=== PATIENT | male | born 1945 | race Caucasian/White ===

== ENCOUNTER 2016-12-16 14:46 | Inpatient (IN) | END 2016-12-17 18:50 | disposition home or self-care (01) | DRG 812 | DX: D64.9 Anemia, unspecified (principal); C93.10 Chronic myelomonocytic leukemia not having achieved remission; D69.6 Thrombocytopenia, unspecified; E87.6 Hypokalemia; E86.0 Dehydration; R53.1 Weakness; E78.5 Hyperlipidemia, unspecified ==

== ENCOUNTER 2016-12-23 12:55 | Inpatient (IN) | payer BC ==
[~2016-12-23] VITALS: Ht 182.9 cm; Wt 65.8 kg
[2016-12-23 09:20] VITALS: RESP 28
[~2016-12-23 12:55] MED LIST: HYDR-902 PO; REVLIMID 10MG PO; SUCCINYLCHOLINE CHLORIDE 100 MG/5 ML SYG IV ONE
[2016-12-23] MEDS ORDERED: LENA20CA PO (14:35)
[2016-12-23] MEDS ORDERED: ALBUTEROL 0.5% (NEB) 2.5 MG/0.5 ML AMP INH STA (14:46)
[2016-12-23] MEDS ORDERED: SOD CHLORIDE 0.9% 1,000 ML IV STA (14:46)
[2016-12-23] MEDS ORDERED: AZITHROMYCIN 500MG/NS (PMX) 250 ML IVPB ONE (15:00)
[2016-12-23] MEDS ORDERED: CEFEPIME 1GM/50 ML (PMX) 50 ML IVPB ONE (15:00)
--- NOTE | 2016-12-23 15:22 | RADRPT ---
PROCEDURE: XR Chest 1 View. CLINICAL INDICATION: Shortness of breath TECHNIQUE: AP view of the chest were obtained. COMPARISON: December 16, 2016 FINDINGS: The heart size is within normal limits. Calcified atherosclerosis is noted in the aorta. The lungs are hyperexpanded. Diffuse interstitial prominence is seen in both lungs. Scattered nodules in the right upper lobe measuring up to approximately 16 mm are stable. Mild potential alveolar infiltrat es in the left lower lobe have developed. The osseous structures are osteopenic, but appear grossly intact. IMPRESSION: Calcified atherosclerosis in the aorta. Hyperexpanded lungs with stable interstitial prominence in both lungs. Interstitial prominence may be chronic. Stable nodular densities in the right upper lobe. These may reflect lung nodules. Further characte rization with CT chest is recommended. Mild potential alveolar infiltrates in the left lower lobe. RPTAT: AA .Nik Loja MD, Date Time Electronically viewed and signed by .Nik Loja MD, MD on 12/23/2016 15:22 .P/
[2016-12-23 15:47] LABS: HEMATOCRIT 23.9 % (42.0-52.0); HEMOGLOBIN 7.7 g/dl (14.0-18.0); INR 1.29; MEAN CORPUSCULAR HEMOGLOBIN 25.4 pg (29.0-33.0); MEAN CORPUSCULAR HGB CONC 32.2 g/dl (32.0-37.0); MEAN CORPUSCULAR VOLUME 78.8 fl (82.0-101.0); PROTIME 16.2 Sec (12.2-14.2); PT RATIO 1.3; RED BLOOD COUNT 3.03 10^6/ul (4.70-6.10); RED CELL DISTRIBUTION WIDTH 18.2 % (11.5-14.5); UNCORRECTED WBC 16.3 10^3/ul (4.8-10.8)
--- NOTE | 2016-12-23 15:50 | ERA ---
ER Documentation Chief Complaint Date/Time DATE: 12/23/16 TIME: 15:44 Chief Complaint sob x 5 days HPI 71-year-old man brought in by son for cough, shortness of breath, and congestion for about 1 week. Symptoms began shortly after discharge from this hospital, he was admitted over a week ago for severe anemia and thrombocytopenia. He denies dizziness or loss of consciousness, no chest pain, no calf or leg swelling, no vomiting or diarrhea. Patient has had no headaches , blurry vision, or focal deficits ROS All systems reviewed and are negative except as per history of present illness. Medications Home Meds Reported Medications Lenalidomide (REVLIMID) 20 Mg Capsule, 10 MG PO DAILY, CAP 12/23/16 Discontinued Reported Medications [Revlimid 10MG] No Conflict Check, 10 MG PO DAILY 12/16/16 Hydrocodone/Acetaminophen ([place] 10-325 Tablet) 1 Each Tablet, 1 EACH PO Q3H, TAB 12/16/16 Discontinued Scripts Metformin Hcl* (Metformin Hcl*) 500 Mg Tablet, 500 MG PO WITH BREAKFAST DINNE, # 30 TAB Prov:KERRY SANTO V. PIPEL[employer] EXECUTIVE 04/17/16 Atorvastatin Calcium (Atorvastatin Calcium) 20 Mg Tablet, 10 MG PO HS for 30 Days, TAB Prov:SANTOKERRY V. PIPELINE EXECUTIVE 04/17/16 Pantoprazole* (Pantoprazole*) 40 Mg Tablet.dr, 40 MG PO BID@06,18 for 30 Days Prov:KERRY SANTO V. PIPEL[employer] EXECUTIVE 04/16/16 Fluconazole* (Fluconazole*) 200 Mg Tablet, 200 MG PO DAILY for 14 Days, TAB Prov:KERRY SANTO V. PIPEL[employer] EXECUTIVE 04/16/16 Allergies Allergies: Coded Allergies: No Known Allergy (Unverified , 12/16/16) PMhx/Soc Chronic myelomonocytic leukemia postchemotherapy, hypertension, recurrent anemia , left bundle branch block History of Surgery: Yes (stomach) Anesthesia Reaction: No Hx Neurological Disorder: No Hx Respiratory Disorders: No Hx Cardiac Disorders: No Hx Psychiatric Problems: No Hx Miscellaneous Medical Probl: Yes (Cancer in the blood) Hx Alcohol Use: No Hx Substance Use: No Hx Tobacco Use: Yes Smoking Status: Never smoker FmHx Family History: No diabetes Physical Exam Vitals Vital Signs Date Time Temp Pulse Resp B/P Pulse Ox O2 Delivery O2 Flow Rate FiO2 12/23/16 17:35 110 28 101/85 100 Mechanical Ventilator 12/23/16 17:20 98 28 111/63 100 Mechanical Ventilator 12/23/16 15:52 135 28 158/108 95 Mask 15.0 12/23/16 15:02 105 28 98 Nasal Cannula 4.0 12/23/16 14:40 3.0 12/23/16 12:59 98.1 118 28 100/62 96 Physical Exam GENERAL: Well-developed, well-nourished, well-hydrated, in no apparent distress , looks nontoxic in appearance HEENT: Moist mucous membranes, positive nasal congestion and rhinorrhea, pink conjunctiva, no cervical spine tenderness or step-off deformities, no goiter, no jaundice or icterus, extraocular movements intact without pain. No submandibular induration, and no pharyngeal erythema NEURO: Alert and oriented 3, cranial nerves II through XII intact bilaterally, pupils equal round reactive to light, no focal deficits or facial asymmetry, sensation intact distally Strength 5/5 in upper and lower extremities bilaterally CARDIAC: Tachycardic and regular, no murmurs rubs or gallops LUNGS: Dense wheezing bilaterally with left lower crackles, no stridor ABDOMEN: Soft nontender, no guarding, no rigidity, no rebound, no psoas sign no obturator sign. Normoactive bowel sounds SKIN: Warm and dry to touch, no abrasions, contusions, or hematomas, no lacerations, no ecchymosis, no target lesions, and without ulcers EXTREMITIES: No clubbing cyanosis or edema, calves are bilaterally symmetrical, no Homans sign, no popliteal cord sign. Distal pulses equal and bilateral PSYCH: Normal affect without agitation or irritability Result Diagram: 12/23/16 1700 12/23/16 1520 Results 24 hrs Laboratory Tests Test 12/23/16 15:20 12/23/16 15:55 12/23/16 16:27 12/23/16 17:00 Alanine Aminotransferase (ALT/SGPT) 17IU/L Albumin 3.2g/dl Albumin/Globulin Ratio 0.64 Alkaline Phosphatase 84IU/L Anion Gap 21 Anisocytosis 1+ Aspartate Amino Transf (AST/SGOT) 30IU/L Band Neutrophils % 4.0% Basophils # 10^3/ul Basophils % % Blast Cells % 3.0% Blastocytes # 0.5 Blood Morphology Comment Blood Urea Nitrogen 37mg/dl Calcium Level 7.8mg/dl Carbon Dioxide Level 25mmol/L Chloride Level 97mmol/L Creatinine 2.16mg/dl Direct Bilirubin 0.00mg/dl Eosinophils # 10^3/ul Eosinophils % % Globulin 5.00g/dl Glucose Level 155mg/dl Hematocrit 23.9% 22.9% Hemoglobin 7.7g/dl 7.3g/dl Hypochromasia 1+ INR International Normalized Ratio 1.29 Indirect Bilirubin 0.3mg/dl Lipase 19U/L Lymphocytes # 1.810^3/ul Lymphocytes % 11.0% Mean Corpuscular Hemoglobin 25.4pg Mean Corpuscular Hemoglobin Concent 32.2g/dl Mean Corpuscular Volume 78.8fl Mean Platelet Volume 8.3fl Metamyelocytes # 1.3 Metamyelocytes % 8.0% Microcytosis 1+ Monocytes # 2.410^3/ul Monocytes % 15.0% Myelocytes # 3.4 Myelocytes % 21.0% Neutrophils # 6.210^3/ul Neutrophils % 38.0% Nucleated Red Blood Cells # 10^3/ul Nucleated Red Blood Cells % 2.0/100WBC Platelet Count 1410^3/UL Platelet Estimate PLT APPEAR DECREASED Potassium Level 3.7mmol/L Prothrombin Time 16.2Sec Prothrombin Time Ratio 1.3 Red Blood Count 3.0310^6/ul Red Cell Distribution Width 18.2% Sodium Level 139mmol/L Tear Drop Cells 1+ Total Bilirubin 0.3mg/dl Total Protein 8.2g/dl Troponin I 0.013ng/ml 0.023ng/ml White Blood Count 16.310^3/ul Urine Amorphous Urates MODERATE Urine Bacteria MODERATE Urine Bilirubin NEGATIVE Urine Clarity SLIGHTLY CLOUDY Urine Color LT. YELLOW Urine Glucose NEGATIVE% Urine Hemoglobin 2+ Urine Hyaline Casts FEW Urine Ketones NEGATIVE Urine Leukocyte Esterase NEGATIVE Urine Microscopic RBC 0-2/HPF Urine Microscopic WBC 0-2/HPF Urine Nitrite NEGATIVE Urine Specific [place] 1.025 Urine Total Protein 1+ Urine Uric Acid Crystals FEW Urine Urobilinogen 0.2 E.U./dL Urine pH 5.0 Arterial Blood HCO3 21.5mmol/L Arterial Blood Base Excess -14.2mmol/L Arterial Blood Oxygen Saturation 63.1mmHG Dar Test N/A Arterial Blood Gas Puncture Site Right Brachial Arterial Blood Carboxyhemoglobin 0% Arterial Blood Date Drawn 12/23/2016 4:30:05 PM Arterial Blood Methemoglobin 0.8% Arterial Blood pCO2 (Temp correct) 159.1mmhg Arterial Blood pH (Temp corrected) 6.748 Arterial Blood pO2 (Temp corrected) 63.1mmHG Blood Gas A-a O2 Differential 490.8mmHg Blood Gas Critical Value Read Back DR. GUTIERREZ Blood Gas Modality AMBU BAG Blood Gas Notified Time 12/23/2016 4:37:49 PM Blood Gas Notified Whom Pedro Luis Blood Gas Specimen Source Blood arterial Blood Gas Temperature 37.0C FiO2 100.0% Oxyhemoglobin Percent 62.6% Total Hemoglobin 8.2g/dl Lactate Dehydrogenase 1065IU/L Current Medications Medications (Trade) Dose Ordered Sig/Sandra Route PRN Reason Start Time Stop Time Status Last Admin Dose Admin Sodium Chloride (NS) 1,000 ml @ 1,000 mls/hr Q1H STAT IV 12/23/16 14:46 12/23/16 15:45 DC 12/23/16 15:01 Albuterol 10 mg 10 mg ONCE STAT INH 12/23/16 14:46 12/23/16 14:51 DC 12/23/16 15:01 Azithromycin 250 ml @ 250 mls/hr ONCE ONCE IVPB 12/23/16 15:00 12/23/16 15:59 DC 12/23/16 15:52 Cefepime HCl (Maxipime 1gm/50 ml (Pmx)) 50 ml @ 100 mls/hr ONCE ONCE IVPB 12/23/16 15:00 12/23/16 15:29 DC 12/23/16 15:01 Lorazepam (Ativan) 0.5 mg ONCE ONCE IV 12/23/16 16:00 12/23/16 16:01 DC 12/23/16 15:48 Enalaprilat (Vasotec Iv) 1.25 mg ONCE ONCE IV 12/23/16 16:00 12/23/16 16:01 DC Lorazepam (Ativan) 1 mg ONCE ONCE IV 12/23/16 16:30 12/23/16 16:31 DC 12/23/16 17:08 Oseltamivir Phosphate 75 mg 75 mg ONCE ONCE PO 12/23/16 16:30 12/23/16 16:31 DC 12/23/16 17:35 Sodium Chloride (NS) 1,000 ml @ 75 mls/hr [id number] IV 12/23/16 16:30 Ondansetron HCl (Zofran Inj) 4 mg Q6H PRN IV NAUSEA AND/OR VOMITING 12/23/16 16:30 Albuterol (Proventil 0.5% (Neb)) 2.5 mg Q4H RESP THERAPY NEB 12/23/16 17:00 Ipratropium [place] (Atrovent 0.02% (Neb)) 0.5 mg Q4H RESP THERAPY NEB 12/23/16 17:00 Nitroglycerin (Nitroglycerin (Sl Tab) 0.4 Mg) 1 tab Q5M PRN SL CHEST PAIN 12/23/16 16:30 Acetaminophen (Tylenol Supp) 650 mg Q4H PRN [place] PAIN LEVEL 1-3 OR FEVER 12/23/16 16:30 Morphine Sulfate (morphine) 2 mg Q4H PRN IV PAIN LEVEL 7-10 12/23/16 16:30 Lorazepam (Ativan) 1 mg Q2H PRN IV ANXIETY 12/23/16 16:30 Bisacodyl (Dulcolax) 5 mg DAILY PRN PO CONSTIPATION 12/23/16 16:30 Pantoprazole 40 mg 40 mg DAILY@06 IV 12/24/16 06:00 Sodium Chloride 1,000 ml @ 1,000 mls/hr Q1H IV 12/23/16 16:30 12/23/16 18:29 12/23/16 17:11 Cefepime HCl (Maxipime 2gm/50 ml (Pmx)) 50 ml @ 100 mls/hr Q12 IVPB 12/23/16 22:00 Vancomycin HCl (Vanco Iv Per Pharmacy) 1 ea Per Rx Protocol XX 12/23/16 16:30 Oseltamivir Phosphate 75 mg 75 mg Q12 PO 12/23/16 21:00 12/28/16 21:00 Sodium Chloride (NS) 250 ml @ 0 mls/hr Q0M ONCE IV* 12/23/16 16:46 12/23/16 17:03 DC Furosemide (Lasix) 20 mg ONCE IV 12/23/16 17:00 12/24/16 16:59 12/23/16 17:13 Lorazepam 2 mg 2 mg ONCE ONCE IV 12/23/16 17:30 12/23/16 17:31 DC 12/23/16 17:12 Midazolam HCl 50 ml @ 3 mls/hr ONCE STAT IV 12/23/16 17:07 12/24/16 09:46 12/23/16 17:23 Vancomycin HCl 1.5 gm/Sodium Chloride 250 ml @ 83.333 mls/ hr ONCE IVPB 12/23/16 18:00 12/23/16 20:59 Vancomycin HCl (Vancocin) 250 ml @ 125 mls/hr Q24H IVPB 12/24/16 18:00 Procedures/MDM IV line was established patient was placed on search engine optimizer rhythm strip revealed a wide-complex tachycardia at about 110 bpm. Patient was afebrile. I administered albuterol 10 mg via nebulizer for shortness of breath and wheezing. Given his recent inpatient hospitalization and cough I treated him here with cefepime 1 g IV and azithromycin 500 mg IV. One view chest x-ray performed, read by me revealed a left-sided infiltrate in the lower lobe, no pneumothorax, no end of the diaphragm. EKG performed, read by me revealed a sinus tachycardia at 106 bpm, left axis deviation and a left bundle branch block. No concerning ST elevations or depressions noted. I administered 1 L normal saline intravenously and lorazepam 0.5 mg IV for agitation. For possible healthcare associated pneumonia patient also received cefepime 1 g IV and azithromycin 500 mg IV. CBC reveals a leukocytosis at 16 and anemia with hematocrit of 24, electrolytes revealed dehydration with a BUN/creatinine of 37/2.2, liver function tests were unremarkable, troponin was negative. Influenza A was positive, B was negative. I did order Tamiflu 75 mg per rectum. Urine analysis was unremarkable. For continued agitation patient was given another dose of lorazepam 1 mg IV. Despite above interventions patient had continued dyspnea and hypoxia and I spoke to the patient's son who is at the bedside regarding intubation which he agreed to. We discussed the risks associated with intubation and its indication at this time. Preintubation ABG was performed, revealed a pH of 6.75, PCO2 159, PO2 63 revealing severe respiratory alkalosis and hypoventilation. Endotracheal Intubation by me: Pre assessment performed. See preceding note for details. Pre-oxygenation performed with 100% oxygen RSI: Performed w/o complication or hypoxic events. Medications as ordered. Blade: Mac 4 ET Tube: 7.4 cm Depth: 21 cm at the lip Intubation confirmed by colorimetric CO2, equal breath sounds, quiet over the stomach. Chest X-ray 1V Interpreted by me: 4 cm above the errol ET tube. Normal soft tissue, No pneumothorax. Positive left lower lobe infiltrate Critical Care: Time: 35 minutes, this was time separate from other procedures. Treatments/Evaluations: Close monitoring and treatment of unstable vital signs, cardiorespiratory, and neurologic status, while maintaining tight balance of fluid, respiratory, and cardiac interventions. Patient was kept sedated with the Lorazepam bolus post intubation followed by Versed drip. Patient has been treated here with IV antibiotics and Tamiflu, further imaging, testing, and transfusions to be deferred to inpatient managing team. NG tube placement will be deferred at this time as I have no acute indication for its placement and patient has critically low platelet levels, this may be best deferred until after platelet transfusion therapy. Departure Diagnosis: Primary Impression: Pneumonia Qualified Code: J18.9 - Pneumonia of left lower lobe due to infectious organism Additional Impressions: CMML (chronic myelomonocytic leukemia) Qualified Code: C93.12 - Chronic myelomonocytic leukemia, in relapse Respiratory failure Qualified Code: J96.01 - Acute respiratory failure with hypoxia and hypercapnia Influenza A Condition: Serious PAUL GUTIERREZ MD Dec 23, 2016 15:50
[2016-12-23 15:57] LABS: ALBUMIN 3.2 g/dl (3.3-4.9)
[2016-12-23 15:58] LABS: POTASSIUM 3.7 mmol/L (3.5-5.1)
[2016-12-23 16:00] LABS: ALBUMIN/GLOBULIN RATIO 0.64; BILIRUBIN,INDIRECT 0.3 mg/dl (0-1.1); BILIRUBIN,TOTAL 0.3 mg/dl (0.2-1.3); CALCIUM 7.8 mg/dl (8.4-10.2); CREATININE 2.16 mg/dl (0.61-1.24); TOTAL PROTEIN 8.2 g/dl (6.1-8.1)
[2016-12-23] MEDS ORDERED: ENALAPRILAT 1.25 MG INJ IV ONE (16:00)
[2016-12-23] MEDS ORDERED: LORAZEPAM 2 MG INJ IV ONE ×3 (16:00→17:30)
[2016-12-23 16:08] LABS: CONDITION 1; LH ANALYZER COMMENTS 1; MEAN PLATELET VOLUME 8.3 fl (7.4-10.4); PLATELET COUNT 14 10^3/UL (140-440); SUSPECT 1
[2016-12-23 16:13] LABS: TROPONIN-I 0.013 ng/ml (0.00-0.12)
[2016-12-23] MEDS ORDERED: OSELTAMIVIR 75 MG CAP PO ONE (16:30)
[2016-12-23] MEDS ORDERED: BISACODYL (EC) 5 MG TAB PO PRN (16:30)
[2016-12-23] MEDS ORDERED: ONDANSETRON 4 MG INJ IV PRN (16:30)
[2016-12-23] MEDS ORDERED: NITROGLYCERIN (SL) 0.4 MG TAB SL PRN (16:30)
[2016-12-23] MEDS ORDERED: VANCOMYCIN IV PER PHARMACY XX SCH (16:30)
[2016-12-23 16:32] LABS: ADD UMIC YES; URINE BILIRUBIN (Dip) NEGATIVE (NEGATIVE); URINE BLOOD (Dip) 2+ (NEGATIVE); URINE COLOR LT. YELLOW (YELLOW); URINE GLUCOSE (Dip) NEGATIVE (NEGATIVE); URINE KETONES (Dip) NEGATIVE (NEGATIVE); URINE LEUKOCYTE ESTERASE (Dip) NEGATIVE (NEGATIVE); URINE NITRITE (Dip) NEGATIVE (NEGATIVE); URINE TOTAL PROTEIN (Dip) 1+ (NEGATIVE); URINE UROBILINOGEN (Dip) 0.2 E.U./dL (0.1-1.0)
[2016-12-23] MEDS ORDERED: SOD CHLORIDE 0.9% 250 ML IV* ONE (16:46)
[2016-12-23 16:50] LABS: BACTERIA,URINE MODERATE; URIC ACID CRYSTALS,URINE FEW; URINE RBCS 0-2 /HPF (0)
[2016-12-23] MEDS ORDERED: IPRATROPIUM (NEB) 0.5 MG/2.5 ML AMP NEB SCH (17:00)
[2016-12-23] MEDS ORDERED: ALBUTEROL 0.5% (NEB) 2.5 MG/0.5 ML AMP NEB SCH (17:00)
[2016-12-23] MEDS ORDERED: FUROSEMIDE 40 MG INJ IV SCH (17:00)
--- NOTE | 2016-12-23 17:03 | HP ---
Date/Time of Note Date/Time of Note DATE: 12/23/16 TIME: 16:51 Assessment/Plan VTE Prophylaxis VTE Prophylaxis Intervention: contraindicated VTE Contraindication Reason: bleeding, thrombocytopenia Assessment/Plan Assessment/Plan 71 yo male with a past medical history of CML on chemotherapy, MDS, GERD, COPD, Anemia of chronic disease, who presents with acute shortness of breath for the last four days. 1. Sepsis 2/2 to Influenza Pneumonia - possible need for emergent intubation - will admit the patient to the ICU, consult pulm, palliative care, and Dr. Pryor who knows the patient, oral tamiflu via NGT, IV antibiotics broad spectrum, respiratory cultures 2. Acute hypoxemic respiratory failure - continue with supplemental O2, intubation if needed, ABG in am, CXR in am, V/Q scan to rule out PE 3. Severe thrombocytopenia - replete 4. Acute on chronic renal failure - 2/2 to sepsis - IVF - renally adjust medications, avoid nephrotoxins 5. Anemia - of chronic disease - CA - will transfuse 2 units PRBCS, check serial H/H q6h 6. CML on chemo - continue with hem/onc recs 7. CHF with diastolic heart failure - consult cardiology, rule out ACS, recent ECHO EF 45%, diastolic dysfunction 8. COPD - see #1 9. GERD - continue with IV protonix 10. Smoking abuse - advised patient on cessation 11. GI ppx - protonix 12. DVT ppx - contraindicated for anticoagulation - monitor acute changes answered all of the questions. as per clinical course. this critical care note took greater than 1 hour to complete HPI/ROS Admit Date/Time Admit Date/Time 12/23/2016, 4:51 pm Hx of Present Illness 71 yo male with a past medical history of CML on chemotherapy, MDS, GERD, COPD, Anemia of chronic disease, who presents with acute shortness of breath for the last four days. As per the son, who was present at bedside, the shortness of breath has progressively gotten worse. He did get his last oral chemotherapeutic agent yesterday. Since then, the patient has had chills, nausea , and vomiting NBNB x 4. He also has intermittent epistaxis. Denies any chest pain, loss of consciousness, headaches, urinary/bowel irregularities, or other constitutional symptoms. Patient was just here on 12/17/2016 for chest pain and anemia. He did get transfused blood products at that time. ED course: breathing treatments, IV antibiotics, supplemental O2 ECHO 12/17/2016 Conclusions 1. Normal left ventricular systolic function. Normal left ventricular cavity size. Normal left ventricular wall thickness. Ejection fraction is visually estimated at 45-50 %. Tissue Doppler/Mitral Doppler indices are consistent with impaired relaxation (Stage I diastolic dysfunction). These segments of the LV are hypokinetic apical septum. 2. There is mild enlargement of left atrium. 3. Moderate mitral valve regurgitation. 4. Aortic sclerosis without stenosis. Trace aortic valve regurgitation. 5. Estimated peak PA systolic pressure 42 mmHg. 6. There is mild to moderate tricuspid regurgitation. 7. Small pericardial effusion. ROS 14 point review of systems completed, please refer to HPI for any positive findings PMH/Family/Social Past Medical History anemia of chronic disease, COPD Medical History: cancer (CML), GERD Past Surgical History Past Surgical Hx: bowel resection Family History Significant Family History: no pertinent family hx, heart disease (none), COPD (none), diabetes (none) Social History Alcohol Use: none Smoking Status: Current every day smoker Drug Use: none Exam/Review of Systems Vital Signs Vitals Vital Signs Date Time Temp Pulse Resp B/P Pulse Ox O2 Delivery O2 Flow Rate FiO2 12/23/16 15:52 135 28 158/108 95 Mask 15.0 12/23/16 12:59 98.1 Exam Exam Gen [place]: moderate - severe respiratory distress, AAOx4 HEENT: NC/AT, PERRLA, EOMI, no pharyngeal erythema, no tonsillar exudates, no lymphadenopathy, no JVD, no carotid bruits, mild epistaxis noted NECK: supple, no thyromegaly THORAX: symmetrical, no obvious deformities CV: S1S2, tachycardiac, no M/G/R Lungs: coarse breath sounds throughout all lung masters, diminished at the bases , with end expiratory wheezing, increased accessory muscle use Abd: soft, NT/ND, +BS, no rebound, no guarding, neg HSM, scaphoid EXT: no edema, no ecchymosis, no clubbing, FROM, muscle wasting noted Neuro: CN II-XII grossly intact, no focal deficits Psych: anxious Skin: cool and clammy Labs Result Diagram: 12/23/16 1520 12/23/16 1520 Medications Medications Current Medications Sodium Chloride (NS) 1,000 ml @ 75 mls/hr [id number] IV ; Start 12/23/16 at 16:30; Status UNV Ondansetron HCl (Zofran Inj) 4 mg Q6H PRN IV NAUSEA AND/OR VOMITING; Start 12/23 at 16:30; Status UNV Nitroglycerin (Nitroglycerin (Sl Tab) 0.4 Mg) 1 tab Q5M PRN SL CHEST PAIN; Start 12/23/16 at 16:30; Status UNV Acetaminophen (Tylenol Supp) 650 mg Q4H PRN [place] PAIN LEVEL 1-3 OR FEVER; Start 12/23/16 at 16:30; Status UNV Morphine Sulfate (morphine) 2 mg Q4H PRN IV PAIN LEVEL 7-10; Start 12/23/16 at 16:30; Status UNV Lorazepam (Ativan) 1 mg Q2H PRN IV ANXIETY; Start 12/23/16 at 16:30; Status UNV Bisacodyl (Dulcolax) 5 mg DAILY PRN PO CONSTIPATION; Start 12/23/16 at 16:30; Status UNV Pantoprazole 40 mg 40 mg DAILY@06 IV ; Start 12/24/16 at 06:00; Status UNV Sodium Chloride 1,000 ml @ 1,000 mls/hr Q1H IV ; Start 12/23/16 at 16:30; Stop 12/23/16 at 18:29; Status UNV Cefepime HCl (Maxipime 2gm/50 ml (Pmx)) 50 ml @ 100 mls/hr Q8 IVPB ; Start 12/23 at 22:00; Status UNV Oseltamivir Phosphate 75 mg 75 mg Q12 PO ; Start 12/23/16 at 21:00; Stop at 21:00; Status UNV Sodium Chloride (NS) 250 ml @ 0 mls/hr Q0M ONCE IV* ; Start 12/23/16 at 16:46; Stop 12/23/16 at 16:47; Status UNV Furosemide (Lasix) 20 mg ONCE IV ; Start 12/23/16 at 17:00; Stop 12/24/16 at 16:59 ; Status UNV HUMA THAKKAR MD Dec 23, 2016 17:02
[2016-12-23] MEDS ORDERED: MIDAZOLAM (DRIP) 50 mg/50 mL 50 ML IV STA (17:07)
[2016-12-23] MEDS: SOD CHLORIDE 0.9% 1,000 ML IV SCH ×3 (17:11→18:25)
[2016-12-23 17:14] LABS: HEMATOCRIT 22.9 % (42.0-52.0); HEMOGLOBIN 7.3 g/dl (14.0-18.0)
[2016-12-23 17:35] LABS: ANISOCYTOSIS 1+; HYPOCHROMASIA 1+; LYMPHOCYTES # 1.8 10^3/ul (0.8-2.9); MICROCYTOSIS 1+; MONOCYTE # 2.4 10^3/ul (0.3-0.9); MYELOCYTES # 3.4; NEUTROPHIL # 6.2 10^3/ul (1.6-7.5)
[2016-12-23 17:36] LABS: PLATELET ESTIMATE PLT APPEAR DECREASED; POIKILOCYTOSIS 1+; TEAR DROP CELLS 1+
--- NOTE | 2016-12-23 17:43 | RADRPT ---
PROCEDURE: XR Chest. CLINICAL INDICATION: Post intubation. TECHNIQUE: Single frontal view of the chest was obtained COMPARISON: Chest x-ray 12/23/2016 III L 04:00 p.m. FINDINGS: Since the prior study perihilar and basilar interstitial and alveolar infiltrates have developed. T he heart is enlarged. No pleural effusion is noted. There are vascular calcifications in the aorti c arch. There is a poorly defined density suspicious for a mass in the right upper lobe measuring 1 .6-1.7 cm in transverse diameter. There is additional reticular scarring in the right upper lobe wi th right apical pleural scarring. These findings are likely the result of TB. There is left apical pleural scarring. There are vascular calcifications in the aortic arch. There are degenerative davis ges in the thoracic spine. IMPRESSION: 1. Interval development of a asymmetric interstitial and alveolar infiltrates greater in the left lo wer lung field than right. Asymmetric pulmonary edema might present this fashion and is considered most likely. A pneumonia is not excluded. TB skin testing and sputum evaluation is recommended. 2. 1.7 cm density in the lower periphery of the right upper lobe at the site of a pulmonary nodule seen on 12/23/2016 at 04:42 p.m. suspicious for a granuloma. Additional reticular scarring is noted in the right upper lobe associated with bilateral pleural scarring. 3. Atherosclerotic vascular disease. 4. An endotracheal tube is well-positioned at T5. 5. Findings were phoned to the emergency room to Dr. Luciano. RPTAT:AAJJ Physician Nell Date Time Electronically viewed and signed by Ravi Knapp Physician on 12/23/2016 17:43 JOSEPH/
[2016-12-23 17:46] LABS: AADO2 Arterial 490.8 mmHg (7.0-24.0); Arterial Base Excess -14.2 mmol/L (-3.0-3); Arterial COHb 0 % (0.0-3.0); Arterial Fraction of Oxyhgb 62.6 % (93.0-99.0); Arterial HCO3 21.5 mmol/L (22.0-26.0); Arterial MetHb 0.8 % (0.0-1.5); Arterial Total Hemglobin 8.2 g/dl (12.0-18.0); MODE AMBU BAG
[2016-12-23] MEDS ORDERED: VANCOMYCIN 1.5 GM in SOD CHLORIDE 0.9% 250 ML IVPB SCH (18:00)
[2016-12-23 18:20] LABS: AADO2 Arterial 336.5 mmHg (7.0-24.0); Arterial Base Excess -10.1 mmol/L (-3.0-3); Arterial COHb 0.3 % (0.0-3.0); Arterial Fraction of Oxyhgb 97.7 % (93.0-99.0); Arterial HCO3 19.6 mmol/L (22.0-26.0); Arterial MetHb 1.1 % (0.0-1.5); Arterial Total Hemglobin 7.8 g/dl (12.0-18.0); MODE VENT - AC
--- NOTE | 2016-12-23 19:57 | CONS ---
DATE OF ADMISSION: 12/23/2016 DATE OF CONSULTATION: 12/23/2016 REASON FOR CONSULTATION: Possible congestive heart failure. REQUESTING PHYSICIAN: Dr. Doyle HISTORY OF PRESENT ILLNESS: Mr. Townsend is a 71-year-old male with a history of cardiomyopathy with mildly depressed left ventricular ejection fraction by echo 11/2016 with an EF of 45% to 50%, moderate mitral regurgitation, mild to moderate tricuspid regurgitation, CML, chronic obstructive pulmonary disease, ongoing tobacco usage, who initially presented with shortness of breath for 4 days. Upon arrival, temperature 98.1, blood pressure 100/62, pulse 118 respiratory rate 20, saturating 96%. The patient's labs revealed a white count 16.3, hemoglobin of 7.7, platelet count of 14. Sodium 139, potassium 3.7, creatinine 2.1, BUN of 37. Troponin negative. INR of 1.3. The patient underwent a chest x-ray revealing calcified atherosclerosis in the aorta, hyperventilated lung, stable interstitial prominence of both lungs, nodular densities in the right upper lobe, mild potentially alveolar infiltrates in the left lower lobe with a followup chest x-ray with interval development of asymmetric interstitial alveolar infiltrates greater the left lower lung than right, asymmetric pulmonary edema. Additionally, the patient has been found to be influenza positive. The patient has now required intubation and awaits admit to the hospital after being treatment with Tamiflu. PAST MEDICAL HISTORY: As above in HPI. MEDICATIONS CURRENTLY IN HOSPITAL: 1. Vancomycin. 2. Protonix. 3. Cefepime IV q.12h. 4. Tamiflu 75 mg q.12h. 5. Midazolam. 6. Atrovent. 7. Albuterol. 8. Lasix 20 mg x1. 9. Nitroglycerin. 10. IV fluid hydration at 75 mL an hour. ALLERGIES: NO KNOWN DRUG ALLERGIES. SOCIAL HISTORY: Positive tobacco, social ETOH, no illicit drug use. FAMILY HISTORY: No history of sudden cardiac or early CAD. REVIEW OF SYSTEMS: As above in HPI. CONSTITUTIONAL: No fevers, chills. PULMONARY: Shortness of breath, respiratory failure. CARDIOVASCULAR: Possible congestive heart failure, cardiomyopathy. GASTROINTESTINAL: No vomiting. GENITOURINARY: No hematuria. MUSCULOSKELETAL: Degenerative joint disease. PSYCHIATRIC: The patient has depression. NEUROLOGIC: No documented history of CVA. PHYSICAL EXAMINATION: VITAL SIGNS: Temperature of 98.1, blood pressure most recent 110/55, pulse 111 , satting 100%. GENERAL: The patient is intubated and sedated. NECK: JVP approximately 9 cm of water. CHEST: Upper airway transmitted rhonchorous sounds. HEART: Tachycardic, regular rhythm, normal S1, S2, I/ systolic murmur. ABDOMEN: Positive bowel sounds, soft. EXTREMITIES: Trace edema, 1+ pulses bilaterally, posterior tibial. LABORATORIES: As above in HPI, with most recently from today, troponin negative x2. IMAGING STUDIES: As above in HPI. No further imaging studies for my review at this time. IMPRESSION: 1. Respiratory failure, assess for congestive heart failure. 2. Cardiomyopathy with decreased left ventricular ejection fraction, last being approximately 45% to 50% by echo 11/2016. 3. Hypotension, borderline. 4. Influenza positive. 5. History of chronic myelogenous leukemia. 6. Renal failure. 7. Thrombocytopenia, severe. 8. Anemia. 9. Leukocytosis. RECOMMENDATIONS: 1. At this time, would maintain patient intubated and admit to the ICU and telemetry monitoring. Agree with gentle Lasix diuresis as tolerated. 2. Complete a rule out for myocardial infarction to ensure the patient's constellation of symptoms are not due to any recent acute coronary syndrome, such as an acute myocardial infarction. 3. Continue the patient's current Tamiflu and broad-spectrum antibiotics and follow up all culture data. 4. Additionally, check a fasting lipid panel for general risk stratification and check a BNP to further assess the patient's current volume status and will additionally continue to check serial EKGs to assess for significant ongoing changes. Thus, repeat EKG in morning, EKG for any complaints of chest pain or changes in rhythm. Thank you for allowing me to take part in the care of this patient. I will continue to follow very closely with you with further recommendations to be made as the patient progresses through his inpatient hospital clinical course. Dictated By: MILENA LU/RADHA Conf#: [id number] DID#: [id number] CC: HUMA DOYLE MD;*EndCC* MTDD
[2016-12-23] MEDS: OSELTAMIVIR PHOSPHATE (6 MG/ML PO SYG) PO SCH (21:00)
[2016-12-23 21:20] VITALS: RESP 28
[2016-12-23 21:58] VITALS: PULSE 129
[2016-12-23] MEDS: PROPOFOL 100 ML IV SCH (22:04)
--- NOTE | 2016-12-23 23:02 | RADRPT ---
PROCEDURE: Portable chest x-ray. CLINICAL INDICATION: Endotracheal tube placement. TECHNIQUE: Portable AP view of the chest. COMPARISON: Chest x-ray dated 12/23/2016. FINDINGS: An endotracheal tube terminates approximately 7.3 cm above the errol. There is vascular congestion and prominent perihilar interstitial and airspace opacities, left more than right, not significantly changed. Additional nodular opacities noted in the right upper lobe, nonspecific. The cardiac brendan houette is magnified. There are aortic calcifications. No pleural effusion is seen. There is no pn eumothorax. IMPRESSION: 1. Endotracheal tube tip approximately 7.3 cm above the errol. 2. Vascular congestion, not significantly unchanged. 3. Prominent perihilar interstitial and airspace opacities, left more than right, not significantly changed. There nonspecific but might represent asymmetric pulmonary edema or multifocal pneumonia. 4. Nodular opacities in the right upper lung, nonspecific. RPTAT: HTAR .Francisco Javier Vazquez MD, MD Date Time Electronically viewed and signed by .Francisco Javier Vazquez MD, on 12/23/2016 23:02 .R/
[2016-12-23 23:06] VITALS: RESP 34
[2016-12-23 23:30] VITALS: PULSE 129; RESP 32
[2016-12-23 23:45] VITALS: BP 96/59; PULSE 129; RESP 33
[2016-12-24] VITALS (95 sets, daily range): BP systolic 84–144; BP diastolic 40–75; PULSE 95–131; RESP 22–38; Ht 182.9 cm; Wt 65.8 kg
[2016-12-24] MEDS: IPRATROPIUM (HFA) 12.9 GM INHALER INH SCH ×6 (01:42→20:28)
[2016-12-24] MEDS: ALBUTEROL HFA 8 GM INHALER INH SCH ×6 (01:42→20:28)
[2016-12-24] MEDS: CEFEPIME 2GM/50 ML (PMX) 50 ML IVPB SCH ×2 (02:04→09:00)
[2016-12-24] MEDS: SOD CHLORIDE 0.9% 1,000 ML IV SCH ×3 (05:50→20:51)
[2016-12-24] MEDS: PROPOFOL 100 ML IV SCH ×3 (06:41→19:26)
[2016-12-24] MEDS: PANTOPRAZOLE 40 MG INJ IV SCH (06:41)
--- NOTE | 2016-12-24 06:45 | RADRPT ---
PROCEDURE: Chest. CLINICAL INDICATION: Chest pain. TECHNIQUE: Single frontal view of the chest was obtained. COMPARISON: 12/23/2016. FINDINGS: There is an endotracheal tube 7.5 cm above the errol. The cardiac silhouette is enlarged. The aor tic arch is calcified. There are hazy and patchy opacities bilaterally. There are nodular densitie s within the right upper lobe. There is no pleural effusion. There is no pneumothorax. IMPRESSION: Bilateral hazy and patchy opacities could represent pulmonary edema and/or multifocal pneumonia, unc hanged. Nodular opacities within the right upper lobe, unchanged. Endotracheal tube in place. .Ramses Swan MD, MD Date Time Electronically viewed and signed by .Ramses Swan MD, on 12/24/2016 06:44 .T/
[2016-12-24 06:51] LABS: CHOL/HDL RATIO 3.2 RATIO
[2016-12-24 06:56] LABS: ALBUMIN 2.8 g/dl (3.3-4.9)
[2016-12-24 06:57] LABS: POTASSIUM 3.5 mmol/L (3.5-5.1)
[2016-12-24 06:59] LABS: BILIRUBIN,INDIRECT 0.3 mg/dl (0-1.1); BILIRUBIN,TOTAL 0.3 mg/dl (0.2-1.3); CREATININE 2.29 mg/dl (0.61-1.24)
[2016-12-24 07:00] LABS: ALBUMIN/GLOBULIN RATIO 0.59; CALCIUM 6.7 mg/dl (8.4-10.2); TOTAL PROTEIN 7.5 g/dl (6.1-8.1)
[2016-12-24 07:58] LABS: AADO2 Arterial 280.3 mmHg (7.0-24.0); Allen Test ACCEPTAB; Arterial Base Excess -3.9 mmol/L (-3.0-3); Arterial COHb 0.3 % (0.0-3.0); Arterial Fraction of Oxyhgb 95.3 % (93.0-99.0); Arterial HCO3 22.4 mmol/L (22.0-26.0); Arterial MetHb 0.7 % (0.0-1.5); MODE VENT - AC
[2016-12-24 08:01] LABS: HEMATOCRIT 25.8 % (42.0-52.0); HEMOGLOBIN 8.6 g/dl (14.0-18.0); MEAN CORPUSCULAR HEMOGLOBIN 27.6 pg (29.0-33.0); MEAN CORPUSCULAR HGB CONC 33.1 g/dl (32.0-37.0); MEAN CORPUSCULAR VOLUME 83.4 fl (82.0-101.0); MEAN PLATELET VOLUME 8.2 fl (7.4-10.4); PLATELET COUNT 46 10^3/UL (140-440); RED BLOOD COUNT 3.09 10^6/ul (4.70-6.10); RED CELL DISTRIBUTION WIDTH 18.9 % (11.5-14.5); UNCORRECTED WBC 28.5 10^3/ul (4.8-10.8)
--- NOTE | 2016-12-24 08:10 | CONS ---
Date/Time of Note Date/Time of Note DATE: 12/24/16 TIME: 08:02 Assessment/Plan Assessment/Plan Additional Assessment/Plan Assessment and recommendations; 1. Patient admitted with severe pneumonia chest x-ray from today showing severe bilateral infiltrates. Next 2. CML, patient immune compromised. 3. Anemia and thrombocytopenia. Status post packed RBC and platelet transfusion. CBC from this morning is pending. 4. Renal insufficiency. 5. COPD. 6. History of CHF. 7. 2D echocardiogram showing adequate ejection fraction of around 45-50%, however the patient does have moderate TR and MR. Continue current treatment. Continue current ventilator settings. ABG was reviewed from this morning which is showing significant improvement in severe respiratory acidosis. However FiO2 will be decreased to 50%. Continue current antibiotics. Monitor platelet count as well as hematocrit. Obtain a serum cortisol level. Start tube feeding. Prognosis is guarded. Consultation Date/Type/Reason Admit Date/Time 12/23/2016, 4:51 pm Date of Consultation: Dec 24, 2016 Type of Consultation: Pulmonary/critical care Reason for Consultation 71-year-old male admitted to ICU for respiratory failure due to severe bilateral pneumonia and sepsis. History of presenting illness; 71-year-old male brought into the emergency room yesterday with a 1-2 history of increasing shortness of breath and lethargic. Upon evaluation further workup was done which revealed severe sepsis and bilateral pneumonia the patient then developed respiratory failure and had to be intubated by the ER physician. By the time I saw the patient in ICU, the patient is orally intubated, sedated and does not appear to be in any distress. History was obtained from medical records. Next Past medical history next 1. COPD. 2. History of laparotomy. 3. Thrombocytopenia. 4. Chronic renal insufficiency. 5. CHF. 6. CML, patient currently undergoing chemotherapy. 7. Anemia. Medications; were reviewed. Next Family history; noncontributory Social history; patient is an active smoker. Occupational history: currently not available. Review of systems; currently unable to be obtained. General examination; elderly male, or intubated. Currently in no distress. Next Ventilator settings; assist control of 24, tidal volume 500, PEEP of 5, 60% FiO2. Past Medical History Medical History: cancer (CML), GERD Past Surgical History Past Surgical Hx: bowel resection Social History Alcohol Use: none Smoking Status: Current every day smoker Drug Use: none Exam/Review of Systems Vital Signs Vitals Vital Signs Date Time Temp Pulse Resp B/P Pulse Ox O2 Delivery O2 Flow Rate FiO2 12/24/16 06:15 115 31 113/55 97 12/24/16 05:45 Mechanical Ventilator 12/24/16 05:15 99.4 12/24/16 05:07 60 12/23/16 16:35 15.0 Intake and Output 12/23/16 12/23/16 12/24/16 15:00 23:00 07:00 Intake Total 77.3 ml 625 ml Output Total 50 ml 445 ml Balance 27.3 ml 180 ml Exam H EENT examination; supple neck, pupils are midsize reactive to light bilaterally equally. Patient is edentulous, orally intubated. No neck masses. No lymphadenopathy. No thyromegaly. Chest examination; diminished breath sounds bilaterally. No added sounds. S1- S2 audible, no murmurs. Regular rate and rhythm. Abdomen examination; soft, there is a well-healed laparotomy scar. No organomegaly. Bowel sounds audible. Extremity examination; no peripheral edema. Pulses 1+ bilaterally. [employer] MANAGER examination; patient is sedated. Results Result Diagram: 12/23/16 1700 12/24/16 0529 Results 24 hrs Laboratory Tests Test 12/23/16 15:00 12/23/16 15:20 12/23/16 15:55 12/23/16 16:27 B-Type Natriuretic Peptide 3270 H Alanine Aminotransferase (ALT/SGPT) 17 Albumin 3.2 L Albumin/Globulin Ratio 0.64 Alkaline Phosphatase 84 Anion Gap 21 H Anisocytosis 1+ Aspartate Amino Transf (AST/SGOT) 30 Band Neutrophils % 4.0 Basophils # Basophils % Blast Cells % 3.0 H Blastocytes # 0.5 Blood Morphology Comment Blood Urea Nitrogen 37 H Calcium Level 7.8 L Carbon Dioxide Level 25 Chloride Level 97 Creatinine 2.16 H Direct Bilirubin 0.00 Eosinophils # Eosinophils % Globulin 5.00 H Glucose Level 155 Hematocrit 23.9 #L Hemoglobin 7.7 #L Hypochromasia 1+ INR International Normalized Ratio 1.29 Indirect Bilirubin 0.3 Lipase 19 L Lymphocytes # 1.8 Lymphocytes % 11.0 L Mean Corpuscular Hemoglobin 25.4 L Mean Corpuscular Hemoglobin Concent 32.2 Mean Corpuscular Volume 78.8 L Mean Platelet Volume 8.3 Metamyelocytes # 1.3 Metamyelocytes % 8.0 H Microcytosis 1+ Monocytes # 2.4 H Monocytes % 15.0 H Myelocytes # 3.4 Myelocytes % 21.0 H Neutrophils # 6.2 Neutrophils % 38.0 L Nucleated Red Blood Cells # Nucleated Red Blood Cells % 2.0 H Platelet Count 14 #*L Platelet Estimate PLT APPEAR DECREASED Potassium Level 3.7 Prothrombin Time 16.2 H Prothrombin Time Ratio 1.3 Red Blood Count 3.03 #L Red Cell Distribution Width 18.2 H Sodium Level 139 Tear Drop Cells 1+ Total Bilirubin 0.3 Total Protein 8.2 H Troponin I 0.013 White Blood Count 16.3 H Urine Amorphous Urates MODERATE Urine Bacteria MODERATE Urine Bilirubin NEGATIVE Urine Clarity SLIGHTLY CLOUDY Urine Color LT. YELLOW Urine Glucose NEGATIVE Urine Hemoglobin 2+ H Urine Hyaline Casts FEW Urine Ketones NEGATIVE Urine Leukocyte Esterase NEGATIVE Urine Microscopic RBC 0-2 Urine Microscopic WBC 0-2 Urine Nitrite NEGATIVE Urine Specific [place] 1.025 Urine Total Protein 1+ H Urine Uric Acid Crystals FEW Urine Urobilinogen 0.2 E.U./dL Urine pH 5.0 Arterial Blood HCO3 21.5 L Arterial Blood Base Excess -14.2 L Arterial Blood Oxygen Saturation 63.1 L Dar Test N/A Arterial Blood Gas Puncture Site Right Brachial Arterial Blood Carboxyhemoglobin 0 Arterial Blood Date Drawn 12/23/2016 4:30:05 PM Arterial Blood Methemoglobin 0.8 Arterial Blood pCO2 (Temp correct) 159.1 *H Arterial Blood pH (Temp corrected) 6.748 *L Arterial Blood pO2 (Temp corrected) 63.1 L Blood Gas A-a O2 Differential 490.8 H Blood Gas Critical Value Read Back DR. GUTIERREZ Blood Gas Modality AMBU BAG Blood Gas Notified Time 12/23/2016 4:37:49 PM Blood Gas Notified Whom Pedro Luis Blood Gas Specimen Source Blood arterial Blood Gas Temperature 37.0 FiO2 100.0 Oxyhemoglobin Percent 62.6 L Total Hemoglobin 8.2 L Test 12/23/16 17:00 12/23/16 17:49 12/23/16 22:50 12/24/16 00:40 Hematocrit 22.9 L Hemoglobin 7.3 L Lactate Dehydrogenase 1065 H Lactic Acid Level 2.0 3.9 H 1.4 Troponin I 0.023 0.434 *H Arterial Blood HCO3 19.6 L Arterial Blood Base Excess -10.1 L Arterial Blood Oxygen Saturation 99.1 H Dar Test N/A Arterial Blood Gas Puncture Site Right Brachial Arterial Blood Carboxyhemoglobin 0.3 Arterial Blood Date Drawn 12/23/2016 6:05:35 PM Arterial Blood Methemoglobin 1.1 Arterial Blood pCO2 (Temp correct) 68.3 H Arterial Blood pH (Temp corrected) 7.076 *L Arterial Blood pO2 (Temp corrected) 308.2 H Blood Gas A-a O2 Differential 336.5 H Blood Gas Actual Respiration Rate 27 Blood Gas Critical Value Read Back DR. GUTIERREZ Blood Gas Low PEEP Setting 5.0 Blood Gas Modality VENT - AC Blood Gas Notified Time 12/23/2016 6:20:25 PM Blood Gas Notified Whom M.D. Blood Gas Respiration Rate 24.0 Blood Gas Specimen Source Blood arterial Blood Gas Temperature 37.0 Blood Gas Tidal Volume 500.0 FiO2 100.0 Oxyhemoglobin Percent 97.7 Total Hemoglobin 7.8 L Test 12/24/16 05:29 12/24/16 07:00 Alanine Aminotransferase (ALT/SGPT) 19 Albumin 2.8 L Albumin/Globulin Ratio 0.59 Alkaline Phosphatase 82 Anion Gap 20 H Aspartate Amino Transf (AST/SGOT) 55 #H Blood Urea Nitrogen 42 H Calcium Level 6.7 L Carbon Dioxide Level 23 Chloride Level 101 Cholesterol Level 61 L Cholesterol/HDL Ratio 3.2 Creatinine 2.29 H Direct Bilirubin 0.00 Globulin 4.70 H Glucose Level 101 # HDL Cholesterol 19 L Indirect Bilirubin 0.3 LDL Cholesterol, Calculated 15 Potassium Level 3.5 Sodium Level 140 Total Bilirubin 0.3 Total Protein 7.5 Triglycerides Level 135 Arterial Blood HCO3 22.4 Arterial Blood Base Excess -3.9 L Arterial Blood Oxygen Saturation 96.3 Dar Test ACCEPTAB Arterial Blood Gas Puncture Site Right Radial Arterial Blood Carboxyhemoglobin 0.3 Arterial Blood Date Drawn 12/24/2016 7:30:16 AM Arterial Blood Methemoglobin 0.7 Arterial Blood pCO2 (Temp correct) 46.8 H Arterial Blood pH (Temp corrected) 7.298 *L Arterial Blood pO2 (Temp corrected) 96.0 Blood Gas A-a O2 Differential 280.3 H Blood Gas Actual Respiration Rate 32 Blood Gas Critical Value Read Back Vick GRAJEDA RN Blood Gas Low PEEP Setting 5.0 Blood Gas Modality VENT - AC Blood Gas Notified Time 12/24/2016 7:57:06 AM Blood Gas Notified Whom JLD Blood Gas Respiration Rate 24.0 Blood Gas Specimen Source Blood arterial Blood Gas Temperature 37.0 Blood Gas Tidal Volume 500.0 FiO2 60.0 Oxyhemoglobin Percent 95.3 Total Hemoglobin 9.0 L Medications Medications Current Medications Sodium Chloride (NS) 1,000 ml @ 75 mls/hr [id number] IV Last administered on 18:25; Admin Dose 75 MLS/HR; Start 12/23/16 at 16:30 Ondansetron HCl (Zofran Inj) 4 mg Q6H PRN IV NAUSEA AND/OR VOMITING; Start 12/23 at 16:30 Nitroglycerin (Nitroglycerin (Sl Tab) 0.4 Mg) 1 tab Q5M PRN SL CHEST PAIN; Start 12/23/16 at 16:30 Acetaminophen (Tylenol Supp) 650 mg Q4H PRN FL PAIN LEVEL 1-3 OR FEVER; Start 12/23/16 at 16:30 Morphine Sulfate (morphine) 2 mg Q4H PRN IV PAIN LEVEL 7-10; Start 12/23/16 at 16:30 Lorazepam (Ativan) 1 mg Q2H PRN IV ANXIETY; Start 12/23/16 at 16:30 Bisacodyl (Dulcolax) 5 mg DAILY PRN PO CONSTIPATION; Start 12/23/16 at 16:30 Pantoprazole 40 mg 40 mg DAILY@06 IV Last administered on 12/24/16 06:41; Admin Dose 40 MG; Start 12/24/16 at 06:00 Cefepime HCl (Maxipime 2gm/50 ml (Pmx)) 50 ml @ 100 mls/hr Q12 IVPB Last administered on 12/24/16 02:04; Admin Dose 100 MLS/HR; Start 12/23/16 at 22:00 Oseltamivir Phosphate (Tamiflu Susp) 75 mg Q12 PO ; Start 12/23/16 at 21:00; Stop 12/28/16 at 21:00 Furosemide 20 mg 20 mg ONCE IV Last administered on 12/23/16 17:13; Admin Dose 20 MG; Start 12/23/16 at 17:00; Stop 12/24/16 at 16:59 Vancomycin HCl 250 ml @ 125 mls/hr Q24H IVPB ; Start 12/24/16 at 18:00 Propofol (Diprivan) 100 ml @ 2.346 mls/ hr Q12H IV Last administered on 06:41; Admin Dose 11.73 MLS/HR; Start 12/23/16 at 22:00 MYESHA OLIVER Dec 24, 2016 08:10
[2016-12-24 08:19] LABS: CONDITION 1; LH ANALYZER COMMENTS 1; SUSPECT 1
--- NOTE | 2016-12-24 08:32 | PN ---
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 1. Sepsis 2/2 to Influenza Pneumonia - cannot start NGT until platelets elevated - consult to ID placed, IV antibiotics, possibly start amantadine if ok by ID 2. Acute hypoxemic respiratory failure - s/p intubation - severe acidosis - improving - appreciate pulm recs 3. Severe thrombocytopenia - replete - recheck 4. Acute on chronic renal failure - 2/2 to sepsis - IVF - renally adjust medications, avoid nephrotoxins, worsening, will consult renal 5. Anemia - of chronic disease - CA - will transfuse 2 units PRBCS, check serial H/H q6h - transfuse as per hem/onc 6. CML on chemo - continue with hem/onc recs 7. CHF with diastolic heart failure - consult cardiology, type II NSTEMI ? - demand ischemia, recent ECHO EF 45%, diastolic dysfunction 8. COPD - see #1 9. GERD - continue with IV protonix 10. Smoking abuse - advised patient on cessation 11. GI ppx - protonix 12. DVT ppx - contraindicated for anticoagulation - monitor acute changes dispo - f/u recs, monitor changes, prognosis is guarded - f/u palliative care consult this critical care note took greater than 1 hour to complete Subjective 24 Hr Interval Summary Free Text/Dictation Patient admitted yesterday for acute respiratory failure. He required intubation emergently. Received blood and platelets. Spoke to the nephew about the care plan. Spoke to the nurse about the care plan. 30 minutes spent. Exam/Review of Systems Vital Signs Vitals Vital Signs Date Time Temp Pulse Resp B/P Pulse Ox O2 Delivery O2 Flow Rate FiO2 12/24/16 06:15 115 31 113/55 97 12/24/16 05:45 Mechanical Ventilator 12/24/16 05:15 99.4 12/24/16 05:07 60 12/23/16 16:35 15.0 Intake and Output 12/23/16 12/23/16 12/24/16 15:00 23:00 07:00 Intake Total 77.3 ml 625 ml Output Total 50 ml 445 ml Balance 27.3 ml 180 ml Exam Gen [place]: intubated/sedated HEENT: NC/AT, PERRLA, ETT NECK: supple, no thyromegaly THORAX: symmetrical, no obvious deformities CV: S1S2, tachycardiac, no M/G/R Lungs: coarse breath sounds throughout all lung masters, diminished at the bases , with end expiratory wheezing, worsening breath sounds Abd: soft, NT/ND, +BS, no rebound, no guarding, neg HSM, scaphoid EXT: 1+ edema, no ecchymosis, no clubbing, FROM, muscle wasting noted Neuro: intubated/sedated Psych: cannot assess Skin: scattered petechiae Results Result Diagram: 12/24/16 0529 12/24/16 0529 Results 24 hrs Laboratory Tests Test 12/23/16 15:00 12/23/16 15:20 12/23/16 15:55 12/23/16 16:27 B-Type Natriuretic Peptide 3270 H Alanine Aminotransferase (ALT/SGPT) 17 Albumin 3.2 L Albumin/Globulin Ratio 0.64 Alkaline Phosphatase 84 Anion Gap 21 H Anisocytosis 1+ Aspartate Amino Transf (AST/SGOT) 30 Band Neutrophils % 4.0 Basophils # Basophils % Blast Cells % 3.0 H Blastocytes # 0.5 Blood Morphology Comment Blood Urea Nitrogen 37 H Calcium Level 7.8 L Carbon Dioxide Level 25 Chloride Level 97 Creatinine 2.16 H Direct Bilirubin 0.00 Eosinophils # Eosinophils % Globulin 5.00 H Glucose Level 155 Hematocrit 23.9 #L Hemoglobin 7.7 #L Hypochromasia 1+ INR International Normalized Ratio 1.29 Indirect Bilirubin 0.3 Lipase 19 L Lymphocytes # 1.8 Lymphocytes % 11.0 L Mean Corpuscular Hemoglobin 25.4 L Mean Corpuscular Hemoglobin Concent 32.2 Mean Corpuscular Volume 78.8 L Mean Platelet Volume 8.3 Metamyelocytes # 1.3 Metamyelocytes % 8.0 H Microcytosis 1+ Monocytes # 2.4 H Monocytes % 15.0 H Myelocytes # 3.4 Myelocytes % 21.0 H Neutrophils # 6.2 Neutrophils % 38.0 L Nucleated Red Blood Cells # Nucleated Red Blood Cells % 2.0 H Platelet Count 14 #*L Platelet Estimate PLT APPEAR DECREASED Potassium Level 3.7 Prothrombin Time 16.2 H Prothrombin Time Ratio 1.3 Red Blood Count 3.03 #L Red Cell Distribution Width 18.2 H Sodium Level 139 Tear Drop Cells 1+ Total Bilirubin 0.3 Total Protein 8.2 H Troponin I 0.013 White Blood Count 16.3 H Urine Amorphous Urates MODERATE Urine Bacteria MODERATE Urine Bilirubin NEGATIVE Urine Clarity SLIGHTLY CLOUDY Urine Color LT. YELLOW Urine Glucose NEGATIVE Urine Hemoglobin 2+ H Urine Hyaline Casts FEW Urine Ketones NEGATIVE Urine Leukocyte Esterase NEGATIVE Urine Microscopic RBC 0-2 Urine Microscopic WBC 0-2 Urine Nitrite NEGATIVE Urine Specific [place] 1.025 Urine Total Protein 1+ H Urine Uric Acid Crystals FEW Urine Urobilinogen 0.2 E.U./dL Urine pH 5.0 Arterial Blood HCO3 21.5 L Arterial Blood Base Excess -14.2 L Arterial Blood Oxygen Saturation 63.1 L Dar Test N/A Arterial Blood Gas Puncture Site Right Brachial Arterial Blood Carboxyhemoglobin 0 Arterial Blood Date Drawn 12/23/2016 4:30:05 PM Arterial Blood Methemoglobin 0.8 Arterial Blood pCO2 (Temp correct) 159.1 *H Arterial Blood pH (Temp corrected) 6.748 *L Arterial Blood pO2 (Temp corrected) 63.1 L Blood Gas A-a O2 Differential 490.8 H Blood Gas Critical Value Read Back DR. GUTIERREZ Blood Gas Modality AMBU BAG Blood Gas Notified Time 12/23/2016 4:37:49 PM Blood Gas Notified Whom Pedro Luis Blood Gas Specimen Source Blood arterial Blood Gas Temperature 37.0 FiO2 100.0 Oxyhemoglobin Percent 62.6 L Total Hemoglobin 8.2 L Test 12/23/16 17:00 12/23/16 17:49 12/23/16 22:50 12/24/16 00:40 Hematocrit 22.9 L Hemoglobin 7.3 L Lactate Dehydrogenase 1065 H Lactic Acid Level 2.0 3.9 H 1.4 Troponin I 0.023 0.434 *H Arterial Blood HCO3 19.6 L Arterial Blood Base Excess -10.1 L Arterial Blood Oxygen Saturation 99.1 H Dar Test N/A Arterial Blood Gas Puncture Site Right Brachial Arterial Blood Carboxyhemoglobin 0.3 Arterial Blood Date Drawn 12/23/2016 6:05:35 PM Arterial Blood Methemoglobin 1.1 Arterial Blood pCO2 (Temp correct) 68.3 H Arterial Blood pH (Temp corrected) 7.076 *L Arterial Blood pO2 (Temp corrected) 308.2 H Blood Gas A-a O2 Differential 336.5 H Blood Gas Actual Respiration Rate 27 Blood Gas Critical Value Read Back DR. GUTIERREZ Blood Gas Low PEEP Setting 5.0 Blood Gas Modality VENT - AC Blood Gas Notified Time 12/23/2016 6:20:25 PM Blood Gas Notified Whom M.D. Blood Gas Respiration Rate 24.0 Blood Gas Specimen Source Blood arterial Blood Gas Temperature 37.0 Blood Gas Tidal Volume 500.0 FiO2 100.0 Oxyhemoglobin Percent 97.7 Total Hemoglobin 7.8 L Test 12/24/16 05:29 12/24/16 07:00 Alanine Aminotransferase (ALT/SGPT) 19 Albumin 2.8 L Albumin/Globulin Ratio 0.59 Alkaline Phosphatase 82 Anion Gap 20 H Aspartate Amino Transf (AST/SGOT) 55 #H Basophils # Basophils % Blood Morphology Comment Blood Urea Nitrogen 42 H Calcium Level 6.7 L Carbon Dioxide Level 23 Chloride Level 101 Cholesterol Level 61 L Cholesterol/HDL Ratio 3.2 Creatinine 2.29 H Direct Bilirubin 0.00 Eosinophils # Eosinophils % Globulin 4.70 H Glucose Level 101 # HDL Cholesterol 19 L Hematocrit 25.8 L Hemoglobin 8.6 L Indirect Bilirubin 0.3 LDL Cholesterol, Calculated 15 Lymphocytes # Lymphocytes % Mean Corpuscular Hemoglobin 27.6 L Mean Corpuscular Hemoglobin Concent 33.1 Mean Corpuscular Volume 83.4 Mean Platelet Volume 8.2 Monocytes # Neutrophils # Neutrophils % Nucleated Red Blood Cells # Nucleated Red Blood Cells % Platelet Count 46 #L Potassium Level 3.5 Red Blood Count 3.09 L Red Cell Distribution Width 18.9 H Sodium Level 140 Total Bilirubin 0.3 Total Protein 7.5 Triglycerides Level 135 White Blood Count 28.5 #H Arterial Blood HCO3 22.4 Arterial Blood Base Excess -3.9 L Arterial Blood Oxygen Saturation 96.3 Dar Test ACCEPTAB Arterial Blood Gas Puncture Site Right Radial Arterial Blood Carboxyhemoglobin 0.3 Arterial Blood Date Drawn 12/24/2016 7:30:16 AM Arterial Blood Methemoglobin 0.7 Arterial Blood pCO2 (Temp correct) 46.8 H Arterial Blood pH (Temp corrected) 7.298 *L Arterial Blood pO2 (Temp corrected) 96.0 Blood Gas A-a O2 Differential 280.3 H Blood Gas Actual Respiration Rate 32 Blood Gas Critical Value Read Back G NICCI RN Blood Gas Low PEEP Setting 5.0 Blood Gas Modality VENT - AC Blood Gas Notified Time 12/24/2016 7:57:06 AM Blood Gas Notified Whom JLD Blood Gas Respiration Rate 24.0 Blood Gas Specimen Source Blood arterial Blood Gas Temperature 37.0 Blood Gas Tidal Volume 500.0 FiO2 60.0 Oxyhemoglobin Percent 95.3 Total Hemoglobin 9.0 L Medications Medications Current Medications Sodium Chloride (NS) 1,000 ml @ 75 mls/hr [id number] IV Last administered on 18:25; Admin Dose 75 MLS/HR; Start 12/23/16 at 16:30 Ondansetron HCl (Zofran Inj) 4 mg Q6H PRN IV NAUSEA AND/OR VOMITING; Start 12/23 at 16:30 Nitroglycerin (Nitroglycerin (Sl Tab) 0.4 Mg) 1 tab Q5M PRN SL CHEST PAIN; Start 12/23/16 at 16:30 Acetaminophen (Tylenol Supp) [address] PAIN LEVEL 1-3 OR FEVER; Start 12/23/16 at 16:30 Morphine Sulfate (morphine) 2 mg Q4H PRN IV PAIN LEVEL 7-10; Start 12/23/16 at 16:30 Lorazepam (Ativan) 1 mg Q2H PRN IV ANXIETY; Start 12/23/16 at 16:30 Bisacodyl (Dulcolax) 5 mg DAILY PRN PO CONSTIPATION; Start 12/23/16 at 16:30 Pantoprazole 40 mg 40 mg DAILY@06 IV Last administered on 12/24/16 06:41; Admin Dose 40 MG; Start 12/24/16 at 06:00 Cefepime HCl (Maxipime 2gm/50 ml (Pmx)) 50 ml @ 100 mls/hr Q12 IVPB Last administered on 12/24/16 02:04; Admin Dose 100 MLS/HR; Start 12/23/16 at 22:00 Oseltamivir Phosphate (Tamiflu Susp) 75 mg Q12 PO ; Start 12/23/16 at 21:00; Stop 12/28/16 at 21:00 Furosemide 20 mg 20 mg ONCE IV Last administered on 2/6/17at 17:13; Admin Dose 20 MG; Start 12/23/16 at 17:00; Stop 12/24/16 at 16:59 Vancomycin HCl 250 ml @ 125 mls/hr Q24H IVPB ; Start 12/24/16 at 18:00 Propofol (Diprivan) 100 ml @ 2.346 mls/ hr Q12H IV Last administered on 06:41; Admin Dose 11.73 MLS/HR; Start 12/23/16 at 22:00 Procedures Procedures CXR IMPRESSION: Bilateral hazy and patchy opacities could represent pulmonary edema and/or multifocal pneumonia, unchanged. Nodular opacities within the right upper lobe, unchanged. Endotracheal tube in place. HUMA THAKKAR MD Dec 24, 2016 08:32
[2016-12-24] MEDS: OSELTAMIVIR PHOSPHATE (6 MG/ML PO SYG) PO SCH ×2 (08:46→20:51)
[2016-12-24] MEDS: ACETAMINOPHEN 650 MG SUPP PR PRN (09:01)
[2016-12-24] MEDS ORDERED: FUROSEMIDE 40 MG INJ IV ONE (09:30)
[2016-12-24] MEDS ORDERED: ALBUMIN HUMAN 25% 100 ML IV ONE (09:30)
--- NOTE | 2016-12-24 10:41 | CONS ---
DATE OF ADMISSION: 12/23/2016 DATE OF CONSULTATION: 12/24/2016 TYPE OF CONSULTATION: Nephrology. REFERRING PHYSICIAN: Walter Doyle MD REASON FOR CONSULTATION: Acute kidney injury. HISTORY OF PRESENT ILLNESS: This is a 71-year-old male who has a past medical history of chronic ki dney disease, likely secondary to congestive heart failure and diastolic heart failure, COPD, histor y of chronic myeloid leukemia on chemotherapy, gastroesophageal reflux disease, COPD, history of pre vious smoking abuse. He presented with sepsis secondary to influenza pneumonia. The patient had ac [place] hypoxemic respiratory failure, intubated, currently on a ventilator. The patient also has a pranav re thrombocytopenia. Upon review of his labs in the last 1 year, the patient had a creatinine which has been within the normal range from 0.8 to 1 in the year of 2015. He was recently seen in the [facility] room on 12/16/2016. At that time, his creatinine was 1.5. The patient's creatinine improved at the time of discharge to 1.29 and he was discharged home this time. After presentation, he was intubated in the emergency room for acute hypoxemic respiratory failure. Currently, his creatinine has been 2.1 on admission which bumped up to 2.2 today and renal has been consulted for acute kidney injury. REVIEW OF SYSTEMS: Unable to obtain from the patient since he is currently intubated on ventilator. 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 PAST SURGICAL HISTORY: History of a bowel resection. FAMILY HISTORY: There is no pertinent family history of heart disease, COPD, diabetes, or history o f any family member on dialysis. SOCIAL HISTORY: The patient is a current every day smoker. He has a history of COPD from smoking. No alcohol or recreational drug use. PHYSICAL EXAMINATION: VITAL SIGNS: Temperature 98.7, heart rate 111, respirations 32, blood pressure 112/57, saturation 9 7% on mechanical ventilator. GENERAL: Currently sedated, intubated on ventilator. HEENT: ET tube in place. NECK: Jugular venous distention up to the mid neck. LUNGS: Bilateral coarse breath sounds from the ventilator. HEART: S1, S2, tachycardia. ABDOMEN: Soft, nontender, nondistended. EXTREMITIES: No clubbing, cyanosis, edema. NEUROLOGICAL: Uncooperative and unable to assess due to the patient currently sedated, intubated on ventilator. SKIN: No rash, no decubitus. LABORATORY DATA/DIAGNOSTIC IMAGING: WBC 28.5, hemoglobin 8.6, platelet count is 46. Sodium 140, pot assium 3.5, chloride 101, bicarbonate 23, BUN 42, creatinine 2.2, glucose 101, calcium 6.7, albumin 2.8. Troponin 0.434. PT 16.2, PTT INR is 1.297. ABG shows a pH of 7.29, pCO2 of 46, pO2 96, bicarbonate 22.4. Urinalysi s shows 2+ hemoglobin, 1+ total protein. Chest x-ray done in the emergency room and also today morning shows pulmonary edema with bilateral h azy and patchy opacities with nodular opacities within the right upper lobe, unchanged. Endotrachea l tube in place. IMPRESSION: This is a 71-year-old male who presented with acute hypoxemic respiratory failure secon griffin to sepsis secondary to influenza pneumonia and renal has been consulted for: 1. Acute kidney injury, likely secondary to acute tubular necrosis in the setting of sepsis. 2. Acute hypoxemic respiratory failure, multifactorial, secondary to sepsis and secondary to pulmon rohan condition. 3. Acute pulmonary edema with influenza pneumonia. 4. History of congestive heart failure with diastolic heart failure. 5. History of chronic obstructive pulmonary disease. 6. History of gastroesophageal reflux disease. 7. History of smoking. 8. 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 PLAN: Thank you, Dr. Walter Doyle, for this consultation. 1. I will order the patient's urine studies including a urine sodium, urine protein, urine creatin ine, urine eosinophils and repeat urinalysis. 2. Renal ultrasound has been ordered to assess the kidney size and to rule out any hydronephrosis. My plan is to give him albumin 1 dose followed by Lasix 40 mg IV x1. 3. Other IV antibiotics and further workup of the sepsis as per the primary care team. 4. Paper Cutting Machine Operator has been consulted because of his elevated troponin. 5. The patient likely has a possible previous chronic kidney disease from his chronic heart failure and a chronic myeloid leukemia, but will continue to monitor his renal function and electrolytes. Currently, patient is intubated. We will continue to follow this patient along with the primary car e service and cardiology service. Once again, thank you, Dr. Doyle, for this consultation. I will continue to follow this patient. Dictated By: GILL PEREIRA MD, KP/RADHA Conf#: [id number] DID#: [id number]
--- NOTE | 2016-12-24 11:06 | CONS ---
Date/Time of Note Date/Time of Note DATE: 12/24/16 TIME: 11:04 Assessment/Plan Assessment/Plan Additional Assessment/Plan 1. Respiratory failure, assess for congestive heart failure- stil intubated - con't to optimize fluid satus. 2. Cardiomyopathy with decreased left ventricular ejection fraction, last being approximately 45% to 50% by echo 11/2016- better now 3. Hypotension, borderline- on anti-Bx, will monitor 4. Influenza positive- isolation, ID follows 5. History of chronic myelogenous leukemia- oncology to follow 6. Renal failure. 7. Thrombocytopenia, severe. 8. Anemia. 9. Leukocytosis. Consultation Date/Type/Reason Admit Date/Time Dec 23, 2016 at 15:37 Initial Consult Date 12/24/16 Type of Consultation: Pulmonary/critical care 24 HR Interval Summary Free Text/Dictation No acute change - overall critically ill will monitor - no cardiac intervention planned now. ROS: + fever, no chills, no nausea, no vomiting, no diarrhea/constipation No recent weight changes No chest pain, no PND, no orthopnea No dizziness, blurred vision No thirst, no heat or cold intolerance (per nurse) Exam/Review of Systems Vital Signs Vitals Vital Signs Date Time Temp Pulse Resp B/P Pulse Ox O2 Delivery O2 Flow Rate FiO2 12/24/16 10:00 109 30 104/50 97 Mechanical Ventilator 12/24/16 05:15 99.4 12/24/16 05:07 60 12/23/16 16:35 15.0 Intake and Output 12/23/16 12/23/16 12/24/16 15:00 23:00 07:00 Intake Total 77.3 ml 625 ml Output Total 50 ml 445 ml Balance 27.3 ml 180 ml Exam General: WN/WD/NAD, AOx 0 HEENT: Unicetric/atraumatic/EOMI (does not follow commands) NECK: JVD elevated, no thyromegaly, intub Lymph: no lymphadenopathy HEART: regular with no S3, II/ systolic murmur at apex LUNGS: Coarse sounds ABD: soft, NT, ND, +BS : Intact Neuro: non focal SKIN: chronic changes EXT: trace edema Results Result Diagram: 12/24/1629 12/24/16528 Results 24 hrs Laboratory Tests Test 12/23/16 15:00 12/23/16 15:20 12/23/16 15:55 12/23/16 16:27 B-Type Natriuretic Peptide 3270 H Alanine Aminotransferase (ALT/SGPT) 17 Albumin 3.2 L Albumin/Globulin Ratio 0.64 Alkaline Phosphatase 84 Anion Gap 21 H Anisocytosis 1+ Aspartate Amino Transf (AST/SGOT) 30 Band Neutrophils % 4.0 Basophils # Basophils % Blast Cells % 3.0 H Blastocytes # 0.5 Blood Morphology Comment Blood Urea Nitrogen 37 H Calcium Level 7.8 L Carbon Dioxide Level 25 Chloride Level 97 Creatinine 2.16 H Direct Bilirubin 0.00 Eosinophils # Eosinophils % Globulin 5.00 H Glucose Level 155 Hematocrit 23.9 #L Hemoglobin 7.7 #L Hypochromasia 1+ INR International Normalized Ratio 1.29 Indirect Bilirubin 0.3 Lipase 19 L Lymphocytes # 1.8 Lymphocytes % 11.0 L Mean Corpuscular Hemoglobin 25.4 L Mean Corpuscular Hemoglobin Concent 32.2 Mean Corpuscular Volume 78.8 L Mean Platelet Volume 8.3 Metamyelocytes # 1.3 Metamyelocytes % 8.0 H Microcytosis 1+ Monocytes # 2.4 H Monocytes % 15.0 H Myelocytes # 3.4 Myelocytes % 21.0 H Neutrophils # 6.2 Neutrophils % 38.0 L Nucleated Red Blood Cells # Nucleated Red Blood Cells % 2.0 H Platelet Count 14 #*L Platelet Estimate PLT APPEAR DECREASED Potassium Level 3.7 Prothrombin Time 16.2 H Prothrombin Time Ratio 1.3 Red Blood Count 3.03 #L Red Cell Distribution Width 18.2 H Sodium Level 139 Tear Drop Cells 1+ Total Bilirubin 0.3 Total Protein 8.2 H Troponin I 0.013 White Blood Count 16.3 H Urine Amorphous Urates MODERATE Urine Bacteria MODERATE Urine Bilirubin NEGATIVE Urine Clarity SLIGHTLY CLOUDY Urine Color LT. YELLOW Urine Glucose NEGATIVE Urine Hemoglobin 2+ H Urine Hyaline Casts FEW Urine Ketones NEGATIVE Urine Leukocyte Esterase NEGATIVE Urine Microscopic RBC 0-2 Urine Microscopic WBC 0-2 Urine Nitrite NEGATIVE Urine Specific [place] 1.025 Urine Total Protein 1+ H Urine Uric Acid Crystals FEW Urine Urobilinogen 0.2 E.U./dL Urine pH 5.0 Arterial Blood HCO3 21.5 L Arterial Blood Base Excess -14.2 L Arterial Blood Oxygen Saturation 63.1 L Dar Test N/A Arterial Blood Gas Puncture Site Right Brachial Arterial Blood Carboxyhemoglobin 0 Arterial Blood Date Drawn 12/23/2016 4:30:05 PM Arterial Blood Methemoglobin 0.8 Arterial Blood pCO2 (Temp correct) 159.1 *H Arterial Blood pH (Temp corrected) 6.748 *L Arterial Blood pO2 (Temp corrected) 63.1 L Blood Gas A-a O2 Differential 490.8 H Blood Gas Critical Value Read Back DR. GUTIERREZ Blood Gas Modality AMBU BAG Blood Gas Notified Time 12/23/2016 4:37:49 PM Blood Gas Notified Whom MSachin Blood Gas Specimen Source Blood arterial Blood Gas Temperature 37.0 FiO2 100.0 Oxyhemoglobin Percent 62.6 L Total Hemoglobin 8.2 L Test 12/23/16 17:00 12/23/16 17:49 12/23/16 22:50 12/24/16 00:40 Hematocrit 22.9 L Hemoglobin 7.3 L Lactate Dehydrogenase 1065 H Lactic Acid Level 2.0 3.9 H 1.4 Troponin I 0.023 0.434 *H Arterial Blood HCO3 19.6 L Arterial Blood Base Excess -10.1 L Arterial Blood Oxygen Saturation 99.1 H Dar Test N/A Arterial Blood Gas Puncture Site Right Brachial Arterial Blood Carboxyhemoglobin 0.3 Arterial Blood Date Drawn 12/23/2016 6:05:35 PM Arterial Blood Methemoglobin 1.1 Arterial Blood pCO2 (Temp correct) 68.3 H Arterial Blood pH (Temp corrected) 7.076 *L Arterial Blood pO2 (Temp corrected) 308.2 H Blood Gas A-a O2 Differential 336.5 H Blood Gas Actual Respiration Rate 27 Blood Gas Critical Value Read Back DR. GUTIERREZ Blood Gas Low PEEP Setting 5.0 Blood Gas Modality VENT - AC Blood Gas Notified Time 12/23/2016 6:20:25 PM Blood Gas Notified Whom Pedro Luis Blood Gas Respiration Rate 24.0 Blood Gas Specimen Source Blood arterial Blood Gas Temperature 37.0 Blood Gas Tidal Volume 500.0 FiO2 100.0 Oxyhemoglobin Percent 97.7 Total Hemoglobin 7.8 L Test 12/24/16 05:29 12/24/16 07:00 Alanine Aminotransferase (ALT/SGPT) 19 Albumin 2.8 L Albumin/Globulin Ratio 0.59 Alkaline Phosphatase 82 Anion Gap 20 H Aspartate Amino Transf (AST/SGOT) 55 #H Basophils # Basophils % Blood Morphology Comment Blood Urea Nitrogen 42 H Calcium Level 6.7 L Carbon Dioxide Level 23 Chloride Level 101 Cholesterol Level 61 L Cholesterol/HDL Ratio 3.2 Creatinine 2.29 H Differential Comment MANUAL DIFF Direct Bilirubin 0.00 Eosinophils # Eosinophils % Globulin 4.70 H Glucose Level 101 # HDL Cholesterol 19 L Hematocrit 25.8 L Hemoglobin 8.6 L Indirect Bilirubin 0.3 LDL Cholesterol, Calculated 15 Lymphocytes # Lymphocytes % Mean Corpuscular Hemoglobin 27.6 L Mean Corpuscular Hemoglobin Concent 33.1 Mean Corpuscular Volume 83.4 Mean Platelet Volume 8.2 Monocytes # Neutrophils # Neutrophils % Nucleated Red Blood Cells # Nucleated Red Blood Cells % Platelet Count 46 #L Potassium Level 3.5 Random Cortisol 31.4 Red Blood Count 3.09 L Red Cell Distribution Width 18.9 H Sodium Level 140 Total Bilirubin 0.3 Total Protein 7.5 Triglycerides Level 135 White Blood Count 28.5 #H Arterial Blood HCO3 22.4 Arterial Blood Base Excess -3.9 L Arterial Blood Oxygen Saturation 96.3 Dar Test ACCEPTAB Arterial Blood Gas Puncture Site Right Radial Arterial Blood Carboxyhemoglobin 0.3 Arterial Blood Date Drawn 12/24/2016 7:30:16 AM Arterial Blood Methemoglobin 0.7 Arterial Blood pCO2 (Temp correct) 46.8 H Arterial Blood pH (Temp corrected) 7.298 *L Arterial Blood pO2 (Temp corrected) 96.0 Blood Gas A-a O2 Differential 280.3 H Blood Gas Actual Respiration Rate 32 Blood Gas Critical Value Read Back G MILO RN Blood Gas Low PEEP Setting 5.0 Blood Gas Modality VENT - AC Blood Gas Notified Time 12/24/2016 7:57:06 AM Blood Gas Notified Whom JLD Blood Gas Respiration Rate 24.0 Blood Gas Specimen Source Blood arterial Blood Gas Temperature 37.0 Blood Gas Tidal Volume 500.0 FiO2 60.0 Oxyhemoglobin Percent 95.3 Total Hemoglobin 9.0 L Medications Medications Current Medications Sodium Chloride (NS) 1,000 ml @ 75 mls/hr [id number] IV Last administered on 09:03; Admin Dose 75 MLS/HR; Start 12/23/16 at 16:30 Ondansetron HCl (Zofran Inj) 4 mg Q6H PRN IV NAUSEA AND/OR VOMITING; Start 12/23 at 16:30 Nitroglycerin (Nitroglycerin (Sl Tab) 0.4 Mg) 1 tab Q5M PRN SL CHEST PAIN; Start 12/23/16 at 16:30 Acetaminophen (Tylenol Supp) 650 mg Q4H PRN [place] PAIN LEVEL 1-3 OR FEVER Last administered on 12/24/16 09:01; Admin Dose 650 MG; Start 12/23/16 at 16:30 Morphine Sulfate (morphine) 2 mg Q4H PRN IV PAIN LEVEL 7-10; Start 12/23/16 at 16:30 Lorazepam (Ativan) 1 mg Q2H PRN IV ANXIETY; Start 12/23/16 at 16:30 Bisacodyl (Dulcolax) 5 mg DAILY PRN PO CONSTIPATION; Start 12/23/16 at 16:30 Pantoprazole 40 mg 40 mg DAILY@06 IV Last administered on 12/24/16 06:41; Admin Dose 40 MG; Start 12/24/16 at 06:00 Cefepime HCl (Maxipime 2gm/50 ml (Pmx)) 50 ml @ 100 mls/hr Q12 IVPB Last administered on 12/24/16 02:04; Admin Dose 100 MLS/HR; Start 12/23/16 at 22:00 Oseltamivir Phosphate (Tamiflu Susp) 75 mg Q12 PO Last administered on 08:46; Admin Dose 75 MG; Start 12/23/16 at 21:00; Stop 12/28/16 at 21:00 Furosemide 20 mg 20 mg ONCE IV Last administered on 12/23/16 17:13; Admin Dose 20 MG; Start 12/23/16 at 17:00; Stop 12/24/16 at 16:59 Vancomycin HCl 250 ml @ 125 mls/hr Q24H IVPB ; Start 12/24/16 at 18:00 Propofol (Diprivan) 100 ml @ 2.346 mls/ hr Q12H IV Last administered on 06:41; Admin Dose 11.73 MLS/HR; Start 12/23/16 at 22:00 GONZALO MURCIA MD Dec 24, 2016 11:06
[2016-12-24 11:18] LABS: HEMATOCRIT 25.9 % (42.0-52.0); HEMOGLOBIN 8.5 g/dl (14.0-18.0)
--- NOTE | 2016-12-24 13:28 | RADRPT ---
PROCEDURE: US Retroperitoneum CLINICAL INDICATION: Acute renal failure TECHNIQUE: Multiple sonographic images of the kidneys were obtained. Evaluation was performed as well with godoy scale and color and Doppler evaluation using a curved array transducer. The images w ere reviewed on a high-resolution PACS workstation. COMPARISON: No prior studies are available for comparison. FINDINGS: The kidneys are well visualized. The right kidney measures 13.4 cm in length. The left kidney measu res 13.1 cm in length. Small benign left renal cyst is incidentally noted. No solid renal mass, calc ulus, hydronephrosis or perinephric fluid collection is identified. Splenomegaly is noted measuring 17.3 cm. Small amount of ascites is present in the left upper quadra nt. IMPRESSION: 1. Unremarkable appearance of the kidneys. No hydronephrosis or obstructive uropathy is seen. 2. Splenomegaly is noted measuring 17.3 cm. 3. Small amount of left upper quadrant ascites is seen. RPTAT: QQ .German Odonnell MD, MD Date Time Electronically viewed and signed by .German Odonnell MD, on 12/24/2016 13:27 .R/
--- NOTE | 2016-12-24 13:36 | CONS ---
DATE OF ADMISSION: 12/23/2016 DATE OF CONSULTATION: 12/24/2016 REFERRING PHYSICIAN: Walter Doyle MD HISTORY OF PRESENT ILLNESS: First of all, I have seen patient in the emergency room at [facility] and obtained the information of his past and current medical history, with necessit ating this hospitalization from the patient's medical records, speaking to Dr. Doyle, and to famil y members; however, neither family member are aware of patient's detailed current medical history. Apparently he has a history of chronic myelogenous leukemia who presented to the emergency room with the last 3 to 4 days of increasing shortness of breath. On the day of admission, he became altered with increasing respiratory failure, was transferred to the emergency room at [facility], was emergently intubated at that time. Then he was seen by Dr. Doyle, and intensive ther apy was begun with antiviral medications for presumed viral pneumonitis, treatment of thrombocytopen ia and anemia, fluid resuscitation, and his antibiotics were increased for broad spectrum antibiotic coverage for sepsis syndrome. At the time, I saw him in the emergency room, he was being intubated and still critically ill at that time; however, not on pressors then. His primary care oncologist is Dr. Pryor. Apparently he had been started off on oral therapy which he states approximately 1 day prior to his presentation last time, the family states he received systemic chemotherapy was alethea roximately 3 to 4 weeks ago; however, they are unclear if they are, in fact, correct. MEDICATIONS: Please refer to reconciliation sheet. ALLERGIES: NO KNOWN DRUG ALLERGIES. PAST MEDICAL HISTORY: Major medical problems in the past for this consultation prior are entirely p er history of present illness and secondarily a history of COPD and congestive heart failure. SOCIAL HISTORY: Currently smokes, lives with family. FAMILY HISTORY: Cannot be obtained. PHYSICAL EXAMINATION: Deferred secondary to the patient having a procedure. ASSESSMENT AND PLAN: I have had an extensive conversation with patient's significant others, one is his son, the other one is another first-degree family member. I have explained to him the severity of his current underlying medical problems, the fact that he has sepsis in that setting with respir atory failure necessitating a transfer and aggressive care in the intensive care unit. I have assur ed them that he will receive an aggressive intervention course; however, that he is critically ill, but I have not discussed with them options at this point, because I feel the family is very traumati zed and there is a more appropriate time to address that, especially after speaking to Dr. Pryor. I will continue to follow him closely while in the intensive care unit. I have spoken to Dr. Ivonne cui also concerning my discussion with family members. Dictated By: JUSTIN DANIELS MD, LP/RADHA Conf#: [id number] DID#: [id number]
[2016-12-24 13:57] LABS: LYMPHOCYTES # 4.6 10^3/ul (0.8-2.9); MONOCYTE # 6.8 10^3/ul (0.3-0.9)
[2016-12-24 13:58] LABS: PLATELET ESTIMATE PLT APPEAR DECREASED
[2016-12-24 16:31] LABS: ADD UMIC YES; URINE BILIRUBIN (Dip) NEGATIVE (NEGATIVE); URINE BLOOD (Dip) 3+ (NEGATIVE); URINE COLOR LT. YELLOW (YELLOW); URINE GLUCOSE (Dip) NEGATIVE (NEGATIVE); URINE KETONES (Dip) NEGATIVE (NEGATIVE); URINE LEUKOCYTE ESTERASE (Dip) NEGATIVE (NEGATIVE); URINE NITRITE (Dip) NEGATIVE (NEGATIVE); URINE TOTAL PROTEIN (Dip) TRACE (NEGATIVE); URINE UROBILINOGEN (Dip) 0.2 E.U./dL (0.1-1.0)
[2016-12-24 17:03] LABS: BACTERIA,URINE FEW; URIC ACID CRYSTALS,URINE MANY
[2016-12-24 17:04] LABS: SQUAMOUS EPITHELIAL CELL,UR FEW
[2016-12-24] MEDS ORDERED: VANCOMYCIN 1 GM in NS 250 ML IVPB SCH (18:00)
[2016-12-24] MEDS ORDERED: ALBUTEROL HFA 8 GM INHALER INH SCH (22:00)
[2016-12-24] MEDS ORDERED: IPRATROPIUM (HFA) 12.9 GM INHALER INH SCH (22:00)
[2016-12-24] MEDS: LORAZEPAM 2 MG INJ IV PRN (22:13)
[2016-12-25] VITALS (60 sets, daily range): BP systolic 85–119; BP diastolic 44–65; PULSE 83–120; RESP 18–30
[2016-12-25] MEDS: PROPOFOL 100 ML IV SCH ×5 (01:02→21:51)
[2016-12-25] MEDS: ACETAMINOPHEN 650 MG SUPP PR PRN (01:06)
[2016-12-25] MEDS: IPRATROPIUM (HFA) 12.9 GM INHALER INH SCH ×6 (01:48→21:43)
[2016-12-25] MEDS: ALBUTEROL HFA 8 GM INHALER INH SCH ×6 (01:48→21:44)
[2016-12-25] MEDS ORDERED: CEFEPIME 2GM/50 ML (PMX) 50 ML IVPB SCH (02:00)
[2016-12-25] MEDS: PANTOPRAZOLE 40 MG INJ IV SCH (05:36)
[2016-12-25] MEDS ORDERED: VANCOMYCIN 1 GM in NS 250 ML IVPB SCH (06:00)
[2016-12-25 06:47] LABS: ALBUMIN 2.8 g/dl (3.3-4.9)
[2016-12-25 06:48] LABS: POTASSIUM 3.5 mmol/L (3.5-5.1)
[2016-12-25 06:50] LABS: BILIRUBIN,INDIRECT 0.1 mg/dl (0-1.1); BILIRUBIN,TOTAL 0.1 mg/dl (0.2-1.3); CREATININE 2.31 mg/dl (0.61-1.24)
[2016-12-25 06:51] LABS: ALBUMIN/GLOBULIN RATIO 0.6; CALCIUM 6.5 mg/dl (8.4-10.2); TOTAL PROTEIN 7.4 g/dl (6.1-8.1)
[2016-12-25 07:31] LABS: WHITE BLOOD COUNT 28.5 10^3/ul (4.8-10.8)
[2016-12-25 07:36] LABS: WHITE BLOOD COUNT 16.3 10^3/ul (4.8-10.8)
--- NOTE | 2016-12-25 07:57 | CONS ---
Date/Time of Note Date/Time of Note DATE: 12/25/16 TIME: 07:54 Assessment/Plan Assessment/Plan Additional Assessment/Plan Chest x-ray and labs from today are pending. ABG also is pending. Assessment and recommendation; 1. Patient admitted with respiratory failure due to severe bilateral pneumonia. 2. 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 3. COPD 4. Mild cardiomyopathy. 5. Chronic renal insufficiency. Continue current treatment for now. Once ABG, chest x-ray and labs are available I will review them and make further recommendations. Prognosis is guarded. Consultation Date/Type/Reason Admit Date/Time Dec 23, 2016 at 15:37 Initial Consult Date 12/24/16 Type of Consultation: Pulmonary/critical care 24 HR Interval Summary Free Text/Dictation Patient's condition remains critical. Still requiring full ventilator support. Patient currently sedated with propofol drip. Not requiring any pressor support. General examination; elderly male, orally intubated, sedated currently in no distress. Exam/Review of Systems Vital Signs Vitals Vital Signs Date Time Temp Pulse Resp B/P Pulse Ox O2 Delivery O2 Flow Rate FiO2 12/25/16 06:30 99 20 95/45 96 12/25/16 06:00 Mechanical Ventilator 12/25/16 04:25 40 12/25/16 04:00 98.7 12/23/16 16:35 15.0 Intake and Output 12/24/16 12/24/16 12/25/16 15:00 23:00 07:00 Intake Total 701.992 ml 810.144 ml 956.376 ml Output Total 705 ml 1110 ml 680 ml Balance -3.008 ml -299.856 ml 276.376 ml Exam H EENT examination; supple neck, no JVD. No lymphadenopathy. Or intubated. Bilateral cataracts are present. Pupils are midsize reactive to light bilaterally. Patient does have fair dentition. No neck masses or any lymphadenopathy. No thyromegaly. Chest examination; diminished but clear breath sounds. S1-S2 audible, no murmurs, regular rate and rhythm. Next Abdomen examination; soft, nondistended. No organomegaly. Bowel sounds audible. Extremity examination; no peripheral edema. Pulses 1+ bilaterally. ITEM REPAIR MANAGER examination; patient is sedated. Ventilator settings; assist control of 24, tidal volume 500, PEEP of 5, 40% FiO2. Results Result Diagram: 12/24/16 1100 12/25/16 0532 Results 24 hrs Laboratory Tests Test 12/24/16 11:00 12/24/16 14:15 12/25/16 05:32 Hematocrit 25.9 L Hemoglobin 8.5 L Urine Amorphous Urates FEW Urine Bacteria FEW Urine Bilirubin NEGATIVE Urine Clarity CLOUDY H Urine Color LT. YELLOW Urine Eosinophils % 0.0 Urine Glucose NEGATIVE Urine Hemoglobin 3+ H Urine Hyaline Casts OCCASIONAL Urine Ketones NEGATIVE Urine Leukocyte Esterase NEGATIVE Urine Microscopic RBC 5-10 Urine Microscopic WBC 0-2 Urine Nitrite NEGATIVE Urine Random Creatinine 59.90 Urine Random Sodium 52 Urine Specific [place] 1.025 Urine Squamous Epithelial Cells FEW Urine Total Protein Urine Uric Acid Crystals MANY Urine Urobilinogen 0.2 E.U./dL Urine pH 5.0 Alanine Aminotransferase (ALT/SGPT) 21 Albumin 2.8 L Albumin/Globulin Ratio 0.60 Alkaline Phosphatase 77 Anion Gap 22 H Aspartate Amino Transf (AST/SGOT) 41 Blood Urea Nitrogen 45 H Calcium Level 6.5 L Carbon Dioxide Level 22 Chloride Level 105 Creatinine 2.31 H Direct Bilirubin 0.00 Globulin 4.60 H Glucose Level 80 Indirect Bilirubin 0.1 Potassium Level 3.5 Sodium Level 145 H Total Bilirubin 0.1 L Total Protein 7.4 Medications Medications Current Medications Sodium Chloride (NS) 1,000 ml @ 75 mls/hr [id number] IV Last administered on 20:51; Admin Dose 75 MLS/HR; Start 12/23/16 at 16:30 Ondansetron HCl (Zofran Inj) 4 mg Q6H PRN IV NAUSEA AND/OR VOMITING; Start 12/23 at 16:30 Nitroglycerin (Nitroglycerin (Sl Tab) 0.4 Mg) 1 tab Q5M PRN SL CHEST PAIN; Start 12/23/16 at 16:30 Acetaminophen (Tylenol Supp) 650 mg Q4H PRN [place] PAIN LEVEL 1-3 OR FEVER Last administered on 12/25/16 01:06; Admin Dose 650 MG; Start 12/23/16 at 16:30 Morphine Sulfate (morphine) 2 mg Q4H PRN IV PAIN LEVEL 7-10; Start 12/23/16 at 16:30 Lorazepam (Ativan) 1 mg Q2H PRN IV ANXIETY Last administered on 12/24/16 22:13 ; Admin Dose 1 MG; Start 12/23/16 at 16:30 Bisacodyl (Dulcolax) 5 mg DAILY PRN PO CONSTIPATION; Start 12/23/16 at 16:30 Pantoprazole (Protonix Iv) 40 mg DAILY@06 IV Last administered on 12/25/16 05: 36; Admin Dose 40 MG; Start 12/24/16 at 06:00 Oseltamivir Phosphate 75 mg 75 mg Q12 PO Last administered on 12/24/16 20:51; Admin Dose 75 MG; Start 12/23/16 at 21:00; Stop 12/28/16 at 21:00 Propofol 100 ml @ 2.346 mls/ hr Q12H IV Last administered on 12/25/16 06:27; Admin Dose 18.768 MLS/HR; Start 12/23/16 at 22:00 Cefepime HCl 50 ml @ 100 mls/hr Q24H IVPB Last administered on 12/25/16 01:07 ; Admin Dose 100 MLS/HR; Start 12/25/16 at 02:00 Vancomycin HCl (Vancocin) 250 ml @ 125 mls/hr Q36H IVPB Last administered on 05:36; Admin Dose 125 MLS/HR; Start 12/25/16 at 06:00 MYESHA OLIVER Dec 25, 2016 07:57
[2016-12-25 08:16] LABS: HEMATOCRIT 23.6 % (42.0-52.0); HEMOGLOBIN 7.8 g/dl (14.0-18.0); MEAN CORPUSCULAR HEMOGLOBIN 27.5 pg (29.0-33.0); MEAN CORPUSCULAR HGB CONC 32.8 g/dl (32.0-37.0); MEAN CORPUSCULAR VOLUME 83.8 fl (82.0-101.0); RED BLOOD COUNT 2.82 10^6/ul (4.70-6.10); UNCORRECTED WBC 18.6 10^3/ul (4.8-10.8); WHITE BLOOD COUNT 18.6 10^3/ul (4.8-10.8)
[2016-12-25] MEDS: SOD CHLORIDE 0.9% 1,000 ML IV SCH ×2 (08:30→15:44)
[2016-12-25 08:33] LABS: CONDITION 1; LH ANALYZER COMMENTS 1; MEAN PLATELET VOLUME 9.8 fl (7.4-10.4); SUSPECT 1
[2016-12-25 08:34] LABS: PLATELET COUNT 18 10^3/UL (140-440)
[2016-12-25 08:46] LABS: AADO2 Arterial 150.3 mmHg (7.0-24.0); Allen Test ACCEPTAB; Arterial Base Excess -6.1 mmol/L (-3.0-3); Arterial COHb 0.3 % (0.0-3.0); Arterial Fraction of Oxyhgb 94.8 % (93.0-99.0); Arterial HCO3 19.1 mmol/L (22.0-26.0); Arterial MetHb 0.5 % (0.0-1.5); MODE VENT - AC
[2016-12-25] MEDS ORDERED: SOD CHLORIDE 0.9% 250 ML IV* ONE (08:53)
[2016-12-25 08:56] LABS: HEMATOCRIT 22.4 % (42.0-52.0); HEMOGLOBIN 7.5 g/dl (14.0-18.0); MEAN CORPUSCULAR HEMOGLOBIN 27.6 pg (29.0-33.0); MEAN CORPUSCULAR HGB CONC 33.4 g/dl (32.0-37.0); MEAN CORPUSCULAR VOLUME 82.5 fl (82.0-101.0); RED BLOOD COUNT 2.71 10^6/ul (4.70-6.10); RED CELL DISTRIBUTION WIDTH 19.3 % (11.5-14.5); UNCORRECTED WBC 17.1 10^3/ul (4.8-10.8); WHITE BLOOD COUNT 17.1 10^3/ul (4.8-10.8)
[2016-12-25 08:57] LABS: ALBUMIN 2.7 g/dl (3.3-4.9)
[2016-12-25 08:58] LABS: POTASSIUM 3.5 mmol/L (3.5-5.1)
[2016-12-25 09:00] LABS: BILIRUBIN,INDIRECT 0.1 mg/dl (0-1.1); BILIRUBIN,TOTAL 0.1 mg/dl (0.2-1.3); CREATININE 2.26 mg/dl (0.61-1.24)
[2016-12-25] MEDS ORDERED: FUROSEMIDE 40 MG INJ IV SCH (09:00)
[2016-12-25] MEDS ORDERED: LEVOFLOXACIN 250MG/D5W (PMX) 50 ML IVPB SCH (09:00)
[2016-12-25 09:01] LABS: ALBUMIN/GLOBULIN RATIO 0.6; CALCIUM 6.6 mg/dl (8.4-10.2); TOTAL PROTEIN 7.2 g/dl (6.1-8.1)
[2016-12-25 09:07] LABS: MEAN PLATELET VOLUME 9.4 fl (7.4-10.4); PLATELET COUNT 16 10^3/UL (140-440); SUSPECT 1
[2016-12-25 09:08] LABS: CONDITION 1; LH ANALYZER COMMENTS 1
[2016-12-25 09:10] LABS: PLATELET COUNT 20 10^3/UL (140-440)
--- NOTE | 2016-12-25 09:17 | PN ---
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 1. Sepsis 2/2 to Influenza Pneumonia - cannot start NGT until platelets elevated - consult to ID placed, IV antibiotics,on tamiflu 2. Acute hypoxemic respiratory failure - s/p intubation - severe acidosis - improving - appreciate pulm recs - wean as tolerated 3. Severe thrombocytopenia - replete - recheck - replete today - check DIC panel - medication induced? 4. Acute on chronic renal failure - 2/2 to sepsis - IVF - renally adjust medications, avoid nephrotoxins, worsening, appreciate renal consult 5. Anemia - of chronic disease - CA - will transfuse 2 units PRBCS, check serial H/H q6h - transfuse as per hem/onc, repeat transfusion, add ferrilicit 6. CML on chemo - continue with hem/onc recs 7. CHF with diastolic heart failure - consult cardiology, type II NSTEMI ? - demand ischemia, recent ECHO EF 45%, diastolic dysfunction 8. COPD - see #1 9. GERD - continue with IV protonix 10. Smoking abuse - advised patient on cessation 11. GI ppx - protonix 12. DVT ppx - contraindicated for anticoagulation - monitor acute changes dispo - f/u recs, monitor changes, prognosis is guarded/poor - f/u palliative care consult this critical care note took greater than 40 min to complete Subjective 24 Hr Interval Summary Free Text/Dictation Patient had no overnight events. Improving overall functioning. He is more alert today after being off of sedation. Otherwise spoke to the nurse and consultants about the care plan. 15 minutes spent. Exam/Review of Systems Vital Signs Vitals Vital Signs Date Time Temp Pulse Resp B/P Pulse Ox O2 Delivery O2 Flow Rate FiO2 12/25/16 08:00 99 12/25/16 06:30 20 95/45 96 12/25/16 06:00 Mechanical Ventilator 12/25/16 04:25 40 12/25/16 04:00 98.7 12/23/16 16:35 15.0 Intake and Output 12/24/16 12/24/16 12/25/16 15:00 23:00 07:00 Intake Total 701.992 ml 810.144 ml 956.376 ml Output Total 705 ml 1110 ml 680 ml Balance -3.008 ml -299.856 ml 276.376 ml Exam Gen [place]: intubated/sedated HEENT: NC/AT, PERRLA, ETT NECK: supple, no thyromegaly THORAX: symmetrical, no obvious deformities CV: S1S2, tachycardiac, no M/G/R Lungs: coarse breath sounds throughout all lung masters, diminished at the bases , with end expiratory wheezing, improving Abd: soft, NT/ND, +BS, no rebound, no guarding, neg HSM, scaphoid EXT: 1+ edema, no ecchymosis, no clubbing, FROM, muscle wasting noted Neuro: intubated/sedated Psych: cannot assess Skin: scattered petechiae Results Result Diagram: 12/25/16 0842 12/25/16 0831 Results 24 hrs Laboratory Tests Test 12/24/16 11:00 12/24/16 14:15 12/25/16 05:32 12/25/16 07:50 Hematocrit 25.9 L 23.6 L Hemoglobin 8.5 L 7.8 L Urine Amorphous Urates FEW Urine Bacteria FEW Urine Bilirubin NEGATIVE Urine Clarity CLOUDY H Urine Color LT. YELLOW Urine Eosinophils % 0.0 Urine Glucose NEGATIVE Urine Hemoglobin 3+ H Urine Hyaline Casts OCCASIONAL Urine Ketones NEGATIVE Urine Leukocyte Esterase NEGATIVE Urine Microscopic RBC 5-10 Urine Microscopic WBC 0-2 Urine Nitrite NEGATIVE Urine Random Creatinine 59.90 Urine Random Sodium 52 Urine Specific [place] 1.025 Urine Squamous Epithelial Cells FEW Urine Total Protein Urine Uric Acid Crystals MANY Urine Urobilinogen 0.2 E.U./dL Urine pH 5.0 Alanine Aminotransferase (ALT/SGPT) 21 Albumin 2.8 L Albumin/Globulin Ratio 0.60 Alkaline Phosphatase 77 Anion Gap 22 H Aspartate Amino Transf (AST/SGOT) 41 Basophils # Pending Basophils % Pending Blood Morphology Comment Blood Urea Nitrogen 45 H Calcium Level 6.5 L Carbon Dioxide Level 22 Chloride Level 105 Creatinine 2.31 H Direct Bilirubin 0.00 Eosinophils # Pending Eosinophils % Pending Globulin 4.60 H Glucose Level 80 Indirect Bilirubin 0.1 Lymphocytes # Pending Lymphocytes % Pending Mean Corpuscular Hemoglobin 27.5 L Mean Corpuscular Hemoglobin Concent 32.8 Mean Corpuscular Volume 83.8 Mean Platelet Volume 9.8 Monocytes # Pending Monocytes % Pending Neutrophils # Pending Neutrophils % Pending Nucleated Red Blood Cells # Pending Nucleated Red Blood Cells % Pending Platelet Count 18 #*L Potassium Level 3.5 Red Blood Count 2.82 L Red Cell Distribution Width 19.0 H Sodium Level 145 H Total Bilirubin 0.1 L Total Protein 7.4 White Blood Count 18.6 #H Arterial Blood HCO3 19.1 L Arterial Blood Base Excess -6.1 L Arterial Blood Oxygen Saturation 95.6 Dar Test ACCEPTAB Arterial Blood Gas Puncture Site Right Radial Arterial Blood Carboxyhemoglobin 0.3 Arterial Blood Date Drawn 12/25/2016 8:30:23 AM Arterial Blood Methemoglobin 0.5 Arterial Blood pCO2 (Temp correct) 36.1 Arterial Blood pH (Temp corrected) 7.341 L Arterial Blood pO2 (Temp corrected) 93.4 Blood Gas A-a O2 Differential 150.3 H Blood Gas Actual Respiration Rate 25 Blood Gas Low PEEP Setting 5.0 Blood Gas Modality VENT - AC Blood Gas Notified Time 12/25/2016 8:46:13 AM Blood Gas Notified Whom JLD Blood Gas Respiration Rate 24.0 Blood Gas Specimen Source Blood arterial Blood Gas Temperature 37.0 Blood Gas Tidal Volume 500.0 FiO2 40.0 Oxyhemoglobin Percent 94.8 Total Hemoglobin 8.0 L Test 12/25/16 08:31 12/25/16 08:42 Alanine Aminotransferase (ALT/SGPT) 25 Albumin 2.7 L Albumin/Globulin Ratio 0.60 Alkaline Phosphatase 76 Anion Gap 20 H Aspartate Amino Transf (AST/SGOT) 39 Basophils # Pending Basophils % Pending Blood Morphology Comment Blood Urea Nitrogen 44 H Calcium Level 6.6 L Carbon Dioxide Level 24 Chloride Level 106 Creatinine 2.26 H Direct Bilirubin 0.00 Eosinophils # Pending Eosinophils % Pending Globulin 4.50 H Glucose Level 82 Hematocrit 22.4 L Hemoglobin 7.5 L Indirect Bilirubin 0.1 Lymphocytes # Pending Lymphocytes % Pending Mean Corpuscular Hemoglobin 27.6 L Mean Corpuscular Hemoglobin Concent 33.4 Mean Corpuscular Volume 82.5 Mean Platelet Volume 9.4 Monocytes # Pending Monocytes % Pending Neutrophils # Pending Neutrophils % Pending Nucleated Red Blood Cells # Pending Nucleated Red Blood Cells % Pending Platelet Count 16 *L 20 *L Potassium Level 3.5 Red Blood Count 2.71 L Red Cell Distribution Width 19.3 H Sodium Level 146 H Total Bilirubin 0.1 L Total Protein 7.2 White Blood Count 17.1 H Activated Partial Thromboplast Time Pending D-Dimer Pending Fibrinogen Pending INR International Normalized Ratio Pending Plasma Fibrin Degradation Products Pending Prothrombin Time Pending Prothrombin Time Ratio Pending Thrombin Time Pending Medications Medications Current Medications Sodium Chloride (NS) 1,000 ml @ 75 mls/hr [id number] IV Last administered on 20:51; Admin Dose 75 MLS/HR; Start 12/23/16 at 16:30 Ondansetron HCl (Zofran Inj) 4 mg Q6H PRN IV NAUSEA AND/OR VOMITING; Start 12/23 at 16:30 Nitroglycerin (Nitroglycerin (Sl Tab) 0.4 Mg) 1 tab Q5M PRN SL CHEST PAIN; Start 12/23/16 at 16:30 Acetaminophen (Tylenol Supp) 650 mg Q4H PRN ND PAIN LEVEL 1-3 OR FEVER Last administered on 12/25/16 01:06; Admin Dose 650 MG; Start 12/23/16 at 16:30 Morphine Sulfate (morphine) 2 mg Q4H PRN IV PAIN LEVEL 7-10; Start 12/23/16 at 16:30 Lorazepam (Ativan) 1 mg Q2H PRN IV ANXIETY Last administered on 12/24/16 22:13 ; Admin Dose 1 MG; Start 12/23/16 at 16:30 Bisacodyl (Dulcolax) 5 mg DAILY PRN PO CONSTIPATION; Start 12/23/16 at 16:30 Pantoprazole (Protonix Iv) 40 mg DAILY@06 IV Last administered on 12/25/16 05: 36; Admin Dose 40 MG; Start 12/24/16 at 06:00 Oseltamivir Phosphate 75 mg 75 mg Q12 PO Last administered on 12/24/16 20:51; Admin Dose 75 MG; Start 12/23/16 at 21:00; Stop 12/28/16 at 21:00 Propofol 100 ml @ 2.346 mls/ hr Q12H IV Last administered on 12/25/16 06:27; Admin Dose 18.768 MLS/HR; Start 12/23/16 at 22:00 Cefepime HCl 50 ml @ 100 mls/hr Q24H IVPB Last administered on 12/25/16 01:07 ; Admin Dose 100 MLS/HR; Start 12/25/16 at 02:00 Vancomycin HCl 250 ml @ 125 mls/hr Q36H IVPB Last administered on 12/25/16 05: 36; Admin Dose 125 MLS/HR; Start 12/25/16 at 06:00 Levofloxacin/ Dextrose (Levaquin 250 Mg/ D5W 50 ml (Pmx)) 50 ml @ 50 mls/hr Q24H IVPB ; Start 12/25/16 at 09:00 Furosemide (Lasix) 20 mg ONCE IV ; Start 12/25/16 at 09:00; Stop 12/26/16 at 08:59 HUMA THAKKAR MD Dec 25, 2016 09:17
--- NOTE | 2016-12-25 09:46 | CONS ---
Date/Time of Note Date/Time of Note DATE: 12/25/16 TIME: 09:44 Assessment/Plan Assessment/Plan Additional Assessment/Plan 1. Acute kidney injury, likely secondary to acute tubular necrosis in the setting of sepsis. 2. Acute hypoxemic respiratory failure, multifactorial, secondary to sepsis and secondary to pulmonary condition. 3. Acute pulmonary edema with influenza pneumonia. 4. History of congestive heart failure with diastolic heart failure. 5. History of chronic obstructive pulmonary disease. 6. History of gastroesophageal reflux disease. 7. History of smoking. 8. 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 PLAN: pt remains intubated, BUN/Cr stable, good urineoput, received one dose of IV lasix today AM pt has poor prognosis due to CML consider palliative care consult Consultation Date/Type/Reason Admit Date/Time Dec 23, 2016 at 15:37 Initial Consult Date 12/24/16 Type of Consultation: NEPHROLOGY Referring Provider: BEN COURTNEY MD 24 HR Interval Summary Free Text/Dictation pt remains intubated, BUN/Cr stable, good urineoput, received one dose of IV lasix today AM Exam/Review of Systems Vital Signs Vitals Vital Signs Date Time Temp Pulse Resp B/P Pulse Ox O2 Delivery O2 Flow Rate FiO2 12/25/16 08:00 99 12/25/16 06:30 20 95/45 96 12/25/16 06:00 Mechanical Ventilator 12/25/16 04:25 40 12/25/16 04:00 98.7 12/23/16 16:35 15.0 Intake and Output 12/24/16 12/24/16 12/25/16 15:00 23:00 07:00 Intake Total 701.992 ml 810.144 ml 956.376 ml Output Total 705 ml 1110 ml 680 ml Balance -3.008 ml -299.856 ml 276.376 ml Exam GENERAL: Currently sedated, intubated on ventilator. HEENT: ET tube in place. NECK: Jugular venous distention up to the mid neck. LUNGS: Bilateral coarse breath sounds from the ventilator. HEART: S1, S2, tachycardia. ABDOMEN: Soft, nontender, nondistended. EXTREMITIES: No clubbing, cyanosis, edema. NEUROLOGICAL: Uncooperative and unable to assess due to the patient currently sedated, intubated on ventilator. SKIN: No rash, no decubitus. Results Result Diagram: 12/25/16 0842 12/25/16 0831 Results 24 hrs Laboratory Tests Test 12/24/16 11:00 12/24/16 14:15 12/25/16 05:32 12/25/16 07:50 Hematocrit 25.9 L 23.6 L Hemoglobin 8.5 L 7.8 L Urine Amorphous Urates FEW Urine Bacteria FEW Urine Bilirubin NEGATIVE Urine Clarity CLOUDY H Urine Color LT. YELLOW Urine Eosinophils % 0.0 Urine Glucose NEGATIVE Urine Hemoglobin 3+ H Urine Hyaline Casts OCCASIONAL Urine Ketones NEGATIVE Urine Leukocyte Esterase NEGATIVE Urine Microscopic RBC 5-10 Urine Microscopic WBC 0-2 Urine Nitrite NEGATIVE Urine Random Creatinine 59.90 Urine Random Sodium 52 Urine Specific [place] 1.025 Urine Squamous Epithelial Cells FEW Urine Total Protein Urine Uric Acid Crystals MANY Urine Urobilinogen 0.2 E.U./dL Urine pH 5.0 Alanine Aminotransferase (ALT/SGPT) 21 Albumin 2.8 L Albumin/Globulin Ratio 0.60 Alkaline Phosphatase 77 Anion Gap 22 H Aspartate Amino Transf (AST/SGOT) 41 Basophils # Pending Basophils % Pending Blood Morphology Comment Blood Urea Nitrogen 45 H Calcium Level 6.5 L Carbon Dioxide Level 22 Chloride Level 105 Creatinine 2.31 H Direct Bilirubin 0.00 Eosinophils # Pending Eosinophils % Pending Globulin 4.60 H Glucose Level 80 Indirect Bilirubin 0.1 Lymphocytes # Pending Lymphocytes % Pending Mean Corpuscular Hemoglobin 27.5 L Mean Corpuscular Hemoglobin Concent 32.8 Mean Corpuscular Volume 83.8 Mean Platelet Volume 9.8 Monocytes # Pending Monocytes % Pending Neutrophils # Pending Neutrophils % Pending Nucleated Red Blood Cells # Pending Nucleated Red Blood Cells % Pending Platelet Count 18 #*L Potassium Level 3.5 Red Blood Count 2.82 L Red Cell Distribution Width 19.0 H Sodium Level 145 H Total Bilirubin 0.1 L Total Protein 7.4 White Blood Count 18.6 #H Arterial Blood HCO3 19.1 L Arterial Blood Base Excess -6.1 L Arterial Blood Oxygen Saturation 95.6 Dar Test ACCEPTAB Arterial Blood Gas Puncture Site Right Radial Arterial Blood Carboxyhemoglobin 0.3 Arterial Blood Date Drawn 12/25/2016 8:30:23 AM Arterial Blood Methemoglobin 0.5 Arterial Blood pCO2 (Temp correct) 36.1 Arterial Blood pH (Temp corrected) 7.341 L Arterial Blood pO2 (Temp corrected) 93.4 Blood Gas A-a O2 Differential 150.3 H Blood Gas Actual Respiration Rate 25 Blood Gas Low PEEP Setting 5.0 Blood Gas Modality VENT - AC Blood Gas Notified Time 12/25/2016 8:46:13 AM Blood Gas Notified Whom JLD Blood Gas Respiration Rate 24.0 Blood Gas Specimen Source Blood arterial Blood Gas Temperature 37.0 Blood Gas Tidal Volume 500.0 FiO2 40.0 Oxyhemoglobin Percent 94.8 Total Hemoglobin 8.0 L Test 12/25/16 08:31 12/25/16 08:42 Alanine Aminotransferase (ALT/SGPT) 25 Albumin 2.7 L Albumin/Globulin Ratio 0.60 Alkaline Phosphatase 76 Anion Gap 20 H Aspartate Amino Transf (AST/SGOT) 39 Basophils # Pending Basophils % Pending Blood Morphology Comment Blood Urea Nitrogen 44 H Calcium Level 6.6 L Carbon Dioxide Level 24 Chloride Level 106 Creatinine 2.26 H Direct Bilirubin 0.00 Eosinophils # Pending Eosinophils % Pending Globulin 4.50 H Glucose Level 82 Hematocrit 22.4 L Hemoglobin 7.5 L Indirect Bilirubin 0.1 Lymphocytes # Pending Lymphocytes % Pending Mean Corpuscular Hemoglobin 27.6 L Mean Corpuscular Hemoglobin Concent 33.4 Mean Corpuscular Volume 82.5 Mean Platelet Volume 9.4 Monocytes # Pending Monocytes % Pending Neutrophils # Pending Neutrophils % Pending Nucleated Red Blood Cells # Pending Nucleated Red Blood Cells % Pending Platelet Count 16 *L 20 *L Potassium Level 3.5 Red Blood Count 2.71 L Red Cell Distribution Width 19.3 H Sodium Level 146 H Total Bilirubin 0.1 L Total Protein 7.2 White Blood Count 17.1 H Activated Partial Thromboplast Time Pending D-Dimer Pending Fibrinogen Pending INR International Normalized Ratio Pending Plasma Fibrin Degradation Products Pending Prothrombin Time Pending Prothrombin Time Ratio Pending Thrombin Time Pending Medications Medications Current Medications Sodium Chloride (NS) 1,000 ml @ 75 mls/hr [id number] IV Last administered on t 20:51; Admin Dose 75 MLS/HR; Start 12/23/16 at 16:30 Ondansetron HCl (Zofran Inj) 4 mg Q6H PRN IV NAUSEA AND/OR VOMITING; Start 12/23 at 16:30 Nitroglycerin (Nitroglycerin (Sl Tab) 0.4 Mg) 1 tab Q5M PRN SL CHEST PAIN; Start 12/23/16 at 16:30 Acetaminophen (Tylenol Supp) 650 mg Q4H PRN CO PAIN LEVEL 1-3 OR FEVER Last administered on 12/25/16 01:06; Admin Dose 650 MG; Start 12/23/16 at 16:30 Morphine Sulfate (morphine) 2 mg Q4H PRN IV PAIN LEVEL 7-10; Start 12/23/16 at 16:30 Lorazepam (Ativan) 1 mg Q2H PRN IV ANXIETY Last administered on 12/24/16 22:13 ; Admin Dose 1 MG; Start 12/23/16 at 16:30 Bisacodyl (Dulcolax) 5 mg DAILY PRN PO CONSTIPATION; Start 12/23/16 at 16:30 Pantoprazole (Protonix Iv) 40 mg DAILY@06 IV Last administered on 12/25/16 05: 36; Admin Dose 40 MG; Start 12/24/16 at 06:00 Oseltamivir Phosphate 75 mg 75 mg Q12 PO Last administered on 12/24/16 20:51; Admin Dose 75 MG; Start 12/23/16 at 21:00; Stop 12/28/16 at 21:00 Propofol 100 ml @ 2.346 mls/ hr Q12H IV Last administered on 12/25/16 06:27; Admin Dose 18.768 MLS/HR; Start 12/23/16 at 22:00 Cefepime HCl 50 ml @ 100 mls/hr Q24H IVPB Last administered on 12/25/16 01:07 ; Admin Dose 100 MLS/HR; Start 12/25/16 at 02:00 Vancomycin HCl 250 ml @ 125 mls/hr Q36H IVPB Last administered on 12/25/16 05: 36; Admin Dose 125 MLS/HR; Start 12/25/16 at 06:00 Levofloxacin/ Dextrose (Levaquin 250 Mg/ D5W 50 ml (Pmx)) 50 ml @ 50 mls/hr Q24H IVPB ; Start 12/25/16 at 09:00 Furosemide 20 mg 20 mg ONCE IV ; Start 12/25/16 at 09:00; Stop 12/26/16 at 08:59 Ferric Sodium Gluconate Complex/ Sodium Chloride (Ferrlecit/NS) 110 ml @ 100 mls/hr ONCE IVPB ; Start 12/25/16 at 11:00; Stop 12/25/16 at 12:05 GILL PEREIRA MD Dec 25, 2016 09:46
[2016-12-25 09:54] LABS: INR 1.47; PROTIME 17.9 Sec (12.2-14.2); PT RATIO 1.4
[2016-12-25 09:55] LABS: PARTIAL THROMBOPLASTIN TIME 41.3 Sec (25.0-35.0); THROMBIN TIME 16.4 SEC (13.8-19.1)
[2016-12-25] MEDS: OSELTAMIVIR PHOSPHATE (6 MG/ML PO SYG) PO SCH ×3 (10:56→21:41)
[2016-12-25 10:58] LABS: EOSINOPHILS # 0.6 10^3/ul (0.0-0.5); LYMPHOCYTES # 8.2 10^3/ul (0.8-2.9); MONOCYTE # 4.1 10^3/ul (0.3-0.9); NEUTROPHIL # 5.2 10^3/ul (1.6-7.5); PLATELET ESTIMATE PLT APPEAR DECREASED
[2016-12-25] MEDS ORDERED: SOD FERRIC GLUC COMPLX 125 MG in SOD CHLORIDE 0.9% 100 ML IVPB SCH (11:00)
--- NOTE | 2016-12-25 11:05 | CONS ---
DATE OF ADMISSION: 12/23/2016 DATE OF CONSULTATION: 12/25/2016 REASON FOR CONSULTATION: Myelodysplastic syndrome and respiratory failure. PHYSICIAN REQUESTING CONSULTATION: Dr. Walter Doyle Dear Dr. Doyle: Thank you very much for asking me to see this very interesting and pleasant patient in hematologic c onsultation. As you are aware, I am familiar with Mr. Townsend who I initially saw in March 2016. At that time, the patient was admitted with complaints of increasing shortness of breath. The patient at that time was found to have an abnormal CBC with anemia and thrombocytopenia. The patient during that hospitalization was also found to have some evidence of splenomegaly. A bon e marrow aspiration and biopsy was performed which did show evidence of a myelodysplastic syndrome. 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 The patient has required intermittent transfusions with red blood cells and occasionally platelets. The patient was treated initially with azacitidine. He received at least two 7-day cycles of this w ithout benefit. During this time, the patient's transfusion requirement has increased. The patient also has recently been started on lenalidomide. He was to take 10 mg per day for 21 day s and that was to be repeated every 28 days. The patient was seen in the office on the day of admission which was 12/23/2016. At that time, the patient was experiencing increasing shortness of breath. The patient was given oxygen in the office without benefit and transported to the emergency room. In the emergency room, the patient did have a chest x-ray which did show some interstitial prominenc e. There was also mild potential alveolar infiltrate in the left lower lobe. The patient, as noted, was increasingly short of breath. In the interim, a pCO2 was noted to be 159 with a pO2 of only 63. He had a pH of 6.748. The patient did require intubation and remains on intubation and ventilator support at this time. T he patient also is being sedated with propofol. On admission, the patient's white count was 16,300, hemoglobin 7.7, hematocrit 23.9 and platelet cou nt 14,000. The peripheral smear did show 3% blasts, 21% myelocytes, 8 metamyelocytes, 50% monocytes . Other laboratory includes a creatinine of 2.16, BUN of 37. Sodium 139, potassium 3.7, total bilirub in 0.3, AST 30, ALT 17, alkaline phosphatase 84. Protime of 16.2 seconds and INR 1.29. Other studi es have demonstrated that the patient is found to have a nasal swab was positive for influenza A, bu t negative for influenza B. Other laboratory during this hospitalization has demonstrated on admission a BNP of 3270 and initial ly a troponin of 0.013. Repeat troponin was 0.023 and then 0.434. As noted, the patient has required intubation. MEDICATIONS: At this time include: 1. Levofloxacin. 2. Vancomycin. 3. Cefepime. 4. Pantoprazole 5. Albuterol. 6. Atrovent. 7. Tamiflu suspension. PAST MEDICAL HISTORY: Includes the previously noted diagnosis of myelodysplastic syndrome. The pat wil also had some type of surgery approximately 20 years ago in [facility] for what may have been GI b leeding. It is unclear if this was ulcer disease. SOCIAL HISTORY: The patient is a smoker. He continues to smoke 1 pack of cigarettes every 3 to 4 d ays. He has done this for 30 years. He has had no other known exposures. PHYSICAL EXAMINATION GENERAL: At this time reveals a thin, chronically ill-appearing male who is sedated and i ntubated with ventilator support. VITAL SIGNS: Temperature 98.7, pulse 99, respirations 20, blood pressure 95/45. The patient's puls e oximetry is 96% on an FIO2 of 40%. SKIN: Pale with scattered ecchymoses. HEENT: Normocephalic. No evidence of trauma. Pupils equal, round, react to light and accommodatio n. Sclerae nonicteric. Oral mucosa is moist without lesions. There is an endotracheal tube in philippe ce. NECK: Supple, no jugular venous distention or thyroid enlargement. CHEST: Some scattered rales in the left base. No rhonchi, wheezes or rubs. CARDIOVASCULAR: No S3, S4 or murmurs. ABDOMEN: Flat and soft. The spleen is palpable approximately 4 cm below the left costal margin in the anterior axillary line, there is no ascites. EXTREMITIES: Good range of motion, no clubbing, edema or cyanosis. No palpable cords or [place] sig n. DISCUSSION: This patient does have a known myelodysplastic syndrome. He has had worsening pancytop enia has been refractory to therapy. The patient does have circulating blasts and metamyelocytes, b ut does not have any obvious evidence of conversion to an acute leukemia. At this time, the patient has manifested respiratory failure which is likely due to superimposed inf luenza. We will try to discuss further with the family, the patient's outlook which unfortunately is quite p oor. It is likely that we not see any response to any of the therapies. In the meantime, we will c ontinue with red blood cell and platelet support as necessary. Dictated By: OPAL MOSES MD SR/NTS Conf#: [id number] DID#: [id number]
--- NOTE | 2016-12-25 11:16 | RADRPT ---
PROCEDURE: XR Chest. CLINICAL INDICATION: Pneumonia TECHNIQUE: An AP view of the chest was obtained. COMPARISON: Chest x-ray dated 12/24/2016 FINDINGS: The endotracheal tube tip is approximately 5.7 cm above the errol. The tip of the enteric tube ex tends below the left diaphragm. There is prominence of the interstitial and central pulmonary vascular markings. No focal airspac e opacification or pneumothorax is seen. The cardiomediastinal silhouette is mildly enlarged . Eliseo cifications are seen within the aortic arch. The osseous structures are unremarkable. IMPRESSION: 1. Findings suggestive of pulmonary vascular congestion/interstitial edema. Lung aeration is mildl y improved when compared to the prior examination. 2. Mild cardiomegaly and aortic atherosclerosis. 3. Tubes and lines, as described above. RPTAT: HH .Yamilet Barnard MD, Date Time Electronically viewed and signed by .Yamilet Barnard MD, on 12/25/2016 11:16 .G/
--- NOTE | 2016-12-25 11:43 | CONS ---
Date/Time of Note Date/Time of Note DATE: 12/25/16 TIME: 11:35 Assessment/Plan Assessment/Plan Chief Complaint/Hosp Course IMPRESSION: 1. 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 Cardiomyopathy with decreased left ventricular ejection fraction, last being approximately 45% to 50% by echo 11/2016. 3. Hypotension, borderline. 4. Influenza positive. 5. History of chronic myelogenous leukemia. 6. Renal failure. 7. Thrombocytopenia, severe. 8. Anemia. 9. Leukocytosis. Recc: -Tele -serial ecg's -continue gentle lasix diuresis -Transfuse platelets as you are doing -Continue abx's and f/u cx data -Possibly decrease IVF hydration Problems: Consultation Date/Type/Reason Admit Date/Time Dec 23, 2016 at 15:37 Initial Consult Date 12/24/16 Type of Consultation: cardiology Reason for Consultation CHF Referring Provider: BEN COURTNEY MD Exam/Review of Systems Vital Signs Vitals Vital Signs Date Time Temp Pulse Resp B/P Pulse Ox O2 Delivery O2 Flow Rate FiO2 12/25/16 11:00 94 22 99/57 99 Mechanical Ventilator 12/25/16 08:00 98.8 12/25/16 04:25 40 12/23/16 16:35 15.0 Intake and Output 12/24/16 12/24/16 12/25/16 15:00 23:00 07:00 Intake Total 701.992 ml 810.144 ml 956.376 ml Output Total 705 ml 1110 ml 680 ml Balance -3.008 ml -299.856 ml 276.376 ml Exam Review of Systems: CONSTITUTIONAL: No fevers, chills. PULMONARY: intubated CARDIOVASCULAR: No obvious chest pain/palpitations GASTROINTESTINAL: No nausea/vomiting. GENITOURINARY: No hematuria/dysuria. MUSCULOSKELETAL: No obvious myagias/arthalgias. PSYCHIATRIC: No docuemented depression. NEUROLOGIC: sedated Constitutional: other (sedated) ENMT: intubated Neck: jvd (9 cm water), supple Respiratory: diminished breath sounds (at bases/B) Cardiovascular: regular rate and rhythm Gastrointestinal: non-tender, soft Musculoskeletal: muscle tone (normal) Extremities: edema (none) Neurological: other (sedated) Results Result Diagram: 12/25/16 0842 12/25/16 0831 Results 24 hrs Laboratory Tests Test 12/24/16 14:15 12/25/16 05:32 12/25/16 07:50 12/25/16 08:31 Urine Amorphous Urates FEW Urine Bacteria FEW Urine Bilirubin NEGATIVE Urine Clarity CLOUDY H Urine Color LT. YELLOW Urine Eosinophils % 0.0 Urine Glucose NEGATIVE Urine Hemoglobin 3+ H Urine Hyaline Casts OCCASIONAL Urine Ketones NEGATIVE Urine Leukocyte Esterase NEGATIVE Urine Microscopic RBC 5-10 Urine Microscopic WBC 0-2 Urine Nitrite NEGATIVE Urine Random Creatinine 59.90 Urine Random Sodium 52 Urine Specific [place] 1.025 Urine Squamous Epithelial Cells FEW Urine Total Protein Urine Uric Acid Crystals MANY Urine Urobilinogen 0.2 E.U./dL Urine pH 5.0 Alanine Aminotransferase (ALT/SGPT) 21 25 Albumin 2.8 L 2.7 L Albumin/Globulin Ratio 0.60 0.60 Alkaline Phosphatase 77 76 Anion Gap 22 H 20 H Aspartate Amino Transf (AST/SGOT) 41 39 Basophils # Pending Basophils % Pending Blood Morphology Comment Blood Urea Nitrogen 45 H 44 H Calcium Level 6.5 L 6.6 L Carbon Dioxide Level 22 24 Chloride Level 105 106 Creatinine 2.31 H 2.26 H Direct Bilirubin 0.00 0.00 Eosinophils # 0.6 H Pending Eosinophils % 3.0 Pending Globulin 4.60 H 4.50 H Glucose Level 80 82 Hematocrit 23.6 L 22.4 L Hemoglobin 7.8 L 7.5 L Indirect Bilirubin 0.1 0.1 Lymphocytes # 8.2 H Pending Lymphocytes % 44.0 Pending Mean Corpuscular Hemoglobin 27.5 L 27.6 L Mean Corpuscular Hemoglobin Concent 32.8 33.4 Mean Corpuscular Volume 83.8 82.5 Mean Platelet Volume 9.8 9.4 Monocytes # 4.1 H Pending Monocytes % 22.0 H Pending Neutrophils # 5.2 Pending Neutrophils % 28.0 L Pending Nucleated Red Blood Cells # Pending Nucleated Red Blood Cells % 0.0 Pending Platelet Count 18 #*L 16 *L Platelet Estimate PLT APPEAR DECREASED Potassium Level 3.5 3.5 Red Blood Count 2.82 L 2.71 L Red Cell Distribution Width 19.0 H 19.3 H Sodium Level 145 H 146 H Total Bilirubin 0.1 L 0.1 L Total Protein 7.4 7.2 White Blood Count 18.6 #H 17.1 H Arterial Blood HCO3 19.1 L Arterial Blood Base Excess -6.1 L Arterial Blood Oxygen Saturation 95.6 Dar Test ACCEPTAB Arterial Blood Gas Puncture Site Right Radial Arterial Blood Carboxyhemoglobin 0.3 Arterial Blood Date Drawn 12/25/2016 8:30:23 AM Arterial Blood Methemoglobin 0.5 Arterial Blood pCO2 (Temp correct) 36.1 Arterial Blood pH (Temp corrected) 7.341 L Arterial Blood pO2 (Temp corrected) 93.4 Blood Gas A-a O2 Differential 150.3 H Blood Gas Actual Respiration Rate 25 Blood Gas Low PEEP Setting 5.0 Blood Gas Modality VENT - AC Blood Gas Notified Time 12/25/2016 8:46:13 AM Blood Gas Notified Whom JLD Blood Gas Respiration Rate 24.0 Blood Gas Specimen Source Blood arterial Blood Gas Temperature 37.0 Blood Gas Tidal Volume 500.0 FiO2 40.0 Oxyhemoglobin Percent 94.8 Total Hemoglobin 8.0 L Test 12/25/16 08:42 Activated Partial Thromboplast Time 41.3 H D-Dimer Pending Fibrinogen 290.0 INR International Normalized Ratio 1.47 Plasma Fibrin Degradation Products Pending Platelet Count 20 *L Prothrombin Time 17.9 H Prothrombin Time Ratio 1.4 Thrombin Time 16.4 Medications Medications Current Medications Sodium Chloride (NS) 1,000 ml @ 75 mls/hr [id number] IV Last administered on 20:51; Admin Dose 75 MLS/HR; Start 12/23/16 at 16:30 Ondansetron HCl (Zofran Inj) 4 mg Q6H PRN IV NAUSEA AND/OR VOMITING; Start 12/23 at 16:30 Nitroglycerin (Nitroglycerin (Sl Tab) 0.4 Mg) 1 tab Q5M PRN SL CHEST PAIN; Start 12/23/16 at 16:30 Acetaminophen (Tylenol Supp) 650 mg Q4H PRN [place] PAIN LEVEL 1-3 OR FEVER Last administered on 12/25/16 01:06; Admin Dose 650 MG; Start 12/23/16 at 16:30 Morphine Sulfate (morphine) 2 mg Q4H PRN IV PAIN LEVEL 7-10; Start 12/23/16 at 16:30 Lorazepam (Ativan) 1 mg Q2H PRN IV ANXIETY Last administered on 12/24/16 22:13 ; Admin Dose 1 MG; Start 12/23/16 at 16:30 Bisacodyl (Dulcolax) 5 mg DAILY PRN PO CONSTIPATION; Start 12/23/16 at 16:30 Pantoprazole (Protonix Iv) 40 mg DAILY@06 IV Last administered on 12/25/16 05: 36; Admin Dose 40 MG; Start 12/24/16 at 06:00 Oseltamivir Phosphate 75 mg 75 mg Q12 PO Last administered on 12/25/16 10:56; Admin Dose 75 MG; Start 12/23/16 at 21:00; Stop 12/28/16 at 21:00 Propofol 100 ml @ 2.346 mls/ hr Q12H IV Last administered on 12/25/16 06:27; Admin Dose 18.768 MLS/HR; Start 12/23/16 at 22:00 Cefepime HCl 50 ml @ 100 mls/hr Q24H IVPB Last administered on 12/25/16 01:07 ; Admin Dose 100 MLS/HR; Start 12/25/16 at 02:00 Vancomycin HCl 250 ml @ 125 mls/hr Q36H IVPB Last administered on 12/25/16 05: 36; Admin Dose 125 MLS/HR; Start 12/25/16 at 06:00 Levofloxacin/ Dextrose (Levaquin 250 Mg/ D5W 50 ml (Pmx)) 50 ml @ 50 mls/hr Q24H IVPB Last administered on 12/25/16 10:03; Admin Dose 50 MLS/HR; Start 12/25 at 09:00 Furosemide 20 mg 20 mg ONCE IV ; Start 12/25/16 at 09:00; Stop 12/26/16 at 08:59 Ferric Sodium Gluconate Complex/ Sodium Chloride (Ferrlecit/NS) 110 ml @ 100 mls/hr ONCE IVPB ; Start 12/25/16 at 11:00; Stop 12/25/16 at 12:05 MILENA VELA Dec 25, 2016 11:43
[2016-12-25 12:19] LABS: EOSINOPHILS # 0.5 10^3/ul (0.0-0.5); LYMPHOCYTES # 6.5 10^3/ul (0.8-2.9); MONOCYTE # 6.3 10^3/ul (0.3-0.9); NEUTROPHIL # 3.2 10^3/ul (1.6-7.5); PLATELET ESTIMATE PLT APPEAR DECREASED
[2016-12-25 12:45] LABS: FIBRIN SPLIT PRODUCT <10 ug/ml (<10)
--- NOTE | 2016-12-25 13:32 | CONS ---
DATE OF ADMISSION: 12/23/2016 DATE OF CONSULTATION: REQUESTING PHYSICIAN: Gold Martinez MD HISTORY OF PRESENT ILLNESS: A 71-year-old [place] male who was admitted on 12/23/2016, with a ruthie f complaint of cough, shortness of breath and congestion x1 week. The patient had recently been dis charged from the hospital approximately 1 week prior, after receiving treatment for a myelodysplasti c syndrome, chronic myelomonocytic leukemia. On admission, the patient was noted to be in respirato ry distress. Arterial blood gases at that time revealed a pH of 6.75, pCO2 of 159 and a pO2 of 63. The patient was intubated and placed on a respirator. At the time of admission, he was noted to have a wide complex tachycardia and this was treated appro priately. White count was 16,100 with 4 bands, 3% blasts and basophils. Urinalysis had specific gr avity of 1025, and was, aside from occult blood, negative for leukocyte esterase or nitrite. Red ce lls and white cells were both 0 to 2 per high power field. The chest x-ray revealed nodular densiti es in the right upper lobe. The patient was admitted to the intensive care unit. He has been repor tedly alert and awake and arousable, except now he is sedated and is currently on Levaquin, vancomyc in and cefepime and Tamiflu. The patient had a positive serology test for influenza A and urine cul ture is negative, is showing essentially mixed gram-positive organisms. Nares negative for MRSA. S putum cultures have not been obtained or reported. The patient's white count today is 28,500 with 2 8 polys, 14 lymphs, 2 metamyelocytes, 7 myelocytes and 3 blasts. Hematocrit 22%, PT/INR 1.47. PAST MEDICAL HISTORY: Monomyelocytic leukemia, chronic, diabetes mellitus, hypertension and chronic obstructive pulmonary disease and gastroesophageal reflux disease. ALLERGIES: HE HAS NO KNOWN ALLERGIES. PAST SURGICAL HISTORY: He had an operation in [facility] for what is presumed to be peptic ulcer disea se. MEDICATIONS: Include: 1. Furosemide. 2. Vancomycin. 3. Cefepime. 4. Levaquin. 5. Pulmonary inhalation therapy including albuterol and ipratropium bromide every 4 hours. 6. Pantoprazole 7. Propofol drip. 8. Tamiflu every 12 hours. PRN MEDICATION: Including 1. Zofran. 2. Nitroglycerin. 3. Morphine 4. Lorazepam. 5. Bisacodyl. REVIEW OF SYSTEMS: The patient is unable to give a review of systems. SOCIAL HISTORY: The patient lives at home. He has a history of tobacco use, but it states he is no nsmoking, so that may he is using oral tobacco. PHYSICAL EXAMINATION GENERAL: A well-developed, chronically ill-appearing [place] male lying in bed, intubated with a n asogastric tube in place and an intravenous line and monitor leads. The patient is sedated. HEENT: Pupils are constricted and reactive sluggishly. NECK: There is no jugular venous distention. CHEST: Relatively clear bilaterally. HEART: Regular, rate is 92, rhythm is sinus via the monitor. ABDOMEN: Soft, no palpable organs or masses. EXTREMITIES: Reveal trace edema of both feet. SKIN: There is no rash or petechiae. NEUROLOGIC: The patient was not observed to move any extremities. INITIAL IMPRESSION: 1. Type A influenza, acute hypercapnic respiratory failure, multiorgan system failure, which I woul d expect to progress somewhat but not become a serious problem resulting from the extreme pH of 6.7 5. 2. Myelodysplastic syndrome, chronic myelomonocytic leukemia with splenomegaly 3. Chronic obstructive pulmonary disease. 4. Diabetes mellitus. 5. Gastroesophageal reflux disease. RECOMMENDATIONS: 1. I would continue Tamiflu. Begin the patient on prophylactic antibiotic for post-influenzal supe rinfection, which is usually from staph or streptococcal pneumonia. Cover with ceftriaxone 1 gram I V daily. 2. Obtain sputum cultures. 3. Discontinue the other antibiotics unless there is indication. Thank you for referring this interesting patient to Dr. Peña. Dictated By: Jerel SALCEDO MD for CORRINA PEÑA MD EC/NTS Conf#: [id number] DID#: [id number]
[2016-12-25] MEDS ORDERED: CEFTRIAXONE 1 GM/50 ML (PMX) 50 ML IVPB SCH (14:00)
--- NOTE | 2016-12-25 20:19 | RADRPT ---
PROCEDURE: XR Chest. CLINICAL INDICATION: Nasogastric tube placement. TECHNIQUE: AP Portable chest. COMPARISON: 12/25/2016 examination performed earlier the same day. FINDINGS: There is mild to moderate cardiomegaly. There is moderate pulmonary vascular congestion which is sl ightly improved compared to the prior. An endotracheal tube tip is in the mid trachea. A nasogastric tube tip extends into the stomach. IMPRESSION: No acute findings. RPTAT: HIKT .Justino Rahman MD, MD Date Time Electronically viewed and signed by .Justino Rahman MD, MD on 12/25/2016 20:18 .T/
[2016-12-26] VITALS (55 sets, daily range): BP systolic 91–144; BP diastolic 44–85; PULSE 76–109; RESP 17–32
[2016-12-26] MEDS: IPRATROPIUM (HFA) 12.9 GM INHALER INH SCH ×6 (02:32→20:22)
[2016-12-26] MEDS: ALBUTEROL HFA 8 GM INHALER INH SCH ×6 (02:32→20:23)
[2016-12-26] MEDS: PROPOFOL 100 ML IV SCH ×5 (02:41→21:53)
[2016-12-26] MEDS: PANTOPRAZOLE 40 MG INJ IV SCH (05:39)
[2016-12-26 06:34] LABS: HEMATOCRIT 26.9 % (42.0-52.0); HEMOGLOBIN 8.9 g/dl (14.0-18.0); MEAN CORPUSCULAR HEMOGLOBIN 28.3 pg (29.0-33.0); MEAN CORPUSCULAR HGB CONC 33.2 g/dl (32.0-37.0); MEAN CORPUSCULAR VOLUME 85.1 fl (82.0-101.0); MEAN PLATELET VOLUME 10.8 fl (7.4-10.4); RED BLOOD COUNT 3.16 10^6/ul (4.70-6.10); RED CELL DISTRIBUTION WIDTH 18.9 % (11.5-14.5); UNCORRECTED WBC 11.3 10^3/ul (4.8-10.8); WHITE BLOOD COUNT 11.3 10^3/ul (4.8-10.8)
[2016-12-26 06:53] LABS: CONDITION 1; LH ANALYZER COMMENTS 1; SUSPECT 1
[2016-12-26 06:57] LABS: PLATELET COUNT 23 10^3/UL (140-440)
[2016-12-26 07:15] LABS: ALBUMIN 2.8 g/dl (3.3-4.9); POTASSIUM 3.4 mmol/L (3.5-5.1)
[2016-12-26 07:17] LABS: CREATININE 2.14 mg/dl (0.61-1.24)
[2016-12-26 07:18] LABS: ALBUMIN/GLOBULIN RATIO 0.58; CALCIUM 6.9 mg/dl (8.4-10.2); TOTAL PROTEIN 7.6 g/dl (6.1-8.1)
[2016-12-26] MEDS: OSELTAMIVIR PHOSPHATE (6 MG/ML PO SYG) PO SCH ×2 (08:21→21:53)
--- NOTE | 2016-12-26 08:45 | CONS ---
Date/Time of Note Date/Time of Note DATE: 12/26/16 TIME: 08:42 Assessment/Plan Assessment/Plan Additional Assessment/Plan Current ventilator settings; assist control of 24, tidal volume 500, PEEP of 5, 40% FiO2. Assessment and recommendation; 1. Patient admitted with severe bilateral pneumonia leading to respiratory failure with severe leukocytosis. 2. CML currently on chemotherapy. 3. Stable renal insufficiency. 4. History of COPD. Next 5. Significant radiological improvement. Next Stop sedation to assess mental status. Continue current ventilator settings. Discontinue Rocephin. Resume vancomycin, Levaquin, cefepime. Continue Tamiflu. Once a repeat chest x-ray is done from this morning and the patient is off sedation I will reassess him. Consultation Date/Type/Reason Admit Date/Time Dec 23, 2016 at 15:37 Initial Consult Date 12/24/16 Type of Consultation: Pulmonary/critical care Referring Provider: BEN COURTNEY MD 24 HR Interval Summary Free Text/Dictation Patient condition remains critical. Still requiring full ventilator support. Currently sedated with propofol drip. Patient has remained hemodynamically stable. General examination; elderly male, or intubated, sedated currently in no distress. Exam/Review of Systems Vital Signs Vitals Vital Signs Date Time Temp Pulse Resp B/P Pulse Ox O2 Delivery O2 Flow Rate FiO2 12/26/16 08:00 98.5 87 22 111/52 98 Mechanical Ventilator 12/26/16 08:00 40 12/23/16 16:35 15.0 Intake and Output 12/25/16 12/25/16 12/26/16 15:00 23:00 07:00 Intake Total 1735.144 ml 517.178 ml 1031.376 ml Output Total 570 ml 605 ml 490 ml Balance 1165.144 ml -87.822 ml 541.376 ml Exam HEENT examination; supple neck, no JVD. No lymphadenopathy. No thyromegaly. Pupils are small bilaterally. Next Chest examination; diminished but clear breath sounds. S1-S2 audible. No murmurs. Regular rate and rhythm. Abdomen examination; soft, no organomegaly. Bowel sounds audible. Extremity examination; no peripheral edema. [facility] examination; patient is sedated. Results Result Diagram: 12/26/16 0446 12/26/16 0446 Results 24 hrs Laboratory Tests Test 12/26/16 04:46 Alanine Aminotransferase (ALT/SGPT) 23 Albumin 2.8 L Albumin/Globulin Ratio 0.58 Alkaline Phosphatase 80 Anion Gap 19 H Aspartate Amino Transf (AST/SGOT) 43 Basophils # Basophils % Blood Morphology Comment Blood Urea Nitrogen 48 H Calcium Level 6.9 L Carbon Dioxide Level 24 Chloride Level 108 Creatinine 2.14 H Direct Bilirubin 0.00 Eosinophils # Eosinophils % Globulin 4.80 H Glucose Level 78 Hematocrit 26.9 #L Hemoglobin 8.9 L Indirect Bilirubin 0.0 Lymphocytes # Lymphocytes % Mean Corpuscular Hemoglobin 28.3 L Mean Corpuscular Hemoglobin Concent 33.2 Mean Corpuscular Volume 85.1 Mean Platelet Volume 10.8 H Monocytes # Neutrophils # Neutrophils % Nucleated Red Blood Cells # Nucleated Red Blood Cells % Platelet Count 23 #*L Potassium Level 3.4 L Red Blood Count 3.16 L Red Cell Distribution Width 18.9 H Sodium Level 148 H Total Bilirubin 0.0 L Total Protein 7.6 White Blood Count 11.3 #H Medications Medications Current Medications Sodium Chloride (NS) 1,000 ml @ 50 mls/hr Q20H IV Last administered on 15:44; Admin Dose 50 MLS/HR; Start 12/23/16 at 16:30 Ondansetron HCl (Zofran Inj) 4 mg Q6H PRN IV NAUSEA AND/OR VOMITING; Start 12/23 at 16:30 Nitroglycerin (Nitroglycerin (Sl Tab) 0.4 Mg) 1 tab Q5M PRN SL CHEST PAIN; Start 12/23/16 at 16:30 Acetaminophen (Tylenol Supp) 650 mg Q4H PRN [place] PAIN LEVEL 1-3 OR FEVER Last administered on 12/25/16 01:06; Admin Dose 650 MG; Start 12/23/16 at 16:30 Morphine Sulfate (morphine) 2 mg Q4H PRN IV PAIN LEVEL 7-10; Start 12/23/16 at 16:30 Lorazepam (Ativan) 1 mg Q2H PRN IV ANXIETY Last administered on 12/24/16 22:13 ; Admin Dose 1 MG; Start 12/23/16 at 16:30 Bisacodyl (Dulcolax) 5 mg DAILY PRN PO CONSTIPATION; Start 12/23/16 at 16:30 Pantoprazole (Protonix Iv) 40 mg DAILY@06 IV Last administered on 12/26/16 05: 39; Admin Dose 40 MG; Start 12/24/16 at 06:00 Oseltamivir Phosphate 75 mg 75 mg Q12 PO Last administered on 12/26/16 08:21; Admin Dose 75 MG; Start 12/23/16 at 21:00; Stop 12/28/16 at 21:00 Propofol (Diprivan) 100 ml @ 2.346 mls/ hr Q12H IV Last administered on 07:41; Admin Dose 23.46 MLS/HR; Start 12/23/16 at 22:00 Furosemide 20 mg 20 mg ONCE IV Last administered on 12/25/16 15:47; Admin Dose 20 MG; Start 12/25/16 at 09:00; Stop 12/26/16 at 08:59 Cefepime HCl 50 ml @ 100 mls/hr Q12 IVPB ; Start 12/26/16 at 09:00; Status UNV Vancomycin HCl (Vancocin) 250 ml @ 125 mls/hr Q24H IVPB ; Start 12/26/16 at 09: 00; Status UNV MYESHA OLIVER Dec 26, 2016 08:45
--- NOTE | 2016-12-26 09:18 | PN ---
Date/Time of Note Date/Time of Note DATE: 12/26/16 TIME: 09:13 Assessment/Plan VTE Prophylaxis VTE Prophylaxis Intervention: contraindicated VTE Contraindication Reason: thrombocytopenia Lines/Catheters IV Catheter Type (from Nrsg): Peripheral IV Urinary Cath still in place: Yes Reason Cath still needed: terminal illness/intractable pain Assessment/Plan Assessment/Plan 71 yo male with a past medical history of CML on chemotherapy, MDS, GERD, COPD, Anemia of chronic disease, who presents with acute shortness of breath for the last four days. 1. Sepsis 2/2 to Influenza Pneumonia - consult to ID placed, IV antibiotics - resume HCAP,on tamiflu 2. Acute hypoxemic respiratory failure - s/p intubation - severe acidosis - improving - appreciate pulm recs - wean as tolerated - improving ABG 3. Severe thrombocytopenia - replete - recheck - replete today - check DIC panel - medication induced?- replete if < 20K 4. Acute on chronic renal failure - 2/2 to sepsis - IVF - renally adjust medications, avoid nephrotoxins, worsening, appreciate renal consult 5. Anemia - of chronic disease - CA - will transfuse 2 units PRBCS, check serial H/H q6h - transfuse as per hem/onc, repeat transfusion, add ferrilicit 6. CML/MDS on chemo - continue with hem/onc recs 7. CHF with diastolic heart failure - consult cardiology, type II NSTEMI ? - demand ischemia, recent ECHO EF 45%, diastolic dysfunction 8. COPD - see #1 9. GERD - continue with IV protonix 10. Smoking abuse - advised patient on cessation 11. GI ppx - protonix 12. DVT ppx - contraindicated for anticoagulation - monitor acute changes dispo - f/u recs, monitor changes, prognosis is guarded/poor - f/u palliative care consult - if no improvement, code status needs to be reassessed this critical care note took greater than 40 min to complete Subjective 24 Hr Interval Summary Free Text/Dictation Patient was noted to be agitated last night, requiring increased sedation. Otherwise no acute events. Spoke to the nurse and consultants about the care plan. 15 minutes spent. Exam/Review of Systems Vital Signs Vitals Vital Signs Date Time Temp Pulse Resp B/P Pulse Ox O2 Delivery O2 Flow Rate FiO2 12/26/16 08:00 98.5 87 22 111/52 98 Mechanical Ventilator 12/26/16 08:00 40 12/23/16 16:35 15.0 Intake and Output 12/25/16 12/25/16 12/26/16 15:00 23:00 07:00 Intake Total 1735.144 ml 517.178 ml 1031.376 ml Output Total 570 ml 605 ml 490 ml Balance 1165.144 ml -87.822 ml 541.376 ml Exam Gen [place]: intubated/sedated HEENT: NC/AT, PERRLA, ETT NECK: supple, no thyromegaly THORAX: symmetrical, no obvious deformities CV: S1S2, tachycardiac, no M/G/R Lungs: coarse breath sounds throughout all lung masters, diminished at the bases , with end expiratory wheezing, improving daily Abd: soft, NT/ND, +BS, no rebound, no guarding, neg HSM, scaphoid EXT: 1+ edema, no ecchymosis, no clubbing, FROM, muscle wasting noted Neuro: intubated/sedated Psych: cannot assess Skin: scattered petechiae Results Result Diagram: 12/26/1644512/26/16 0446 Results 24 hrs Laboratory Tests Test 12/26/16 04:46 Alanine Aminotransferase (ALT/SGPT) 23 Albumin 2.8 L Albumin/Globulin Ratio 0.58 Alkaline Phosphatase 80 Anion Gap 19 H Aspartate Amino Transf (AST/SGOT) 43 Basophils # Basophils % Blood Morphology Comment Blood Urea Nitrogen 48 H Calcium Level 6.9 L Carbon Dioxide Level 24 Chloride Level 108 Creatinine 2.14 H Direct Bilirubin 0.00 Eosinophils # Eosinophils % Globulin 4.80 H Glucose Level 78 Hematocrit 26.9 #L Hemoglobin 8.9 L Indirect Bilirubin 0.0 Lymphocytes # Lymphocytes % Mean Corpuscular Hemoglobin 28.3 L Mean Corpuscular Hemoglobin Concent 33.2 Mean Corpuscular Volume 85.1 Mean Platelet Volume 10.8 H Monocytes # Neutrophils # Neutrophils % Nucleated Red Blood Cells # Nucleated Red Blood Cells % Platelet Count 23 #*L Potassium Level 3.4 L Red Blood Count 3.16 L Red Cell Distribution Width 18.9 H Sodium Level 148 H Total Bilirubin 0.0 L Total Protein 7.6 White Blood Count 11.3 #H Medications Medications Current Medications Sodium Chloride (NS) 1,000 ml @ 50 mls/hr Q20H IV Last administered on t 15:44; Admin Dose 50 MLS/HR; Start 12/23/16 at 16:30 Ondansetron HCl (Zofran Inj) 4 mg Q6H PRN IV NAUSEA AND/OR VOMITING; Start 12/23 at 16:30 Nitroglycerin (Nitroglycerin (Sl Tab) 0.4 Mg) 1 tab Q5M PRN SL CHEST PAIN; Start 12/23/16 at 16:30 Acetaminophen (Tylenol Supp) 650 mg Q4H PRN [place] PAIN LEVEL 1-3 OR FEVER Last administered on 12/25/16 01:06; Admin Dose 650 MG; Start 12/23/16 at 16:30 Morphine Sulfate (morphine) 2 mg Q4H PRN IV PAIN LEVEL 7-10; Start 12/23/16 at 16:30 Lorazepam (Ativan) 1 mg Q2H PRN IV ANXIETY Last administered on 12/24/16 22:13 ; Admin Dose 1 MG; Start 12/23/16 at 16:30 Bisacodyl (Dulcolax) 5 mg DAILY PRN PO CONSTIPATION; Start 12/23/16 at 16:30 Pantoprazole (Protonix Iv) 40 mg DAILY@06 IV Last administered on 12/26/16 05: 39; Admin Dose 40 MG; Start 12/24/16 at 06:00 Oseltamivir Phosphate 75 mg 75 mg Q12 PO Last administered on 12/26/16 08:21; Admin Dose 75 MG; Start 12/23/16 at 21:00; Stop 12/28/16 at 21:00 Propofol (Diprivan) 100 ml @ 2.346 mls/ hr Q12H IV Last administered on 07:41; Admin Dose 23.46 MLS/HR; Start 12/23/16 at 22:00 Furosemide 20 mg 20 mg ONCE IV Last administered on 12/25/16 15:47; Admin Dose 20 MG; Start 12/25/16 at 09:00; Stop 12/26/16 at 08:59 Cefepime HCl 50 ml @ 100 mls/hr Q24H IVPB ; Start 12/26/16 at 10:00 Vancomycin HCl 250 ml @ 125 mls/hr Q24H IVPB ; Start 12/26/16 at 09:00; Status UNV Levofloxacin/ Dextrose (Levaquin 500mg/ D5W 100 ml (Pmx)) 100 ml @ 50 mls/hr Q48H IVPB ; Start 12/26/16 at 09:00 HUMA THAKKAR MD Dec 26, 2016 09:18
[2016-12-26] MEDS: LEVOFLOXACIN 500MG/D5W (PMX) 100 ML IVPB SCH (09:26)
[2016-12-26 10:14] LABS: BASOPHIL # 0.1 10^3/ul (0.0-0.1); EOSINOPHILS # 0.5 10^3/ul (0.0-0.5); MONOCYTE # 4.7 10^3/ul (0.3-0.9); MYELOCYTES # 0.3; NEUTROPHIL # 0.3 10^3/ul (1.6-7.5); PLATELET ESTIMATE PLT APPEAR DECREASED
[2016-12-26] MEDS: CEFEPIME 1GM/50 ML (PMX) 50 ML IVPB SCH (10:44)
--- NOTE | 2016-12-26 10:56 | CONS ---
Date/Time of Note Date/Time of Note DATE: 12/26/16 TIME: 10:53 Assessment/Plan Assessment/Plan Chief Complaint/Hosp Course IMPRESSION: 1. 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 Cardiomyopathy with decreased left ventricular ejection fraction, last being approximately 45% to 50% by echo 11/2016. 3. Hypotension, borderline. 4. Influenza positive. 5. History of chronic myelogenous leukemia. 6. Renal failure. 7. Thrombocytopenia, severe. 8. Anemia. 9. Leukocytosis. Recc: -Tele -serial ecg's -Continue abx's and f/u cx data -Follow volume status closely -continue tamiflu Problems: Consultation Date/Type/Reason Admit Date/Time Dec 23, 2016 at 15:37 Initial Consult Date 12/24/16 Type of Consultation: Cardiology Reason for Consultation cardiomyopathy/Hotn Referring Provider: BEN COURTNEY MD Exam/Review of Systems Vital Signs Vitals Vital Signs Date Time Temp Pulse Resp B/P Pulse Ox O2 Delivery O2 Flow Rate FiO2 12/26/16 09:12 107 24 100 40 12/26/16 08:00 98.5 111/52 Mechanical Ventilator 12/23/16 16:35 15.0 Intake and Output 12/25/16 12/25/16 12/26/16 15:00 23:00 07:00 Intake Total 1735.144 ml 517.178 ml 1031.376 ml Output Total 570 ml 605 ml 490 ml Balance 1165.144 ml -87.822 ml 541.376 ml Exam Review of Systems: CONSTITUTIONAL: No fevers, chills. PULMONARY: No sob CARDIOVASCULAR: No chest pain/palpitations GASTROINTESTINAL: No nausea/vomiting. GENITOURINARY: No hematuria/dysuria. MUSCULOSKELETAL: No myagias/arthalgias. PSYCHIATRIC: The patient denies depression. NEUROLOGIC: No weakness Constitutional: other (sedated) Psych: no complaints Head: normocephalic ENMT: intubated, mucosa pink and moist Neck: jvd (9 cm wwater), supple Respiratory: diminished breath sounds (at bases/B) Cardiovascular: regular rate and rhythm Gastrointestinal: soft Musculoskeletal: muscle tone (normal) Extremities: edema (none) Neurological: other (No focal deficits) Results Result Diagram: 12/26/166 12/26/166 Results 24 hrs Laboratory Tests Test 12/26/16 04:46 Alanine Aminotransferase (ALT/SGPT) 23 Albumin 2.8 L Albumin/Globulin Ratio 0.58 Alkaline Phosphatase 80 Anion Gap 19 H Aspartate Amino Transf (AST/SGOT) 43 Band Neutrophils % 1.0 Basophils # 0.1 Basophils % 1.0 Blast Cells % 3.0 H Blastocytes # 0.3 Blood Morphology Comment Blood Urea Nitrogen 48 H Calcium Level 6.9 L Carbon Dioxide Level 24 Chloride Level 108 Creatinine 2.14 H Direct Bilirubin 0.00 Eosinophils # 0.5 Eosinophils % 4.0 Globulin 4.80 H Glucose Level 78 Hematocrit 26.9 #L Hemoglobin 8.9 L Indirect Bilirubin 0.0 Lymphocytes # 4.0 H Lymphocytes % 35.0 Mean Corpuscular Hemoglobin 28.3 L Mean Corpuscular Hemoglobin Concent 33.2 Mean Corpuscular Volume 85.1 Mean Platelet Volume 10.8 H Metamyelocytes # 0.6 Metamyelocytes % 5.0 H Monocytes # 4.7 H Monocytes % 42.0 H Myelocytes # 0.3 Myelocytes % 3.0 H Neutrophils # 0.3 L Neutrophils % 3.0 L Nucleated Red Blood Cells # Nucleated Red Blood Cells % Platelet Count 23 #*L Platelet Estimate PLT APPEAR DECREASED Potassium Level 3.4 L Promyelocytes # 0.1 Promyelocytes % 1.0 H Reactive Lymphocytes % 2.0 Red Blood Count 3.16 L Red Cell Distribution Width 18.9 H Sodium Level 148 H Total Bilirubin 0.0 L Total Protein 7.6 White Blood Count 11.3 #H Medications Medications Current Medications Sodium Chloride (NS) 1,000 ml @ 50 mls/hr Q20H IV Last administered on 15:44; Admin Dose 50 MLS/HR; Start 12/23/16 at 16:30 Ondansetron HCl (Zofran Inj) 4 mg Q6H PRN IV NAUSEA AND/OR VOMITING; Start 12/23 at 16:30 Nitroglycerin (Nitroglycerin (Sl Tab) 0.4 Mg) 1 tab Q5M PRN SL CHEST PAIN; Start 12/23/16 at 16:30 Acetaminophen (Tylenol Supp) 650 mg Q4H PRN [place] PAIN LEVEL 1-3 OR FEVER Last administered on 12/25/16 01:06; Admin Dose 650 MG; Start 12/23/16 at 16:30 Morphine Sulfate (morphine) 2 mg Q4H PRN IV PAIN LEVEL 7-10; Start 12/23/16 at 16:30 Lorazepam (Ativan) 1 mg Q2H PRN IV ANXIETY Last administered on 12/24/16 22:13 ; Admin Dose 1 MG; Start 12/23/16 at 16:30 Bisacodyl (Dulcolax) 5 mg DAILY PRN PO CONSTIPATION; Start 12/23/16 at 16:30 Pantoprazole (Protonix Iv) 40 mg DAILY@06 IV Last administered on 12/26/16 05: 39; Admin Dose 40 MG; Start 12/24/16 at 06:00 Oseltamivir Phosphate 75 mg 75 mg Q12 PO Last administered on 12/26/16 08:21; Admin Dose 75 MG; Start 12/23/16 at 21:00; Stop 12/28/16 at 21:00 Propofol 100 ml @ 2.346 mls/ hr Q12H IV Last administered on 12/26/16 07:41; Admin Dose 23.46 MLS/HR; Start 12/23/16 at 22:00 Cefepime HCl 50 ml @ 100 mls/hr Q24H IVPB Last administered on 12/26/16 10:44 ; Admin Dose 100 MLS/HR; Start 12/26/16 at 10:00 Levofloxacin/ Dextrose 100 ml @ 50 mls/hr Q48H IVPB Last administered on 09:26; Admin Dose 50 MLS/HR; Start 12/26/16 at 09:00 Vancomycin HCl/ Sodium Chloride (Vancocin/NS) 150 ml @ 75 mls/hr Q24H IVPB ; Start 12/26/16 at 12:00 Vancomycin HCl (Vanco Iv Per Pharmacy) PER PHARMACY DOSING NOTE XX ; Start at 11:00 Miscellaneous Information (*Rx Drug Level Order Reminder*) 1 ONCE ONCE XX ; Start 12/27/16 at 11:00; Stop 12/27/16 at 11:01 MILENA VELA Dec 26, 2016 10:56
[2016-12-26] MEDS ORDERED: VANCOMYCIN IV PER PHARMACY XX SCH (11:00)
--- NOTE | 2016-12-26 11:45 | RADRPT ---
Vent Rate: 116 bpm RR Interval: 0 msec GA Interval: 136 msec QRS Duration: 142 msec QT Interval: 406 msec QTC Interval: 564 msec P-R-T [place]: 66 - 52 - 99 degrees Sinus tachycardia Left bundle branch block Abnormal ECG Electronically Signed By: Rom Covarrubias [id number]
[2016-12-26] MEDS ORDERED: VANCOMYCIN 1 GM (PMX) 250 ML IVPB SCH (12:00)
[2016-12-26] MEDS: VANCOMYCIN 750 MG in SOD CHLORIDE 0.9% 150 ML IVPB SCH (12:30)
--- NOTE | 2016-12-26 13:51 | CONS ---
Date/Time of Note Date/Time of Note DATE: 12/26/16 TIME: 13:50 Assessment/Plan Assessment/Plan Additional Assessment/Plan 1. Acute kidney injury, likely secondary to acute tubular necrosis in the setting of sepsis. 2. Acute hypoxemic respiratory failure, multifactorial, secondary to sepsis and secondary to pulmonary condition. 3. Acute pulmonary edema with influenza pneumonia. 4. History of congestive heart failure with diastolic heart failure. 5. History of chronic obstructive pulmonary disease. 6. History of gastroesophageal reflux disease. 7. History of smoking. 8. 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 PLAN: pt remains intubated, BUN/Cr stable, good urineoutput pt has poor prognosis due to CML consider palliative care consult will follow up K replacement Consultation Date/Type/Reason Admit Date/Time Dec 23, 2016 at 15:37 Initial Consult Date 12/24/16 Type of Consultation: Cardiology Referring Provider: BEN COURTNEY MD Exam/Review of Systems Vital Signs Vitals Vital Signs Date Time Temp Pulse Resp B/P Pulse Ox O2 Delivery O2 Flow Rate FiO2 12/26/16 13:42 92 27 99 40 12/26/16 08:00 98.5 111/52 Mechanical Ventilator 12/23/16 16:35 15.0 Intake and Output 12/25/16 12/25/16 12/26/16 15:00 23:00 07:00 Intake Total 1735.144 ml 517.178 ml 1031.376 ml Output Total 570 ml 605 ml 490 ml Balance 1165.144 ml -87.822 ml 541.376 ml Results Result Diagram: 12/26/16 0446 12/26/16 0446 Results 24 hrs Laboratory Tests Test 12/26/16 04:46 Alanine Aminotransferase (ALT/SGPT) 23 Albumin 2.8 L Albumin/Globulin Ratio 0.58 Alkaline Phosphatase 80 Anion Gap 19 H Aspartate Amino Transf (AST/SGOT) 43 Band Neutrophils % 1.0 Basophils # 0.1 Basophils % 1.0 Blast Cells % 3.0 H Blastocytes # 0.3 Blood Morphology Comment Blood Urea Nitrogen 48 H Calcium Level 6.9 L Carbon Dioxide Level 24 Chloride Level 108 Creatinine 2.14 H Direct Bilirubin 0.00 Eosinophils # 0.5 Eosinophils % 4.0 Globulin 4.80 H Glucose Level 78 Hematocrit 26.9 #L Hemoglobin 8.9 L Indirect Bilirubin 0.0 Lymphocytes # 4.0 H Lymphocytes % 35.0 Mean Corpuscular Hemoglobin 28.3 L Mean Corpuscular Hemoglobin Concent 33.2 Mean Corpuscular Volume 85.1 Mean Platelet Volume 10.8 H Metamyelocytes # 0.6 Metamyelocytes % 5.0 H Monocytes # 4.7 H Monocytes % 42.0 H Myelocytes # 0.3 Myelocytes % 3.0 H Neutrophils # 0.3 L Neutrophils % 3.0 L Nucleated Red Blood Cells # Nucleated Red Blood Cells % Platelet Count 23 #*L Platelet Estimate PLT APPEAR DECREASED Potassium Level 3.4 L Promyelocytes # 0.1 Promyelocytes % 1.0 H Reactive Lymphocytes % 2.0 Red Blood Count 3.16 L Red Cell Distribution Width 18.9 H Sodium Level 148 H Total Bilirubin 0.0 L Total Protein 7.6 White Blood Count 11.3 #H Medications Medications Current Medications Sodium Chloride (NS) 1,000 ml @ 50 mls/hr Q20H IV Last administered on 15:44; Admin Dose 50 MLS/HR; Start 12/23/16 at 16:30 Ondansetron HCl (Zofran Inj) 4 mg Q6H PRN IV NAUSEA AND/OR VOMITING; Start 12/23 at 16:30 Nitroglycerin (Nitroglycerin (Sl Tab) 0.4 Mg) 1 tab Q5M PRN SL CHEST PAIN; Start 12/23/16 at 16:30 Acetaminophen (Tylenol Supp) 650 mg Q4H PRN [place] PAIN LEVEL 1-3 OR FEVER Last administered on 12/25/16 01:06; Admin Dose 650 MG; Start 12/23/16 at 16:30 Morphine Sulfate (morphine) 2 mg Q4H PRN IV PAIN LEVEL 7-10; Start 12/23/16 at 16:30 Lorazepam (Ativan) 1 mg Q2H PRN IV ANXIETY Last administered on 12/24/16 22:13 ; Admin Dose 1 MG; Start 12/23/16 at 16:30 Bisacodyl (Dulcolax) 5 mg DAILY PRN PO CONSTIPATION; Start 12/23/16 at 16:30 Pantoprazole (Protonix Iv) 40 mg DAILY@06 IV Last administered on 12/26/16 05: 39; Admin Dose 40 MG; Start 12/24/16 at 06:00 Oseltamivir Phosphate 75 mg 75 mg Q12 PO Last administered on 12/26/16 08:21; Admin Dose 75 MG; Start 12/23/16 at 21:00; Stop 12/28/16 at 21:00 Propofol 100 ml @ 2.346 mls/ hr Q12H IV Last administered on 12/26/16 13:17; Admin Dose 23.46 MLS/HR; Start 12/23/16 at 22:00 Cefepime HCl 50 ml @ 100 mls/hr Q24H IVPB Last administered on 12/26/16 10:44 ; Admin Dose 100 MLS/HR; Start 12/26/16 at 10:00 Levofloxacin/ Dextrose 100 ml @ 50 mls/hr Q48H IVPB Last administered on 09:26; Admin Dose 50 MLS/HR; Start 12/26/16 at 09:00 Vancomycin HCl/ Sodium Chloride (Vancocin/NS) 150 ml @ 75 mls/hr Q24H IVPB Last administered on 12/26/16 12:30; Admin Dose 75 MLS/HR; Start 12/26/16 at 12: 00 Vancomycin HCl (Vanco Iv Per Pharmacy) PER PHARMACY DOSING NOTE XX ; Start at 11:00 Miscellaneous Information (*Rx Drug Level Order Reminder*) 1 ONCE ONCE XX ; Start 12/27/16 at 11:00; Stop 12/27/16 at 11:01 GILL PEREIRA MD Dec 26, 2016 13:51
--- NOTE | 2016-12-26 13:59 | RADRPT ---
PROCEDURE: XR Chest. CLINICAL INDICATION: Pneumonia TECHNIQUE: Single frontal chest x-ray. COMPARISON: 12/25/2016 FINDINGS: Endotracheal and nasogastric tubes remain in place. Patchy bilateral pulmonary opacities are again noted, greatest in the right upper lung and left lower lung, grossly unchanged. Hazy opacity is not ed at the left lung base, likely atelectasis and/or small pleural effusion. There is stable mild ca rdiomegaly. Aortic atherosclerotic calcification is noted. The osseous structures are unremarkable . IMPRESSION: 1. Endotracheal and nasogastric tubes remain in place. 2. Stable mild cardiomegaly and aortic atherosclerosis. 3. Patchy bilateral pulmonary opacities are again noted, grossly stable, possibly representing pneu monia. 4. Hazy left lung base opacity is noted, slightly increased, likely atelectasis and/or small pleura l effusion. RPTAT: QQ .German Odonnell MD, MD Date Time Electronically viewed and signed by .German Odonnell MD, on 12/26/2016 13:59 .R/
[2016-12-26] MEDS: SOD CHLORIDE 0.9% 1,000 ML IV SCH (15:09)
--- NOTE | 2016-12-26 16:46 | PN ---
DATE: 12/26/2016 SUBJECTIVE: No acute changes. The patient is lying comfortably in bed, spiked fever of 101.3 yeste rday, currently afebrile. VITAL SIGNS: Temperature 98.7, pulse 101, respirations 19, blood pressure 101/56, saturation 97% on vent. WBC today 11.3, H and H 8.9 and 26.9, platelets 23, BUN 48, creatinine 2.14. MICROBIOLOGY: Blood cultures had been negative. Nares swab negative. Influenza swab positive for influenza A. ANTIMICROBIALS: The patient is on IV vancomycin, cefepime, Levaquin and Tamiflu. INDWELLINGS: Endotracheal tube, NG tube, Leyva catheter, peripheral IV. PHYSICAL EXAMINATION: GENERAL: This is a chronically ill-appearing, elderly man who is lying comfortably in bed. HEENT: Head atraumatic, normocephalic. Sclerae anicteric. Buccal mucosa dry. NECK: Supple. CHEST: Rise symmetrical. Breath sounds diminished to bases. HEART: S1, S2. ABDOMEN: Soft. Bowel tones present. EXTREMITIES: Trace edema. ASSESSMENT: 1. Sepsis. 2. Acute respiratory failure. 3. Influenza A with superimposed healthcare-associated pneumonia. 4. Chronic myeloid leukemia, currently on chemo. 5. History of chronic obstructive pulmonary disease. 6. Acute renal failure. PLAN: The patient remains stable on appropriate antimicrobials. He is being followed by multiple c onsultants. Continue present care. Vent per pulmonary. Dictated By: DARLENE CARTAGENA POT LINER for CORRINA GOMEZ/RADHA Conf#: [id number] DID#: [id number]
--- NOTE | 2016-12-26 20:24 | PN ---
DATE: 12/26/2016 PALLIATIVE CARE FOLLOWUP NOTE SUBJECTIVE: Mr. Townsend is still in the intensive care unit, still intubated. There has been no s ignificant improvement in his overall clinical course. He continues to require blood products inclu ding platelet transfusions and packed cells. His renal function is stabilized at this time. His ov erall prognosis is extremely poor and primarily secondary to his underlying hematologic disorder keena or to hospitalization. He is receiving aggressive care by Dr. Doyle and multiple different consul tants. I have reviewed the notes from Dr. Pryor additionally. OBJECTIVE: VITAL SIGNS: Blood pressure 111/53, pulse of 89 and regular, respirations of 28, temperature 98.7 d egrees, 98% saturation on 40% FiO2. CHEST: Clear. CORONARY: S1, S2, regular rate and rhythm. ABDOMEN: Low active bowel sounds without distention. ASSESSMENT AND PLAN: Insofar as palliative care, I will continue to follow this gentleman. His fam evan members arrive today, and according to nurses left fairly fast. I will contact them again tomodell osuna and will discuss patient's code status based upon his very poor overall prognosis. Dictated By: JUSTIN DANIELS MD, LP/RADHA Conf#: [id number] DID#: [id number]
[2016-12-26] MEDS ORDERED: POTASSIUM CHLORIDE 20 MEQ POWDER FOR ORAL SOLN NGT ONE (21:00)
[2016-12-26] MEDS: LORAZEPAM 2 MG INJ IV PRN (23:55)
[2016-12-27] VITALS (48 sets, daily range): BP systolic 93–134; BP diastolic 46–71; PULSE 79–108; RESP 18–31
[2016-12-27] MEDS: ALBUTEROL HFA 8 GM INHALER INH SCH ×6 (01:04→21:30)
[2016-12-27] MEDS: IPRATROPIUM (HFA) 12.9 GM INHALER INH SCH ×6 (01:04→21:30)
[2016-12-27] MEDS: PROPOFOL 100 ML IV SCH ×5 (01:25→21:10)
--- NOTE | 2016-12-27 02:36 | RADRPT ---
PROCEDURE: XR Chest. CLINICAL INDICATION: Attempt itself extubation. Reassess endotracheal tube. TECHNIQUE: Portable single view of the chest COMPARISON: 12/26 FINDINGS: Endotracheal tube is seen in good position. Nasogastric tube courses towards the stomach and off th e radiographic field. Nodular density in the right upper lobe is partially obscured by overlying EK G lead. Increased interstitial lung markings and peribronchial thickening is again seen, perhaps sl ightly increased on the right. No pleural effusion is seen. Aortic calcification is seen. IMPRESSION: Endotracheal tube remains in good position. Perhaps slight increase in infiltrate of the right lung . RPTAT: [facility] Physician Ankita Date Time Electronically viewed and signed by Erica Nowak Physician on 12/27/2016 02:36 LE/
[2016-12-27] MEDS: LORAZEPAM 2 MG INJ IV PRN ×2 (04:26→07:45)
[2016-12-27] MEDS: PANTOPRAZOLE 40 MG INJ IV SCH (06:05)
[2016-12-27 06:23] LABS: ABNORMAL IP MESSAGE 1; BASOPHILS % 0.3 % (0.0-2.0); HEMATOCRIT 27.3 % (42.0-52.0); HEMOGLOBIN 8.7 g/dl (14.0-18.0); LYMPHOCYTES # 3.3 10^3/ul (0.8-2.9); LYMPHOCYTES % 28.7 % (15.0-51.0); MEAN CORPUSCULAR HEMOGLOBIN 27.5 pg (29.0-33.0); MEAN CORPUSCULAR HGB CONC 31.9 g/dl (32.0-37.0); MEAN CORPUSCULAR VOLUME 86.4 fl (82.0-101.0); MONOCYTE # 6.8 10^3/ul (0.3-0.9); MONOCYTES % 58.5 % (0.0-11.0); NEUTROPHIL # 1.5 10^3/ul (1.6-7.5); NEUTROPHILS % 12.4 % (39.0-77.0); RED BLOOD COUNT 3.16 10^6/ul (4.70-6.10); RED CELL DISTRIBUTION WIDTH 18.4 % (11.5-14.5); WHITE BLOOD COUNT 11.6 10^3/ul (4.8-10.8)
[2016-12-27 06:34] LABS: ALBUMIN 2.6 g/dl (3.3-4.9); POTASSIUM 3.6 mmol/L (3.5-5.1)
[2016-12-27 06:37] LABS: ALBUMIN/GLOBULIN RATIO 0.54; BILIRUBIN,INDIRECT 0.2 mg/dl (0-1.1); BILIRUBIN,TOTAL 0.2 mg/dl (0.2-1.3); CALCIUM 7.4 mg/dl (8.4-10.2); CREATININE 1.89 mg/dl (0.61-1.24); TOTAL PROTEIN 7.4 g/dl (6.1-8.1)
[2016-12-27 07:19] LABS: ADD SCAN DIFF YES; PLATELET COUNT 16 10^3/UL (140-415)
--- NOTE | 2016-12-27 08:27 | CONS ---
Date/Time of Note Date/Time of Note DATE: 12/27/16 TIME: 08:23 Assessment/Plan Assessment/Plan Additional Assessment/Plan 1. Acute kidney injury, likely secondary to acute tubular necrosis in the setting of sepsis. 2. Acute hypoxemic respiratory failure, multifactorial, secondary to sepsis and secondary to pulmonary condition. 3. Acute pulmonary edema with influenza pneumonia. 4. History of congestive heart failure with diastolic heart failure. 5. History of chronic obstructive pulmonary disease. 6. History of gastroesophageal reflux disease. 7. History of smoking. 8. 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 PLAN: pt remains intubated, Cr slightly improved, good urine output Na trending up- will switch to D5W with 10 KCl at 75 cc/hr pt has poor prognosis due to CML consider palliative care consult will follow up K replacement Consultation Date/Type/Reason Admit Date/Time Dec 23, 2016 at 15:37 Initial Consult Date 12/24/16 Type of Consultation: NEPHROLOGY Referring Provider: BEN COURTNEY MD 24 HR Interval Summary Free Text/Dictation pt tried to pull out NG tube, wiht bleeding, CXR showed placement ok but developing new infiltrates Exam/Review of Systems Vital Signs Vitals Vital Signs Date Time Temp Pulse Resp B/P Pulse Ox O2 Delivery O2 Flow Rate FiO2 12/27/16 06:00 93 22 101/60 97 Mechanical Ventilator 12/27/16 05:52 40 12/27/16 04:00 98.2 12/23/16 16:35 15.0 Intake and Output 12/26/16 12/26/16 12/27/16 15:00 23:00 07:00 Intake Total 300 ml 367.30 ml 514.36 ml Output Total 965 ml 660 ml 600 ml Balance -665 ml -292.70 ml -85.64 ml Exam Gen [place]: intubated/sedated HEENT: NC/AT, PERRLA, ETT CV: S1S2, tachycardiac, no M/G/R Lungs: bilatereal Coarse BS, RLL crackles Abd: soft, NT/ND, +BS, no rebound, no guarding, neg HSM, scaphoid EXT: 1+ edema, no ecchymosis, no clubbing, FROM, muscle wasting noted Neuro: intubated/sedated Results Result Diagram: 12/27/16 0512/27/16 0430 Results 24 hrs Laboratory Tests Test 12/27/16 04:30 12/27/16 05:21 Alanine Aminotransferase (ALT/SGPT) 22 Albumin 2.6 L Albumin/Globulin Ratio 0.54 Alkaline Phosphatase 83 Anion Gap 19 H Aspartate Amino Transf (AST/SGOT) 40 Blood Urea Nitrogen 41 H Calcium Level 7.4 L Carbon Dioxide Level 24 Chloride Level 117 H Creatinine 1.89 H Direct Bilirubin 0.00 Globulin 4.80 H Glucose Level 72 Indirect Bilirubin 0.2 Potassium Level 3.6 Sodium Level 156 H Total Bilirubin 0.2 Total Protein 7.4 Basophils # 0.0 Basophils % 0.3 Eosinophils # 0.0 Eosinophils % 0.0 Hematocrit 27.3 L Hemoglobin 8.7 L Lymphocytes # 3.3 H Lymphocytes % 28.7 Mean Corpuscular Hemoglobin 27.5 L Mean Corpuscular Hemoglobin Concent 31.9 L Mean Corpuscular Volume 86.4 Mean Platelet Volume Monocytes # 6.8 H Monocytes % 58.5 H Neutrophils # 1.5 L Neutrophils % 12.4 L Nucleated Red Blood Cells # 0.0 Nucleated Red Blood Cells % 0.0 Platelet Count 16 *L Prealbumin 7.6 L Red Blood Count 3.16 L Red Cell Distribution Width 18.4 H White Blood Count 11.6 H Medications Medications Current Medications Ondansetron HCl (Zofran Inj) 4 mg Q6H PRN IV NAUSEA AND/OR VOMITING; Start 12/23 at 16:30 Nitroglycerin (Nitroglycerin (Sl Tab) 0.4 Mg) 1 tab Q5M PRN SL CHEST PAIN; Start 12/23/16 at 16:30 Acetaminophen (Tylenol Supp) 650 mg Q4H PRN [place] PAIN LEVEL 1-3 OR FEVER Last administered on 12/25/16 01:06; Admin Dose 650 MG; Start 12/23/16 at 16:30 Morphine Sulfate (morphine) 2 mg Q4H PRN IV PAIN LEVEL 7-10; Start 12/23/16 at 16:30 Lorazepam (Ativan) 1 mg Q2H PRN IV ANXIETY Last administered on 12/27/16 07:45 ; Admin Dose 1 MG; Start 12/23/16 at 16:30 Bisacodyl (Dulcolax) 5 mg DAILY PRN PO CONSTIPATION; Start 12/23/16 at 16:30 Pantoprazole (Protonix Iv) 40 mg DAILY@06 IV Last administered on 12/27/16 06: 05; Admin Dose 40 MG; Start 12/24/16 at 06:00 Oseltamivir Phosphate 75 mg 75 mg Q12 PO Last administered on 12/26/16 21:53; Admin Dose 75 MG; Start 12/23/16 at 21:00; Stop 12/28/16 at 21:00 Propofol 100 ml @ 2.346 mls/ hr Q12H IV Last administered on 12/27/16 06:26; Admin Dose 23.46 MLS/HR; Start 12/23/16 at 22:00 Cefepime HCl 50 ml @ 100 mls/hr Q24H IVPB Last administered on 12/26/16 10:44 ; Admin Dose 100 MLS/HR; Start 12/26/16 at 10:00 Levofloxacin/ Dextrose 100 ml @ 50 mls/hr Q48H IVPB Last administered on 09:26; Admin Dose 50 MLS/HR; Start 12/26/16 at 09:00 Vancomycin HCl/ Sodium Chloride (Vancocin/NS) 150 ml @ 75 mls/hr Q24H IVPB Last administered on 12/26/16 12:30; Admin Dose 75 MLS/HR; Start 12/26/16 at 12: 00 Vancomycin HCl (Vanco Iv Per Pharmacy) PER PHARMACY DOSING NOTE XX ; Start at 11:00 Miscellaneous Information 1 ONCE ONCE XX ; Start 12/27/16 at 11:00; Stop at 11:01 Potassium Chloride/Dextrose (KCl/D5W) 1,005 ml @ 70 mls/hr [id number] IV ; Start 12/27/16 at 08:30; Status GILL HOOPER MD Dec 27, 2016 08:27
--- NOTE | 2016-12-27 09:25 | PN ---
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 1. Sepsis 2/2 to Influenza Pneumonia - consult to ID placed, IV antibiotics - resume HCAP,on tamiflu - improving 2. Acute hypoxemic respiratory failure - s/p intubation - severe acidosis - improving - appreciate pulm recs - wean as tolerated - improving ABG 3. Severe thrombocytopenia - replete - recheck - replete today - check DIC panel - medication induced?- replete if < 20K - check HIT antibodies 4. Acute on chronic renal failure - 2/2 to sepsis - IVF - renally adjust medications, avoid nephrotoxins, worsening, appreciate renal consult 5. Anemia - of chronic disease - CA - will transfuse 2 units PRBCS, check serial H/H q6h - transfuse as per hem/onc, repeat transfusion, add ferrilicit 6. CML/MDS on chemo - continue with hem/onc recs 7. CHF with diastolic heart failure - consult cardiology, type II NSTEMI ? - demand ischemia, recent ECHO EF 45%, diastolic dysfunction 8. COPD - see #1 9. GERD - continue with IV protonix 10. Smoking abuse - advised patient on cessation 11. GI ppx - protonix 12. DVT ppx - contraindicated for anticoagulation - monitor acute changes dispo - f/u recs, monitor changes, prognosis is guarded/poor - f/u palliative care consult - if no improvement, code status needs to be reassessed - HIT antibodies this critical care note took greater than 40 min to complete Subjective 24 Hr Interval Summary Free Text/Dictation Patient had tried to pull his NGT last night and had bleeding. Otherwise needed sedation for his agitation. Spoke to the nurse about the care plan. 15 minutes spent. Exam/Review of Systems Vital Signs Vitals Vital Signs Date Time Temp Pulse Resp B/P Pulse Ox O2 Delivery O2 Flow Rate FiO2 12/27/16 08:00 40 12/27/16 07:40 92 28 99 12/27/16 06:00 101/60 Mechanical Ventilator 12/27/16 04:00 98.2 12/23/16 16:35 15.0 Intake and Output 12/26/16 12/26/16 12/27/16 15:00 23:00 07:00 Intake Total 300 ml 367.30 ml 514.36 ml Output Total 965 ml 660 ml 600 ml Balance -665 ml -292.70 ml -85.64 ml Exam Gen [place]: intubated/sedated HEENT: NC/AT, PERRLA, ETT NECK: supple, no thyromegaly THORAX: symmetrical, no obvious deformities CV: S1S2, tachycardiac, no M/G/R Lungs: coarse breath sounds throughout all lung masters, diminished at the bases , with end expiratory wheezing, improving daily Abd: soft, NT/ND, +BS, no rebound, no guarding, neg HSM, scaphoid EXT: 1+ edema, no ecchymosis, no clubbing, FROM, muscle wasting noted Neuro: intubated/sedated Psych: cannot assess Skin: scattered petechiae Results Result Diagram: 12/27/16 0521 12/27/16 0430 Results 24 hrs Laboratory Tests Test 12/27/16 04:30 12/27/16 05:21 Alanine Aminotransferase (ALT/SGPT) 22 Albumin 2.6 L Albumin/Globulin Ratio 0.54 Alkaline Phosphatase 83 Anion Gap 19 H Aspartate Amino Transf (AST/SGOT) 40 Blood Urea Nitrogen 41 H Calcium Level 7.4 L Carbon Dioxide Level 24 Chloride Level 117 H Creatinine 1.89 H Direct Bilirubin 0.00 Globulin 4.80 H Glucose Level 72 Indirect Bilirubin 0.2 Potassium Level 3.6 Sodium Level 156 H Total Bilirubin 0.2 Total Protein 7.4 Basophils # 0.0 Basophils % 0.3 Eosinophils # 0.0 Eosinophils % 0.0 Hematocrit 27.3 L Hemoglobin 8.7 L Lymphocytes # 3.3 H Lymphocytes % 28.7 Mean Corpuscular Hemoglobin 27.5 L Mean Corpuscular Hemoglobin Concent 31.9 L Mean Corpuscular Volume 86.4 Mean Platelet Volume Monocytes # 6.8 H Monocytes % 58.5 H Neutrophils # 1.5 L Neutrophils % 12.4 L Nucleated Red Blood Cells # 0.0 Nucleated Red Blood Cells % 0.0 Platelet Count 16 *L Prealbumin 7.6 L Red Blood Count 3.16 L Red Cell Distribution Width 18.4 H White Blood Count 11.6 H Medications Medications Current Medications Ondansetron HCl (Zofran Inj) 4 mg Q6H PRN IV NAUSEA AND/OR VOMITING; Start 12/23 at 16:30 Nitroglycerin (Nitroglycerin (Sl Tab) 0.4 Mg) 1 tab Q5M PRN SL CHEST PAIN; Start 12/23/16 at 16:30 Acetaminophen (Tylenol Supp) 650 mg Q4H PRN [place] PAIN LEVEL 1-3 OR FEVER Last administered on 12/25/16 01:06; Admin Dose 650 MG; Start 12/23/16 at 16:30 Morphine Sulfate (morphine) 2 mg Q4H PRN IV PAIN LEVEL 7-10; Start 12/23/16 at 16:30 Lorazepam (Ativan) 1 mg Q2H PRN IV ANXIETY Last administered on 12/27/16 07:45 ; Admin Dose 1 MG; Start 12/23/16 at 16:30 Bisacodyl (Dulcolax) 5 mg DAILY PRN PO CONSTIPATION; Start 12/23/16 at 16:30 Pantoprazole (Protonix Iv) 40 mg DAILY@06 IV Last administered on 12/27/16 06: 05; Admin Dose 40 MG; Start 12/24/16 at 06:00 Oseltamivir Phosphate 75 mg 75 mg Q12 PO Last administered on 12/26/16 21:53; Admin Dose 75 MG; Start 12/23/16 at 21:00; Stop 12/28/16 at 21:00 Propofol 100 ml @ 2.346 mls/ hr Q12H IV Last administered on 12/27/16 06:26; Admin Dose 23.46 MLS/HR; Start 12/23/16 at 22:00 Cefepime HCl 50 ml @ 100 mls/hr Q24H IVPB Last administered on 12/26/16 10:44 ; Admin Dose 100 MLS/HR; Start 12/26/16 at 10:00 Levofloxacin/ Dextrose 100 ml @ 50 mls/hr Q48H IVPB Last administered on 09:26; Admin Dose 50 MLS/HR; Start 12/26/16 at 09:00 Vancomycin HCl/ Sodium Chloride (Vancocin/NS) 150 ml @ 75 mls/hr Q24H IVPB Last administered on 12/26/16t 12:30; Admin Dose 75 MLS/HR; Start 12/26/16 at 12: 00 Vancomycin HCl (Vanco Iv Per Pharmacy) PER PHARMACY DOSING NOTE XX ; Start at 11:00 Miscellaneous Information 1 ONCE ONCE XX ; Start 12/27/16 at 11:00; Stop at 11:01 Potassium Chloride/Dextrose (KCl/D5W) 1,005 ml @ 70 mls/hr [id number] IV ; Start 12/27/16 at 09:00 HUMA THAKKAR MD Dec 27, 2016 09:24
--- NOTE | 2016-12-27 09:43 | PN ---
DATE: 12/27/2016 SUBJECTIVE: Mr. Townsend remains intubated and sedated with propofol. There does not seem to have been any improvement in the patient's respiratory status. White count today is 11,600, hemoglobin is 8.7, hematocrit 23.3 and platelet count of 16,000. The patient has been transfused with platelets. Unfortunately, this patient's thrombocytopenia is o n the basis of his underlying myelodysplastic syndrome. Would try to limit platelet transfusion and transfuse only when the patient's platelet count drops below 15,000 or if there is clinical bleedin g. The more platelets that the patient does receive the more antibodies he will create and the less inc rement he will receive from each transfusion. Dictated By: OPAL MOSES MD, SR/RADHA Conf#: [id number] DID#: [id number]
[2016-12-27] MEDS: POTASSIUM CHLORIDE 10 MEQ in DEXTROSE 5% 1,000 ML IV SCH (09:54)
[2016-12-27] MEDS: CEFEPIME 1GM/50 ML (PMX) 50 ML IVPB SCH (09:54)
[2016-12-27] MEDS: OSELTAMIVIR PHOSPHATE (6 MG/ML PO SYG) PO SCH ×2 (10:07→21:12)
--- NOTE | 2016-12-27 10:07 | CONS ---
Date/Time of Note Date/Time of Note DATE: 12/27/16 TIME: 10:05 Assessment/Plan Assessment/Plan Chief Complaint/Hosp Course IMPRESSION: 1. 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 Cardiomyopathy with decreased left ventricular ejection fraction, last being approximately 45% to 50% by echo 11/2016. 3. Hypotension, borderline. 4. Influenza positive. 5. History of chronic myelogenous leukemia. 6. Renal failure. 7. Thrombocytopenia, severe. 8. Anemia. 9. Leukocytosis. Recc: -Tele -serial ecg's -Continue abx's and f/u cx data -Follow volume status closely -continue tamiflu -Wean vent as tolerated Problems: Consultation Date/Type/Reason Admit Date/Time Dec 23, 2016 at 15:37 Initial Consult Date 12/24/16 Type of Consultation: Cardiology Reason for Consultation cardiomyopathy Referring Provider: BEN COURTNEY MD Exam/Review of Systems Vital Signs Vitals Vital Signs Date Time Temp Pulse Resp B/P Pulse Ox O2 Delivery O2 Flow Rate FiO2 12/27/16 09:30 91 27 98 40 12/27/16 06:00 101/60 Mechanical Ventilator 12/27/16 04:00 98.2 12/23/16 16:35 15.0 Intake and Output 12/26/16 12/26/16 12/27/16 15:00 23:00 07:00 Intake Total 300 ml 367.30 ml 514.36 ml Output Total 965 ml 660 ml 600 ml Balance -665 ml -292.70 ml -85.64 ml Exam Review of Systems: CONSTITUTIONAL: No fevers, chills. PULMONARY: intubated CARDIOVASCULAR: No obvious chest pain/palpitations GASTROINTESTINAL: No nausea/vomiting. GENITOURINARY: No hematuria/dysuria. MUSCULOSKELETAL: No myagias/arthalgias. PSYCHIATRIC: The patient denies depression. NEUROLOGIC: sedated Constitutional: other (sedated) Psych: no complaints Head: normocephalic ENMT: intubated Neck: jvd (9cm water), supple Respiratory: diminished breath sounds (at bases/B) Cardiovascular: regular rate and rhythm Gastrointestinal: non-tender, soft Musculoskeletal: muscle tone (normal) Extremities: edema (none) Neurological: other (sedated) Results Result Diagram: 12/27/16 0521 12/27/16 0430 Results 24 hrs Laboratory Tests Test 12/27/16 04:30 12/27/16 05:21 Alanine Aminotransferase (ALT/SGPT) 22 Albumin 2.6 L Albumin/Globulin Ratio 0.54 Alkaline Phosphatase 83 Anion Gap 19 H Aspartate Amino Transf (AST/SGOT) 40 Blood Urea Nitrogen 41 H Calcium Level 7.4 L Carbon Dioxide Level 24 Chloride Level 117 H Creatinine 1.89 H Direct Bilirubin 0.00 Globulin 4.80 H Glucose Level 72 Indirect Bilirubin 0.2 Potassium Level 3.6 Sodium Level 156 H Total Bilirubin 0.2 Total Protein 7.4 Basophils # 0.0 Basophils % 0.3 Eosinophils # 0.0 Eosinophils % 0.0 Hematocrit 27.3 L Hemoglobin 8.7 L Lymphocytes # 3.3 H Lymphocytes % 28.7 Mean Corpuscular Hemoglobin 27.5 L Mean Corpuscular Hemoglobin Concent 31.9 L Mean Corpuscular Volume 86.4 Mean Platelet Volume Monocytes # 6.8 H Monocytes % 58.5 H Neutrophils # 1.5 L Neutrophils % 12.4 L Nucleated Red Blood Cells # 0.0 Nucleated Red Blood Cells % 0.0 Platelet Count 16 *L Prealbumin 7.6 L Red Blood Count 3.16 L Red Cell Distribution Width 18.4 H White Blood Count 11.6 H Medications Medications Current Medications Ondansetron HCl (Zofran Inj) 4 mg Q6H PRN IV NAUSEA AND/OR VOMITING; Start 12/23 at 16:30 Nitroglycerin (Nitroglycerin (Sl Tab) 0.4 Mg) 1 tab Q5M PRN SL CHEST PAIN; Start 12/23/16 at 16:30 Acetaminophen (Tylenol Supp) 650 mg Q4H PRN [place] PAIN LEVEL 1-3 OR FEVER Last administered on 12/25/16 01:06; Admin Dose 650 MG; Start 12/23/16 at 16:30 Morphine Sulfate (morphine) 2 mg Q4H PRN IV PAIN LEVEL 7-10; Start 12/23/16 at 16:30 Lorazepam (Ativan) 1 mg Q2H PRN IV ANXIETY Last administered on 12/27/16 07:45 ; Admin Dose 1 MG; Start 12/23/16 at 16:30 Bisacodyl (Dulcolax) 5 mg DAILY PRN PO CONSTIPATION; Start 12/23/16 at 16:30 Pantoprazole (Protonix Iv) 40 mg DAILY@06 IV Last administered on 12/27/16 06: 05; Admin Dose 40 MG; Start 12/24/16 at 06:00 Oseltamivir Phosphate 75 mg 75 mg Q12 PO Last administered on 12/26/16 21:53; Admin Dose 75 MG; Start 12/23/16 at 21:00; Stop 12/28/16 at 21:00 Propofol 100 ml @ 2.346 mls/ hr Q12H IV Last administered on 12/27/16 06:26; Admin Dose 23.46 MLS/HR; Start 12/23/16 at 22:00 Cefepime HCl 50 ml @ 100 mls/hr Q24H IVPB Last administered on 12/27/16 09:54 ; Admin Dose 100 MLS/HR; Start 12/26/16 at 10:00 Levofloxacin/ Dextrose 100 ml @ 50 mls/hr Q48H IVPB Last administered on 09:26; Admin Dose 50 MLS/HR; Start 12/26/16 at 09:00 Vancomycin HCl/ Sodium Chloride (Vancocin/NS) 150 ml @ 75 mls/hr Q24H IVPB Last administered on 12/26/16 12:30; Admin Dose 75 MLS/HR; Start 12/26/16 at 12: 00 Vancomycin HCl (Vanco Iv Per Pharmacy) PER PHARMACY DOSING NOTE XX ; Start at 11:00 Miscellaneous Information 1 ONCE ONCE XX ; Start 12/27/16 at 11:00; Stop at 11:01 Potassium Chloride/Dextrose (KCl/D5W) 1,005 ml @ 70 mls/hr [id number] IV Last administered on 12/27/16 09:54; Admin Dose 70 MLS/HR; Start 12/27/16 at 09:00 MILENA VELA Dec 27, 2016 10:07
--- NOTE | 2016-12-27 10:21 | CONS ---
Date/Time of Note Date/Time of Note DATE: 12/27/16 TIME: 10:16 Assessment/Plan Assessment/Plan Additional Assessment/Plan Assessment and recommendations; 1. Patient admitted with severe bilateral pneumonia. 2. CML currently on chemotherapy with severe thrombocytopenia. 3. There has been significant radiological improvement however the patient becomes extremely agitated once off sedation. 4. Hypernatremia. 5. Poor mental status of sedation. Continue current treatment. Add free water via NG tube to 50 ML every 6 hours. Half-normal D5W rate has been increased to 75 mL/h. Obtain a CT of the head. Patient will need to be transfused platelets. Prognosis is guarded. Consultation Date/Type/Reason Admit Date/Time Dec 23, 2016 at 15:37 Initial Consult Date 12/24/16 Type of Consultation: Pulmonary/critical care. Referring Provider: BEN COURTNEY MD 24 HR Interval Summary Free Text/Dictation Patient's condition remains critical. Still on full ventilator support. However not requiring any pressor support. Patient was given sedation vacation yesterday as well as this morning became extremely agitated at the very sedated. General examination; elderly male, or intubated. Currently in no distress. Exam/Review of Systems Vital Signs Vitals Vital Signs Date Time Temp Pulse Resp B/P Pulse Ox O2 Delivery O2 Flow Rate FiO2 12/27/16 09:30 91 27 98 40 12/27/16 06:00 101/60 Mechanical Ventilator 12/27/16 04:00 98.2 12/23/16 16:35 15.0 Intake and Output 12/26/16 12/26/16 12/27/16 15:00 23:00 07:00 Intake Total 300 ml 367.30 ml 514.36 ml Output Total 965 ml 660 ml 600 ml Balance -665 ml -292.70 ml -85.64 ml Exam H EENT examination; supple neck, no JVD. No lymphadenopathy. Orally intubated. Pupils are small bilaterally. No thyromegaly. Next Chest examination; diminished breath sounds bilaterally without any added sounds. S1-S2 audible, no murmurs. Regular rhythm. Abdomen examination; soft, no organomegaly. Bowel sounds audible. Extremity examination; no peripheral edema. TRAVEL GUIDE examination; patient currently is sedated. Next Chest x-ray was reviewed from late last night which is showing endotracheal tube at an adequate level, emphysematous changes are present bilaterally with bilateral nodular infiltrates. Results Result Diagram: 12/27/16 0521 12/27/16 0430 Results 24 hrs Laboratory Tests Test 12/27/16 04:30 12/27/16 05:21 Alanine Aminotransferase (ALT/SGPT) 22 Albumin 2.6 L Albumin/Globulin Ratio 0.54 Alkaline Phosphatase 83 Anion Gap 19 H Aspartate Amino Transf (AST/SGOT) 40 Blood Urea Nitrogen 41 H Calcium Level 7.4 L Carbon Dioxide Level 24 Chloride Level 117 H Creatinine 1.89 H Direct Bilirubin 0.00 Globulin 4.80 H Glucose Level 72 Indirect Bilirubin 0.2 Potassium Level 3.6 Sodium Level 156 H Total Bilirubin 0.2 Total Protein 7.4 Basophils # 0.0 Basophils % 0.3 Eosinophils # 0.0 Eosinophils % 0.0 Hematocrit 27.3 L Hemoglobin 8.7 L Lymphocytes # 3.3 H Lymphocytes % 28.7 Mean Corpuscular Hemoglobin 27.5 L Mean Corpuscular Hemoglobin Concent 31.9 L Mean Corpuscular Volume 86.4 Mean Platelet Volume Monocytes # 6.8 H Monocytes % 58.5 H Neutrophils # 1.5 L Neutrophils % 12.4 L Nucleated Red Blood Cells # 0.0 Nucleated Red Blood Cells % 0.0 Platelet Count 16 *L Prealbumin 7.6 L Red Blood Count 3.16 L Red Cell Distribution Width 18.4 H White Blood Count 11.6 H Medications Medications Current Medications Ondansetron HCl (Zofran Inj) 4 mg Q6H PRN IV NAUSEA AND/OR VOMITING; Start 12/23 at 16:30 Nitroglycerin (Nitroglycerin (Sl Tab) 0.4 Mg) 1 tab Q5M PRN SL CHEST PAIN; Start 12/23/16 at 16:30 Acetaminophen (Tylenol Supp) 650 mg Q4H PRN [place] PAIN LEVEL 1-3 OR FEVER Last administered on 12/25/16 01:06; Admin Dose 650 MG; Start 12/23/16 at 16:30 Morphine Sulfate (morphine) 2 mg Q4H PRN IV PAIN LEVEL 7-10; Start 12/23/16 at 16:30 Lorazepam (Ativan) 1 mg Q2H PRN IV ANXIETY Last administered on 12/27/16 07:45 ; Admin Dose 1 MG; Start 12/23/16 at 16:30 Bisacodyl (Dulcolax) 5 mg DAILY PRN PO CONSTIPATION; Start 12/23/16 at 16:30 Pantoprazole (Protonix Iv) 40 mg DAILY@06 IV Last administered on 12/27/16 06: 05; Admin Dose 40 MG; Start 12/24/16 at 06:00 Oseltamivir Phosphate 75 mg 75 mg Q12 PO Last administered on 12/27/16 10:07; Admin Dose 75 MG; Start 12/23/16 at 21:00; Stop 12/28/16 at 21:00 Propofol 100 ml @ 2.346 mls/ hr Q12H IV Last administered on 12/27/16 06:26; Admin Dose 23.46 MLS/HR; Start 12/23/16 at 22:00 Cefepime HCl 50 ml @ 100 mls/hr Q24H IVPB Last administered on 12/27/16 09:54 ; Admin Dose 100 MLS/HR; Start 12/26/16 at 10:00 Levofloxacin/ Dextrose 100 ml @ 50 mls/hr Q48H IVPB Last administered on 09:26; Admin Dose 50 MLS/HR; Start 12/26/16 at 09:00 Vancomycin HCl/ Sodium Chloride (Vancocin/NS) 150 ml @ 75 mls/hr Q24H IVPB Last administered on 12/26/16 12:30; Admin Dose 75 MLS/HR; Start 12/26/16 at 12: 00 Vancomycin HCl (Vanco Iv Per Pharmacy) PER PHARMACY DOSING NOTE XX ; Start at 11:00 Miscellaneous Information 1 ONCE ONCE XX ; Start 12/27/16 at 11:00; Stop at 11:01 Potassium Chloride/Dextrose (KCl/D5W) 1,005 ml @ 70 mls/hr [id number] IV Last administered on 12/27/16 09:54; Admin Dose 70 MLS/HR; Start 12/27/16 at 09:00 MYESHA OLIVER Dec 27, 2016 10:21
--- NOTE | 2016-12-27 11:29 | CONS ---
Date/Time of Note Date/Time of Note DATE: 12/27/16 TIME: 11:22 Assessment/Plan Assessment/Plan Additional Assessment/Plan Dysphagia * Possible NG tube displacement * Stat KUB * Restart tube feed per nutrition recommendation * Trend albumin and pre-albumin Severe thrombocytopenia Anemia * Likely of chronic disease * Monitor hemoglobin every 6 hours * Transfuse per HemeOnc recommendations Sepsis * Secondary to influenza pneumonia * Continue ID recommended COPD Acute hypoxemic respiratory failure Acute on chronic renal failure CML/MDS on chemo * Continue with hem/onc recommendations CHF with diastolic heart failure * Cardiology following Further recommendations depend on clinical Consultation Date/Type/Reason Admit Date/Time Dec 23, 2016 at 15:37 Type of Consultation: Gastroenteritis Reason for Consultation Malnutrition Hx of Present Illness 71-year-old male presented to ED with complaints of shortness of breath and chest pain for several days. During course of hospitalization patient noted to have Type A influenza and required acute intubation secondary to acute respiratory failure. Presently at bedside patient is unresponsive, intubated and sedated secondary to agitation. Per bedside nurse, patient dislodged NG tube and reports of sanguinous fluid when assessing NG tube. Stat KUB ordered, and if NG tube in place will restart feed per RD recommendations. Patient's nutritional status is very poor and due to thrombocytopenia, patient unable to get PICC line for TPN. Psychological: no complaints Past Medical History Medical History: cancer (CML), GERD Past Surgical History Past Surgical Hx: bowel resection Social History Alcohol Use: none Smoking Status: Current every day smoker Drug Use: none Exam/Review of Systems Vital Signs Vitals Vital Signs Date Time Temp Pulse Resp B/P Pulse Ox O2 Delivery O2 Flow Rate FiO2 12/27/16 09:30 91 27 98 40 12/27/16 06:00 101/60 Mechanical Ventilator 12/27/16 04:00 98.2 12/23/16 16:35 15.0 Intake and Output 12/26/16 12/26/16 12/27/16 15:00 23:00 07:00 Intake Total 300 ml 367.30 ml 514.36 ml Output Total 965 ml 660 ml 600 ml Balance -665 ml -292.70 ml -85.64 ml Exam Constitutional: non-verbal ENMT: nl external ears & nose, nl lips & teeth, nl nasal mucosa & septum Respiratory: other (Intubated) Cardiovascular: regular rate and rhythm Gastrointestinal: soft Musculoskeletal: nl extremities to inspection Results Result Diagram: 12/27/16 0521 12/27/16 0430 Results 24 hrs Laboratory Tests Test 12/27/16 04:30 12/27/16 05:21 Alanine Aminotransferase (ALT/SGPT) 22 Albumin 2.6 L Albumin/Globulin Ratio 0.54 Alkaline Phosphatase 83 Anion Gap 19 H Aspartate Amino Transf (AST/SGOT) 40 Blood Urea Nitrogen 41 H Calcium Level 7.4 L Carbon Dioxide Level 24 Chloride Level 117 H Creatinine 1.89 H Direct Bilirubin 0.00 Globulin 4.80 H Glucose Level 72 Indirect Bilirubin 0.2 Potassium Level 3.6 Sodium Level 156 H Total Bilirubin 0.2 Total Protein 7.4 Basophils # 0.0 Basophils % 0.3 Eosinophils # 0.0 Eosinophils % 0.0 Hematocrit 27.3 L Hemoglobin 8.7 L Lymphocytes # 3.3 H Lymphocytes % 28.7 Mean Corpuscular Hemoglobin 27.5 L Mean Corpuscular Hemoglobin Concent 31.9 L Mean Corpuscular Volume 86.4 Mean Platelet Volume Monocytes # 6.8 H Monocytes % 58.5 H Neutrophils # 1.5 L Neutrophils % 12.4 L Nucleated Red Blood Cells # 0.0 Nucleated Red Blood Cells % 0.0 Platelet Count 16 *L Prealbumin 7.6 L Red Blood Count 3.16 L Red Cell Distribution Width 18.4 H White Blood Count 11.6 H Medications Medications Current Medications Ondansetron HCl (Zofran Inj) 4 mg Q6H PRN IV NAUSEA AND/OR VOMITING; Start 12/23 at 16:30 Nitroglycerin (Nitroglycerin (Sl Tab) 0.4 Mg) 1 tab Q5M PRN SL CHEST PAIN; Start 12/23/16 at 16:30 Acetaminophen (Tylenol Supp) 650 mg Q4H PRN [place] PAIN LEVEL 1-3 OR FEVER Last administered on 12/25/16 01:06; Admin Dose 650 MG; Start 12/23/16 at 16:30 Morphine Sulfate (morphine) 2 mg Q4H PRN [place] PAIN LEVEL 7-10; Start 12/23/16 at 16:30 Lorazepam (Ativan) 1 mg Q2H PRN IV ANXIETY Last administered on 12/27/16 07:45 ; Admin Dose 1 MG; Start 12/23/16 at 16:30 Bisacodyl (Dulcolax) 5 mg DAILY PRN PO CONSTIPATION; Start 12/23/16 at 16:30 Pantoprazole (Protonix Iv) 40 mg DAILY@06 IV Last administered on 12/27/16 06: 05; Admin Dose 40 MG; Start 12/24/16 at 06:00 Oseltamivir Phosphate 75 mg 75 mg Q12 PO Last administered on 12/27/16 10:07; Admin Dose 75 MG; Start 12/23/16 at 21:00; Stop 12/28/16 at 21:00 Propofol 100 ml @ 2.346 mls/ hr Q12H IV Last administered on 12/27/16 10:55; Admin Dose 23.46 MLS/HR; Start 12/23/16 at 22:00 Cefepime HCl 50 ml @ 100 mls/hr Q24H IVPB Last administered on 12/27/16 09:54 ; Admin Dose 100 MLS/HR; Start 12/26/16 at 10:00 Levofloxacin/ Dextrose 100 ml @ 50 mls/hr Q48H IVPB Last administered on 09:26; Admin Dose 50 MLS/HR; Start 12/26/16 at 09:00 Vancomycin HCl/ Sodium Chloride (Vancocin/NS) 150 ml @ 75 mls/hr Q24H IVPB Last administered on 12/26/16 12:30; Admin Dose 75 MLS/HR; Start 12/26/16 at 12: 00 Vancomycin HCl PER PHARMACY DOSING NOTE XX ; Start 12/26/16 at 11:00 Potassium Chloride/Dextrose (KCl/D5W) 1,005 ml @ 70 mls/hr [id number] IV Last administered on 12/27/16 09:54; Admin Dose 70 MLS/HR; Start 12/27/16 at 09:00 DARRON CAMP MD Dec 27, 2016 11:29
--- NOTE | 2016-12-27 11:31 | RADRPT ---
PROCEDURE: XR Abdomen CLINICAL INDICATION: Confirm NG tube placement TECHNIQUE: An AP supine radiograph of the abdomen was submitted. COMPARISON: None FINDINGS: An NG tube is seen to be in place with the tip projecting over the right ilium. Presumably the tip lies in a very distended stomach. Air is seen within colon which is displaced inferiorly into the p marlene. There is increased soft tissue density within the upper abdomen which probably represents a combinat ion of distended stomach, hepatomegaly possibly splenomegaly. No discrete mass is evident. No pathological calcification is identified. The osseous elements appear unremarkable. Interstitial prominence is seen at the lung bases. IMPRESSION: 1. An NG tube is in place with the tip projecting over the right ilium presumably within 8 distende d stomach. 2. Increased soft tissue density throughout the upper abdomen with displacement of the nonspecific bowel inferiorly in the pelvis suggestive of a combination distended stomach and hepatosplenomegaly. 3. The bowel gas pattern is nonspecific 4. Interstitial prominence noted at the lung bases bilaterally. Physician Esteban Date Time Electronically viewed and signed by Physician Esteban on 12/27/2016 11:31 /
--- NOTE | 2016-12-27 12:16 | PN ---
DATE: 12/27/2016 SUBJECTIVE: Patient is lying comfortably in bed, nonverbal, noncommunicative, sedated. Does not to lerate sedation vacation; he gets very agitated per RN. VITAL SIGNS: Temperature 98.2, pulse 91, respirations 28, blood pressure 101/60, saturation 97% on 40 FIO2. LABORATORY: WBC 11.6, H and H 8.7 and 27.3, platelets 16, BUN 41, creatinine 1.89. Sodium 156. MICROBIOLOGY: Influenza swab came back positive for influenza A. Blood culture had been negative. INDWELLINGS: Endotracheal tube, NG tube, Leyva, PICC line. ANTIMICROBIALS: 1. Vancomycin. 2. Cefepime. 3. Levaquin. 4. Tamiflu. PHYSICAL EXAMINATION: GENERAL: Chronically ill-appearing, elderly man who is lying comfortably in bed. HEENT: Head atraumatic, normocephalic. Sclerae anicteric. Buccal mucosa dry. NECK: Supple. CHEST: Rise symmetrical. Breath sounds diminished at the bases with scattered rhonchi. HEART: S1, S2. ABDOMEN: Soft. Bowel tones hypoactive. EXTREMITIES: Without cyanosis. ASSESSMENT: 1. Severe sepsis. 2. Influenza A virus with superimposed healthcare-associated pneumonia, possibly aspiration. 3. Acute renal failure. 4. Anemia with progressive thrombocytopenia. 5. CML, myelodysplasia, on chemotherapy followed by Dr. Pryor in oncology consultation. 6. Acute renal failure. PLAN: The patient is doing poorly. He is being followed by multiple consultants. We will change c efepime to meropenem given significant thrombocytopenia. Continue other antibiotics. Check urine c ulture. Repeat sputum cultures. Prognosis guarded. Dictated By: DARLENE CARTAGENA PHARM SPEC for CORRINA PEÑA MD NI/NTS Conf#: [id number] DID#: [id number]
[2016-12-27] MEDS: VANCOMYCIN 750 MG in SOD CHLORIDE 0.9% 150 ML IVPB SCH (12:31)
[2016-12-27] MEDS: FLUCONAZOLE 100 MG/NS (PMX) 50 ML IVPB SCH (13:55)
--- NOTE | 2016-12-27 14:17 | RADRPT ---
PROCEDURE: CT Brain without contrast. CLINICAL INDICATION: Headaches. Neurologic deficit Other specified postprocedural states WT:2 30 TECHNIQUE: A CT of the brain was performed on multidetector high-resolution CT scanner utilizing a xial sections from the skull base through the vertex without contrast. One or more of the following dose reduction techniques were used: Automated exposure control, Adjustment of the mA and/or kV acc ording to patient size, and/or use of iterative reconstruction technique. DOSE: CTDI = mGy and the DLP = mGy-cm. COMPARISON: None available FINDINGS: No acute intracranial hemorrhage, significant mass effect or midline shift. The godoy-white different iation is grossly preserved. The ventricles are normal in size for age. Atherosclerotic calcifications of the cavernous segments of the internal carotid arteries are seen. Extensive opacification of the visualized frontal sinuses, ethmoid sinuses, maxillary sinuses with s cattered central high density seen. Partial opacification of the bilateral sphenoid sinuses with fr othy secretions. IMPRESSION: No acute intracranial hemorrhage or significant mass effect. Extensive paranasal sinus disease with central high density seen. This could be due to inspissated secretions or chronic fungal conization. Recommend correlation for acute sinusitis. Intracranial atherosclerosis. RPTAT: AA .Tj Greene MD, Date Time Electronically viewed and signed by .Tj Greene MD, on 12/27/2016 14:17 .T/
[2016-12-27] MEDS: MEROPENEM 500 MG/100 ML (PMX) 100 ML IVPB SCH ×2 (14:56→23:54)
[2016-12-28] VITALS (58 sets, daily range): BP systolic 98–140; BP diastolic 52–88; PULSE 72–101; RESP 17–31
[2016-12-28] MEDS: IPRATROPIUM (HFA) 12.9 GM INHALER INH SCH ×6 (01:27→20:00)
[2016-12-28] MEDS: ALBUTEROL HFA 8 GM INHALER INH SCH ×6 (01:27→20:00)
[2016-12-28] MEDS: PROPOFOL 100 ML IV SCH ×6 (02:20→23:46)
[2016-12-28] MEDS: POTASSIUM CHLORIDE 10 MEQ in DEXTROSE 5% 1,000 ML IV SCH ×2 (03:37→13:44)
[2016-12-28] MEDS: PANTOPRAZOLE 40 MG INJ IV SCH (06:02)
[2016-12-28] MEDS: OSELTAMIVIR PHOSPHATE (6 MG/ML PO SYG) PO SCH ×2 (08:53→20:42)
[2016-12-28] MEDS: MEROPENEM 500 MG/100 ML (PMX) 100 ML IVPB SCH ×2 (08:54→20:43)
--- NOTE | 2016-12-28 08:56 | PN ---
Date/Time of Note Date/Time of Note DATE: 12/28/16 TIME: 08:52 Assessment/Plan VTE Prophylaxis VTE Prophylaxis Intervention: contraindicated VTE Contraindication Reason: thrombocytopenia Lines/Catheters IV Catheter Type (from Nrsg): Peripheral IV Urinary Cath still in place: Yes Reason Cath still needed: terminal illness/intractable pain Assessment/Plan Assessment/Plan 71 yo male with a past medical history of CML on chemotherapy, MDS, GERD, COPD, Anemia of chronic disease, who presents with acute shortness of breath for the last four days. 1. Sepsis 2/2 to Influenza Pneumonia - consult to ID placed, IV antibiotics - resume HCAP,on tamiflu - cefepime --> meropenem for thrombocytopenia 2. Acute hypoxemic respiratory failure - s/p intubation - severe acidosis - improving - appreciate pulm recs - wean as tolerated - improving ABG 3. Severe thrombocytopenia - replete - recheck - replete today - check DIC panel - medication induced?- replete if < 20K - check HIT antibodies, awaiting labs 4. Acute on chronic renal failure - 2/2 to sepsis - IVF - renally adjust medications, avoid nephrotoxins, worsening, appreciate renal consult 5. Anemia - of chronic disease - CA - will transfuse 2 units PRBCS, check serial H/H q6h - transfuse as per hem/onc, repeat transfusion, add ferrilicit 6. CML/MDS on chemo - continue with hem/onc recs 7. CHF with diastolic heart failure - consult cardiology, type II NSTEMI ? - demand ischemia, recent ECHO EF 45%, diastolic dysfunction 8. COPD - see #1 9. GERD - continue with IV protonix 10. Smoking abuse - advised patient on cessation 11. Hypernatremia - dehydration vs volume depletion vs other - continue with free water and D5W - as per nephro 12. GI ppx - protonix 13. DVT ppx - contraindicated for anticoagulation - monitor acute changes dispo - f/u recs, monitor changes, prognosis is guarded/poor - f/u palliative care consult - if no improvement, code status needs to be reassessed - HIT antibodies, labs this critical care note took greater than 35 min to complete Subjective 24 Hr Interval Summary Free Text/Dictation Patient had no overnight events. Still with increasing sodium, as per nurse. Otherwise decreased agitation. Spoke to the nurse about the care plan. 15 minutes spent. Exam/Review of Systems Vital Signs Vitals Vital Signs Date Time Temp Pulse Resp B/P Pulse Ox O2 Delivery O2 Flow Rate FiO2 12/28/16 06:30 76 18 106/56 99 Mechanical Ventilator 12/28/16 05:46 40 12/28/16 04:00 98.4 Intake and Output 12/27/16 12/27/16 12/28/16 15:00 23:00 07:00 Intake Total 300 ml 946 ml 1869 ml Output Total 570 ml 395 ml 455 ml Balance -270 ml 551 ml 1414 ml Exam Gen Frans[place]: intubated/sedated HEENT: NC/AT, PERRLA, ETT NECK: supple, no thyromegaly THORAX: symmetrical, no obvious deformities CV: S1S2, tachycardiac, no M/G/R Lungs: coarse breath sounds throughout all lung masters, diminished at the bases , with end expiratory wheezing, improving daily Abd: soft, NT/ND, +BS, no rebound, no guarding, neg HSM, scaphoid EXT: 1+ edema, no ecchymosis, no clubbing, FROM, muscle wasting noted Neuro: intubated/sedated Psych: cannot assess Skin: scattered petechiae Results Result Diagram: 12/27/16 0521 12/27/16 0430 Results 24 hrs Laboratory Tests Test 12/27/16 11:10 Vancomycin Level Trough 12.7 Medications Medications Current Medications Ondansetron HCl (Zofran Inj) 4 mg Q6H PRN IV NAUSEA AND/OR VOMITING; Start 12/23 at 16:30 Nitroglycerin (Nitroglycerin (Sl Tab) 0.4 Mg) 1 tab Q5M PRN SL CHEST PAIN; Start 12/23/16 at 16:30 Acetaminophen (Tylenol Supp) 650 mg Q4H PRN [place] PAIN LEVEL 1-3 OR FEVER Last administered on 12/25/16 01:06; Admin Dose 650 MG; Start 12/23/16 at 16:30 Morphine Sulfate (morphine) 2 mg Q4H PRN IV PAIN LEVEL 7-10; Start 12/23/16 at 16:30 Lorazepam (Ativan) 1 mg Q2H PRN IV ANXIETY Last administered on 12/27/16 07:45 ; Admin Dose 1 MG; Start 12/23/16 at 16:30 Bisacodyl (Dulcolax) 5 mg DAILY PRN PO CONSTIPATION; Start 12/23/16 at 16:30 Pantoprazole (Protonix Iv) 40 mg DAILY@06 IV Last administered on 12/28/16 06: 02; Admin Dose 40 MG; Start 12/24/16 at 06:00 Oseltamivir Phosphate 75 mg 75 mg Q12 PO Last administered on 12/27/16 21:12; Admin Dose 75 MG; Start 12/23/16 at 21:00; Stop 12/28/16 at 21:00 Propofol 100 ml @ 2.346 mls/ hr Q12H IV Last administered on 12/28/16 06:03; Admin Dose 23.46 MLS/HR; Start 12/23/16 at 22:00 Levofloxacin/ Dextrose 100 ml @ 50 mls/hr Q48H IVPB Last administered on 09:26; Admin Dose 50 MLS/HR; Start 12/26/16 at 09:00 Vancomycin HCl/ Sodium Chloride (Vancocin/NS) 150 ml @ 75 mls/hr Q24H IVPB Last administered on 12/27/16 12:31; Admin Dose 75 MLS/HR; Start 12/26/16 at 12: 00 Vancomycin HCl PER PHARMACY DOSING NOTE XX ; Start 12/26/16 at 11:00 Potassium Chloride 10 meq/ Dextrose 1,005 ml @ 70 mls/hr [id number] IV Last administered on 12/28/16 03:37; Admin Dose 70 MLS/HR; Start 12/27/16 at 09:00 Meropenem 100 ml @ 200 mls/hr Q12 IVPB Last administered on 12/27/16 23:54; Admin Dose 200 MLS/HR; Start 12/27/16 at 14:00 Fluconazole/ Sodium Chloride (Diflucan 100 Mg/ NS (Pmx)) 50 ml @ 50 mls/hr Q24H IVPB Last administered on 12/27/16 13:55; Admin Dose 50 MLS/HR; Start at 13:00 Procedures Procedures Abd Xray IMPRESSION: 1. An NG tube is in place with the tip projecting over the right ilium presumably within 8 distended stomach. 2. Increased soft tissue density throughout the upper abdomen with displacement of the nonspecific bowel inferiorly in the pelvis suggestive of a combination distended stomach and hepatosplenomegaly. 3. The bowel gas pattern is nonspecific 4. Interstitial prominence noted at the lung bases bilaterally. HUMA THAKKAR MD Dec 28, 2016 08:56
[2016-12-28] MEDS: LEVOFLOXACIN 500MG/D5W (PMX) 100 ML IVPB SCH (09:06)
[2016-12-28 10:14] LABS: ADD SCAN DIFF NO
--- NOTE | 2016-12-28 10:23 | CONS ---
Date/Time of Note Date/Time of Note DATE: 12/28/16 TIME: 10:19 Assessment/Plan Assessment/Plan Additional Assessment/Plan 1. Acute kidney injury, likely secondary to acute tubular necrosis in the setting of sepsis. 2. Acute hypoxemic respiratory failure, multifactorial, secondary to sepsis and secondary to pulmonary condition. 3. Acute pulmonary edema with influenza pneumonia. 4. History of congestive heart failure with diastolic heart failure. 5. History of chronic obstructive pulmonary disease. 6. History of gastroesophageal reflux disease. 7. History of smoking. 8. 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 PLAN: pt remains intubated, no labs today to review good urine output IV abx as per ID Na trending up- on D5W with 10 KCl at 75 cc/hr, add free water 200 cc Q 6 hr pt has poor prognosis due to CML consider palliative care consult will follow up K replacement this critical care note took greater than 45 min to complete Consultation Date/Type/Reason Admit Date/Time Dec 23, 2016 at 15:37 Initial Consult Date 12/24/16 Type of Consultation: NEPHROLOGY Referring Provider: BEN COURTNEY MD 24 HR Interval Summary Free Text/Dictation no events, cr better, platelets are still low, No labs today to review Exam/Review of Systems Vital Signs Vitals Vital Signs Date Time Temp Pulse Resp B/P Pulse Ox O2 Delivery O2 Flow Rate FiO2 12/28/16 08:00 40 12/28/16 08:00 74 12/28/16 06:30 18 106/56 99 Mechanical Ventilator 12/28/16 04:00 98.4 Intake and Output 12/27/16 12/27/16 12/28/16 15:00 23:00 07:00 Intake Total 300 ml 946 ml 1869 ml Output Total 570 ml 395 ml 455 ml Balance -270 ml 551 ml 1414 ml Exam Gen [place]ans[place]: intubated/sedated CV: S1S2, tachycardiac, no M/G/R Lungs: coarse breath sounds throughout all lung masters, diminished at the bases , with end expiratory wheezing, improving daily Abd: soft, NT/ND, +BS, no rebound, no guarding, neg HSM, scaphoid EXT: 1+ edema, no ecchymosis, no clubbing, FROM, muscle wasting noted Neuro: intubated/sedated Skin: scattered petechiae Results Result Diagram: 12/27/16 0521 12/27/16 0430 Results 24 hrs Laboratory Tests Test 12/27/16 11:10 Vancomycin Level Trough 12.7 Medications Medications Current Medications Ondansetron HCl (Zofran Inj) 4 mg Q6H PRN IV NAUSEA AND/OR VOMITING; Start 12/23 at 16:30 Nitroglycerin (Nitroglycerin (Sl Tab) 0.4 Mg) 1 tab Q5M PRN SL CHEST PAIN; Start 12/23/16 at 16:30 Acetaminophen (Tylenol Supp) 650 mg Q4H PRN [place] PAIN LEVEL 1-3 OR FEVER Last administered on 12/25/16 01:06; Admin Dose 650 MG; Start 12/23/16 at 16:30 Morphine Sulfate (morphine) 2 mg Q4H PRN IV PAIN LEVEL 7-10; Start 12/23/16 at 16:30 Lorazepam (Ativan) 1 mg Q2H PRN IV ANXIETY Last administered on 12/27/16 07:45 ; Admin Dose 1 MG; Start 12/23/16 at 16:30 Bisacodyl (Dulcolax) 5 mg DAILY PRN PO CONSTIPATION; Start 12/23/16 at 16:30 Pantoprazole (Protonix Iv) 40 mg DAILY@06 IV Last administered on 12/28/16 06: 02; Admin Dose 40 MG; Start 12/24/16 at 06:00 Oseltamivir Phosphate 75 mg 75 mg Q12 PO Last administered on 12/28/16 08:53; Admin Dose 75 MG; Start 12/23/16 at 21:00; Stop 12/28/16 at 21:00 Propofol 100 ml @ 2.346 mls/ hr Q12H IV Last administered on 12/28/16 06:03; Admin Dose 23.46 MLS/HR; Start 12/23/16 at 22:00 Levofloxacin/ Dextrose 100 ml @ 50 mls/hr Q48H IVPB Last administered on 09:06; Admin Dose 50 MLS/HR; Start 12/26/16 at 09:00 Vancomycin HCl/ Sodium Chloride (Vancocin/NS) 150 ml @ 75 mls/hr Q24H IVPB Last administered on 12/27/16 12:31; Admin Dose 75 MLS/HR; Start 12/26/16 at 12: 00 Vancomycin HCl PER PHARMACY DOSING NOTE XX ; Start 12/26/16 at 11:00 Potassium Chloride 10 meq/ Dextrose 1,005 ml @ 70 mls/hr [id number] IV Last administered on 12/28/16 03:37; Admin Dose 70 MLS/HR; Start 12/27/16 at 09:00 Meropenem 100 ml @ 200 mls/hr Q12 IVPB Last administered on 12/28/16 08:54; Admin Dose 200 MLS/HR; Start 12/27/16 at 14:00 Fluconazole/ Sodium Chloride (Diflucan 100 Mg/ NS (Pmx)) 50 ml @ 50 mls/hr Q24H IVPB Last administered on 12/27/16 13:55; Admin Dose 50 MLS/HR; Start at 13:00 GILL PEREIRA MD Dec 28, 2016 10:23
[2016-12-28 10:37] LABS: ALBUMIN 2.6 g/dl (3.3-4.9); POTASSIUM 3.7 mmol/L (3.5-5.1)
[2016-12-28 10:40] LABS: ALBUMIN/GLOBULIN RATIO 0.52; BILIRUBIN,INDIRECT 0.1 mg/dl (0-1.1); BILIRUBIN,TOTAL 0.1 mg/dl (0.2-1.3); CREATININE 1.43 mg/dl (0.61-1.24); TOTAL PROTEIN 7.6 g/dl (6.1-8.1)
[2016-12-28 10:41] LABS: CALCIUM 7.6 mg/dl (8.4-10.2)
[2016-12-28] MEDS: VANCOMYCIN 750 MG in SOD CHLORIDE 0.9% 150 ML IVPB SCH (11:57)
[2016-12-28] MEDS: LORAZEPAM 2 MG INJ IV PRN (12:08)
--- NOTE | 2016-12-28 13:13 | CONS ---
Date/Time of Note Date/Time of Note DATE: 12/28/16 TIME: 13:11 Assessment/Plan Assessment/Plan Chief Complaint/Hosp Course IMPRESSION: 1. 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 Cardiomyopathy with decreased left ventricular ejection fraction, last being approximately 45% to 50% by echo 11/2016. 3. Hypotension, borderline. 4. Influenza positive. 5. History of chronic myelogenous leukemia. 6. Renal failure. 7. Thrombocytopenia, severe. 8. Anemia. 9. Leukocytosis. Recc: -Tele -serial ecg's -Continue abx's and f/u cx data -Follow volume status closely -continue tamiflu -Wean vent as tolerated Problems: Consultation Date/Type/Reason Admit Date/Time Dec 23, 2016 at 15:37 Initial Consult Date 12/24/16 Type of Consultation: cardiology Reason for Consultation cardiomyopathy Referring Provider: BEN COURTNEY MD Exam/Review of Systems Vital Signs Vitals Vital Signs Date Time Temp Pulse Resp B/P Pulse Ox O2 Delivery O2 Flow Rate FiO2 12/28/16 12:00 98.2 78 22 114/58 100 Mechanical Ventilator 12/28/16 11:10 40 Intake and Output 12/27/16 12/27/16 12/28/16 15:00 23:00 07:00 Intake Total 300 ml 946 ml 1869 ml Output Total 570 ml 395 ml 455 ml Balance -270 ml 551 ml 1414 ml Exam Review of Systems: CONSTITUTIONAL: No fevers, chills. PULMONARY: No sob CARDIOVASCULAR: No chest pain/palpitations GASTROINTESTINAL: No nausea/vomiting. GENITOURINARY: No hematuria/dysuria. MUSCULOSKELETAL: No myagias/arthalgias. PSYCHIATRIC: The patient denies depression. NEUROLOGIC: No weakness Constitutional: other (sleeping) ENMT: intubated Neck: jvd (8-9 cm water) Respiratory: other (upper airway rhochi) Cardiovascular: regular rate and rhythm Gastrointestinal: non-tender, soft Musculoskeletal: muscle tone (normal) Extremities: edema (none) Neurological: other (No focal deficits) Results Result Diagram: 12/27/16 0521 12/28/16 1004 Results 24 hrs Laboratory Tests Test 12/28/16 10:04 12/28/16 12:34 Alanine Aminotransferase (ALT/SGPT) 25 Albumin 2.6 L Albumin/Globulin Ratio 0.52 Alkaline Phosphatase 86 Anion Gap 17 H Aspartate Amino Transf (AST/SGOT) 44 Blood Urea Nitrogen 34 H Calcium Level 7.6 L Carbon Dioxide Level 25 Chloride Level 113 H Creatinine 1.43 H Direct Bilirubin 0.00 Globulin 5.00 H Glucose Level 87 Indirect Bilirubin 0.1 Potassium Level 3.7 Sodium Level 151 H Total Bilirubin 0.1 L Total Protein 7.6 Lab Scanned Report REFERENCE LAB Medications Medications Current Medications Ondansetron HCl (Zofran Inj) 4 mg Q6H PRN IV NAUSEA AND/OR VOMITING; Start 12/23 at 16:30 Nitroglycerin (Nitroglycerin (Sl Tab) 0.4 Mg) 1 tab Q5M PRN SL CHEST PAIN; Start 12/23/16 at 16:30 Acetaminophen (Tylenol Supp) 650 mg Q4H PRN [place] PAIN LEVEL 1-3 OR FEVER Last administered on 12/25/16 01:06; Admin Dose 650 MG; Start 12/23/16 at 16:30 Morphine Sulfate (morphine) 2 mg Q4H PRN IV PAIN LEVEL 7-10; Start 12/23/16 at 16:30 Lorazepam (Ativan) 1 mg Q2H PRN IV ANXIETY Last administered on 12/28/16 12:08 ; Admin Dose 1 MG; Start 12/23/16 at 16:30 Bisacodyl (Dulcolax) 5 mg DAILY PRN PO CONSTIPATION; Start 12/23/16 at 16:30 Pantoprazole (Protonix Iv) 40 mg DAILY@06 IV Last administered on 12/28/16 06: 02; Admin Dose 40 MG; Start 12/24/16 at 06:00 Oseltamivir Phosphate 75 mg 75 mg Q12 PO Last administered on 12/28/16 08:53; Admin Dose 75 MG; Start 12/23/16 at 21:00; Stop 12/28/16 at 21:00 Propofol 100 ml @ 2.346 mls/ hr Q12H IV Last administered on 12/28/16 11:19; Admin Dose 23.46 MLS/HR; Start 12/23/16 at 22:00 Levofloxacin/ Dextrose 100 ml @ 50 mls/hr Q48H IVPB Last administered on 09:06; Admin Dose 50 MLS/HR; Start 12/26/16 at 09:00 Vancomycin HCl/ Sodium Chloride (Vancocin/NS) 150 ml @ 75 mls/hr Q24H IVPB Last administered on 12/28/16 11:57; Admin Dose 75 MLS/HR; Start 12/26/16 at 12: 00 Vancomycin HCl PER PHARMACY DOSING NOTE XX ; Start 12/26/16 at 11:00 Potassium Chloride 10 meq/ Dextrose 1,005 ml @ 70 mls/hr [id number] IV Last administered on 12/28/16 03:37; Admin Dose 70 MLS/HR; Start 12/27/16 at 09:00 Meropenem 100 ml @ 200 mls/hr Q12 IVPB Last administered on 12/28/16 08:54; Admin Dose 200 MLS/HR; Start 12/27/16 at 14:00 Fluconazole/ Sodium Chloride (Diflucan 100 Mg/ NS (Pmx)) 50 ml @ 50 mls/hr Q24H IVPB Last administered on 12/27/16 13:55; Admin Dose 50 MLS/HR; Start at 13:00 MILENA VELA Dec 28, 2016 13:13
[2016-12-28 13:27] LABS: HEMATOCRIT 24.3 % (42.0-52.0); HEMOGLOBIN 8.1 g/dl (14.0-18.0); MEAN CORPUSCULAR VOLUME 85.8 fl (82.0-101.0); RED BLOOD COUNT 2.83 10^6/ul (4.70-6.10); WHITE BLOOD COUNT 8.7 10^3/ul (4.8-10.8)
[2016-12-28 13:28] LABS: MEAN CORPUSCULAR HEMOGLOBIN 28.6 pg (29.0-33.0); MEAN CORPUSCULAR HGB CONC 33.3 g/dl (32.0-37.0); MEAN PLATELET VOLUME 8.2 fl (7.4-10.4); PLATELET COUNT 43 10^3/UL (140-440); RED CELL DISTRIBUTION WIDTH 19.7 % (11.5-14.5)
--- NOTE | 2016-12-28 13:34 | PN ---
Date/Time of Note Date/Time of Note DATE: 12/28/16 TIME: 13:30 Assessment/Plan VTE Prophylaxis VTE Prophylaxis Intervention: SCD's Lines/Catheters IV Catheter Type (from Nrsg): Peripheral IV Urinary Cath still in place: Yes Reason Cath still needed: urinary retention Assessment/Plan Chief Complaint/Hosp Course 71-year-old male presented to ED with complaints of shortness of breath and chest pain for several days. During course of hospitalization patient noted to have Type A influenza and required acute intubation secondary to acute respiratory failure. Presently at bedside patient is unresponsive, intubated and sedated secondary to agitation. Per bedside nurse, patient dislodged NG tube and reports of sanguinous fluid when assessing NG tube. Stat KUB ordered, and if NG tube in place will restart feed per RD recommendations. Patient's nutritional status is very poor and due to thrombocytopenia, patient unable to get PICC line for TPN. Problems: Assessment/Plan Assessment : Respiratory failure/ventilator dependent Nasogastric tube in adequate position Influenza pneumonia/sepsis History of COPD Anemia/thrombocytopenia/history of CML/MDS Acute on chronic renal failure History of CHF Plan: No active GI problem at this point We will follow up on request Subjective 24 Hr Interval Summary Free Text/Dictation Course reviewed with nursing staff NG tube in adequate position No GI symptoms or signs of concern We will sign off and follow upon request Exam/Review of Systems Vital Signs Vitals Vital Signs Date Time Temp Pulse Resp B/P Pulse Ox O2 Delivery O2 Flow Rate FiO2 12/28/16 13:00 73 12/28/16 12:00 98.2 22 114/58 100 Mechanical Ventilator 12/28/16 11:10 40 Intake and Output 12/27/16 12/27/16 12/28/16 15:00 23:00 07:00 Intake Total 300 ml 946 ml 1869 ml Output Total 570 ml 395 ml 455 ml Balance -270 ml 551 ml 1414 ml Exam Constitutional: other (Not responding) Head: atraumatic, normocephalic Neck: non-tender, supple Respiratory: crackles/rales (Both bases), diminished breath sounds Cardiovascular: nl pulses, regular rate and rhythm Gastrointestinal: nl liver, spleen, non-tender, soft Musculoskeletal: nl extremities to inspection Skin: nl turgor Lymph: nl lymph nodes Results Result Diagram: 12/27/16 0521 12/28/16 1004 Results 24 hrs Laboratory Tests Test 12/28/16 10:04 12/28/16 12:34 Alanine Aminotransferase (ALT/SGPT) 25 Albumin 2.6 L Albumin/Globulin Ratio 0.52 Alkaline Phosphatase 86 Anion Gap 17 H Aspartate Amino Transf (AST/SGOT) 44 Blood Urea Nitrogen 34 H Calcium Level 7.6 L Carbon Dioxide Level 25 Chloride Level 113 H Creatinine 1.43 H Direct Bilirubin 0.00 Globulin 5.00 H Glucose Level 87 Indirect Bilirubin 0.1 Potassium Level 3.7 Sodium Level 151 H Total Bilirubin 0.1 L Total Protein 7.6 Lab Scanned Report REFERENCE LAB Medications Medications Current Medications Ondansetron HCl (Zofran Inj) 4 mg Q6H PRN IV NAUSEA AND/OR VOMITING; Start 12/23 at 16:30 Nitroglycerin (Nitroglycerin (Sl Tab) 0.4 Mg) 1 tab Q5M PRN SL CHEST PAIN; Start 12/23/16 at 16:30 Acetaminophen (Tylenol Supp) 650 mg Q4H PRN [place] PAIN LEVEL 1-3 OR FEVER Last administered on 12/25/16 01:06; Admin Dose 650 MG; Start 12/23/16 at 16:30 Morphine Sulfate (morphine) 2 mg Q4H PRN IV PAIN LEVEL 7-10; Start 12/23/16 at 16:30 Lorazepam (Ativan) 1 mg Q2H PRN IV ANXIETY Last administered on 12/28/16 12:08 ; Admin Dose 1 MG; Start 12/23/16 at 16:30 Bisacodyl (Dulcolax) 5 mg DAILY PRN PO CONSTIPATION; Start 12/23/16 at 16:30 Pantoprazole (Protonix Iv) 40 mg DAILY@06 IV Last administered on 12/28/16 06: 02; Admin Dose 40 MG; Start 12/24/16 at 06:00 Oseltamivir Phosphate 75 mg 75 mg Q12 PO Last administered on 12/28/16 08:53; Admin Dose 75 MG; Start 12/23/16 at 21:00; Stop 12/28/16 at 21:00 Propofol 100 ml @ 2.346 mls/ hr Q12H IV Last administered on 12/28/16 11:19; Admin Dose 23.46 MLS/HR; Start 12/23/16 at 22:00 Levofloxacin/ Dextrose 100 ml @ 50 mls/hr Q48H IVPB Last administered on 09:06; Admin Dose 50 MLS/HR; Start 12/26/16 at 09:00 Vancomycin HCl/ Sodium Chloride (Vancocin/NS) 150 ml @ 75 mls/hr Q24H IVPB Last administered on 12/28/16 11:57; Admin Dose 75 MLS/HR; Start 12/26/16 at 12: 00 Vancomycin HCl PER PHARMACY DOSING NOTE XX ; Start 12/26/16 at 11:00 Potassium Chloride 10 meq/ Dextrose 1,005 ml @ 70 mls/hr [id number] IV Last administered on 12/28/16 03:37; Admin Dose 70 MLS/HR; Start 12/27/16 at 09:00 Meropenem 100 ml @ 200 mls/hr Q12 IVPB Last administered on 12/28/16 08:54; Admin Dose 200 MLS/HR; Start 12/27/16 at 14:00 Fluconazole/ Sodium Chloride (Diflucan 100 Mg/ NS (Pmx)) 50 ml @ 50 mls/hr Q24H IVPB Last administered on 12/27/16 13:55; Admin Dose 50 MLS/HR; Start at 13:00 DARRON CAMP MD Dec 28, 2016 13:34
[2016-12-28] MEDS: FLUCONAZOLE 100 MG/NS (PMX) 50 ML IVPB SCH (14:27)
--- NOTE | 2016-12-28 15:06 | CONS ---
Date/Time of Note Date/Time of Note DATE: 12/28/16 TIME: 15:04 Assessment/Plan Assessment/Plan Chief Complaint/Hosp Course ID PROGRESS NOTE SUBJECTIVE: ETT, NGT, noncommunicative, VSS, restless requires sedation MICROBIOLOGY: Influenza swab came back positive for influenza A. Blood culture had been negative. INDWELLINGS: Endotracheal tube, NG tube, Leyva, PICC line. ANTIMICROBIALS: 1. Vancomycin. 2. Meropenem (s/p Cefepime) 3. Levaquin. 4. Tamiflu. PHYSICAL EXAMINATION: GENERAL: Chronically ill-appearing, elderly man who is lying comfortably in bed. HEENT: NGT secure, ETT secure to Vent NECK: Supple. CHEST: Rise symmetrical. Breath sounds diminished at the bases with scattered rhonchi. HEART: S1, S2. ABDOMEN: Soft. Bowel tones hypoactive. EXTREMITIES: Without cyanosis. ASSESSMENT: 1. Severe sepsis. 2. Influenza A virus with superimposed healthcare-associated pneumonia, possibly aspiration. 3. Acute renal failure. 4. Anemia with progressive thrombocytopenia. 5. CML, myelodysplasia, on chemotherapy followed by Dr. Pryor in oncology consultation. 6. Acute renal failure. PLAN: ABX adjusted yesterday Nera changed Cefepime to Merrem for concern thrombocytopenia Continue current ABX, non-aggressive medical care . Problems: Consultation Date/Type/Reason Admit Date/Time Dec 23, 2016 at 15:37 Initial Consult Date 12/24/16 Type of Consultation: ID Referring Provider: BEN COURTNEY MD Exam/Review of Systems Vital Signs Vitals Vital Signs Date Time Temp Pulse Resp B/P Pulse Ox O2 Delivery O2 Flow Rate FiO2 12/28/16 13:00 73 12/28/16 12:00 98.2 22 114/58 100 Mechanical Ventilator 12/28/16 11:10 40 Intake and Output 12/27/16 12/27/16 12/28/16 15:00 23:00 07:00 Intake Total 300 ml 946 ml 1869 ml Output Total 570 ml 395 ml 455 ml Balance -270 ml 551 ml 1414 ml Results Result Diagram: 12/28/16 1004 12/28/16 1004 Results 24 hrs Laboratory Tests Test 12/28/16 10:04 12/28/16 12:34 Alanine Aminotransferase (ALT/SGPT) 25 Albumin 2.6 L Albumin/Globulin Ratio 0.52 Alkaline Phosphatase 86 Anion Gap 17 H Aspartate Amino Transf (AST/SGOT) 44 Basophils % 0.0 Blood Urea Nitrogen 34 H Calcium Level 7.6 L Carbon Dioxide Level 25 Chloride Level 113 H Creatinine 1.43 H Direct Bilirubin 0.00 Eosinophils % 0.0 Globulin 5.00 H Glucose Level 87 Hematocrit 24.3 L Hemoglobin 8.1 L Indirect Bilirubin 0.1 Lymphocytes % 47.0 Mean Corpuscular Hemoglobin 28.6 L Mean Corpuscular Hemoglobin Concent 33.3 Mean Corpuscular Volume 85.8 Mean Platelet Volume 8.2 # Monocytes % 39.0 H Neutrophils % 13.0 L Nucleated Red Blood Cells % 0.0 Platelet Count 43 #L Potassium Level 3.7 Red Blood Count 2.83 L Red Cell Distribution Width 19.7 H Sodium Level 151 H Total Bilirubin 0.1 L Total Protein 7.6 White Blood Count 8.7 # Lab Scanned Report REFERENCE LAB Medications Medications Current Medications Ondansetron HCl (Zofran Inj) 4 mg Q6H PRN IV NAUSEA AND/OR VOMITING; Start 12/23 at 16:30 Nitroglycerin (Nitroglycerin (Sl Tab) 0.4 Mg) 1 tab Q5M PRN SL CHEST PAIN; Start 12/23/16 at 16:30 Acetaminophen (Tylenol Supp) 650 mg Q4H PRN [place] PAIN LEVEL 1-3 OR FEVER Last administered on 12/25/16 01:06; Admin Dose 650 MG; Start 12/23/16 at 16:30 Morphine Sulfate (morphine) 2 mg Q4H PRN IV PAIN LEVEL 7-10; Start 12/23/16 at 16:30 Lorazepam (Ativan) 1 mg Q2H PRN IV ANXIETY Last administered on 12/28/16 12:08 ; Admin Dose 1 MG; Start 12/23/16 at 16:30 Bisacodyl (Dulcolax) 5 mg DAILY PRN PO CONSTIPATION; Start 12/23/16 at 16:30 Pantoprazole (Protonix Iv) 40 mg DAILY@06 IV Last administered on 12/28/16 06: 02; Admin Dose 40 MG; Start 12/24/16 at 06:00 Oseltamivir Phosphate 75 mg 75 mg Q12 PO Last administered on 12/28/16 08:53; Admin Dose 75 MG; Start 12/23/16 at 21:00; Stop 12/28/16 at 21:00 Propofol 100 ml @ 2.346 mls/ hr Q12H IV Last administered on 12/28/16 11:19; Admin Dose 23.46 MLS/HR; Start 12/23/16 at 22:00 Levofloxacin/ Dextrose 100 ml @ 50 mls/hr Q48H IVPB Last administered on 09:06; Admin Dose 50 MLS/HR; Start 12/26/16 at 09:00 Vancomycin HCl/ Sodium Chloride (Vancocin/NS) 150 ml @ 75 mls/hr Q24H IVPB Last administered on 12/28/16 11:57; Admin Dose 75 MLS/HR; Start 12/26/16 at 12: 00 Vancomycin HCl PER PHARMACY DOSING NOTE XX ; Start 12/26/16 at 11:00 Potassium Chloride 10 meq/ Dextrose 1,005 ml @ 70 mls/hr [id number] IV Last administered on 12/28/16 03:37; Admin Dose 70 MLS/HR; Start 12/27/16 at 09:00 Meropenem 100 ml @ 200 mls/hr Q12 IVPB Last administered on 12/28/16 08:54; Admin Dose 200 MLS/HR; Start 12/27/16 at 14:00 Fluconazole/ Sodium Chloride (Diflucan 100 Mg/ NS (Pmx)) 50 ml @ 50 mls/hr Q24H IVPB Last administered on 12/28/16 14:27; Admin Dose 50 MLS/HR; Start at 13:00 SHADE HOGAN NP Dec 28, 2016 15:06
--- NOTE | 2016-12-28 16:31 | CONS ---
Date/Time of Note Date/Time of Note DATE: 12/28/16 TIME: 16:26 Consult Date/Type/Reason Admit Date/Time Dec 23, 2016 at 15:37 Initial Consult Date 12/24/16 Type of Consultation: Pulm Ordering Provider: BEN COURTNEY MD Subjective On vent; sedated on propofol gtt. Objective Vital Signs Date Time Temp Pulse Resp B/P Pulse Ox O2 Delivery O2 Flow Rate FiO2 12/28/16 13:00 73 12/28/16 12:00 98.2 22 114/58 100 Mechanical Ventilator 12/28/16 11:10 40 Intake and Output 12/27/16 12/27/16 12/28/16 15:00 23:00 07:00 Intake Total 300 ml 946 ml 1869 ml Output Total 570 ml 395 ml 455 ml Balance -270 ml 551 ml 1414 ml HEENT: Neck supple; no JVD; no LAD CVS: RRR, S1 and S2 CHEST: Clear ABD: Soft, NT, + BS EXT: No c/c/e Results/Medications Result Diagram: 12/28/16 1004 12/28/16 1004 Results 24 hrs Laboratory Tests Test 12/28/16 10:04 12/28/16 12:34 Alanine Aminotransferase (ALT/SGPT) 25 Albumin 2.6 L Albumin/Globulin Ratio 0.52 Alkaline Phosphatase 86 Anion Gap 17 H Aspartate Amino Transf (AST/SGOT) 44 Basophils % 0.0 Blood Urea Nitrogen 34 H Calcium Level 7.6 L Carbon Dioxide Level 25 Chloride Level 113 H Creatinine 1.43 H Direct Bilirubin 0.00 Eosinophils % 0.0 Globulin 5.00 H Glucose Level 87 Hematocrit 24.3 L Hemoglobin 8.1 L Indirect Bilirubin 0.1 Lymphocytes % 47.0 Mean Corpuscular Hemoglobin 28.6 L Mean Corpuscular Hemoglobin Concent 33.3 Mean Corpuscular Volume 85.8 Mean Platelet Volume 8.2 # Monocytes % 39.0 H Neutrophils % 13.0 L Nucleated Red Blood Cells % 0.0 Platelet Count 43 #L Potassium Level 3.7 Red Blood Count 2.83 L Red Cell Distribution Width 19.7 H Sodium Level 151 H Total Bilirubin 0.1 L Total Protein 7.6 White Blood Count 8.7 # Lab Scanned Report REFERENCE LAB Medications Current Medications Ondansetron HCl (Zofran Inj) 4 mg Q6H PRN IV NAUSEA AND/OR VOMITING; Start 12/23 at 16:30 Nitroglycerin (Nitroglycerin (Sl Tab) 0.4 Mg) 1 tab Q5M PRN SL CHEST PAIN; Start 12/23/16 at 16:30 Acetaminophen (Tylenol Supp) 650 mg Q4H PRN [place] PAIN LEVEL 1-3 OR FEVER Last administered on 12/25/16 01:06; Admin Dose 650 MG; Start 12/23/16 at 16:30 Morphine Sulfate (morphine) 2 mg Q4H PRN IV PAIN LEVEL 7-10; Start 12/23/16 at 16:30 Lorazepam (Ativan) 1 mg Q2H PRN IV ANXIETY Last administered on 12/28/16 12:08 ; Admin Dose 1 MG; Start 12/23/16 at 16:30 Bisacodyl (Dulcolax) 5 mg DAILY PRN PO CONSTIPATION; Start 12/23/16 at 16:30 Pantoprazole (Protonix Iv) 40 mg DAILY@06 IV Last administered on 12/28/16 06: 02; Admin Dose 40 MG; Start 12/24/16 at 06:00 Oseltamivir Phosphate 75 mg 75 mg Q12 PO Last administered on 12/28/16 08:53; Admin Dose 75 MG; Start 12/23/16 at 21:00; Stop 12/28/16 at 21:00 Propofol 100 ml @ 2.346 mls/ hr Q12H IV Last administered on 12/28/16 16:03; Admin Dose 23.46 MLS/HR; Start 12/23/16 at 22:00 Levofloxacin/ Dextrose 100 ml @ 50 mls/hr Q48H IVPB Last administered on 09:06; Admin Dose 50 MLS/HR; Start 12/26/16 at 09:00 Vancomycin HCl/ Sodium Chloride (Vancocin/NS) 150 ml @ 75 mls/hr Q24H IVPB Last administered on 12/28/16 11:57; Admin Dose 75 MLS/HR; Start 12/26/16 at 12: 00 Vancomycin HCl PER PHARMACY DOSING NOTE XX ; Start 12/26/16 at 11:00 Potassium Chloride 10 meq/ Dextrose 1,005 ml @ 70 mls/hr [id number] IV Last administered on 12/28/16 03:37; Admin Dose 70 MLS/HR; Start 12/27/16 at 09:00 Meropenem 100 ml @ 200 mls/hr Q12 IVPB Last administered on 12/28/16 08:54; Admin Dose 200 MLS/HR; Start 12/27/16 at 14:00 Fluconazole/ Sodium Chloride (Diflucan 100 Mg/ NS (Pmx)) 50 ml @ 50 mls/hr Q24H IVPB Last administered on 12/28/16 14:27; Admin Dose 50 MLS/HR; Start at 13:00 Assessment/Plan Additional Assessment/Plan IMP: 1. Multifocal pneumonia--flu A+ as well as multifocal pneumonia 2. Vent Dependent Resp Failure 3. MDS 4. ARF 5. Thrombocytopenia 6. Anemia RECS: 1. Vent support 2. Abx 3. Transfuse for Plat < 10; unless actively bleeding 4. Palliative care consult as this likely represents this patient's terminal event 35 min cc time NILO NASSAR MD Dec 28, 2016 16:30
[2016-12-29] VITALS (63 sets, daily range): BP systolic 87–150; BP diastolic 52–70; PULSE 0–94; RESP 18–28
[2016-12-29] MEDS: IPRATROPIUM (HFA) 12.9 GM INHALER INH SCH ×6 (00:03→20:45)
[2016-12-29] MEDS: ALBUTEROL HFA 8 GM INHALER INH SCH ×6 (00:03→20:45)
[2016-12-29] MEDS: POTASSIUM CHLORIDE 10 MEQ in DEXTROSE 5% 1,000 ML IV SCH ×2 (01:48→17:40)
[2016-12-29] MEDS: LORAZEPAM 2 MG INJ IV PRN ×2 (03:41→13:48)
[2016-12-29] MEDS: PROPOFOL 100 ML IV SCH ×5 (03:41→22:02)
[2016-12-29 05:26] LABS: HEMATOCRIT 25.1 % (42.0-52.0); HEMOGLOBIN 8.3 g/dl (14.0-18.0); MEAN CORPUSCULAR HEMOGLOBIN 28.1 pg (29.0-33.0); MEAN CORPUSCULAR HGB CONC 32.9 g/dl (32.0-37.0); MEAN CORPUSCULAR VOLUME 85.3 fl (82.0-101.0); RED BLOOD COUNT 2.94 10^6/ul (4.70-6.10); RED CELL DISTRIBUTION WIDTH 19.7 % (11.5-14.5); UNCORRECTED WBC 8.3 10^3/ul (4.8-10.8); WHITE BLOOD COUNT 8.3 10^3/ul (4.8-10.8)
[2016-12-29 05:32] LABS: ALBUMIN 2.6 g/dl (3.3-4.9); POTASSIUM 3.5 mmol/L (3.5-5.1)
[2016-12-29 05:34] LABS: BILIRUBIN,INDIRECT 0.2 mg/dl (0-1.1); BILIRUBIN,TOTAL 0.2 mg/dl (0.2-1.3); CREATININE 1.4 mg/dl (0.61-1.24)
[2016-12-29 05:35] LABS: ALBUMIN/GLOBULIN RATIO 0.5; CALCIUM 7.5 mg/dl (8.4-10.2); TOTAL PROTEIN 7.7 g/dl (6.1-8.1)
[2016-12-29 05:55] LABS: CONDITION 1; LH ANALYZER COMMENTS 1; MEAN PLATELET VOLUME 8.7 fl (7.4-10.4); SUSPECT 1
[2016-12-29 05:57] LABS: PLATELET COUNT 18 10^3/UL (140-440)
[2016-12-29] MEDS: PANTOPRAZOLE 40 MG INJ IV SCH (06:34)
--- NOTE | 2016-12-29 07:53 | PN ---
DATE: 12/27/2016 PALLIATIVE CARE PROGRESS NOTE SUBJECTIVE: This is a postdated note on this gentleman who remains in the intensive care unit criti ofelia ill. There has been no major change in his physiological course. He requires transfusions of blood products on a daily basis. He is still hemodynamically compromised requiring pressor support , intubated, severe fluid and electrolyte abnormalities, and septic. He has been seen by Dr. Julian wells, Dr. Kovacs, ____, Dr. Mcgregor, Dr. Doyle, and ID consultation, Dr. Vivar. The family members are not at the bedside. OBJECTIVE: VITAL SIGNS: Blood pressure 114/58, pulse of 78 and regular, respirations of 22, temperature 98.2 d egrees, 100% saturation on 40% FIO2. CHEST: Shows bilateral distant breath sounds throughout both lung masters. COR: S1, S2, without S3, S4, murmur, gallop, rub. Normal rate, normal rhythm. ABDOMEN: Grossly benign. LABORATORY DATA: White blood cell count 11.6, hemoglobin 8.7, hematocrit 27.3, platelet count of 16 ,000. Chemistries: Serum sodium 151, potassium 3.7, chloride 113, bicarbonate of 25, BUN of 34, cr eatinine 1.43. ASSESSMENT AND PLAN: I have scheduled a family conference with both sons and any other family membe rs who choose to be in attendance on 12/28/2016. Family members, of course, will need a great deal of support. I will talk with them about prognosis, ongoing treatment course. Followup will be done post note tomorrow. Dictated By: JUSTIN DANIELS MD, LP/RADHA Conf#: [id number] DID#: [id number]
[2016-12-29] MEDS: MEROPENEM 500 MG/100 ML (PMX) 100 ML IVPB SCH ×2 (08:31→21:02)
[2016-12-29] MEDS: morphine 2 MG INJ IV PRN (08:32)
--- NOTE | 2016-12-29 08:56 | PN ---
Date/Time of Note Date/Time of Note DATE: 12/29/16 TIME: 08:51 Assessment/Plan VTE Prophylaxis VTE Prophylaxis Intervention: contraindicated VTE Contraindication Reason: thrombocytopenia Lines/Catheters IV Catheter Type (from Nrsg): Peripheral IV Urinary Cath still in place: Yes Reason Cath still needed: terminal illness/intractable pain Assessment/Plan Assessment/Plan 71 yo male with a past medical history of CML on chemotherapy, MDS, GERD, COPD, Anemia of chronic disease, who presents with acute shortness of breath for the last four days. 1. Sepsis 2/2 to Influenza Pneumonia - consult to ID placed, IV antibiotics - resume HCAP,on tamiflu - cefepime --> meropenem for thrombocytopenia - resolving 2. Acute hypoxemic respiratory failure - s/p intubation - severe acidosis - improving - appreciate pulm recs - wean as tolerated - improving ABG 3. Severe thrombocytopenia - replete - recheck - replete today - check DIC panel - medication induced?- replete if < 20K - check HIT antibodies, awaiting labs - replete as per hem/onc 4. Acute on chronic renal failure - 2/2 to sepsis - IVF - renally adjust medications, avoid nephrotoxins, worsening, appreciate renal consult 5. Anemia - of chronic disease - CA - will transfuse 2 units PRBCS, check serial H/H q6h - transfuse as per hem/onc, repeat transfusion, add ferrilicit 6. CML/MDS on chemo - continue with hem/onc recs 7. CHF with diastolic heart failure - consult cardiology, type II NSTEMI ? - demand ischemia, recent ECHO EF 45%, diastolic dysfunction 8. COPD - see #1 9. GERD - continue with IV protonix 10. Smoking abuse - advised patient on cessation 11. Hypernatremia - dehydration vs volume depletion vs other - continue with free water and D5W - as per nephro - improving 12. GI ppx - protonix 13. DVT ppx - contraindicated for anticoagulation - monitor acute changes dispo - f/u recs, monitor changes, prognosis is guarded/poor - f/u palliative care consult - if no improvement, code status needs to be reassessed - HIT antibodies, labs this critical care note took greater than 35 min to complete Subjective 24 Hr Interval Summary Free Text/Dictation Patient had no overnight events. no fevers or chills. spoke to the nurse about the care plan. 15 minutes spent. Exam/Review of Systems Vital Signs Vitals Vital Signs Date Time Temp Pulse Resp B/P Pulse Ox O2 Delivery O2 Flow Rate FiO2 12/29/16 08:28 73 12/29/16 08:00 40 12/29/16 06:30 22 112/53 100 Mechanical Ventilator 12/29/16 04:00 98.9 Intake and Output 12/28/16 12/28/16 12/29/16 14:59 22:59 06:59 Intake Total 250 ml 862 ml 1333 ml Output Total 605 ml 635 ml 640 ml Balance -355 ml 227 ml 693 ml Exam Gen [place]: intubated/sedated HEENT: NC/AT, PERRLA, ETT NECK: supple, no thyromegaly THORAX: symmetrical, no obvious deformities CV: S1S2, tachycardiac, no M/G/R Lungs: coarse breath sounds throughout all lung masters, diminished at the bases , with end expiratory wheezing - present Abd: soft, NT/ND, +BS, no rebound, no guarding, neg HSM, scaphoid EXT: 1+ edema, no ecchymosis, no clubbing, FROM, muscle wasting noted Neuro: intubated/sedated Psych: cannot assess Skin: scattered petechiae Results Result Diagram: 12/29/1644912/29/16 045 Results 24 hrs Laboratory Tests Test 12/28/16 10:04 12/28/16 12:34 12/29/16 04:50 Alanine Aminotransferase (ALT/SGPT) 25 21 Albumin 2.6 L 2.6 L Albumin/Globulin Ratio 0.52 0.50 Alkaline Phosphatase 86 87 Anion Gap 17 H 17 H Aspartate Amino Transf (AST/SGOT) 44 42 Basophils % 0.0 Blood Urea Nitrogen 34 H 27 H Calcium Level 7.6 L 7.5 L Carbon Dioxide Level 25 24 Chloride Level 113 H 110 Creatinine 1.43 H 1.40 H Direct Bilirubin 0.00 0.00 Eosinophils % 0.0 Globulin 5.00 H 5.10 H Glucose Level 87 84 Hematocrit 24.3 L 25.1 L Hemoglobin 8.1 L 8.3 L Indirect Bilirubin 0.1 0.2 Lymphocytes % 47.0 Mean Corpuscular Hemoglobin 28.6 L 28.1 L Mean Corpuscular Hemoglobin Concent 33.3 32.9 Mean Corpuscular Volume 85.8 85.3 Mean Platelet Volume 8.2 # 8.7 Monocytes % 39.0 H Neutrophils % 13.0 L Nucleated Red Blood Cells % 0.0 Platelet Count 43 #L 18 #*L Potassium Level 3.7 3.5 Red Blood Count 2.83 L 2.94 L Red Cell Distribution Width 19.7 H 19.7 H Sodium Level 151 H 147 H Total Bilirubin 0.1 L 0.2 Total Protein 7.6 7.7 White Blood Count 8.7 # 8.3 Lab Scanned Report REFERENCE LAB Basophils # Blood Morphology Comment Eosinophils # Lymphocytes # Monocytes # Neutrophils # Nucleated Red Blood Cells # Medications Medications Current Medications Ondansetron HCl (Zofran Inj) 4 mg Q6H PRN IV NAUSEA AND/OR VOMITING; Start 12/23 at 16:30 Nitroglycerin (Nitroglycerin (Sl Tab) 0.4 Mg) 1 tab Q5M PRN SL CHEST PAIN; Start 12/23/16 at 16:30 Acetaminophen (Tylenol Supp) 650 mg Q4H PRN [place] PAIN LEVEL 1-3 OR FEVER Last administered on 12/25/16 01:06; Admin Dose 650 MG; Start 12/23/16 at 16:30 Morphine Sulfate (morphine) 2 mg Q4H PRN IV PAIN LEVEL 7-10 Last administered on 12/29/16 08:32; Admin Dose 2 MG; Start 12/23/16 at 16:30 Lorazepam (Ativan) 1 mg Q2H PRN IV ANXIETY Last administered on 12/29/16 03:41 ; Admin Dose 1 MG; Start 12/23/16 at 16:30 Bisacodyl (Dulcolax) 5 mg DAILY PRN PO CONSTIPATION; Start 12/23/16 at 16:30 Pantoprazole (Protonix Iv) 40 mg DAILY@06 IV Last administered on 12/29/16 06: 34; Admin Dose 40 MG; Start 12/24/16 at 06:00 Oseltamivir Phosphate 75 mg 75 mg Q12 PO Last administered on 12/28/16 20:42; Admin Dose 75 MG; Start 12/23/16 at 21:00; Stop 12/28/16 at 21:00 Propofol 100 ml @ 2.346 mls/ hr Q12H IV Last administered on 12/29/16 08:31; Admin Dose 23.46 MLS/HR; Start 12/23/16 at 22:00 Levofloxacin/ Dextrose 100 ml @ 50 mls/hr Q48H IVPB Last administered on 09:06; Admin Dose 50 MLS/HR; Start 12/26/16 at 09:00 Vancomycin HCl/ Sodium Chloride (Vancocin/NS) 150 ml @ 75 mls/hr Q24H IVPB Last administered on 12/28/16 11:57; Admin Dose 75 MLS/HR; Start 12/26/16 at 12: 00 Vancomycin HCl PER PHARMACY DOSING NOTE XX ; Start 12/26/16 at 11:00 Potassium Chloride 10 meq/ Dextrose 1,005 ml @ 70 mls/hr [id number] IV Last administered on 12/29/16 01:48; Admin Dose 70 MLS/HR; Start 12/27/16 at 09:00 Meropenem 100 ml @ 200 mls/hr Q12 IVPB Last administered on 12/29/16 08:31; Admin Dose 200 MLS/HR; Start 12/27/16 at 14:00 Fluconazole/ Sodium Chloride (Diflucan 100 Mg/ NS (Pmx)) 50 ml @ 50 mls/hr Q24H IVPB Last administered on 12/28/16 14:27; Admin Dose 50 MLS/HR; Start at 13:00 HUMA THAKKAR MD Dec 29, 2016 08:55
[2016-12-29 09:21] LABS: ANISOCYTOSIS 2+; EOSINOPHILS # 0.2 10^3/ul (0.0-0.5); HYPOCHROMASIA 1+; LYMPHOCYTES # 3.5 10^3/ul (0.8-2.9); MONOCYTE # 3.4 10^3/ul (0.3-0.9); NEUTROPHIL # 1.2 10^3/ul (1.6-7.5)
[2016-12-29 09:22] LABS: PLATELET ESTIMATE PLT APPEAR DECREASED
--- NOTE | 2016-12-29 10:41 | CONS ---
Date/Time of Note Date/Time of Note DATE: 12/29/16 TIME: 10:39 Assessment/Plan Assessment/Plan Additional Assessment/Plan 1. Acute kidney injury, likely secondary to acute tubular necrosis in the setting of sepsis. 2. Acute hypoxemic respiratory failure, multifactorial, secondary to sepsis and secondary to pulmonary condition. 3. Acute pulmonary edema with influenza pneumonia. 4. History of congestive heart failure with diastolic heart failure. 5. History of chronic obstructive pulmonary disease. 6. History of gastroesophageal reflux disease. 7. History of smoking. 8. 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 PLAN: pt remains intubated, BUN/Cr and Na slightly improving , continue D5W wiht KCl and Free water IV abx as per ID pt has poor prognosis due to CML consider palliative care consult will follow up K replacement this critical care note took greater than 45 min to complete Consultation Date/Type/Reason Admit Date/Time Dec 23, 2016 at 15:37 Initial Consult Date 12/23/16 Type of Consultation: NEPHROLOGY Referring Provider: BEN COURTNEY MD 24 HR Interval Summary Free Text/Dictation remains critically ill, BUn/Cr slightly improved, Na improved with D5W and Free water Exam/Review of Systems Vital Signs Vitals Vital Signs Date Time Temp Pulse Resp B/P Pulse Ox O2 Delivery O2 Flow Rate FiO2 12/29/16 08:28 73 12/29/16 08:00 40 12/29/16 06:30 22 112/53 100 Mechanical Ventilator 12/29/16 04:00 98.9 Intake and Output 12/28/16 12/28/16 12/29/16 15:00 23:00 07:00 Intake Total 250 ml 1080 ml 1115 ml Output Total 635 ml 685 ml 560 ml Balance -385 ml 395 ml 555 ml Exam Gen [place]: intubated/sedated CV: S1S2, tachycardiac, no M/G/R Lungs: coarse breath sounds throughout all lung masters, diminished at the bases , with end expiratory wheezing, improving daily Abd: soft, NT/ND, +BS, no rebound, no guarding, neg HSM, scaphoid EXT: 1+ edema, no ecchymosis, no clubbing, FROM, muscle wasting noted Neuro: intubated/sedated Skin: scattered petechiae Results Result Diagram: 12/29/16 04512/29/16 0450 Results 24 hrs Laboratory Tests Test 12/28/16 12:34 12/29/16 04:50 Lab Scanned Report REFERENCE LAB Alanine Aminotransferase (ALT/SGPT) 21 Albumin 2.6 L Albumin/Globulin Ratio 0.50 Alkaline Phosphatase 87 Anion Gap 17 H Anisocytosis 2+ Aspartate Amino Transf (AST/SGOT) 42 Basophils # Basophils % Blood Morphology Comment Blood Urea Nitrogen 27 H Calcium Level 7.5 L Carbon Dioxide Level 24 Chloride Level 110 Creatinine 1.40 H Differential Comment MANUAL DIFF Direct Bilirubin 0.00 Eosinophils # 0.2 Eosinophils % 2.0 Globulin 5.10 H Glucose Level 84 Hematocrit 25.1 L Hemoglobin 8.3 L Hypochromasia 1+ Indirect Bilirubin 0.2 Lymphocytes # 3.5 H Lymphocytes % 42.0 Mean Corpuscular Hemoglobin 28.1 L Mean Corpuscular Hemoglobin Concent 32.9 Mean Corpuscular Volume 85.3 Mean Platelet Volume 8.7 Monocytes # 3.4 H Monocytes % 41.0 H Neutrophils # 1.2 L Neutrophils % 15.0 L Nucleated Red Blood Cells # Nucleated Red Blood Cells % Platelet Count 18 #*L Platelet Estimate PLT APPEAR DECREASED Potassium Level 3.5 Red Blood Count 2.94 L Red Cell Distribution Width 19.7 H Sodium Level 147 H Total Bilirubin 0.2 Total Protein 7.7 White Blood Count 8.3 Medications Medications Current Medications Ondansetron HCl (Zofran Inj) 4 mg Q6H PRN IV NAUSEA AND/OR VOMITING; Start 12/23 at 16:30 Nitroglycerin (Nitroglycerin (Sl Tab) 0.4 Mg) 1 tab Q5M PRN SL CHEST PAIN; Start 12/23/16 at 16:30 Acetaminophen (Tylenol Supp) 650 mg Q4H PRN [place] PAIN LEVEL 1-3 OR FEVER Last administered on 12/25/16 01:06; Admin Dose 650 MG; Start 12/23/16 at 16:30 Morphine Sulfate (morphine) 2 mg Q4H PRN IV PAIN LEVEL 7-10 Last administered on 12/29/16 08:32; Admin Dose 2 MG; Start 12/23/16 at 16:30 Lorazepam (Ativan) 1 mg Q2H PRN IV ANXIETY Last administered on 12/29/16 03:41 ; Admin Dose 1 MG; Start 12/23/16 at 16:30 Bisacodyl (Dulcolax) 5 mg DAILY PRN PO CONSTIPATION; Start 12/23/16 at 16:30 Pantoprazole (Protonix Iv) 40 mg DAILY@06 IV Last administered on 12/29/16 06: 34; Admin Dose 40 MG; Start 12/24/16 at 06:00 Oseltamivir Phosphate 75 mg 75 mg Q12 PO Last administered on 12/28/16 20:42; Admin Dose 75 MG; Start 12/23/16 at 21:00; Stop 12/28/16 at 21:00 Propofol 100 ml @ 2.346 mls/ hr Q12H IV Last administered on 12/29/16 08:31; Admin Dose 23.46 MLS/HR; Start 12/23/16 at 22:00 Levofloxacin/ Dextrose 100 ml @ 50 mls/hr Q48H IVPB Last administered on 09:06; Admin Dose 50 MLS/HR; Start 12/26/16 at 09:00 Vancomycin HCl/ Sodium Chloride (Vancocin/NS) 150 ml @ 75 mls/hr Q24H IVPB Last administered on 12/28/16 11:57; Admin Dose 75 MLS/HR; Start 12/26/16 at 12: 00 Vancomycin HCl PER PHARMACY DOSING NOTE XX ; Start 12/26/16 at 11:00 Potassium Chloride 10 meq/ Dextrose 1,005 ml @ 70 mls/hr [id number] IV Last administered on 12/29/16 01:48; Admin Dose 70 MLS/HR; Start 12/27/16 at 09:00 Meropenem 100 ml @ 200 mls/hr Q12 IVPB Last administered on 12/29/16 08:31; Admin Dose 200 MLS/HR; Start 12/27/16 at 14:00 Fluconazole/ Sodium Chloride (Diflucan 100 Mg/ NS (Pmx)) 50 ml @ 50 mls/hr Q24H IVPB Last administered on 12/28/16 14:27; Admin Dose 50 MLS/HR; Start at 13:00 GILL PEREIRA MD Dec 29, 2016 10:41
--- NOTE | 2016-12-29 11:35 | CONS ---
Date/Time of Note Date/Time of Note DATE: 12/29/16 TIME: 11:33 Assessment/Plan Assessment/Plan Chief Complaint/Hosp Course ID PROGRESS NOTE * Multiple co-morbidities w/poor prognosis per hx of CML, family meeting to discuss code status pending per notes SUBJECTIVE: ETT, NGT, noncommunicative, VSS, restless requires sedation MICROBIOLOGY: Influenza swab came back positive for influenza A. Blood culture had been negative. INDWELLINGS: Endotracheal tube, NG tube, Leyva, PICC line. ANTIMICROBIALS: 1. Vancomycin. 2. Meropenem (s/p Cefepime) 3. Levaquin. 4. Tamiflu. PHYSICAL EXAMINATION: GENERAL: Chronically ill-appearing, elderly man who is lying comfortably in bed. HEENT: NGT secure, ETT secure to Vent NECK: Supple. CHEST: Rise symmetrical. Breath sounds diminished at the bases with scattered rhonchi. HEART: S1, S2. ABDOMEN: Soft. Bowel tones hypoactive. EXTREMITIES: Without cyanosis. ASSESSMENT: 1. Severe sepsis. 2. Influenza A virus with superimposed healthcare-associated pneumonia, possibly aspiration. 3. Acute renal failure. 4. Anemia with progressive thrombocytopenia. 5. CML, myelodysplasia, on chemotherapy followed by Dr. Pryor in oncology consultation. 6. Acute renal failure. PLAN: ABX adjusted yesterday Mela changed Cefepime to Merrem for concern thrombocytopenia Continue current ABX, non-aggressive medical care Poor prognosis considering dx CML, ABX risk with ongoing thrombocytopenia . . Problems: Consultation Date/Type/Reason Admit Date/Time Dec 23, 2016 at 15:37 Initial Consult Date 12/24/16 Type of Consultation: ID Referring Provider: BEN COURTNEY MD Exam/Review of Systems Vital Signs Vitals Vital Signs Date Time Temp Pulse Resp B/P Pulse Ox O2 Delivery O2 Flow Rate FiO2 12/29/16 08:28 73 12/29/16 08:00 40 12/29/16 06:30 22 112/53 100 Mechanical Ventilator 12/29/16 04:00 98.9 Intake and Output 12/28/16 12/28/16 12/29/16 15:00 23:00 07:00 Intake Total 250 ml 1080 ml 1115 ml Output Total 635 ml 685 ml 560 ml Balance -385 ml 395 ml 555 ml Results Result Diagram: 12/29/16 0450 12/29/16 0450 Results 24 hrs Laboratory Tests Test 12/28/16 12:34 12/29/16 04:50 Lab Scanned Report REFERENCE LAB Alanine Aminotransferase (ALT/SGPT) 21 Albumin 2.6 L Albumin/Globulin Ratio 0.50 Alkaline Phosphatase 87 Anion Gap 17 H Anisocytosis 2+ Aspartate Amino Transf (AST/SGOT) 42 Basophils # Basophils % Blood Morphology Comment Blood Urea Nitrogen 27 H Calcium Level 7.5 L Carbon Dioxide Level 24 Chloride Level 110 Creatinine 1.40 H Differential Comment MANUAL DIFF Direct Bilirubin 0.00 Eosinophils # 0.2 Eosinophils % 2.0 Globulin 5.10 H Glucose Level 84 Hematocrit 25.1 L Hemoglobin 8.3 L Hypochromasia 1+ Indirect Bilirubin 0.2 Lymphocytes # 3.5 H Lymphocytes % 42.0 Mean Corpuscular Hemoglobin 28.1 L Mean Corpuscular Hemoglobin Concent 32.9 Mean Corpuscular Volume 85.3 Mean Platelet Volume 8.7 Monocytes # 3.4 H Monocytes % 41.0 H Neutrophils # 1.2 L Neutrophils % 15.0 L Nucleated Red Blood Cells # Nucleated Red Blood Cells % Platelet Count 18 #*L Platelet Estimate PLT APPEAR DECREASED Potassium Level 3.5 Red Blood Count 2.94 L Red Cell Distribution Width 19.7 H Sodium Level 147 H Total Bilirubin 0.2 Total Protein 7.7 White Blood Count 8.3 Medications Medications Current Medications Ondansetron HCl (Zofran Inj) 4 mg Q6H PRN IV NAUSEA AND/OR VOMITING; Start 12/23 at 16:30 Nitroglycerin (Nitroglycerin (Sl Tab) 0.4 Mg) 1 tab Q5M PRN SL CHEST PAIN; Start 12/23/16 at 16:30 Acetaminophen (Tylenol Supp) 650 mg Q4H PRN [place] PAIN LEVEL 1-3 OR FEVER Last administered on 12/25/16 01:06; Admin Dose 650 MG; Start 12/23/16 at 16:30 Morphine Sulfate (morphine) 2 mg Q4H PRN IV PAIN LEVEL 7-10 Last administered on 12/29/16 08:32; Admin Dose 2 MG; Start 12/23/16 at 16:30 Lorazepam (Ativan) 1 mg Q2H PRN IV ANXIETY Last administered on 12/29/16 03:41 ; Admin Dose 1 MG; Start 12/23/16 at 16:30 Bisacodyl (Dulcolax) 5 mg DAILY PRN PO CONSTIPATION; Start 12/23/16 at 16:30 Pantoprazole (Protonix Iv) 40 mg DAILY@06 IV Last administered on 12/29/16 06: 34; Admin Dose 40 MG; Start 12/24/16 at 06:00 Oseltamivir Phosphate 75 mg 75 mg Q12 PO Last administered on 12/28/16 20:42; Admin Dose 75 MG; Start 12/23/16 at 21:00; Stop 12/28/16 at 21:00 Propofol 100 ml @ 2.346 mls/ hr Q12H IV Last administered on 12/29/16 08:31; Admin Dose 23.46 MLS/HR; Start 12/23/16 at 22:00 Levofloxacin/ Dextrose 100 ml @ 50 mls/hr Q48H IVPB Last administered on 09:06; Admin Dose 50 MLS/HR; Start 12/26/16 at 09:00 Vancomycin HCl/ Sodium Chloride (Vancocin/NS) 150 ml @ 75 mls/hr Q24H IVPB Last administered on 12/28/16 11:57; Admin Dose 75 MLS/HR; Start 12/26/16 at 12: 00 Vancomycin HCl PER PHARMACY DOSING NOTE XX ; Start 12/26/16 at 11:00 Potassium Chloride 10 meq/ Dextrose 1,005 ml @ 70 mls/hr [id number] IV Last administered on 12/29/16 01:48; Admin Dose 70 MLS/HR; Start 12/27/16 at 09:00 Meropenem 100 ml @ 200 mls/hr Q12 IVPB Last administered on 12/29/16 08:31; Admin Dose 200 MLS/HR; Start 12/27/16 at 14:00 Fluconazole/ Sodium Chloride (Diflucan 100 Mg/ NS (Pmx)) 50 ml @ 50 mls/hr Q24H IVPB Last administered on 12/28/16 14:27; Admin Dose 50 MLS/HR; Start at 13:00 SHADE HOGAN NP Dec 29, 2016 11:35
[2016-12-29] MEDS: VANCOMYCIN 750 MG in SOD CHLORIDE 0.9% 150 ML IVPB SCH (12:01)
--- NOTE | 2016-12-29 12:30 | CONS ---
Date/Time of Note Date/Time of Note DATE: 12/29/16 TIME: 12:28 Assessment/Plan Assessment/Plan Chief Complaint/Hosp Course IMPRESSION: 1. 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 Cardiomyopathy with decreased left ventricular ejection fraction, last being approximately 45% to 50% by echo 11/2016. 3. Hypotension, borderline. 4. Influenza positive. 5. History of chronic myelogenous leukemia. 6. Renal failure-slowly improving. 7. Thrombocytopenia, severe. 8. Anemia. 9. Leukocytosis. Recc: -Tele -serial ecg's -Continue abx's and f/u cx data -Follow volume status closely -continue tamiflu -Wean vent as tolerated Problems: Consultation Date/Type/Reason Admit Date/Time Dec 23, 2016 at 15:37 Initial Consult Date 12/24/16 Type of Consultation: Cardiology Reason for Consultation Cardiomyopathy Referring Provider: BEN COURTNEY MD Exam/Review of Systems Vital Signs Vitals Vital Signs Date Time Temp Pulse Resp B/P Pulse Ox O2 Delivery O2 Flow Rate FiO2 12/29/16 12:16 73 12/29/16 11:10 25 100 40 12/29/16 06:30 112/53 Mechanical Ventilator 12/29/16 04:00 98.9 Intake and Output 12/28/16 12/28/16 12/29/16 15:00 23:00 07:00 Intake Total 250 ml 1080 ml 1115 ml Output Total 635 ml 685 ml 560 ml Balance -385 ml 395 ml 555 ml Exam Review of Systems: CONSTITUTIONAL: No fevers, chills. PULMONARY: intubated CARDIOVASCULAR: No obvious chest pain/palpitations GASTROINTESTINAL: No nausea/vomiting. GENITOURINARY: No hematuria/dysuria. MUSCULOSKELETAL: No obvious myagias/arthalgias. PSYCHIATRIC: No documented depression. NEUROLOGIC: sedated Constitutional: other (sedated) Head: normocephalic ENMT: intubated Neck: jvd (9 cm water), supple Respiratory: diminished breath sounds (at bases/B) Cardiovascular: regular rate and rhythm Gastrointestinal: non-tender, soft Musculoskeletal: muscle tone (normal) Extremities: edema (trace/B) Neurological: other (sedated) Results Result Diagram: 12/29/160 12/29/16 045 Results 24 hrs Laboratory Tests Test 12/28/16 12:34 12/29/16 04:50 Lab Scanned Report REFERENCE LAB Alanine Aminotransferase (ALT/SGPT) 21 Albumin 2.6 L Albumin/Globulin Ratio 0.50 Alkaline Phosphatase 87 Anion Gap 17 H Anisocytosis 2+ Aspartate Amino Transf (AST/SGOT) 42 Basophils # Basophils % Blood Morphology Comment Blood Urea Nitrogen 27 H Calcium Level 7.5 L Carbon Dioxide Level 24 Chloride Level 110 Creatinine 1.40 H Differential Comment MANUAL DIFF Direct Bilirubin 0.00 Eosinophils # 0.2 Eosinophils % 2.0 Globulin 5.10 H Glucose Level 84 Hematocrit 25.1 L Hemoglobin 8.3 L Hypochromasia 1+ Indirect Bilirubin 0.2 Lymphocytes # 3.5 H Lymphocytes % 42.0 Mean Corpuscular Hemoglobin 28.1 L Mean Corpuscular Hemoglobin Concent 32.9 Mean Corpuscular Volume 85.3 Mean Platelet Volume 8.7 Monocytes # 3.4 H Monocytes % 41.0 H Neutrophils # 1.2 L Neutrophils % 15.0 L Nucleated Red Blood Cells # Nucleated Red Blood Cells % Platelet Count 18 #*L Platelet Estimate PLT APPEAR DECREASED Potassium Level 3.5 Red Blood Count 2.94 L Red Cell Distribution Width 19.7 H Sodium Level 147 H Total Bilirubin 0.2 Total Protein 7.7 White Blood Count 8.3 Medications Medications Current Medications Ondansetron HCl (Zofran Inj) 4 mg Q6H PRN IV NAUSEA AND/OR VOMITING; Start 12/23 at 16:30 Nitroglycerin (Nitroglycerin (Sl Tab) 0.4 Mg) 1 tab Q5M PRN SL CHEST PAIN; Start 12/23/16 at 16:30 Acetaminophen (Tylenol Supp) 650 mg Q4H PRN [place] PAIN LEVEL 1-3 OR FEVER Last administered on 12/25/16 01:06; Admin Dose 650 MG; Start 12/23/16 at 16:30 Morphine Sulfate (morphine) 2 mg Q4H PRN IV PAIN LEVEL 7-10 Last administered on 12/29/16 08:32; Admin Dose 2 MG; Start 12/23/16 at 16:30 Lorazepam (Ativan) 1 mg Q2H PRN IV ANXIETY Last administered on 12/29/16 03:41 ; Admin Dose 1 MG; Start 12/23/16 at 16:30 Bisacodyl (Dulcolax) 5 mg DAILY PRN PO CONSTIPATION; Start 12/23/16 at 16:30 Pantoprazole (Protonix Iv) 40 mg DAILY@06 IV Last administered on 12/29/16 06: 34; Admin Dose 40 MG; Start 12/24/16 at 06:00 Oseltamivir Phosphate 75 mg 75 mg Q12 PO Last administered on 12/28/16 20:42; Admin Dose 75 MG; Start 12/23/16 at 21:00; Stop 12/28/16 at 21:00 Propofol 100 ml @ 2.346 mls/ hr Q12H IV Last administered on 12/29/16 08:31; Admin Dose 23.46 MLS/HR; Start 12/23/16 at 22:00 Levofloxacin/ Dextrose 100 ml @ 50 mls/hr Q48H IVPB Last administered on 09:06; Admin Dose 50 MLS/HR; Start 12/26/16 at 09:00 Vancomycin HCl/ Sodium Chloride (Vancocin/NS) 150 ml @ 75 mls/hr Q24H IVPB Last administered on 12/29/16 12:01; Admin Dose 75 MLS/HR; Start 12/26/16 at 12: 00 Vancomycin HCl PER PHARMACY DOSING NOTE XX ; Start 12/26/16 at 11:00 Potassium Chloride 10 meq/ Dextrose 1,005 ml @ 70 mls/hr [id number] IV Last administered on 12/29/16 01:48; Admin Dose 70 MLS/HR; Start 12/27/16 at 09:00 Meropenem 100 ml @ 200 mls/hr Q12 IVPB Last administered on 12/29/16 08:31; Admin Dose 200 MLS/HR; Start 12/27/16 at 14:00 Fluconazole/ Sodium Chloride (Diflucan 100 Mg/ NS (Pmx)) 50 ml @ 50 mls/hr Q24H IVPB Last administered on 12/28/16 14:27; Admin Dose 50 MLS/HR; Start at 13:00 MILENA VELA Dec 29, 2016 12:30
[2016-12-29] MEDS ORDERED: FENTAnyl 50 MCG/ML VIAL ONE (13:36)
--- NOTE | 2016-12-29 13:39 | CONS ---
Date/Time of Note Date/Time of Note DATE: 12/29/16 TIME: 13:36 Consult Date/Type/Reason Admit Date/Time Dec 23, 2016 at 15:37 Initial Consult Date 12/24/16 Type of Consultation: Pulm Ordering Provider: BEN COURTNEY MD Subjective Patient just self-extubated. SpO2 98 on face mask. Increased work of breathing noted. Objective Vital Signs Date Time Temp Pulse Resp B/P Pulse Ox O2 Delivery O2 Flow Rate FiO2 12/29/16 12:16 73 12/29/16 11:10 25 100 40 12/29/16 06:30 112/53 Mechanical Ventilator 12/29/16 04:00 98.9 Intake and Output 12/28/16 12/28/16 12/29/16 15:00 23:00 07:00 Intake Total 250 ml 1080 ml 1115 ml Output Total 635 ml 685 ml 560 ml Balance -385 ml 395 ml 555 ml HEENT: Neck supple; no JVD; no LAD CVS: RRR, S1 and S2 CHEST: Coarse rhonchi b/l ABD: Soft, NT, + BS EXT: No c/c/e Results/Medications Result Diagram: 12/29/16 0450 12/29/16 0450 Results 24 hrs Laboratory Tests Test 12/29/16 04:50 Alanine Aminotransferase (ALT/SGPT) 21 Albumin 2.6 L Albumin/Globulin Ratio 0.50 Alkaline Phosphatase 87 Anion Gap 17 H Anisocytosis 2+ Aspartate Amino Transf (AST/SGOT) 42 Basophils # Basophils % Blood Morphology Comment Blood Urea Nitrogen 27 H Calcium Level 7.5 L Carbon Dioxide Level 24 Chloride Level 110 Creatinine 1.40 H Differential Comment MANUAL DIFF Direct Bilirubin 0.00 Eosinophils # 0.2 Eosinophils % 2.0 Globulin 5.10 H Glucose Level 84 Hematocrit 25.1 L Hemoglobin 8.3 L Hypochromasia 1+ Indirect Bilirubin 0.2 Lymphocytes # 3.5 H Lymphocytes % 42.0 Mean Corpuscular Hemoglobin 28.1 L Mean Corpuscular Hemoglobin Concent 32.9 Mean Corpuscular Volume 85.3 Mean Platelet Volume 8.7 Monocytes # 3.4 H Monocytes % 41.0 H Neutrophils # 1.2 L Neutrophils % 15.0 L Nucleated Red Blood Cells # Nucleated Red Blood Cells % Platelet Count 18 #*L Platelet Estimate PLT APPEAR DECREASED Potassium Level 3.5 Red Blood Count 2.94 L Red Cell Distribution Width 19.7 H Sodium Level 147 H Total Bilirubin 0.2 Total Protein 7.7 White Blood Count 8.3 Medications Current Medications Ondansetron HCl (Zofran Inj) 4 mg Q6H PRN IV NAUSEA AND/OR VOMITING; Start 12/23 at 16:30 Nitroglycerin (Nitroglycerin (Sl Tab) 0.4 Mg) 1 tab Q5M PRN SL CHEST PAIN; Start 12/23/16 at 16:30 Acetaminophen (Tylenol Supp) 650 mg Q4H PRN [place] PAIN LEVEL 1-3 OR FEVER Last administered on 12/25/16 01:06; Admin Dose 650 MG; Start 12/23/16 at 16:30 Morphine Sulfate (morphine) 2 mg Q4H PRN IV PAIN LEVEL 7-10 Last administered on 12/29/16 08:32; Admin Dose 2 MG; Start 12/23/16 at 16:30 Lorazepam (Ativan) 1 mg Q2H PRN IV ANXIETY Last administered on 12/29/16 03:41 ; Admin Dose 1 MG; Start 12/23/16 at 16:30 Bisacodyl (Dulcolax) 5 mg DAILY PRN PO CONSTIPATION; Start 12/23/16 at 16:30 Pantoprazole (Protonix Iv) 40 mg DAILY@06 IV Last administered on 12/29/16 06: 34; Admin Dose 40 MG; Start 12/24/16 at 06:00 Oseltamivir Phosphate 75 mg 75 mg Q12 PO Last administered on 12/28/16 20:42; Admin Dose 75 MG; Start 12/23/16 at 21:00; Stop 12/28/16 at 21:00 Propofol 100 ml @ 2.346 mls/ hr Q12H IV Last administered on 12/29/16 08:31; Admin Dose 23.46 MLS/HR; Start 12/23/16 at 22:00 Levofloxacin/ Dextrose 100 ml @ 50 mls/hr Q48H IVPB Last administered on 09:06; Admin Dose 50 MLS/HR; Start 12/26/16 at 09:00 Vancomycin HCl/ Sodium Chloride (Vancocin/NS) 150 ml @ 75 mls/hr Q24H IVPB Last administered on 12/29/16 12:01; Admin Dose 75 MLS/HR; Start 12/26/16 at 12: 00 Vancomycin HCl PER PHARMACY DOSING NOTE XX ; Start 12/26/16 at 11:00 Potassium Chloride 10 meq/ Dextrose 1,005 ml @ 70 mls/hr [id number] IV Last administered on 12/29/16 01:48; Admin Dose 70 MLS/HR; Start 12/27/16 at 09:00 Meropenem 100 ml @ 200 mls/hr Q12 IVPB Last administered on 12/29/16 08:31; Admin Dose 200 MLS/HR; Start 12/27/16 at 14:00 Fluconazole/ Sodium Chloride (Diflucan 100 Mg/ NS (Pmx)) 50 ml @ 50 mls/hr Q24H IVPB Last administered on 12/28/16 14:27; Admin Dose 50 MLS/HR; Start at 13:00 Miscellaneous Information (*Rx Drug Level Order Reminder*) VANCOMYCIN TROUGH AT 1100 ONCE ONCE XX ; Start 12/30/16 at 11:00; Stop 12/30/16 at 11:01 Assessment/Plan Additional Assessment/Plan IMP: 1. Multifocal pneumonia--flu A+ as well as multifocal pneumonia 2. Vent Dependent Resp Failure 3. MDS 4. ARF 5. Thrombocytopenia 6. Anemia RECS: 1. Will require re-intubation as family decision regarding goals of care have not been made 2. Abx per ID 3. Transfuse for Plat < 10; unless actively bleeding 4. Palliative care consult as this likely represents this patient's terminal event 5 Vent support 6 Prognosis grim 35 min cc time NILO NASSAR MD Dec 29, 2016 13:38
[2016-12-29] MEDS: FLUCONAZOLE 100 MG/NS (PMX) 50 ML IVPB SCH (13:52)
[2016-12-29] MEDS ORDERED: FENTAnyl 50 MCG/ML VIAL IV ONE (14:00)
--- NOTE | 2016-12-29 15:09 | RADRPT ---
PROCEDURE: XR Chest. CLINICAL INDICATION: Intubated TECHNIQUE: Anterior chest x-ray. COMPARISON: 12/27/2016 FINDINGS: Endotracheal tube terminates 5 cm above the errol. Nasogastric tube terminates below the inferior margin of the exam, likely in the stomach. There are patchy bibasilar air space opacities and patchy airspace opacity in the right lung apex. Hazy opacity in left lung base is consistent with small pleural effusion. There is no evidence of pneumothorax. The cardiomediastinal silhouette is unremarkable. The soft tissues are normal. Osseous structures are unremarkable. IMPRESSION: 1. Stable and satisfactory position of the life-support lines. 2. Small left pleural effusion, new or increased from previous exam. 3. Patchy infiltrates in the right lung apex and bilateral lung bases, new or increased from previo us exam. RPTAT: II .Olman Perez MD, Date Time Electronically viewed and signed by .Olman Perez MD, on 12/29/2016 15:08 .M/
--- NOTE | 2016-12-29 15:25 | PN ---
Date/Time of Note Date/Time of Note DATE: 12/29/16 TIME: 15:15 Assessment/Plan VTE Prophylaxis VTE Prophylaxis Intervention: contraindicated Lines/Catheters IV Catheter Type (from [facility]): Peripheral IV Urinary Cath still in place: Yes Reason Cath still needed: terminal illness/intractable pain Assessment/Plan Assessment/Plan Patient is a 71 year old man with chronic myelomonocytic leukemia (CMML) >CMML Patient has been treated with azacytadine and lenalidomide with little effect Current cytopenia is secondary to above and acute illness. 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 >respiratory failure Patient on ventilator Ultimately, continued dialogue with family regarding aggressive care is advisable. Dr Pryor to resume care tomorrow. Subjective 24 Hr Interval Summary Free Text/Dictation Patient self-extubated, but was subsequently reintubated after worsening distress from marked secretions and his inability to clear them No bleeding noted. Administered two units of plateletpheresis with minimal numerical improvement. Exam/Review of Systems Vital Signs Vitals Vital Signs Date Time Temp Pulse Resp B/P Pulse Ox O2 Delivery O2 Flow Rate FiO2 12/29/16 14:00 0 22 107/61 100 Mechanical Ventilator 12/29/16 13:45 40 12/29/16 12:00 98.6 Intake and Output 12/28/16 12/28/16 12/29/16 15:00 23:00 07:00 Intake Total 250 ml 1080 ml 1115 ml Output Total 635 ml 685 ml 560 ml Balance -385 ml 395 ml 555 ml Exam Constitutional: non-verbal, other Head: atraumatic, normocephalic Eyes: nl conjunctiva, nl sclera ENMT: mucosa pink and moist, nl lips & teeth Neck: jvd, non-tender, supple Respiratory: diminished breath sounds, labored breathing Cardiovascular: other Gastrointestinal: non-tender, soft Extremities: normal pulses Results Result Diagram: 12/29/16 0450 12/29/16 045 Results 24 hrs Laboratory Tests Test 12/29/16 04:50 Alanine Aminotransferase (ALT/SGPT) 21 Albumin 2.6 L Albumin/Globulin Ratio 0.50 Alkaline Phosphatase 87 Anion Gap 17 H Anisocytosis 2+ Aspartate Amino Transf (AST/SGOT) 42 Basophils # Basophils % Blood Morphology Comment Blood Urea Nitrogen 27 H Calcium Level 7.5 L Carbon Dioxide Level 24 Chloride Level 110 Creatinine 1.40 H Differential Comment MANUAL DIFF Direct Bilirubin 0.00 Eosinophils # 0.2 Eosinophils % 2.0 Globulin 5.10 H Glucose Level 84 Hematocrit 25.1 L Hemoglobin 8.3 L Hypochromasia 1+ Indirect Bilirubin 0.2 Lymphocytes # 3.5 H Lymphocytes % 42.0 Mean Corpuscular Hemoglobin 28.1 L Mean Corpuscular Hemoglobin Concent 32.9 Mean Corpuscular Volume 85.3 Mean Platelet Volume 8.7 Monocytes # 3.4 H Monocytes % 41.0 H Neutrophils # 1.2 L Neutrophils % 15.0 L Nucleated Red Blood Cells # Nucleated Red Blood Cells % Platelet Count 18 #*L Platelet Estimate PLT APPEAR DECREASED Potassium Level 3.5 Red Blood Count 2.94 L Red Cell Distribution Width 19.7 H Sodium Level 147 H Total Bilirubin 0.2 Total Protein 7.7 White Blood Count 8.3 Medications Medications Current Medications Ondansetron HCl (Zofran Inj) 4 mg Q6H PRN IV NAUSEA AND/OR VOMITING; Start 12/23 at 16:30 Nitroglycerin (Nitroglycerin (Sl Tab) 0.4 Mg) 1 tab Q5M PRN SL CHEST PAIN; Start 12/23/16 at 16:30 Acetaminophen (Tylenol Supp) 650 mg Q4H PRN [place] PAIN LEVEL 1-3 OR FEVER Last administered on 12/25/16 01:06; Admin Dose 650 MG; Start 12/23/16 at 16:30 Morphine Sulfate (morphine) 2 mg Q4H PRN IV PAIN LEVEL 7-10 Last administered on 12/29/16 08:32; Admin Dose 2 MG; Start 12/23/16 at 16:30 Lorazepam (Ativan) 1 mg Q2H PRN IV ANXIETY Last administered on 12/29/16 13:48 ; Admin Dose 1 MG; Start 12/23/16 at 16:30 Bisacodyl (Dulcolax) 5 mg DAILY PRN PO CONSTIPATION; Start 12/23/16 at 16:30 Pantoprazole 40 mg 40 mg DAILY@06 IV Last administered on 12/29/16 06:34; Admin Dose 40 MG; Start 12/24/16 at 06:00 Propofol 100 ml @ 2.346 mls/ hr Q12H IV Last administered on 12/29/16 13:49; Admin Dose 23.46 MLS/HR; Start 12/23/16 at 22:00 Levofloxacin/ Dextrose 100 ml @ 50 mls/hr Q48H IVPB Last administered on 09:06; Admin Dose 50 MLS/HR; Start 12/26/16 at 09:00 Vancomycin HCl/ Sodium Chloride (Vancocin/NS) 150 ml @ 75 mls/hr Q24H IVPB Last administered on 12/29/16 12:01; Admin Dose 75 MLS/HR; Start 12/26/16 at 12: 00 Vancomycin HCl PER PHARMACY DOSING NOTE XX ; Start 12/26/16 at 11:00 Potassium Chloride 10 meq/ Dextrose 1,005 ml @ 70 mls/hr [id number] IV Last administered on 12/29/16 01:48; Admin Dose 70 MLS/HR; Start 12/27/16 at 09:00 Meropenem 100 ml @ 200 mls/hr Q12 IVPB Last administered on 12/29/16 08:31; Admin Dose 200 MLS/HR; Start 12/27/16 at 14:00 Fluconazole/ Sodium Chloride (Diflucan 100 Mg/ NS (Pmx)) 50 ml @ 50 mls/hr Q24H IVPB Last administered on 12/29/16 13:52; Admin Dose 50 MLS/HR; Start at 13:00 Miscellaneous Information (*Rx Drug Level Order Reminder*) VANCOMYCIN TROUGH AT 1100 ONCE ONCE XX ; Start 12/30/16 at 11:00; Stop 12/30/16 at 11:01 DIANE NELSON MD Dec 29, 2016 15:25
[2016-12-29] MEDS ORDERED: SUCCINYLCHOLINE CHLORIDE 100 MG/5 ML SYG IV SCH (17:30)
[2016-12-29] MEDS ORDERED: ETOMIDATE 20 MG INJ IV SCH (17:30)
--- NOTE | 2016-12-29 18:09 | OPR ---
DATE OF OPERATION: PROCEDURE: Endotracheal intubation. INDICATION: The patient self-extubated and was in respiratory distress, thereby requiring reintubat ion. CONSENT: This was an emergent procedure and patient was unable to consent so a 2-physician consent was obtained. MEDICATIONS USED: Fentanyl 50 mcg IV push, etomidate 20 mg IV push, and succinylcholine 50 mg IV push. TECHNIQUE: The patient was preoxygenated with 100% FIO2 via nonrebreather mask, followed by an Ambu bag. He maintained sats of 100% throughout the procedure. Under direct visualization using a MAC 3 laryngoscope, the vocal cord was visualized. There was slight edema surrounding in the supraglott ic region. A 7.5 endotracheal tube was advanced past the vocal cords and the stylette was removed. The ET tube was secured at 24 cm at the lips. Initial confirmation was made with positive end tida l CO2 and bilateral breath sounds. COMPLICATIONS: None. FOLLOWUP STUDIES: A stat chest x-ray has been ordered and is pending. Dictated By: NILO NASSAR MD NK/NTS Conf#: [id number] DID#: [id number] CC: SAMARA STRAUSS MD; BEN COURTNEY MD; HUMA THAKKAR MD;*EndCC*
[2016-12-29 22:10] LABS: HEPARIN INDUCED PLATELET AB NEGATIVE (NEGATIVE)
[2016-12-30] VITALS (60 sets, daily range): BP systolic 97–144; BP diastolic 55–78; PULSE 70–85; RESP 18–48
--- NOTE | 2016-12-30 00:41 | RADRPT ---
PROCEDURE: XR Chest. CLINICAL INDICATION: Reintubation TECHNIQUE: Anterior chest x-ray. COMPARISON: 12/29/2016 at 14 hours. FINDINGS: Endotracheal tube terminates 3.5 cm above the errol. Nasogastric tube courses below the inferior margin of the exam terminating in the upper abdomen Multiple calcified nodules in the right upper lung zone are again noted. Patchy airspace opacity in the left infrahilar region is more prominent than on previous exam. Hazy opacity in the left lung base suggests small pleural effusion. There is no evidence of pneumothorax. The cardiomediastinal silhouette is unremarkable. The soft tissues are normal. Osseous structures are unremarkable. IMPRESSION: 1. Satisfactory position of endotracheal tube and nasogastric tube. 2. Atelectasis versus infiltrate in left lung base, increased from previous exam. 3. Small left pleural effusion, improved compared to previous exam. 4. Multiple calcified nodules in the right lung apex suggesting prior granulomatous disease RPTAT: HLDM .Olman Perez MD, MD Date Time Electronically viewed and signed by .Olman Perez MD, MD on 12/30/2016 00:41 .M/
[2016-12-30] MEDS: IPRATROPIUM (HFA) 12.9 GM INHALER INH SCH ×6 (01:15→21:09)
[2016-12-30] MEDS: ALBUTEROL HFA 8 GM INHALER INH SCH ×6 (01:15→21:10)
[2016-12-30] MEDS: PROPOFOL 100 ML IV SCH ×5 (01:46→20:18)
[2016-12-30 05:29] LABS: AADO2 Arterial 91.5 mmHg (7.0-24.0); Allen Test ACCEPTAB; Arterial Base Excess 0 mmol/L (-3.0-3); Arterial COHb 0.1 % (0.0-3.0); Arterial HCO3 24.6 mmol/L (22.0-26.0); Arterial MetHb 0.4 % (0.0-1.5); Arterial Total Hemglobin 9.4 g/dl (12.0-18.0); MODE VENT - AC
[2016-12-30] MEDS: LORAZEPAM 2 MG INJ IV PRN (05:35)
[2016-12-30] MEDS: PANTOPRAZOLE 40 MG INJ IV SCH (05:36)
[2016-12-30 07:35] LABS: HEMATOCRIT 26.3 % (42.0-52.0); HEMOGLOBIN 8.8 g/dl (14.0-18.0); MEAN CORPUSCULAR HEMOGLOBIN 28.4 pg (29.0-33.0); MEAN CORPUSCULAR HGB CONC 33.6 g/dl (32.0-37.0); MEAN CORPUSCULAR VOLUME 84.7 fl (82.0-101.0); MEAN PLATELET VOLUME 11.6 fl (7.4-10.4)
[2016-12-30 07:42] LABS: PLATELET COUNT 15 10^3/UL (140-440); SUSPECT 1
[2016-12-30 07:43] LABS: CONDITION 1; LH ANALYZER COMMENTS 1
[2016-12-30 08:06] LABS: ALBUMIN 2.3 g/dl (3.3-4.9)
[2016-12-30 08:07] LABS: POTASSIUM 3.7 mmol/L (3.5-5.1)
[2016-12-30 08:09] LABS: ALBUMIN/GLOBULIN RATIO 0.44; BILIRUBIN,INDIRECT 0.2 mg/dl (0-1.1); BILIRUBIN,TOTAL 0.2 mg/dl (0.2-1.3); CREATININE 1.35 mg/dl (0.61-1.24); TOTAL PROTEIN 7.5 g/dl (6.1-8.1)
[2016-12-30 08:10] LABS: CALCIUM 7.4 mg/dl (8.4-10.2)
[2016-12-30] MEDS: LEVOFLOXACIN 500MG/D5W (PMX) 100 ML IVPB SCH (08:25)
[2016-12-30] MEDS: MEROPENEM 500 MG/100 ML (PMX) 100 ML IVPB SCH (08:26)
[2016-12-30] MEDS: POTASSIUM CHLORIDE 10 MEQ in DEXTROSE 5% 1,000 ML IV SCH (08:26)
--- NOTE | 2016-12-30 09:37 | CONS ---
Date/Time of Note Date/Time of Note DATE: 12/30/16 TIME: 09:34 Assessment/Plan Assessment/Plan Additional Assessment/Plan Assessment and recommendation; 1. Patient admitted with respiratory failure due to severe bilateral pneumonia. 2. CML with severe thrombocytopenia. 3. Improved serum creatinine from today's lab. 4. Patient did not handle self extubation yesterday and had to be reintubated. Continue current supportive care, ventilator settings, antibiotics. Prognosis is poor. Consultation Date/Type/Reason Admit Date/Time Dec 23, 2016 at 15:37 Initial Consult Date 12/24/16 Type of Consultation: Pulm Referring Provider: BEN COURTNEY MD 24 HR Interval Summary Free Text/Dictation Patient condition remains critical. The patient self extubated yesterday morning however had to be reintubated because of severe dyspnea. Currently or intubated, sedated. In no distress. General examination; elderly male, or intubated, sedated. Exam/Review of Systems Vital Signs Vitals Vital Signs Date Time Temp Pulse Resp B/P Pulse Ox O2 Delivery O2 Flow Rate FiO2 12/30/16 08:57 77 12/30/16 07:52 26 100 40 12/30/16 06:30 101/55 12/30/16 06:00 Mechanical Ventilator 12/30/16 04:00 98.2 Intake and Output 12/29/16 12/29/16 12/30/16 15:00 23:00 07:00 Intake Total 1227.68 ml 944.22 ml 437.68 ml Output Total 540 ml 540 ml 845 ml Balance 687.68 ml 404.22 ml -407.32 ml Exam HEENT examination; supple neck, or intubated. No neck masses. No thyromegaly. No neck bruits. Pupils are midsize and reactive to light bilaterally. Next Chest examination; diminished but clear breath sounds. S1-S2 audible, no murmurs. Regular rhythm. Abdomen examination; soft, no organomegaly. Bowel sounds audible. Extremity examination; no peripheral edema. Pulses 1+ bilaterally. CONFERENCE PLANNING MANAGER examination; patient is sedated. Chest x-ray was reviewed from yesterday which is showing left lower lobe infiltrate with bilateral nodular changes more pronounced in the upper lobes bilaterally. Current ventilator settings; assist control of 24, tidal volume 500, PEEP of 5, 40% FiO2. Results Result Diagram: 12/30/16 0725 12/30/16 0725 Results 24 hrs Laboratory Tests Test 12/30/16 05:00 12/30/16 05:30 12/30/16 07:25 Arterial Blood HCO3 24.6 Arterial Blood Base Excess 0 Arterial Blood Oxygen Saturation 98.5 H Dar Test ACCEPTAB Arterial Blood Gas Puncture Site Right Radial Arterial Blood Carboxyhemoglobin 0.1 Arterial Blood Date Drawn 12/30/2016 5:20:05 AM Arterial Blood Methemoglobin 0.4 Arterial Blood pCO2 (Temp correct) 39.5 Arterial Blood pH (Temp corrected) 7.412 Arterial Blood pO2 (Temp corrected) 148.3 H Blood Gas A-a O2 Differential 91.5 H Blood Gas Actual Respiration Rate 27 Blood Gas Inspiratory Pressure 22.0 Blood Gas Low PEEP Setting 5.0 Blood Gas Modality VENT - AC Blood Gas Notified Time 12/30/2016 5:28:06 AM Blood Gas Notified Whom BR Blood Gas Respiration Rate 24.0 Blood Gas Specimen Source Blood arterial Blood Gas Temperature 37.0 Blood Gas Tidal Volume 500.0 FiO2 40.0 Oxyhemoglobin Percent 98.0 Total Hemoglobin 9.4 L Vancomycin Level Trough 13.5 Alanine Aminotransferase (ALT/SGPT) 18 Albumin 2.3 L Albumin/Globulin Ratio 0.44 Alkaline Phosphatase 79 Anion Gap 13 Aspartate Amino Transf (AST/SGOT) 32 Basophils # Basophils % Blood Morphology Comment Blood Urea Nitrogen 25 H Calcium Level 7.4 L Carbon Dioxide Level 25 Chloride Level 108 Creatinine 1.35 H Direct Bilirubin 0.00 Eosinophils # Eosinophils % Globulin 5.20 H Glucose Level 88 Hematocrit 26.3 L Hemoglobin 8.8 L Indirect Bilirubin 0.2 Lymphocytes # Lymphocytes % Mean Corpuscular Hemoglobin 28.4 L Mean Corpuscular Hemoglobin Concent 33.6 Mean Corpuscular Volume 84.7 Mean Platelet Volume 11.6 #H Monocytes # Neutrophils # Neutrophils % Nucleated Red Blood Cells # Nucleated Red Blood Cells % Platelet Count 15 *L Potassium Level 3.7 Red Blood Count 3.10 L Red Cell Distribution Width 20.0 H Sodium Level 142 Total Bilirubin 0.2 Total Protein 7.5 White Blood Count 9.0 Medications Medications Current Medications Ondansetron HCl (Zofran Inj) 4 mg Q6H PRN IV NAUSEA AND/OR VOMITING; Start 12/23 at 16:30 Nitroglycerin (Nitroglycerin (Sl Tab) 0.4 Mg) 1 tab Q5M PRN SL CHEST PAIN; Start 12/23/16 at 16:30 Acetaminophen (Tylenol Supp) 650 mg Q4H PRN [place] PAIN LEVEL 1-3 OR FEVER Last administered on 12/25/16 01:06; Admin Dose 650 MG; Start 12/23/16 at 16:30 Morphine Sulfate (morphine) 2 mg Q4H PRN IV PAIN LEVEL 7-10 Last administered on 12/29/16 08:32; Admin Dose 2 MG; Start 12/23/16 at 16:30 Lorazepam (Ativan) 1 mg Q2H PRN IV ANXIETY Last administered on 12/30/16 05:35 ; Admin Dose 1 MG; Start 12/23/16 at 16:30 Bisacodyl (Dulcolax) 5 mg DAILY PRN PO CONSTIPATION; Start 12/23/16 at 16:30 Pantoprazole 40 mg 40 mg DAILY@06 IV Last administered on 12/30/16 05:36; Admin Dose 40 MG; Start 12/24/16 at 06:00 Propofol 100 ml @ 2.346 mls/ hr Q12H IV Last administered on 12/30/16 05:36; Admin Dose 23.46 MLS/HR; Start 12/23/16 at 22:00 Levofloxacin/ Dextrose 100 ml @ 50 mls/hr Q48H IVPB Last administered on 08:25; Admin Dose 50 MLS/HR; Start 12/26/16 at 09:00 Vancomycin HCl/ Sodium Chloride (Vancocin/NS) 150 ml @ 75 mls/hr Q24H IVPB Last administered on 12/29/16 12:01; Admin Dose 75 MLS/HR; Start 12/26/16 at 12: 00 Vancomycin HCl PER PHARMACY DOSING NOTE XX ; Start 12/26/16 at 11:00 Potassium Chloride 10 meq/ Dextrose 1,005 ml @ 70 mls/hr [id number] Last administered on 12/30/16 08:26; Admin Dose 70 MLS/HR; Start 12/27/16 at 09:00 Meropenem 100 ml @ 200 mls/hr Q12 IVPB Last administered on 12/30/16 08:26; Admin Dose 200 MLS/HR; Start 12/27/16 at 14:00 Fluconazole/ Sodium Chloride (Diflucan 100 Mg/ NS (Pmx)) 50 ml @ 50 mls/hr Q24H IVPB Last administered on 12/29/16t 13:52; Admin Dose 50 MLS/HR; Start at 13:00 Miscellaneous Information (*Rx Drug Level Order Reminder*) VANCOMYCIN TROUGH AT 1100 ONCE ONCE XX ; Start 12/30/16 at 11:00; Stop 12/30/16 at 11:01 MYESHA OLIVER Dec 30, 2016 09:37
--- NOTE | 2016-12-30 10:05 | CONS ---
Date/Time of Note Date/Time of Note DATE: 12/30/16 TIME: 10:03 Assessment/Plan Assessment/Plan Chief Complaint/Hosp Course IMPRESSION: 1. 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 Cardiomyopathy with decreased left ventricular ejection fraction, last being approximately 45% to 50% by echo 11/2016. 3. Hypotension, borderline. 4. Influenza positive. 5. History of chronic myelogenous leukemia. 6. Renal failure-slowly improving. 7. Thrombocytopenia, severe. 8. Anemia. 9. Leukocytosis. Recc: -Tele -serial ecg's -Continue abx's and f/u cx data -Follow volume status closely -continue tamiflu -Wean vent as tolerated Problems: Consultation Date/Type/Reason Admit Date/Time Dec 23, 2016 at 15:37 Initial Consult Date 12/24/16 Type of Consultation: Cardiology Reason for Consultation Cardiomyopathy Referring Provider: BEN COURTNEY MD Exam/Review of Systems Vital Signs Vitals Vital Signs Date Time Temp Pulse Resp B/P Pulse Ox O2 Delivery O2 Flow Rate FiO2 12/30/16 08:57 77 12/30/16 07:52 26 100 40 12/30/16 06:30 101/55 12/30/16 06:00 Mechanical Ventilator 12/30/16 04:00 98.2 Intake and Output 12/29/16 12/29/16 12/30/16 15:00 23:00 07:00 Intake Total 1227.68 ml 944.22 ml 437.68 ml Output Total 540 ml 540 ml 845 ml Balance 687.68 ml 404.22 ml -407.32 ml Exam Review of Systems: CONSTITUTIONAL: No fevers, chills. PULMONARY: intubated CARDIOVASCULAR: No obvious chest pain/palpitations GASTROINTESTINAL: No nausea/vomiting. GENITOURINARY: No hematuria/dysuria. MUSCULOSKELETAL: No obvious myagias/arthalgias. PSYCHIATRIC: No documented depression. NEUROLOGIC: No weakness Constitutional: alert, oriented Psych: no complaints Head: normocephalic ENMT: mucosa pink and moist Neck: jvd, supple Respiratory: diminished breath sounds Cardiovascular: regular rate and rhythm Gastrointestinal: non-tender, soft Musculoskeletal: muscle tone Extremities: edema (none) Neurological: other (No focal deficits) Results Result Diagram: 12/30/1672412/30/16724 Results 24 hrs Laboratory Tests Test 12/30/16 05:00 12/30/16 05:30 12/30/16 07:25 Arterial Blood HCO3 24.6 Arterial Blood Base Excess 0 Arterial Blood Oxygen Saturation 98.5 H Dar Test ACCEPTAB Arterial Blood Gas Puncture Site Right Radial Arterial Blood Carboxyhemoglobin 0.1 Arterial Blood Date Drawn 12/30/2016 5:20:05 AM Arterial Blood Methemoglobin 0.4 Arterial Blood pCO2 (Temp correct) 39.5 Arterial Blood pH (Temp corrected) 7.412 Arterial Blood pO2 (Temp corrected) 148.3 H Blood Gas A-a O2 Differential 91.5 H Blood Gas Actual Respiration Rate 27 Blood Gas Inspiratory Pressure 22.0 Blood Gas Low PEEP Setting 5.0 Blood Gas Modality VENT - AC Blood Gas Notified Time 12/30/2016 5:28:06 AM Blood Gas Notified Whom BR Blood Gas Respiration Rate 24.0 Blood Gas Specimen Source Blood arterial Blood Gas Temperature 37.0 Blood Gas Tidal Volume 500.0 FiO2 40.0 Oxyhemoglobin Percent 98.0 Total Hemoglobin 9.4 L Vancomycin Level Trough 13.5 Alanine Aminotransferase (ALT/SGPT) 18 Albumin 2.3 L Albumin/Globulin Ratio 0.44 Alkaline Phosphatase 79 Anion Gap 13 Aspartate Amino Transf (AST/SGOT) 32 Basophils # Basophils % Blood Morphology Comment Blood Urea Nitrogen 25 H Calcium Level 7.4 L Carbon Dioxide Level 25 Chloride Level 108 Creatinine 1.35 H Direct Bilirubin 0.00 Eosinophils # Eosinophils % Globulin 5.20 H Glucose Level 88 Hematocrit 26.3 L Hemoglobin 8.8 L Indirect Bilirubin 0.2 Lymphocytes # Lymphocytes % Mean Corpuscular Hemoglobin 28.4 L Mean Corpuscular Hemoglobin Concent 33.6 Mean Corpuscular Volume 84.7 Mean Platelet Volume 11.6 #H Monocytes # Neutrophils # Neutrophils % Nucleated Red Blood Cells # Nucleated Red Blood Cells % Platelet Count 15 *L Potassium Level 3.7 Red Blood Count 3.10 L Red Cell Distribution Width 20.0 H Sodium Level 142 Total Bilirubin 0.2 Total Protein 7.5 White Blood Count 9.0 Medications Medications Current Medications Ondansetron HCl (Zofran Inj) 4 mg Q6H PRN IV NAUSEA AND/OR VOMITING; Start 12/23 at 16:30 Nitroglycerin (Nitroglycerin (Sl Tab) 0.4 Mg) 1 tab Q5M PRN SL CHEST PAIN; Start 12/23/16 at 16:30 Acetaminophen (Tylenol Supp) 650 mg Q4H PRN [place] PAIN LEVEL 1-3 OR FEVER Last administered on 12/25/16 01:06; Admin Dose 650 MG; Start 12/23/16 at 16:30 Morphine Sulfate (morphine) 2 mg Q4H PRN IV PAIN LEVEL 7-10 Last administered on 12/29/16 08:32; Admin Dose 2 MG; Start 12/23/16 at 16:30 Lorazepam (Ativan) 1 mg Q2H PRN IV ANXIETY Last administered on 12/30/16 05:35 ; Admin Dose 1 MG; Start 12/23/16 at 16:30 Bisacodyl (Dulcolax) 5 mg DAILY PRN PO CONSTIPATION; Start 12/23/16 at 16:30 Pantoprazole 40 mg 40 mg DAILY@06 IV Last administered on 12/30/16 05:36; Admin Dose 40 MG; Start 12/24/16 at 06:00 Propofol 100 ml @ 2.346 mls/ hr Q12H IV Last administered on 12/30/16 05:36; Admin Dose 23.46 MLS/HR; Start 12/23/16 at 22:00 Levofloxacin/ Dextrose 100 ml @ 50 mls/hr Q48H IVPB Last administered on 08:25; Admin Dose 50 MLS/HR; Start 12/26/16 at 09:00 Vancomycin HCl/ Sodium Chloride (Vancocin/NS) 150 ml @ 75 mls/hr Q24H IVPB Last administered on 12/29/16 12:01; Admin Dose 75 MLS/HR; Start 12/26/16 at 12: 00 Vancomycin HCl PER PHARMACY DOSING NOTE XX ; Start 12/26/16 at 11:00 Potassium Chloride 10 meq/ Dextrose 1,005 ml @ 70 mls/hr [id number] IV Last administered on 12/30/16 08:26; Admin Dose 70 MLS/HR; Start 12/27/16 at 09:00 Meropenem 100 ml @ 200 mls/hr Q12 IVPB Last administered on 12/30/16 08:26; Admin Dose 200 MLS/HR; Start 12/27/16 at 14:00 Fluconazole/ Sodium Chloride (Diflucan 100 Mg/ NS (Pmx)) 50 ml @ 50 mls/hr Q24H IVPB Last administered on 12/29/16t 13:52; Admin Dose 50 MLS/HR; Start at 13:00 Miscellaneous Information (*Rx Drug Level Order Reminder*) VANCOMYCIN TROUGH AT 1100 ONCE ONCE XX ; Start 12/30/16 at 11:00; Stop 12/30/16 at 11:01 MILENA VELA Dec 30, 2016 10:05
[2016-12-30 10:19] LABS: BASOPHIL # 0.1 10^3/ul (0.0-0.1); EOSINOPHILS # 0.3 10^3/ul (0.0-0.5); LYMPHOCYTES # 4.9 10^3/ul (0.8-2.9); MONOCYTE # 3.5 10^3/ul (0.3-0.9); NEUTROPHIL # 0.2 10^3/ul (1.6-7.5)
[2016-12-30 10:20] LABS: PLATELET ESTIMATE PLT APPEAR DECREASED
[2016-12-30] MEDS: FLUCONAZOLE 100 MG/NS (PMX) 50 ML IVPB SCH (12:15)
[2016-12-30] MEDS: VANCOMYCIN 750 MG in SOD CHLORIDE 0.9% 150 ML IVPB SCH (12:15)
--- NOTE | 2016-12-30 13:06 | PN ---
DATE: 12/30/2016 SUBJECTIVE: No acute events overnight. The patient is intubated and sedated, lying comfortably in bed, no fevers. LABORATORIES: WBC 9, platelets 15, BUN 25, creatinine 1.35. MICROBIOLOGY: Cultures remain negative. DIAGNOSTICS: Chest x-ray from yesterday revealed atelectasis versus infiltrate in the left lung base, increased from previous exam. INDWELLINGS: Endotracheal tube, NG tube, Leyva catheter, PICC line. ANTIMICROBIALS: The patient is on: 1. Merrem. 2. Fluconazole. 3. Vancomycin. 4. Levaquin. 5. Status post Tamiflu. PHYSICAL EXAMINATION: GENERAL: Chronically ill-appearing, elderly man who is lying comfortably in bed. HEENT: Head atraumatic, normocephalic. Sclerae anicteric. Buccal mucosa dry. NECK: Supple, trachea midline. CHEST: Rise symmetrical. Breath sounds diminished to bases. HEART: S1, S2. ABDOMEN: Soft, bowel tones present. EXTREMITIES: Without cyanosis or edema. ASSESSMENT: 1. Sepsis. 2. Acute respiratory failure status post reintubated yesterday secondary to self-extubation. 3. Influenza A with superimposed healthcare-associated pneumonia as well as possible aspiration. 4. Acute renal failure. 5. Anemia with thrombocytopenia. 6. 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 PLAN: The patient remains stable. He was reintubated yesterday. We will repeat sputum cultures. We will repeat influenza swab again today. Continue broad spectrum antibiotics. Follow recommendations of consultants. Dictated By: DARLENE CARTAGENA PANEL CUTTER robel GOMEZ/RADHA Conf#: [id number] DID#: [id number] MTDD
--- NOTE | 2016-12-30 13:44 | CONS ---
Date/Time of Note Date/Time of Note DATE: 12/30/16 TIME: 13:42 Assessment/Plan Assessment/Plan Additional Assessment/Plan 1. Acute kidney injury, likely secondary to acute tubular necrosis in the setting of sepsis. 2. Acute hypoxemic respiratory failure, multifactorial, secondary to sepsis and secondary to pulmonary condition. 3. Acute pulmonary edema with influenza pneumonia. 4. History of congestive heart failure with diastolic heart failure. 5. History of chronic obstructive pulmonary disease. 6. History of gastroesophageal reflux disease. 7. History of smoking. 8. 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 PLAN: pt remains intubated, BUN/Cr and Na slightly improving , continue D5W wiht KCl and Free water IV abx as per ID pt has poor prognosis due to CML consider palliative care consult will follow up K replacement this critical care note took greater than 45 min to complete Consultation Date/Type/Reason Admit Date/Time Dec 23, 2016 at 15:37 Initial Consult Date 12/23/16 Type of Consultation: NEPHROLOGY Referring Provider: BEN COURTNEY MD Exam/Review of Systems Vital Signs Vitals Vital Signs Date Time Temp Pulse Resp B/P Pulse Ox O2 Delivery O2 Flow Rate FiO2 12/30/16 13:11 75 24 100 30 12/30/16 12:00 98.0 120/60 Mechanical Ventilator Intake and Output 12/29/16 12/29/16 12/30/16 15:00 23:00 07:00 Intake Total 1227.68 ml 944.22 ml 437.68 ml Output Total 540 ml 540 ml 945 ml Balance 687.68 ml 404.22 ml -507.32 ml Exam Gen [place]: intubated/sedated CV: S1S2, tachycardiac, no M/G/R Lungs: coarse breath sounds throughout all lung masters, diminished at the bases , with end expiratory wheezing, improving daily Abd: soft, NT/ND, +BS, no rebound, no guarding, neg HSM, scaphoid EXT: 1+ edema, no ecchymosis, no clubbing, FROM, muscle wasting noted Neuro: intubated/sedated Skin: scattered petechiae Results Result Diagram: 12/30/16 0725 12/30/16 0725 Results 24 hrs Laboratory Tests Test 12/30/16 05:00 12/30/16 05:30 12/30/16 07:25 12/30/16 10:55 Arterial Blood HCO3 24.6 Arterial Blood Base Excess 0 Arterial Blood Oxygen Saturation 98.5 H Dar Test ACCEPTAB Arterial Blood Gas Puncture Site Right Radial Arterial Blood Carboxyhemoglobin 0.1 Arterial Blood Date Drawn 12/30/2016 5:20:05 AM Arterial Blood Methemoglobin 0.4 Arterial Blood pCO2 (Temp correct) 39.5 Arterial Blood pH (Temp corrected) 7.412 Arterial Blood pO2 (Temp corrected) 148.3 H Blood Gas A-a O2 Differential 91.5 H Blood Gas Actual Respiration Rate 27 Blood Gas Inspiratory Pressure 22.0 Blood Gas Low PEEP Setting 5.0 Blood Gas Modality VENT - AC Blood Gas Notified Time 12/30/2016 5:28:06 AM Blood Gas Notified Whom BR Blood Gas Respiration Rate 24.0 Blood Gas Specimen Source Blood arterial Blood Gas Temperature 37.0 Blood Gas Tidal Volume 500.0 FiO2 40.0 Oxyhemoglobin Percent 98.0 Total Hemoglobin 9.4 L Vancomycin Level Trough 13.5 12.6 Alanine Aminotransferase (ALT/SGPT) 18 Albumin 2.3 L Albumin/Globulin Ratio 0.44 Alkaline Phosphatase 79 Anion Gap 13 Aspartate Amino Transf (AST/SGOT) 32 Basophils # 0.1 Basophils % 1.0 Blood Morphology Comment Blood Urea Nitrogen 25 H Calcium Level 7.4 L Carbon Dioxide Level 25 Chloride Level 108 Creatinine 1.35 H Direct Bilirubin 0.00 Eosinophils # 0.3 Eosinophils % 3.0 Globulin 5.20 H Glucose Level 88 Hematocrit 26.3 L Hemoglobin 8.8 L Indirect Bilirubin 0.2 Lymphocytes # 4.9 H Lymphocytes % 54.0 H Mean Corpuscular Hemoglobin 28.4 L Mean Corpuscular Hemoglobin Concent 33.6 Mean Corpuscular Volume 84.7 Mean Platelet Volume 11.6 #H Metamyelocytes # 0.1 Metamyelocytes % 1.0 H Monocytes # 3.5 H Monocytes % 39.0 H Neutrophils # 0.2 L Neutrophils % 2.0 L Nucleated Red Blood Cells # Nucleated Red Blood Cells % Platelet Count 15 *L Platelet Estimate PLT APPEAR DECREASED Potassium Level 3.7 Red Blood Count 3.10 L Red Cell Distribution Width 20.0 H Sodium Level 142 Total Bilirubin 0.2 Total Protein 7.5 White Blood Count 9.0 Medications Medications Current Medications Ondansetron HCl (Zofran Inj) 4 mg Q6H PRN IV NAUSEA AND/OR VOMITING; Start 12/23 at 16:30 Nitroglycerin (Nitroglycerin (Sl Tab) 0.4 Mg) 1 tab Q5M PRN SL CHEST PAIN; Start 12/23/16 at 16:30 Acetaminophen (Tylenol Supp) 650 mg Q4H PRN [place] PAIN LEVEL 1-3 OR FEVER Last administered on 12/25/16 01:06; Admin Dose 650 MG; Start 12/23/16 at 16:30 Morphine Sulfate (morphine) 2 mg Q4H PRN IV PAIN LEVEL 7-10 Last administered on 12/29/16 08:32; Admin Dose 2 MG; Start 12/23/16 at 16:30 Lorazepam (Ativan) 1 mg Q2H PRN IV ANXIETY Last administered on 12/30/16 05:35 ; Admin Dose 1 MG; Start 12/23/16 at 16:30 Bisacodyl (Dulcolax) 5 mg DAILY PRN PO CONSTIPATION; Start 12/23/16 at 16:30 Pantoprazole 40 mg 40 mg DAILY@06 IV Last administered on 12/30/16 05:36; Admin Dose 40 MG; Start 12/24/16 at 06:00 Propofol 100 ml @ 2.346 mls/ hr Q12H IV Last administered on 12/30/16 10:21; Admin Dose 23.46 MLS/HR; Start 12/23/16 at 22:00 Levofloxacin/ Dextrose 100 ml @ 50 mls/hr Q48H IVPB Last administered on 08:25; Admin Dose 50 MLS/HR; Start 12/26/16 at 09:00 Vancomycin HCl/ Sodium Chloride (Vancocin/NS) 150 ml @ 75 mls/hr Q24H IVPB Last administered on 12/30/16 12:15; Admin Dose 75 MLS/HR; Start 12/26/16 at 12: 00 Vancomycin HCl PER PHARMACY DOSING NOTE XX ; Start 12/26/16 at 11:00 Potassium Chloride 10 meq/ Dextrose 1,005 ml @ 70 mls/hr [id number] Last administered on 12/30/16 08:26; Admin Dose 70 MLS/HR; Start 12/27/16 at 09:00 Meropenem 100 ml @ 200 mls/hr Q12 IVPB Last administered on 12/30/16 08:26; Admin Dose 200 MLS/HR; Start 12/27/16 at 14:00; Status Future Hold Fluconazole/ Sodium Chloride (Diflucan 100 Mg/ NS (Pmx)) 50 ml @ 50 mls/hr Q24H IVPB Last administered on 12/30/16 12:15; Admin Dose 50 MLS/HR; Start at 13:00 GILL PEREIRA MD Dec 30, 2016 13:44
--- NOTE | 2016-12-30 13:55 | PN ---
DATE: 12/30/2016 HISTORY: I met with patient's son and nephew. We sat down at the computer. I went through each di agnosis with family members and the treatments that have been done, as well as a general overview of his father's underlying preadmission diagnosis of MDS. In general, the patient has not improved at all, although he is not on pressors, he is still intubated, septic and has required blood product t ransfusions. Overall, prognosis was extremely low preadmission in reviewing Dr. Pryor's note. This gentleman did not respond to aggressive intervention and patient's clinical outlook is unfortun ately quite poor. He has had multiple consultants including cardiology, pulmonary medicine hematolo gy/oncology, nephrology, GI, and the course of treatment is full support and patient is a full code. We changed the conversation to what ifs and I have asked the family members to think about his curre nt full code status to assure them that we will continue to do what we are doing right now, but in t he event that he deteriorates and becomes hemodynamically unstable, the option is to not do cardiopu lmonary resuscitation as step 1. I did not address step 2 insofar as level of care and comfort kacie ures. At this time, I do not feel the family members are currently ready to address that. The zeke ent did not know his underlying diagnosis according to the patient's son and from my interaction it feels like the son and the nephew are making all decisions. There is a sister who lives in [facility] a nd her mother who comes to visit, but my impressions are that she is not aware of the severity of hi s clinical condition and his overall prognosis. I have asked family members to consider no cardiopu lmonary resuscitation. They will go back and speak to other family members. I have asked him also able to remember the fact that even if he does survive this catastrophe, he is still left with an in curable underlying medical condition. Dictated By: JUSTIN DANIELS MD, LP/RADHA Conf#: [id number] DID#: [id number]
--- NOTE | 2016-12-30 14:01 | PN ---
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 1. Sepsis - 2/2 to Influenza Pneumonia with superimposed healthcare-associated pneumonia as well as possible aspiration - pt completed tamiflu - continue IV antibiotics Lezaquin + Vanco + Fluconazole (want to hold meropenem sec to thrombocytopenia). 2. Acute hypoxemic respiratory failure - s/p intubation - severe acidosis - improving - appreciate pulm recs - wean as tolerated - f/u pulm rec's 3. Severe thrombocytopenia - sec to CML + PNA. HIT antibodies was negative. 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 4. Acute on chronic renal failure - 2/2 to sepsis - improving now - continue IVF - renally adjust medications, avoid nephrotoxins, appreciate renal consult 5. Anemia - of chronic disease -H/H presently low nL range - transfuse as per hem/onc, ferrilicit 6. CML/MDS - per Heme/Onc patient has been treated with azacytadine and lenalidomide with little effect. - continue with hem/onc recs 7. CHF with diastolic heart failure - consult cardiology, type II NSTEMI ? - demand ischemia, recent ECHO EF 45%, diastolic dysfunction 8. COPD - see #1 9. GERD - continue with IV protonix 10. Smoking abuse - advised patient on cessation 11. Hypernatremia - dehydration vs volume depletion vs other - resolved today. - continue with free water and D5W as per nephro - improving 12. GI ppx - protonix 13. DVT ppx - contraindicated for anticoagulation - monitor acute changes dispo - f/u recs, monitor changes, prognosis is guarded/poor - f/u palliative care consult - if no improvement, code status needs to be reassessed Critical care time spent today = 45 min. Problems: Subjective 24 Hr Interval Summary Free Text/Dictation Pt had to be re-intubated yesterday. Exam/Review of Systems Vital Signs Vitals Vital Signs Date Time Temp Pulse Resp B/P Pulse Ox O2 Delivery O2 Flow Rate FiO2 12/30/16 13:11 75 24 100 30 12/30/16 12:00 98.0 120/60 Mechanical Ventilator Intake and Output 12/29/16 12/29/16 12/30/16 15:00 23:00 07:00 Intake Total 1227.68 ml 944.22 ml 437.68 ml Output Total 540 ml 540 ml 945 ml Balance 687.68 ml 404.22 ml -507.32 ml Exam Gen [place]: intubated/sedated HEENT: NC/AT, PERRLA, ETT NECK: supple, no thyromegaly THORAX: symmetrical, no obvious deformities CV: S1S2, tachycardiac, no M/G/R Lungs: coarse breath sounds throughout all lung masters, diminished at the bases , with end expiratory wheezing - still present Abd: soft, NT/ND, +BS, no rebound, no guarding, neg HSM, scaphoid EXT: 1+ edema, no ecchymosis, no clubbing, FROM, muscle wasting noted Neuro: intubated/sedated Psych: cannot assess Skin: scattered petechiae Results Result Diagram: 12/30/16 0725 12/30/16 0725 Results 24 hrs Laboratory Tests Test 12/30/16 05:00 12/30/16 05:30 12/30/16 07:25 12/30/16 10:55 Arterial Blood HCO3 24.6 Arterial Blood Base Excess 0 Arterial Blood Oxygen Saturation 98.5 H Dar Test ACCEPTAB Arterial Blood Gas Puncture Site Right Radial Arterial Blood Carboxyhemoglobin 0.1 Arterial Blood Date Drawn 12/30/2016 5:20:05 AM Arterial Blood Methemoglobin 0.4 Arterial Blood pCO2 (Temp correct) 39.5 Arterial Blood pH (Temp corrected) 7.412 Arterial Blood pO2 (Temp corrected) 148.3 H Blood Gas A-a O2 Differential 91.5 H Blood Gas Actual Respiration Rate 27 Blood Gas Inspiratory Pressure 22.0 Blood Gas Low PEEP Setting 5.0 Blood Gas Modality VENT - AC Blood Gas Notified Time 12/30/2016 5:28:06 AM Blood Gas Notified Whom BR Blood Gas Respiration Rate 24.0 Blood Gas Specimen Source Blood arterial Blood Gas Temperature 37.0 Blood Gas Tidal Volume 500.0 FiO2 40.0 Oxyhemoglobin Percent 98.0 Total Hemoglobin 9.4 L Vancomycin Level Trough 13.5 12.6 Alanine Aminotransferase (ALT/SGPT) 18 Albumin 2.3 L Albumin/Globulin Ratio 0.44 Alkaline Phosphatase 79 Anion Gap 13 Aspartate Amino Transf (AST/SGOT) 32 Basophils # 0.1 Basophils % 1.0 Blood Morphology Comment Blood Urea Nitrogen 25 H Calcium Level 7.4 L Carbon Dioxide Level 25 Chloride Level 108 Creatinine 1.35 H Direct Bilirubin 0.00 Eosinophils # 0.3 Eosinophils % 3.0 Globulin 5.20 H Glucose Level 88 Hematocrit 26.3 L Hemoglobin 8.8 L Indirect Bilirubin 0.2 Lymphocytes # 4.9 H Lymphocytes % 54.0 H Mean Corpuscular Hemoglobin 28.4 L Mean Corpuscular Hemoglobin Concent 33.6 Mean Corpuscular Volume 84.7 Mean Platelet Volume 11.6 #H Metamyelocytes # 0.1 Metamyelocytes % 1.0 H Monocytes # 3.5 H Monocytes % 39.0 H Neutrophils # 0.2 L Neutrophils % 2.0 L Nucleated Red Blood Cells # Nucleated Red Blood Cells % Platelet Count 15 *L Platelet Estimate PLT APPEAR DECREASED Potassium Level 3.7 Red Blood Count 3.10 L Red Cell Distribution Width 20.0 H Sodium Level 142 Total Bilirubin 0.2 Total Protein 7.5 White Blood Count 9.0 Medications Medications Current Medications Ondansetron HCl (Zofran Inj) 4 mg Q6H PRN IV NAUSEA AND/OR VOMITING; Start 12/23 at 16:30 Nitroglycerin (Nitroglycerin (Sl Tab) 0.4 Mg) 1 tab Q5M PRN SL CHEST PAIN; Start 12/23/16 at 16:30 Acetaminophen (Tylenol Supp) 650 mg Q4H PRN [place] PAIN LEVEL 1-3 OR FEVER Last administered on 12/25/16 01:06; Admin Dose 650 MG; Start 12/23/16 at 16:30 Morphine Sulfate (morphine) 2 mg Q4H PRN IV PAIN LEVEL 7-10 Last administered on 12/29/16 08:32; Admin Dose 2 MG; Start 12/23/16 at 16:30 Lorazepam (Ativan) 1 mg Q2H PRN IV ANXIETY Last administered on 12/30/16 05:35 ; Admin Dose 1 MG; Start 12/23/16 at 16:30 Bisacodyl (Dulcolax) 5 mg DAILY PRN PO CONSTIPATION; Start 12/23/16 at 16:30 Pantoprazole 40 mg 40 mg DAILY@06 IV Last administered on 12/30/16 05:36; Admin Dose 40 MG; Start 12/24/16 at 06:00 Propofol 100 ml @ 2.346 mls/ hr Q12H IV Last administered on 12/30/16 10:21; Admin Dose 23.46 MLS/HR; Start 12/23/16 at 22:00 Levofloxacin/ Dextrose 100 ml @ 50 mls/hr Q48H IVPB Last administered on 08:25; Admin Dose 50 MLS/HR; Start 12/26/16 at 09:00 Vancomycin HCl/ Sodium Chloride (Vancocin/NS) 150 ml @ 75 mls/hr Q24H IVPB Last administered on 12/30/16 12:15; Admin Dose 75 MLS/HR; Start 12/26/16 at 12: 00 Vancomycin HCl PER PHARMACY DOSING NOTE XX ; Start 12/26/16 at 11:00 Potassium Chloride 10 meq/ Dextrose 1,005 ml @ 70 mls/hr [id number] IV Last administered on 12/30/16 08:26; Admin Dose 70 MLS/HR; Start 12/27/16 at 09:00 Meropenem 100 ml @ 200 mls/hr Q12 IVPB Last administered on 12/30/16 08:26; Admin Dose 200 MLS/HR; Start 12/27/16 at 14:00; Status Future Hold Fluconazole/ Sodium Chloride (Diflucan 100 Mg/ NS (Pmx)) 50 ml @ 50 mls/hr Q24H IVPB Last administered on 12/30/16 12:15; Admin Dose 50 MLS/HR; Start at 13:00 ANA RATLIFF Dec 30, 2016 13:52
[2016-12-31] VITALS (53 sets, daily range): BP systolic 80–171; BP diastolic 45–85; PULSE 69–87; RESP 18–43
--- NOTE | 2016-12-31 00:04 | CONS ---
DATE OF ADMISSION: 12/23/2016 DATE OF CONSULTATION: 12/30/2016 TYPE OF CONSULTATION: Hematology progress note. HISTORY OF PRESENT ILLNESS: Mr. Townsend remains intubated on ventilator support and sedated with pr opofol. The patient's arterial blood gases are improving. This morning pH 7.412, pCO2 39.5, pO2 148.3 on a FIO2 of 40%. White count this morning 9000 with an absolute neutrophil count of only 200. Hemoglobin was 8.8, he matocrit 26.3 and platelet count was 15,000. The patient at the present time has no clinical bleeding. As noted previously, would continue to ho ld platelet transfusions as patient is refractory. He has developed besides having significant bone marrow suppression he has developed alloantibodies which decreased the increment achieved by platel et transfusion. Sodium today 148, potassium 3.7, creatinine 1.35 and BUN 25. The patient is basically stable. No new hematologic recommendations at this time. Dictated By: OPAL MOSES MD, SR/NTS Conf#: [id number] DID#: [id number]
[2016-12-31] MEDS: PROPOFOL 100 ML IV SCH ×5 (00:45→22:13)
[2016-12-31] MEDS: IPRATROPIUM (HFA) 12.9 GM INHALER INH SCH ×6 (01:07→21:13)
[2016-12-31] MEDS: ALBUTEROL HFA 8 GM INHALER INH SCH ×6 (01:07→21:13)
[2016-12-31] MEDS: POTASSIUM CHLORIDE 10 MEQ in DEXTROSE 5% 1,000 ML IV SCH ×3 (03:57→23:09)
[2016-12-31] MEDS: PANTOPRAZOLE 40 MG INJ IV SCH (05:22)
[2016-12-31] MEDS: LORAZEPAM 2 MG INJ IV PRN (06:36)
[2016-12-31 07:22] LABS: HEMATOCRIT 27.6 % (42.0-52.0); HEMOGLOBIN 9.3 g/dl (14.0-18.0); MEAN CORPUSCULAR HEMOGLOBIN 28.3 pg (29.0-33.0); MEAN CORPUSCULAR HGB CONC 33.6 g/dl (32.0-37.0); MEAN CORPUSCULAR VOLUME 84.4 fl (82.0-101.0); MEAN PLATELET VOLUME 11.4 fl (7.4-10.4); RED BLOOD COUNT 3.26 10^6/ul (4.70-6.10); RED CELL DISTRIBUTION WIDTH 19.5 % (11.5-14.5); UNCORRECTED WBC 12.3 10^3/ul (4.8-10.8); WHITE BLOOD COUNT 12.3 10^3/ul (4.8-10.8)
[2016-12-31 07:25] LABS: ALBUMIN 2.7 g/dl (3.3-4.9); POTASSIUM 4.1 mmol/L (3.5-5.1)
[2016-12-31 07:27] LABS: BILIRUBIN,INDIRECT 0.2 mg/dl (0-1.1); BILIRUBIN,TOTAL 0.2 mg/dl (0.2-1.3); CREATININE 1.43 mg/dl (0.61-1.24)
[2016-12-31 07:28] LABS: ALBUMIN/GLOBULIN RATIO 0.45; CALCIUM 7.9 mg/dl (8.4-10.2); TOTAL PROTEIN 8.6 g/dl (6.1-8.1)
[2016-12-31 07:31] LABS: PHOSPHORUS 3.8 mg/dl (2.5-4.9)
[2016-12-31 07:32] LABS: MAGNESIUM 1.1 mg/dl (1.7-2.5)
[2016-12-31 07:37] LABS: CONDITION 1; LH ANALYZER COMMENTS 1; SUSPECT 1
[2016-12-31 07:42] LABS: PLATELET COUNT 16 10^3/UL (140-440)
--- NOTE | 2016-12-31 08:40 | PN ---
Date/Time of Note Date/Time of Note DATE: 12/31/16 TIME: 08:32 Assessment/Plan VTE Prophylaxis VTE Prophylaxis Intervention: other (thrombocytopenia) Lines/Catheters IV [facility] Type (from [facility]): Peripheral IV Urinary Cath still in place: Yes Reason Cath still needed: other (indicate) (altered mental status) Assessment/Plan Assessment/Plan Pt is clinically unchanged. Thrombocytopenia is still in the teens over the last week. Given the lack of response to platelet transfusion, this intervention should be reserved for active bleeding or surgical procedures. Subjective 24 Hr Interval Summary Free Text/Dictation Pt is intubated and sedated. Appears quietly restting and not in distress. Exam/Review of Systems Vital Signs Vitals Vital Signs Date Time Temp Pulse Resp B/P Pulse Ox O2 Delivery O2 Flow Rate FiO2 12/31/16 05:05 81 27 100 30 12/31/16 04:30 171/85 12/31/16 04:00 Mechanical Ventilator 12/31/16 00:00 98.2 Intake and Output 12/30/16 12/30/16 12/31/16 15:00 23:00 07:00 Intake Total 1397.68 ml 1020.76 ml 560.76 ml Output Total 815 ml 1205 ml 545 ml Balance 582.68 ml -184.24 ml 15.76 ml Exam Constitutional: non-verbal Head: normocephalic Eyes: other (pallor) ENMT: other (ET tube present) Respiratory: other (on respiratory support) Cardiovascular: regular rate and rhythm Gastrointestinal: soft Skin: other (no active bleeding stigmata) Results Result Diagram: 12/31/16 0633 12/31/16 0633 Results 24 hrs Laboratory Tests Test 12/30/16 10:55 12/31/16 06:33 Vancomycin Level Trough 12.6 Alanine Aminotransferase (ALT/SGPT) 20 Albumin 2.7 L Albumin/Globulin Ratio 0.45 Alkaline Phosphatase 104 Anion Gap 14 Aspartate Amino Transf (AST/SGOT) 35 Basophils # Pending Basophils % Pending Blood Morphology Comment Blood Urea Nitrogen 20 Calcium Level 7.9 L Carbon Dioxide Level 26 Chloride Level 108 Creatinine 1.43 H Direct Bilirubin 0.00 Eosinophils # Pending Eosinophils % Pending Globulin 5.90 H Glucose Level 95 Hematocrit 27.6 L Hemoglobin 9.3 L Indirect Bilirubin 0.2 Lymphocytes # Pending Lymphocytes % Pending Magnesium Level 1.1 L Mean Corpuscular Hemoglobin 28.3 L Mean Corpuscular Hemoglobin Concent 33.6 Mean Corpuscular Volume 84.4 Mean Platelet Volume 11.4 H Monocytes # Pending Monocytes % Pending Neutrophils # Pending Neutrophils % Pending Nucleated Red Blood Cells # Pending Nucleated Red Blood Cells % Pending Phosphorus Level 3.8 Platelet Count 16 *L Potassium Level 4.1 Red Blood Count 3.26 L Red Cell Distribution Width 19.5 H Sodium Level 144 Total Bilirubin 0.2 Total Protein 8.6 H White Blood Count 12.3 #H Medications Medications Current Medications Ondansetron HCl (Zofran Inj) 4 mg Q6H PRN IV NAUSEA AND/OR VOMITING; Start 12/23 at 16:30 Nitroglycerin (Nitroglycerin (Sl Tab) 0.4 Mg) 1 tab Q5M PRN SL CHEST PAIN; Start 12/23/16 at 16:30 Acetaminophen (Tylenol Supp) 650 mg Q4H PRN [place] PAIN LEVEL 1-3 OR FEVER Last administered on 12/25/16 01:06; Admin Dose 650 MG; Start 12/23/16 at 16:30 Morphine Sulfate (morphine) 2 mg Q4H PRN IV PAIN LEVEL 7-10 Last administered on 12/29/16 08:32; Admin Dose 2 MG; Start 12/23/16 at 16:30 Lorazepam (Ativan) 1 mg Q2H PRN IV ANXIETY Last administered on 12/31/16 06:36 ; Admin Dose 1 MG; Start 12/23/16 at 16:30 Bisacodyl (Dulcolax) 5 mg DAILY PRN PO CONSTIPATION; Start 12/23/16 at 16:30 Pantoprazole 40 mg 40 mg DAILY@06 IV Last administered on 12/31/16 05:22; Admin Dose 40 MG; Start 12/24/16 at 06:00 Propofol 100 ml @ 2.346 mls/ hr Q12H IV Last administered on 12/31/16 05:23; Admin Dose 23.46 MLS/HR; Start 12/23/16 at 22:00 Levofloxacin/ Dextrose 100 ml @ 50 mls/hr Q48H IVPB Last administered on 08:25; Admin Dose 50 MLS/HR; Start 12/26/16 at 09:00 Vancomycin HCl/ Sodium Chloride (Vancocin/NS) 150 ml @ 75 mls/hr Q24H IVPB Last administered on 12/30/16 12:15; Admin Dose 75 MLS/HR; Start 12/26/16 at 12: 00 Vancomycin HCl PER PHARMACY DOSING NOTE XX ; Start 12/26/16 at 11:00 Potassium Chloride 10 meq/ Dextrose 1,005 ml @ 70 mls/hr [id number] IV Last administered on 12/31/16 03:57; Admin Dose 70 MLS/HR; Start 12/27/16 at 09:00 Meropenem 100 ml @ 200 mls/hr Q12 IVPB Last administered on 12/30/16 08:26; Admin Dose 200 MLS/HR; Start 12/27/16 at 14:00; Status Future Hold Fluconazole/ Sodium Chloride (Diflucan 100 Mg/ NS (Pmx)) 50 ml @ 50 mls/hr Q24H IVPB Last administered on 12/30/16 12:15; Admin Dose 50 MLS/HR; Start at 13:00 GONZALO MCDONALD MD Dec 31, 2016 08:40
[2016-12-31 10:15] LABS: LYMPHOCYTES # 6.2 10^3/ul (0.8-2.9); MONOCYTE # 4.9 10^3/ul (0.3-0.9); MYELOCYTES # 0.2; NEUTROPHIL # 0.4 10^3/ul (1.6-7.5)
[2016-12-31 10:16] LABS: PLATELET ESTIMATE PLT APPEAR DECREASED
--- NOTE | 2016-12-31 10:23 | CONS ---
Date/Time of Note Date/Time of Note DATE: 12/31/16 TIME: 10:20 Assessment/Plan Assessment/Plan Additional Assessment/Plan 1. Respiratory failure, assess for congestive heart failure.-systolic and diastolic CHF acute on chronic - stable fluid satus - very poor prognosis. Pain Rx with sedation as needed. 2. Cardiomyopathy with decreased left ventricular ejection fraction, last being approximately 45% to 50% by echo 11/2016- no indication for ICD. 3. Hypotension, borderline - Rx as needed. 4. Influenza positive- on Rx, will follow 5. 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 6. Renal failure-slowly improving. 7. Thrombocytopenia, severe. 8. Anemia- no active bleeding now. 9. Leukocytosis- on anti-bx Consultation Date/Type/Reason Admit Date/Time Dec 23, 2016 at 15:37 Initial Consult Date 12/24/16 Type of Consultation: NEPHROLOGY Referring Provider: BEN COURTNEY MD 24 HR Interval Summary Free Text/Dictation No acute change - con't resp Rx - stable fluid status. ROS: No fever, no chills, no nausea, no vomiting, no diarrhea/constipation - AGITATION WHEN AWAKE No recent weight changes No chest pain, no PND, no orthopnea No dizziness, blurred vision No thirst, no heat or cold intolerance (per nurse) Exam/Review of Systems Vital Signs Vitals Vital Signs Date Time Temp Pulse Resp B/P Pulse Ox O2 Delivery O2 Flow Rate FiO2 12/31/16 08:00 30 12/31/16 07:00 97.7 87 24 106/65 100 Mechanical Ventilator Intake and Output 12/30/16 12/30/16 12/31/16 15:00 23:00 07:00 Intake Total 1397.68 ml 1020.76 ml 560.76 ml Output Total 815 ml 1205 ml 545 ml Balance 582.68 ml -184.24 ml 15.76 ml Exam General: ill appearing WD/NAD, AOx 0 HEENT: Unicetric/atraumatic/EOMI (does not follow commands) NECK: JVD elevated, no thyromegaly, intub Lymph: no lymphadenopathy HEART: regular with no S3, II/ systolic murmur at apex LUNGS: Coarse sounds ABD: soft, NT, ND, +BS : Intact Neuro: non focal SKIN: chronic changes EXT: trace edema Results Result Diagram: 12/31/16 0633 12/31/16 0633 Results 24 hrs Laboratory Tests Test 12/30/16 10:55 12/31/16 06:33 Vancomycin Level Trough 12.6 Alanine Aminotransferase (ALT/SGPT) 20 Albumin 2.7 L Albumin/Globulin Ratio 0.45 Alkaline Phosphatase 104 Anion Gap 14 Aspartate Amino Transf (AST/SGOT) 35 Band Neutrophils % 1.0 Basophils # Basophils % Blood Morphology Comment Blood Urea Nitrogen 20 Calcium Level 7.9 L Carbon Dioxide Level 26 Chloride Level 108 Creatinine 1.43 H Differential Comment MANUAL DIFF Direct Bilirubin 0.00 Eosinophils # Eosinophils % Globulin 5.90 H Glucose Level 95 Hematocrit 27.6 L Hemoglobin 9.3 L Indirect Bilirubin 0.2 Lymphocytes # 6.2 H Lymphocytes % 50.0 Magnesium Level 1.1 L Mean Corpuscular Hemoglobin 28.3 L Mean Corpuscular Hemoglobin Concent 33.6 Mean Corpuscular Volume 84.4 Mean Platelet Volume 11.4 H Metamyelocytes # 0.2 Metamyelocytes % 2.0 H Monocytes # 4.9 H Monocytes % 40.0 H Myelocytes # 0.2 Myelocytes % 2.0 H Neutrophils # 0.4 L Neutrophils % 3.0 L Nucleated Red Blood Cells # Nucleated Red Blood Cells % Phosphorus Level 3.8 Platelet Count 16 *L Platelet Estimate PLT APPEAR DECREASED Potassium Level 4.1 Reactive Lymphocytes % 2.0 Red Blood Count 3.26 L Red Cell Distribution Width 19.5 H Sodium Level 144 Total Bilirubin 0.2 Total Protein 8.6 H White Blood Count 12.3 #H Medications Medications Current Medications Ondansetron HCl (Zofran Inj) 4 mg Q6H PRN IV NAUSEA AND/OR VOMITING; Start 12/23 at 16:30 Nitroglycerin (Nitroglycerin (Sl Tab) 0.4 Mg) 1 tab Q5M PRN SL CHEST PAIN; Start 12/23/16 at 16:30 Acetaminophen (Tylenol Supp) [address] PAIN LEVEL 1-3 OR FEVER Last administered on 12/25/16 01:06; Admin Dose 650 MG; Start 12/23/16 at 16:30 Morphine Sulfate (morphine) 2 mg Q4H PRN [place] PAIN LEVEL 7-10 Last administered on 12/29/16 08:32; Admin Dose 2 MG; Start 12/23/16 at 16:30 Lorazepam (Ativan) 1 mg Q2H PRN IV ANXIETY Last administered on 12/31/16 06:36 ; Admin Dose 1 MG; Start 12/23/16 at 16:30 Bisacodyl (Dulcolax) 5 mg DAILY PRN PO CONSTIPATION; Start 12/23/16 at 16:30 Pantoprazole 40 mg 40 mg DAILY@06 IV Last administered on 12/31/16 05:22; Admin Dose 40 MG; Start 12/24/16 at 06:00 Propofol 100 ml @ 2.346 mls/ hr Q12H IV Last administered on 12/31/16 05:23; Admin Dose 23.46 MLS/HR; Start 12/23/16 at 22:00 Levofloxacin/ Dextrose 100 ml @ 50 mls/hr Q48H IVPB Last administered on 08:25; Admin Dose 50 MLS/HR; Start 12/26/16 at 09:00 Vancomycin HCl/ Sodium Chloride (Vancocin/NS) 150 ml @ 75 mls/hr Q24H IVPB Last administered on 12/30/16 12:15; Admin Dose 75 MLS/HR; Start 12/26/16 at 12: 00 Vancomycin HCl PER PHARMACY DOSING NOTE XX ; Start 12/26/16 at 11:00 Potassium Chloride 10 meq/ Dextrose 1,005 ml @ 70 mls/hr [id number] IV Last administered on 12/31/16 03:57; Admin Dose 70 MLS/HR; Start 12/27/16 at 09:00 Meropenem 100 ml @ 200 mls/hr Q12 IVPB Last administered on 12/30/16 08:26; Admin Dose 200 MLS/HR; Start 12/27/16 at 14:00; Status Future Hold Fluconazole/ Sodium Chloride (Diflucan 100 Mg/ NS (Pmx)) 50 ml @ 50 mls/hr Q24H IVPB Last administered on 12/30/16 12:15; Admin Dose 50 MLS/HR; Start at 13:00 GONZALO MURCIA MD Dec 31, 2016 10:23
--- NOTE | 2016-12-31 10:36 | CONS ---
Date/Time of Note Date/Time of Note DATE: 12/31/16 TIME: 10:33 Assessment/Plan Assessment/Plan Additional Assessment/Plan Assessment recommendations; 1. Patient admitted with severe pneumonia leading to respiratory failure. 2. CML ,on chemotherapy. 3. Severe thrombocytopenia without any evidence of bleed. 4. Failure to be weaned off from mechanical ventilator despite numerous attempts. 5. Patient continues to exhibit poor mental status off sedation. 6. Renal insufficiency. Continue current treatment for now, ventilator settings, antibiotics. Prognosis is poor. Consultation Date/Type/Reason Admit Date/Time Dec 23, 2016 at 15:37 Initial Consult Date 12/24/16 Type of Consultation: Pulmonary/critical care Referring Provider: BEN COURTNEY MD 24 HR Interval Summary Free Text/Dictation Patient condition remains critical. The patient cannot handle sedation vacations. Becomes extremely agitated and starts pulling on various lines and catheters. Patient was again given a sedation vacation early this morning and the patient exhibited same behavior. At the very sedated. Patient however has remained hemodynamically stable. General examination; elderly male, currently in no distress. Opens eyes on name calling. Exam/Review of Systems Vital Signs Vitals Vital Signs Date Time Temp Pulse Resp B/P Pulse Ox O2 Delivery O2 Flow Rate FiO2 12/31/16 08:00 30 12/31/16 07:00 97.7 87 24 106/65 100 Mechanical Ventilator Intake and Output 12/30/16 12/30/16 12/31/16 15:00 23:00 07:00 Intake Total 1397.68 ml 1020.76 ml 560.76 ml Output Total 815 ml 1205 ml 545 ml Balance 582.68 ml -184.24 ml 15.76 ml Exam Current ventilator settings are AC of 24, tidal volume 500, PEEP of 5, 30% FiO2. HEENT examination; supple neck, no JVD. No lymphadenopathy. Or intubated. No neck masses. No thyromegaly. Chest examination; diminished but clear breath sounds. S1-S2 audible, no murmurs. Regular rhythm. Abdomen examination; nondistended, no organomegaly. Bowel sounds audible. Extremity examination; no peripheral edema. RESEARCH METHODOLOGIST examination; patient is sedated but opens eyes on name calling. Results Result Diagram: 12/31/16 0633 12/31/16 0633 Results 24 hrs Laboratory Tests Test 12/30/16 10:55 12/31/16 06:33 Vancomycin Level Trough 12.6 Alanine Aminotransferase (ALT/SGPT) 20 Albumin 2.7 L Albumin/Globulin Ratio 0.45 Alkaline Phosphatase 104 Anion Gap 14 Aspartate Amino Transf (AST/SGOT) 35 Band Neutrophils % 1.0 Basophils # Basophils % Blood Morphology Comment Blood Urea Nitrogen 20 Calcium Level 7.9 L Carbon Dioxide Level 26 Chloride Level 108 Creatinine 1.43 H Differential Comment MANUAL DIFF Direct Bilirubin 0.00 Eosinophils # Eosinophils % Globulin 5.90 H Glucose Level 95 Hematocrit 27.6 L Hemoglobin 9.3 L Indirect Bilirubin 0.2 Lymphocytes # 6.2 H Lymphocytes % 50.0 Magnesium Level 1.1 L Mean Corpuscular Hemoglobin 28.3 L Mean Corpuscular Hemoglobin Concent 33.6 Mean Corpuscular Volume 84.4 Mean Platelet Volume 11.4 H Metamyelocytes # 0.2 Metamyelocytes % 2.0 H Monocytes # 4.9 H Monocytes % 40.0 H Myelocytes # 0.2 Myelocytes % 2.0 H Neutrophils # 0.4 L Neutrophils % 3.0 L Nucleated Red Blood Cells # Nucleated Red Blood Cells % Phosphorus Level 3.8 Platelet Count 16 *L Platelet Estimate PLT APPEAR DECREASED Potassium Level 4.1 Reactive Lymphocytes % 2.0 Red Blood Count 3.26 L Red Cell Distribution Width 19.5 H Sodium Level 144 Total Bilirubin 0.2 Total Protein 8.6 H White Blood Count 12.3 #H Medications Medications Current Medications Ondansetron HCl (Zofran Inj) 4 mg Q6H PRN IV NAUSEA AND/OR VOMITING; Start 12/23 at 16:30 Nitroglycerin (Nitroglycerin (Sl Tab) 0.4 Mg) 1 tab Q5M PRN SL CHEST PAIN; Start 12/23/16 at 16:30 Acetaminophen (Tylenol Supp) 650 mg Q4H PRN [place] PAIN LEVEL 1-3 OR FEVER Last administered on 12/25/16 01:06; Admin Dose 650 MG; Start 12/23/16 at 16:30 Morphine Sulfate (morphine) 2 mg Q4H PRN IV PAIN LEVEL 7-10 Last administered on 12/29/16 08:32; Admin Dose 2 MG; Start 12/23/16 at 16:30 Lorazepam (Ativan) 1 mg Q2H PRN IV ANXIETY Last administered on 12/31/16 06:36 ; Admin Dose 1 MG; Start 12/23/16 at 16:30 Bisacodyl (Dulcolax) 5 mg DAILY PRN PO CONSTIPATION; Start 12/23/16 at 16:30 Pantoprazole 40 mg 40 mg DAILY@06 IV Last administered on 12/31/16 05:22; Admin Dose 40 MG; Start 12/24/16 at 06:00 Propofol 100 ml @ 2.346 mls/ hr Q12H IV Last administered on 12/31/16 05:23; Admin Dose 23.46 MLS/HR; Start 12/23/16 at 22:00 Levofloxacin/ Dextrose 100 ml @ 50 mls/hr Q48H IVPB Last administered on 08:25; Admin Dose 50 MLS/HR; Start 12/26/16 at 09:00 Vancomycin HCl/ Sodium Chloride (Vancocin/NS) 150 ml @ 75 mls/hr Q24H IVPB Last administered on 12/30/16 12:15; Admin Dose 75 MLS/HR; Start 12/26/16 at 12: 00 Vancomycin HCl PER PHARMACY DOSING NOTE XX ; Start 12/26/16 at 11:00 Potassium Chloride 10 meq/ Dextrose 1,005 ml @ 70 mls/hr [id number] IV Last administered on 12/31/16 03:57; Admin Dose 70 MLS/HR; Start 12/27/16 at 09:00 Meropenem 100 ml @ 200 mls/hr Q12 IVPB Last administered on 12/30/16 08:26; Admin Dose 200 MLS/HR; Start 12/27/16 at 14:00; Status Future Hold Fluconazole/ Sodium Chloride (Diflucan 100 Mg/ NS (Pmx)) 50 ml @ 50 mls/hr Q24H IVPB Last administered on 12/30/16 12:15; Admin Dose 50 MLS/HR; Start at 13:00 MYESHA OLIVER Dec 31, 2016 10:36
[2016-12-31] MEDS: morphine 2 MG INJ IV PRN (11:10)
--- NOTE | 2016-12-31 11:42 | PN ---
DATE: 12/31/2016 SUBJECTIVE: No acute changes. The patient remains intubated, sedated, looks comfortable, no fevers. VITAL SIGNS: Temperature 97.7, pulse 87, respirations 24, blood pressure 106/65 , saturation 100 on 30%. INDWELLINGS: Endotracheal tube, NG tube, Leyva catheter, peripheral IV. ANTIMICROBIALS: Patient is on: 1. Fluconazole. 2. Vancomycin. 3. Levaquin. 4. Meropenem. PHYSICAL EXAMINATION: GENERAL: Chronically ill-appearing, elderly man who is in no distress. HEENT: Head atraumatic, normocephalic. Sclerae anicteric. Buccal mucosa dry. NECK: Supple, trachea midline. CHEST: Rise symmetrical. Breath sounds diminished to bases. HEART: S1, S2. ABDOMEN: Soft, bowel tones present. EXTREMITIES: With trace edema. ASSESSMENT: 1. Sepsis with multisystem organ failure. 2. Pneumonia, requiring intubation, status post self-extubated a couple days ago and today intubated. 3. Anemia with thrombocytopenia. 4. Influenza A virus, status post 7 days of Tamiflu. 5. Myelodysplastic syndrome, oncology on case. PLAN: The patient remains stable pending repeat sputum culture and pending influenza swab. Continue present care, antibiotics. Vent per pulmonary. Follow recommendations of consultants. Dictated By: DARLENE CARTAGENA MANAGER CARGO for CORRINA GOMEZ/RADHA Conf#: [id number] DID#: [id number]
--- NOTE | 2016-12-31 11:45 | CONS ---
Date/Time of Note Date/Time of Note DATE: 12/31/16 TIME: 11:42 Assessment/Plan Assessment/Plan Additional Assessment/Plan 1. Acute kidney injury, likely secondary to acute tubular necrosis in the setting of sepsis. 2. Acute hypoxemic respiratory failure, multifactorial, secondary to sepsis and secondary to pulmonary condition. 3. Acute pulmonary edema with influenza pneumonia. 4. History of congestive heart failure with diastolic heart failure. 5. History of chronic obstructive pulmonary disease. 6. History of gastroesophageal reflux disease. 7. History of smoking. 8. 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 9. Hypomagnesemia PLAN: pt remains intubated, sedated, requiring platelets transfusion but still very low count ,BUN high but Cr normal , good urine output 2.6 liter , Mag 1.1 pt remains intubated, BUN still high but Cr improved to normal, continue D5W wiht KCl and Free water IV abx as per ID magnesium replacement 3 gram IV x 1 dose now will follow up this critical care note took greater than 45 min to complete Consultation Date/Type/Reason Admit Date/Time Dec 23, 2016 at 15:37 Initial Consult Date 12/23/16 Type of Consultation: NEPHROLOGY Reason for Consultation Acute renal failure Referring Provider: BEN COURTNEY MD 24 HR Interval Summary Free Text/Dictation pt remains intubated, sedated, requiring platelets transfusion but still very low count ,BUN high but Cr normal , good urine output 2.6 liter , Mag 1.1 Exam/Review of Systems Vital Signs Vitals Vital Signs Date Time Temp Pulse Resp B/P Pulse Ox O2 Delivery O2 Flow Rate FiO2 12/31/16 10:30 79 24 117/64 97 Mechanical Ventilator 12/31/16 08:00 30 12/31/16 07:00 97.7 Intake and Output 12/30/16 12/30/16 12/31/16 15:00 23:00 07:00 Intake Total 1397.68 ml 1020.76 ml 560.76 ml Output Total 815 ml 1205 ml 545 ml Balance 582.68 ml -184.24 ml 15.76 ml Exam Constitutional: non-verbal Head: normocephalic Eyes: other (pallor) ENMT: other (ET tube present) Respiratory: other (on respiratory support) Cardiovascular: regular rate and rhythm Gastrointestinal: soft Skin: other (no active bleeding stigmata) Results Result Diagram: 12/31/16 0633 12/31/16 0633 Results 24 hrs Laboratory Tests Test 12/31/16 06:33 Alanine Aminotransferase (ALT/SGPT) 20 Albumin 2.7 L Albumin/Globulin Ratio 0.45 Alkaline Phosphatase 104 Anion Gap 14 Aspartate Amino Transf (AST/SGOT) 35 Band Neutrophils % 1.0 Basophils # Basophils % Blood Morphology Comment Blood Urea Nitrogen 20 Calcium Level 7.9 L Carbon Dioxide Level 26 Chloride Level 108 Creatinine 1.43 H Differential Comment MANUAL DIFF Direct Bilirubin 0.00 Eosinophils # Eosinophils % Globulin 5.90 H Glucose Level 95 Hematocrit 27.6 L Hemoglobin 9.3 L Indirect Bilirubin 0.2 Lymphocytes # 6.2 H Lymphocytes % 50.0 Magnesium Level 1.1 L Mean Corpuscular Hemoglobin 28.3 L Mean Corpuscular Hemoglobin Concent 33.6 Mean Corpuscular Volume 84.4 Mean Platelet Volume 11.4 H Metamyelocytes # 0.2 Metamyelocytes % 2.0 H Monocytes # 4.9 H Monocytes % 40.0 H Myelocytes # 0.2 Myelocytes % 2.0 H Neutrophils # 0.4 L Neutrophils % 3.0 L Nucleated Red Blood Cells # Nucleated Red Blood Cells % Phosphorus Level 3.8 Platelet Count 16 *L Platelet Estimate PLT APPEAR DECREASED Potassium Level 4.1 Reactive Lymphocytes % 2.0 Red Blood Count 3.26 L Red Cell Distribution Width 19.5 H Sodium Level 144 Total Bilirubin 0.2 Total Protein 8.6 H White Blood Count 12.3 #H Medications Medications Current Medications Ondansetron HCl (Zofran Inj) 4 mg Q6H PRN IV NAUSEA AND/OR VOMITING; Start 12/23 at 16:30 Nitroglycerin (Nitroglycerin (Sl Tab) 0.4 Mg) 1 tab Q5M PRN SL CHEST PAIN; Start 12/23/16 at 16:30 Acetaminophen (Tylenol Supp) 650 mg Q4H PRN [place] PAIN LEVEL 1-3 OR FEVER Last administered on 12/25/16 01:06; Admin Dose 650 MG; Start 12/23/16 at 16:30 Morphine Sulfate (morphine) 2 mg Q4H PRN IV PAIN LEVEL 7-10 Last administered on 12/31/16 11:10; Admin Dose 2 MG; Start 12/23/16 at 16:30 Lorazepam (Ativan) 1 mg Q2H PRN IV ANXIETY Last administered on 12/31/16 06:36 ; Admin Dose 1 MG; Start 12/23/16 at 16:30 Bisacodyl (Dulcolax) 5 mg DAILY PRN PO CONSTIPATION; Start 12/23/16 at 16:30 Pantoprazole 40 mg 40 mg DAILY@06 IV Last administered on 12/31/16 05:22; Admin Dose 40 MG; Start 12/24/16 at 06:00 Propofol 100 ml @ 2.346 mls/ hr Q12H IV Last administered on 12/31/16 11:10; Admin Dose 7.756 MLS/HR; Start 12/23/16 at 22:00 Levofloxacin/ Dextrose 100 ml @ 50 mls/hr Q48H IVPB Last administered on 08:25; Admin Dose 50 MLS/HR; Start 12/26/16 at 09:00 Vancomycin HCl/ Sodium Chloride (Vancocin/NS) 150 ml @ 75 mls/hr Q24H IVPB Last administered on 12/30/16 12:15; Admin Dose 75 MLS/HR; Start 12/26/16 at 12: 00 Vancomycin HCl PER PHARMACY DOSING NOTE XX ; Start 12/26/16 at 11:00 Potassium Chloride 10 meq/ Dextrose 1,005 ml @ 70 mls/hr [id number] IV Last administered on 12/31/16 03:57; Admin Dose 70 MLS/HR; Start 12/27/16 at 09:00 Meropenem 100 ml @ 200 mls/hr Q12 IVPB Last administered on 12/30/16 08:26; Admin Dose 200 MLS/HR; Start 12/27/16 at 14:00; Status Future Hold Fluconazole/ Sodium Chloride (Diflucan 100 Mg/ NS (Pmx)) 50 ml @ 50 mls/hr Q24H IVPB Last administered on 12/30/16 12:15; Admin Dose 50 MLS/HR; Start at 13:00 GILL PEREIRA MD Dec 31, 2016 11:45
[2016-12-31] MEDS: VANCOMYCIN 750 MG in SOD CHLORIDE 0.9% 150 ML IVPB SCH (12:24)
[2016-12-31] MEDS ORDERED: MAGNESIUM SULFATE 3 GM in SOD CHLORIDE 0.9% 100 ML IVPB ONE (13:00)
--- NOTE | 2016-12-31 13:21 | PN ---
Date/Time of Note Date/Time of Note DATE: 12/31/16 TIME: 13:18 Assessment/Plan VTE Prophylaxis VTE Prophylaxis Intervention: contraindicated VTE Contraindication Reason: thrombocytopenia Lines/Catheters IV Catheter Type (from Nrs): Peripheral IV Urinary Cath still in place: Yes Reason Cath still needed: urinary retention Assessment/Plan Chief Complaint/Hosp Course Assessment/Plan: 71 yo male with a past medical history of CML on chemotherapy, MDS, GERD, COPD, anemia of chronic disease, who presents with acute shortness of breath sec to + influenza. 1. Sepsis - 2/2 to Influenza Pneumonia with superimposed healthcare-associated pneumonia as well as possible aspiration - pt completed tamiflu - continue IV antibiotics Lezaquin + Vanco + Fluconazole (want to hold meropenem sec to thrombocytopenia). 2. Acute hypoxemic respiratory failure - s/p intubation - severe acidosis - improving - appreciate pulm recs - wean as tolerated - f/u pulm rec's 3. Severe thrombocytopenia - sec to CML + PNA. HIT antibodies was negative. 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 4. Acute on chronic renal failure - 2/2 to sepsis - improving now - continue IVF - renally adjust medications, avoid nephrotoxins, appreciate renal consult 5. Anemia - of chronic disease -H/H presently low nL range - transfuse as per hem/onc, ferrilicit 6. CML/MDS - per Heme/Onc patient has been treated with azacytadine and lenalidomide with little effect. - continue with hem/onc recs 7. CHF with diastolic heart failure - consult cardiology, type II NSTEMI ? - demand ischemia, recent ECHO EF 45%, diastolic dysfunction 8. COPD - see #1 9. GERD - continue with IV protonix 10. Smoking abuse - advised patient on cessation 11. Hypernatremia - dehydration vs volume depletion vs other - resolved today. - continue with free water and D5W as per nephro - improving 12. GI ppx - protonix 13. DVT ppx - contraindicated for anticoagulation - monitor acute changes dispo - f/u recs, monitor changes, prognosis is guarded/poor - f/u palliative care consult - if no improvement, code status needs to be reassessed Critical care time spent today = 40 min. Problems: Subjective 24 Hr Interval Summary Free Text/Dictation Pt still intubated. Exam/Review of Systems Vital Signs Vitals Vital Signs Date Time Temp Pulse Resp B/P Pulse Ox O2 Delivery O2 Flow Rate FiO2 12/31/16 11:05 79 26 97 30 12/31/16 10:30 117/64 Mechanical Ventilator 12/31/16 07:00 97.7 Intake and Output 12/30/16 12/30/16 12/31/16 15:00 23:00 07:00 Intake Total 1397.68 ml 1020.76 ml 560.76 ml Output Total 815 ml 1205 ml 545 ml Balance 582.68 ml -184.24 ml 15.76 ml Exam Gen [place]: intubated/sedated HEENT: NC/AT, PERRLA, ETT NECK: supple, no thyromegaly THORAX: symmetrical, no obvious deformities CV: S1S2, no M/G/R Lungs: coarse breath sounds throughout all lung masters, diminished at the bases , with end expiratory wheezing - still present Abd: soft, NT/ND, +BS, no rebound, no guarding, neg HSM, scaphoid EXT: 1+ edema, no ecchymosis, no clubbing, FROM, muscle wasting noted Neuro: intubated/sedated Psych: cannot assess Skin: scattered petechiae Results Result Diagram: 12/31/16 0633 12/31/16 0633 Results 24 hrs Laboratory Tests Test 12/31/16 06:33 Alanine Aminotransferase (ALT/SGPT) 20 Albumin 2.7 L Albumin/Globulin Ratio 0.45 Alkaline Phosphatase 104 Anion Gap 14 Aspartate Amino Transf (AST/SGOT) 35 Band Neutrophils % 1.0 Basophils # Basophils % Blood Morphology Comment Blood Urea Nitrogen 20 Calcium Level 7.9 L Carbon Dioxide Level 26 Chloride Level 108 Creatinine 1.43 H Differential Comment MANUAL DIFF Direct Bilirubin 0.00 Eosinophils # Eosinophils % Globulin 5.90 H Glucose Level 95 Hematocrit 27.6 L Hemoglobin 9.3 L Indirect Bilirubin 0.2 Lymphocytes # 6.2 H Lymphocytes % 50.0 Magnesium Level 1.1 L Mean Corpuscular Hemoglobin 28.3 L Mean Corpuscular Hemoglobin Concent 33.6 Mean Corpuscular Volume 84.4 Mean Platelet Volume 11.4 H Metamyelocytes # 0.2 Metamyelocytes % 2.0 H Monocytes # 4.9 H Monocytes % 40.0 H Myelocytes # 0.2 Myelocytes % 2.0 H Neutrophils # 0.4 L Neutrophils % 3.0 L Nucleated Red Blood Cells # Nucleated Red Blood Cells % Phosphorus Level 3.8 Platelet Count 16 *L Platelet Estimate PLT APPEAR DECREASED Potassium Level 4.1 Reactive Lymphocytes % 2.0 Red Blood Count 3.26 L Red Cell Distribution Width 19.5 H Sodium Level 144 Total Bilirubin 0.2 Total Protein 8.6 H White Blood Count 12.3 #H Medications Medications Current Medications Ondansetron HCl (Zofran Inj) 4 mg Q6H PRN IV NAUSEA AND/OR VOMITING; Start 12/23 at 16:30 Nitroglycerin (Nitroglycerin (Sl Tab) 0.4 Mg) 1 tab Q5M PRN SL CHEST PAIN; Start 12/23/16 at 16:30 Acetaminophen (Tylenol Supp) 650 mg Q4H PRN [place] PAIN LEVEL 1-3 OR FEVER Last administered on 12/25/16 01:06; Admin Dose 650 MG; Start 12/23/16 at 16:30 Bisacodyl (Dulcolax) 5 mg DAILY PRN PO CONSTIPATION; Start 12/23/16 at 16:30 Pantoprazole 40 mg 40 mg DAILY@06 IV Last administered on 12/31/16 05:22; Admin Dose 40 MG; Start 12/24/16 at 06:00 Propofol 100 ml @ 2.346 mls/ hr Q12H IV Last administered on 12/31/16 11:10; Admin Dose 7.756 MLS/HR; Start 12/23/16 at 22:00 Levofloxacin/ Dextrose 100 ml @ 50 mls/hr Q48H IVPB Last administered on 08:25; Admin Dose 50 MLS/HR; Start 12/26/16 at 09:00 Vancomycin HCl/ Sodium Chloride (Vancocin/NS) 150 ml @ 75 mls/hr Q24H IVPB Last administered on 12/31/16 12:24; Admin Dose 75 MLS/HR; Start 12/26/16 at 12: 00 Vancomycin HCl PER PHARMACY DOSING NOTE XX ; Start 12/26/16 at 11:00 Potassium Chloride 10 meq/ Dextrose 1,005 ml @ 70 mls/hr [id number] IV Last administered on 12/31/16 03:57; Admin Dose 70 MLS/HR; Start 12/27/16 at 09:00 Meropenem 100 ml @ 200 mls/hr Q12 IVPB Last administered on 12/30/16 08:26; Admin Dose 200 MLS/HR; Start 12/27/16 at 14:00; Status Future Hold Fluconazole/ Sodium Chloride 50 ml @ 50 mls/hr Q24H IVPB Last administered on 12:15; Admin Dose 50 MLS/HR; Start 12/27/16 at 13:00 Magnesium Sulfate 3 gm/Sodium Chloride 106 ml @ 35.333 mls/ hr ONCE ONCE IVPB ; Start 12/31/16 at 13:00; Stop 12/31/16 at 15:59 Fentanyl (Sublimaze) 100 ml @ 2.5 mls/hr TITRATE IV ; Start 12/31/16 at 13:00 ANA RATLIFF Dec 31, 2016 13:21
[2016-12-31] MEDS: FLUCONAZOLE 100 MG/NS (PMX) 50 ML IVPB SCH (14:15)
[2016-12-31] MEDS: FENTAnyl (DRIP) 1000 mcg/100mL 100 ML IV SCH (15:28)
--- NOTE | 2016-12-31 23:13 | RADRPT ---
PROCEDURE: XR Chest. CLINICAL INDICATION: Orogastric tube placement. TECHNIQUE: Single frontal chest x-ray. COMPARISON: 12/29/2016 FINDINGS: Orogastric tube is in place with the tip below the inferior aspect of the image, within the left upp er quadrant/stomach. Endotracheal tube tip is just below level of clavicles above errol. Heart is normal size. There is decreased pulmonary vascular congestion. There is residual left basilar pro bable edema.. There is unchanged nodular densities in the right upper lobe. There is small left pl eural effusion.. There is no pneumothorax. Bones are unchanged.. IMPRESSION: Orogastric tube with tip below the inferior edge of the image, within the left upper quadrant/stomac h. Decreased pulmonary vascular congestion. Otherwise no change. RPTAT: HMVK .Paul Evans MD, Date Time Electronically viewed and signed by .Paul Evans MD, on 12/31/2016 23:13 .K/
[2017-01-01] VITALS (62 sets, daily range): BP systolic 81–129; BP diastolic 40–75; PULSE 62–80; RESP 11–26
[2017-01-01] MEDS: IPRATROPIUM (HFA) 12.9 GM INHALER INH SCH ×6 (01:12→21:04)
[2017-01-01] MEDS: ALBUTEROL HFA 8 GM INHALER INH SCH ×6 (01:12→21:04)
[2017-01-01] MEDS: PROPOFOL 100 ML IV SCH ×5 (03:08→22:23)
[2017-01-01 05:27] LABS: INR 1.24; PROTIME 15.7 Sec (12.2-14.2); PT RATIO 1.2
[2017-01-01 05:28] LABS: HEMATOCRIT 25.6 % (42.0-52.0); HEMOGLOBIN 8.5 g/dl (14.0-18.0); MEAN CORPUSCULAR HEMOGLOBIN 28.6 pg (29.0-33.0); MEAN CORPUSCULAR HGB CONC 33.3 g/dl (32.0-37.0); MEAN CORPUSCULAR VOLUME 85.8 fl (82.0-101.0); MEAN PLATELET VOLUME 11.5 fl (7.4-10.4); PARTIAL THROMBOPLASTIN TIME 38.3 Sec (25.0-35.0); RED BLOOD COUNT 2.98 10^6/ul (4.70-6.10); RED CELL DISTRIBUTION WIDTH 19.6 % (11.5-14.5); UNCORRECTED WBC 11.4 10^3/ul (4.8-10.8); WHITE BLOOD COUNT 11.4 10^3/ul (4.8-10.8)
[2017-01-01 05:31] LABS: CONDITION 1; LH ANALYZER COMMENTS 1; SUSPECT 1
[2017-01-01 05:37] LABS: PLATELET COUNT 18 10^3/UL (140-440)
[2017-01-01 05:38] LABS: MAGNESIUM 1.7 mg/dl (1.7-2.5); PHOSPHORUS 4.2 mg/dl (2.5-4.9)
[2017-01-01 05:55] LABS: ALBUMIN 2.5 g/dl (3.3-4.9)
[2017-01-01 05:56] LABS: POTASSIUM 3.8 mmol/L (3.5-5.1)
[2017-01-01 05:58] LABS: ALBUMIN/GLOBULIN RATIO 0.46; BILIRUBIN,INDIRECT 0.2 mg/dl (0-1.1); BILIRUBIN,TOTAL 0.2 mg/dl (0.2-1.3); CREATININE 1.43 mg/dl (0.61-1.24); TOTAL PROTEIN 7.9 g/dl (6.1-8.1)
[2017-01-01 05:59] LABS: CALCIUM 7.8 mg/dl (8.4-10.2)
[2017-01-01] MEDS: PANTOPRAZOLE 40 MG INJ IV SCH (06:05)
--- NOTE | 2017-01-01 08:13 | PN ---
DATE: 01/01/2017 HEMATOLOGY PROGRESS NOTE SUBJECTIVE: The patient remains intubated and on propofol. OBJECTIVE: VITAL SIGNS: Temperature 98.2, pulse 64 per minute and regular, respirations 24, blood pressure 97/ 55, and pulse oximetry is 100% with an FIO2 of 30%. SKIN: Scattered ecchymosis, no petechiae or rashes. HEENT: Endotracheal tube in place. No scleral icterus. CHEST: There are some bilateral rales. No rubs, no wheezes. HEART: Regular sinus rhythm, no S3, S4, or murmurs. No rubs. ABDOMEN: Soft, no masses, no ascites. EXTREMITIES: No clubbing, edema or cyanosis. No palpable cords or Homans' sign. NEUROLOGIC: The patient is on propofol. LABORATORY DATA: White count is 11,400, hemoglobin 8.5, hematocrit 25.6, platelet count 18,000. Pr otime is 15.7 seconds with INR of 1.24, PTT is 38.3 seconds. Sodium 144, potassium 3.8, creatinine 1.43 and BUN 30, calcium 7.8, albumin 2.5. ASSESSMENT: 1. Respiratory failure secondary to influenza, pneumonia. 2. Myelodysplastic syndrome. PLAN: We will continue to transfuse red blood cells p.r.n. As noted previously, would hold platele t transfusion unless there was clinical bleeding noted. No other active intervention for a myelodysplastic syndrome at this time. Dictated By: OPAL MOSES MD SR/NTS Conf#: [id number] DID#: [id number]
[2017-01-01] MEDS: LEVOFLOXACIN 500MG/D5W (PMX) 100 ML IVPB SCH (08:38)
--- NOTE | 2017-01-01 08:54 | CONS ---
Date/Time of Note Date/Time of Note DATE: 01/01/17 TIME: 08:46 Assessment/Plan Assessment/Plan Additional Assessment/Plan Ventilator settings; assist control 24, tidal volume 500, PEEP of 5, 30% FiO2. Assessment and recommendations; 1. Patient admitted with severe bilateral pneumonia leading to respiratory failure. 2. CML. 3. Severe thrombocytopenia without any overt bleeding. With stable hematocrit. 3. Renal insufficiency. Which is fairly stable. 4. Failure to be weaned off from mechanical ventilation despite numerous attempts. Continue current treatment for now ventilator settings have been adjusted assist -control rate has been dropped down to 14. Sedation will be stopped again to reassess mental status. Further weaning from ventilator will depend upon adequate mental status recovery. Meanwhile I would recommend starting the patient on tube feeding if he fails to be extubated today. Consultation Date/Type/Reason Admit Date/Time Dec 23, 2016 at 15:37 Initial Consult Date 12/24/16 Type of Consultation: Pulmonary/critical care Referring Provider: BEN COURTNEY MD 24 HR Interval Summary Free Text/Dictation Patient condition remains critical. Has failed numerous sedation vacation trials leading to severe agitation at one point patient self intubated over the weekend and required immediate reintubation. Currently the patient is still orally intubated on ventilator sedated. And does not appear to be in any distress. Exam/Review of Systems Vital Signs Vitals Vital Signs Date Time Temp Pulse Resp B/P Pulse Ox O2 Delivery O2 Flow Rate FiO2 01/01/17 08:30 64 24 105/57 100 Mechanical Ventilator 01/01/17 08:00 97.8 01/01/17 05:18 30 Intake and Output 12/31/16 12/31/16 01/01/17 15:00 23:00 07:00 Intake Total 1007.86 ml 514.84 ml 931.02 ml Output Total 955 ml 600 ml 350 ml Balance 52.86 ml -85.16 ml 581.02 ml Exam HEENT examination; supple neck, no JVD. No lymphadenopathy. Orally intubated. Pupils are pinpoint bilaterally. Bilateral intraocular lens implants are present. Chest examination; diminished but clear breath sounds bilaterally. S1-S2 audible, no murmurs. Regular rhythm. Abdomen examination; soft, nondistended, bowel sounds audible. No organomegaly. Extremity examination; no peripheral edema. MOTOR BOSS examination; patient is awake but is still under the sedative effect. Results Result Diagram: 01/01/17 0430 01/01/17 0430 Results 24 hrs Laboratory Tests Test 01/01/17 04:30 Activated Partial Thromboplast Time 38.3 H Alanine Aminotransferase (ALT/SGPT) 17 Albumin 2.5 L Albumin/Globulin Ratio 0.46 Alkaline Phosphatase 87 Anion Gap 15 Aspartate Amino Transf (AST/SGOT) 31 Basophils # Basophils % Blood Morphology Comment Blood Urea Nitrogen 20 Calcium Level 7.8 L Carbon Dioxide Level 26 Chloride Level 107 Creatinine 1.43 H Direct Bilirubin 0.00 Eosinophils # Eosinophils % Globulin 5.40 H Glucose Level 89 Hematocrit 25.6 L Hemoglobin 8.5 L INR International Normalized Ratio 1.24 Indirect Bilirubin 0.2 Lymphocytes # Lymphocytes % Magnesium Level 1.7 Mean Corpuscular Hemoglobin 28.6 L Mean Corpuscular Hemoglobin Concent 33.3 Mean Corpuscular Volume 85.8 Mean Platelet Volume 11.5 H Monocytes # Neutrophils # Neutrophils % Nucleated Red Blood Cells # Nucleated Red Blood Cells % Phosphorus Level 4.2 Platelet Count 18 *L Potassium Level 3.8 Prothrombin Time 15.7 H Prothrombin Time Ratio 1.2 Red Blood Count 2.98 L Red Cell Distribution Width 19.6 H Sodium Level 144 Total Bilirubin 0.2 Total Protein 7.9 White Blood Count 11.4 H Medications Medications Current Medications Ondansetron HCl (Zofran Inj) 4 mg Q6H PRN IV NAUSEA AND/OR VOMITING; Start 12/23 at 16:30 Nitroglycerin (Nitroglycerin (Sl Tab) 0.4 Mg) 1 tab Q5M PRN SL CHEST PAIN; Start 12/23/16 at 16:30 Acetaminophen (Tylenol Supp) 650 mg Q4H PRN [place] PAIN LEVEL 1-3 OR FEVER Last administered on 12/25/16 01:06; Admin Dose 650 MG; Start 12/23/16 at 16:30 Bisacodyl (Dulcolax) 5 mg DAILY PRN PO CONSTIPATION; Start 12/23/16 at 16:30 Pantoprazole 40 mg 40 mg DAILY@06 IV Last administered on 01/01/17 06:05; Admin Dose 40 MG; Start 12/24/16 at 06:00 Propofol 100 ml @ 2.346 mls/ hr Q12H IV Last administered on 01/01/17 08:38; Admin Dose 23.46 MLS/HR; Start 12/23/16 at 22:00 Levofloxacin/ Dextrose 100 ml @ 50 mls/hr Q48H IVPB Last administered on 08:38; Admin Dose 50 MLS/HR; Start 12/26/16 at 09:00 Vancomycin HCl/ Sodium Chloride (Vancocin/NS) 150 ml @ 75 mls/hr Q24H IVPB Last administered on 12/31/16 12:24; Admin Dose 75 MLS/HR; Start 12/26/16 at 12: 00 Vancomycin HCl PER PHARMACY DOSING NOTE XX ; Start 12/26/16 at 11:00 Potassium Chloride 10 meq/ Dextrose 1,005 ml @ 70 mls/hr [id number] IV Last administered on 12/31/16 23:09; Admin Dose 70 MLS/HR; Start 12/27/16 at 09:00 Meropenem 100 ml @ 200 mls/hr Q12 IVPB Last administered on 12/30/16 08:26; Admin Dose 200 MLS/HR; Start 12/27/16 at 14:00; Status Future Hold Fluconazole/ Sodium Chloride 50 ml @ 50 mls/hr Q24H IVPB Last administered on 14:15; Admin Dose 50 MLS/HR; Start 12/27/16 at 13:00 Fentanyl (Sublimaze) 100 ml @ 2.5 mls/hr TITRATE IV Last administered on 15:28; Admin Dose 2.5 MLS/HR; Start 12/31/16 at 13:00 MYESHA OLIVER Jan 01, 2017 08:54
--- NOTE | 2017-01-01 09:11 | CONS ---
Date/Time of Note Date/Time of Note DATE: 01/01/17 TIME: 09:08 Assessment/Plan Assessment/Plan Additional Assessment/Plan 1. Acute kidney injury, likely secondary to acute tubular necrosis in the setting of sepsis.-improved 2. Acute hypoxemic respiratory failure, multifactorial, secondary to sepsis and secondary to pulmonary condition. 3. Acute pulmonary edema with influenza pneumonia. 4. History of congestive heart failure with diastolic heart failure. 5. History of chronic obstructive pulmonary disease. 6. History of gastroesophageal reflux disease. 7. History of smoking. 8. 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 9. Hypomagnesemia- s/p replcaement 3 gram on 12/31/16 PLAN: making good urine, renal function has been normal continue IVF and Free water- will decrease free water rate IV abx as per ID mag and Na normal - decrease D5W to 50 cc/hr will follow up this critical care note took greater than 45 min to complete Consultation Date/Type/Reason Admit Date/Time Dec 23, 2016 at 15:37 Initial Consult Date 12/23/16 Type of Consultation: NEPHROLOGY Referring Provider: BEN COURTNEY MD 24 HR Interval Summary Free Text/Dictation Cr 1.43, U/o 1.9 liter, BP stable Exam/Review of Systems Vital Signs Vitals Vital Signs Date Time Temp Pulse Resp B/P Pulse Ox O2 Delivery O2 Flow Rate FiO2 01/01/17 08:30 64 24 105/57 100 Mechanical Ventilator 01/01/17 08:00 97.8 01/01/17 05:18 30 Intake and Output 12/31/16 12/31/16 01/01/17 15:00 23:00 07:00 Intake Total 1007.86 ml 514.84 ml 931.02 ml Output Total 955 ml 600 ml 350 ml Balance 52.86 ml -85.16 ml 581.02 ml Results Result Diagram: 01/01/17 0430 01/01/17 0430 Results 24 hrs Laboratory Tests Test 01/01/17 04:30 Activated Partial Thromboplast Time 38.3 H Alanine Aminotransferase (ALT/SGPT) 17 Albumin 2.5 L Albumin/Globulin Ratio 0.46 Alkaline Phosphatase 87 Anion Gap 15 Aspartate Amino Transf (AST/SGOT) 31 Basophils # Basophils % Blood Morphology Comment Blood Urea Nitrogen 20 Calcium Level 7.8 L Carbon Dioxide Level 26 Chloride Level 107 Creatinine 1.43 H Direct Bilirubin 0.00 Eosinophils # Eosinophils % Globulin 5.40 H Glucose Level 89 Hematocrit 25.6 L Hemoglobin 8.5 L INR International Normalized Ratio 1.24 Indirect Bilirubin 0.2 Lymphocytes # Lymphocytes % Magnesium Level 1.7 Mean Corpuscular Hemoglobin 28.6 L Mean Corpuscular Hemoglobin Concent 33.3 Mean Corpuscular Volume 85.8 Mean Platelet Volume 11.5 H Monocytes # Neutrophils # Neutrophils % Nucleated Red Blood Cells # Nucleated Red Blood Cells % Phosphorus Level 4.2 Platelet Count 18 *L Potassium Level 3.8 Prothrombin Time 15.7 H Prothrombin Time Ratio 1.2 Red Blood Count 2.98 L Red Cell Distribution Width 19.6 H Sodium Level 144 Total Bilirubin 0.2 Total Protein 7.9 White Blood Count 11.4 H Medications Medications Current Medications Ondansetron HCl (Zofran Inj) 4 mg Q6H PRN IV NAUSEA AND/OR VOMITING; Start 12/23 at 16:30 Nitroglycerin (Nitroglycerin (Sl Tab) 0.4 Mg) 1 tab Q5M PRN SL CHEST PAIN; Start 12/23/16 at 16:30 Acetaminophen (Tylenol Supp) 650 mg Q4H PRN [place] PAIN LEVEL 1-3 OR FEVER Last administered on 12/25/16 01:06; Admin Dose 650 MG; Start 12/23/16 at 16:30 Bisacodyl (Dulcolax) 5 mg DAILY PRN PO CONSTIPATION; Start 12/23/16 at 16:30 Pantoprazole 40 mg 40 mg DAILY@06 IV Last administered on 01/01/17 06:05; Admin Dose 40 MG; Start 12/24/16 at 06:00 Propofol 100 ml @ 2.346 mls/ hr Q12H IV Last administered on 01/01/17 08:38; Admin Dose 23.46 MLS/HR; Start 12/23/16 at 22:00 Levofloxacin/ Dextrose 100 ml @ 50 mls/hr Q48H IVPB Last administered on 08:38; Admin Dose 50 MLS/HR; Start 12/26/16 at 09:00 Vancomycin HCl/ Sodium Chloride (Vancocin/NS) 150 ml @ 75 mls/hr Q24H IVPB Last administered on 12/31/16 12:24; Admin Dose 75 MLS/HR; Start 12/26/16 at 12: 00 Vancomycin HCl PER PHARMACY DOSING NOTE XX ; Start 12/26/16 at 11:00 Potassium Chloride 10 meq/ Dextrose 1,005 ml @ 70 mls/hr [id number] IV Last administered on 12/31/16 23:09; Admin Dose 70 MLS/HR; Start 12/27/16 at 09:00 Meropenem 100 ml @ 200 mls/hr Q12 IVPB Last administered on 12/30/16 08:26; Admin Dose 200 MLS/HR; Start 12/27/16 at 14:00; Status Future Hold Fluconazole/ Sodium Chloride 50 ml @ 50 mls/hr Q24H IVPB Last administered on 14:15; Admin Dose 50 MLS/HR; Start 12/27/16 at 13:00 Fentanyl (Sublimaze) 100 ml @ 2.5 mls/hr TITRATE IV Last administered on 15:28; Admin Dose 2.5 MLS/HR; Start 12/31/16 at 13:00 GILL PEREIRA MD Jan 01, 2017 09:11
[2017-01-01 09:30] LABS: ANISOCYTOSIS 2+; EOSINOPHILS # 0.3 10^3/ul (0.0-0.5); HYPOCHROMASIA 1+; LYMPHOCYTES # 3.4 10^3/ul (0.8-2.9); MONOCYTE # 6.6 10^3/ul (0.3-0.9); NEUTROPHIL # 0.3 10^3/ul (1.6-7.5); PLATELET ESTIMATE PLT APPEAR DECREASED
--- NOTE | 2017-01-01 10:00 | CONS ---
Date/Time of Note Date/Time of Note DATE: 01/01/17 TIME: 09:58 Assessment/Plan Assessment/Plan Chief Complaint/Hosp Course IMPRESSION: 1. 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 Cardiomyopathy with decreased left ventricular ejection fraction, last being approximately 45% to 50% by echo 11/2016. 3. Hypotension, borderline. 4. Influenza positive. 5. History of chronic myelogenous leukemia. 6. Renal failure-slowly improving. 7. Thrombocytopenia, severe. 8. Anemia. 9. Leukocytosis. Recc: -Tele -serial ecg's -Continue abx's and f/u cx data -Follow volume status closely -continue tamiflu -Wean vent as tolerated -Follow volume status closely Problems: Consultation Date/Type/Reason Admit Date/Time Dec 23, 2016 at 15:37 Initial Consult Date 12/24/16 Type of Consultation: Cardiology Reason for Consultation cardiomyopathy Referring Provider: BEN COURTNEY MD Exam/Review of Systems Vital Signs Vitals Vital Signs Date Time Temp Pulse Resp B/P Pulse Ox O2 Delivery O2 Flow Rate FiO2 01/01/17 08:30 64 24 105/57 100 Mechanical Ventilator 01/01/17 08:00 97.8 01/01/17 05:18 30 Intake and Output 12/31/16 12/31/16 01/01/17 15:00 23:00 07:00 Intake Total 1007.86 ml 514.84 ml 931.02 ml Output Total 955 ml 600 ml 350 ml Balance 52.86 ml -85.16 ml 581.02 ml Exam Review of Systems: CONSTITUTIONAL: No fevers, chills. PULMONARY: intubated CARDIOVASCULAR: No obvious chest pain/palpitations GASTROINTESTINAL: No nausea/vomiting. GENITOURINARY: No hematuria/dysuria. MUSCULOSKELETAL: No obvious myagias/arthalgias. PSYCHIATRIC: No docuemented depression. NEUROLOGIC: sedated Constitutional: other (sedated) ENMT: intubated Neck: jvd (9 cm water), supple Respiratory: diminished breath sounds (at bases/B) Cardiovascular: regular rate and rhythm Gastrointestinal: non-tender, soft Musculoskeletal: muscle tone (normal) Extremities: edema (none) Neurological: other (sedated) Results Result Diagram: 01/01/17 0430 01/01/17 0430 Results 24 hrs Laboratory Tests Test 01/01/17 04:30 Activated Partial Thromboplast Time 38.3 H Alanine Aminotransferase (ALT/SGPT) 17 Albumin 2.5 L Albumin/Globulin Ratio 0.46 Alkaline Phosphatase 87 Anion Gap 15 Anisocytosis 2+ Aspartate Amino Transf (AST/SGOT) 31 Basophils # Basophils % Blast Cells % 3.0 H Blastocytes # 0.3 Blood Morphology Comment Blood Urea Nitrogen 20 Calcium Level 7.8 L Carbon Dioxide Level 26 Chloride Level 107 Creatinine 1.43 H Differential Comment MANUAL DIFF Direct Bilirubin 0.00 Eosinophils # 0.3 Eosinophils % 3.0 Globulin 5.40 H Glucose Level 89 Hematocrit 25.6 L Hemoglobin 8.5 L Hypochromasia 1+ INR International Normalized Ratio 1.24 Indirect Bilirubin 0.2 Lymphocytes # 3.4 H Lymphocytes % 30.0 Magnesium Level 1.7 Mean Corpuscular Hemoglobin 28.6 L Mean Corpuscular Hemoglobin Concent 33.3 Mean Corpuscular Volume 85.8 Mean Platelet Volume 11.5 H Metamyelocytes # 0.1 Metamyelocytes % 1.0 H Monocytes # 6.6 H Monocytes % 58.0 H Neutrophils # 0.3 L Neutrophils % 3.0 L Nucleated Red Blood Cells # Nucleated Red Blood Cells % Phosphorus Level 4.2 Platelet Count 18 *L Platelet Estimate PLT APPEAR DECREASED Potassium Level 3.8 Promyelocytes # 0.2 Promyelocytes % 2.0 H Prothrombin Time 15.7 H Prothrombin Time Ratio 1.2 Red Blood Count 2.98 L Red Cell Distribution Width 19.6 H Sodium Level 144 Total Bilirubin 0.2 Total Protein 7.9 White Blood Count 11.4 H Medications Medications Current Medications Ondansetron HCl (Zofran Inj) 4 mg Q6H PRN IV NAUSEA AND/OR VOMITING; Start 12/23 at 16:30 Nitroglycerin (Nitroglycerin (Sl Tab) 0.4 Mg) 1 tab Q5M PRN SL CHEST PAIN; Start 12/23/16 at 16:30 Acetaminophen (Tylenol Supp) 650 mg Q4H PRN [place] PAIN LEVEL 1-3 OR FEVER Last administered on 12/25/16 01:06; Admin Dose 650 MG; Start 12/23/16 at 16:30 Bisacodyl (Dulcolax) 5 mg DAILY PRN PO CONSTIPATION; Start 12/23/16 at 16:30 Pantoprazole 40 mg 40 mg DAILY@06 IV Last administered on 01/01/17 06:05; Admin Dose 40 MG; Start 12/24/16 at 06:00 Propofol 100 ml @ 2.346 mls/ hr Q12H IV Last administered on 01/01/17 08:38; Admin Dose 23.46 MLS/HR; Start 12/23/16 at 22:00 Levofloxacin/ Dextrose 100 ml @ 50 mls/hr Q48H IVPB Last administered on 08:38; Admin Dose 50 MLS/HR; Start 12/26/16 at 09:00 Vancomycin HCl/ Sodium Chloride (Vancocin/NS) 150 ml @ 75 mls/hr Q24H IVPB Last administered on 12/31/16 12:24; Admin Dose 75 MLS/HR; Start 12/26/16 at 12: 00 Vancomycin HCl PER PHARMACY DOSING NOTE XX ; Start 12/26/16 at 11:00 Potassium Chloride 10 meq/ Dextrose 1,005 ml @ 50 mls/hr Q20H6M IV Last administered on 12/31/16 23:09; Admin Dose 70 MLS/HR; Start 12/27/16 at 09:00 Meropenem 100 ml @ 200 mls/hr Q12 IVPB Last administered on 12/30/16 08:26; Admin Dose 200 MLS/HR; Start 12/27/16 at 14:00; Status Future Hold Fluconazole/ Sodium Chloride 50 ml @ 50 mls/hr Q24H IVPB Last administered on 14:15; Admin Dose 50 MLS/HR; Start 12/27/16 at 13:00 Fentanyl (Sublimaze) 100 ml @ 2.5 mls/hr TITRATE IV Last administered on 15:28; Admin Dose 2.5 MLS/HR; Start 12/31/16 at 13:00 MILENA VELA Jan 01, 2017 10:00
[2017-01-01] MEDS ORDERED: MEROPENEM 500 MG/100 ML (PMX) 100 ML IVPB SCH (11:30)
--- NOTE | 2017-01-01 11:42 | PN ---
DATE: 01/01/2017 SUBJECTIVE: No acute changes overnight. The patient is lying comfortably in bed. VITAL SIGNS: Afebrile, temperature 97.8, pulse 64, respirations 24, blood pressure 105/57, saturation 100% on the vent. LABORATORY DATA: WBC 11.4, H and H 8.5 and 25.6, platelets 18. BUN 20, creatinine 1.43. MICROBIOLOGY: Sputum culture sent on 12/30/2016 growing staph species. INDWELLINGS: Endotracheal tube, NG tube, Leyva catheter, peripheral IV. ANTIMICROBIALS: 1. Fluconazole. 2. Vancomycin. 3. Levaquin. 4. Meropenem--> on hold. PHYSICAL EXAMINATION: GENERAL: Fragile, elderly man who is in no distress. HEENT: Head atraumatic, normocephalic. Sclerae anicteric. Buccal mucosa dry. NECK: Supple, trachea midline. CHEST: Rise symmetrical. Breath sounds diminished to bases. HEART: S1, S2. ABDOMEN: Soft, bowel sounds present. EXTREMITIES: Without cyanosis. ASSESSMENT: 1. Severe sepsis status post shock. 2. Acute respiratory failure secondary to bilateral pneumonia, unable to be extubated. 3. Status post influenza A virus. 4. Myelodysplasia, oncology follows. 5. Acute renal failure. PLAN: The patient remains stable. He is being followed by multiple consultants. We will dc Levaquin, restart Merrem, repeat nasopharyngeal swab for influenza==> I ordered it 2 days ago, and it was cancelled for some reason. Continue vent management as per pulmonary team. Dictated By: DARLENE CARTAGENA [employer]ING [employer]ER for [employer] GOME[employer]/RADHA Conf#: [id number] DID#: [id number] MTDD
[2017-01-01] MEDS: FENTAnyl (DRIP) 1000 mcg/100mL 100 ML IV SCH (11:57)
--- NOTE | 2017-01-01 12:23 | PN ---
Date/Time of Note Date/Time of Note DATE: 01/01/17 TIME: 12:18 Assessment/Plan VTE Prophylaxis VTE Prophylaxis Intervention: contraindicated Lines/Catheters IV Catheter Type (from Nrs): Peripheral IV Urinary Cath still in place: Yes Reason Cath still needed: urinary retention Assessment/Plan Chief Complaint/Hosp Course Assessment/Plan: 71 yo male with a past medical history of CML on chemotherapy, MDS, GERD, COPD, anemia of chronic disease, who presents with acute shortness of breath sec to + influenza. 1. Sepsis - 2/2 to Influenza Pneumonia with superimposed healthcare-associated pneumonia as well as possible aspiration - pt completed tamiflu - continue IV antibiotics Meropenem (restarted today) + Fluconazole - f/u repeat Flu A test - f/u ID rec's. 2. Acute hypoxemic respiratory failure - still intubated. - wean as tolerated - f/u pulm rec's 3. Severe thrombocytopenia - sec to CML + PNA. 18 today. HIT antibodies was negative. 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 4. Acute on chronic renal failure - 2/2 to sepsis - resolving now. - continue IVF - renally adjust medications, avoid nephrotoxins, appreciate renal consult 5. Anemia - of chronic disease -H/H presently low nL range - transfuse as per hem/onc, ferrilicit 6. CML/MDS - per Heme/Onc patient has been treated with azacytadine and lenalidomide with little effect. - continue with hem/onc recs 7. CHF with diastolic heart failure - consult cardiology, type II NSTEMI ? - demand ischemia, recent ECHO EF 45%, diastolic dysfunction 8. COPD - see #1 9. GERD - continue with IV protonix 10. Smoking abuse - advised patient on cessation 11. Hypernatremia - dehydration vs volume depletion vs other - resolved. - continue with free water and D5W as per nephro - improving 12. GI ppx - protonix 13. DVT ppx - contraindicated for anticoagulation - monitor acute changes dispo - f/u recs, monitor changes, prognosis is guarded/poor - f/u palliative care consult - if no improvement, code status needs to be reassessed Critical care time spent today = 45 min. Problems: Subjective 24 Hr Interval Summary Free Text/Dictation Pt still intubated. Exam/Review of Systems Vital Signs Vitals Vital Signs Date Time Temp Pulse Resp B/P Pulse Ox O2 Delivery O2 Flow Rate FiO2 01/01/17 08:30 64 24 105/57 100 Mechanical Ventilator 01/01/17 08:00 97.8 01/01/17 05:18 30 Intake and Output 12/31/16 12/31/16 01/01/17 15:00 23:00 07:00 Intake Total 1007.86 ml 514.84 ml 931.02 ml Output Total 955 ml 600 ml 350 ml Balance 52.86 ml -85.16 ml 581.02 ml Exam Gen [place]: intubated/sedated HEENT: NC/AT, PERRLA, ETT NECK: supple, no thyromegaly THORAX: symmetrical, no obvious deformities CV: S1S2, no M/G/R Lungs: coarse breath sounds throughout all lung masters, diminished at the bases , with end expiratory wheezing Abd: soft, NT/ND, +BS, no rebound, no guarding, neg HSM, scaphoid EXT: 1+ edema, no ecchymosis, no clubbing, FROM, muscle wasting noted Neuro: intubated/sedated Psych: cannot assess Skin: scattered petechiae Results Result Diagram: 01/01/17 0430 01/01/17 0430 Results 24 hrs Laboratory Tests Test 01/01/17 04:30 01/01/17 11:02 Activated Partial Thromboplast Time 38.3 H Alanine Aminotransferase (ALT/SGPT) 17 Albumin 2.5 L Albumin/Globulin Ratio 0.46 Alkaline Phosphatase 87 Anion Gap 15 Anisocytosis 2+ Aspartate Amino Transf (AST/SGOT) 31 Basophils # Basophils % Blast Cells % 3.0 H Blastocytes # 0.3 Blood Morphology Comment Blood Urea Nitrogen 20 Calcium Level 7.8 L Carbon Dioxide Level 26 Chloride Level 107 Creatinine 1.43 H Differential Comment MANUAL DIFF Direct Bilirubin 0.00 Eosinophils # 0.3 Eosinophils % 3.0 Globulin 5.40 H Glucose Level 89 Hematocrit 25.6 L Hemoglobin 8.5 L Hypochromasia 1+ INR International Normalized Ratio 1.24 Indirect Bilirubin 0.2 Lymphocytes # 3.4 H Lymphocytes % 30.0 Magnesium Level 1.7 Mean Corpuscular Hemoglobin 28.6 L Mean Corpuscular Hemoglobin Concent 33.3 Mean Corpuscular Volume 85.8 Mean Platelet Volume 11.5 H Metamyelocytes # 0.1 Metamyelocytes % 1.0 H Monocytes # 6.6 H Monocytes % 58.0 H Neutrophils # 0.3 L Neutrophils % 3.0 L Nucleated Red Blood Cells # Nucleated Red Blood Cells % Phosphorus Level 4.2 Platelet Count 18 *L Platelet Estimate PLT APPEAR DECREASED Potassium Level 3.8 Promyelocytes # 0.2 Promyelocytes % 2.0 H Prothrombin Time 15.7 H Prothrombin Time Ratio 1.2 Red Blood Count 2.98 L Red Cell Distribution Width 19.6 H Sodium Level 144 Total Bilirubin 0.2 Total Protein 7.9 White Blood Count 11.4 H Lab Scanned Report REFERENCE LAB Medications Medications Current Medications Ondansetron HCl (Zofran Inj) 4 mg Q6H PRN IV NAUSEA AND/OR VOMITING; Start 12/23 at 16:30 Nitroglycerin (Nitroglycerin (Sl Tab) 0.4 Mg) 1 tab Q5M PRN SL CHEST PAIN; Start 12/23/16 at 16:30 Acetaminophen (Tylenol Supp) 650 mg Q4H PRN [place] PAIN LEVEL 1-3 OR FEVER Last administered on 12/25/16 01:06; Admin Dose 650 MG; Start 12/23/16 at 16:30 Bisacodyl (Dulcolax) 5 mg DAILY PRN PO CONSTIPATION; Start 12/23/16 at 16:30 Pantoprazole 40 mg 40 mg DAILY@06 IV Last administered on 01/01/17 06:05; Admin Dose 40 MG; Start 12/24/16 at 06:00 Propofol 100 ml @ 2.346 mls/ hr Q12H IV Last administered on 01/01/17 08:38; Admin Dose 23.46 MLS/HR; Start 12/23/16 at 22:00 Potassium Chloride 10 meq/ Dextrose 1,005 ml @ 50 mls/hr Q20H6M IV Last administered on 12/31/16 23:09; Admin Dose 70 MLS/HR; Start 12/27/16 at 09:00 Fluconazole/ Sodium Chloride 50 ml @ 50 mls/hr Q24H IVPB Last administered on 14:15; Admin Dose 50 MLS/HR; Start 12/27/16 at 13:00 Fentanyl 100 ml @ 2.5 mls/hr TITRATE IV Last administered on 01/01/17 11:57; Admin Dose 5 MLS/HR; Start 12/31/16 at 13:00 Meropenem (Merrem 1 Gm/100 ml (Pmx)) 100 ml @ 200 mls/hr Q12 IVPB ; Start 01/01 at 12:30 ANA RATLIFF Jan 01, 2017 12:23
[2017-01-01] MEDS: MEROPENEM 1 GM/100 ML (PMX) 100 ML IVPB SCH ×2 (12:29→20:20)
[2017-01-01] MEDS: VANCOMYCIN 750 MG in SOD CHLORIDE 0.9% 150 ML IVPB SCH (14:04)
[2017-01-01] MEDS: FLUCONAZOLE 100 MG/NS (PMX) 50 ML IVPB SCH (14:07)
[2017-01-01] MEDS: POTASSIUM CHLORIDE 10 MEQ in DEXTROSE 5% 1,000 ML IV SCH (20:20)
[2017-01-01 21:27] LABS: AADO2 Arterial 74.3 mmHg (7.0-24.0); Allen Test ACCEPTAB; Arterial Base Excess -0.8 mmol/L (-3.0-3); Arterial COHb 0.3 % (0.0-3.0); Arterial Fraction of Oxyhgb 95.9 % (93.0-99.0); Arterial HCO3 23.9 mmol/L (22.0-26.0); Arterial MetHb 0.3 % (0.0-1.5); Arterial Total Hemglobin 8.9 g/dl (12.0-18.0); MODE VENT - AC
[2017-01-01] MEDS ORDERED: LORAZEPAM 2 MG INJ IV ONE (23:00)
[2017-01-02] VITALS (72 sets, daily range): BP systolic 82–137; BP diastolic 47–85; PULSE 63–96; RESP 11–35
[2017-01-02] MEDS: IPRATROPIUM (HFA) 12.9 GM INHALER INH SCH ×6 (01:47→20:50)
[2017-01-02] MEDS: ALBUTEROL HFA 8 GM INHALER INH SCH ×6 (01:47→20:50)
[2017-01-02] MEDS: FENTAnyl (DRIP) 1000 mcg/100mL 100 ML IV SCH (03:42)
[2017-01-02] MEDS: PROPOFOL 100 ML IV SCH ×3 (03:49→18:48)
[2017-01-02 06:26] LABS: HEMATOCRIT 25.1 % (42.0-52.0); HEMOGLOBIN 8.4 g/dl (14.0-18.0); MEAN CORPUSCULAR HEMOGLOBIN 28.1 pg (29.0-33.0); MEAN CORPUSCULAR HGB CONC 33.5 g/dl (32.0-37.0); MEAN CORPUSCULAR VOLUME 83.9 fl (82.0-101.0); MEAN PLATELET VOLUME 11.5 fl (7.4-10.4); RED BLOOD COUNT 2.99 10^6/ul (4.70-6.10); RED CELL DISTRIBUTION WIDTH 19.6 % (11.5-14.5); UNCORRECTED WBC 12.3 10^3/ul (4.8-10.8); WHITE BLOOD COUNT 12.3 10^3/ul (4.8-10.8)
[2017-01-02 06:32] LABS: POTASSIUM 3.7 mmol/L (3.5-5.1)
[2017-01-02 06:34] LABS: CREATININE 1.33 mg/dl (0.61-1.24)
[2017-01-02 06:35] LABS: CALCIUM 7.9 mg/dl (8.4-10.2)
[2017-01-02 06:43] LABS: CONDITION 1; LH ANALYZER COMMENTS 1; PLATELET COUNT 16 10^3/UL (140-440); SUSPECT 1
[2017-01-02] MEDS: PANTOPRAZOLE 40 MG INJ IV SCH (06:49)
--- NOTE | 2017-01-02 08:43 | CONS ---
Date/Time of Note Date/Time of Note DATE: 01/02/17 TIME: 08:34 Assessment/Plan Assessment/Plan Additional Assessment/Plan 1. Acute kidney injury, likely secondary to acute tubular necrosis in the setting of sepsis.-improved 2. Acute hypoxemic respiratory failure, multifactorial, secondary to sepsis and secondary to pulmonary condition. 3. Acute pulmonary edema with influenza pneumonia. 4. History of congestive heart failure with diastolic heart failure. 5. History of chronic obstructive pulmonary disease. 6. History of gastroesophageal reflux disease. 7. History of smoking. 8. 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 9. Hypomagnesemia- s/p replacement 3 gram on 12/31/16 PLAN: making good urine, renal function has been improved d/c IVF D5W, start 1/2 Ns at 50cc/hr, consider starting tube feeding if continues to be full code and ok with other specialist,Dietary consult to get TF recommendations IV abx as per ID mag and Na normal will follow up this critical care note took greater than 45 min to complete Consultation Date/Type/Reason Admit Date/Time Dec 23, 2016 at 15:37 Initial Consult Date 12/23/16 Type of Consultation: NEPHROLOGY Referring Provider: BEN COURTNEY MD 24 HR Interval Summary Free Text/Dictation Cr better 1.33, Good urine output, no acute events, Remains on vent, on dopamine gtt, Exam/Review of Systems Vital Signs Vitals Vital Signs Date Time Temp Pulse Resp B/P Pulse Ox O2 Delivery O2 Flow Rate FiO2 01/02/17 07:30 68 12 108/61 01/02/17 06:00 100 Mechanical Ventilator 01/02/17 05:40 30 01/02/17 03:00 97.5 Intake and Output 01/01/17 01/01/17 01/02/17 15:00 23:00 07:00 Intake Total 947.68 ml 527.78 ml 770.3 ml Output Total 680 ml 925 ml 875 ml Balance 267.68 ml -397.22 ml -104.7 ml Results Result Diagram: 01/02/17 0525 01/02/17 0525 Results 24 hrs Laboratory Tests Test 01/01/17 11:02 01/01/17 20:36 01/01/17 21:00 01/02/17 05:25 Lab Scanned Report REFERENCE LAB Bedside Glucose 118 Arterial Blood HCO3 23.9 Arterial Blood Base Excess -0.8 Arterial Blood Oxygen Saturation 96.5 Dar Test ACCEPTAB Arterial Blood Gas Puncture Site Left Radial Arterial Blood Carboxyhemoglobin 0.3 Arterial Blood Date Drawn 01/01/2017 9:00:57 PM Arterial Blood Methemoglobin 0.3 Arterial Blood pCO2 (Temp correct) 39.5 Arterial Blood pH (Temp corrected) 7.400 Arterial Blood pO2 (Temp corrected) 93.2 Blood Gas A-a O2 Differential 74.3 H Blood Gas Actual Respiration Rate 17 Blood Gas Low PEEP Setting 5.0 Blood Gas Modality VENT - AC Blood Gas Notified Time 01/01/2017 9:27:32 PM Blood Gas Notified Whom MA Blood Gas Respiration Rate 14.0 Blood Gas Specimen Source Blood arterial Blood Gas Temperature 37.0 Blood Gas Tidal Volume 500.0 FiO2 30.0 Oxyhemoglobin Percent 95.9 Total Hemoglobin 8.9 L Anion Gap 12 Basophils # Pending Basophils % Pending Blood Morphology Comment Blood Urea Nitrogen 16 Calcium Level 7.9 L Carbon Dioxide Level 25 Chloride Level 106 Creatinine 1.33 H Eosinophils # Pending Eosinophils % Pending Glucose Level 84 Hematocrit 25.1 L Hemoglobin 8.4 L Lymphocytes # Pending Lymphocytes % Pending Mean Corpuscular Hemoglobin 28.1 L Mean Corpuscular Hemoglobin Concent 33.5 Mean Corpuscular Volume 83.9 Mean Platelet Volume 11.5 H Monocytes # Pending Monocytes % Pending Neutrophils # Pending Neutrophils % Pending Nucleated Red Blood Cells # Pending Nucleated Red Blood Cells % Pending Platelet Count 16 *L Potassium Level 3.7 Red Blood Count 2.99 L Red Cell Distribution Width 19.6 H Sodium Level 139 White Blood Count 12.3 H Medications Medications Current Medications Ondansetron HCl (Zofran Inj) 4 mg Q6H PRN IV NAUSEA AND/OR VOMITING; Start 12/23 at 16:30 Nitroglycerin (Nitroglycerin (Sl Tab) 0.4 Mg) 1 tab Q5M PRN [place] CHEST PAIN; Start 12/23/16 at 16:30 Acetaminophen (Tylenol Supp) 650 mg Q4H PRN [place] PAIN LEVEL 1-3 OR FEVER Last administered on 12/25/16t 01:06; Admin Dose 650 MG; Start 12/23/16 at 16:30 Bisacodyl (Dulcolax) 5 mg DAILY PRN PO CONSTIPATION; Start 12/23/16 at 16:30 Pantoprazole 40 mg 40 mg DAILY@06 IV Last administered on 01/02/17 06:49; Admin Dose 40 MG; Start 12/24/16 at 06:00 Propofol 100 ml @ 2.346 mls/ hr Q12H IV Last administered on 01/02/17 03:49; Admin Dose 18.768 MLS/HR; Start 12/23/16 at 22:00 Vancomycin HCl/ Sodium Chloride (Vancocin/NS) 150 ml @ 75 mls/hr Q24H IVPB Last administered on 01/01/17 14:04; Admin Dose 75 MLS/HR; Start 12/26/16 at 12: 00 Vancomycin HCl PER PHARMACY DOSING NOTE XX ; Start 12/26/16 at 11:00 Potassium Chloride 10 meq/ Dextrose 1,005 ml @ 50 mls/hr Q20H6M IV Last administered on 01/01/17 20:20; Admin Dose 50 MLS/HR; Start 12/27/16 at 09:00 Fluconazole/ Sodium Chloride 50 ml @ 50 mls/hr Q24H IVPB Last administered on 14:07; Admin Dose 50 MLS/HR; Start 12/27/16 at 13:00 Fentanyl 100 ml @ 2.5 mls/hr TITRATE IV Last administered on 01/02/17 03:42; Admin Dose 3 MLS/HR; Start 12/31/16 at 13:00 Meropenem (Merrem 1 Gm/100 ml (Pmx)) 100 ml @ 200 mls/hr Q12 IVPB Last administered on 01/01/17 20:20; Admin Dose 200 MLS/HR; Start 01/01/17 at 12:30 Lorazepam (Ativan) 1 mg Q1HWA PRN IV AGITATION; Start 01/01/17 at 23:00 GILL PEREIRA MD Jan 02, 2017 08:42
--- NOTE | 2017-01-02 09:08 | CONS ---
Date/Time of Note Date/Time of Note DATE: 01/02/17 TIME: 09:05 Assessment/Plan Assessment/Plan Additional Assessment/Plan Ventilator; assist control of 14, tidal volume 500, PEEP of 5, 30% FiO2. Assessment and recommendations; 1. Patient admitted with severe bilateral pneumonia leading to respiratory failure. 2. 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 3. Persistent poor mental status precluding weaning from mechanical ventilation. 4. Renal insufficiency with stable serum creatinine. Increase propofol dosing for better sedation and decrease fentanyl drip at 25 mics per hour. Due to current supportive care. Prognosis remains poor. Tube feeding to be resumed. Consultation Date/Type/Reason Admit Date/Time Dec 23, 2016 at 15:37 Initial Consult Date 12/24/16 Type of Consultation: Pulmonary/critical care Referring Provider: BEN COURTNEY MD 24 HR Interval Summary Free Text/Dictation Patient's condition remains critical. Still requiring full ventilator support. Patient is unable to be weaned off from continuous sedation because of severe agitation and and patient starts attempting to pull various lines and catheters. General examination; elderly male, or intubated. Patient is awake and is trying to pull various lines and catheters. Exam/Review of Systems Vital Signs Vitals Vital Signs Date Time Temp Pulse Resp B/P Pulse Ox O2 Delivery O2 Flow Rate FiO2 01/02/17 07:30 68 12 108/61 01/02/17 06:00 100 Mechanical Ventilator 01/02/17 05:40 30 01/02/17 03:00 97.5 Intake and Output 01/01/17 01/01/17 01/02/17 15:00 23:00 07:00 Intake Total 947.68 ml 527.78 ml 770.3 ml Output Total 680 ml 925 ml 875 ml Balance 267.68 ml -397.22 ml -104.7 ml Exam HEENT examination; supple neck, no JVD. No lymphadenopathy. Or intubated. Pupils are midsize and reactive to light. No neck masses. Chest examination; diminished but clear breath sounds. S1-S2 audible, no murmurs. Regular rhythm. Abdomen examination; soft, no organomegaly. Bowel sounds audible. Extremity examination; no peripheral edema. Pulses 1+ bilaterally. [employer] examination; patient is awake and is under mild sedation and is trying to get out of bed. Results Result Diagram: 01/02/17 0525 01/02/17 0525 Results 24 hrs Laboratory Tests Test 01/01/17 11:02 01/01/17 20:36 01/01/17 21:00 01/02/17 05:25 Lab Scanned Report REFERENCE LAB Bedside Glucose 118 Arterial Blood HCO3 23.9 Arterial Blood Base Excess -0.8 Arterial Blood Oxygen Saturation 96.5 Dar Test ACCEPTAB Arterial Blood Gas Puncture Site Left Radial Arterial Blood Carboxyhemoglobin 0.3 Arterial Blood Date Drawn 01/01/2017 9:00:57 PM Arterial Blood Methemoglobin 0.3 Arterial Blood pCO2 (Temp correct) 39.5 Arterial Blood pH (Temp corrected) 7.400 Arterial Blood pO2 (Temp corrected) 93.2 Blood Gas A-a O2 Differential 74.3 H Blood Gas Actual Respiration Rate 17 Blood Gas Low PEEP Setting 5.0 Blood Gas Modality VENT - AC Blood Gas Notified Time 01/01/2017 9:27:32 PM Blood Gas Notified Whom MA Blood Gas Respiration Rate 14.0 Blood Gas Specimen Source Blood arterial Blood Gas Temperature 37.0 Blood Gas Tidal Volume 500.0 FiO2 30.0 Oxyhemoglobin Percent 95.9 Total Hemoglobin 8.9 L Anion Gap 12 Basophils # Pending Basophils % Pending Blood Morphology Comment Blood Urea Nitrogen 16 Calcium Level 7.9 L Carbon Dioxide Level 25 Chloride Level 106 Creatinine 1.33 H Eosinophils # Pending Eosinophils % Pending Glucose Level 84 Hematocrit 25.1 L Hemoglobin 8.4 L Lymphocytes # Pending Lymphocytes % Pending Mean Corpuscular Hemoglobin 28.1 L Mean Corpuscular Hemoglobin Concent 33.5 Mean Corpuscular Volume 83.9 Mean Platelet Volume 11.5 H Monocytes # Pending Monocytes % Pending Neutrophils # Pending Neutrophils % Pending Nucleated Red Blood Cells # Pending Nucleated Red Blood Cells % Pending Platelet Count 16 *L Potassium Level 3.7 Red Blood Count 2.99 L Red Cell Distribution Width 19.6 H Sodium Level 139 White Blood Count 12.3 H Medications Medications Current Medications Ondansetron HCl (Zofran Inj) 4 mg Q6H PRN IV NAUSEA AND/OR VOMITING; Start 12/23 at 16:30 Nitroglycerin (Nitroglycerin (Sl Tab) 0.4 Mg) 1 tab Q5M PRN SL CHEST PAIN; Start 12/23/16 at 16:30 Acetaminophen (Tylenol Supp) 650 mg Q4H PRN [place] PAIN LEVEL 1-3 OR FEVER Last administered on 12/25/16 01:06; Admin Dose 650 MG; Start 12/23/16 at 16:30 Bisacodyl (Dulcolax) 5 mg DAILY PRN PO CONSTIPATION; Start 12/23/16 at 16:30 Pantoprazole 40 mg 40 mg DAILY@06 IV Last administered on 01/02/17 06:49; Admin Dose 40 MG; Start 12/24/16 at 06:00 Propofol 100 ml @ 2.346 mls/ hr Q12H IV Last administered on 01/02/17 03:49; Admin Dose 18.768 MLS/HR; Start 12/23/16 at 22:00 Vancomycin HCl/ Sodium Chloride (Vancocin/NS) 150 ml @ 75 mls/hr Q24H IVPB Last administered on 01/01/17 14:04; Admin Dose 75 MLS/HR; Start 12/26/16 at 12: 00 Vancomycin HCl PER PHARMACY DOSING NOTE XX ; Start 12/26/16 at 11:00 Fluconazole/ Sodium Chloride 50 ml @ 50 mls/hr Q24H IVPB Last administered on 14:07; Admin Dose 50 MLS/HR; Start 12/27/16 at 13:00 Fentanyl 100 ml @ 2.5 mls/hr TITRATE IV Last administered on 01/02/17 03:42; Admin Dose 3 MLS/HR; Start 12/31/16 at 13:00 Meropenem (Merrem 1 Gm/100 ml (Pmx)) 100 ml @ 200 mls/hr Q12 IVPB Last administered on 01/01/17 20:20; Admin Dose 200 MLS/HR; Start 01/01/17 at 12:30 Lorazepam (Ativan) 1 mg Q1HWA PRN IV AGITATION; Start 01/01/17 at 23:00 MYESHA OLIVER Jan 02, 2017 09:08
[2017-01-02] MEDS: LORAZEPAM 2 MG INJ IV PRN ×3 (09:13→23:26)
[2017-01-02 10:25] LABS: LYMPHOCYTES # 3.6 10^3/ul (0.8-2.9); MONOCYTE # 7.1 10^3/ul (0.3-0.9); MYELOCYTES # 0.4; NEUTROPHIL # 0.4 10^3/ul (1.6-7.5); PLATELET ESTIMATE PLT APPEAR DECREASED
[2017-01-02] MEDS: MEROPENEM 1 GM/100 ML (PMX) 100 ML IVPB SCH ×2 (10:55→20:33)
[2017-01-02] MEDS: SOD CHLORIDE 0.45% 1,000 ML IV SCH (10:55)
--- NOTE | 2017-01-02 11:53 | CONS ---
Date/Time of Note Date/Time of Note DATE: 01/02/17 TIME: 11:49 Assessment/Plan Assessment/Plan Chief Complaint/Hosp Course SUBJECTIVE: No acute changes overnight. Looks comfortable on vent. VITAL SIGNS: Afebrile, temperature 97.8, pulse 64, respirations 24, blood pressure 105/57, saturation 100% on the vent. LABORATORY DATA: WBC 11.4, H and H 8.5 and 25.6, platelets 18. BUN 20, creatinine 1.43. MICROBIOLOGY: Sputum culture sent on 12/30/2016 growing staph species. INDWELLINGS: Endotracheal tube, NG tube, Leyva catheter, peripheral IV. ANTIMICROBIALS: 1. Fluconazole. 2. Vancomycin. 3. Meropenem . PHYSICAL EXAMINATION: GENERAL: Fragile, elderly man who is in no distress. HEENT: Head atraumatic, normocephalic. Sclerae anicteric. Buccal mucosa dry. NECK: Supple, trachea midline. CHEST: Rise symmetrical. Breath sounds diminished to bases. HEART: S1, S2. ABDOMEN: Soft, bowel sounds present. EXTREMITIES: Without cyanosis. ASSESSMENT: 1. Severe sepsis status post shock. 2. Acute respiratory failure secondary to bilateral pneumonia, unable to be extubated. 3. Status post influenza A virus. 4. Myelodysplasia, oncology follows. 5. Acute renal failure. PLAN: The patient remains stable. Pending repeat nasopharyngeal swab for influenza, continue abx for couple more days, continue vent management as per pulmonary team. NINA Ricketts Problems: Consultation Date/Type/Reason Admit Date/Time Dec 23, 2016 at 15:37 Initial Consult Date 12/24/16 Type of Consultation: ID Referring Provider: BEN COURTNEY MD Exam/Review of Systems Vital Signs Vitals Vital Signs Date Time Temp Pulse Resp B/P Pulse Ox O2 Delivery O2 Flow Rate FiO2 01/02/17 10:47 73 18 93 30 01/02/17 09:30 107/62 01/02/17 09:00 Mechanical Ventilator 01/02/17 08:00 97.6 Intake and Output 01/01/17 01/01/17 01/02/17 15:00 23:00 07:00 Intake Total 947.68 ml 527.78 ml 770.3 ml Output Total 680 ml 925 ml 875 ml Balance 267.68 ml -397.22 ml -104.7 ml Results Result Diagram: 01/02/17 0525 01/02/17 0525 Results 24 hrs Laboratory Tests Test 01/01/17 20:36 01/01/17 21:00 01/02/17 05:25 Bedside Glucose 118 Arterial Blood HCO3 23.9 Arterial Blood Base Excess -0.8 Arterial Blood Oxygen Saturation 96.5 Dar Test ACCEPTAB Arterial Blood Gas Puncture Site Left Radial Arterial Blood Carboxyhemoglobin 0.3 Arterial Blood Date Drawn 01/01/2017 9:00:57 PM Arterial Blood Methemoglobin 0.3 Arterial Blood pCO2 (Temp correct) 39.5 Arterial Blood pH (Temp corrected) 7.400 Arterial Blood pO2 (Temp corrected) 93.2 Blood Gas A-a O2 Differential 74.3 H Blood Gas Actual Respiration Rate 17 Blood Gas Low PEEP Setting 5.0 Blood Gas Modality VENT - AC Blood Gas Notified Time 01/01/2017 9:27:32 PM Blood Gas Notified Whom MA Blood Gas Respiration Rate 14.0 Blood Gas Specimen Source Blood arterial Blood Gas Temperature 37.0 Blood Gas Tidal Volume 500.0 FiO2 30.0 Oxyhemoglobin Percent 95.9 Total Hemoglobin 8.9 L Anion Gap 12 Band Neutrophils % 2.0 Basophils # Basophils % Blast Cells % 2.0 H Blastocytes # 0.2 Blood Morphology Comment Blood Urea Nitrogen 16 Calcium Level 7.9 L Carbon Dioxide Level 25 Chloride Level 106 Creatinine 1.33 H Differential Comment MANUAL DIFF Eosinophils # Eosinophils % Glucose Level 84 Hematocrit 25.1 L Hemoglobin 8.4 L Large Platelets 1+ Lymphocytes # 3.6 H Lymphocytes % 29.0 Mean Corpuscular Hemoglobin 28.1 L Mean Corpuscular Hemoglobin Concent 33.5 Mean Corpuscular Volume 83.9 Mean Platelet Volume 11.5 H Metamyelocytes # 0.4 Metamyelocytes % 3.0 H Monocytes # 7.1 H Monocytes % 58.0 H Myelocytes # 0.4 Myelocytes % 3.0 H Neutrophils # 0.4 L Neutrophils % 3.0 L Nucleated Red Blood Cells # Nucleated Red Blood Cells % Platelet Count 16 *L Platelet Estimate PLT APPEAR DECREASED Potassium Level 3.7 Red Blood Count 2.99 L Red Cell Distribution Width 19.6 H Sodium Level 139 White Blood Count 12.3 H Medications Medications Current Medications Ondansetron HCl (Zofran Inj) 4 mg Q6H PRN IV NAUSEA AND/OR VOMITING; Start 12/23 at 16:30 Nitroglycerin (Nitroglycerin (Sl Tab) 0.4 Mg) 1 tab Q5M PRN SL CHEST PAIN; Start 12/23/16 at 16:30 Acetaminophen (Tylenol Supp) 650 mg Q4H PRN [place] PAIN LEVEL 1-3 OR FEVER Last administered on 12/25/16 01:06; Admin Dose 650 MG; Start 12/23/16 at 16:30 Bisacodyl (Dulcolax) 5 mg DAILY PRN PO CONSTIPATION; Start 12/23/16 at 16:30 Pantoprazole 40 mg 40 mg DAILY@06 IV Last administered on 01/02/17 06:49; Admin Dose 40 MG; Start 12/24/16 at 06:00 Propofol 100 ml @ 2.346 mls/ hr Q12H IV Last administered on 01/02/17 09:12; Admin Dose 23.46 MLS/HR; Start 12/23/16 at 22:00 Vancomycin HCl/ Sodium Chloride (Vancocin/NS) 150 ml @ 75 mls/hr Q24H IVPB Last administered on 01/01/17 14:04; Admin Dose 75 MLS/HR; Start 12/26/16 at 12: 00 Vancomycin HCl PER PHARMACY DOSING NOTE XX ; Start 12/26/16 at 11:00 Fluconazole/ Sodium Chloride 50 ml @ 50 mls/hr Q24H IVPB Last administered on 14:07; Admin Dose 50 MLS/HR; Start 12/27/16 at 13:00 Fentanyl 100 ml @ 2.5 mls/hr TITRATE IV Last administered on 01/02/17 03:42; Admin Dose 3 MLS/HR; Start 12/31/16 at 13:00 Meropenem (Merrem 1 Gm/100 ml (Pmx)) 100 ml @ 200 mls/hr Q12 IVPB Last administered on 01/02/17 10:55; Admin Dose 200 MLS/HR; Start 01/01/17 at 12:30 Lorazepam 1 mg 1 mg Q1HWA PRN IV AGITATION Last administered on 01/02/17 09:13 ; Admin Dose 1 MG; Start 01/01/17 at 23:00 Sodium Chloride (1/2 NS) 1,000 ml @ 50 mls/hr Q20H IV Last administered on 2/ 16/17at 10:55; Admin Dose 50 MLS/HR; Start 01/02/17 at 09:30 DARLENE CARTAGENA NP Jan 02, 2017 11:52
--- NOTE | 2017-01-02 12:01 | CONS ---
Date/Time of Note Date/Time of Note DATE: 01/02/17 TIME: 11:55 Assessment/Plan Assessment/Plan Chief Complaint/Hosp Course IMPRESSION: 1. 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 Cardiomyopathy with decreased left ventricular ejection fraction, last being approximately 45% to 50% by echo 11/2016. 3. Hypotension, borderline. 4. Influenza positive. 5. History of chronic myelogenous leukemia. 6. Renal failure-slowly improving. 7. Thrombocytopenia, severe. 8. Anemia. 9. Leukocytosis. Recc: -Tele -serial ecg's -Continue abx's and f/u cx data -Follow volume status closely -continue tamiflu -Wean vent as tolerated -Follow volume status closely -Follow BP closely Problems: Consultation Date/Type/Reason Admit Date/Time Dec 23, 2016 at 15:37 Initial Consult Date 12/24/16 Type of Consultation: Cardiology Reason for Consultation cardiomyopathy Referring Provider: BEN COURTNEY MD Exam/Review of Systems Vital Signs Vitals Vital Signs Date Time Temp Pulse Resp B/P Pulse Ox O2 Delivery O2 Flow Rate FiO2 01/02/17 10:47 73 18 93 30 01/02/17 09:30 107/62 01/02/17 09:00 Mechanical Ventilator 01/02/17 08:00 97.6 Intake and Output 01/01/17 01/01/17 01/02/17 15:00 23:00 07:00 Intake Total 947.68 ml 527.78 ml 770.3 ml Output Total 680 ml 925 ml 875 ml Balance 267.68 ml -397.22 ml -104.7 ml Exam Review of Systems: CONSTITUTIONAL: No fevers, chills. PULMONARY: intubated CARDIOVASCULAR: No obvious chest pain/palpitations GASTROINTESTINAL: No nausea/vomiting. GENITOURINARY: No hematuria/dysuria. MUSCULOSKELETAL: No obvious myagias/arthalgias. PSYCHIATRIC: The patient denies depression. NEUROLOGIC: No weakness Constitutional: other (sedated) Psych: no complaints Head: normocephalic ENMT: mucosa pink and moist Neck: jvd (9 cm water), supple Respiratory: other (upper airway rhonchi) Cardiovascular: regular rate and rhythm Gastrointestinal: non-tender, soft Musculoskeletal: muscle tone (normal) Extremities: edema (none) Neurological: other (sedated) Results Result Diagram: 01/02/17 0525 01/02/17 0525 Results 24 hrs Laboratory Tests Test 01/01/17 20:36 01/01/17 21:00 01/02/17 05:25 Bedside Glucose 118 Arterial Blood HCO3 23.9 Arterial Blood Base Excess -0.8 Arterial Blood Oxygen Saturation 96.5 Dar Test ACCEPTAB Arterial Blood Gas Puncture Site Left Radial Arterial Blood Carboxyhemoglobin 0.3 Arterial Blood Date Drawn 01/01/2017 9:00:57 PM Arterial Blood Methemoglobin 0.3 Arterial Blood pCO2 (Temp correct) 39.5 Arterial Blood pH (Temp corrected) 7.400 Arterial Blood pO2 (Temp corrected) 93.2 Blood Gas A-a O2 Differential 74.3 H Blood Gas Actual Respiration Rate 17 Blood Gas Low PEEP Setting 5.0 Blood Gas Modality VENT - AC Blood Gas Notified Time 01/01/2017 9:27:32 PM Blood Gas Notified Whom MA Blood Gas Respiration Rate 14.0 Blood Gas Specimen Source Blood arterial Blood Gas Temperature 37.0 Blood Gas Tidal Volume 500.0 FiO2 30.0 Oxyhemoglobin Percent 95.9 Total Hemoglobin 8.9 L Anion Gap 12 Band Neutrophils % 2.0 Basophils # Basophils % Blast Cells % 2.0 H Blastocytes # 0.2 Blood Morphology Comment Blood Urea Nitrogen 16 Calcium Level 7.9 L Carbon Dioxide Level 25 Chloride Level 106 Creatinine 1.33 H Differential Comment MANUAL DIFF Eosinophils # Eosinophils % Glucose Level 84 Hematocrit 25.1 L Hemoglobin 8.4 L Large Platelets 1+ Lymphocytes # 3.6 H Lymphocytes % 29.0 Mean Corpuscular Hemoglobin 28.1 L Mean Corpuscular Hemoglobin Concent 33.5 Mean Corpuscular Volume 83.9 Mean Platelet Volume 11.5 H Metamyelocytes # 0.4 Metamyelocytes % 3.0 H Monocytes # 7.1 H Monocytes % 58.0 H Myelocytes # 0.4 Myelocytes % 3.0 H Neutrophils # 0.4 L Neutrophils % 3.0 L Nucleated Red Blood Cells # Nucleated Red Blood Cells % Platelet Count 16 *L Platelet Estimate PLT APPEAR DECREASED Potassium Level 3.7 Red Blood Count 2.99 L Red Cell Distribution Width 19.6 H Sodium Level 139 White Blood Count 12.3 H Medications Medications Current Medications Ondansetron HCl (Zofran Inj) 4 mg Q6H PRN IV NAUSEA AND/OR VOMITING; Start 12/23 at 16:30 Nitroglycerin (Nitroglycerin (Sl Tab) 0.4 Mg) 1 tab Q5M PRN SL CHEST PAIN; Start 12/23/16 at 16:30 Acetaminophen (Tylenol Supp) 650 mg Q4H PRN [place] PAIN LEVEL 1-3 OR FEVER Last administered on 12/25/16 01:06; Admin Dose 650 MG; Start 12/23/16 at 16:30 Bisacodyl (Dulcolax) 5 mg DAILY PRN PO CONSTIPATION; Start 12/23/16 at 16:30 Pantoprazole 40 mg 40 mg DAILY@06 IV Last administered on 01/02/17 06:49; Admin Dose 40 MG; Start 12/24/16 at 06:00 Propofol 100 ml @ 2.346 mls/ hr Q12H IV Last administered on 01/02/17 09:12; Admin Dose 23.46 MLS/HR; Start 12/23/16 at 22:00 Vancomycin HCl/ Sodium Chloride (Vancocin/NS) 150 ml @ 75 mls/hr Q24H IVPB Last administered on 01/01/17 14:04; Admin Dose 75 MLS/HR; Start 12/26/16 at 12: 00 Vancomycin HCl PER PHARMACY DOSING NOTE XX ; Start 12/26/16 at 11:00 Fluconazole/ Sodium Chloride 50 ml @ 50 mls/hr Q24H IVPB Last administered on 14:07; Admin Dose 50 MLS/HR; Start 12/27/16 at 13:00 Fentanyl 100 ml @ 2.5 mls/hr TITRATE IV Last administered on 01/02/17 03:42; Admin Dose 3 MLS/HR; Start 12/31/16 at 13:00 Meropenem (Merrem 1 Gm/100 ml (Pmx)) 100 ml @ 200 mls/hr Q12 IVPB Last administered on 01/02/17 10:55; Admin Dose 200 MLS/HR; Start 01/01/17 at 12:30 Lorazepam 1 mg 1 mg Q1HWA PRN IV AGITATION Last administered on 01/02/17 09:13 ; Admin Dose 1 MG; Start 01/01/17 at 23:00 Sodium Chloride (1/2 NS) 1,000 ml @ 50 mls/hr Q20H IV Last administered on t 10:55; Admin Dose 50 MLS/HR; Start 01/02/17 at 09:30 MILENA VELA Jan 02, 2017 12:01
[2017-01-02] MEDS: VANCOMYCIN 750 MG in SOD CHLORIDE 0.9% 150 ML IVPB SCH (12:38)
--- NOTE | 2017-01-02 13:24 | PN ---
Date/Time of Note Date/Time of Note DATE: 01/02/17 TIME: 13:18 Assessment/Plan VTE Prophylaxis VTE Prophylaxis Intervention: contraindicated VTE Contraindication Reason: thrombocytopenia Lines/Catheters IV Catheter Type (from Nrsg): Peripheral IV Urinary Cath still in place: Yes Reason Cath still needed: urinary retention Assessment/Plan Chief Complaint/Hosp Course Assessment/Plan: 71 yo male with a past medical history of CML on chemotherapy, MDS, GERD, COPD, anemia of chronic disease, who presents with acute shortness of breath sec to + influenza. 1. Sepsis - 2/2 to Influenza Pneumonia with superimposed healthcare-associated pneumonia as well as possible aspiration - pt completed tamiflu - continue IV antibiotics Meropenem (restarted today) + Fluconazole - f/u repeat Flu A test - results pending - f/u ID rec's. 2. Acute hypoxemic respiratory failure - still intubated. - wean as tolerated - f/u pulm rec's 3. Severe thrombocytopenia - sec to CML + PNA. 16 today. HIT antibodies was negative. 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 4. Acute on chronic renal failure - 2/2 to sepsis - resolving now. - continue IVF - renally adjust medications, avoid nephrotoxins, appreciate renal consult 5. Anemia - of chronic disease -H/H presently low nL range - transfuse as per hem/onc, ferrilicit 6. CML/MDS - per Heme/Onc patient has been treated with azacytadine and lenalidomide with little effect. - continue with hem/onc recs 7. CHF with diastolic heart failure - consult cardiology, type II NSTEMI ? - demand ischemia, recent ECHO EF 45%, diastolic dysfunction 8. COPD - see #1 9. GERD - continue with IV protonix 10. Smoking abuse - advised patient on cessation 11. Hypernatremia - dehydration vs volume depletion vs other - resolved. - continue with free water and D5W as per nephro - improving 12. GI ppx - protonix 13. DVT ppx - contraindicated for anticoagulation - monitor acute changes dispo - f/u recs, monitor changes, prognosis is guarded/poor - f/u palliative care consult - per their rec's, trying to get in touch with the about setting up another family meeting (third one); if no improvement, code status needs to be reassessed Critical care time spent today = 45 min. Problems: Subjective 24 Hr Interval Summary Free Text/Dictation Pt still intubated. Seen by specialists today. Exam/Review of Systems Vital Signs Vitals Vital Signs Date Time Temp Pulse Resp B/P Pulse Ox O2 Delivery O2 Flow Rate FiO2 01/02/17 12:00 74 01/02/17 11:40 19 98 30 01/02/17 09:30 107/62 01/02/17 09:00 Mechanical Ventilator 01/02/17 08:00 97.6 Intake and Output 01/01/17 01/01/17 01/02/17 15:00 23:00 07:00 Intake Total 947.68 ml 527.78 ml 770.3 ml Output Total 680 ml 925 ml 875 ml Balance 267.68 ml -397.22 ml -104.7 ml Exam Gen [place]: intubated/sedated HEENT: NC/AT, PERRLA, ETT NECK: supple, no thyromegaly THORAX: symmetrical, no obvious deformities CV: S1S2, no M/G/R Lungs: coarse breath sounds throughout all lung masters, diminished at the bases , with end expiratory wheezing Abd: soft, NT/ND, +BS, no rebound, no guarding, neg HSM, scaphoid EXT: 1+ edema, no ecchymosis, no clubbing, FROM, muscle wasting noted Neuro: intubated/sedated Psych: cannot assess Skin: scattered petechiae Results Result Diagram: 01/02/17 0501/02/17 0525 Results 24 hrs Laboratory Tests Test 01/01/17 20:36 01/01/17 21:00 01/02/17 05:25 Bedside Glucose 118 Arterial Blood HCO3 23.9 Arterial Blood Base Excess -0.8 Arterial Blood Oxygen Saturation 96.5 Dar Test ACCEPTAB Arterial Blood Gas Puncture Site Left Radial Arterial Blood Carboxyhemoglobin 0.3 Arterial Blood Date Drawn 01/01/2017 9:00:57 PM Arterial Blood Methemoglobin 0.3 Arterial Blood pCO2 (Temp correct) 39.5 Arterial Blood pH (Temp corrected) 7.400 Arterial Blood pO2 (Temp corrected) 93.2 Blood Gas A-a O2 Differential 74.3 H Blood Gas Actual Respiration Rate 17 Blood Gas Low PEEP Setting 5.0 Blood Gas Modality VENT - AC Blood Gas Notified Time 01/01/2017 9:27:32 PM Blood Gas Notified Cathi CORREA Blood Gas Respiration Rate 14.0 Blood Gas Specimen Source Blood arterial Blood Gas Temperature 37.0 Blood Gas Tidal Volume 500.0 FiO2 30.0 Oxyhemoglobin Percent 95.9 Total Hemoglobin 8.9 L Anion Gap 12 Band Neutrophils % 2.0 Basophils # Basophils % Blast Cells % 2.0 H Blastocytes # 0.2 Blood Morphology Comment Blood Urea Nitrogen 16 Calcium Level 7.9 L Carbon Dioxide Level 25 Chloride Level 106 Creatinine 1.33 H Differential Comment MANUAL DIFF Eosinophils # Eosinophils % Glucose Level 84 Hematocrit 25.1 L Hemoglobin 8.4 L Large Platelets 1+ Lymphocytes # 3.6 H Lymphocytes % 29.0 Mean Corpuscular Hemoglobin 28.1 L Mean Corpuscular Hemoglobin Concent 33.5 Mean Corpuscular Volume 83.9 Mean Platelet Volume 11.5 H Metamyelocytes # 0.4 Metamyelocytes % 3.0 H Monocytes # 7.1 H Monocytes % 58.0 H Myelocytes # 0.4 Myelocytes % 3.0 H Neutrophils # 0.4 L Neutrophils % 3.0 L Nucleated Red Blood Cells # Nucleated Red Blood Cells % Platelet Count 16 *L Platelet Estimate PLT APPEAR DECREASED Potassium Level 3.7 Red Blood Count 2.99 L Red Cell Distribution Width 19.6 H Sodium Level 139 White Blood Count 12.3 H Medications Medications Current Medications Ondansetron HCl (Zofran Inj) 4 mg Q6H PRN IV NAUSEA AND/OR VOMITING; Start 12/23 at 16:30 Nitroglycerin (Nitroglycerin (Sl Tab) 0.4 Mg) 1 tab Q5M PRN SL CHEST PAIN; Start 12/23/16 at 16:30 Acetaminophen (Tylenol Supp) 650 mg Q4H PRN [place] PAIN LEVEL 1-3 OR FEVER Last administered on 12/25/16 01:06; Admin Dose 650 MG; Start 12/23/16 at 16:30 Bisacodyl (Dulcolax) 5 mg DAILY PRN PO CONSTIPATION; Start 12/23/16 at 16:30 Pantoprazole 40 mg 40 mg DAILY@06 IV Last administered on 01/02/17 06:49; Admin Dose 40 MG; Start 12/24/16 at 06:00 Propofol 100 ml @ 2.346 mls/ hr Q12H IV Last administered on 01/02/17 09:12; Admin Dose 23.46 MLS/HR; Start 12/23/16 at 22:00 Vancomycin HCl/ Sodium Chloride (Vancocin/NS) 150 ml @ 75 mls/hr Q24H IVPB Last administered on 01/02/17 12:38; Admin Dose 75 MLS/HR; Start 12/26/16 at 12: 00 Vancomycin HCl PER PHARMACY DOSING NOTE XX ; Start 12/26/16 at 11:00 Fluconazole/ Sodium Chloride 50 ml @ 50 mls/hr Q24H IVPB Last administered on 14:07; Admin Dose 50 MLS/HR; Start 12/27/16 at 13:00 Fentanyl 100 ml @ 2.5 mls/hr TITRATE IV Last administered on 01/02/17 03:42; Admin Dose 3 MLS/HR; Start 12/31/16 at 13:00 Meropenem (Merrem 1 Gm/100 ml (Pmx)) 100 ml @ 200 mls/hr Q12 IVPB Last administered on 01/02/17 10:55; Admin Dose 200 MLS/HR; Start 01/01/17 at 12:30 Lorazepam 1 mg 1 mg Q1HWA PRN IV AGITATION Last administered on 01/02/17 09:13 ; Admin Dose 1 MG; Start 01/01/17 at 23:00 Sodium Chloride (1/2 NS) 1,000 ml @ 50 mls/hr Q20H IV Last administered on 10:55; Admin Dose 50 MLS/HR; Start 01/02/17 at 09:30 Miscellaneous Information (*Rx Drug Level Order Reminder*) VANCO TR LEVEL PRIOR... ONCE ONCE XX ; Start 01/03/17 at 11:00; Stop 01/03/17 at 11:01 ANA RATLIFF Jan 02, 2017 13:24
--- NOTE | 2017-01-02 14:19 | PN ---
Date/Time of Note Date/Time of Note DATE: 01/02/17 TIME: 14:17 Assessment/Plan VTE Prophylaxis VTE Prophylaxis Intervention: other (per primary MD) Lines/Catheters IV Catheter Type (from Nrsg): Peripheral IV Urinary Cath still in place: Yes Reason Cath still needed: other (indicate) (altered mental status) Assessment/Plan Assessment/Plan Platelets remain low but stable. No transfusion suggested today. Subjective 24 Hr Interval Summary Free Text/Dictation Pt remains intubated and on Propofol. Exam/Review of Systems Vital Signs Vitals Vital Signs Date Time Temp Pulse Resp B/P Pulse Ox O2 Delivery O2 Flow Rate FiO2 01/02/17 12:00 74 01/02/17 11:40 19 98 30 01/02/17 09:30 107/62 01/02/17 09:00 Mechanical Ventilator 01/02/17 08:00 97.6 Intake and Output 01/01/17 01/01/17 01/02/17 15:00 23:00 07:00 Intake Total 947.68 ml 527.78 ml 770.3 ml Output Total 680 ml 925 ml 875 ml Balance 267.68 ml -397.22 ml -104.7 ml Exam Head: normocephalic Respiratory: other (on respirator) Cardiovascular: regular rate and rhythm Gastrointestinal: soft Results Result Diagram: 01/02/17 0525 01/02/17 0525 Results 24 hrs Laboratory Tests Test 01/01/17 20:36 01/01/17 21:00 01/02/17 05:25 Bedside Glucose 118 Arterial Blood HCO3 23.9 Arterial Blood Base Excess -0.8 Arterial Blood Oxygen Saturation 96.5 Dar Test ACCEPTAB Arterial Blood Gas Puncture Site Left Radial Arterial Blood Carboxyhemoglobin 0.3 Arterial Blood Date Drawn 01/01/2017 9:00:57 PM Arterial Blood Methemoglobin 0.3 Arterial Blood pCO2 (Temp correct) 39.5 Arterial Blood pH (Temp corrected) 7.400 Arterial Blood pO2 (Temp corrected) 93.2 Blood Gas A-a O2 Differential 74.3 H Blood Gas Actual Respiration Rate 17 Blood Gas Low PEEP Setting 5.0 Blood Gas Modality VENT - AC Blood Gas Notified Time 01/01/2017 9:27:32 PM Blood Gas Notified Whom MA Blood Gas Respiration Rate 14.0 Blood Gas Specimen Source Blood arterial Blood Gas Temperature 37.0 Blood Gas Tidal Volume 500.0 FiO2 30.0 Oxyhemoglobin Percent 95.9 Total Hemoglobin 8.9 L Anion Gap 12 Band Neutrophils % 2.0 Basophils # Basophils % Blast Cells % 2.0 H Blastocytes # 0.2 Blood Morphology Comment Blood Urea Nitrogen 16 Calcium Level 7.9 L Carbon Dioxide Level 25 Chloride Level 106 Creatinine 1.33 H Differential Comment MANUAL DIFF Eosinophils # Eosinophils % Glucose Level 84 Hematocrit 25.1 L Hemoglobin 8.4 L Large Platelets 1+ Lymphocytes # 3.6 H Lymphocytes % 29.0 Mean Corpuscular Hemoglobin 28.1 L Mean Corpuscular Hemoglobin Concent 33.5 Mean Corpuscular Volume 83.9 Mean Platelet Volume 11.5 H Metamyelocytes # 0.4 Metamyelocytes % 3.0 H Monocytes # 7.1 H Monocytes % 58.0 H Myelocytes # 0.4 Myelocytes % 3.0 H Neutrophils # 0.4 L Neutrophils % 3.0 L Nucleated Red Blood Cells # Nucleated Red Blood Cells % Platelet Count 16 *L Platelet Estimate PLT APPEAR DECREASED Potassium Level 3.7 Red Blood Count 2.99 L Red Cell Distribution Width 19.6 H Sodium Level 139 White Blood Count 12.3 H Medications Medications Current Medications Ondansetron HCl (Zofran Inj) 4 mg Q6H PRN IV NAUSEA AND/OR VOMITING; Start 12/23 at 16:30 Nitroglycerin (Nitroglycerin (Sl Tab) 0.4 Mg) 1 tab Q5M PRN SL CHEST PAIN; Start 12/23/16 at 16:30 Acetaminophen (Tylenol Supp) 650 mg Q4H PRN [place] PAIN LEVEL 1-3 OR FEVER Last administered on 12/25/16 01:06; Admin Dose 650 MG; Start 12/23/16 at 16:30 Bisacodyl (Dulcolax) 5 mg DAILY PRN PO CONSTIPATION; Start 12/23/16 at 16:30 Pantoprazole 40 mg 40 mg DAILY@06 IV Last administered on 01/02/17 06:49; Admin Dose 40 MG; Start 12/24/16 at 06:00 Propofol 100 ml @ 2.346 mls/ hr Q12H IV Last administered on 01/02/17 09:12; Admin Dose 23.46 MLS/HR; Start 12/23/16 at 22:00 Vancomycin HCl/ Sodium Chloride (Vancocin/NS) 150 ml @ 75 mls/hr Q24H IVPB Last administered on 01/02/17 12:38; Admin Dose 75 MLS/HR; Start 12/26/16 at 12: 00 Vancomycin HCl PER PHARMACY DOSING NOTE XX ; Start 12/26/16 at 11:00 Fluconazole/ Sodium Chloride 50 ml @ 50 mls/hr Q24H IVPB Last administered on 14:07; Admin Dose 50 MLS/HR; Start 12/27/16 at 13:00 Fentanyl 100 ml @ 2.5 mls/hr TITRATE IV Last administered on 01/02/17 03:42; Admin Dose 3 MLS/HR; Start 12/31/16 at 13:00 Meropenem (Merrem 1 Gm/100 ml (Pmx)) 100 ml @ 200 mls/hr Q12 IVPB Last administered on 01/02/17 10:55; Admin Dose 200 MLS/HR; Start 01/01/17 at 12:30 Lorazepam 1 mg 1 mg Q1HWA PRN IV AGITATION Last administered on 01/02/17 09:13 ; Admin Dose 1 MG; Start 01/01/17 at 23:00 Sodium Chloride (1/2 NS) 1,000 ml @ 50 mls/hr Q20H IV Last administered on 10:55; Admin Dose 50 MLS/HR; Start 01/02/17 at 09:30 Miscellaneous Information (*Rx Drug Level Order Reminder*) VANCO TR LEVEL PRIOR... ONCE ONCE XX ; Start 01/03/17 at 11:00; Stop 01/03/17 at 11:01 GONZALO MCDONALD MD Jan 02, 2017 14:19
[2017-01-02] MEDS: FLUCONAZOLE 100 MG/NS (PMX) 50 ML IVPB SCH (15:09)
[2017-01-03] VITALS (49 sets, daily range): BP systolic 83–156; BP diastolic 49–97; PULSE 75–121; RESP 10–21
[2017-01-03] MEDS: PROPOFOL 100 ML IV SCH ×2 (00:22→05:53)
[2017-01-03] MEDS: IPRATROPIUM (HFA) 12.9 GM INHALER INH SCH ×3 (01:31→10:49)
[2017-01-03] MEDS: ALBUTEROL HFA 8 GM INHALER INH SCH ×3 (01:31→10:49)
[2017-01-03] MEDS: LORAZEPAM 2 MG INJ IV PRN ×5 (03:23→19:54)
[2017-01-03] MEDS: SOD CHLORIDE 0.45% 1,000 ML IV SCH ×2 (05:30→16:53)
[2017-01-03] MEDS: PANTOPRAZOLE 40 MG INJ IV SCH (05:53)
[2017-01-03] MEDS: FENTAnyl (DRIP) 1000 mcg/100mL 100 ML IV SCH (05:54)
[2017-01-03 06:34] LABS: HEMOGLOBIN 7.9 g/dl (14.0-18.0); MEAN CORPUSCULAR HEMOGLOBIN 28.2 pg (29.0-33.0); MEAN CORPUSCULAR HGB CONC 33.2 g/dl (32.0-37.0); MEAN PLATELET VOLUME 11.2 fl (7.4-10.4); RED BLOOD COUNT 2.82 10^6/ul (4.70-6.10); RED CELL DISTRIBUTION WIDTH 19.7 % (11.5-14.5); UNCORRECTED WBC 13.4 10^3/ul (4.8-10.8); WHITE BLOOD COUNT 13.4 10^3/ul (4.8-10.8)
[2017-01-03 06:47] LABS: CONDITION 1; LH ANALYZER COMMENTS 1; POTASSIUM 3.8 mmol/L (3.5-5.1); SUSPECT 1
[2017-01-03 06:50] LABS: CALCIUM 7.7 mg/dl (8.4-10.2); CREATININE 1.29 mg/dl (0.61-1.24)
[2017-01-03 06:51] LABS: PLATELET COUNT 16 10^3/UL (140-440)
[2017-01-03] MEDS: MEROPENEM 1 GM/100 ML (PMX) 100 ML IVPB SCH (08:09)
--- NOTE | 2017-01-03 08:19 | CONS ---
Date/Time of Note Date/Time of Note DATE: 01/03/17 TIME: 08:17 Assessment/Plan Assessment/Plan Additional Assessment/Plan 1. Acute kidney injury, likely secondary to acute tubular necrosis in the setting of sepsis.-improved 2. Acute hypoxemic respiratory failure, multifactorial, secondary to sepsis and secondary to pulmonary condition. 3. Acute pulmonary edema with influenza pneumonia. 4. History of congestive heart failure with diastolic heart failure. 5. History of chronic obstructive pulmonary disease. 6. History of gastroesophageal reflux disease. 7. History of smoking. 8. 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 9. Hypomagnesemia with Mag 1.3 PLAN: making good urine, renal function has been improved , Cr 1.29 magnesium sulfate 3 gram IV x 1 dose now IV abx as per ID will follow up this critical care note took greater than 45 min to complete Consultation Date/Type/Reason Admit Date/Time Dec 23, 2016 at 15:37 Initial Consult Date 12/23/16 Type of Consultation: NEPHROLOGY Reason for Consultation Acute Kidney Injury Referring Provider: BEN COURTNEY MD Exam/Review of Systems Vital Signs Vitals Vital Signs Date Time Temp Pulse Resp B/P Pulse Ox O2 Delivery O2 Flow Rate FiO2 01/03/17 08:00 98.5 80 13 102/58 100 Mechanical Ventilator 01/03/17 05:52 30 Intake and Output 01/02/17 01/02/17 01/03/17 15:00 23:00 07:00 Intake Total 825 ml 988.5 ml 780.1 ml Output Total 1010 ml 790 ml 685 ml Balance -185 ml 198.5 ml 95.1 ml Exam Gen [place]: intubated/sedated CV: S1S2, tachycardiac, no M/G/R Lungs: coarse breath sounds throughout all lung masters, diminished at the bases , with end expiratory wheezing, improving daily Abd: soft, NT/ND, +BS, no rebound, no guarding, neg HSM, scaphoid EXT: 1+ edema, no ecchymosis, no clubbing, FROM, muscle wasting noted Neuro: intubated/sedated Skin: scattered petechiae Results Result Diagram: 01/03/17 0555 01/03/17 0555 Results 24 hrs Laboratory Tests Test 01/03/17 05:55 Anion Gap 13 Basophils # Pending Basophils % Pending Blood Morphology Comment Blood Urea Nitrogen 14 Calcium Level 7.7 L Carbon Dioxide Level 25 Chloride Level 108 Creatinine 1.29 H Eosinophils # Pending Eosinophils % Pending Glucose Level 80 Hematocrit 24.0 L Hemoglobin 7.9 L Lymphocytes # Pending Lymphocytes % Pending Magnesium Level 1.3 L Mean Corpuscular Hemoglobin 28.2 L Mean Corpuscular Hemoglobin Concent 33.2 Mean Corpuscular Volume 85.0 Mean Platelet Volume 11.2 H Monocytes # Pending Monocytes % Pending Neutrophils # Pending Neutrophils % Pending Nucleated Red Blood Cells # Pending Nucleated Red Blood Cells % Pending Platelet Count 16 *L Potassium Level 3.8 Red Blood Count 2.82 L Red Cell Distribution Width 19.7 H Sodium Level 142 White Blood Count 13.4 H Medications Medications Current Medications Ondansetron HCl (Zofran Inj) 4 mg Q6H PRN IV NAUSEA AND/OR VOMITING; Start 12/23 at 16:30 Nitroglycerin (Nitroglycerin (Sl Tab) 0.4 Mg) 1 tab Q5M PRN SL CHEST PAIN; Start 12/23/16 at 16:30 Acetaminophen (Tylenol Supp) 650 mg Q4H PRN [place] PAIN LEVEL 1-3 OR FEVER Last administered on 12/25/16 01:06; Admin Dose 650 MG; Start 12/23/16 at 16:30 Bisacodyl (Dulcolax) 5 mg DAILY PRN PO CONSTIPATION; Start 12/23/16 at 16:30 Pantoprazole 40 mg 40 mg DAILY@06 IV Last administered on 01/03/17 05:53; Admin Dose 40 MG; Start 12/24/16 at 06:00 Propofol 100 ml @ 2.346 mls/ hr Q12H IV Last administered on 01/03/17 05:53; Admin Dose 18.768 MLS/HR; Start 12/23/16 at 22:00 Vancomycin HCl/ Sodium Chloride (Vancocin/NS) 150 ml @ 75 mls/hr Q24H IVPB Last administered on 01/02/17 12:38; Admin Dose 75 MLS/HR; Start 12/26/16 at 12: 00 Vancomycin HCl PER PHARMACY DOSING NOTE XX ; Start 12/26/16 at 11:00 Fluconazole/ Sodium Chloride 50 ml @ 50 mls/hr Q24H IVPB Last administered on 15:09; Admin Dose 50 MLS/HR; Start 12/27/16 at 13:00 Fentanyl 100 ml @ 2.5 mls/hr TITRATE IV Last administered on 01/03/17 05:54; Admin Dose 3 MLS/HR; Start 12/31/16 at 13:00 Meropenem (Merrem 1 Gm/100 ml (Pmx)) 100 ml @ 200 mls/hr Q12 IVPB Last administered on 01/03/17 08:09; Admin Dose 200 MLS/HR; Start 01/01/17 at 12:30 Lorazepam 1 mg 1 mg Q1HWA PRN IV AGITATION Last administered on 01/03/17 03:23 ; Admin Dose 1 MG; Start 01/01/17 at 23:00 Sodium Chloride (1/2 NS) 1,000 ml @ 50 mls/hr Q20H IV Last administered on 10:55; Admin Dose 50 MLS/HR; Start 01/02/17 at 09:30 Miscellaneous Information (*Rx Drug Level Order Reminder*) VANCO TR LEVEL PRIOR... ONCE ONCE XX ; Start 01/03/17 at 11:00; Stop 01/03/17 at 11:01 GILL PEREIRA MD Jan 03, 2017 08:19
--- NOTE | 2017-01-03 08:54 | CONS ---
Date/Time of Note Date/Time of Note DATE: 01/03/17 TIME: 08:51 Assessment/Plan Assessment/Plan Additional Assessment/Plan Ventilator settings; AC of 14, tidal volume 500, PEEP of 5, 30% FiO2. Assessment and recommendations; next 1. Patient admitted with severe bilateral pneumonia with significant radiological. There is a right upper lobe lung nodule of undetermined significance at this point. 2. Failure to be weaned off from ventilator due to severe agitation. 3. History of CML. 4. Refractory thrombocytopenia. Without any overt bleed. 5. Patient continues to exhibit poor mental status. Hold sedation again to reassess mental status. Continue current antibiotic coverage. Once the patient is off sedative effect he will be evaluated for possible weaning from ventilator. Prognosis remains guarded. Consultation Date/Type/Reason Admit Date/Time Dec 23, 2016 at 15:37 Initial Consult Date 12/24/16 Type of Consultation: Pulmonary/critical care Referring Provider: BEN COURTNEY MD 24 HR Interval Summary Free Text/Dictation Patient's condition remains critical. Still requiring full ventilator support. Has been unable to be weaned off ventilator due to severe agitation whenever sedation is discontinued. Patient was again given a sedation vacation yesterday morning, he could not tolerate it and had to be re-sedated with combination propofol and fentanyl drips. However has remained hemodynamically stable. General examination; elderly male, or intubated, sedated currently in no distress. Exam/Review of Systems Vital Signs Vitals Vital Signs Date Time Temp Pulse Resp B/P Pulse Ox O2 Delivery O2 Flow Rate FiO2 01/03/17 08:00 98.5 80 13 102/58 100 Mechanical Ventilator 01/03/17 05:52 30 Intake and Output 01/02/17 01/02/17 01/03/17 15:00 23:00 07:00 Intake Total 825 ml 988.5 ml 780.1 ml Output Total 1010 ml 790 ml 685 ml Balance -185 ml 198.5 ml 95.1 ml Exam HEENT examination; supple neck, no JVD. No lymphadenopathy. Midline trachea. No thyromegaly. Pupils are small bilaterally. Orally intubated. Chest examination; diminished but clear breath sounds bilaterally. S1-S2 audible, no murmurs. Regular rhythm. Abdomen examination; soft, nondistended. No organomegaly. Bowel sounds audible. Extremity examination; no peripheral edema. [employer] examination; patient is sedated. Results Result Diagram: 01/03/17 0555 01/03/17 0555 Results 24 hrs Laboratory Tests Test 01/03/17 05:55 Anion Gap 13 Basophils # Pending Basophils % Pending Blood Morphology Comment Blood Urea Nitrogen 14 Calcium Level 7.7 L Carbon Dioxide Level 25 Chloride Level 108 Creatinine 1.29 H Eosinophils # Pending Eosinophils % Pending Glucose Level 80 Hematocrit 24.0 L Hemoglobin 7.9 L Lymphocytes # Pending Lymphocytes % Pending Magnesium Level 1.3 L Mean Corpuscular Hemoglobin 28.2 L Mean Corpuscular Hemoglobin Concent 33.2 Mean Corpuscular Volume 85.0 Mean Platelet Volume 11.2 H Monocytes # Pending Monocytes % Pending Neutrophils # Pending Neutrophils % Pending Nucleated Red Blood Cells # Pending Nucleated Red Blood Cells % Pending Platelet Count 16 *L Potassium Level 3.8 Red Blood Count 2.82 L Red Cell Distribution Width 19.7 H Sodium Level 142 White Blood Count 13.4 H Medications Medications Current Medications Ondansetron HCl (Zofran Inj) 4 mg Q6H PRN IV NAUSEA AND/OR VOMITING; Start 12/23 at 16:30 Nitroglycerin (Nitroglycerin (Sl Tab) 0.4 Mg) 1 tab Q5M PRN SL CHEST PAIN; Start 12/23/16 at 16:30 Acetaminophen (Tylenol Supp) 650 mg Q4H PRN [place] PAIN LEVEL 1-3 OR FEVER Last administered on 12/25/16 01:06; Admin Dose 650 MG; Start 12/23/16 at 16:30 Bisacodyl (Dulcolax) 5 mg DAILY PRN PO CONSTIPATION; Start 12/23/16 at 16:30 Pantoprazole 40 mg 40 mg DAILY@06 IV Last administered on 01/03/17 05:53; Admin Dose 40 MG; Start 12/24/16 at 06:00 Propofol 100 ml @ 2.346 mls/ hr Q12H IV Last administered on 01/03/17 05:53; Admin Dose 18.768 MLS/HR; Start 12/23/16 at 22:00 Vancomycin HCl/ Sodium Chloride (Vancocin/NS) 150 ml @ 75 mls/hr Q24H IVPB Last administered on 01/02/17 12:38; Admin Dose 75 MLS/HR; Start 12/26/16 at 12: 00 Vancomycin HCl PER PHARMACY DOSING NOTE XX ; Start 12/26/16 at 11:00 Fluconazole/ Sodium Chloride 50 ml @ 50 mls/hr Q24H IVPB Last administered on 15:09; Admin Dose 50 MLS/HR; Start 12/27/16 at 13:00 Fentanyl 100 ml @ 2.5 mls/hr TITRATE IV Last administered on 01/03/17 05:54; Admin Dose 3 MLS/HR; Start 12/31/16 at 13:00 Meropenem (Merrem 1 Gm/100 ml (Pmx)) 100 ml @ 200 mls/hr Q12 IVPB Last administered on 01/03/17 08:09; Admin Dose 200 MLS/HR; Start 01/01/17 at 12:30 Lorazepam 1 mg 1 mg Q1HWA PRN IV AGITATION Last administered on 01/03/17 03:23 ; Admin Dose 1 MG; Start 01/01/17 at 23:00 Sodium Chloride (1/2 NS) 1,000 ml @ 50 mls/hr Q20H IV Last administered on 10:55; Admin Dose 50 MLS/HR; Start 01/02/17 at 09:30 Miscellaneous Information VANCO TR LEVEL PRIOR... ONCE ONCE XX ; Start at 11:00; Stop 01/03/17 at 11:01 Magnesium Sulfate/ Sodium Chloride (Magnesium Sulfate/NS) 106 ml @ 35.333 mls/ hr ONCE ONCE IVPB ; Start 01/03/17 at 09:15; Stop 01/03/17 at 12:14 MYESHA OLIVER Jan 03, 2017 08:54
--- NOTE | 2017-01-03 08:54 | RADRPT ---
PROCEDURE: XR Chest. CLINICAL INDICATION: Pneumonia TECHNIQUE: Chest AP portable COMPARISON: 12/31/2016 FINDINGS: Endotracheal tube 3 cm above the errol. Nasogastric tube in the stomach. The mediastinal structures are unremarkable. There is calcification of the thoracic aorta (consiste nt with atherosclerosis). The heart is normal in size and configuration. There is pulmonary venous hypertension. There are normal lung volumes. There is a mild LLL patchy consolidation/subsegmenta l atelectasis. There is no change in the remote calcific granulomas disease The pleural spaces are u nremarkable. There are senescent changes of the axial skeleton. IMPRESSION: Calcification of the thoracic aorta (consistent with atherosclerosis). Mild pulmonary venous hypertension Mild LLL patchy consolidation/subsegmental atelectasis No change in remote calcific granulomas disease RPTAT: HGDB .Mekhi Angulo MD, Date Time Electronically viewed and signed by .Mekhi Angulo MD, on 01/03/2017 08:53 .B/
[2017-01-03] MEDS ORDERED: MAGNESIUM SULFATE 3 GM in SOD CHLORIDE 0.9% 100 ML IVPB ONE (09:15)
[2017-01-03 09:24] LABS: EOSINOPHILS # 0.1 10^3/ul (0.0-0.5); LYMPHOCYTES # 6.7 10^3/ul (0.8-2.9); MONOCYTE # 5.6 10^3/ul (0.3-0.9); NEUTROPHIL # 0.3 10^3/ul (1.6-7.5); PLATELET ESTIMATE PLT APPEAR DECREASED
--- NOTE | 2017-01-03 11:02 | CONS ---
Date/Time of Note Date/Time of Note DATE: 01/03/17 TIME: 11:00 Assessment/Plan Assessment/Plan Chief Complaint/Hosp Course IMPRESSION: 1. 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 Cardiomyopathy with decreased left ventricular ejection fraction, last being approximately 45% to 50% by echo 11/2016. 3. Hypotension, borderline. 4. Influenza positive. 5. History of chronic myelogenous leukemia. 6. Renal failure-slowly improving. 7. Thrombocytopenia, severe. 8. Anemia. 9. Leukocytosis. Recc: -Tele -serial ecg's -Continue abx's and f/u cx data -Follow volume status closely -continue tamiflu -Wean vent as tolerated -Follow volume status closely -Follow BP closely -Follow fro bleeding complications/need for platelet transfusion Problems: Consultation Date/Type/Reason Admit Date/Time Dec 23, 2016 at 15:37 Initial Consult Date 12/24/16 Type of Consultation: Cardiology Reason for Consultation Cardiomyopathy Referring Provider: BEN COURTNEY MD Exam/Review of Systems Vital Signs Vitals Vital Signs Date Time Temp Pulse Resp B/P Pulse Ox O2 Delivery O2 Flow Rate FiO2 01/03/17 10:45 89 14 113/63 97 01/03/17 10:00 Mechanical Ventilator 01/03/17 08:05 30 01/03/17 08:00 98.5 Intake and Output 01/02/17 01/02/17 01/03/17 15:00 23:00 07:00 Intake Total 825 ml 988.5 ml 851.8 ml Output Total 1010 ml 790 ml 685 ml Balance -185 ml 198.5 ml 166.8 ml Exam Review of Systems: CONSTITUTIONAL: No fevers, chills. PULMONARY: intubated CARDIOVASCULAR: No obvious chest pain/palpitations GASTROINTESTINAL: No nausea/vomiting. GENITOURINARY: No hematuria/dysuria. MUSCULOSKELETAL: No obvious myagias/arthalgias. PSYCHIATRIC: The patient denies depression. NEUROLOGIC: No weakness Constitutional: other (sedated) ENMT: intubated Neck: jvd (9 cm water), supple Respiratory: other (upper airway rhochi) Cardiovascular: regular rate and rhythm Gastrointestinal: non-tender, soft Musculoskeletal: muscle tone (normal) Extremities: edema (none) Neurological: other (sedated) Results Result Diagram: 01/03/17 0555 01/03/17 0555 Results 24 hrs Laboratory Tests Test 01/03/17 05:55 Anion Gap 13 Basophils # Basophils % Blast Cells % 4.0 H Blastocytes # 0.5 Blood Morphology Comment Blood Urea Nitrogen 14 Calcium Level 7.7 L Carbon Dioxide Level 25 Chloride Level 108 Creatinine 1.29 H Eosinophils # 0.1 Eosinophils % 1.0 Glucose Level 80 Hematocrit 24.0 L Hemoglobin 7.9 L Lymphocytes # 6.7 H Lymphocytes % 50.0 Magnesium Level 1.3 L Mean Corpuscular Hemoglobin 28.2 L Mean Corpuscular Hemoglobin Concent 33.2 Mean Corpuscular Volume 85.0 Mean Platelet Volume 11.2 H Monocytes # 5.6 H Monocytes % 42.0 H Neutrophils # 0.3 L Neutrophils % 2.0 L Nucleated Red Blood Cells # Nucleated Red Blood Cells % Platelet Count 16 *L Platelet Estimate PLT APPEAR DECREASED Potassium Level 3.8 Promyelocytes # 0.1 Promyelocytes % 1.0 H Red Blood Count 2.82 L Red Cell Distribution Width 19.7 H Sodium Level 142 White Blood Count 13.4 H Medications Medications Current Medications Ondansetron HCl (Zofran Inj) 4 mg Q6H PRN IV NAUSEA AND/OR VOMITING; Start 12/23 at 16:30 Nitroglycerin (Nitroglycerin (Sl Tab) 0.4 Mg) 1 tab Q5M PRN SL CHEST PAIN; Start 12/23/16 at 16:30 Acetaminophen (Tylenol Supp) 650 mg Q4H PRN [place] PAIN LEVEL 1-3 OR FEVER Last administered on 12/25/16 01:06; Admin Dose 650 MG; Start 12/23/16 at 16:30 Bisacodyl (Dulcolax) 5 mg DAILY PRN PO CONSTIPATION; Start 12/23/16 at 16:30 Pantoprazole 40 mg 40 mg DAILY@06 IV Last administered on 01/03/17 05:53; Admin Dose 40 MG; Start 12/24/16 at 06:00 Propofol 100 ml @ 2.346 mls/ hr Q12H IV Last administered on 01/03/17 05:53; Admin Dose 18.768 MLS/HR; Start 12/23/16 at 22:00 Vancomycin HCl/ Sodium Chloride (Vancocin/NS) 150 ml @ 75 mls/hr Q24H IVPB Last administered on 01/02/17 12:38; Admin Dose 75 MLS/HR; Start 12/26/16 at 12: 00 Vancomycin HCl PER PHARMACY DOSING NOTE XX ; Start 12/26/16 at 11:00 Fluconazole/ Sodium Chloride 50 ml @ 50 mls/hr Q24H IVPB Last administered on 15:09; Admin Dose 50 MLS/HR; Start 12/27/16 at 13:00 Fentanyl 100 ml @ 2.5 mls/hr TITRATE IV Last administered on 01/03/17 05:54; Admin Dose 3 MLS/HR; Start 12/31/16 at 13:00 Meropenem (Merrem 1 Gm/100 ml (Pmx)) 100 ml @ 200 mls/hr Q12 IVPB Last administered on 01/03/17 08:09; Admin Dose 200 MLS/HR; Start 01/01/17 at 12:30 Lorazepam 1 mg 1 mg Q1HWA PRN IV AGITATION Last administered on 01/03/17 03:23 ; Admin Dose 1 MG; Start 01/01/17 at 23:00 Sodium Chloride (1/2 NS) 1,000 ml @ 50 mls/hr Q20H IV Last administered on 10:55; Admin Dose 50 MLS/HR; Start 01/02/17 at 09:30 Miscellaneous Information VANCO TR LEVEL PRIOR... ONCE ONCE XX ; Start at 11:00; Stop 01/03/17 at 11:01 Magnesium Sulfate/ Sodium Chloride (Magnesium Sulfate/NS) 106 ml @ 35.333 mls/ hr ONCE ONCE IVPB Last administered on 01/03/17 09:35; Admin Dose 35.333 MLS/ HR; Start 01/03/17 at 09:15; Stop 01/03/17 at 12:14 MILENA VELA Jan 03, 2017 11:02
--- NOTE | 2017-01-03 11:07 | PN ---
Date/Time of Note Date/Time of Note DATE: 01/03/17 TIME: 11:03 Assessment/Plan VTE Prophylaxis VTE Prophylaxis Intervention: other (thrombocytopenia) Lines/Catheters IV [facility] Type (from [facility]): Peripheral IV Urinary Cath still in place: Yes Reason Cath still needed: skin wounds contaminated by urine Assessment/Plan Assessment/Plan Pt remains intubated and in very poor condition. Thrombocytopenia remains stable in the mid-teens. Hgb 7.9. RBC transfusion may be needed if aggressive support is going to be continued. Prognosis is poor. Subjective 24 Hr Interval Summary Subjective hx not possible: pt critical status (intubated) Exam/Review of Systems Vital Signs Vitals Vital Signs Date Time Temp Pulse Resp B/P Pulse Ox O2 Delivery O2 Flow Rate FiO2 01/03/17 10:45 89 14 113/63 97 01/03/17 10:00 Mechanical Ventilator 01/03/17 08:05 30 01/03/17 08:00 98.5 Intake and Output 01/02/17 01/02/17 01/03/17 15:00 23:00 07:00 Intake Total 825 ml 988.5 ml 851.8 ml Output Total 1010 ml 790 ml 685 ml Balance -185 ml 198.5 ml 166.8 ml Exam Head: normocephalic Respiratory: other (on ventilator) Cardiovascular: regular rate and rhythm Gastrointestinal: soft Results Result Diagram: 01/03/17 0555 01/03/17 0555 Results 24 hrs Laboratory Tests Test 01/03/17 05:55 Anion Gap 13 Basophils # Basophils % Blast Cells % 4.0 H Blastocytes # 0.5 Blood Morphology Comment Blood Urea Nitrogen 14 Calcium Level 7.7 L Carbon Dioxide Level 25 Chloride Level 108 Creatinine 1.29 H Eosinophils # 0.1 Eosinophils % 1.0 Glucose Level 80 Hematocrit 24.0 L Hemoglobin 7.9 L Lymphocytes # 6.7 H Lymphocytes % 50.0 Magnesium Level 1.3 L Mean Corpuscular Hemoglobin 28.2 L Mean Corpuscular Hemoglobin Concent 33.2 Mean Corpuscular Volume 85.0 Mean Platelet Volume 11.2 H Monocytes # 5.6 H Monocytes % 42.0 H Neutrophils # 0.3 L Neutrophils % 2.0 L Nucleated Red Blood Cells # Nucleated Red Blood Cells % Platelet Count 16 *L Platelet Estimate PLT APPEAR DECREASED Potassium Level 3.8 Promyelocytes # 0.1 Promyelocytes % 1.0 H Red Blood Count 2.82 L Red Cell Distribution Width 19.7 H Sodium Level 142 White Blood Count 13.4 H Medications Medications Current Medications Ondansetron HCl (Zofran Inj) 4 mg Q6H PRN IV NAUSEA AND/OR VOMITING; Start 12/23 at 16:30 Nitroglycerin (Nitroglycerin (Sl Tab) 0.4 Mg) 1 tab Q5M PRN SL CHEST PAIN; Start 12/23/16 at 16:30 Acetaminophen (Tylenol Supp) 650 mg Q4H PRN [place] PAIN LEVEL 1-3 OR FEVER Last administered on 12/25/16 01:06; Admin Dose 650 MG; Start 12/23/16 at 16:30 Bisacodyl (Dulcolax) 5 mg DAILY PRN PO CONSTIPATION; Start 12/23/16 at 16:30 Pantoprazole 40 mg 40 mg DAILY@06 IV Last administered on 01/03/17 05:53; Admin Dose 40 MG; Start 12/24/16 at 06:00 Propofol 100 ml @ 2.346 mls/ hr Q12H IV Last administered on 01/03/17 05:53; Admin Dose 18.768 MLS/HR; Start 12/23/16 at 22:00 Vancomycin HCl/ Sodium Chloride (Vancocin/NS) 150 ml @ 75 mls/hr Q24H IVPB Last administered on 01/02/17 12:38; Admin Dose 75 MLS/HR; Start 12/26/16 at 12: 00 Vancomycin HCl PER PHARMACY DOSING NOTE XX ; Start 12/26/16 at 11:00 Fluconazole/ Sodium Chloride 50 ml @ 50 mls/hr Q24H IVPB Last administered on 15:09; Admin Dose 50 MLS/HR; Start 12/27/16 at 13:00 Fentanyl 100 ml @ 2.5 mls/hr TITRATE IV Last administered on 01/03/17 05:54; Admin Dose 3 MLS/HR; Start 12/31/16 at 13:00 Meropenem (Merrem 1 Gm/100 ml (Pmx)) 100 ml @ 200 mls/hr Q12 IVPB Last administered on 01/03/17 08:09; Admin Dose 200 MLS/HR; Start 2/15/17 at 12:30 Lorazepam 1 mg 1 mg Q1HWA PRN IV AGITATION Last administered on 01/03/17 03:23 ; Admin Dose 1 MG; Start 01/01/17 at 23:00 Sodium Chloride 1,000 ml @ 50 mls/hr Q20H IV Last administered on 01/02/17 10 :55; Admin Dose 50 MLS/HR; Start 01/02/17 at 09:30 Magnesium Sulfate/ Sodium Chloride (Magnesium Sulfate/NS) 106 ml @ 35.333 mls/ hr ONCE ONCE IVPB Last administered on 01/03/17 09:35; Admin Dose 35.333 MLS/ HR; Start 01/03/17 at 09:15; Stop 01/03/17 at 12:14 GONZALO MCDONALD MD Jan 03, 2017 11:07
[2017-01-03] MEDS ORDERED: LIDOCAINE 1% (MDV) 20 ML INJ SC SCH (11:30)
[2017-01-03] MEDS ORDERED: FUROSEMIDE 20 MG INJ IV SCH (11:30)
--- NOTE | 2017-01-03 11:43 | PN ---
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 1. Sepsis - 2/2 to Influenza Pneumonia with superimposed healthcare-associated pneumonia as well as possible aspiration - pt completed tamiflu - continue IV antibiotics Meropenem (restarted) + Fluconazole - f/u repeat Flu A test - results pending - f/u ID rec's. 2. Acute hypoxemic respiratory failure - still intubated. - wean as tolerated - f/u pulm rec's 3. Severe thrombocytopenia - sec to CML + PNA. 16 today again. HIT antibodies was negative. 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 4. Acute on chronic renal failure - 2/2 to sepsis - resolving now. - continue IVF - renally adjust medications, avoid nephrotoxins, appreciate renal consult 5. Anemia - of chronic disease -H/H presently low nL range - transfuse pRBC today, f/u hem/onc rec's, ferrilicit 6. CML/MDS - per Heme/Onc patient has been treated with azacytadine and lenalidomide with little effect. - continue with hem/onc recs 7. CHF with diastolic heart failure - consult cardiology, type II NSTEMI ? - demand ischemia, recent ECHO EF 45%, diastolic dysfunction 8. COPD - see #1 9. GERD - continue with IV protonix 10. Smoking abuse - advised patient on cessation 11. Hypernatremia - resolved - suspect sec to dehydration vs volume depletion vs other - continue with free water and D5W as per nephro - improving 12. GI ppx - protonix 13. DVT ppx - contraindicated for anticoagulation - monitor acute changes dispo - f/u recs, monitor changes, prognosis is guarded/poor - f/u palliative care consult - per their rec's, trying to get in touch with the about setting up another family meeting (third one); if no improvement, code status needs to be reassessed Critical care time spent today = 50 min. Problems: Subjective 24 Hr Interval Summary Free Text/Dictation Pt presently undergoing CPAP trial, awaiting pRBC blood transfusion as well. Exam/Review of Systems Vital Signs Vitals Vital Signs Date Time Temp Pulse Resp B/P Pulse Ox O2 Delivery O2 Flow Rate FiO2 01/03/17 10:45 89 14 113/63 97 01/03/17 10:00 Mechanical Ventilator 01/03/17 08:05 30 01/03/17 08:00 98.5 Intake and Output 01/02/17 01/02/17 01/03/17 15:00 23:00 07:00 Intake Total 825 ml 988.5 ml 851.8 ml Output Total 1010 ml 790 ml 685 ml Balance -185 ml 198.5 ml 166.8 ml Exam Gen [place]: intubated, udergoign CPAP trial presently. HEENT: NC/AT, PERRLA, ETT NECK: supple, no thyromegaly THORAX: symmetrical, no obvious deformities CV: S1S2, no M/G/R Lungs: coarse breath sounds throughout all lung masters, diminished at the bases , with end expiratory wheezing Abd: soft, NT/ND, +BS, no rebound, no guarding, neg HSM, scaphoid EXT: 1+ edema, no ecchymosis, no clubbing, FROM, muscle wasting noted Neuro: intubated/sedated Psych: cannot assess Skin: scattered petechiae Results Result Diagram: 01/03/17 0555 01/03/17 0555 Results 24 hrs Laboratory Tests Test 01/03/17 05:55 Anion Gap 13 Basophils # Basophils % Blast Cells % 4.0 H Blastocytes # 0.5 Blood Morphology Comment Blood Urea Nitrogen 14 Calcium Level 7.7 L Carbon Dioxide Level 25 Chloride Level 108 Creatinine 1.29 H Eosinophils # 0.1 Eosinophils % 1.0 Glucose Level 80 Hematocrit 24.0 L Hemoglobin 7.9 L Lymphocytes # 6.7 H Lymphocytes % 50.0 Magnesium Level 1.3 L Mean Corpuscular Hemoglobin 28.2 L Mean Corpuscular Hemoglobin Concent 33.2 Mean Corpuscular Volume 85.0 Mean Platelet Volume 11.2 H Monocytes # 5.6 H Monocytes % 42.0 H Neutrophils # 0.3 L Neutrophils % 2.0 L Nucleated Red Blood Cells # Nucleated Red Blood Cells % Platelet Count 16 *L Platelet Estimate PLT APPEAR DECREASED Potassium Level 3.8 Promyelocytes # 0.1 Promyelocytes % 1.0 H Red Blood Count 2.82 L Red Cell Distribution Width 19.7 H Sodium Level 142 White Blood Count 13.4 H Medications Medications Current Medications Ondansetron HCl (Zofran Inj) 4 mg Q6H PRN IV NAUSEA AND/OR VOMITING; Start 12/23 at 16:30 Nitroglycerin (Nitroglycerin (Sl Tab) 0.4 Mg) 1 tab Q5M PRN SL CHEST PAIN; Start 12/23/16 at 16:30 Acetaminophen (Tylenol Supp) 650 mg Q4H PRN [place] PAIN LEVEL 1-3 OR FEVER Last administered on 12/25/16 01:06; Admin Dose 650 MG; Start 12/23/16 at 16:30 Bisacodyl (Dulcolax) 5 mg DAILY PRN PO CONSTIPATION; Start 12/23/16 at 16:30 Pantoprazole 40 mg 40 mg DAILY@06 IV Last administered on 01/03/17 05:53; Admin Dose 40 MG; Start 12/24/16 at 06:00 Propofol 100 ml @ 2.346 mls/ hr Q12H IV Last administered on 01/03/17 05:53; Admin Dose 18.768 MLS/HR; Start 12/23/16 at 22:00 Vancomycin HCl/ Sodium Chloride (Vancocin/NS) 150 ml @ 75 mls/hr Q24H IVPB Last administered on 01/02/17 12:38; Admin Dose 75 MLS/HR; Start 12/26/16 at 12: 00 Vancomycin HCl PER PHARMACY DOSING NOTE XX ; Start 12/26/16 at 11:00 Fluconazole/ Sodium Chloride 50 ml @ 50 mls/hr Q24H IVPB Last administered on 15:09; Admin Dose 50 MLS/HR; Start 12/27/16 at 13:00 Fentanyl 100 ml @ 2.5 mls/hr TITRATE IV Last administered on 01/03/17 05:54; Admin Dose 3 MLS/HR; Start 12/31/16 at 13:00 Meropenem (Merrem 1 Gm/100 ml (Pmx)) 100 ml @ 200 mls/hr Q12 IVPB Last administered on 01/03/17 08:09; Admin Dose 200 MLS/HR; Start 01/01/17 at 12:30 Lorazepam 1 mg 1 mg Q1HWA PRN IV AGITATION Last administered on 01/03/17 03:23 ; Admin Dose 1 MG; Start 01/01/17 at 23:00 Sodium Chloride 1,000 ml @ 50 mls/hr Q20H IV Last administered on 01/02/17 10 :55; Admin Dose 50 MLS/HR; Start 01/02/17 at 09:30 Magnesium Sulfate/ Sodium Chloride (Magnesium Sulfate/NS) 106 ml @ 35.333 mls/ hr ONCE ONCE IVPB Last administered on 01/03/17 09:35; Admin Dose 35.333 MLS/ HR; Start 01/03/17 at 09:15; Stop 01/03/17 at 12:14 Furosemide (Lasix) 20 mg ONCE IV ; Start 01/03/17 at 11:30; Stop 01/03/17 at 23: 00 Lidocaine (Xylocaine 1% (Mdv) 20 ml) 20 ml ONCE SC ; Start 01/03/17 at 11:30; Stop 01/03/17 at 23:00 ANA RATLIFF Jan 03, 2017 11:43
[2017-01-03 11:55] LABS: AADO2 Arterial 88.8 mmHg (7.0-24.0); Allen Test ACCEPTAB; Arterial Base Excess -0.9 mmol/L (-3.0-3); Arterial COHb 0.3 % (0.0-3.0); Arterial Fraction of Oxyhgb 94.5 % (93.0-99.0); Arterial HCO3 23.5 mmol/L (22.0-26.0); Arterial MetHb 0.5 % (0.0-1.5); Arterial Total Hemglobin 10.4 g/dl (12.0-18.0); Blood Gas PS 10; MODE VENT - CPAP
[2017-01-03] MEDS: VANCOMYCIN 750 MG in SOD CHLORIDE 0.9% 150 ML IVPB SCH (12:26)
[2017-01-03] MEDS: FLUCONAZOLE 100 MG/NS (PMX) 50 ML IVPB SCH (13:14)
--- NOTE | 2017-01-03 14:17 | CONS ---
Date/Time of Note Date/Time of Note DATE: 01/03/17 TIME: 14:15 Assessment/Plan Assessment/Plan Chief Complaint/Hosp Course SUBJECTIVE: No acute changes overnight. Looks comfortable on vent. MICROBIOLOGY: Sputum culture sent on 12/30/2016 growing staph species. INDWELLINGS: Endotracheal tube, NG tube, Leyva catheter, peripheral IV. ANTIMICROBIALS: 1. Fluconazole. 2. Vancomycin. 3. Meropenem . PHYSICAL EXAMINATION: GENERAL: Fragile, elderly man who is in no distress. HEENT: Head atraumatic, normocephalic. Sclerae anicteric. Buccal mucosa dry. NECK: Supple, trachea midline. CHEST: Rise symmetrical. Breath sounds diminished to bases. HEART: S1, S2. ABDOMEN: Soft, bowel sounds present. EXTREMITIES: Without cyanosis. ASSESSMENT: 1. Resolving sepsis status post shock. 2. Acute respiratory failure secondary to bilateral pneumonia, unable to be extubated. 3. Status post influenza A virus. 4. Myelodysplasia, oncology follows. 5. Acute renal failure. PLAN: The patient remains stable. Repeat nasopharyngeal swab neg influenza, will dc abx and start on PO Doxycycline to cover staph that he grows from his sputum, dc isolation, continue vent management as per pulmonary team. NINA RN Problems: Consultation Date/Type/Reason Admit Date/Time Dec 23, 2016 at 15:37 Initial Consult Date 12/24/16 Type of Consultation: ID Referring Provider: BEN COURTNEY MD Exam/Review of Systems Vital Signs Vitals Vital Signs Date Time Temp Pulse Resp B/P Pulse Ox O2 Delivery O2 Flow Rate FiO2 01/03/17 13:00 121 21 156/85 94 Mechanical Ventilator 01/03/17 12:45 3.0 01/03/17 12:00 98.6 01/03/17 08:10 30 Intake and Output 01/02/17 01/02/17 01/03/17 15:00 23:00 07:00 Intake Total 825 ml 988.5 ml 851.8 ml Output Total 1010 ml 790 ml 685 ml Balance -185 ml 198.5 ml 166.8 ml Results Result Diagram: 01/03/17 0555 01/03/17 0555 Results 24 hrs Laboratory Tests Test 01/03/17 05:55 01/03/17 11:03 01/03/17 11:29 Anion Gap 13 Basophils # Basophils % Blast Cells % 4.0 H Blastocytes # 0.5 Blood Morphology Comment Blood Urea Nitrogen 14 Calcium Level 7.7 L Carbon Dioxide Level 25 Chloride Level 108 Creatinine 1.29 H Eosinophils # 0.1 Eosinophils % 1.0 Glucose Level 80 Hematocrit 24.0 L Hemoglobin 7.9 L Lymphocytes # 6.7 H Lymphocytes % 50.0 Magnesium Level 1.3 L Mean Corpuscular Hemoglobin 28.2 L Mean Corpuscular Hemoglobin Concent 33.2 Mean Corpuscular Volume 85.0 Mean Platelet Volume 11.2 H Monocytes # 5.6 H Monocytes % 42.0 H Neutrophils # 0.3 L Neutrophils % 2.0 L Nucleated Red Blood Cells # Nucleated Red Blood Cells % Platelet Count 16 *L Platelet Estimate PLT APPEAR DECREASED Potassium Level 3.8 Promyelocytes # 0.1 Promyelocytes % 1.0 H Red Blood Count 2.82 L Red Cell Distribution Width 19.7 H Sodium Level 142 White Blood Count 13.4 H Vancomycin Level Trough 14.4 Arterial Blood HCO3 23.5 Arterial Blood Base Excess -0.9 Arterial Blood Oxygen Saturation 95.3 Dar Test ACCEPTAB Arterial Blood Gas Puncture Site Right Radial Arterial Blood Carboxyhemoglobin 0.3 Arterial Blood Date Drawn 01/03/2017 11:50:08 AM Arterial Blood Methemoglobin 0.5 Arterial Blood pCO2 (Temp correct) 37.8 Arterial Blood pH (Temp corrected) 7.411 Arterial Blood pO2 (Temp corrected) 80.7 Blood Gas A-a O2 Differential 88.8 H Blood Gas Actual Respiration Rate 11 Blood Gas Low PEEP Setting 5.0 Blood Gas Modality VENT - CPAP Blood Gas Notified Time 01/03/2017 11:55:27 AM Blood Gas Notified Whom Blood Gas Pressure Support 10 Blood Gas Specimen Source Blood arterial Blood Gas Temperature 37.0 FiO2 30.0 Oxyhemoglobin Percent 94.5 Total Hemoglobin 10.4 L Medications Medications Current Medications Ondansetron HCl (Zofran Inj) 4 mg Q6H PRN IV NAUSEA AND/OR VOMITING; Start 12/23 at 16:30 Nitroglycerin (Nitroglycerin (Sl Tab) 0.4 Mg) 1 tab Q5M PRN SL CHEST PAIN; Start 12/23/16 at 16:30 Acetaminophen (Tylenol Supp) 650 mg Q4H PRN [place] PAIN LEVEL 1-3 OR FEVER Last administered on 12/25/16 01:06; Admin Dose 650 MG; Start 12/23/16 at 16:30 Bisacodyl (Dulcolax) 5 mg DAILY PRN PO CONSTIPATION; Start 12/23/16 at 16:30 Pantoprazole 40 mg 40 mg DAILY@06 IV Last administered on 01/03/17 05:53; Admin Dose 40 MG; Start 12/24/16 at 06:00 Propofol 100 ml @ 2.346 mls/ hr Q12H IV Last administered on 01/03/17 05:53; Admin Dose 18.768 MLS/HR; Start 12/23/16 at 22:00 Vancomycin HCl/ Sodium Chloride (Vancocin/NS) 150 ml @ 75 mls/hr Q24H IVPB Last administered on 01/03/17 12:26; Admin Dose 75 MLS/HR; Start 12/26/16 at 12: 00 Vancomycin HCl PER PHARMACY DOSING NOTE XX ; Start 12/26/16 at 11:00 Fluconazole/ Sodium Chloride 50 ml @ 50 mls/hr Q24H IVPB Last administered on 13:14; Admin Dose 50 MLS/HR; Start 12/27/16 at 13:00 Fentanyl 100 ml @ 2.5 mls/hr TITRATE IV Last administered on 01/03/17 05:54; Admin Dose 3 MLS/HR; Start 12/31/16 at 13:00 Meropenem (Merrem 1 Gm/100 ml (Pmx)) 100 ml @ 200 mls/hr Q12 IVPB Last administered on 01/03/17 08:09; Admin Dose 200 MLS/HR; Start 01/01/17 at 12:30 Lorazepam 1 mg 1 mg Q1HWA PRN IV AGITATION Last administered on 01/03/17 13:03 ; Admin Dose 1 MG; Start 01/01/17 at 23:00 Sodium Chloride (1/2 NS) 1,000 ml @ 50 mls/hr Q20H IV Last administered on 10:55; Admin Dose 50 MLS/HR; Start 01/02/17 at 09:30 Furosemide (Lasix) 20 mg ONCE IV ; Start 01/03/17 at 11:30; Stop 01/03/17 at 23: 00 Lidocaine (Xylocaine 1% (Mdv) 20 ml) 20 ml ONCE SC ; Start 01/03/17 at 11:30; Stop 01/03/17 at 23:00 DARLENE CARTAGENA NP Jan 03, 2017 14:17
--- NOTE | 2017-01-03 17:05 | RADRPT ---
AMENDMENT: 01/03/2017 6:24:01 PM Andre Carlos M.D Right PICC line catheter tip overlying the mid superior vena cava. PROCEDURE: XR Chest. CLINICAL INDICATION: Line placement TECHNIQUE: Single AP portable chest COMPARISON: 01/03/2017 FINDINGS: Cardiac silhouette is normal in size. Prominence of the pulmonary vascularity and interstitial gustavo ings and pleural effusion or focal consolidation. Stable 14 mm right upper lobe nodule and calcifie d.. Atherosclerotic calcification of the aortic arch. The lungs are clear without pleural effusion or focal consolidation. No pneumothorax. The osseous structures and soft tissues are unremarkable. IMPRESSION: 1. Prominence of the pulmonary vascularity and interstitial markings. Stable right upper lobe calci fied granuloma. RPTAT:AAJJ Physician Ariel Date Time Electronically viewed and signed by Physician Ariel on 01/03/2017 18:25 LORAINE/
[2017-01-03] MEDS ORDERED: DOXYCYCLINE 100 MG TAB PO SCH (21:00)
[2017-01-03] MEDS: DOXYCYCLINE 100 MG in SOD CHLORIDE 0.9% 250 ML IVPB SCH (22:33)
[2017-01-04] VITALS (29 sets, daily range): BP systolic 121–168; BP diastolic 56–92; PULSE 94–112; RESP 14–24
[2017-01-04] MEDS: LORAZEPAM 2 MG INJ IV PRN ×5 (00:23→16:09)
[2017-01-04 05:44] LABS: HEMATOCRIT 28.9 % (42.0-52.0); HEMOGLOBIN 9.6 g/dl (14.0-18.0); MEAN CORPUSCULAR HEMOGLOBIN 27.4 pg (29.0-33.0); MEAN CORPUSCULAR HGB CONC 33.1 g/dl (32.0-37.0); MEAN CORPUSCULAR VOLUME 82.7 fl (82.0-101.0); MEAN PLATELET VOLUME 11.1 fl (7.4-10.4); RED BLOOD COUNT 3.49 10^6/ul (4.70-6.10); UNCORRECTED WBC 33.5 10^3/ul (4.8-10.8); WHITE BLOOD COUNT 33.5 10^3/ul (4.8-10.8)
[2017-01-04] MEDS: PANTOPRAZOLE 40 MG INJ IV SCH (05:54)
[2017-01-04 05:56] LABS: CONDITION 1; LH ANALYZER COMMENTS 1; SUSPECT 1
[2017-01-04 05:58] LABS: PLATELET COUNT 17 10^3/UL (140-440)
[2017-01-04 06:01] LABS: POTASSIUM 3.7 mmol/L (3.5-5.1)
[2017-01-04 06:02] LABS: PHOSPHORUS 3.1 mg/dl (2.5-4.9)
[2017-01-04 06:03] LABS: MAGNESIUM 1.5 mg/dl (1.7-2.5)
[2017-01-04 06:04] LABS: CALCIUM 7.8 mg/dl (8.4-10.2); CREATININE 1.25 mg/dl (0.61-1.24)
--- NOTE | 2017-01-04 07:54 | PN ---
Date/Time of Note Date/Time of Note DATE: 01/04/17 TIME: 07:50 Assessment/Plan VTE Prophylaxis VTE Prophylaxis Intervention: other (low platelets) Lines/Catheters IV [facility] Type (from [facility] PICC Line Central line still needed: Yes Urinary Cath still in place: Yes Reason Cath still needed: other (indicate) (confusion) Assessment/Plan Assessment/Plan Hgb is up after RBC transfusion. Thrombocytopenia is stable. If there were clinical bleeding or a surgical procedure, platelet transfusion would be needed. Pt extubated but confused. No active bleeding issues. Subjective 24 Hr Interval Summary Constitutional: disoriented Exam/Review of Systems Vital Signs Vitals Vital Signs Date Time Temp Pulse Resp B/P Pulse Ox O2 Delivery O2 Flow Rate FiO2 01/04/17 07:00 100 19 148/78 95 Nasal Cannula 01/04/17 04:00 99.1 01/04/17 01:22 2.0 28 Intake and Output 01/03/17 01/03/17 01/04/17 15:00 23:00 07:00 Intake Total 565.7 ml 400 ml 1000 ml Output Total 580 ml 870 ml 850 ml Balance -14.3 ml -470 ml 150 ml Exam Head: atraumatic, normocephalic Eyes: other (mild pallor) Respiratory: diminished breath sounds Cardiovascular: regular rate and rhythm Gastrointestinal: soft Neurological: confused Results Result Diagram: 01/04/1715 01/04/17 0515 Results 24 hrs Laboratory Tests Test 01/03/17 11:03 01/03/17 11:29 01/04/17 05:15 Vancomycin Level Trough 14.4 Arterial Blood HCO3 23.5 Arterial Blood Base Excess -0.9 Arterial Blood Oxygen Saturation 95.3 Dar Test ACCEPTAB Arterial Blood Gas Puncture Site Right Radial Arterial Blood Carboxyhemoglobin 0.3 Arterial Blood Date Drawn 01/03/2017 11:50:08 AM Arterial Blood Methemoglobin 0.5 Arterial Blood pCO2 (Temp correct) 37.8 Arterial Blood pH (Temp corrected) 7.411 Arterial Blood pO2 (Temp corrected) 80.7 Blood Gas A-a O2 Differential 88.8 H Blood Gas Actual Respiration Rate 11 Blood Gas Low PEEP Setting 5.0 Blood Gas Modality VENT - CPAP Blood Gas Notified Time 01/03/2017 11:55:27 AM Blood Gas Notified Whom Blood Gas Pressure Support 10 Blood Gas Specimen Source Blood arterial Blood Gas Temperature 37.0 FiO2 30.0 Oxyhemoglobin Percent 94.5 Total Hemoglobin 10.4 L Anion Gap 19 H Basophils # Basophils % Blood Morphology Comment Blood Urea Nitrogen 15 Calcium Level 7.8 L Carbon Dioxide Level 22 Chloride Level 109 Creatinine 1.25 H Eosinophils # Eosinophils % Glucose Level 101 Hematocrit 28.9 #L Hemoglobin 9.6 #L Lymphocytes # Lymphocytes % Magnesium Level 1.5 L Mean Corpuscular Hemoglobin 27.4 L Mean Corpuscular Hemoglobin Concent 33.1 Mean Corpuscular Volume 82.7 Mean Platelet Volume 11.1 H Monocytes # Neutrophils # Neutrophils % Nucleated Red Blood Cells # Nucleated Red Blood Cells % Phosphorus Level 3.1 Platelet Count 17 *L Potassium Level 3.7 Red Blood Count 3.49 #L Red Cell Distribution Width 19.0 H Sodium Level 146 H White Blood Count 33.5 #H Medications Medications Current Medications Ondansetron HCl (Zofran Inj) 4 mg Q6H PRN IV NAUSEA AND/OR VOMITING; Start 12/23 at 16:30 Nitroglycerin (Nitroglycerin (Sl Tab) 0.4 Mg) 1 tab Q5M PRN SL CHEST PAIN; Start 12/23/16 at 16:30 Acetaminophen (Tylenol Supp) 650 mg Q4H PRN [place] PAIN LEVEL 1-3 OR FEVER Last administered on 12/25/16 01:06; Admin Dose 650 MG; Start 12/23/16 at 16:30 Bisacodyl (Dulcolax) 5 mg DAILY PRN PO CONSTIPATION; Start 12/23/16 at 16:30 Pantoprazole 40 mg 40 mg DAILY@06 IV Last administered on 01/04/17 05:54; Admin Dose 40 MG; Start 12/24/16 at 06:00 Propofol 100 ml @ 2.346 mls/ hr Q12H IV Last administered on 01/03/17 05:53; Admin Dose 18.768 MLS/HR; Start 12/23/16 at 22:00 Fentanyl (Sublimaze) 100 ml @ 2.5 mls/hr TITRATE IV Last administered on 05:54; Admin Dose 3 MLS/HR; Start 12/31/16 at 13:00 Lorazepam 1 mg 1 mg Q1HWA PRN IV AGITATION Last administered on 01/04/17 06:10 ; Admin Dose 1 MG; Start 01/01/17 at 23:00 Sodium Chloride (1/2 NS) 1,000 ml @ 50 mls/hr Q20H IV Last administered on 16:53; Admin Dose 50 MLS/HR; Start 01/02/17 at 09:30 IV Flush 10 ml 10 ml PRN PRN IV IV PROTOCOL; Start 01/03/17 at 16:30 Doxycycline Hyclate/Sodium Chloride (Vibramycin/NS) 250 ml @ 250 mls/hr Q12 IVPB Last administered on 01/03/17 22:33; Admin Dose 250 MLS/HR; Start at 21:00 GONZALO MCDONALD MD Jan 04, 2017 07:54
[2017-01-04] MEDS: DOXYCYCLINE 100 MG in SOD CHLORIDE 0.9% 250 ML IVPB SCH ×2 (08:29→20:49)
[2017-01-04] MEDS: PROPOFOL 100 ML IV SCH ×2 (08:30→22:00)
[2017-01-04 10:14] LABS: BASOPHIL # 0.7 10^3/ul (0.0-0.1); EOSINOPHILS # 0.3 10^3/ul (0.0-0.5); LYMPHOCYTES # 3.4 10^3/ul (0.8-2.9); MONOCYTE # 20.1 10^3/ul (0.3-0.9); MYELOCYTES # 0.7; NEUTROPHIL # 1.7 10^3/ul (1.6-7.5)
[2017-01-04 10:15] LABS: PLATELET ESTIMATE PLT APPEAR DECREASED
--- NOTE | 2017-01-04 10:29 | CONS ---
Date/Time of Note Date/Time of Note DATE: 01/04/17 TIME: 10:25 Assessment/Plan Assessment/Plan Additional Assessment/Plan 1. Acute kidney injury, likely secondary to acute tubular necrosis in the setting of sepsis.-improved 2. Acute hypoxemic respiratory failure, multifactorial, secondary to sepsis and secondary to pulmonary congestion s/p extubation 3. Acute pulmonary edema with influenza pneumonia.- now improved 4. History of congestive heart failure with diastolic heart failure. 5. History of chronic obstructive pulmonary disease. 6. History of gastroesophageal reflux disease. 7. History of smoking. 8. 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 9. Hypomagnesemia PLAN: making good urine 2.2 Liter, renal function has been improved , Cr 1.25 magnesium sulfate 2 gram IV x 1 dose now IV abx as per ID will follow up this critical care note took greater than 45 min to complete Consultation Date/Type/Reason Admit Date/Time Dec 23, 2016 at 15:37 Initial Consult Date 12/23/16 Type of Consultation: NEPHROLOGY Reason for Consultation Acute kidney injury Referring Provider: BEN COURTNEY MD 24 HR Interval Summary Free Text/Dictation pt extubated, pt lethargic , BP stable, cr stable, Mag low Exam/Review of Systems Vital Signs Vitals Vital Signs Date Time Temp Pulse Resp B/P Pulse Ox O2 Delivery O2 Flow Rate FiO2 01/04/17 08:00 97.0 110 18 168/91 97 Nasal Cannula 01/04/17 01:22 2.0 28 Intake and Output 01/03/17 01/03/17 01/04/17 15:00 23:00 07:00 Intake Total 565.7 ml 400 ml 1000 ml Output Total 580 ml 870 ml 850 ml Balance -14.3 ml -470 ml 150 ml Exam Gen [place]: lethargic, extubated CV: S1S2, tachycardiac, no M/G/R Lungs: coarse breath sounds throughout all lung masters, diminished at the bases , with end expiratory wheezing, improving daily Abd: soft, NT/ND, +BS, no rebound, no guarding, neg HSM, scaphoid EXT: 1+ edema, no ecchymosis, no clubbing, FROM, muscle wasting noted Results Result Diagram: 01/04/17 0515 01/04/17 0515 Results 24 hrs Laboratory Tests Test 01/03/17 11:03 01/03/17 11:29 01/04/17 05:15 Vancomycin Level Trough 14.4 Arterial Blood HCO3 23.5 Arterial Blood Base Excess -0.9 Arterial Blood Oxygen Saturation 95.3 Dar Test ACCEPTAB Arterial Blood Gas Puncture Site Right Radial Arterial Blood Carboxyhemoglobin 0.3 Arterial Blood Date Drawn 01/03/2017 11:50:08 AM Arterial Blood Methemoglobin 0.5 Arterial Blood pCO2 (Temp correct) 37.8 Arterial Blood pH (Temp corrected) 7.411 Arterial Blood pO2 (Temp corrected) 80.7 Blood Gas A-a O2 Differential 88.8 H Blood Gas Actual Respiration Rate 11 Blood Gas Low PEEP Setting 5.0 Blood Gas Modality VENT - CPAP Blood Gas Notified Time 01/03/2017 11:55:27 AM Blood Gas Notified Whom MH Blood Gas Pressure Support 10 Blood Gas Specimen Source Blood arterial Blood Gas Temperature 37.0 FiO2 30.0 Oxyhemoglobin Percent 94.5 Total Hemoglobin 10.4 L Anion Gap 19 H Band Neutrophils % 6.0 H Basophils # 0.7 H Basophils % 2.0 Blast Cells % 9.0 H Blastocytes # 3.0 Blood Morphology Comment Blood Urea Nitrogen 15 Calcium Level 7.8 L Carbon Dioxide Level 22 Chloride Level 109 Creatinine 1.25 H Eosinophils # 0.3 Eosinophils % 1.0 Glucose Level 101 Hematocrit 28.9 #L Hemoglobin 9.6 #L Lymphocytes # 3.4 H Lymphocytes % 10.0 L Magnesium Level 1.5 L Mean Corpuscular Hemoglobin 27.4 L Mean Corpuscular Hemoglobin Concent 33.1 Mean Corpuscular Volume 82.7 Mean Platelet Volume 11.1 H Metamyelocytes # 0.3 Metamyelocytes % 1.0 H Monocytes # 20.1 H Monocytes % 60.0 H Myelocytes # 0.7 Myelocytes % 2.0 H Neutrophils # 1.7 Neutrophils % 5.0 L Nucleated Red Blood Cells # Nucleated Red Blood Cells % Phosphorus Level 3.1 Platelet Count 17 *L Platelet Estimate PLT APPEAR DECREASED Potassium Level 3.7 Promyelocytes # 1.3 Promyelocytes % 4.0 H Red Blood Count 3.49 #L Red Cell Distribution Width 19.0 H Sodium Level 146 H White Blood Count 33.5 #H Medications Medications Current Medications Ondansetron HCl (Zofran Inj) 4 mg Q6H PRN IV NAUSEA AND/OR VOMITING; Start 2 /17 at 16:30 Nitroglycerin (Nitroglycerin (Sl Tab) 0.4 Mg) 1 tab Q5M PRN SL CHEST PAIN; Start 12/23/16 at 16:30 Acetaminophen (Tylenol Supp) 650 mg Q4H PRN [place] PAIN LEVEL 1-3 OR FEVER Last administered on 12/25/16 01:06; Admin Dose 650 MG; Start 12/23/16 at 16:30 Bisacodyl (Dulcolax) 5 mg DAILY PRN PO CONSTIPATION; Start 12/23/16 at 16:30 Pantoprazole 40 mg 40 mg DAILY@06 IV Last administered on 01/04/17 05:54; Admin Dose 40 MG; Start 12/24/16 at 06:00 Propofol 100 ml @ 2.346 mls/ hr Q12H IV Last administered on 01/03/17 05:53; Admin Dose 18.768 MLS/HR; Start 12/23/16 at 22:00 Fentanyl (Sublimaze) 100 ml @ 2.5 mls/hr TITRATE IV Last administered on 05:54; Admin Dose 3 MLS/HR; Start 12/31/16 at 13:00 Lorazepam 1 mg 1 mg Q1HWA PRN IV AGITATION Last administered on 01/04/17 08:30 ; Admin Dose 1 MG; Start 01/01/17 at 23:00 Sodium Chloride (1/2 NS) 1,000 ml @ 50 mls/hr Q20H IV Last administered on 16:53; Admin Dose 50 MLS/HR; Start 01/02/17 at 09:30 IV Flush 10 ml 10 ml PRN PRN IV IV PROTOCOL; Start 01/03/17 at 16:30 Doxycycline Hyclate 100 mg/ Sodium Chloride 250 ml @ 250 mls/hr Q12 IVPB Last administered on 01/04/17 08:29; Admin Dose 250 MLS/HR; Start 01/03/17 at 21:00 Magnesium Sulfate (Magnesium Sulfate 2 Gm/50 ml) 50 ml @ 25 mls/hr ONCE ONCE IVPB ; Start 01/04/17 at 10:30; Stop 01/04/17 at 12:29 GILL PEREIRA MD Jan 04, 2017 10:29
[2017-01-04] MEDS ORDERED: MAGNESIUM SULFATE 2 GM/50 ML 50 ML IVPB ONE (10:30)
--- NOTE | 2017-01-04 12:20 | CONS ---
Date/Time of Note Date/Time of Note DATE: 01/04/17 TIME: 12:18 Assessment/Plan Assessment/Plan Chief Complaint/Hosp Course IMPRESSION: 1. 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 Cardiomyopathy with decreased left ventricular ejection fraction, last being approximately 45% to 50% by echo 11/2016. 3. Hypotension, borderline. 4. Influenza positive. 5. History of chronic myelogenous leukemia. 6. Renal failure-slowly improving. 7. Thrombocytopenia, severe. 8. Anemia. 9. Leukocytosis. Recc: -Tele -serial ecg's -Continue abx's and f/u cx data -Follow volume status closely -continue tamiflu -Wean vent as tolerated -Follow volume status closely -Follow BP closely -Follow for bleeding complications/need for platelet transfusion Problems: Consultation Date/Type/Reason Admit Date/Time Dec 23, 2016 at 15:37 Initial Consult Date 12/24/16 Type of Consultation: Cardiology Reason for Consultation cardiomyopathy Referring Provider: BEN COURTNEY MD Exam/Review of Systems Vital Signs Vitals Vital Signs Date Time Temp Pulse Resp B/P Pulse Ox O2 Delivery O2 Flow Rate FiO2 01/04/17 08:00 98 01/04/17 08:00 97.0 18 168/91 97 Nasal Cannula 01/04/17 01:22 2.0 28 Intake and Output 01/03/17 01/03/17 01/04/17 15:00 23:00 07:00 Intake Total 565.7 ml 400 ml 1000 ml Output Total 580 ml 870 ml 850 ml Balance -14.3 ml -470 ml 150 ml Exam Review of Systems: CONSTITUTIONAL: No fevers, chills. PULMONARY: No sob CARDIOVASCULAR: No chest pain/palpitations GASTROINTESTINAL: No nausea/vomiting. GENITOURINARY: No hematuria/dysuria. MUSCULOSKELETAL: No myagias/arthalgias. PSYCHIATRIC: The patient denies depression. NEUROLOGIC: sedated Constitutional: alert, oriented Psych: no complaints Head: normocephalic ENMT: mucosa pink and moist Neck: jvd (9 cm water), supple Respiratory: diminished breath sounds (at bases/B) Cardiovascular: regular rate and rhythm Gastrointestinal: non-tender, soft Musculoskeletal: muscle tone Extremities: edema Neurological: other (sedated) Results Result Diagram: 01/04/17 0515 01/04/17 0515 Results 24 hrs Laboratory Tests Test 01/04/17 05:15 Anion Gap 19 H Band Neutrophils % 6.0 H Basophils # 0.7 H Basophils % 2.0 Blast Cells % 9.0 H Blastocytes # 3.0 Blood Morphology Comment Blood Urea Nitrogen 15 Calcium Level 7.8 L Carbon Dioxide Level 22 Chloride Level 109 Creatinine 1.25 H Eosinophils # 0.3 Eosinophils % 1.0 Glucose Level 101 Hematocrit 28.9 #L Hemoglobin 9.6 #L Lymphocytes # 3.4 H Lymphocytes % 10.0 L Magnesium Level 1.5 L Mean Corpuscular Hemoglobin 27.4 L Mean Corpuscular Hemoglobin Concent 33.1 Mean Corpuscular Volume 82.7 Mean Platelet Volume 11.1 H Metamyelocytes # 0.3 Metamyelocytes % 1.0 H Monocytes # 20.1 H Monocytes % 60.0 H Myelocytes # 0.7 Myelocytes % 2.0 H Neutrophils # 1.7 Neutrophils % 5.0 L Nucleated Red Blood Cells # Nucleated Red Blood Cells % Phosphorus Level 3.1 Platelet Count 17 *L Platelet Estimate PLT APPEAR DECREASED Potassium Level 3.7 Promyelocytes # 1.3 Promyelocytes % 4.0 H Red Blood Count 3.49 #L Red Cell Distribution Width 19.0 H Sodium Level 146 H White Blood Count 33.5 #H Medications Medications Current Medications Ondansetron HCl (Zofran Inj) 4 mg Q6H PRN IV NAUSEA AND/OR VOMITING; Start 12/23 at 16:30 Nitroglycerin (Nitroglycerin (Sl Tab) 0.4 Mg) 1 tab Q5M PRN SL CHEST PAIN; Start 12/23/16 at 16:30 Acetaminophen (Tylenol Supp) 650 mg Q4H PRN [place] PAIN LEVEL 1-3 OR FEVER Last administered on 12/25/16 01:06; Admin Dose 650 MG; Start 12/23/16 at 16:30 Bisacodyl (Dulcolax) 5 mg DAILY PRN PO CONSTIPATION; Start 12/23/16 at 16:30 Pantoprazole 40 mg 40 mg DAILY@06 IV Last administered on 01/04/17 05:54; Admin Dose 40 MG; Start 12/24/16 at 06:00 Propofol 100 ml @ 2.346 mls/ hr Q12H IV Last administered on 01/03/17 05:53; Admin Dose 18.768 MLS/HR; Start 12/23/16 at 22:00 Fentanyl (Sublimaze) 100 ml @ 2.5 mls/hr TITRATE IV Last administered on 05:54; Admin Dose 3 MLS/HR; Start 12/31/16 at 13:00 Lorazepam 1 mg 1 mg Q1HWA PRN IV AGITATION Last administered on 01/04/17 12:00 ; Admin Dose 1 MG; Start 01/01/17 at 23:00 Sodium Chloride (1/2 NS) 1,000 ml @ 50 mls/hr Q20H IV Last administered on 16:53; Admin Dose 50 MLS/HR; Start 01/02/17 at 09:30 IV Flush 10 ml 10 ml PRN PRN IV IV PROTOCOL; Start 01/03/17 at 16:30 Doxycycline Hyclate 100 mg/ Sodium Chloride 250 ml @ 250 mls/hr Q12 IVPB Last administered on 01/04/17 08:29; Admin Dose 250 MLS/HR; Start 01/03/17 at 21:00 Magnesium Sulfate (Magnesium Sulfate 2 Gm/50 ml) 50 ml @ 25 mls/hr ONCE ONCE IVPB Last administered on 01/04/17 11:00; Admin Dose 25 MLS/HR; Start at 10:30; Stop 01/04/17 at 12:29 MILENA VELA Jan 04, 2017 12:20
--- NOTE | 2017-01-04 12:32 | PN ---
Date/Time of Note Date/Time of Note DATE: 01/04/17 TIME: 12:28 Assessment/Plan VTE Prophylaxis VTE Prophylaxis Intervention: contraindicated VTE Contraindication Reason: thrombocytopenia Lines/Catheters IV Catheter Type (from Nrsg): PICC Line Central line still needed: Yes Urinary Cath still in place: Yes Reason Cath still needed: urinary retention Assessment/Plan Chief Complaint/Hosp Course Assessment/Plan: 71 yo male with a past medical history of CML on chemotherapy, MDS, GERD, COPD, anemia of chronic disease, who presents with acute shortness of breath sec to + influenza. 1. Sepsis - 2/2 to Influenza Pneumonia with superimposed healthcare-associated pneumonia as well as possible aspiration - pt completed tamiflu, repeat flu A test is neg. - continue PO doxycycline now. - f/u ID rec's. 2. Acute hypoxemic respiratory failure - extubated now - continue PO abx (see # 1) - f/u pulm rec's 3. Severe thrombocytopenia - sec to CML + PNA. 17 today again. HIT antibodies was negative. 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 4. Acute on chronic renal failure - 2/2 to sepsis - resolving now. - continue IVF - renally adjust medications, avoid nephrotoxins, appreciate renal consult 5. Anemia - of chronic disease -H/H presently low nL range - f/u hem/onc rec's, ferrilicit 6. CML/MDS - per Heme/Onc patient has been treated with azacytadine and lenalidomide with little effect. - continue with hem/onc recs 7. CHF with diastolic heart failure - consult cardiology, type II NSTEMI ? - demand ischemia, recent ECHO EF 45%, diastolic dysfunction 8. COPD - see #1 9. GERD - continue with IV protonix 10. Smoking abuse - advised patient on cessation 11. Hypernatremia - resolved - suspect sec to dehydration vs volume depletion vs other - continue with free water and D5W as per nephro - improving 12. GI ppx - protonix 13. DVT ppx - contraindicated for anticoagulation - monitor acute changes dispo - f/u recs, monitor changes, prognosis is guarded/poor - f/u palliative care consult - per their rec's, trying to get in touch with the about setting up another family meeting (third one); if no improvement, code status needs to be reassessed Critical care time spent today = 40 min. Problems: Subjective 24 Hr Interval Summary Free Text/Dictation Pt extubated yesterday, received PICC as well. Still lethargic. Exam/Review of Systems Vital Signs Vitals Vital Signs Date Time Temp Pulse Resp B/P Pulse Ox O2 Delivery O2 Flow Rate FiO2 01/04/17 08:00 98 01/04/17 08:00 97.0 18 168/91 97 Nasal Cannula 01/04/17 01:22 2.0 28 Intake and Output 01/03/17 01/03/17 01/04/17 15:00 23:00 07:00 Intake Total 565.7 ml 400 ml 1000 ml Output Total 580 ml 870 ml 850 ml Balance -14.3 ml -470 ml 150 ml Exam Gen [place]: lethargic, on [place] HEENT: NC/AT, PERRLA, ETT NECK: supple, no thyromegaly THORAX: symmetrical, no obvious deformities CV: S1S2, no M/G/R Lungs: coarse breath sounds throughout all lung masters, diminished at the bases , with end expiratory wheezing Abd: soft, NT/ND, +BS, no rebound, no guarding, neg HSM, scaphoid EXT: 1+ edema, no ecchymosis, no clubbing, FROM, muscle wasting noted Neuro: intubated/sedated Psych: cannot assess Skin: scattered petechiae Results Result Diagram: 01/04/1715 01/04/1715 Results 24 hrs Laboratory Tests Test 01/04/17 05:15 Anion Gap 19 H Band Neutrophils % 6.0 H Basophils # 0.7 H Basophils % 2.0 Blast Cells % 9.0 H Blastocytes # 3.0 Blood Morphology Comment Blood Urea Nitrogen 15 Calcium Level 7.8 L Carbon Dioxide Level 22 Chloride Level 109 Creatinine 1.25 H Eosinophils # 0.3 Eosinophils % 1.0 Glucose Level 101 Hematocrit 28.9 #L Hemoglobin 9.6 #L Lymphocytes # 3.4 H Lymphocytes % 10.0 L Magnesium Level 1.5 L Mean Corpuscular Hemoglobin 27.4 L Mean Corpuscular Hemoglobin Concent 33.1 Mean Corpuscular Volume 82.7 Mean Platelet Volume 11.1 H Metamyelocytes # 0.3 Metamyelocytes % 1.0 H Monocytes # 20.1 H Monocytes % 60.0 H Myelocytes # 0.7 Myelocytes % 2.0 H Neutrophils # 1.7 Neutrophils % 5.0 L Nucleated Red Blood Cells # Nucleated Red Blood Cells % Phosphorus Level 3.1 Platelet Count 17 *L Platelet Estimate PLT APPEAR DECREASED Potassium Level 3.7 Promyelocytes # 1.3 Promyelocytes % 4.0 H Red Blood Count 3.49 #L Red Cell Distribution Width 19.0 H Sodium Level 146 H White Blood Count 33.5 #H Medications Medications Current Medications Ondansetron HCl (Zofran Inj) 4 mg Q6H PRN IV NAUSEA AND/OR VOMITING; Start 12/23 at 16:30 Nitroglycerin (Nitroglycerin (Sl Tab) 0.4 Mg) 1 tab Q5M PRN SL CHEST PAIN; Start 12/23/16 at 16:30 Acetaminophen (Tylenol Supp) 650 mg Q4H PRN [place] PAIN LEVEL 1-3 OR FEVER Last administered on 12/25/16 01:06; Admin Dose 650 MG; Start 12/23/16 at 16:30 Bisacodyl (Dulcolax) 5 mg DAILY PRN PO CONSTIPATION; Start 12/23/16 at 16:30 Pantoprazole 40 mg 40 mg DAILY@06 IV Last administered on 01/04/17 05:54; Admin Dose 40 MG; Start 12/24/16 at 06:00 Propofol 100 ml @ 2.346 mls/ hr Q12H IV Last administered on 01/03/17 05:53; Admin Dose 18.768 MLS/HR; Start 12/23/16 at 22:00 Fentanyl (Sublimaze) 100 ml @ 2.5 mls/hr TITRATE IV Last administered on 05:54; Admin Dose 3 MLS/HR; Start 12/31/16 at 13:00 Lorazepam 1 mg 1 mg Q1HWA PRN IV AGITATION Last administered on 01/04/17 12:00 ; Admin Dose 1 MG; Start 01/01/17 at 23:00 Sodium Chloride (1/2 NS) 1,000 ml @ 50 mls/hr Q20H IV Last administered on 16:53; Admin Dose 50 MLS/HR; Start 01/02/17 at 09:30 IV Flush 10 ml 10 ml PRN PRN IV IV PROTOCOL; Start 01/03/17 at 16:30 Doxycycline Hyclate 100 mg/ Sodium Chloride 250 ml @ 250 mls/hr Q12 IVPB Last administered on 01/04/17 08:29; Admin Dose 250 MLS/HR; Start 01/03/17 at 21:00 Magnesium Sulfate (Magnesium Sulfate 2 Gm/50 ml) 50 ml @ 25 mls/hr ONCE ONCE IVPB Last administered on 01/04/17 11:00; Admin Dose 25 MLS/HR; Start at 10:30; Stop 01/04/17 at 12:29 ANA RATLIFF Jan 04, 2017 12:32
[2017-01-04] MEDS: metroNIDAZOLE 500 MG/NS (PMX) 100 ML IVPB SCH ×2 (16:08→22:14)
--- NOTE | 2017-01-04 17:57 | CONS ---
Date/Time of Note Date/Time of Note DATE: 01/04/17 TIME: 17:52 Consult Date/Type/Reason Admit Date/Time Dec 23, 2016 at 15:37 Initial Consult Date 12/24/16 Type of Consultation: Pulm Ordering Provider: BEN COURTNEY MD Subjective No events on [facility]. Objective Vital Signs Date Time Temp Pulse Resp B/P Pulse Ox O2 Delivery O2 Flow Rate FiO2 01/04/17 15:07 2.0 01/04/17 14:00 105 19 125/60 97 Nasal Cannula 01/04/17 12:00 97.6 01/04/17 01:22 28 Intake and Output 01/03/17 01/03/17 01/04/17 15:00 23:00 07:00 Intake Total 565.7 ml 400 ml 1000 ml Output Total 580 ml 870 ml 850 ml Balance -14.3 ml -470 ml 150 ml HEENT: Neck supple; no JVD; no LAD CVS: RRR, S1 and S2 CHEST: Coarse rhonchi b/l ABD: Soft, NT, + BS EXT: No c/c; + edema Results/Medications Result Diagram: 01/04/17 0515 01/04/17 0515 Results 24 hrs Laboratory Tests Test 01/04/17 05:15 Anion Gap 19 H Band Neutrophils % 6.0 H Basophils # 0.7 H Basophils % 2.0 Blast Cells % 9.0 H Blastocytes # 3.0 Blood Morphology Comment Blood Urea Nitrogen 15 Calcium Level 7.8 L Carbon Dioxide Level 22 Chloride Level 109 Creatinine 1.25 H Eosinophils # 0.3 Eosinophils % 1.0 Glucose Level 101 Hematocrit 28.9 #L Hemoglobin 9.6 #L Lymphocytes # 3.4 H Lymphocytes % 10.0 L Magnesium Level 1.5 L Mean Corpuscular Hemoglobin 27.4 L Mean Corpuscular Hemoglobin Concent 33.1 Mean Corpuscular Volume 82.7 Mean Platelet Volume 11.1 H Metamyelocytes # 0.3 Metamyelocytes % 1.0 H Monocytes # 20.1 H Monocytes % 60.0 H Myelocytes # 0.7 Myelocytes % 2.0 H Neutrophils # 1.7 Neutrophils % 5.0 L Nucleated Red Blood Cells # Nucleated Red Blood Cells % Phosphorus Level 3.1 Platelet Count 17 *L Platelet Estimate PLT APPEAR DECREASED Potassium Level 3.7 Promyelocytes # 1.3 Promyelocytes % 4.0 H Red Blood Count 3.49 #L Red Cell Distribution Width 19.0 H Sodium Level 146 H White Blood Count 33.5 #H Medications Current Medications Ondansetron HCl (Zofran Inj) 4 mg Q6H PRN IV NAUSEA AND/OR VOMITING; Start 12/23 at 16:30 Nitroglycerin (Nitroglycerin (Sl Tab) 0.4 Mg) 1 tab Q5M PRN SL CHEST PAIN; Start 12/23/16 at 16:30 Acetaminophen (Tylenol Supp) 650 mg Q4H PRN [place] PAIN LEVEL 1-3 OR FEVER Last administered on 12/25/16 01:06; Admin Dose 650 MG; Start 12/23/16 at 16:30 Bisacodyl (Dulcolax) 5 mg DAILY PRN PO CONSTIPATION; Start 12/23/16 at 16:30 Pantoprazole 40 mg 40 mg DAILY@06 IV Last administered on 01/04/17 05:54; Admin Dose 40 MG; Start 12/24/16 at 06:00 Propofol 100 ml @ 2.346 mls/ hr Q12H IV Last administered on 01/03/17 05:53; Admin Dose 18.768 MLS/HR; Start 12/23/16 at 22:00 Fentanyl (Sublimaze) 100 ml @ 2.5 mls/hr TITRATE IV Last administered on 05:54; Admin Dose 3 MLS/HR; Start 12/31/16 at 13:00 Lorazepam 1 mg 1 mg Q1HWA PRN IV AGITATION Last administered on 01/04/17 16:09 ; Admin Dose 1 MG; Start 01/01/17 at 23:00 Sodium Chloride (1/2 NS) 1,000 ml @ 50 mls/hr Q20H IV Last administered on 16:53; Admin Dose 50 MLS/HR; Start 01/02/17 at 09:30 IV Flush 10 ml 10 ml PRN PRN IV IV PROTOCOL; Start 01/03/17 at 16:30 Doxycycline Hyclate 100 mg/ Sodium Chloride 250 ml @ 250 mls/hr Q12 IVPB Last administered on 01/04/17 08:29; Admin Dose 250 MLS/HR; Start 2/17/17 at 21:00 Metronidazole (Flagyl 500 Mg (Pmx)) 100 ml @ 100 mls/hr Q8 IVPB Last administered on 01/04/17t 16:08; Admin Dose 100 MLS/HR; Start 01/04/17 at 14:00 Assessment/Plan Additional Assessment/Plan IMP: 1. Multifocal pneumonia--flu A+ as well as multifocal pneumonia 2. Vent Dependent Resp Failure 3. MDS 4. ARF 5. Thrombocytopenia 6. Anemia RECS: 1. Vent support 2. Abx per ID 3. Transfuse for Plat < 10; unless actively bleeding 4. Follow am labs/CXR/ABG 5 TF's/Free H20 6 Prognosis grim 35 min cc time NILO NASSAR MD Jan 04, 2017 17:57
[2017-01-04] MEDS: SOD CHLORIDE 0.45% 1,000 ML IV SCH (22:14)
[2017-01-05] VITALS (28 sets, daily range): BP systolic 103–160; BP diastolic 51–86; PULSE 76–109; RESP 16–22
[2017-01-05 05:55] LABS: HEMATOCRIT 23.6 % (42.0-52.0); HEMOGLOBIN 8.1 g/dl (14.0-18.0); MEAN CORPUSCULAR HEMOGLOBIN 27.9 pg (29.0-33.0); MEAN CORPUSCULAR HGB CONC 34.1 g/dl (32.0-37.0); MEAN CORPUSCULAR VOLUME 81.8 fl (82.0-101.0); MEAN PLATELET VOLUME 10.9 fl (7.4-10.4); RED BLOOD COUNT 2.89 10^6/ul (4.70-6.10); RED CELL DISTRIBUTION WIDTH 19.6 % (11.5-14.5); UNCORRECTED WBC 46.8 10^3/ul (4.8-10.8); WHITE BLOOD COUNT 46.8 10^3/ul (4.8-10.8)
[2017-01-05 05:56] LABS: POTASSIUM 3.4 mmol/L (3.5-5.1)
[2017-01-05 05:59] LABS: CREATININE 1.19 mg/dl (0.61-1.24)
[2017-01-05 06:00] LABS: CALCIUM 7.7 mg/dl (8.4-10.2)
[2017-01-05 06:13] LABS: INR 1.43; PROTIME 17.5 Sec (12.2-14.2); PT RATIO 1.4
[2017-01-05 06:14] LABS: PARTIAL THROMBOPLASTIN TIME 37.1 Sec (25.0-35.0)
[2017-01-05] MEDS: metroNIDAZOLE 500 MG/NS (PMX) 100 ML IVPB SCH ×3 (06:21→21:51)
[2017-01-05] MEDS: PANTOPRAZOLE 40 MG INJ IV SCH (06:21)
[2017-01-05 07:05] LABS: CONDITION 1; LH ANALYZER COMMENTS 1; PLATELET COUNT 17 10^3/UL (140-440); SUSPECT 1
--- NOTE | 2017-01-05 07:41 | RADRPT ---
PROCEDURE: XR Chest. CLINICAL INDICATION: Pneumonia TECHNIQUE: Portable single view of the chest COMPARISON: 01/03 FINDINGS: Pulmonary vascular congestion and interstitial edema has improved compared with prior. Left lower l obe alveolar infiltrate appears perhaps slightly increased, however. Right upper lobe lung nodule i s again seen and there appear to be multiple right lung apex nodules present as well. Right PICC li ne is again seen in place. No pleural effusion is seen. Aortic calcification. IMPRESSION: Probable improving congestive heart failure. Alveolar infiltrate or edema left lower lobe appears s lightly increased. Otherwise stable exam. RPTAT: [facility]BE Erica Nowak Physician Date Time Electronically viewed and signed by Erica Nowak Physician on 01/05/2017 07:40 LE/
--- NOTE | 2017-01-05 08:01 | PN ---
Date/Time of Note Date/Time of Note DATE: 01/05/17 TIME: 07:59 Assessment/Plan VTE Prophylaxis VTE Prophylaxis Intervention: other (thrombocytopenia) Lines/Catheters IV Catheter Type (from Nrsg): PICC Line Central line still needed: Yes Urinary Cath still in place: Yes Reason Cath still needed: terminal illness/intractable pain Assessment/Plan Assessment/Plan Hgb 8.1. Transfuse if <8, which will likely be tomorrow. Plt 17; no transfusion recommended. No clinical improvement. Subjective 24 Hr Interval Summary Free Text/Dictation No clinical bleeding Exam/Review of Systems Vital Signs Vitals Vital Signs Date Time Temp Pulse Resp B/P Pulse Ox O2 Delivery O2 Flow Rate FiO2 01/05/17 05:00 97 19 123/60 97 Nasal Cannula 01/05/17 04:00 97.9 01/05/17 02:08 2.0 28 Intake and Output 01/04/17 01/04/17 01/05/17 15:00 23:00 07:00 Intake Total 500 ml 485 ml 500 ml Output Total 810 ml 640 ml 480 ml Balance -310 ml -155 ml 20 ml Results Result Diagram: 01/05/17 0450 01/05/17 0450 Results 24 hrs Laboratory Tests Test 01/05/17 04:50 Activated Partial Thromboplast Time 37.1 H Anion Gap 18 H Basophils # Pending Basophils % Pending Blood Morphology Comment Blood Urea Nitrogen 22 H Calcium Level 7.7 L Carbon Dioxide Level 24 Chloride Level 109 Creatinine 1.19 Eosinophils # Pending Eosinophils % Pending Glucose Level 111 Hematocrit 23.6 L Hemoglobin 8.1 L INR International Normalized Ratio 1.43 Lymphocytes # Pending Lymphocytes % Pending Magnesium Level 1.5 L Mean Corpuscular Hemoglobin 27.9 L Mean Corpuscular Hemoglobin Concent 34.1 Mean Corpuscular Volume 81.8 L Mean Platelet Volume 10.9 H Monocytes # Pending Monocytes % Pending Neutrophils # Pending Neutrophils % Pending Nucleated Red Blood Cells # Pending Nucleated Red Blood Cells % Pending Platelet Count 17 *L Potassium Level 3.4 L Prothrombin Time 17.5 H Prothrombin Time Ratio 1.4 Red Blood Count 2.89 L Red Cell Distribution Width 19.6 H Sodium Level 148 H White Blood Count 46.8 #H Medications Medications Current Medications Ondansetron HCl (Zofran Inj) 4 mg Q6H PRN IV NAUSEA AND/OR VOMITING; Start 12/23 at 16:30 Nitroglycerin (Nitroglycerin (Sl Tab) 0.4 Mg) 1 tab Q5M PRN SL CHEST PAIN; Start 12/23/16 at 16:30 Acetaminophen (Tylenol Supp) 650 mg Q4H PRN [place] PAIN LEVEL 1-3 OR FEVER Last administered on 12/25/16 01:06; Admin Dose 650 MG; Start 12/23/16 at 16:30 Bisacodyl (Dulcolax) 5 mg DAILY PRN PO CONSTIPATION; Start 12/23/16 at 16:30 Pantoprazole 40 mg 40 mg DAILY@06 IV Last administered on 01/05/17 06:21; Admin Dose 40 MG; Start 12/24/16 at 06:00 Propofol 100 ml @ 2.346 mls/ hr Q12H IV Last administered on 01/03/17 05:53; Admin Dose 18.768 MLS/HR; Start 12/23/16 at 22:00 Fentanyl (Sublimaze) 100 ml @ 2.5 mls/hr TITRATE IV Last administered on 05:54; Admin Dose 3 MLS/HR; Start 12/31/16 at 13:00 Lorazepam 1 mg 1 mg Q1HWA PRN IV AGITATION Last administered on 01/04/17 16:09 ; Admin Dose 1 MG; Start 01/01/17 at 23:00 Sodium Chloride (1/2 NS) 1,000 ml @ 50 mls/hr Q20H IV Last administered on 22:14; Admin Dose 50 MLS/HR; Start 01/02/17 at 09:30 IV Flush 10 ml 10 ml PRN PRN IV IV PROTOCOL; Start 01/03/17 at 16:30 Doxycycline Hyclate 100 mg/ Sodium Chloride 250 ml @ 250 mls/hr Q12 IVPB Last administered on 01/04/17 20:49; Admin Dose 250 MLS/HR; Start 01/03/17 at 21:00 Metronidazole (Flagyl 500 Mg (Pmx)) 100 ml @ 100 mls/hr Q8 IVPB Last administered on 01/05/17 06:21; Admin Dose 100 MLS/HR; Start 01/04/17 at 14:00 GONZALO MCDONALD MD Jan 05, 2017 08:01
[2017-01-05] MEDS: DOXYCYCLINE 100 MG in SOD CHLORIDE 0.9% 250 ML IVPB SCH ×2 (08:22→20:39)
[2017-01-05] MEDS: LORAZEPAM 2 MG INJ IV PRN ×5 (08:25→23:02)
[2017-01-05] MEDS: PROPOFOL 100 ML IV SCH (10:00)
--- NOTE | 2017-01-05 11:20 | CONS ---
Date/Time of Note Date/Time of Note DATE: 01/05/17 TIME: 11:17 Assessment/Plan Assessment/Plan Chief Complaint/Hosp Course IMPRESSION: 1. Respiratory failure-improved s/p extubation 2. Cardiomyopathy with decreased left ventricular ejection fraction, last being approximately 45% to 50% by echo 11/2016. 3. Hypotension, borderline. 4. Influenza positive. 5. History of chronic myelogenous leukemia. 6. Renal failure-slowly improving. 7. Thrombocytopenia, severe. 8. Anemia. 9. Leukocytosis. 10.CHF-systolic and diastolic acute on chronic Recc: -Tele -serial ecg's -Continue abx's and f/u cx data -Follow volume status closely -continue Doxycycline -Follow BP closely -Follow for bleeding complications/need for platelet transfusion -Trend cardiac enzymes and start BB when able to take PO's Problems: Consultation Date/Type/Reason Admit Date/Time Dec 23, 2016 at 15:37 Initial Consult Date 12/24/16 Type of Consultation: Cardiology Reason for Consultation positive troponin Referring Provider: BEN COURTNEY MD Exam/Review of Systems Vital Signs Vitals Vital Signs Date Time Temp Pulse Resp B/P Pulse Ox O2 Delivery O2 Flow Rate FiO2 01/05/17 10:30 81 17 137/67 99 01/05/17 10:00 Nasal Cannula 01/05/17 08:00 2.0 01/05/17 08:00 97.6 01/05/17 02:08 28 Intake and Output 01/04/17 01/04/17 01/05/17 15:00 23:00 07:00 Intake Total 500 ml 485 ml 500 ml Output Total 810 ml 640 ml 480 ml Balance -310 ml -155 ml 20 ml Exam Review of Systems: CONSTITUTIONAL: No fevers, chills. PULMONARY: s/p extubation CARDIOVASCULAR: No chest pain/palpitations GASTROINTESTINAL: No nausea/vomiting. GENITOURINARY: No hematuria/dysuria. MUSCULOSKELETAL: No myagias/arthalgias. PSYCHIATRIC: The patient denies depression. NEUROLOGIC: encephalopathic Constitutional: alert Psych: confusion ENMT: mucosa pink and moist Neck: jvd (9 cm water), supple Respiratory: diminished breath sounds (at b ases/B) Cardiovascular: regular rate and rhythm Gastrointestinal: non-tender, soft Musculoskeletal: muscle tone (normal) Extremities: edema (upper extremity) Neurological: confused Results Result Diagram: 01/05/17 0450 01/05/17 0450 Results 24 hrs Laboratory Tests Test 01/05/17 04:50 Activated Partial Thromboplast Time 37.1 H Anion Gap 18 H Basophils # Pending Basophils % Pending Blood Morphology Comment Blood Urea Nitrogen 22 H Calcium Level 7.7 L Carbon Dioxide Level 24 Chloride Level 109 Creatinine 1.19 Eosinophils # Pending Eosinophils % Pending Glucose Level 111 Hematocrit 23.6 L Hemoglobin 8.1 L INR International Normalized Ratio 1.43 Lymphocytes # Pending Lymphocytes % Pending Magnesium Level 1.5 L Mean Corpuscular Hemoglobin 27.9 L Mean Corpuscular Hemoglobin Concent 34.1 Mean Corpuscular Volume 81.8 L Mean Platelet Volume 10.9 H Monocytes # Pending Monocytes % Pending Neutrophils # Pending Neutrophils % Pending Nucleated Red Blood Cells # Pending Nucleated Red Blood Cells % Pending Platelet Count 17 *L Potassium Level 3.4 L Prothrombin Time 17.5 H Prothrombin Time Ratio 1.4 Red Blood Count 2.89 L Red Cell Distribution Width 19.6 H Sodium Level 148 H White Blood Count 46.8 #H Medications Medications Current Medications Ondansetron HCl (Zofran Inj) 4 mg Q6H PRN IV NAUSEA AND/OR VOMITING; Start 12/23 at 16:30 Nitroglycerin (Nitroglycerin (Sl Tab) 0.4 Mg) 1 tab Q5M PRN SL CHEST PAIN; Start 12/23/16 at 16:30 Acetaminophen (Tylenol Supp) 650 mg Q4H PRN [place] PAIN LEVEL 1-3 OR FEVER Last administered on 12/25/16 01:06; Admin Dose 650 MG; Start 12/23/16 at 16:30 Bisacodyl (Dulcolax) 5 mg DAILY PRN PO CONSTIPATION; Start 12/23/16 at 16:30 Pantoprazole 40 mg 40 mg DAILY@06 IV Last administered on 01/05/17 06:21; Admin Dose 40 MG; Start 12/24/16 at 06:00 Propofol 100 ml @ 2.346 mls/ hr Q12H IV Last administered on 01/03/17 05:53; Admin Dose 18.768 MLS/HR; Start 12/23/16 at 22:00 Fentanyl (Sublimaze) 100 ml @ 2.5 mls/hr TITRATE IV Last administered on 05:54; Admin Dose 3 MLS/HR; Start 12/31/16 at 13:00 Lorazepam 1 mg 1 mg Q1HWA PRN IV AGITATION Last administered on 01/05/17 08:25 ; Admin Dose 1 MG; Start 01/01/17 at 23:00 Sodium Chloride (1/2 NS) 1,000 ml @ 50 mls/hr Q20H IV Last administered on 22:14; Admin Dose 50 MLS/HR; Start 01/02/17 at 09:30 IV Flush 10 ml 10 ml PRN PRN IV IV PROTOCOL; Start 01/03/17 at 16:30 Doxycycline Hyclate 100 mg/ Sodium Chloride 250 ml @ 250 mls/hr Q12 IVPB Last administered on 01/05/17 08:22; Admin Dose 250 MLS/HR; Start 01/03/17 at 21:00 Metronidazole (Flagyl 500 Mg (Pmx)) 100 ml @ 100 mls/hr Q8 IVPB Last administered on 01/05/17 06:21; Admin Dose 100 MLS/HR; Start 01/04/17 at 14:00 MILENA VELA Jan 05, 2017 11:20
[2017-01-05] MEDS ORDERED: POTASSIUM CHLORIDE 250 ML IVPB ONE (11:30)
[2017-01-05 12:00] LABS: EOSINOPHILS # 0.5 10^3/ul (0.0-0.5); LYMPHOCYTES # 11.7 10^3/ul (0.8-2.9); MONOCYTE # 20.6 10^3/ul (0.3-0.9); MYELOCYTES # 2.3; NEUTROPHIL # 1.4 10^3/ul (1.6-7.5)
[2017-01-05 12:07] LABS: PLATELET ESTIMATE PLT APPEAR DECREASED
[2017-01-05] MEDS ORDERED: MAGNESIUM SULFATE 3 GM in SOD CHLORIDE 0.9% 100 ML IVPB ONE (12:30)
--- NOTE | 2017-01-05 13:54 | PN ---
Date/Time of Note Date/Time of Note DATE: 01/05/17 TIME: 13:31 Assessment/Plan VTE Prophylaxis VTE Prophylaxis Intervention: contraindicated VTE Contraindication Reason: thrombocytopenia Lines/Catheters IV Catheter Type (from Nrs): PICC Line Central line still needed: Yes Urinary Cath still in place: Yes Reason Cath still needed: urinary retention Assessment/Plan Chief Complaint/Hosp Course Assessment/Plan: 71 yo male with a past medical history of CML on chemotherapy, MDS, GERD, COPD, anemia of chronic disease, who presents with acute shortness of breath sec to + influenza. 1. Sepsis - 2/2 to Influenza Pneumonia with superimposed healthcare-associated pneumonia as well as possible aspiration - pt completed tamiflu, repeat flu A test is neg. WBC more elevated the last 2 days (13 > 33 -> 46). No fevers. Possibly sec to MDS/leukemia (high blasts on CBC). - continue IV Doxy and IV Flagyl for now. - f/u Heme/Onc and ID rec's. 2. Acute hypoxemic respiratory failure - extubated now - continue abx (see # 1) - f/u pulm rec's 3. Severe thrombocytopenia - sec to CML + PNA. 17 today again. HIT antibodies was negative. 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 4. Acute on chronic renal failure - 2/2 to sepsis - resolving now. - continue IVF - renally adjust medications, avoid nephrotoxins, appreciate renal consult 5. Anemia - of chronic disease -H/H presently low nL range - f/u hem/onc rec's, ferrilicit 6. CML/MDS - per Heme/Onc patient has been treated with azacytadine and lenalidomide with little effect. - continue with hem/onc recs, monitore CBC (WBC + blasts higher than nL now) 7. CHF with diastolic heart failure - consult cardiology, type II NSTEMI ? - demand ischemia, recent ECHO EF 45%, diastolic dysfunction 8. COPD - see #1 9. GERD - continue with IV protonix 10. Smoking abuse - advised patient on cessation 11. Hypernatremia - had been resolving, but slightly more elevated today (145 - > 148) - suspect sec to dehydration vs volume depletion vs other - continue with free water and D5W as per nephro 12. GI ppx - protonix 13. DVT ppx - contraindicated for anticoagulation - monitor acute changes dispo - f/u recs, monitor changes, prognosis is guarded/poor - f/u palliative care consult - per their rec's, trying to get in touch with the about setting up another family meeting (third one); if no improvement, code status needs to be reassessed Critical care time spent today = 50 min. Problems: Exam/Review of Systems Vital Signs Vitals Vital Signs Date Time Temp Pulse Resp B/P Pulse Ox O2 Delivery O2 Flow Rate FiO2 01/05/17 12:00 94 01/05/17 12:00 97.6 17 147/64 95 Nasal Cannula 01/05/17 08:00 2.0 01/05/17 02:08 28 Intake and Output 01/04/17 01/04/17 01/05/17 15:00 23:00 07:00 Intake Total 500 ml 485 ml 500 ml Output Total 810 ml 640 ml 480 ml Balance -310 ml -155 ml 20 ml Exam Gen [place]: lethargic, on [place] HEENT: NC/AT, PERRLA, ETT NECK: supple, no thyromegaly THORAX: symmetrical, no obvious deformities CV: S1S2, no M/G/R Lungs: coarse breath sounds throughout all lung masters, diminished at the bases , with end expiratory wheezing Abd: soft, NT/ND, +BS, no rebound, no guarding, neg HSM, scaphoid EXT: 1+ edema, no ecchymosis, no clubbing, FROM, muscle wasting noted Neuro: intubated/sedated Psych: cannot assess Skin: scattered petechiae Results Result Diagram: 01/05/1744901/05/17449 Results 24 hrs Laboratory Tests Test 01/05/17 04:50 Activated Partial Thromboplast Time 37.1 H Anion Gap 18 H Band Neutrophils % 5.0 Basophils # Basophils % Blast Cells % 9.0 H Blastocytes # 4.2 Blood Morphology Comment Blood Urea Nitrogen 22 H Calcium Level 7.7 L Carbon Dioxide Level 24 Chloride Level 109 Creatinine 1.19 Differential Comment MANUAL DIFF Eosinophils # 0.5 Eosinophils % 1.0 Glucose Level 111 Hematocrit 23.6 L Hemoglobin 8.1 L INR International Normalized Ratio 1.43 Lymphocytes # 11.7 H Lymphocytes % 25.0 Magnesium Level 1.5 L Mean Corpuscular Hemoglobin 27.9 L Mean Corpuscular Hemoglobin Concent 34.1 Mean Corpuscular Volume 81.8 L Mean Platelet Volume 10.9 H Metamyelocytes # 1.9 Metamyelocytes % 4.0 H Monocytes # 20.6 H Monocytes % 44.0 H Myelocytes # 2.3 Myelocytes % 5.0 H Neutrophils # 1.4 L Neutrophils % 3.0 L Nucleated Red Blood Cells # Nucleated Red Blood Cells % Platelet Count 17 *L Platelet Estimate PLT APPEAR DECREASED Potassium Level 3.4 L Promyelocytes # 1.4 Promyelocytes % 3.0 H Prothrombin Time 17.5 H Prothrombin Time Ratio 1.4 Reactive Lymphocytes % 1.0 Red Blood Count 2.89 L Red Cell Distribution Width 19.6 H Sodium Level 148 H White Blood Count 46.8 #H Medications Medications Current Medications Ondansetron HCl (Zofran Inj) 4 mg Q6H PRN IV NAUSEA AND/OR VOMITING; Start 12/23 at 16:30 Nitroglycerin (Nitroglycerin (Sl Tab) 0.4 Mg) 1 tab Q5M PRN SL CHEST PAIN; Start 12/23/16 at 16:30 Acetaminophen (Tylenol Supp) 650 mg Q4H PRN [place] PAIN LEVEL 1-3 OR FEVER Last administered on 12/25/16 01:06; Admin Dose 650 MG; Start 12/23/16 at 16:30 Bisacodyl (Dulcolax) 5 mg DAILY PRN PO CONSTIPATION; Start 12/23/16 at 16:30 Pantoprazole 40 mg 40 mg DAILY@06 IV Last administered on 01/05/17 06:21; Admin Dose 40 MG; Start 12/24/16 at 06:00 Propofol 100 ml @ 2.346 mls/ hr Q12H IV Last administered on 01/03/17 05:53; Admin Dose 18.768 MLS/HR; Start 12/23/16 at 22:00 Fentanyl (Sublimaze) 100 ml @ 2.5 mls/hr TITRATE IV Last administered on 05:54; Admin Dose 3 MLS/HR; Start 12/31/16 at 13:00 Lorazepam 1 mg 1 mg Q1HWA PRN IV AGITATION Last administered on 01/05/17 13:20 ; Admin Dose 1 MG; Start 01/01/17 at 23:00 Sodium Chloride (1/2 NS) 1,000 ml @ 50 mls/hr Q20H IV Last administered on 22:14; Admin Dose 50 MLS/HR; Start 01/02/17 at 09:30 IV Flush 10 ml 10 ml PRN PRN IV IV PROTOCOL; Start 01/03/17 at 16:30 Doxycycline Hyclate 100 mg/ Sodium Chloride 250 ml @ 250 mls/hr Q12 IVPB Last administered on 01/05/17 08:22; Admin Dose 250 MLS/HR; Start 01/03/17 at 21:00 Metronidazole 100 ml @ 100 mls/hr Q8 IVPB Last administered on 01/05/17 06:21 ; Admin Dose 100 MLS/HR; Start 01/04/17 at 14:00 Magnesium Sulfate 3 gm/Sodium Chloride 106 ml @ 35.333 mls/ hr ONCE ONCE IVPB ; Start 01/05/17 at 12:30; Stop 01/05/17 at 15:29 Potassium Chloride (KCl 40 MEQ/250 ML NS) 250 ml @ 62.5 mls/hr ONCE ONCE IVPB Last administered on 01/05/17 12:06; Admin Dose 62.5 MLS/HR; Start 01/05/17 at 11:30; Stop 01/05/17 at 15:29 ANA RATLIFF Jan 05, 2017 13:41
[2017-01-05] MEDS: DEXTROSE 5% 1,000 ML IV SCH (14:51)
[2017-01-05] MEDS: morphine 2 MG INJ IV PRN ×2 (14:53→21:51)
[2017-01-05 15:43] LABS: ADD UMIC YES; URINE BILIRUBIN (Dip) 1+ (NEGATIVE); URINE BLOOD (Dip) 3+ (NEGATIVE); URINE GLUCOSE (Dip) NEGATIVE (NEGATIVE); URINE KETONES (Dip) 15 (NEGATIVE); URINE LEUKOCYTE ESTERASE (Dip) TRACE (NEGATIVE); URINE NITRITE (Dip) NEGATIVE (NEGATIVE); URINE TOTAL PROTEIN (Dip) 1+ (NEGATIVE); URINE UROBILINOGEN (Dip) 0.2 E.U./dL (0.1-1.0)
[2017-01-05 16:10] LABS: URINE COLOR DARK YELLOW (YELLOW)
[2017-01-05 16:12] LABS: BACTERIA,URINE FEW; ICTOTEST NEGATIVE (NEGATIVE); URIC ACID CRYSTALS,URINE MODERATE; URINE RBCS >200 /HPF (0)
[2017-01-05 16:13] LABS: SQUAMOUS EPITHELIAL CELL,UR FEW
--- NOTE | 2017-01-05 16:51 | CONS ---
Date/Time of Note Date/Time of Note DATE: 01/05/17 TIME: 16:50 Consult Date/Type/Reason Admit Date/Time Dec 23, 2016 at 15:37 Initial Consult Date 12/24/16 Type of Consultation: Pulm Ordering Provider: BEN COURTNEY MD Subjective Doing poorly. [facility] Objective Vital Signs Date Time Temp Pulse Resp B/P Pulse Ox O2 Delivery O2 Flow Rate FiO2 01/05/17 16:24 98 2.0 01/05/17 16:00 97.4 20 153/56 Nasal Cannula 01/05/17 15:30 96 01/05/17 02:08 28 Intake and Output 01/04/17 01/04/17 01/05/17 15:00 23:00 07:00 Intake Total 500 ml 485 ml 500 ml Output Total 810 ml 640 ml 480 ml Balance -310 ml -155 ml 20 ml HEENT: Neck supple; no JVD; no LAD CVS: RRR, S1 and S2 CHEST: Coarse rhonchi b/l ABD: Soft, NT, + BS EXT: No c/c; + edema Results/Medications Result Diagram: 01/05/17 0450 01/05/17 0450 Results 24 hrs Laboratory Tests Test 01/05/17 04:50 01/05/17 15:00 Activated Partial Thromboplast Time 37.1 H Anion Gap 18 H Band Neutrophils % 5.0 Basophils # Basophils % Blast Cells % 9.0 H Blastocytes # 4.2 Blood Morphology Comment Blood Urea Nitrogen 22 H Calcium Level 7.7 L Carbon Dioxide Level 24 Chloride Level 109 Creatinine 1.19 Differential Comment MANUAL DIFF Eosinophils # 0.5 Eosinophils % 1.0 Glucose Level 111 Hematocrit 23.6 L Hemoglobin 8.1 L INR International Normalized Ratio 1.43 Lymphocytes # 11.7 H Lymphocytes % 25.0 Magnesium Level 1.5 L Mean Corpuscular Hemoglobin 27.9 L Mean Corpuscular Hemoglobin Concent 34.1 Mean Corpuscular Volume 81.8 L Mean Platelet Volume 10.9 H Metamyelocytes # 1.9 Metamyelocytes % 4.0 H Monocytes # 20.6 H Monocytes % 44.0 H Myelocytes # 2.3 Myelocytes % 5.0 H Neutrophils # 1.4 L Neutrophils % 3.0 L Nucleated Red Blood Cells # Nucleated Red Blood Cells % Platelet Count 17 *L Platelet Estimate PLT APPEAR DECREASED Potassium Level 3.4 L Promyelocytes # 1.4 Promyelocytes % 3.0 H Prothrombin Time 17.5 H Prothrombin Time Ratio 1.4 Reactive Lymphocytes % 1.0 Red Blood Count 2.89 L Red Cell Distribution Width 19.6 H Sodium Level 148 H White Blood Count 46.8 #H Urine Amorphous Urates MODERATE Urine Bacteria FEW Urine Bilirubin 1+ H Urine Clarity CLOUDY H Urine Color DARK YELLOW Urine Glucose NEGATIVE Urine Hemoglobin 3+ H Urine Ictotest NEGATIVE Urine Ketones 15 Urine Leukocyte Esterase TRACE H Urine Microscopic RBC >200 Urine Microscopic WBC 2-5 Urine Nitrite NEGATIVE Urine Specific [place] 1.025 Urine Squamous Epithelial Cells FEW Urine Total Protein 1+ H Urine Uric Acid Crystals MODERATE Urine Urobilinogen 0.2 E.U./dL Urine pH 6.0 Medications Current Medications Ondansetron HCl (Zofran Inj) 4 mg Q6H PRN IV NAUSEA AND/OR VOMITING; Start 12/23 at 16:30 Nitroglycerin (Nitroglycerin (Sl Tab) 0.4 Mg) 1 tab Q5M PRN SL CHEST PAIN; Start 12/23/16 at 16:30 Acetaminophen (Tylenol Supp) 650 mg Q4H PRN [place] PAIN LEVEL 1-3 OR FEVER Last administered on 12/25/16 01:06; Admin Dose 650 MG; Start 12/23/16 at 16:30 Bisacodyl (Dulcolax) 5 mg DAILY PRN PO CONSTIPATION; Start 12/23/16 at 16:30 Pantoprazole (Protonix Iv) 40 mg DAILY@06 IV Last administered on 01/05/17 06: 21; Admin Dose 40 MG; Start 12/24/16 at 06:00 Lorazepam (Ativan) 1 mg Q1HWA PRN IV AGITATION Last administered on 01/05/17 13:20; Admin Dose 1 MG; Start 01/01/17 at 23:00 IV Flush 10 ml 10 ml PRN PRN IV IV PROTOCOL; Start 01/03/17 at 16:30 Doxycycline Hyclate 100 mg/ Sodium Chloride 250 ml @ 250 mls/hr Q12 IVPB Last administered on 01/05/17 08:22; Admin Dose 250 MLS/HR; Start 01/03/17 at 21:00 Metronidazole 100 ml @ 100 mls/hr Q8 IVPB Last administered on 01/05/17 14:51 ; Admin Dose 100 MLS/HR; Start 01/04/17 at 14:00 Dextrose (D5W) 1,000 ml @ 60 mls/hr [id number] IV Last administered on 01/05/17 14:51; Admin Dose 60 MLS/HR; Start 01/05/17 at 14:00 Morphine Sulfate (morphine) 1 mg Q4H PRN IV PAIN LEVEL 7-10 Last administered on 01/05/17 14:53; Admin Dose 1 MG; Start 01/05/17 at 14:00 Assessment/Plan Additional Assessment/Plan IMP: 1. Multifocal pneumonia--flu A+ as well as multifocal pneumonia 2. Vent Dependent Resp Failure 3. MDS 4. ARF 5. Thrombocytopenia 6. Anemia RECS: 1. Vent support 2. Abx per ID 3. Transfuse for Plat < 10; unless actively bleeding 4. Follow am labs/CXR/ABG 5 TF's/Free H20 6 Palliative Care 35 min cc time NILO NASSAR MD Jan 05, 2017 16:51
--- NOTE | 2017-01-05 17:54 | RADRPT ---
PROCEDURE: Left upper extremity venous ultrasound CLINICAL INDICATION: Left arm pain and swelling. Deep venous thrombosis. TECHNIQUE: Haile scale, color doppler, spectral doppler ultrasound imaging of the venous system of the left upper extremity. Augmentation maneuvers were utilized. COMPARISON: No prior studies are available for comparison. FINDINGS: LEFT: Internal jugular vein: Patent. Subclavian vein: Patent. Axillary vein: Patent. Brachial vein: Patent. Basilic vein: Patent. Cephalic vein: Patent. Radial vein: Patent. Ulnar vein: Patent. IMPRESSION: No evidence of a deep vein thrombosis involving the left upper extremity. RPTAT: AADD .Иван Rueda MD, MD Date Time Electronically viewed and signed by .Иван Rueda MD, MD on 01/05/2017 17:53 .B/
--- NOTE | 2017-01-05 18:11 | CONS ---
Date/Time of Note Date/Time of Note DATE: 01/05/17 TIME: 18:08 Assessment/Plan Assessment/Plan Additional Assessment/Plan 1. Acute kidney injury, likely secondary to acute tubular necrosis in the setting of sepsis.-improved 2. Acute hypoxemic respiratory failure, multifactorial, secondary to sepsis and secondary to pulmonary congestion s/p extubation 3. Acute pulmonary edema with influenza pneumonia.- now improved 4. History of congestive heart failure with diastolic heart failure. 5. History of chronic obstructive pulmonary disease. 6. History of gastroesophageal reflux disease. 7. History of smoking. 8. 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 9. Hypomagnesemia PLAN: making good urine, Creatinine improved to normal Mag and K replacement already done IV abx as per ID will follow up this critical care note took greater than 45 min to complete Consultation Date/Type/Reason Admit Date/Time Dec 23, 2016 at 15:37 Initial Consult Date 12/23/16 Type of Consultation: NEPHROLOGY Reason for Consultation Acute Kidney Injury Referring Provider: BEN COURTNEY MD 24 HR Interval Summary Free Text/Dictation Magnesium and K low, Bp labile, good urine output Exam/Review of Systems Vital Signs Vitals Vital Signs Date Time Temp Pulse Resp B/P Pulse Ox O2 Delivery O2 Flow Rate FiO2 01/05/17 16:24 98 2.0 01/05/17 16:00 102 01/05/17 16:00 97.4 20 153/56 Nasal Cannula 01/05/17 02:08 28 Intake and Output 01/04/17 01/04/17 01/05/17 15:00 23:00 07:00 Intake Total 500 ml 485 ml 500 ml Output Total 810 ml 640 ml 480 ml Balance -310 ml -155 ml 20 ml Exam Gen [place]: lethargic, on [place] CV: S1S2, no M/G/R Lungs: coarse breath sounds throughout all lung masters, diminished at the bases , with end expiratory wheezing Abd: soft, NT/ND, +BS, EXT: 1+ edema, no ecchymosis, no clubbing, FROM, muscle wasting noted + silveira catheter Results Result Diagram: 01/05/17 0450 01/05/17 0450 Results 24 hrs Laboratory Tests Test 01/05/17 04:50 01/05/17 15:00 Activated Partial Thromboplast Time 37.1 H Anion Gap 18 H Band Neutrophils % 5.0 Basophils # Basophils % Blast Cells % 9.0 H Blastocytes # 4.2 Blood Morphology Comment Blood Urea Nitrogen 22 H Calcium Level 7.7 L Carbon Dioxide Level 24 Chloride Level 109 Creatinine 1.19 Differential Comment MANUAL DIFF Eosinophils # 0.5 Eosinophils % 1.0 Glucose Level 111 Hematocrit 23.6 L Hemoglobin 8.1 L INR International Normalized Ratio 1.43 Lymphocytes # 11.7 H Lymphocytes % 25.0 Magnesium Level 1.5 L Mean Corpuscular Hemoglobin 27.9 L Mean Corpuscular Hemoglobin Concent 34.1 Mean Corpuscular Volume 81.8 L Mean Platelet Volume 10.9 H Metamyelocytes # 1.9 Metamyelocytes % 4.0 H Monocytes # 20.6 H Monocytes % 44.0 H Myelocytes # 2.3 Myelocytes % 5.0 H Neutrophils # 1.4 L Neutrophils % 3.0 L Nucleated Red Blood Cells # Nucleated Red Blood Cells % Platelet Count 17 *L Platelet Estimate PLT APPEAR DECREASED Potassium Level 3.4 L Promyelocytes # 1.4 Promyelocytes % 3.0 H Prothrombin Time 17.5 H Prothrombin Time Ratio 1.4 Reactive Lymphocytes % 1.0 Red Blood Count 2.89 L Red Cell Distribution Width 19.6 H Sodium Level 148 H White Blood Count 46.8 #H Urine Amorphous Urates MODERATE Urine Bacteria FEW Urine Bilirubin 1+ H Urine Clarity CLOUDY H Urine Color DARK YELLOW Urine Glucose NEGATIVE Urine Hemoglobin 3+ H Urine Ictotest NEGATIVE Urine Ketones 15 Urine Leukocyte Esterase TRACE H Urine Microscopic RBC >200 Urine Microscopic WBC 2-5 Urine Nitrite NEGATIVE Urine Specific [place] 1.025 Urine Squamous Epithelial Cells FEW Urine Total Protein 1+ H Urine Uric Acid Crystals MODERATE Urine Urobilinogen 0.2 E.U./dL Urine pH 6.0 Medications Medications Current Medications Ondansetron HCl (Zofran Inj) 4 mg Q6H PRN IV NAUSEA AND/OR VOMITING; Start 12/23 at 16:30 Nitroglycerin (Nitroglycerin (Sl Tab) 0.4 Mg) 1 tab Q5M PRN SL CHEST PAIN; Start 12/23/16 at 16:30 Acetaminophen (Tylenol Supp) 650 mg Q4H PRN [place] PAIN LEVEL 1-3 OR FEVER Last administered on 12/25/16t 01:06; Admin Dose 650 MG; Start 12/23/16 at 16:30 Bisacodyl (Dulcolax) 5 mg DAILY PRN PO CONSTIPATION; Start 12/23/16 at 16:30 Pantoprazole (Protonix Iv) 40 mg DAILY@06 IV Last administered on 01/05/17 06: 21; Admin Dose 40 MG; Start 12/24/16 at 06:00 Lorazepam (Ativan) 1 mg Q1HWA PRN IV AGITATION Last administered on 01/05/17 13:20; Admin Dose 1 MG; Start 01/01/17 at 23:00 IV Flush 10 ml 10 ml PRN PRN IV IV PROTOCOL; Start 01/03/17 at 16:30 Doxycycline Hyclate 100 mg/ Sodium Chloride 250 ml @ 250 mls/hr Q12 IVPB Last administered on 01/05/17 08:22; Admin Dose 250 MLS/HR; Start 01/03/17 at 21:00 Metronidazole 100 ml @ 100 mls/hr Q8 IVPB Last administered on 01/05/17 14:51 ; Admin Dose 100 MLS/HR; Start 01/04/17 at 14:00 Dextrose (D5W) 1,000 ml @ 60 mls/hr [id number] IV Last administered on 01/05/17 14:51; Admin Dose 60 MLS/HR; Start 01/05/17 at 14:00 Morphine Sulfate (morphine) 1 mg Q4H PRN IV PAIN LEVEL 7-10 Last administered on 01/05/17 14:53; Admin Dose 1 MG; Start 01/05/17 at 14:00 GILL PEREIRA MD Jan 05, 2017 18:11
--- NOTE | 2017-01-05 18:20 | PN ---
DATE: 01/05/2017 INFECTIOUS DISEASE PROGRESS NOTE SUBJECTIVE: No acute events overnight. The patient is lethargic, arousable. He gets restless at t imes. Pulled NG tube. He is lying comfortably in bed, afebrile with a temperature of 97.4, pulse 10 2, respirations 20, blood pressure 153/56, saturation 98% on 2 liters. WBC 46.8, H and H 8.1 and 23.6, platelet 17, BUN 22, creatinine 1.19. MICROBIOLOGY: Repeat blood cultures from January 04 preliminary negative. ANTIMICROBIALS: The patient is on doxycycline and Flagyl IV. INDWELLINGS: The patient has peripheral IV, PICC line, Leyva catheter. PHYSICAL EXAMINATION: GENERAL: Chronically ill-appearing, elderly man who is in no distress. HEENT: Head atraumatic, normocephalic. Sclerae anicteric. Buccal mucosa dry. NECK: Supple, trachea midline. CHEST: Rise symmetrical. Breath sounds diminished to bases. HEART: S1, S2. ABDOMEN: Soft. Bowel tones present. EXTREMITIES: Without cyanosis. Bilateral edema. ASSESSMENT: 1. Severe sepsis. 2. Multifocal pneumonia with influenza A virus status post Tamiflu and repeat influenza swab negati ve, status post 2 weeks IV antibiotics, still on doxycycline for sputum culture growing staph. 3. Diarrhea, on empiric Flagyl, pending stool for C. difficile. 4. 5. Acute renal failure. 6. Acute encephalopathy. 7. Resolving acute kidney injury. PLAN: The patient is doing poorly, although stable post-extubation but at high risk for aspiration. He is on appropriate antimicrobials pending repeat cultures. He is being seen by multiple consult ants. Consider palliative care evaluation. Dictated By: DARLENE CARTAGENA [employer] ARCHITECT for CORRINA GOMEZ/RADHA Conf#: [id number] DID#: [id number]
[2017-01-06] VITALS (26 sets, daily range): BP systolic 91–148; BP diastolic 43–88; PULSE 95–122; RESP 17–24
--- NOTE | 2017-01-06 00:04 | RADRPT ---
PROCEDURE: XR Chest. CLINICAL INDICATION: to confirm NG tube placement TECHNIQUE: 2 frontal chest x-rays COMPARISON: 01/05/2017 at 05:48 a.m. FINDINGS: Nasogastric tube is in the stomach with the side port just below the diaphragm and should be advance d approximately 3 cm. Calcification in the aortic arch. The heart is not enlarged. ECG leads proje cted over the chest.There is minimal prominence of the lung interstitium likely minimal chronic davis ges. Calcific appearing nodular densities again projected over right upper lung which do not appear to be significantly changed dating back to 04/08/2016. Right PICC line tip near atriocaval junction. IMPRESSION: Nasogastric tube is in the stomach with the side port just below the diaphragm and should be advance d approximately 3 cm. Please see above. RPTAT: HJES .Pierre Martínez MD, MD Date Time Electronically viewed and signed by .Pierre Martínez MD, MD on 01/06/2017 00:04 .S/
[2017-01-06] MEDS: LORAZEPAM 2 MG INJ IV PRN ×9 (01:54→21:38)
[2017-01-06] MEDS: morphine 2 MG INJ IV PRN ×3 (02:35→15:47)
[2017-01-06] MEDS: metroNIDAZOLE 500 MG/NS (PMX) 100 ML IVPB SCH ×3 (05:19→22:07)
[2017-01-06] MEDS: PANTOPRAZOLE 40 MG INJ IV SCH (05:19)
[2017-01-06 05:53] LABS: MAGNESIUM 1.8 mg/dl (1.7-2.5); PHOSPHORUS 2.9 mg/dl (2.5-4.9); POTASSIUM 3.2 mmol/L (3.5-5.1)
[2017-01-06 05:56] LABS: CREATININE 1.08 mg/dl (0.61-1.24)
[2017-01-06 05:57] LABS: CALCIUM 7.6 mg/dl (8.4-10.2)
[2017-01-06] MEDS ORDERED: MAGNESIUM SULFATE 2 GM/50 ML 50 ML IVPB STA (07:04)
--- NOTE | 2017-01-06 07:13 | PN ---
DATE: 01/04/2017 SUBJECTIVE: The patient was extubated yesterday. He is obtunded, lying comfortably in bed. He is afebrile. VITAL SIGNS: Temperature 97.6, pulse 109, respirations 16, blood pressure 135/75, saturation 98% na rafal cannula. LABORATORY DATA: WBC today is 33.5, H and H 9.6 and 28.9, platelets 17. BUN 15, creatinine 1.25. INDWELLINGS: The patient has PICC line, Leyva catheter. ANTIMICROBIALS: 1. Doxycycline. 2. Status post vancomycin. 3. Status post imipenem. 4. Status post Diflucan. PHYSICAL EXAMINATION: GENERAL: This is a chronically ill-appearing, elderly man who is lying comfortably in bed. HEENT: Head atraumatic, normocephalic. Sclerae anicteric. Buccal mucosa dry. NECK: Supple, trachea midline. CHEST: Rise symmetrical. Breath sounds diminished to bases. HEART: S1, S2. ABDOMEN: Soft. Bowel sounds present. EXTREMITIES: Without cyanosis. ASSESSMENT: 1. Leukocytosis, questionable reactive, questionable infectious, patient is on doxycycline, status post vancomycin, Merrem. 3. Healthcare-associated pneumonia with aspiration event, extubated. Sputum culture grew coagulase -negative staph species, covered with doxycycline. 4. Myelodysplastic syndrome. 5. Acute kidney injury. 6. Cardiomyopathy. 7. Status post influenza A, treated with Tamiflu. Repeat swab negative. PLAN: The patient is clinically and hemodynamically stable status post extubated yesterday. White blood cell count sharply increased today, which could be secondary to lab error as patient is afebri le and clinically stable. He is on doxycycline to cover staph that he is growing in his sputum. Al l cultures have been negative since admission. We are going to panculture him today again, continue him on doxycycline and order a chest x-ray in a.m. We will put him on empiric Flagyl for now. Dictated By: DARLENE CARTAGENA [employer] PROFESSOR for CORRINA GOMEZ/NTS Conf#: [id number] DID#: [id number]
[2017-01-06] MEDS ORDERED: POTASSIUM CHLORIDE 30 MEQ in SOD CHLORIDE 0.9% 150 ML IVPB SCH (08:30)
[2017-01-06] MEDS: DOXYCYCLINE 100 MG in SOD CHLORIDE 0.9% 250 ML IVPB SCH ×2 (08:51→21:00)
[2017-01-06] MEDS: DEXTROSE 5% 1,000 ML IV SCH ×2 (09:00→23:20)
--- NOTE | 2017-01-06 09:11 | CONS ---
Date/Time of Note Date/Time of Note DATE: 01/06/17 TIME: 09:07 Assessment/Plan Assessment/Plan Additional Assessment/Plan Assessment and recommendations; 1. Patient admitted with severe bilateral pneumonia causing respiratory failure with marked radiological improvement successfully extubated 3 days ago and maintaining stable vital signs. 2. History of CML with severe pancytopenia. 3. Severe thrombocytopenia patient on exhibiting nasal bleed. 4. Patient exhibiting poor mental status. Continue current treatment. Patient likely would need to have platelet transfusion. Continue current antibiotics. Prognosis remains poor. Consultation Date/Type/Reason Admit Date/Time Dec 23, 2016 at 15:37 Initial Consult Date 12/24/16 Type of Consultation: Pulmonary/critical care Referring Provider: BEN COURTNEY MD 24 HR Interval Summary Free Text/Dictation Patient condition remains tenuous at best. Patient was successfully extubated about 3 days ago and has remained off ventilator. Vital signs have remained stable. However, patient is now exhibiting occasional episodes of agitation requiring restraints as well as mild sedation on a as needed basis. General examination; elderly male, awake but does not follow any commands. Exam/Review of Systems Vital Signs Vitals Vital Signs Date Time Temp Pulse Resp B/P Pulse Ox O2 Delivery O2 Flow Rate FiO2 01/06/17 08:09 Nasal Cannula 2.0 01/06/17 06:06 96.9 95 20 123/53 96 01/06/17 05:01 28 Intake and Output 01/05/17 01/05/17 01/06/17 15:00 23:00 07:00 Intake Total 400 ml 651 ml 375 ml Output Total 525 ml 425 ml 595 ml Balance -125 ml 226 ml -220 ml Exam HEENT examination; supple neck, no JVD. No lymphadenopathy. Pupils are midsize and reactive to light. No thyromegaly. No neck masses. Nasal bleed is noted. Chest examination; clear to auscultation bilaterally. S1-S2 audible, no murmurs. Regular rhythm. Abdomen examination; soft, nondistended. No organomegaly. Extremity examination; no peripheral edema. ANCILLARY SPECIALIST examination; patient is awake but does not follow any commands. Results Result Diagram: 01/05/17 0450 01/06/17 0450 Results 24 hrs Laboratory Tests Test 01/05/17 15:00 01/06/17 04:50 Urine Amorphous Urates MODERATE Urine Bacteria FEW Urine Bilirubin 1+ H Urine Clarity CLOUDY H Urine Color DARK YELLOW Urine Glucose NEGATIVE Urine Hemoglobin 3+ H Urine Ictotest NEGATIVE Urine Ketones 15 Urine Leukocyte Esterase TRACE H Urine Microscopic RBC >200 Urine Microscopic WBC 2-5 Urine Nitrite NEGATIVE Urine Specific [employer] 1.025 Urine Squamous Epithelial Cells FEW Urine Total Protein 1+ H Urine Uric Acid Crystals MODERATE Urine Urobilinogen 0.2 E.U./dL Urine pH 6.0 Anion Gap 14 Blood Urea Nitrogen 27 H Calcium Level 7.6 L Carbon Dioxide Level 26 Chloride Level 111 H Creatinine 1.08 Glucose Level 128 Magnesium Level 1.8 Phosphorus Level 2.9 Potassium Level 3.2 L Sodium Level 148 H Medications Medications Current Medications Ondansetron HCl (Zofran Inj) 4 mg Q6H PRN IV NAUSEA AND/OR VOMITING; Start 12/23 at 16:30 Nitroglycerin (Nitroglycerin (Sl Tab) 0.4 Mg) 1 tab Q5M PRN SL CHEST PAIN; Start 12/23/16 at 16:30 Acetaminophen (Tylenol Supp) 650 mg Q4H PRN [place] PAIN LEVEL 1-3 OR FEVER Last administered on 12/25/16 01:06; Admin Dose 650 MG; Start 12/23/16 at 16:30 Bisacodyl (Dulcolax) 5 mg DAILY PRN PO CONSTIPATION; Start 12/23/16 at 16:30 Pantoprazole (Protonix Iv) 40 mg DAILY@06 IV Last administered on 01/06/17 05: 19; Admin Dose 40 MG; Start 12/24/16 at 06:00 Lorazepam (Ativan) 1 mg Q1HWA PRN IV AGITATION Last administered on 01/06/17 08:22; Admin Dose 1 MG; Start 01/01/17 at 23:00 IV Flush 10 ml 10 ml PRN PRN IV IV PROTOCOL; Start 01/03/17 at 16:30 Doxycycline Hyclate 100 mg/ Sodium Chloride 250 ml @ 250 mls/hr Q12 IVPB Last administered on 01/06/17 08:51; Admin Dose 250 MLS/HR; Start 01/03/17 at 21:00 Metronidazole 100 ml @ 100 mls/hr Q8 IVPB Last administered on 01/06/17 05:19 ; Admin Dose 100 MLS/HR; Start 01/04/17 at 14:00 Dextrose (D5W) 1,000 ml @ 60 mls/hr [id number] IV Last administered on 01/05/17 14:51; Admin Dose 60 MLS/HR; Start 01/05/17 at 14:00 Morphine Sulfate 1 mg 1 mg Q4H PRN IV PAIN LEVEL 7-10 Last administered on 01/06 02:35; Admin Dose 1 MG; Start 01/05/17 at 14:00 Potassium Chloride/Sodium Chloride (KCl/NS) 165 ml @ 55 mls/hr ONCE IVPB ; Start 01/06/17 at 08:30; Stop 01/06/17 at 11:29 MYESHA OLIVER Jan 06, 2017 09:11
--- NOTE | 2017-01-06 10:57 | CONS ---
Date/Time of Note Date/Time of Note DATE: 01/06/17 TIME: 10:50 Assessment/Plan Assessment/Plan Chief Complaint/Hosp Course IMPRESSION: 1. Respiratory failure-improved s/p extubation 2. Cardiomyopathy with decreased left ventricular ejection fraction, last being approximately 45% to 50% by echo 11/2016. 3. Hypotension, borderline. 4. Influenza positive. 5. History of chronic myelogenous leukemia. 6. Renal failure-slowly improving. 7. Thrombocytopenia, severe. 8. Anemia. 9. Leukocytosis. 10.CHF-systolic and diastolic acute on chronic Recc: -Tele -serial ecg's -Continue abx's and f/u cx data -Follow volume status closely -continue Doxycycline -Follow BP closely -Follow for bleeding complications/need for platelet transfusion -Trend cardiac enzymes and start BB when able to take PO's Problems: Consultation Date/Type/Reason Admit Date/Time Dec 23, 2016 at 15:37 Initial Consult Date 12/24/16 Type of Consultation: Cardiology Reason for Consultation cardiomyopathy Referring Provider: BEN COURTNEY MD Exam/Review of Systems Vital Signs Vitals Vital Signs Date Time Temp Pulse Resp B/P Pulse Ox O2 Delivery O2 Flow Rate FiO2 01/06/17 09:00 112 19 129/54 97 01/06/17 08:09 Nasal Cannula 2.0 01/06/17 06:06 96.9 01/06/17 05:01 28 Intake and Output 01/05/17 01/05/17 01/06/17 15:00 23:00 07:00 Intake Total 400 ml 651 ml 375 ml Output Total 525 ml 425 ml 595 ml Balance -125 ml 226 ml -220 ml Exam Review of Systems: CONSTITUTIONAL: No fevers, chills. PULMONARY: No sob CARDIOVASCULAR: No chest pain/palpitations GASTROINTESTINAL: No nausea/vomiting. GENITOURINARY: No hematuria/dysuria. MUSCULOSKELETAL: No myagias/arthalgias. PSYCHIATRIC: The patient denies depression. NEUROLOGIC: No weakness Constitutional: other (lethargic) Psych: no complaints Head: normocephalic ENMT: mucosa pink and moist Neck: jvd (9 cm water), supple Respiratory: diminished breath sounds Cardiovascular: regular rate and rhythm Gastrointestinal: non-tender, soft Musculoskeletal: muscle tone Extremities: edema (none) Neurological: other (No focal deficits) Results Result Diagram: 01/05/17 0450 01/06/17 0450 Results 24 hrs Laboratory Tests Test 01/05/17 15:00 01/06/17 04:50 Urine Amorphous Urates MODERATE Urine Bacteria FEW Urine Bilirubin 1+ H Urine Clarity CLOUDY H Urine Color DARK YELLOW Urine Glucose NEGATIVE Urine Hemoglobin 3+ H Urine Ictotest NEGATIVE Urine Ketones 15 Urine Leukocyte Esterase TRACE H Urine Microscopic RBC >200 Urine Microscopic WBC 2-5 Urine Nitrite NEGATIVE Urine Specific [employer] 1.025 Urine Squamous Epithelial Cells FEW Urine Total Protein 1+ H Urine Uric Acid Crystals MODERATE Urine Urobilinogen 0.2 E.U./dL Urine pH 6.0 Anion Gap 14 Blood Urea Nitrogen 27 H Calcium Level 7.6 L Carbon Dioxide Level 26 Chloride Level 111 H Creatinine 1.08 Glucose Level 128 Magnesium Level 1.8 Phosphorus Level 2.9 Potassium Level 3.2 L Sodium Level 148 H Medications Medications Current Medications Ondansetron HCl (Zofran Inj) 4 mg Q6H PRN IV NAUSEA AND/OR VOMITING; Start 12/23 at 16:30 Nitroglycerin (Nitroglycerin (Sl Tab) 0.4 Mg) 1 tab Q5M PRN SL CHEST PAIN; Start 12/23/16 at 16:30 Acetaminophen (Tylenol Supp) 650 mg Q4H PRN [place] PAIN LEVEL 1-3 OR FEVER Last administered on 12/25/16 01:06; Admin Dose 650 MG; Start 12/23/16 at 16:30 Bisacodyl (Dulcolax) 5 mg DAILY PRN PO CONSTIPATION; Start 12/23/16 at 16:30 Pantoprazole (Protonix Iv) 40 mg DAILY@06 IV Last administered on 01/06/17 05: 19; Admin Dose 40 MG; Start 12/24/16 at 06:00 IV Flush 10 ml 10 ml PRN PRN IV IV PROTOCOL; Start 01/03/17 at 16:30 Doxycycline Hyclate 100 mg/ Sodium Chloride 250 ml @ 250 mls/hr Q12 IVPB Last administered on 01/06/17 08:51; Admin Dose 250 MLS/HR; Start 01/03/17 at 21:00 Metronidazole 100 ml @ 100 mls/hr Q8 IVPB Last administered on 01/06/17 05:19 ; Admin Dose 100 MLS/HR; Start 2/18/17 at 14:00 Dextrose (D5W) 1,000 ml @ 60 mls/hr [id number] IV Last administered on 01/05/17 14:51; Admin Dose 60 MLS/HR; Start 01/05/17 at 14:00 Morphine Sulfate 1 mg 1 mg Q4H PRN IV PAIN LEVEL 7-10 Last administered on 01/06 02:35; Admin Dose 1 MG; Start 01/05/17 at 14:00 Potassium Chloride/Sodium Chloride (KCl/NS) 165 ml @ 55 mls/hr ONCE IVPB Last administered on 01/06/17 09:25; Admin Dose 55 MLS/HR; Start 01/06/17 at 08:30; Stop 01/06/17 at 11:29 Lorazepam (Ativan) 2 mg Q1HWA PRN IV AGITATION; Start 01/06/17 at 09:30 MILENA VELA Jan 06, 2017 10:57
[2017-01-06 11:11] LABS: RED BLOOD COUNT 2.37 10^6/ul (4.70-6.10)
--- NOTE | 2017-01-06 11:11 | PN ---
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 PROBLEMS: - Sepsis - 2/2 to Influenza / PNA : resolved - Influenza A: s/p treatment - HCAP : improving - Acute Hypoxemic Resp failure / PNA and CHF: Improved / now extubated and stable on NC - CML / MDS Leucocytosis worsening - Severe Anemia 2/2 MDS Has had 5 units PRBCs so far - Severe Platelet refractory thrombocytopenia Has also had 5 units platelets so far - Acute Renal failure Resolved / Cr WNL x 2 days - CHF-systolic and diastolic acute on chronic Improved - NSTEMI type 2 med mgt - COPD : stable - Hypernatremia - Encephalopathy: ? Chronic Baseline unknown / requiring restraints - Dysphagia: NGT - Cardiomyopathy with decreased left ventricular ejection fraction, last being approximately 45% to 50% by echo 11/2016. PLAN: Continue ICU care for now as patient is still tachycardic / confused and very prone to bleeds Review problems with family and discuss goals of care F/u hematologic recs / Transfuse 2 units of PRBCs Will hold off on platelet transfusion as patient is platelet refractory per hematology Speech therapy evaluation Start Seroquel for confusion Continue supportive care Prognosis: very Poor PROPHYLAXIS: IV PPI / SCDs CRITICAL CARE TIME: >35 mins Subjective 24 Hr Interval Summary Free Text/Dictation Patient seen and examined. Subjective hx not possible: pt non-verbal Constitutional: disoriented, requiring O2 Exam/Review of Systems Vital Signs Vitals Vital Signs Date Time Temp Pulse Resp B/P Pulse Ox O2 Delivery O2 Flow Rate FiO2 01/06/17 09:00 112 19 129/54 97 01/06/17 08:09 Nasal Cannula 2.0 01/06/17 06:06 96.9 01/06/17 05:01 28 Intake and Output 01/05/17 01/05/17 01/06/17 15:00 23:00 07:00 Intake Total 400 ml 651 ml 375 ml Output Total 525 ml 425 ml 595 ml Balance -125 ml 226 ml -220 ml Exam Constitutional: alert, frail, non-verbal, other (cofused) Psych: confusion Head: normocephalic Eyes: PERRL Respiratory: diminished breath sounds Cardiovascular: No regular rate and rhythm (tachy) Gastrointestinal: bowel sounds, non-tender, soft Extremities: No edema Neurological: confused, No nl mental status Skin: ecchymosis (extensive LUE) Results Result Diagram: 01/05/17 0450 01/06/17 0450 Results 24 hrs Laboratory Tests Test 01/05/17 15:00 01/06/17 04:50 Urine Amorphous Urates MODERATE Urine Bacteria FEW Urine Bilirubin 1+ H Urine Clarity CLOUDY H Urine Color DARK YELLOW Urine Glucose NEGATIVE Urine Hemoglobin 3+ H Urine Ictotest NEGATIVE Urine Ketones 15 Urine Leukocyte Esterase TRACE H Urine Microscopic RBC >200 Urine Microscopic WBC 2-5 Urine Nitrite NEGATIVE Urine Specific [place] 1.025 Urine Squamous Epithelial Cells FEW Urine Total Protein 1+ H Urine Uric Acid Crystals MODERATE Urine Urobilinogen 0.2 E.U./dL Urine pH 6.0 Anion Gap 14 Blood Urea Nitrogen 27 H Calcium Level 7.6 L Carbon Dioxide Level 26 Chloride Level 111 H Creatinine 1.08 Glucose Level 128 Magnesium Level 1.8 Phosphorus Level 2.9 Potassium Level 3.2 L Sodium Level 148 H Medications Medications Current Medications Ondansetron HCl (Zofran Inj) 4 mg Q6H PRN IV NAUSEA AND/OR VOMITING; Start 12/23 at 16:30 Nitroglycerin (Nitroglycerin (Sl Tab) 0.4 Mg) 1 tab Q5M PRN SL CHEST PAIN; Start 12/23/16 at 16:30 Acetaminophen (Tylenol Supp) 650 mg Q4H PRN [place] PAIN LEVEL 1-3 OR FEVER Last administered on 12/25/16 01:06; Admin Dose 650 MG; Start 12/23/16 at 16:30 Bisacodyl (Dulcolax) 5 mg DAILY PRN PO CONSTIPATION; Start 12/23/16 at 16:30 Pantoprazole (Protonix Iv) 40 mg DAILY@06 IV Last administered on 01/06/17 05: 19; Admin Dose 40 MG; Start 12/24/16 at 06:00 IV Flush 10 ml 10 ml PRN PRN IV IV PROTOCOL; Start 01/03/17 at 16:30 Doxycycline Hyclate 100 mg/ Sodium Chloride 250 ml @ 250 mls/hr Q12 IVPB Last administered on 01/06/17 08:51; Admin Dose 250 MLS/HR; Start 01/03/17 at 21:00 Metronidazole 100 ml @ 100 mls/hr Q8 IVPB Last administered on 01/06/17 05:19 ; Admin Dose 100 MLS/HR; Start 01/04/17 at 14:00 Dextrose (D5W) 1,000 ml @ 60 mls/hr [id number] IV Last administered on 01/05/17 14:51; Admin Dose 60 MLS/HR; Start 01/05/17 at 14:00 Morphine Sulfate 1 mg 1 mg Q4H PRN IV PAIN LEVEL 7-10 Last administered on 01/06 02:35; Admin Dose 1 MG; Start 01/05/17 at 14:00 Potassium Chloride/Sodium Chloride (KCl/NS) 165 ml @ 55 mls/hr ONCE IVPB Last administered on 01/06/17 09:25; Admin Dose 55 MLS/HR; Start 01/06/17 at 08:30; Stop 01/06/17 at 11:29 Lorazepam (Ativan) 2 mg Q1HWA PRN IV AGITATION; Start 01/06/17 at 09:30 Procedures Procedures PROCEDURE: XR Chest. CLINICAL INDICATION: Pneumonia TECHNIQUE: Portable single view of the chest COMPARISON: 01/03 FINDINGS: Pulmonary vascular congestion and interstitial edema has improved compared with prior. Left lower lobe alveolar infiltrate appears perhaps slightly increased, however. Right upper lobe lung nodule is again seen and there appear to be multiple right lung apex nodules present as well. Right PICC line is again seen in place. No pleural effusion is seen. Aortic calcification. IMPRESSION: Probable improving congestive heart failure. Alveolar infiltrate or edema left lower lobe appears slightly increased. Otherwise stable exam. RPTAT: [facility]BE Erica Nowak Physician Date Time Electronically viewed and signed by Erica Nowak Physician on 01/05/2017 07 :40 LE/ CC: DARLENE CARTAGENA ART EDUCATION PROFESSOR PROCEDURE: Left upper extremity venous ultrasound CLINICAL INDICATION: Left arm pain and swelling. Deep venous thrombosis. TECHNIQUE: Haile scale, color doppler, spectral doppler ultrasound imaging of the venous system of the left upper extremity. Augmentation maneuvers were utilized. COMPARISON: No prior studies are available for comparison. FINDINGS: LEFT: Internal jugular vein: Patent. Subclavian vein: Patent. Axillary vein: Patent. Brachial vein: Patent. Basilic vein: Patent. Cephalic vein: Patent. Radial vein: Patent. Ulnar vein: Patent. IMPRESSION: No evidence of a deep vein thrombosis involving the left upper extremity. RPTAT: AADD .Иван Rueda MD, MD Date Time Electronically viewed and signed by .Иван Rueda MD, on 01/05/2017 17:53 .B/ CC: MILENA VELA BOLATITO M. Jan 06, 2017 11:11
[2017-01-06 11:12] LABS: HEMATOCRIT 19.8 % (42.0-52.0); MEAN CORPUSCULAR HGB CONC 32.3 g/dl (32.0-37.0); MEAN CORPUSCULAR VOLUME 83.5 fl (82.0-101.0)
[2017-01-06 11:16] LABS: HEMOGLOBIN 6.4 g/dl (14.0-18.0); PLATELET COUNT 15 10^3/UL (140-440)
[2017-01-06 11:17] LABS: WHITE BLOOD COUNT 47.4 10^3/ul (4.8-10.8)
[2017-01-06 11:20] LABS: EOSINOPHILS # 0.5 10^3/ul (0.0-0.5); LYMPHOCYTES # 11.7 10^3/ul (0.8-2.9); MONOCYTE # 20.6 10^3/ul (0.3-0.9); NEUTROPHIL # 1.4 10^3/ul (1.6-7.5)
--- NOTE | 2017-01-06 16:34 | PN ---
DATE: 01/06/2017 SUBJECTIVE: No events overnight. The patient is lying comfortably in bed. He is on and off restle ss and trying to pull on tubes and lines. VITAL SIGNS: Temperature 96.9, pulse 108, respirations 19, blood pressure 141/51, saturation 96% on nasal cannula. LABORATORY: WBC 47.4, H and H 6.4 and 19.8, platelets 15, BUN 27, creatinine 1.08. MICROBIOLOGY: Stool for C. diff came back negative. ANTIMICROBIALS: The patient is on: 1. Doxycycline 2. Flagyl. INDWELLINGS: PICC line in his right upper extremity, Leyva catheter, NG tube. PHYSICAL EXAMINATION: GENERAL: Chronically ill-appearing, elderly man who is lying comfortably in bed. HEENT: Head atraumatic, normocephalic. Sclerae anicteric. Buccal mucosa dry. NECK: Supple, trachea midline. CHEST: Rise symmetrical. Breath sounds diminished. HEART: S1, S2. ABDOMEN: Soft. Bowel tones hypoactive. EXTREMITIES: With trace edema. ASSESSMENT: 1. Persistent leukocytosis, questionable leukemoid reaction, versus secondary to myelodysplasia. 2. Anemia with significant thrombocytopenia. 3. Status post septic shock. 4. Diarrhea, on empiric Flagyl. 5. Status post pneumonia with influenza A virus, completed 2 weeks IV antibiotics and Tamiflu with repeat influenza swab being negative. 6. Acute encephalopathy. 7. Dysphagia. 8. Acute kidney injury. PLAN: The patient remains unchanged, overall not doing quite well with persistent leukocytosis, blo od and urine culture repeated on 01/04/2017 had been negative. Influenza swab repeated on 7 negative. Stool for C. diff negative. We will continue him on current regimen. He is on doxycyc line for coagulase-negative staph that he grew from his endotracheal aspirate on 12/30/2016 and empi neid Flagyl. Continue anti-aspiration measures and follow recommendations of specialist. Dictated By: DARLENE CARTAGENA AMORTIZATION SCHEDULE CLERK for CORRINA GOMEZ/NTS Conf#: [id number] DID#: [id number]
[2017-01-06] MEDS ORDERED: QUETIAPINE 25 MG TAB PO SCH (21:00)
[2017-01-06] MEDS: QUETIAPINE 25 MG TAB NGT SCH (21:01)
--- NOTE | 2017-01-06 22:12 | CONS ---
Date/Time of Note Date/Time of Note DATE: 01/06/17 TIME: 22:10 Assessment/Plan Assessment/Plan Additional Assessment/Plan 1. Acute kidney injury, likely secondary to acute tubular necrosis in the setting of sepsis.-improved 2. Acute hypoxemic respiratory failure, multifactorial, secondary to sepsis and secondary to pulmonary congestion s/p extubation 3. Acute pulmonary edema with influenza pneumonia.- now improved 4. History of congestive heart failure with diastolic heart failure. 5. History of chronic obstructive pulmonary disease. 6. History of gastroesophageal reflux disease. 7. History of smoking. 8. 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 9. Hypomagnesemia PLAN: making good urine, Creatinine improved to normal K replacement Paln for PRBC IV abx as per ID will follow up this critical care note took greater than 45 min to complete Consultation Date/Type/Reason Admit Date/Time Dec 23, 2016 at 15:37 Initial Consult Date 12/23/16 Type of Consultation: NEPHROLOGY Reason for Consultation Acute kidney injury Referring Provider: BEN COURTNEY MD 24 HR Interval Summary Free Text/Dictation pt remains confused, lethargic Hb 6.4, K low Exam/Review of Systems Vital Signs Vitals Vital Signs Date Time Temp Pulse Resp B/P Pulse Ox O2 Delivery O2 Flow Rate FiO2 01/06/17 20:49 2.0 01/06/17 20:00 98.1 120 19 123/88 98 Nasal Cannula 01/06/17 18:12 28 Intake and Output 01/05/17 01/05/17 01/06/17 15:00 23:00 07:00 Intake Total 400 ml 651 ml 375 ml Output Total 525 ml 425 ml 595 ml Balance -125 ml 226 ml -220 ml Exam Gen [place]: lethargic, on [place]. CV: S1S2, no M/G/R Lungs: coarse breath sounds throughout all lung masters, diminished at the bases , with end expiratory wheezing Abd: soft, NT/ND, +BS, EXT: 1+ edema, no ecchymosis, no clubbing, FROM, muscle wasting noted + silveira catheter Results Result Diagram: 01/06/17 0450 01/06/17 0450 Results 24 hrs Laboratory Tests Test 01/06/17 04:50 Anion Gap 14 Basophils # 0.0 Basophils % 0.0 Blood Urea Nitrogen 27 H Calcium Level 7.6 L Carbon Dioxide Level 26 Chloride Level 111 H Creatinine 1.08 Eosinophils # 0.5 Eosinophils % 1.0 Glucose Level 128 Hematocrit 19.8 L Hemoglobin 6.4 #*L Lymphocytes # 11.7 H Lymphocytes % 25.0 Magnesium Level 1.8 Mean Corpuscular Hemoglobin 27.0 L Mean Corpuscular Hemoglobin Concent 32.3 Mean Corpuscular Volume 83.5 Mean Platelet Volume Monocytes # 20.6 H Monocytes % 44.0 H Neutrophils # 1.4 L Neutrophils % 3.0 L Nucleated Red Blood Cells # 0.0 Nucleated Red Blood Cells % 0.0 Phosphorus Level 2.9 Platelet Count 15 *L Potassium Level 3.2 L Red Blood Count 2.37 L Red Cell Distribution Width 19.0 H Sodium Level 148 H White Blood Count 47.4 H Medications Medications Current Medications Ondansetron HCl (Zofran Inj) 4 mg Q6H PRN IV NAUSEA AND/OR VOMITING; Start 12/23 at 16:30 Nitroglycerin (Nitroglycerin (Sl Tab) 0.4 Mg) 1 tab Q5M PRN SL CHEST PAIN; Start 12/23/16 at 16:30 Acetaminophen (Tylenol Supp) 650 mg Q4H PRN [place] PAIN LEVEL 1-3 OR FEVER Last administered on 12/25/16 01:06; Admin Dose 650 MG; Start 12/23/16 at 16:30 Bisacodyl (Dulcolax) 5 mg DAILY PRN PO CONSTIPATION; Start 12/23/16 at 16:30 Pantoprazole (Protonix Iv) 40 mg DAILY@06 IV Last administered on 01/06/17 05: 19; Admin Dose 40 MG; Start 12/24/16 at 06:00 IV Flush 10 ml 10 ml PRN PRN IV IV PROTOCOL; Start 01/03/17 at 16:30 Doxycycline Hyclate 100 mg/ Sodium Chloride 250 ml @ 250 mls/hr Q12 IVPB Last administered on 01/06/17 21:00; Admin Dose 250 MLS/HR; Start 01/03/17 at 21:00 Metronidazole 100 ml @ 100 mls/hr Q8 IVPB Last administered on 01/06/17 22:07 ; Admin Dose 100 MLS/HR; Start 01/04/17 at 14:00 Dextrose (D5W) 1,000 ml @ 60 mls/hr [id number] IV Last administered on 01/06/17 09:00; Admin Dose 60 MLS/HR; Start 01/05/17 at 14:00 Morphine Sulfate (morphine) 1 mg Q4H PRN IV PAIN LEVEL 7-10 Last administered on 01/06/17 15:47; Admin Dose 1 MG; Start 01/05/17 at 14:00 Lorazepam (Ativan) 2 mg Q1HWA PRN IV AGITATION Last administered on 01/06/17 21:38; Admin Dose 2 MG; Start 01/06/17 at 09:30 Quetiapine Fumarate (Seroquel) 25 mg QHS NGT Last administered on 01/06/17 21: 01; Admin Dose 25 MG; Start 01/06/17 at 21:00 GILL PEREIRA MD Jan 06, 2017 22:12
--- NOTE | 2017-01-06 22:15 | PN ---
DATE: 01/06/2017 SUBJECTIVE: Mr. Townsend remains off ventilator. There are no new complaints noted. OBJECTIVE: VITAL SIGNS: Temperature 96.6 axillary, pulse 102 and regular, respirations 22 per minute, blood pr essure is 120/59. SKIN: Pale with scattered ecchymoses. No rashes. HEENT: Normocephalic. No evidence of trauma. There is dried blood around the nares and mouth. Th ere is an NG tube in place and nasal oxygen in place. Oral mucosa is dry and there is dried blood. NECK: Supple. No jugular venous distention or thyroid enlargement. CHEST: Decreased breath sounds bilaterally. No rhonchi or rubs. There are basilar rales noted. HEART: Sinus tachycardia. No S3, S4, or murmurs. NODES: No palpable lymphadenopathy. ABDOMEN: Flat and soft. There are no obvious masses or ascites. The spleen tip, however, is palpa ble approximately 3 cm below the left costal margin in the anterior axillary line. EXTREMITIES: No clubbing or cyanosis. NEUROLOGIC: No focal neurologic abnormalities. The patient does not respond to questioning. LABORATORY DATA: White blood cell count 47,400 with 44% monocytes. Hemoglobin 6.4, hematocrit 19.8 , and platelet count 15,000. Sodium 148, potassium 3.2, creatinine 1.08, BUN 27. ASSESSMENT: 1. Respiratory failure due to interstitial pneumonitis, resolved. 2. Myelodysplastic syndrome, chronic myelomonocytic leukemia. PLAN: The patient's hemoglobin has dropped to 6.4. The patient is to be transfused with 2 units of packed red blood cells. Platelet count is 15,000. Will not transfuse with platelets at this time unless there is clinical bleeding noted. Unfortunately, there is no effective therapy available for this patient at present time. If any the rapy is to be considered, the only option would be that of induction chemotherapy as administered fo r acute leukemia. I feel this would be associated with significant morbidity and be unlikely to be of benefit. Dictated By: OPAL MOSES MD SR/NTS Conf#: [id number] DID#: [id number] CC: BEN COURTNEY MD;*EndCC*
[2017-01-07] VITALS (24 sets, daily range): BP systolic 96–144; BP diastolic 41–69; PULSE 90–118; RESP 16–25
[2017-01-07] MEDS: LORAZEPAM 2 MG INJ IV PRN ×7 (01:56→17:04)
[2017-01-07] MEDS: morphine 2 MG INJ IV PRN ×3 (03:59→14:21)
[2017-01-07 05:04] LABS: HEMATOCRIT 20.8 % (42.0-52.0); HEMOGLOBIN 7.1 g/dl (14.0-18.0); MEAN CORPUSCULAR HEMOGLOBIN 28.6 pg (29.0-33.0); MEAN CORPUSCULAR HGB CONC 34.2 g/dl (32.0-37.0); MEAN CORPUSCULAR VOLUME 83.6 fl (82.0-101.0); MEAN PLATELET VOLUME 10.8 fl (7.4-10.4); RED BLOOD COUNT 2.48 10^6/ul (4.70-6.10); RED CELL DISTRIBUTION WIDTH 17.3 % (11.5-14.5); UNCORRECTED WBC 29.3 10^3/ul (4.8-10.8); WHITE BLOOD COUNT 29.3 10^3/ul (4.8-10.8)
[2017-01-07 05:11] LABS: ALBUMIN 2.4 g/dl (3.3-4.9); POTASSIUM 3.3 mmol/L (3.5-5.1)
[2017-01-07] MEDS: PANTOPRAZOLE 40 MG INJ IV SCH (05:12)
[2017-01-07 05:14] LABS: CREATININE 1.04 mg/dl (0.61-1.24); PHOSPHORUS 3.4 mg/dl (2.5-4.9)
[2017-01-07 05:15] LABS: CALCIUM 7.1 mg/dl (8.4-10.2); MAGNESIUM 1.6 mg/dl (1.7-2.5)
[2017-01-07] MEDS: metroNIDAZOLE 500 MG/NS (PMX) 100 ML IVPB SCH ×3 (05:35→22:37)
[2017-01-07 06:00] LABS: CONDITION 1; LH ANALYZER COMMENTS 1; SUSPECT 1
[2017-01-07 06:02] LABS: PLATELET COUNT 13 10^3/UL (140-440)
[2017-01-07] MEDS ORDERED: POTASSIUM CHLORIDE 250 ML IVPB ONE (06:30)
[2017-01-07] MEDS ORDERED: POTASSIUM CHLORIDE 250 ML IVPB SCH (06:30)
[2017-01-07] MEDS ORDERED: MAGNESIUM SULFATE 3 GM in SOD CHLORIDE 0.9% 100 ML IVPB ONE (06:30)
[2017-01-07] MEDS: DEXTROSE 5% 1,000 ML IV SCH ×2 (07:06→19:00)
--- NOTE | 2017-01-07 08:17 | PN ---
Date/Time of Note Date/Time of Note DATE: 01/07/17 TIME: 08:12 Assessment/Plan VTE Prophylaxis VTE Prophylaxis Intervention: other (low plt) Lines/Catheters IV Catheter Type (from [facility]): PICC Line Central line still needed: Yes Urinary Cath still in place: Yes Reason Cath still needed: other (indicate) (altered mental status) Assessment/Plan Assessment/Plan Pt has no active bleeding. Thrombocytopenia remains the same with count in the teens. No platelet transfusion unless there is a surgical procedure or active bleeding. Hgb is low; RBC ordered. Unfortunately prognosis remains dismal. He is not a candidate for aggressive chemotherapy. Subjective 24 Hr Interval Summary Free Text/Dictation Pt remains confused. Ativan given and pt calmer per nurse. Exam/Review of Systems Vital Signs Vitals Vital Signs Date Time Temp Pulse Resp B/P Pulse Ox O2 Delivery O2 Flow Rate FiO2 01/07/17 08:00 98.0 99 20 115/47 93 Nasal Cannula 4.0 01/06/17 18:12 28 Intake and Output 01/06/17 01/06/17 01/07/17 15:00 23:00 07:00 Intake Total 280 ml 1245 ml 1025 ml Output Total 430 ml 410 ml 625 ml Balance -150 ml 835 ml 400 ml Exam Head: atraumatic Eyes: other (pallor) ENMT: other (gauze in nares is mainly white.) Respiratory: diminished breath sounds Cardiovascular: regular rate and rhythm Results Result Diagram: 01/07/17 0400 01/07/17 0400 Results 24 hrs Laboratory Tests Test 01/07/17 04:00 Albumin 2.4 L Anion Gap 11 Basophils # Basophils % Blood Morphology Comment Blood Urea Nitrogen 29 H Calcium Level 7.1 L Carbon Dioxide Level 26 Chloride Level 109 Creatinine 1.04 Eosinophils # Eosinophils % Glucose Level 233 #H Hematocrit 20.8 L Hemoglobin 7.1 L Lymphocytes # Lymphocytes % Magnesium Level 1.6 L Mean Corpuscular Hemoglobin 28.6 L Mean Corpuscular Hemoglobin Concent 34.2 Mean Corpuscular Volume 83.6 Mean Platelet Volume 10.8 H Monocytes # Neutrophils # Neutrophils % Nucleated Red Blood Cells # Nucleated Red Blood Cells % Phosphorus Level 3.4 Platelet Count 13 *L Potassium Level 3.3 L Red Blood Count 2.48 L Red Cell Distribution Width 17.3 H Sodium Level 143 White Blood Count 29.3 #H Medications Medications Current Medications Ondansetron HCl (Zofran Inj) 4 mg Q6H PRN IV NAUSEA AND/OR VOMITING; Start 12/23 at 16:30 Nitroglycerin (Nitroglycerin (Sl Tab) 0.4 Mg) 1 tab Q5M PRN SL CHEST PAIN; Start 12/23/16 at 16:30 Acetaminophen (Tylenol Supp) 650 mg Q4H PRN [place] PAIN LEVEL 1-3 OR FEVER Last administered on 12/25/16 01:06; Admin Dose 650 MG; Start 12/23/16 at 16:30 Bisacodyl (Dulcolax) 5 mg DAILY PRN PO CONSTIPATION; Start 12/23/16 at 16:30 Pantoprazole (Protonix Iv) 40 mg DAILY@06 IV Last administered on 01/07/17 05: 12; Admin Dose 40 MG; Start 12/24/16 at 06:00 IV Flush 10 ml 10 ml PRN PRN IV IV PROTOCOL; Start 01/03/17 at 16:30 Doxycycline Hyclate 100 mg/ Sodium Chloride 250 ml @ 250 mls/hr Q12 IVPB Last administered on 01/06/17 21:00; Admin Dose 250 MLS/HR; Start 01/03/17 at 21:00 Metronidazole 100 ml @ 100 mls/hr Q8 IVPB Last administered on 01/07/17 05:35 ; Admin Dose 100 MLS/HR; Start 01/04/17 at 14:00 Dextrose (D5W) 1,000 ml @ 60 mls/hr [id number] IV Last administered on 01/07/17 07:06; Admin Dose 60 MLS/HR; Start 01/05/17 at 14:00 Morphine Sulfate (morphine) 1 mg Q4H PRN IV PAIN LEVEL 7-10 Last administered on 01/07/17 03:59; Admin Dose 1 MG; Start 01/05/17 at 14:00 Lorazepam (Ativan) 2 mg Q1HWA PRN IV AGITATION Last administered on 01/07/17 07:49; Admin Dose 2 MG; Start 01/06/17 at 09:30 Quetiapine Fumarate 25 mg 25 mg QHS NGT Last administered on 01/06/17 21:01; Admin Dose 25 MG; Start 01/06/17 at 21:00 Magnesium Sulfate 3 gm/Sodium Chloride 106 ml @ 35.333 mls/ hr ONCE ONCE IVPB Last administered on 01/07/17 07:53; Admin Dose 35.333 MLS/HR; Start at 06:30; Stop 01/07/17 at 09:29 Potassium Chloride (KCl 40 MEQ/250 ML NS) 250 ml @ 62.5 mls/hr ONCE IVPB Last administered on 01/07/17 07:53; Admin Dose 62.5 MLS/HR; Start 01/07/17 at 06:30 ; Stop 01/07/17 at 10:29 GONZALO MCDONALD MD Jan 07, 2017 08:17
[2017-01-07 08:26] LABS: H1N1 2009 FLU A RNA NOT DETECTED
[2017-01-07] MEDS: DOXYCYCLINE 100 MG in SOD CHLORIDE 0.9% 250 ML IVPB SCH ×2 (08:54→21:08)
--- NOTE | 2017-01-07 09:18 | CONS ---
Date/Time of Note Date/Time of Note DATE: 01/07/17 TIME: 09:15 Assessment/Plan Assessment/Plan Additional Assessment/Plan Assessment recommendations; 1. Patient admitted with severe bilateral pneumonia no successfully extubated 48 hours ago with stable clinical status. 2. Poor mental status. 3. History of CML. 4. Severe pancytopenia. Status post packed RBC transfusion yesterday. 6. Ongoing nasal bleed. 7. Emaciated state. 8. Poor mental status. Continue current supportive care. Transfuse platelets. Overall prognosis remains extremely poor. Consultation Date/Type/Reason Admit Date/Time Dec 23, 2016 at 15:37 Initial Consult Date 12/24/16 Type of Consultation: Pulmonary/critical Referring Provider: BEN COURTNEY MD 24 HR Interval Summary Free Text/Dictation Patient condition is stable. Agitation is markedly reduced. Patient however is unable to communicate. General examination; elderly male, currently in no distress. Exam/Review of Systems Vital Signs Vitals Vital Signs Date Time Temp Pulse Resp B/P Pulse Ox O2 Delivery O2 Flow Rate FiO2 01/07/17 08:00 98.0 99 20 115/47 93 Nasal Cannula 4.0 01/06/17 18:12 28 Intake and Output 01/06/17 01/06/17 01/07/17 14:59 22:59 06:59 Intake Total 280 ml 1185 ml 960 ml Output Total 445 ml 410 ml 675 ml Balance -165 ml 775 ml 285 ml Exam H EENT examination; supple neck, no JVD. No lymph adenopathy. There is ongoing nasal bleed. Blood appears bright red in color. Pupils are midsize and reactive to light. Chest examination; diminished but clear breath sounds bilaterally. S2 audible, no murmurs. Regular rhythm. Abdomen examination; soft, nondistended. Bowel sounds audible. Extremity examination; no peripheral edema. MAGICIAN/ILLUSIONIST examination; patient spontaneously moves all 4 extremities. Results Result Diagram: 01/07/17 0400 01/07/17 0400 Results 24 hrs Laboratory Tests Test 01/07/17 04:00 Albumin 2.4 L Anion Gap 11 Basophils # Basophils % Blood Morphology Comment Blood Urea Nitrogen 29 H Calcium Level 7.1 L Carbon Dioxide Level 26 Chloride Level 109 Creatinine 1.04 Eosinophils # Eosinophils % Glucose Level 233 #H Hematocrit 20.8 L Hemoglobin 7.1 L Lymphocytes # Lymphocytes % Magnesium Level 1.6 L Mean Corpuscular Hemoglobin 28.6 L Mean Corpuscular Hemoglobin Concent 34.2 Mean Corpuscular Volume 83.6 Mean Platelet Volume 10.8 H Monocytes # Neutrophils # Neutrophils % Nucleated Red Blood Cells # Nucleated Red Blood Cells % Phosphorus Level 3.4 Platelet Count 13 *L Potassium Level 3.3 L Red Blood Count 2.48 L Red Cell Distribution Width 17.3 H Sodium Level 143 White Blood Count 29.3 #H Medications Medications Current Medications Ondansetron HCl (Zofran Inj) 4 mg Q6H PRN IV NAUSEA AND/OR VOMITING; Start 12/23 at 16:30 Nitroglycerin (Nitroglycerin (Sl Tab) 0.4 Mg) 1 tab Q5M PRN SL CHEST PAIN; Start 12/23/16 at 16:30 Acetaminophen (Tylenol Supp) 650 mg Q4H PRN [place] PAIN LEVEL 1-3 OR FEVER Last administered on 12/25/16 01:06; Admin Dose 650 MG; Start 12/23/16 at 16:30 Bisacodyl (Dulcolax) 5 mg DAILY PRN PO CONSTIPATION; Start 12/23/16 at 16:30 Pantoprazole (Protonix Iv) 40 mg DAILY@06 IV Last administered on 01/07/17 05: 12; Admin Dose 40 MG; Start 12/24/16 at 06:00 IV Flush 10 ml 10 ml PRN PRN IV IV PROTOCOL; Start 01/03/17 at 16:30 Doxycycline Hyclate 100 mg/ Sodium Chloride 250 ml @ 250 mls/hr Q12 IVPB Last administered on 01/07/17 08:54; Admin Dose 250 MLS/HR; Start 01/03/17 at 21:00 Metronidazole 100 ml @ 100 mls/hr Q8 IVPB Last administered on 01/07/17 05:35 ; Admin Dose 100 MLS/HR; Start 01/04/17 at 14:00 Dextrose (D5W) 1,000 ml @ 60 mls/hr [id number] IV Last administered on 01/07/17 07:06; Admin Dose 60 MLS/HR; Start 01/05/17 at 14:00 Morphine Sulfate (morphine) 1 mg Q4H PRN IV PAIN LEVEL 7-10 Last administered on 01/07/17 08:54; Admin Dose 1 MG; Start 01/05/17 at 14:00 Lorazepam (Ativan) 2 mg Q1HWA PRN IV AGITATION Last administered on 01/07/17 07:49; Admin Dose 2 MG; Start 01/06/17 at 09:30 Quetiapine Fumarate 25 mg 25 mg QHS NGT Last administered on 01/06/17 21:01; Admin Dose 25 MG; Start 01/06/17 at 21:00 Magnesium Sulfate 3 gm/Sodium Chloride 106 ml @ 35.333 mls/ hr ONCE ONCE IVPB Last administered on 01/07/17 07:53; Admin Dose 35.333 MLS/HR; Start at 06:30; Stop 01/07/17 at 09:29 Potassium Chloride (KCl 40 MEQ/250 ML NS) 250 ml @ 62.5 mls/hr ONCE IVPB Last administered on 01/07/17 07:53; Admin Dose 62.5 MLS/HR; Start 01/07/17 at 06:30 ; Stop 01/07/17 at 10:29 MYESHA OLIVER Jan 07, 2017 09:18
[2017-01-07 10:06] LABS: EOSINOPHILS # 0.3 10^3/ul (0.0-0.5); LYMPHOCYTES # 24.6 10^3/ul (0.8-2.9); MONOCYTE # 2.1 10^3/ul (0.3-0.9); MYELOCYTES # 0.6; NEUTROPHIL # 1.2 10^3/ul (1.6-7.5)
[2017-01-07 10:09] LABS: ANISOCYTOSIS 1+; HYPOCHROMASIA 1+
--- NOTE | 2017-01-07 10:22 | PN ---
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 PROBLEMS: - Encephalopathy (Acute): per family patient was alert / oriented and functioning prior to admission Still requiring restraints - Sepsis - 2/2 to Influenza / PNA : resolved - Influenza A: s/p treatment - HCAP : improving - Acute Hypoxemic Resp failure 2/ PNA and CHF: Improved / now extubated and stable on NC - CML / MDS Leucocytosis worsening - Severe Anemia 2/2 MDS Has had 5 units PRBCs so far - Severe Platelet refractory thrombocytopenia Has also had 5 units platelets so far Patient having acute nose bleed 2/2 severe thrombocytopenia - Acute Renal failure Resolved / Cr WNL x 2 days - CHF-systolic and diastolic acute on chronic Improved - NSTEMI type 2 med mgt - COPD : stable - Hypernatremia - Dysphagia: NGT - Cardiomyopathy with decreased left ventricular ejection fraction, last being approximately 45% to 50% by echo 11/2016. PLAN: Continue ICU care for now as patient is still tachycardic / confused and very prone to bleeds Family leaning towards DNR per nephew / we need confirmation from Planned for platelet and PRBC transfusion for severe anemia and nosebleeds Will order MRI after transfusions if patient is more stable Continue Seroquel for confusion / increase to BID if no improvement Continue supportive care Prognosis: Guarded PROPHYLAXIS: IV PPI / SCDs CRITICAL CARE TIME: >35 mins Subjective 24 Hr Interval Summary Free Text/Dictation Patient seen Spoke with nephew at bedside Patient still confused and mildy agitated. Moving without purpose, trying to get out of bed, non communicative, non responsive. Subjective hx not possible: pt non-verbal Exam/Review of Systems Vital Signs Vitals Vital Signs Date Time Temp Pulse Resp B/P Pulse Ox O2 Delivery O2 Flow Rate FiO2 01/07/17 08:00 98.0 99 20 115/47 93 Nasal Cannula 4.0 01/06/17 18:12 28 Intake and Output 01/06/17 01/06/17 01/07/17 15:00 23:00 07:00 Intake Total 280 ml 1245 ml 1025 ml Output Total 430 ml 410 ml 625 ml Balance -150 ml 835 ml 400 ml Exam Constitutional: alert, distress, frail, non-verbal, No obese, No oriented Psych: confusion Head: normocephalic Eyes: other (active nose bleed with packing in place) Respiratory: diminished breath sounds Cardiovascular: No regular rate and rhythm (tachycardia) Gastrointestinal: bowel sounds, non-tender (does not seem tender), soft Extremities: No edema Neurological: confused, No focal weakness Results Result Diagram: 01/07/17 0400 01/07/17 0400 Results 24 hrs Laboratory Tests Test 01/07/17 04:00 Albumin 2.4 L Anion Gap 11 Basophils # Basophils % Blood Morphology Comment Blood Urea Nitrogen 29 H Calcium Level 7.1 L Carbon Dioxide Level 26 Chloride Level 109 Creatinine 1.04 Eosinophils # Eosinophils % Glucose Level 233 #H Hematocrit 20.8 L Hemoglobin 7.1 L Lymphocytes # Lymphocytes % Magnesium Level 1.6 L Mean Corpuscular Hemoglobin 28.6 L Mean Corpuscular Hemoglobin Concent 34.2 Mean Corpuscular Volume 83.6 Mean Platelet Volume 10.8 H Monocytes # Neutrophils # Neutrophils % Nucleated Red Blood Cells # Nucleated Red Blood Cells % Phosphorus Level 3.4 Platelet Count 13 *L Potassium Level 3.3 L Red Blood Count 2.48 L Red Cell Distribution Width 17.3 H Sodium Level 143 White Blood Count 29.3 #H Medications Medications Current Medications Ondansetron HCl (Zofran Inj) 4 mg Q6H PRN IV NAUSEA AND/OR VOMITING; Start 12/23 at 16:30 Nitroglycerin (Nitroglycerin (Sl Tab) 0.4 Mg) 1 tab Q5M PRN SL CHEST PAIN; Start 12/23/16 at 16:30 Acetaminophen (Tylenol Supp) 650 mg Q4H PRN [place] PAIN LEVEL 1-3 OR FEVER Last administered on 12/25/16 01:06; Admin Dose 650 MG; Start 12/23/16 at 16:30 Bisacodyl (Dulcolax) 5 mg DAILY PRN PO CONSTIPATION; Start 12/23/16 at 16:30 Pantoprazole (Protonix Iv) 40 mg DAILY@06 IV Last administered on 01/07/17 05: 12; Admin Dose 40 MG; Start 12/24/16 at 06:00 IV Flush 10 ml 10 ml PRN PRN IV IV PROTOCOL; Start 01/03/17 at 16:30 Doxycycline Hyclate 100 mg/ Sodium Chloride 250 ml @ 250 mls/hr Q12 IVPB Last administered on 01/07/17 08:54; Admin Dose 250 MLS/HR; Start 01/03/17 at 21:00 Metronidazole 100 ml @ 100 mls/hr Q8 IVPB Last administered on 01/07/17 05:35 ; Admin Dose 100 MLS/HR; Start 01/04/17 at 14:00 Dextrose (D5W) 1,000 ml @ 60 mls/hr [id number] IV Last administered on 01/07/17 07:06; Admin Dose 60 MLS/HR; Start 01/05/17 at 14:00 Morphine Sulfate (morphine) 1 mg Q4H PRN IV PAIN LEVEL 7-10 Last administered on 01/07/17 08:54; Admin Dose 1 MG; Start 01/05/17 at 14:00 Lorazepam (Ativan) 2 mg Q1HWA PRN IV AGITATION Last administered on 01/07/17 09:31; Admin Dose 2 MG; Start 01/06/17 at 09:30 Quetiapine Fumarate 25 mg 25 mg QHS NGT Last administered on 01/06/17 21:01; Admin Dose 25 MG; Start 01/06/17 at 21:00 Potassium Chloride (KCl 40 MEQ/250 ML NS) 250 ml @ 62.5 mls/hr ONCE IVPB Last administered on 01/07/17 07:53; Admin Dose 62.5 MLS/HR; Start 01/07/17 at 06:30 ; Stop 01/07/17 at 10:29 Procedures Procedures PROCEDURE: XR Chest. 01/05/17 CLINICAL INDICATION: Pneumonia TECHNIQUE: Portable single view of the chest COMPARISON: 01/03 FINDINGS: Pulmonary vascular congestion and interstitial edema has improved compared with prior. Left lower lobe alveolar infiltrate appears perhaps slightly increased, however. Right upper lobe lung nodule is again seen and there appear to be multiple right lung apex nodules present as well. Right PICC line is again seen in place. No pleural effusion is seen. Aortic calcification. IMPRESSION: Probable improving congestive heart failure. Alveolar infiltrate or edema left lower lobe appears slightly increased. Otherwise stable exam. RPTAT: HLBE Erica oNwak, Physician Date Time Electronically viewed and signed by Erica Nowak, Physician on 01/05/2017 07 :40 LE/ CC: DARLENE CARTAGENA NP, [place] M. Jan 07, 2017 10:13
[2017-01-07] MEDS ORDERED: CA CHLORIDE 10% 10 ML SYRINGE IV ONE (10:30)
--- NOTE | 2017-01-07 12:13 | PN ---
DATE: 01/07/2017 SUBJECTIVE: No acute changes. The patient is lethargic, on and off restless, lying comfortably in bed. He had epistaxis. His nose is packed with gauze. He is in no distress. VITAL SIGNS: Temperature 98, pulse 100, respirations 17, blood pressure 126/57 , saturation 96% on 4 liters. WBC 29.3, H and H 7.1 and 20.8, platelets 13, neutrophils 4, BUN 29, creatinine 1.04. MICROBIOLOGY: Blood and urine cultures since 01/04/2017 remain negative. ANTIMICROBIALS: The patient is on Flagyl and IV doxycycline. INDWELLINGS: PICC line placed on 01/03/2017 and Leyva catheter. PHYSICAL EXAMINATION: GENERAL: This is a fragile, chronically ill-appearing, elderly man who is lying comfortably in bed. HEENT: Head atraumatic, normocephalic. Sclerae anicteric. Buccal mucosa dry. NECK: Supple, trachea midline. CHEST: Rise symmetrical. Breath sounds with scattered rhonchi. HEART: S1, S2. ABDOMEN: Soft. Bowel tones present. EXTREMITIES: Without cyanosis. ASSESSMENT: 1. Persistent leukocytosis, likely secondary to myelodysplasia. 2. Status post pneumonia and influenza A virus, treated with 2 weeks IV antibiotics and completed Tamiflu for 7 days, repeat influenza swab on 2016 negative. 3. Acute encephalopathy. 4. Anemia with thrombocytopenia. 5. Dysphagia. 6. Diarrhea, patient is on empiric Flagyl. PLAN: Remains unchanged. He is being followed by multiple specialists. His white blood cell count is tracing down, today 29.3. We are going to order procalcitonin level to make sure there is no underlying infection. Continue present care, anti-aspiration measures. Follow recommendations of specialists. Dictated By: DARLENE CARTAGENA [employer]IN[employer]AL [employer]IAL WORKER for [employer] Conf#: [id number] DID#: [id number] MTDD
--- NOTE | 2017-01-07 12:35 | CONS ---
Date/Time of Note Date/Time of Note DATE: 01/07/17 TIME: 12:33 Assessment/Plan Assessment/Plan Additional Assessment/Plan 1. Acute kidney injury, likely secondary to acute tubular necrosis in the setting of sepsis.-improved 2. Acute hypoxemic respiratory failure, multifactorial, secondary to sepsis and secondary to pulmonary congestion s/p extubation 3. Acute pulmonary edema with influenza pneumonia.- now improved 4. History of congestive heart failure with diastolic heart failure. 5. History of chronic obstructive pulmonary disease. 6. History of gastroesophageal reflux disease. 7. History of smoking. 8. 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 9. Hypomagnesemia PLAN: making good urine, Creatinine improved to normal KCl 40mEQ IV x 1 ordered for today IV abx as per ID will follow up this critical care note took greater than 45 min to complete Consultation Date/Type/Reason Admit Date/Time Dec 23, 2016 at 15:37 Initial Consult Date 12/23/16 Type of Consultation: NEPHROLOGY Reason for Consultation acute kidney injury Referring Provider: BEN COURTNEY MD 24 HR Interval Summary Free Text/Dictation no acute distress, Cr 1.04, K low , Exam/Review of Systems Vital Signs Vitals Vital Signs Date Time Temp Pulse Resp B/P Pulse Ox O2 Delivery O2 Flow Rate FiO2 01/07/17 12:00 97.8 90 19 110/41 96 Nasal Cannula 4.0 01/06/17 18:12 28 Intake and Output 01/06/17 01/06/17 01/07/17 15:00 23:00 07:00 Intake Total 280 ml 1245 ml 1060 ml Output Total 430 ml 410 ml 725 ml Balance -150 ml 835 ml 335 ml Exam Gen [place]: lethargic, on [place] CV: S1S2, no M/G/R Lungs: coarse breath sounds throughout all lung masters, diminished at the bases , with end expiratory wheezing Abd: soft, NT/ND, +BS, EXT: 1+ edema, no ecchymosis, no clubbing, FROM, muscle wasting noted + silveira catheter Results Result Diagram: 01/07/1739901/07/17399 Results 24 hrs Laboratory Tests Test 01/07/17 04:00 Albumin 2.4 L Anion Gap 11 Anisocytosis 1+ Basophils # Basophils % Blood Morphology Comment Blood Urea Nitrogen 29 H Calcium Level 7.1 L Carbon Dioxide Level 26 Chloride Level 109 Creatinine 1.04 Eosinophils # 0.3 Eosinophils % 1.0 Glucose Level 233 #H Hematocrit 20.8 L Hemoglobin 7.1 L Hypochromasia 1+ Lymphocytes # 24.6 H Lymphocytes % 84.0 H Magnesium Level 1.6 L Mean Corpuscular Hemoglobin 28.6 L Mean Corpuscular Hemoglobin Concent 34.2 Mean Corpuscular Volume 83.6 Mean Platelet Volume 10.8 H Monocytes # 2.1 H Monocytes % 7.0 Myelocytes # 0.6 Myelocytes % 2.0 H Neutrophils # 1.2 L Neutrophils % 4.0 L Nucleated Red Blood Cells # Nucleated Red Blood Cells % Phosphorus Level 3.4 Platelet Count 13 *L Potassium Level 3.3 L Promyelocytes # 0.6 Promyelocytes % 2.0 H Red Blood Count 2.48 L Red Cell Distribution Width 17.3 H Sodium Level 143 White Blood Count 29.3 #H Medications Medications Current Medications Ondansetron HCl (Zofran Inj) 4 mg Q6H PRN IV NAUSEA AND/OR VOMITING; Start 12/23 at 16:30 Nitroglycerin (Nitroglycerin (Sl Tab) 0.4 Mg) 1 tab Q5M PRN SL CHEST PAIN; Start 12/23/16 at 16:30 Acetaminophen (Tylenol Supp) 650 mg Q4H PRN [place] PAIN LEVEL 1-3 OR FEVER Last administered on 12/25/16 01:06; Admin Dose 650 MG; Start 12/23/16 at 16:30 Bisacodyl (Dulcolax) 5 mg DAILY PRN PO CONSTIPATION; Start 12/23/16 at 16:30 Pantoprazole (Protonix Iv) 40 mg DAILY@06 IV Last administered on 01/07/17 05: 12; Admin Dose 40 MG; Start 12/24/16 at 06:00 IV Flush 10 ml 10 ml PRN PRN IV IV PROTOCOL; Start 01/03/17 at 16:30 Doxycycline Hyclate 100 mg/ Sodium Chloride 250 ml @ 250 mls/hr Q12 IVPB Last administered on 01/07/17 08:54; Admin Dose 250 MLS/HR; Start 01/03/17 at 21:00 Metronidazole 100 ml @ 100 mls/hr Q8 IVPB Last administered on 01/07/17 05:35 ; Admin Dose 100 MLS/HR; Start 01/04/17 at 14:00 Dextrose (D5W) 1,000 ml @ 60 mls/hr [id number] IV Last administered on 01/07/17 07:06; Admin Dose 60 MLS/HR; Start 01/05/17 at 14:00 Morphine Sulfate (morphine) 1 mg Q4H PRN IV PAIN LEVEL 7-10 Last administered on 01/07/17 08:54; Admin Dose 1 MG; Start 01/05/17 at 14:00 Lorazepam (Ativan) 2 mg Q1HWA PRN IV AGITATION Last administered on 01/07/17 12:12; Admin Dose 2 MG; Start 01/06/17 at 09:30 Quetiapine Fumarate (Seroquel) 25 mg QHS NGT Last administered on 01/06/17 21: 01; Admin Dose 25 MG; Start 01/06/17 at 21:00 GILL PEREIRA MD Jan 07, 2017 12:35
--- NOTE | 2017-01-07 13:53 | CONS ---
Date/Time of Note Date/Time of Note DATE: 01/07/17 TIME: 13:49 Assessment/Plan Assessment/Plan Chief Complaint/Hosp Course IMPRESSION: 1. Respiratory failure-improved s/p extubation 2. Cardiomyopathy with decreased left ventricular ejection fraction, last being approximately 45% to 50% by echo 11/2016. 3. Hypotension, borderline. 4. Influenza positive. 5. History of chronic myelogenous leukemia. 6. Renal failure-slowly improving. 7. Thrombocytopenia, severe. 8. Anemia. 9. Leukocytosis. 10.CHF-systolic and diastolic acute on chronic 11.Positive troponin-likely demand event Recc: -Tele -serial ecg's -Continue abx's and f/u cx data -Follow volume status closely -continue Doxycycline -Follow BP closely -Follow for bleeding complications/need for platelet transfusion -Trend cardiac enzymes and start BB given prior positive troponin Problems: Consultation Date/Type/Reason Admit Date/Time Dec 23, 2016 at 15:37 Initial Consult Date 12/24/16 Type of Consultation: Cardiology Reason for Consultation cardiomyopathy Referring Provider: BEN COURTNEY MD Exam/Review of Systems Vital Signs Vitals Vital Signs Date Time Temp Pulse Resp B/P Pulse Ox O2 Delivery O2 Flow Rate FiO2 01/07/17 13:00 93 18 120/53 95 Nasal Cannula 4.0 01/07/17 12:00 97.8 01/06/17 18:12 28 Intake and Output 01/06/17 01/06/17 01/07/17 15:00 23:00 07:00 Intake Total 280 ml 1245 ml 1060 ml Output Total 430 ml 410 ml 725 ml Balance -150 ml 835 ml 335 ml Exam Review of Systems: CONSTITUTIONAL: No fevers, chills. PULMONARY: No sob CARDIOVASCULAR: No obvious chest pain/palpitations GASTROINTESTINAL: No nausea/vomiting. GENITOURINARY: No hematuria/dysuria. MUSCULOSKELETAL: No obvious myagias/arthalgias. PSYCHIATRIC: The patient denies depression. NEUROLOGIC: lethargic/confused Constitutional: other (sleeping) Psych: no complaints Head: normocephalic ENMT: mucosa pink and moist Neck: jvd (9 cm water), supple Respiratory: diminished breath sounds (at bases/B) Cardiovascular: regular rate and rhythm Gastrointestinal: non-tender, soft Musculoskeletal: muscle tone (normal) Extremities: edema (none) Neurological: lethargic Results Result Diagram: 01/07/17 0400 01/07/17 0400 Results 24 hrs Laboratory Tests Test 01/07/17 04:00 Albumin 2.4 L Anion Gap 11 Anisocytosis 1+ Basophils # Basophils % Blood Morphology Comment Blood Urea Nitrogen 29 H Calcium Level 7.1 L Carbon Dioxide Level 26 Chloride Level 109 Creatinine 1.04 Eosinophils # 0.3 Eosinophils % 1.0 Glucose Level 233 #H Hematocrit 20.8 L Hemoglobin 7.1 L Hypochromasia 1+ Lymphocytes # 24.6 H Lymphocytes % 84.0 H Magnesium Level 1.6 L Mean Corpuscular Hemoglobin 28.6 L Mean Corpuscular Hemoglobin Concent 34.2 Mean Corpuscular Volume 83.6 Mean Platelet Volume 10.8 H Monocytes # 2.1 H Monocytes % 7.0 Myelocytes # 0.6 Myelocytes % 2.0 H Neutrophils # 1.2 L Neutrophils % 4.0 L Nucleated Red Blood Cells # Nucleated Red Blood Cells % Phosphorus Level 3.4 Platelet Count 13 *L Potassium Level 3.3 L Promyelocytes # 0.6 Promyelocytes % 2.0 H Red Blood Count 2.48 L Red Cell Distribution Width 17.3 H Sodium Level 143 White Blood Count 29.3 #H Medications Medications Current Medications Ondansetron HCl (Zofran Inj) 4 mg Q6H PRN IV NAUSEA AND/OR VOMITING; Start 12/23 at 16:30 Nitroglycerin (Nitroglycerin (Sl Tab) 0.4 Mg) 1 tab Q5M PRN SL CHEST PAIN; Start 12/23/16 at 16:30 Acetaminophen (Tylenol Supp) 650 mg Q4H PRN [place] PAIN LEVEL 1-3 OR FEVER Last administered on 12/25/16 01:06; Admin Dose 650 MG; Start 12/23/16 at 16:30 Bisacodyl (Dulcolax) 5 mg DAILY PRN PO CONSTIPATION; Start 12/23/16 at 16:30 Pantoprazole (Protonix Iv) 40 mg DAILY@06 IV Last administered on 01/07/17 05: 12; Admin Dose 40 MG; Start 12/24/16 at 06:00 IV Flush 10 ml 10 ml PRN PRN IV IV PROTOCOL; Start 01/03/17 at 16:30 Doxycycline Hyclate 100 mg/ Sodium Chloride 250 ml @ 250 mls/hr Q12 IVPB Last administered on 01/07/17 08:54; Admin Dose 250 MLS/HR; Start 01/03/17 at 21:00 Metronidazole 100 ml @ 100 mls/hr Q8 IVPB Last administered on 01/07/17 05:35 ; Admin Dose 100 MLS/HR; Start 01/04/17 at 14:00 Dextrose (D5W) 1,000 ml @ 60 mls/hr [id number] IV Last administered on 01/07/17 07:06; Admin Dose 60 MLS/HR; Start 01/05/17 at 14:00 Morphine Sulfate (morphine) 1 mg Q4H PRN IV PAIN LEVEL 7-10 Last administered on 01/07/17 08:54; Admin Dose 1 MG; Start 01/05/17 at 14:00 Lorazepam (Ativan) 2 mg Q1HWA PRN IV AGITATION Last administered on 01/07/17 12:12; Admin Dose 2 MG; Start 01/06/17 at 09:30 Quetiapine Fumarate (Seroquel) 25 mg QHS NGT Last administered on 01/06/17 21: 01; Admin Dose 25 MG; Start 01/06/17 at 21:00 MILENA VELA Jan 07, 2017 13:52
--- NOTE | 2017-01-07 18:33 | RADRPT ---
PROCEDURE: XR, Chest. CLINICAL INDICATION: Follow up for respiratory distress. TECHNIQUE: AP chest. COMPARISON: Chest, 01/05/2017. FINDINGS: There are infiltrates in the both lower lobes and right upper lobe with interval worsening. The hea rt is not enlarged. There is trace left pleural effusion. The tip of the NG tube is in the mid eso phagus with coiling back. The right PICC line remains in good position. IMPRESSION: 1. Infiltrates in the both lower lobes and right upper lobe with interval worsening. 2. The tip of the NG tube is in the mid esophagus with coiling back. Recommend repositioning of th e NG tube. RPTAT: GG .[place] MD, Date Time Electronically viewed and signed by .[place]y [place] MD, on 01/07/2017 18:33 .Y/
--- NOTE | 2017-01-07 19:20 | RADRPT ---
PROCEDURE: XR Chest. CLINICAL INDICATION: Check nasogastric tube position. TECHNIQUE: Single frontal view. COMPARISON: Prior study done earlier the same day. FINDINGS: The nasogastric tube is coiled in the pharynx. Patchy bilateral pulmonary air space disease is unch anged. There is a possible mass in the right upper lobe measuring 1.3 cm. The heart is enlarged. There is no pleural effusion. There is no pneumothorax. IMPRESSION: 1. Nasogastric tube coiled in the pharynx. 2. Bilateral patchy pneumonia, unchanged. 3. Possible right upper lobe mass measuring 1.[address] scan of the chest is advis ed. 4. Cardiomegaly. RPTAT: QQ .Sunil Souza MD, MD Date Time Electronically viewed and signed by .Sunil Souza MD, on 01/07/2017 19:20 .R/
[2017-01-07] MEDS: QUETIAPINE 25 MG TAB NGT SCH (21:00)
[2017-01-08] VITALS (20 sets, daily range): BP systolic 115–168; BP diastolic 48–96; PULSE 82–110; RESP 13–23
[2017-01-08] MEDS: LORAZEPAM 2 MG INJ IV PRN ×7 (01:21→23:24)
[2017-01-08] MEDS: morphine 2 MG INJ IV PRN ×2 (01:48→22:19)
[2017-01-08 04:50] LABS: HEMATOCRIT 23.4 % (42.0-52.0); MEAN CORPUSCULAR HGB CONC 34.2 g/dl (32.0-37.0); MEAN CORPUSCULAR VOLUME 87.9 fl (82.0-101.0); MEAN PLATELET VOLUME 7.8 fl (7.4-10.4); PLATELET COUNT 55 10^3/UL (140-440); RED BLOOD COUNT 2.66 10^6/ul (4.70-6.10); UNCORRECTED WBC 24.2 10^3/ul (4.8-10.8); WHITE BLOOD COUNT 24.2 10^3/ul (4.8-10.8)
[2017-01-08 04:58] LABS: ALBUMIN 2.4 g/dl (3.3-4.9); POTASSIUM 3.6 mmol/L (3.5-5.1)
[2017-01-08 05:01] LABS: CREATININE 1.02 mg/dl (0.61-1.24)
[2017-01-08 05:02] LABS: CALCIUM 7.7 mg/dl (8.4-10.2)
[2017-01-08 05:19] LABS: CONDITION 1; LH ANALYZER COMMENTS 1; SUSPECT 1
[2017-01-08] MEDS: DEXTROSE 5% 1,000 ML IV SCH ×2 (06:08→23:27)
[2017-01-08] MEDS: metroNIDAZOLE 500 MG/NS (PMX) 100 ML IVPB SCH ×3 (06:09→23:25)
[2017-01-08] MEDS: PANTOPRAZOLE 40 MG INJ IV SCH (06:09)
[2017-01-08] MEDS: DOXYCYCLINE 100 MG in SOD CHLORIDE 0.9% 250 ML IVPB SCH (08:21)
--- NOTE | 2017-01-08 08:39 | CONS ---
Date/Time of Note Date/Time of Note DATE: 01/08/17 TIME: 08:36 Assessment/Plan Assessment/Plan Additional Assessment/Plan Assessment recommendations; 1. Patient admitted with severe bilateral pneumonia no successfully extubated several days ago doing very well with continued clinical improvement. 2. Very poor mental status with interval improvement as well. 3. History of CML with pancytopenia. 4. Severe thrombus cytopenia with marked improvement in platelet count. 6. Nasal bleeding with interval resolution as well. Continue current treatment for now the patient is a candidate for rehab transfer. Overall prognosis still remains poor. Consultation Date/Type/Reason Admit Date/Time Dec 23, 2016 at 15:37 Initial Consult Date 12/24/16 Type of Consultation: Pulmonary/critical care Referring Provider: BEN COURTNEY MD 24 HR Interval Summary Free Text/Dictation Patient condition is markedly improved. Mental status also is improving. Patient will be able to verbalize somewhat. No further episodes of agitation. Patient's nasal bleeding also has stopped after he was transfused 2 units of platelets yesterday. General exam; elderly male, currently in no distress. Awake. Exam/Review of Systems Vital Signs Vitals Vital Signs Date Time Temp Pulse Resp B/P Pulse Ox O2 Delivery O2 Flow Rate FiO2 01/08/17 07:00 91 13 120/70 98 Nasal Cannula 4.0 01/08/17 04:00 99.0 01/06/17 18:12 28 Intake and Output 01/07/17 01/07/17 01/08/17 15:00 23:00 07:00 Intake Total 1107.83 ml 782 ml 580 ml Output Total 950 ml 850 ml 1000 ml Balance 157.83 ml -68 ml -420 ml Exam H EENT examination; supple neck, no JVD. No lymphadenopathy. No nasal bleeding seen. Chest examination; diminished but clear breath sounds bilaterally. S1-S2 audible, no murmurs, regular rhythm. Abdomen examination; soft, nontender. No organomegaly. Bowel sounds audible. Extremity examination; no peripheral edema. DRY MOLDER examination; patient follows simple commands and moves all 4 extremities. Results Result Diagram: 01/08/17 0345 01/08/17 0345 Results 24 hrs Laboratory Tests Test 01/08/17 03:45 Albumin 2.4 L Anion Gap 14 Basophils # Basophils % Blood Morphology Comment Blood Urea Nitrogen 27 H Calcium Level 7.7 L Carbon Dioxide Level 27 Chloride Level 111 H Creatinine 1.02 Eosinophils # Eosinophils % Glucose Level 99 # Hematocrit 23.4 L Hemoglobin 8.0 L Lymphocytes # Lymphocytes % Magnesium Level 1.7 Mean Corpuscular Hemoglobin 30.0 Mean Corpuscular Hemoglobin Concent 34.2 Mean Corpuscular Volume 87.9 Mean Platelet Volume 7.8 # Monocytes # Neutrophils # Neutrophils % Nucleated Red Blood Cells # Nucleated Red Blood Cells % Phosphorus Level 4.0 Platelet Count 55 #L Potassium Level 3.6 Red Blood Count 2.66 L Red Cell Distribution Width 18.0 H Sodium Level 148 H Troponin I < 0.012 White Blood Count 24.2 H Medications Medications Current Medications Ondansetron HCl (Zofran Inj) 4 mg Q6H PRN IV NAUSEA AND/OR VOMITING; Start 12/23 at 16:30 Nitroglycerin (Nitroglycerin (Sl Tab) 0.4 Mg) 1 tab Q5M PRN SL CHEST PAIN; Start 12/23/16 at 16:30 Acetaminophen (Tylenol Supp) 650 mg Q4H PRN [place] PAIN LEVEL 1-3 OR FEVER Last administered on 12/25/16 01:06; Admin Dose 650 MG; Start 12/23/16 at 16:30 Bisacodyl (Dulcolax) 5 mg DAILY PRN PO CONSTIPATION; Start 12/23/16 at 16:30 Pantoprazole (Protonix Iv) 40 mg DAILY@06 IV Last administered on 01/08/17 06: 09; Admin Dose 40 MG; Start 12/24/16 at 06:00 IV Flush 10 ml 10 ml PRN PRN IV IV PROTOCOL; Start 01/03/17 at 16:30 Doxycycline Hyclate 100 mg/ Sodium Chloride 250 ml @ 250 mls/hr Q12 IVPB Last administered on 01/08/17 08:21; Admin Dose 250 MLS/HR; Start 01/03/17 at 21:00 Metronidazole 100 ml @ 100 mls/hr Q8 IVPB Last administered on 01/08/17 06:09 ; Admin Dose 100 MLS/HR; Start 01/04/17 at 14:00 Dextrose (D5W) 1,000 ml @ 60 mls/hr [id number] IV Last administered on 01/08/17 06:08; Admin Dose 60 MLS/HR; Start 01/05/17 at 14:00 Morphine Sulfate (morphine) 1 mg Q4H PRN IV PAIN LEVEL 7-10 Last administered on 01/08/17 01:48; Admin Dose 1 MG; Start 01/05/17 at 14:00 Lorazepam (Ativan) 2 mg Q1HWA PRN IV AGITATION Last administered on 01/08/17 03:57; Admin Dose 2 MG; Start 01/06/17 at 09:30 Quetiapine Fumarate (Seroquel) 25 mg QHS NGT Last administered on 01/06/17 21: 01; Admin Dose 25 MG; Start 01/06/17 at 21:00 MYESHA OLIVER Jan 08, 2017 08:39
[2017-01-08 09:26] LABS: EOSINOPHILS # 0.7 10^3/ul (0.0-0.5); LYMPHOCYTES # 10.6 10^3/ul (0.8-2.9); MONOCYTE # 10.4 10^3/ul (0.3-0.9); NEUTROPHIL # 1.2 10^3/ul (1.6-7.5); PLATELET ESTIMATE PLT APPEAR DECREASED
--- NOTE | 2017-01-08 09:31 | PN ---
DATE: 01/08/2017 TYPE OF REPORT: Hematology progress note. Mr. Townsend remains lethargic. Responds minimally to verbal stimuli. The patient did receive 2 units of packed red blood cells and 1 unit of platelet pheresis on 017. OBJECTIVE VITAL SIGNS: Temperature 99 orally, pulse 85 per minute and regular, blood pressure 120/70, pulse o ximetry 98% on 4 liters of oxygen via nasal cannula. SKIN: Scattered ecchymosis and purpura Pale. HEENT: No mucosal lesions. No scleral icterus. There is an NG tube in place. NECK: Supple, no jugular venous distention or thyroid enlargement. CHEST: Decreased breath sounds throughout with scattered rales. No rubs or wheezes. HEART: Regular sinus rhythm, no S3, S4, or murmurs. NODES: No palpable lymphadenopathy. ABDOMEN: Soft. There is a spleen tip palpable in the left upper quadrant. No ascites. Bowel soun ds are active. There is no succussion splash. EXTREMITIES: No clubbing or cyanosis. NEUROLOGIC: Reveals no focal neurologic abnormalities. The patient is lethargic and responds poorl y to any stimulus. LABORATORY DATA: White count today 24,200, hemoglobin is 8, hematocrit 23.4, platelet count is 55,0 00. Sodium 148, potassium 3.6, creatinine 1.02, BUN 27. ASSESSMENT: Myelodysplastic syndrome, chronic myelomonocytic leukemia. PLAN: The patient will be transfused as needed with both red cells and platelets. The patient did have an excellent response to the platelet transfusion which was administered yester day. This is unusual, given this the number of alloantibodies this patient has formed in his usual small increment from platelet transfusion. The patient did have epistaxis, which has been controlled with the transfusion. Dictated By: OPAL MOSES MD SR/NTS Conf#: [id number] DID#: [id number]
--- NOTE | 2017-01-08 11:38 | CONS ---
Date/Time of Note Date/Time of Note DATE: 01/08/17 TIME: 11:35 Assessment/Plan Assessment/Plan Additional Assessment/Plan 1. Acute kidney injury, likely secondary to acute tubular necrosis in the setting of sepsis.-improved 2. Acute hypoxemic respiratory failure, multifactorial, secondary to sepsis and secondary to pulmonary congestion s/p extubation 3. Acute pulmonary edema with influenza pneumonia.- now improved 4. History of congestive heart failure with diastolic heart failure. 5. History of chronic obstructive pulmonary disease. 6. History of gastroesophageal reflux disease. 7. History of smoking. 8. 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 9. Hypomagnesemia PLAN: making good urine, Creatinine improved to normal Na trending up to 148- increase D5 W to 80cc/hour IV abx as per ID will follow up this critical care note took greater than 45 min to complete Consultation Date/Type/Reason Admit Date/Time Dec 23, 2016 at 15:37 Initial Consult Date 12/23/16 Type of Consultation: NEPHROLOGY Reason for Consultation Acute kidney injury due to ATN, hyperkalemia Referring Provider: BEN COURTNEY MD 24 HR Interval Summary Free Text/Dictation pt remains agitated, vitals stable, required sitter , Na 148, Cr normal Exam/Review of Systems Vital Signs Vitals Vital Signs Date Time Temp Pulse Resp B/P Pulse Ox O2 Delivery O2 Flow Rate FiO2 01/08/17 08:00 90 01/08/17 07:00 13 120/70 98 Nasal Cannula 4.0 01/08/17 04:00 99.0 01/06/17 18:12 28 Intake and Output 01/07/17 01/07/17 01/08/17 15:00 23:00 07:00 Intake Total 1107.83 ml 782 ml 580 ml Output Total 950 ml 850 ml 1000 ml Balance 157.83 ml -68 ml -420 ml Exam Gen [place]: alert, agitated CV: S1S2, no M/G/R Lungs: coarse breath sounds throughout all lung masters, diminished at the bases , with end expiratory wheezing Abd: soft, NT/ND, +BS, EXT: 1+ edema, no ecchymosis, no clubbing, FROM, muscle wasting noted + silveira catheter Results Result Diagram: 01/08/17 0345 01/08/17 0345 Results 24 hrs Laboratory Tests Test 01/08/17 03:45 Albumin 2.4 L Anion Gap 14 Basophils # Basophils % Blood Morphology Comment Blood Urea Nitrogen 27 H Calcium Level 7.7 L Carbon Dioxide Level 27 Chloride Level 111 H Creatinine 1.02 Eosinophils # 0.7 H Eosinophils % 3.0 Glucose Level 99 # Hematocrit 23.4 L Hemoglobin 8.0 L Lymphocytes # 10.6 H Lymphocytes % 44.0 Magnesium Level 1.7 Mean Corpuscular Hemoglobin 30.0 Mean Corpuscular Hemoglobin Concent 34.2 Mean Corpuscular Volume 87.9 Mean Platelet Volume 7.8 # Monocytes # 10.4 H Monocytes % 43.0 H Myelocytes # 1.0 Myelocytes % 4.0 H Neutrophils # 1.2 L Neutrophils % 5.0 L Nucleated Red Blood Cells # Nucleated Red Blood Cells % Phosphorus Level 4.0 Platelet Count 55 #L Platelet Estimate PLT APPEAR DECREASED Potassium Level 3.6 Promyelocytes # 0.2 Promyelocytes % 1.0 H Red Blood Count 2.66 L Red Cell Distribution Width 18.0 H Sodium Level 148 H Troponin I < 0.012 White Blood Count 24.2 H Medications Medications Current Medications Ondansetron HCl (Zofran Inj) 4 mg Q6H PRN IV NAUSEA AND/OR VOMITING; Start 12/23 at 16:30 Nitroglycerin (Nitroglycerin (Sl Tab) 0.4 Mg) 1 tab Q5M PRN SL CHEST PAIN; Start 12/23/16 at 16:30 Acetaminophen (Tylenol Supp) 650 mg Q4H PRN [place] PAIN LEVEL 1-3 OR FEVER Last administered on 12/25/16 01:06; Admin Dose 650 MG; Start 12/23/16 at 16:30 Bisacodyl (Dulcolax) 5 mg DAILY PRN PO CONSTIPATION; Start 12/23/16 at 16:30 Pantoprazole (Protonix Iv) 40 mg DAILY@06 IV Last administered on 01/08/17 06: 09; Admin Dose 40 MG; Start 12/24/16 at 06:00 IV Flush 10 ml 10 ml PRN PRN IV IV PROTOCOL; Start 01/03/17 at 16:30 Doxycycline Hyclate 100 mg/ Sodium Chloride 250 ml @ 250 mls/hr Q12 IVPB Last administered on 01/08/17 08:21; Admin Dose 250 MLS/HR; Start 01/03/17 at 21:00 Metronidazole 100 ml @ 100 mls/hr Q8 IVPB Last administered on 01/08/17 06:09 ; Admin Dose 100 MLS/HR; Start 01/04/17 at 14:00 Dextrose (D5W) 1,000 ml @ 60 mls/hr [id number] IV Last administered on 01/08/17 06:08; Admin Dose 60 MLS/HR; Start 01/05/17 at 14:00 Morphine Sulfate (morphine) 1 mg Q4H PRN IV PAIN LEVEL 7-10 Last administered on 01/08/17 01:48; Admin Dose 1 MG; Start 01/05/17 at 14:00 Lorazepam (Ativan) 2 mg Q1HWA PRN IV AGITATION Last administered on 01/08/17 10:04; Admin Dose 2 MG; Start 01/06/17 at 09:30 Quetiapine Fumarate (Seroquel) 25 mg QHS NGT Last administered on 01/06/17 21: 01; Admin Dose 25 MG; Start 01/06/17 at 21:00 GILL PEREIRA MD Jan 08, 2017 11:37
--- NOTE | 2017-01-08 12:12 | CONS ---
Date/Time of Note Date/Time of Note DATE: 01/08/17 TIME: 12:10 Assessment/Plan Assessment/Plan Chief Complaint/Hosp Course IMPRESSION: 1. Respiratory failure-improved s/p extubation 2. Cardiomyopathy with decreased left ventricular ejection fraction, last being approximately 45% to 50% by echo 11/2016. 3. Hypotension, borderline. 4. Influenza positive. 5. History of chronic myelogenous leukemia. 6. Renal failure-slowly improving. 7. Thrombocytopenia, severe. 8. Anemia. 9. Leukocytosis. 10.CHF-systolic and diastolic acute on chronic 11.Positive troponin-likely demand event. Now trended negative Recc: -Tele -serial ecg's -Continue abx's and f/u cx data -Follow volume status closely -continue Doxycycline -Follow BP closely -Follow for bleeding complications/need for platelet transfusion -Trend cardiac enzymes and start BB given prior positive troponin Problems: Consultation Date/Type/Reason Admit Date/Time Dec 23, 2016 at 15:37 Initial Consult Date 12/24/16 Type of Consultation: Cardiology Reason for Consultation positive troponin/cardiomyopathy Referring Provider: BEN COURTNEY MD Exam/Review of Systems Vital Signs Vitals Vital Signs Date Time Temp Pulse Resp B/P Pulse Ox O2 Delivery O2 Flow Rate FiO2 01/08/17 08:00 90 01/08/17 07:00 13 120/70 98 Nasal Cannula 4.0 01/08/17 04:00 99.0 01/06/17 18:12 28 Intake and Output 01/07/17 01/07/17 01/08/17 15:00 23:00 07:00 Intake Total 1107.83 ml 782 ml 580 ml Output Total 950 ml 850 ml 1000 ml Balance 157.83 ml -68 ml -420 ml Exam Review of Systems: CONSTITUTIONAL: No fevers, chills. PULMONARY: No sob CARDIOVASCULAR: No chest pain/palpitations GASTROINTESTINAL: No nausea/vomiting. GENITOURINARY: No hematuria/dysuria. MUSCULOSKELETAL: No myagias/arthalgias. PSYCHIATRIC: The patient denies depression. NEUROLOGIC: confused Constitutional: alert Psych: no complaints Head: normocephalic ENMT: mucosa pink and moist Neck: jvd (9 cm water), supple Respiratory: diminished breath sounds Cardiovascular: regular rate and rhythm Gastrointestinal: non-tender, soft Musculoskeletal: muscle tone (normal) Extremities: edema (none) Neurological: other (No focal deficits) Results Result Diagram: 01/08/17 0345 01/08/17 0345 Results 24 hrs Laboratory Tests Test 01/08/17 03:45 Albumin 2.4 L Anion Gap 14 Basophils # Basophils % Blood Morphology Comment Blood Urea Nitrogen 27 H Calcium Level 7.7 L Carbon Dioxide Level 27 Chloride Level 111 H Creatinine 1.02 Eosinophils # 0.7 H Eosinophils % 3.0 Glucose Level 99 # Hematocrit 23.4 L Hemoglobin 8.0 L Lymphocytes # 10.6 H Lymphocytes % 44.0 Magnesium Level 1.7 Mean Corpuscular Hemoglobin 30.0 Mean Corpuscular Hemoglobin Concent 34.2 Mean Corpuscular Volume 87.9 Mean Platelet Volume 7.8 # Monocytes # 10.4 H Monocytes % 43.0 H Myelocytes # 1.0 Myelocytes % 4.0 H Neutrophils # 1.2 L Neutrophils % 5.0 L Nucleated Red Blood Cells # Nucleated Red Blood Cells % Phosphorus Level 4.0 Platelet Count 55 #L Platelet Estimate PLT APPEAR DECREASED Potassium Level 3.6 Promyelocytes # 0.2 Promyelocytes % 1.0 H Red Blood Count 2.66 L Red Cell Distribution Width 18.0 H Sodium Level 148 H Troponin I < 0.012 White Blood Count 24.2 H Medications Medications Current Medications Ondansetron HCl (Zofran Inj) 4 mg Q6H PRN IV NAUSEA AND/OR VOMITING; Start 12/23 at 16:30 Nitroglycerin (Nitroglycerin (Sl Tab) 0.4 Mg) 1 tab Q5M PRN SL CHEST PAIN; Start 12/23/16 at 16:30 Acetaminophen (Tylenol Supp) 650 mg Q4H PRN [place] PAIN LEVEL 1-3 OR FEVER Last administered on 12/25/16 01:06; Admin Dose 650 MG; Start 12/23/16 at 16:30 Bisacodyl (Dulcolax) 5 mg DAILY PRN PO CONSTIPATION; Start 12/23/16 at 16:30 Pantoprazole (Protonix Iv) 40 mg DAILY@06 IV Last administered on 01/08/17 06: 09; Admin Dose 40 MG; Start 12/24/16 at 06:00 IV Flush 10 ml 10 ml PRN PRN IV IV PROTOCOL; Start 01/03/17 at 16:30 Doxycycline Hyclate 100 mg/ Sodium Chloride 250 ml @ 250 mls/hr Q12 IVPB Last administered on 01/08/17 08:21; Admin Dose 250 MLS/HR; Start 01/03/17 at 21:00 Metronidazole 100 ml @ 100 mls/hr Q8 IVPB Last administered on 01/08/17 06:09 ; Admin Dose 100 MLS/HR; Start 01/04/17 at 14:00 Dextrose (D5W) 1,000 ml @ 80 mls/hr [id number] IV Last administered on 01/08/17 06:08; Admin Dose 60 MLS/HR; Start 01/05/17 at 14:00 Morphine Sulfate (morphine) 1 mg Q4H PRN IV PAIN LEVEL 7-10 Last administered on 01/08/17 01:48; Admin Dose 1 MG; Start 01/05/17 at 14:00 Lorazepam (Ativan) 2 mg Q1HWA PRN IV AGITATION Last administered on 01/08/17 10:04; Admin Dose 2 MG; Start 01/06/17 at 09:30 Quetiapine Fumarate (Seroquel) 25 mg QHS NGT Last administered on 01/06/17 21: 01; Admin Dose 25 MG; Start 01/06/17 at 21:00 MILENA VELA Jan 08, 2017 12:12
--- NOTE | 2017-01-08 13:14 | PN ---
DATE: 01/08/2017 SUBJECTIVE: No events overnight. The patient is awake, looks comfortable. No fevers. Per report, he passed swallow evaluation. LABORATORY DATA: WBC today 24.2, platelets 55, neutrophils 5. BUN 27, creatinine 1.02. ANTIMICROBIALS: 1. Doxycycline. 2. Flagyl. INDWELLINGS: Leyva, PICC line placed on 01/03/2017. PHYSICAL EXAMINATION: GENERAL: Fragile, elderly man in no distress. HEENT: Head atraumatic, normocephalic. Sclerae anicteric. Buccal mucosa dry. NECK: Supple, trachea midline. CHEST: Rise symmetrical. Breath sounds diminished to bases. HEART: S1, S2. ABDOMEN: Soft, bowel sounds present. EXTREMITIES: Without cyanosis. ASSESSMENT: 1. Resolving sepsis, status post pneumonia. 2. Status post respiratory failure. 3. Status post influenza A virus, treated with repeat influenza swab on 01/03/2017 negative. 4. Persistent leukocytosis with anemia and thrombocytopenia secondary to myelodysplastic syndrome a nd chronic myelogenous leukemia. 5. Encephalopathy. 6. Diarrhea, remains on empiric Flagyl. PLAN: The patient remains stable. He is being followed by multiple consultants. His white blood c ell count tracing down. Chest x-ray revealed no infiltrates yesterday. We are going to discontinue doxycycline. Keep him on Flagyl for now given persistent diarrhea. Continue anti-aspiration measu res. Dictated By: DARLENE CARTAGENA AMPOULE EXAMINER for CORRINA GOMEZ/NTS Conf#: [id number] DID#: [id number]
--- NOTE | 2017-01-08 14:49 | PN ---
Date/Time of Note Date/Time of Note DATE: 01/08/17 TIME: 14:41 Assessment/Plan VTE Prophylaxis VTE Prophylaxis Intervention: SCD's VTE Contraindication Reason: thrombocytopenia Lines/Catheters IV Catheter Type (from Nrsg): PICC Line Central line still needed: Yes Urinary Cath still in place: Yes Reason Cath still needed: other (indicate) (altered) Assessment/Plan Assessment/Plan 71 yo male with a past medical history of CML on chemotherapy, MDS, GERD, COPD, anemia of chronic disease, who presents with acute shortness of breath sec to + influenza. PROBLEMS: - Encephalopathy (Acute): improving per family patient was alert / oriented and functioning prior to admission / Still requiring restraints - Sepsis - 2/2 to Influenza / PNA : resolved - Influenza A: s/p treatment - HCAP : on abx - Acute Hypoxemic Resp failure / PNA and CHF: Improved / now extubated and stable on NC - CML / MDS Leucocytosis now improving - Severe Anemia 2/2 MDS Has had 9units PRBCs so far - Severe Platelet refractory thrombocytopenia Has also had 5 units platelets so far Nose bleeds have resolved - Acute Renal failure Resolved / Cr WNL x 2 days - CHF-systolic and diastolic acute on chronic Improved - NSTEMI type 2 med mgt - COPD : stable - Hypernatremia - Dysphagia 2/2 encephalopathy - Cardiomyopathy with decreased left ventricular ejection fraction, last being approximately 45% to 50% by echo 11/2016. PLAN: Patient is more stable for transfer out of ICU at this time F/u ST recommendations / continue strict aspiration precautions Continue current abx / add gentle diuresis Optimize electrolytes Continue supportive care Prognosis: Guarded PROPHYLAXIS: IV PPI / SCDs CRITICAL CARE TIME: >35 mins Subjective 24 Hr Interval Summary Free Text/Dictation Patient is now speaking still quite confused but answers questions sometimes appropriately in [place] ST at bedside attempting swallow eval No more nose bleeds Exam/Review of Systems Vital Signs Vitals Vital Signs Date Time Temp Pulse Resp B/P Pulse Ox O2 Delivery O2 Flow Rate FiO2 01/08/17 12:00 84 01/08/17 07:00 13 120/70 98 Nasal Cannula 4.0 01/08/17 04:00 99.0 01/06/17 18:12 28 Intake and Output 01/07/17 01/07/17 01/08/17 15:00 23:00 07:00 Intake Total 1107.83 ml 782 ml 580 ml Output Total 950 ml 850 ml 1000 ml Balance 157.83 ml -68 ml -420 ml Exam Constitutional: alert, No distress, No oriented Eyes: PERRL ENMT: other (dried blood in nasal mucosa) Respiratory: crackles/rales (?), diminished breath sounds Cardiovascular: other (tachycardia improved / no murmurs) Gastrointestinal: bowel sounds, non-tender, soft Neurological: confused Results Result Diagram: 01/08/175 01/08/17 0345 Results 24 hrs Laboratory Tests Test 01/08/17 03:45 Albumin 2.4 L Anion Gap 14 Basophils # Basophils % Blood Morphology Comment Blood Urea Nitrogen 27 H Calcium Level 7.7 L Carbon Dioxide Level 27 Chloride Level 111 H Creatinine 1.02 Eosinophils # 0.7 H Eosinophils % 3.0 Glucose Level 99 # Hematocrit 23.4 L Hemoglobin 8.0 L Lymphocytes # 10.6 H Lymphocytes % 44.0 Magnesium Level 1.7 Mean Corpuscular Hemoglobin 30.0 Mean Corpuscular Hemoglobin Concent 34.2 Mean Corpuscular Volume 87.9 Mean Platelet Volume 7.8 # Monocytes # 10.4 H Monocytes % 43.0 H Myelocytes # 1.0 Myelocytes % 4.0 H Neutrophils # 1.2 L Neutrophils % 5.0 L Nucleated Red Blood Cells # Nucleated Red Blood Cells % Phosphorus Level 4.0 Platelet Count 55 #L Platelet Estimate PLT APPEAR DECREASED Potassium Level 3.6 Promyelocytes # 0.2 Promyelocytes % 1.0 H Red Blood Count 2.66 L Red Cell Distribution Width 18.0 H Sodium Level 148 H Troponin I < 0.012 White Blood Count 24.2 H Medications Medications Current Medications Ondansetron HCl (Zofran Inj) 4 mg Q6H PRN IV NAUSEA AND/OR VOMITING; Start 12/23 at 16:30 Nitroglycerin (Nitroglycerin (Sl Tab) 0.4 Mg) 1 tab Q5M PRN SL CHEST PAIN; Start 12/23/16 at 16:30 Acetaminophen (Tylenol Supp) 650 mg Q4H PRN [place] PAIN LEVEL 1-3 OR FEVER Last administered on 12/25/16 01:06; Admin Dose 650 MG; Start 12/23/16 at 16:30 Bisacodyl (Dulcolax) 5 mg DAILY PRN PO CONSTIPATION; Start 12/23/16 at 16:30 Pantoprazole (Protonix Iv) 40 mg DAILY@06 IV Last administered on 01/08/17 06: 09; Admin Dose 40 MG; Start 12/24/16 at 06:00 IV Flush 10 ml 10 ml PRN PRN IV IV PROTOCOL; Start 01/03/17 at 16:30 Metronidazole 100 ml @ 100 mls/hr Q8 IVPB Last administered on 01/08/17 14:07 ; Admin Dose 100 MLS/HR; Start 01/04/17 at 14:00 Dextrose (D5W) 1,000 ml @ 80 mls/hr [id number] IV Last administered on 01/08/17 06:08; Admin Dose 60 MLS/HR; Start 01/05/17 at 14:00 Morphine Sulfate (morphine) 1 mg Q4H PRN IV PAIN LEVEL 7-10 Last administered on 01/08/17 01:48; Admin Dose 1 MG; Start 01/05/17 at 14:00 Lorazepam (Ativan) 2 mg Q1HWA PRN IV AGITATION Last administered on 01/08/17 10:04; Admin Dose 2 MG; Start 01/06/17 at 09:30 Quetiapine Fumarate (Seroquel) 25 mg QHS NGT Last administered on 01/06/17 21: 01; Admin Dose 25 MG; Start 01/06/17 at 21:00 Metoprolol Tartrate (Lopressor) 25 mg BID PO ; Start 01/08/17 at 21:00 Procedures Procedures PROCEDURE: XR, Chest. CLINICAL INDICATION: Follow up for respiratory distress. TECHNIQUE: AP chest. COMPARISON: Chest, 01/05/2017. FINDINGS: There are infiltrates in the both lower lobes and right upper lobe with interval worsening. The heart is not enlarged. There is trace left pleural effusion. The tip of the NG tube is in the mid esophagus with coiling back. The right PICC line remains in good position. IMPRESSION: 1. Infiltrates in the both lower lobes and right upper lobe with interval worsening. 2. The tip of the NG tube is in the mid esophagus with coiling back. Recommend repositioning of the NG tube. RPTAT: GG .[place] MD, Date Time Electronically viewed and signed by .[place]y [place] MD, on 01/07/2017 18:33 .EZE SAMAYOA Jan 08, 2017 14:49
[2017-01-08] MEDS ORDERED: MAGNESIUM SULFATE 2 GM/50 ML 50 ML IVPB ONE (15:00)
[2017-01-08] MEDS ORDERED: POTASSIUM CHLORIDE 250 ML IVPB ONE (15:00)
[2017-01-08] MEDS: FUROSEMIDE 20 MG INJ IV SCH (17:35)
--- NOTE | 2017-01-08 19:17 | RADRPT ---
PROCEDURE: XR Chest. CLINICAL INDICATION: Right PICC line placement TECHNIQUE: Single AP portable chest. COMPARISON: 01/07/2017 FINDINGS: The cardiomediastinal silhouette is within normal limits of size . Right PICC line catheter tip over lying the mid superior vena cava at the level of the pulmonary jl. Atherosclerotic calcification of the aorta. Stable right upper lobe noncalcified pulmonary nodules. Bilateral perihilar and lowe r lobe interstitial and alveolar air space opacities without significant interval change. .The lung s are clear without pleural effusion or focal consolidation. No pneumothorax. The osseous structures and soft tissues are unremarkable. IMPRESSION: 1. Right PICC line catheter tip to overlying right mid superior vena cava. 2. Stable bilateral perihilar and lower lobe air space disease and right upper lobe pulmonary nodul es. RPTAT:AAJJ Physician Ariel Date Time Electronically viewed and signed by Physician Ariel on 01/08/2017 19:17 LORAINE/
[2017-01-08] MEDS: METOPROLOL 25 MG TAB PO SCH (21:00)
[2017-01-08] MEDS: QUETIAPINE 25 MG TAB NGT SCH (21:00)
[2017-01-08] MEDS: HALOPERIDOL 5 MG INJ IM PRN (23:46)
[2017-01-09] VITALS (20 sets, daily range): BP systolic 104–155; BP diastolic 52–76; PULSE 74–117; RESP 17–20
[2017-01-09] MEDS: LORAZEPAM 2 MG INJ IV PRN ×3 (01:21→06:27)
[2017-01-09] MEDS: metroNIDAZOLE 500 MG/NS (PMX) 100 ML IVPB SCH ×3 (06:29→22:03)
[2017-01-09] MEDS: PANTOPRAZOLE 40 MG INJ IV SCH (06:30)
[2017-01-09 08:13] LABS: ALBUMIN 2.8 g/dl (3.3-4.9); POTASSIUM 3.8 mmol/L (3.5-5.1)
[2017-01-09 08:16] LABS: CREATININE 1.08 mg/dl (0.61-1.24); PHOSPHORUS 4.6 mg/dl (2.5-4.9)
[2017-01-09 08:17] LABS: CALCIUM 7.8 mg/dl (8.4-10.2)
[2017-01-09 08:18] LABS: HEMATOCRIT 25.3 % (42.0-52.0); HEMOGLOBIN 8.5 g/dl (14.0-18.0); MEAN CORPUSCULAR HEMOGLOBIN 29.4 pg (29.0-33.0); MEAN CORPUSCULAR HGB CONC 33.6 g/dl (32.0-37.0); MEAN CORPUSCULAR VOLUME 87.5 fl (82.0-101.0); MEAN PLATELET VOLUME 12.8 fl (7.4-10.4); PLATELET COUNT 40 10^3/UL (140-415); RED BLOOD COUNT 2.89 10^6/ul (4.70-6.10); RED CELL DISTRIBUTION WIDTH 17.5 % (11.5-14.5); WHITE BLOOD COUNT 28.5 10^3/ul (4.8-10.8)
[2017-01-09] MEDS: METOPROLOL 25 MG TAB PO SCH ×2 (08:45→20:54)
[2017-01-09] MEDS: FUROSEMIDE 20 MG INJ IV SCH (08:46)
--- NOTE | 2017-01-09 10:01 | CONS ---
Date/Time of Note Date/Time of Note DATE: 01/09/17 TIME: 09:56 Assessment/Plan Assessment/Plan Additional Assessment/Plan 1. Acute kidney injury, likely secondary to acute tubular necrosis in the setting of sepsis.-improved 2. Acute hypoxemic respiratory failure, multifactorial, secondary to sepsis and secondary to pulmonary congestion s/p extubation 3. Acute pulmonary edema with influenza pneumonia.- now improved 4. History of congestive heart failure with diastolic heart failure. 5. History of chronic obstructive pulmonary disease. 6. History of gastroesophageal reflux disease. 7. History of smoking. 8. 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 9. Hypomagnesemia PLAN: making good urine, Creatinine improved to normal Flush silveira cather with NS 250 cc Q 6 hr for 24 hr Na slightly improved to 147- continue D5 W to 80cc/hour IV abx as per ID will follow up this critical care note took greater than 45 min to complete Consultation Date/Type/Reason Admit Date/Time Dec 23, 2016 at 15:37 Initial Consult Date 12/23/16 Type of Consultation: NEPHROLOGY Reason for Consultation BLESSING, Hyperkalemia, Hypernatremia Referring Provider: BEN COURTNEY MD 24 HR Interval Summary Free Text/Dictation transferred to tele, jordana has bloody urine Exam/Review of Systems Vital Signs Vitals Vital Signs Date Time Temp Pulse Resp B/P Pulse Ox O2 Delivery O2 Flow Rate FiO2 01/09/17 08:08 98 01/09/17 07:17 97.7 20 110/59 94 01/09/17 04:00 Nasal Cannula 2.0 01/08/17 16:39 28 Intake and Output 01/08/17 01/08/17 01/09/17 15:00 23:00 07:00 Intake Total 0 ml 0 ml Output Total 1600 ml 1650 ml Balance -1600 ml -1650 ml Exam Gen [place]: alert, agitated CV: S1S2, no M/G/R Lungs: coarse breath sounds throughout all lung masters, diminished at the bases , with end expiratory wheezing Abd: soft, NT/ND, +BS, EXT: 1+ edema, no ecchymosis, no clubbing, FROM, muscle wasting noted + silveira catheter Results Result Diagram: 01/09/17 0701 01/09/17 0701 Results 24 hrs Laboratory Tests Test 01/09/17 07:01 Albumin 2.8 L Anion Gap 16 Blood Urea Nitrogen 23 H Calcium Level 7.8 L Carbon Dioxide Level 27 Chloride Level 108 Creatinine 1.08 Eosinophils # Eosinophils % Glucose Level 131 Hematocrit 25.3 L Hemoglobin 8.5 L Lymphocytes # Lymphocytes % Mean Corpuscular Hemoglobin 29.4 Mean Corpuscular Hemoglobin Concent 33.6 Mean Corpuscular Volume 87.5 Mean Platelet Volume 12.8 #H Monocytes # Monocytes % Neutrophils # Neutrophils % Phosphorus Level 4.6 Platelet Count 40 #L Potassium Level 3.8 Red Blood Count 2.89 L Red Cell Distribution Width 17.5 H Sodium Level 147 H White Blood Count 28.5 H Medications Medications Current Medications Ondansetron HCl (Zofran Inj) 4 mg Q6H PRN IV NAUSEA AND/OR VOMITING; Start 12/23 at 16:30 Nitroglycerin (Nitroglycerin (Sl Tab) 0.4 Mg) 1 tab Q5M PRN SL CHEST PAIN; Start 12/23/16 at 16:30 Acetaminophen (Tylenol Supp) 650 mg Q4H PRN [place] PAIN LEVEL 1-3 OR FEVER Last administered on 12/25/16 01:06; Admin Dose 650 MG; Start 12/23/16 at 16:30 Bisacodyl (Dulcolax) 5 mg DAILY PRN PO CONSTIPATION; Start 12/23/16 at 16:30 Pantoprazole (Protonix Iv) 40 mg DAILY@06 IV Last administered on 01/09/17 06: 30; Admin Dose 40 MG; Start 12/24/16 at 06:00 IV Flush 10 ml 10 ml PRN PRN IV IV PROTOCOL; Start 01/03/17 at 16:30 Metronidazole 100 ml @ 100 mls/hr Q8 IVPB Last administered on 01/09/17 06:29 ; Admin Dose 100 MLS/HR; Start 01/04/17 at 14:00 Dextrose (D5W) 1,000 ml @ 80 mls/hr [id number] IV Last administered on 01/08/17 23:27; Admin Dose 80 MLS/HR; Start 01/05/17 at 14:00 Morphine Sulfate (morphine) 1 mg Q4H PRN IV PAIN LEVEL 7-10 Last administered on 01/08/17 22:19; Admin Dose 1 MG; Start 01/05/17 at 14:00 Lorazepam (Ativan) 2 mg Q1HWA PRN IV AGITATION Last administered on 01/09/17 06:27; Admin Dose 2 MG; Start 01/06/17 at 09:30 Quetiapine Fumarate (Seroquel) 25 mg QHS NGT Last administered on 01/06/17 21: 01; Admin Dose 25 MG; Start 01/06/17 at 21:00 Metoprolol Tartrate (Lopressor) 25 mg BID PO Last administered on 01/09/17 08: 45; Admin Dose 25 MG; Start 01/08/17 at 21:00 Furosemide (Lasix) 20 mg DAILY IV Last administered on 01/09/17 08:46; Admin Dose 20 MG; Start 01/08/17 at 15:00 Haloperidol (Haldol) 1 mg Q8H PRN IM AGITATION Last administered on 01/08/17 23:46; Admin Dose 1 MG; Start 01/08/17 at 23:30 GILL PEREIRA MD Jan 09, 2017 10:01
--- NOTE | 2017-01-09 10:46 | CONS ---
Date/Time of Note Date/Time of Note DATE: 01/09/17 TIME: 10:43 Assessment/Plan Assessment/Plan Additional Assessment/Plan Assessment recommendations; 1. Patient admitted with severe bilateral pneumonia with respiratory failure no successfully extubated more than 48 hours ago doing fairly well. 2. CML. 3. Number cytopenia, status post platelet transfusion. With improved platelet count. 4. Epistaxis with interval resolution. 5. Poor mental status. 6. Leukocytosis , likely leukemoid reaction. Continue current treatment. Prognosis is extremely poor. Consider Dobbhoff tube placement for feeding purposes. Consultation Date/Type/Reason Admit Date/Time Dec 23, 2016 at 15:37 Initial Consult Date 12/24/16 Type of Consultation: Pulmonary Referring Provider: BEN COURTNEY MD 24 HR Interval Summary Free Text/Dictation Patient condition is stable. Had been transferred out of ICU to telemetry unit. Her mental status very slowly improving but is still not enough that the patient can eat. He is not much responsive and does not follow any commands. Just responds by head nodding to questions. General examination; elderly male currently in no distress. Patient is restrained. There is a sitter in the room Exam/Review of Systems Vital Signs Vitals Vital Signs Date Time Temp Pulse Resp B/P Pulse Ox O2 Delivery O2 Flow Rate FiO2 01/09/17 10:34 97.6 80 20 142/63 98 01/09/17 08:00 Nasal Cannula 2.0 01/08/17 16:39 28 Intake and Output 01/08/17 01/08/17 01/09/17 15:00 23:00 07:00 Intake Total 0 ml 0 ml Output Total 1600 ml 1650 ml Balance -1600 ml -1650 ml Exam H EENT examination; supple neck, no JVD. No lymphadenopathy. Pupils are small bilaterally. Chest examination; diminished breath sounds bilaterally. No added sounds. S1- S2 audible, no murmurs. Regular rhythm. Abdomen examination; soft, nontender. No organomegaly. Bowel sounds audible. Extremity examination; no peripheral edema. CONTENT SPECIALIST examination; patient is awake but does not follow any commands. Results Result Diagram: 01/09/17 0701 01/09/17 0701 Results 24 hrs Laboratory Tests Test 01/09/17 07:01 Albumin 2.8 L Anion Gap 16 Blood Urea Nitrogen 23 H Calcium Level 7.8 L Carbon Dioxide Level 27 Chloride Level 108 Creatinine 1.08 Eosinophils # Eosinophils % Glucose Level 131 Hematocrit 25.3 L Hemoglobin 8.5 L Lymphocytes # Lymphocytes % Mean Corpuscular Hemoglobin 29.4 Mean Corpuscular Hemoglobin Concent 33.6 Mean Corpuscular Volume 87.5 Mean Platelet Volume 12.8 #H Monocytes # Monocytes % Neutrophils # Neutrophils % Phosphorus Level 4.6 Platelet Count 40 #L Potassium Level 3.8 Red Blood Count 2.89 L Red Cell Distribution Width 17.5 H Sodium Level 147 H White Blood Count 28.5 H Medications Medications Current Medications Ondansetron HCl (Zofran Inj) 4 mg Q6H PRN IV NAUSEA AND/OR VOMITING; Start 12/23 at 16:30 Nitroglycerin (Nitroglycerin (Sl Tab) 0.4 Mg) 1 tab Q5M PRN SL CHEST PAIN; Start 12/23/16 at 16:30 Acetaminophen (Tylenol Supp) 650 mg Q4H PRN [place] PAIN LEVEL 1-3 OR FEVER Last administered on 12/25/16 01:06; Admin Dose 650 MG; Start 12/23/16 at 16:30 Bisacodyl (Dulcolax) 5 mg DAILY PRN PO CONSTIPATION; Start 12/23/16 at 16:30 Pantoprazole (Protonix Iv) 40 mg DAILY@06 IV Last administered on 01/09/17 06: 30; Admin Dose 40 MG; Start 12/24/16 at 06:00 IV Flush 10 ml 10 ml PRN PRN IV IV PROTOCOL; Start 01/03/17 at 16:30 Metronidazole 100 ml @ 100 mls/hr Q8 IVPB Last administered on 01/09/17 06:29 ; Admin Dose 100 MLS/HR; Start 01/04/17 at 14:00 Dextrose (D5W) 1,000 ml @ 80 mls/hr [id number] IV Last administered on 01/08/17 23:27; Admin Dose 80 MLS/HR; Start 01/05/17 at 14:00 Morphine Sulfate (morphine) 1 mg Q4H PRN [place] PAIN LEVEL 7-10 Last administered on 01/08/17 22:19; Admin Dose 1 MG; Start 01/05/17 at 14:00 Lorazepam (Ativan) 2 mg Q1HWA PRN IV AGITATION Last administered on 01/09/17 06:27; Admin Dose 2 MG; Start 01/06/17 at 09:30 Quetiapine Fumarate (Seroquel) 25 mg QHS NGT Last administered on 01/06/17 21: 01; Admin Dose 25 MG; Start 01/06/17 at 21:00 Metoprolol Tartrate (Lopressor) 25 mg BID PO Last administered on 01/09/17 08: 45; Admin Dose 25 MG; Start 01/08/17 at 21:00 Furosemide (Lasix) 20 mg DAILY IV Last administered on 01/09/17 08:46; Admin Dose 20 MG; Start 01/08/17 at 15:00 Haloperidol (Haldol) 1 mg Q8H PRN IM AGITATION Last administered on 01/08/17 23:46; Admin Dose 1 MG; Start 01/08/17 at 23:30 MYESHA OLIVER Jan 09, 2017 10:46
[2017-01-09 11:28] LABS: EOSINOPHILS # 0.3 10^3/ul (0.0-0.5); LYMPHOCYTES # 8.6 10^3/ul (0.8-2.9); MONOCYTE # 10.5 10^3/ul (0.3-0.9); NEUTROPHIL # 5.4 10^3/ul (1.6-7.5)
--- NOTE | 2017-01-09 11:30 | PN ---
Date/Time of Note Date/Time of Note DATE: 01/09/17 TIME: 11:28 Assessment/Plan VTE Prophylaxis VTE Prophylaxis Intervention: SCD's Lines/Catheters [facility] Type (from [facility]): PICC Line Central line still needed: Yes Urinary Cath still in place: Yes Reason Cath still needed: other (indicate) Assessment/Plan Assessment/Plan 71 yo male with a past medical history of CML on chemotherapy, MDS, GERD, COPD, anemia of chronic disease, who presents with acute shortness of breath sec to + influenza. PROBLEMS: - Encephalopathy (Acute): improving per family patient was alert / oriented and functioning prior to admission / Still requiring restraints - Sepsis - 2/2 to Influenza / PNA : resolved - Influenza A: s/p treatment - HCAP : on abx - Acute Hypoxemic Resp failure /2 PNA and CHF: Improved / now extubated and stable on NC - CML / MDS Leucocytosis now improving Pulmonary nodules suggestive on CXR : ?mets - Severe Anemia 2/2 MDS Has had 9units PRBCs so far - Severe Platelet refractory thrombocytopenia Has also had 5 units platelets so far Nose bleeds have resolved - Acute Renal failure Resolved / Cr WNL x 2 days - CHF-systolic and diastolic acute on chronic Improved - NSTEMI type 2 med mgt - COPD : stable - Hypernatremia - Dysphagia 2/2 encephalopathy - Cardiomyopathy with decreased left ventricular ejection fraction, last being approximately 45% to 50% by echo 11/2016. PLAN: Resume seroquel / continue strict aspiration precautions Continue current abx Optimize electrolytes Patient will need chest CT and MRI brain when more stable Continue supportive care Prognosis: Guarded PROPHYLAXIS: IV PPI / SCDs Subjective 24 Hr Interval Summary Free Text/Dictation still confused, pulling at lines Exam/Review of Systems Vital Signs Vitals Vital Signs Date Time Temp Pulse Resp B/P Pulse Ox O2 Delivery O2 Flow Rate FiO2 01/09/17 10:34 97.6 80 20 142/63 98 01/09/17 08:00 Nasal Cannula 2.0 01/08/17 16:39 28 Intake and Output 01/08/17 01/08/17 01/09/17 14:59 22:59 06:59 Intake Total 60 ml 0 ml 0 ml Output Total 1600 ml 1650 ml Balance 60 ml -1600 ml -1650 ml Exam Constitutional: alert, No distress, No oriented Eyes: PERRL ENMT: other (dried blood in nasal mucosa) Respiratory: crackles/rales (?), diminished breath sounds Cardiovascular: other (tachycardia improved / no murmurs) Gastrointestinal: bowel sounds, non-tender, soft Neurological: confused Results Result Diagram: 01/09/17 0701 01/09/17 0701 Results 24 hrs Laboratory Tests Test 01/09/17 07:01 Albumin 2.8 L Anion Gap 16 Blood Urea Nitrogen 23 H Calcium Level 7.8 L Carbon Dioxide Level 27 Chloride Level 108 Creatinine 1.08 Eosinophils # Eosinophils % Glucose Level 131 Hematocrit 25.3 L Hemoglobin 8.5 L Lymphocytes # Lymphocytes % Mean Corpuscular Hemoglobin 29.4 Mean Corpuscular Hemoglobin Concent 33.6 Mean Corpuscular Volume 87.5 Mean Platelet Volume 12.8 #H Monocytes # Monocytes % Neutrophils # Neutrophils % Phosphorus Level 4.6 Platelet Count 40 #L Potassium Level 3.8 Red Blood Count 2.89 L Red Cell Distribution Width 17.5 H Sodium Level 147 H White Blood Count 28.5 H Medications Medications Current Medications Ondansetron HCl (Zofran Inj) 4 mg Q6H PRN IV NAUSEA AND/OR VOMITING; Start 12/23 at 16:30 Nitroglycerin (Nitroglycerin (Sl Tab) 0.4 Mg) 1 tab Q5M PRN SL CHEST PAIN; Start 12/23/16 at 16:30 Acetaminophen (Tylenol Supp) 650 mg Q4H PRN [place] PAIN LEVEL 1-3 OR FEVER Last administered on 12/25/16 01:06; Admin Dose 650 MG; Start 12/23/16 at 16:30 Bisacodyl (Dulcolax) 5 mg DAILY PRN PO CONSTIPATION; Start 12/23/16 at 16:30 Pantoprazole (Protonix Iv) 40 mg DAILY@06 IV Last administered on 01/09/17 06: 30; Admin Dose 40 MG; Start 12/24/16 at 06:00 IV Flush 10 ml 10 ml PRN PRN IV IV PROTOCOL; Start 01/03/17 at 16:30 Metronidazole 100 ml @ 100 mls/hr Q8 IVPB Last administered on 01/09/17 06:29 ; Admin Dose 100 MLS/HR; Start 01/04/17 at 14:00 Dextrose (D5W) 1,000 ml @ 80 mls/hr [id number] IV Last administered on 01/08/17 23:27; Admin Dose 80 MLS/HR; Start 01/05/17 at 14:00 Morphine Sulfate (morphine) 1 mg Q4H PRN [place] PAIN LEVEL 7-10 Last administered on 01/08/17 22:19; Admin Dose 1 MG; Start 01/05/17 at 14:00 Lorazepam (Ativan) 2 mg Q1HWA PRN IV AGITATION Last administered on 01/09/17 06:27; Admin Dose 2 MG; Start 01/06/17 at 09:30 Quetiapine Fumarate (Seroquel) 25 mg QHS NGT Last administered on 01/06/17 21: 01; Admin Dose 25 MG; Start 01/06/17 at 21:00 Metoprolol Tartrate (Lopressor) 25 mg BID PO Last administered on 01/09/17 08: 45; Admin Dose 25 MG; Start 01/08/17 at 21:00 Furosemide (Lasix) 20 mg DAILY IV Last administered on 01/09/17 08:46; Admin Dose 20 MG; Start 01/08/17 at 15:00 Haloperidol (Haldol) 1 mg Q8H PRN IM AGITATION Last administered on 01/08/17 23:46; Admin Dose 1 MG; Start 01/08/17 at 23:30 EZE LYLES Jan 09, 2017 11:30
--- NOTE | 2017-01-09 12:05 | CONS ---
Date/Time of Note Date/Time of Note DATE: 01/09/17 TIME: 12:03 Assessment/Plan Assessment/Plan Chief Complaint/Hosp Course IMPRESSION: 1. Respiratory failure-improved s/p extubation 2. Cardiomyopathy with decreased left ventricular ejection fraction, last being approximately 45% to 50% by echo 11/2016. 3. Hypotension, borderline. 4. Influenza positive. 5. History of chronic myelogenous leukemia. 6. Renal failure-slowly improving. 7. Thrombocytopenia, severe. 8. Anemia. 9. Leukocytosis. 10.CHF-systolic and diastolic acute on chronic 11.Positive troponin-likely demand event. Now trended negative Recc: -Tele -serial ecg's -Continue abx's and f/u cx data -Follow volume status closely -continue Doxycycline -Follow BP closely -Follow for bleeding complications/need for platelet transfusion -Continue BB -Trend cardiac enzymes Problems: Consultation Date/Type/Reason Admit Date/Time Dec 23, 2016 at 15:37 Initial Consult Date 12/24/16 Type of Consultation: Cardiology Reason for Consultation cardiomyopathy Referring Provider: BEN COURTNEY MD Exam/Review of Systems Vital Signs Vitals Vital Signs Date Time Temp Pulse Resp B/P Pulse Ox O2 Delivery O2 Flow Rate FiO2 01/09/17 10:34 97.6 80 20 142/63 98 01/09/17 08:00 Nasal Cannula 2.0 01/08/17 16:39 28 Intake and Output 01/08/17 01/08/17 01/09/17 15:00 23:00 07:00 Intake Total 0 ml 0 ml Output Total 1600 ml 1650 ml Balance -1600 ml -1650 ml Exam Review of Systems: CONSTITUTIONAL: No fevers, chills. PULMONARY: No sob CARDIOVASCULAR: No chest pain/palpitations GASTROINTESTINAL: No nausea/vomiting. GENITOURINARY: No hematuria/dysuria. MUSCULOSKELETAL: No myagias/arthalgias. PSYCHIATRIC: The patient denies depression. NEUROLOGIC: confused Constitutional: alert, oriented Psych: no complaints Head: normocephalic ENMT: mucosa pink and moist Neck: jvd (9 cm water), supple Respiratory: diminished breath sounds (at bases/B) Cardiovascular: regular rate and rhythm Gastrointestinal: non-tender, soft Musculoskeletal: muscle tone (normal) Neurological: confused Results Result Diagram: 01/09/17 0701 01/09/17 0701 Results 24 hrs Laboratory Tests Test 01/09/17 07:01 Albumin 2.8 L Anion Gap 16 Blood Urea Nitrogen 23 H Calcium Level 7.8 L Carbon Dioxide Level 27 Chloride Level 108 Creatinine 1.08 Eosinophils # 0.3 Eosinophils % 1.0 Glucose Level 131 Hematocrit 25.3 L Hemoglobin 8.5 L Lymphocytes # 8.6 H Lymphocytes % 30.0 Mean Corpuscular Hemoglobin 29.4 Mean Corpuscular Hemoglobin Concent 33.6 Mean Corpuscular Volume 87.5 Mean Platelet Volume 12.8 #H Monocytes # 10.5 H Monocytes % 37.0 H Neutrophils # 5.4 Neutrophils % 19.0 L Nucleated Red Blood Cells % 1.0 H Phosphorus Level 4.6 Platelet Count 40 #L Potassium Level 3.8 Red Blood Count 2.89 L Red Cell Distribution Width 17.5 H Sodium Level 147 H White Blood Count 28.5 H Medications Medications Current Medications Ondansetron HCl (Zofran Inj) 4 mg Q6H PRN IV NAUSEA AND/OR VOMITING; Start 12/23 at 16:30 Nitroglycerin (Nitroglycerin (Sl Tab) 0.4 Mg) 1 tab Q5M PRN SL CHEST PAIN; Start 12/23/16 at 16:30 Acetaminophen (Tylenol Supp) 650 mg Q4H PRN [place] PAIN LEVEL 1-3 OR FEVER Last administered on 12/25/16 01:06; Admin Dose 650 MG; Start 12/23/16 at 16:30 Bisacodyl (Dulcolax) 5 mg DAILY PRN PO CONSTIPATION; Start 12/23/16 at 16:30 Pantoprazole (Protonix Iv) 40 mg DAILY@06 IV Last administered on 01/09/17 06: 30; Admin Dose 40 MG; Start 12/24/16 at 06:00 IV Flush 10 ml 10 ml PRN PRN IV IV PROTOCOL; Start 01/03/17 at 16:30 Metronidazole 100 ml @ 100 mls/hr Q8 IVPB Last administered on 01/09/17 06:29 ; Admin Dose 100 MLS/HR; Start 01/04/17 at 14:00 Dextrose (D5W) 1,000 ml @ 80 mls/hr [id number] IV Last administered on 01/08/17 23:27; Admin Dose 80 MLS/HR; Start 01/05/17 at 14:00 Morphine Sulfate (morphine) 1 mg Q4H PRN IV PAIN LEVEL 7-10 Last administered on 01/08/17 22:19; Admin Dose 1 MG; Start 01/05/17 at 14:00 Lorazepam (Ativan) 2 mg Q1HWA PRN IV AGITATION Last administered on 01/09/17 06:27; Admin Dose 2 MG; Start 01/06/17 at 09:30 Quetiapine Fumarate (Seroquel) 25 mg QHS NGT Last administered on 01/06/17 21: 01; Admin Dose 25 MG; Start 01/06/17 at 21:00; Status Future Hold Metoprolol Tartrate (Lopressor) 25 mg BID PO Last administered on 01/09/17 08: 45; Admin Dose 25 MG; Start 01/08/17 at 21:00 Furosemide (Lasix) 20 mg DAILY IV Last administered on 01/09/17 08:46; Admin Dose 20 MG; Start 01/08/17 at 15:00 Haloperidol (Haldol) 1 mg Q8H PRN IM AGITATION Last administered on 01/08/17 23:46; Admin Dose 1 MG; Start 01/08/17 at 23:30 Quetiapine Fumarate (Seroquel) 50 mg BID PO ; Start 01/09/17 at 11:30 MILENA VELA Jan 09, 2017 12:04
[2017-01-09] MEDS: QUETIAPINE 25 MG TAB PO SCH ×2 (12:22→20:54)
[2017-01-09] MEDS: HALOPERIDOL 5 MG INJ IM PRN (12:23)
[2017-01-09] MEDS: DEXTROSE 5% 1,000 ML IV SCH ×2 (12:28→22:51)
--- NOTE | 2017-01-09 13:26 | CONS ---
Date/Time of Note Date/Time of Note DATE: 01/09/17 TIME: 13:25 Assessment/Plan Assessment/Plan Chief Complaint/Hosp Course SUBJECTIVE: No events overnight. The patient is sleeping, looks comfortable. No fevers. ANTIMICROBIALS: Flagyl. INDWELLINGS: Leyva, PICC line placed on 01/03/2017. PHYSICAL EXAMINATION: GENERAL: Fragile, elderly man in no distress. HEENT: Head atraumatic, normocephalic. Sclerae anicteric. Buccal mucosa dry. NECK: Supple, trachea midline. CHEST: Rise symmetrical. Breath sounds diminished to bases. HEART: S1, S2. ABDOMEN: Soft, bowel sounds present. EXTREMITIES: Without cyanosis, multiple ecchymosis. ASSESSMENT: 1. Resolving sepsis, status post pneumonia. 2. Status post respiratory failure. 3. Status post influenza A virus, treated with repeat influenza swab on 2016 negative. 4. Persistent leukocytosis with anemia and thrombocytopenia secondary to myelodysplastic syndrome and chronic myelogenous leukemia. 5. Encephalopathy. 6. Diarrhea, remains on empiric Flagyl. PLAN: The patient remains stable. He is being followed by multiple consultants. Continue Flagyl for diarrhea. Continue anti-aspiration measures. Art cx prn DW staff Problems: Consultation Date/Type/Reason Admit Date/Time Dec 23, 2016 at 15:37 Initial Consult Date 12/24/16 Type of Consultation: ID Referring Provider: BEN COURTNEY MD Exam/Review of Systems Vital Signs Vitals Vital Signs Date Time Temp Pulse Resp B/P Pulse Ox O2 Delivery O2 Flow Rate FiO2 01/09/17 12:24 97.9 71 20 132/60 97 01/09/17 08:00 Nasal Cannula 2.0 01/08/17 16:39 28 Intake and Output 01/08/17 01/08/17 01/09/17 15:00 23:00 07:00 Intake Total 0 ml 0 ml Output Total 1600 ml 1650 ml Balance -1600 ml -1650 ml Results Result Diagram: 01/09/17 0701 01/09/17 0701 Results 24 hrs Laboratory Tests Test 01/09/17 07:01 Albumin 2.8 L Anion Gap 16 Blood Urea Nitrogen 23 H Calcium Level 7.8 L Carbon Dioxide Level 27 Chloride Level 108 Creatinine 1.08 Eosinophils # 0.3 Eosinophils % 1.0 Glucose Level 131 Hematocrit 25.3 L Hemoglobin 8.5 L Lymphocytes # 8.6 H Lymphocytes % 30.0 Mean Corpuscular Hemoglobin 29.4 Mean Corpuscular Hemoglobin Concent 33.6 Mean Corpuscular Volume 87.5 Mean Platelet Volume 12.8 #H Monocytes # 10.5 H Monocytes % 37.0 H Neutrophils # 5.4 Neutrophils % 19.0 L Nucleated Red Blood Cells % 1.0 H Phosphorus Level 4.6 Platelet Count 40 #L Potassium Level 3.8 Red Blood Count 2.89 L Red Cell Distribution Width 17.5 H Sodium Level 147 H White Blood Count 28.5 H Medications Medications Current Medications Ondansetron HCl (Zofran Inj) 4 mg Q6H PRN IV NAUSEA AND/OR VOMITING; Start 12/23 at 16:30 Nitroglycerin (Nitroglycerin (Sl Tab) 0.4 Mg) 1 tab Q5M PRN SL CHEST PAIN; Start 12/23/16 at 16:30 Acetaminophen (Tylenol Supp) 650 mg Q4H PRN [place] PAIN LEVEL 1-3 OR FEVER Last administered on 12/25/16 01:06; Admin Dose 650 MG; Start 12/23/16 at 16:30 Bisacodyl (Dulcolax) 5 mg DAILY PRN PO CONSTIPATION; Start 12/23/16 at 16:30 Pantoprazole (Protonix Iv) 40 mg DAILY@06 IV Last administered on 01/09/17 06: 30; Admin Dose 40 MG; Start 12/24/16 at 06:00 IV Flush 10 ml 10 ml PRN PRN IV IV PROTOCOL; Start 01/03/17 at 16:30 Metronidazole 100 ml @ 100 mls/hr Q8 IVPB Last administered on 01/09/17 06:29 ; Admin Dose 100 MLS/HR; Start 01/04/17 at 14:00 Dextrose (D5W) 1,000 ml @ 80 mls/hr [id number] IV Last administered on 01/09/17 12:28; Admin Dose 80 MLS/HR; Start 01/05/17 at 14:00 Morphine Sulfate (morphine) 1 mg Q4H PRN IV PAIN LEVEL 7-10 Last administered on 01/08/17 22:19; Admin Dose 1 MG; Start 01/05/17 at 14:00 Lorazepam (Ativan) 2 mg Q1HWA PRN IV AGITATION Last administered on 01/09/17 06:27; Admin Dose 2 MG; Start 01/06/17 at 09:30 Quetiapine Fumarate (Seroquel) 25 mg QHS NGT Last administered on 01/06/17 21: 01; Admin Dose 25 MG; Start 01/06/17 at 21:00; Status Future Hold Metoprolol Tartrate (Lopressor) 25 mg BID PO Last administered on 01/09/17 08: 45; Admin Dose 25 MG; Start 01/08/17 at 21:00 Furosemide (Lasix) 20 mg DAILY IV Last administered on 01/09/17 08:46; Admin Dose 20 MG; Start 01/08/17 at 15:00 Haloperidol (Haldol) 1 mg Q8H PRN IM AGITATION Last administered on 01/09/17 12:23; Admin Dose 1 MG; Start 01/08/17 at 23:30 Quetiapine Fumarate (Seroquel) 50 mg BID PO Last administered on 01/09/17 12: 22; Admin Dose 50 MG; Start 01/09/17 at 11:30 DARLENE CARTAGENA NP Jan 09, 2017 13:26
--- NOTE | 2017-01-09 17:29 | PN ---
Date/Time of Note Date/Time of Note DATE: 01/09/17 TIME: 17:26 Assessment/Plan VTE Prophylaxis VTE Prophylaxis Intervention: other (thrombocytopenia) Lines/Catheters IV Catheter Type (from Nrsg): PICC Line Central line still needed: Yes Urinary Cath still in place: Yes Reason Cath still needed: other (indicate) (per primary MD) Assessment/Plan Assessment/Plan Pt is making gradual progress. No platelets needed now. Continue present plans. Subjective 24 Hr Interval Summary Free Text/Dictation Pt is sleeping but appears comfortable Exam/Review of Systems Vital Signs Vitals Vital Signs Date Time Temp Pulse Resp B/P Pulse Ox O2 Delivery O2 Flow Rate FiO2 01/09/17 16:11 74 01/09/17 16:01 97.7 20 119/52 97 01/09/17 08:00 Nasal Cannula 2.0 01/08/17 16:39 28 Intake and Output 01/08/17 01/08/17 01/09/17 15:00 23:00 07:00 Intake Total 0 ml 0 ml Output Total 1600 ml 1650 ml Balance -1600 ml -1650 ml Exam Pt sleeping comfortably Results Result Diagram: 01/09/17 0701 01/09/17 0701 Results 24 hrs Laboratory Tests Test 01/09/17 07:01 Albumin 2.8 L Anion Gap 16 Blood Urea Nitrogen 23 H Calcium Level 7.8 L Carbon Dioxide Level 27 Chloride Level 108 Creatinine 1.08 Eosinophils # 0.3 Eosinophils % 1.0 Glucose Level 131 Hematocrit 25.3 L Hemoglobin 8.5 L Lymphocytes # 8.6 H Lymphocytes % 30.0 Mean Corpuscular Hemoglobin 29.4 Mean Corpuscular Hemoglobin Concent 33.6 Mean Corpuscular Volume 87.5 Mean Platelet Volume 12.8 #H Monocytes # 10.5 H Monocytes % 37.0 H Neutrophils # 5.4 Neutrophils % 19.0 L Nucleated Red Blood Cells % 1.0 H Phosphorus Level 4.6 Platelet Count 40 #L Potassium Level 3.8 Red Blood Count 2.89 L Red Cell Distribution Width 17.5 H Sodium Level 147 H White Blood Count 28.5 H Medications Medications Current Medications Ondansetron HCl (Zofran Inj) 4 mg Q6H PRN IV NAUSEA AND/OR VOMITING; Start 12/23 at 16:30 Nitroglycerin (Nitroglycerin (Sl Tab) 0.4 Mg) 1 tab Q5M PRN SL CHEST PAIN; Start 12/23/16 at 16:30 Acetaminophen (Tylenol Supp) 650 mg Q4H PRN [place] PAIN LEVEL 1-3 OR FEVER Last administered on 12/25/16 01:06; Admin Dose 650 MG; Start 12/23/16 at 16:30 Bisacodyl (Dulcolax) 5 mg DAILY PRN PO CONSTIPATION; Start 12/23/16 at 16:30 Pantoprazole (Protonix Iv) 40 mg DAILY@06 IV Last administered on 01/09/17 06: 30; Admin Dose 40 MG; Start 12/24/16 at 06:00 IV Flush 10 ml 10 ml PRN PRN IV IV PROTOCOL; Start 01/03/17 at 16:30 Metronidazole 100 ml @ 100 mls/hr Q8 IVPB Last administered on 01/09/17 13:53 ; Admin Dose 100 MLS/HR; Start 01/04/17 at 14:00 Dextrose (D5W) 1,000 ml @ 80 mls/hr [id number] IV Last administered on 01/09/17 12:28; Admin Dose 80 MLS/HR; Start 01/05/17 at 14:00 Morphine Sulfate (morphine) 1 mg Q4H PRN IV PAIN LEVEL 7-10 Last administered on 01/08/17 22:19; Admin Dose 1 MG; Start 01/05/17 at 14:00 Lorazepam (Ativan) 2 mg Q1HWA PRN IV AGITATION Last administered on 01/09/17 06:27; Admin Dose 2 MG; Start 01/06/17 at 09:30 Quetiapine Fumarate (Seroquel) 25 mg QHS NGT Last administered on 01/06/17 21: 01; Admin Dose 25 MG; Start 01/06/17 at 21:00; Status Future Hold Metoprolol Tartrate (Lopressor) 25 mg BID PO Last administered on 01/09/17 08: 45; Admin Dose 25 MG; Start 01/08/17 at 21:00 Furosemide (Lasix) 20 mg DAILY IV Last administered on 01/09/17 08:46; Admin Dose 20 MG; Start 01/08/17 at 15:00 Haloperidol (Haldol) 1 mg Q8H PRN IM AGITATION Last administered on 01/09/17 12:23; Admin Dose 1 MG; Start 01/08/17 at 23:30 Quetiapine Fumarate (Seroquel) 50 mg BID PO Last administered on 01/09/17 12: 22; Admin Dose 50 MG; Start 01/09/17 at 11:30 GONZALO MCDONALD MD Jan 09, 2017 17:28
[2017-01-10] VITALS (19 sets, daily range): BP systolic 100–140; BP diastolic 50–74; PULSE 68–97; RESP 17–20
[2017-01-10] MEDS: PANTOPRAZOLE 40 MG INJ IV SCH (05:57)
[2017-01-10] MEDS: metroNIDAZOLE 500 MG/NS (PMX) 100 ML IVPB SCH ×3 (05:57→23:36)
[2017-01-10 06:13] LABS: ADD SCAN DIFF NO
[2017-01-10 06:33] LABS: ALBUMIN 2.8 g/dl (3.3-4.9); MAGNESIUM 1.5 mg/dl (1.7-2.5); PHOSPHORUS 5.5 mg/dl (2.5-4.9); POTASSIUM 3.4 mmol/L (3.5-5.1)
[2017-01-10 06:35] LABS: CREATININE 1.23 mg/dl (0.61-1.24)
[2017-01-10 06:36] LABS: ALBUMIN/GLOBULIN RATIO 0.5; BILIRUBIN,INDIRECT 0.6 mg/dl (0-1.1); BILIRUBIN,TOTAL 0.6 mg/dl (0.2-1.3); TOTAL PROTEIN 8.4 g/dl (6.1-8.1)
[2017-01-10 06:43] LABS: ABNORMAL IP MESSAGE 1; HEMATOCRIT 23.1 % (42.0-52.0); HEMOGLOBIN 7.6 g/dl (14.0-18.0); MEAN CORPUSCULAR HEMOGLOBIN 29.3 pg (29.0-33.0); MEAN CORPUSCULAR HGB CONC 32.9 g/dl (32.0-37.0); MEAN CORPUSCULAR VOLUME 89.2 fl (82.0-101.0); MEAN PLATELET VOLUME 9.3 fl (7.4-10.4); RED BLOOD COUNT 2.59 10^6/ul (4.70-6.10); RED CELL DISTRIBUTION WIDTH 18.1 % (11.5-14.5); WHITE BLOOD COUNT 24.5 10^3/ul (4.8-10.8)
[2017-01-10 06:47] LABS: INR 1.41; PROTIME 17.3 Sec (12.2-14.2); PT RATIO 1.4
[2017-01-10 06:48] LABS: PARTIAL THROMBOPLASTIN TIME 33.6 Sec (25.0-35.0)
[2017-01-10 07:23] LABS: PLATELET COUNT 23 10^3/UL (140-415)
[2017-01-10] MEDS: METOPROLOL 25 MG TAB PO SCH ×2 (08:52→21:00)
[2017-01-10] MEDS: QUETIAPINE 25 MG TAB PO SCH ×2 (08:52→21:12)
[2017-01-10] MEDS: FUROSEMIDE 20 MG INJ IV SCH (08:52)
--- NOTE | 2017-01-10 10:50 | PN ---
Date/Time of Note Date/Time of Note DATE: 01/10/17 TIME: 10:47 Assessment/Plan VTE Prophylaxis VTE Prophylaxis Intervention: other (thrombocytopenia) Lines/Catheters IV [facility]ter Type (from [facility]): PICC Line Central line still needed: Yes Urinary Cath still in place: Yes Reason Cath still needed: other (indicate) (debility) Assessment/Plan Assessment/Plan Plt 23 today, which is still above the baseline of the teens but may still represent transfused platelets. Will follow. No clinical bleeding. Hgb 7.6. He may need transfusion. Will recheck Hgb tomorrow. Subjective 24 Hr Interval Summary Free Text/Dictation Pt is alert and verbal. Exam/Review of Systems Vital Signs Vitals Vital Signs Date Time Temp Pulse Resp B/P Pulse Ox O2 Delivery O2 Flow Rate FiO2 01/10/17 08:05 68 01/10/17 08:00 98.4 18 122/58 95 01/10/17 06:00 Room Air 01/10/17 02:00 2.0 01/08/17 16:39 28 Intake and Output 01/09/17 01/09/17 01/10/17 15:00 23:00 07:00 Intake Total 900 ml 580 ml Output Total 2000 ml 850 ml Balance -1100 ml -270 ml Exam Constitutional: alert Head: normocephalic Eyes: other (pallor) Neck: supple Respiratory: clear to auscultation Cardiovascular: regular rate and rhythm Gastrointestinal: soft Extremities: other (diffuse loss of muscle mass) Results Result Diagram: 01/10/17 0550 01/10/17 0550 Results 24 hrs Laboratory Tests Test 01/10/17 05:50 Activated Partial Thromboplast Time 33.6 Alanine Aminotransferase (ALT/SGPT) 26 Albumin 2.8 L Albumin/Globulin Ratio 0.50 Alkaline Phosphatase 86 Anion Gap 16 Aspartate Amino Transf (AST/SGOT) 49 H Blood Urea Nitrogen 21 H Calcium Level 8.0 L Carbon Dioxide Level 28 Chloride Level 106 Creatinine 1.23 Direct Bilirubin 0.00 Eosinophils # Eosinophils % Globulin 5.60 H Glucose Level 111 Hematocrit 23.1 L Hemoglobin 7.6 L INR International Normalized Ratio 1.41 Indirect Bilirubin 0.6 Lymphocytes # Lymphocytes % Magnesium Level 1.5 L Mean Corpuscular Hemoglobin 29.3 Mean Corpuscular Hemoglobin Concent 32.9 Mean Corpuscular Volume 89.2 Mean Platelet Volume 9.3 # Monocytes # Monocytes % Neutrophils # Neutrophils % Phosphorus Level 5.5 H Platelet Count 23 #*L Potassium Level 3.4 L Prothrombin Time 17.3 H Prothrombin Time Ratio 1.4 Red Blood Count 2.59 L Red Cell Distribution Width 18.1 H Sodium Level 147 H Total Bilirubin 0.6 Total Protein 8.4 H White Blood Count 24.5 H Medications Medications Current Medications Ondansetron HCl (Zofran Inj) 4 mg Q6H PRN IV NAUSEA AND/OR VOMITING; Start 12/23 at 16:30 Nitroglycerin (Nitroglycerin (Sl Tab) 0.4 Mg) 1 tab Q5M PRN SL CHEST PAIN; Start 12/23/16 at 16:30 Acetaminophen (Tylenol Supp) 650 mg Q4H PRN [place] PAIN LEVEL 1-3 OR FEVER Last administered on 12/25/16 01:06; Admin Dose 650 MG; Start 12/23/16 at 16:30 Bisacodyl (Dulcolax) 5 mg DAILY PRN PO CONSTIPATION; Start 12/23/16 at 16:30 Pantoprazole (Protonix Iv) 40 mg DAILY@06 IV Last administered on 01/10/17 05: 57; Admin Dose 40 MG; Start 12/24/16 at 06:00 IV Flush 10 ml 10 ml PRN PRN IV IV PROTOCOL; Start 01/03/17 at 16:30 Metronidazole 100 ml @ 100 mls/hr Q8 IVPB Last administered on 01/10/17 05:57 ; Admin Dose 100 MLS/HR; Start 01/04/17 at 14:00 Dextrose (D5W) 1,000 ml @ 80 mls/hr [id number] IV Last administered on 01/09/17 22:51; Admin Dose 80 MLS/HR; Start 01/05/17 at 14:00 Morphine Sulfate (morphine) 1 mg Q4H PRN IV PAIN LEVEL 7-10 Last administered on 01/08/17 22:19; Admin Dose 1 MG; Start 01/05/17 at 14:00 Lorazepam (Ativan) 2 mg Q1HWA PRN IV AGITATION Last administered on 01/09/17 06:27; Admin Dose 2 MG; Start 01/06/17 at 09:30 Quetiapine Fumarate (Seroquel) 25 mg QHS NGT Last administered on 01/06/17 21: 01; Admin Dose 25 MG; Start 01/06/17 at 21:00; Status Future Hold Metoprolol Tartrate (Lopressor) 25 mg BID PO Last administered on 01/10/17 08: 52; Admin Dose 25 MG; Start 01/08/17 at 21:00 Furosemide (Lasix) 20 mg DAILY IV Last administered on 01/10/17 08:52; Admin Dose 20 MG; Start 01/08/17 at 15:00 Haloperidol (Haldol) 1 mg Q8H PRN IM AGITATION Last administered on 01/09/17 12:23; Admin Dose 1 MG; Start 01/08/17 at 23:30 Quetiapine Fumarate (Seroquel) 50 mg BID PO Last administered on 01/10/17 08: 52; Admin Dose 50 MG; Start 01/09/17 at 11:30 GONZALO MCDONALD MD Jan 10, 2017 10:50
[2017-01-10 11:15] LABS: BASOPHIL # 0.2 10^3/ul (0.0-0.1); EOSINOPHILS # 0.2 10^3/ul (0.0-0.5); LYMPHOCYTES # 5.9 10^3/ul (0.8-2.9); MONOCYTE # 12.3 10^3/ul (0.3-0.9); SMUDGE CELLS% Few
[2017-01-10 11:16] LABS: PLATELET ESTIMATE PLT APPEAR DECREASED
[2017-01-10] MEDS: DEXTROSE 5% 1,000 ML IV SCH ×2 (11:24→13:06)
--- NOTE | 2017-01-10 11:45 | CONS ---
Date/Time of Note Date/Time of Note DATE: 01/10/17 TIME: 11:44 Assessment/Plan Assessment/Plan Additional Assessment/Plan 1. Acute kidney injury, likely secondary to acute tubular necrosis in the setting of sepsis.-improved 2. Acute hypoxemic respiratory failure, multifactorial, secondary to sepsis and secondary to pulmonary congestion s/p extubation 3. Acute pulmonary edema with influenza pneumonia.- now improved 4. History of congestive heart failure with diastolic heart failure. 5. History of chronic obstructive pulmonary disease. 6. History of gastroesophageal reflux disease. 7. History of smoking. 8. 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 9. Hypomagnesemia , Hypokalemia PLAN: making good urine, Creatinine improved to normal Hematuria improving with NS flush of Silveira catheter magnesium sulfate 2 gram IV x 1 dose now , KCl 20meQ IV x 1 dose in addition to IVF fluid KCL Na slightly improved to 147- continue D5 W to 80cc/hour - add 20meQ KCL to this IV fluids IV abx as per ID will follow up this critical care note took greater than 45 min to complete Consultation Date/Type/Reason Admit Date/Time Dec 23, 2016 at 15:37 Initial Consult Date 12/23/16 Type of Consultation: NEPHROLOGY Reason for Consultation BLESSING, hyperkalemia Referring Provider: BEN COURTNEY MD Exam/Review of Systems Vital Signs Vitals Vital Signs Date Time Temp Pulse Resp B/P Pulse Ox O2 Delivery O2 Flow Rate FiO2 01/10/17 10:00 97.9 94 17 140/66 95 01/10/17 06:00 Room Air 01/10/17 02:00 2.0 01/08/17 16:39 28 Intake and Output 01/09/17 01/09/17 01/10/17 15:00 23:00 07:00 Intake Total 900 ml 580 ml Output Total 2000 ml 850 ml Balance -1100 ml -270 ml Exam Gen [place]: alert, agitated CV: S1S2, no M/G/R Lungs: coarse breath sounds throughout all lung masters, diminished at the bases , with end expiratory wheezing Abd: soft, NT/ND, +BS, EXT: 1+ edema, no ecchymosis, no clubbing, FROM, muscle wasting noted + silveira catheter Results Result Diagram: 01/10/17 0550 01/10/17 0550 Results 24 hrs Laboratory Tests Test 01/10/17 05:50 Activated Partial Thromboplast Time 33.6 Alanine Aminotransferase (ALT/SGPT) 26 Albumin 2.8 L Albumin/Globulin Ratio 0.50 Alkaline Phosphatase 86 Anion Gap 16 Aspartate Amino Transf (AST/SGOT) 49 H Band Neutrophils % 4.0 Basophils # 0.2 H Basophils % 1.0 Blood Urea Nitrogen 21 H Calcium Level 8.0 L Carbon Dioxide Level 28 Chloride Level 106 Creatinine 1.23 Differential Comment MANUAL DIFF Direct Bilirubin 0.00 Eosinophils # 0.2 Eosinophils % 1.0 Globulin 5.60 H Glucose Level 111 Hematocrit 23.1 L Hemoglobin 7.6 L INR International Normalized Ratio 1.41 Indirect Bilirubin 0.6 Lymphocytes # 5.9 H Lymphocytes % 24.0 Magnesium Level 1.5 L Mean Corpuscular Hemoglobin 29.3 Mean Corpuscular Hemoglobin Concent 32.9 Mean Corpuscular Volume 89.2 Mean Platelet Volume 9.3 # Metamyelocytes # 1.0 Metamyelocytes % 4.0 H Monocytes # 12.3 H Monocytes % 50.0 H Myelocytes # 1.0 Myelocytes % 4.0 H Neutrophils # 2.0 Neutrophils % 8.0 L Phosphorus Level 5.5 H Platelet Count 23 #*L Platelet Estimate PLT APPEAR DECREASED Potassium Level 3.4 L Promyelocytes # 1.0 Promyelocytes % 4.0 H Prothrombin Time 17.3 H Prothrombin Time Ratio 1.4 Red Blood Count 2.59 L Red Cell Distribution Width 18.1 H Smudge Cells Few Sodium Level 147 H Total Bilirubin 0.6 Total Protein 8.4 H White Blood Count 24.5 H Medications Medications Current Medications Ondansetron HCl (Zofran Inj) 4 mg Q6H PRN IV NAUSEA AND/OR VOMITING; Start 12/23 at 16:30 Nitroglycerin (Nitroglycerin (Sl Tab) 0.4 Mg) 1 tab Q5M PRN SL CHEST PAIN; Start 12/23/16 at 16:30 Acetaminophen (Tylenol Supp) 650 mg Q4H PRN [place] PAIN LEVEL 1-3 OR FEVER Last administered on 12/25/16t 01:06; Admin Dose 650 MG; Start 12/23/16 at 16:30 Bisacodyl (Dulcolax) 5 mg DAILY PRN PO CONSTIPATION; Start 12/23/16 at 16:30 Pantoprazole (Protonix Iv) 40 mg DAILY@06 IV Last administered on 01/10/17 05: 57; Admin Dose 40 MG; Start 12/24/16 at 06:00 IV Flush 10 ml 10 ml PRN PRN IV IV PROTOCOL; Start 01/03/17 at 16:30 Metronidazole 100 ml @ 100 mls/hr Q8 IVPB Last administered on 01/10/17 05:57 ; Admin Dose 100 MLS/HR; Start 01/04/17 at 14:00 Dextrose (D5W) 1,000 ml @ 80 mls/hr [id number] IV Last administered on 01/09/17 22:51; Admin Dose 80 MLS/HR; Start 01/05/17 at 14:00 Morphine Sulfate (morphine) 1 mg Q4H PRN IV PAIN LEVEL 7-10 Last administered on 01/08/17 22:19; Admin Dose 1 MG; Start 01/05/17 at 14:00 Lorazepam (Ativan) 2 mg Q1HWA PRN IV AGITATION Last administered on 01/09/17 06:27; Admin Dose 2 MG; Start 01/06/17 at 09:30 Quetiapine Fumarate (Seroquel) 25 mg QHS NGT Last administered on 01/06/17 21: 01; Admin Dose 25 MG; Start 01/06/17 at 21:00; Status Future Hold Metoprolol Tartrate (Lopressor) 25 mg BID PO Last administered on 01/10/17 08: 52; Admin Dose 25 MG; Start 01/08/17 at 21:00 Furosemide (Lasix) 20 mg DAILY IV Last administered on 01/10/17 08:52; Admin Dose 20 MG; Start 01/08/17 at 15:00 Haloperidol (Haldol) 1 mg Q8H PRN IM AGITATION Last administered on 01/09/17 12:23; Admin Dose 1 MG; Start 01/08/17 at 23:30 Quetiapine Fumarate (Seroquel) 50 mg BID PO Last administered on 01/10/17 08: 52; Admin Dose 50 MG; Start 01/09/17 at 11:30 GILL PEREIRA MD Jan 10, 2017 11:45
[2017-01-10] MEDS ORDERED: MAGNESIUM SULFATE 2 GM/50 ML 50 ML IVPB ONE (12:00)
--- NOTE | 2017-01-10 12:30 | CONS ---
Date/Time of Note Date/Time of Note DATE: 01/10/17 TIME: 12:28 Assessment/Plan Assessment/Plan Additional Assessment/Plan 1. Respiratory failure-improved s/p extubation - stable respiratory status. 2. Cardiomyopathy with decreased left ventricular ejection fraction, last being approximately 45% to 50% by echo 11/2016. No indication for ICD. 3. Hypotension, borderline- better now, will monitor closely. 4. Influenza positive- con't Rx - supportive. 5. History of chronic myelogenous leukemia. 6. Renal failure-slowly improving. 7. Thrombocytopenia, severe. 8. Anemia. 9. Leukocytosis. 10.CHF-systolic and diastolic acute on chronic- con't to keep euvolemic. 11.Positive troponin-likely demand event. Now trended negative Consultation Date/Type/Reason Admit Date/Time Dec 23, 2016 at 15:37 Initial Consult Date 12/24/16 Type of Consultation: NEPHROLOGY Referring Provider: BEN COURTNEY MD 24 HR Interval Summary Free Text/Dictation No acute change. BP stable - no significant ectopy on tele. Con't med rx . ROS: No fever, no chills, no nausea, no vomiting, no diarrhea/constipation No recent weight changes No chest pain, no PND, no orthopnea No dizziness, blurred vision No thirst, no heat or cold intolerance (+ SOB) Exam/Review of Systems Vital Signs Vitals Vital Signs Date Time Temp Pulse Resp B/P Pulse Ox O2 Delivery O2 Flow Rate FiO2 01/10/17 12:07 87 01/10/17 11:50 98.4 18 134/62 95 01/10/17 06:00 Room Air 01/10/17 02:00 2.0 01/08/17 16:39 28 Intake and Output 01/09/17 01/09/17 01/10/17 15:00 23:00 07:00 Intake Total 900 ml 580 ml Output Total 2000 ml 850 ml Balance -1100 ml -270 ml Exam General: WN/WD/NAD, AOx 1-2 HEENT: Unicetric/atraumatic/EOMI (does not follow commands) NECK: JVD elevated, no thyromegaly Lymph: no lymphadenopathy HEART: regular with no S3, II/ systolic murmur at apex LUNGS: Coarse sounds ABD: soft, NT, ND, +BS : Intact Neuro: non focal SKIN: chronic changes EXT: trace edema Results Result Diagram: 01/10/17 0550 01/10/17 0550 Results 24 hrs Laboratory Tests Test 01/10/17 05:50 Activated Partial Thromboplast Time 33.6 Alanine Aminotransferase (ALT/SGPT) 26 Albumin 2.8 L Albumin/Globulin Ratio 0.50 Alkaline Phosphatase 86 Anion Gap 16 Aspartate Amino Transf (AST/SGOT) 49 H Band Neutrophils % 4.0 Basophils # 0.2 H Basophils % 1.0 Blood Urea Nitrogen 21 H Calcium Level 8.0 L Carbon Dioxide Level 28 Chloride Level 106 Creatinine 1.23 Differential Comment MANUAL DIFF Direct Bilirubin 0.00 Eosinophils # 0.2 Eosinophils % 1.0 Globulin 5.60 H Glucose Level 111 Hematocrit 23.1 L Hemoglobin 7.6 L INR International Normalized Ratio 1.41 Indirect Bilirubin 0.6 Lymphocytes # 5.9 H Lymphocytes % 24.0 Magnesium Level 1.5 L Mean Corpuscular Hemoglobin 29.3 Mean Corpuscular Hemoglobin Concent 32.9 Mean Corpuscular Volume 89.2 Mean Platelet Volume 9.3 # Metamyelocytes # 1.0 Metamyelocytes % 4.0 H Monocytes # 12.3 H Monocytes % 50.0 H Myelocytes # 1.0 Myelocytes % 4.0 H Neutrophils # 2.0 Neutrophils % 8.0 L Phosphorus Level 5.5 H Platelet Count 23 #*L Platelet Estimate PLT APPEAR DECREASED Potassium Level 3.4 L Promyelocytes # 1.0 Promyelocytes % 4.0 H Prothrombin Time 17.3 H Prothrombin Time Ratio 1.4 Red Blood Count 2.59 L Red Cell Distribution Width 18.1 H Smudge Cells Few Sodium Level 147 H Total Bilirubin 0.6 Total Protein 8.4 H White Blood Count 24.5 H Medications Medications Current Medications Ondansetron HCl (Zofran Inj) 4 mg Q6H PRN IV NAUSEA AND/OR VOMITING; Start 12/23 at 16:30 Nitroglycerin (Nitroglycerin (Sl Tab) 0.4 Mg) 1 tab Q5M PRN SL CHEST PAIN; Start 12/23/16 at 16:30 Acetaminophen (Tylenol Supp) 650 mg Q4H PRN [place] PAIN LEVEL 1-3 OR FEVER Last administered on 12/25/16t 01:06; Admin Dose 650 MG; Start 12/23/16 at 16:30 Bisacodyl (Dulcolax) 5 mg DAILY PRN PO CONSTIPATION; Start 12/23/16 at 16:30 Pantoprazole (Protonix Iv) 40 mg DAILY@06 IV Last administered on 01/10/17 05: 57; Admin Dose 40 MG; Start 12/24/16 at 06:00 IV Flush 10 ml 10 ml PRN PRN IV IV PROTOCOL; Start 01/03/17 at 16:30 Metronidazole 100 ml @ 100 mls/hr Q8 IVPB Last administered on 01/10/17 05:57 ; Admin Dose 100 MLS/HR; Start 01/04/17 at 14:00 Dextrose (D5W) 1,000 ml @ 80 mls/hr [id number] IV Last administered on 01/09/17 22:51; Admin Dose 80 MLS/HR; Start 01/05/17 at 14:00 Morphine Sulfate (morphine) 1 mg Q4H PRN IV PAIN LEVEL 7-10 Last administered on 01/08/17 22:19; Admin Dose 1 MG; Start 01/05/17 at 14:00 Lorazepam (Ativan) 2 mg Q1HWA PRN IV AGITATION Last administered on 01/09/17 06:27; Admin Dose 2 MG; Start 01/06/17 at 09:30 Quetiapine Fumarate (Seroquel) 25 mg QHS NGT Last administered on 01/06/17 21: 01; Admin Dose 25 MG; Start 01/06/17 at 21:00; Status Future Hold Metoprolol Tartrate (Lopressor) 25 mg BID PO Last administered on 01/10/17 08: 52; Admin Dose 25 MG; Start 01/08/17 at 21:00 Furosemide (Lasix) 20 mg DAILY IV Last administered on 01/10/17 08:52; Admin Dose 20 MG; Start 01/08/17 at 15:00 Haloperidol (Haldol) 1 mg Q8H PRN IM AGITATION Last administered on 01/09/17 12:23; Admin Dose 1 MG; Start 01/08/17 at 23:30 Quetiapine Fumarate 50 mg 50 mg BID PO Last administered on 01/10/17 08:52; Admin Dose 50 MG; Start 01/09/17 at 11:30 Potassium Chloride 20 meq/ Sodium Chloride 110 ml @ 55 mls/hr ONCE ONCE IVPB ; Start 01/10/17 at 13:00; Stop 01/10/17 at 14:59 Magnesium Sulfate (Magnesium Sulfate 2 Gm/50 ml) 50 ml @ 25 mls/hr ONCE ONCE IVPB ; Start 01/10/17 at 12:00; Stop 01/10/17 at 13:59 GONZALO MURCIA MD Jan 10, 2017 12:30
[2017-01-10] MEDS ORDERED: POTASSIUM CHLORIDE 20 MEQ in SOD CHLORIDE 0.9% 100 ML IVPB ONE (13:00)
--- NOTE | 2017-01-10 13:27 | CONS ---
Date/Time of Note Date/Time of Note DATE: 01/10/17 TIME: 13:25 Assessment/Plan Assessment/Plan Additional Assessment/Plan Assessment and recommendations; 1. Patient admitted with severe bilateral pneumonia no successfully intubated several days ago transferred to telemetry medicine unit. 2. Marked improvement in mental status. 3. History of CML with severe thrombocytopenia. Patient's platelet count again is trending downward. However there is no overt bleeding. The current treatment. Patient awaiting swallow evaluation. Consultation Date/Type/Reason Admit Date/Time Dec 23, 2016 at 15:37 Initial Consult Date 12/24/16 Type of Consultation: Pulmonary Referring Provider: BEN COURTNEY MD 24 HR Interval Summary Free Text/Dictation Patient condition is markedly improved. He is awake alert able to talk. Denies any shortness of breath any chest pain. General examination; elderly male, currently in no distress. Awake and alert. Exam/Review of Systems Vital Signs Vitals Vital Signs Date Time Temp Pulse Resp B/P Pulse Ox O2 Delivery O2 Flow Rate FiO2 01/10/17 12:07 87 01/10/17 11:50 98.4 18 134/62 95 01/10/17 06:00 Room Air 01/10/17 02:00 2.0 01/08/17 16:39 28 Intake and Output 01/09/17 01/09/17 01/10/17 15:00 23:00 07:00 Intake Total 900 ml 580 ml Output Total 2000 ml 850 ml Balance -1100 ml -270 ml Exam H EENT examination; supple neck, no JVD. No lymphadenopathy. Pupils are small bilaterally. No thyromegaly. Pharynx is clear. Chest examination; diminished but clear breath sounds bilaterally. S1-S2 audible, no murmurs. Regular rhythm. Abdomen examination; soft, nondistended. No organomegaly. Bowel sounds audible. Extremity examination; no peripheral edema. [employer] examination; patient is awake alert follows command moves all 4 extremities. Able to talk as well. Results Result Diagram: 01/10/17 0550 01/10/17 0550 Results 24 hrs Laboratory Tests Test 01/10/17 05:50 Activated Partial Thromboplast Time 33.6 Alanine Aminotransferase (ALT/SGPT) 26 Albumin 2.8 L Albumin/Globulin Ratio 0.50 Alkaline Phosphatase 86 Anion Gap 16 Aspartate Amino Transf (AST/SGOT) 49 H Band Neutrophils % 4.0 Basophils # 0.2 H Basophils % 1.0 Blood Urea Nitrogen 21 H Calcium Level 8.0 L Carbon Dioxide Level 28 Chloride Level 106 Creatinine 1.23 Differential Comment MANUAL DIFF Direct Bilirubin 0.00 Eosinophils # 0.2 Eosinophils % 1.0 Globulin 5.60 H Glucose Level 111 Hematocrit 23.1 L Hemoglobin 7.6 L INR International Normalized Ratio 1.41 Indirect Bilirubin 0.6 Lymphocytes # 5.9 H Lymphocytes % 24.0 Magnesium Level 1.5 L Mean Corpuscular Hemoglobin 29.3 Mean Corpuscular Hemoglobin Concent 32.9 Mean Corpuscular Volume 89.2 Mean Platelet Volume 9.3 # Metamyelocytes # 1.0 Metamyelocytes % 4.0 H Monocytes # 12.3 H Monocytes % 50.0 H Myelocytes # 1.0 Myelocytes % 4.0 H Neutrophils # 2.0 Neutrophils % 8.0 L Phosphorus Level 5.5 H Platelet Count 23 #*L Platelet Estimate PLT APPEAR DECREASED Potassium Level 3.4 L Promyelocytes # 1.0 Promyelocytes % 4.0 H Prothrombin Time 17.3 H Prothrombin Time Ratio 1.4 Red Blood Count 2.59 L Red Cell Distribution Width 18.1 H Smudge Cells Few Sodium Level 147 H Total Bilirubin 0.6 Total Protein 8.4 H White Blood Count 24.5 H Medications Medications Current Medications Ondansetron HCl (Zofran Inj) 4 mg Q6H PRN IV NAUSEA AND/OR VOMITING; Start 12/23 at 16:30 Nitroglycerin (Nitroglycerin (Sl Tab) 0.4 Mg) 1 tab Q5M PRN SL CHEST PAIN; Start 12/23/16 at 16:30 Acetaminophen (Tylenol Supp) 650 mg Q4H PRN [place] PAIN LEVEL 1-3 OR FEVER Last administered on 12/25/16 01:06; Admin Dose 650 MG; Start 12/23/16 at 16:30 Bisacodyl (Dulcolax) 5 mg DAILY PRN PO CONSTIPATION; Start 12/23/16 at 16:30 Pantoprazole (Protonix Iv) 40 mg DAILY@06 IV Last administered on 01/10/17 05: 57; Admin Dose 40 MG; Start 12/24/16 at 06:00 IV Flush 10 ml 10 ml PRN PRN IV IV PROTOCOL; Start 01/03/17 at 16:30 Metronidazole 100 ml @ 100 mls/hr Q8 IVPB Last administered on 01/10/17 05:57 ; Admin Dose 100 MLS/HR; Start 01/04/17 at 14:00 Dextrose (D5W) 1,000 ml @ 80 mls/hr [id number] IV Last administered on 01/10/17 13:06; Admin Dose 80 MLS/HR; Start 01/05/17 at 14:00 Morphine Sulfate (morphine) 1 mg Q4H PRN IV PAIN LEVEL 7-10 Last administered on 01/08/17 22:19; Admin Dose 1 MG; Start 01/05/17 at 14:00 Lorazepam (Ativan) 2 mg Q1HWA PRN IV AGITATION Last administered on 01/09/17 06:27; Admin Dose 2 MG; Start 01/06/17 at 09:30 Quetiapine Fumarate (Seroquel) 25 mg QHS NGT Last administered on 01/06/17 21: 01; Admin Dose 25 MG; Start 01/06/17 at 21:00; Status Future Hold Metoprolol Tartrate (Lopressor) 25 mg BID PO Last administered on 01/10/17 08: 52; Admin Dose 25 MG; Start 01/08/17 at 21:00 Furosemide (Lasix) 20 mg DAILY IV Last administered on 01/10/17 08:52; Admin Dose 20 MG; Start 01/08/17 at 15:00 Haloperidol (Haldol) 1 mg Q8H PRN IM AGITATION Last administered on 01/09/17 12:23; Admin Dose 1 MG; Start 01/08/17 at 23:30 Quetiapine Fumarate 50 mg 50 mg BID PO Last administered on 01/10/17 08:52; Admin Dose 50 MG; Start 01/09/17 at 11:30 Potassium Chloride 20 meq/ Sodium Chloride 110 ml @ 55 mls/hr ONCE ONCE IVPB ; Start 01/10/17 at 13:00; Stop 01/10/17 at 14:59 Magnesium Sulfate (Magnesium Sulfate 2 Gm/50 ml) 50 ml @ 25 mls/hr ONCE ONCE IVPB Last administered on 01/10/17 12:49; Admin Dose 25 MLS/HR; Start at 12:00; Stop 01/10/17 at 13:59 QARNI,MYESHA Jan 10, 2017 13:27
--- NOTE | 2017-01-10 13:50 | PN ---
DATE: 01/10/2017 INFECTIOUS DISEASE PROGRESS NOTE SUBJECTIVE: No acute events overnight. The patient is alert, denies pain, looks comfortable, no fe vers. He is still n.p.o. status. LABORATORY DATA: WBC today 24.5, platelets 23, BUN 21, creatinine 1.23. INDWELLINGS: PICC line. ANTIMICROBIALS: Patient is off antibiotics. PHYSICAL EXAMINATION: GENERAL: Fragile, elderly man in no distress. HEENT: Head atraumatic, normocephalic. Sclerae anicteric. Buccal mucosa dry. NECK: Supple. CHEST: Rise symmetrical. Breath sounds diminished at the bases. HEART: S1, S2. ABDOMEN: Soft, bowel sounds present. EXTREMITIES: Without cyanosis. Multiple ecchymotic areas. ASSESSMENT: 1. Status post septic shock, urinary tract infection, pneumonia. 2. Status post influenza A virus. 3. Myelodysplasia with chronic myelogenous leukemia. 4. Leukocytosis with anemia and thrombocytopenia secondary to above. 5. Resolving encephalopathy. PLAN: The patient remains stable off antibiotics. Continue observing. Follow recommendations of gwen porter. Dictated By: DARLENE CARTAGENA GRAIN D[employer]ER OPERATOR for CORRINA PEÑA MD NI/NTS Conf#: [id number] DID#: [id number]
--- NOTE | 2017-01-10 17:22 | PN ---
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 PROBLEMS: * Encephalopathy (Acute): improving per family patient was alert / oriented and functioning prior to admission / Still requiring restraints * Sepsis - 2/2 to Influenza / PNA : resolved * Influenza A: s/p treatment * HCAP : s/p abx * Acute Hypoxemic Resp failure 2/2 PNA and CHF: Improved / now extubated and stable on NC * CML / MDS Leucocytosis now improving Pulmonary nodules ?mets * Severe Anemia 2/2 MDS Has had 9units PRBCs so far * Severe Platelet refractory thrombocytopenia Has also had 5 units platelets so far Nose bleeds have resolved * Acute Renal failure Resolved / Cr WNL x 2 days * CHF-systolic and diastolic acute on chronic : compensated * NSTEMI type 2 :med mgt * COPD : stable * Dysphagia 2/2 encephalopathy * Cardiomyopathy with decreased left ventricular ejection fraction, last being approximately 45% to 50% by echo 11/2016. * Hematuria :likely 2/2 Silveira trauma from patient pulling +Thrombocytopenia PLAN: Platelet transfusion for hematuria / Urology consult Hemoglobin drop noted likely 2/2 hematuria / no transfusion for now Continue seroquel / Neurology consult for confusion Patient remains off all abx Optimize electrolytes Cleared for Puree diet by ST Continue supportive care Prognosis: Guarded PROPHYLAXIS: IV PPI / SCDs Subjective 24 Hr Interval Summary Free Text/Dictation * remains confused, requiring sitter * Still Having hematuria Exam/Review of Systems Vital Signs Vitals Vital Signs Date Time Temp Pulse Resp B/P Pulse Ox O2 Delivery O2 Flow Rate FiO2 01/10/17 16:00 97.9 74 18 108/54 95 01/10/17 06:00 Room Air 01/10/17 02:00 2.0 01/08/17 16:39 28 Intake and Output 01/09/17 01/09/17 01/10/17 15:00 23:00 07:00 Intake Total 900 ml 580 ml Output Total 2000 ml 850 ml Balance -1100 ml -270 ml Exam Constitutional: alert, frail, No oriented Head: normocephalic Eyes: PERRL Respiratory: diminished breath sounds Cardiovascular: regular rate and rhythm, No murmurs/extra sounds Gastrointestinal: bowel sounds, non-tender, soft Genitourinary - Male: other (silveira draining bloody urine) Neurological: confused, other (restraints) Results Result Diagram: 01/10/17 0550 01/10/17 0550 Results 24 hrs Laboratory Tests Test 01/10/17 05:50 Activated Partial Thromboplast Time 33.6 Alanine Aminotransferase (ALT/SGPT) 26 Albumin 2.8 L Albumin/Globulin Ratio 0.50 Alkaline Phosphatase 86 Anion Gap 16 Aspartate Amino Transf (AST/SGOT) 49 H Band Neutrophils % 4.0 Basophils # 0.2 H Basophils % 1.0 Blood Urea Nitrogen 21 H Calcium Level 8.0 L Carbon Dioxide Level 28 Chloride Level 106 Creatinine 1.23 Differential Comment MANUAL DIFF Direct Bilirubin 0.00 Eosinophils # 0.2 Eosinophils % 1.0 Globulin 5.60 H Glucose Level 111 Hematocrit 23.1 L Hemoglobin 7.6 L INR International Normalized Ratio 1.41 Indirect Bilirubin 0.6 Lymphocytes # 5.9 H Lymphocytes % 24.0 Magnesium Level 1.5 L Mean Corpuscular Hemoglobin 29.3 Mean Corpuscular Hemoglobin Concent 32.9 Mean Corpuscular Volume 89.2 Mean Platelet Volume 9.3 # Metamyelocytes # 1.0 Metamyelocytes % 4.0 H Monocytes # 12.3 H Monocytes % 50.0 H Myelocytes # 1.0 Myelocytes % 4.0 H Neutrophils # 2.0 Neutrophils % 8.0 L Phosphorus Level 5.5 H Platelet Count 23 #*L Platelet Estimate PLT APPEAR DECREASED Potassium Level 3.4 L Promyelocytes # 1.0 Promyelocytes % 4.0 H Prothrombin Time 17.3 H Prothrombin Time Ratio 1.4 Red Blood Count 2.59 L Red Cell Distribution Width 18.1 H Smudge Cells Few Sodium Level 147 H Total Bilirubin 0.6 Total Protein 8.4 H White Blood Count 24.5 H Medications Medications Current Medications Ondansetron HCl (Zofran Inj) 4 mg Q6H PRN IV NAUSEA AND/OR VOMITING; Start 12/23 at 16:30 Nitroglycerin (Nitroglycerin (Sl Tab) 0.4 Mg) 1 tab Q5M PRN SL CHEST PAIN; Start 12/23/16 at 16:30 Acetaminophen (Tylenol Supp) 650 mg Q4H PRN [place] PAIN LEVEL 1-3 OR FEVER Last administered on 12/25/16 01:06; Admin Dose 650 MG; Start 12/23/16 at 16:30 Bisacodyl (Dulcolax) 5 mg DAILY PRN PO CONSTIPATION; Start 12/23/16 at 16:30 Pantoprazole (Protonix Iv) 40 mg DAILY@06 IV Last administered on 01/10/17 05: 57; Admin Dose 40 MG; Start 12/24/16 at 06:00 IV Flush 10 ml 10 ml PRN PRN IV IV PROTOCOL; Start 01/03/17 at 16:30 Metronidazole 100 ml @ 100 mls/hr Q8 IVPB Last administered on 01/10/17 13:53 ; Admin Dose 100 MLS/HR; Start 01/04/17 at 14:00 Dextrose (D5W) 1,000 ml @ 80 mls/hr [id number] IV Last administered on 01/10/17 13:06; Admin Dose 80 MLS/HR; Start 01/05/17 at 14:00 Morphine Sulfate (morphine) 1 mg Q4H PRN IV PAIN LEVEL 7-10 Last administered on 01/08/17 22:19; Admin Dose 1 MG; Start 01/05/17 at 14:00 Lorazepam (Ativan) 2 mg Q1HWA PRN IV AGITATION Last administered on 01/09/17 06:27; Admin Dose 2 MG; Start 01/06/17 at 09:30 Quetiapine Fumarate (Seroquel) 25 mg QHS NGT Last administered on 01/06/17 21: 01; Admin Dose 25 MG; Start 01/06/17 at 21:00; Status Future Hold Metoprolol Tartrate (Lopressor) 25 mg BID PO Last administered on 01/10/17 08: 52; Admin Dose 25 MG; Start 01/08/17 at 21:00 Furosemide (Lasix) 20 mg DAILY IV Last administered on 01/10/17 08:52; Admin Dose 20 MG; Start 01/08/17 at 15:00 Haloperidol (Haldol) 1 mg Q8H PRN IM AGITATION Last administered on 01/09/17 12:23; Admin Dose 1 MG; Start 01/08/17 at 23:30 Quetiapine Fumarate (Seroquel) 50 mg BID PO Last administered on 01/10/17 08: 52; Admin Dose 50 MG; Start 01/09/17 at 11:[address] Note: Patient reassessed for swallow to determine suitability for PO diet. Patient appears primarily edentulous. Patient provided with puree, mechanical soft, and thin liquid by cup and straw. No overt s/sx of aspiration with puree, timely swallow with appropriate laryngeal elevation. With mechanical soft, patient had difficulty chewing secondary to lack of teeth and required multiple swallows to clear. ST to recommend puree/thin liquid diet; NO STRAW. Patient remains high risk for aspiration. ST to follow up for diet tolerance, may need MBSS if patient has continued difficulty with swallowing. ST discussed with patient and VENTURA Acuna. EZE LYLES Jan 10, 2017 17:18
--- NOTE | 2017-01-10 18:43 | CONS ---
DATE OF ADMISSION: 12/23/2016 DATE OF CONSULTATION: 01/10/2017 REQUESTING PHYSICIAN: EZE LYLES MD. REASON FOR CONSULTATION: Gross hematuria. HISTORY OF PRESENT ILLNESS: This is a 71-year-old male who was admitted on 12/23/2016 because of sh ortness of breath for about 4 days prior to the admission and patient does have a history of chronic myelocytic leukemia and on chemotherapy and myelodysplastic syndrome and gastroesophageal reflux di sease, COPD, anemia of chronic disease and he has had a nosebleed. He was given platelet transfusio ns. He was noted to have hematuria yesterday and he had a Leyva catheter. He may have pulled on it . He hand irrigated the catheter and he is still having hematuria. The patient also does have thro mbocytopenia with his platelet count being very low. Therefore, a urological consultation was reque sted. The patient is being monitored with a sitter at his bedside because he pulled his IV. Theref ore, they are watching him. PAST MEDICAL HISTORY: Again, there is a history of anemia, COPD, CML, MDS and GERD. PAST SURGICAL HISTORY: Includes a history of bowel resection. SOCIAL HISTORY: He does not drink alcohol and he was still smoking and there is no history of drug abuse. Upon admission, he was in severe respiratory distress. He does have also a history of jaelyn estive heart failure with diastolic heart failure. The patient also had acute on chronic renal fail ure and he has had also hypoxemia and respiratory failure. The patient has had NSTEMI type 2, influ jeremias A and encephalopathy. ALLERGIES HAS NO KNOWN DRUG ALLERGIES. PHYSICAL EXAMINATION: GENERAL: Reveals an elderly male. He weighs 65.8 kg. He is 72 inches tall. VITAL SIGNS: Show a temperature of 97.9, pulse 74, respiration 18, blood pressure 108/54. HEAD AND NECK: Unremarkable. He looks pale. ABDOMEN: Soft. There is no tenderness. EXTERNAL GENITALIA: He does have an indwelling Leyva catheter that is draining dark blood. EXTREMITIES: Lower extremities no edema. LABORATORY DATA: CBC shows a white count of 24.5, hemoglobin 7.6, hematocrit 23.1, platelet count i s 23,000. The BUN is 21, creatinine 1.23, sodium 147, potassium 3.4, chloride 106, CO2 of 28. The PT is 17.3, INR 1.41, PTT 33.6. Urine culture done on the , 3 days ago, no growth after 48 hour s. IMPRESSION: Gross hematuria, probably he pulled on the catheter and since his platelets are low, he could be also be bleeding from his kidneys, but most likely it looks from the bladder since there w ere clots inside his bladder. PLAN: I went ahead and hand irrigated the Leyva. I pushed the catheter back into the bladder with the balloon inflated and then I hand irrigated the Leyva catheter and removed all the clots out of h is bladder. The urine at the end from the irrigation was pinkish rather than dark old blood. We sh all keep the Leyva catheter in and since she has a sitter watching him, hopefully he does not pull o n it and as his platelets improve and he is hydrated and diuresed, then the urine will gradually nora ar up. If there is a need to put a 3-way Leyva catheter, I certainly will do that. I tried to mini delta any trauma to him by catheterization, so at the present time, we shall leave the catheter that he has in and will watch him closely. Dictated By: WILFRID ROBERTS/RADHA Conf#: [id number] DID#: [id number]
[2017-01-11] VITALS (13 sets, daily range): BP systolic 89–121; BP diastolic 56–90; PULSE 72–96; RESP 18–20
[2017-01-11] MEDS: DEXTROSE 5% 1,000 ML IV SCH (04:03)
[2017-01-11] MEDS: PANTOPRAZOLE 40 MG INJ IV SCH (05:47)
[2017-01-11] MEDS: metroNIDAZOLE 500 MG/NS (PMX) 100 ML IVPB SCH ×3 (05:47→21:41)
[2017-01-11 07:11] LABS: ADD SCAN DIFF NO
[2017-01-11 07:23] LABS: ABNORMAL IP MESSAGE 1; HEMATOCRIT 21.1 % (42.0-52.0); MEAN CORPUSCULAR HEMOGLOBIN 28.1 pg (29.0-33.0); MEAN CORPUSCULAR HGB CONC 31.3 g/dl (32.0-37.0); MEAN CORPUSCULAR VOLUME 89.8 fl (82.0-101.0); MEAN PLATELET VOLUME 11.3 fl (7.4-10.4); PLATELET COUNT 37 10^3/UL (140-415); RED BLOOD COUNT 2.35 10^6/ul (4.70-6.10); RED CELL DISTRIBUTION WIDTH 18.4 % (11.5-14.5); WHITE BLOOD COUNT 16.3 10^3/ul (4.8-10.8)
[2017-01-11 07:27] LABS: INR 1.47; PARTIAL THROMBOPLASTIN TIME 35.2 Sec (25.0-35.0); PROTIME 17.9 Sec (12.2-14.2); PT RATIO 1.4
[2017-01-11 07:32] LABS: ALBUMIN 2.4 g/dl (3.3-4.9)
[2017-01-11 07:35] LABS: ALBUMIN/GLOBULIN RATIO 0.52; BILIRUBIN,INDIRECT 0.5 mg/dl (0-1.1); BILIRUBIN,TOTAL 0.5 mg/dl (0.2-1.3); CREATININE 1.59 mg/dl (0.61-1.24)
[2017-01-11 07:35] LABS: HEMOGLOBIN 6.6 g/dl (14.0-18.0)
[2017-01-11 07:36] LABS: CALCIUM 7.6 mg/dl (8.4-10.2)
[2017-01-11] MEDS: METOPROLOL 25 MG TAB PO SCH ×2 (08:23→20:18)
[2017-01-11] MEDS: QUETIAPINE 25 MG TAB PO SCH ×2 (08:25→20:18)
[2017-01-11] MEDS ORDERED: SOD CHLORIDE 0.9% 250 ML IV* ONE (08:29)
[2017-01-11] MEDS ORDERED: ACETAMINOPHEN 325 MG TAB PO SCH (08:30)
--- NOTE | 2017-01-11 08:39 | CONS ---
Date/Time of Note Date/Time of Note DATE: 01/11/17 TIME: 08:35 Consult Date/Type/Reason Admit Date/Time Dec 23, 2016 at 15:37 Initial Consult Date 12/24/16 Type of Consultation: Pulmonary Ordering Provider: BEN COURTNEY MD Subjective Pt has ongoing hematuria after manipulating Leyva. Seen by urology who hand irrigated the Leyva until fluid pink. Urine today appears red. Pt denies pain. Hb dropped to less than 7gm/dl. Objective Vital Signs Date Time Temp Pulse Resp B/P Pulse Ox O2 Delivery O2 Flow Rate FiO2 01/11/17 08:08 98.5 74 20 95/90 98 01/11/17 04:00 Room Air 01/10/17 20:00 2.0 01/08/17 16:39 28 Intake and Output 01/10/17 01/10/17 01/11/17 15:00 23:00 07:00 Intake Total 250 ml 1000 ml 920 ml Output Total 800 ml Balance 250 ml 1000 ml 120 ml Results/Medications Result Diagram: 01/11/17 0615 01/11/17 0515 Results 24 hrs Laboratory Tests Test 01/11/17 05:15 01/11/17 06:15 Alanine Aminotransferase (ALT/SGPT) 21 Albumin 2.4 L Albumin/Globulin Ratio 0.52 Alkaline Phosphatase 67 Anion Gap 14 Aspartate Amino Transf (AST/SGOT) 30 Blood Urea Nitrogen 21 H Calcium Level 7.6 L Carbon Dioxide Level 28 Chloride Level 104 Creatinine 1.59 H Direct Bilirubin 0.00 Globulin 4.60 H Glucose Level 120 Indirect Bilirubin 0.5 Potassium Level 3.0 L Sodium Level 143 Total Bilirubin 0.5 Total Protein 7.0 # Activated Partial Thromboplast Time 35.2 H Hematocrit 21.1 L Hemoglobin 6.6 *L INR International Normalized Ratio 1.47 Mean Corpuscular Hemoglobin 28.1 L Mean Corpuscular Hemoglobin Concent 31.3 L Mean Corpuscular Volume 89.8 Mean Platelet Volume 11.3 #H Platelet Count 37 #L Prothrombin Time 17.9 H Prothrombin Time Ratio 1.4 Red Blood Count 2.35 L Red Cell Distribution Width 18.4 H White Blood Count 16.3 #H Medications Current Medications Ondansetron HCl (Zofran Inj) 4 mg Q6H PRN IV NAUSEA AND/OR VOMITING; Start 12/23 at 16:30 Nitroglycerin (Nitroglycerin (Sl Tab) 0.4 Mg) 1 tab Q5M PRN SL CHEST PAIN; Start 12/23/16 at 16:30 Acetaminophen (Tylenol Supp) 650 mg Q4H PRN [place] PAIN LEVEL 1-3 OR FEVER Last administered on 12/25/16 01:06; Admin Dose 650 MG; Start 12/23/16 at 16:30 Bisacodyl (Dulcolax) 5 mg DAILY PRN PO CONSTIPATION; Start 12/23/16 at 16:30 Pantoprazole (Protonix Iv) 40 mg DAILY@06 IV Last administered on 01/11/17 05: 47; Admin Dose 40 MG; Start 12/24/16 at 06:00 IV Flush 10 ml 10 ml PRN PRN IV IV PROTOCOL; Start 01/03/17 at 16:30 Metronidazole 100 ml @ 100 mls/hr Q8 IVPB Last administered on 01/11/17 05:47 ; Admin Dose 100 MLS/HR; Start 01/04/17 at 14:00 Dextrose (D5W) 1,000 ml @ 80 mls/hr [id number] IV Last administered on 01/11/17 04:03; Admin Dose 80 MLS/HR; Start 01/05/17 at 14:00 Morphine Sulfate (morphine) 1 mg Q4H PRN IV PAIN LEVEL 7-10 Last administered on 01/08/17 22:19; Admin Dose 1 MG; Start 01/05/17 at 14:00 Lorazepam (Ativan) 2 mg Q1HWA PRN IV AGITATION Last administered on 01/09/17 06:27; Admin Dose 2 MG; Start 01/06/17 at 09:30 Quetiapine Fumarate (Seroquel) 25 mg QHS NGT Last administered on 01/06/17 21: 01; Admin Dose 25 MG; Start 01/06/17 at 21:00; Status Future Hold Metoprolol Tartrate (Lopressor) 25 mg BID PO Last administered on 01/10/17 08: 52; Admin Dose 25 MG; Start 01/08/17 at 21:00 Furosemide (Lasix) 20 mg DAILY IV Last administered on 01/10/17 08:52; Admin Dose 20 MG; Start 01/08/17 at 15:00 Haloperidol (Haldol) 1 mg Q8H PRN IM AGITATION Last administered on 01/09/17 12:23; Admin Dose 1 MG; Start 01/08/17 at 23:30 Quetiapine Fumarate (Seroquel) 50 mg BID PO Last administered on 01/11/17 08: 25; Admin Dose 50 MG; Start 01/09/17 at 11:30 Assessment/Plan Problems: (1) Respiratory failure (2) Pneumonia (3) CMML (chronic myelomonocytic leukemia) (4) Influenza A Additional Assessment/Plan 1. Anemia: secondary to MDS (CMML subtype) complicated by hematuria caused by manipulating the Leyva. Hb 6.6g/dl. -Will tx 2upRBC today with Lasix after second unit. 2. Thrombocytopenia: secondary to MDS and bleeding. -Will tx 1u of plts due to active hematuria 3. ARF: likely due to hematuria. -Will check renal ultrasound. 4. Hematuria: recommend urology to placed [address] way Leyva to irrigate bladder until clear 5. Influenza infection: resolving Mendy Campbell MD Hematology MENDY CAMPBELL Jan 11, 2017 08:39
[2017-01-11] MEDS: FUROSEMIDE 20 MG INJ IV SCH (09:00)
--- NOTE | 2017-01-11 10:11 | RADRPT ---
PROCEDURE: US Retroperitoneum. CLINICAL INDICATION: elevated creatinine. TECHNIQUE: Sonographic evaluation of the kidneys and bladder was performed using a curved array tr ansducer. COMPARISON: None. FINDINGS: Right kidney measures 11.6 cm in length. Left kidney measures 14.5 cm in length. There is diffuse bilateral cortical thinning with increased cortical echogenicity. There is trace l eft renal pelviectasis without cecille hydronephrosis. Leyva catheter in place within a decompressed urinary bladder. Incidental splenomegaly. IMPRESSION: 1. Morphologic changes in the kidneys reflecting medical renal disease. Minimal left pelviectasis without cecille hydronephrosis. RPTAT: [facility] .Mitesh Chinchilla MD, MD Date Time Electronically viewed and signed by .Mitesh Chinchilla MD, MD on 01/11/2017 10:11 .C/
[2017-01-11 10:27] LABS: EOSINOPHILS # 0.3 10^3/ul (0.0-0.5); LYMPHOCYTES # 2.8 10^3/ul (0.8-2.9); MYELOCYTES # 1.5; NEUTROPHIL # 1.3 10^3/ul (1.6-7.5)
[2017-01-11 10:28] LABS: POLYCHROMASIA 1+
[2017-01-11 10:29] LABS: ANISOCYTOSIS 1+; PLATELET ESTIMATE PLT APPEAR DECREASED
[2017-01-11] MEDS ORDERED: D5W + KCL 20 MEQ 1,000 ML IV SCH (11:00)
--- NOTE | 2017-01-11 11:03 | PN ---
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 PROBLEMS: * Encephalopathy (Acute): per family patient was alert / oriented and functioning prior to admission / Still requiring restraints / this is likely new baseline * Sepsis - 2/2 to Influenza / PNA : resolved * Influenza A: s/p treatment * HCAP : s/p abx * Acute Hypoxemic Resp failure 2/2 PNA and CHF: Improved / now extubated and stable on NC * CML / MDS +Pulmonary nodules ?mets * Severe Anemia 2/2 MDS : Has had 9units PRBCs so far * Severe Platelet refractory thrombocytopenia : Has also had 7 units platelets so far / Nose bleeds have resolved * Acute Renal failure : Resolved / Cr WNL * CHF-systolic and diastolic acute on chronic : compensated * NSTEMI type 2 :med mgt * COPD : stable * Dysphagia 2/2 encephalopathy * Cardiomyopathy with decreased left ventricular ejection fraction, last being approximately 45% to 50% by echo 11/2016. * Hematuria :likely 2/2 Silveira trauma from patient pulling +Thrombocytopenia PLAN: * PRBC and Platelet transfusion for hematuria for ongoing / Appreciate Urology consult, recommendations noted / silveira to remain for now * Continue seroquel / Neurology consult obtained for confusion / Continue bedside sitter * Patient remains off all abx * Optimize electrolytes * Cleared for Puree diet by ST * Continue supportive care + Strict aspiration precautions Prognosis: Guarded PROPHYLAXIS: IV PPI / SCDs Subjective 24 Hr Interval Summary Free Text/Dictation * still confused but much calmer * still requiring Sitter Exam/Review of Systems Vital Signs Vitals Vital Signs Date Time Temp Pulse Resp B/P Pulse Ox O2 Delivery O2 Flow Rate FiO2 01/11/17 08:15 74 01/11/17 08:08 98.5 20 95/90 98 01/11/17 04:00 Room Air 01/10/17 20:00 2.0 01/08/17 16:39 28 Intake and Output 01/10/17 01/10/17 01/11/17 15:00 23:00 07:00 Intake Total 250 ml 1000 ml 920 ml Output Total 800 ml Balance 250 ml 1000 ml 120 ml Exam Constitutional: alert, frail, No oriented Head: normocephalic Eyes: PERRL Respiratory: diminished breath sounds Cardiovascular: regular rate and rhythm, No murmurs/extra sounds Gastrointestinal: bowel sounds, non-tender, soft Genitourinary - Male: other (silveira draining bloody urine) Neurological: confused, other (restraints) Results Result Diagram: 01/11/17 0615 01/11/17 0515 Results 24 hrs Laboratory Tests Test 01/11/17 05:15 01/11/17 06:15 Alanine Aminotransferase (ALT/SGPT) 21 Albumin 2.4 L Albumin/Globulin Ratio 0.52 Alkaline Phosphatase 67 Anion Gap 14 Aspartate Amino Transf (AST/SGOT) 30 Blood Urea Nitrogen 21 H Calcium Level 7.6 L Carbon Dioxide Level 28 Chloride Level 104 Creatinine 1.59 H Direct Bilirubin 0.00 Globulin 4.60 H Glucose Level 120 Indirect Bilirubin 0.5 Potassium Level 3.0 L Sodium Level 143 Total Bilirubin 0.5 Total Protein 7.0 # Activated Partial Thromboplast Time 35.2 H Anisocytosis 1+ Band Neutrophils % 1.0 Blast Cells % 2.0 H Blastocytes # 0.3 Eosinophils # 0.3 Eosinophils % 2.0 Hematocrit 21.1 L Hemoglobin 6.6 *L INR International Normalized Ratio 1.47 Lymphocytes # 2.8 Lymphocytes % 17.0 Mean Corpuscular Hemoglobin 28.1 L Mean Corpuscular Hemoglobin Concent 31.3 L Mean Corpuscular Volume 89.8 Mean Platelet Volume 11.3 #H Metamyelocytes # 1.0 Metamyelocytes % 6.0 H Monocytes # 9.0 H Monocytes % 55.0 H Myelocytes # 1.5 Myelocytes % 9.0 H Neutrophils # 1.3 L Neutrophils % 8.0 L Platelet Count 37 #L Platelet Estimate PLT APPEAR DECREASED Polychromasia 1+ Prothrombin Time 17.9 H Prothrombin Time Ratio 1.4 Red Blood Count 2.35 L Red Cell Distribution Width 18.4 H White Blood Count 16.3 #H Medications Medications Current Medications Ondansetron HCl (Zofran Inj) 4 mg Q6H PRN IV NAUSEA AND/OR VOMITING; Start 12/23 at 16:30 Nitroglycerin (Nitroglycerin (Sl Tab) 0.4 Mg) 1 tab Q5M PRN SL CHEST PAIN; Start 12/23/16 at 16:30 Acetaminophen (Tylenol Supp) 650 mg Q4H PRN [place] PAIN LEVEL 1-3 OR FEVER Last administered on 12/25/16 01:06; Admin Dose 650 MG; Start 12/23/16 at 16:30 Bisacodyl (Dulcolax) 5 mg DAILY PRN PO CONSTIPATION; Start 12/23/16 at 16:30 Pantoprazole (Protonix Iv) 40 mg DAILY@06 IV Last administered on 01/11/17 05: 47; Admin Dose 40 MG; Start 12/24/16 at 06:00 IV Flush 10 ml 10 ml PRN PRN IV IV PROTOCOL; Start 01/03/17 at 16:30 Metronidazole (Flagyl 500 Mg (Pmx)) 100 ml @ 100 mls/hr Q8 IVPB Last administered on 01/11/17 05:47; Admin Dose 100 MLS/HR; Start 01/04/17 at 14:00 Morphine Sulfate (morphine) 1 mg Q4H PRN IV PAIN LEVEL 7-10 Last administered on 01/08/17 22:19; Admin Dose 1 MG; Start 01/05/17 at 14:00 Lorazepam (Ativan) 2 mg Q1HWA PRN IV AGITATION Last administered on 01/09/17 06:27; Admin Dose 2 MG; Start 01/06/17 at 09:30 Quetiapine Fumarate (Seroquel) 25 mg QHS NGT Last administered on 01/06/17 21: 01; Admin Dose 25 MG; Start 01/06/17 at 21:00; Status Future Hold Metoprolol Tartrate (Lopressor) 25 mg BID PO Last administered on 01/10/17 08: 52; Admin Dose 25 MG; Start 01/08/17 at 21:00 Furosemide (Lasix) 20 mg DAILY IV Last administered on 01/10/17 08:52; Admin Dose 20 MG; Start 01/08/17 at 15:00 Haloperidol (Haldol) 1 mg Q8H PRN IM AGITATION Last administered on 01/09/17 12:23; Admin Dose 1 MG; Start 01/08/17 at 23:30 Quetiapine Fumarate (Seroquel) 50 mg BID PO Last administered on 01/11/17t 08: 25; Admin Dose 50 MG; Start 01/09/17 at 11:30 Acetaminophen 650 mg 650 mg ONCE PO ; Start 01/11/17 at 08:30; Stop 01/12/17 at 08:29 Potassium Chloride/Dextrose (D5W + KCl 20 Meq) 1,000 ml @ 80 mls/hr [id number] IV ; Start 01/11/17 at 11:00 EZE LYLES Jan 11, 2017 11:03
--- NOTE | 2017-01-11 11:22 | PN ---
DATE: 01/11/2017 SUBJECTIVE: Gross hematuria. The patient has a very low platelet count. He had pulled his IV yest erday, but he is more calmer today and there is his sitter at bedside watching him. OBJECTIVE: VITAL SIGNS: His temperature is 98.5, pulse 74, respirations 20, blood pressure 95/90. ABDOMEN: Soft. GENITOURINARY: The Leyva catheter is in place and the nurse did flush it a little earlier and at th e present, there is not much of urine output in the tubing, and that is because of his hypotension. The urine in the drainage bag is blood-tinged. LABORATORY DATA: CBC shows a white count of 16.3, hemoglobin 6.6, hematocrit 21.1. The platelet co unt today is 37,000. IMPRESSION: Gross hematuria and this most likely is related to his very low platelet count and anem ia from the bleeding. From a urological standpoint, to just keep the Leyva catheter in, irrigate it as needed if it gets clogged. He is going to be getting blood transfusions as well as a platelet t ransfusion. Dictated By: WILFRID ROBERTS/RADHA Conf#: [id number] DID#: [id number]
--- NOTE | 2017-01-11 11:51 | CONS ---
Date/Time of Note Date/Time of Note DATE: 01/11/17 TIME: 11:49 Assessment/Plan Assessment/Plan Additional Assessment/Plan Assessment and recommendations; 1. Patient admitted with severe bilateral pneumonia leading to respiratory failure no extubated several days ago with continued marked clinical improvement. 2. History of CML. 3. History of severe thrombocytopenia with low but stable platelet count now. No overt bleeding. 4. Anemia. Currently getting blood transfusion. Continue current supportive care. Prognosis remains guarded. We will sign off. Thanks for the consult. Please reconsult if needed. Consultation Date/Type/Reason Admit Date/Time Dec 23, 2016 at 15:37 Initial Consult Date 12/24/16 Type of Consultation: Pulmonary Referring Provider: BEN COURTNEY MD 24 HR Interval Summary Free Text/Dictation Patient's condition is markedly improved. Patient is completely awake alert able to talk and can have a meaningful conversation. Denies any chest pain, shortness of breath, abdominal pain, nausea vomiting. General examination; elderly male, currently in no distress awake and alert. Getting blood transfusion. Exam/Review of Systems Vital Signs Vitals Vital Signs Date Time Temp Pulse Resp B/P Pulse Ox O2 Delivery O2 Flow Rate FiO2 01/11/17 08:15 74 01/11/17 08:08 98.5 20 95/90 98 01/11/17 04:00 Room Air 01/10/17 20:00 2.0 01/08/17 16:39 28 Intake and Output 01/10/17 01/10/17 01/11/17 15:00 23:00 07:00 Intake Total 250 ml 1000 ml 920 ml Output Total 800 ml Balance 250 ml 1000 ml 120 ml Exam HEENT examination; supple neck, no JVD. No lymphadenopathy. Midline trachea. Pupils are small bilaterally. No neck masses. No thyromegaly. Chest examination; diminished but clear breath sounds bilaterally. S1-S2 audible, no murmurs. Regular rhythm. Abdomen examination; soft, nontender, no organomegaly. Bowel sounds audible. Extremity examination; no peripheral edema. 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 Results Result Diagram: 01/11/17 0615 01/11/17 0515 Results 24 hrs Laboratory Tests Test 01/11/17 05:15 01/11/17 06:15 Alanine Aminotransferase (ALT/SGPT) 21 Albumin 2.4 L Albumin/Globulin Ratio 0.52 Alkaline Phosphatase 67 Anion Gap 14 Aspartate Amino Transf (AST/SGOT) 30 Blood Urea Nitrogen 21 H Calcium Level 7.6 L Carbon Dioxide Level 28 Chloride Level 104 Creatinine 1.59 H Direct Bilirubin 0.00 Globulin 4.60 H Glucose Level 120 Indirect Bilirubin 0.5 Potassium Level 3.0 L Sodium Level 143 Total Bilirubin 0.5 Total Protein 7.0 # Activated Partial Thromboplast Time 35.2 H Anisocytosis 1+ Band Neutrophils % 1.0 Blast Cells % 2.0 H Blastocytes # 0.3 Eosinophils # 0.3 Eosinophils % 2.0 Hematocrit 21.1 L Hemoglobin 6.6 *L INR International Normalized Ratio 1.47 Lymphocytes # 2.8 Lymphocytes % 17.0 Mean Corpuscular Hemoglobin 28.1 L Mean Corpuscular Hemoglobin Concent 31.3 L Mean Corpuscular Volume 89.8 Mean Platelet Volume 11.3 #H Metamyelocytes # 1.0 Metamyelocytes % 6.0 H Monocytes # 9.0 H Monocytes % 55.0 H Myelocytes # 1.5 Myelocytes % 9.0 H Neutrophils # 1.3 L Neutrophils % 8.0 L Platelet Count 37 #L Platelet Estimate PLT APPEAR DECREASED Polychromasia 1+ Prothrombin Time 17.9 H Prothrombin Time Ratio 1.4 Red Blood Count 2.35 L Red Cell Distribution Width 18.4 H White Blood Count 16.3 #H Medications Medications Current Medications Ondansetron HCl (Zofran Inj) 4 mg Q6H PRN IV NAUSEA AND/OR VOMITING; Start 12/23 at 16:30 Nitroglycerin (Nitroglycerin (Sl Tab) 0.4 Mg) 1 tab Q5M PRN SL CHEST PAIN; Start 12/23/16 at 16:30 Acetaminophen (Tylenol Supp) 650 mg Q4H PRN [place] PAIN LEVEL 1-3 OR FEVER Last administered on 12/25/16 01:06; Admin Dose 650 MG; Start 12/23/16 at 16:30 Bisacodyl (Dulcolax) 5 mg DAILY PRN PO CONSTIPATION; Start 12/23/16 at 16:30 Pantoprazole (Protonix Iv) 40 mg DAILY@06 IV Last administered on 01/11/17 05: 47; Admin Dose 40 MG; Start 12/24/16 at 06:00 IV Flush 10 ml 10 ml PRN PRN IV IV PROTOCOL; Start 01/03/17 at 16:30 Metronidazole (Flagyl 500 Mg (Pmx)) 100 ml @ 100 mls/hr Q8 IVPB Last administered on 01/11/17 05:47; Admin Dose 100 MLS/HR; Start 01/04/17 at 14:00 Morphine Sulfate (morphine) 1 mg Q4H PRN IV PAIN LEVEL 7-10 Last administered on 01/08/17 22:19; Admin Dose 1 MG; Start 01/05/17 at 14:00 Lorazepam (Ativan) 2 mg Q1HWA PRN IV AGITATION Last administered on 01/09/17 06:27; Admin Dose 2 MG; Start 01/06/17 at 09:30 Quetiapine Fumarate (Seroquel) 25 mg QHS NGT Last administered on 01/06/17 21: 01; Admin Dose 25 MG; Start 01/06/17 at 21:00; Status Future Hold Metoprolol Tartrate (Lopressor) 25 mg BID PO Last administered on 01/10/17 08: 52; Admin Dose 25 MG; Start 01/08/17 at 21:00 Furosemide (Lasix) 20 mg DAILY IV Last administered on 01/10/17 08:52; Admin Dose 20 MG; Start 01/08/17 at 15:00 Haloperidol (Haldol) 1 mg Q8H PRN IM AGITATION Last administered on 01/09/17 12:23; Admin Dose 1 MG; Start 01/08/17 at 23:30 Acetaminophen (Tylenol Tab) 650 mg ONCE PO ; Start 01/11/17 at 08:30; Stop 01/12 at 08:29 Quetiapine Fumarate (Seroquel) 75 mg BID PO ; Start 01/11/17 at 21:00 MYESHA OLIVER Jan 11, 2017 11:51
--- NOTE | 2017-01-11 11:55 | CONS ---
Date/Time of Note Date/Time of Note DATE: 01/11/17 TIME: 11:52 Assessment/Plan Assessment/Plan Additional Assessment/Plan 1. Acute kidney injury, likely secondary to acute tubular necrosis in the setting of sepsis.-improved 2. Acute hypoxemic respiratory failure, multifactorial, secondary to sepsis and secondary to pulmonary congestion s/p extubation 3. Acute pulmonary edema with influenza pneumonia.- now improved 4. History of congestive heart failure with diastolic heart failure. 5. History of chronic obstructive pulmonary disease. 6. History of gastroesophageal reflux disease. 7. History of smoking. 8. 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 9. Hypomagnesemia , Hypokalemia PLAN: making good urine, Creatinine bumped to 1.5, Hematuria, urology following urology following getting PRBC, will follow up on Cr and electrolytes will follow up this critical care note took greater than 45 min to complete Consultation Date/Type/Reason Admit Date/Time Dec 23, 2016 at 15:37 Initial Consult Date 12/23/16 Type of Consultation: NEPHROLOGY Reason for Consultation BLESSING, Hyperkalemia Referring Provider: BEN COURTNEY MD 24 HR Interval Summary Free Text/Dictation pt getting blood tranfusino, bloody urine in silveira, k low, Cr bumped to 1.5 today Exam/Review of Systems Vital Signs Vitals Vital Signs Date Time Temp Pulse Resp B/P Pulse Ox O2 Delivery O2 Flow Rate FiO2 01/11/17 08:15 74 01/11/17 08:08 98.5 20 95/90 98 01/11/17 04:00 Room Air 01/10/17 20:00 2.0 01/08/17 16:39 28 Intake and Output 01/10/17 01/10/17 01/11/17 15:00 23:00 07:00 Intake Total 250 ml 1000 ml 920 ml Output Total 800 ml Balance 250 ml 1000 ml 120 ml Exam Gen [place]: alert, agitated CV: S1S2, no M/G/R Lungs: coarse breath sounds throughout all lung masters, diminished at the bases , with end expiratory wheezing Abd: soft, NT/ND, +BS, EXT: 1+ edema, no ecchymosis, no clubbing, FROM, muscle wasting noted + silveira catheter with blood in urine Results Result Diagram: 01/11/17 0615 01/11/17 0515 Results 24 hrs Laboratory Tests Test 01/11/17 05:15 01/11/17 06:15 Alanine Aminotransferase (ALT/SGPT) 21 Albumin 2.4 L Albumin/Globulin Ratio 0.52 Alkaline Phosphatase 67 Anion Gap 14 Aspartate Amino Transf (AST/SGOT) 30 Blood Urea Nitrogen 21 H Calcium Level 7.6 L Carbon Dioxide Level 28 Chloride Level 104 Creatinine 1.59 H Direct Bilirubin 0.00 Globulin 4.60 H Glucose Level 120 Indirect Bilirubin 0.5 Potassium Level 3.0 L Sodium Level 143 Total Bilirubin 0.5 Total Protein 7.0 # Activated Partial Thromboplast Time 35.2 H Anisocytosis 1+ Band Neutrophils % 1.0 Blast Cells % 2.0 H Blastocytes # 0.3 Eosinophils # 0.3 Eosinophils % 2.0 Hematocrit 21.1 L Hemoglobin 6.6 *L INR International Normalized Ratio 1.47 Lymphocytes # 2.8 Lymphocytes % 17.0 Mean Corpuscular Hemoglobin 28.1 L Mean Corpuscular Hemoglobin Concent 31.3 L Mean Corpuscular Volume 89.8 Mean Platelet Volume 11.3 #H Metamyelocytes # 1.0 Metamyelocytes % 6.0 H Monocytes # 9.0 H Monocytes % 55.0 H Myelocytes # 1.5 Myelocytes % 9.0 H Neutrophils # 1.3 L Neutrophils % 8.0 L Platelet Count 37 #L Platelet Estimate PLT APPEAR DECREASED Polychromasia 1+ Prothrombin Time 17.9 H Prothrombin Time Ratio 1.4 Red Blood Count 2.35 L Red Cell Distribution Width 18.4 H White Blood Count 16.3 #H Medications Medications Current Medications Ondansetron HCl (Zofran Inj) 4 mg Q6H PRN IV NAUSEA AND/OR VOMITING; Start 12/23 at 16:30 Nitroglycerin (Nitroglycerin (Sl Tab) 0.4 Mg) 1 tab Q5M PRN SL CHEST PAIN; Start 12/23/16 at 16:30 Acetaminophen (Tylenol Supp) 650 mg Q4H PRN [place] PAIN LEVEL 1-3 OR FEVER Last administered on 12/25/16 01:06; Admin Dose 650 MG; Start 12/23/16 at 16:30 Bisacodyl (Dulcolax) 5 mg DAILY PRN PO CONSTIPATION; Start 12/23/16 at 16:30 Pantoprazole (Protonix Iv) 40 mg DAILY@06 IV Last administered on 01/11/17 05: 47; Admin Dose 40 MG; Start 12/24/16 at 06:00 IV Flush 10 ml 10 ml PRN PRN IV IV PROTOCOL; Start 01/03/17 at 16:30 Metronidazole (Flagyl 500 Mg (Pmx)) 100 ml @ 100 mls/hr Q8 IVPB Last administered on 01/11/17 05:47; Admin Dose 100 MLS/HR; Start 01/04/17 at 14:00 Morphine Sulfate (morphine) 1 mg Q4H PRN IV PAIN LEVEL 7-10 Last administered on 01/08/17 22:19; Admin Dose 1 MG; Start 01/05/17 at 14:00 Lorazepam (Ativan) 2 mg Q1HWA PRN IV AGITATION Last administered on 01/09/17 06:27; Admin Dose 2 MG; Start 01/06/17 at 09:30 Quetiapine Fumarate (Seroquel) 25 mg QHS NGT Last administered on 01/06/17 21: 01; Admin Dose 25 MG; Start 01/06/17 at 21:00; Status Future Hold Metoprolol Tartrate (Lopressor) 25 mg BID PO Last administered on 01/10/17 08: 52; Admin Dose 25 MG; Start 01/08/17 at 21:00 Furosemide (Lasix) 20 mg DAILY IV Last administered on 01/10/17 08:52; Admin Dose 20 MG; Start 01/08/17 at 15:00 Haloperidol (Haldol) 1 mg Q8H PRN IM AGITATION Last administered on 01/09/17 12:23; Admin Dose 1 MG; Start 01/08/17 at 23:30 Acetaminophen (Tylenol Tab) 650 mg ONCE PO ; Start 01/11/17 at 08:30; Stop 01/12 at 08:29 Quetiapine Fumarate (Seroquel) 75 mg BID PO ; Start 01/11/17 at 21:00 GILL PEREIRA MD Jan 11, 2017 11:54
[2017-01-11] MEDS ORDERED: HALOPERIDOL 5 MG INJ IM ONE (12:30)
--- NOTE | 2017-01-11 13:07 | CONS ---
DATE OF ADMISSION: 12/23/2016 DATE OF CONSULTATION: 01/11/2017 TYPE OF CONSULTATION: Neurology. Thank you, Dr. Hong, for your kind referral for evaluation of encephalopathy. HISTORY OF PRESENT ILLNESS: The patient is a 71-year-old gentleman who was admitted on 12/23/2016 secondary to sepsis. He has multiple medical problems, most recent evaluation status post sepsis, respiratory failure, status post intubation, patient has CML, severe thrombocytopenia and anemia, renal failure resolved, chronic congestive heart failure, status post [place], COPD, cardiomyopathy. According to the physician's note, patient post-extubation continued to be somewhat confused and at times requiring restraints. The patient's family member is at bedside confirming intermittent confusion. A CAT scan on admission did not show any abnormality. Most recent labs show WBC count 16.3, hemoglobin 6.6, hematocrit 21, platelets 37. Platelets at times go as low as 13. The patient is being transfused right now. PT of 17.8, PTT of 35. Chemistry: BUN 21, creatinine 1.59, albumin 2.4, rest of comprehensive metabolic panel within normal limits. ALLERGIES: NONE. PAST MEDICAL HISTORY: As above. CURRENT MEDICATIONS: 1. Seroquel 75 twice daily. 2. Haldol p.r.n. 3. Metoprolol. 4. Lasix. 5. Metronidazole. SOCIAL HISTORY: Cigarette smoker. No alcohol or drug use. FAMILY HISTORY: Noncontributory. PHYSICAL EXAMINATION: VITAL SIGNS: Today, temperature 98.0, pulse 72, respirations 20, blood pressure 104/56. GENERAL: Not in acute distress, lying in bed, somewhat pale. HEENT: Normocephalic, atraumatic head. NECK: No carotid bruits. No thyromegaly. LUNGS: Clear to auscultation bilaterally. CARDIAC: Normal cardiac rhythm and sounds. ABDOMEN: Soft, nontender. EXTREMITIES: No cyanosis, clubbing or edema. NEUROLOGIC: He is awake, alert, and oriented x2. The patient's family member helps with interpreting from Icelandic, though patient speaks some Scottish I could understand and speak. Fluent speech. Cranial nerve examination shows intact visual masters bilaterally. Pupils reactive to light from 3 to 2 mm bilaterally. Extraocular movements intact without nystagmus. Symmetrical face. Preserved facial strength and sensation. Tongue is in midline. Palate elevates symmetrically. Motor strength examination seems to be preserved in all extremities. Normal bulk, tone, and strength. Sensory examination grossly intact to light touch and pain. Deep tendon reflexes 2+ throughout. Equivocal response to plantar stimulation bilaterally. Coordination preserved on finger- to-finger testing. Mild postural tremor noticed in fingers as well as mild tremor of the head seen as well. According to the patient, head tremor has been present for many years. IMPRESSION: Encephalopathy, likely toxic metabolic in etiology. Given that patient has episodes of very low platelets and anemia, to rule out any structural changes, it is reasonable to obtain MRI of the brain, which was requested by primary MD already. I will obtain EEG for evaluation of encephalopathy. Continue current treatment otherwise. Thank you very much for this interesting consultation. Dictated By: GLORIA ROBBINS/RADHA Conf#: [id number] DID#: [id number] MTDD
--- NOTE | 2017-01-11 14:49 | CONS ---
Date/Time of Note Date/Time of Note DATE: 01/11/17 TIME: 14:48 Assessment/Plan Assessment/Plan Additional Assessment/Plan 1. Respiratory failure-improved s/p extubation - stable respiratory status. 2. Cardiomyopathy with decreased left ventricular ejection fraction, last being approximately 45% to 50% by echo 11/2016. No indication for ICD. 3. Hypotension, borderline- better now, will monitor closely - NO Change - SINUS ON TELE now. 4. Influenza positive- con't Rx - supportive. 5. History of chronic myelogenous leukemia. 6. Renal failure-slowly improving. 7. Thrombocytopenia, severe - no active bleeding noted 8. Anemia. 9. Leukocytosis. 10.CHF-systolic and diastolic acute on chronic- con't to keep euvolemic. 11.Positive troponin-likely demand event. Now trended negative Consultation Date/Type/Reason Admit Date/Time Dec 23, 2016 at 15:37 Initial Consult Date 12/24/16 Type of Consultation: NEPHROLOGY Referring Provider: BEN COURTNEY MD 24 HR Interval Summary Free Text/Dictation No acute change - in sinus, con't to keep euvolemic. ROS: No fever, no chills, no nausea, no vomiting, no diarrhea/constipation No recent weight changes No chest pain, no PND, no orthopnea No dizziness, blurred vision No thirst, no heat or cold intolerance (per nurse) Exam/Review of Systems Vital Signs Vitals Vital Signs Date Time Temp Pulse Resp B/P Pulse Ox O2 Delivery O2 Flow Rate FiO2 01/11/17 12:16 72 01/11/17 12:09 98.0 20 104/56 98 01/11/17 04:00 Room Air 01/10/17 20:00 2.0 01/08/17 16:39 28 Intake and Output 01/10/17 01/10/17 01/11/17 15:00 23:00 07:00 Intake Total 250 ml 1000 ml 920 ml Output Total 800 ml Balance 250 ml 1000 ml 120 ml Exam General: WN/WD/NAD, AOx 0-1 HEENT: Unicetric/atraumatic/EOMI (does not follow commands) NECK: JVD elevated, no thyromegaly Lymph: no lymphadenopathy HEART: regular with no S3, II/ systolic murmur at apex LUNGS: Coarse sounds ABD: soft, NT, ND, +BS : Intact Neuro: non focal SKIN: chronic changes, bruising EXT: trace edema Results Result Diagram: 01/11/17 0615 01/11/17 0515 Results 24 hrs Laboratory Tests Test 01/11/17 05:15 01/11/17 06:15 Alanine Aminotransferase (ALT/SGPT) 21 Albumin 2.4 L Albumin/Globulin Ratio 0.52 Alkaline Phosphatase 67 Anion Gap 14 Aspartate Amino Transf (AST/SGOT) 30 Blood Urea Nitrogen 21 H Calcium Level 7.6 L Carbon Dioxide Level 28 Chloride Level 104 Creatinine 1.59 H Direct Bilirubin 0.00 Globulin 4.60 H Glucose Level 120 Indirect Bilirubin 0.5 Potassium Level 3.0 L Sodium Level 143 Total Bilirubin 0.5 Total Protein 7.0 # Activated Partial Thromboplast Time 35.2 H Anisocytosis 1+ Band Neutrophils % 1.0 Blast Cells % 2.0 H Blastocytes # 0.3 Eosinophils # 0.3 Eosinophils % 2.0 Hematocrit 21.1 L Hemoglobin 6.6 *L INR International Normalized Ratio 1.47 Lymphocytes # 2.8 Lymphocytes % 17.0 Mean Corpuscular Hemoglobin 28.1 L Mean Corpuscular Hemoglobin Concent 31.3 L Mean Corpuscular Volume 89.8 Mean Platelet Volume 11.3 #H Metamyelocytes # 1.0 Metamyelocytes % 6.0 H Monocytes # 9.0 H Monocytes % 55.0 H Myelocytes # 1.5 Myelocytes % 9.0 H Neutrophils # 1.3 L Neutrophils % 8.0 L Platelet Count 37 #L Platelet Estimate PLT APPEAR DECREASED Polychromasia 1+ Prothrombin Time 17.9 H Prothrombin Time Ratio 1.4 Red Blood Count 2.35 L Red Cell Distribution Width 18.4 H White Blood Count 16.3 #H Medications Medications Current Medications Ondansetron HCl (Zofran Inj) 4 mg Q6H PRN IV NAUSEA AND/OR VOMITING; Start 12/23 at 16:30 Nitroglycerin (Nitroglycerin (Sl Tab) 0.4 Mg) 1 tab Q5M PRN SL CHEST PAIN; Start 12/23/16 at 16:30 Acetaminophen (Tylenol Supp) 650 mg Q4H PRN [place] PAIN LEVEL 1-3 OR FEVER Last administered on 12/25/16t 01:06; Admin Dose 650 MG; Start 12/23/16 at 16:30 Bisacodyl (Dulcolax) 5 mg DAILY PRN PO CONSTIPATION; Start 12/23/16 at 16:30 Pantoprazole (Protonix Iv) 40 mg DAILY@06 IV Last administered on 01/11/17 05: 47; Admin Dose 40 MG; Start 12/24/16 at 06:00 IV Flush 10 ml 10 ml PRN PRN IV IV PROTOCOL; Start 01/03/17 at 16:30 Metronidazole (Flagyl 500 Mg (Pmx)) 100 ml @ 100 mls/hr Q8 IVPB Last administered on 01/11/17 05:47; Admin Dose 100 MLS/HR; Start 01/04/17 at 14:00 Morphine Sulfate (morphine) 1 mg Q4H PRN IV PAIN LEVEL 7-10 Last administered on 01/08/17 22:19; Admin Dose 1 MG; Start 01/05/17 at 14:00 Lorazepam (Ativan) 2 mg Q1HWA PRN IV AGITATION Last administered on 01/09/17 06:27; Admin Dose 2 MG; Start 01/06/17 at 09:30 Quetiapine Fumarate (Seroquel) 25 mg QHS NGT Last administered on 01/06/17 21: 01; Admin Dose 25 MG; Start 01/06/17 at 21:00; Status Future Hold Metoprolol Tartrate (Lopressor) 25 mg BID PO Last administered on 01/10/17 08: 52; Admin Dose 25 MG; Start 01/08/17 at 21:00 Furosemide (Lasix) 20 mg DAILY IV Last administered on 01/10/17 08:52; Admin Dose 20 MG; Start 01/08/17 at 15:00 Haloperidol (Haldol) 1 mg Q8H PRN IM AGITATION Last administered on 01/09/17 12:23; Admin Dose 1 MG; Start 01/08/17 at 23:30 Acetaminophen (Tylenol Tab) 650 mg ONCE PO Last administered on 01/11/17 13:48 ; Admin Dose 650 MG; Start 01/11/17 at 08:30; Stop 01/12/17 at 08:29 Quetiapine Fumarate (Seroquel) 75 mg BID PO ; Start 01/11/17 at 21:00 GONZALO MURCIA MD Jan 11, 2017 14:49
[2017-01-11 19:16] LABS: HEMOGLOBIN 9.5 g/dl (14.0-18.0)
[2017-01-11 19:26] LABS: POTASSIUM 3.1 mmol/L (3.5-5.1)
[2017-01-11 19:29] LABS: CREATININE 1.61 mg/dl (0.61-1.24)
[2017-01-11 19:30] LABS: CALCIUM 7.6 mg/dl (8.4-10.2)
[2017-01-11] MEDS: POTASSIUM CHLORIDE 50 ML IVPB PRN ×3 (19:42→20:51)
[2017-01-11] MEDS: COLLAGENASE 30 GM TUBE TOP SCH (19:43)
[2017-01-12] VITALS (9 sets, daily range): BP systolic 106–138; BP diastolic 58–64; PULSE 67–77; RESP 16–20
[2017-01-12] MEDS: metroNIDAZOLE 500 MG/NS (PMX) 100 ML IVPB SCH ×3 (05:31→22:00)
[2017-01-12] MEDS: PANTOPRAZOLE 40 MG INJ IV SCH (05:31)
[2017-01-12 07:16] LABS: ADD SCAN DIFF NO
[2017-01-12 07:31] LABS: ABNORMAL IP MESSAGE 1; EOSINOPHILS # 0.2 10^3/ul (0.0-0.5); EOSINOPHILS % 0.9 % (0.0-7.0); HEMATOCRIT 29.6 % (42.0-52.0); LYMPHOCYTES # 3.1 10^3/ul (0.8-2.9); LYMPHOCYTES % 17.8 % (15.0-51.0); MEAN CORPUSCULAR HEMOGLOBIN 29.4 pg (29.0-33.0); MEAN CORPUSCULAR HGB CONC 33.8 g/dl (32.0-37.0); MEAN CORPUSCULAR VOLUME 87.1 fl (82.0-101.0); MEAN PLATELET VOLUME 11.4 fl (7.4-10.4); MONOCYTE # 9.8 10^3/ul (0.3-0.9); MONOCYTES % 57.3 % (0.0-11.0); NEUTROPHIL # 2.2 10^3/ul (1.6-7.5); NEUTROPHILS % 12.5 % (39.0-77.0); NUCLEATED RED BLOOD CELLS # 0.1 10^3/ul (0.0-0.0); NUCLEATED RED BLOOD CELLS% 0.3 /100WBC (0.0-0.0); PLATELET COUNT 45 10^3/UL (140-415); RED CELL DISTRIBUTION WIDTH 16.8 % (11.5-14.5); WHITE BLOOD COUNT 17.2 10^3/ul (4.8-10.8)
[2017-01-12 07:34] LABS: ALBUMIN 2.7 g/dl (3.3-4.9)
[2017-01-12 07:35] LABS: POTASSIUM 3.6 mmol/L (3.5-5.1)
[2017-01-12 07:37] LABS: ALBUMIN/GLOBULIN RATIO 0.51; BILIRUBIN,INDIRECT 0.5 mg/dl (0-1.1); BILIRUBIN,TOTAL 0.5 mg/dl (0.2-1.3); CREATININE 1.56 mg/dl (0.61-1.24); TOTAL PROTEIN 7.9 g/dl (6.1-8.1)
[2017-01-12 07:38] LABS: CALCIUM 7.6 mg/dl (8.4-10.2)
[2017-01-12 07:39] LABS: PROTIME 16.3 Sec (12.2-14.2); PT RATIO 1.3
[2017-01-12 07:42] LABS: PARTIAL THROMBOPLASTIN TIME 33.6 Sec (25.0-35.0)
[2017-01-12 07:43] LABS: THROMBIN TIME 17.2 SEC (13.8-19.1)
[2017-01-12 07:46] LABS: PLATELET COUNT 37 10^3/UL (140-415)
[2017-01-12 08:15] LABS: D-DIMER 9728.29 ng/ml (<460)
--- NOTE | 2017-01-12 08:26 | CONS ---
Date/Time of Note Date/Time of Note DATE: 01/12/17 TIME: 08:23 Consult Date/Type/Reason Admit Date/Time Dec 23, 2016 at 15:37 Initial Consult Date 12/24/16 Type of Consultation: NEPHROLOGY Ordering Provider: BEN COURTNEY MD Subjective Pt is s/p 2upRBC and 1uplts. Urine now yellow. No further clots. Renal u/s reviewed. Pt subjectively feels more energetic. No pain. Objective Vital Signs Date Time Temp Pulse Resp B/P Pulse Ox O2 Delivery O2 Flow Rate FiO2 01/12/17 08:06 98.2 77 20 138/64 94 01/12/17 04:16 Room Air 01/10/17 20:00 2.0 01/08/17 16:39 28 Intake and Output 01/11/17 01/11/17 01/12/17 15:00 23:00 07:00 Intake Total 1295 ml 90 ml Output Total 500 ml 1300 ml Balance 795 ml -1210 ml Results/Medications Result Diagram: 01/12/17 0602 01/12/17 0602 Results 24 hrs Laboratory Tests Test 01/11/17 19:00 01/12/17 06:02 Anion Gap 12 14 Blood Urea Nitrogen 20 19 Calcium Level 7.6 L 7.6 L Carbon Dioxide Level 29 28 Chloride Level 102 104 Creatinine 1.61 H 1.56 H Glucose Level 121 91 Hematocrit 28.0 #L 29.6 L Hemoglobin 9.5 #L 10.0 L Potassium Level 3.1 L 3.6 Sodium Level 140 142 Activated Partial Thromboplast Time 33.6 Alanine Aminotransferase (ALT/SGPT) 22 Albumin 2.7 L Albumin/Globulin Ratio 0.51 Alkaline Phosphatase 73 Aspartate Amino Transf (AST/SGOT) 36 Basophils # 0.0 Basophils % 0.0 D-Dimer 9728.29 H D-Dimer Comment Direct Bilirubin 0.00 Eosinophils # 0.2 Eosinophils % 0.9 Fibrinogen 231.0 # Globulin 5.20 H INR International Normalized Ratio 1.30 Indirect Bilirubin 0.5 Lymphocytes # 3.1 H Lymphocytes % 17.8 Mean Corpuscular Hemoglobin 29.4 Mean Corpuscular Hemoglobin Concent 33.8 Mean Corpuscular Volume 87.1 Mean Platelet Volume 11.4 H Monocytes # 9.8 H Monocytes % 57.3 H Neutrophils # 2.2 Neutrophils % 12.5 L Nucleated Red Blood Cells # 0.1 H Nucleated Red Blood Cells % 0.3 H Plasma Fibrin Degradation Products Pending Platelet Count 37 #L Prothrombin Time 16.3 H Prothrombin Time Ratio 1.3 Red Blood Count 3.40 #L Red Cell Distribution Width 16.8 H Thrombin Time 17.2 Total Bilirubin 0.5 Total Protein 7.9 White Blood Count 17.2 H Medications Current Medications Ondansetron HCl (Zofran Inj) 4 mg Q6H PRN IV NAUSEA AND/OR VOMITING; Start 12/23 at 16:30 Nitroglycerin (Nitroglycerin (Sl Tab) 0.4 Mg) 1 tab Q5M PRN SL CHEST PAIN; Start 12/23/16 at 16:30 Acetaminophen (Tylenol Supp) 650 mg Q4H PRN [place] PAIN LEVEL 1-3 OR FEVER Last administered on 12/25/16 01:06; Admin Dose 650 MG; Start 12/23/16 at 16:30 Bisacodyl (Dulcolax) 5 mg DAILY PRN PO CONSTIPATION; Start 12/23/16 at 16:30 Pantoprazole (Protonix Iv) 40 mg DAILY@06 IV Last administered on 01/12/17 05: 31; Admin Dose 40 MG; Start 12/24/16 at 06:00 IV Flush 10 ml 10 ml PRN PRN IV IV PROTOCOL; Start 01/03/17 at 16:30 Metronidazole (Flagyl 500 Mg (Pmx)) 100 ml @ 100 mls/hr Q8 IVPB Last administered on 01/12/17 05:31; Admin Dose 100 MLS/HR; Start 01/04/17 at 14:00 Morphine Sulfate (morphine) 1 mg Q4H PRN IV PAIN LEVEL 7-10 Last administered on 01/08/17 22:19; Admin Dose 1 MG; Start 01/05/17 at 14:00 Lorazepam (Ativan) 2 mg Q1HWA PRN IV AGITATION Last administered on 01/09/17 06:27; Admin Dose 2 MG; Start 01/06/17 at 09:30 Quetiapine Fumarate (Seroquel) 25 mg QHS NGT Last administered on 01/06/17 21: 01; Admin Dose 25 MG; Start 01/06/17 at 21:00; Status Future Hold Metoprolol Tartrate (Lopressor) 25 mg BID PO Last administered on 01/11/17 20: 18; Admin Dose 25 MG; Start 01/08/17 at 21:00 Furosemide (Lasix) 20 mg DAILY IV Last administered on 01/10/17 08:52; Admin Dose 20 MG; Start 01/08/17 at 15:00 Haloperidol (Haldol) 1 mg Q8H PRN IM AGITATION Last administered on 01/09/17 12:23; Admin Dose 1 MG; Start 01/08/17 at 23:30 Acetaminophen (Tylenol Tab) 650 mg ONCE PO Last administered on 01/11/17 13:48 ; Admin Dose 650 MG; Start 01/11/17 at 08:30; Stop 01/12/17 at 08:29 Quetiapine Fumarate (Seroquel) 75 mg BID PO Last administered on 01/11/17 20: 18; Admin Dose 75 MG; Start 01/11/17 at 21:00 Collagenase (Santyl) 1 applic DAILY TOP Last administered on 01/11/17 19:43; Admin Dose 1 APPLIC; Start 01/11/17 at 16:00 Assessment/Plan Problems: (1) Respiratory failure (2) Pneumonia (3) CMML (chronic myelomonocytic leukemia) (4) Influenza A Additional Assessment/Plan 1. Hematuria: now resolved. Complicated by placement of Leyva and thrombocytopenia. S/p plt txn. Now resolved. 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 Complicated by thrombocytopenia and anemia. Pt is transfusion dependent. No need for today after yesterdays 2upRBC and 1uplts. 3. ARF: monitor Cr. Renally dose medications. 4. Influenza A: resolved MENDY CAMPBELL Jan 12, 2017 08:26
[2017-01-12] MEDS: METOPROLOL 25 MG TAB PO SCH ×2 (08:32→21:12)
[2017-01-12] MEDS: FUROSEMIDE 20 MG INJ IV SCH (08:33)
[2017-01-12] MEDS: QUETIAPINE 25 MG TAB PO SCH ×2 (08:33→21:11)
[2017-01-12 08:38] LABS: FIBRIN SPLIT PRODUCT <10 ug/ml (<10)
[2017-01-12] MEDS: COLLAGENASE 30 GM TUBE TOP SCH (09:00)
--- NOTE | 2017-01-12 10:40 | PN ---
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 PROBLEMS: * Encephalopathy (Acute): per family patient was alert / oriented and functioning prior to admission / Still requiring restraints / this is likely new baseline * Sepsis - 2/2 to Influenza / PNA : resolved * Influenza A: s/p treatment * HCAP : s/p abx * Acute Hypoxemic Resp failure 2/2 PNA and CHF: Improved / now extubated and stable on NC * CML / MDS +Pulmonary nodules ?mets * Severe Anemia 2/2 MDS : Has had 9units PRBCs so far * Severe Platelet refractory thrombocytopenia : Has also had 7 units platelets so far / Nose bleeds have resolved * Acute Renal failure : Resolved / Cr WNL * CHF-systolic and diastolic acute on chronic : compensated * NSTEMI type 2 :med mgt * COPD : stable * Dysphagia 2/2 encephalopathy * Cardiomyopathy with decreased left ventricular ejection fraction, last being approximately 45% to 50% by echo 11/2016. * Hematuria :likely 2/2 Silveira trauma from patient pulling +Thrombocytopenia PLAN: * Continue seroquel / Begin to wean sitter * Keep silveira till cleared by urology * Patient remains off all abx * Optimize electrolytes * Cleared for Puree diet by ST * Continue supportive care + Strict aspiration precautions * transfer to med surg Prognosis: improved PROPHYLAXIS: IV PPI / SCDs Subjective 24 Hr Interval Summary Free Text/Dictation * patient doing much better / still prone to episodes of trying to get out of bed on his own however * spoke in detail with his son about goals of care Exam/Review of Systems Vital Signs Vitals Vital Signs Date Time Temp Pulse Resp B/P Pulse Ox O2 Delivery O2 Flow Rate FiO2 01/12/17 08:15 71 01/12/17 08:06 98.2 20 138/64 94 01/12/17 04:16 Room Air 01/10/17 20:00 2.0 01/08/17 16:39 28 Intake and Output 01/11/17 01/11/17 01/12/17 15:00 23:00 07:00 Intake Total 1295 ml 90 ml Output Total 500 ml 1300 ml Balance 795 ml -1210 ml Exam Constitutional: alert, frail, other (calm) Psych: confusion (occ) Head: atraumatic, normocephalic Eyes: PERRL ENMT: mucosa pink and moist Neck: supple Respiratory: clear to auscultation, diminished breath sounds Cardiovascular: regular rate and rhythm, No murmurs/extra sounds Gastrointestinal: bowel sounds, non-tender, soft Extremities: No edema Neurological: confused Results Result Diagram: 01/12/17 0602 01/12/17 0602 Results 24 hrs Laboratory Tests Test 01/11/17 19:00 01/12/17 06:02 Anion Gap 12 14 Blood Urea Nitrogen 20 19 Calcium Level 7.6 L 7.6 L Carbon Dioxide Level 29 28 Chloride Level 102 104 Creatinine 1.61 H 1.56 H Glucose Level 121 91 Hematocrit 28.0 #L 29.6 L Hemoglobin 9.5 #L 10.0 L Potassium Level 3.1 L 3.6 Sodium Level 140 142 Activated Partial Thromboplast Time 33.6 Alanine Aminotransferase (ALT/SGPT) 22 Albumin 2.7 L Albumin/Globulin Ratio 0.51 Alkaline Phosphatase 73 Aspartate Amino Transf (AST/SGOT) 36 Basophils # 0.0 Basophils % 0.0 D-Dimer 9728.29 H D-Dimer Comment Direct Bilirubin 0.00 Eosinophils # 0.2 Eosinophils % 0.9 Fibrinogen 231.0 # Globulin 5.20 H INR International Normalized Ratio 1.30 Indirect Bilirubin 0.5 Lymphocytes # 3.1 H Lymphocytes % 17.8 Mean Corpuscular Hemoglobin 29.4 Mean Corpuscular Hemoglobin Concent 33.8 Mean Corpuscular Volume 87.1 Mean Platelet Volume 11.4 H Monocytes # 9.8 H Monocytes % 57.3 H Neutrophils # 2.2 Neutrophils % 12.5 L Nucleated Red Blood Cells # 0.1 H Nucleated Red Blood Cells % 0.3 H Plasma Fibrin Degradation Products <10 Platelet Count 37 #L Prothrombin Time 16.3 H Prothrombin Time Ratio 1.3 Red Blood Count 3.40 #L Red Cell Distribution Width 16.8 H Thrombin Time 17.2 Total Bilirubin 0.5 Total Protein 7.9 White Blood Count 17.2 H Medications Medications Current Medications Ondansetron HCl (Zofran Inj) 4 mg Q6H PRN IV NAUSEA AND/OR VOMITING; Start 12/23 at 16:30 Nitroglycerin (Nitroglycerin (Sl Tab) 0.4 Mg) 1 tab Q5M PRN SL CHEST PAIN; Start 12/23/16 at 16:30 Acetaminophen (Tylenol Supp) 650 mg Q4H PRN [place] PAIN LEVEL 1-3 OR FEVER Last administered on 12/25/16 01:06; Admin Dose 650 MG; Start 12/23/16 at 16:30 Bisacodyl (Dulcolax) 5 mg DAILY PRN PO CONSTIPATION; Start 12/23/16 at 16:30 Pantoprazole (Protonix Iv) 40 mg DAILY@06 IV Last administered on 01/12/17 05: 31; Admin Dose 40 MG; Start 12/24/16 at 06:00 IV Flush 10 ml 10 ml PRN PRN IV IV PROTOCOL; Start 01/03/17 at 16:30 Metronidazole (Flagyl 500 Mg (Pmx)) 100 ml @ 100 mls/hr Q8 IVPB Last administered on 01/12/17 05:31; Admin Dose 100 MLS/HR; Start 01/04/17 at 14:00 Morphine Sulfate (morphine) 1 mg Q4H PRN IV PAIN LEVEL 7-10 Last administered on 01/08/17 22:19; Admin Dose 1 MG; Start 01/05/17 at 14:00 Lorazepam (Ativan) 2 mg Q1HWA PRN IV AGITATION Last administered on 01/09/17 06:27; Admin Dose 2 MG; Start 01/06/17 at 09:30 Quetiapine Fumarate (Seroquel) 25 mg QHS NGT Last administered on 01/06/17 21: 01; Admin Dose 25 MG; Start 01/06/17 at 21:00; Status Future Hold Metoprolol Tartrate (Lopressor) 25 mg BID PO Last administered on 01/12/17 08: 32; Admin Dose 25 MG; Start 01/08/17 at 21:00 Furosemide (Lasix) 20 mg DAILY IV Last administered on 01/12/17 08:33; Admin Dose 20 MG; Start 01/08/17 at 15:00 Haloperidol (Haldol) 1 mg Q8H PRN IM AGITATION Last administered on 01/09/17 12:23; Admin Dose 1 MG; Start 01/08/17 at 23:30 Quetiapine Fumarate (Seroquel) 75 mg BID PO Last administered on 01/12/17 08: 33; Admin Dose 75 MG; Start 01/11/17 at 21:00 Collagenase (Santyl) 1 applic DAILY TOP Last administered on 01/11/17 19:43; Admin Dose 1 APPLIC; Start 01/11/17 at 16:00 EZE LYLES Jan 12, 2017 10:40
--- NOTE | 2017-01-12 11:08 | CONS ---
Date/Time of Note Date/Time of Note DATE: 01/12/17 TIME: 11:05 Assessment/Plan Assessment/Plan Additional Assessment/Plan 1. Acute kidney injury, likely secondary to acute tubular necrosis in the setting of sepsis.-improved 2. Acute hypoxemic respiratory failure, multifactorial, secondary to sepsis and secondary to pulmonary congestion s/p extubation 3. Acute pulmonary edema with influenza pneumonia.- now improved 4. History of congestive heart failure with diastolic heart failure. 5. History of chronic obstructive pulmonary disease. 6. History of gastroesophageal reflux disease. 7. History of smoking. 8. 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 9. Hypomagnesemia , Hypokalemia - replaced, now normal today PLAN: making good urine, Creatinine slightly improving, Hematuria, urology following Electrolyes stable today will follow up this critical care note took greater than 45 min to complete Consultation Date/Type/Reason Admit Date/Time Dec 23, 2016 at 15:37 Initial Consult Date 12/23/16 Type of Consultation: NEPHROLOGY Referring Provider: BEN COURTNEY MD 24 HR Interval Summary Free Text/Dictation electrolytes stable, Cr improving, pt still required sitter Exam/Review of Systems Vital Signs Vitals Vital Signs Date Time Temp Pulse Resp B/P Pulse Ox O2 Delivery O2 Flow Rate FiO2 01/12/17 08:15 71 01/12/17 08:06 98.2 20 138/64 94 01/12/17 04:16 Room Air 01/10/17 20:00 2.0 01/08/17 16:39 28 Intake and Output 01/11/17 01/11/17 01/12/17 15:00 23:00 07:00 Intake Total 1295 ml 90 ml Output Total 500 ml 1300 ml Balance 795 ml -1210 ml Exam Gen [place]: alert, agitated CV: S1S2, no M/G/R Lungs: coarse breath sounds throughout all lung masters, diminished at the bases , with end expiratory wheezing Abd: soft, NT/ND, +BS, EXT: 1+ edema, no ecchymosis, no clubbing, FROM, muscle wasting noted + silveira catheter with blood in urine Results Result Diagram: 01/12/17 0602 01/12/17 0602 Results 24 hrs Laboratory Tests Test 01/11/17 19:00 01/12/17 06:02 Anion Gap 12 14 Blood Urea Nitrogen 20 19 Calcium Level 7.6 L 7.6 L Carbon Dioxide Level 29 28 Chloride Level 102 104 Creatinine 1.61 H 1.56 H Glucose Level 121 91 Hematocrit 28.0 #L 29.6 L Hemoglobin 9.5 #L 10.0 L Potassium Level 3.1 L 3.6 Sodium Level 140 142 Activated Partial Thromboplast Time 33.6 Alanine Aminotransferase (ALT/SGPT) 22 Albumin 2.7 L Albumin/Globulin Ratio 0.51 Alkaline Phosphatase 73 Aspartate Amino Transf (AST/SGOT) 36 Basophils # 0.0 Basophils % 0.0 D-Dimer 9728.29 H D-Dimer Comment Direct Bilirubin 0.00 Eosinophils # 0.2 Eosinophils % 0.9 Fibrinogen 231.0 # Globulin 5.20 H INR International Normalized Ratio 1.30 Indirect Bilirubin 0.5 Lymphocytes # 3.1 H Lymphocytes % 17.8 Mean Corpuscular Hemoglobin 29.4 Mean Corpuscular Hemoglobin Concent 33.8 Mean Corpuscular Volume 87.1 Mean Platelet Volume 11.4 H Monocytes # 9.8 H Monocytes % 57.3 H Neutrophils # 2.2 Neutrophils % 12.5 L Nucleated Red Blood Cells # 0.1 H Nucleated Red Blood Cells % 0.3 H Plasma Fibrin Degradation Products <10 Platelet Count 37 #L Prothrombin Time 16.3 H Prothrombin Time Ratio 1.3 Red Blood Count 3.40 #L Red Cell Distribution Width 16.8 H Thrombin Time 17.2 Total Bilirubin 0.5 Total Protein 7.9 White Blood Count 17.2 H Medications Medications Current Medications Ondansetron HCl (Zofran Inj) 4 mg Q6H PRN IV NAUSEA AND/OR VOMITING; Start 12/23 at 16:30 Nitroglycerin (Nitroglycerin (Sl Tab) 0.4 Mg) 1 tab Q5M PRN SL CHEST PAIN; Start 12/23/16 at 16:30 Acetaminophen (Tylenol Supp) 650 mg Q4H PRN [place] PAIN LEVEL 1-3 OR FEVER Last administered on 12/25/16 01:06; Admin Dose 650 MG; Start 12/23/16 at 16:30 Bisacodyl (Dulcolax) 5 mg DAILY PRN PO CONSTIPATION; Start 12/23/16 at 16:30 Pantoprazole (Protonix Iv) 40 mg DAILY@06 IV Last administered on 01/12/17 05: 31; Admin Dose 40 MG; Start 12/24/16 at 06:00 IV Flush 10 ml 10 ml PRN PRN IV IV PROTOCOL; Start 01/03/17 at 16:30 Metronidazole (Flagyl 500 Mg (Pmx)) 100 ml @ 100 mls/hr Q8 IVPB Last administered on 01/12/17 05:31; Admin Dose 100 MLS/HR; Start 01/04/17 at 14:00 Morphine Sulfate (morphine) 1 mg Q4H PRN IV PAIN LEVEL 7-10 Last administered on 01/08/17 22:19; Admin Dose 1 MG; Start 01/05/17 at 14:00 Lorazepam (Ativan) 2 mg Q1HWA PRN IV AGITATION Last administered on 01/09/17 06:27; Admin Dose 2 MG; Start 01/06/17 at 09:30 Quetiapine Fumarate (Seroquel) 25 mg QHS NGT Last administered on 01/06/17 21: 01; Admin Dose 25 MG; Start 01/06/17 at 21:00; Status Future Hold Metoprolol Tartrate (Lopressor) 25 mg BID PO Last administered on 01/12/17 08: 32; Admin Dose 25 MG; Start 01/08/17 at 21:00 Furosemide (Lasix) 20 mg DAILY IV Last administered on 01/12/17 08:33; Admin Dose 20 MG; Start 01/08/17 at 15:00 Haloperidol (Haldol) 1 mg Q8H PRN IM AGITATION Last administered on 01/09/17 12:23; Admin Dose 1 MG; Start 01/08/17 at 23:30 Quetiapine Fumarate (Seroquel) 75 mg BID PO Last administered on 01/12/17 08: 33; Admin Dose 75 MG; Start 01/11/17 at 21:00 Collagenase (Santyl) 1 applic DAILY TOP Last administered on 01/11/17 19:43; Admin Dose 1 APPLIC; Start 01/11/17 at 16:00 GILL PEREIRA MD Jan 12, 2017 11:08
--- NOTE | 2017-01-12 14:56 | CONS ---
Date/Time of Note Date/Time of Note DATE: 01/12/17 TIME: 14:55 Assessment/Plan Assessment/Plan Additional Assessment/Plan 1. Respiratory failure-improved s/p extubation - stable respiratory status. MUCH BETTER NOW. 2. Cardiomyopathy with decreased left ventricular ejection fraction, last being approximately 45% to 50% by echo 11/2016. No indication for ICD. 3. Hypotension, borderline- better now, will monitor closely - NO Change - SINUS ON TELE now. 4. Influenza positive- con't Rx - supportive. 5. History of chronic myelogenous leukemia- oncology to follow. 6. Renal failure-slowly improving. 7. Thrombocytopenia, severe - no active bleeding noted 8. Anemia- H/H stable, no bleed. 9. Leukocytosis. 10.CHF-systolic and diastolic acute on chronic- con't to keep euvolemic. BETTER FLUID STATUS. 11.Positive troponin-likely demand event. Now trended negative Consultation Date/Type/Reason Admit Date/Time Dec 23, 2016 at 15:37 Initial Consult Date 12/24/16 Type of Consultation: NEPHROLOGY Referring Provider: BEN COURTNEY MD 24 HR Interval Summary Free Text/Dictation NO acute change - BP stable - con't Rx - no significant ectopy on tele. ROS: No fever, no chills, no nausea, no vomiting, no diarrhea/constipation No recent weight changes No chest pain, no PND, no orthopnea No dizziness, blurred vision No thirst, no heat or cold intolerance Exam/Review of Systems Vital Signs Vitals Vital Signs Date Time Temp Pulse Resp B/P Pulse Ox O2 Delivery O2 Flow Rate FiO2 01/12/17 12:26 75 01/12/17 11:56 98.1 20 106/58 93 01/12/17 04:16 Room Air 01/10/17 20:00 2.0 01/08/17 16:39 28 Intake and Output 01/11/17 01/11/17 01/12/17 15:00 23:00 07:00 Intake Total 1295 ml 90 ml Output Total 500 ml 1300 ml Balance 795 ml -1210 ml Exam General: WN/WD/NAD, AOx 2-3 HEENT: Unicetric/atraumatic/EOMI (follow commands) NECK: JVD elevated, no thyromegaly Lymph: no lymphadenopathy HEART: regular with no S3, II/ systolic murmur at apex LUNGS: Coarse sounds ABD: soft, NT, ND, +BS : Intact Neuro: non focal SKIN: chronic changes EXT: trace edema Results Result Diagram: 01/12/17 0602 01/12/17 0602 Results 24 hrs Laboratory Tests Test 01/11/17 19:00 01/12/17 06:02 Anion Gap 12 14 Blood Urea Nitrogen 20 19 Calcium Level 7.6 L 7.6 L Carbon Dioxide Level 29 28 Chloride Level 102 104 Creatinine 1.61 H 1.56 H Glucose Level 121 91 Hematocrit 28.0 #L 29.6 L Hemoglobin 9.5 #L 10.0 L Potassium Level 3.1 L 3.6 Sodium Level 140 142 Activated Partial Thromboplast Time 33.6 Alanine Aminotransferase (ALT/SGPT) 22 Albumin 2.7 L Albumin/Globulin Ratio 0.51 Alkaline Phosphatase 73 Aspartate Amino Transf (AST/SGOT) 36 Basophils # 0.0 Basophils % 0.0 D-Dimer 9728.29 H D-Dimer Comment Direct Bilirubin 0.00 Eosinophils # 0.2 Eosinophils % 0.9 Fibrinogen 231.0 # Globulin 5.20 H INR International Normalized Ratio 1.30 Indirect Bilirubin 0.5 Lymphocytes # 3.1 H Lymphocytes % 17.8 Mean Corpuscular Hemoglobin 29.4 Mean Corpuscular Hemoglobin Concent 33.8 Mean Corpuscular Volume 87.1 Mean Platelet Volume 11.4 H Monocytes # 9.8 H Monocytes % 57.3 H Neutrophils # 2.2 Neutrophils % 12.5 L Nucleated Red Blood Cells # 0.1 H Nucleated Red Blood Cells % 0.3 H Plasma Fibrin Degradation Products <10 Platelet Count 37 #L Prothrombin Time 16.3 H Prothrombin Time Ratio 1.3 Red Blood Count 3.40 #L Red Cell Distribution Width 16.8 H Thrombin Time 17.2 Total Bilirubin 0.5 Total Protein 7.9 White Blood Count 17.2 H Medications Medications Current Medications Ondansetron HCl (Zofran Inj) 4 mg Q6H PRN IV NAUSEA AND/OR VOMITING; Start 12/23 at 16:30 Nitroglycerin (Nitroglycerin (Sl Tab) 0.4 Mg) 1 tab Q5M PRN SL CHEST PAIN; Start 12/23/16 at 16:30 Acetaminophen (Tylenol Supp) 650 mg Q4H PRN [place] PAIN LEVEL 1-3 OR FEVER Last administered on 12/25/16 01:06; Admin Dose 650 MG; Start 12/23/16 at 16:30 Bisacodyl (Dulcolax) 5 mg DAILY PRN PO CONSTIPATION; Start 12/23/16 at 16:30 Pantoprazole (Protonix Iv) 40 mg DAILY@06 IV Last administered on 01/12/17 05: 31; Admin Dose 40 MG; Start 12/24/16 at 06:00 IV Flush 10 ml 10 ml PRN PRN IV IV PROTOCOL; Start 01/03/17 at 16:30 Metronidazole (Flagyl 500 Mg (Pmx)) 100 ml @ 100 mls/hr Q8 IVPB Last administered on 01/12/17 13:05; Admin Dose 100 MLS/HR; Start 01/04/17 at 14:00 Morphine Sulfate (morphine) 1 mg Q4H PRN IV PAIN LEVEL 7-10 Last administered on 01/08/17 22:19; Admin Dose 1 MG; Start 01/05/17 at 14:00 Lorazepam (Ativan) 2 mg Q1HWA PRN IV AGITATION Last administered on 01/09/17 06:27; Admin Dose 2 MG; Start 01/06/17 at 09:30 Quetiapine Fumarate (Seroquel) 25 mg QHS NGT Last administered on 01/06/17 21: 01; Admin Dose 25 MG; Start 01/06/17 at 21:00; Status Future Hold Metoprolol Tartrate (Lopressor) 25 mg BID PO Last administered on 01/12/17 08: 32; Admin Dose 25 MG; Start 01/08/17 at 21:00 Furosemide (Lasix) 20 mg DAILY IV Last administered on 01/12/17 08:33; Admin Dose 20 MG; Start 01/08/17 at 15:00 Haloperidol (Haldol) 1 mg Q8H PRN IM AGITATION Last administered on 01/09/17 12:23; Admin Dose 1 MG; Start 01/08/17 at 23:30 Quetiapine Fumarate (Seroquel) 75 mg BID PO Last administered on 01/12/17 08: 33; Admin Dose 75 MG; Start 01/11/17 at 21:00 Collagenase (Santyl) 1 applic DAILY TOP Last administered on 01/12/17 09:00; Admin Dose 1 APPLIC; Start 01/11/17 at 16:00 GONZALO MURCIA MD Jan 12, 2017 14:56
--- NOTE | 2017-01-12 15:29 | PN ---
DATE: 01/12/2017 SUBJECTIVE: Complaint is gross hematuria. The patient has thrombocytopenia and he may have been pu lling on the catheter as well, as he pulled his IV before. Presently the urine is clear and the pat ient is comfortable. His son is at his bedside and the patient is relaxed and not confused. OBJECTIVE FINDING: VITAL SIGNS: Temperature 98.1. The blood pressure 106/58, pulse is 77, respiration 20. ABDOMEN: Abdomen is soft, not distended. The Leyva catheter is draining clear urine. There is no bleeding at the present. LABORATORY DATA: CBC shows a white count of 17.2, hemoglobin 10.0, hematocrit 29.6. His platelet c ount, however, still low. It was 45,000 and then it was repeated and it was 37,000. The BUN is 19, creatinine 1.56. Electrolytes are normal. The urine culture no growth after 48 hours. IMPRESSION: Gross hematuria that has cleared as his platelet count improved and no pulling on the c atheter. Therefore, the plan is to remove the Leyva catheter and hopefully he will be able to urina te and no more bleeding. Dictated By: WILFRID ROBERTS/RADHA Conf#: [id number] DID#: [id number]
--- NOTE | 2017-01-12 16:14 | SP ---
DATE OF PROCEDURE: 01/11/2017 INDICATION: A 71-year-old gentleman with intermittent confusion. DESCRIPTION OF PROCEDURE: Routine EEG was recorded digitally. [id number] and [id number] evelin ages were recorded and reviewed. All impedances were measured and recorded. Cap electrodes were pl aced in accordance with International 10-20 system of electrode placement. FINDINGS: Symmetrically distributed background activity of low to medium amplitude ranging in frequ ency in the awake state between 8-10 cycles per second. Photic stimulation produced no definite dri ving. When the patient gets drowsy and falls asleep, background rhythm gets slightly less organized . Occasional vertex waves were observed, and background rhythm became slightly slower, 4-6 cycles p er second. No epileptiform transients were seen. No signs of ongoing electrographic seizures or la teralized slowing. IMPRESSION: Normal study. Please correlate clinically. Dictated By: GLORIA ROBBINS/RADHA Conf#: [id number] DID#: [id number]
[2017-01-13 02:34] VITALS: BP 122/62; RESP 14
[2017-01-13 05:59] LABS: ADD SCAN DIFF NO
[2017-01-13] MEDS: PANTOPRAZOLE 40 MG INJ IV SCH (06:01)
[2017-01-13] MEDS: metroNIDAZOLE 500 MG/NS (PMX) 100 ML IVPB SCH (06:01)
[2017-01-13 06:11] LABS: ABNORMAL IP MESSAGE 1; HEMATOCRIT 31.1 % (42.0-52.0); HEMOGLOBIN 10.4 g/dl (14.0-18.0); MEAN CORPUSCULAR HEMOGLOBIN 29.4 pg (29.0-33.0); MEAN CORPUSCULAR HGB CONC 33.4 g/dl (32.0-37.0); MEAN CORPUSCULAR VOLUME 87.9 fl (82.0-101.0); MEAN PLATELET VOLUME 10.6 fl (7.4-10.4); RED BLOOD COUNT 3.54 10^6/ul (4.70-6.10); RED CELL DISTRIBUTION WIDTH 16.8 % (11.5-14.5); WHITE BLOOD COUNT 23.1 10^3/ul (4.8-10.8)
[2017-01-13 06:16] LABS: INR 1.37; PROTIME 16.9 Sec (12.2-14.2); PT RATIO 1.3
[2017-01-13 06:17] LABS: PARTIAL THROMBOPLASTIN TIME 34.4 Sec (25.0-35.0)
[2017-01-13 06:32] LABS: ALBUMIN 2.9 g/dl (3.3-4.9)
[2017-01-13 06:33] LABS: PLATELET COUNT 29 10^3/UL (140-415); POTASSIUM 3.3 mmol/L (3.5-5.1)
[2017-01-13 06:35] LABS: ALBUMIN/GLOBULIN RATIO 0.5; BILIRUBIN,INDIRECT 0.5 mg/dl (0-1.1); BILIRUBIN,TOTAL 0.5 mg/dl (0.2-1.3); CREATININE 1.55 mg/dl (0.61-1.24); TOTAL PROTEIN 8.6 g/dl (6.1-8.1)
[2017-01-13 06:36] LABS: CALCIUM 7.8 mg/dl (8.4-10.2)
[2017-01-13 07:14] VITALS: BP 143/66; RESP 18
[2017-01-13 07:52] LABS: EOSINOPHILS # 0.5 10^3/ul (0.0-0.5); LYMPHOCYTES # 5.3 10^3/ul (0.8-2.9); MONOCYTE # 12.9 10^3/ul (0.3-0.9); MYELOCYTES # 1.2; NEUTROPHIL # 2.3 10^3/ul (1.6-7.5)
--- NOTE | 2017-01-13 08:53 | PN ---
DATE: SUBJECTIVE: Gross hematuria. The patient has thrombocytopenia. The patient yesterday had clear ur ine and therefore the Leyva catheter was removed and then the patient has been voiding. It was note d that on his diaper there was some blood. OBJECTIVE VITAL SIGNS: The patient is afebrile. Temperature is 98.6, pulse 82, respiration 18, blood pressur e 143/66. GENERAL: The patient does not speak [place]ian. ABDOMEN: Soft. There was no tenderness. GENITOURINARY: On the diaper that he had, he had some blood stain. Therefore, I went ahead and gav e him the urinal and asked him to urinate, and indeed he did urinate about [address] The first few [address] ops where bloody, but then the urine was perfectly yellow clear. , the patient is bleeding fro m his urethra rather than from his bladder and that is probably because of the trauma caused by pull ing on the Leyva catheter before, but it seems he is able to urinate on his own. LABORATORY DATA: His is a white count is 23.1. His platelet count is 29,000. Platelet count has g one down. Still yesterday it was 45,000. Then, 37,000 and today it is 29,000. That certainly is n ot helping to stop the bleeding that he gets. IMPRESSION: The patient does not need a Leyva catheter, all that he needs is basically a higher philippe telet count to try to control and stop his bleeding. We shall watch him and if he continues to blee d, he may need to have platelet transfusions. Dictated By: WILFRID ROBERTS/RADHA Conf#: [id number] DID#: [id number]
[2017-01-13] MEDS: METOPROLOL 25 MG TAB PO SCH ×2 (09:07→20:14)
[2017-01-13] MEDS: FUROSEMIDE 20 MG INJ IV SCH (09:07)
[2017-01-13] MEDS: QUETIAPINE 25 MG TAB PO SCH ×2 (09:07→20:13)
[2017-01-13] MEDS: COLLAGENASE 30 GM TUBE TOP SCH (09:08)
--- NOTE | 2017-01-13 09:33 | CONS ---
Date/Time of Note Date/Time of Note DATE: 01/13/17 TIME: 09:32 Assessment/Plan Assessment/Plan Additional Assessment/Plan 1. Respiratory failure-improved s/p extubation - stable respiratory status. MUCH BETTER NOW. 2. Cardiomyopathy with decreased left ventricular ejection fraction, last being approximately 45% to 50% by echo 11/2016. No indication for ICD. 3. Hypotension, borderline- better now, will monitor closely - NO Change - SINUS prior - off TELE now. 4. Influenza positive- con't Rx - supportive. 5. History of chronic myelogenous leukemia- oncology to follow. 6. Renal failure-BETTER, good urine output. . 7. Thrombocytopenia, severe - no active bleeding noted 8. Anemia- H/H stable, no bleed. 9. Leukocytosis. 10.CHF-systolic and diastolic acute on chronic- con't to keep euvolemic. BETTER FLUID STATUS. 11.Positive troponin-likely demand event. Now trended negative Consultation Date/Type/Reason Admit Date/Time Dec 23, 2016 at 15:37 Initial Consult Date 12/24/16 Type of Consultation: NEPHROLOGY Referring Provider: BEN COURTNEY MD 24 HR Interval Summary Free Text/Dictation NO acute events. Better overall. NO CP. OFF tele now. ROS: No fever, no chills, no nausea, no vomiting, no diarrhea/constipation No recent weight changes No chest pain, no PND, no orthopnea No dizziness, blurred vision No thirst, no heat or cold intolerance Exam/Review of Systems Vital Signs Vitals Vital Signs Date Time Temp Pulse Resp B/P Pulse Ox O2 Delivery O2 Flow Rate FiO2 01/13/17 07:14 98.6 82 18 143/66 0 01/12/17 19:56 Room Air 01/10/17 20:00 2.0 Intake and Output 01/12/17 01/12/17 01/13/17 15:00 23:00 07:00 Intake Total 100 ml 400 ml 560 ml Output Total 1250 ml 1100 ml Balance 100 ml -850 ml -540 ml Exam General: WN/WD/NAD, AOx 2-3 HEENT: Unicetric/atraumatic/EOMI (follow commands) NECK: JVD elevated, no thyromegaly Lymph: no lymphadenopathy HEART: regular with no S3, II/ systolic murmur at apex LUNGS: Coarse sounds ABD: soft, NT, ND, +BS : Intact Neuro: non focal SKIN: chronic changes EXT: trace edema Results Result Diagram: 01/13/17 0538 01/13/17 0538 Results 24 hrs Laboratory Tests Test 01/13/17 05:38 Activated Partial Thromboplast Time 34.4 Alanine Aminotransferase (ALT/SGPT) 17 Albumin 2.9 L Albumin/Globulin Ratio 0.50 Alkaline Phosphatase 86 Anion Gap 15 Aspartate Amino Transf (AST/SGOT) 32 Basophils # Basophils % Blast Cells % 3.0 H Blastocytes # 0.7 Blood Urea Nitrogen 18 Calcium Level 7.8 L Carbon Dioxide Level 26 Chloride Level 103 Creatinine 1.55 H Differential Comment MANUAL DIFF Direct Bilirubin 0.00 Eosinophils # 0.5 Eosinophils % 2.0 Globulin 5.70 H Glucose Level 117 Hematocrit 31.1 L Hemoglobin 10.4 L INR International Normalized Ratio 1.37 Indirect Bilirubin 0.5 Lymphocytes # 5.3 H Lymphocytes % 23.0 Mean Corpuscular Hemoglobin 29.4 Mean Corpuscular Hemoglobin Concent 33.4 Mean Corpuscular Volume 87.9 Mean Platelet Volume 10.6 H Metamyelocytes # 0.2 Metamyelocytes % 1.0 H Monocytes # 12.9 H Monocytes % 56.0 H Myelocytes # 1.2 Myelocytes % 5.0 H Neutrophils # 2.3 Neutrophils % 10.0 L Nucleated Red Blood Cells # Nucleated Red Blood Cells % Platelet Count 29 #*L Potassium Level 3.3 L Prothrombin Time 16.9 H Prothrombin Time Ratio 1.3 Red Blood Count 3.54 L Red Cell Distribution Width 16.8 H Sodium Level 141 Total Bilirubin 0.5 Total Protein 8.6 H White Blood Count 23.1 #H Medications Medications Current Medications Ondansetron HCl (Zofran Inj) 4 mg Q6H PRN IV NAUSEA AND/OR VOMITING; Start 12/23 at 16:30 Nitroglycerin (Nitroglycerin (Sl Tab) 0.4 Mg) 1 tab Q5M PRN SL CHEST PAIN; Start 12/23/16 at 16:30 Acetaminophen (Tylenol Supp) 650 mg Q4H PRN [place] PAIN LEVEL 1-3 OR FEVER Last administered on 12/25/16t 01:06; Admin Dose 650 MG; Start 12/23/16 at 16:30 Bisacodyl (Dulcolax) 5 mg DAILY PRN PO CONSTIPATION; Start 12/23/16 at 16:30 Pantoprazole (Protonix Iv) 40 mg DAILY@06 IV Last administered on 01/13/17 06: 01; Admin Dose 40 MG; Start 12/24/16 at 06:00 IV Flush 10 ml 10 ml PRN PRN IV IV PROTOCOL; Start 01/03/17 at 16:30 Metronidazole (Flagyl 500 Mg (Pmx)) 100 ml @ 100 mls/hr Q8 IVPB Last administered on 01/13/17 06:01; Admin Dose 100 MLS/HR; Start 01/04/17 at 14:00 Morphine Sulfate (morphine) 1 mg Q4H PRN IV PAIN LEVEL 7-10 Last administered on 01/08/17 22:19; Admin Dose 1 MG; Start 01/05/17 at 14:00 Lorazepam (Ativan) 2 mg Q1HWA PRN IV AGITATION Last administered on 01/09/17 06:27; Admin Dose 2 MG; Start 01/06/17 at 09:30 Metoprolol Tartrate (Lopressor) 25 mg BID PO Last administered on 01/13/17 09: 07; Admin Dose 25 MG; Start 01/08/17 at 21:00 Furosemide (Lasix) 20 mg DAILY IV Last administered on 01/13/17 09:07; Admin Dose 20 MG; Start 01/08/17 at 15:00 Haloperidol (Haldol) 1 mg Q8H PRN IM AGITATION Last administered on 01/09/17 12:23; Admin Dose 1 MG; Start 01/08/17 at 23:30 Quetiapine Fumarate (Seroquel) 75 mg BID PO Last administered on 01/13/17 09: 07; Admin Dose 75 MG; Start 01/11/17 at 21:00 Collagenase (Santyl) 1 applic DAILY TOP Last administered on 01/13/17 09:08; Admin Dose 1 APPLIC; Start 01/11/17 at 16:00 GONZALO MURCIA MD Jan 13, 2017 09:33
--- NOTE | 2017-01-13 10:07 | PN ---
Date/Time of Note Date/Time of Note DATE: 01/13/17 TIME: 10:01 Assessment/Plan VTE Prophylaxis VTE Prophylaxis Intervention: contraindicated, SCD's VTE Contraindication Reason: thrombocytopenia Lines/Catheters IV [facility] Type ([facility] PICC Line Central line still needed: Yes Urinary Cath still in place: No Assessment/Plan Chief Complaint/Hosp Course Assessment/Plan 71 yo male with a past medical history of CML on chemotherapy, MDS, GERD, COPD, anemia of chronic disease, who presents with acute shortness of breath sec to + influenza. * Encephalopathy (Acute): per family patient was alert / oriented and functioning prior to admission / Still requiring restraints / this is likely new baseline - Continue seroquel / Begin to wean sitter * Sepsis - 2/2 to Influenza / PNA : both resolved - monitor - Patient remains off all abx * Acute Hypoxemic Resp failure 2/2 PNA and CHF: Improved / now extubated and stable on NC * -Continue supportive care + Strict aspiration precautions * CMML / MDS +Pulmonary nodules ?mets * Severe Anemia 2/2 MDS : Has had 9units PRBCs so far, H/H stable * monitor * Severe Platelet refractory thrombocytopenia : Has also had 7 units platelets so far / Nose bleeds have resolved, plts = 37 today * Acute Renal failure : Resolved / Cr WNL * monitor, Optimize electrolytes * CHF-systolic and diastolic acute on chronic : compensated * NSTEMI type 2 :med mgt * COPD : stable * Dysphagia 2/2 encephalopathy * - Cleared for Puree diet by ST * Cardiomyopathy with decreased left ventricular ejection fraction, last being approximately 45% to 50% by echo 11/2016. * Hematuria :likely 2/2 Leyva trauma from patient pulling +Thrombocytopenia - appears to be resolving now * - monitor PROPHYLAXIS: IV PPI / SCDs Problems: Subjective 24 Hr Interval Summary Free Text/Dictation Per nursing, no hematuria. Still requiring 1:1 sitter. Less appetite. Exam/Review of Systems Vital Signs Vitals Vital Signs Date Time Temp Pulse Resp B/P Pulse Ox O2 Delivery O2 Flow Rate FiO2 01/13/17 07:14 98.6 82 18 143/66 0 01/12/17 19:56 Room Air 01/10/17 20:00 2.0 Intake and Output 01/12/17 01/12/17 01/13/17 15:00 23:00 07:00 Intake Total 100 ml 400 ml 560 ml Output Total 1250 ml 1100 ml Balance 100 ml -850 ml -540 ml Exam Constitutional: alert, frail, other (calm) Psych: confusion (occ) Head: atraumatic, normocephalic Eyes: PERRL ENMT: mucosa pink and moist Neck: supple Respiratory: clear to auscultation, diminished breath sounds Cardiovascular: regular rate and rhythm, No murmurs/extra sounds Gastrointestinal: bowel sounds, non-tender, soft Extremities: No edema Neurological: confused Results Result Diagram: 01/13/1738 01/13/1738 Results 24 hrs Laboratory Tests Test 01/13/17 05:38 Activated Partial Thromboplast Time 34.4 Alanine Aminotransferase (ALT/SGPT) 17 Albumin 2.9 L Albumin/Globulin Ratio 0.50 Alkaline Phosphatase 86 Anion Gap 15 Aspartate Amino Transf (AST/SGOT) 32 Basophils # Basophils % Blast Cells % 3.0 H Blastocytes # 0.7 Blood Urea Nitrogen 18 Calcium Level 7.8 L Carbon Dioxide Level 26 Chloride Level 103 Creatinine 1.55 H Differential Comment MANUAL DIFF Direct Bilirubin 0.00 Eosinophils # 0.5 Eosinophils % 2.0 Globulin 5.70 H Glucose Level 117 Hematocrit 31.1 L Hemoglobin 10.4 L INR International Normalized Ratio 1.37 Indirect Bilirubin 0.5 Lymphocytes # 5.3 H Lymphocytes % 23.0 Mean Corpuscular Hemoglobin 29.4 Mean Corpuscular Hemoglobin Concent 33.4 Mean Corpuscular Volume 87.9 Mean Platelet Volume 10.6 H Metamyelocytes # 0.2 Metamyelocytes % 1.0 H Monocytes # 12.9 H Monocytes % 56.0 H Myelocytes # 1.2 Myelocytes % 5.0 H Neutrophils # 2.3 Neutrophils % 10.0 L Nucleated Red Blood Cells # Nucleated Red Blood Cells % Platelet Count 29 #*L Potassium Level 3.3 L Prothrombin Time 16.9 H Prothrombin Time Ratio 1.3 Red Blood Count 3.54 L Red Cell Distribution Width 16.8 H Sodium Level 141 Total Bilirubin 0.5 Total Protein 8.6 H White Blood Count 23.1 #H Medications Medications Current Medications Ondansetron HCl (Zofran Inj) 4 mg Q6H PRN IV NAUSEA AND/OR VOMITING; Start 12/23 at 16:30 Nitroglycerin (Nitroglycerin (Sl Tab) 0.4 Mg) 1 tab Q5M PRN SL CHEST PAIN; Start 12/23/16 at 16:30 Acetaminophen (Tylenol Supp) 650 mg Q4H PRN [place] PAIN LEVEL 1-3 OR FEVER Last administered on 12/25/16 01:06; Admin Dose 650 MG; Start 12/23/16 at 16:30 Bisacodyl (Dulcolax) 5 mg DAILY PRN PO CONSTIPATION; Start 12/23/16 at 16:30 Pantoprazole (Protonix Iv) 40 mg DAILY@06 IV Last administered on 01/13/17 06: 01; Admin Dose 40 MG; Start 12/24/16 at 06:00 IV Flush (NS 10 ml) 10 ml PRN PRN IV IV PROTOCOL; Start 01/03/17 at 16:30 Morphine Sulfate (morphine) 1 mg Q4H PRN IV PAIN LEVEL 7-10 Last administered on 01/08/17 22:19; Admin Dose 1 MG; Start 01/05/17 at 14:00 Lorazepam (Ativan) 2 mg Q1HWA PRN IV AGITATION Last administered on 01/09/17 06:27; Admin Dose 2 MG; Start 01/06/17 at 09:30 Metoprolol Tartrate (Lopressor) 25 mg BID PO Last administered on 01/13/17 09: 07; Admin Dose 25 MG; Start 01/08/17 at 21:00 Furosemide (Lasix) 20 mg DAILY IV Last administered on 01/13/17 09:07; Admin Dose 20 MG; Start 01/08/17 at 15:00 Haloperidol (Haldol) 1 mg Q8H PRN IM AGITATION Last administered on 01/09/17 12:23; Admin Dose 1 MG; Start 01/08/17 at 23:30 Quetiapine Fumarate (Seroquel) 75 mg BID PO Last administered on 01/13/17 09: 07; Admin Dose 75 MG; Start 01/11/17 at 21:00 Collagenase (Santyl) 1 applic DAILY TOP Last administered on 01/13/17 09:08; Admin Dose 1 APPLIC; Start 01/11/17 at 16:00 ANA RATLIFF Jan 13, 2017 10:07
--- NOTE | 2017-01-13 12:41 | CONS ---
Date/Time of Note Date/Time of Note DATE: 01/13/17 TIME: 12:40 Assessment/Plan Assessment/Plan Chief Complaint/Hosp Course SUBJECTIVE: No events overnight. The patient is alert, looks comfortable. No fevers. INDWELLINGS: Leyva, PICC line placed on 01/03/2017. PHYSICAL EXAMINATION: GENERAL: Fragile, elderly man in no distress. HEENT: Head atraumatic, normocephalic. Sclerae anicteric. Buccal mucosa dry. NECK: Supple, trachea midline. CHEST: Rise symmetrical. Breath sounds diminished to bases. HEART: S1, S2. ABDOMEN: Soft, bowel sounds present. EXTREMITIES: Without cyanosis, multiple ecchymosis. ASSESSMENT: 1. Resolving sepsis, status post pneumonia. 2. Status post respiratory failure. 3. Status post influenza A virus, treated with repeat influenza swab on 2016 negative. 4. Persistent leukocytosis with anemia and thrombocytopenia secondary to myelodysplastic syndrome and chronic myelogenous leukemia. 5. Encephalopathy. 6. Diarrhea==> s/p empiric Flagyl. PLAN: The patient remains stable off abx, continue anti-aspiration measures. Art cx prn DW staff Problems: Consultation Date/Type/Reason Admit Date/Time Dec 23, 2016 at 15:37 Initial Consult Date 12/24/16 Type of Consultation: id Referring Provider: BEN COURTNEY MD Exam/Review of Systems Vital Signs Vitals Vital Signs Date Time Temp Pulse Resp B/P Pulse Ox O2 Delivery O2 Flow Rate FiO2 01/13/17 07:14 98.6 82 18 143/66 0 01/12/17 19:56 Room Air 01/10/17 20:00 2.0 Intake and Output 01/12/17 01/12/17 01/13/17 15:00 23:00 07:00 Intake Total 100 ml 400 ml 560 ml Output Total 1250 ml 1100 ml Balance 100 ml -850 ml -540 ml Results Result Diagram: 01/13/17 0538 01/13/1738 Results 24 hrs Laboratory Tests Test 01/13/17 05:38 Activated Partial Thromboplast Time 34.4 Alanine Aminotransferase (ALT/SGPT) 17 Albumin 2.9 L Albumin/Globulin Ratio 0.50 Alkaline Phosphatase 86 Anion Gap 15 Aspartate Amino Transf (AST/SGOT) 32 Basophils # Basophils % Blast Cells % 3.0 H Blastocytes # 0.7 Blood Urea Nitrogen 18 Calcium Level 7.8 L Carbon Dioxide Level 26 Chloride Level 103 Creatinine 1.55 H Differential Comment MANUAL DIFF Direct Bilirubin 0.00 Eosinophils # 0.5 Eosinophils % 2.0 Globulin 5.70 H Glucose Level 117 Hematocrit 31.1 L Hemoglobin 10.4 L INR International Normalized Ratio 1.37 Indirect Bilirubin 0.5 Lymphocytes # 5.3 H Lymphocytes % 23.0 Mean Corpuscular Hemoglobin 29.4 Mean Corpuscular Hemoglobin Concent 33.4 Mean Corpuscular Volume 87.9 Mean Platelet Volume 10.6 H Metamyelocytes # 0.2 Metamyelocytes % 1.0 H Monocytes # 12.9 H Monocytes % 56.0 H Myelocytes # 1.2 Myelocytes % 5.0 H Neutrophils # 2.3 Neutrophils % 10.0 L Nucleated Red Blood Cells # Nucleated Red Blood Cells % Platelet Count 29 #*L Potassium Level 3.3 L Prothrombin Time 16.9 H Prothrombin Time Ratio 1.3 Red Blood Count 3.54 L Red Cell Distribution Width 16.8 H Sodium Level 141 Total Bilirubin 0.5 Total Protein 8.6 H White Blood Count 23.1 #H Medications Medications Current Medications Ondansetron HCl (Zofran Inj) 4 mg Q6H PRN IV NAUSEA AND/OR VOMITING; Start 12/23 at 16:30 Nitroglycerin (Nitroglycerin (Sl Tab) 0.4 Mg) 1 tab Q5M PRN SL CHEST PAIN; Start 12/23/16 at 16:30 Acetaminophen (Tylenol Supp) 650 mg Q4H PRN [place] PAIN LEVEL 1-3 OR FEVER Last administered on 12/25/16 01:06; Admin Dose 650 MG; Start 12/23/16 at 16:30 Bisacodyl (Dulcolax) 5 mg DAILY PRN PO CONSTIPATION; Start 12/23/16 at 16:30 Pantoprazole (Protonix Iv) 40 mg DAILY@06 IV Last administered on 01/13/17 06: 01; Admin Dose 40 MG; Start 12/24/16 at 06:00 IV Flush (NS 10 ml) 10 ml PRN PRN IV IV PROTOCOL; Start 01/03/17 at 16:30 Morphine Sulfate (morphine) 1 mg Q4H PRN IV PAIN LEVEL 7-10 Last administered on 01/08/17 22:19; Admin Dose 1 MG; Start 01/05/17 at 14:00 Lorazepam (Ativan) 2 mg Q1HWA PRN IV AGITATION Last administered on 01/09/17 06:27; Admin Dose 2 MG; Start 01/06/17 at 09:30 Metoprolol Tartrate (Lopressor) 25 mg BID PO Last administered on 01/13/17 09: 07; Admin Dose 25 MG; Start 01/08/17 at 21:00 Furosemide (Lasix) 20 mg DAILY IV Last administered on 01/13/17 09:07; Admin Dose 20 MG; Start 01/08/17 at 15:00 Haloperidol (Haldol) 1 mg Q8H PRN IM AGITATION Last administered on 01/09/17 12:23; Admin Dose 1 MG; Start 01/08/17 at 23:30 Quetiapine Fumarate (Seroquel) 75 mg BID PO Last administered on 01/13/17 09: 07; Admin Dose 75 MG; Start 01/11/17 at 21:00 Collagenase (Santyl) 1 applic DAILY TOP Last administered on 01/13/17 09:08; Admin Dose 1 APPLIC; Start 01/11/17 at 16:00 DARLENE CARTAGENA NP Jan 13, 2017 12:41
--- NOTE | 2017-01-13 16:31 | PN ---
DATE: 01/13/2017 HISTORY OF PRESENT ILLNESS: This is a hematology/oncology progress note. Mr. Townsend has now been transferred to floor care out of the intensive care unit. He is in no respiratory distress at this time. PHYSICAL EXAMINATION: VITAL SIGNS: Temperature 98.6, pulse 82, respirations 18, blood pressure 143/63. Pulse oximetry is 93% on room air. SKIN: Pale. Scattered ecchymosis, no petechiae or rashes. HEENT: No mucosal lesions. No scleral icterus. NECK: Supple, no jugular venous distention or thyroid enlargement. CHEST: Clear to auscultation and percussion. No rhonchi, wheezes, rales or rubs. NODES: No palpable lymphadenopathy. ABDOMEN: Flat and soft. Spleen is palpable approximately 4 cm below the left costal margin in the anterior axillary line. EXTREMITIES: No clubbing or cyanosis. LABORATORY DATA: White count today is 23,100 with an absolute neutrophil count of 2300. Monocyte c ount was 12,900. Hemoglobin 10.4, hematocrit 31.1 and a platelet count of 94,000. Sodium 141, pota ssium 3.3, creatinine 1.55. DISCUSSION: The patient has had recovery from his respiratory complications related to the influen za. It is unclear at this time whether any further therapy is indicated. The patient has already b een treated with lenalidomide as well as azacitidine. It is unclear whether any benefit could be obtained through the use of another hypomethylating agent such as decitabine. The only other option would be an aggressive induction chemotherapy as the treatment of acute myelog enous leukemia. We will discuss this further with the patient and family. Dictated By: OPAL MOSES MD, SR/RADHA Conf#: [id number] DID#: [id number]
--- NOTE | 2017-01-13 16:42 | RADRPT ---
PROCEDURE: US guidance for PICC line CLINICAL INDICATION: PICC line placement TECHNIQUE: Multiple real-time images were acquired of the patient's arm utilizing a high resolutio n transducer. This was performed by the PICC line nurse for venous access. COMPARISON: None FINDINGS: Ultrasound guidance for PICC line placement. IMPRESSION: Ultrasound guidance for PICC line placement. RPTAT: AA .Jose Dunn MD, MD Date Time Electronically viewed and signed by .Jose Dunn MD, on 01/13/2017 16:42 .S/
--- NOTE | 2017-01-13 17:34 | CONS ---
Date/Time of Note Date/Time of Note DATE: 01/13/17 TIME: 17:30 Assessment/Plan Assessment/Plan Additional Assessment/Plan 1. Acute kidney injury, likely secondary to acute tubular necrosis in the setting of sepsis.-improved 2. Acute hypoxemic respiratory failure, multifactorial, secondary to sepsis and secondary to pulmonary congestion s/p extubation 3. Acute pulmonary edema with influenza pneumonia.- now improved 4. History of congestive heart failure with diastolic heart failure. 5. History of chronic obstructive pulmonary disease. 6. History of gastroesophageal reflux disease. 7. History of smoking. 8. 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 9. Hypomagnesemia , Hypokalemia - replaced, now normal today PLAN: K 3.3, Cr 1.5 KCl 20 mE Q IV x 1 dose now making good urine, Creatinine slightly improving, Hematuria, urology following Bp stable will follow up Consultation Date/Type/Reason Admit Date/Time Dec 23, 2016 at 15:37 Initial Consult Date 12/23/16 Type of Consultation: NEPHROLOGY Referring Provider: BEN COURTNEY MD 24 HR Interval Summary Free Text/Dictation k low, Cr 1.5 Exam/Review of Systems Vital Signs Vitals Vital Signs Date Time Temp Pulse Resp B/P Pulse Ox O2 Delivery O2 Flow Rate FiO2 01/13/17 07:14 98.6 82 18 143/66 0 01/12/17 19:56 Room Air 01/10/17 20:00 2.0 Intake and Output 01/12/17 01/12/17 01/13/17 15:00 23:00 07:00 Intake Total 100 ml 400 ml 560 ml Output Total 1250 ml 1100 ml Balance 100 ml -850 ml -540 ml Exam Gen [place]: alert, agitated CV: S1S2, no M/G/R Lungs: coarse breath sounds throughout all lung masters, diminished at the bases , with end expiratory wheezing Abd: soft, NT/ND, +BS, EXT: 1+ edema, no ecchymosis, no clubbing, FROM, muscle wasting noted + silveira catheter with blood in urine Results Result Diagram: 01/13/1738 01/13/17537 Results 24 hrs Laboratory Tests Test 01/13/17 05:38 Activated Partial Thromboplast Time 34.4 Alanine Aminotransferase (ALT/SGPT) 17 Albumin 2.9 L Albumin/Globulin Ratio 0.50 Alkaline Phosphatase 86 Anion Gap 15 Aspartate Amino Transf (AST/SGOT) 32 Basophils # Basophils % Blast Cells % 3.0 H Blastocytes # 0.7 Blood Urea Nitrogen 18 Calcium Level 7.8 L Carbon Dioxide Level 26 Chloride Level 103 Creatinine 1.55 H Differential Comment MANUAL DIFF Direct Bilirubin 0.00 Eosinophils # 0.5 Eosinophils % 2.0 Globulin 5.70 H Glucose Level 117 Hematocrit 31.1 L Hemoglobin 10.4 L INR International Normalized Ratio 1.37 Indirect Bilirubin 0.5 Lymphocytes # 5.3 H Lymphocytes % 23.0 Mean Corpuscular Hemoglobin 29.4 Mean Corpuscular Hemoglobin Concent 33.4 Mean Corpuscular Volume 87.9 Mean Platelet Volume 10.6 H Metamyelocytes # 0.2 Metamyelocytes % 1.0 H Monocytes # 12.9 H Monocytes % 56.0 H Myelocytes # 1.2 Myelocytes % 5.0 H Neutrophils # 2.3 Neutrophils % 10.0 L Nucleated Red Blood Cells # Nucleated Red Blood Cells % Platelet Count 29 #*L Potassium Level 3.3 L Prothrombin Time 16.9 H Prothrombin Time Ratio 1.3 Red Blood Count 3.54 L Red Cell Distribution Width 16.8 H Sodium Level 141 Total Bilirubin 0.5 Total Protein 8.6 H White Blood Count 23.1 #H Medications Medications Current Medications Ondansetron HCl (Zofran Inj) 4 mg Q6H PRN IV NAUSEA AND/OR VOMITING; Start 12/23 at 16:30 Nitroglycerin (Nitroglycerin (Sl Tab) 0.4 Mg) 1 tab Q5M PRN SL CHEST PAIN; Start 12/23/16 at 16:30 Acetaminophen (Tylenol Supp) 650 mg Q4H PRN [place] PAIN LEVEL 1-3 OR FEVER Last administered on 12/25/16 01:06; Admin Dose 650 MG; Start 12/23/16 at 16:30 Bisacodyl (Dulcolax) 5 mg DAILY PRN PO CONSTIPATION; Start 12/23/16 at 16:30 IV Flush (NS 10 ml) 10 ml PRN PRN IV IV PROTOCOL; Start 01/03/17 at 16:30 Morphine Sulfate (morphine) 1 mg Q4H PRN IV PAIN LEVEL 7-10 Last administered on 01/08/17 22:19; Admin Dose 1 MG; Start 01/05/17 at 14:00 Lorazepam (Ativan) 2 mg Q1HWA PRN IV AGITATION Last administered on 01/09/17 06:27; Admin Dose 2 MG; Start 01/06/17 at 09:30 Metoprolol Tartrate (Lopressor) 25 mg BID PO Last administered on 01/13/17 09: 07; Admin Dose 25 MG; Start 01/08/17 at 21:00 Furosemide (Lasix) 20 mg DAILY IV Last administered on 01/13/17 09:07; Admin Dose 20 MG; Start 01/08/17 at 15:00 Haloperidol (Haldol) 1 mg Q8H PRN IM AGITATION Last administered on 01/09/17 12:23; Admin Dose 1 MG; Start 01/08/17 at 23:30 Quetiapine Fumarate (Seroquel) 75 mg BID PO Last administered on 01/13/17 09: 07; Admin Dose 75 MG; Start 01/11/17 at 21:00 Collagenase (Santyl) 1 applic DAILY TOP Last administered on 01/13/17 09:08; Admin Dose 1 APPLIC; Start 01/11/17 at 16:00 Pantoprazole (Protonix Tab) 40 mg DAILY@06 PO ; Start 01/14/17 at 06:00 GILL PEREIRA MD Jan 13, 2017 17:34
[2017-01-13] MEDS ORDERED: POTASSIUM CHLORIDE 20 MEQ in SOD CHLORIDE 0.9% 100 ML IVPB ONE (18:00)
[2017-01-13 20:00] VITALS: BP 112/56; PULSE 78; RESP 18
[2017-01-14] MEDS: PANTOPRAZOLE (EC) 40 MG TAB PO SCH (06:28)
[2017-01-14 07:43] VITALS: BP 174/64; RESP 18
--- NOTE | 2017-01-14 08:44 | CONS ---
Date/Time of Note Date/Time of Note DATE: 01/14/17 TIME: 08:43 Assessment/Plan Assessment/Plan Additional Assessment/Plan 1. Acute kidney injury, likely secondary to acute tubular necrosis in the setting of sepsis.-improved 2. Acute hypoxemic respiratory failure, multifactorial, secondary to sepsis and secondary to pulmonary congestion s/p extubation 3. Acute pulmonary edema with influenza pneumonia.- now improved 4. History of congestive heart failure with diastolic heart failure. 5. History of chronic obstructive pulmonary disease. 6. History of gastroesophageal reflux disease. 7. History of smoking. 8. 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 9. Hypomagnesemia , Hypokalemia - replaced, now normal today PLAN: No labs today to review, Cr was normal yestreday, K was replaced yesterday making good urine,Hematuria, urology following Bp stable will follow up Consultation Date/Type/Reason Admit Date/Time Dec 23, 2016 at 15:37 Initial Consult Date 12/23/16 Type of Consultation: NEPHROLOGY Referring Provider: BEN COURTNEY MD 24 HR Interval Summary Free Text/Dictation No labs today, K was low yesterday and it was replaced, Doing ok, on sitter Exam/Review of Systems Vital Signs Vitals Vital Signs Date Time Temp Pulse Resp B/P Pulse Ox O2 Delivery O2 Flow Rate FiO2 01/14/17 07:43 98.0 76 18 174/64 93 01/13/17 20:00 Room Air 01/10/17 20:00 2.0 Intake and Output 01/13/17 01/13/17 01/14/17 15:00 23:00 07:00 Intake Total 100 ml 1330 ml 250 ml Output Total 900 ml 1000 ml Balance 100 ml 430 ml -750 ml Exam Gen [place]: alert, agitated CV: S1S2, no M/G/R Lungs: coarse breath sounds throughout all lung masters, diminished at the bases , with end expiratory wheezing Abd: soft, NT/ND, +BS, EXT: 1+ edema, no ecchymosis, no clubbing, FROM, muscle wasting noted + silveira catheter with blood in urine Results Result Diagram: 01/13/1738 01/13/17537 Medications Medications Current Medications Ondansetron HCl (Zofran Inj) 4 mg Q6H PRN IV NAUSEA AND/OR VOMITING; Start 12/23 at 16:30 Nitroglycerin (Nitroglycerin (Sl Tab) 0.4 Mg) 1 tab Q5M PRN SL CHEST PAIN; Start 12/23/16 at 16:30 Acetaminophen (Tylenol Supp) 650 mg Q4H PRN [place] PAIN LEVEL 1-3 OR FEVER Last administered on 12/25/16 01:06; Admin Dose 650 MG; Start 12/23/16 at 16:30 Bisacodyl (Dulcolax) 5 mg DAILY PRN PO CONSTIPATION; Start 12/23/16 at 16:30 IV Flush (NS 10 ml) 10 ml PRN PRN IV IV PROTOCOL; Start 01/03/17 at 16:30 Morphine Sulfate (morphine) 1 mg Q4H PRN IV PAIN LEVEL 7-10 Last administered on 01/08/17 22:19; Admin Dose 1 MG; Start 01/05/17 at 14:00 Lorazepam (Ativan) 2 mg Q1HWA PRN IV AGITATION Last administered on 01/09/17 06:27; Admin Dose 2 MG; Start 01/06/17 at 09:30 Metoprolol Tartrate (Lopressor) 25 mg BID PO Last administered on 01/13/17 20: 14; Admin Dose 25 MG; Start 01/08/17 at 21:00 Furosemide (Lasix) 20 mg DAILY IV Last administered on 01/13/17 09:07; Admin Dose 20 MG; Start 01/08/17 at 15:00 Haloperidol (Haldol) 1 mg Q8H PRN IM AGITATION Last administered on 01/09/17 12:23; Admin Dose 1 MG; Start 01/08/17 at 23:30 Quetiapine Fumarate (Seroquel) 75 mg BID PO Last administered on 01/13/17 20: 13; Admin Dose 75 MG; Start 01/11/17 at 21:00 Collagenase (Santyl) 1 applic DAILY TOP Last administered on 01/13/17 09:08; Admin Dose 1 APPLIC; Start 01/11/17 at 16:00 Pantoprazole (Protonix Tab) 40 mg DAILY@06 PO Last administered on 01/14/17 06 :28; Admin Dose 40 MG; Start 01/14/17 at 06:00 GILL PEREIRA MD Jan 14, 2017 08:44
[2017-01-14] MEDS: COLLAGENASE 30 GM TUBE TOP SCH (09:00)
--- NOTE | 2017-01-14 09:24 | PN ---
Date/Time of Note Date/Time of Note DATE: 01/14/17 TIME: 09:20 Assessment/Plan VTE Prophylaxis VTE Prophylaxis Intervention: contraindicated, SCD's VTE Contraindication Reason: thrombocytopenia Lines/Catheters IV Catheter Type (from [facility]): PICC Line Central line still needed: Yes Urinary Cath still in place: No Assessment/Plan Chief Complaint/Hosp Course Assessment/Plan 71 yo male with a past medical history of CML on chemotherapy, MDS, GERD, COPD, anemia of chronic disease, who presents with acute shortness of breath sec to + influenza. * Encephalopathy (Acute): per family patient was alert / oriented and functioning prior to admission / Still requiring 1:1 sitter / this is likely new baseline - Continue seroquel / wean sitter if possible * Sepsis - 2/2 to Influenza / PNA : both resolved - monitor - Patient remains off all abx * Acute Hypoxemic Resp failure 2/2 PNA and CHF: Improved / now extubated and stable on RA * -Continue supportive care + Strict aspiration precautions * CMML / MDS +Pulmonary nodules ?mets - f/u CBC daily and Heme/Onc rec's * Severe Anemia 2/2 MDS : Has had 9units PRBCs so far, H/H stable * monitor * Severe Platelet refractory thrombocytopenia : Has also had 7 units platelets so far / Nose bleeds have resolved, plts = 37 -> 29 * - monitor, transfuse per Heme/Onc rec's * Acute Renal failure : Resolved / Cr WNL * monitor, Optimize electrolytes * CHF-systolic and diastolic acute on chronic : compensated * NSTEMI type 2 :med mgt * COPD : stable * Dysphagia 2/2 encephalopathy * - Cleared for Puree diet by ST * Cardiomyopathy with decreased left ventricular ejection fraction, last being approximately 45% to 50% by echo 11/2016. * Hematuria :likely 2/2 Leyva trauma from patient pulling +Thrombocytopenia - appears to be resolving now * - monitor PROPHYLAXIS: IV PPI / SCDs Problems: Subjective 24 Hr Interval Summary Free Text/Dictation No acute events overnight. Exam/Review of Systems Vital Signs Vitals Vital Signs Date Time Temp Pulse Resp B/P Pulse Ox O2 Delivery O2 Flow Rate FiO2 01/14/17 07:43 98.0 76 18 174/64 93 01/13/17 20:00 Room Air 01/10/17 20:00 2.0 Intake and Output 201/13/17 01/14/17 15:00 23:00 07:00 Intake Total 100 ml 1330 ml 250 ml Output Total 900 ml 1000 ml Balance 100 ml 430 ml -750 ml Exam Constitutional: alert, frail, other (calm) Psych: confusion (occ) Head: atraumatic, normocephalic Eyes: PERRL ENMT: mucosa pink and moist Neck: supple Respiratory: clear to auscultation, diminished breath sounds Cardiovascular: regular rate and rhythm, No murmurs/extra sounds Gastrointestinal: bowel sounds, non-tender, soft Extremities: No edema Neurological: confused Results Result Diagram: 01/13/1738 01/13/17537 Medications Medications Current Medications Ondansetron HCl (Zofran Inj) 4 mg Q6H PRN IV NAUSEA AND/OR VOMITING; Start 12/23 at 16:30 Nitroglycerin (Nitroglycerin (Sl Tab) 0.4 Mg) 1 tab Q5M PRN SL CHEST PAIN; Start 12/23/16 at 16:30 Acetaminophen (Tylenol Supp) 650 mg Q4H PRN [place] PAIN LEVEL 1-3 OR FEVER Last administered on 12/25/16 01:06; Admin Dose 650 MG; Start 12/23/16 at 16:30 Bisacodyl (Dulcolax) 5 mg DAILY PRN PO CONSTIPATION; Start 12/23/16 at 16:30 IV Flush (NS 10 ml) 10 ml PRN PRN IV IV PROTOCOL; Start 01/03/17 at 16:30 Morphine Sulfate (morphine) 1 mg Q4H PRN IV PAIN LEVEL 7-10 Last administered on 01/08/17 22:19; Admin Dose 1 MG; Start 01/05/17 at 14:00 Lorazepam (Ativan) 2 mg Q1HWA PRN IV AGITATION Last administered on 01/09/17 06:27; Admin Dose 2 MG; Start 01/06/17 at 09:30 Metoprolol Tartrate (Lopressor) 25 mg BID PO Last administered on 01/13/17 20: 14; Admin Dose 25 MG; Start 01/08/17 at 21:00 Furosemide (Lasix) 20 mg DAILY IV Last administered on 01/13/17 09:07; Admin Dose 20 MG; Start 01/08/17 at 15:00 Haloperidol (Haldol) 1 mg Q8H PRN IM AGITATION Last administered on 01/09/17 12:23; Admin Dose 1 MG; Start 01/08/17 at 23:30 Quetiapine Fumarate (Seroquel) 75 mg BID PO Last administered on 01/13/17 20: 13; Admin Dose 75 MG; Start 01/11/17 at 21:00 Collagenase (Santyl) 1 applic DAILY TOP Last administered on 01/13/17 09:08; Admin Dose 1 APPLIC; Start 01/11/17 at 16:00 Pantoprazole (Protonix Tab) 40 mg DAILY@06 PO Last administered on 01/14/17 06 :28; Admin Dose 40 MG; Start 01/14/17 at 06:00 ANA RATLIFF Jan 14, 2017 09:24
[2017-01-14] MEDS: FUROSEMIDE 20 MG INJ IV SCH (09:34)
[2017-01-14] MEDS: QUETIAPINE 25 MG TAB PO SCH ×2 (09:35→21:05)
[2017-01-14] MEDS: METOPROLOL 25 MG TAB PO SCH ×2 (09:35→21:06)
[2017-01-14] MEDS ORDERED: POTASSIUM CHLORIDE 250 ML IVPB ONE (10:00)
--- NOTE | 2017-01-14 13:03 | CONS ---
Date/Time of Note Date/Time of Note DATE: 01/14/17 TIME: 13:01 Assessment/Plan Assessment/Plan Additional Assessment/Plan 1. Respiratory failure-improved s/p extubation - stable respiratory status. MUCH BETTER NOW. 2. Cardiomyopathy with decreased left ventricular ejection fraction, last being approximately 45% to 50% by echo 11/2016. No indication for ICD. Stable fluid status. 3. Hypotension, borderline- better now, will monitor closely - NO Change - SINUS prior - off TELE now. 4. Influenza positive- con't Rx - supportive. 5. History of chronic myelogenous leukemia- oncology to follow. Hem-onc to follow. 6. Renal failure-BETTER, good urine output. . 7. Thrombocytopenia, severe - no active bleeding noted 8. Anemia- H/H stable, no bleed. 9. Leukocytosis. 10.CHF-systolic and diastolic acute on chronic- con't to keep euvolemic. BETTER FLUID STATUS. 11.Positive troponin-likely demand event. Now trended negative - no intervened planned. Consultation Date/Type/Reason Admit Date/Time Dec 23, 2016 at 15:37 Initial Consult Date 12/24/16 Type of Consultation: NEPHROLOGY Referring Provider: BEN COURTNEY MD 24 HR Interval Summary Free Text/Dictation NO acute change - stable fluid status - off tele now. ROS: No fever, no chills, no nausea, no vomiting, no diarrhea/constipation No recent weight changes No chest pain, no PND, no orthopnea No dizziness, blurred vision No thirst, no heat or cold intolerance Exam/Review of Systems Vital Signs Vitals Vital Signs Date Time Temp Pulse Resp B/P Pulse Ox O2 Delivery O2 Flow Rate FiO2 01/14/17 07:43 98.0 76 18 174/64 93 01/13/17 20:00 Room Air 01/10/17 20:00 2.0 Intake and Output 01/13/17 01/13/17 01/14/17 15:00 23:00 07:00 Intake Total 100 ml 1330 ml 250 ml Output Total 900 ml 1000 ml Balance 100 ml 430 ml -750 ml Exam General: WN/WD/NAD, AOx 2-3 HEENT: Unicetric/atraumatic/EOMI (follows commands) NECK: JVD elevated, no thyromegaly Lymph: no lymphadenopathy HEART: regular with no S3, II/ systolic murmur at apex LUNGS: Coarse sounds ABD: soft, NT, ND, +BS : Intact Neuro: non focal SKIN: chronic changes EXT: trace edema Results Result Diagram: 01/13/1753701/13/17537 Medications Medications Current Medications Ondansetron HCl (Zofran Inj) 4 mg Q6H PRN IV NAUSEA AND/OR VOMITING; Start 12/23 at 16:30 Nitroglycerin (Nitroglycerin (Sl Tab) 0.4 Mg) 1 tab Q5M PRN SL CHEST PAIN; Start 12/23/16 at 16:30 Acetaminophen (Tylenol Supp) 650 mg Q4H PRN [place] PAIN LEVEL 1-3 OR FEVER Last administered on 12/25/16 01:06; Admin Dose 650 MG; Start 12/23/16 at 16:30 Bisacodyl (Dulcolax) 5 mg DAILY PRN PO CONSTIPATION; Start 12/23/16 at 16:30 IV Flush (NS 10 ml) 10 ml PRN PRN IV IV PROTOCOL; Start 01/03/17 at 16:30 Morphine Sulfate (morphine) 1 mg Q4H PRN IV PAIN LEVEL 7-10 Last administered on 01/08/17 22:19; Admin Dose 1 MG; Start 01/05/17 at 14:00 Lorazepam (Ativan) 2 mg Q1HWA PRN IV AGITATION Last administered on 01/09/17 06:27; Admin Dose 2 MG; Start 01/06/17 at 09:30 Metoprolol Tartrate (Lopressor) 25 mg BID PO Last administered on 01/14/17 09: 35; Admin Dose 25 MG; Start 01/08/17 at 21:00 Furosemide (Lasix) 20 mg DAILY IV Last administered on 01/14/17 09:34; Admin Dose 20 MG; Start 01/08/17 at 15:00 Haloperidol (Haldol) 1 mg Q8H PRN IM AGITATION Last administered on 01/09/17 12:23; Admin Dose 1 MG; Start 01/08/17 at 23:30 Quetiapine Fumarate (Seroquel) 75 mg BID PO Last administered on 01/14/17 09: 35; Admin Dose 75 MG; Start 01/11/17 at 21:00 Collagenase (Santyl) 1 applic DAILY TOP Last administered on 01/13/17 09:08; Admin Dose 1 APPLIC; Start 01/11/17 at 16:00 Pantoprazole 40 mg 40 mg DAILY@06 PO Last administered on 01/14/17 06:28; Admin Dose 40 MG; Start 01/14/17 at 06:00 Potassium Chloride (KCl 40 MEQ/250 ML NS) 250 ml @ 62.5 mls/hr ONCE ONCE IVPB Last administered on 01/14/17 11:58; Admin Dose 62.5 MLS/HR; Start 01/14/17 at 10:00; Stop 01/14/17 at 13:59 GONZALO MURCIA MD Jan 14, 2017 13:03
--- NOTE | 2017-01-14 13:37 | PN ---
Date/Time of Note Date/Time of Note DATE: 01/14/17 TIME: 13:35 Assessment/Plan VTE Prophylaxis VTE Prophylaxis Intervention: ambulation Lines/Catheters IV Catheter Type (from Nrsg): PICC Line Central line still needed: Yes Urinary Cath still in place: No Assessment/Plan Assessment/Plan Pt is doing better in recovering from pneumonia but it is not clear that further chemotherapy is feasible. Dr. Pryor will be talking to family about whether further chemotherapy is warranted. Subjective 24 Hr Interval Summary Free Text/Dictation Pt is sitting in a chair. He appears comfortable but is not very communicative. Exam/Review of Systems Vital Signs Vitals Vital Signs Date Time Temp Pulse Resp B/P Pulse Ox O2 Delivery O2 Flow Rate FiO2 01/14/17 07:43 98.0 76 18 174/64 93 01/13/17 20:00 Room Air 01/10/17 20:00 2.0 Intake and Output 01/13/17 01/13/17 01/14/17 15:00 23:00 07:00 Intake Total 100 ml 1330 ml 250 ml Output Total 900 ml 1000 ml Balance 100 ml 430 ml -750 ml Exam Constitutional: alert Psych: no complaints Head: normocephalic ENMT: nl external ears & nose Neck: supple Respiratory: clear to auscultation Cardiovascular: regular rate and rhythm Gastrointestinal: soft Results Result Diagram: 01/13/1738 01/13/1738 Medications Medications Current Medications Ondansetron HCl (Zofran Inj) 4 mg Q6H PRN IV NAUSEA AND/OR VOMITING; Start 12/23 at 16:30 Nitroglycerin (Nitroglycerin (Sl Tab) 0.4 Mg) 1 tab Q5M PRN SL CHEST PAIN; Start 12/23/16 at 16:30 Acetaminophen (Tylenol Supp) 650 mg Q4H PRN [place] PAIN LEVEL 1-3 OR FEVER Last administered on 12/25/16t 01:06; Admin Dose 650 MG; Start 12/23/16 at 16:30 Bisacodyl (Dulcolax) 5 mg DAILY PRN PO CONSTIPATION; Start 12/23/16 at 16:30 IV Flush (NS 10 ml) 10 ml PRN PRN IV IV PROTOCOL; Start 01/03/17 at 16:30 Morphine Sulfate (morphine) 1 mg Q4H PRN IV PAIN LEVEL 7-10 Last administered on 01/08/17 22:19; Admin Dose 1 MG; Start 01/05/17 at 14:00 Lorazepam (Ativan) 2 mg Q1HWA PRN IV AGITATION Last administered on 01/09/17 06:27; Admin Dose 2 MG; Start 01/06/17 at 09:30 Metoprolol Tartrate (Lopressor) 25 mg BID PO Last administered on 01/14/17 09: 35; Admin Dose 25 MG; Start 01/08/17 at 21:00 Furosemide (Lasix) 20 mg DAILY IV Last administered on 01/14/17 09:34; Admin Dose 20 MG; Start 01/08/17 at 15:00 Haloperidol (Haldol) 1 mg Q8H PRN IM AGITATION Last administered on 01/09/17 12:23; Admin Dose 1 MG; Start 01/08/17 at 23:30 Quetiapine Fumarate (Seroquel) 75 mg BID PO Last administered on 01/14/17 09: 35; Admin Dose 75 MG; Start 01/11/17 at 21:00 Collagenase (Santyl) 1 applic DAILY TOP Last administered on 01/13/17 09:08; Admin Dose 1 APPLIC; Start 01/11/17 at 16:00 Pantoprazole 40 mg 40 mg DAILY@06 PO Last administered on 01/14/17 06:28; Admin Dose 40 MG; Start 01/14/17 at 06:00 Potassium Chloride (KCl 40 MEQ/250 ML NS) 250 ml @ 62.5 mls/hr ONCE ONCE IVPB Last administered on 01/14/17 11:58; Admin Dose 62.5 MLS/HR; Start 01/14/17 at 10:00; Stop 01/14/17 at 13:59 GONZALO MCDONALD MD Jan 14, 2017 13:37
[2017-01-14] MEDS: LORAZEPAM 2 MG INJ IV PRN ×2 (14:20→21:13)
[2017-01-14 20:00] VITALS: BP 120/68; RESP 19
[2017-01-15] MEDS: PANTOPRAZOLE (EC) 40 MG TAB PO SCH (06:00)
[2017-01-15 07:29] VITALS: BP 121/66; RESP 18
--- NOTE | 2017-01-15 08:33 | CONS ---
Date/Time of Note Date/Time of Note DATE: 01/15/17 TIME: 08:31 Assessment/Plan Assessment/Plan Additional Assessment/Plan 1. Acute kidney injury, likely secondary to acute tubular necrosis in the setting of sepsis.-improved 2. Acute hypoxemic respiratory failure, multifactorial, secondary to sepsis and secondary to pulmonary congestion s/p extubation - stable 3. Acute pulmonary edema with influenza pneumonia.- now improved 4. History of congestive heart failure with diastolic heart failure. 5. History of chronic obstructive pulmonary disease. 6. History of gastroesophageal reflux disease. 7. History of smoking. 8. 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 9. Hypomagnesemia , Hypokalemia - replaced PLAN: No labs today to review, will order AM labs for tomorrow making good urine,Hematuria, urology following Bp stable will follow up Consultation Date/Type/Reason Admit Date/Time Dec 23, 2016 at 15:37 Initial Consult Date 12/23/16 Type of Consultation: NEPHROLOGY Reason for Consultation Acute kidney injury, Hypokalemia Referring Provider: BEN COURTNEY MD 24 HR Interval Summary Free Text/Dictation pt remained stable, required sitter, no labs today to review Exam/Review of Systems Vital Signs Vitals Vital Signs Date Time Temp Pulse Resp B/P Pulse Ox O2 Delivery O2 Flow Rate FiO2 01/15/17 07:29 98.0 84 18 121/66 94 01/13/17 20:00 Room Air Intake and Output 01/14/17 01/14/17 01/15/17 15:00 23:00 07:00 Intake Total 840 ml 120 ml Output Total 400 ml Balance 440 ml 120 ml Exam Gen [place]: alert, agitated CV: S1S2, no M/G/R Lungs: coarse breath sounds throughout all lung masters, diminished at the bases , with end expiratory wheezing Abd: soft, NT/ND, +BS, EXT: 1+ edema, no ecchymosis, no clubbing, FROM, muscle wasting noted + silveira catheter Results Result Diagram: 01/13/17 0538 01/13/17 0538 Medications Medications Current Medications Ondansetron HCl (Zofran Inj) 4 mg Q6H PRN IV NAUSEA AND/OR VOMITING; Start 12/23 at 16:30 Nitroglycerin (Nitroglycerin (Sl Tab) 0.4 Mg) 1 tab Q5M PRN SL CHEST PAIN; Start 12/23/16 at 16:30 Acetaminophen (Tylenol Supp) 650 mg Q4H PRN [place] PAIN LEVEL 1-3 OR FEVER Last administered on 12/25/16 01:06; Admin Dose 650 MG; Start 12/23/16 at 16:30 Bisacodyl (Dulcolax) 5 mg DAILY PRN PO CONSTIPATION; Start 12/23/16 at 16:30 IV Flush (NS 10 ml) 10 ml PRN PRN IV IV PROTOCOL; Start 01/03/17 at 16:30 Morphine Sulfate (morphine) 1 mg Q4H PRN IV PAIN LEVEL 7-10 Last administered on 01/08/17 22:19; Admin Dose 1 MG; Start 01/05/17 at 14:00 Lorazepam (Ativan) 2 mg Q1HWA PRN IV AGITATION Last administered on 01/14/17 21:13; Admin Dose 2 MG; Start 01/06/17 at 09:30 Metoprolol Tartrate (Lopressor) 25 mg BID PO Last administered on 01/14/17 21: 06; Admin Dose 25 MG; Start 01/08/17 at 21:00 Furosemide (Lasix) 20 mg DAILY IV Last administered on 01/14/17 09:34; Admin Dose 20 MG; Start 01/08/17 at 15:00 Haloperidol (Haldol) 1 mg Q8H PRN IM AGITATION Last administered on 01/09/17 12:23; Admin Dose 1 MG; Start 01/08/17 at 23:30 Quetiapine Fumarate (Seroquel) 75 mg BID PO Last administered on 01/14/17 21: 05; Admin Dose 75 MG; Start 01/11/17 at 21:00 Collagenase (Santyl) 1 applic DAILY TOP Last administered on 01/13/17 09:08; Admin Dose 1 APPLIC; Start 01/11/17 at 16:00 Pantoprazole (Protonix Tab) 40 mg DAILY@06 PO Last administered on 01/14/17 06 :28; Admin Dose 40 MG; Start 01/14/17 at 06:00 GILL PEREIRA MD Jan 15, 2017 08:33
[2017-01-15] MEDS: COLLAGENASE 30 GM TUBE TOP SCH (08:39)
[2017-01-15] MEDS: METOPROLOL 25 MG TAB PO SCH ×2 (08:39→20:48)
[2017-01-15] MEDS: QUETIAPINE 25 MG TAB PO SCH ×2 (08:39→20:48)
[2017-01-15] MEDS: FUROSEMIDE 20 MG INJ IV SCH (08:39)
--- NOTE | 2017-01-15 09:26 | PN ---
DATE: 01/15/2017 HEMATOLOGY PROGRESS NOTE SUBJECTIVE: The patient states he is feeling well. Denies chest pain, cough, or shortness of breat h. Have interviewed the patient with the help of an [place] barber. OBJECTIVE: VITAL SIGNS: Temperature 98, pulse 76 per minute and regular, respirations 18, blood pressure 120/6 8, and pulse oximetry 99% on room air. SKIN: Scattered ecchymosis, no petechiae or rashes. HEENT: No mucosal lesions. No scleral icterus. NECK: Supple, no jugular venous distention or thyroid enlargement. CHEST: Clear to auscultation and percussion. No rhonchi, wheezes, rales or rubs. NODES: No palpable lymphadenopathy in any lymph node bearing area. HEART: Regular sinus rhythm, no S3, S4 or murmurs. ABDOMEN: Soft. No masses or ascites. Spleen is still palpable 4 cm below the left costal margin i n the anterior axillary line. EXTREMITIES: No clubbing, edema, or cyanosis. No palpable cords or Homans sign. NEUROLOGIC: Grossly normal. The barber feels that the patient is not confused. IMPRESSION 1. Respiratory failure secondary to influenza, resolved. 2. Myelodysplastic syndrome, chronic myelomonocytic leukemia. PLAN: The patient has had an excellent recovery. It is interesting that the patient's peripheral c ounts have also improved to some degree. Will need to consider as to whether this patient can be re sumed on lenalidomide. The patient did not have a sufficient trial of this medication before his re spiratory deterioration led to admission. Dictated By: OPAL MOSES MD, SR/RADHA Conf#: [id number] DID#: [id number]
--- NOTE | 2017-01-15 09:59 | PN ---
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 * Encephalopathy (Acute): per family patient was alert / oriented and functioning prior to admission / Still requiring 1:1 sitter / this is likely new baseline - Continue seroquel / Haldol prn, wean sitter if possible * Sepsis - 2/2 to Influenza / PNA : both resolved - monitor - Patient remains off all abx - monitor * Acute Hypoxemic Resp failure 2/2 PNA and CHF: Improved / now extubated and stable on RA * -Continue supportive care + Strict aspiration precautions * CMML / MDS +Pulmonary nodules ?mets - f/u CBC daily and Heme/Onc rec's * Severe Anemia 2/2 MDS : Has had 9units PRBCs so far, H/H stable * monitor * Severe Platelet refractory thrombocytopenia : Has also had 7 units platelets so far / Nose bleeds have resolved, plts = 37 -> 29 * - monitor, transfuse per Heme/Onc rec's, CBC from today = pending * Acute Renal failure : Resolved / Cr WNL * monitor, Optimize electrolytes * CHF-systolic and diastolic acute on chronic : compensated * NSTEMI type 2 :med mgt * COPD : stable * Dysphagia 2/2 encephalopathy * continue Puree diet * Cardiomyopathy with decreased left ventricular ejection fraction, last being approximately 45% to 50% by echo 11/2016. * Hematuria :likely 2/2 Leyva trauma from patient pulling +Thrombocytopenia - appears to be resolving now * - monitor PROPHYLAXIS: IV PPI / SCDs Problems: Subjective 24 Hr Interval Summary Free Text/Dictation Pt had code [place] yesterday (agitated), more calm today, still requiring 1:1 sitter. Exam/Review of Systems Vital Signs Vitals Vital Signs Date Time Temp Pulse Resp B/P Pulse Ox O2 Delivery O2 Flow Rate FiO2 01/15/17 07:29 98.0 84 18 121/66 94 01/13/17 20:00 Room Air Intake and Output 01/14/17 01/14/17 01/15/17 15:00 23:00 07:00 Intake Total 840 ml 120 ml Output Total 400 ml Balance 440 ml 120 ml Exam Constitutional: alert, frail, other (calm presently) Psych: confusion (occ) Head: atraumatic, normocephalic Eyes: PERRL ENMT: mucosa pink and moist Neck: supple Respiratory: clear to auscultation, diminished breath sounds Cardiovascular: regular rate and rhythm, No murmurs/extra sounds Gastrointestinal: bowel sounds, non-tender, soft Extremities: No edema Neurological: confused Results Result Diagram: 01/13/1753701/13/17537 Medications Medications Current Medications Ondansetron HCl (Zofran Inj) 4 mg Q6H PRN IV NAUSEA AND/OR VOMITING; Start 12/23 at 16:30 Nitroglycerin (Nitroglycerin (Sl Tab) 0.4 Mg) 1 tab Q5M PRN SL CHEST PAIN; Start 12/23/16 at 16:30 Acetaminophen (Tylenol Supp) 650 mg Q4H PRN [place] PAIN LEVEL 1-3 OR FEVER Last administered on 12/25/16 01:06; Admin Dose 650 MG; Start 12/23/16 at 16:30 Bisacodyl (Dulcolax) 5 mg DAILY PRN PO CONSTIPATION; Start 12/23/16 at 16:30 IV Flush (NS 10 ml) 10 ml PRN PRN IV IV PROTOCOL; Start 01/03/17 at 16:30 Morphine Sulfate (morphine) 1 mg Q4H PRN IV PAIN LEVEL 7-10 Last administered on 01/08/17 22:19; Admin Dose 1 MG; Start 01/05/17 at 14:00 Lorazepam (Ativan) 2 mg Q1HWA PRN IV AGITATION Last administered on 01/14/17 21:13; Admin Dose 2 MG; Start 01/06/17 at 09:30 Metoprolol Tartrate (Lopressor) 25 mg BID PO Last administered on 01/15/17 08: 39; Admin Dose 25 MG; Start 01/08/17 at 21:00 Furosemide (Lasix) 20 mg DAILY IV Last administered on 01/15/17 08:39; Admin Dose 20 MG; Start 01/08/17 at 15:00 Haloperidol (Haldol) 1 mg Q8H PRN IM AGITATION Last administered on 01/09/17 12:23; Admin Dose 1 MG; Start 01/08/17 at 23:30 Quetiapine Fumarate (Seroquel) 75 mg BID PO Last administered on 01/15/17 08:39 ; Admin Dose 75 MG; Start 01/11/17 at 21:00 Collagenase (Santyl) 1 applic DAILY TOP Last administered on 01/15/17 08:39; Admin Dose 1 APPLIC; Start 01/11/17 at 16:00 Pantoprazole (Protonix Tab) 40 mg DAILY@06 PO Last administered on 01/14/17 06 :28; Admin Dose 40 MG; Start 01/14/17 at 06:00 ANA RATLIFF Jan 15, 2017 09:59
--- NOTE | 2017-01-15 11:34 | CONS ---
Date/Time of Note Date/Time of Note DATE: 01/15/17 TIME: 11:30 Assessment/Plan Assessment/Plan Chief Complaint/Hosp Course IMPRESSION: 1. Respiratory failure-improved s/p extubation/stable 2. Cardiomyopathy with decreased left ventricular ejection fraction, last being approximately 45% to 50% by echo 11/2016.-reasonable volume status by exam today 3. Hypotension, borderline. 4. Influenza positive. 5. History of chronic myelogenous leukemia. 6. Renal failure-slowly improving. 7. Thrombocytopenia, severe. 8. Anemia. 9. Leukocytosis. 10.CHF-systolic and diastolic acute on chronic 11.Positive troponin-likely demand event. Now trended negative Recc: -Tele -serial ecg's -Continue abx's and f/u cx data -Follow volume status closely and continue gentle daily lasix -Follow for bleeding complications/need for platelet transfusion -Follow platelet count closely -Continue BB -Trend cardiac enzymes Problems: Consultation Date/Type/Reason Admit Date/Time Dec 23, 2016 at 15:37 Initial Consult Date 12/24/16 Type of Consultation: Cardiology Reason for Consultation cardiomyopathy Referring Provider: BEN COURTNEY MD Exam/Review of Systems Vital Signs Vitals Vital Signs Date Time Temp Pulse Resp B/P Pulse Ox O2 Delivery O2 Flow Rate FiO2 01/15/17 07:29 98.0 84 18 121/66 94 01/13/17 20:00 Room Air Intake and Output 01/14/17 01/14/17 01/15/17 15:00 23:00 07:00 Intake Total 840 ml 120 ml Output Total 400 ml Balance 440 ml 120 ml Exam Review of Systems: CONSTITUTIONAL: No fevers, chills. PULMONARY: No sob CARDIOVASCULAR: No chest pain/palpitations GASTROINTESTINAL: No nausea/vomiting. GENITOURINARY: No hematuria/dysuria. MUSCULOSKELETAL: No myagias/arthalgias. PSYCHIATRIC: The patient denies depression. NEUROLOGIC: Mild generalized weakness Constitutional: alert Psych: no complaints Head: normocephalic ENMT: mucosa pink and moist Neck: jvd, supple Respiratory: diminished breath sounds (at bases/B) Cardiovascular: regular rate and rhythm Gastrointestinal: non-tender, soft Musculoskeletal: muscle tone (normal) Extremities: edema (none) Neurological: other (No focal deficits) Results Result Diagram: 01/13/1738 01/13/1738 Medications Medications Current Medications Ondansetron HCl (Zofran Inj) 4 mg Q6H PRN IV NAUSEA AND/OR VOMITING; Start 12/23 at 16:30 Nitroglycerin (Nitroglycerin (Sl Tab) 0.4 Mg) 1 tab Q5M PRN SL CHEST PAIN; Start 12/23/16 at 16:30 Acetaminophen (Tylenol Supp) 650 mg Q4H PRN [place] PAIN LEVEL 1-3 OR FEVER Last administered on 12/25/16 01:06; Admin Dose 650 MG; Start 12/23/16 at 16:30 Bisacodyl (Dulcolax) 5 mg DAILY PRN PO CONSTIPATION; Start 12/23/16 at 16:30 IV Flush (NS 10 ml) 10 ml PRN PRN IV IV PROTOCOL; Start 01/03/17 at 16:30 Morphine Sulfate (morphine) 1 mg Q4H PRN IV PAIN LEVEL 7-10 Last administered on 01/08/17 22:19; Admin Dose 1 MG; Start 01/05/17 at 14:00 Lorazepam (Ativan) 2 mg Q1HWA PRN IV AGITATION Last administered on 01/14/17 21:13; Admin Dose 2 MG; Start 01/06/17 at 09:30 Metoprolol Tartrate (Lopressor) 25 mg BID PO Last administered on 01/15/17 08: 39; Admin Dose 25 MG; Start 01/08/17 at 21:00 Furosemide (Lasix) 20 mg DAILY IV Last administered on 01/15/17 08:39; Admin Dose 20 MG; Start 01/08/17 at 15:00 Haloperidol (Haldol) 1 mg Q8H PRN IM AGITATION Last administered on 01/09/17 12:23; Admin Dose 1 MG; Start 01/08/17 at 23:30 Quetiapine Fumarate (Seroquel) 75 mg BID PO Last administered on 01/15/17 08:39 ; Admin Dose 75 MG; Start 01/11/17 at 21:00 Collagenase (Santyl) 1 applic DAILY TOP Last administered on 01/15/17 08:39; Admin Dose 1 APPLIC; Start 01/11/17 at 16:00 Pantoprazole (Protonix Tab) 40 mg DAILY@06 PO Last administered on 2/28/17at 06 :28; Admin Dose 40 MG; Start 01/14/17 at 06:00 MILENA VELA Jan 15, 2017 11:34
[2017-01-15 12:18] LABS: ADD SCAN DIFF NO
[2017-01-15 12:21] LABS: ABNORMAL IP MESSAGE 1; HEMATOCRIT 29.9 % (42.0-52.0); HEMOGLOBIN 9.7 g/dl (14.0-18.0); MEAN CORPUSCULAR HEMOGLOBIN 29.3 pg (29.0-33.0); MEAN CORPUSCULAR HGB CONC 32.4 g/dl (32.0-37.0); MEAN CORPUSCULAR VOLUME 90.3 fl (82.0-101.0); RED BLOOD COUNT 3.31 10^6/ul (4.70-6.10); RED CELL DISTRIBUTION WIDTH 16.9 % (11.5-14.5)
[2017-01-15 12:33] LABS: PLATELET COUNT 14 10^3/UL (140-415)
[2017-01-15 12:37] LABS: POTASSIUM 3.9 mmol/L (3.5-5.1)
[2017-01-15 12:40] LABS: CREATININE 1.62 mg/dl (0.61-1.24)
[2017-01-15 12:41] LABS: CALCIUM 7.9 mg/dl (8.4-10.2)
[2017-01-15 13:32] LABS: EOSINOPHILS # 0.2 10^3/ul (0.0-0.5); MONOCYTE # 7.8 10^3/ul (0.3-0.9); MYELOCYTES # 1.4; NEUTROPHIL # 2.6 10^3/ul (1.6-7.5)
[2017-01-15 20:00] VITALS: BP 113/50; PULSE 82; RESP 18
[2017-01-16] MEDS: PANTOPRAZOLE (EC) 40 MG TAB PO SCH (05:50)
[2017-01-16 06:12] LABS: ADD SCAN DIFF NO
[2017-01-16 06:32] LABS: INR 1.2; PROTIME 15.3 Sec (12.2-14.2); PT RATIO 1.2
[2017-01-16 06:33] LABS: PARTIAL THROMBOPLASTIN TIME 32.1 Sec (25.0-35.0)
[2017-01-16 06:37] LABS: ABNORMAL IP MESSAGE 1; HEMATOCRIT 28.1 % (42.0-52.0); HEMOGLOBIN 9.1 g/dl (14.0-18.0); MEAN CORPUSCULAR HEMOGLOBIN 29.3 pg (29.0-33.0); MEAN CORPUSCULAR HGB CONC 32.4 g/dl (32.0-37.0); MEAN CORPUSCULAR VOLUME 90.4 fl (82.0-101.0); RED BLOOD COUNT 3.11 10^6/ul (4.70-6.10); RED CELL DISTRIBUTION WIDTH 16.9 % (11.5-14.5); WHITE BLOOD COUNT 21.4 10^3/ul (4.8-10.8)
[2017-01-16 06:38] LABS: MAGNESIUM 1.4 mg/dl (1.7-2.5); PHOSPHORUS 4.6 mg/dl (2.5-4.9)
[2017-01-16 06:40] LABS: CALCIUM 7.8 mg/dl (8.4-10.2); CREATININE 1.6 mg/dl (0.61-1.24)
[2017-01-16 06:58] LABS: PLATELET COUNT 10 10^3/UL (140-415)
[2017-01-16 07:35] VITALS: BP 106/58; RESP 20
[2017-01-16] MEDS: QUETIAPINE 25 MG TAB PO SCH ×2 (09:03→21:01)
[2017-01-16] MEDS: METOPROLOL 25 MG TAB PO SCH ×2 (09:03→21:00)
[2017-01-16] MEDS: FUROSEMIDE 20 MG INJ IV SCH (09:03)
[2017-01-16] MEDS: COLLAGENASE 30 GM TUBE TOP SCH (09:04)
[2017-01-16] MEDS ORDERED: SOD CHLORIDE 0.9% 250 ML IV* ONE (09:55)
--- NOTE | 2017-01-16 10:00 | PN ---
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 * Encephalopathy (Acute): per family patient was alert / oriented and functioning prior to admission / Still requiring 1:1 sitter / this is likely new baseline - Continue seroquel / Haldol prn, wean sitter if possible - for intermittitent agitation - will get tele psych consult today as well * Sepsis - 2/2 to Influenza / PNA : both resolved - monitor - Patient remains off all abx - monitor * Acute Hypoxemic Resp failure 2/2 PNA and CHF: Improved / now extubated and stable on RA * -Continue supportive care + Strict aspiration precautions * CMML / MDS +Pulmonary nodules ?mets - f/u CBC daily and Heme/Onc rec's * Severe Anemia 2/2 MDS : Has had 9units PRBCs so far, H/H stable * monitor * Severe Platelet refractory thrombocytopenia : Has also had 7 units platelets so far / Nose bleeds have resolved, plts = 37 -> 29 -> 10 * will order for plt transfusion today * monitor, continue further transfusion per Heme/Onc rec's * Acute Renal failure : Resolved / Cr WNL * monitor, Optimize electrolytes * CHF-systolic and diastolic acute on chronic : compensated * NSTEMI type 2 :med mgt * COPD : stable * Dysphagia 2/2 encephalopathy * continue Puree diet * Cardiomyopathy with decreased left ventricular ejection fraction, last being approximately 45% to 50% by echo 11/2016. * Hematuria : resolved - was likely 2/2 Leyva trauma from patient pulling + Thrombocytopenia * - monitor PROPHYLAXIS: IV PPI / SCDs Problems: Subjective 24 Hr Interval Summary Free Text/Dictation No acute events overnight, still with 1:1 sitter, no bleeding. Exam/Review of Systems Vital Signs Vitals Vital Signs Date Time Temp Pulse Resp B/P Pulse Ox O2 Delivery O2 Flow Rate FiO2 01/16/17 07:35 98.2 71 20 106/58 94 01/15/17 20:00 Room Air Intake and Output 01/15/17 01/15/17 01/16/17 15:00 23:00 07:00 Intake Total 200 ml Balance 200 ml Exam Constitutional: alert, frail, other (calm presently) Psych: confusion (occ) Head: atraumatic, normocephalic Eyes: PERRL ENMT: mucosa pink and moist Neck: supple Respiratory: clear to auscultation, diminished breath sounds Cardiovascular: regular rate and rhythm, No murmurs/extra sounds Gastrointestinal: bowel sounds, non-tender, soft Extremities: No edema Neurological: less confused Results Result Diagram: 01/16/17 0555 01/16/17 0555 Results 24 hrs Laboratory Tests Test 01/15/17 11:30 01/16/17 05:55 Anion Gap 13 15 Blast Cells % 2.0 H Blastocytes # 0.4 Blood Urea Nitrogen 19 25 H Calcium Level 7.9 L 7.8 L Carbon Dioxide Level 31 30 Chloride Level 99 98 Creatinine 1.62 H 1.60 H Eosinophils # 0.2 Eosinophils % 1.0 Glucose Level 123 96 Hematocrit 29.9 L 28.1 L Hemoglobin 9.7 L 9.1 L Lymphocytes # 7.0 H Lymphocytes % 35.0 Mean Corpuscular Hemoglobin 29.3 29.3 Mean Corpuscular Hemoglobin Concent 32.4 32.4 Mean Corpuscular Volume 90.3 90.4 Mean Platelet Volume Metamyelocytes # 0.6 Metamyelocytes % 3.0 H Monocytes # 7.8 H Monocytes % 39.0 H Myelocytes # 1.4 Myelocytes % 7.0 H Neutrophils # 2.6 Neutrophils % 13.0 L Platelet Count 14 #*L 10 #*L Potassium Level 3.9 4.0 Red Blood Count 3.31 L 3.11 L Red Cell Distribution Width 16.9 H 16.9 H Sodium Level 139 139 White Blood Count 20.0 H 21.4 H Activated Partial Thromboplast Time 32.1 INR International Normalized Ratio 1.20 Magnesium Level 1.4 L Phosphorus Level 4.6 Prothrombin Time 15.3 H Prothrombin Time Ratio 1.2 Medications Medications Current Medications Ondansetron HCl (Zofran Inj) 4 mg Q6H PRN IV NAUSEA AND/OR VOMITING; Start 12/23 at 16:30 Nitroglycerin (Nitroglycerin (Sl Tab) 0.4 Mg) 1 tab Q5M PRN SL CHEST PAIN; Start 12/23/16 at 16:30 Acetaminophen (Tylenol Supp) 650 mg Q4H PRN [place] PAIN LEVEL 1-3 OR FEVER Last administered on 12/25/16 01:06; Admin Dose 650 MG; Start 12/23/16 at 16:30 Bisacodyl (Dulcolax) 5 mg DAILY PRN PO CONSTIPATION; Start 12/23/16 at 16:30 IV Flush (NS 10 ml) 10 ml PRN PRN IV IV PROTOCOL; Start 01/03/17 at 16:30 Morphine Sulfate (morphine) 1 mg Q4H PRN IV PAIN LEVEL 7-10 Last administered on 01/08/17 22:19; Admin Dose 1 MG; Start 01/05/17 at 14:00 Lorazepam (Ativan) 2 mg Q1HWA PRN IV AGITATION Last administered on 01/14/17 21:13; Admin Dose 2 MG; Start 01/06/17 at 09:30 Metoprolol Tartrate (Lopressor) 25 mg BID PO Last administered on 01/16/17 09: 03; Admin Dose 25 MG; Start 01/08/17 at 21:00 Furosemide (Lasix) 20 mg DAILY IV Last administered on 01/16/17 09:03; Admin Dose 20 MG; Start 01/08/17 at 15:00 Haloperidol (Haldol) 1 mg Q8H PRN IM AGITATION Last administered on 01/09/17 12:23; Admin Dose 1 MG; Start 01/08/17 at 23:30 Quetiapine Fumarate (Seroquel) 75 mg BID PO Last administered on 01/16/17 09:03 ; Admin Dose 75 MG; Start 01/11/17 at 21:00 Collagenase (Santyl) 1 applic DAILY TOP Last administered on 01/16/17 09:04; Admin Dose 1 APPLIC; Start 01/11/17 at 16:00 Pantoprazole 40 mg 40 mg DAILY@06 PO Last administered on 01/16/17 05:50; Admin Dose 40 MG; Start 01/14/17 at 06:00 Magnesium Sulfate (Magnesium Sulfate 2 Gm/50 ml) 50 ml @ 25 mls/hr ONCE ONCE IVPB ; Start 01/16/17 at 11:00; Stop 01/16/17 at 12:59 ANA RATLIFF Jan 16, 2017 10:00
[2017-01-16 10:25] LABS: PLATELET ESTIMATE PLT APPEAR DECREASED
[2017-01-16] MEDS ORDERED: MAGNESIUM SULFATE 2 GM/50 ML 50 ML IVPB ONE (11:00)
--- NOTE | 2017-01-16 13:18 | PN ---
Date/Time of Note Date/Time of Note DATE: 01/16/17 TIME: 13:15 Assessment/Plan VTE Prophylaxis VTE Prophylaxis Intervention: other (thrombocytopenia) Lines/Catheters IV Catheter Type (from Nrs): PICC Line Central line still needed: Yes Urinary Cath still in place: No Assessment/Plan Assessment/Plan Pt is clinically stable. Thrombocytopenia remain significant at about 10K. No clinical bleeding. Pneumonia is continuing to gradually improve. Subjective 24 Hr Interval Summary Free Text/Dictation Pt is clinically unchanged. Awake and comfortable in bed. Exam/Review of Systems Vital Signs Vitals Vital Signs Date Time Temp Pulse Resp B/P Pulse Ox O2 Delivery O2 Flow Rate FiO2 01/16/17 07:35 98.2 71 20 106/58 94 01/15/17 20:00 Room Air Intake and Output 01/15/17 01/15/17 01/16/17 15:00 23:00 07:00 Intake Total 200 ml Balance 200 ml Exam Constitutional: alert Head: normocephalic Eyes: nl conjunctiva ENMT: nl external ears & nose Neck: supple Respiratory: clear to auscultation Cardiovascular: regular rate and rhythm Gastrointestinal: soft Results Result Diagram: 01/16/17 0555 01/16/17 0555 Results 24 hrs Laboratory Tests Test 01/16/17 05:55 Activated Partial Thromboplast Time 32.1 Anion Gap 15 Band Neutrophils % 2.0 Basophils % 1.0 Blast Cells % 4.0 H Blood Urea Nitrogen 25 H Calcium Level 7.8 L Carbon Dioxide Level 30 Chloride Level 98 Creatinine 1.60 H Eosinophils # Eosinophils % Glucose Level 96 Hematocrit 28.1 L Hemoglobin 9.1 L INR International Normalized Ratio 1.20 Lymphocytes % 29.0 Magnesium Level 1.4 L Mean Corpuscular Hemoglobin 29.3 Mean Corpuscular Hemoglobin Concent 32.4 Mean Corpuscular Volume 90.4 Mean Platelet Volume Metamyelocytes % 1.0 H Monocytes % 43.0 H Myelocytes % 4.0 H Neutrophils # Neutrophils % 14.0 L Phosphorus Level 4.6 Platelet Count 10 #*L Platelet Estimate PLT APPEAR DECREASED Potassium Level 4.0 Promyelocytes % 2.0 H Prothrombin Time 15.3 H Prothrombin Time Ratio 1.2 Red Blood Count 3.11 L Red Cell Distribution Width 16.9 H Sodium Level 139 White Blood Count 21.4 H Medications Medications Current Medications Ondansetron HCl (Zofran Inj) 4 mg Q6H PRN IV NAUSEA AND/OR VOMITING; Start 12/23 at 16:30 Nitroglycerin (Nitroglycerin (Sl Tab) 0.4 Mg) 1 tab Q5M PRN SL CHEST PAIN; Start 12/23/16 at 16:30 Acetaminophen (Tylenol Supp) 650 mg Q4H PRN [place] PAIN LEVEL 1-3 OR FEVER Last administered on 12/25/16 01:06; Admin Dose 650 MG; Start 12/23/16 at 16:30 Bisacodyl (Dulcolax) 5 mg DAILY PRN PO CONSTIPATION; Start 12/23/16 at 16:30 IV Flush (NS 10 ml) 10 ml PRN PRN IV IV PROTOCOL; Start 01/03/17 at 16:30 Morphine Sulfate (morphine) 1 mg Q4H PRN IV PAIN LEVEL 7-10 Last administered on 01/08/17 22:19; Admin Dose 1 MG; Start 01/05/17 at 14:00 Lorazepam (Ativan) 2 mg Q1HWA PRN IV AGITATION Last administered on 01/14/17 21:13; Admin Dose 2 MG; Start 01/06/17 at 09:30 Metoprolol Tartrate (Lopressor) 25 mg BID PO Last administered on 01/16/17 09: 03; Admin Dose 25 MG; Start 01/08/17 at 21:00 Furosemide (Lasix) 20 mg DAILY IV Last administered on 01/16/17 09:03; Admin Dose 20 MG; Start 01/08/17 at 15:00 Haloperidol (Haldol) 1 mg Q8H PRN IM AGITATION Last administered on 01/09/17 12:23; Admin Dose 1 MG; Start 01/08/17 at 23:30 Quetiapine Fumarate (Seroquel) 75 mg BID PO Last administered on 01/16/17 09:03 ; Admin Dose 75 MG; Start 01/11/17 at 21:00 Collagenase (Santyl) 1 applic DAILY TOP Last administered on 01/16/17 09:04; Admin Dose 1 APPLIC; Start 01/11/17 at 16:00 Pantoprazole (Protonix Tab) 40 mg DAILY@06 PO Last administered on 01/16/17 05: 50; Admin Dose 40 MG; Start 01/14/17 at 06:00 GONZALO MCDONALD MD Jan 16, 2017 13:18
--- NOTE | 2017-01-16 13:33 | CONS ---
Date/Time of Note Date/Time of Note DATE: 01/16/17 TIME: 13:31 Assessment/Plan Assessment/Plan Chief Complaint/Hosp Course IMPRESSION: 1. Respiratory failure-improved s/p extubation/stable 2. Cardiomyopathy with decreased left ventricular ejection fraction, last being approximately 45% to 50% by echo 11/2016.-reasonable volume status by exam today 3. Hypotension, borderline. 4. Influenza positive. 5. History of chronic myelogenous leukemia. 6. Renal failure-slowly improving. 7. Thrombocytopenia, severe. 8. Anemia. 9. Leukocytosis. 10.CHF-systolic and diastolic acute on chronic 11.Positive troponin-likely demand event. Now trended negative Recc: -Tele -serial ecg's -Continue abx's and f/u cx data -Follow volume status closely and continue gentle daily lasix -Follow for bleeding complications/need for platelet transfusion -Follow platelet count closely -Continue BB Problems: Consultation Date/Type/Reason Admit Date/Time Dec 23, 2016 at 15:37 Initial Consult Date 12/24/16 Type of Consultation: Cardiology Reason for Consultation cardiomyopathy Referring Provider: BEN COURTNEY MD Exam/Review of Systems Vital Signs Vitals Vital Signs Date Time Temp Pulse Resp B/P Pulse Ox O2 Delivery O2 Flow Rate FiO2 01/16/17 07:35 98.2 71 20 106/58 94 01/15/17 20:00 Room Air Intake and Output 01/15/17 01/15/17 01/16/17 15:00 23:00 07:00 Intake Total 200 ml Balance 200 ml Exam Review of Systems: CONSTITUTIONAL: No fevers, chills. PULMONARY: No sob CARDIOVASCULAR: No chest pain/palpitations GASTROINTESTINAL: No nausea/vomiting. GENITOURINARY: No hematuria/dysuria. MUSCULOSKELETAL: No myagias/arthalgias. PSYCHIATRIC: The patient denies depression. NEUROLOGIC: lethargic Constitutional: other (sleeping) Psych: no complaints Head: normocephalic ENMT: mucosa pink and moist Neck: jvd (9 cm water), supple Respiratory: diminished breath sounds (at bases/B) Cardiovascular: regular rate and rhythm Gastrointestinal: non-tender, soft Musculoskeletal: muscle tone (normal) Extremities: edema (none) Neurological: lethargic Results Result Diagram: 01/16/17 0555 01/16/17 0555 Results 24 hrs Laboratory Tests Test 01/16/17 05:55 Activated Partial Thromboplast Time 32.1 Anion Gap 15 Band Neutrophils % 2.0 Basophils % 1.0 Blast Cells % 4.0 H Blood Urea Nitrogen 25 H Calcium Level 7.8 L Carbon Dioxide Level 30 Chloride Level 98 Creatinine 1.60 H Eosinophils # Eosinophils % Glucose Level 96 Hematocrit 28.1 L Hemoglobin 9.1 L INR International Normalized Ratio 1.20 Lymphocytes % 29.0 Magnesium Level 1.4 L Mean Corpuscular Hemoglobin 29.3 Mean Corpuscular Hemoglobin Concent 32.4 Mean Corpuscular Volume 90.4 Mean Platelet Volume Metamyelocytes % 1.0 H Monocytes % 43.0 H Myelocytes % 4.0 H Neutrophils # Neutrophils % 14.0 L Phosphorus Level 4.6 Platelet Count 10 #*L Platelet Estimate PLT APPEAR DECREASED Potassium Level 4.0 Promyelocytes % 2.0 H Prothrombin Time 15.3 H Prothrombin Time Ratio 1.2 Red Blood Count 3.11 L Red Cell Distribution Width 16.9 H Sodium Level 139 White Blood Count 21.4 H Medications Medications Current Medications Ondansetron HCl (Zofran Inj) 4 mg Q6H PRN IV NAUSEA AND/OR VOMITING; Start 12/23 at 16:30 Nitroglycerin (Nitroglycerin (Sl Tab) 0.4 Mg) 1 tab Q5M PRN SL CHEST PAIN; Start 12/23/16 at 16:30 Acetaminophen (Tylenol Supp) 650 mg Q4H PRN [place] PAIN LEVEL 1-3 OR FEVER Last administered on 12/25/16 01:06; Admin Dose 650 MG; Start 12/23/16 at 16:30 Bisacodyl (Dulcolax) 5 mg DAILY PRN PO CONSTIPATION; Start 12/23/16 at 16:30 IV Flush (NS 10 ml) 10 ml PRN PRN IV IV PROTOCOL; Start 01/03/17 at 16:30 Morphine Sulfate (morphine) 1 mg Q4H PRN IV PAIN LEVEL 7-10 Last administered on 01/08/17 22:19; Admin Dose 1 MG; Start 01/05/17 at 14:00 Lorazepam (Ativan) 2 mg Q1HWA PRN IV AGITATION Last administered on 01/14/17 21:13; Admin Dose 2 MG; Start 01/06/17 at 09:30 Metoprolol Tartrate (Lopressor) 25 mg BID PO Last administered on 01/16/17 09: 03; Admin Dose 25 MG; Start 01/08/17 at 21:00 Furosemide (Lasix) 20 mg DAILY IV Last administered on 01/16/17 09:03; Admin Dose 20 MG; Start 01/08/17 at 15:00 Haloperidol (Haldol) 1 mg Q8H PRN IM AGITATION Last administered on 01/09/17 12:23; Admin Dose 1 MG; Start 01/08/17 at 23:30 Quetiapine Fumarate (Seroquel) 75 mg BID PO Last administered on 01/16/17 09:03 ; Admin Dose 75 MG; Start 01/11/17 at 21:00 Collagenase (Santyl) 1 applic DAILY TOP Last administered on 01/16/17 09:04; Admin Dose 1 APPLIC; Start 01/11/17 at 16:00 Pantoprazole (Protonix Tab) 40 mg DAILY@06 PO Last administered on 01/16/17 05: 50; Admin Dose 40 MG; Start 01/14/17 at 06:00 MILENA VELA Jan 16, 2017 13:33
--- NOTE | 2017-01-16 17:30 | CONS ---
Date/Time of Note Date/Time of Note DATE: 01/16/17 TIME: 17:28 Assessment/Plan Assessment/Plan Additional Assessment/Plan 1. Acute kidney injury, likely secondary to acute tubular necrosis in the setting of sepsis.-improved 2. Acute hypoxemic respiratory failure, multifactorial, secondary to sepsis and secondary to pulmonary congestion s/p extubation - stable 3. Acute pulmonary edema with influenza pneumonia.- now improved 4. History of congestive heart failure with diastolic heart failure. 5. History of chronic obstructive pulmonary disease. 6. History of gastroesophageal reflux disease. 7. History of smoking. 8. 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 9. Hypomagnesemia , Hypokalemia - replaced PLAN: Cr 1.6, electrolytes stable making good urine,Hematuria, urology following Bp stable will follow up Consultation Date/Type/Reason Admit Date/Time Dec 23, 2016 at 15:37 Initial Consult Date 12/23/16 Type of Consultation: NEPHROLOGY Referring Provider: BEN COURTNEY MD 24 HR Interval Summary Free Text/Dictation no acute events, Cr 1.6,electrolytes stable, BP good Exam/Review of Systems Vital Signs Vitals Vital Signs Date Time Temp Pulse Resp B/P Pulse Ox O2 Delivery O2 Flow Rate FiO2 01/16/17 07:35 98.2 71 20 106/58 94 01/15/17 20:00 Room Air Intake and Output 01/15/17 01/15/17 01/16/17 15:00 23:00 07:00 Intake Total 200 ml Balance 200 ml Results Result Diagram: 01/16/17 0555 01/16/17 0555 Results 24 hrs Laboratory Tests Test 01/16/17 05:55 Activated Partial Thromboplast Time 32.1 Anion Gap 15 Band Neutrophils % 2.0 Basophils % 1.0 Blast Cells % 4.0 H Blood Urea Nitrogen 25 H Calcium Level 7.8 L Carbon Dioxide Level 30 Chloride Level 98 Creatinine 1.60 H Eosinophils # Eosinophils % Glucose Level 96 Hematocrit 28.1 L Hemoglobin 9.1 L INR International Normalized Ratio 1.20 Lymphocytes % 29.0 Magnesium Level 1.4 L Mean Corpuscular Hemoglobin 29.3 Mean Corpuscular Hemoglobin Concent 32.4 Mean Corpuscular Volume 90.4 Mean Platelet Volume Metamyelocytes % 1.0 H Monocytes % 43.0 H Myelocytes % 4.0 H Neutrophils # Neutrophils % 14.0 L Phosphorus Level 4.6 Platelet Count 10 #*L Platelet Estimate PLT APPEAR DECREASED Potassium Level 4.0 Promyelocytes % 2.0 H Prothrombin Time 15.3 H Prothrombin Time Ratio 1.2 Red Blood Count 3.11 L Red Cell Distribution Width 16.9 H Sodium Level 139 White Blood Count 21.4 H Medications Medications Current Medications Ondansetron HCl (Zofran Inj) 4 mg Q6H PRN IV NAUSEA AND/OR VOMITING; Start 12/23 at 16:30 Nitroglycerin (Nitroglycerin (Sl Tab) 0.4 Mg) 1 tab Q5M PRN SL CHEST PAIN; Start 12/23/16 at 16:30 Acetaminophen (Tylenol Supp) 650 mg Q4H PRN [place] PAIN LEVEL 1-3 OR FEVER Last administered on 12/25/16 01:06; Admin Dose 650 MG; Start 12/23/16 at 16:30 Bisacodyl (Dulcolax) 5 mg DAILY PRN PO CONSTIPATION; Start 12/23/16 at 16:30 IV Flush (NS 10 ml) 10 ml PRN PRN IV IV PROTOCOL; Start 01/03/17 at 16:30 Morphine Sulfate (morphine) 1 mg Q4H PRN IV PAIN LEVEL 7-10 Last administered on 01/08/17 22:19; Admin Dose 1 MG; Start 01/05/17 at 14:00 Lorazepam (Ativan) 2 mg Q1HWA PRN IV AGITATION Last administered on 01/14/17 21:13; Admin Dose 2 MG; Start 01/06/17 at 09:30 Metoprolol Tartrate (Lopressor) 25 mg BID PO Last administered on 01/16/17 09: 03; Admin Dose 25 MG; Start 01/08/17 at 21:00 Furosemide (Lasix) 20 mg DAILY IV Last administered on 01/16/17 09:03; Admin Dose 20 MG; Start 01/08/17 at 15:00 Haloperidol (Haldol) 1 mg Q8H PRN IM AGITATION Last administered on 01/09/17 12:23; Admin Dose 1 MG; Start 01/08/17 at 23:30 Quetiapine Fumarate (Seroquel) 75 mg BID PO Last administered on 01/16/17 09:03 ; Admin Dose 75 MG; Start 01/11/17 at 21:00 Collagenase (Santyl) 1 applic DAILY TOP Last administered on 01/16/17 09:04; Admin Dose 1 APPLIC; Start 01/11/17 at 16:00 Pantoprazole (Protonix Tab) 40 mg DAILY@06 PO Last administered on 01/16/17 05: 50; Admin Dose 40 MG; Start 01/14/17 at 06:00 GILL PEREIRA MD Jan 16, 2017 17:30
[2017-01-17] MEDS: PANTOPRAZOLE (EC) 40 MG TAB PO SCH (06:04)
[2017-01-17 07:46] VITALS: BP 130/63; RESP 20
[2017-01-17 08:55] LABS: CALCIUM 8.4 mg/dl (8.4-10.2); CREATININE 1.54 mg/dl (0.61-1.24)
[2017-01-17] MEDS: METOPROLOL 25 MG TAB PO SCH ×2 (09:19→20:33)
[2017-01-17] MEDS: QUETIAPINE 25 MG TAB PO SCH ×2 (09:19→20:33)
[2017-01-17] MEDS: FUROSEMIDE 20 MG INJ IV SCH (09:19)
[2017-01-17 09:38] LABS: MAGNESIUM 1.8 mg/dl (1.7-2.5); PHOSPHORUS 4.2 mg/dl (2.5-4.9)
--- NOTE | 2017-01-17 09:52 | PN ---
Date/Time of Note Date/Time of Note DATE: 01/17/17 TIME: 09:49 Assessment/Plan VTE Prophylaxis VTE Prophylaxis Intervention: contraindicated, SCD's VTE Contraindication Reason: thrombocytopenia Lines/Catheters IV [facility] Type ([facility] PICC Line Central line still needed: Yes Urinary Cath still in place: No Assessment/Plan Chief Complaint/Hosp Course Assessment/Plan 71 yo male with a past medical history of CML on chemotherapy, MDS, GERD, COPD, anemia of chronic disease, who presents with acute shortness of breath sec to + influenza. * Encephalopathy (Acute): per family patient was alert / oriented and functioning prior to admission / Still requiring 1:1 sitter / this is likely new baseline - Continue seroquel / Haldol prn, wean sitter if possible - for intermittitent agitation - will get tele psych consult today as well * Sepsis - 2/2 to Influenza / PNA : both resolved - monitor - Patient remains off all abx - monitor * Acute Hypoxemic Resp failure 2/2 PNA and CHF: Improved / now extubated and stable on RA * -Continue supportive care + Strict aspiration precautions * CMML / MDS +Pulmonary nodules ?mets - f/u CBC daily and Heme/Onc rec's * Severe Anemia 2/2 MDS : Has had 9units PRBCs so far, H/H stable * monitor * Severe Platelet refractory thrombocytopenia : Has also had 7 units platelets so far / Nose bleeds have resolved, plts = 37 -> 29 -> 10. Pt had plt transfusion yesterday. * f/u CBC today (results pending) * monitor, continue further transfusion per Heme/Onc rec's * Acute Renal failure : Resolved / Cr WNL * monitor, Optimize electrolytes * CHF-systolic and diastolic acute on chronic : compensated * NSTEMI type 2 :med mgt * COPD : stable * Dysphagia 2/2 encephalopathy * continue Puree diet * Cardiomyopathy with decreased left ventricular ejection fraction, last being approximately 45% to 50% by echo 11/2016. * Hematuria : resolved - was likely 2/2 Leyva trauma from patient pulling + Thrombocytopenia * - monitor PROPHYLAXIS: IV PPI / SCDs DISPO: to SNF vs ARU Problems: Subjective 24 Hr Interval Summary Free Text/Dictation Pt had plt transfusion yesterday, presently ambulating with PT assistance. Exam/Review of Systems Vital Signs Vitals Vital Signs Date Time Temp Pulse Resp B/P Pulse Ox O2 Delivery O2 Flow Rate FiO2 01/17/17 07:46 98.4 72 20 130/63 97 01/15/17 20:00 Room Air Intake and Output 01/16/17 01/16/17 01/17/17 15:00 23:00 07:00 Intake Total 1140 ml 1280 ml Output Total 400 ml 1100 ml Balance 740 ml 180 ml Exam Constitutional: alert, frail, other (calm presently) Psych: confusion (occ) Head: atraumatic, normocephalic Eyes: PERRL ENMT: mucosa pink and moist Neck: supple Respiratory: clear to auscultation, diminished breath sounds Cardiovascular: regular rate and rhythm, No murmurs/extra sounds Gastrointestinal: bowel sounds, non-tender, soft Extremities: No edema Neurological: less confused Results Result Diagram: 01/16/17 0555 01/17/17 0725 Results 24 hrs Laboratory Tests Test 01/17/17 07:25 Anion Gap 16 Blood Urea Nitrogen 26 H Calcium Level 8.4 Carbon Dioxide Level 30 Chloride Level 97 Creatinine 1.54 H Glucose Level 104 Magnesium Level 1.8 Phosphorus Level 4.2 Potassium Level 4.0 Sodium Level 139 Medications Medications Current Medications Ondansetron HCl (Zofran Inj) 4 mg Q6H PRN IV NAUSEA AND/OR VOMITING; Start 12/23 at 16:30 Nitroglycerin (Nitroglycerin (Sl Tab) 0.4 Mg) 1 tab Q5M PRN SL CHEST PAIN; Start 12/23/16 at 16:30 Acetaminophen (Tylenol Supp) 650 mg Q4H PRN [place] PAIN LEVEL 1-3 OR FEVER Last administered on 12/25/16 01:06; Admin Dose 650 MG; Start 12/23/16 at 16:30 Bisacodyl (Dulcolax) 5 mg DAILY PRN PO CONSTIPATION; Start 12/23/16 at 16:30 IV Flush (NS 10 ml) 10 ml PRN PRN IV IV PROTOCOL; Start 01/03/17 at 16:30 Morphine Sulfate (morphine) 1 mg Q4H PRN IV PAIN LEVEL 7-10 Last administered on 01/08/17 22:19; Admin Dose 1 MG; Start 01/05/17 at 14:00 Lorazepam (Ativan) 2 mg Q1HWA PRN IV AGITATION Last administered on 01/14/17 21:13; Admin Dose 2 MG; Start 01/06/17 at 09:30 Metoprolol Tartrate (Lopressor) 25 mg BID PO Last administered on 01/17/17 09: 19; Admin Dose 25 MG; Start 01/08/17 at 21:00 Furosemide (Lasix) 20 mg DAILY IV Last administered on 01/17/17 09:19; Admin Dose 20 MG; Start 01/08/17 at 15:00 Haloperidol (Haldol) 1 mg Q8H PRN IM AGITATION Last administered on 01/09/17 12:23; Admin Dose 1 MG; Start 01/08/17 at 23:30 Quetiapine Fumarate (Seroquel) 75 mg BID PO Last administered on 01/17/17 09:19 ; Admin Dose 75 MG; Start 01/11/17 at 21:00 Collagenase (Santyl) 1 applic DAILY TOP Last administered on 01/16/17 09:04; Admin Dose 1 APPLIC; Start 01/11/17 at 16:00 Pantoprazole (Protonix Tab) 40 mg DAILY@06 PO Last administered on 01/17/17 06: 04; Admin Dose 40 MG; Start 01/14/17 at 06:00 ANA RATLIFF Jan 17, 2017 09:52
[2017-01-17 12:19] LABS: ADD SCAN DIFF NO
[2017-01-17 12:26] LABS: ABNORMAL IP MESSAGE 1; HEMATOCRIT 25.9 % (42.0-52.0); HEMOGLOBIN 8.5 g/dl (14.0-18.0); MEAN CORPUSCULAR HEMOGLOBIN 29.9 pg (29.0-33.0); MEAN CORPUSCULAR HGB CONC 32.8 g/dl (32.0-37.0); MEAN CORPUSCULAR VOLUME 91.2 fl (82.0-101.0); MEAN PLATELET VOLUME 9.9 fl (7.4-10.4); PLATELET COUNT 35 10^3/UL (140-415); RED BLOOD COUNT 2.84 10^6/ul (4.70-6.10); RED CELL DISTRIBUTION WIDTH 16.6 % (11.5-14.5); WHITE BLOOD COUNT 20.5 10^3/ul (4.8-10.8)
--- NOTE | 2017-01-17 12:31 | PN ---
DATE: 01/17/2017 SUBJECTIVE: Mr. Townsend has been up ambulating for the first time with physical therapy. He has n o new specific complaints today. PHYSICAL EXAMINATION: VITAL SIGNS: Temperature 98.4, pulse 72, respirations 20, blood pressure 130/63 and pulse oximetry 97%. SKIN: Scattered ecchymoses. No petechiae or rashes. HEENT: No mucosal lesions. No scleral icterus. NECK: Supple. No jugular venous distention or thyroid enlargement. CHEST: Clear to auscultation and percussion. No rhonchi, wheezes, rales or rubs. NODES: No palpable lymphadenopathy in lymph node bearing area. ABDOMEN: Soft, no masses, no ascites. The spleen is palpable 4 cm below the left costal margin in the anterior axillary line. Bowel sounds are active. EXTREMITIES: No clubbing, edema or cyanosis. No palpable cords or Homans sign. NEUROLOGIC: Normal except for generalized weakness. There are no focal neurologic abnormalities. LABORATORY DATA: White count today is 21,400 with 43% monocytes, hemoglobin 9.1, hematocrit 28.1 an d platelet count 10,000. ASSESSMENT: 1. Respiratory insufficiency due to influenza A, resolved. 2. Chronic myelomonocytic leukemia. PLAN: The patient is improving symptomatically. I have been contacted regarding possible transfer to acute rehabilitation. I do feel the patient could benefit from acute rehabilitation and do not p sam any other active therapy at this time. He will likely require support with either transfusions of either packed red blood cells or platelets during a stay in rehabilitation. Would withhold plate let transfusions unless the platelet count is less than 10 or there is active bleeding. Would also withhold red blood cell transfusion unless the hemoglobin is less than 8. Dictated By: OPAL MOSES MD SR/NTS Conf#: [id number] DID#: [id number]
--- NOTE | 2017-01-17 14:10 | CONS ---
Date/Time of Note Date/Time of Note DATE: 01/17/17 TIME: 14:08 Assessment/Plan Assessment/Plan Chief Complaint/Hosp Course IMPRESSION: 1. Respiratory failure-improved s/p extubation/stable 2. Cardiomyopathy with decreased left ventricular ejection fraction, last being approximately 45% to 50% by echo 11/2016.-reasonable volume status by exam today 3. Hypotension, borderline. 4. Influenza positive. 5. History of chronic myelogenous leukemia. 6. Renal failure-slowly improving. 7. Thrombocytopenia, severe.-slowly improving 8. Anemia. 9. Leukocytosis. 10.CHF-systolic and diastolic acute on chronic 11.Positive troponin-likely demand event. Now trended negative Recc: -Tele -serial ecg's -Continue abx's and f/u cx data -Follow volume status closely and continue gentle daily lasix -Follow for bleeding complications/need for platelet transfusion -Follow platelet count closely -Continue BB Problems: Consultation Date/Type/Reason Admit Date/Time Dec 23, 2016 at 15:37 Initial Consult Date 12/24/16 Type of Consultation: Cardiology Reason for Consultation cardiomyopathy Referring Provider: BEN COURTNEY MD Exam/Review of Systems Vital Signs Vitals Vital Signs Date Time Temp Pulse Resp B/P Pulse Ox O2 Delivery O2 Flow Rate FiO2 01/17/17 07:46 98.4 72 20 130/63 97 01/15/17 20:00 Room Air Intake and Output 01/16/17 01/16/17 01/17/17 15:00 23:00 07:00 Intake Total 1140 ml 1280 ml Output Total 400 ml 1100 ml Balance 740 ml 180 ml Exam Review of Systems: CONSTITUTIONAL: No fevers, chills. PULMONARY: No sob CARDIOVASCULAR: No chest pain/palpitations GASTROINTESTINAL: No nausea/vomiting. GENITOURINARY: No hematuria/dysuria. MUSCULOSKELETAL: No myagias/arthalgias. PSYCHIATRIC: The patient denies depression. NEUROLOGIC: No weakness Constitutional: alert, oriented Psych: no complaints ENMT: mucosa pink and moist Neck: jvd (8 cm water), supple Respiratory: diminished breath sounds (at bases/B) Cardiovascular: regular rate and rhythm Gastrointestinal: non-tender, soft Musculoskeletal: muscle tone (normal) Extremities: edema (none) Neurological: lethargic, other (No focal defcits) Results Result Diagram: 01/17/17 1200 01/17/17 0725 Results 24 hrs Laboratory Tests Test 01/17/17 07:25 01/17/17 12:00 Anion Gap 16 Blood Urea Nitrogen 26 H Calcium Level 8.4 Carbon Dioxide Level 30 Chloride Level 97 Creatinine 1.54 H Glucose Level 104 Magnesium Level 1.8 Phosphorus Level 4.2 Potassium Level 4.0 Sodium Level 139 Eosinophils # Eosinophils % Hematocrit 25.9 L Hemoglobin 8.5 L Mean Corpuscular Hemoglobin 29.9 Mean Corpuscular Hemoglobin Concent 32.8 Mean Corpuscular Volume 91.2 Mean Platelet Volume 9.9 Neutrophils # Neutrophils % Platelet Count 35 #L Red Blood Count 2.84 L Red Cell Distribution Width 16.6 H White Blood Count 20.5 H Medications Medications Current Medications Ondansetron HCl (Zofran Inj) 4 mg Q6H PRN IV NAUSEA AND/OR VOMITING; Start 12/23 at 16:30 Nitroglycerin (Nitroglycerin (Sl Tab) 0.4 Mg) 1 tab Q5M PRN SL CHEST PAIN; Start 12/23/16 at 16:30 Acetaminophen (Tylenol Supp) 650 mg Q4H PRN [place] PAIN LEVEL 1-3 OR FEVER Last administered on 12/25/16 01:06; Admin Dose 650 MG; Start 12/23/16 at 16:30 Bisacodyl (Dulcolax) 5 mg DAILY PRN PO CONSTIPATION; Start 12/23/16 at 16:30 IV Flush (NS 10 ml) 10 ml PRN PRN IV IV PROTOCOL; Start 01/03/17 at 16:30 Morphine Sulfate (morphine) 1 mg Q4H PRN IV PAIN LEVEL 7-10 Last administered on 01/08/17 22:19; Admin Dose 1 MG; Start 01/05/17 at 14:00 Lorazepam (Ativan) 2 mg Q1HWA PRN IV AGITATION Last administered on 01/14/17 21:13; Admin Dose 2 MG; Start 01/06/17 at 09:30 Metoprolol Tartrate (Lopressor) 25 mg BID PO Last administered on 01/17/17 09: 19; Admin Dose 25 MG; Start 01/08/17 at 21:00 Furosemide (Lasix) 20 mg DAILY IV Last administered on 01/17/17 09:19; Admin Dose 20 MG; Start 01/08/17 at 15:00 Haloperidol (Haldol) 1 mg Q8H PRN IM AGITATION Last administered on 01/09/17 12:23; Admin Dose 1 MG; Start 01/08/17 at 23:30 Quetiapine Fumarate (Seroquel) 75 mg BID PO Last administered on 01/17/17 09:19 ; Admin Dose 75 MG; Start 01/11/17 at 21:00 Collagenase (Santyl) 1 applic DAILY TOP Last administered on 01/16/17 09:04; Admin Dose 1 APPLIC; Start 01/11/17 at 16:00 Pantoprazole (Protonix Tab) 40 mg DAILY@06 PO Last administered on 01/17/17 06: 04; Admin Dose 40 MG; Start 01/14/17 at 06:00 MILENA VELA Jan 17, 2017 14:10
[2017-01-17 14:35] LABS: LYMPHOCYTES # 4.7 10^3/ul (0.8-2.9); MONOCYTE # 10.3 10^3/ul (0.3-0.9); MYELOCYTES # 0.6; NEUTROPHIL # 3.1 10^3/ul (1.6-7.5)
--- NOTE | 2017-01-17 15:17 | CONS ---
Date/Time of Note Date/Time of Note DATE: 01/17/17 TIME: 15:15 Assessment/Plan Assessment/Plan Additional Assessment/Plan 1. Acute kidney injury, likely secondary to acute tubular necrosis in the setting of sepsis.-improved 2. Acute hypoxemic respiratory failure, multifactorial, secondary to sepsis and secondary to pulmonary congestion s/p extubation - stable 3. Acute pulmonary edema with influenza pneumonia.- now improved 4. History of congestive heart failure with diastolic heart failure. 5. History of chronic obstructive pulmonary disease. 6. History of gastroesophageal reflux disease. 7. History of smoking. 8. 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 9. Hypomagnesemia , Hypokalemia - replaced PLAN: Cr 1.54, electrolytes stable making good urine,Hematuria, urology following Bp stable will follow up Consultation Date/Type/Reason Admit Date/Time Dec 23, 2016 at 15:37 Initial Consult Date 12/23/16 Type of Consultation: NEPHROLOGY Reason for Consultation Acute Kidney Injury,hypokalemia Referring Provider: BEN COURTNEY MD Exam/Review of Systems Vital Signs Vitals Vital Signs Date Time Temp Pulse Resp B/P Pulse Ox O2 Delivery O2 Flow Rate FiO2 01/17/17 07:46 98.4 72 20 130/63 97 01/15/17 20:00 Room Air Intake and Output 01/16/17 01/16/17 01/17/17 15:00 23:00 07:00 Intake Total 1140 ml 1280 ml Output Total 400 ml 1100 ml Balance 740 ml 180 ml Exam Gen [place]: alert, agitated CV: S1S2, no M/G/R Lungs: coarse breath sounds throughout all lung masters, diminished at the bases , with end expiratory wheezing Abd: soft, NT/ND, +BS, EXT: 1+ edema, no ecchymosis, no clubbing, FROM, muscle wasting noted + silveira catheter Results Result Diagram: 01/17/17 1200 01/17/17 0725 Results 24 hrs Laboratory Tests Test 01/17/17 07:25 01/17/17 12:00 Anion Gap 16 Blood Urea Nitrogen 26 H Calcium Level 8.4 Carbon Dioxide Level 30 Chloride Level 97 Creatinine 1.54 H Glucose Level 104 Magnesium Level 1.8 Phosphorus Level 4.2 Potassium Level 4.0 Sodium Level 139 Band Neutrophils % 3.0 Blast Cells % 2.0 H Blastocytes # 0.4 Eosinophils # Eosinophils % Hematocrit 25.9 L Hemoglobin 8.5 L Lymphocytes # 4.7 H Lymphocytes % 23.0 Mean Corpuscular Hemoglobin 29.9 Mean Corpuscular Hemoglobin Concent 32.8 Mean Corpuscular Volume 91.2 Mean Platelet Volume 9.9 Metamyelocytes # 0.8 Metamyelocytes % 4.0 H Monocytes # 10.3 H Monocytes % 50.0 H Myelocytes # 0.6 Myelocytes % 3.0 H Neutrophils # 3.1 Neutrophils % 15.0 L Platelet Count 35 #L Red Blood Count 2.84 L Red Cell Distribution Width 16.6 H White Blood Count 20.5 H Medications Medications Current Medications Ondansetron HCl (Zofran Inj) 4 mg Q6H PRN IV NAUSEA AND/OR VOMITING; Start 12/23 at 16:30 Nitroglycerin (Nitroglycerin (Sl Tab) 0.4 Mg) 1 tab Q5M PRN SL CHEST PAIN; Start 12/23/16 at 16:30 Acetaminophen (Tylenol Supp) 650 mg Q4H PRN [place] PAIN LEVEL 1-3 OR FEVER Last administered on 12/25/16 01:06; Admin Dose 650 MG; Start 12/23/16 at 16:30 Bisacodyl (Dulcolax) 5 mg DAILY PRN PO CONSTIPATION; Start 12/23/16 at 16:30 IV Flush (NS 10 ml) 10 ml PRN PRN IV IV PROTOCOL; Start 01/03/17 at 16:30 Morphine Sulfate (morphine) 1 mg Q4H PRN IV PAIN LEVEL 7-10 Last administered on 01/08/17 22:19; Admin Dose 1 MG; Start 01/05/17 at 14:00 Lorazepam (Ativan) 2 mg Q1HWA PRN IV AGITATION Last administered on 01/14/17 21:13; Admin Dose 2 MG; Start 01/06/17 at 09:30 Metoprolol Tartrate (Lopressor) 25 mg BID PO Last administered on 01/17/17 09: 19; Admin Dose 25 MG; Start 01/08/17 at 21:00 Furosemide (Lasix) 20 mg DAILY IV Last administered on 01/17/17 09:19; Admin Dose 20 MG; Start 01/08/17 at 15:00 Haloperidol (Haldol) 1 mg Q8H PRN IM AGITATION Last administered on 01/09/17 12:23; Admin Dose 1 MG; Start 01/08/17 at 23:30 Quetiapine Fumarate (Seroquel) 75 mg BID PO Last administered on 01/17/17 09:19 ; Admin Dose 75 MG; Start 01/11/17 at 21:00 Collagenase (Santyl) 1 applic DAILY TOP Last administered on 01/16/17 09:04; Admin Dose 1 APPLIC; Start 01/11/17 at 16:00 Pantoprazole (Protonix Tab) 40 mg DAILY@06 PO Last administered on 01/17/17 06: 04; Admin Dose 40 MG; Start 01/14/17 at 06:00 GILL PEREIRA MD Jan 17, 2017 15:16
[2017-01-17] MEDS: COLLAGENASE 30 GM TUBE TOP SCH (16:15)
[2017-01-17 19:59] VITALS: BP 118/64; RESP 20
[2017-01-18 05:08] LABS: ADD SCAN DIFF NO
[2017-01-18 05:25] LABS: ABNORMAL IP MESSAGE 1; HEMOGLOBIN 8.3 g/dl (14.0-18.0); MEAN CORPUSCULAR HEMOGLOBIN 29.3 pg (29.0-33.0); MEAN CORPUSCULAR HGB CONC 31.9 g/dl (32.0-37.0); MEAN CORPUSCULAR VOLUME 91.9 fl (82.0-101.0); MEAN PLATELET VOLUME 9.5 fl (7.4-10.4); RED BLOOD COUNT 2.83 10^6/ul (4.70-6.10); RED CELL DISTRIBUTION WIDTH 16.4 % (11.5-14.5)
[2017-01-18] MEDS: PANTOPRAZOLE (EC) 40 MG TAB PO SCH (05:45)
[2017-01-18 06:14] LABS: POTASSIUM 3.4 mmol/L (3.5-5.1)
[2017-01-18 06:17] LABS: CALCIUM 7.7 mg/dl (8.4-10.2); CREATININE 1.65 mg/dl (0.61-1.24)
[2017-01-18 06:26] LABS: PLATELET COUNT 27 10^3/UL (140-415)
[2017-01-18 07:33] VITALS: BP 118/61; RESP 16
[2017-01-18] MEDS ORDERED: POTASSIUM CHLORIDE (SR) 20 MEQ TAB PO STA (08:53)
[2017-01-18] MEDS: COLLAGENASE 30 GM TUBE TOP SCH (08:54)
[2017-01-18] MEDS: FUROSEMIDE 20 MG INJ IV SCH (08:55)
[2017-01-18] MEDS: QUETIAPINE 25 MG TAB PO SCH ×2 (08:55→20:13)
[2017-01-18] MEDS: METOPROLOL 25 MG TAB PO SCH ×2 (08:55→20:13)
--- NOTE | 2017-01-18 08:58 | PN ---
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 * Encephalopathy (Acute): per family patient was alert / oriented and functioning prior to admission / Still requiring 1:1 sitter / this is likely new baseline - Continue seroquel / Haldol prn, wean sitter if possible - for intermittitent agitation - will get tele psych consult today as well * Sepsis - 2/2 to Influenza / PNA : both resolved - monitor - Patient remains off all abx - monitor * Acute Hypoxemic Resp failure 2/2 PNA and CHF: Improved / now extubated and stable on RA * -Continue supportive care + Strict aspiration precautions * CMML / MDS +Pulmonary nodules ?mets - f/u CBC daily and Heme/Onc rec's * Severe Anemia 2/2 MDS : Has had 9units PRBCs so far, H/H stable * monitor * Severe Platelet refractory thrombocytopenia : Has also had 7 units platelets so far / Nose bleeds have resolved, plts = 37 -> 29 -> 10 -> 34 -> 27. Pt had plt transfusion 2 days ago * f/u CBC daily * monitor, continue further transfusion per Heme/Onc rec's (pRBC if Hgb < 8, and plt if < 10) * Acute Renal failure : Resolved / Cr WNL * monitor, Optimize electrolytes * CHF-systolic and diastolic acute on chronic : compensated * NSTEMI type 2 :med mgt * COPD : stable * Dysphagia 2/2 encephalopathy * continue Puree diet * Cardiomyopathy with decreased left ventricular ejection fraction, last being approximately 45% to 50% by echo 11/2016. * Hematuria : resolved - was likely 2/2 Leyva trauma from patient pulling + Thrombocytopenia * - monitor PROPHYLAXIS: IV PPI / SCDs DISPO: to SNF vs ARU Problems: Subjective 24 Hr Interval Summary Free Text/Dictation Worked with PT, no acute events overnight. Exam/Review of Systems Vital Signs Vitals Vital Signs Date Time Temp Pulse Resp B/P Pulse Ox O2 Delivery O2 Flow Rate FiO2 01/18/17 07:33 98.5 81 16 118/61 93 01/15/17 20:00 Room Air Intake and Output 01/17/17 01/17/17 01/18/17 15:00 23:00 07:00 Intake Total 840 ml 120 ml Output Total 700 ml 500 ml Balance 140 ml -380 ml Exam Constitutional: alert, frail, other (calm presently) Psych: confusion (occ) Head: atraumatic, normocephalic Eyes: PERRL ENMT: mucosa pink and moist Neck: supple Respiratory: clear to auscultation, diminished breath sounds Cardiovascular: regular rate and rhythm, No murmurs/extra sounds Gastrointestinal: bowel sounds, non-tender, soft Extremities: No edema Neurological: less confused Results Result Diagram: 01/18/17 0450 01/18/17 0450 Results 24 hrs Laboratory Tests Test 01/17/17 12:00 01/18/17 04:50 Band Neutrophils % 3.0 Blast Cells % 2.0 H Blastocytes # 0.4 Eosinophils # Eosinophils % Hematocrit 25.9 L 26.0 L Hemoglobin 8.5 L 8.3 L Lymphocytes # 4.7 H Lymphocytes % 23.0 Mean Corpuscular Hemoglobin 29.9 29.3 Mean Corpuscular Hemoglobin Concent 32.8 31.9 L Mean Corpuscular Volume 91.2 91.9 Mean Platelet Volume 9.9 9.5 Metamyelocytes # 0.8 Metamyelocytes % 4.0 H Monocytes # 10.3 H Monocytes % 50.0 H Myelocytes # 0.6 Myelocytes % 3.0 H Neutrophils # 3.1 Neutrophils % 15.0 L Platelet Count 35 #L 27 #*L Red Blood Count 2.84 L 2.83 L Red Cell Distribution Width 16.6 H 16.4 H White Blood Count 20.5 H 22.0 H Anion Gap 12 Blood Urea Nitrogen 26 H Calcium Level 7.7 L Carbon Dioxide Level 30 Chloride Level 99 Creatinine 1.65 H Glucose Level 165 Potassium Level 3.4 L Sodium Level 138 Medications Medications Current Medications Ondansetron HCl (Zofran Inj) 4 mg Q6H PRN IV NAUSEA AND/OR VOMITING; Start 12/23 at 16:30 Nitroglycerin (Nitroglycerin (Sl Tab) 0.4 Mg) 1 tab Q5M PRN SL CHEST PAIN; Start 12/23/16 at 16:30 Acetaminophen (Tylenol Supp) 650 mg Q4H PRN [place] PAIN LEVEL 1-3 OR FEVER Last administered on 12/25/16 01:06; Admin Dose 650 MG; Start 12/23/16 at 16:30 Bisacodyl (Dulcolax) 5 mg DAILY PRN PO CONSTIPATION; Start 12/23/16 at 16:30 IV Flush (NS 10 ml) 10 ml PRN PRN IV IV PROTOCOL; Start 01/03/17 at 16:30 Morphine Sulfate (morphine) 1 mg Q4H PRN IV PAIN LEVEL 7-10 Last administered on 01/08/17 22:19; Admin Dose 1 MG; Start 01/05/17 at 14:00 Lorazepam (Ativan) 2 mg Q1HWA PRN IV AGITATION Last administered on 01/14/17 21:13; Admin Dose 2 MG; Start 01/06/17 at 09:30 Metoprolol Tartrate (Lopressor) 25 mg BID PO Last administered on 01/17/17 20: 33; Admin Dose 25 MG; Start 01/08/17 at 21:00 Furosemide (Lasix) 20 mg DAILY IV Last administered on 01/17/17 09:19; Admin Dose 20 MG; Start 01/08/17 at 15:00 Haloperidol (Haldol) 1 mg Q8H PRN IM AGITATION Last administered on 01/09/17 12:23; Admin Dose 1 MG; Start 01/08/17 at 23:30 Quetiapine Fumarate (Seroquel) 75 mg BID PO Last administered on 01/17/17 20:33 ; Admin Dose 75 MG; Start 01/11/17 at 21:00 Collagenase (Santyl) 1 applic DAILY TOP Last administered on 01/17/17 16:15; Admin Dose 1 APPLIC; Start 01/11/17 at 16:00 Pantoprazole (Protonix Tab) 40 mg DAILY@06 PO Last administered on 01/18/17 05: 45; Admin Dose 40 MG; Start 01/14/17 at 06:00 ANA RATLIFF 4, 2017 08:57
[2017-01-18 10:26] LABS: EOSINOPHILS # 0.2 10^3/ul (0.0-0.5); LYMPHOCYTES # 5.5 10^3/ul (0.8-2.9); MONOCYTE # 6.4 10^3/ul (0.3-0.9); MYELOCYTES # 1.1; NEUTROPHIL # 6.2 10^3/ul (1.6-7.5)
[2017-01-18 10:27] LABS: PLATELET ESTIMATE PLT APPEAR DECREASED
--- NOTE | 2017-01-18 16:28 | CONS ---
Date/Time of Note Date/Time of Note DATE: 01/18/17 TIME: 16:25 Assessment/Plan Assessment/Plan Additional Assessment/Plan Respiratory failure-improved s/p extubation Cardiomyopathy Influenza positive. Chronic myelogenous leukemia. Renal failure Thrombocytopenia Anemia. Hemodynamically stable Continue Metoprolol Continue Lasix Avoid Volume Overload Consultation Date/Type/Reason Admit Date/Time Dec 23, 2016 at 15:37 Constitutional: disoriented, requiring O2 Psychological: no complaints Past Medical History Medical History: cancer (CML), GERD Past Surgical History Past Surgical Hx: bowel resection Social History Alcohol Use: none Smoking Status: Current every day smoker Drug Use: none Exam/Review of Systems Vital Signs Vitals Vital Signs Date Time Temp Pulse Resp B/P Pulse Ox O2 Delivery O2 Flow Rate FiO2 01/18/17 07:33 98.5 81 16 118/61 93 01/15/17 20:00 Room Air Intake and Output 01/17/17 01/17/17 01/18/17 15:00 23:00 07:00 Intake Total 840 ml 120 ml Output Total 700 ml 500 ml Balance 140 ml -380 ml Exam Head: atraumatic, normocephalic Neck: non-tender, supple Respiratory: clear to auscultation Cardiovascular: regular rate and rhythm Gastrointestinal: nl liver, spleen, non-tender, soft Extremities: normal pulses Results Result Diagram: 01/18/17 0450 01/18/17 0450 Results 24 hrs Laboratory Tests Test 01/18/17 04:50 Anion Gap 12 Band Neutrophils % 7.0 H Blast Cells % 2.0 H Blastocytes # 0.4 Blood Urea Nitrogen 26 H Calcium Level 7.7 L Carbon Dioxide Level 30 Chloride Level 99 Creatinine 1.65 H Eosinophils # 0.2 Eosinophils % 1.0 Glucose Level 165 Hematocrit 26.0 L Hemoglobin 8.3 L Lymphocytes # 5.5 H Lymphocytes % 25.0 Mean Corpuscular Hemoglobin 29.3 Mean Corpuscular Hemoglobin Concent 31.9 L Mean Corpuscular Volume 91.9 Mean Platelet Volume 9.5 Metamyelocytes # 0.7 Metamyelocytes % 3.0 H Monocytes # 6.4 H Monocytes % 29.0 H Myelocytes # 1.1 Myelocytes % 5.0 H Neutrophils # 6.2 Neutrophils % 28.0 L Nucleated Red Blood Cells % 1.0 H Platelet Count 27 #*L Platelet Estimate PLT APPEAR DECREASED Potassium Level 3.4 L Red Blood Count 2.83 L Red Cell Distribution Width 16.4 H Sodium Level 138 White Blood Count 22.0 H Medications Medications Current Medications Ondansetron HCl (Zofran Inj) 4 mg Q6H PRN IV NAUSEA AND/OR VOMITING; Start 12/23 at 16:30 Nitroglycerin (Nitroglycerin (Sl Tab) 0.4 Mg) 1 tab Q5M PRN SL CHEST PAIN; Start 12/23/16 at 16:30 Acetaminophen (Tylenol Supp) 650 mg Q4H PRN [place] PAIN LEVEL 1-3 OR FEVER Last administered on 12/25/16 01:06; Admin Dose 650 MG; Start 12/23/16 at 16:30 Bisacodyl (Dulcolax) 5 mg DAILY PRN PO CONSTIPATION; Start 12/23/16 at 16:30 IV Flush (NS 10 ml) 10 ml PRN PRN IV IV PROTOCOL; Start 01/03/17 at 16:30 Morphine Sulfate (morphine) 1 mg Q4H PRN IV PAIN LEVEL 7-10 Last administered on 01/08/17 22:19; Admin Dose 1 MG; Start 01/05/17 at 14:00 Lorazepam (Ativan) 2 mg Q1HWA PRN IV AGITATION Last administered on 01/14/17 21:13; Admin Dose 2 MG; Start 01/06/17 at 09:30 Metoprolol Tartrate (Lopressor) 25 mg BID PO Last administered on 01/18/17 08: 55; Admin Dose 25 MG; Start 01/08/17 at 21:00 Furosemide (Lasix) 20 mg DAILY IV Last administered on 01/18/17 08:55; Admin Dose 20 MG; Start 01/08/17 at 15:00 Haloperidol (Haldol) 1 mg Q8H PRN IM AGITATION Last administered on 01/09/17 12:23; Admin Dose 1 MG; Start 01/08/17 at 23:30 Quetiapine Fumarate (Seroquel) 75 mg BID PO Last administered on 01/18/17 08:55 ; Admin Dose 75 MG; Start 01/11/17 at 21:00 Collagenase (Santyl) 1 applic DAILY TOP Last administered on 01/18/17 08:54; Admin Dose 1 APPLIC; Start 01/11/17 at 16:00 Pantoprazole (Protonix Tab) 40 mg DAILY@06 PO Last administered on 01/18/17 05: 45; Admin Dose 40 MG; Start 01/14/17 at 06:00 ARIELLE ESPINO M.D. Jan 18, 2017 16:28
--- NOTE | 2017-01-18 16:48 | PN ---
Date/Time of Note Date/Time of Note DATE: 01/18/17 TIME: 16:45 Assessment/Plan VTE Prophylaxis VTE Prophylaxis Intervention: anti-embolic stocking Lines/Catheters IV Catheter Type (from Nrs): PICC Line Central line still needed: No Urinary Cath still in place: No Assessment/Plan Assessment/Plan Patient is a 71 year old man with CMML admitted and treated for respiratory failure >Respiratory failure Markedly improved and currently without symptoms >CMML Patient has received 8 units of blood and hemoglobin slowly decreasing as expected. Would recommend prophylactic blood transfusion for hemoglobin less than 8 g/dL and for platelet count less than 10,000 in absence of active infection Subjective 24 Hr Interval Summary Free Text/Dictation Patient is awake, alert responsive, appears appropriate and able to follow command Exam/Review of Systems Vital Signs Vitals Vital Signs Date Time Temp Pulse Resp B/P Pulse Ox O2 Delivery O2 Flow Rate FiO2 01/18/17 07:33 98.5 81 16 118/61 93 01/15/17 20:00 Room Air Intake and Output 01/17/17 01/17/17 01/18/17 15:00 23:00 07:00 Intake Total 840 ml 120 ml Output Total 700 ml 500 ml Balance 140 ml -380 ml Exam Constitutional: alert, well developed Head: atraumatic, normocephalic Eyes: EOMI, nl conjunctiva Neck: non-tender, supple Respiratory: clear to auscultation, normal air movement Cardiovascular: regular rate and rhythm Gastrointestinal: nl liver, spleen, soft Extremities: normal pulses Neurological: [employer] II-XII intact, nl mental status Results Result Diagram: 01/18/17 0450 01/18/17 0450 Results 24 hrs Laboratory Tests Test 01/18/17 04:50 Anion Gap 12 Band Neutrophils % 7.0 H Blast Cells % 2.0 H Blastocytes # 0.4 Blood Urea Nitrogen 26 H Calcium Level 7.7 L Carbon Dioxide Level 30 Chloride Level 99 Creatinine 1.65 H Eosinophils # 0.2 Eosinophils % 1.0 Glucose Level 165 Hematocrit 26.0 L Hemoglobin 8.3 L Lymphocytes # 5.5 H Lymphocytes % 25.0 Mean Corpuscular Hemoglobin 29.3 Mean Corpuscular Hemoglobin Concent 31.9 L Mean Corpuscular Volume 91.9 Mean Platelet Volume 9.5 Metamyelocytes # 0.7 Metamyelocytes % 3.0 H Monocytes # 6.4 H Monocytes % 29.0 H Myelocytes # 1.1 Myelocytes % 5.0 H Neutrophils # 6.2 Neutrophils % 28.0 L Nucleated Red Blood Cells % 1.0 H Platelet Count 27 #*L Platelet Estimate PLT APPEAR DECREASED Potassium Level 3.4 L Red Blood Count 2.83 L Red Cell Distribution Width 16.4 H Sodium Level 138 White Blood Count 22.0 H Medications Medications Current Medications Ondansetron HCl (Zofran Inj) 4 mg Q6H PRN IV NAUSEA AND/OR VOMITING; Start 12/23 at 16:30 Nitroglycerin (Nitroglycerin (Sl Tab) 0.4 Mg) 1 tab Q5M PRN SL CHEST PAIN; Start 12/23/16 at 16:30 Acetaminophen (Tylenol Supp) 650 mg Q4H PRN [place] PAIN LEVEL 1-3 OR FEVER Last administered on 12/25/16 01:06; Admin Dose 650 MG; Start 12/23/16 at 16:30 Bisacodyl (Dulcolax) 5 mg DAILY PRN PO CONSTIPATION; Start 12/23/16 at 16:30 IV Flush (NS 10 ml) 10 ml PRN PRN IV IV PROTOCOL; Start 01/03/17 at 16:30 Morphine Sulfate (morphine) 1 mg Q4H PRN IV PAIN LEVEL 7-10 Last administered on 01/08/17 22:19; Admin Dose 1 MG; Start 01/05/17 at 14:00 Lorazepam (Ativan) 2 mg Q1HWA PRN IV AGITATION Last administered on 01/14/17 21:13; Admin Dose 2 MG; Start 01/06/17 at 09:30 Metoprolol Tartrate (Lopressor) 25 mg BID PO Last administered on 01/18/17 08: 55; Admin Dose 25 MG; Start 01/08/17 at 21:00 Furosemide (Lasix) 20 mg DAILY IV Last administered on 01/18/17 08:55; Admin Dose 20 MG; Start 01/08/17 at 15:00 Haloperidol (Haldol) 1 mg Q8H PRN IM AGITATION Last administered on 01/09/17 12:23; Admin Dose 1 MG; Start 01/08/17 at 23:30 Quetiapine Fumarate (Seroquel) 75 mg BID PO Last administered on 01/18/17 08:55 ; Admin Dose 75 MG; Start 01/11/17 at 21:00 Collagenase (Santyl) 1 applic DAILY TOP Last administered on 01/18/17 08:54; Admin Dose 1 APPLIC; Start 01/11/17 at 16:00 Pantoprazole (Protonix Tab) 40 mg DAILY@06 PO Last administered on 01/18/17 05: 45; Admin Dose 40 MG; Start 01/14/17 at 06:00 DIANE NELSON MD Jan 18, 2017 16:48
[2017-01-18 19:00] VITALS: BP 105/56; RESP 18
--- NOTE | 2017-01-18 22:28 | CONS ---
Date/Time of Note Date/Time of Note DATE: 01/18/17 TIME: 22:26 Assessment/Plan Assessment/Plan Additional Assessment/Plan 1. Acute kidney injury, likely secondary to acute tubular necrosis in the setting of sepsis.-improved 2. Acute hypoxemic respiratory failure, multifactorial, secondary to sepsis and secondary to pulmonary congestion s/p extubation - stable 3. Acute pulmonary edema with influenza pneumonia.- now improved 4. History of congestive heart failure with diastolic heart failure. 5. History of chronic obstructive pulmonary disease. 6. History of gastroesophageal reflux disease. 7. History of smoking. 8. 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 9. Hypomagnesemia , Hypokalemia - replaced PLAN: Cr 1.54, electrolytes stable making good urine,Hematuria, urology following Bp stable will follow up Consultation Date/Type/Reason Admit Date/Time Dec 23, 2016 at 15:37 Initial Consult Date 12/23/16 Type of Consultation: NEPHROLOGY Reason for Consultation acute kidney injury Referring Provider: BEN COURTNEY MD 24 HR Interval Summary Free Text/Dictation No acute events overnight, BP stable, Cr 1.65, K 3.4 Exam/Review of Systems Vital Signs Vitals Vital Signs Date Time Temp Pulse Resp B/P Pulse Ox O2 Delivery O2 Flow Rate FiO2 01/18/17 19:00 98.7 74 18 105/56 95 01/15/17 20:00 Room Air Intake and Output 01/17/17 01/17/17 01/18/17 15:00 23:00 07:00 Intake Total 840 ml 120 ml Output Total 700 ml 500 ml Balance 140 ml -380 ml Exam Gen [place]: alert, more calm CV: S1S2, no M/G/R Lungs: coarse breath sounds throughout all lung masters, diminished at the bases , with end expiratory wheezing Abd: soft, NT/ND, +BS, EXT: no cyanosis Results Result Diagram: 01/18/17 04501/18/17 045 Results 24 hrs Laboratory Tests Test 01/18/17 04:50 Anion Gap 12 Band Neutrophils % 7.0 H Blast Cells % 2.0 H Blastocytes # 0.4 Blood Urea Nitrogen 26 H Calcium Level 7.7 L Carbon Dioxide Level 30 Chloride Level 99 Creatinine 1.65 H Eosinophils # 0.2 Eosinophils % 1.0 Glucose Level 165 Hematocrit 26.0 L Hemoglobin 8.3 L Lymphocytes # 5.5 H Lymphocytes % 25.0 Mean Corpuscular Hemoglobin 29.3 Mean Corpuscular Hemoglobin Concent 31.9 L Mean Corpuscular Volume 91.9 Mean Platelet Volume 9.5 Metamyelocytes # 0.7 Metamyelocytes % 3.0 H Monocytes # 6.4 H Monocytes % 29.0 H Myelocytes # 1.1 Myelocytes % 5.0 H Neutrophils # 6.2 Neutrophils % 28.0 L Nucleated Red Blood Cells % 1.0 H Platelet Count 27 #*L Platelet Estimate PLT APPEAR DECREASED Potassium Level 3.4 L Red Blood Count 2.83 L Red Cell Distribution Width 16.4 H Sodium Level 138 White Blood Count 22.0 H Medications Medications Current Medications Ondansetron HCl (Zofran Inj) 4 mg Q6H PRN IV NAUSEA AND/OR VOMITING; Start 12/23 at 16:30 Nitroglycerin (Nitroglycerin (Sl Tab) 0.4 Mg) 1 tab Q5M PRN SL CHEST PAIN; Start 12/23/16 at 16:30 Acetaminophen (Tylenol Supp) 650 mg Q4H PRN [place] PAIN LEVEL 1-3 OR FEVER Last administered on 12/25/16 01:06; Admin Dose 650 MG; Start 12/23/16 at 16:30 Bisacodyl (Dulcolax) 5 mg DAILY PRN PO CONSTIPATION; Start 12/23/16 at 16:30 IV Flush (NS 10 ml) 10 ml PRN PRN IV IV PROTOCOL; Start 01/03/17 at 16:30 Morphine Sulfate (morphine) 1 mg Q4H PRN IV PAIN LEVEL 7-10 Last administered on 01/08/17 22:19; Admin Dose 1 MG; Start 01/05/17 at 14:00 Lorazepam (Ativan) 2 mg Q1HWA PRN IV AGITATION Last administered on 01/14/17 21:13; Admin Dose 2 MG; Start 01/06/17 at 09:30 Metoprolol Tartrate (Lopressor) 25 mg BID PO Last administered on 01/18/17 08: 55; Admin Dose 25 MG; Start 01/08/17 at 21:00 Furosemide (Lasix) 20 mg DAILY IV Last administered on 01/18/17 08:55; Admin Dose 20 MG; Start 01/08/17 at 15:00 Haloperidol (Haldol) 1 mg Q8H PRN IM AGITATION Last administered on 01/09/17 12:23; Admin Dose 1 MG; Start 01/08/17 at 23:30 Quetiapine Fumarate (Seroquel) 75 mg BID PO Last administered on 01/18/17 20:13 ; Admin Dose 75 MG; Start 01/11/17 at 21:00 Collagenase (Santyl) 1 applic DAILY TOP Last administered on 01/18/17 08:54; Admin Dose 1 APPLIC; Start 01/11/17 at 16:00 Pantoprazole (Protonix Tab) 40 mg DAILY@06 PO Last administered on 01/18/17 05: 45; Admin Dose 40 MG; Start 01/14/17 at 06:00 GILL PEREIRA MD Jan 18, 2017 22:27
[2017-01-19 06:02] LABS: ADD SCAN DIFF NO
[2017-01-19] MEDS: PANTOPRAZOLE (EC) 40 MG TAB PO SCH (06:02)
[2017-01-19 06:16] LABS: ABNORMAL IP MESSAGE 1; HEMATOCRIT 26.8 % (42.0-52.0); HEMOGLOBIN 8.6 g/dl (14.0-18.0); MEAN CORPUSCULAR HEMOGLOBIN 29.2 pg (29.0-33.0); MEAN CORPUSCULAR HGB CONC 32.1 g/dl (32.0-37.0); MEAN CORPUSCULAR VOLUME 90.8 fl (82.0-101.0); RED BLOOD COUNT 2.95 10^6/ul (4.70-6.10); RED CELL DISTRIBUTION WIDTH 16.8 % (11.5-14.5); WHITE BLOOD COUNT 24.6 10^3/ul (4.8-10.8)
[2017-01-19 06:51] LABS: POTASSIUM 4.2 mmol/L (3.5-5.1)
[2017-01-19 06:52] LABS: PLATELET COUNT 19 10^3/UL (140-415)
[2017-01-19 06:54] LABS: CREATININE 1.59 mg/dl (0.61-1.24)
[2017-01-19 06:55] LABS: CALCIUM 8.4 mg/dl (8.4-10.2)
[2017-01-19 07:45] VITALS: BP 111/64; RESP 20
[2017-01-19] MEDS: QUETIAPINE 25 MG TAB PO SCH ×2 (08:36→20:50)
[2017-01-19] MEDS: METOPROLOL 25 MG TAB PO SCH ×2 (08:37→20:50)
[2017-01-19] MEDS: FUROSEMIDE 20 MG INJ IV SCH (08:37)
[2017-01-19] MEDS: COLLAGENASE 30 GM TUBE TOP SCH (08:45)
[2017-01-19 10:07] LABS: EOSINOPHILS # 0.2 10^3/ul (0.0-0.5); LYMPHOCYTES # 6.9 10^3/ul (0.8-2.9); MONOCYTE # 8.6 10^3/ul (0.3-0.9); MYELOCYTES # 0.5; NEUTROPHIL # 4.4 10^3/ul (1.6-7.5)
[2017-01-19 10:08] LABS: PLATELET ESTIMATE PLT APPEAR DECREASED
--- NOTE | 2017-01-19 11:13 | CONS ---
Date/Time of Note Date/Time of Note DATE: 01/19/17 TIME: 11:11 Assessment/Plan Assessment/Plan Additional Assessment/Plan 1. Acute kidney injury, likely secondary to acute tubular necrosis in the setting of sepsis.-improved 2. Acute hypoxemic respiratory failure, multifactorial, secondary to sepsis and secondary to pulmonary congestion s/p extubation - stable 3. Acute pulmonary edema with influenza pneumonia.- now improved 4. History of congestive heart failure with diastolic heart failure. 5. History of chronic obstructive pulmonary disease. 6. History of gastroesophageal reflux disease. 7. History of smoking. 8. 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 9. Hypomagnesemia , Hypokalemia - replaced PLAN: Cr 1.59, electrolytes stable making good urine,Hematuria, urology following Bp stable will follow up Consultation Date/Type/Reason Admit Date/Time Dec 23, 2016 at 15:37 Initial Consult Date 12/23/16 Type of Consultation: NEPHROLOGY Referring Provider: BEN COURTNEY MD 24 HR Interval Summary Free Text/Dictation no acute events, K stable, Cr 1.59, less agitated Exam/Review of Systems Vital Signs Vitals Vital Signs Date Time Temp Pulse Resp B/P Pulse Ox O2 Delivery O2 Flow Rate FiO2 01/19/17 07:45 97.6 77 20 111/64 95 01/15/17 20:00 Room Air Intake and Output 01/18/17 01/18/17 01/19/17 15:00 23:00 07:00 Intake Total 760 ml Output Total 800 ml Balance -40 ml Exam Gen [place]: alert, more calm CV: S1S2, no M/G/R Lungs: coarse breath sounds throughout all lung masters, diminished at the bases , with end expiratory wheezing Abd: soft, NT/ND, +BS, EXT: no cyanosis Results Result Diagram: 01/19/17 0500 01/19/17 0500 Results 24 hrs Laboratory Tests Test 01/19/17 05:00 Anion Gap 14 Band Neutrophils % 12.0 H Blast Cells % 3.0 H Blastocytes # 0.7 Blood Urea Nitrogen 28 H Calcium Level 8.4 Carbon Dioxide Level 30 Chloride Level 100 Creatinine 1.59 H Eosinophils # 0.2 Eosinophils % 1.0 Glucose Level 95 # Hematocrit 26.8 L Hemoglobin 8.6 L Lymphocytes # 6.9 H Lymphocytes % 28.0 Mean Corpuscular Hemoglobin 29.2 Mean Corpuscular Hemoglobin Concent 32.1 Mean Corpuscular Volume 90.8 Mean Platelet Volume 10.0 Metamyelocytes # 0.2 Metamyelocytes % 1.0 H Monocytes # 8.6 H Monocytes % 35.0 H Myelocytes # 0.5 Myelocytes % 2.0 H Neutrophils # 4.4 Neutrophils % 18.0 L Platelet Count 19 #*L Platelet Estimate PLT APPEAR DECREASED Potassium Level 4.2 Red Blood Count 2.95 L Red Cell Distribution Width 16.8 H Sodium Level 140 White Blood Count 24.6 H Medications Medications Current Medications Ondansetron HCl (Zofran Inj) 4 mg Q6H PRN IV NAUSEA AND/OR VOMITING; Start 12/23 at 16:30 Nitroglycerin (Nitroglycerin (Sl Tab) 0.4 Mg) 1 tab Q5M PRN SL CHEST PAIN; Start 12/23/16 at 16:30 Acetaminophen (Tylenol Supp) 650 mg Q4H PRN [place] PAIN LEVEL 1-3 OR FEVER Last administered on 12/25/16 01:06; Admin Dose 650 MG; Start 12/23/16 at 16:30 Bisacodyl (Dulcolax) 5 mg DAILY PRN PO CONSTIPATION; Start 12/23/16 at 16:30 IV Flush (NS 10 ml) 10 ml PRN PRN IV IV PROTOCOL; Start 01/03/17 at 16:30 Morphine Sulfate (morphine) 1 mg Q4H PRN IV PAIN LEVEL 7-10 Last administered on 01/08/17 22:19; Admin Dose 1 MG; Start 01/05/17 at 14:00 Lorazepam (Ativan) 2 mg Q1HWA PRN IV AGITATION Last administered on 01/14/17 21:13; Admin Dose 2 MG; Start 01/06/17 at 09:30 Metoprolol Tartrate (Lopressor) 25 mg BID PO Last administered on 01/19/17 08: 37; Admin Dose 25 MG; Start 01/08/17 at 21:00 Furosemide (Lasix) 20 mg DAILY IV Last administered on 01/19/17 08:37; Admin Dose 20 MG; Start 01/08/17 at 15:00 Haloperidol (Haldol) 1 mg Q8H PRN IM AGITATION Last administered on 2/23/17at 12:23; Admin Dose 1 MG; Start 01/08/17 at 23:30 Quetiapine Fumarate (Seroquel) 75 mg BID PO Last administered on 01/19/17 08:36 ; Admin Dose 75 MG; Start 01/11/17 at 21:00 Collagenase (Santyl) 1 applic DAILY TOP Last administered on 01/19/17 08:45; Admin Dose 1 APPLIC; Start 01/11/17 at 16:00 Pantoprazole (Protonix Tab) 40 mg DAILY@06 PO Last administered on 01/19/17 06: 02; Admin Dose 40 MG; Start 01/14/17 at 06:00 GILL PEREIRA MD Jan 19, 2017 11:13
--- NOTE | 2017-01-19 13:02 | PN ---
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 * Encephalopathy (Acute): per family patient was alert / oriented and functioning prior to admission / earlier was requiring 1:1 sitter / now no sitter x 3 days - Continue seroquel / Haldol prn - improved now - for intermittent agitation - monitor for now * Sepsis - 2/2 to Influenza / PNA : both resolved - monitor - Patient remains off all abx - monitor * Acute Hypoxemic Resp failure 2/2 PNA and CHF: Improved / now extubated and stable on RA * -Continue supportive care + Strict aspiration precautions * CMML / MDS +Pulmonary nodules ?mets - f/u CBC daily and Heme/Onc rec's * Severe Anemia 2/2 MDS : Has had 9units PRBCs so far, H/H stable * monitor * Severe Platelet refractory thrombocytopenia : Has also had 7 units platelets so far / Nose bleeds have resolved, plts = 37 -> 29 -> 10 -> 34 -> 27-> 19. Pt had plt transfusion 3 days ago * f/u CBC daily * monitor, continue further transfusion per Heme/Onc rec's (pRBC if Hgb < 8, and plt if < 10) * Acute Renal failure : Resolved / Cr WNL * monitor, Optimize electrolytes * CHF-systolic and diastolic acute on chronic : compensated * NSTEMI type 2 :med mgt * COPD : stable * Dysphagia 2/2 encephalopathy * continue Puree diet * Cardiomyopathy with decreased left ventricular ejection fraction, last being approximately 45% to 50% by echo 11/2016. * Hematuria : resolved - was likely 2/2 Leyva trauma from patient pulling + Thrombocytopenia * - monitor PROPHYLAXIS: IV PPI / SCDs DISPO: to SNF vs ARU vs home with HHPT and nursing Problems: Subjective 24 Hr Interval Summary Free Text/Dictation No acute events overnight. Exam/Review of Systems Vital Signs Vitals Vital Signs Date Time Temp Pulse Resp B/P Pulse Ox O2 Delivery O2 Flow Rate FiO2 01/19/17 07:45 97.6 77 20 111/64 95 01/15/17 20:00 Room Air Intake and Output 01/18/17 01/18/17 01/19/17 15:00 23:00 07:00 Intake Total 760 ml Output Total 800 ml Balance -40 ml Exam Constitutional: alert, frail, other (calm presently) Psych: confusion (occ) Head: atraumatic, normocephalic Eyes: PERRL ENMT: mucosa pink and moist Neck: supple Respiratory: clear to auscultation, diminished breath sounds Cardiovascular: regular rate and rhythm, No murmurs/extra sounds Gastrointestinal: bowel sounds, non-tender, soft Extremities: No edema Neurological: less confused Results Result Diagram: 01/19/17 0500 01/19/17 0500 Results 24 hrs Laboratory Tests Test 01/19/17 05:00 Anion Gap 14 Band Neutrophils % 12.0 H Blast Cells % 3.0 H Blastocytes # 0.7 Blood Urea Nitrogen 28 H Calcium Level 8.4 Carbon Dioxide Level 30 Chloride Level 100 Creatinine 1.59 H Eosinophils # 0.2 Eosinophils % 1.0 Glucose Level 95 # Hematocrit 26.8 L Hemoglobin 8.6 L Lymphocytes # 6.9 H Lymphocytes % 28.0 Mean Corpuscular Hemoglobin 29.2 Mean Corpuscular Hemoglobin Concent 32.1 Mean Corpuscular Volume 90.8 Mean Platelet Volume 10.0 Metamyelocytes # 0.2 Metamyelocytes % 1.0 H Monocytes # 8.6 H Monocytes % 35.0 H Myelocytes # 0.5 Myelocytes % 2.0 H Neutrophils # 4.4 Neutrophils % 18.0 L Platelet Count 19 #*L Platelet Estimate PLT APPEAR DECREASED Potassium Level 4.2 Red Blood Count 2.95 L Red Cell Distribution Width 16.8 H Sodium Level 140 White Blood Count 24.6 H Medications Medications Current Medications Ondansetron HCl (Zofran Inj) 4 mg Q6H PRN IV NAUSEA AND/OR VOMITING; Start 12/23 at 16:30 Nitroglycerin (Nitroglycerin (Sl Tab) 0.4 Mg) 1 tab Q5M PRN SL CHEST PAIN; Start 12/23/16 at 16:30 Acetaminophen (Tylenol Supp) 650 mg Q4H PRN [place] PAIN LEVEL 1-3 OR FEVER Last administered on 12/25/16 01:06; Admin Dose 650 MG; Start 12/23/16 at 16:30 Bisacodyl (Dulcolax) 5 mg DAILY PRN PO CONSTIPATION; Start 12/23/16 at 16:30 IV Flush (NS 10 ml) 10 ml PRN PRN IV IV PROTOCOL; Start 01/03/17 at 16:30 Morphine Sulfate (morphine) 1 mg Q4H PRN IV PAIN LEVEL 7-10 Last administered on 01/08/17 22:19; Admin Dose 1 MG; Start 01/05/17 at 14:00 Lorazepam (Ativan) 2 mg Q1HWA PRN IV AGITATION Last administered on 01/14/17 21:13; Admin Dose 2 MG; Start 01/06/17 at 09:30 Metoprolol Tartrate (Lopressor) 25 mg BID PO Last administered on 01/19/17 08: 37; Admin Dose 25 MG; Start 01/08/17 at 21:00 Furosemide (Lasix) 20 mg DAILY IV Last administered on 01/19/17 08:37; Admin Dose 20 MG; Start 01/08/17 at 15:00 Haloperidol (Haldol) 1 mg Q8H PRN IM AGITATION Last administered on 01/09/17 12:23; Admin Dose 1 MG; Start 01/08/17 at 23:30 Quetiapine Fumarate (Seroquel) 75 mg BID PO Last administered on 01/19/17 08:36 ; Admin Dose 75 MG; Start 01/11/17 at 21:00 Collagenase (Santyl) 1 applic DAILY TOP Last administered on 01/19/17 08:45; Admin Dose 1 APPLIC; Start 01/11/17 at 16:00 Pantoprazole (Protonix Tab) 40 mg DAILY@06 PO Last administered on 01/19/17 06: 02; Admin Dose 40 MG; Start 01/14/17 at 06:00 ANA RATLIFF Jan 19, 2017 13:02
--- NOTE | 2017-01-19 14:54 | CONS ---
Date/Time of Note Date/Time of Note DATE: 01/19/17 TIME: 14:53 Assessment/Plan Assessment/Plan Additional Assessment/Plan Respiratory failure-improved s/p extubation Cardiomyopathy Influenza positive. Chronic myelogenous leukemia. Renal failure Thrombocytopenia Anemia. Leucocytosis Hemodynamically stable Continue Metoprolol Continue Lasix Avoid Volume Overload Continue Protonix Consultation Date/Type/Reason Admit Date/Time Dec 23, 2016 at 15:37 Initial Consult Date 12/24/16 Type of Consultation: NEPHROLOGY Referring Provider: BEN COURTNEY MD Exam/Review of Systems Vital Signs Vitals Vital Signs Date Time Temp Pulse Resp B/P Pulse Ox O2 Delivery O2 Flow Rate FiO2 01/19/17 07:45 97.6 77 20 111/64 95 01/15/17 20:00 Room Air Intake and Output 01/18/17 01/18/17 01/19/17 15:00 23:00 07:00 Intake Total 760 ml Output Total 800 ml Balance -40 ml Exam Head: atraumatic, normocephalic Neck: non-tender, supple Respiratory: clear to auscultation Cardiovascular: regular rate and rhythm Gastrointestinal: nl liver, spleen, non-tender, soft Extremities: normal pulses Results Result Diagram: 01/19/17 0500 01/19/17 0500 Results 24 hrs Laboratory Tests Test 01/19/17 05:00 Anion Gap 14 Band Neutrophils % 12.0 H Blast Cells % 3.0 H Blastocytes # 0.7 Blood Urea Nitrogen 28 H Calcium Level 8.4 Carbon Dioxide Level 30 Chloride Level 100 Creatinine 1.59 H Eosinophils # 0.2 Eosinophils % 1.0 Glucose Level 95 # Hematocrit 26.8 L Hemoglobin 8.6 L Lymphocytes # 6.9 H Lymphocytes % 28.0 Mean Corpuscular Hemoglobin 29.2 Mean Corpuscular Hemoglobin Concent 32.1 Mean Corpuscular Volume 90.8 Mean Platelet Volume 10.0 Metamyelocytes # 0.2 Metamyelocytes % 1.0 H Monocytes # 8.6 H Monocytes % 35.0 H Myelocytes # 0.5 Myelocytes % 2.0 H Neutrophils # 4.4 Neutrophils % 18.0 L Platelet Count 19 #*L Platelet Estimate PLT APPEAR DECREASED Potassium Level 4.2 Red Blood Count 2.95 L Red Cell Distribution Width 16.8 H Sodium Level 140 White Blood Count 24.6 H Medications Medications Current Medications Ondansetron HCl (Zofran Inj) 4 mg Q6H PRN IV NAUSEA AND/OR VOMITING; Start 12/23 at 16:30 Nitroglycerin (Nitroglycerin (Sl Tab) 0.4 Mg) 1 tab Q5M PRN SL CHEST PAIN; Start 12/23/16 at 16:30 Acetaminophen (Tylenol Supp) 650 mg Q4H PRN [place] PAIN LEVEL 1-3 OR FEVER Last administered on 12/25/16 01:06; Admin Dose 650 MG; Start 12/23/16 at 16:30 Bisacodyl (Dulcolax) 5 mg DAILY PRN PO CONSTIPATION; Start 12/23/16 at 16:30 IV Flush (NS 10 ml) 10 ml PRN PRN IV IV PROTOCOL; Start 01/03/17 at 16:30 Morphine Sulfate (morphine) 1 mg Q4H PRN IV PAIN LEVEL 7-10 Last administered on 01/08/17 22:19; Admin Dose 1 MG; Start 01/05/17 at 14:00 Lorazepam (Ativan) 2 mg Q1HWA PRN IV AGITATION Last administered on 01/14/17 21:13; Admin Dose 2 MG; Start 01/06/17 at 09:30 Metoprolol Tartrate (Lopressor) 25 mg BID PO Last administered on 01/19/17 08: 37; Admin Dose 25 MG; Start 01/08/17 at 21:00 Furosemide (Lasix) 20 mg DAILY IV Last administered on 01/19/17 08:37; Admin Dose 20 MG; Start 01/08/17 at 15:00 Haloperidol (Haldol) 1 mg Q8H PRN IM AGITATION Last administered on 01/09/17 12:23; Admin Dose 1 MG; Start 01/08/17 at 23:30 Quetiapine Fumarate (Seroquel) 75 mg BID PO Last administered on 01/19/17 08:36 ; Admin Dose 75 MG; Start 01/11/17 at 21:00 Collagenase (Santyl) 1 applic DAILY TOP Last administered on 01/19/17 08:45; Admin Dose 1 APPLIC; Start 01/11/17 at 16:00 Pantoprazole (Protonix Tab) 40 mg DAILY@06 PO Last administered on 01/19/17 06: 02; Admin Dose 40 MG; Start 01/14/17 at 06:00 ARIELLE ESPINO M.D. Jan 19, 2017 14:54
--- NOTE | 2017-01-19 15:06 | PN ---
Date/Time of Note Date/Time of Note DATE: 01/19/17 TIME: 15:03 Assessment/Plan VTE Prophylaxis VTE Prophylaxis Intervention: anti-embolic stocking Lines/Catheters IV Catheter Type (from Nrs): PICC Line Central line still needed: Yes Urinary Cath still in place: No Assessment/Plan Assessment/Plan Patient is a 71 year old man with CMML admitted for viral pneumonitis complicated by respiratory failure >CMML Patient has been refractory to therapy Currently hemoglobin continues to be stable and would transfuse for hemoglobin less than 8 g/dL Platelet transfusion for platelet count less than 10,000 or clinical bleeding. He has no signs of bleeding at this time. Continue to monitor CBC Dr Pryor to resume his care tomorrow. Subjective 24 Hr Interval Summary Free Text/Dictation Patient awake, alert, responsive, eating independently Exam/Review of Systems Vital Signs Vitals Vital Signs Date Time Temp Pulse Resp B/P Pulse Ox O2 Delivery O2 Flow Rate FiO2 01/19/17 07:45 97.6 77 20 111/64 95 01/15/17 20:00 Room Air Intake and Output 01/18/17 01/18/17 01/19/17 15:00 23:00 07:00 Intake Total 760 ml Output Total 800 ml Balance -40 ml Exam Constitutional: alert, oriented Head: atraumatic, normocephalic Eyes: EOMI, nl conjunctiva Neck: non-tender, supple Respiratory: clear to auscultation, normal air movement Cardiovascular: nl pulses, regular rate and rhythm Gastrointestinal: soft Musculoskeletal: nl extremities to inspection Extremities: normal pulses (no edema) Results Result Diagram: 01/19/17 0500 01/19/17 0500 Results 24 hrs Laboratory Tests Test 01/19/17 05:00 Anion Gap 14 Band Neutrophils % 12.0 H Blast Cells % 3.0 H Blastocytes # 0.7 Blood Urea Nitrogen 28 H Calcium Level 8.4 Carbon Dioxide Level 30 Chloride Level 100 Creatinine 1.59 H Eosinophils # 0.2 Eosinophils % 1.0 Glucose Level 95 # Hematocrit 26.8 L Hemoglobin 8.6 L Lymphocytes # 6.9 H Lymphocytes % 28.0 Mean Corpuscular Hemoglobin 29.2 Mean Corpuscular Hemoglobin Concent 32.1 Mean Corpuscular Volume 90.8 Mean Platelet Volume 10.0 Metamyelocytes # 0.2 Metamyelocytes % 1.0 H Monocytes # 8.6 H Monocytes % 35.0 H Myelocytes # 0.5 Myelocytes % 2.0 H Neutrophils # 4.4 Neutrophils % 18.0 L Platelet Count 19 #*L Platelet Estimate PLT APPEAR DECREASED Potassium Level 4.2 Red Blood Count 2.95 L Red Cell Distribution Width 16.8 H Sodium Level 140 White Blood Count 24.6 H Medications Medications Current Medications Ondansetron HCl (Zofran Inj) 4 mg Q6H PRN IV NAUSEA AND/OR VOMITING; Start 12/23 at 16:30 Nitroglycerin (Nitroglycerin (Sl Tab) 0.4 Mg) 1 tab Q5M PRN SL CHEST PAIN; Start 12/23/16 at 16:30 Acetaminophen (Tylenol Supp) 650 mg Q4H PRN [place] PAIN LEVEL 1-3 OR FEVER Last administered on 12/25/16 01:06; Admin Dose 650 MG; Start 12/23/16 at 16:30 Bisacodyl (Dulcolax) 5 mg DAILY PRN PO CONSTIPATION; Start 12/23/16 at 16:30 IV Flush (NS 10 ml) 10 ml PRN PRN IV IV PROTOCOL; Start 01/03/17 at 16:30 Morphine Sulfate (morphine) 1 mg Q4H PRN IV PAIN LEVEL 7-10 Last administered on 01/08/17 22:19; Admin Dose 1 MG; Start 01/05/17 at 14:00 Lorazepam (Ativan) 2 mg Q1HWA PRN IV AGITATION Last administered on 01/14/17 21:13; Admin Dose 2 MG; Start 01/06/17 at 09:30 Metoprolol Tartrate (Lopressor) 25 mg BID PO Last administered on 01/19/17 08: 37; Admin Dose 25 MG; Start 01/08/17 at 21:00 Furosemide (Lasix) 20 mg DAILY IV Last administered on 01/19/17 08:37; Admin Dose 20 MG; Start 01/08/17 at 15:00 Haloperidol (Haldol) 1 mg Q8H PRN IM AGITATION Last administered on 01/09/17 12:23; Admin Dose 1 MG; Start 01/08/17 at 23:30 Quetiapine Fumarate (Seroquel) 75 mg BID PO Last administered on 01/19/17 08:36 ; Admin Dose 75 MG; Start 01/11/17 at 21:00 Collagenase (Santyl) 1 applic DAILY TOP Last administered on 01/19/17 08:45; Admin Dose 1 APPLIC; Start 01/11/17 at 16:00 Pantoprazole (Protonix Tab) 40 mg DAILY@06 PO Last administered on 01/19/17 06: 02; Admin Dose 40 MG; Start 01/14/17 at 06:00 DIANE NELSON MD Jan 19, 2017 15:06
[2017-01-19 20:30] VITALS: BP 112/64; RESP 18
[2017-01-20] MEDS: PANTOPRAZOLE (EC) 40 MG TAB PO SCH (05:14)
[2017-01-20 06:01] LABS: ADD SCAN DIFF NO
[2017-01-20 06:15] LABS: ABNORMAL IP MESSAGE 1; HEMATOCRIT 25.2 % (42.0-52.0); HEMOGLOBIN 8.3 g/dl (14.0-18.0); MEAN CORPUSCULAR HEMOGLOBIN 29.9 pg (29.0-33.0); MEAN CORPUSCULAR HGB CONC 32.9 g/dl (32.0-37.0); MEAN CORPUSCULAR VOLUME 90.6 fl (82.0-101.0); RED BLOOD COUNT 2.78 10^6/ul (4.70-6.10); RED CELL DISTRIBUTION WIDTH 16.4 % (11.5-14.5); WHITE BLOOD COUNT 21.4 10^3/ul (4.8-10.8)
[2017-01-20 06:20] LABS: MEAN PLATELET VOLUME 12.4 fl (7.4-10.4)
[2017-01-20 06:21] LABS: PLATELET COUNT 10 10^3/UL (140-415)
[2017-01-20 06:25] LABS: MAGNESIUM 1.6 mg/dl (1.7-2.5)
[2017-01-20 06:28] LABS: POTASSIUM 4.2 mmol/L (3.5-5.1)
[2017-01-20 06:30] LABS: CREATININE 1.69 mg/dl (0.61-1.24)
[2017-01-20 06:31] LABS: CALCIUM 8.4 mg/dl (8.4-10.2)
[2017-01-20 07:35] VITALS: BP 116/58; RESP 18
--- NOTE | 2017-01-20 08:16 | CONS ---
DATE OF ADMISSION: 12/23/2016 DATE OF CONSULTATION: 01/20/2017 SUBJECTIVE: The patient states he is doing well. Denies chest pain or shortness of breath. No cou gh. OBJECTIVE: VITAL SIGNS: Temperature 98.5, pulse 75 per minute and regular, respirations 18, blood pressure 116 /58, and pulse oximetry is 93% on room air. SKIN: Scattered ecchymoses and purpura. No rash. HEENT: Normocephalic. No evidence of trauma. There is no scleral icterus, no mucosal purpura. NECK: Supple, no jugular venous distention or thyroid enlargement. CHEST: Clear to auscultation and percussion. No rhonchi, wheezes, rales or rubs. NODES: No palpable lymphadenopathy. HEART: Regular sinus rhythm, no S3, S4, or murmurs. No rubs. ABDOMEN: Soft, no masses, no ascites. The spleen is still palpable at 4 cm below left costal sarah n in the anterior axillary line. EXTREMITIES: No clubbing, edema, or cyanosis. No palpable cords or Homans sign. NEUROLOGIC: LABORATORY: White count 24,100 with an absolute neutrophil count today to be 6100. There are 38% m onocytes. Hemoglobin 8.3, hematocrit 25.2, platelet count is 10,000. Sodium 136, potassium is 4.2, BUN 31, creatinine 1.69. ASSESSMENT: 1. Viral respiratory failure due to viral pneumonitis, resolved. 2. Chronic myelomonocytic leukemia. The patient will receive 1 unit of platelet pheresis today. We will transfuse when patient's platel et count is 10,000 or below. There is no other active therapy to be carried out in the hospital at this time. Dictated By: OPAL MOSES MD SR/NTS Conf#: [id number] DID#: [id number]
[2017-01-20] MEDS: METOPROLOL 25 MG TAB PO SCH ×2 (09:09→21:40)
[2017-01-20] MEDS: FUROSEMIDE 20 MG INJ IV SCH (09:10)
[2017-01-20] MEDS: QUETIAPINE 25 MG TAB PO SCH ×2 (09:32→21:40)
[2017-01-20] MEDS: COLLAGENASE 30 GM TUBE TOP SCH (09:35)
--- NOTE | 2017-01-20 10:03 | CONS ---
Date/Time of Note Date/Time of Note DATE: 01/20/17 TIME: 10:01 Assessment/Plan Assessment/Plan Additional Assessment/Plan 1. Acute kidney injury, likely secondary to acute tubular necrosis in the setting of sepsis.-improved 2. Acute hypoxemic respiratory failure, multifactorial, secondary to sepsis and secondary to pulmonary congestion s/p extubation - stable 3. Acute pulmonary edema with influenza pneumonia.- now improved 4. History of congestive heart failure with diastolic heart failure. 5. History of chronic obstructive pulmonary disease. 6. History of gastroesophageal reflux disease. 7. History of smoking. 8. 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 9. Hypomagnesemia , Hypokalemia - replaced PLAN: Cr 1.69, electrolytes stable making good urine,Hematuria, urology following Bp stable will follow up Consultation Date/Type/Reason Admit Date/Time Dec 23, 2016 at 15:37 Initial Consult Date 12/23/16 Type of Consultation: NEPHROLOGY Reason for Consultation Referring Provider: BEN COURTNEY MD 24 HR Interval Summary Free Text/Dictation no acute events overnight, pt more alert and calm today Exam/Review of Systems Vital Signs Vitals Vital Signs Date Time Temp Pulse Resp B/P Pulse Ox O2 Delivery O2 Flow Rate FiO2 01/20/17 07:35 98.5 75 18 116/58 93 01/19/17 20:30 Room Air Intake and Output 01/19/17 01/19/17 01/20/17 15:00 23:00 07:00 Intake Total 300 ml 600 ml 580 ml Output Total 700 ml 600 ml Balance -400 ml 0 ml 580 ml Exam Gen [place]: alert, more calm CV: S1S2, no M/G/R Lungs: coarse breath sounds throughout all lung masters, diminished at the bases , with end expiratory wheezing Abd: soft, NT/ND, +BS, EXT: no cyanosis Results Result Diagram: 01/20/17 0455 01/20/175 Results 24 hrs Laboratory Tests Test 01/20/17 04:55 Anion Gap 13 Basophils # 0.0 Basophils % 0.1 Blood Urea Nitrogen 31 H Calcium Level 8.4 Carbon Dioxide Level 29 Chloride Level 98 Creatinine 1.69 H Eosinophils # 0.1 Eosinophils % 0.5 Glucose Level 100 Hematocrit 25.2 L Hemoglobin 8.3 L Lymphocytes # 3.2 H Lymphocytes % 15.1 Magnesium Level 1.6 L Mean Corpuscular Hemoglobin 29.9 Mean Corpuscular Hemoglobin Concent 32.9 Mean Corpuscular Volume 90.6 Mean Platelet Volume 12.4 #H Monocytes # 8.2 H Monocytes % 38.4 H Neutrophils # 6.1 Neutrophils % 28.5 L Nucleated Red Blood Cells # 0.1 H Nucleated Red Blood Cells % 0.3 H Phosphorus Level 5.0 H Platelet Count 10 #*L Potassium Level 4.2 Red Blood Count 2.78 L Red Cell Distribution Width 16.4 H Sodium Level 136 White Blood Count 21.4 H Medications Medications Current Medications Ondansetron HCl (Zofran Inj) 4 mg Q6H PRN IV NAUSEA AND/OR VOMITING; Start 12/23 at 16:30 Nitroglycerin (Nitroglycerin (Sl Tab) 0.4 Mg) 1 tab Q5M PRN SL CHEST PAIN; Start 12/23/16 at 16:30 Acetaminophen (Tylenol Supp) 650 mg Q4H PRN [place] PAIN LEVEL 1-3 OR FEVER Last administered on 12/25/16 01:06; Admin Dose 650 MG; Start 12/23/16 at 16:30 Bisacodyl (Dulcolax) 5 mg DAILY PRN PO CONSTIPATION; Start 12/23/16 at 16:30 IV Flush (NS 10 ml) 10 ml PRN PRN IV IV PROTOCOL; Start 01/03/17 at 16:30 Morphine Sulfate (morphine) 1 mg Q4H PRN IV PAIN LEVEL 7-10 Last administered on 01/08/17 22:19; Admin Dose 1 MG; Start 01/05/17 at 14:00 Lorazepam (Ativan) 2 mg Q1HWA PRN IV AGITATION Last administered on 01/14/17 21:13; Admin Dose 2 MG; Start 01/06/17 at 09:30 Metoprolol Tartrate (Lopressor) 25 mg BID PO Last administered on 01/20/17 09: 09; Admin Dose 25 MG; Start 01/08/17 at 21:00 Furosemide (Lasix) 20 mg DAILY IV Last administered on 01/20/17 09:10; Admin Dose 20 MG; Start 01/08/17 at 15:00 Haloperidol (Haldol) 1 mg Q8H PRN IM AGITATION Last administered on 01/09/17 12:23; Admin Dose 1 MG; Start 01/08/17 at 23:30 Quetiapine Fumarate (Seroquel) 75 mg BID PO Last administered on 01/20/17 09:32 ; Admin Dose 75 MG; Start 01/11/17 at 21:00 Collagenase (Santyl) 1 applic DAILY TOP Last administered on 01/20/17 09:35; Admin Dose 1 APPLIC; Start 01/11/17 at 16:00 Pantoprazole (Protonix Tab) 40 mg DAILY@06 PO Last administered on 01/20/17 05: 14; Admin Dose 40 MG; Start 01/14/17 at 06:00 GILL PEREIRA MD Jan 20, 2017 10:03
--- NOTE | 2017-01-20 12:17 | PN ---
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 * Encephalopathy (Acute): per family patient was alert / oriented and functioning prior to admission / earlier was requiring 1:1 sitter / now no sitter x 3 days - Continue seroquel / Haldol prn - improved now * Sepsis - 2/2 to Influenza / PNA : both resolved - monitor - Patient remains off all abx * Acute Hypoxemic Resp failure 2/2 PNA and CHF: Improved / now extubated and stable on RA * -Continue supportive care + Strict aspiration precautions * CMML / MDS +Pulmonary nodules ?mets * Severe Anemia 2/2 MDS : Has had 9units PRBCs so far, H/H stable * Severe Platelet refractory thrombocytopenia : Has also had 7 units platelets so far / Nose bleeds have resolved, * Acute Renal failure : resolved / patient is likely at baseline renal function * CHF-systolic and diastolic acute on chronic : compensated * NSTEMI type 2 :med mgt * COPD : stable * Dysphagia 2/2 encephalopathy: improved * Cardiomyopathy with decreased left ventricular ejection fraction, last being approximately 45% to 50% by echo 11/2016. * Hematuria : resolved - was likely 2/2 Leyva trauma from patient pulling + Thrombocytopenia PLAN: planned for platelet transfusion today per hemeonc / may be d/c after that Family has declined SNF and will take patient home with HH Continue supportive care PROPHYLAXIS: IV PPI / SCDs DISPO: to SNF vs ARU vs home with HHPT and nursing Subjective 24 Hr Interval Summary Constitutional: improved, no complaints Exam/Review of Systems Vital Signs Vitals Vital Signs Date Time Temp Pulse Resp B/P Pulse Ox O2 Delivery O2 Flow Rate FiO2 01/20/17 07:35 98.5 75 18 116/58 93 01/19/17 20:30 Room Air Intake and Output 01/19/17 01/19/17 01/20/17 15:00 23:00 07:00 Intake Total 300 ml 600 ml 580 ml Output Total 700 ml 600 ml Balance -400 ml 0 ml 580 ml Exam Constitutional: alert, frail, other (calm presently) Psych: confusion (occ) Head: atraumatic, normocephalic Eyes: PERRL ENMT: mucosa pink and moist Neck: supple Respiratory: clear to auscultation, diminished breath sounds Cardiovascular: regular rate and rhythm, No murmurs/extra sounds Gastrointestinal: bowel sounds, non-tender, soft Extremities: No edema Neurological: less confused Results Result Diagram: 01/20/175 01/20/17 0455 Results 24 hrs Laboratory Tests Test 01/20/17 04:55 Anion Gap 13 Basophils # 0.0 Basophils % 0.1 Blood Urea Nitrogen 31 H Calcium Level 8.4 Carbon Dioxide Level 29 Chloride Level 98 Creatinine 1.69 H Eosinophils # 0.1 Eosinophils % 0.5 Glucose Level 100 Hematocrit 25.2 L Hemoglobin 8.3 L Lymphocytes # 3.2 H Lymphocytes % 15.1 Magnesium Level 1.6 L Mean Corpuscular Hemoglobin 29.9 Mean Corpuscular Hemoglobin Concent 32.9 Mean Corpuscular Volume 90.6 Mean Platelet Volume 12.4 #H Monocytes # 8.2 H Monocytes % 38.4 H Neutrophils # 6.1 Neutrophils % 28.5 L Nucleated Red Blood Cells # 0.1 H Nucleated Red Blood Cells % 0.3 H Phosphorus Level 5.0 H Platelet Count 10 #*L Potassium Level 4.2 Red Blood Count 2.78 L Red Cell Distribution Width 16.4 H Sodium Level 136 White Blood Count 21.4 H Medications Medications Current Medications Ondansetron HCl (Zofran Inj) 4 mg Q6H PRN IV NAUSEA AND/OR VOMITING; Start 12/23 at 16:30 Nitroglycerin (Nitroglycerin (Sl Tab) 0.4 Mg) 1 tab Q5M PRN SL CHEST PAIN; Start 12/23/16 at 16:30 Acetaminophen (Tylenol Supp) 650 mg Q4H PRN [place] PAIN LEVEL 1-3 OR FEVER Last administered on 12/25/16 01:06; Admin Dose 650 MG; Start 12/23/16 at 16:30 Bisacodyl (Dulcolax) 5 mg DAILY PRN PO CONSTIPATION; Start 12/23/16 at 16:30 IV Flush (NS 10 ml) 10 ml PRN PRN IV IV PROTOCOL; Start 01/03/17 at 16:30 Morphine Sulfate (morphine) 1 mg Q4H PRN IV PAIN LEVEL 7-10 Last administered on 01/08/17 22:19; Admin Dose 1 MG; Start 01/05/17 at 14:00 Lorazepam (Ativan) 2 mg Q1HWA PRN IV AGITATION Last administered on 01/14/17 21:13; Admin Dose 2 MG; Start 01/06/17 at 09:30 Metoprolol Tartrate (Lopressor) 25 mg BID PO Last administered on 01/20/17 09: 09; Admin Dose 25 MG; Start 01/08/17 at 21:00 Furosemide (Lasix) 20 mg DAILY IV Last administered on 01/20/17 09:10; Admin Dose 20 MG; Start 01/08/17 at 15:00 Haloperidol (Haldol) 1 mg Q8H PRN IM AGITATION Last administered on 01/09/17 12:23; Admin Dose 1 MG; Start 01/08/17 at 23:30 Quetiapine Fumarate (Seroquel) 75 mg BID PO Last administered on 01/20/17 09:32 ; Admin Dose 75 MG; Start 01/11/17 at 21:00 Collagenase (Santyl) 1 applic DAILY TOP Last administered on 01/20/17 09:35; Admin Dose 1 APPLIC; Start 01/11/17 at 16:00 Pantoprazole (Protonix Tab) 40 mg DAILY@06 PO Last administered on 01/20/17 05: 14; Admin Dose 40 MG; Start 01/14/17 at 06:00 EZE LYLES Jan 20, 2017 12:17
[2017-01-20 13:23] LABS: EOSINOPHILS # 0.2 10^3/ul (0.0-0.5); LYMPHOCYTES # 5.4 10^3/ul (0.8-2.9); MONOCYTE # 7.5 10^3/ul (0.3-0.9); MYELOCYTES # 0.2; NEUTROPHIL # 4.5 10^3/ul (1.6-7.5)
--- NOTE | 2017-01-20 13:47 | CONS ---
Date/Time of Note Date/Time of Note DATE: 01/20/17 TIME: 13:43 Assessment/Plan Assessment/Plan Chief Complaint/Hosp Course IMPRESSION: 1. Respiratory failure-improved s/p extubation/stable 2. Cardiomyopathy with decreased left ventricular ejection fraction, last being approximately 45% to 50% by echo 11/2016.-reasonable volume status by exam today 3. Hypotension, borderline. 4. Influenza positive. 5. History of chronic myelogenous leukemia. 6. Renal failure-slowly improving. 7. Thrombocytopenia, severe. 8. Anemia. 9. Leukocytosis. 10.CHF-systolic and diastolic acute on chronic 11.Positive troponin-likely demand event. Now trended negative Recc: -Tele -serial ecg's -Continue abx's and f/u cx data -Follow volume status closely and continue gentle daily lasix -Follow for bleeding complications/need for platelet transfusion -Follow platelet count closely with no asa due to sever thombocytopenia -Continue BB Problems: Consultation Date/Type/Reason Admit Date/Time Dec 23, 2016 at 15:37 Initial Consult Date 12/24/16 Type of Consultation: Cardiology Reason for Consultation Cardiomyopathy Referring Provider: BEN COURTNEY MD Exam/Review of Systems Vital Signs Vitals Vital Signs Date Time Temp Pulse Resp B/P Pulse Ox O2 Delivery O2 Flow Rate FiO2 01/20/17 07:35 98.5 75 18 116/58 93 01/19/17 20:30 Room Air Intake and Output 01/19/17 01/19/17 01/20/17 15:00 23:00 07:00 Intake Total 300 ml 600 ml 580 ml Output Total 700 ml 600 ml Balance -400 ml 0 ml 580 ml Exam Review of Systems: CONSTITUTIONAL: No fevers, chills. PULMONARY: No sob CARDIOVASCULAR: No chest pain/palpitations GASTROINTESTINAL: No nausea/vomiting. GENITOURINARY: No hematuria/dysuria. MUSCULOSKELETAL: No myagias/arthalgias. PSYCHIATRIC: The patient denies depression. NEUROLOGIC: No weakness Constitutional: alert, oriented Psych: no complaints Head: normocephalic ENMT: mucosa pink and moist Neck: supple Respiratory: diminished breath sounds (at bases/B) Cardiovascular: regular rate and rhythm Gastrointestinal: non-tender, soft Musculoskeletal: muscle tone Extremities: edema Neurological: other (No focal deficits) Results Result Diagram: 01/20/17 0455 01/20/17 0455 Results 24 hrs Laboratory Tests Test 01/20/17 04:55 Anion Gap 13 Band Neutrophils % 4.0 Basophils # Basophils % Blast Cells % 3.0 H Blastocytes # 0.6 Blood Urea Nitrogen 31 H Calcium Level 8.4 Carbon Dioxide Level 29 Chloride Level 98 Creatinine 1.69 H Differential Comment MANUAL DIFF Eosinophils # 0.2 Eosinophils % 1.0 Glucose Level 100 Hematocrit 25.2 L Hemoglobin 8.3 L Lymphocytes # 5.4 H Lymphocytes % 25.0 Magnesium Level 1.6 L Mean Corpuscular Hemoglobin 29.9 Mean Corpuscular Hemoglobin Concent 32.9 Mean Corpuscular Volume 90.6 Mean Platelet Volume 12.4 #H Metamyelocytes # 2.1 Metamyelocytes % 10.0 H Monocytes # 7.5 H Monocytes % 35.0 H Myelocytes # 0.2 Myelocytes % 1.0 H Neutrophils # 4.5 Neutrophils % 21.0 L Nucleated Red Blood Cells # Nucleated Red Blood Cells % Phosphorus Level 5.0 H Platelet Count 10 #*L Potassium Level 4.2 Red Blood Count 2.78 L Red Cell Distribution Width 16.4 H Sodium Level 136 White Blood Count 21.4 H Medications Medications Current Medications Ondansetron HCl (Zofran Inj) 4 mg Q6H PRN IV NAUSEA AND/OR VOMITING; Start 12/23 at 16:30 Nitroglycerin (Nitroglycerin (Sl Tab) 0.4 Mg) 1 tab Q5M PRN SL CHEST PAIN; Start 12/23/16 at 16:30 Acetaminophen (Tylenol Supp) 650 mg Q4H PRN AR PAIN LEVEL 1-3 OR FEVER Last administered on 12/25/16 01:06; Admin Dose 650 MG; Start 12/23/16 at 16:30 Bisacodyl (Dulcolax) 5 mg DAILY PRN PO CONSTIPATION; Start 12/23/16 at 16:30 IV Flush (NS 10 ml) 10 ml PRN PRN IV IV PROTOCOL; Start 01/03/17 at 16:30 Morphine Sulfate (morphine) 1 mg Q4H PRN IV PAIN LEVEL 7-10 Last administered on 01/08/17 22:19; Admin Dose 1 MG; Start 01/05/17 at 14:00 Lorazepam (Ativan) 2 mg Q1HWA PRN IV AGITATION Last administered on 01/14/17 21:13; Admin Dose 2 MG; Start 01/06/17 at 09:30 Metoprolol Tartrate (Lopressor) 25 mg BID PO Last administered on 01/20/17 09: 09; Admin Dose 25 MG; Start 01/08/17 at 21:00 Furosemide (Lasix) 20 mg DAILY IV Last administered on 01/20/17 09:10; Admin Dose 20 MG; Start 01/08/17 at 15:00 Haloperidol (Haldol) 1 mg Q8H PRN IM AGITATION Last administered on 01/09/17 12:23; Admin Dose 1 MG; Start 01/08/17 at 23:30 Quetiapine Fumarate (Seroquel) 75 mg BID PO Last administered on 01/20/17 09:32 ; Admin Dose 75 MG; Start 01/11/17 at 21:00 Collagenase (Santyl) 1 applic DAILY TOP Last administered on 01/20/17 09:35; Admin Dose 1 APPLIC; Start 01/11/17 at 16:00 Pantoprazole 40 mg 40 mg DAILY@06 PO Last administered on 01/20/17 05:14; Admin Dose 40 MG; Start 01/14/17 at 06:00 Magnesium Sulfate (Magnesium Sulfate 2 Gm/50 ml) 50 ml @ 25 mls/hr ONCE ONCE IVPB ; Start 01/20/17 at 14:00; Stop 01/20/17 at 15:59 MILENA VELA Jan 20, 2017 13:47
[2017-01-20] MEDS ORDERED: MAGNESIUM SULFATE 2 GM/50 ML 50 ML IVPB ONE (14:00)
[2017-01-20 15:46] VITALS: BP 100/56; PULSE 84; RESP 16
[2017-01-20 19:47] VITALS: BP 110/56; RESP 20
[2017-01-21] MEDS: PANTOPRAZOLE (EC) 40 MG TAB PO SCH (05:54)
[2017-01-21 06:05] LABS: ADD SCAN DIFF NO
[2017-01-21 06:13] LABS: ABNORMAL IP MESSAGE 1; HEMATOCRIT 23.7 % (42.0-52.0); HEMOGLOBIN 7.7 g/dl (14.0-18.0); MEAN CORPUSCULAR HEMOGLOBIN 29.3 pg (29.0-33.0); MEAN CORPUSCULAR HGB CONC 32.5 g/dl (32.0-37.0); MEAN CORPUSCULAR VOLUME 90.1 fl (82.0-101.0); MEAN PLATELET VOLUME 12.6 fl (7.4-10.4); RED BLOOD COUNT 2.63 10^6/ul (4.70-6.10); RED CELL DISTRIBUTION WIDTH 16.4 % (11.5-14.5); WHITE BLOOD COUNT 20.4 10^3/ul (4.8-10.8)
[2017-01-21 06:35] LABS: CALCIUM 8.5 mg/dl (8.4-10.2); CREATININE 1.71 mg/dl (0.61-1.24)
[2017-01-21 07:08] LABS: PLATELET COUNT 24 10^3/UL (140-415)
[2017-01-21 07:47] VITALS: BP 107/58; RESP 19
[2017-01-21] MEDS: QUETIAPINE 25 MG TAB PO SCH (08:29)
[2017-01-21] MEDS: COLLAGENASE 30 GM TUBE TOP SCH (08:38)
[2017-01-21] MEDS: FUROSEMIDE 20 MG INJ IV SCH (08:38)
[2017-01-21] MEDS: METOPROLOL 25 MG TAB PO SCH (09:00)
[2017-01-21 10:02] LABS: BASOPHIL # 0.2 10^3/ul (0.0-0.1); EOSINOPHILS # 0.2 10^3/ul (0.0-0.5); LYMPHOCYTES # 7.8 10^3/ul (0.8-2.9); MONOCYTE # 7.5 10^3/ul (0.3-0.9); MYELOCYTES # 0.8; NEUTROPHIL # 2.2 10^3/ul (1.6-7.5); PLATELET ESTIMATE PLT APPEAR DECREASED
[2017-01-21] MEDS ORDERED: METO-448 PO (11:34)
[2017-01-21] MEDS ORDERED: FURO-110 PO (11:34)
[2017-01-21] MEDS ORDERED: QUET25TA33 PO (11:34)
[2017-01-21] MEDS ORDERED: PANT40TA4 PO (11:34)
[2017-01-21] MEDS ORDERED: POTA8CAP PO (11:34)
[2017-01-21] MEDS ORDERED: QUET25TA26 PO (13:40)
--- NOTE | 2017-01-21 13:41 | PDOCDIS ---
Discharge Instructions DIAGNOSIS Discharge Diagnosis: Respiratory failure CONDITION Patient Condition: Stable HOME CARE INSTRUCTIONS: Special Diet: PUREED OTHER ORDERS: Other Orders: Please see Dr Rao in the office tomorrow. Name, Degree: Arcadio Rao MD Specialty: Oncology, Hematology Comments: Office Address: [address] [place], [place] [id number] Office Office EZE LYLES Jan 21, 2017 13:41
--- NOTE | 2017-01-21 13:58 | PN ---
Date/Time of Note Date/Time of Note DATE: 01/21/17 TIME: 13:54 Assessment/Plan VTE Prophylaxis VTE Prophylaxis Intervention: ambulation, other (thrombocytopenia) Lines/Catheters IV [facility] PICC Line Central line still needed: Yes Urinary Cath still in place: No Assessment/Plan Assessment/Plan Pt is clinically doing well. Pancytopenia persists, however. Platelet transfusion resulted in minor response with plt up to 24. Hgb 7.7 but pt is asymptomatic. He is being discharged per my discussion with Dr. Hong. Pt is asked to f/u with Dr Pryor regarding further treatment program. Also note that he is still azotemic with Cr 1.7. Subjective 24 Hr Interval Summary Free Text/Dictation Pt is recovering well. Exam/Review of Systems Vital Signs Vitals Vital Signs Date Time Temp Pulse Resp B/P Pulse Ox O2 Delivery O2 Flow Rate FiO2 01/21/17 07:47 98.0 79 19 107/58 96 01/20/17 15:46 Room Air Intake and Output 01/20/17 01/20/17 01/21/17 15:00 23:00 07:00 Intake Total 1428 ml 240 ml Output Total 550 ml 350 ml 450 ml Balance -550 ml 1078 ml -210 ml Exam Pt is walking in the halls. Results Result Diagram: 01/21/17 0600 01/21/17 0600 Results 24 hrs Laboratory Tests Test 01/21/17 06:00 Anion Gap 15 Basophils # 0.2 H Basophils % 1.0 Blast Cells % 3.0 H Blastocytes # 0.6 Blood Urea Nitrogen 34 H Calcium Level 8.5 Carbon Dioxide Level 30 Chloride Level 97 Creatinine 1.71 H Eosinophils # 0.2 Eosinophils % 1.0 Glucose Level 121 Hematocrit 23.7 L Hemoglobin 7.7 L Lymphocytes # 7.8 H Lymphocytes % 38.0 Magnesium Level 2.1 Mean Corpuscular Hemoglobin 29.3 Mean Corpuscular Hemoglobin Concent 32.5 Mean Corpuscular Volume 90.1 Mean Platelet Volume 12.6 H Metamyelocytes # 1.0 Metamyelocytes % 5.0 H Monocytes # 7.5 H Monocytes % 37.0 H Myelocytes # 0.8 Myelocytes % 4.0 H Neutrophils # 2.2 Neutrophils % 11.0 L Platelet Count 24 #*L Platelet Estimate PLT APPEAR DECREASED Potassium Level 4.0 Red Blood Count 2.63 L Red Cell Distribution Width 16.4 H Sodium Level 138 White Blood Count 20.4 H Medications Medications Current Medications Ondansetron HCl (Zofran Inj) 4 mg Q6H PRN IV NAUSEA AND/OR VOMITING; Start 12/23 at 16:30 Nitroglycerin (Nitroglycerin (Sl Tab) 0.4 Mg) 1 tab Q5M PRN SL CHEST PAIN; Start 12/23/16 at 16:30 Acetaminophen (Tylenol Supp) 650 mg Q4H PRN ME PAIN LEVEL 1-3 OR FEVER Last administered on 12/25/16 01:06; Admin Dose 650 MG; Start 12/23/16 at 16:30 Bisacodyl (Dulcolax) 5 mg DAILY PRN PO CONSTIPATION; Start 12/23/16 at 16:30 IV Flush (NS 10 ml) 10 ml PRN PRN IV IV PROTOCOL; Start 01/03/17 at 16:30 Morphine Sulfate (morphine) 1 mg Q4H PRN IV PAIN LEVEL 7-10 Last administered on 01/08/17 22:19; Admin Dose 1 MG; Start 01/05/17 at 14:00 Lorazepam (Ativan) 2 mg Q1HWA PRN IV AGITATION Last administered on 01/14/17 21:13; Admin Dose 2 MG; Start 01/06/17 at 09:30 Metoprolol Tartrate (Lopressor) 25 mg BID PO Last administered on 01/20/17 21: 40; Admin Dose 25 MG; Start 01/08/17 at 21:00 Haloperidol (Haldol) 1 mg Q8H PRN IM AGITATION Last administered on 01/09/17 12:23; Admin Dose 1 MG; Start 01/08/17 at 23:30 Quetiapine Fumarate (Seroquel) 75 mg BID PO Last administered on 01/21/17 08:29 ; Admin Dose 75 MG; Start 01/11/17 at 21:00 Collagenase (Santyl) 1 applic DAILY TOP Last administered on 01/21/17 08:38; Admin Dose 1 APPLIC; Start 01/11/17 at 16:00 Pantoprazole (Protonix Tab) 40 mg DAILY@06 PO Last administered on 01/21/17 05: 54; Admin Dose 40 MG; Start 2/28/17 at 06:00 GONZALO MCDONALD MD Jan 21, 2017 13:58
--- NOTE | 2017-01-21 15:33 | CONS ---
Date/Time of Note Date/Time of Note DATE: 01/21/17 TIME: 15:28 Assessment/Plan Assessment/Plan Additional Assessment/Plan 1. Acute kidney injury, likely secondary to acute tubular necrosis in the setting of sepsis.-improved 2. Acute hypoxemic respiratory failure, multifactorial, secondary to sepsis and secondary to pulmonary congestion s/p extubation - stable 3. Acute pulmonary edema with influenza pneumonia.- now improved 4. History of congestive heart failure with diastolic heart failure. 5. History of chronic obstructive pulmonary disease. 6. History of gastroesophageal reflux disease. 7. History of smoking. 8. 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 9. Hypomagnesemia , Hypokalemia - replaced PLAN: Cr 1.71, electrolytes stable making good urine,Hematuria, urology following Bp stable will follow up Consultation Date/Type/Reason Admit Date/Time Dec 23, 2016 at 15:37 Initial Consult Date 12/23/16 Type of Consultation: NEPHROLOGY Reason for Consultation acute Kidney Injury Referring Provider: BEN COURTNEY MD 24 HR Interval Summary Free Text/Dictation Cr 1.71 Exam/Review of Systems Vital Signs Vitals Vital Signs Date Time Temp Pulse Resp B/P Pulse Ox O2 Delivery O2 Flow Rate FiO2 01/21/17 07:47 98.0 79 19 107/58 96 01/20/17 15:46 Room Air Intake and Output 01/20/17 01/20/17 01/21/17 14:59 22:59 06:59 Intake Total 1428 ml 240 ml Output Total 550 ml 350 ml 450 ml Balance -550 ml 1078 ml -210 ml Exam Gen [place]: alert, more calm CV: S1S2, no M/G/R Lungs: coarse breath sounds throughout all lung masters, diminished at the bases , with end expiratory wheezing Abd: soft, NT/ND, +BS, EXT: no cyanosis Results Result Diagram: 01/21/17 0600 01/21/17 0600 Results 24 hrs Laboratory Tests Test 01/21/17 06:00 Anion Gap 15 Basophils # 0.2 H Basophils % 1.0 Blast Cells % 3.0 H Blastocytes # 0.6 Blood Urea Nitrogen 34 H Calcium Level 8.5 Carbon Dioxide Level 30 Chloride Level 97 Creatinine 1.71 H Eosinophils # 0.2 Eosinophils % 1.0 Glucose Level 121 Hematocrit 23.7 L Hemoglobin 7.7 L Lymphocytes # 7.8 H Lymphocytes % 38.0 Magnesium Level 2.1 Mean Corpuscular Hemoglobin 29.3 Mean Corpuscular Hemoglobin Concent 32.5 Mean Corpuscular Volume 90.1 Mean Platelet Volume 12.6 H Metamyelocytes # 1.0 Metamyelocytes % 5.0 H Monocytes # 7.5 H Monocytes % 37.0 H Myelocytes # 0.8 Myelocytes % 4.0 H Neutrophils # 2.2 Neutrophils % 11.0 L Platelet Count 24 #*L Platelet Estimate PLT APPEAR DECREASED Potassium Level 4.0 Red Blood Count 2.63 L Red Cell Distribution Width 16.4 H Sodium Level 138 White Blood Count 20.4 H Medications Medications Current Medications Ondansetron HCl (Zofran Inj) 4 mg Q6H PRN IV NAUSEA AND/OR VOMITING; Start 12/23 at 16:30 Nitroglycerin (Nitroglycerin (Sl Tab) 0.4 Mg) 1 tab Q5M PRN SL CHEST PAIN; Start 12/23/16 at 16:30 Acetaminophen (Tylenol Supp) 650 mg Q4H PRN AR PAIN LEVEL 1-3 OR FEVER Last administered on 12/25/16 01:06; Admin Dose 650 MG; Start 12/23/16 at 16:30 Bisacodyl (Dulcolax) 5 mg DAILY PRN PO CONSTIPATION; Start 12/23/16 at 16:30 IV Flush (NS 10 ml) 10 ml PRN PRN IV IV PROTOCOL; Start 01/03/17 at 16:30 Morphine Sulfate (morphine) 1 mg Q4H PRN IV PAIN LEVEL 7-10 Last administered on 01/08/17 22:19; Admin Dose 1 MG; Start 01/05/17 at 14:00 Lorazepam (Ativan) 2 mg Q1HWA PRN IV AGITATION Last administered on 01/14/17 21:13; Admin Dose 2 MG; Start 01/06/17 at 09:30 Metoprolol Tartrate (Lopressor) 25 mg BID PO Last administered on 01/20/17 21: 40; Admin Dose 25 MG; Start 01/08/17 at 21:00 Haloperidol (Haldol) 1 mg Q8H PRN IM AGITATION Last administered on 01/09/17 12:23; Admin Dose 1 MG; Start 01/08/17 at 23:30 Quetiapine Fumarate (Seroquel) 75 mg BID PO Last administered on 01/21/17 08:29 ; Admin Dose 75 MG; Start 01/11/17 at 21:00 Collagenase (Santyl) 1 applic DAILY TOP Last administered on 01/21/17 08:38; Admin Dose 1 APPLIC; Start 01/11/17 at 16:00 Pantoprazole (Protonix Tab) 40 mg DAILY@06 PO Last administered on 01/21/17 05: 54; Admin Dose 40 MG; Start 01/14/17 at 06:00 GILL PEREIRA MD Jan 21, 2017 15:33
--- NOTE | 2017-01-21 15:37 | CONS ---
Date/Time of Note Date/Time of Note DATE: 01/21/17 TIME: 15:35 Assessment/Plan Assessment/Plan Chief Complaint/Hosp Course IMPRESSION: 1. Respiratory failure-improved s/p extubation/stable 2. Cardiomyopathy with decreased left ventricular ejection fraction, last being approximately 45% to 50% by echo 11/2016.-reasonable volume status by exam today 3. Hypotension, borderline. 4. Influenza positive. 5. History of chronic myelogenous leukemia. 6. Renal failure-slowly improving. 7. Thrombocytopenia, severe. 8. Anemia. 9. Leukocytosis. 10.CHF-systolic and diastolic acute on chronic 11.Positive troponin-likely demand event. Now trended negative Recc: -Tele -serial ecg's -Continue abx's and f/u cx data -Follow volume status closely and continue gentle daily lasix -Follow for bleeding complications/need for platelet transfusion -Follow platelet count closely with no asa due to severe thombocytopenia -Continue BB Problems: Consultation Date/Type/Reason Admit Date/Time Dec 23, 2016 at 15:37 Initial Consult Date 12/24/16 Type of Consultation: Cardiology Reason for Consultation Cardiomyopathy Referring Provider: BEN COURTNEY MD Exam/Review of Systems Vital Signs Vitals Vital Signs Date Time Temp Pulse Resp B/P Pulse Ox O2 Delivery O2 Flow Rate FiO2 01/21/17 07:47 98.0 79 19 107/58 96 01/20/17 15:46 Room Air Intake and Output 01/20/17 01/20/17 01/21/17 15:00 23:00 07:00 Intake Total 1428 ml 240 ml Output Total 550 ml 350 ml 450 ml Balance -550 ml 1078 ml -210 ml Exam Review of Systems: CONSTITUTIONAL: No fevers, chills. PULMONARY: No sob CARDIOVASCULAR: No chest pain/palpitations GASTROINTESTINAL: No nausea/vomiting. GENITOURINARY: No hematuria/dysuria. MUSCULOSKELETAL: No myagias/arthalgias. PSYCHIATRIC: The patient denies depression. NEUROLOGIC: lethargic Constitutional: other (sleeping) Psych: no complaints Head: normocephalic ENMT: mucosa pink and moist Neck: jvd (8 cm water), supple Respiratory: diminished breath sounds (at bases/B) Cardiovascular: regular rate and rhythm Gastrointestinal: non-tender, soft Musculoskeletal: muscle tone (normal) Extremities: edema (none) Neurological: other (No focal deficits) Results Result Diagram: 01/21/17 0600 01/21/17 0600 Results 24 hrs Laboratory Tests Test 01/21/17 06:00 Anion Gap 15 Basophils # 0.2 H Basophils % 1.0 Blast Cells % 3.0 H Blastocytes # 0.6 Blood Urea Nitrogen 34 H Calcium Level 8.5 Carbon Dioxide Level 30 Chloride Level 97 Creatinine 1.71 H Eosinophils # 0.2 Eosinophils % 1.0 Glucose Level 121 Hematocrit 23.7 L Hemoglobin 7.7 L Lymphocytes # 7.8 H Lymphocytes % 38.0 Magnesium Level 2.1 Mean Corpuscular Hemoglobin 29.3 Mean Corpuscular Hemoglobin Concent 32.5 Mean Corpuscular Volume 90.1 Mean Platelet Volume 12.6 H Metamyelocytes # 1.0 Metamyelocytes % 5.0 H Monocytes # 7.5 H Monocytes % 37.0 H Myelocytes # 0.8 Myelocytes % 4.0 H Neutrophils # 2.2 Neutrophils % 11.0 L Platelet Count 24 #*L Platelet Estimate PLT APPEAR DECREASED Potassium Level 4.0 Red Blood Count 2.63 L Red Cell Distribution Width 16.4 H Sodium Level 138 White Blood Count 20.4 H Medications Medications Current Medications Ondansetron HCl (Zofran Inj) 4 mg Q6H PRN IV NAUSEA AND/OR VOMITING; Start 12/23 at 16:30 Nitroglycerin (Nitroglycerin (Sl Tab) 0.4 Mg) 1 tab Q5M PRN SL CHEST PAIN; Start 12/23/16 at 16:30 Acetaminophen (Tylenol Supp) 650 mg Q4H PRN AL PAIN LEVEL 1-3 OR FEVER Last administered on 12/25/16 01:06; Admin Dose 650 MG; Start 12/23/16 at 16:30 Bisacodyl (Dulcolax) 5 mg DAILY PRN PO CONSTIPATION; Start 12/23/16 at 16:30 IV Flush (NS 10 ml) 10 ml PRN PRN IV IV PROTOCOL; Start 01/03/17 at 16:30 Morphine Sulfate (morphine) 1 mg Q4H PRN IV PAIN LEVEL 7-10 Last administered on 01/08/17 22:19; Admin Dose 1 MG; Start 01/05/17 at 14:00 Lorazepam (Ativan) 2 mg Q1HWA PRN IV AGITATION Last administered on 01/14/17 21:13; Admin Dose 2 MG; Start 01/06/17 at 09:30 Metoprolol Tartrate (Lopressor) 25 mg BID PO Last administered on 01/20/17 21: 40; Admin Dose 25 MG; Start 01/08/17 at 21:00 Haloperidol (Haldol) 1 mg Q8H PRN IM AGITATION Last administered on 01/09/17 12:23; Admin Dose 1 MG; Start 01/08/17 at 23:30 Quetiapine Fumarate (Seroquel) 75 mg BID PO Last administered on 01/21/17 08:29 ; Admin Dose 75 MG; Start 01/11/17 at 21:00 Collagenase (Santyl) 1 applic DAILY TOP Last administered on 01/21/17 08:38; Admin Dose 1 APPLIC; Start 01/11/17 at 16:00 Pantoprazole (Protonix Tab) 40 mg DAILY@06 PO Last administered on 01/21/17 05: 54; Admin Dose 40 MG; Start 01/14/17 at 06:00 MILENA VELA Jan 21, 2017 15:37
--- NOTE | 2017-01-22 07:18 | DS ---
DATE OF ADMISSION: 12/23/2016 DATE OF DISCHARGE: 01/21/2017 CONSULTS ON THE CASE: Dr. Noam Jeffrey for pulmonary, Dr. Arcadio Rao for oncology as well as hematology, Dr. Kelechi Johnson for infectious disease, Dr. Abraham Martinez for nephrology, Dr. Jaxson Koenig for urology and Dr. Andre Mcgregor for cardiology. DISCHARGE DIAGNOSES: 1. Acute encephalopathy, now resolved. 2. Sepsis secondary to influenza and bilateral pneumonia, now resolved. 3. Acute hypoxemic respiratory failure secondary to pneumonia and congestive heart failure for whic h patient was at one point ventilator dependent and now stable on room air status post endotracheal intubation as well as subsequent extubation. 4. Chronic myeloid leukemia secondary to myelodysplastic syndrome with recurrent anemia and thrombo cytopenia secondary to myelodysplastic syndrome that has been refractory to treatment. 5. Acute renal failure, now resolved. 6. Congestive heart failure, systolic and diastolic, acute on chronic, now compensated. 6. Status post non-ST elevation myocardial infarction type 2 that was managed medically only. 7. Chronic obstructive pulmonary disease, stable. 8. Dysphagia, stable on pureed diet. 9. Cardiomyopathy with decreased ejection fraction of 45% to 50%. 10. Hematuria secondary to trauma, superimposed on thrombocytopenia, now resolved. HOSPITALIZATION COURSE: Full details are available in the chart for review. In summary, this 71-ye ar-old male underwent a prolonged admission because he had come in with shortness of breath and resp iratory symptoms and was found to be positive for influenza and also was found to have bilateral pne umonia which could have been bacterial superimposed on his viral infection. However, this was quite virulent on the patient and he became septic from that. He also developed respiratory failure and had to be endotracheally intubated and supported by the ventilator for a few days. However, he was successfully managed and eventually extubated and his post-extubation course was complicated by alte ration in his mental status at one point requiring 1 on 1 sitter to keep him calm. He did well. He was started on Seroquel and he responded very well to this regimen, and as of today, the patient is alert, he is oriented with only occasional episodes of confusion; however, he does not require a si tter anymore and is stable for discharge at his family's request home with home health therapy. We did try to get him into acute rehab, but he was deemed too high functioning and so he is going to be going home to his family. His hospitalization was also complicated by the diagnoses listed above i ncluding N-STEMI, acute renal failure, dysphagia from his encephalopathy, but all these things have resolved quite nicely. He did have hematuria that was associated with thrombocytopenia and the pres ence of a Leyva in place. Urology assisted in management and the patient is currently voiding on hi s own without any further bleeding. He has required multiple episodes of transfusion of both packed red cells as well as platelets at different intervals in his hospitalization and will probably cont inue to require this as an outpatient. His oncologist, Dr. Rao, has requested that the patien t follow up with him in the office tomorrow and he will keep a close eye on his lab values as outpat ient. I have communicated this to the family in detail, I have answered questions, I have gotten cl earance for discharge from oncology as well as nephrology and urology. Of note is that patient's cr eatinine seems to be at his new baseline where it is between 1.6 and 1.8. He has intermittently req uired low dose diuretic therapy and he probably will require this intermittently for his congestive heart failure. It will have to be balanced with his renal function as appropriate. He is encourage d to follow up with his primary care physician for management of that. Overall time spent on discha rge coordination and planning has been more than 50 minutes. DISCHARGE CONDITION: Stable. DIET: Low cholesterol, low fat. ACTIVITY: As tolerated with home health physical therapy. DISCHARGE MEDICATIONS: For a complete list of discharge medications, please review his discharge me dication list. Dictated By: EZE LYLES MD BA/NTS Conf#: [id number] DID#: [id number] CC: BEN COURTNEY MD;*EndCC*
== END 2017-01-21 17:00 | disposition home health service (06) | DRG 871 ==
LOC: E/R 12:55 → ICU 15:37 → TEL 01-08 19:38 → MS2 01-13 02:19
PROVIDERS: ADMIT Family Medicine; ATTEND Family Medicine
PROC: 5A1945Z Respiratory Ventilation, 24-96 Consecutive Hours (ICD-10-PCS; 2016-12-23)
PROC: 0BH17EZ Insertion of Endotracheal Airway into Trachea, Via Natural or Artificial Opening (ICD-10-PCS; 2016-12-23)
PROC: 0BH17EZ Insertion of Endotracheal Airway into Trachea, Via Natural or Artificial Opening (ICD-10-PCS; 2016-12-29)
PROC: 02HV33Z Insertion of Infusion Device into Superior Vena Cava, Percutaneous Approach (ICD-10-PCS; principal; 2017-01-03)
PROC: 3E1K78Z Irrigation of Genitourinary Tract using Irrigating Substance, Via Natural or Artificial Opening (ICD-10-PCS; 2017-01-10)
DX: A41.89 Other specified sepsis (principal); J11.00 Influenza due to unidentified influenza virus with unspecified type of pneumonia; J96.01 Acute respiratory failure with hypoxia; I21.4 Non-ST elevation (NSTEMI) myocardial infarction; G93.40 Encephalopathy, unspecified; I50.43 Acute on chronic combined systolic (congestive) and diastolic (congestive) heart failure; J15.9 Unspecified bacterial pneumonia; I13.0 Hypertensive heart and chronic kidney disease with heart failure and stage 1 through stage 4 chronic kidney disease, or unspecified chronic kidney disease; C92.10 Chronic myeloid leukemia, BCR/ABL-positive, not having achieved remission; N17.9 Acute kidney failure, unspecified; I42.9 Cardiomyopathy, unspecified; E87.0 Hyperosmolality and hypernatremia; S37.39XA Other injury of urethra, initial encounter; D69.59 Other secondary thrombocytopenia; D46.4 Refractory anemia, unspecified; J44.9 Chronic obstructive pulmonary disease, unspecified; R13.10 Dysphagia, unspecified; R31.9 Hematuria, unspecified; E86.0 Dehydration; N18.9 Chronic kidney disease, unspecified; E11.22 Type 2 diabetes mellitus with diabetic chronic kidney disease; E83.42 Hypomagnesemia; X58.XXXA Exposure to other specified factors, initial encounter; Y92.230 Patient room in hospital as the place of occurrence of the external cause; R19.7 Diarrhea, unspecified; E87.6 Hypokalemia; K21.9 Gastro-esophageal reflux disease without esophagitis; Z72.0 Tobacco use; Z79.899 Other long term (current) drug therapy
CPT/HCPCS: 31500; 36415; 36430; 36569; 36600; 70450; 71010; 74000; 76775; 76937; 80048; 80053; 80061; 80069; 80202; 81001; 81003; 82533; 82803; 82962; 83605; 83615; 83690; 83735; 83880; 84100; 84134; 84145; 84155; 84300; 84484; 85014; 85018; 85025; 85049; 85362; 85378; 85384; 85610; 85670; 85730; 86022; 86644; 86850; 86900; 86901; 86920; 86945; 87040; 87070; 87075; 87081; 87086; 87116; 87400; 87502; 89190; 89220; 92526; 92610; 93005; 93971; 94002; 94003; 94640; 94644; 94770; 95819; 96374; 96375; 96376; 97110; 97116; 97161; 97530; J1940; C9113; J0330; J0456; J0692; J0696; J1450; J1630; J1956; J2060; J2185; J2270; J2916; J3010; J3370; J3475; J3480; J7030; J7040; J7050; J7070; P9011; P9016; P9035; P9047

== ENCOUNTER 2017-01-31 11:30 | Inpatient (IN) | payer BC ==
[~2017-01-31] VITALS: Ht 177.8 cm; Wt 60.5 kg
[~2017-01-31 11:30] MED LIST changes: +FURO-110 PO; -HYDR-902 PO; +METO-448 PO; +PANT40TA4 PO; +POTA8CAP PO; +QUET25TA26 PO; -REVLIMID 10MG PO; -SUCCINYLCHOLINE CHLORIDE 100 MG/5 ML SYG IV ONE
[2017-01-31] MEDS ORDERED: SODIUM CHLORIDE 0.9% 1L BAG IV* STA (12:37)
[2017-01-31 12:58] LABS: ADD SCAN DIFF NO
[2017-01-31] MEDS ORDERED: OXYMETAZOLINE 0.05% 15 ML NAS SPRAY NASAL ONE (13:00)
--- NOTE | 2017-01-31 13:05 | RADRPT ---
PROCEDURE: XR Chest AP portable CLINICAL INDICATION: Possible sepsis TECHNIQUE: An AP portable radiograph of the chest was submitted. COMPARISON: 01/08/2017 FINDINGS: Support Hardware: The right upper extremity PICC catheter is no longer evident. Cardiovascular: The cardiovascular silhouette appears unremarkable except for persistent atheroscler otic change of the aorta. Lung Arboleda: Increasing alveolar infiltrates are seen at the lung bases bilaterally. Reticular davis ges are again seen in the right upper lobe with 2 nodular densities seen to project in the right upp er lobe which have increased in size from the previous with 1 measuring 1.3 cm in diameter and the o ther 1.5 cm in diameter. Pleural Spaces: No pneumothorax or pleural effusion is identified. Osseous Structures: The osseous structures appear intact. Soft Tissues: The soft tissues appear unremarkable. IMPRESSION: 1. Worsening alveolar infiltrates have developed at the lung bases bilaterally. 2. Reticular changes seen in the right upper lobe with 2 nodular densities project in the right upp er lung zone which have increased in size from the previous. 1 measures 1.5 cm in diameter and the other 1.[address] is recommended. Physician Esteban Date Time Electronically viewed and signed by Physician Esteban on 01/31/2017 13:05 /
[2017-01-31 13:06] LABS: ABNORMAL IP MESSAGE 1; HEMATOCRIT 21.3 % (42.0-52.0); MEAN CORPUSCULAR HEMOGLOBIN 28.9 pg (29.0-33.0); MEAN CORPUSCULAR HGB CONC 32.9 g/dl (32.0-37.0); RED BLOOD COUNT 2.42 10^6/ul (4.70-6.10); RED CELL DISTRIBUTION WIDTH 17.8 % (11.5-14.5)
[2017-01-31 13:16] LABS: INR 1.16; PROTIME 14.8 Sec (12.2-14.2); PT RATIO 1.2
[2017-01-31 13:17] LABS: PARTIAL THROMBOPLASTIN TIME 35.1 Sec (25.0-35.0)
[2017-01-31 13:27] LABS: ALBUMIN 3.3 g/dl (3.3-4.9)
[2017-01-31 13:28] LABS: CHLORIDE 104 mmol/L (97-110); POTASSIUM 4.1 mmol/L (3.5-5.1); SODIUM 142 mmol/L (135-144)
[2017-01-31 13:30] LABS: ALBUMIN/GLOBULIN RATIO 0.61; ALKALINE PHOSPHATASE 72 IU/L (42-121); ANION GAP 16 (8-16); ASPARTATE AMINO TRANSFERASE 25 IU/L (15-46); BILIRUBIN,INDIRECT 0.4 mg/dl (0-1.1); BILIRUBIN,TOTAL 0.4 mg/dl (0.2-1.3); CARBON DIOXIDE 26 mmol/L (21-31); CREATININE 1.42 mg/dl (0.61-1.24); PLATELET COUNT 4 10^3/UL (140-415); TOTAL PROTEIN 8.7 g/dl (6.1-8.1)
[2017-01-31 13:31] LABS: ALANINE AMINOTRANSFERASE 11 IU/L (13-69); BLOOD UREA NITROGEN 31 mg/dl (7-20); CALCIUM 8.3 mg/dl (8.4-10.2); GLUCOSE 101 mg/dl (70-220)
--- NOTE | 2017-01-31 13:34 | ERA ---
ER Documentation Chief Complaint Date/Time DATE: 01/31/17 TIME: 13:29 Chief Complaint NOSEBLEED FOR 1 WK INTERMITTENT AND COUGHING BLOOD TINGED TODAY. NO SOB HPI Patient is a 71-year-old male who is brought in by his family member reporting intermittent nosebleed for 1 week. He is coughing up blood but he states he is coughing up blood from the back of his throat where he believes it is bleeding from his posterior nose. He denies any trauma to his nose. He states he is not on any blood thinners and has not had any chest pain, shortness of breath, sore throat, or otalgia. He says nothing makes this better or worse. Of note he was recently in the hospital in the ICU for over a month with a severe infection of both lower extremities according to the family member. The family member states that that has improved. He denies any abdominal pain, nausea, vomiting, diarrhea, melena, hematochezia, or hematemesis. He also denies any abnormal rashes, or bruising on his body. He is never had this problem before. Of note he received a blood transfusion earlier in the week. The remainder of the systems are negative. ROS All systems reviewed and are negative except as per history of present illness. Medications Home Meds Active Scripts Quetiapine Fumarate* (Seroquel*) 25 Mg Tablet, 25 MG PO BID, #60 TAB 2 Refills Prov:RAFAL,BRINDAO M. 01/21/17 Potassium Chloride* (Potassium Chloride*) 8 Meq Capsule.er, 8 MEQ PO DAILY for 30 Days, CAP Prov:RAFAL,VALERYATITO M. 01/21/17 Furosemide* (Lasix*) 20 Mg Tablet, 20 MG PO DAILY for 30 Days, TAB Prov:RAFAL,BOLATITO M. 01/21/17 Pantoprazole* (Pantoprazole*) 40 Mg Tablet.dr, 40 MG PO DAILY@06 for 30 Days, 2 Refills Prov:RAFAL,VALERYATITO M. 01/21/17 Metoprolol Tartrate* (Lopressor*) 25 Mg Tab, 25 MG PO BID for 30 Days, TAB 2 Refills Prov:RAFAL,VALERYATITO M. 01/21/17 Allergies Allergies: Coded Allergies: No Known Allergy (Unverified , 01/29/17) PMhx/Soc History of Surgery: No Anesthesia Reaction: No Hx Neurological Disorder: No Hx Respiratory Disorders: Yes (COPD) Hx Cardiac Disorders: No Hx Psychiatric Problems: No Hx Miscellaneous Medical Probl: No Hx Alcohol Use: No Hx Substance Use: No Hx Tobacco Use: No Smoking Status: Never smoker FmHx Family History: No diabetes Physical Exam Vitals Vital Signs Date Time Temp Pulse Resp B/P Pulse Ox O2 Delivery O2 Flow Rate FiO2 01/31/17 12:58 Nasal Cannula 2 01/31/17 11:32 97.5 102 21 110/54 96 Physical Exam Const: [] Well-developed thin male sitting on the bed actively spitting blood into an emesis bag Head: Atraumatic normocephalic Eyes: Pale conjunctiva ENT: Normal External Ears, Nose and Mouth., petechiae are noted on his soft palate Neck: Full range of motion..~ No meningismus. Resp: Clear to auscultation bilaterally Cardio: Regular rate and rhythm, 2/6 systolic ejection murmur, no rubs or gallops Abd: Soft, non tender, non distended. Normal bowel sounds Skin: Patient has petechia diffusely all over his entire body, skin is very pale Back: No midline or flank tenderness Ext: No cyanosis, or edema Neur: Awake and alert, oriented 3, GCS of 15, grossly nonfocal Psych: Normal Mood and Affect Result Diagram: 01/31/17 1240 01/31/17 1240 Results 24 hrs Laboratory Tests Test 01/31/17 12:40 Activated Partial Thromboplast Time 35.1Sec Alanine Aminotransferase (ALT/SGPT) 11IU/L Albumin 3.3g/dl Albumin/Globulin Ratio 0.61 Alkaline Phosphatase 72IU/L Anion Gap 16 Aspartate Amino Transf (AST/SGOT) 25IU/L Band Neutrophils % 3.0% Basophils # 0.210^3/ul Basophils % 1.0% Blast Cells % 4.0% Blastocytes # 0.7 Blood Urea Nitrogen 31mg/dl Calcium Level 8.3mg/dl Carbon Dioxide Level 26mmol/L Chloride Level 104mmol/L Creatinine 1.42mg/dl Direct Bilirubin 0.00mg/dl Globulin 5.40g/dl Glucose Level 101mg/dl Hematocrit 21.3% Hemoglobin 7.0g/dl INR International Normalized Ratio 1.16 Indirect Bilirubin 0.4mg/dl Lactic Acid Level 1.6mmol/L Lymphocytes # 4.010^3/ul Lymphocytes % 22.0% Mean Corpuscular Hemoglobin 28.9pg Mean Corpuscular Hemoglobin Concent 32.9g/dl Mean Corpuscular Volume 88.0fl Mean Platelet Volume fl Metamyelocytes # 0.7 Metamyelocytes % 4.0% Monocytes # 6.310^3/ul Monocytes % 35.0% Myelocytes # 0.2 Myelocytes % 1.0% Neutrophils # 5.410^3/ul Neutrophils % 30.0% Nucleated Red Blood Cells % 6.0/100WBC Platelet Count 410^3/UL Platelet Estimate PLT APPEAR DECREASED Potassium Level 4.1mmol/L Prothrombin Time 14.8Sec Prothrombin Time Ratio 1.2 Red Blood Count 2.4210^6/ul Red Cell Distribution Width 17.8% Sodium Level 142mmol/L Total Bilirubin 0.4mg/dl Total Protein 8.7g/dl Troponin I < 0.012ng/ml White Blood Count 18.010^3/ul Current Medications Medications (Trade) Dose Ordered Sig/Sandra Route PRN Reason Start Time Stop Time Status Last Admin Dose Admin Sodium Chloride (NS) 1,880 ml BOLUS OVER 2 HOURS STAT IV* 01/31/17 12:37 01/31/17 12:39 DC 01/31/17 13:58 Oxymetazoline HCl (Afrin [place]) 2 spray ONCE ONCE NASAL 01/31/17 13:00 01/31/17 13:01 DC 01/31/17 14:04 Procedures/MDM Differential includes thrombocytopenia, anemia, DIC, sepsis, bone marrow failure EKG: Rate/Rhythm: Normal Sinus Rhythm at 90 beats per minutes, biatrial enlargement, left ventricular hypertrophy, left bundle branch block, no old EKG available for comparison QRS, ST, T-waves: No changes consistent w/ acute ischemia Impression: No evidence of ischemia or arrhythmia Chest x-ray shows increasing infiltrates per the radiologist. Radiologist is suggesting a possible CT for further evaluation. After evaluating the patient's CBC and noting that he had blasts I was concerned that he had leukemia. I reviewed the records and it appears back in November he was diagnosed with CML. I am unsure whether the family knows this or not as he did not disclose this information when I was speaking with them. Platelets and blood have been ordered for the patient. They have not been received from the blood bank at this time. He does continue to intermittently have a nosebleed and spit up blood. Luckily his blood pressure and pulse remained stable. I will consult his primary care doctor to admit him to the hospital for further evaluation and treatment of his anemia and thrombocytopenia. Critical care time of 45 minutes not to include any procedures. Departure Diagnosis: Primary Impression: Thrombocytopenia Additional Impressions: Anemia Qualified Code: D50.0 - Iron deficiency anemia due to chronic blood loss Chronic myelocytic leukemia Epistaxis, recurrent Petechial rash KARINA NAVARRO Jan 31, 2017 13:34
[2017-01-31 13:45] LABS: BASOPHIL # 0.2 10^3/ul (0.0-0.1); MONOCYTE # 6.3 10^3/ul (0.3-0.9); MYELOCYTES # 0.2; NEUTROPHIL # 5.4 10^3/ul (1.6-7.5)
[2017-01-31 13:46] LABS: PLATELET ESTIMATE PLT APPEAR DECREASED
[2017-01-31 14:03] LABS: TROPONIN-I < 0.012 ng/ml (0.00-0.12)
[2017-01-31] MEDS ORDERED: ACETAMINOPHEN 325 MG TAB PO PRN ×2 (14:30→17:00)
[2017-01-31] MEDS ORDERED: ONDANSETRON 4 MG INJ IV PRN (14:30)
[2017-01-31] MEDS ORDERED: FAMO20TA18 PO (14:57)
[2017-01-31] MEDS ORDERED: ACETAMINOPHEN 650 MG SUPP PR PRN (17:00)
[2017-01-31] MEDS ORDERED: BISACODYL 10 MG SUPP PR PRN (17:00)
[2017-01-31] MEDS ORDERED: ALBUTEROL/IPRATROPIUM (NEB) 3 ML AMP HHN PRN (17:00)
[2017-01-31] MEDS ORDERED: morphine 2 MG INJ IV PRN (17:00)
[2017-01-31] MEDS ORDERED: DOCUSATE SODIUM 100 MG CAP PO PRN (17:00)
[2017-01-31] MEDS ORDERED: NACL 0.9% 3 ML SYG IV SCH (17:00)
[2017-01-31] MEDS ORDERED: MAGNESIUM HYDROXIDE 30ML CUP PO PRN (17:00)
[2017-01-31] MEDS ORDERED: HYDROCODONE/APAP (5/325) TAB PO PRN (17:00)
[2017-01-31 17:35] VITALS: PULSE 105
[2017-01-31 18:00] VITALS: BP 129/62; PULSE 104; RESP 18
--- NOTE | 2017-01-31 18:22 | HP ---
DATE OF ADMISSION: 01/31/2017 CHIEF COMPLAINT: Epistaxis and hemoptysis. HISTORY OF PRESENT ILLNESS: This is a 71-year-old male who of note was recently hospitalized in Dec through 01/21/2017 secondary to encephalopathy and sepsis with pneumonia and respirato ry failure as well as CML and renal failure and NSTEMI type 2 who came to [facility] due to reports of epistaxis and now hemoptysis. According to the patient, he had been having unc ontrollable nosebleeds for 1 week duration. He did have associated generalized weakness. He, of no te, does follow up with Dr. Pryor as outpatient for his history of CML, and he did have previous h istory of pancytopenia. He did report getting transfused blood products roughly 2 days ago. Due to his worsening of epistaxis, he did come to [facility] on 01/31/2017. On the day of admission, he also did now report new onset of hemoptysis. He denied any sick contacts or any hi story of tuberculosis. Denies any sudden weight loss or fevers. He does report that this is the fi rst time this has happened to him and likely this is attributed from his history of pancytopenia and thrombocytopenia. On further examination, he did have blood work done that did show him to have a white count of 18.0, platelets of 4, hemoglobin of 7, hematocrit of 21.3. He was also noted with so me renal insufficiency with BUN 31 and creatinine of 1.42. His initial chest x-ray done on 02/01/20 17 did show him to have worsening alveolar infiltrates at the lung bases bilaterally with reticular changes seen in the right upper lobe with 2 nodular densities project in the right upper lung zone w hich appear to have increased in previous size. The patient also reported some shortness of breath but denied any chest pain. We will evaluate him for the aforementioned issues. MEDICAL AND SURGICAL HISTORY 1. Recent sepsis secondary to influenza and bilateral pneumonia. 2. History of acute hypoxemic respiratory failure secondary to pneumonia and congestive heart failu re with noted EF of 45% to 50%. 3. Cardiomyopathy. 4. History of dysphagia. 5. Chronic obstructive pulmonary disease. 6. History of NSTEMI type 2. 7. CML with history of myelodysplastic syndrome. 8. Chronic kidney disease. SOCIAL HISTORY: The patient is a current every day smoker. FAMILY HISTORY: Noncontributory. ALLERGIES: NO KNOWN ALLERGIES. HOME MEDICATIONS: Please see electronic medical record. REVIEW OF SYSTEMS: A 12-point review of systems was obtained and is entirely negative except that m entioned in the history of present illness. PHYSICAL EXAMINATION: VITAL SIGNS: Temperature is 97.5, pulse 98, respiratory rate 18, blood pressure 138/92, and pulse o x is 99% on room air. GENERAL: This is a 71-year-old male, appears stated age, slightly pale in complexion. EYES: Pupils equal, round, and reactive to light. Anicteric sclerae. NECK: Supple, nontender, no JVD. CARDIAC: S1, S2 auscultated, regular rate. PULMONARY: Noted rhonchi bilateral lung masters, diminished at lung bases. ABDOMEN: Soft, nontender, nondistended. EXTREMITIES: No obvious edema bilateral lower extremities. SKIN: There is noted in petechiae on bilateral lower extremities. NEUROLOGIC: Alert, oriented x3. LABORATORY DATA: WBC is 18.0, hemoglobin 7.0, hematocrit is 21.3, platelets are 4. Sodium 142, pot assium 4.1, BUN 31, creatinine 1.42. IMAGING: Chest x-ray done on 01/31/2017 did show worsening alveolar infiltrates at lung bases and r eticular changes in the right upper lobe with 2 nodular densities project in the right upper lung zo ne, likely to have increased in size from previous exam. One measures 1.5 cm in diameter and the ot her at 1.3 cm. IMPRESSION AND PLAN: 1. Epistaxis and hemoptysis. The patient noted with severe pancytopenia and thrombocytopenia. Freddy n to transfuse irradiated platelets as well as transfuse 1 packed red blood cell. Childcare Aide to alberto suarez. We will follow up on H and H and CBC. 2. History of CML. Childcare Aide to follow. We will follow up with recommendations. 3. Worsening pneumonia. Per chest imaging, the patient with increased infiltrates at the lung base s. We will start on antibiotics. We will get authorization representative to following considering the patient's history of respiratory failure. 4. Nodular densities with one measuring 1.5 cm and another at 1.3 cm. We will follow up on CT scan of the chest. Dynamo Tender to follow. 5. History of respiratory failure. We will provide with bronchodilators and O2 as needed. 6. Epistaxis. ENT physician to follow. We will follow up with recommendations. 7. Acute on likely chronic kidney injury. We will get Dr. Rickie Aguilar to follow. We will monito r renal panel. 8. Leukocytosis, likely secondary to pneumonia. We will start on antibiotics for now. Follow up o n ludwig cultures. 9. History of CHF. We will continue optimization of the patient's cardiovascular medications. Of note, the patient's recent ejection fraction noted to be 45% to 50% from previous echo. 10. Deep venous thrombosis prophylaxis: Sequential compression devices. ADMISSION PROCESS TIME: 50 minutes. Discussed plan of care with Dr. Roman. Dictated By: CHARLY LAWRENCE [facility] TECH INSTRUCTOR for DUNIA RMOAN MD RR/RADHA Conf#: [id number] DID#: [id number]
--- NOTE | 2017-01-31 18:31 | CONS ---
DATE OF ADMISSION: 01/31/2017 DATE OF CONSULTATION: 01/31/2017 TYPE OF CONSULTATION: Nephrology. REASON FOR ADMISSION: Acute kidney injury, thrombocytopenia, severe anemia, history of CML. REFERRING PHYSICIAN: Dunia Roman. REASON FOR CONSULTATION: Acute kidney injury. HISTORY OF PRESENT ILLNESS: This is a 71-year-old male who has a past medical history of chronic myeloid leukemia, history of gastroesophageal reflux disease , history of COPD, history of cardiomyopathy with ejection fraction 45% to 50%. The patient was recently admitted from 12/23/2016 to 01/21/2017 for acute encephalopathy, sepsis, acute hypoxemic respiratory failure requiring intubation , and status post non-ST elevation myocardial infarctions on that last visit which was managed medically. The patient was brought back in to the [facility] Emergency Room because he is noted to have a nosebleed for the last 1 week associated with intermittent coughing. Today, he also had a blood tinged cough. He denies any shortness of breath. He was brought in by his family members with a complaint of epistaxis and hemoptysis, is noted to have a severe thrombocytopenia and severe anemia. He is also noted to have a creatinine of 1.7. He is getting admitted for further workup of severe anemia and thrombocytopenia, hemoptysis and nosebleed, and renal has been consulted for acute kidney injury. ALLERGIES: NO KNOWN DRUG ALLERGIES. PAST MEDICAL HISTORY: Includes: 1. Seroquel. 2. Potassium chloride. 3. Lasix. 4. Protonix. 5. Metoprolol. PAST MEDICAL HISTORY: Notable for history of chronic myeloid leukemia on chemotherapy, hypertension, gastroesophageal reflux disease, history of recent long hospitalization course for more than 1 month for sepsis, non-ST elevation myocardial infarction which was managed medically, acute encephalopathy and acute hypoxemic respiratory failure. FAMILY HISTORY: No history of diabetes, no history of chronic kidney disease. SOCIAL HISTORY: As per the charting and reviews, no smoking, alcohol or recreational drug in the family. PHYSICAL EXAMINATION: VITAL SIGNS: Temperature 97.5, heart rate 90, respiration 18, blood pressure 138/70, saturation is 99% on 2 liters nasal cannula. GENERAL: Awake but intermittently lethargic. HEENT: No jaundice. No scleral icterus. NECK: Supple, no lymphadenopathy. LUNGS: Decreased breath sounds at both lung bases with bibasilar rales. HEART: S1, S2, tachycardia, no murmur. ABDOMEN: Soft, nontender, nondistended. Bowel sounds are present. EXTREMITIES: No clubbing, cyanosis, edema. NEUROLOGICAL: The patient is alert, awake but not oriented to place and person. Cranial nerves II through XII intact. Motor strength is fine. Reflexes are normal. PSYCHIATRIC: Appropriate affect and mood. SKIN: No rash. GENITOURINARY: The patient deferred examination. LABORATORY DATA AND DIAGNOSTIC IMAGING: WBC 18, hemoglobin 7, platelet count 4 , sodium 142, potassium 4.1, chloride 104, bicarbonate 26, BUN 31, creatinine 1.4, glucose 101, calcium 8.3. LFTs are normal. Albumin 3.3. Prothrombin time 14.8, PTT 35.1, INR 1.16. The patient had a kidney and a renal ultrasound done on the last admission on which revealed unremarkable appearance of the kidneys, right kidney 13.4 cm, left kidney 13.1 cm, splenomegaly and small amount of left upper quadrant ascites seen. IMPRESSION: This is a 71-year-old male who has a history of chronic myeloid leukemia, thrombocytopenia, anemia and leukopenia on last admissions. The patient was brought in by his family because of having a nosebleed intermittently associated with some coughing blood. He is noted to have a creatinine of 1.4 to 1.5 and renal has been consulted for acute kidney injury. 1. Acute kidney injury, likely secondary to prerenal azotemia causing ischemic acute tubular necrosis. 2. Rule out chronic kidney disease from other medical problems. 3. History of chronic myeloid leukemia, on chemotherapy. 4. Thrombocytopenia with a severe anemia with a platelet count of 4. 5. History of gastroesophageal reflux disease, history of chronic obstructive pulmonary disease. 6. History of recent last admission and had a very long complicated course including sepsis, acute hypoxemic respiratory failure, non-ST elevation myocardial infarctions and acute encephalopathy. PLAN: 1. Thank you, Dr. Dunia Roman, for this consultation. The patient is currently seen in the emergency room and he is hemodynamically stable and getting admitted to the telemetry floor. I will continue his Lasix 20 mg p.o. daily and continue the other medications, including the metoprolol for his cardiac management. I am expecting the patient's creatinine to improve with gentle IV fluid hydration. 2. Transfuse the patient p.r.n. low hemoglobin and low platelets. The patient will need oncology consultation. I will continue to follow the patient along with oncology. 3. I advised the nurse that the patient is okay to eat at this time. 4. The patient is currently seen in the emergency room and he will be getting admitted to the telemetry floor. Will continue to follow this patient along with other subspecialists and the primary care service. Total time spent in this patient's evaluations making our assessment and plan, updating the patient/family at bedside and communicating with the nursing staff took more than 90 minutes and more than 50% of time spent in the patient's education and the nursing staff education. Dictated By: GILL PEREIRA MD KP/NTS Conf#: [id number] DID#: [id number] CC: DUNIA ROMAN MD;*EndCC* MTDD
[2017-01-31 19:33] VITALS: Ht 177.8 cm; Wt 60.5 kg
[2017-01-31 20:00] VITALS: BP 118/60; RESP 18
[2017-01-31 20:27] VITALS: PULSE 101
--- NOTE | 2017-01-31 21:00 | HP ---
DATE OF ADMISSION: 01/31/2017 HISTORY OF PRESENT ILLNESS: Cecilio Townsend is a 71-year-old gentleman with CML, admitted with thr ombocytopenia. His platelet count was 4,000 and his hemoglobin was 7. He is admitted for a platele t infusion, yet he has been having nosebleeds. ENT was called to evaluate him. PAST MEDICAL HISTORY: CML. PAST SURGICAL HISTORY: None. DRUG ALLERGIES: NONE. MEDICATIONS: List was reviewed. SOCIAL HISTORY: Unable, as patient does not speak Armenian. FAMILY HISTORY: Unable, as patient does not speak Armenian. REVIEW OF SYSTEMS: A 12-point review of systems was not able to be obtained. PHYSICAL EXAMINATION HEENT: On examination today, the oral cavity and oropharynx shows some old blood but nothing acutel y bleeding. Bilateral nasal endoscopy was performed. The nasal cavities just show some old blood. There is no evidence of any active bleeding nor do I see any site of where the bleeding was. The n asopharynx was clear. The base of tongue was symmetric. NECK: No lymphadenopathy or thyromegaly. Trachea is midline. Tonsils and submandibular glands are without lesion. IMPRESSION: Epistaxis, chronic myelogenous leukemia. PLAN: At this point, I see no active bleeding. I suspect that he should do fine once his bleeding diathesis has been corrected. Dictated By: PAUL WILD/RADHA Conf#: [id number] DID#: [id number]
[2017-01-31] MEDS: AZITHROMYCIN 500MG/NS (PMX) 250 ML IVPB SCH (22:19)
[2017-01-31] MEDS: CEFTRIAXONE 2 GM/50 ML (PMX) 50 ML IVPB SCH (22:19)
[2017-01-31] MEDS: METOPROLOL 25 MG TAB PO SCH (22:20)
[2017-02-01] VITALS (12 sets, daily range): BP systolic 94–115; BP diastolic 54–63; PULSE 82–98; RESP 18–20
[2017-02-01] MEDS: ONDANSETRON 4 MG INJ IV PRN ×2 (03:06→10:50)
[2017-02-01] MEDS: FUROSEMIDE 20 MG TAB PO SCH (05:59)
[2017-02-01] MEDS: PANTOPRAZOLE 40 MG INJ IV SCH ×2 (06:00→06:14)
[2017-02-01 08:25] LABS: ALBUMIN 2.7 g/dl (3.3-4.9)
[2017-02-01 08:28] LABS: ALBUMIN/GLOBULIN RATIO 0.57; BILIRUBIN,INDIRECT 0.2 mg/dl (0-1.1); BILIRUBIN,TOTAL 0.2 mg/dl (0.2-1.3); CREATININE 1.24 mg/dl (0.61-1.24); TOTAL PROTEIN 7.4 g/dl (6.1-8.1)
[2017-02-01 08:29] LABS: CALCIUM 7.5 mg/dl (8.4-10.2); MAGNESIUM 1.5 mg/dl (1.7-2.5); PHOSPHORUS 4.7 mg/dl (2.5-4.9)
[2017-02-01 08:30] LABS: CHOL/HDL RATIO 4.7 RATIO
[2017-02-01 08:37] LABS: T3 UPTAKE 34.8 % (23.5-40.5)
[2017-02-01 08:52] LABS: THYROID STIMULATING HORMONE 23.3 MIU/L (0.465-4.680)
[2017-02-01] MEDS: POTASSIUM CHLORIDE (SR) 8 MEQ CAP PO SCH (10:49)
[2017-02-01] MEDS: FAMOTIDINE 20 MG TAB PO SCH (10:50)
[2017-02-01] MEDS: HYDROCODONE/APAP (5/325) TAB PO PRN ×2 (10:50→21:00)
[2017-02-01] MEDS: METOPROLOL 25 MG TAB PO SCH ×2 (10:52→20:37)
--- NOTE | 2017-02-01 12:47 | CONS ---
DATE OF ADMISSION: 01/31/2017 DATE OF CONSULTATION: 02/01/2017 TYPE OF CONSULTATION: Pulmonary. REASON FOR CONSULTATION: Shortness of breath, abnormal chest x-ray and hemoptysis. HISTORY OF PRESENT ILLNESS: This is a 71-year-old gentleman with recent hospitalization for encepha lopathy, sepsis and pneumonia, as well as a history of CML, who comes in with epistaxis and signific ant hemoptysis. The patient has been coughing up significant amounts of bright red blood in the pas t 24 hours. He remains hemodynamically stable. Denies any sick contacts. Denies a history of TB. Previously noted to have significant pancytopenia from treatment for his CML. PAST MEDICAL HISTORY: 1. CML with pancytopenia. 2. Acute kidney injury. 3. History of hypertension. 4. Gastroesophageal reflux disease. MEDICATIONS: Per chart. ALLERGIES: None known. SOCIAL HISTORY: Remote tobacco history. No alcohol, no history of drug use. FAMILY HISTORY: Noncontributory. SYSTEMS REVIEW: A 12-point review of systems was negative, other than that mentioned above. PHYSICAL EXAMINATION: GENERAL: A thin gentleman, comfortable at rest, in no acute distress, talking in full and complete sentences. VITAL SIGNS: Currently afebrile. Pulse is 90, blood pressure 111/57, O2 saturation 96% on FIO2 of 3 liters. NECK: Supple. No JVD or lymphadenopathy. CARDIAC EXAM: S1, S2. No added sounds or murmurs. CHEST: Diminished air entry bilaterally, with coarse rhonchi. ABDOMEN: Soft, nontender. No guarding or rebound. EXTREMITIES: No cyanosis, clubbing or edema. NEUROLOGIC: Generalized weakness. LABORATORY: BUN 29, creatinine 1.24, platelets 4, white count 18, hemoglobin 12.7. IMPRESSION AND PLAN: 1. Likely healthcare-associated pneumonia. 2. Severe pancytopenia with thrombocytopenia. 3. Significant hemoptysis, which may be secondary to underlying pancytopenia. 4. History of hypertension and gastroesophageal reflux disease. PLAN: 1. The patient will need to be placed in respiratory isolation and rule out TB. 2. Correction of bleeding diathesis with platelet transfusion. Consider hematology/oncology evalua tion. 3. Aspiration precautions. 4. ENT recommendations. Dictated By: SAMARA LOZANO/RADHA Conf#: [id number] [facility]#: [id number]
--- NOTE | 2017-02-01 13:22 | CONS ---
Date/Time of Note Date/Time of Note DATE: 02/01/17 TIME: 13:20 Assessment/Plan Assessment/Plan Additional Assessment/Plan 1. Acute kidney injury, likely secondary to prerenal azotemia causing ischemic acute tubular necrosis. 2. Rule out chronic kidney disease from other medical problems. 3. History of chronic myeloid leukemia, on chemotherapy. 4. Thrombocytopenia with a severe anemia with a platelet count of 4. 5. History of gastroesophageal reflux disease, history of chronic obstructive pulmonary disease. 6. History of recent last admission and had a very long complicated course including sepsis, acute hypoxemic respiratory failure, non-ST elevation myocardial infarctions and acute encephalopathy. Plan: Manesium sulfate 2 gram IV x 1 now BP stable cr improving will follo wup Consultation Date/Type/Reason Admit Date/Time Jan 31, 2017 at 14:31 Initial Consult Date Type of Consultation: NEPHROLOGY Reason for Consultation acute kidney injury, Hypomagnesemia Referring Provider: DUNIA BECKWITH 24 HR Interval Summary Free Text/Dictation Cr improving, Magnesium low,BP stable Exam/Review of Systems Vital Signs Vitals Vital Signs Date Time Temp Pulse Resp B/P Pulse Ox O2 Delivery O2 Flow Rate FiO2 02/01/17 12:36 90 02/01/17 11:38 97.1 18 111/54 96 01/31/17 18:00 Nasal Cannula 2.0 Intake and Output 01/31/17 01/31/17 02/01/17 15:00 23:00 07:00 Intake Total 1000 ml Output Total 900 ml Balance 100 ml Exam GENERAL: Awake but intermittently lethargic. HEENT: No jaundice. No scleral icterus. NECK: Supple, no lymphadenopathy. LUNGS: Decreased breath sounds at both lung bases with bibasilar rales. HEART: S1, S2, tachycardia, no murmur. ABDOMEN: Soft, nontender, nondistended. Bowel sounds are present. EXTREMITIES: No clubbing, cyanosis, edema. NEUROLOGICAL: The patient is alert, awake but not oriented to place and person. Cranial nerves II through XII intact. Motor strength is fine. Reflexes are normal. PSYCHIATRIC: Appropriate affect and mood. SKIN: No rash. GENITOURINARY: The patient deferred examination. Results Result Diagram: 01/31/17 1240 02/01/17 0558 Results 24 hrs Laboratory Tests Test 01/31/17 14:30 01/31/17 16:55 02/01/17 05:58 Lactic Acid Level 0.9 0.8 Alanine Aminotransferase (ALT/SGPT) 16 Albumin 2.7 L Albumin/Globulin Ratio 0.57 Alkaline Phosphatase 61 Anion Gap 13 Aspartate Amino Transf (AST/SGOT) 28 Blood Urea Nitrogen 29 H Calcium Level 7.5 L Carbon Dioxide Level 28 Chloride Level 105 Cholesterol Level 100 Cholesterol/HDL Ratio 4.7 Creatinine 1.24 Direct Bilirubin 0.00 Free Thyroxine Index 1.36 Globulin 4.70 H Glucose Level 99 HDL Cholesterol 21 L Hemoglobin A1c Indirect Bilirubin 0.2 LDL Cholesterol, Calculated 43 Magnesium Level 1.5 L Phosphorus Level 4.7 Potassium Level 4.0 Sodium Level 142 Thyroid Stimulating Hormone (TSH) 23.300 H Thyroxine (T4) 3.9 L Total Bilirubin 0.2 Total Protein 7.4 # Triglycerides Level 180 H Triiodothyronine (T3) Uptake 34.8 Medications Medications Current Medications Ondansetron HCl (Zofran Inj) 4 mg Q6H PRN IV NAUSEA AND/OR VOMITING Last administered on 02/01/17 10:50; Admin Dose 4 MG; Start 01/31/17 at 17:00 Acetaminophen (Tylenol Tab) 650 mg Q6H PRN PO PAIN LEVEL 1-3 OR FEVER; Start at 17:00 Acetaminophen (Tylenol Supp) 650 mg Q6H PRN [place] PAIN LEVEL 1-3 OR FEVER; Start 01/31/17 at 17:00 Acetaminophen/ Hydrocodone Bitart ([place] (5/325)) 1 tab Q6H PRN PO MODERATE PAIN LEVEL 4-6 Last administered on 02/01/17 10:50; Admin Dose 1 TAB; Start at 17:00 Acetaminophen/ Hydrocodone Bitart ([place] (5/325)) 2 tab Q6H PRN PO SEVERE PAIN LEVEL 7-10; Start 01/31/17 at 17:00 Morphine Sulfate (morphine) 2 mg Q4H PRN IV SEVERE PAIN LEVEL 7-10; Start 01/31 at 17:00 Docusate Sodium (Colace) 100 mg Q12H PRN PO CONSTIPATION; Start 01/31/17 at 17: 00 Magnesium Hydroxide (Milk Of Mag) 30 ml DAILY PRN PO CONSTIPATION; Start at 17:00 Bisacodyl (Dulcolax Supp) 10 mg DAILY PRN [place] CONSTIPATION; Start 01/31/17 at 17 :00 Pantoprazole (Protonix Iv) 40 mg DAILY@06 IV Last administered on 02/01/17 06: 14; Admin Dose 40 MG; Start 02/01/17 at 06:00 Famotidine (Pepcid) 20 mg DAILY PO Last administered on 02/01/17 10:50; Admin Dose 20 MG; Start 02/01/17 at 09:00 Furosemide (Lasix) 20 mg DAILY@06 PO Last administered on 02/01/17 05:59; Admin Dose 20 MG; Start 02/01/17 at 06:00 Metoprolol Tartrate (Lopressor) 25 mg BID PO Last administered on 02/01/17 10: 52; Admin Dose 25 MG; Start 01/31/17 at 21:00 Potassium Chloride 8 meq 8 meq DAILY PO Last administered on 02/01/17 10:49; Admin Dose 8 MEQ; Start 02/01/17 at 09:00 Ceftriaxone Sodium 50 ml @ 100 mls/hr DAILY@20 IVPB Last administered on 22:19; Admin Dose 100 MLS/HR; Start 01/31/17 at 20:00 Azithromycin (Zithromax 500mg/ NS (Pmx)) 250 ml @ 250 mls/hr DAILY@18 IVPB Last administered on 01/31/17 22:19; Admin Dose 250 MLS/HR; Start 01/31/17 at 18:00 Albuterol/ Ipratropium (Duoneb) 3 ml Q4 PRN HHN dyspnea; Start 01/31/17 at 17: 00 GILL PEREIRA MD Feb 01, 2017 13:22
[2017-02-01] MEDS ORDERED: MAGNESIUM SULFATE 2 GM/50 ML 50 ML IVPB ONE (13:30)
--- NOTE | 2017-02-01 13:34 | PN ---
Date/Time of Note Date/Time of Note DATE: 02/01/17 TIME: 13:28 Assessment/Plan VTE Prophylaxis VTE Prophylaxis Intervention: contraindicated Lines/Catheters IV [facility]from [facility] Peripheral IV Urinary Cath still in place: No Assessment/Plan Chief Complaint/Hosp Course Assessment/Plan 1. Epistaxis and hemoptysis. Patient seen by ENT physician. No plan for intervention at this time. Continue with platelet correction 2. History of CML. Await banquet pilot's recommendations. We'll follow-up 3. Worsening pneumonia. Follow-up CT scan of the chest. Adjunct Sociology Professor following. Continue with antibiotics 4. Nodular densities with one measuring 1.5 cm and another at 1.[address] scan of the chest is pending. Follow up on AFB 5. History of respiratory failure. We will provide with bronchodilators and O2 as needed. 6. Epistaxis. Continue with platelet correction. No epistaxis at this time 7. Acute on likely chronic kidney injury. Nurse Clinical follow. Continue to monitor renal panel. Improving at present 8. Leukocytosis, likely secondary to pneumonia. Continue antibiotics for now 9. History of CHF. We will continue optimization of the patient's cardiovascular medications. Of note, the patient's recent ejection fraction noted to be 45% to 50% from previous echo. 10. Deep venous thrombosis prophylaxis: Sequential compression devices. DISPO/PLAN: follow up afb and cbc. Await hematology input. cont with anemia correction. cont inpatient monitoring Discussed plan of care with Dr. Roman Problems: Subjective 24 Hr Interval Summary Free Text/Dictation still coughing up blood. no shortness of breath or chest pain Exam/Review of Systems Vital Signs Vitals Vital Signs Date Time Temp Pulse Resp B/P Pulse Ox O2 Delivery O2 Flow Rate FiO2 02/01/17 12:36 90 02/01/17 11:38 97.1 18 111/54 96 01/31/17 18:00 Nasal Cannula 2.0 Intake and Output 01/31/17 01/31/17 02/01/17 15:00 23:00 07:00 Intake Total 1000 ml Output Total 900 ml Balance 100 ml Exam General: pale in complexion, still coughing up blood Eyes: pupils equal round, Anicteric sclera Neck: Supple nontender, no JVD Cardiac: S1, S2 auscultated, regular rhythm and rate Pulmonary: course lung sounds bilaterally GI: Abdomen soft nontender nondistended, bowel sounds active Extremities: No edema bilateral lower extremities Skin: Petechiae BLE Neurologic: Alert to person place and time and situation Results Result Diagram: 01/31/17 1240 02/01/17 0558 Results 24 hrs Laboratory Tests Test 01/31/17 14:30 01/31/17 16:55 02/01/17 05:58 Lactic Acid Level 0.9 0.8 Alanine Aminotransferase (ALT/SGPT) 16 Albumin 2.7 L Albumin/Globulin Ratio 0.57 Alkaline Phosphatase 61 Anion Gap 13 Aspartate Amino Transf (AST/SGOT) 28 Blood Urea Nitrogen 29 H Calcium Level 7.5 L Carbon Dioxide Level 28 Chloride Level 105 Cholesterol Level 100 Cholesterol/HDL Ratio 4.7 Creatinine 1.24 Direct Bilirubin 0.00 Free Thyroxine Index 1.36 Globulin 4.70 H Glucose Level 99 HDL Cholesterol 21 L Hemoglobin A1c Indirect Bilirubin 0.2 LDL Cholesterol, Calculated 43 Magnesium Level 1.5 L Phosphorus Level 4.7 Potassium Level 4.0 Sodium Level 142 Thyroid Stimulating Hormone (TSH) 23.300 H Thyroxine (T4) 3.9 L Total Bilirubin 0.2 Total Protein 7.4 # Triglycerides Level 180 H Triiodothyronine (T3) Uptake 34.8 Medications Medications Current Medications Ondansetron HCl (Zofran Inj) 4 mg Q6H PRN IV NAUSEA AND/OR VOMITING Last administered on 02/01/17 10:50; Admin Dose 4 MG; Start 01/31/17 at 17:00 Acetaminophen (Tylenol Tab) 650 mg Q6H PRN PO PAIN LEVEL 1-3 OR FEVER; Start at 17:00 Acetaminophen (Tylenol Supp) 650 mg Q6H PRN [place] PAIN LEVEL 1-3 OR FEVER; Start 01/31/17 at 17:00 Acetaminophen/ Hydrocodone Bitart ([place] (5/325)) 1 tab Q6H PRN PO MODERATE PAIN LEVEL 4-6 Last administered on 02/01/17 10:50; Admin Dose 1 TAB; Start at 17:00 Acetaminophen/ Hydrocodone Bitart ([place] (5/325)) 2 tab Q6H PRN PO SEVERE PAIN LEVEL 7-10; Start 01/31/17 at 17:00 Morphine Sulfate (morphine) 2 mg Q4H PRN IV SEVERE PAIN LEVEL 7-10; Start 01/31 at 17:00 Docusate Sodium (Colace) 100 mg Q12H PRN PO CONSTIPATION; Start 01/31/17 at 17: 00 Magnesium Hydroxide (Milk Of Mag) 30 ml DAILY PRN PO CONSTIPATION; Start at 17:00 Bisacodyl (Dulcolax Supp) 10 mg DAILY PRN [place] CONSTIPATION; Start 01/31/17 at 17 :00 Pantoprazole (Protonix Iv) 40 mg DAILY@06 IV Last administered on 02/01/17 06: 14; Admin Dose 40 MG; Start 02/01/17 at 06:00 Famotidine (Pepcid) 20 mg DAILY PO Last administered on 02/01/17 10:50; Admin Dose 20 MG; Start 02/01/17 at 09:00 Furosemide (Lasix) 20 mg DAILY@06 PO Last administered on 02/01/17 05:59; Admin Dose 20 MG; Start 02/01/17 at 06:00 Metoprolol Tartrate (Lopressor) 25 mg BID PO Last administered on 02/01/17 10: 52; Admin Dose 25 MG; Start 01/31/17 at 21:00 Potassium Chloride 8 meq 8 meq DAILY PO Last administered on 02/01/17 10:49; Admin Dose 8 MEQ; Start 02/01/17 at 09:00 Ceftriaxone Sodium 50 ml @ 100 mls/hr DAILY@20 IVPB Last administered on 22:19; Admin Dose 100 MLS/HR; Start 01/31/17 at 20:00 Azithromycin (Zithromax 500mg/ NS (Pmx)) 250 ml @ 250 mls/hr DAILY@18 IVPB Last administered on 01/31/17 22:19; Admin Dose 250 MLS/HR; Start 01/31/17 at 18:00 Albuterol/ Ipratropium 3 ml 3 ml Q4 PRN HHN dyspnea; Start 01/31/17 at 17:00 Magnesium Sulfate (Magnesium Sulfate 2 Gm/50 ml) 50 ml @ 25 mls/hr ONCE ONCE IVPB ; Start 02/01/17 at 13:30; Stop 02/01/17 at 15:29 CHARLY LAWRENCE Feb 01, 2017 13:34
[2017-02-01 14:51] LABS: ADD SCAN DIFF NO
[2017-02-01 14:52] LABS: ABNORMAL IP MESSAGE 1; HEMATOCRIT 19.7 % (42.0-52.0); MEAN CORPUSCULAR HEMOGLOBIN 29.7 pg (29.0-33.0); MEAN CORPUSCULAR HGB CONC 33.5 g/dl (32.0-37.0); MEAN CORPUSCULAR VOLUME 88.7 fl (82.0-101.0); MEAN PLATELET VOLUME 12.1 fl (7.4-10.4); RED BLOOD COUNT 2.22 10^6/ul (4.70-6.10); RED CELL DISTRIBUTION WIDTH 15.9 % (11.5-14.5); WHITE BLOOD COUNT 20.1 10^3/ul (4.8-10.8)
[2017-02-01 15:07] LABS: HEMOGLOBIN 6.6 g/dl (14.0-18.0)
[2017-02-01 15:08] LABS: PLATELET COUNT 18 10^3/UL (140-415)
[2017-02-01 16:43] LABS: BASOPHIL # 0.2 10^3/ul (0.0-0.1); LYMPHOCYTES # 5.6 10^3/ul (0.8-2.9); MONOCYTE # 5.6 10^3/ul (0.3-0.9); MYELOCYTES # 0.6; NEUTROPHIL # 7.2 10^3/ul (1.6-7.5)
[2017-02-01] MEDS: AZITHROMYCIN 500MG/NS (PMX) 250 ML IVPB SCH (18:27)
[2017-02-01] MEDS: CEFTRIAXONE 2 GM/50 ML (PMX) 50 ML IVPB SCH (20:37)
[2017-02-02] VITALS (10 sets, daily range): BP systolic 105–159; BP diastolic 55–84; PULSE 75–93; RESP 16–18
[2017-02-02] MEDS ORDERED: FUROSEMIDE 20 MG INJ IV ONE (02:00)
[2017-02-02] MEDS: FUROSEMIDE 20 MG TAB PO SCH (06:00)
[2017-02-02] MEDS: LEVOTHYROXINE 50 MCG TAB PO SCH (06:21)
[2017-02-02] MEDS: POTASSIUM CHLORIDE (SR) 8 MEQ CAP PO SCH (10:17)
[2017-02-02] MEDS: FAMOTIDINE 20 MG TAB PO SCH (10:17)
[2017-02-02] MEDS: HYDROCODONE/APAP (5/325) TAB PO PRN (10:17)
[2017-02-02] MEDS: METOPROLOL 25 MG TAB PO SCH ×2 (10:23→21:19)
[2017-02-02] MEDS ORDERED: FUROSEMIDE 20 MG INJ IV SCH (11:30)
[2017-02-02 15:11] LABS: ADD SCAN DIFF NO
[2017-02-02 15:30] LABS: POTASSIUM 4.1 mmol/L (3.5-5.1)
[2017-02-02 15:32] LABS: CREATININE 1.24 mg/dl (0.61-1.24)
[2017-02-02 15:33] LABS: CALCIUM 7.6 mg/dl (8.4-10.2)
--- NOTE | 2017-02-02 15:47 | PN ---
Date/Time of Note Date/Time of Note DATE: 02/02/17 TIME: 15:40 Assessment/Plan VTE Prophylaxis VTE Prophylaxis Intervention: contraindicated Lines/Catheters IV [facility] [place] Urinary Cath still in place: No Assessment/Plan Chief Complaint/Hosp Course Assessment/Plan 1. Epistaxis and hemoptysis. Patient seen by ENT physician. No plan for intervention at this time. Continue with platelet correction. Awaiting follow- up labs 2. History of CML. Await bullet swaging machine operator's recommendations. We'll follow-up 3. pneumonia. Continue on antibiotics. Follow-up on x-ray. Continue with pulmonology recommendations 4. Nodular densities with one measuring 1.5 cm and another at 1.[address] scan of the chest is pending. Follow up on AFB. 5. History of respiratory failure. We will provide with bronchodilators and O2 as needed. 6. Epistaxis. Continue with platelet correction. No epistaxis at this time 7. Acute on likely chronic kidney injury. Straightening Roll Operator following. Continue to monitor renal panel. stable at present 8. Leukocytosis, likely secondary to pneumonia. Continue antibiotics for now 9. History of CHF. We will continue optimization of the patient's cardiovascular medications. Of note, the patient's recent ejection fraction noted to be 45% to 50% from previous echo. 10. Deep venous thrombosis prophylaxis: Sequential compression devices. DISPO/PLAN: follow up afb and cbc. Await hematology input. prbc and platelets as needed. check f/u chest radiograph Discussed plan of care with Dr. Roman Problems: Subjective 24 Hr Interval Summary Free Text/Dictation Reports no hemoptysis today. Reports little bit better breathing Exam/Review of Systems Vital Signs Vitals Vital Signs Date Time Temp Pulse Resp B/P Pulse Ox O2 Delivery O2 Flow Rate FiO2 02/02/17 13:23 5.0 02/02/17 13:04 85 20 98 Aerosol Mask 02/02/17 12:02 97.8 159/84 Intake and Output 02/01/17 02/01/17 02/02/17 15:00 23:00 07:00 Intake Total 950 ml Output Total 800 ml Balance 150 ml Exam General: Pale in complexion. No signs or symptoms of distress. Eyes: pupils equal round, Anicteric sclera Neck: Supple nontender, no JVD Cardiac: S1, S2 auscultated, regular rhythm and rate Pulmonary: Still noted to be coarse bilaterally GI: Abdomen soft nontender nondistended, bowel sounds active Extremities: No edema bilateral lower extremities Skin: Petechiae BLE Neurologic: Alert to person place and time and situation Results Result Diagram: 02/01/17 1415 02/01/17 0558 Medications Medications Current Medications Ondansetron HCl (Zofran Inj) 4 mg Q6H PRN IV NAUSEA AND/OR VOMITING Last administered on 02/01/17 10:50; Admin Dose 4 MG; Start 01/31/17 at 17:00 Acetaminophen (Tylenol Tab) 650 mg Q6H PRN PO PAIN LEVEL 1-3 OR FEVER; Start at 17:00 Acetaminophen (Tylenol Supp) 650 mg Q6H PRN [place] PAIN LEVEL 1-3 OR FEVER; Start 01/31/17 at 17:00 Acetaminophen/ Hydrocodone Bitart ([place] (5/325)) 1 tab Q6H PRN PO MODERATE PAIN LEVEL 4-6 Last administered on 02/02/17 10:17; Admin Dose 1 TAB; Start at 17:00 Acetaminophen/ Hydrocodone Bitart ([place] (5/325)) 2 tab Q6H PRN PO SEVERE PAIN LEVEL 7-10; Start 01/31/17 at 17:00 Morphine Sulfate (morphine) 2 mg Q4H PRN IV SEVERE PAIN LEVEL 7-10; Start 01/31 at 17:00 Docusate Sodium (Colace) 100 mg Q12H PRN PO CONSTIPATION; Start 01/31/17 at 17: 00 Magnesium Hydroxide (Milk Of Mag) 30 ml DAILY PRN PO CONSTIPATION; Start at 17:00 Bisacodyl (Dulcolax Supp) 10 mg DAILY PRN [place] CONSTIPATION; Start 01/31/17 at 17 :00 Pantoprazole (Protonix Iv) 40 mg DAILY@06 IV Last administered on 02/01/17 06: 14; Admin Dose 40 MG; Start 02/01/17 at 06:00 Famotidine (Pepcid) 20 mg DAILY PO Last administered on 02/02/17 10:17; Admin Dose 20 MG; Start 02/01/17 at 09:00 Furosemide (Lasix) 20 mg DAILY@06 PO Last administered on 02/01/17 05:59; Admin Dose 20 MG; Start 02/01/17 at 06:00 Metoprolol Tartrate (Lopressor) 25 mg BID PO Last administered on 02/02/17 10: 23; Admin Dose 25 MG; Start 01/31/17 at 21:00 Potassium Chloride 8 meq 8 meq DAILY PO Last administered on 02/02/17 10:17; Admin Dose 8 MEQ; Start 02/01/17 at 09:00 Ceftriaxone Sodium 50 ml @ 100 mls/hr DAILY@20 IVPB Last administered on 20:37; Admin Dose 100 MLS/HR; Start 01/31/17 at 20:00 Azithromycin (Zithromax 500mg/ NS (Pmx)) 250 ml @ 250 mls/hr DAILY@18 IVPB Last administered on 02/01/17 18:27; Admin Dose 250 MLS/HR; Start 01/31/17 at 18:00 Albuterol/ Ipratropium (Duoneb) 3 ml Q4 PRN HHN dyspnea Last administered on 13:04; Admin Dose 3 ML; Start 01/31/17 at 17:00 Levothyroxine Sodium (Synthroid) 50 mcg DAILY@06 PO Last administered on 06:21; Admin Dose 50 MCG; Start 02/02/17 at 06:00 CHARLY LAWRENCE Feb 02, 2017 15:46
[2017-02-02 16:50] LABS: ABNORMAL IP MESSAGE 1; HEMATOCRIT 21.6 % (42.0-52.0); MEAN CORPUSCULAR HEMOGLOBIN 28.2 pg (29.0-33.0); MEAN CORPUSCULAR HGB CONC 31.9 g/dl (32.0-37.0); MEAN CORPUSCULAR VOLUME 88.2 fl (82.0-101.0); MEAN PLATELET VOLUME 9.5 fl (7.4-10.4); RED BLOOD COUNT 2.45 10^6/ul (4.70-6.10); RED CELL DISTRIBUTION WIDTH 17.1 % (11.5-14.5); WHITE BLOOD COUNT 13.5 10^3/ul (4.8-10.8)
[2017-02-02 16:53] LABS: HEMOGLOBIN 6.9 g/dl (14.0-18.0); PLATELET COUNT 6 10^3/UL (140-415)
--- NOTE | 2017-02-02 17:28 | PN ---
DATE: 02/02/2017 SUBJECTIVE: Patient Kristian is stable this morning. There is no further hemoptysis. He is awake, alert, talking on the telephone, no evidence of respiratory distress. OBJECTIVE: VITAL SIGNS: Temperature 97, pulse 75, blood pressure 159/84, O2 saturation 96% on room air. NECK: Supple. No JVD or lymphadenopathy. CARDIAC: S1, S2, no added sounds or murmurs. CHEST: Diminished air entry bilaterally with rales. ABDOMEN: Soft, nontender. No guarding or rebound. EXTREMITIES: No cyanosis, clubbing or edema. NEUROLOGIC: Generalized weakness. LABORATORY DATA: White count 20.1, hemoglobin 6.6, platelets of 18. Chemistry within normal limits . IMPRESSION AND PLAN: 1. History of chronic myelogenous leukemia, status post chemotherapy, complicated by pancytopenia. 2. Significant epistaxis and hemoptysis. 3. Rule out tuberculosis. 4. Congestive heart failure. 5. Significant anemia. PLAN: 1. Continue pulmonary toilet. 2. We will continue AFB studies. 3. Transfusion of packed red blood cells. 4. CT scan when more stable. 4. DVT and GI prophylaxis. Dictated By: SAMARA LOZANO/RADHA Conf#: [id number] DID#: [id number]
[2017-02-02 18:00] LABS: MONOCYTE # 6.3 10^3/ul (0.3-0.9); MYELOCYTES # 0.4; NEUTROPHIL # 3.2 10^3/ul (1.6-7.5); PLATELET ESTIMATE PLT APPEAR DECREASED
[2017-02-02] MEDS: AZITHROMYCIN 500MG/NS (PMX) 250 ML IVPB SCH (18:40)
[2017-02-02] MEDS: CEFTRIAXONE 2 GM/50 ML (PMX) 50 ML IVPB SCH (21:19)
--- NOTE | 2017-02-02 21:21 | CONS ---
Date/Time of Note Date/Time of Note DATE: 02/02/17 TIME: 21:19 Assessment/Plan Assessment/Plan Additional Assessment/Plan 1. Acute kidney injury, likely secondary to prerenal azotemia causing ischemic acute tubular necrosis. 2. Rule out chronic kidney disease from other medical problems. 3. History of chronic myeloid leukemia, on chemotherapy. 4. Thrombocytopenia with a severe anemia with a platelet count of 4. 5. History of gastroesophageal reflux disease, history of chronic obstructive pulmonary disease. 6. History of recent last admission and had a very long complicated course including sepsis, acute hypoxemic respiratory failure, non-ST elevation myocardial infarctions and acute encephalopathy. Plan: Cr improving, Cr 1.24 Bp stable Hb dropped to 6.6, Tranfuse plan as per Oncology and PMD will continue to follow up Consultation Date/Type/Reason Admit Date/Time Jan 31, 2017 at 14:31 Initial Consult Date 01/31/2017 Type of Consultation: NEPHROLOGY Reason for Consultation acute kidney injury, severe anemia, thrombocytopenia Referring Provider: DUNIA BECKWITH 24 HR Interval Summary Free Text/Dictation Cr 1.124, Hb dropped to 6.6, afebrile, Exam/Review of Systems Vital Signs Vitals Vital Signs Date Time Temp Pulse Resp B/P Pulse Ox O2 Delivery O2 Flow Rate FiO2 02/02/17 20:58 98.3 85 16 105/55 95 02/02/17 13:23 5.0 02/02/17 13:04 Aerosol Mask Intake and Output 02/01/17 02/01/17 02/02/17 15:00 23:00 07:00 Intake Total 950 ml Output Total 800 ml Balance 150 ml Results Result Diagram: 02/02/17 1450 02/02/17 1450 Results 24 hrs Laboratory Tests Test 02/02/17 14:50 Anion Gap 14 Band Neutrophils % 1.0 Blast Cells % 2.0 H Blastocytes # 0.3 Blood Urea Nitrogen 28 H Calcium Level 7.6 L Carbon Dioxide Level 28 Chloride Level 102 Creatinine 1.24 Glucose Level 134 Hematocrit 21.6 L Hemoglobin 6.9 *L Lymphocytes # 3.0 H Lymphocytes % 22.0 Mean Corpuscular Hemoglobin 28.2 L Mean Corpuscular Hemoglobin Concent 31.9 L Mean Corpuscular Volume 88.2 Mean Platelet Volume 9.5 # Metamyelocytes # 0.1 Metamyelocytes % 1.0 H Monocytes # 6.3 H Monocytes % 47.0 H Myelocytes # 0.4 Myelocytes % 3.0 H Neutrophils # 3.2 Neutrophils % 24.0 L Nucleated Red Blood Cells % 7.0 H Platelet Count 6 #*L Platelet Estimate PLT APPEAR DECREASED Potassium Level 4.1 Red Blood Count 2.45 L Red Cell Distribution Width 17.1 H Sodium Level 140 White Blood Count 13.5 #H Medications Medications Current Medications Ondansetron HCl (Zofran Inj) 4 mg Q6H PRN IV NAUSEA AND/OR VOMITING Last administered on 02/01/17 10:50; Admin Dose 4 MG; Start 01/31/17 at 17:00 Acetaminophen (Tylenol Tab) 650 mg Q6H PRN PO PAIN LEVEL 1-3 OR FEVER; Start at 17:00 Acetaminophen (Tylenol Supp) 650 mg Q6H PRN [place] PAIN LEVEL 1-3 OR FEVER; Start 01/31/17 at 17:00 Acetaminophen/ Hydrocodone Bitart ([place] (5/325)) 1 tab Q6H PRN PO MODERATE PAIN LEVEL 4-6 Last administered on 02/02/17 10:17; Admin Dose 1 TAB; Start at 17:00 Acetaminophen/ Hydrocodone Bitart ([place] (5/325)) 2 tab Q6H PRN PO SEVERE PAIN LEVEL 7-10; Start 01/31/17 at 17:00 Morphine Sulfate (morphine) 2 mg Q4H PRN IV SEVERE PAIN LEVEL 7-10; Start 01/31 at 17:00 Docusate Sodium (Colace) 100 mg Q12H PRN PO CONSTIPATION; Start 01/31/17 at 17: 00 Magnesium Hydroxide (Milk Of Mag) 30 ml DAILY PRN PO CONSTIPATION; Start at 17:00 Bisacodyl (Dulcolax Supp) 10 mg DAILY PRN [place] CONSTIPATION; Start 01/31/17 at 17 :00 Pantoprazole (Protonix Iv) 40 mg DAILY@06 IV Last administered on 02/01/17 06: 14; Admin Dose 40 MG; Start 02/01/17 at 06:00 Famotidine (Pepcid) 20 mg DAILY PO Last administered on 02/02/17 10:17; Admin Dose 20 MG; Start 02/01/17 at 09:00 Furosemide (Lasix) 20 mg DAILY@06 PO Last administered on 02/01/17 05:59; Admin Dose 20 MG; Start 02/01/17 at 06:00 Metoprolol Tartrate (Lopressor) 25 mg BID PO Last administered on 02/02/17 10: 23; Admin Dose 25 MG; Start 01/31/17 at 21:00 Potassium Chloride 8 meq 8 meq DAILY PO Last administered on 02/02/17 10:17; Admin Dose 8 MEQ; Start 02/01/17 at 09:00 Ceftriaxone Sodium 50 ml @ 100 mls/hr DAILY@20 IVPB Last administered on 20:37; Admin Dose 100 MLS/HR; Start 01/31/17 at 20:00 Azithromycin (Zithromax 500mg/ NS (Pmx)) 250 ml @ 250 mls/hr DAILY@18 IVPB Last administered on 02/02/17 18:40; Admin Dose 250 MLS/HR; Start 01/31/17 at 18:00 Albuterol/ Ipratropium (Duoneb) 3 ml Q4 PRN HHN dyspnea Last administered on 13:04; Admin Dose 3 ML; Start 01/31/17 at 17:00 Levothyroxine Sodium (Synthroid) 50 mcg DAILY@06 PO Last administered on 06:21; Admin Dose 50 MCG; Start 02/02/17 at 06:00 GILL PEREIRA MD Feb 02, 2017 21:20
[2017-02-03] VITALS (12 sets, daily range): BP systolic 109–124; BP diastolic 54–68; PULSE 70–99; RESP 16–19
[2017-02-03] MEDS: LEVOTHYROXINE 50 MCG TAB PO SCH (05:35)
[2017-02-03] MEDS: PANTOPRAZOLE 40 MG INJ IV SCH (05:35)
[2017-02-03] MEDS: FUROSEMIDE 20 MG TAB PO SCH (05:36)
[2017-02-03 07:37] LABS: ADD SCAN DIFF NO
[2017-02-03 07:46] LABS: ABNORMAL IP MESSAGE 1; HEMOGLOBIN 7.7 g/dl (14.0-18.0); MEAN CORPUSCULAR HEMOGLOBIN 28.6 pg (29.0-33.0); MEAN CORPUSCULAR HGB CONC 33.5 g/dl (32.0-37.0); MEAN CORPUSCULAR VOLUME 85.5 fl (82.0-101.0); MEAN PLATELET VOLUME 9.3 fl (7.4-10.4); RED BLOOD COUNT 2.69 10^6/ul (4.70-6.10); RED CELL DISTRIBUTION WIDTH 17.2 % (11.5-14.5); WHITE BLOOD COUNT 13.9 10^3/ul (4.8-10.8)
[2017-02-03 07:52] LABS: PLATELET COUNT 18 10^3/UL (140-415)
[2017-02-03 07:58] LABS: POTASSIUM 3.9 mmol/L (3.5-5.1)
[2017-02-03 08:01] LABS: CREATININE 1.32 mg/dl (0.61-1.24)
--- NOTE | 2017-02-03 09:17 | RADRPT ---
PROCEDURE: XR Chest. CLINICAL INDICATION: Pneumonia. TECHNIQUE: Single frontal view of the chest was obtained. COMPARISON: 01/31/2017 and prior. FINDINGS: Cardiac silhouette is borderline enlarged. There is calcification in the thoracic aorta. Upper lob e vasculature is mildly prominent. There is mild diffuse interstitial prominence bilaterally. Ther e are asymmetric air space opacities in the left mid lung field, both lung bases and to a lesser ext ent in the right upper lobe. There is a tiny right pleural effusion that has developed. The previo usly described nodular opacities and pleural thickening in the right apex are unchanged. IMPRESSION: 1. Findings suggesting mild congestion with diffuse interstitial edema. 2. Asymmetric airspace opacities, greater on the left than the right. These may reflect edema vers us multi focal pneumonia. 3. Post inflammatory residua in the right apex with some nodular opacities similar to older studies . This may also reflect post inflammatory granulomatous residua. 4. Tiny right pleural effusion. 5. Aortic atherosclerosis. RPTAT: AAC Physician Norman Date Time Electronically viewed and signed by Physician Norman on 02/03/2017 09:16 /
[2017-02-03] MEDS: FAMOTIDINE 20 MG TAB PO SCH (09:35)
[2017-02-03] MEDS: POTASSIUM CHLORIDE (SR) 8 MEQ CAP PO SCH (09:35)
[2017-02-03] MEDS: METOPROLOL 25 MG TAB PO SCH ×2 (09:36→21:25)
[2017-02-03 10:49] LABS: EOSINOPHILS # 0.1 10^3/ul (0.0-0.5); LYMPHOCYTES # 3.8 10^3/ul (0.8-2.9); MONOCYTE # 5.7 10^3/ul (0.3-0.9); MYELOCYTES # 0.6; NEUTROPHIL # 2.8 10^3/ul (1.6-7.5)
--- NOTE | 2017-02-03 11:47 | CONS ---
Date/Time of Note Date/Time of Note DATE: 02/03/17 TIME: 11:45 Assessment/Plan Assessment/Plan Additional Assessment/Plan 1. Acute kidney injury, likely secondary to prerenal azotemia causing ischemic acute tubular necrosis. 2. Rule out chronic kidney disease from other medical problems. 3. History of chronic myeloid leukemia, on chemotherapy. 4. Thrombocytopenia with a severe anemia with a platelet count of 4. 5. History of gastroesophageal reflux disease, history of chronic obstructive pulmonary disease. 6. History of recent last admission and had a very long complicated course including sepsis, acute hypoxemic respiratory failure, non-ST elevation myocardial infarctions and acute encephalopathy. Plan: Cr bumped to 1.32- will give 1 L NS at 50 cc/hr Bp stable Hb dropped to 6.6- today 7.7- PRBC as per hematology and PMD will continue to follow up Consultation Date/Type/Reason Admit Date/Time Jan 31, 2017 at 14:31 Initial Consult Date 01/31/2017 Type of Consultation: NEPHROLOGY Referring Provider: DUNIA BECKWITH 24 HR Interval Summary Free Text/Dictation Cr slightly bumped to 1.27- Exam/Review of Systems Vital Signs Vitals Vital Signs Date Time Temp Pulse Resp B/P Pulse Ox O2 Delivery O2 Flow Rate FiO2 02/03/17 08:22 71 02/03/17 08:00 98.5 18 124/68 94 02/03/17 01:59 5.0 02/02/17 20:00 Nasal Cannula Intake and Output 02/02/17 02/02/17 02/03/17 15:00 23:00 07:00 Intake Total 1200 ml 1320 ml 948 ml Output Total 850 ml 950 ml 1500 ml Balance 350 ml 370 ml -552 ml Exam GENERAL: Awake but intermittently lethargic. HEENT: No jaundice. No scleral icterus. NECK: Supple, no lymphadenopathy. LUNGS: Decreased breath sounds at both lung bases with bibasilar rales. HEART: S1, S2, tachycardia, no murmur. ABDOMEN: Soft, nontender, nondistended. Bowel sounds are present. EXTREMITIES: No clubbing, cyanosis, edema. NEUROLOGICAL: The patient is alert, awake but not oriented to place and person. Cranial nerves II through XII intact. Motor strength is fine. Reflexes are normal. PSYCHIATRIC: Appropriate affect and mood. SKIN: No rash. GENITOURINARY: The patient deferred examination. Results Result Diagram: 02/03/17 0655 02/03/17 0655 Results 24 hrs Laboratory Tests Test 02/02/17 14:50 02/03/17 06:55 Anion Gap 14 15 Band Neutrophils % 1.0 1.0 Blast Cells % 2.0 H Blastocytes # 0.3 Blood Urea Nitrogen 28 H 31 H Calcium Level 7.6 L 8.0 L Carbon Dioxide Level 28 28 Chloride Level 102 101 Creatinine 1.24 1.32 H Glucose Level 134 91 # Hematocrit 21.6 L 23.0 L Hemoglobin 6.9 *L 7.7 L Lymphocytes # 3.0 H 3.8 H Lymphocytes % 22.0 27.0 Mean Corpuscular Hemoglobin 28.2 L 28.6 L Mean Corpuscular Hemoglobin Concent 31.9 L 33.5 Mean Corpuscular Volume 88.2 85.5 Mean Platelet Volume 9.5 # 9.3 Metamyelocytes # 0.1 0.1 Metamyelocytes % 1.0 H 1.0 H Monocytes # 6.3 H 5.7 H Monocytes % 47.0 H 41.0 H Myelocytes # 0.4 0.6 Myelocytes % 3.0 H 4.0 H Neutrophils # 3.2 2.8 Neutrophils % 24.0 L 20.0 L Nucleated Red Blood Cells % 7.0 H Platelet Count 6 #*L 18 #*L Platelet Estimate PLT APPEAR DECREASED Potassium Level 4.1 3.9 Red Blood Count 2.45 L 2.69 L Red Cell Distribution Width 17.1 H 17.2 H Sodium Level 140 140 White Blood Count 13.5 #H 13.9 H Eosinophils # 0.1 Eosinophils % 1.0 Promyelocytes # 0.1 Promyelocytes % 1.0 H Reactive Lymphocytes % 4.0 Medications Medications Current Medications Ondansetron HCl (Zofran Inj) 4 mg Q6H PRN IV NAUSEA AND/OR VOMITING Last administered on 02/01/17t 10:50; Admin Dose 4 MG; Start 01/31/17 at 17:00 Acetaminophen (Tylenol Tab) 650 mg Q6H PRN PO PAIN LEVEL 1-3 OR FEVER; Start at 17:00 Acetaminophen (Tylenol Supp) 650 mg Q6H PRN ID PAIN LEVEL 1-3 OR FEVER; Start 01/31/17 at 17:00 Acetaminophen/ Hydrocodone Bitart ([place] (5/325)) 1 tab Q6H PRN PO MODERATE PAIN LEVEL 4-6 Last administered on 02/02/17 10:17; Admin Dose 1 TAB; Start at 17:00 Acetaminophen/ Hydrocodone Bitart ([place] (5/325)) 2 tab Q6H PRN PO SEVERE PAIN LEVEL 7-10; Start 01/31/17 at 17:00 Morphine Sulfate (morphine) 2 mg Q4H PRN IV SEVERE PAIN LEVEL 7-10; Start 01/31 at 17:00 Docusate Sodium (Colace) 100 mg Q12H PRN PO CONSTIPATION; Start 01/31/17 at 17: 00 Magnesium Hydroxide (Milk Of Mag) 30 ml DAILY PRN PO CONSTIPATION; Start at 17:00 Bisacodyl (Dulcolax Supp) 10 mg DAILY PRN ID CONSTIPATION; Start 01/31/17 at 17 :00 Pantoprazole (Protonix Iv) 40 mg DAILY@06 IV Last administered on 02/03/17 05: 35; Admin Dose 40 MG; Start 02/01/17 at 06:00 Famotidine (Pepcid) 20 mg DAILY PO Last administered on 02/03/17 09:35; Admin Dose 20 MG; Start 02/01/17 at 09:00 Furosemide (Lasix) 20 mg DAILY@06 PO Last administered on 02/03/17 05:36; Admin Dose 20 MG; Start 02/01/17 at 06:00 Metoprolol Tartrate (Lopressor) 25 mg BID PO Last administered on 02/03/17 09: 36; Admin Dose 25 MG; Start 01/31/17 at 21:00 Potassium Chloride 8 meq 8 meq DAILY PO Last administered on 02/03/17 09:35; Admin Dose 8 MEQ; Start 02/01/17 at 09:00 Ceftriaxone Sodium 50 ml @ 100 mls/hr DAILY@20 IVPB Last administered on 21:19; Admin Dose 100 MLS/HR; Start 01/31/17 at 20:00 Azithromycin (Zithromax 500mg/ NS (Pmx)) 250 ml @ 250 mls/hr DAILY@18 IVPB Last administered on 3/19/17at 18:40; Admin Dose 250 MLS/HR; Start 01/31/17 at 18:00 Albuterol/ Ipratropium (Duoneb) 3 ml Q4 PRN HHN dyspnea Last administered on 13:04; Admin Dose 3 ML; Start 01/31/17 at 17:00 Levothyroxine Sodium (Synthroid) 50 mcg DAILY@06 PO Last administered on 05:35; Admin Dose 50 MCG; Start 02/02/17 at 06:00 GILL PEREIRA MD Feb 03, 2017 11:46
[2017-02-03] MEDS ORDERED: SOD CHLORIDE 0.9% 250 ML IV* ONE (13:22)
--- NOTE | 2017-02-03 14:30 | CONS ---
Date/Time of Note Date/Time of Note DATE: 02/03/17 TIME: 14:27 Assessment/Plan Assessment/Plan Additional Assessment/Plan Chest x-ray was reviewed from today which is showing bilaterally without infiltrates in the chart highly suggestive of alveolar hemorrhage. Next Assessment recommendations; 1. Patient initially admitted for severe bilateral pneumonia leading to respiratory failure no successfully extubated several days ago. 2. Persistent anemia pancytopenia and severe thrombocytopenia. 3. Severe hemoptysis, likely from irregular hemorrhages due to severe thrombocytopenia. Continue current treatment. Patient currently getting platelet transfusion. Nose remains poor. A CODE STATUS needs were discussed with the family due to bone marrow failure. Consultation Date/Type/Reason Admit Date/Time Jan 31, 2017 at 14:31 Initial Consult Date Type of Consultation: Pulmonary Referring Provider: DNUIA BECKWITH 24 HR Interval Summary Free Text/Dictation Patient condition is slightly unstable in the sense of the patient still having persistent significant hemoptysis. He denies any shortness of breath, fever, chills, chest pain. General exam; elderly male, currently in no distress. Awake alert. Able to talk. Exam/Review of Systems Vital Signs Vitals Vital Signs Date Time Temp Pulse Resp B/P Pulse Ox O2 Delivery O2 Flow Rate FiO2 02/03/17 12:30 98.3 89 18 111/56 96 02/03/17 11:44 Nasal Cannula 2.0 Intake and Output 02/02/17 02/02/17 02/03/17 15:00 23:00 07:00 Intake Total 1200 ml 1320 ml 948 ml Output Total 850 ml 950 ml 1500 ml Balance 350 ml 370 ml -552 ml Exam HEENT exam; supple neck, no JVD. No lymphadenopathy. Midline trachea. No thyromegaly. Pharynx is clear. Chest examination KS: Minimal bilateral crackles. S1-S2 audible, no murmurs. Regular rhythm. Abdomen examination; soft, nondistended. No organomegaly. Nontender. Bowel sounds audible. Extremity exam is; no peripheral edema. [employer] examination; no focal deficit. Results Result Diagram: 02/03/17 0655 02/03/17 0655 Results 24 hrs Laboratory Tests Test 02/02/17 14:50 02/03/17 06:55 Anion Gap 14 15 Band Neutrophils % 1.0 1.0 Blast Cells % 2.0 H Blastocytes # 0.3 Blood Urea Nitrogen 28 H 31 H Calcium Level 7.6 L 8.0 L Carbon Dioxide Level 28 28 Chloride Level 102 101 Creatinine 1.24 1.32 H Glucose Level 134 91 # Hematocrit 21.6 L 23.0 L Hemoglobin 6.9 *L 7.7 L Lymphocytes # 3.0 H 3.8 H Lymphocytes % 22.0 27.0 Mean Corpuscular Hemoglobin 28.2 L 28.6 L Mean Corpuscular Hemoglobin Concent 31.9 L 33.5 Mean Corpuscular Volume 88.2 85.5 Mean Platelet Volume 9.5 # 9.3 Metamyelocytes # 0.1 0.1 Metamyelocytes % 1.0 H 1.0 H Monocytes # 6.3 H 5.7 H Monocytes % 47.0 H 41.0 H Myelocytes # 0.4 0.6 Myelocytes % 3.0 H 4.0 H Neutrophils # 3.2 2.8 Neutrophils % 24.0 L 20.0 L Nucleated Red Blood Cells % 7.0 H Platelet Count 6 #*L 18 #*L Platelet Estimate PLT APPEAR DECREASED Potassium Level 4.1 3.9 Red Blood Count 2.45 L 2.69 L Red Cell Distribution Width 17.1 H 17.2 H Sodium Level 140 140 White Blood Count 13.5 #H 13.9 H Eosinophils # 0.1 Eosinophils % 1.0 Promyelocytes # 0.1 Promyelocytes % 1.0 H Reactive Lymphocytes % 4.0 Medications Medications Current Medications Ondansetron HCl (Zofran Inj) 4 mg Q6H PRN IV NAUSEA AND/OR VOMITING Last administered on 02/01/17 10:50; Admin Dose 4 MG; Start 01/31/17 at 17:00 Acetaminophen (Tylenol Tab) 650 mg Q6H PRN PO PAIN LEVEL 1-3 OR FEVER; Start at 17:00 Acetaminophen (Tylenol Supp) 650 mg Q6H PRN SC PAIN LEVEL 1-3 OR FEVER; Start 01/31/17 at 17:00 Acetaminophen/ Hydrocodone Bitart ([place] (5/325)) 1 tab Q6H PRN PO MODERATE PAIN LEVEL 4-6 Last administered on 02/02/17 10:17; Admin Dose 1 TAB; Start at 17:00 Acetaminophen/ Hydrocodone Bitart ([place] (5/325)) 2 tab Q6H PRN PO SEVERE PAIN LEVEL 7-10; Start 01/31/17 at 17:00 Morphine Sulfate (morphine) 2 mg Q4H PRN IV SEVERE PAIN LEVEL 7-10; Start 01/31 at 17:00 Docusate Sodium (Colace) 100 mg Q12H PRN PO CONSTIPATION; Start 01/31/17 at 17: 00 Magnesium Hydroxide (Milk Of Mag) 30 ml DAILY PRN PO CONSTIPATION; Start at 17:00 Bisacodyl (Dulcolax Supp) 10 mg DAILY PRN [place] CONSTIPATION; Start 01/31/17 at 17 :00 Pantoprazole (Protonix Iv) 40 mg DAILY@06 IV Last administered on 02/03/17 05: 35; Admin Dose 40 MG; Start 02/01/17 at 06:00 Famotidine (Pepcid) 20 mg DAILY PO Last administered on 02/03/17 09:35; Admin Dose 20 MG; Start 02/01/17 at 09:00 Furosemide (Lasix) 20 mg DAILY@06 PO Last administered on 02/03/17 05:36; Admin Dose 20 MG; Start 02/01/17 at 06:00 Metoprolol Tartrate (Lopressor) 25 mg BID PO Last administered on 02/03/17 09: 36; Admin Dose 25 MG; Start 01/31/17 at 21:00 Potassium Chloride 8 meq 8 meq DAILY PO Last administered on 02/03/17 09:35; Admin Dose 8 MEQ; Start 02/01/17 at 09:00 Ceftriaxone Sodium 50 ml @ 100 mls/hr DAILY@20 IVPB Last administered on 21:19; Admin Dose 100 MLS/HR; Start 01/31/17 at 20:00 Azithromycin (Zithromax 500mg/ NS (Pmx)) 250 ml @ 250 mls/hr DAILY@18 IVPB Last administered on 02/02/17 18:40; Admin Dose 250 MLS/HR; Start 01/31/17 at 18:00 Albuterol/ Ipratropium (Duoneb) 3 ml Q4 PRN HHN dyspnea Last administered on 13:04; Admin Dose 3 ML; Start 01/31/17 at 17:00 Levothyroxine Sodium (Synthroid) 50 mcg DAILY@06 PO Last administered on t 05:35; Admin Dose 50 MCG; Start 02/02/17 at 06:00 Furosemide (Lasix) 20 mg ONCE ONCE IV ; Start 02/03/17 at 15:00; Stop 02/03/17 at 15:01 MYESHA OLIVER Feb 03, 2017 14:30
[2017-02-03] MEDS ORDERED: FUROSEMIDE 20 MG INJ IV ONE (15:00)
--- NOTE | 2017-02-03 15:04 | PN ---
DATE: 02/03/2017 HOSPITALIST PROGRESS NOTE SUBJECTIVE DATA: Having hemoptysis. Also complains of hematochezia. OBJECTIVE DATA: VITAL SIGNS: Temperature 98.3, pulse rate 89, respiratory rate 18, blood pressure 111/56, oxygen saturation 96% on low flow O2. GENERAL: This is a frail-looking thin [place] male lying in bed in no apparent distress. HEENT: Head normocephalic and atraumatic. Eyes: Anicteric sclerae. Conjunctivae clear. ENT: Nasal septum is midline. Oral mucosa is moist. NECK: Supple. No JVD noticed. RESPIRATORY: Bilaterally diminished breath sounds. No adventitious breath sounds. No use of accessory muscles of respiration. CARDIAC: Regular rate and rhythm. No obvious murmurs heard. ABDOMEN: Soft, nontender, and nondistended. Bowel sounds positive in all 4 quadrants. GENITOURINARY: Deferred. EXTREMITIES: No cyanosis, no clubbing, no edema. Peripheral pulses are palpable. NEUROLOGIC: The patient is awake, alert, and oriented. Cranial nerves are grossly intact. LABORATORY AND DIAGNOSTIC DATA: WBC 13.9, hemoglobin 7.7, hematocrit 23.0, platelet count 18. Sodium 140, potassium 3.9, chloride 101, carbon dioxide 28, anion gap 15, BUN 31, creatinine 1.32, glucose 91, calcium 8.0. ASSESSMENT AND PLAN: 1. Epistaxis. Status post evaluation by ENT. Most probably secondary to thrombocytopenia. Continue platelet correction. 2. Hemoptysis, most probably secondary to severe thrombocytopenia. Continue to monitor. Transfuse blood products as needed. 3. Severe thrombocytopenia. The patient being followed by hematology. Transfuse platelets as needed. 4. History of chronic myelogenous leukemia. Continue hematology recommendations. 5. Possible underlying healthcare-associated pneumonia versus others as indicated by asymmetrical airspace opacities found on chest x-ray. Continue antibiotics. Pulmonology following the patient. 6. Acute kidney injury, most probably secondary to hemodynamics versus others. Will avoid nephrotoxic medications. Continue to monitor. 7. Congestive heart failure. Compensated. Systolic function. Continue cardiac medications. 8. Cardiomyopathy with ejection fraction of 45% to 50% as per 2-D echocardiogram on 12/17/2016. Continue cardiac medications. 9. Pulmonary hypertension. PA pressure 42 mmHg as per 2-D echocardiogram on . Continue supplemental oxygen. 10. Symptomatic anemia, most probably secondary to acute blood loss. Continue to transfuse as needed. Hematology following. 11. Fluids, electrolytes, and nutrition. Low cholesterol diet. 12. Deep venous thrombosis prophylaxis. Chemical deep venous thrombosis prophylaxis contraindicated. 13. Gastrointestinal prophylaxis. Histamine 2 receptor blockers. PLAN: Transfuse blood products as needed. Await further recommendations from consultants. The case was discussed with Dr. Courtney. REJI COURTNEY MD, AM/RADHA Conf#: [id number] DID#: [id number] MTDD
[2017-02-03] MEDS: AZITHROMYCIN 500MG/NS (PMX) 250 ML IVPB SCH (17:39)
[2017-02-03] MEDS: CEFTRIAXONE 2 GM/50 ML (PMX) 50 ML IVPB SCH (21:20)
[2017-02-03 22:37] LABS: INR 1.18; PROTIME 15.1 Sec (12.2-14.2); PT RATIO 1.2
[2017-02-03 22:55] LABS: D-DIMER 8567.75 ng/ml (<460)
[2017-02-04] VITALS (11 sets, daily range): BP systolic 105–117; BP diastolic 55–57; PULSE 80–93; RESP 15–20
--- NOTE | 2017-02-04 01:46 | RADRPT ---
PROCEDURE: CT Chest without contrast. CLINICAL INDICATION: Dyspnea with pulmonary nodules. TECHNIQUE: CT scan of the chest without contrast was performed on a multidetector high-resolution CT scanner. Coronal and sagittal reformatted images were obtained from the axial source images. The total exam CTDI equals 5.85 mGy and the total exam DLP equals 623.78 mGy-cm. COMPARISON: Plain film chest dated today, earlier in the day. ABNORMAL RESULTS: MILD TO MODERATE PERICARDIAL EFFUSION AND MUCOUS IN THE RIGHT MAINSTEM BRONCHUS. FINDINGS: Hyperinflation of COPD and extensive changes of moderate to severe central lobular emphysema. Bilat eral scattered air space disease, greater in the left lower lobe and greatest at the bilateral lung bases, left greater than right. Findings compatible with bilateral patchy pneumonias. Recommend fol low-up to resolution. Multiple calcified nodules in the right upper lung, with associated spiculations and scar, perhaps r epresenting chronic granulomatous disease. focal pleural thickening at the right apex, otherwise non specific. Mucous versus soft tissue mass in the right mainstem bronchus, and consider direct visualization. The mediastinum is unremarkable without evidence for mass or lymphadenopathy. The vascular structur es of the mediastinum are normal in course and caliber. Aortic vascular calcifications and coronary artery calcifications are present. The heart size is normal, with a mild to moderate pericardial e ffusion. The axillary regions, subpectoral regions, and supraclavicular regions are all unremarkable. The [place] rrounding chest wall is unremarkable. Imaging obtained through the upper abdomen reveals partially visualized likely splenomegaly. 2 mm nonobstructing calculus in the right kidney. The surrounding o sseous structures are remarkable for degenerative spondylosis of the spine. No osteolytic or osteob lastic lesion is detected. IMPRESSION: 1. Bilateral patchy air space disease. 2. Recommend follow-up to resolution, as differential considerations include a carcinoma insitu. 3. Hyperinflation of COPD with moderate to severe central lobular emphysema. 4. Mucous versus soft tissue mass in the right mainstem bronchus, and consider direct visualization . 5. Mild to moderate pericardial effusion. 6. Partially visualized likely splenomegaly. ABNORMAL RESULTS: MILD TO MODERATE PERICARDIAL EFFUSION AND MUCOUS IN THE RIGHT MAINSTEM BRONCHUS. Cj Wilkes Physician Date Time Electronically viewed and signed by Cj Wilkes, Physician on 02/04/2017 01:46 RS/
--- NOTE | 2017-02-04 05:26 | CONS ---
DATE OF ADMISSION: 01/31/2017 DATE OF CONSULTATION: 02/03/2017 HEMATOLOGY CONSULTATION REASON FOR CONSULTATION: Thrombocytopenia with epistaxis. PHYSICIAN REQUESTING CONSULTATION: Dr. Gill Pereira Dear Dr. Pereira, Thank you very much for asking me to see this very interesting and pleasant patient in hematologic c onsultation. HISTORY OF PRESENT ILLNESS: As you know, I am familiar very familiar with Mr. Townsend who is a 71- year-old male who was just recently discharged from the hospital after a month long hospitalization from 12/23/2016 through 01/21/2017. The patient, at that time, had respiratory failure possibly rel ated to influenza induced pneumonia, pneumonitis. The patient has an underlying high grade myelodysplastic syndrome. This has been labeled as possibl e chronic myelomonocytic leukemia. Again, I emphasize this is not chronic myelogenous leukemia but chronic myelomonocytic leukemia which is a much more aggressive hematologic malignancy. The patient in the past has been treated with azacitidine. This was ineffective. The patient has m ore recently been receiving lenalidomide. In spite of this therapy, the patient has required repeated blood transfusions. The patient's last transfusion actually was on 01/28/2017. The patient was seen in my office on , and although still anemic and thrombocytopenic, he was feeling well. The patient was, however, admitted to [facility] the next day. The patient at abena t time was experiencing epistaxis. At the same time, the patient also was having some what appeared to be hemoptysis but actually was likely to be due to swallowing of the bleeding. On admission to the hospital, the patient had a white count of 18,000 with hemoglobin of 7, hematocr it 21.3, and platelet count of 4000. The patient did receive packed red blood cells as well as plat elets. On 02/01/2017, white count was 20,100, hemoglobin 6.6, hematocrit 19.7, platelet count 18,00 0. The patient has continued to have epistaxis. This, however, now seems to be under better control. The patient has received thus far 5 units of packed red blood cells and 3 units of platelet pheresis . The patient did receive 2 units of platelet pheresis today. PAST MEDICAL HISTORY: Most recent CBC indicates white count of 13,900 with 41% monocytes. There ar e also myelocytes, metamyelocytes, promyelocytes, and occasional blasts seen. Hemoglobin 7.7, hemat ocrit 23.0, and platelet count 18,000. On admission to the hospital on 01/31/2017, the patient had a protime of 14.8 seconds and PTT of 35.1 seconds. At the present time, sodium is 140, potassium 3. 9, creatinine 1.32, BUN is 31. The patient has not been complaining of any chest pain. He has had no actual cough or shortness of breath. The patient's past history does include the above-mentioned myelodysplastic syndrome. The patient a lso has had a history of a non-STEMI, type 2. There is an associated cardiomyopathy. The patient also has a history of some type of surgery done 20 years ago in [facility]. Apparently he had some type of GI bleeding, and this was surgery for ulcer. SOCIAL HISTORY: The patient is a smoker. He continues to smoke 1 pack of cigarettes every 3 to 4 d ays. He has done this for approximately the past 30 years. He has no known exposures to industrial toxins or ionizing radiation. PHYSICAL EXAMINATION: VITAL SIGNS: Temperature 98.6, pulse 100 per minute and regular, respirations 18, blood pressure 11 0/60, oxygen saturation is 96% on 5 liters. GENERAL: The patient is a well-developed, thin male who is chronically ill-appearing. SKIN: Pale. There are scattered ecchymoses. HEENT: There is dried blood on the patient's mouth and nares. Nasal oxygen in place. Pupils equal , round, react to light and accommodation. Sclerae nonicteric. Oral mucosa is pale. NECK: Supple, no jugular venous distention or thyroid enlargement. CHEST: Clear to auscultation and percussion. No rhonchi, wheezes, rales, or rubs. NODES: No palpable lymphadenopathy in any lymph node bearing area. HEART: Sinus tachycardia. No S3, S4, or murmurs. ABDOMEN: Flat and soft. The spleen is palpable approximately 4 cm below left costal margin in the anterior axillary line. EXTREMITIES: Good range of motion. No clubbing, edema, or cyanosis. NEUROLOGIC: Normal. As noted, this patient does have a history of high-grade myelodysplastic syndrome. It is most likel y best described as chronic myelomonocytic leukemia. The patient has not been responsive to therapy . He is becoming more dependent upon red blood cell and platelet transfusion. We will continue to transfuse platelets and red blood cells as needed. Unfortunately, this patient has become increasingly refractory to platelet transfusions. Although the patient has had some mild elevation of creatinine and BUN, I doubt that this is signifi cant enough to cause any qualitative platelet dysfunction. We will repeat protime, PTT, and fibrinogen in a.m. Also, obtain D-dimer. Continue to monitor CBC on a regular basis. Once again, thank you very much for the opportunity of participating in the medical care of this jud y interesting and pleasant patient. I will be happy to follow this patient with you and assist in h is hematologic evaluation and followup as necessary. Dictated By: OPAL MOSES MD SR/NTS Conf#: [id number] DID#: [id number] CC: GILL PEREIRA MD;*EndCC*
[2017-02-04] MEDS: LEVOTHYROXINE 50 MCG TAB PO SCH (05:28)
[2017-02-04] MEDS: FUROSEMIDE 20 MG TAB PO SCH (05:28)
[2017-02-04 07:44] LABS: ADD SCAN DIFF NO
[2017-02-04 07:53] LABS: ABNORMAL IP MESSAGE 1; EOSINOPHILS # 0.1 10^3/ul (0.0-0.5); EOSINOPHILS % 0.4 % (0.0-7.0); HEMATOCRIT 18.3 % (42.0-52.0); LYMPHOCYTES # 1.9 10^3/ul (0.8-2.9); LYMPHOCYTES % 14.6 % (15.0-51.0); MEAN CORPUSCULAR HEMOGLOBIN 28.4 pg (29.0-33.0); MEAN CORPUSCULAR HGB CONC 32.8 g/dl (32.0-37.0); MEAN CORPUSCULAR VOLUME 86.7 fl (82.0-101.0); MEAN PLATELET VOLUME 9.3 fl (7.4-10.4); MONOCYTES % 47.6 % (0.0-11.0); NEUTROPHIL # 3.9 10^3/ul (1.6-7.5); NEUTROPHILS % 30.8 % (39.0-77.0); NUCLEATED RED BLOOD CELLS # 0.3 10^3/ul (0.0-0.0); NUCLEATED RED BLOOD CELLS% 2.1 /100WBC (0.0-0.0); RED BLOOD COUNT 2.11 10^6/ul (4.70-6.10); RED CELL DISTRIBUTION WIDTH 17.2 % (11.5-14.5); WHITE BLOOD COUNT 12.7 10^3/ul (4.8-10.8)
[2017-02-04 08:09] LABS: MAGNESIUM 1.6 mg/dl (1.7-2.5); PHOSPHORUS 4.8 mg/dl (2.5-4.9)
[2017-02-04 08:15] LABS: POTASSIUM 3.9 mmol/L (3.5-5.1)
[2017-02-04 08:17] LABS: CREATININE 1.31 mg/dl (0.61-1.24)
[2017-02-04 08:18] LABS: CALCIUM 7.8 mg/dl (8.4-10.2)
[2017-02-04] MEDS: FAMOTIDINE 20 MG TAB PO SCH (08:19)
[2017-02-04] MEDS: POTASSIUM CHLORIDE (SR) 8 MEQ CAP PO SCH (08:20)
[2017-02-04] MEDS: METOPROLOL 25 MG TAB PO SCH ×2 (08:20→20:26)
[2017-02-04 08:30] LABS: PLATELET COUNT 21 10^3/UL (140-415)
--- NOTE | 2017-02-04 10:58 | PN ---
DATE: 02/04/2017 SUBJECTIVE: The patient remains stable this morning. No further hemoptysis overnight. PHYSICAL EXAMINATION: VITAL SIGNS: Temperature 98, pulse is 85, blood pressure 110/57, O2 saturation 96%, FIO2 of room ai r. NECK: Supple. No JVD or lymphadenopathy. CARDIAC: S1, S2, no added sounds or murmurs. CHEST: Diminished air entry bilaterally. ABDOMEN: Soft, nontender. No guarding or rebound. EXTREMITIES: No cyanosis, clubbing, edema. NEUROLOGIC: Grossly intact. CT chest showed hyperinflation consistent with severe central lobar emphysema, possible mucous plug in right main stem bronchus. Sputum AFB is pending at time of this dictation. IMPRESSION AND PLAN: 1. Significant hemoptysis, possibly secondary to thrombocytopenia; however, concerning for AFB. 2. Underlying severe chronic obstructive pulmonary disease with acute exacerbation. 3. History of chronic myeloid leukemia with pancytopenia. 4. Significant cachexia. PLAN: 1. Continue hematology/oncology recommendations. 2. Pending sputum studies. 3. Consider transfusion of packed red blood cells for hemoglobin of 6.0 this morning. 4. DVT and GI prophylaxis. Dictated By: SAMARA LOZANO/RADHA Conf#: [id number] DID#: [id number]
--- NOTE | 2017-02-04 12:04 | CONS ---
Date/Time of Note Date/Time of Note DATE: 02/04/17 TIME: 12:01 Assessment/Plan Assessment/Plan Additional Assessment/Plan 1. Acute kidney injury, likely secondary to prerenal azotemia causing ischemic acute tubular necrosis. 2. Rule out chronic kidney disease from other medical problems. 3. History of chronic myeloid leukemia, on chemotherapy. 4. Thrombocytopenia with a severe anemia with a platelet count of 4. 5. History of gastroesophageal reflux disease, history of chronic obstructive pulmonary disease. 6. History of recent last admission and had a very long complicated course including sepsis, acute hypoxemic respiratory failure, non-ST elevation myocardial infarctions and acute encephalopathy. Plan: Cr bumped to 1.32- s/p 1 L NS- Cr 1.31 today Bp stable Hb dropped to 6.0 today- PRBC as per hematology and PMD will continue to follow up Consultation Date/Type/Reason Admit Date/Time Jan 31, 2017 at 14:31 Initial Consult Date 01/31/2017 Type of Consultation: NEPHROLOGY Referring Provider: DUNIA BECKWITH Exam/Review of Systems Vital Signs Vitals Vital Signs Date Time Temp Pulse Resp B/P Pulse Ox O2 Delivery O2 Flow Rate FiO2 02/04/17 11:48 98.5 82 19 105/57 95 02/04/17 10:50 Nasal Cannula 4.0 Intake and Output 02/03/17 02/03/17 02/04/17 15:00 23:00 07:00 Intake Total 1230 ml 500 ml Output Total 2500 ml 1400 ml Balance -1270 ml -900 ml Exam GENERAL: Awake but intermittently lethargic. HEENT: No jaundice. No scleral icterus. NECK: Supple, no lymphadenopathy. LUNGS: Decreased breath sounds at both lung bases with bibasilar rales. HEART: S1, S2, tachycardia, no murmur. ABDOMEN: Soft, nontender, nondistended. Bowel sounds are present. EXTREMITIES: No clubbing, cyanosis, edema. NEUROLOGICAL: The patient is alert, awake but not oriented to place and person. Cranial nerves II through XII intact. Motor strength is fine. Reflexes are normal. PSYCHIATRIC: Appropriate affect and mood. SKIN: No rash. GENITOURINARY: The patient deferred examination. Results Result Diagram: 02/04/17 0655 02/04/17 0655 Results 24 hrs Laboratory Tests Test 02/03/17 21:35 02/04/17 06:55 Activated Partial Thromboplast Time 36.0 H D-Dimer 8567.75 H D-Dimer Comment Fibrinogen 324.0 # INR International Normalized Ratio 1.18 Prothrombin Time 15.1 H Prothrombin Time Ratio 1.2 Anion Gap 16 Basophils # 0.0 Basophils % 0.0 Blood Urea Nitrogen 32 H Calcium Level 7.8 L Carbon Dioxide Level 28 Chloride Level 100 Creatinine 1.31 H Eosinophils # 0.1 Eosinophils % 0.4 Glucose Level 102 Hematocrit 18.3 #L Hemoglobin 6.0 #*L Lymphocytes # 1.9 Lymphocytes % 14.6 L Magnesium Level 1.6 L Mean Corpuscular Hemoglobin 28.4 L Mean Corpuscular Hemoglobin Concent 32.8 Mean Corpuscular Volume 86.7 Mean Platelet Volume 9.3 Monocytes # 6.0 H Monocytes % 47.6 H Neutrophils # 3.9 Neutrophils % 30.8 L Nucleated Red Blood Cells # 0.3 H Nucleated Red Blood Cells % 2.1 H Phosphorus Level 4.8 Platelet Count 21 *L Potassium Level 3.9 Red Blood Count 2.11 #L Red Cell Distribution Width 17.2 H Sodium Level 140 White Blood Count 12.7 H Medications Medications Current Medications Ondansetron HCl (Zofran Inj) 4 mg Q6H PRN IV NAUSEA AND/OR VOMITING Last administered on 02/01/17 10:50; Admin Dose 4 MG; Start 01/31/17 at 17:00 Acetaminophen (Tylenol Tab) 650 mg Q6H PRN PO PAIN LEVEL 1-3 OR FEVER; Start at 17:00 Acetaminophen (Tylenol Supp) 650 mg Q6H PRN [place] PAIN LEVEL 1-3 OR FEVER; Start 01/31/17 at 17:00 Acetaminophen/ Hydrocodone Bitart ([place] (5/325)) 1 tab Q6H PRN PO MODERATE PAIN LEVEL 4-6 Last administered on 02/02/17 10:17; Admin Dose 1 TAB; Start at 17:00 Acetaminophen/ Hydrocodone Bitart ([place] (5/325)) 2 tab Q6H PRN PO SEVERE PAIN LEVEL 7-10; Start 01/31/17 at 17:00 Morphine Sulfate (morphine) 2 mg Q4H PRN IV SEVERE PAIN LEVEL 7-10; Start 01/31 at 17:00 Docusate Sodium (Colace) 100 mg Q12H PRN PO CONSTIPATION; Start 01/31/17 at 17: 00 Magnesium Hydroxide (Milk Of Mag) 30 ml DAILY PRN PO CONSTIPATION; Start at 17:00 Bisacodyl (Dulcolax Supp) 10 mg DAILY PRN [place] CONSTIPATION; Start 01/31/17 at 17 :00 Famotidine (Pepcid) 20 mg DAILY PO Last administered on 02/04/17 08:19; Admin Dose 20 MG; Start 02/01/17 at 09:00 Furosemide (Lasix) 20 mg DAILY@06 PO Last administered on 02/04/17 05:28; Admin Dose 20 MG; Start 02/01/17 at 06:00 Metoprolol Tartrate (Lopressor) 25 mg BID PO Last administered on 02/04/17 08: 20; Admin Dose 25 MG; Start 01/31/17 at 21:00 Potassium Chloride 8 meq 8 meq DAILY PO Last administered on 02/04/17 08:20; Admin Dose 8 MEQ; Start 02/01/17 at 09:00 Ceftriaxone Sodium 50 ml @ 100 mls/hr DAILY@20 IVPB Last administered on 21:20; Admin Dose 100 MLS/HR; Start 01/31/17 at 20:00 Azithromycin (Zithromax 500mg/ NS (Pmx)) 250 ml @ 250 mls/hr DAILY@18 IVPB Last administered on 02/03/17 17:39; Admin Dose 250 MLS/HR; Start 01/31/17 at 18:00 Albuterol/ Ipratropium (Duoneb) 3 ml Q4 PRN HHN dyspnea Last administered on 13:04; Admin Dose 3 ML; Start 01/31/17 at 17:00 Levothyroxine Sodium (Synthroid) 50 mcg DAILY@06 PO Last administered on 05:28; Admin Dose 50 MCG; Start 02/02/17 at 06:00 GILL PEREIRA MD Feb 04, 2017 12:04
[2017-02-04] MEDS ORDERED: MAGNESIUM SULFATE 2 GM/50 ML 50 ML IVPB ONE (12:30)
--- NOTE | 2017-02-04 13:16 | PN ---
Date/Time of Note Date/Time of Note DATE: 02/04/17 TIME: 13:13 Assessment/Plan VTE Prophylaxis VTE Prophylaxis Intervention: other (thrombocytopenia) Lines/Catheters [facility] Urinary Cath still in place: No Assessment/Plan Assessment/Plan Pt is feeling better but Hgb was down to 6.0. RBC are presently infusing. Plt 21 but note that he is refractory to plt transfusion so these should not be given unless there is clinical bleeding. Continue current plans. Subjective 24 Hr Interval Summary Free Text/Dictation Pt is feeling better. Ate all of his lunch. Exam/Review of Systems Vital Signs Vitals Vital Signs Date Time Temp Pulse Resp B/P Pulse Ox O2 Delivery O2 Flow Rate FiO2 02/04/17 12:00 81 02/04/17 11:48 98.5 19 105/57 95 02/04/17 10:50 Nasal Cannula 4.0 Intake and Output 02/03/17 02/03/17 02/04/17 15:00 23:00 07:00 Intake Total 1230 ml 500 ml Output Total 2500 ml 1400 ml Balance -1270 ml -900 ml Exam Constitutional: alert, oriented Head: normocephalic Eyes: other (pallor) ENMT: nl external ears & nose Neck: supple Respiratory: clear to auscultation Cardiovascular: regular rate and rhythm Gastrointestinal: soft Skin: nl turgor Lymph: nl lymph nodes Results Result Diagram: 02/04/17 0655 02/04/17 0655 Results 24 hrs Laboratory Tests Test 02/03/17 21:35 02/04/17 06:55 02/04/17 12:06 Activated Partial Thromboplast Time 36.0 H D-Dimer 8567.75 H D-Dimer Comment Fibrinogen 324.0 # INR International Normalized Ratio 1.18 Prothrombin Time 15.1 H Prothrombin Time Ratio 1.2 Anion Gap 16 Basophils # 0.0 Basophils % 0.0 Blood Urea Nitrogen 32 H Calcium Level 7.8 L Carbon Dioxide Level 28 Chloride Level 100 Creatinine 1.31 H Eosinophils # 0.1 Eosinophils % 0.4 Glucose Level 102 Hematocrit 18.3 #L Hemoglobin 6.0 #*L Lymphocytes # 1.9 Lymphocytes % 14.6 L Magnesium Level 1.6 L Mean Corpuscular Hemoglobin 28.4 L Mean Corpuscular Hemoglobin Concent 32.8 Mean Corpuscular Volume 86.7 Mean Platelet Volume 9.3 Monocytes # 6.0 H Monocytes % 47.6 H Neutrophils # 3.9 Neutrophils % 30.8 L Nucleated Red Blood Cells # 0.3 H Nucleated Red Blood Cells % 2.1 H Phosphorus Level 4.8 Platelet Count 21 *L Potassium Level 3.9 Red Blood Count 2.11 #L Red Cell Distribution Width 17.2 H Sodium Level 140 White Blood Count 12.7 H Lab Scanned Report REFERENCE LAB Medications Medications Current Medications Ondansetron HCl (Zofran Inj) 4 mg Q6H PRN IV NAUSEA AND/OR VOMITING Last administered on 02/01/17 10:50; Admin Dose 4 MG; Start 01/31/17 at 17:00 Acetaminophen (Tylenol Tab) 650 mg Q6H PRN PO PAIN LEVEL 1-3 OR FEVER; Start at 17:00 Acetaminophen (Tylenol Supp) 650 mg Q6H PRN [place] PAIN LEVEL 1-3 OR FEVER; Start 01/31/17 at 17:00 Acetaminophen/ Hydrocodone Bitart ([place] (5/325)) 1 tab Q6H PRN PO MODERATE PAIN LEVEL 4-6 Last administered on 02/02/17 10:17; Admin Dose 1 TAB; Start at 17:00 Acetaminophen/ Hydrocodone Bitart ([place] (5/325)) 2 tab Q6H PRN PO SEVERE PAIN LEVEL 7-10; Start 01/31/17 at 17:00 Morphine Sulfate (morphine) 2 mg Q4H PRN IV SEVERE PAIN LEVEL 7-10; Start 01/31 at 17:00 Docusate Sodium (Colace) 100 mg Q12H PRN PO CONSTIPATION; Start 01/31/17 at 17: 00 Magnesium Hydroxide (Milk Of Mag) 30 ml DAILY PRN PO CONSTIPATION; Start at 17:00 Bisacodyl (Dulcolax Supp) 10 mg DAILY PRN [place] CONSTIPATION; Start 01/31/17 at 17 :00 Famotidine (Pepcid) 20 mg DAILY PO Last administered on 02/04/17 08:19; Admin Dose 20 MG; Start 02/01/17 at 09:00 Furosemide (Lasix) 20 mg DAILY@06 PO Last administered on 02/04/17 05:28; Admin Dose 20 MG; Start 02/01/17 at 06:00 Metoprolol Tartrate (Lopressor) 25 mg BID PO Last administered on 02/04/17 08: 20; Admin Dose 25 MG; Start 01/31/17 at 21:00 Potassium Chloride 8 meq 8 meq DAILY PO Last administered on 02/04/17 08:20; Admin Dose 8 MEQ; Start 02/01/17 at 09:00 Ceftriaxone Sodium 50 ml @ 100 mls/hr DAILY@20 IVPB Last administered on 21:20; Admin Dose 100 MLS/HR; Start 01/31/17 at 20:00 Azithromycin (Zithromax 500mg/ NS (Pmx)) 250 ml @ 250 mls/hr DAILY@18 IVPB Last administered on 02/03/17 17:39; Admin Dose 250 MLS/HR; Start 01/31/17 at 18:00 Albuterol/ Ipratropium (Duoneb) 3 ml Q4 PRN HHN dyspnea Last administered on 13:04; Admin Dose 3 ML; Start 01/31/17 at 17:00 Levothyroxine Sodium 50 mcg 50 mcg DAILY@06 PO Last administered on 02/04/17 05:28; Admin Dose 50 MCG; Start 02/02/17 at 06:00 Magnesium Sulfate (Magnesium Sulfate 2 Gm/50 ml) 50 ml @ 25 mls/hr ONCE ONCE IVPB ; Start 02/04/17 at 12:30; Stop 02/04/17 at 14:29 GONZALO MCDONALD MD Feb 04, 2017 13:16
--- NOTE | 2017-02-04 15:05 | PN ---
Date/Time of Note Date/Time of Note DATE: 02/04/17 TIME: 15:03 Assessment/Plan VTE Prophylaxis VTE Prophylaxis Intervention: contraindicated Lines/Catheters [facility] Urinary Cath still in place: No Assessment/Plan Chief Complaint/Hosp Course 1. Epistaxis. Status post evaluation by ENT. Most probably secondary to thrombocytopenia. Continue platelet correction. 2. Hemoptysis, most probably secondary to severe thrombocytopenia. Continue to monitor. Transfuse blood products as needed. 3. Severe thrombocytopenia. The patient being followed by hematology. Transfuse platelets as needed. 4. History of chronic myelogenous leukemia. Continue hematology recommendations. 5. Possible underlying healthcare-associated pneumonia versus others as indicated by asymmetrical airspace opacities found on chest x-ray. Continue antibiotics. Pulmonology following the patient. 6. Acute kidney injury, most probably secondary to hemodynamics versus others. Will avoid nephrotoxic medications. Continue to monitor. 7. Congestive heart failure. Compensated. Systolic function. Continue cardiac medications. 8. Cardiomyopathy with ejection fraction of 45% to 50% as per 2-D echocardiogram on 12/17/2016. Continue cardiac medications. 9. Pulmonary hypertension. PA pressure 42 mmHg as per 2-D echocardiogram on . Continue supplemental oxygen. 10. Symptomatic anemia, most probably secondary to acute blood loss. Continue to transfuse as needed. Hematology following. 11. Fluids, electrolytes, and nutrition. Low cholesterol diet. 12. Deep venous thrombosis prophylaxis. Chemical deep venous thrombosis prophylaxis contraindicated. 13. Gastrointestinal prophylaxis. Histamine 2 receptor blockers. PLAN: Transfuse blood products as needed. Await further recommendations from consultants. The case was discussed with Dr. Hong. Problems: Subjective 24 Hr Interval Summary Free Text/Dictation Denies any epistaxis or hemoptysis. Complains of black stools. Getting blood transfusions. Exam/Review of Systems Vital Signs Vitals Vital Signs Date Time Temp Pulse Resp B/P Pulse Ox O2 Delivery O2 Flow Rate FiO2 02/04/17 12:00 81 02/04/17 11:48 98.5 19 105/57 95 02/04/17 10:50 Nasal Cannula 4.0 Intake and Output 02/03/17 02/03/17 02/04/17 15:00 23:00 07:00 Intake Total 1230 ml 500 ml Output Total 2500 ml 1400 ml Balance -1270 ml -900 ml Exam GENERAL: This is a frail-looking thin [place] male lying in bed in no apparent distress. HEENT: Head normocephalic and atraumatic. Eyes: Anicteric sclerae. Conjunctivae clear. ENT: Nasal septum is midline. Oral mucosa is moist. NECK: Supple. No JVD noticed. RESPIRATORY: Bilaterally diminished breath sounds. No adventitious breath sounds. Minimal use of accessory muscles of respiration. CARDIAC: Regular rate and rhythm. No obvious murmurs heard. ABDOMEN: Soft, nontender, and nondistended. Bowel sounds positive in all 4 quadrants. GENITOURINARY: Deferred. EXTREMITIES: No cyanosis, no clubbing, no edema. Peripheral pulses are palpable. NEUROLOGIC: The patient is awake, alert, and oriented. Cranial nerves are grossly intact. Results Result Diagram: 02/04/17 0655 02/04/17 0655 Results 24 hrs Laboratory Tests Test 02/03/17 21:35 02/04/17 06:55 02/04/17 12:06 Activated Partial Thromboplast Time 36.0 H D-Dimer 8567.75 H D-Dimer Comment Fibrinogen 324.0 # INR International Normalized Ratio 1.18 Prothrombin Time 15.1 H Prothrombin Time Ratio 1.2 Anion Gap 16 Basophils # 0.0 Basophils % 0.0 Blood Urea Nitrogen 32 H Calcium Level 7.8 L Carbon Dioxide Level 28 Chloride Level 100 Creatinine 1.31 H Eosinophils # 0.1 Eosinophils % 0.4 Glucose Level 102 Hematocrit 18.3 #L Hemoglobin 6.0 #*L Lymphocytes # 1.9 Lymphocytes % 14.6 L Magnesium Level 1.6 L Mean Corpuscular Hemoglobin 28.4 L Mean Corpuscular Hemoglobin Concent 32.8 Mean Corpuscular Volume 86.7 Mean Platelet Volume 9.3 Monocytes # 6.0 H Monocytes % 47.6 H Neutrophils # 3.9 Neutrophils % 30.8 L Nucleated Red Blood Cells # 0.3 H Nucleated Red Blood Cells % 2.1 H Phosphorus Level 4.8 Platelet Count 21 *L Potassium Level 3.9 Red Blood Count 2.11 #L Red Cell Distribution Width 17.2 H Sodium Level 140 White Blood Count 12.7 H Lab Scanned Report REFERENCE LAB Medications Medications Current Medications Ondansetron HCl (Zofran Inj) 4 mg Q6H PRN IV NAUSEA AND/OR VOMITING Last administered on 02/01/17t 10:50; Admin Dose 4 MG; Start 01/31/17 at 17:00 Acetaminophen (Tylenol Tab) 650 mg Q6H PRN PO PAIN LEVEL 1-3 OR FEVER; Start at 17:00 Acetaminophen (Tylenol Supp) 650 mg Q6H PRN [place] PAIN LEVEL 1-3 OR FEVER; Start 01/31/17 at 17:00 Acetaminophen/ Hydrocodone Bitart ([place] (5/325)) 1 tab Q6H PRN PO MODERATE PAIN LEVEL 4-6 Last administered on 02/02/17 10:17; Admin Dose 1 TAB; Start at 17:00 Acetaminophen/ Hydrocodone Bitart ([place] (5/325)) 2 tab Q6H PRN PO SEVERE PAIN LEVEL 7-10; Start 01/31/17 at 17:00 Morphine Sulfate (morphine) 2 mg Q4H PRN IV SEVERE PAIN LEVEL 7-10; Start 01/31 at 17:00 Docusate Sodium (Colace) 100 mg Q12H PRN PO CONSTIPATION; Start 01/31/17 at 17: 00 Magnesium Hydroxide (Milk Of Mag) 30 ml DAILY PRN PO CONSTIPATION; Start at 17:00 Bisacodyl (Dulcolax Supp) 10 mg DAILY PRN [place] CONSTIPATION; Start 01/31/17 at 17 :00 Famotidine (Pepcid) 20 mg DAILY PO Last administered on 02/04/17 08:19; Admin Dose 20 MG; Start 02/01/17 at 09:00 Furosemide (Lasix) 20 mg DAILY@06 PO Last administered on 02/04/17 05:28; Admin Dose 20 MG; Start 02/01/17 at 06:00 Metoprolol Tartrate (Lopressor) 25 mg BID PO Last administered on 02/04/17 08: 20; Admin Dose 25 MG; Start 01/31/17 at 21:00 Potassium Chloride 8 meq 8 meq DAILY PO Last administered on 02/04/17 08:20; Admin Dose 8 MEQ; Start 02/01/17 at 09:00 Ceftriaxone Sodium 50 ml @ 100 mls/hr DAILY@20 IVPB Last administered on 21:20; Admin Dose 100 MLS/HR; Start 01/31/17 at 20:00 Azithromycin (Zithromax 500mg/ NS (Pmx)) 250 ml @ 250 mls/hr DAILY@18 IVPB Last administered on 02/03/17 17:39; Admin Dose 250 MLS/HR; Start 01/31/17 at 18:00 Albuterol/ Ipratropium (Duoneb) 3 ml Q4 PRN HHN dyspnea Last administered on 13:04; Admin Dose 3 ML; Start 01/31/17 at 17:00 Levothyroxine Sodium (Synthroid) 50 mcg DAILY@06 PO Last administered on 05:28; Admin Dose 50 MCG; Start 02/02/17 at 06:00 REJI PEREZ NP Feb 04, 2017 15:05
[2017-02-04] MEDS: AZITHROMYCIN 500MG/NS (PMX) 250 ML IVPB SCH (17:37)
[2017-02-04] MEDS: CEFTRIAXONE 2 GM/50 ML (PMX) 50 ML IVPB SCH (20:24)
[2017-02-05] VITALS (13 sets, daily range): BP systolic 104–132; BP diastolic 55–82; PULSE 72–96; RESP 15–22
[2017-02-05] MEDS: LEVOTHYROXINE 50 MCG TAB PO SCH (05:58)
[2017-02-05] MEDS: FUROSEMIDE 20 MG TAB PO SCH (05:58)
--- NOTE | 2017-02-05 07:17 | PN ---
Date/Time of Note Date/Time of Note DATE: 02/05/17 TIME: 07:16 Assessment/Plan VTE Prophylaxis VTE Prophylaxis Intervention: SCD's Lines/Catheters IV [facility] Urinary Cath still in place: No Assessment/Plan Chief Complaint/Hosp Course 1. Epistaxis. Status post evaluation by ENT. Most probably secondary to thrombocytopenia. Continue platelet correction. 2. Hemoptysis, most probably secondary to severe thrombocytopenia. Continue to monitor. Transfuse blood products as needed. 3. Severe thrombocytopenia. The patient being followed by hematology. Transfuse platelets as needed. 4. History of chronic myelogenous leukemia. Continue hematology recommendations. 5. Possible underlying healthcare-associated pneumonia versus others as indicated by asymmetrical airspace opacities found on chest x-ray. Continue antibiotics. Pulmonology following the patient. 6. Acute kidney injury, most probably secondary to hemodynamics versus others. Will avoid nephrotoxic medications. Continue to monitor. 7. Congestive heart failure. Compensated. Systolic function. Continue cardiac medications. 8. Cardiomyopathy with ejection fraction of 45% to 50% as per 2-D echocardiogram on 12/17/2016. Continue cardiac medications. 9. Pulmonary hypertension. PA pressure 42 mmHg as per 2-D echocardiogram on . Continue supplemental oxygen. 10. Symptomatic anemia, most probably secondary to acute blood loss. Continue to transfuse as needed. Hematology following. 11. Fluids, electrolytes, and nutrition. Low cholesterol diet. 12. Deep venous thrombosis prophylaxis. Chemical deep venous thrombosis prophylaxis contraindicated. 13. Gastrointestinal prophylaxis. Histamine 2 receptor blockers. PLAN: Transfuse blood products as needed. Await further recommendations from consultants. The case was discussed with Dr. Hong. Problems: Subjective 24 Hr Interval Summary Free Text/Dictation No hemoptysis or epistaxis. Exam/Review of Systems Vital Signs Vitals Vital Signs Date Time Temp Pulse Resp B/P Pulse Ox O2 Delivery O2 Flow Rate FiO2 02/05/17 04:33 78 02/05/17 04:00 98.4 15 112/62 93 02/05/17 03:55 4.0 02/05/17 00:00 Nasal Cannula Intake and Output 02/04/17 02/04/17 02/05/17 15:00 23:00 07:00 Intake Total 1480 ml 430 ml Output Total 500 ml 500 ml Balance 980 ml -70 ml Exam GENERAL: This is a frail-looking thin [place] male lying in bed in no apparent distress. HEENT: Head normocephalic and atraumatic. Eyes: Anicteric sclerae. Conjunctivae clear. ENT: Nasal septum is midline. Oral mucosa is moist. NECK: Supple. No JVD noticed. RESPIRATORY: Bilaterally diminished breath sounds. No adventitious breath sounds. Minimal use of accessory muscles of respiration. CARDIAC: Regular rate and rhythm. No obvious murmurs heard. ABDOMEN: Soft, nontender, and nondistended. Bowel sounds positive in all 4 quadrants. GENITOURINARY: Deferred. EXTREMITIES: No cyanosis, no clubbing, no edema. Peripheral pulses are palpable. NEUROLOGIC: The patient is awake, alert, and oriented. Cranial nerves are grossly intact. Results Result Diagram: 02/04/17 0602/04/17 0655 Results 24 hrs Laboratory Tests Test 02/04/17 12:06 Lab Scanned Report REFERENCE LAB Medications Medications Current Medications Ondansetron HCl (Zofran Inj) 4 mg Q6H PRN IV NAUSEA AND/OR VOMITING Last administered on 02/01/17 10:50; Admin Dose 4 MG; Start 01/31/17 at 17:00 Acetaminophen (Tylenol Tab) 650 mg Q6H PRN PO PAIN LEVEL 1-3 OR FEVER; Start at 17:00 Acetaminophen (Tylenol Supp) 650 mg Q6H PRN [place] PAIN LEVEL 1-3 OR FEVER; Start 01/31/17 at 17:00 Acetaminophen/ Hydrocodone Bitart ([place] (5/325)) 1 tab Q6H PRN PO MODERATE PAIN LEVEL 4-6 Last administered on 02/02/17 10:17; Admin Dose 1 TAB; Start at 17:00 Acetaminophen/ Hydrocodone Bitart ([place] (5/325)) 2 tab Q6H PRN PO SEVERE PAIN LEVEL 7-10; Start 01/31/17 at 17:00 Morphine Sulfate (morphine) 2 mg Q4H PRN IV SEVERE PAIN LEVEL 7-10; Start 01/31 at 17:00 Docusate Sodium (Colace) 100 mg Q12H PRN PO CONSTIPATION Last administered on 05:58; Admin Dose 100 MG; Start 01/31/17 at 17:00 Magnesium Hydroxide (Milk Of Mag) 30 ml DAILY PRN PO CONSTIPATION; Start at 17:00 Bisacodyl (Dulcolax Supp) 10 mg DAILY PRN [place] CONSTIPATION; Start 01/31/17 at 17 :00 Famotidine (Pepcid) 20 mg DAILY PO Last administered on 02/04/17 08:19; Admin Dose 20 MG; Start 02/01/17 at 09:00 Furosemide (Lasix) 20 mg DAILY@06 PO Last administered on 02/05/17 05:58; Admin Dose 20 MG; Start 02/01/17 at 06:00 Metoprolol Tartrate (Lopressor) 25 mg BID PO Last administered on 02/04/17 20: 26; Admin Dose 25 MG; Start 01/31/17 at 21:00 Potassium Chloride 8 meq 8 meq DAILY PO Last administered on 02/04/17 08:20; Admin Dose 8 MEQ; Start 02/01/17 at 09:00 Ceftriaxone Sodium 50 ml @ 100 mls/hr DAILY@20 IVPB Last administered on 20:24; Admin Dose 100 MLS/HR; Start 01/31/17 at 20:00 Azithromycin (Zithromax 500mg/ NS (Pmx)) 250 ml @ 250 mls/hr DAILY@18 IVPB Last administered on 02/04/17 17:37; Admin Dose 250 MLS/HR; Start 01/31/17 at 18:00 Albuterol/ Ipratropium (Duoneb) 3 ml Q4 PRN HHN dyspnea Last administered on 13:04; Admin Dose 3 ML; Start 01/31/17 at 17:00 Levothyroxine Sodium (Synthroid) 50 mcg DAILY@06 PO Last administered on 05:58; Admin Dose 50 MCG; Start 02/02/17 at 06:00 REJI PEREZ NP Feb 05, 2017 07:17
[2017-02-05] MEDS: FAMOTIDINE 20 MG TAB PO SCH (08:18)
[2017-02-05] MEDS: POTASSIUM CHLORIDE (SR) 8 MEQ CAP PO SCH (08:19)
[2017-02-05] MEDS: METOPROLOL 25 MG TAB PO SCH ×2 (08:25→20:38)
--- NOTE | 2017-02-05 08:41 | PN ---
DATE: 02/05/2017 HEMATOLOGY PROGRESS NOTE SUBJECTIVE: Mr. Townsend seems to be doing better. He has not had any further epistaxis. He is no t complaining of chest pain. OBJECTIVE VITAL SIGNS: Temperature 98.4, pulse 92 per minute and regular, respirations 15, blood pressure 112 /62, oxygen, pulse oximetry 93% on 4 L by nasal cannula. SKIN: Pale with scattered ecchymoses and purpura. HEENT: Normocephalic. No evidence of trauma. Pupils equal, round, react to light and accommodatio n. Sclerae are not icteric. Oral mucosa is pale. There is dried blood on the lips. Nasal oxygen in place. NECK: Supple, no jugular venous distention or thyroid enlargement. CHEST: Clear to auscultation and percussion. No rhonchi, wheezes, rales, or rubs. ABDOMEN: Soft. No masses, no ascites. The spleen is palpable, approximately 4 cm below the left c ostal margin in the anterior axillary line. EXTREMITIES: No clubbing, edema, or cyanosis. No palpable cords or Homans sign. NEUROLOGIC: Normal. LABORATORY DATA: CBC from this morning is pending. On February 04, white count was 12,700, hemoglob in had dropped to 6, hematocrit 18.3, and platelet count 21,000. The patient has since received 2 u nits of packed red blood cells. ASSESSMENT: 1. Epistaxis due to severe thrombocytopenia. 2. Myelodysplastic syndrome with anemia and thrombocytopenia. Only option is to transfuse both red blood cells and platelets as appropriate. Dictated By: OPAL MOSES MD, SR/RADHA Conf#: [id number] DID#: [id number]
--- NOTE | 2017-02-05 10:26 | CONS ---
Date/Time of Note Date/Time of Note DATE: 02/05/17 TIME: 10:24 Assessment/Plan Assessment/Plan Additional Assessment/Plan 1. Acute kidney injury, likely secondary to prerenal azotemia causing ischemic acute tubular necrosis. 2. Rule out chronic kidney disease from other medical problems. 3. History of chronic myeloid leukemia, on chemotherapy. 4. Thrombocytopenia with a severe anemia with a platelet count of 4. 5. History of gastroesophageal reflux disease, history of chronic obstructive pulmonary disease. 6. History of recent last admission and had a very long complicated course including sepsis, acute hypoxemic respiratory failure, non-ST elevation myocardial infarctions and acute encephalopathy. Plan: Cr around 1.3 Bp stable will continue to follow up Consultation Date/Type/Reason Admit Date/Time Jan 31, 2017 at 14:31 Initial Consult Date 01/31/2017 Type of Consultation: NEPHROLOGY Referring Provider: DUNIA BECKWITH 24 HR Interval Summary Free Text/Dictation no acute events, no labs today, H & O following, poor prognosis Exam/Review of Systems Vital Signs Vitals Vital Signs Date Time Temp Pulse Resp B/P Pulse Ox O2 Delivery O2 Flow Rate FiO2 02/05/17 08:25 97.5 84 22 126/61 6 Nasal Cannula 02/05/17 03:55 4.0 Intake and Output 02/04/17 02/04/17 02/05/17 14:59 22:59 06:59 Intake Total 1480 ml 430 ml Output Total 500 ml 500 ml Balance 980 ml -70 ml Exam GENERAL: Awake but intermittently lethargic. HEENT: No jaundice. No scleral icterus. NECK: Supple, no lymphadenopathy. LUNGS: Decreased breath sounds at both lung bases with bibasilar rales. HEART: S1, S2, tachycardia, no murmur. ABDOMEN: Soft, nontender, nondistended. Bowel sounds are present. EXTREMITIES: No clubbing, cyanosis, edema. NEUROLOGICAL: The patient is alert, awake but not oriented to place and person. Cranial nerves II through XII intact. Motor strength is fine. Reflexes are normal. Results Result Diagram: 02/04/1765402/04/17654 Results 24 hrs Laboratory Tests Test 02/04/17 12:06 Lab Scanned Report REFERENCE LAB Medications Medications Current Medications Ondansetron HCl (Zofran Inj) 4 mg Q6H PRN IV NAUSEA AND/OR VOMITING Last administered on 02/01/17 10:50; Admin Dose 4 MG; Start 01/31/17 at 17:00 Acetaminophen (Tylenol Tab) 650 mg Q6H PRN PO PAIN LEVEL 1-3 OR FEVER; Start at 17:00 Acetaminophen (Tylenol Supp) 650 mg Q6H PRN [place] PAIN LEVEL 1-3 OR FEVER; Start 01/31/17 at 17:00 Acetaminophen/ Hydrocodone Bitart ([place] (5/325)) 1 tab Q6H PRN PO MODERATE PAIN LEVEL 4-6 Last administered on 02/02/17 10:17; Admin Dose 1 TAB; Start at 17:00 Acetaminophen/ Hydrocodone Bitart ([place] (5/325)) 2 tab Q6H PRN PO SEVERE PAIN LEVEL 7-10; Start 01/31/17 at 17:00 Morphine Sulfate (morphine) 2 mg Q4H PRN IV SEVERE PAIN LEVEL 7-10; Start 01/31 at 17:00 Docusate Sodium (Colace) 100 mg Q12H PRN PO CONSTIPATION Last administered on 05:58; Admin Dose 100 MG; Start 01/31/17 at 17:00 Magnesium Hydroxide (Milk Of Mag) 30 ml DAILY PRN PO CONSTIPATION; Start at 17:00 Bisacodyl (Dulcolax Supp) 10 mg DAILY PRN [place] CONSTIPATION; Start 01/31/17 at 17 :00 Famotidine (Pepcid) 20 mg DAILY PO Last administered on 02/05/17 08:18; Admin Dose 20 MG; Start 02/01/17 at 09:00 Furosemide (Lasix) 20 mg DAILY@06 PO Last administered on 02/05/17 05:58; Admin Dose 20 MG; Start 02/01/17 at 06:00 Metoprolol Tartrate (Lopressor) 25 mg BID PO Last administered on 02/05/17 08: 25; Admin Dose 25 MG; Start 01/31/17 at 21:00 Potassium Chloride 8 meq 8 meq DAILY PO Last administered on 02/05/17 08:19; Admin Dose 8 MEQ; Start 02/01/17 at 09:00 Ceftriaxone Sodium 50 ml @ 100 mls/hr DAILY@20 IVPB Last administered on 20:24; Admin Dose 100 MLS/HR; Start 01/31/17 at 20:00 Azithromycin (Zithromax 500mg/ NS (Pmx)) 250 ml @ 250 mls/hr DAILY@18 IVPB Last administered on 02/04/17 17:37; Admin Dose 250 MLS/HR; Start 01/31/17 at 18:00 Albuterol/ Ipratropium (Duoneb) 3 ml Q4 PRN HHN dyspnea Last administered on 13:04; Admin Dose 3 ML; Start 01/31/17 at 17:00 Levothyroxine Sodium (Synthroid) 50 mcg DAILY@06 PO Last administered on 05:58; Admin Dose 50 MCG; Start 02/02/17 at 06:00 GILL PEREIRA MD Feb 05, 2017 10:26
[2017-02-05 11:01] LABS: ADD SCAN DIFF NO
[2017-02-05 11:05] LABS: ABNORMAL IP MESSAGE 1; EOSINOPHILS # 0.1 10^3/ul (0.0-0.5); HEMATOCRIT 24.3 % (42.0-52.0); LYMPHOCYTES # 1.7 10^3/ul (0.8-2.9); LYMPHOCYTES % 15.8 % (15.0-51.0); MEAN CORPUSCULAR HEMOGLOBIN 28.7 pg (29.0-33.0); MEAN CORPUSCULAR HGB CONC 32.9 g/dl (32.0-37.0); MEAN CORPUSCULAR VOLUME 87.1 fl (82.0-101.0); MONOCYTE # 4.9 10^3/ul (0.3-0.9); MONOCYTES % 45.2 % (0.0-11.0); NEUTROPHIL # 3.4 10^3/ul (1.6-7.5); NEUTROPHILS % 31.2 % (39.0-77.0); NUCLEATED RED BLOOD CELLS # 0.2 10^3/ul (0.0-0.0); NUCLEATED RED BLOOD CELLS% 1.8 /100WBC (0.0-0.0); RED BLOOD COUNT 2.79 10^6/ul (4.70-6.10); RED CELL DISTRIBUTION WIDTH 15.8 % (11.5-14.5); WHITE BLOOD COUNT 10.8 10^3/ul (4.8-10.8)
[2017-02-05 11:11] LABS: PLATELET COUNT 12 10^3/UL (140-415)
--- NOTE | 2017-02-05 11:13 | PN ---
DATE: The patient is relatively stable this morning. No new events. PHYSICAL EXAMINATION: VITAL SIGNS: Temperature 97, pulse 84, blood pressure 126/61, O2 saturation 96% on room air. NECK: Supple. No JVD or lymphadenopathy. CARDIAC: S1, S2, no added sounds or murmurs. CHEST: Diminished air entry bilaterally. ABDOMEN: Soft, nontender. No guarding or rebound. EXTREMITIES: No cyanosis, clubbing, edema. NEUROLOGIC: Grossly intact. No focal deficits. LABORATORY DATA: CBC is pending at time of this note. BUN 32, creatinine 1.31. IMPRESSION: 1. History of chronic myeloid leukemia, on chemotherapy with recent pancytopenia. 2. Epistaxis and hemoptysis, rule out tuberculosis unlikely. 3. Acute kidney injury seems to be improving. PLAN: 1. Continue hematology/oncology recommendations. 2. Pending AFBs. Once 3 AFBs are negative, consider discharge home if okay with hematology/oncolog y. 3. Continue DVT and GI prophylaxis. Dictated By: SAMARA LOZANO/RADHA Conf#: [id number] DID#: [id number]
[2017-02-05 11:27] LABS: POTASSIUM 3.8 mmol/L (3.5-5.1)
[2017-02-05 11:28] LABS: PHOSPHORUS 4.6 mg/dl (2.5-4.9)
[2017-02-05 11:30] LABS: CALCIUM 8.1 mg/dl (8.4-10.2); CREATININE 1.25 mg/dl (0.61-1.24)
[2017-02-05] MEDS: AZITHROMYCIN 500MG/NS (PMX) 250 ML IVPB SCH (18:32)
[2017-02-05] MEDS: CEFTRIAXONE 2 GM/50 ML (PMX) 50 ML IVPB SCH (20:38)
[2017-02-06] VITALS (11 sets, daily range): BP systolic 104–145; BP diastolic 59–74; PULSE 71–95; RESP 18–19
[2017-02-06] MEDS: LEVOTHYROXINE 50 MCG TAB PO SCH (05:49)
[2017-02-06] MEDS: FUROSEMIDE 20 MG TAB PO SCH (05:49)
[2017-02-06 07:26] LABS: ADD SCAN DIFF NO
[2017-02-06 07:33] LABS: ABNORMAL IP MESSAGE 1; HEMATOCRIT 24.4 % (42.0-52.0); HEMOGLOBIN 8.1 g/dl (14.0-18.0); MEAN CORPUSCULAR HEMOGLOBIN 29.1 pg (29.0-33.0); MEAN CORPUSCULAR HGB CONC 33.2 g/dl (32.0-37.0); MEAN CORPUSCULAR VOLUME 87.8 fl (82.0-101.0); MEAN PLATELET VOLUME 10.4 fl (7.4-10.4); RED BLOOD COUNT 2.78 10^6/ul (4.70-6.10)
[2017-02-06 07:42] LABS: POTASSIUM 4.2 mmol/L (3.5-5.1)
[2017-02-06 07:45] LABS: CREATININE 1.29 mg/dl (0.61-1.24)
[2017-02-06 07:46] LABS: CALCIUM 8.2 mg/dl (8.4-10.2); MAGNESIUM 1.8 mg/dl (1.7-2.5); PHOSPHORUS 4.7 mg/dl (2.5-4.9)
[2017-02-06 08:13] LABS: PLATELET COUNT 11 10^3/UL (140-415)
[2017-02-06] MEDS: FAMOTIDINE 20 MG TAB PO SCH (09:35)
[2017-02-06] MEDS: POTASSIUM CHLORIDE (SR) 8 MEQ CAP PO SCH (09:35)
[2017-02-06] MEDS: METOPROLOL 25 MG TAB PO SCH ×2 (09:36→22:04)
[2017-02-06 10:46] LABS: BASOPHIL # 0.1 10^3/ul (0.0-0.1); LYMPHOCYTES # 2.2 10^3/ul (0.8-2.9); MONOCYTE # 3.9 10^3/ul (0.3-0.9); MYELOCYTES # 0.2; NEUTROPHIL # 3.9 10^3/ul (1.6-7.5); PLATELET ESTIMATE PLT APPEAR DECREASED
--- NOTE | 2017-02-06 13:18 | PN ---
Date/Time of Note Date/Time of Note DATE: 02/06/17 TIME: 13:14 Assessment/Plan VTE Prophylaxis VTE Prophylaxis Intervention: ambulation Lines/Catheters [facility] Saline Lock Urinary Cath still in place: No Assessment/Plan Assessment/Plan Stable pancytopenia. No epistaxis at present. Anemia is stable with Hct ~24 yesterday and today. Unfortunately the MDS is not going to get better. Transfuse as needed. If discharged, he should f/u in the office with Dr. Pryor. Subjective 24 Hr Interval Summary Free Text/Dictation Pt is alert and comfortable. Eating lunch. Exam/Review of Systems Vital Signs Vitals Vital Signs Date Time Temp Pulse Resp B/P Pulse Ox O2 Delivery O2 Flow Rate FiO2 02/06/17 12:27 84 02/06/17 12:00 97.6 19 145/74 90 02/06/17 03:33 6.0 02/05/17 20:40 Nasal Cannula Intake and Output 02/05/17 02/05/17 02/06/17 15:00 23:00 07:00 Intake Total 1190 ml 120 ml Output Total 400 ml Balance 1190 ml -280 ml Exam Constitutional: alert Head: normocephalic Eyes: other (pallor) Neck: supple Respiratory: clear to auscultation Cardiovascular: regular rate and rhythm Gastrointestinal: soft Results Result Diagram: 02/06/17 0644 02/06/17 0644 Results 24 hrs Laboratory Tests Test 02/06/17 06:44 White Blood Count 11.0 H Red Blood Count 2.78 L Hemoglobin 8.1 L Hematocrit 24.4 L Mean Corpuscular Volume 87.8 Mean Corpuscular Hemoglobin 29.1 Mean Corpuscular Hemoglobin Concent 33.2 Red Cell Distribution Width 16.0 H Platelet Count 11 *L Mean Platelet Volume 10.4 Neutrophils % 35.0 L Band Neutrophils % 4.0 Lymphocytes % 20.0 Monocytes % 35.0 H Basophils % 1.0 Metamyelocytes % 3.0 H Myelocytes % 2.0 H Neutrophils # 3.9 Lymphocytes # 2.2 Monocytes # 3.9 H Basophils # 0.1 Metamyelocytes # 0.3 Myelocytes # 0.2 Platelet Estimate PLT APPEAR DECREASED Sodium Level 140 Potassium Level 4.2 Chloride Level 100 Carbon Dioxide Level 29 Anion Gap 15 Blood Urea Nitrogen 29 H Creatinine 1.29 H Glucose Level 96 Calcium Level 8.2 L Phosphorus Level 4.7 Magnesium Level 1.8 Medications Medications Current Medications Ondansetron HCl (Zofran Inj) 4 mg Q6H PRN IV NAUSEA AND/OR VOMITING Last administered on 02/01/17 10:50; Admin Dose 4 MG; Start 01/31/17 at 17:00 Acetaminophen (Tylenol Tab) 650 mg Q6H PRN PO PAIN LEVEL 1-3 OR FEVER; Start at 17:00 Acetaminophen (Tylenol Supp) 650 mg Q6H PRN [place] PAIN LEVEL 1-3 OR FEVER; Start 01/31/17 at 17:00 Acetaminophen/ Hydrocodone Bitart ([place] (5/325)) 1 tab Q6H PRN PO MODERATE PAIN LEVEL 4-6 Last administered on 02/02/17 10:17; Admin Dose 1 TAB; Start at 17:00 Acetaminophen/ Hydrocodone Bitart ([place] (5/325)) 2 tab Q6H PRN PO SEVERE PAIN LEVEL 7-10; Start 01/31/17 at 17:00 Morphine Sulfate (morphine) 2 mg Q4H PRN IV SEVERE PAIN LEVEL 7-10; Start 01/31 at 17:00 Docusate Sodium (Colace) 100 mg Q12H PRN PO CONSTIPATION Last administered on 05:58; Admin Dose 100 MG; Start 01/31/17 at 17:00 Magnesium Hydroxide (Milk Of Mag) 30 ml DAILY PRN PO CONSTIPATION; Start at 17:00 Bisacodyl (Dulcolax Supp) 10 mg DAILY PRN [place] CONSTIPATION; Start 01/31/17 at 17 :00 Famotidine (Pepcid) 20 mg DAILY PO Last administered on 02/06/17 09:35; Admin Dose 20 MG; Start 02/01/17 at 09:00 Furosemide (Lasix) 20 mg DAILY@06 PO Last administered on 02/06/17 05:49; Admin Dose 20 MG; Start 02/01/17 at 06:00 Metoprolol Tartrate (Lopressor) 25 mg BID PO Last administered on 02/06/17 09: 36; Admin Dose 25 MG; Start 01/31/17 at 21:00 Potassium Chloride 8 meq 8 meq DAILY PO Last administered on 02/06/17 09:35; Admin Dose 8 MEQ; Start 02/01/17 at 09:00 Ceftriaxone Sodium 50 ml @ 100 mls/hr DAILY@20 IVPB Last administered on 20:38; Admin Dose 100 MLS/HR; Start 01/31/17 at 20:00 Azithromycin (Zithromax 500mg/ NS (Pmx)) 250 ml @ 250 mls/hr DAILY@18 IVPB Last administered on 02/05/17 18:32; Admin Dose 250 MLS/HR; Start 01/31/17 at 18:00 Albuterol/ Ipratropium (Duoneb) 3 ml Q4 PRN HHN dyspnea Last administered on 13:04; Admin Dose 3 ML; Start 01/31/17 at 17:00 Levothyroxine Sodium (Synthroid) 50 mcg DAILY@06 PO Last administered on 05:49; Admin Dose 50 MCG; Start 02/02/17 at 06:00 GONZALO MCDONALD MD Feb 06, 2017 13:18
--- NOTE | 2017-02-06 14:12 | CONS ---
Date/Time of Note Date/Time of Note DATE: 02/06/17 TIME: 14:08 Assessment/Plan Assessment/Plan Additional Assessment/Plan Assessment recommendations; next 1. Patient initially admitted for severe bilateral pneumonia with respiratory failure no successfully extubated several days ago. 2. History of CML. 3. History of persistent severe thrombocytopenia. 4. Hemoptysis. With interval improvement. Likely from L without hemorrhage. 5. Currently no evidence of any pulmonary tuberculosis. 6. Mild renal insufficiency. Continue current treatment. Platelet transfusion per hematology recommendation. Consultation Date/Type/Reason Admit Date/Time Jan 31, 2017 at 14:31 Type of Consultation: Pulmonary Referring Provider: DUNIA BECKWITH 24 HR Interval Summary Free Text/Dictation Patient condition is stable. Denies any further hemoptysis. Denies any shortness of breath, wheezing, chest pain. Any fever or chills. General exam; elderly male, currently in no distress awake and alert. Exam/Review of Systems Vital Signs Vitals Vital Signs Date Time Temp Pulse Resp B/P Pulse Ox O2 Delivery O2 Flow Rate FiO2 02/06/17 12:27 84 02/06/17 12:00 97.6 19 145/74 90 02/06/17 09:45 Nasal Cannula 5.0 Intake and Output 02/05/17 02/05/17 02/06/17 15:00 23:00 07:00 Intake Total 1190 ml 120 ml Output Total 400 ml Balance 1190 ml -280 ml Exam HEENT examination; supple neck, no JVD. No lymphadenopathy. Midline trachea. No thyromegaly. No neck masses. Patient is edentulous. Chest examination; clear to auscultation bilaterally. S1-S2 audible, no murmurs. Regular rhythm. Abdomen examination; soft, nondistended. No organomegaly. Bowel sounds audible. Extremity examination; no peripheral edema. Pulses 1+ bilaterally. No clubbing. Patient does have areas of multiple ecchymosis involving all 4 extremities. [employer]IST examination; no focal deficit. Results Result Diagram: 02/06/17 0644 02/06/17 0644 Results 24 hrs Laboratory Tests Test 02/06/17 06:44 White Blood Count 11.0 H Red Blood Count 2.78 L Hemoglobin 8.1 L Hematocrit 24.4 L Mean Corpuscular Volume 87.8 Mean Corpuscular Hemoglobin 29.1 Mean Corpuscular Hemoglobin Concent 33.2 Red Cell Distribution Width 16.0 H Platelet Count 11 *L Mean Platelet Volume 10.4 Neutrophils % 35.0 L Band Neutrophils % 4.0 Lymphocytes % 20.0 Monocytes % 35.0 H Basophils % 1.0 Metamyelocytes % 3.0 H Myelocytes % 2.0 H Neutrophils # 3.9 Lymphocytes # 2.2 Monocytes # 3.9 H Basophils # 0.1 Metamyelocytes # 0.3 Myelocytes # 0.2 Platelet Estimate PLT APPEAR DECREASED Sodium Level 140 Potassium Level 4.2 Chloride Level 100 Carbon Dioxide Level 29 Anion Gap 15 Blood Urea Nitrogen 29 H Creatinine 1.29 H Glucose Level 96 Calcium Level 8.2 L Phosphorus Level 4.7 Magnesium Level 1.8 Medications Medications Current Medications Ondansetron HCl (Zofran Inj) 4 mg Q6H PRN IV NAUSEA AND/OR VOMITING Last administered on 02/01/17 10:50; Admin Dose 4 MG; Start 01/31/17 at 17:00 Acetaminophen (Tylenol Tab) 650 mg Q6H PRN PO PAIN LEVEL 1-3 OR FEVER; Start at 17:00 Acetaminophen (Tylenol Supp) 650 mg Q6H PRN [place] PAIN LEVEL 1-3 OR FEVER; Start 01/31/17 at 17:00 Acetaminophen/ Hydrocodone Bitart ([place] (5/325)) 1 tab Q6H PRN PO MODERATE PAIN LEVEL 4-6 Last administered on 02/02/17 10:17; Admin Dose 1 TAB; Start at 17:00 Acetaminophen/ Hydrocodone Bitart ([place] (5/325)) 2 tab Q6H PRN PO SEVERE PAIN LEVEL 7-10; Start 01/31/17 at 17:00 Morphine Sulfate (morphine) 2 mg Q4H PRN IV SEVERE PAIN LEVEL 7-10; Start 01/31 at 17:00 Docusate Sodium (Colace) 100 mg Q12H PRN PO CONSTIPATION Last administered on 05:58; Admin Dose 100 MG; Start 01/31/17 at 17:00 Magnesium Hydroxide (Milk Of Mag) 30 ml DAILY PRN PO CONSTIPATION; Start at 17:00 Bisacodyl (Dulcolax Supp) 10 mg DAILY PRN [place] CONSTIPATION; Start 01/31/17 at 17 :00 Famotidine (Pepcid) 20 mg DAILY PO Last administered on 02/06/17 09:35; Admin Dose 20 MG; Start 02/01/17 at 09:00 Furosemide (Lasix) 20 mg DAILY@06 PO Last administered on 02/06/17 05:49; Admin Dose 20 MG; Start 02/01/17 at 06:00 Metoprolol Tartrate (Lopressor) 25 mg BID PO Last administered on 02/06/17 09: 36; Admin Dose 25 MG; Start 01/31/17 at 21:00 Potassium Chloride 8 meq 8 meq DAILY PO Last administered on 02/06/17 09:35; Admin Dose 8 MEQ; Start 02/01/17 at 09:00 Ceftriaxone Sodium 50 ml @ 100 mls/hr DAILY@20 IVPB Last administered on 20:38; Admin Dose 100 MLS/HR; Start 01/31/17 at 20:00 Azithromycin (Zithromax 500mg/ NS (Pmx)) 250 ml @ 250 mls/hr DAILY@18 IVPB Last administered on 02/05/17 18:32; Admin Dose 250 MLS/HR; Start 01/31/17 at 18:00 Albuterol/ Ipratropium (Duoneb) 3 ml Q4 PRN HHN dyspnea Last administered on 13:04; Admin Dose 3 ML; Start 01/31/17 at 17:00 Levothyroxine Sodium (Synthroid) 50 mcg DAILY@06 PO Last administered on 05:49; Admin Dose 50 MCG; Start 02/02/17 at 06:00 MYESHA OLIVER Feb 06, 2017 14:12
--- NOTE | 2017-02-06 14:53 | PN ---
Date/Time of Note Date/Time of Note DATE: 02/06/17 TIME: 14:51 Assessment/Plan VTE Prophylaxis VTE Prophylaxis Intervention: contraindicated Lines/Catheters [facility] Saline Lock Urinary Cath still in place: No Assessment/Plan Chief Complaint/Hosp Course 1. Epistaxis. Resolved. Status post evaluation by ENT. Most probably secondary to thrombocytopenia. Continue platelet correction. 2. Hemoptysis, most probably secondary to severe thrombocytopenia. Continue to monitor. Transfuse blood products as needed. 3. Severe thrombocytopenia. The patient being followed by hematology. Transfuse platelets as needed. 4. History of chronic myelogenous leukemia. Continue hematology recommendations. 5. Possible underlying healthcare-associated pneumonia versus others as indicated by asymmetrical airspace opacities found on chest x-ray. Continue antibiotics. Pulmonology following the patient. 6. Acute kidney injury, most probably secondary to hemodynamics versus others. Will avoid nephrotoxic medications. Continue to monitor. 7. Congestive heart failure. Compensated. Systolic dysfunction. Continue cardiac medications. 8. Cardiomyopathy with ejection fraction of 45% to 50% as per 2-D echocardiogram on 12/17/2016. Continue cardiac medications. 9. Pulmonary hypertension. PA pressure 42 mmHg as per 2-D echocardiogram on . Continue supplemental oxygen. 10. Symptomatic anemia, most probably secondary to acute blood loss. Continue to transfuse as needed. Hematology following. 11. Fluids, electrolytes, and nutrition. Low cholesterol diet. 12. Deep venous thrombosis prophylaxis. Chemical deep venous thrombosis prophylaxis contraindicated. 13. Gastrointestinal prophylaxis. Histamine 2 receptor blockers. PLAN: Transfuse blood products as needed. Await further recommendations from consultants. The case was discussed with Dr. Hong. Problems: Subjective 24 Hr Interval Summary Free Text/Dictation Denies any epistaxis. Exam/Review of Systems Vital Signs Vitals Vital Signs Date Time Temp Pulse Resp B/P Pulse Ox O2 Delivery O2 Flow Rate FiO2 02/06/17 12:27 84 02/06/17 12:00 97.6 19 145/74 90 02/06/17 09:45 Nasal Cannula 5.0 Intake and Output 02/05/17 02/05/17 02/06/17 15:00 23:00 07:00 Intake Total 1190 ml 120 ml Output Total 400 ml Balance 1190 ml -280 ml Exam GENERAL: This is a frail-looking thin [place] male lying in bed in no apparent distress. HEENT: Head normocephalic and atraumatic. Eyes: Anicteric sclerae. Conjunctivae clear. ENT: Nasal septum is midline. Oral mucosa is moist. NECK: Supple. No JVD noticed. RESPIRATORY: Bilaterally diminished breath sounds. No adventitious breath sounds. Minimal use of accessory muscles of respiration. CARDIAC: Regular rate and rhythm. No obvious murmurs heard. ABDOMEN: Soft, nontender, and nondistended. Bowel sounds positive in all 4 quadrants. GENITOURINARY: Deferred. EXTREMITIES: No cyanosis, no clubbing, no edema. Peripheral pulses are palpable. NEUROLOGIC: The patient is awake, alert, and oriented. Cranial nerves are grossly intact. Results Result Diagram: 02/06/17 0644 02/06/17 0644 Results 24 hrs Laboratory Tests Test 02/06/17 06:44 White Blood Count 11.0 H Red Blood Count 2.78 L Hemoglobin 8.1 L Hematocrit 24.4 L Mean Corpuscular Volume 87.8 Mean Corpuscular Hemoglobin 29.1 Mean Corpuscular Hemoglobin Concent 33.2 Red Cell Distribution Width 16.0 H Platelet Count 11 *L Mean Platelet Volume 10.4 Neutrophils % 35.0 L Band Neutrophils % 4.0 Lymphocytes % 20.0 Monocytes % 35.0 H Basophils % 1.0 Metamyelocytes % 3.0 H Myelocytes % 2.0 H Neutrophils # 3.9 Lymphocytes # 2.2 Monocytes # 3.9 H Basophils # 0.1 Metamyelocytes # 0.3 Myelocytes # 0.2 Platelet Estimate PLT APPEAR DECREASED Sodium Level 140 Potassium Level 4.2 Chloride Level 100 Carbon Dioxide Level 29 Anion Gap 15 Blood Urea Nitrogen 29 H Creatinine 1.29 H Glucose Level 96 Calcium Level 8.2 L Phosphorus Level 4.7 Magnesium Level 1.8 Medications Medications Current Medications Ondansetron HCl (Zofran Inj) 4 mg Q6H PRN IV NAUSEA AND/OR VOMITING Last administered on 02/01/17t 10:50; Admin Dose 4 MG; Start 01/31/17 at 17:00 Acetaminophen (Tylenol Tab) 650 mg Q6H PRN PO PAIN LEVEL 1-3 OR FEVER; Start at 17:00 Acetaminophen (Tylenol Supp) 650 mg Q6H PRN [place] PAIN LEVEL 1-3 OR FEVER; Start 01/31/17 at 17:00 Acetaminophen/ Hydrocodone Bitart ([place] (5/325)) 1 tab Q6H PRN PO MODERATE PAIN LEVEL 4-6 Last administered on 02/02/17 10:17; Admin Dose 1 TAB; Start at 17:00 Acetaminophen/ Hydrocodone Bitart ([place] (5/325)) 2 tab Q6H PRN PO SEVERE PAIN LEVEL 7-10; Start 01/31/17 at 17:00 Morphine Sulfate (morphine) 2 mg Q4H PRN IV SEVERE PAIN LEVEL 7-10; Start 01/31 at 17:00 Docusate Sodium (Colace) 100 mg Q12H PRN PO CONSTIPATION Last administered on 05:58; Admin Dose 100 MG; Start 01/31/17 at 17:00 Magnesium Hydroxide (Milk Of Mag) 30 ml DAILY PRN PO CONSTIPATION; Start at 17:00 Bisacodyl (Dulcolax Supp) 10 mg DAILY PRN [place] CONSTIPATION; Start 01/31/17 at 17 :00 Famotidine (Pepcid) 20 mg DAILY PO Last administered on 02/06/17 09:35; Admin Dose 20 MG; Start 02/01/17 at 09:00 Furosemide (Lasix) 20 mg DAILY@06 PO Last administered on 02/06/17 05:49; Admin Dose 20 MG; Start 02/01/17 at 06:00 Metoprolol Tartrate (Lopressor) 25 mg BID PO Last administered on 02/06/17 09: 36; Admin Dose 25 MG; Start 01/31/17 at 21:00 Potassium Chloride 8 meq 8 meq DAILY PO Last administered on 02/06/17 09:35; Admin Dose 8 MEQ; Start 02/01/17 at 09:00 Ceftriaxone Sodium 50 ml @ 100 mls/hr DAILY@20 IVPB Last administered on 20:38; Admin Dose 100 MLS/HR; Start 01/31/17 at 20:00 Azithromycin (Zithromax 500mg/ NS (Pmx)) 250 ml @ 250 mls/hr DAILY@18 IVPB Last administered on 02/05/17 18:32; Admin Dose 250 MLS/HR; Start 01/31/17 at 18:00 Albuterol/ Ipratropium (Duoneb) 3 ml Q4 PRN HHN dyspnea Last administered on 13:04; Admin Dose 3 ML; Start 01/31/17 at 17:00 Levothyroxine Sodium (Synthroid) 50 mcg DAILY@06 PO Last administered on 05:49; Admin Dose 50 MCG; Start 02/02/17 at 06:00 REJI PEREZ NP Feb 06, 2017 14:52
[2017-02-06] MEDS: AZITHROMYCIN 500MG/NS (PMX) 250 ML IVPB SCH (17:58)
--- NOTE | 2017-02-06 19:02 | CONS ---
Date/Time of Note Date/Time of Note DATE: 02/06/17 TIME: 19:01 Assessment/Plan Assessment/Plan Additional Assessment/Plan 1. Acute kidney injury, likely secondary to prerenal azotemia causing ischemic acute tubular necrosis. 2. Rule out chronic kidney disease from other medical problems. 3. History of chronic myeloid leukemia, on chemotherapy. 4. Thrombocytopenia with a severe anemia with a platelet count of 4. 5. History of gastroesophageal reflux disease, history of chronic obstructive pulmonary disease. 6. History of recent last admission and had a very long complicated course including sepsis, acute hypoxemic respiratory failure, non-ST elevation myocardial infarctions and acute encephalopathy. Plan: Cr around 1.29 Bp stable will continue to follow up Consultation Date/Type/Reason Admit Date/Time Jan 31, 2017 at 14:31 Initial Consult Date 01/31/2017 Type of Consultation: NEPHROLOGY Referring Provider: DUNIA BECKWITH 24 HR Interval Summary Free Text/Dictation no acute events overnight, BP stable Exam/Review of Systems Vital Signs Vitals Vital Signs Date Time Temp Pulse Resp B/P Pulse Ox O2 Delivery O2 Flow Rate FiO2 02/06/17 16:19 87 02/06/17 12:00 97.6 19 145/74 90 02/06/17 09:45 Nasal Cannula 5.0 Intake and Output 02/05/17 02/05/17 02/06/17 15:00 23:00 07:00 Intake Total 1190 ml 120 ml Output Total 400 ml Balance 1190 ml -280 ml Exam GENERAL: Awake but intermittently lethargic. HEENT: No jaundice. No scleral icterus. NECK: Supple, no lymphadenopathy. LUNGS: Decreased breath sounds at both lung bases with bibasilar rales. HEART: S1, S2, tachycardia, no murmur. ABDOMEN: Soft, nontender, nondistended. Bowel sounds are present. EXTREMITIES: No clubbing, cyanosis, edema. NEUROLOGICAL: The patient is alert, awake but not oriented to place and person. Cranial nerves II through XII intact. Motor strength is fine. Reflexes are normal. Results Result Diagram: 02/06/17 0644 02/06/17 0644 Results 24 hrs Laboratory Tests Test 02/06/17 06:44 White Blood Count 11.0 H Red Blood Count 2.78 L Hemoglobin 8.1 L Hematocrit 24.4 L Mean Corpuscular Volume 87.8 Mean Corpuscular Hemoglobin 29.1 Mean Corpuscular Hemoglobin Concent 33.2 Red Cell Distribution Width 16.0 H Platelet Count 11 *L Mean Platelet Volume 10.4 Neutrophils % 35.0 L Band Neutrophils % 4.0 Lymphocytes % 20.0 Monocytes % 35.0 H Basophils % 1.0 Metamyelocytes % 3.0 H Myelocytes % 2.0 H Neutrophils # 3.9 Lymphocytes # 2.2 Monocytes # 3.9 H Basophils # 0.1 Metamyelocytes # 0.3 Myelocytes # 0.2 Platelet Estimate PLT APPEAR DECREASED Sodium Level 140 Potassium Level 4.2 Chloride Level 100 Carbon Dioxide Level 29 Anion Gap 15 Blood Urea Nitrogen 29 H Creatinine 1.29 H Glucose Level 96 Calcium Level 8.2 L Phosphorus Level 4.7 Magnesium Level 1.8 Medications Medications Current Medications Ondansetron HCl (Zofran Inj) 4 mg Q6H PRN IV NAUSEA AND/OR VOMITING Last administered on 02/01/17 10:50; Admin Dose 4 MG; Start 01/31/17 at 17:00 Acetaminophen (Tylenol Tab) 650 mg Q6H PRN PO PAIN LEVEL 1-3 OR FEVER; Start at 17:00 Acetaminophen (Tylenol Supp) 650 mg Q6H PRN [place] PAIN LEVEL 1-3 OR FEVER; Start 01/31/17 at 17:00 Acetaminophen/ Hydrocodone Bitart ([place] (5/325)) 1 tab Q6H PRN PO MODERATE PAIN LEVEL 4-6 Last administered on 02/02/17 10:17; Admin Dose 1 TAB; Start at 17:00 Acetaminophen/ Hydrocodone Bitart ([place] (5/325)) 2 tab Q6H PRN PO SEVERE PAIN LEVEL 7-10; Start 01/31/17 at 17:00 Morphine Sulfate (morphine) 2 mg Q4H PRN IV SEVERE PAIN LEVEL 7-10; Start 01/31 at 17:00 Docusate Sodium (Colace) 100 mg Q12H PRN PO CONSTIPATION Last administered on 05:58; Admin Dose 100 MG; Start 01/31/17 at 17:00 Magnesium Hydroxide (Milk Of Mag) 30 ml DAILY PRN PO CONSTIPATION; Start at 17:00 Bisacodyl (Dulcolax Supp) 10 mg DAILY PRN [place] CONSTIPATION; Start 01/31/17 at 17 :00 Famotidine (Pepcid) 20 mg DAILY PO Last administered on 02/06/17 09:35; Admin Dose 20 MG; Start 02/01/17 at 09:00 Furosemide (Lasix) 20 mg DAILY@06 PO Last administered on 02/06/17 05:49; Admin Dose 20 MG; Start 02/01/17 at 06:00 Metoprolol Tartrate (Lopressor) 25 mg BID PO Last administered on 02/06/17 09: 36; Admin Dose 25 MG; Start 01/31/17 at 21:00 Potassium Chloride 8 meq 8 meq DAILY PO Last administered on 02/06/17 09:35; Admin Dose 8 MEQ; Start 02/01/17 at 09:00 Ceftriaxone Sodium 50 ml @ 100 mls/hr DAILY@20 IVPB Last administered on 20:38; Admin Dose 100 MLS/HR; Start 01/31/17 at 20:00 Azithromycin (Zithromax 500mg/ NS (Pmx)) 250 ml @ 250 mls/hr DAILY@18 IVPB Last administered on 02/06/17 17:58; Admin Dose 250 MLS/HR; Start 01/31/17 at 18:00 Albuterol/ Ipratropium (Duoneb) 3 ml Q4 PRN HHN dyspnea Last administered on 13:04; Admin Dose 3 ML; Start 01/31/17 at 17:00 Levothyroxine Sodium (Synthroid) 50 mcg DAILY@06 PO Last administered on 05:49; Admin Dose 50 MCG; Start 02/02/17 at 06:00 GILL PEREIRA MD Feb 06, 2017 19:02
[2017-02-06] MEDS: CEFTRIAXONE 2 GM/50 ML (PMX) 50 ML IVPB SCH (21:57)
[2017-02-07] VITALS (13 sets, daily range): BP systolic 102–127; BP diastolic 56–86; PULSE 78–93; RESP 17–20
[2017-02-07] MEDS: LEVOTHYROXINE 50 MCG TAB PO SCH (06:04)
[2017-02-07] MEDS: FUROSEMIDE 20 MG TAB PO SCH (06:04)
[2017-02-07 07:55] LABS: ADD SCAN DIFF NO
[2017-02-07 07:58] LABS: ABNORMAL IP MESSAGE 1; HEMATOCRIT 23.7 % (42.0-52.0); HEMOGLOBIN 7.8 g/dl (14.0-18.0); MEAN CORPUSCULAR HEMOGLOBIN 28.9 pg (29.0-33.0); MEAN CORPUSCULAR HGB CONC 32.9 g/dl (32.0-37.0); MEAN CORPUSCULAR VOLUME 87.8 fl (82.0-101.0); RED CELL DISTRIBUTION WIDTH 15.9 % (11.5-14.5); WHITE BLOOD COUNT 10.4 10^3/ul (4.8-10.8)
[2017-02-07 08:02] LABS: PLATELET COUNT 10 10^3/UL (140-415)
[2017-02-07 08:15] LABS: CALCIUM 8.3 mg/dl (8.4-10.2); CREATININE 1.39 mg/dl (0.61-1.24)
[2017-02-07] MEDS: POTASSIUM CHLORIDE (SR) 8 MEQ CAP PO SCH (09:02)
[2017-02-07] MEDS: FAMOTIDINE 20 MG TAB PO SCH (09:02)
[2017-02-07] MEDS: METOPROLOL 25 MG TAB PO SCH ×2 (09:02→22:22)
--- NOTE | 2017-02-07 09:52 | CONS ---
DATE OF ADMISSION: 01/31/2017 DATE OF CONSULTATION: 02/07/2017 HEMATOLOGY PROGRESS NOTE SUBJECTIVE: Mr. Townsend states he is feeling well. He has had no further epistaxis or other evide nce of bleeding. He does not complain of shortness of breath. OBJECTIVE: VITAL SIGNS: Temperature 98.3, pulse 79 per minute and regular, respirations 19, blood pressure 124 /66, pulse oximetry 96% on 3 L by nasal cannula. SKIN: Pale with scattered ecchymoses and purpura. HEENT: No mucosal lesions. No scleral icterus. NECK: Supple, no jugular venous distention or thyroid enlargement. CHEST: Clear to auscultation and percussion. No rhonchi, wheezes, rales, or rubs. NODES: No palpable lymphadenopathy. ABDOMEN: Soft, no masses or ascites. There spleen is palpable 4 cm below left costal margin in the anterior axillary line. EXTREMITIES: No clubbing, edema, or cyanosis. No palpable cords or Homans sign. LABORATORY DATA: White count 10,400, hemoglobin 7.8, hematocrit 23.7, platelet count 10,000. Creat inine 1.39, BUN 32. ASSESSMENT: 1. Epistaxis due to thrombocytopenia 2. Anemia and thrombocytopenia due to myelodysplastic syndrome. PLAN: At this time, if the patient to be discharged, I would transfuse with packed red blood cells, but would withhold platelet transfusions unless there was clinical bleeding. As previously noted, this patient does not get a significant increment from platelet transfusions because of development of alloantibodies. Would, therefore, try to hold platelets until bleeding becomes apparent. Dictated By: OPAL MOSES MD SR/NTS Conf#: [id number] DID#: [id number]
[2017-02-07 10:31] LABS: EOSINOPHILS # 0.3 10^3/ul (0.0-0.5); LYMPHOCYTES # 2.3 10^3/ul (0.8-2.9); MONOCYTE # 4.7 10^3/ul (0.3-0.9); MYELOCYTES # 0.2; NEUTROPHIL # 2.6 10^3/ul (1.6-7.5)
--- NOTE | 2017-02-07 10:38 | CONS ---
Date/Time of Note Date/Time of Note DATE: 02/07/17 TIME: 10:36 Assessment/Plan Assessment/Plan Additional Assessment/Plan 1. Acute kidney injury, likely secondary to prerenal azotemia causing ischemic acute tubular necrosis. 2. Rule out chronic kidney disease from other medical problems. 3. History of chronic myeloid leukemia, on chemotherapy. 4. Thrombocytopenia with a severe anemia with a platelet count of 4. 5. History of gastroesophageal reflux disease, history of chronic obstructive pulmonary disease. 6. History of recent last admission and had a very long complicated course including sepsis, acute hypoxemic respiratory failure, non-ST elevation myocardial infarctions and acute encephalopathy. Plan: Cr around 1.39- slightly higher than yesterday, will montitor Bp stable will continue to follow up Consultation Date/Type/Reason Admit Date/Time Jan 31, 2017 at 14:31 Initial Consult Date 01/31/2017 Type of Consultation: NEPHROLOGY Referring Provider: DUNIA BECKWITH 24 HR Interval Summary Free Text/Dictation pt stable afebrile,Cr 1.39 Exam/Review of Systems Vital Signs Vitals Vital Signs Date Time Temp Pulse Resp B/P Pulse Ox O2 Delivery O2 Flow Rate FiO2 02/07/17 09:53 3.0 02/07/17 08:26 78 02/07/17 08:06 Nasal Cannula 02/07/17 07:59 98.3 19 124/66 96 Intake and Output 02/06/17 02/06/17 02/07/17 15:00 23:00 07:00 Intake Total 800 ml 150 ml Output Total 2000 ml 675 ml Balance -1200 ml -525 ml Exam GENERAL: Awake but intermittently lethargic. HEENT: No jaundice. No scleral icterus. NECK: Supple, no lymphadenopathy. LUNGS: Decreased breath sounds at both lung bases with bibasilar rales. HEART: S1, S2, tachycardia, no murmur. ABDOMEN: Soft, nontender, nondistended. Bowel sounds are present. EXTREMITIES: No clubbing, cyanosis, edema. NEUROLOGICAL: The patient is alert, awake but not oriented to place and person. Cranial nerves II through XII intact. Motor strength is fine. Reflexes are normal. Results Result Diagram: 02/07/17 0708 02/07/17 0708 Results 24 hrs Laboratory Tests Test 02/07/17 07:08 White Blood Count 10.4 Red Blood Count 2.70 L Hemoglobin 7.8 L Hematocrit 23.7 L Mean Corpuscular Volume 87.8 Mean Corpuscular Hemoglobin 28.9 L Mean Corpuscular Hemoglobin Concent 32.9 Red Cell Distribution Width 15.9 H Platelet Count 10 *L Mean Platelet Volume Neutrophils % 25.0 L Lymphocytes % 22.0 Reactive Lymphocytes % 2.0 Monocytes % 45.0 H Eosinophils % 3.0 Metamyelocytes % 1.0 H Myelocytes % 2.0 H Neutrophils # 2.6 Lymphocytes # 2.3 Monocytes # 4.7 H Eosinophils # 0.3 Metamyelocytes # 0.1 Myelocytes # 0.2 Sodium Level 141 Potassium Level 4.0 Chloride Level 102 Carbon Dioxide Level 28 Anion Gap 15 Blood Urea Nitrogen 32 H Creatinine 1.39 H Glucose Level 104 Calcium Level 8.3 L Magnesium Level 1.7 Medications Medications Current Medications Ondansetron HCl (Zofran Inj) 4 mg Q6H PRN IV NAUSEA AND/OR VOMITING Last administered on 02/01/17 10:50; Admin Dose 4 MG; Start 01/31/17 at 17:00 Acetaminophen (Tylenol Tab) 650 mg Q6H PRN PO PAIN LEVEL 1-3 OR FEVER; Start at 17:00 Acetaminophen (Tylenol Supp) 650 mg Q6H PRN [place] PAIN LEVEL 1-3 OR FEVER; Start 01/31/17 at 17:00 Acetaminophen/ Hydrocodone Bitart ([place] (5/325)) 1 tab Q6H PRN PO MODERATE PAIN LEVEL 4-6 Last administered on 02/02/17 10:17; Admin Dose 1 TAB; Start at 17:00 Acetaminophen/ Hydrocodone Bitart ([place] (5/325)) 2 tab Q6H PRN PO SEVERE PAIN LEVEL 7-10; Start 01/31/17 at 17:00 Morphine Sulfate (morphine) 2 mg Q4H PRN IV SEVERE PAIN LEVEL 7-10; Start 01/31 at 17:00 Docusate Sodium (Colace) 100 mg Q12H PRN PO CONSTIPATION Last administered on 05:58; Admin Dose 100 MG; Start 01/31/17 at 17:00 Magnesium Hydroxide (Milk Of Mag) 30 ml DAILY PRN PO CONSTIPATION; Start at 17:00 Bisacodyl (Dulcolax Supp) 10 mg DAILY PRN [place] CONSTIPATION; Start 01/31/17 at 17 :00 Famotidine (Pepcid) 20 mg DAILY PO Last administered on 02/07/17 09:02; Admin Dose 20 MG; Start 02/01/17 at 09:00 Furosemide (Lasix) 20 mg DAILY@06 PO Last administered on 02/07/17 06:04; Admin Dose 20 MG; Start 02/01/17 at 06:00 Metoprolol Tartrate (Lopressor) 25 mg BID PO Last administered on 02/07/17 09: 02; Admin Dose 25 MG; Start 01/31/17 at 21:00 Potassium Chloride 8 meq 8 meq DAILY PO Last administered on 02/07/17 09:02; Admin Dose 8 MEQ; Start 02/01/17 at 09:00 Ceftriaxone Sodium 50 ml @ 100 mls/hr DAILY@20 IVPB Last administered on 21:57; Admin Dose 100 MLS/HR; Start 01/31/17 at 20:00 Azithromycin (Zithromax 500mg/ NS (Pmx)) 250 ml @ 250 mls/hr DAILY@18 IVPB Last administered on 02/06/17 17:58; Admin Dose 250 MLS/HR; Start 01/31/17 at 18:00 Albuterol/ Ipratropium (Duoneb) 3 ml Q4 PRN HHN dyspnea Last administered on 13:04; Admin Dose 3 ML; Start 01/31/17 at 17:00 Levothyroxine Sodium (Synthroid) 50 mcg DAILY@06 PO Last administered on 06:04; Admin Dose 50 MCG; Start 02/02/17 at 06:00 GILL PEREIRA MD Feb 07, 2017 10:38
--- NOTE | 2017-02-07 14:31 | CONS ---
Date/Time of Note Date/Time of Note DATE: 02/07/17 TIME: 14:30 Consult Date/Type/Reason Admit Date/Time Jan 31, 2017 at 14:31 Initial Consult Date Type of Consultation: pulmonary Ordering Provider: DUNIA BECKWITH Subjective Patient stable this morning no new events Objective Vital Signs Date Time Temp Pulse Resp B/P Pulse Ox O2 Delivery O2 Flow Rate FiO2 02/07/17 12:29 98.6 81 18 120/68 93 02/07/17 09:53 3.0 02/07/17 08:06 Nasal Cannula Intake and Output 02/06/17 02/06/17 02/07/17 15:00 23:00 07:00 Intake Total 800 ml 150 ml Output Total 2000 ml 675 ml Balance -1200 ml -525 ml Exam GENERAL: Thin elderly [place] gentleman comfortable at rest VITAL SIGNS: per chart NECK: Supple. No JVD or lymphadenopathy. CARDIAC EXAM: S1, S2. No added sounds or murmurs. CHEST: clear bilaterally, No added sounds, rales or wheezes ABDOMEN: Soft, nontender. No guarding or rebound. EXTREMITIES: No cyanosis, clubbing or edema. NEUROLOGIC: Generalized weakness. No focal deficits. Results/Medications Result Diagram: 02/07/17 0708 02/07/17 0708 Results 24 hrs Laboratory Tests Test 02/07/17 07:08 White Blood Count 10.4 Red Blood Count 2.70 L Hemoglobin 7.8 L Hematocrit 23.7 L Mean Corpuscular Volume 87.8 Mean Corpuscular Hemoglobin 28.9 L Mean Corpuscular Hemoglobin Concent 32.9 Red Cell Distribution Width 15.9 H Platelet Count 10 *L Mean Platelet Volume Neutrophils % 25.0 L Lymphocytes % 22.0 Reactive Lymphocytes % 2.0 Monocytes % 45.0 H Eosinophils % 3.0 Metamyelocytes % 1.0 H Myelocytes % 2.0 H Neutrophils # 2.6 Lymphocytes # 2.3 Monocytes # 4.7 H Eosinophils # 0.3 Metamyelocytes # 0.1 Myelocytes # 0.2 Sodium Level 141 Potassium Level 4.0 Chloride Level 102 Carbon Dioxide Level 28 Anion Gap 15 Blood Urea Nitrogen 32 H Creatinine 1.39 H Glucose Level 104 Calcium Level 8.3 L Magnesium Level 1.7 Medications Current Medications Ondansetron HCl (Zofran Inj) 4 mg Q6H PRN IV NAUSEA AND/OR VOMITING Last administered on 02/01/17 10:50; Admin Dose 4 MG; Start 01/31/17 at 17:00 Acetaminophen (Tylenol Tab) 650 mg Q6H PRN PO PAIN LEVEL 1-3 OR FEVER; Start at 17:00 Acetaminophen (Tylenol Supp) 650 mg Q6H PRN [place] PAIN LEVEL 1-3 OR FEVER; Start 01/31/17 at 17:00 Acetaminophen/ Hydrocodone Bitart ([place] (5/325)) 1 tab Q6H PRN PO MODERATE PAIN LEVEL 4-6 Last administered on 02/02/17 10:17; Admin Dose 1 TAB; Start at 17:00 Acetaminophen/ Hydrocodone Bitart ([place] (5/325)) 2 tab Q6H PRN PO SEVERE PAIN LEVEL 7-10; Start 01/31/17 at 17:00 Morphine Sulfate (morphine) 2 mg Q4H PRN IV SEVERE PAIN LEVEL 7-10; Start 01/31 at 17:00 Docusate Sodium (Colace) 100 mg Q12H PRN PO CONSTIPATION Last administered on 05:58; Admin Dose 100 MG; Start 01/31/17 at 17:00 Magnesium Hydroxide (Milk Of Mag) 30 ml DAILY PRN PO CONSTIPATION; Start at 17:00 Bisacodyl (Dulcolax Supp) 10 mg DAILY PRN [place] CONSTIPATION; Start 01/31/17 at 17 :00 Famotidine (Pepcid) 20 mg DAILY PO Last administered on 02/07/17 09:02; Admin Dose 20 MG; Start 02/01/17 at 09:00 Furosemide (Lasix) 20 mg DAILY@06 PO Last administered on 02/07/17 06:04; Admin Dose 20 MG; Start 02/01/17 at 06:00 Metoprolol Tartrate (Lopressor) 25 mg BID PO Last administered on 02/07/17 09: 02; Admin Dose 25 MG; Start 01/31/17 at 21:00 Potassium Chloride 8 meq 8 meq DAILY PO Last administered on 02/07/17 09:02; Admin Dose 8 MEQ; Start 02/01/17 at 09:00 Ceftriaxone Sodium 50 ml @ 100 mls/hr DAILY@20 IVPB Last administered on 21:57; Admin Dose 100 MLS/HR; Start 01/31/17 at 20:00 Azithromycin (Zithromax 500mg/ NS (Pmx)) 250 ml @ 250 mls/hr DAILY@18 IVPB Last administered on 02/06/17 17:58; Admin Dose 250 MLS/HR; Start 01/31/17 at 18:00 Albuterol/ Ipratropium (Duoneb) 3 ml Q4 PRN HHN dyspnea Last administered on 13:04; Admin Dose 3 ML; Start 01/31/17 at 17:00 Levothyroxine Sodium (Synthroid) 50 mcg DAILY@06 PO Last administered on 06:04; Admin Dose 50 MCG; Start 02/02/17 at 06:00 Assessment/Plan Chief Complaint/Hosp Course Assessment 1. CML 2. Thrombocytopenia and anemia postchemotherapy 3. Recent epistaxis 4. Ruled out TB via AFBs Recommendations 1. Continue hematology oncology recommendations 2. Continue to monitor for hemoptysis although clinically improved Consider discharge planning okay from pulmonary standpoint Problems: SAMARA STRAUSS MD, [facility] Feb 07, 2017 14:31
--- NOTE | 2017-02-07 14:55 | PN ---
Date/Time of Note Date/Time of Note DATE: 02/07/17 TIME: 14:54 Assessment/Plan VTE Prophylaxis VTE Prophylaxis Intervention: contraindicated Lines/Catheters IV C[facility] Type (from [facility] [place] [facility] Urinary Cath still in place: No Assessment/Plan Chief Complaint/Hosp Course 1. Epistaxis. Resolved. Status post evaluation by ENT. Most probably secondary to thrombocytopenia. Continue platelet correction. 2. Hemoptysis, most probably secondary to severe thrombocytopenia. Continue to monitor. Transfuse blood products as needed. 3. Severe thrombocytopenia. The patient being followed by hematology. Transfuse platelets as needed. 4. History of chronic myelogenous leukemia. Continue hematology recommendations. 5. Possible underlying healthcare-associated pneumonia versus others as indicated by asymmetrical airspace opacities found on chest x-ray. Continue antibiotics. Pulmonology following the patient. The patient has been ruled out for PTB. 6. Acute kidney injury, most probably secondary to hemodynamics versus others. Will avoid nephrotoxic medications. Continue to monitor. 7. Congestive heart failure. Compensated. Systolic dysfunction. Continue cardiac medications. 8. Cardiomyopathy with ejection fraction of 45% to 50% as per 2-D echocardiogram on 12/17/2016. Continue cardiac medications. 9. Pulmonary hypertension. PA pressure 42 mmHg as per 2-D echocardiogram on . Continue supplemental oxygen. 10. Symptomatic anemia, most probably secondary to acute blood loss. Continue to transfuse as needed. Hematology following. 11. Fluids, electrolytes, and nutrition. Low cholesterol diet. 12. Deep venous thrombosis prophylaxis. Chemical deep venous thrombosis prophylaxis contraindicated. 13. Gastrointestinal prophylaxis. Histamine 2 receptor blockers. PLAN: Transfuse blood products as needed. Await clearance from consultants before discharge. The case was discussed with Dr. Hong. Problems: Subjective 24 Hr Interval Summary Free Text/Dictation No epistaxis reported. Exam/Review of Systems Vital Signs Vitals Vital Signs Date Time Temp Pulse Resp B/P Pulse Ox O2 Delivery O2 Flow Rate FiO2 02/07/17 12:29 98.6 81 18 120/68 93 02/07/17 09:53 3.0 02/07/17 08:06 Nasal Cannula Intake and Output 02/06/17 02/06/17 02/07/17 15:00 23:00 07:00 Intake Total 800 ml 150 ml Output Total 2000 ml 675 ml Balance -1200 ml -525 ml Exam GENERAL: This is a frail-looking thin [place] male lying in bed in no apparent distress. HEENT: Head normocephalic and atraumatic. Eyes: Anicteric sclerae. Conjunctivae clear. ENT: Nasal septum is midline. Oral mucosa is moist. NECK: Supple. No JVD noticed. RESPIRATORY: Bilaterally diminished breath sounds. No adventitious breath sounds. Minimal use of accessory muscles of respiration. CARDIAC: Regular rate and rhythm. No obvious murmurs heard. ABDOMEN: Soft, nontender, and nondistended. Bowel sounds positive in all 4 quadrants. GENITOURINARY: Deferred. EXTREMITIES: No cyanosis, no clubbing, no edema. Peripheral pulses are palpable. NEUROLOGIC: The patient is awake, alert, and oriented. Cranial nerves are grossly intact. Results Result Diagram: 02/07/17 0708 02/07/17 0708 Results 24 hrs Laboratory Tests Test 02/07/17 07:08 White Blood Count 10.4 Red Blood Count 2.70 L Hemoglobin 7.8 L Hematocrit 23.7 L Mean Corpuscular Volume 87.8 Mean Corpuscular Hemoglobin 28.9 L Mean Corpuscular Hemoglobin Concent 32.9 Red Cell Distribution Width 15.9 H Platelet Count 10 *L Mean Platelet Volume Neutrophils % 25.0 L Lymphocytes % 22.0 Reactive Lymphocytes % 2.0 Monocytes % 45.0 H Eosinophils % 3.0 Metamyelocytes % 1.0 H Myelocytes % 2.0 H Neutrophils # 2.6 Lymphocytes # 2.3 Monocytes # 4.7 H Eosinophils # 0.3 Metamyelocytes # 0.1 Myelocytes # 0.2 Sodium Level 141 Potassium Level 4.0 Chloride Level 102 Carbon Dioxide Level 28 Anion Gap 15 Blood Urea Nitrogen 32 H Creatinine 1.39 H Glucose Level 104 Calcium Level 8.3 L Magnesium Level 1.7 Medications Medications Current Medications Ondansetron HCl (Zofran Inj) 4 mg Q6H PRN IV NAUSEA AND/OR VOMITING Last administered on 02/01/17t 10:50; Admin Dose 4 MG; Start 01/31/17 at 17:00 Acetaminophen (Tylenol Tab) 650 mg Q6H PRN PO PAIN LEVEL 1-3 OR FEVER; Start at 17:00 Acetaminophen (Tylenol Supp) 650 mg Q6H PRN [place] PAIN LEVEL 1-3 OR FEVER; Start 01/31/17 at 17:00 Acetaminophen/ Hydrocodone Bitart ([place] (5/325)) 1 tab Q6H PRN PO MODERATE PAIN LEVEL 4-6 Last administered on 02/02/17 10:17; Admin Dose 1 TAB; Start at 17:00 Acetaminophen/ Hydrocodone Bitart ([place] (5/325)) 2 tab Q6H PRN PO SEVERE PAIN LEVEL 7-10; Start 01/31/17 at 17:00 Morphine Sulfate (morphine) 2 mg Q4H PRN IV SEVERE PAIN LEVEL 7-10; Start 01/31 at 17:00 Docusate Sodium (Colace) 100 mg Q12H PRN PO CONSTIPATION Last administered on 05:58; Admin Dose 100 MG; Start 01/31/17 at 17:00 Magnesium Hydroxide (Milk Of Mag) 30 ml DAILY PRN PO CONSTIPATION; Start at 17:00 Bisacodyl (Dulcolax Supp) 10 mg DAILY PRN [place] CONSTIPATION; Start 01/31/17 at 17 :00 Famotidine (Pepcid) 20 mg DAILY PO Last administered on 02/07/17 09:02; Admin Dose 20 MG; Start 02/01/17 at 09:00 Furosemide (Lasix) 20 mg DAILY@06 PO Last administered on 02/07/17 06:04; Admin Dose 20 MG; Start 02/01/17 at 06:00 Metoprolol Tartrate (Lopressor) 25 mg BID PO Last administered on 02/07/17 09: 02; Admin Dose 25 MG; Start 01/31/17 at 21:00 Potassium Chloride 8 meq 8 meq DAILY PO Last administered on 02/07/17 09:02; Admin Dose 8 MEQ; Start 02/01/17 at 09:00 Ceftriaxone Sodium 50 ml @ 100 mls/hr DAILY@20 IVPB Last administered on 21:57; Admin Dose 100 MLS/HR; Start 01/31/17 at 20:00 Azithromycin (Zithromax 500mg/ NS (Pmx)) 250 ml @ 250 mls/hr DAILY@18 IVPB Last administered on 02/06/17 17:58; Admin Dose 250 MLS/HR; Start 01/31/17 at 18:00 Albuterol/ Ipratropium (Duoneb) 3 ml Q4 PRN HHN dyspnea Last administered on 13:04; Admin Dose 3 ML; Start 01/31/17 at 17:00 Levothyroxine Sodium (Synthroid) 50 mcg DAILY@06 PO Last administered on 06:04; Admin Dose 50 MCG; Start 02/02/17 at 06:00 REJI PEREZ NP Feb 07, 2017 14:55
[2017-02-07] MEDS: AZITHROMYCIN 500MG/NS (PMX) 250 ML IVPB SCH (18:03)
[2017-02-07] MEDS: CEFTRIAXONE 2 GM/50 ML (PMX) 50 ML IVPB SCH (22:15)
[2017-02-08] VITALS (14 sets, daily range): BP systolic 90–122; BP diastolic 52–63; PULSE 93–116; RESP 18–22
[2017-02-08] MEDS: FUROSEMIDE 20 MG TAB PO SCH (06:00)
[2017-02-08] MEDS: LEVOTHYROXINE 50 MCG TAB PO SCH (06:40)
[2017-02-08 07:04] LABS: ADD SCAN DIFF NO
[2017-02-08 07:10] LABS: ABNORMAL IP MESSAGE 1; HEMATOCRIT 20.1 % (42.0-52.0); MEAN CORPUSCULAR HEMOGLOBIN 28.1 pg (29.0-33.0); MEAN CORPUSCULAR HGB CONC 31.3 g/dl (32.0-37.0); MEAN CORPUSCULAR VOLUME 89.7 fl (82.0-101.0); PLATELET COUNT 44 10^3/UL (140-415); RED BLOOD COUNT 2.24 10^6/ul (4.70-6.10); RED CELL DISTRIBUTION WIDTH 16.4 % (11.5-14.5); WHITE BLOOD COUNT 19.9 10^3/ul (4.8-10.8)
[2017-02-08 07:16] LABS: HEMOGLOBIN 6.3 g/dl (14.0-18.0)
[2017-02-08 07:39] LABS: CREATININE 1.5 mg/dl (0.61-1.24)
[2017-02-08 07:40] LABS: CALCIUM 8.4 mg/dl (8.4-10.2)
[2017-02-08] MEDS: METOPROLOL 25 MG TAB PO SCH ×2 (08:52→21:44)
[2017-02-08] MEDS: FAMOTIDINE 20 MG TAB PO SCH (08:52)
[2017-02-08] MEDS: POTASSIUM CHLORIDE (SR) 8 MEQ CAP PO SCH (08:52)
[2017-02-08 10:04] LABS: LYMPHOCYTES # 4.2 10^3/ul (0.8-2.9); MONOCYTE # 7.6 10^3/ul (0.3-0.9); NEUTROPHIL # 6.8 10^3/ul (1.6-7.5)
[2017-02-08 10:05] LABS: ANISOCYTOSIS 1+; OVALOCYTES OCCASIONAL; POIKILOCYTOSIS 1+; POLYCHROMASIA 2+; TEAR DROP CELLS OCCASIONAL
[2017-02-08 10:09] LABS: PLATELET ESTIMATE PLT APPEAR DECREASED
--- NOTE | 2017-02-08 11:18 | CONS ---
Date/Time of Note Date/Time of Note DATE: 02/08/17 TIME: 11:13 Assessment/Plan Assessment/Plan Additional Assessment/Plan 1. Acute kidney injury, likely secondary to prerenal azotemia causing ischemic acute tubular necrosis. 2. h/o CKD Stage III due to medical morbidiites 3. History of chronic myeloid leukemia, on chemotherapy. 4. Thrombocytopenia severe 5. History of gastroesophageal reflux disease, history of chronic obstructive pulmonary disease. 6. History of recent last admission and had a very long complicated course including sepsis, acute hypoxemic respiratory failure, non-ST elevation myocardial infarctions and acute encephalopathy. Plan: Cr bumped to 1.5 slightly higher than yesterday, will monitor Hb dropped to 6.3, Plan for Transfusion as per PMD and hematology will continue to follow up Consultation Date/Type/Reason Admit Date/Time Jan 31, 2017 at 14:31 Initial Consult Date 01/31/2017 Type of Consultation: NEPHROLOGY Referring Provider: DUNIA BECKWITH 24 HR Interval Summary Free Text/Dictation pt stable , Cr bumped to 1.5, Hb dropped to 6.3 Exam/Review of Systems Vital Signs Vitals Vital Signs Date Time Temp Pulse Resp B/P Pulse Ox O2 Delivery O2 Flow Rate FiO2 02/08/17 08:15 98.6 107 20 90/52 93 02/08/17 07:30 Nasal Cannula 5.0 Intake and Output 02/07/17 02/07/17 02/08/17 15:00 23:00 07:00 Intake Total 400 ml 1054 ml Output Total 1200 ml 1875 ml Balance -800 ml -821 ml Exam GENERAL: Awake but intermittently lethargic. HEENT: No jaundice. No scleral icterus. NECK: Supple, no lymphadenopathy. LUNGS: Decreased breath sounds at both lung bases with bibasilar rales. HEART: S1, S2, tachycardia, no murmur. ABDOMEN: Soft, nontender, nondistended. Bowel sounds are present. EXTREMITIES: No clubbing, cyanosis, edema. NEUROLOGICAL: The patient is alert, awake but not oriented to place and person. Cranial nerves II through XII intact. Motor strength is fine. Reflexes are normal. Constitutional: alert Respiratory: clear to auscultation Results Result Diagram: 02/08/17 0623 02/08/17 0500 Results 24 hrs Laboratory Tests Test 02/08/17 05:00 02/08/17 06:23 Sodium Level 140 Potassium Level 4.0 Chloride Level 101 Carbon Dioxide Level 27 Anion Gap 16 Blood Urea Nitrogen 40 H Creatinine 1.50 H Glucose Level 117 Calcium Level 8.4 Magnesium Level 1.7 White Blood Count 19.9 #H Red Blood Count 2.24 L Hemoglobin 6.3 *L Hematocrit 20.1 L Mean Corpuscular Volume 89.7 Mean Corpuscular Hemoglobin 28.1 L Mean Corpuscular Hemoglobin Concent 31.3 L Red Cell Distribution Width 16.4 H Platelet Count 44 #L Mean Platelet Volume 9.0 Neutrophils % 34.0 L Lymphocytes % 21.0 Monocytes % 38.0 H Metamyelocytes % 2.0 H Myelocytes % 5.0 H Neutrophils # 6.8 Lymphocytes # 4.2 H Monocytes # 7.6 H Metamyelocytes # 0.4 Myelocytes # 1.0 Platelet Estimate PLT APPEAR DECREASED Polychromasia 2+ Poikilocytosis 1+ Anisocytosis 1+ Tear Drop Cells OCCASIONAL Ovalocytes OCCASIONAL Medications Medications Current Medications Ondansetron HCl (Zofran Inj) 4 mg Q6H PRN IV NAUSEA AND/OR VOMITING Last administered on 02/01/17 10:50; Admin Dose 4 MG; Start 01/31/17 at 17:00 Acetaminophen (Tylenol Tab) 650 mg Q6H PRN PO PAIN LEVEL 1-3 OR FEVER; Start at 17:00 Acetaminophen (Tylenol Supp) 650 mg Q6H PRN [place] PAIN LEVEL 1-3 OR FEVER; Start 01/31/17 at 17:00 Acetaminophen/ Hydrocodone Bitart ([place] (5/325)) 1 tab Q6H PRN PO MODERATE PAIN LEVEL 4-6 Last administered on 02/02/17 10:17; Admin Dose 1 TAB; Start at 17:00 Acetaminophen/ Hydrocodone Bitart ([place] (5/325)) 2 tab Q6H PRN PO SEVERE PAIN LEVEL 7-10; Start 01/31/17 at 17:00 Morphine Sulfate (morphine) 2 mg Q4H PRN IV SEVERE PAIN LEVEL 7-10; Start 01/31 at 17:00 Docusate Sodium (Colace) 100 mg Q12H PRN PO CONSTIPATION Last administered on 05:58; Admin Dose 100 MG; Start 01/31/17 at 17:00 Magnesium Hydroxide (Milk Of Mag) 30 ml DAILY PRN PO CONSTIPATION; Start at 17:00 Bisacodyl (Dulcolax Supp) 10 mg DAILY PRN [place] CONSTIPATION; Start 01/31/17 at 17 :00 Famotidine (Pepcid) 20 mg DAILY PO Last administered on 02/08/17 08:52; Admin Dose 20 MG; Start 02/01/17 at 09:00 Furosemide (Lasix) 20 mg DAILY@06 PO Last administered on 02/07/17 06:04; Admin Dose 20 MG; Start 02/01/17 at 06:00 Metoprolol Tartrate (Lopressor) 25 mg BID PO Last administered on 02/07/17 22: 22; Admin Dose 25 MG; Start 01/31/17 at 21:00 Potassium Chloride 8 meq 8 meq DAILY PO Last administered on 02/08/17 08:52; Admin Dose 8 MEQ; Start 02/01/17 at 09:00 Ceftriaxone Sodium 50 ml @ 100 mls/hr DAILY@20 IVPB Last administered on 22:15; Admin Dose 100 MLS/HR; Start 01/31/17 at 20:00 Azithromycin (Zithromax 500mg/ NS (Pmx)) 250 ml @ 250 mls/hr DAILY@18 IVPB Last administered on 02/07/17 18:03; Admin Dose 250 MLS/HR; Start 01/31/17 at 18:00 Albuterol/ Ipratropium (Duoneb) 3 ml Q4 PRN HHN dyspnea Last administered on 13:04; Admin Dose 3 ML; Start 01/31/17 at 17:00 Levothyroxine Sodium (Synthroid) 50 mcg DAILY@06 PO Last administered on 06:40; Admin Dose 50 MCG; Start 02/02/17 at 06:00 Collagenase (Santyl) 1 applic DAILY TOP ; Start 02/08/17 at 09:00 GILL PEREIRA MD Feb 08, 2017 11:17
--- NOTE | 2017-02-08 12:49 | PN ---
Date/Time of Note Date/Time of Note DATE: 02/08/17 TIME: 12:45 Assessment/Plan VTE Prophylaxis VTE Prophylaxis Intervention: contraindicated Lines/Catheters IV [facility] [place] [facility] Urinary Cath still in place: No Assessment/Plan Chief Complaint/Hosp Course 1. Epistaxis. Resolved. Status post evaluation by ENT. Most probably secondary to thrombocytopenia. Continue platelet correction. 2. Hemoptysis, most probably secondary to severe thrombocytopenia. Continue to monitor. Transfuse blood products as needed. 3. Severe thrombocytopenia. The patient being followed by hematology. Transfuse platelets as needed. 4. History of chronic myelogenous leukemia. Continue hematology recommendations. 5. Possible underlying healthcare-associated pneumonia versus others as indicated by asymmetrical airspace opacities found on chest x-ray. Continue antibiotics. Pulmonology following the patient. The patient has been ruled out for PTB. 6. Acute kidney injury, most probably secondary to hemodynamics versus others. Will avoid nephrotoxic medications. Continue to monitor. 7. Congestive heart failure. Compensated. Systolic dysfunction. Continue cardiac medications. 8. Cardiomyopathy with ejection fraction of 45% to 50% as per 2-D echocardiogram on 12/17/2016. Continue cardiac medications. 9. Pulmonary hypertension. PA pressure 42 mmHg as per 2-D echocardiogram on . Continue supplemental oxygen. 10. Symptomatic anemia, most probably secondary to acute blood loss. Continue to transfuse as needed. Hematology following. Will involve gastroenterology on the case. 11. Fluids, electrolytes, and nutrition. Low cholesterol diet. 12. Deep venous thrombosis prophylaxis. Chemical deep venous thrombosis prophylaxis contraindicated. 13. Gastrointestinal prophylaxis. PPI. PLAN: Transfuse blood products as needed. Involve gastroenterology on the case because of low H&H and hematemesis. The case was discussed with Dr. Hogn. Problems: Subjective 24 Hr Interval Summary Free Text/Dictation Has been spitting blood over night. Exam/Review of Systems Vital Signs Vitals Vital Signs Date Time Temp Pulse Resp B/P Pulse Ox O2 Delivery O2 Flow Rate FiO2 02/08/17 12:09 97.8 102 20 93/58 98 02/08/17 07:30 Nasal Cannula 5.0 Intake and Output 02/07/17 02/07/17 02/08/17 15:00 23:00 07:00 Intake Total 400 ml 1054 ml Output Total 1200 ml 1875 ml Balance -800 ml -821 ml Exam GENERAL: This is a frail-looking thin [place]ian male lying in bed in no apparent distress. HEENT: Head normocephalic and atraumatic. Eyes: Anicteric sclerae. Conjunctivae clear. ENT: Nasal septum is midline. Oral mucosa is moist. NECK: Supple. No JVD noticed. RESPIRATORY: Bilaterally diminished breath sounds. No adventitious breath sounds. Minimal use of accessory muscles of respiration. CARDIAC: Regular rate and rhythm. No obvious murmurs heard. ABDOMEN: Soft, nontender, and nondistended. Bowel sounds positive in all 4 quadrants. GENITOURINARY: Deferred. EXTREMITIES: No cyanosis, no clubbing, no edema. Peripheral pulses are palpable. NEUROLOGIC: The patient is awake, alert, and oriented. Cranial nerves are grossly intact. Results Result Diagram: 02/08/17 0623 02/08/17 0500 Results 24 hrs Laboratory Tests Test 02/08/17 05:00 02/08/17 06:23 Sodium Level 140 Potassium Level 4.0 Chloride Level 101 Carbon Dioxide Level 27 Anion Gap 16 Blood Urea Nitrogen 40 H Creatinine 1.50 H Glucose Level 117 Calcium Level 8.4 Magnesium Level 1.7 White Blood Count 19.9 #H Red Blood Count 2.24 L Hemoglobin 6.3 *L Hematocrit 20.1 L Mean Corpuscular Volume 89.7 Mean Corpuscular Hemoglobin 28.1 L Mean Corpuscular Hemoglobin Concent 31.3 L Red Cell Distribution Width 16.4 H Platelet Count 44 #L Mean Platelet Volume 9.0 Neutrophils % 34.0 L Lymphocytes % 21.0 Monocytes % 38.0 H Metamyelocytes % 2.0 H Myelocytes % 5.0 H Neutrophils # 6.8 Lymphocytes # 4.2 H Monocytes # 7.6 H Metamyelocytes # 0.4 Myelocytes # 1.0 Platelet Estimate PLT APPEAR DECREASED Polychromasia 2+ Poikilocytosis 1+ Anisocytosis 1+ Tear Drop Cells OCCASIONAL Ovalocytes OCCASIONAL Medications Medications Current Medications Ondansetron HCl (Zofran Inj) 4 mg Q6H PRN IV NAUSEA AND/OR VOMITING Last administered on 02/01/17t 10:50; Admin Dose 4 MG; Start 01/31/17 at 17:00 Acetaminophen (Tylenol Tab) 650 mg Q6H PRN PO PAIN LEVEL 1-3 OR FEVER; Start at 17:00 Acetaminophen (Tylenol Supp) 650 mg Q6H PRN [place] PAIN LEVEL 1-3 OR FEVER; Start 01/31/17 at 17:00 Acetaminophen/ Hydrocodone Bitart ([place] (5/325)) 1 tab Q6H PRN PO MODERATE PAIN LEVEL 4-6 Last administered on 02/02/17 10:17; Admin Dose 1 TAB; Start at 17:00 Acetaminophen/ Hydrocodone Bitart ([place] (5/325)) 2 tab Q6H PRN PO SEVERE PAIN LEVEL 7-10; Start 01/31/17 at 17:00 Morphine Sulfate (morphine) 2 mg Q4H PRN IV SEVERE PAIN LEVEL 7-10; Start 01/31 at 17:00 Docusate Sodium (Colace) 100 mg Q12H PRN PO CONSTIPATION Last administered on 05:58; Admin Dose 100 MG; Start 01/31/17 at 17:00 Magnesium Hydroxide (Milk Of Mag) 30 ml DAILY PRN PO CONSTIPATION; Start at 17:00 Bisacodyl (Dulcolax Supp) 10 mg DAILY PRN [place] CONSTIPATION; Start 01/31/17 at 17 :00 Famotidine (Pepcid) 20 mg DAILY PO Last administered on 02/08/17 08:52; Admin Dose 20 MG; Start 02/01/17 at 09:00 Furosemide (Lasix) 20 mg DAILY@06 PO Last administered on 02/07/17 06:04; Admin Dose 20 MG; Start 02/01/17 at 06:00 Metoprolol Tartrate (Lopressor) 25 mg BID PO Last administered on 02/07/17 22: 22; Admin Dose 25 MG; Start 01/31/17 at 21:00 Potassium Chloride 8 meq 8 meq DAILY PO Last administered on 02/08/17 08:52; Admin Dose 8 MEQ; Start 02/01/17 at 09:00 Ceftriaxone Sodium 50 ml @ 100 mls/hr DAILY@20 IVPB Last administered on 22:15; Admin Dose 100 MLS/HR; Start 01/31/17 at 20:00 Azithromycin (Zithromax 500mg/ NS (Pmx)) 250 ml @ 250 mls/hr DAILY@18 IVPB Last administered on 02/07/17 18:03; Admin Dose 250 MLS/HR; Start 01/31/17 at 18:00 Albuterol/ Ipratropium (Duoneb) 3 ml Q4 PRN HHN dyspnea Last administered on 13:04; Admin Dose 3 ML; Start 01/31/17 at 17:00 Levothyroxine Sodium (Synthroid) 50 mcg DAILY@06 PO Last administered on 06:40; Admin Dose 50 MCG; Start 02/02/17 at 06:00 Collagenase (Santyl) 1 applic DAILY TOP ; Start 02/08/17 at 09:00 REJI PEREZ NP Feb 08, 2017 12:49
[2017-02-08] MEDS: COLLAGENASE 30 GM TUBE TOP SCH (13:00)
--- NOTE | 2017-02-08 13:41 | CONS ---
Date/Time of Note Date/Time of Note DATE: 02/08/17 TIME: 13:41 Assessment/Plan Assessment/Plan Additional Assessment/Plan Severe thrombocytopenia Platelet transfusion per HemeOnc recommendation Continue RBC transfusions as needed Per Dr. Pryor: I do feel that the bleeding is actually related to swallowed blood and not any active GI bleeding Acute anemia Secondary to above Bedside report of epistaxis, hemoptysis, hematemesis Monitor H&H every 8 hours, transfuse 2 units for hemoglobin less than 7.5 Monitor labs Continue PPI therapy EGD if clinically indicated, pt advised of R/B/A to procedure and provide informed consent to proceed History of chronic myelogenous leukemia Myelodysplastic syndrome, causing thrombocytopenia and anemia HemeOnc following Congestive heart failure Pulmonary hypertension Further recommendations depend on clinical course Patient seen in collaboration with Dr. Kovacs Consultation Date/Type/Reason Admit Date/Time Jan 31, 2017 at 14:31 Hx of Present Illness Mr. Hernandes is a 71-year-old Korean speaking male that is currently hospitalized for treatment for acute anemia. Per notes from Dr. Pryor:"The patient has an underlying high grade myelodysplastic syndrome. 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 Again, I emphasize this is not chronic myelogenous leukemia but chronic myelomonocytic leukemia which is a much more aggressive hematologic malignancy." Patient continues to have episodes of hemoptysis, epistaxis, and hematemesis during hospitalization in addition to several transfusions of red blood cells and platelets. At present, endoscopic evaluation not recommended; however may be required in the future. Patient and advised of risks/benefits/alternatives to procedure with Korean material requirements worker and they both provide informed consent to proceed with endoscopic evaluation if clinically indicated. Past Surgical History Past Surgical Hx: bowel resection Social History Smoking Status: Never smoker Exam/Review of Systems Vital Signs Vitals Vital Signs Date Time Temp Pulse Resp B/P Pulse Ox O2 Delivery O2 Flow Rate FiO2 02/08/17 12:09 97.8 102 20 93/58 98 02/08/17 07:30 Nasal Cannula 5.0 Intake and Output 02/07/17 02/07/17 02/08/17 15:00 23:00 07:00 Intake Total 400 ml 1054 ml Output Total 1200 ml 1875 ml Balance -800 ml -821 ml Exam Constitutional: alert, oriented, cachectic Psych: nl mood/affect Head: normocephalic Eyes: EOMI, nl conjunctiva, nl lids ENMT: nl external ears & nose, nl lips & teeth, nl nasal mucosa & septum Respiratory: clear to auscultation, normal air movement Cardiovascular: regular rate and rhythm Gastrointestinal: soft, non-tender Musculoskeletal: nl extremities to inspection Neurological: HAIRSPRING I INSPECTOR II-XII intact Results Result Diagram: 02/08/17 0623 02/08/17 0500 Results 24 hrs Laboratory Tests Test 02/08/17 05:00 02/08/17 06:23 Sodium Level 140 Potassium Level 4.0 Chloride Level 101 Carbon Dioxide Level 27 Anion Gap 16 Blood Urea Nitrogen 40 H Creatinine 1.50 H Glucose Level 117 Calcium Level 8.4 Magnesium Level 1.7 White Blood Count 19.9 #H Red Blood Count 2.24 L Hemoglobin 6.3 *L Hematocrit 20.1 L Mean Corpuscular Volume 89.7 Mean Corpuscular Hemoglobin 28.1 L Mean Corpuscular Hemoglobin Concent 31.3 L Red Cell Distribution Width 16.4 H Platelet Count 44 #L Mean Platelet Volume 9.0 Neutrophils % 34.0 L Lymphocytes % 21.0 Monocytes % 38.0 H Metamyelocytes % 2.0 H Myelocytes % 5.0 H Neutrophils # 6.8 Lymphocytes # 4.2 H Monocytes # 7.6 H Metamyelocytes # 0.4 Myelocytes # 1.0 Platelet Estimate PLT APPEAR DECREASED Polychromasia 2+ Poikilocytosis 1+ Anisocytosis 1+ Tear Drop Cells OCCASIONAL Ovalocytes OCCASIONAL Medications Medications Current Medications Ondansetron HCl (Zofran Inj) 4 mg Q6H PRN IV NAUSEA AND/OR VOMITING Last administered on 02/01/17 10:50; Admin Dose 4 MG; Start 01/31/17 at 17:00 Acetaminophen (Tylenol Tab) 650 mg Q6H PRN PO PAIN LEVEL 1-3 OR FEVER; Start at 17:00 Acetaminophen (Tylenol Supp) 650 mg Q6H PRN [place] PAIN LEVEL 1-3 OR FEVER; Start 01/31/17 at 17:00 Acetaminophen/ Hydrocodone Bitart ([place] (5/325)) 1 tab Q6H PRN PO MODERATE PAIN LEVEL 4-6 Last administered on 02/02/17 10:17; Admin Dose 1 TAB; Start at 17:00 Acetaminophen/ Hydrocodone Bitart ([place] (5/325)) 2 tab Q6H PRN PO SEVERE PAIN LEVEL 7-10; Start 01/31/17 at 17:00 Morphine Sulfate (morphine) 2 mg Q4H PRN IV SEVERE PAIN LEVEL 7-10; Start 01/31 at 17:00 Docusate Sodium (Colace) 100 mg Q12H PRN PO CONSTIPATION Last administered on 05:58; Admin Dose 100 MG; Start 01/31/17 at 17:00 Magnesium Hydroxide (Milk Of Mag) 30 ml DAILY PRN PO CONSTIPATION; Start at 17:00 Bisacodyl (Dulcolax Supp) 10 mg DAILY PRN [place] CONSTIPATION; Start 01/31/17 at 17 :00 Furosemide (Lasix) 20 mg DAILY@06 PO Last administered on 02/07/17 06:04; Admin Dose 20 MG; Start 02/01/17 at 06:00 Metoprolol Tartrate (Lopressor) 25 mg BID PO Last administered on 02/07/17 22: 22; Admin Dose 25 MG; Start 01/31/17 at 21:00 Potassium Chloride 8 meq 8 meq DAILY PO Last administered on 02/08/17 08:52; Admin Dose 8 MEQ; Start 02/01/17 at 09:00 Ceftriaxone Sodium 50 ml @ 100 mls/hr DAILY@20 IVPB Last administered on 22:15; Admin Dose 100 MLS/HR; Start 01/31/17 at 20:00 Azithromycin (Zithromax 500mg/ NS (Pmx)) 250 ml @ 250 mls/hr DAILY@18 IVPB Last administered on 02/07/17 18:03; Admin Dose 250 MLS/HR; Start 01/31/17 at 18:00 Albuterol/ Ipratropium (Duoneb) 3 ml Q4 PRN HHN dyspnea Last administered on 13:04; Admin Dose 3 ML; Start 01/31/17 at 17:00 Levothyroxine Sodium (Synthroid) 50 mcg DAILY@06 PO Last administered on 06:40; Admin Dose 50 MCG; Start 02/02/17 at 06:00 Collagenase (Santyl) 1 applic DAILY TOP Last administered on 02/08/17 13:00; Admin Dose 1 APPLIC; Start 02/08/17 at 09:00 Pantoprazole (Protonix Iv) 40 mg BID@06,18 IV ; Start 02/08/17 at 18:00 WENDIE FERNANDEZ Feb 08, 2017 13:41
--- NOTE | 2017-02-08 14:07 | PN ---
DATE: 02/08/2017 SUBJECTIVE: Mr. Townsend began to experience epistaxis again yesterday with some hematemesis which was likely related to swallowed blood. The patient was transfused with 2 units of platelet pheresis. The bleeding seems to have stopped, a ccording to the patient. OBJECTIVE: VITAL SIGNS: Temperature 97.8, pulse 102 and regular, respirations 20, blood pressure 130/58, pulse oximetry 98% on 3 liters of oxygen. SKIN: Pale with scattered ecchymoses and purpura. HEENT: No mucosal lesions. No scleral icterus. There is dried blood on the lips. No active bleed ing at this time. Nasal oxygen in place. NECK: Supple, no jugular venous distention or thyroid enlargement. CHEST: Clear to auscultation and percussion. No rhonchi, wheezes, rales or rubs. NODES: No palpable lymphadenopathy. HEART: Sinus tachycardia. No S3, S4 or murmurs. ABDOMEN: Soft. The spleen is palpable approximately 4 cm below left costal margin in the anterior axillary line. There is no ascites. Bowel sounds are active. EXTREMITIES: No clubbing, edema or cyanosis. No palpable cords or Homans sign. NEUROLOGIC: Normal. LABORATORY DATA: White count 19,900 with an absolute neutrophil count of 4600 and absolute lymphocy te count of 7600. Hemoglobin this morning is 6.3, hematocrit 20.1 and platelet count is 44,000. ASSESSMENT: 1. Epistaxis secondary to thrombocytopenia. 2. Myelodysplastic syndrome, causing thrombocytopenia and anemia. PLAN: We will continue RBC transfusions as needed. I have requested 2 units of packed red blood ce lls today. The patient has received the first unit. I do feel that the bleeding is actually related to swallowed blood and not any active GI bleeding. We will continue platelet transfusions as noted. Dictated By: OPAL MOSES MD SR/NTS Conf#: [id number] DID#: [id number]
--- NOTE | 2017-02-08 14:42 | CONS ---
Date/Time of Note Date/Time of Note DATE: 02/08/17 TIME: 14:39 Assessment/Plan Assessment/Plan Additional Assessment/Plan Assessment recommendations; 1. Patient admitted for severe bilateral pneumonia with respiratory failure. Status post extubation several days ago with continued marked overall clinical improvement. 2. History of CML. 3. Severe thrombus cytopenia with significant improvement in platelet count. 4. Ill without hemorrhage. With hemoptysis with interval resolution as well. 5. Mild renal insufficiency. 6. History of hypertension. Continue current treatment. Consultation Date/Type/Reason Admit Date/Time Jan 31, 2017 at 14:31 Type of Consultation: Pulmonary Referring Provider: DUNIA BECKWITH 24 HR Interval Summary Free Text/Dictation Patient's condition is markedly improved overall denies any coughing wheezing shortness of breath. Denies any further hemoptysis. General exam; elderly male, currently in no distress. Awake and alert. Exam/Review of Systems Vital Signs Vitals Vital Signs Date Time Temp Pulse Resp B/P Pulse Ox O2 Delivery O2 Flow Rate FiO2 02/08/17 12:09 97.8 102 20 93/58 98 02/08/17 07:30 Nasal Cannula 5.0 Intake and Output 02/07/17 02/07/17 02/08/17 15:00 23:00 07:00 Intake Total 400 ml 1054 ml Output Total 1200 ml 1875 ml Balance -800 ml -821 ml Exam HEENT examination; supple neck, no JVD. No lymphadenopathy. Midline trachea. No thyromegaly. Pharynx is clear. No neck masses. No thyromegaly. Chest examination; clear to auscultation bilaterally. S1-S2 audible, no murmurs. Regular rhythm. Abdomen examination; soft, nondistended. No organomegaly. Bowel sounds audible. Extremity exam is; no peripheral edema. RADIO PROGRAM CHECKER examination; no focal deficit. Results Result Diagram: 02/08/17 0623 02/08/17 0500 Results 24 hrs Laboratory Tests Test 02/08/17 05:00 02/08/17 06:23 Sodium Level 140 Potassium Level 4.0 Chloride Level 101 Carbon Dioxide Level 27 Anion Gap 16 Blood Urea Nitrogen 40 H Creatinine 1.50 H Glucose Level 117 Calcium Level 8.4 Magnesium Level 1.7 White Blood Count 19.9 #H Red Blood Count 2.24 L Hemoglobin 6.3 *L Hematocrit 20.1 L Mean Corpuscular Volume 89.7 Mean Corpuscular Hemoglobin 28.1 L Mean Corpuscular Hemoglobin Concent 31.3 L Red Cell Distribution Width 16.4 H Platelet Count 44 #L Mean Platelet Volume 9.0 Neutrophils % 34.0 L Lymphocytes % 21.0 Monocytes % 38.0 H Metamyelocytes % 2.0 H Myelocytes % 5.0 H Neutrophils # 6.8 Lymphocytes # 4.2 H Monocytes # 7.6 H Metamyelocytes # 0.4 Myelocytes # 1.0 Platelet Estimate PLT APPEAR DECREASED Polychromasia 2+ Poikilocytosis 1+ Anisocytosis 1+ Tear Drop Cells OCCASIONAL Ovalocytes OCCASIONAL Medications Medications Current Medications Ondansetron HCl (Zofran Inj) 4 mg Q6H PRN IV NAUSEA AND/OR VOMITING Last administered on 02/01/17 10:50; Admin Dose 4 MG; Start 01/31/17 at 17:00 Acetaminophen (Tylenol Tab) 650 mg Q6H PRN PO PAIN LEVEL 1-3 OR FEVER; Start at 17:00 Acetaminophen (Tylenol Supp) 650 mg Q6H PRN [place] PAIN LEVEL 1-3 OR FEVER; Start 01/31/17 at 17:00 Acetaminophen/ Hydrocodone Bitart ([place] (5/325)) 1 tab Q6H PRN PO MODERATE PAIN LEVEL 4-6 Last administered on 02/02/17 10:17; Admin Dose 1 TAB; Start at 17:00 Acetaminophen/ Hydrocodone Bitart ([place] (5/325)) 2 tab Q6H PRN PO SEVERE PAIN LEVEL 7-10; Start 01/31/17 at 17:00 Morphine Sulfate (morphine) 2 mg Q4H PRN IV SEVERE PAIN LEVEL 7-10; Start 01/31 at 17:00 Docusate Sodium (Colace) 100 mg Q12H PRN PO CONSTIPATION Last administered on 05:58; Admin Dose 100 MG; Start 01/31/17 at 17:00 Magnesium Hydroxide (Milk Of Mag) 30 ml DAILY PRN PO CONSTIPATION; Start at 17:00 Bisacodyl (Dulcolax Supp) 10 mg DAILY PRN [place] CONSTIPATION; Start 01/31/17 at 17 :00 Furosemide (Lasix) 20 mg DAILY@06 PO Last administered on 02/07/17 06:04; Admin Dose 20 MG; Start 02/01/17 at 06:00 Metoprolol Tartrate (Lopressor) 25 mg BID PO Last administered on 02/07/17 22: 22; Admin Dose 25 MG; Start 01/31/17 at 21:00 Potassium Chloride 8 meq 8 meq DAILY PO Last administered on 02/08/17 08:52; Admin Dose 8 MEQ; Start 02/01/17 at 09:00 Ceftriaxone Sodium 50 ml @ 100 mls/hr DAILY@20 IVPB Last administered on 22:15; Admin Dose 100 MLS/HR; Start 01/31/17 at 20:00 Azithromycin (Zithromax 500mg/ NS (Pmx)) 250 ml @ 250 mls/hr DAILY@18 IVPB Last administered on 02/07/17 18:03; Admin Dose 250 MLS/HR; Start 01/31/17 at 18:00 Albuterol/ Ipratropium (Duoneb) 3 ml Q4 PRN HHN dyspnea Last administered on 13:04; Admin Dose 3 ML; Start 01/31/17 at 17:00 Levothyroxine Sodium (Synthroid) 50 mcg DAILY@06 PO Last administered on 06:40; Admin Dose 50 MCG; Start 02/02/17 at 06:00 Collagenase (Santyl) 1 applic DAILY TOP Last administered on 02/08/17 13:00; Admin Dose 1 APPLIC; Start 02/08/17 at 09:00 Pantoprazole (Protonix Iv) 40 mg BID@,18 IV ; Start 02/08/17 at 18:00 MYESHA OLIVER Feb 08, 2017 14:41
[2017-02-08] MEDS: PANTOPRAZOLE 40 MG INJ IV SCH (18:44)
[2017-02-08] MEDS: AZITHROMYCIN 500MG/NS (PMX) 250 ML IVPB SCH (18:44)
[2017-02-08] MEDS: CEFTRIAXONE 2 GM/50 ML (PMX) 50 ML IVPB SCH (21:44)
[2017-02-09] VITALS (11 sets, daily range): BP systolic 99–112; BP diastolic 54–61; PULSE 78–98; RESP 18–20
[2017-02-09] MEDS: FUROSEMIDE 20 MG TAB PO SCH (06:00)
[2017-02-09] MEDS: PANTOPRAZOLE 40 MG INJ IV SCH ×2 (06:12→18:00)
[2017-02-09] MEDS: LEVOTHYROXINE 50 MCG TAB PO SCH (06:12)
[2017-02-09 08:05] LABS: ADD SCAN DIFF NO
[2017-02-09 08:09] LABS: ABNORMAL IP MESSAGE 1; HEMATOCRIT 20.2 % (42.0-52.0); MEAN CORPUSCULAR HEMOGLOBIN 27.6 pg (29.0-33.0); MEAN CORPUSCULAR HGB CONC 32.7 g/dl (32.0-37.0); MEAN CORPUSCULAR VOLUME 84.5 fl (82.0-101.0); MEAN PLATELET VOLUME 9.7 fl (7.4-10.4); RED BLOOD COUNT 2.39 10^6/ul (4.70-6.10); RED CELL DISTRIBUTION WIDTH 16.4 % (11.5-14.5); WHITE BLOOD COUNT 9.9 10^3/ul (4.8-10.8)
[2017-02-09 08:18] LABS: HEMOGLOBIN 6.6 g/dl (14.0-18.0); PLATELET COUNT 9 10^3/UL (140-415)
[2017-02-09 08:39] LABS: POTASSIUM 4.1 mmol/L (3.5-5.1)
[2017-02-09 08:41] LABS: CREATININE 1.4 mg/dl (0.61-1.24)
[2017-02-09 08:42] LABS: CALCIUM 8.2 mg/dl (8.4-10.2)
[2017-02-09] MEDS: METOPROLOL 25 MG TAB PO SCH ×2 (09:00→22:58)
[2017-02-09] MEDS: POTASSIUM CHLORIDE (SR) 8 MEQ CAP PO SCH (09:10)
[2017-02-09] MEDS: COLLAGENASE 30 GM TUBE TOP SCH (09:12)
[2017-02-09 10:51] LABS: BASOPHIL # 0.3 10^3/ul (0.0-0.1); MONOCYTE # 1.6 10^3/ul (0.3-0.9); MYELOCYTES # 0.2; NEUTROPHIL # 2.1 10^3/ul (1.6-7.5); PLATELET ESTIMATE PLT APPEAR DECREASED
--- NOTE | 2017-02-09 12:12 | PN ---
Date/Time of Note Date/Time of Note DATE: 02/09/17 TIME: 12:08 Assessment/Plan VTE Prophylaxis VTE Prophylaxis Intervention: contraindicated Lines/Catheters IV Catheter Type (from [facility]): [facility] Urinary Cath still in place: No Assessment/Plan Chief Complaint/Hosp Course 1. Epistaxis. Resolved. Status post evaluation by ENT. Most probably secondary to thrombocytopenia. Continue platelet correction. 2. Hemoptysis, most probably secondary to severe thrombocytopenia. Continue to monitor. Transfuse blood products as needed. 3. Severe thrombocytopenia. The patient being followed by hematology. Transfuse platelets as needed. 4. History of chronic myelogenous leukemia. Continue hematology recommendations. 5. Possible underlying healthcare-associated pneumonia versus others as indicated by asymmetrical airspace opacities found on chest x-ray. Continue antibiotics. Pulmonology following the patient. The patient has been ruled out for PTB. 6. Acute kidney injury, most probably secondary to hemodynamics versus others. Will avoid nephrotoxic medications. Continue to monitor. 7. Congestive heart failure. Compensated. Systolic dysfunction. Continue cardiac medications. 8. Cardiomyopathy with ejection fraction of 45% to 50% as per 2-D echocardiogram on 12/17/2016. Continue cardiac medications. 9. Pulmonary hypertension. PA pressure 42 mmHg as per 2-D echocardiogram on . Continue supplemental oxygen. 10. Symptomatic anemia, most probably secondary to acute blood loss. Continue to transfuse as needed. Hematology following. Gastroenterology on the case. 11. Fluids, electrolytes, and nutrition. Low cholesterol diet. 12. Deep venous thrombosis prophylaxis. Chemical deep venous thrombosis prophylaxis contraindicated. 13. Gastrointestinal prophylaxis. PPI. PLAN: Transfuse blood products as needed. The patient is unstable to be discharged. Continue inhouse monitoring. The case was discussed with Dr. Hong. Problems: Subjective 24 Hr Interval Summary Free Text/Dictation Patient scheduled to get blood products transmission today. Exam/Review of Systems Vital Signs Vitals Vital Signs Date Time Temp Pulse Resp B/P Pulse Ox O2 Delivery O2 Flow Rate FiO2 02/09/17 12:01 98.2 78 20 103/57 96 02/09/17 07:40 Nasal Cannula 2.0 Intake and Output 02/08/17 02/08/17 02/09/17 14:59 22:59 06:59 Intake Total 500 ml 450 ml Output Total 400 ml Balance 100 ml 450 ml Exam GENERAL: This is a frail-looking thin Tajik male lying in bed in no apparent distress. HEENT: Head normocephalic and atraumatic. Eyes: Anicteric sclerae. Conjunctivae clear. ENT: Nasal septum is midline. Oral mucosa is moist. NECK: Supple. No JVD noticed. RESPIRATORY: Bilaterally diminished breath sounds. No adventitious breath sounds. Minimal use of accessory muscles of respiration. CARDIAC: Regular rate and rhythm. No obvious murmurs heard. ABDOMEN: Soft, nontender, and nondistended. Bowel sounds positive in all 4 quadrants. GENITOURINARY: Deferred. EXTREMITIES: No cyanosis, no clubbing, no edema. Peripheral pulses are palpable. NEUROLOGIC: The patient is awake, alert, and oriented. Cranial nerves are grossly intact. Results Result Diagram: 02/09/17 0709 02/09/17 0709 Results 24 hrs Laboratory Tests Test 02/09/17 07:09 White Blood Count 9.9 # Red Blood Count 2.39 L Hemoglobin 6.6 *L Hematocrit 20.2 L Mean Corpuscular Volume 84.5 Mean Corpuscular Hemoglobin 27.6 L Mean Corpuscular Hemoglobin Concent 32.7 Red Cell Distribution Width 16.4 H Platelet Count 9 #*L Mean Platelet Volume 9.7 Neutrophils % 21.0 L Band Neutrophils % 4.0 Lymphocytes % 51.0 Monocytes % 16.0 H Eosinophils % Basophils % 3.0 H Metamyelocytes % 3.0 H Myelocytes % 2.0 H Nucleated Red Blood Cells % Neutrophils # 2.1 Lymphocytes # 5.0 H Monocytes # 1.6 H Eosinophils # Basophils # 0.3 H Metamyelocytes # 0.3 Myelocytes # 0.2 Nucleated Red Blood Cells # Differential Comment MANUAL DIFF Platelet Estimate PLT APPEAR DECREASED Large Platelets OCCASIONAL Giant Platelets RARE Sodium Level 136 Potassium Level 4.1 Chloride Level 101 Carbon Dioxide Level 27 Anion Gap 12 Blood Urea Nitrogen 46 H Creatinine 1.40 H Glucose Level 105 Calcium Level 8.2 L Magnesium Level 1.9 Medications Medications Current Medications Ondansetron HCl (Zofran Inj) 4 mg Q6H PRN IV NAUSEA AND/OR VOMITING Last administered on 02/01/17t 10:50; Admin Dose 4 MG; Start 01/31/17 at 17:00 Acetaminophen (Tylenol Tab) 650 mg Q6H PRN PO PAIN LEVEL 1-3 OR FEVER; Start at 17:00 Acetaminophen (Tylenol Supp) 650 mg Q6H PRN [place] PAIN LEVEL 1-3 OR FEVER; Start 01/31/17 at 17:00 Acetaminophen/ Hydrocodone Bitart ([place] (5/325)) 1 tab Q6H PRN PO MODERATE PAIN LEVEL 4-6 Last administered on 02/02/17 10:17; Admin Dose 1 TAB; Start at 17:00 Acetaminophen/ Hydrocodone Bitart ([place] (5/325)) 2 tab Q6H PRN PO SEVERE PAIN LEVEL 7-10; Start 01/31/17 at 17:00 Morphine Sulfate (morphine) 2 mg Q4H PRN IV SEVERE PAIN LEVEL 7-10; Start 01/31 at 17:00 Docusate Sodium (Colace) 100 mg Q12H PRN PO CONSTIPATION Last administered on 05:58; Admin Dose 100 MG; Start 01/31/17 at 17:00 Magnesium Hydroxide (Milk Of Mag) 30 ml DAILY PRN PO CONSTIPATION; Start at 17:00 Bisacodyl (Dulcolax Supp) 10 mg DAILY PRN [place] CONSTIPATION; Start 01/31/17 at 17 :00 Furosemide (Lasix) 20 mg DAILY@06 PO Last administered on 02/07/17 06:04; Admin Dose 20 MG; Start 02/01/17 at 06:00 Metoprolol Tartrate (Lopressor) 25 mg BID PO Last administered on 02/08/17 21: 44; Admin Dose 25 MG; Start 01/31/17 at 21:00 Potassium Chloride 8 meq 8 meq DAILY PO Last administered on 02/09/17 09:10; Admin Dose 8 MEQ; Start 02/01/17 at 09:00 Ceftriaxone Sodium 50 ml @ 100 mls/hr DAILY@20 IVPB Last administered on 21:44; Admin Dose 100 MLS/HR; Start 01/31/17 at 20:00 Azithromycin (Zithromax 500mg/ NS (Pmx)) 250 ml @ 250 mls/hr DAILY@18 IVPB Last administered on 02/08/17 18:44; Admin Dose 250 MLS/HR; Start 01/31/17 at 18:00 Albuterol/ Ipratropium (Duoneb) 3 ml Q4 PRN HHN dyspnea Last administered on 13:04; Admin Dose 3 ML; Start 01/31/17 at 17:00 Levothyroxine Sodium (Synthroid) 50 mcg DAILY@06 PO Last administered on 06:12; Admin Dose 50 MCG; Start 02/02/17 at 06:00 Collagenase (Santyl) 1 applic DAILY TOP Last administered on 02/09/17 09:12; Admin Dose 1 APPLIC; Start 02/08/17 at 09:00 Pantoprazole (Protonix Iv) 40 mg BID@,18 IV Last administered on 02/09/17 06 :12; Admin Dose 40 MG; Start 02/08/17 at 18:00 REJI PEREZ NP Feb 09, 2017 12:12
--- NOTE | 2017-02-09 14:22 | CONS ---
Date/Time of Note Date/Time of Note DATE: 02/09/17 TIME: 14:20 Assessment/Plan Assessment/Plan Chief Complaint/Hosp Course Mr. Hernandes is a 71-year-old Moroccan speaking male that is currently hospitalized for treatment for acute anemia. Per notes from Dr. Pryor:"The patient has an underlying high grade myelodysplastic syndrome. 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 Again, I emphasize this is not chronic myelogenous leukemia but chronic myelomonocytic leukemia which is a much more aggressive hematologic malignancy." Patient continues to have episodes of hemoptysis, epistaxis, and hematemesis during hospitalization in addition to several transfusions of red blood cells and platelets. At present, endoscopic evaluation not recommended; however may be required in the future. Patient and advised of risks/benefits/alternatives to procedure with [place]occan air compressor engineer and they both provide informed consent to proceed with endoscopic evaluation if clinically indicated. Problems: Additional Assessment/Plan Severe thrombocytopenia Platelet transfusion per HemeOnc recommendation Continue RBC transfusions as needed Acute anemia Secondary to above Bedside report of epistaxis, hemoptysis, hematemesis Monitor H&H every 8 hours, transfuse 2 units for hemoglobin less than 7.5 Monitor labs Continue PPI therapy EGD tomorrow afternoon, pt and patient's son advised of R/B/A to procedure and both provide informed consent to proceed History of chronic myelogenous leukemia Myelodysplastic syndrome, causing thrombocytopenia and anemia HemeOnc following Congestive heart failure Pulmonary hypertension Further recommendations depend on clinical course Patient seen in collaboration with Dr. Kovacs Consultation Date/Type/Reason Admit Date/Time Jan 31, 2017 at 14:31 Initial Consult Date Type of Consultation: Gastroenterology Referring Provider: DUNIA BECKWITH 24 HR Interval Summary Free Text/Dictation Patient continues to have drop in hemoglobin and platelets Dr. Pryor and Dr. Kovacs following agreement of endoscopic evaluation with possible ligation of active bleeding if indicated Patient's son and patient advised of procedure and both provide informed consent for procedure tomorrow evening with Dr. Kovacs Exam/Review of Systems Vital Signs Vitals Vital Signs Date Time Temp Pulse Resp B/P Pulse Ox O2 Delivery O2 Flow Rate FiO2 02/09/17 12:16 85 02/09/17 12:01 98.2 20 103/57 96 02/09/17 07:40 Nasal Cannula 2.0 Intake and Output 02/08/17 02/08/17 02/09/17 14:59 22:59 06:59 Intake Total 500 ml 450 ml Output Total 400 ml Balance 100 ml 450 ml Exam Constitutional: alert, oriented, cachectic Psych: nl mood/affect Head: normocephalic Eyes: EOMI, nl conjunctiva, nl lids ENMT: nl external ears & nose, nl lips & teeth, nl nasal mucosa & septum Respiratory: clear to auscultation, normal air movement Cardiovascular: regular rate and rhythm Gastrointestinal: soft, non-tender Musculoskeletal: nl extremities to inspection Neurological: BUSINESS SERVICES ANALYST II-XII intact Results Result Diagram: 02/09/17 0709 02/09/17 0709 Results 24 hrs Laboratory Tests Test 02/09/17 07:09 White Blood Count 9.9 # Red Blood Count 2.39 L Hemoglobin 6.6 *L Hematocrit 20.2 L Mean Corpuscular Volume 84.5 Mean Corpuscular Hemoglobin 27.6 L Mean Corpuscular Hemoglobin Concent 32.7 Red Cell Distribution Width 16.4 H Platelet Count 9 #*L Mean Platelet Volume 9.7 Neutrophils % 21.0 L Band Neutrophils % 4.0 Lymphocytes % 51.0 Monocytes % 16.0 H Eosinophils % Basophils % 3.0 H Metamyelocytes % 3.0 H Myelocytes % 2.0 H Nucleated Red Blood Cells % Neutrophils # 2.1 Lymphocytes # 5.0 H Monocytes # 1.6 H Eosinophils # Basophils # 0.3 H Metamyelocytes # 0.3 Myelocytes # 0.2 Nucleated Red Blood Cells # Differential Comment MANUAL DIFF Platelet Estimate PLT APPEAR DECREASED Large Platelets OCCASIONAL Giant Platelets RARE Sodium Level 136 Potassium Level 4.1 Chloride Level 101 Carbon Dioxide Level 27 Anion Gap 12 Blood Urea Nitrogen 46 H Creatinine 1.40 H Glucose Level 105 Calcium Level 8.2 L Magnesium Level 1.9 Medications Medications Current Medications Ondansetron HCl (Zofran Inj) 4 mg Q6H PRN IV NAUSEA AND/OR VOMITING Last administered on 02/01/17t 10:50; Admin Dose 4 MG; Start 01/31/17 at 17:00 Acetaminophen (Tylenol Tab) 650 mg Q6H PRN PO PAIN LEVEL 1-3 OR FEVER; Start at 17:00 Acetaminophen (Tylenol Supp) 650 mg Q6H PRN [place] PAIN LEVEL 1-3 OR FEVER; Start 01/31/17 at 17:00 Acetaminophen/ Hydrocodone Bitart ([place] (5/325)) 1 tab Q6H PRN PO MODERATE PAIN LEVEL 4-6 Last administered on 02/02/17 10:17; Admin Dose 1 TAB; Start at 17:00 Acetaminophen/ Hydrocodone Bitart ([place] (5/325)) 2 tab Q6H PRN PO SEVERE PAIN LEVEL 7-10; Start 01/31/17 at 17:00 Morphine Sulfate (morphine) 2 mg Q4H PRN IV SEVERE PAIN LEVEL 7-10; Start 01/31 at 17:00 Docusate Sodium (Colace) 100 mg Q12H PRN PO CONSTIPATION Last administered on 05:58; Admin Dose 100 MG; Start 01/31/17 at 17:00 Magnesium Hydroxide (Milk Of Mag) 30 ml DAILY PRN PO CONSTIPATION; Start at 17:00 Bisacodyl (Dulcolax Supp) 10 mg DAILY PRN [place] CONSTIPATION; Start 01/31/17 at 17 :00 Furosemide (Lasix) 20 mg DAILY@06 PO Last administered on 02/07/17 06:04; Admin Dose 20 MG; Start 02/01/17 at 06:00 Metoprolol Tartrate (Lopressor) 25 mg BID PO Last administered on 02/08/17 21: 44; Admin Dose 25 MG; Start 01/31/17 at 21:00 Potassium Chloride 8 meq 8 meq DAILY PO Last administered on 02/09/17 09:10; Admin Dose 8 MEQ; Start 02/01/17 at 09:00 Ceftriaxone Sodium 50 ml @ 100 mls/hr DAILY@20 IVPB Last administered on 21:44; Admin Dose 100 MLS/HR; Start 01/31/17 at 20:00 Azithromycin (Zithromax 500mg/ NS (Pmx)) 250 ml @ 250 mls/hr DAILY@18 IVPB Last administered on 02/08/17 18:44; Admin Dose 250 MLS/HR; Start 01/31/17 at 18:00 Albuterol/ Ipratropium (Duoneb) 3 ml Q4 PRN HHN dyspnea Last administered on 13:04; Admin Dose 3 ML; Start 01/31/17 at 17:00 Levothyroxine Sodium (Synthroid) 50 mcg DAILY@06 PO Last administered on 06:12; Admin Dose 50 MCG; Start 02/02/17 at 06:00 Collagenase (Santyl) 1 applic DAILY TOP Last administered on 02/09/17 09:12; Admin Dose 1 APPLIC; Start 02/08/17 at 09:00 Pantoprazole (Protonix Iv) 40 mg BID@,18 IV Last administered on 02/09/17 06 :12; Admin Dose 40 MG; Start 02/08/17 at 18:00 WENDIE FERNANDEZ Feb 09, 2017 14:21
[2017-02-09 15:50] LABS: BILIRUBIN,INDIRECT 0.3 mg/dl (0-1.1); BILIRUBIN,TOTAL 0.3 mg/dl (0.2-1.3)
--- NOTE | 2017-02-09 16:57 | PN ---
DATE: 02/09/2017 SUBJECTIVE: Mr. Townsend is feeling well. He states he has had no more unusual bleeding. No hemop tysis, no epistaxis. He denies nausea, vomiting, abdominal pain. He has had no chest pain. OBJECTIVE VITAL SIGNS: Temperature 98.2, pulse 78 per minute and regular, respirations 20, blood pressure 103 /57, and pulse oximetry 96% on 2 liters by nasal cannula. SKIN: Pale with scattered ecchymoses and purpura. HEENT: No mucosal lesions. No scleral icterus. There is dried blood around the mouth. NECK: Supple, no jugular venous distention or thyroid enlargement. CHEST: Clear to auscultation and percussion. No rhonchi, wheezes, rales or rubs. NODES: No palpable adenopathy in any lymph node-bearing area. ABDOMEN: Soft. No masses or ascites. Spleen is palpable 4 cm below left costal margin in the ante rior axillary line. White count 9900, hemoglobin 6.6, hematocrit 20.2, and platelet count is 9000. ASSESSMENT: 1. Anemia and thrombocytopenia secondary to myelodysplastic syndrome. 2. Myelodysplastic syndrome. PLAN: The patient did receive 2 units of packed red blood cells yesterday. In spite of this, the p atient's hemoglobin has not increased. Although it has been felt that this has been due to epistaxi s, I am concerned that there actually is some other area of GI bleeding. This patient does apparent ly history of ulcer disease in the past and may have had a vagotomy and pyloroplasty in the past. In spite of my miss and I do feel this patient will need to undergo GI evaluation to determine if th ere is another bleeding source. The patient's platelet count yesterday did go up to 44,000 after receiving platelet transfusion, but now again back and 9000. He will require platelet transfusion prior to any procedures. Although t here has been no evidence in the past, I will reevaluate once again for possible hemolytic component to this patient's anemia. Dictated By: OPAL MOSES MD, SR/NTS Conf#: [id number] DID#: [id number]
--- NOTE | 2017-02-09 17:06 | CONS ---
Date/Time of Note Date/Time of Note DATE: 02/09/17 TIME: 17:04 Assessment/Plan Assessment/Plan Additional Assessment/Plan 1. Acute kidney injury, likely secondary to prerenal azotemia causing ischemic acute tubular necrosis. 2. h/o CKD Stage III due to medical morbidiites 3. History of chronic myeloid leukemia, on chemotherapy. 4. Thrombocytopenia severe 5. History of gastroesophageal reflux disease, history of chronic obstructive pulmonary disease. 6. History of recent last admission and had a very long complicated course including sepsis, acute hypoxemic respiratory failure, non-ST elevation myocardial infarctions and acute encephalopathy. Plan: Cr 1.4 BP stable, Hb dropped to 6.4, Plan for Transfusion as per PMD and hematology will continue to follow up Consultation Date/Type/Reason Admit Date/Time Jan 31, 2017 at 14:31 Initial Consult Date 01/31/2017 Type of Consultation: NEPHROLOGY Referring Provider: DUNIA BECKWITH Exam/Review of Systems Vital Signs Vitals Vital Signs Date Time Temp Pulse Resp B/P Pulse Ox O2 Delivery O2 Flow Rate FiO2 02/09/17 16:35 98.3 91 20 99/55 94 02/09/17 07:40 Nasal Cannula 2.0 Intake and Output 02/08/17 02/08/17 02/09/17 14:59 22:59 06:59 Intake Total 500 ml 450 ml Output Total 400 ml Balance 100 ml 450 ml Exam GENERAL: Awake but intermittently lethargic. HEENT: No jaundice. No scleral icterus. NECK: Supple, no lymphadenopathy. LUNGS: Decreased breath sounds at both lung bases with bibasilar rales. HEART: S1, S2, tachycardia, no murmur. ABDOMEN: Soft, nontender, nondistended. Bowel sounds are present. EXTREMITIES: No clubbing, cyanosis, edema. NEUROLOGICAL: The patient is alert, awake but not oriented to place and person. Cranial nerves II through XII intact. Motor strength is fine. Reflexes are normal. Results Result Diagram: 02/09/17 0709 02/09/17 0709 Results 24 hrs Laboratory Tests Test 02/09/17 07:09 02/09/17 15:10 White Blood Count 9.9 # Red Blood Count 2.39 L Hemoglobin 6.6 *L Hematocrit 20.2 L Mean Corpuscular Volume 84.5 Mean Corpuscular Hemoglobin 27.6 L Mean Corpuscular Hemoglobin Concent 32.7 Red Cell Distribution Width 16.4 H Platelet Count 9 #*L Mean Platelet Volume 9.7 Neutrophils % 21.0 L Band Neutrophils % 4.0 Lymphocytes % 51.0 Monocytes % 16.0 H Eosinophils % Basophils % 3.0 H Metamyelocytes % 3.0 H Myelocytes % 2.0 H Nucleated Red Blood Cells % Neutrophils # 2.1 Lymphocytes # 5.0 H Monocytes # 1.6 H Eosinophils # Basophils # 0.3 H Metamyelocytes # 0.3 Myelocytes # 0.2 Nucleated Red Blood Cells # Differential Comment MANUAL DIFF Platelet Estimate PLT APPEAR DECREASED Large Platelets OCCASIONAL Giant Platelets RARE Sodium Level 136 Potassium Level 4.1 Chloride Level 101 Carbon Dioxide Level 27 Anion Gap 12 Blood Urea Nitrogen 46 H Creatinine 1.40 H Glucose Level 105 Calcium Level 8.2 L Magnesium Level 1.9 Total Bilirubin 0.3 Direct Bilirubin 0.00 Indirect Bilirubin 0.3 Lactate Dehydrogenase 652 H Medications Medications Current Medications Ondansetron HCl (Zofran Inj) 4 mg Q6H PRN IV NAUSEA AND/OR VOMITING Last administered on 02/01/17 10:50; Admin Dose 4 MG; Start 01/31/17 at 17:00 Acetaminophen (Tylenol Tab) 650 mg Q6H PRN PO PAIN LEVEL 1-3 OR FEVER; Start at 17:00 Acetaminophen (Tylenol Supp) 650 mg Q6H PRN [place] PAIN LEVEL 1-3 OR FEVER; Start 01/31/17 at 17:00 Acetaminophen/ Hydrocodone Bitart ([place] (5/325)) 1 tab Q6H PRN PO MODERATE PAIN LEVEL 4-6 Last administered on 02/02/17 10:17; Admin Dose 1 TAB; Start at 17:00 Acetaminophen/ Hydrocodone Bitart ([place] (5/325)) 2 tab Q6H PRN PO SEVERE PAIN LEVEL 7-10; Start 01/31/17 at 17:00 Morphine Sulfate (morphine) 2 mg Q4H PRN IV SEVERE PAIN LEVEL 7-10; Start 01/31 at 17:00 Docusate Sodium (Colace) 100 mg Q12H PRN PO CONSTIPATION Last administered on 05:58; Admin Dose 100 MG; Start 01/31/17 at 17:00 Magnesium Hydroxide (Milk Of Mag) 30 ml DAILY PRN PO CONSTIPATION; Start at 17:00 Bisacodyl (Dulcolax Supp) 10 mg DAILY PRN [place] CONSTIPATION; Start 01/31/17 at 17 :00 Furosemide (Lasix) 20 mg DAILY@06 PO Last administered on 02/07/17 06:04; Admin Dose 20 MG; Start 02/01/17 at 06:00 Metoprolol Tartrate (Lopressor) 25 mg BID PO Last administered on 02/08/17 21: 44; Admin Dose 25 MG; Start 01/31/17 at 21:00 Potassium Chloride 8 meq 8 meq DAILY PO Last administered on 02/09/17 09:10; Admin Dose 8 MEQ; Start 02/01/17 at 09:00 Ceftriaxone Sodium 50 ml @ 100 mls/hr DAILY@20 IVPB Last administered on 21:44; Admin Dose 100 MLS/HR; Start 01/31/17 at 20:00 Azithromycin (Zithromax 500mg/ NS (Pmx)) 250 ml @ 250 mls/hr DAILY@18 IVPB Last administered on 02/08/17 18:44; Admin Dose 250 MLS/HR; Start 01/31/17 at 18:00 Albuterol/ Ipratropium (Duoneb) 3 ml Q4 PRN HHN dyspnea Last administered on 13:04; Admin Dose 3 ML; Start 01/31/17 at 17:00 Levothyroxine Sodium (Synthroid) 50 mcg DAILY@06 PO Last administered on 06:12; Admin Dose 50 MCG; Start 02/02/17 at 06:00 Collagenase (Santyl) 1 applic DAILY TOP Last administered on 02/09/17 09:12; Admin Dose 1 APPLIC; Start 02/08/17 at 09:00 Pantoprazole (Protonix Iv) 40 mg BID@06,18 IV Last administered on 02/09/17 06 :12; Admin Dose 40 MG; Start 02/08/17 at 18:00 GILL PEREIRA MD Feb 09, 2017 17:06
[2017-02-09] MEDS: AZITHROMYCIN 500MG/NS (PMX) 250 ML IVPB SCH (18:00)
[2017-02-09] MEDS: CEFTRIAXONE 2 GM/50 ML (PMX) 50 ML IVPB SCH (22:58)
[2017-02-10] VITALS (20 sets, daily range): BP systolic 102–139; BP diastolic 50–65; PULSE 69–103; RESP 14–20
[2017-02-10] MEDS: LEVOTHYROXINE 50 MCG TAB PO SCH (06:15)
[2017-02-10] MEDS: PANTOPRAZOLE 40 MG INJ IV SCH ×2 (06:15→18:43)
[2017-02-10] MEDS: FUROSEMIDE 20 MG TAB PO SCH (06:15)
[2017-02-10 07:09] LABS: ADD SCAN DIFF NO
[2017-02-10 07:14] LABS: ABNORMAL IP MESSAGE 1; HEMATOCRIT 25.6 % (42.0-52.0); HEMOGLOBIN 8.4 g/dl (14.0-18.0); MEAN CORPUSCULAR HGB CONC 32.8 g/dl (32.0-37.0); MEAN CORPUSCULAR VOLUME 85.3 fl (82.0-101.0); MEAN PLATELET VOLUME 9.9 fl (7.4-10.4); RED CELL DISTRIBUTION WIDTH 15.3 % (11.5-14.5); WHITE BLOOD COUNT 11.3 10^3/ul (4.8-10.8)
[2017-02-10 07:20] LABS: PLATELET COUNT 6 10^3/UL (140-415)
[2017-02-10 07:25] LABS: INR 1.18; PROTIME 15.1 Sec (12.2-14.2); PT RATIO 1.2
[2017-02-10 07:26] LABS: PARTIAL THROMBOPLASTIN TIME 33.6 Sec (25.0-35.0)
[2017-02-10 07:32] LABS: CREATININE 1.27 mg/dl (0.61-1.24); MAGNESIUM 1.7 mg/dl (1.7-2.5); PHOSPHORUS 5.8 mg/dl (2.5-4.9)
[2017-02-10] MEDS: POTASSIUM CHLORIDE (SR) 8 MEQ CAP PO SCH (08:59)
[2017-02-10] MEDS: METOPROLOL 25 MG TAB PO SCH ×2 (09:00→20:48)
[2017-02-10] MEDS: COLLAGENASE 30 GM TUBE TOP SCH (09:00)
[2017-02-10 09:44] LABS: BASOPHIL # 0.1 10^3/ul (0.0-0.1); EOSINOPHILS # 0.2 10^3/ul (0.0-0.5); LYMPHOCYTES # 2.3 10^3/ul (0.8-2.9); MYELOCYTES # 0.7; NEUTROPHIL # 3.5 10^3/ul (1.6-7.5)
--- NOTE | 2017-02-10 10:46 | CONS ---
Date/Time of Note Date/Time of Note DATE: 02/10/17 TIME: 10:44 Assessment/Plan Assessment/Plan Additional Assessment/Plan 1. Acute kidney injury, likely secondary to prerenal azotemia causing ischemic acute tubular necrosis. 2. h/o CKD Stage III due to medical morbidiites 3. History of chronic myeloid leukemia, on chemotherapy. 4. Thrombocytopenia severe 5. History of gastroesophageal reflux disease, history of chronic obstructive pulmonary disease. 6. History of recent last admission and had a very long complicated course including sepsis, acute hypoxemic respiratory failure, non-ST elevation myocardial infarctions and acute encephalopathy. Plan: Cr improved to 1.27, Hb 8.4, BP stable will continue to follow up Consultation Date/Type/Reason Admit Date/Time Jan 31, 2017 at 14:31 Initial Consult Date 01/31/2017 Type of Consultation: NEPHROLOGY Referring Provider: DUNIA BECKWITH 24 HR Interval Summary Free Text/Dictation Creatinine 1.27 improved, Hb stable, Bp stable, Exam/Review of Systems Vital Signs Vitals Vital Signs Date Time Temp Pulse Resp B/P Pulse Ox O2 Delivery O2 Flow Rate FiO2 02/10/17 08:23 103 02/10/17 07:51 Nasal Cannula 3.0 02/10/17 07:39 98.5 20 116/63 96 Intake and Output 02/09/17 02/09/17 02/10/17 15:00 23:00 07:00 Intake Total 600 ml Output Total 600 ml Balance 0 ml Exam GENERAL: Awake but intermittently lethargic. HEENT: No jaundice. No scleral icterus. NECK: Supple, no lymphadenopathy. LUNGS: Decreased breath sounds at both lung bases with bibasilar rales. HEART: S1, S2, tachycardia, no murmur. ABDOMEN: Soft, nontender, nondistended. Bowel sounds are present. EXTREMITIES: No clubbing, cyanosis, edema. NEUROLOGICAL: The patient is alert, awake but not oriented to place and person. Cranial nerves II through XII intact. Motor strength is fine. Reflexes are n Results Result Diagram: 02/10/17 0602/10/17 06 Results 24 hrs Laboratory Tests Test 02/09/17 15:10 02/10/17 06:05 Total Bilirubin 0.3 Direct Bilirubin 0.00 Indirect Bilirubin 0.3 Lactate Dehydrogenase 652 H White Blood Count 11.3 H Red Blood Count 3.00 #L Hemoglobin 8.4 #L Hematocrit 25.6 #L Mean Corpuscular Volume 85.3 Mean Corpuscular Hemoglobin 28.0 L Mean Corpuscular Hemoglobin Concent 32.8 Red Cell Distribution Width 15.3 H Platelet Count 6 #*L Mean Platelet Volume 9.9 Neutrophils % 31.0 L Band Neutrophils % 1.0 Lymphocytes % 20.0 Monocytes % 35.0 H Eosinophils % 2.0 Basophils % 1.0 Myelocytes % 6.0 H Promyelocytes % 3.0 H Blast Cells % 1.0 H Neutrophils # 3.5 Lymphocytes # 2.3 Monocytes # 4.0 H Eosinophils # 0.2 Basophils # 0.1 Myelocytes # 0.7 Promyelocytes # 0.3 Blastocytes # 0.1 Prothrombin Time 15.1 H Prothrombin Time Ratio 1.2 INR International Normalized Ratio 1.18 Activated Partial Thromboplast Time 33.6 Sodium Level 138 Potassium Level 4.0 Chloride Level 102 Carbon Dioxide Level 28 Anion Gap 12 Blood Urea Nitrogen 45 H Creatinine 1.27 H Glucose Level 100 Calcium Level 8.0 L Phosphorus Level 5.8 H Magnesium Level 1.7 Medications Medications Current Medications Ondansetron HCl (Zofran Inj) 4 mg Q6H PRN IV NAUSEA AND/OR VOMITING Last administered on 02/01/17 10:50; Admin Dose 4 MG; Start 01/31/17 at 17:00 Acetaminophen (Tylenol Tab) 650 mg Q6H PRN PO PAIN LEVEL 1-3 OR FEVER; Start at 17:00 Acetaminophen (Tylenol Supp) 650 mg Q6H PRN [place] PAIN LEVEL 1-3 OR FEVER; Start 01/31/17 at 17:00 Acetaminophen/ Hydrocodone Bitart ([place] (5/325)) 1 tab Q6H PRN PO MODERATE PAIN LEVEL 4-6 Last administered on 02/02/17 10:17; Admin Dose 1 TAB; Start at 17:00 Acetaminophen/ Hydrocodone Bitart ([place] (5/325)) 2 tab Q6H PRN PO SEVERE PAIN LEVEL 7-10; Start 01/31/17 at 17:00 Morphine Sulfate (morphine) 2 mg Q4H PRN IV SEVERE PAIN LEVEL 7-10; Start 01/31 at 17:00 Docusate Sodium (Colace) 100 mg Q12H PRN PO CONSTIPATION Last administered on 05:58; Admin Dose 100 MG; Start 01/31/17 at 17:00 Magnesium Hydroxide (Milk Of Mag) 30 ml DAILY PRN PO CONSTIPATION; Start at 17:00 Bisacodyl (Dulcolax Supp) 10 mg DAILY PRN [place] CONSTIPATION; Start 01/31/17 at 17 :00 Furosemide (Lasix) 20 mg DAILY@06 PO Last administered on 02/10/17 06:15; Admin Dose 20 MG; Start 02/01/17 at 06:00 Metoprolol Tartrate (Lopressor) 25 mg BID PO Last administered on 02/10/17 09: 00; Admin Dose 25 MG; Start 01/31/17 at 21:00 Potassium Chloride 8 meq 8 meq DAILY PO Last administered on 02/10/17 08:59; Admin Dose 8 MEQ; Start 02/01/17 at 09:00 Ceftriaxone Sodium 50 ml @ 100 mls/hr DAILY@20 IVPB Last administered on 22:58; Admin Dose 100 MLS/HR; Start 01/31/17 at 20:00 Azithromycin (Zithromax 500mg/ NS (Pmx)) 250 ml @ 250 mls/hr DAILY@18 IVPB Last administered on 02/08/17 18:44; Admin Dose 250 MLS/HR; Start 01/31/17 at 18:00 Albuterol/ Ipratropium (Duoneb) 3 ml Q4 PRN HHN dyspnea Last administered on 13:04; Admin Dose 3 ML; Start 01/31/17 at 17:00 Levothyroxine Sodium (Synthroid) 50 mcg DAILY@06 PO Last administered on 06:15; Admin Dose 50 MCG; Start 02/02/17 at 06:00 Collagenase (Santyl) 1 applic DAILY TOP Last administered on 02/10/17 09:00; Admin Dose 1 APPLIC; Start 02/08/17 at 09:00 Pantoprazole (Protonix Iv) 40 mg BID@06,18 IV Last administered on 02/10/17 06 :15; Admin Dose 40 MG; Start 02/08/17 at 18:00 GILL PEREIRA MD Feb 10, 2017 10:46
--- NOTE | 2017-02-10 14:26 | CONS ---
DATE OF ADMISSION: 01/31/2017 DATE OF CONSULTATION: 02/10/2017 HEMATOLOGY PROGRESS NOTE HISTORY OF PRESENT ILLNESS: Mr. Townsend has not had any further evidence of bleeding. He denies h emoptysis or epistaxis. Denies any abdominal pain. OBJECTIVE VITAL SIGNS: Temperature 98.5, pulse 82 per minute and regular, respirations 18, blood pressure 109 /64, pulse oximetry 95% on room air. SKIN: Pale with scattered ecchymoses and purpura. HEENT: No mucosal lesions. No scleral icterus. NECK: Supple, no jugular venous distention or thyroid enlargement. CHEST: Clear to auscultation and percussion. No rhonchi, wheezes, rales or rubs. NODES: No palpable lymphadenopathy in any lymph node bearing area. ABDOMEN: Soft, no masses, no ascites. There is palpable still 4 cm below the left costal [place] in the anterior axillary line. Bowel sounds are active. EXTREMITIES: No clubbing, edema or cyanosis. No palpable cords or Homans sign. LABORATORY DATA: White count 11,300. Hemoglobin 8.4, hematocrit 25.6, platelet count 6000. LDH is elevated at 625. Bilirubin total was 0.3, indirect 0.3. Haptoglobin is pending. ASSESSMENT: 1. 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 2. Bleeding secondary to thrombocytopenia. PLAN: The patient is to have upper GI endoscopy today. Will receive 2 units of platelets immediate ly prior to this procedure. Dictated By: OPAL MOSES MD SR/RADHA Conf#: [id number] DID#: [id number]
--- NOTE | 2017-02-10 15:31 | PN ---
Date/Time of Note Date/Time of Note DATE: 02/10/17 TIME: 15:22 Assessment/Plan VTE Prophylaxis VTE Prophylaxis Intervention: SCD's Lines/Catheters [facility] Saline Lock Urinary Cath still in place: No Assessment/Plan Chief Complaint/Hosp Course Assessment and plan 1. Epistaxis. Patient seen by ENT. Secondary to thrombocythemia. cont platelet replacement as needed 2. Hemoptysis . Secondary to thrombocytopenia. Patient ruled out for TB. Sales Program Manager following . Plan for EGD 3. Severe thrombocytopenia. Continue with dental practitioner recommendations. Blood products as needed 4. hx CML. cont with hematology recs 5. Suspect underlying HCAP. cont on abx 6. BLESSING. Improving at present. Avoid nephrotoxic medications 7. hx CHF (systolic dysfunction). cont optimization with cardiovascular medications 8. CArdiomyopathy. EF noted at 45-50% . cont on cardiac medications 9. History of pulmonary hypertension. Patient noted with pulmonary arterial pressure 42 mmHg. Continue on oxygen as needed 10. Anemia. Likely secondary to thrombocytopenia. prbc to be transfused as needed. Disposition and plan: Plan for EGD. Follow-up with geothermal system installer Discussed plan of care with Dr. Roman Problems: Subjective 24 Hr Interval Summary Free Text/Dictation no further reports hemoptysis Exam/Review of Systems Vital Signs Vitals Vital Signs Date Time Temp Pulse Resp B/P Pulse Ox O2 Delivery O2 Flow Rate FiO2 02/10/17 12:10 69 02/10/17 11:56 98.5 20 109/64 95 02/10/17 07:51 Nasal Cannula 3.0 Intake and Output 02/09/17 02/09/17 02/10/17 14:59 22:59 06:59 Intake Total 600 ml Output Total 600 ml Balance 0 ml Exam General: No acute signs or symptoms of distress Eyes: pupils equal round, Anicteric sclera Neck: Supple nontender, no JVD Cardiac: S1, S2 auscultated, regular rhythm and rate Pulmonary: diminished at lung bases GI: Abdomen soft nontender nondistended, bowel sounds active Extremities: No edema bilateral lower extremities Skin: Clean dry and intact Neurologic: Alert to person place and time and situation Results Result Diagram: 02/10/17 0605 02/10/17 0605 Results 24 hrs Laboratory Tests Test 02/10/17 06:05 White Blood Count 11.3 H Red Blood Count 3.00 #L Hemoglobin 8.4 #L Hematocrit 25.6 #L Mean Corpuscular Volume 85.3 Mean Corpuscular Hemoglobin 28.0 L Mean Corpuscular Hemoglobin Concent 32.8 Red Cell Distribution Width 15.3 H Platelet Count 6 #*L Mean Platelet Volume 9.9 Neutrophils % 31.0 L Band Neutrophils % 1.0 Lymphocytes % 20.0 Monocytes % 35.0 H Eosinophils % 2.0 Basophils % 1.0 Myelocytes % 6.0 H Promyelocytes % 3.0 H Blast Cells % 1.0 H Neutrophils # 3.5 Lymphocytes # 2.3 Monocytes # 4.0 H Eosinophils # 0.2 Basophils # 0.1 Myelocytes # 0.7 Promyelocytes # 0.3 Blastocytes # 0.1 Prothrombin Time 15.1 H Prothrombin Time Ratio 1.2 INR International Normalized Ratio 1.18 Activated Partial Thromboplast Time 33.6 Sodium Level 138 Potassium Level 4.0 Chloride Level 102 Carbon Dioxide Level 28 Anion Gap 12 Blood Urea Nitrogen 45 H Creatinine 1.27 H Glucose Level 100 Calcium Level 8.0 L Phosphorus Level 5.8 H Magnesium Level 1.7 Medications Medications Current Medications Ondansetron HCl (Zofran Inj) 4 mg Q6H PRN IV NAUSEA AND/OR VOMITING Last administered on 02/01/17 10:50; Admin Dose 4 MG; Start 01/31/17 at 17:00 Acetaminophen (Tylenol Tab) 650 mg Q6H PRN PO PAIN LEVEL 1-3 OR FEVER; Start at 17:00 Acetaminophen (Tylenol Supp) 650 mg Q6H PRN [place] PAIN LEVEL 1-3 OR FEVER; Start 01/31/17 at 17:00 Acetaminophen/ Hydrocodone Bitart ([place] (5/325)) 1 tab Q6H PRN PO MODERATE PAIN LEVEL 4-6 Last administered on 02/02/17 10:17; Admin Dose 1 TAB; Start at 17:00 Acetaminophen/ Hydrocodone Bitart ([place] (5/325)) 2 tab Q6H PRN PO SEVERE PAIN LEVEL 7-10; Start 01/31/17 at 17:00 Morphine Sulfate (morphine) 2 mg Q4H PRN IV SEVERE PAIN LEVEL 7-10; Start 01/31 at 17:00 Docusate Sodium (Colace) 100 mg Q12H PRN PO CONSTIPATION Last administered on 05:58; Admin Dose 100 MG; Start 01/31/17 at 17:00 Magnesium Hydroxide (Milk Of Mag) 30 ml DAILY PRN PO CONSTIPATION; Start at 17:00 Bisacodyl (Dulcolax Supp) 10 mg DAILY PRN [place] CONSTIPATION; Start 01/31/17 at 17 :00 Furosemide (Lasix) 20 mg DAILY@06 PO Last administered on 02/10/17 06:15; Admin Dose 20 MG; Start 02/01/17 at 06:00 Metoprolol Tartrate (Lopressor) 25 mg BID PO Last administered on 02/10/17 09: 00; Admin Dose 25 MG; Start 01/31/17 at 21:00 Potassium Chloride 8 meq 8 meq DAILY PO Last administered on 02/10/17 08:59; Admin Dose 8 MEQ; Start 02/01/17 at 09:00 Ceftriaxone Sodium 50 ml @ 100 mls/hr DAILY@20 IVPB Last administered on 22:58; Admin Dose 100 MLS/HR; Start 01/31/17 at 20:00 Azithromycin (Zithromax 500mg/ NS (Pmx)) 250 ml @ 250 mls/hr DAILY@18 IVPB Last administered on 02/08/17 18:44; Admin Dose 250 MLS/HR; Start 01/31/17 at 18:00 Albuterol/ Ipratropium (Duoneb) 3 ml Q4 PRN HHN dyspnea Last administered on 13:04; Admin Dose 3 ML; Start 01/31/17 at 17:00 Levothyroxine Sodium (Synthroid) 50 mcg DAILY@06 PO Last administered on 06:15; Admin Dose 50 MCG; Start 02/02/17 at 06:00 Collagenase (Santyl) 1 applic DAILY TOP Last administered on 02/10/17 09:00; Admin Dose 1 APPLIC; Start 02/08/17 at 09:00 Pantoprazole (Protonix Iv) 40 mg BID@06,18 IV Last administered on 02/10/17 06 :15; Admin Dose 40 MG; Start 02/08/17 at 18:00 CHARLY LAWRENCE Feb 10, 2017 15:31
--- NOTE | 2017-02-10 15:59 | CONS ---
Date/Time of Note Date/Time of Note DATE: 02/10/17 TIME: 15:57 Consult Date/Type/Reason Admit Date/Time Jan 31, 2017 at 14:31 Type of Consultation: pulmonary Ordering Provider: DUNIA BECKWITH Subjective Patient stable denies any shortness of breath Pending platelet transfusion and endoscopy Objective Vital Signs Date Time Temp Pulse Resp B/P Pulse Ox O2 Delivery O2 Flow Rate FiO2 02/10/17 15:56 97.6 70 20 102/50 96 02/10/17 07:51 Nasal Cannula 3.0 Intake and Output 02/09/17 02/09/17 02/10/17 15:00 23:00 07:00 Intake Total 600 ml Output Total 600 ml Balance 0 ml Exam GENERAL: Elderly [place] gentleman comfortable at rest VITAL SIGNS: per chart NECK: Supple. No JVD or lymphadenopathy. CARDIAC EXAM: S1, S2. No added sounds or murmurs. CHEST: clear bilaterally, No added sounds, rales or wheezes ABDOMEN: Soft, nontender. No guarding or rebound. EXTREMITIES: No cyanosis, clubbing or edema. NEUROLOGIC: Generalized weakness. No focal deficits. Results/Medications Result Diagram: 02/10/17 0602/10/17 0605 Results 24 hrs Laboratory Tests Test 02/10/17 06:05 White Blood Count 11.3 H Red Blood Count 3.00 #L Hemoglobin 8.4 #L Hematocrit 25.6 #L Mean Corpuscular Volume 85.3 Mean Corpuscular Hemoglobin 28.0 L Mean Corpuscular Hemoglobin Concent 32.8 Red Cell Distribution Width 15.3 H Platelet Count 6 #*L Mean Platelet Volume 9.9 Neutrophils % 31.0 L Band Neutrophils % 1.0 Lymphocytes % 20.0 Monocytes % 35.0 H Eosinophils % 2.0 Basophils % 1.0 Myelocytes % 6.0 H Promyelocytes % 3.0 H Blast Cells % 1.0 H Neutrophils # 3.5 Lymphocytes # 2.3 Monocytes # 4.0 H Eosinophils # 0.2 Basophils # 0.1 Myelocytes # 0.7 Promyelocytes # 0.3 Blastocytes # 0.1 Prothrombin Time 15.1 H Prothrombin Time Ratio 1.2 INR International Normalized Ratio 1.18 Activated Partial Thromboplast Time 33.6 Sodium Level 138 Potassium Level 4.0 Chloride Level 102 Carbon Dioxide Level 28 Anion Gap 12 Blood Urea Nitrogen 45 H Creatinine 1.27 H Glucose Level 100 Calcium Level 8.0 L Phosphorus Level 5.8 H Magnesium Level 1.7 Medications Current Medications Ondansetron HCl (Zofran Inj) 4 mg Q6H PRN IV NAUSEA AND/OR VOMITING Last administered on 02/01/17 10:50; Admin Dose 4 MG; Start 01/31/17 at 17:00 Acetaminophen (Tylenol Tab) 650 mg Q6H PRN PO PAIN LEVEL 1-3 OR FEVER; Start at 17:00 Acetaminophen (Tylenol Supp) 650 mg Q6H PRN [place] PAIN LEVEL 1-3 OR FEVER; Start 01/31/17 at 17:00 Acetaminophen/ Hydrocodone Bitart ([place] (5/325)) 1 tab Q6H PRN PO MODERATE PAIN LEVEL 4-6 Last administered on 02/02/17 10:17; Admin Dose 1 TAB; Start at 17:00 Acetaminophen/ Hydrocodone Bitart ([place] (5/325)) 2 tab Q6H PRN PO SEVERE PAIN LEVEL 7-10; Start 01/31/17 at 17:00 Morphine Sulfate (morphine) 2 mg Q4H PRN IV SEVERE PAIN LEVEL 7-10; Start 01/31 at 17:00 Docusate Sodium (Colace) 100 mg Q12H PRN PO CONSTIPATION Last administered on 05:58; Admin Dose 100 MG; Start 01/31/17 at 17:00 Magnesium Hydroxide (Milk Of Mag) 30 ml DAILY PRN PO CONSTIPATION; Start at 17:00 Bisacodyl (Dulcolax Supp) 10 mg DAILY PRN [place] CONSTIPATION; Start 01/31/17 at 17 :00 Furosemide (Lasix) 20 mg DAILY@06 PO Last administered on 02/10/17 06:15; Admin Dose 20 MG; Start 02/01/17 at 06:00 Metoprolol Tartrate (Lopressor) 25 mg BID PO Last administered on 02/10/17 09: 00; Admin Dose 25 MG; Start 01/31/17 at 21:00 Potassium Chloride 8 meq 8 meq DAILY PO Last administered on 02/10/17 08:59; Admin Dose 8 MEQ; Start 02/01/17 at 09:00 Ceftriaxone Sodium 50 ml @ 100 mls/hr DAILY@20 IVPB Last administered on 22:58; Admin Dose 100 MLS/HR; Start 01/31/17 at 20:00 Azithromycin (Zithromax 500mg/ NS (Pmx)) 250 ml @ 250 mls/hr DAILY@18 IVPB Last administered on 02/08/17 18:44; Admin Dose 250 MLS/HR; Start 01/31/17 at 18:00 Albuterol/ Ipratropium (Duoneb) 3 ml Q4 PRN HHN dyspnea Last administered on 13:04; Admin Dose 3 ML; Start 01/31/17 at 17:00 Levothyroxine Sodium (Synthroid) 50 mcg DAILY@06 PO Last administered on 06:15; Admin Dose 50 MCG; Start 02/02/17 at 06:00 Collagenase (Santyl) 1 applic DAILY TOP Last administered on 02/10/17 09:00; Admin Dose 1 APPLIC; Start 02/08/17 at 09:00 Pantoprazole (Protonix Iv) 40 mg BID@,18 IV Last administered on 02/10/17 06 :15; Admin Dose 40 MG; Start 02/08/17 at 18:00 Assessment/Plan Chief Complaint/Hosp Course Assessment 1. CML 2. Thrombocytopenia and anemia postchemotherapy 3. Recent epistaxis 4. Ruled out TB via AFBs 5. Pending endoscopy. Recommendations 1. Continue hematology oncology recommendations 2. Continue to monitor for hemoptysis although clinically improved 3. GI recommendations 4. Transfusion of platelets Disposition Consider family conference to discuss goals of care and management of thrombocytopenia Problems: SAMARA STRAUSS MD, [facility] Feb 10, 2017 15:59
[2017-02-10] MEDS ORDERED: FENTAnyl 50 MCG/ML VIAL ONE (17:40)
[2017-02-10] MEDS ORDERED: PROPOFOL 20 ML ONE (17:40)
[2017-02-10] MEDS: AZITHROMYCIN 500MG/NS (PMX) 250 ML IVPB SCH (18:43)
[2017-02-10] MEDS: CEFTRIAXONE 2 GM/50 ML (PMX) 50 ML IVPB SCH (20:47)
[2017-02-10] MEDS: SUCRALFATE 1 GM TAB PO SCH (20:48)
[2017-02-11] VITALS (12 sets, daily range): BP systolic 97–114; BP diastolic 51–62; PULSE 72–80; RESP 18–20
[2017-02-11] MEDS: FUROSEMIDE 20 MG TAB PO SCH (05:48)
[2017-02-11] MEDS: PANTOPRAZOLE 40 MG INJ IV SCH ×2 (05:48→17:26)
[2017-02-11] MEDS: LEVOTHYROXINE 50 MCG TAB PO SCH (05:48)
--- NOTE | 2017-02-11 06:19 | GILP ---
DATE OF PROCEDURE: 02/10/2017 PROCEDURE: Esophagogastroduodenoscopy with biopsies. BRIEF HISTORY AND INDICATIONS: The patient with evidence of gastrointestinal bleeding and also sign ificant thrombocytopenia. PREMEDICATION: Monitored anesthesia care by anesthesiologist. SURGEON: Darron Kovacs MD INSTRUMENT USED: Olympus panendoscope. TECHNIQUE: After informed consent, with the patient/relatives understanding the procedure, its indic ations, potential risks and complications, including but not limited to: allergic reaction, bleeding , perforation or infection, and after all pertinent questions were answered to the patients satisfac tion, the patient/relatives signed witnessed informed consent. Following this, premedication was administered slowly IV push under careful cardiovascular and respi ratory monitoring with pulse oximetry, automatic blood pressure and crabber. Once the sedative effect was achieved the patient was place in the left lateral decubitus, the panen doscope was introduced and advanced under visual control. Careful examination of the upper gastrointestinal tract, both on insertion as well as withdrawal of the instrument disclosed the following findings: ESOPHAGUS: The distal esophagus shows erythema and edema of the mucosa of a moderate degree. STOMACH: Upon entrance to the stomach, air was insufflated, the gastric rodriguez distended normally. There is significant erythema, edema, and hemorrhagic changes in the entire stomach. No definitive source of bleeding or any lesion amenable to endoscopic therapeutic intervention is no anitha. PYLORUS: The pylorus is deformed. DUODENUM: Shows erythema and edema of the mucosa. Again, no definitive lesion amenable to treatmen t is identified. The instrument was then withdrawn, the patient tolerated the procedure well and was transfer out of the endoscopy suite awake, and in good condition to continue recovery under observation IMPRESSION: 1. Distal esophagitis. 2. Severe hemorrhagic gastritis. 3. Duodenitis. PLAN: The patient will be continued on PPI twice a day. Carafate will be added to his regimen. No lesion amenable to endoscopic treatment identified. Dictated By: DARRON KOVACS MS/RADHA Conf#: [id number] DID#: [id number]
--- NOTE | 2017-02-11 08:26 | PN ---
Date/Time of Note Date/Time of Note DATE: 02/11/17 TIME: 08:24 Assessment/Plan VTE Prophylaxis VTE Prophylaxis Intervention: other (thrombocytopenia) Lines/Catheters IV Catheter Type (from Nrs): Saline Lock Urinary Cath still in place: No Assessment/Plan Assessment/Plan Pt had EGD which showed esophagitis, hemorrhagic gastritis and duodenitis. PPI' s to be continued. Pt is stable and comfortable but requires continued observation. Unfortunately there is no treatment for the MDS. Subjective 24 Hr Interval Summary Free Text/Dictation Pt is comfortable this morning. Exam/Review of Systems Vital Signs Vitals Vital Signs Date Time Temp Pulse Resp B/P Pulse Ox O2 Delivery O2 Flow Rate FiO2 02/11/17 08:10 98.4 74 18 114/62 94 02/11/17 07:38 Nasal Cannula 4.0 Intake and Output 02/10/17 02/10/17 02/11/17 15:00 23:00 07:00 Intake Total 194 ml 830 ml 200 ml Balance 194 ml 830 ml 200 ml Exam Constitutional: alert Psych: no complaints Head: normocephalic Eyes: nl conjunctiva, other (pallor) ENMT: nl external ears & nose Neck: supple Respiratory: clear to auscultation Cardiovascular: regular rate and rhythm Gastrointestinal: non-tender, soft Results Result Diagram: 02/10/1760402/10/17604 Medications Medications Current Medications Ondansetron HCl (Zofran Inj) 4 mg Q6H PRN IV NAUSEA AND/OR VOMITING Last administered on 02/01/17 10:50; Admin Dose 4 MG; Start 01/31/17 at 17:00 Acetaminophen (Tylenol Tab) 650 mg Q6H PRN PO PAIN LEVEL 1-3 OR FEVER; Start at 17:00 Acetaminophen (Tylenol Supp) 650 mg Q6H PRN [place] PAIN LEVEL 1-3 OR FEVER; Start 01/31/17 at 17:00 Acetaminophen/ Hydrocodone Bitart ([place] (5/325)) 1 tab Q6H PRN PO MODERATE PAIN LEVEL 4-6 Last administered on 02/02/17 10:17; Admin Dose 1 TAB; Start at 17:00 Acetaminophen/ Hydrocodone Bitart ([place] (5/325)) 2 tab Q6H PRN PO SEVERE PAIN LEVEL 7-10; Start 01/31/17 at 17:00 Morphine Sulfate (morphine) 2 mg Q4H PRN IV SEVERE PAIN LEVEL 7-10; Start 01/31 at 17:00 Docusate Sodium (Colace) 100 mg Q12H PRN PO CONSTIPATION Last administered on 05:58; Admin Dose 100 MG; Start 01/31/17 at 17:00 Magnesium Hydroxide (Milk Of Mag) 30 ml DAILY PRN PO CONSTIPATION; Start at 17:00 Bisacodyl (Dulcolax Supp) 10 mg DAILY PRN [place] CONSTIPATION; Start 01/31/17 at 17 :00 Furosemide (Lasix) 20 mg DAILY@06 PO Last administered on 02/11/17 05:48; Admin Dose 20 MG; Start 02/01/17 at 06:00 Metoprolol Tartrate (Lopressor) 25 mg BID PO Last administered on 02/10/17 09: 00; Admin Dose 25 MG; Start 01/31/17 at 21:00 Potassium Chloride 8 meq 8 meq DAILY PO Last administered on 02/10/17 08:59; Admin Dose 8 MEQ; Start 02/01/17 at 09:00 Ceftriaxone Sodium 50 ml @ 100 mls/hr DAILY@20 IVPB Last administered on 20:47; Admin Dose 100 MLS/HR; Start 01/31/17 at 20:00 Azithromycin (Zithromax 500mg/ NS (Pmx)) 250 ml @ 250 mls/hr DAILY@18 IVPB Last administered on 02/10/17 18:43; Admin Dose 250 MLS/HR; Start 01/31/17 at 18:00 Albuterol/ Ipratropium (Duoneb) 3 ml Q4 PRN HHN dyspnea Last administered on 13:04; Admin Dose 3 ML; Start 01/31/17 at 17:00 Levothyroxine Sodium (Synthroid) 50 mcg DAILY@06 PO Last administered on 05:48; Admin Dose 50 MCG; Start 02/02/17 at 06:00 Collagenase (Santyl) 1 applic DAILY TOP Last administered on 02/10/17 09:00; Admin Dose 1 APPLIC; Start 02/08/17 at 09:00 Pantoprazole (Protonix Iv) 40 mg BID@06,18 IV Last administered on 02/11/17 05 :48; Admin Dose 40 MG; Start 02/08/17 at 18:00 Sucralfate (Carafate) 1 gm QID PO Last administered on 02/10/17 20:48; Admin Dose 1 GM; Start 02/10/17 at 21:00 GONZALO MCDONALD MD Feb 11, 2017 08:26
[2017-02-11] MEDS: POTASSIUM CHLORIDE (SR) 8 MEQ CAP PO SCH (09:00)
[2017-02-11] MEDS: SUCRALFATE 1 GM TAB PO SCH ×4 (09:00→20:51)
[2017-02-11] MEDS: METOPROLOL 25 MG TAB PO SCH ×2 (09:00→20:51)
[2017-02-11] MEDS: COLLAGENASE 30 GM TUBE TOP SCH (09:01)
--- NOTE | 2017-02-11 09:58 | PN ---
Date/Time of Note Date/Time of Note DATE: 02/11/17 TIME: 09:44 Assessment/Plan VTE Prophylaxis VTE Prophylaxis Intervention: SCD's Lines/Catheters IV [facility]from [facility] Saline Lock Urinary Cath still in place: No Assessment/Plan Assessment/Plan * Assessment * Anemia Hemoglobin 8.4 * S/P EGD distal esophagitis,severe hemorrhagic gastritis,duodenitis * Thrombocytopenia Myelodysplastic syndrome Plan : continue medical management correct platelet and hgb per protocol Subjective 24 Hr Interval Summary Free Text/Dictation * course reviewed with nursing staff * patient seen and examined * 02/10/2017 S/P EGD : Distal esophagitis, Severe hemorrhagic gastritis Duodenitis. * latest hemoglobin 8.4 * tolerating diet,no melena nor hematocheizia Exam/Review of Systems Vital Signs Vitals Vital Signs Date Time Temp Pulse Resp B/P Pulse Ox O2 Delivery O2 Flow Rate FiO2 02/11/17 08:44 77 02/11/17 08:10 98.4 18 114/62 94 02/11/17 07:38 Nasal Cannula 4.0 Intake and Output 02/10/17 02/10/17 02/11/17 15:00 23:00 07:00 Intake Total 194 ml 830 ml 200 ml Balance 194 ml 830 ml 200 ml Exam Constitutional: alert Psych: no complaints Neck: supple Respiratory: clear to auscultation, normal air movement Cardiovascular: nl pulses, regular rate and rhythm Gastrointestinal: bowel sounds, non-tender, soft, No ascites, No rebound or guarding Musculoskeletal: nl extremities to inspection Neurological: nl speech Skin: rash or lesions Results Result Diagram: 02/10/1760402/10/17604 Medications Medications Current Medications Ondansetron HCl (Zofran Inj) 4 mg Q6H PRN IV NAUSEA AND/OR VOMITING Last administered on 02/01/17t 10:50; Admin Dose 4 MG; Start 01/31/17 at 17:00 Acetaminophen (Tylenol Tab) 650 mg Q6H PRN PO PAIN LEVEL 1-3 OR FEVER; Start at 17:00 Acetaminophen (Tylenol Supp) 650 mg Q6H PRN [place] PAIN LEVEL 1-3 OR FEVER; Start 01/31/17 at 17:00 Acetaminophen/ Hydrocodone Bitart ([place] (5/325)) 1 tab Q6H PRN PO MODERATE PAIN LEVEL 4-6 Last administered on 02/02/17 10:17; Admin Dose 1 TAB; Start at 17:00 Acetaminophen/ Hydrocodone Bitart ([place] (5/325)) 2 tab Q6H PRN PO SEVERE PAIN LEVEL 7-10; Start 01/31/17 at 17:00 Morphine Sulfate (morphine) 2 mg Q4H PRN IV SEVERE PAIN LEVEL 7-10; Start 01/31 at 17:00 Docusate Sodium (Colace) 100 mg Q12H PRN PO CONSTIPATION Last administered on 05:58; Admin Dose 100 MG; Start 01/31/17 at 17:00 Magnesium Hydroxide (Milk Of Mag) 30 ml DAILY PRN PO CONSTIPATION; Start at 17:00 Bisacodyl (Dulcolax Supp) 10 mg DAILY PRN [place] CONSTIPATION; Start 01/31/17 at 17 :00 Furosemide (Lasix) 20 mg DAILY@06 PO Last administered on 02/11/17 05:48; Admin Dose 20 MG; Start 02/01/17 at 06:00 Metoprolol Tartrate (Lopressor) 25 mg BID PO Last administered on 02/11/17 09: 00; Admin Dose 25 MG; Start 01/31/17 at 21:00 Potassium Chloride 8 meq 8 meq DAILY PO Last administered on 02/11/17 09:00; Admin Dose 8 MEQ; Start 02/01/17 at 09:00 Ceftriaxone Sodium 50 ml @ 100 mls/hr DAILY@20 IVPB Last administered on 20:47; Admin Dose 100 MLS/HR; Start 01/31/17 at 20:00 Azithromycin (Zithromax 500mg/ NS (Pmx)) 250 ml @ 250 mls/hr DAILY@18 IVPB Last administered on 02/10/17 18:43; Admin Dose 250 MLS/HR; Start 01/31/17 at 18:00 Albuterol/ Ipratropium (Duoneb) 3 ml Q4 PRN HHN dyspnea Last administered on 13:04; Admin Dose 3 ML; Start 01/31/17 at 17:00 Levothyroxine Sodium (Synthroid) 50 mcg DAILY@06 PO Last administered on 05:48; Admin Dose 50 MCG; Start 02/02/17 at 06:00 Collagenase (Santyl) 1 applic DAILY TOP Last administered on 02/11/17 09:01; Admin Dose 1 APPLIC; Start 02/08/17 at 09:00 Pantoprazole (Protonix Iv) 40 mg BID@,18 IV Last administered on 02/11/17 05 :48; Admin Dose 40 MG; Start 02/08/17 at 18:00 Sucralfate (Carafate) 1 gm QID PO Last administered on 02/11/17 09:00; Admin Dose 1 GM; Start 02/10/17 at 21:00 DARRON CAMP MD Feb 11, 2017 09:54
--- NOTE | 2017-02-11 10:36 | CONS ---
Date/Time of Note Date/Time of Note DATE: 02/11/17 TIME: 10:34 Assessment/Plan Assessment/Plan Additional Assessment/Plan 1. Acute kidney injury, likely secondary to prerenal azotemia causing ischemic acute tubular necrosis. 2. h/o CKD Stage III due to medical morbidiites 3. History of chronic myeloid leukemia, on chemotherapy. 4. Thrombocytopenia severe 5. History of gastroesophageal reflux disease, history of chronic obstructive pulmonary disease. 6. History of recent last admission and had a very long complicated course including sepsis, acute hypoxemic respiratory failure, non-ST elevation myocardial infarctions and acute encephalopathy. Plan: Cr improved to 1.27 on yesterday labs, no labs today to review yet will continue to follow up Consultation Date/Type/Reason Admit Date/Time Jan 31, 2017 at 14:31 Initial Consult Date 01/31/2017 Type of Consultation: NEPHROLOGY Referring Provider: DUNIA BECKWITH 24 HR Interval Summary Free Text/Dictation NO labs today to review yet,BP stable, no acute events overnight Exam/Review of Systems Vital Signs Vitals Vital Signs Date Time Temp Pulse Resp B/P Pulse Ox O2 Delivery O2 Flow Rate FiO2 02/11/17 08:44 77 02/11/17 08:10 98.4 18 114/62 94 02/11/17 07:38 Nasal Cannula 4.0 Intake and Output 02/10/17 02/10/17 02/11/17 15:00 23:00 07:00 Intake Total 194 ml 830 ml 200 ml Balance 194 ml 830 ml 200 ml Exam GENERAL: Awake HEENT: No jaundice. pallor + NECK: Supple, no lymphadenopathy. LUNGS: Decreased breath sounds at both lung bases with bibasilar rales. HEART: S1, S2, tachycardia, no murmur. ABDOMEN: Soft, nontender, nondistended. Bowel sounds are present. Results Result Diagram: 02/10/1760402/10/17 06 Results 24 hrs Laboratory Tests Test 02/10/17 13:22 Haptoglobin <15 L Medications Medications Current Medications Ondansetron HCl (Zofran Inj) 4 mg Q6H PRN IV NAUSEA AND/OR VOMITING Last administered on 02/01/17t 10:50; Admin Dose 4 MG; Start 01/31/17 at 17:00 Acetaminophen (Tylenol Tab) 650 mg Q6H PRN PO PAIN LEVEL 1-3 OR FEVER; Start at 17:00 Acetaminophen (Tylenol Supp) 650 mg Q6H PRN [place] PAIN LEVEL 1-3 OR FEVER; Start 01/31/17 at 17:00 Acetaminophen/ Hydrocodone Bitart ([place] (5/325)) 1 tab Q6H PRN PO MODERATE PAIN LEVEL 4-6 Last administered on 02/02/17 10:17; Admin Dose 1 TAB; Start at 17:00 Acetaminophen/ Hydrocodone Bitart ([place] (5/325)) 2 tab Q6H PRN PO SEVERE PAIN LEVEL 7-10; Start 01/31/17 at 17:00 Morphine Sulfate (morphine) 2 mg Q4H PRN IV SEVERE PAIN LEVEL 7-10; Start 01/31 at 17:00 Docusate Sodium (Colace) 100 mg Q12H PRN PO CONSTIPATION Last administered on 05:58; Admin Dose 100 MG; Start 01/31/17 at 17:00 Magnesium Hydroxide (Milk Of Mag) 30 ml DAILY PRN PO CONSTIPATION; Start at 17:00 Bisacodyl (Dulcolax Supp) 10 mg DAILY PRN [place] CONSTIPATION; Start 01/31/17 at 17 :00 Furosemide (Lasix) 20 mg DAILY@06 PO Last administered on 02/11/17 05:48; Admin Dose 20 MG; Start 02/01/17 at 06:00 Metoprolol Tartrate (Lopressor) 25 mg BID PO Last administered on 02/11/17 09: 00; Admin Dose 25 MG; Start 01/31/17 at 21:00 Potassium Chloride 8 meq 8 meq DAILY PO Last administered on 02/11/17 09:00; Admin Dose 8 MEQ; Start 02/01/17 at 09:00 Ceftriaxone Sodium 50 ml @ 100 mls/hr DAILY@20 IVPB Last administered on 20:47; Admin Dose 100 MLS/HR; Start 01/31/17 at 20:00 Azithromycin (Zithromax 500mg/ NS (Pmx)) 250 ml @ 250 mls/hr DAILY@18 IVPB Last administered on 02/10/17 18:43; Admin Dose 250 MLS/HR; Start 01/31/17 at 18:00 Albuterol/ Ipratropium (Duoneb) 3 ml Q4 PRN HHN dyspnea Last administered on 13:04; Admin Dose 3 ML; Start 01/31/17 at 17:00 Levothyroxine Sodium (Synthroid) 50 mcg DAILY@06 PO Last administered on 05:48; Admin Dose 50 MCG; Start 02/02/17 at 06:00 Collagenase (Santyl) 1 applic DAILY TOP Last administered on 02/11/17 09:01; Admin Dose 1 APPLIC; Start 02/08/17 at 09:00 Pantoprazole (Protonix Iv) 40 mg BID@06,18 IV Last administered on 02/11/17 05 :48; Admin Dose 40 MG; Start 02/08/17 at 18:00 Sucralfate (Carafate) 1 gm QID PO Last administered on 02/11/17 09:00; Admin Dose 1 GM; Start 02/10/17 at 21:00 GILL PEREIRA MD Feb 11, 2017 10:36
--- NOTE | 2017-02-11 12:31 | CONS ---
Date/Time of Note Date/Time of Note DATE: 02/11/17 TIME: 12:30 Assessment/Plan Assessment/Plan Additional Assessment/Plan Assessment recommendations; 1. Patient admitted for severe bilateral pneumonia with respiratory failure no extubated several days ago with excellent overall clinical status. 2. History of CML with severe persistent thrombus cytopenia. 3. Alveolar hemorrhage with interval resolution. 4. History of renal insufficiency. Continue current treatment discontinue Zithromax and Rocephin. Give platelet transfusion. Prognosis remains very guarded. Consultation Date/Type/Reason Admit Date/Time Jan 31, 2017 at 14:31 Type of Consultation: Pulmonary Referring Provider: DUNIA BECKWITH 24 HR Interval Summary Free Text/Dictation Patient condition is stable. Denies any shortness of breath. Any cough. Complains of very scant hemoptysis. Denies any fever or chills. General exam; elderly male, currently in no distress, awake and alert. Exam/Review of Systems Vital Signs Vitals Vital Signs Date Time Temp Pulse Resp B/P Pulse Ox O2 Delivery O2 Flow Rate FiO2 02/11/17 11:51 98.5 65 18 106/58 99 02/11/17 07:38 Nasal Cannula 4.0 Intake and Output 02/10/17 02/10/17 02/11/17 15:00 23:00 07:00 Intake Total 194 ml 830 ml 200 ml Balance 194 ml 830 ml 200 ml Exam HEENT examination; supple neck, no JVD. No lymphadenopathy. Midline trachea. No thyromegaly. Pharynx is clear. Chest examination; diminished but clear breath sounds bilaterally. S1-S2 audible, no murmurs. Regular rhythm. Abdomen examination; soft, nontender. No organomegaly. Bowel sounds audible. Extremity examination; no peripheral edema. PLASTIC SURGERY MANAGER examination; no focal deficit. Results Result Diagram: 02/10/1760402/10/17 06 Results 24 hrs Laboratory Tests Test 02/10/17 13:22 Haptoglobin <15 L Medications Medications Current Medications Ondansetron HCl (Zofran Inj) 4 mg Q6H PRN IV NAUSEA AND/OR VOMITING Last administered on 02/01/17t 10:50; Admin Dose 4 MG; Start 01/31/17 at 17:00 Acetaminophen (Tylenol Tab) 650 mg Q6H PRN PO PAIN LEVEL 1-3 OR FEVER; Start at 17:00 Acetaminophen (Tylenol Supp) 650 mg Q6H PRN [place] PAIN LEVEL 1-3 OR FEVER; Start 01/31/17 at 17:00 Acetaminophen/ Hydrocodone Bitart ([place] (5/325)) 1 tab Q6H PRN PO MODERATE PAIN LEVEL 4-6 Last administered on 02/02/17 10:17; Admin Dose 1 TAB; Start at 17:00 Acetaminophen/ Hydrocodone Bitart ([place] (5/325)) 2 tab Q6H PRN PO SEVERE PAIN LEVEL 7-10; Start 01/31/17 at 17:00 Morphine Sulfate (morphine) 2 mg Q4H PRN IV SEVERE PAIN LEVEL 7-10; Start 01/31 at 17:00 Docusate Sodium (Colace) 100 mg Q12H PRN PO CONSTIPATION Last administered on 05:58; Admin Dose 100 MG; Start 01/31/17 at 17:00 Magnesium Hydroxide (Milk Of Mag) 30 ml DAILY PRN PO CONSTIPATION; Start at 17:00 Bisacodyl (Dulcolax Supp) 10 mg DAILY PRN [place] CONSTIPATION; Start 01/31/17 at 17 :00 Furosemide (Lasix) 20 mg DAILY@06 PO Last administered on 02/11/17 05:48; Admin Dose 20 MG; Start 02/01/17 at 06:00 Metoprolol Tartrate (Lopressor) 25 mg BID PO Last administered on 02/11/17 09: 00; Admin Dose 25 MG; Start 01/31/17 at 21:00 Potassium Chloride 8 meq 8 meq DAILY PO Last administered on 02/11/17 09:00; Admin Dose 8 MEQ; Start 02/01/17 at 09:00 Ceftriaxone Sodium 50 ml @ 100 mls/hr DAILY@20 IVPB Last administered on 20:47; Admin Dose 100 MLS/HR; Start 01/31/17 at 20:00 Azithromycin (Zithromax 500mg/ NS (Pmx)) 250 ml @ 250 mls/hr DAILY@18 IVPB Last administered on 02/10/17 18:43; Admin Dose 250 MLS/HR; Start 01/31/17 at 18:00 Albuterol/ Ipratropium (Duoneb) 3 ml Q4 PRN HHN dyspnea Last administered on 13:04; Admin Dose 3 ML; Start 01/31/17 at 17:00 Levothyroxine Sodium (Synthroid) 50 mcg DAILY@06 PO Last administered on 05:48; Admin Dose 50 MCG; Start 02/02/17 at 06:00 Collagenase (Santyl) 1 applic DAILY TOP Last administered on 02/11/17 09:01; Admin Dose 1 APPLIC; Start 02/08/17 at 09:00 Pantoprazole (Protonix Iv) 40 mg BID@06,18 IV Last administered on 02/11/17 05 :48; Admin Dose 40 MG; Start 02/08/17 at 18:00 Sucralfate (Carafate) 1 gm QID PO Last administered on 02/11/17 12:21; Admin Dose 1 GM; Start 02/10/17 at 21:00 MYESHA OLIVER Feb 11, 2017 12:31
[2017-02-11 13:06] LABS: ADD SCAN DIFF NO
[2017-02-11 13:14] LABS: ABNORMAL IP MESSAGE 1; BASOPHILS % 0.1 % (0.0-2.0); HEMATOCRIT 27.2 % (42.0-52.0); HEMOGLOBIN 9.1 g/dl (14.0-18.0); LYMPHOCYTES # 1.9 10^3/ul (0.8-2.9); LYMPHOCYTES % 15.8 % (15.0-51.0); MEAN CORPUSCULAR HEMOGLOBIN 29.1 pg (29.0-33.0); MEAN CORPUSCULAR HGB CONC 33.5 g/dl (32.0-37.0); MEAN CORPUSCULAR VOLUME 86.9 fl (82.0-101.0); MEAN PLATELET VOLUME 9.9 fl (7.4-10.4); MONOCYTE # 5.8 10^3/ul (0.3-0.9); MONOCYTES % 48.3 % (0.0-11.0); NEUTROPHIL # 3.5 10^3/ul (1.6-7.5); NEUTROPHILS % 29.5 % (39.0-77.0); NUCLEATED RED BLOOD CELLS # 0.1 10^3/ul (0.0-0.0); NUCLEATED RED BLOOD CELLS% 0.4 /100WBC (0.0-0.0); PLATELET COUNT 32 10^3/UL (140-415); RED BLOOD COUNT 3.13 10^6/ul (4.70-6.10); RED CELL DISTRIBUTION WIDTH 15.5 % (11.5-14.5)
[2017-02-11 13:30] LABS: POTASSIUM 3.8 mmol/L (3.5-5.1)
[2017-02-11 13:33] LABS: CREATININE 1.29 mg/dl (0.61-1.24)
--- NOTE | 2017-02-11 14:15 | PN ---
Date/Time of Note Date/Time of Note DATE: 02/11/17 TIME: 14:11 Assessment/Plan VTE Prophylaxis VTE Prophylaxis Intervention: SCD's Lines/Catheters IV Catheter Type (from [facility]): Saline Lock Urinary Cath still in place: No Assessment/Plan Chief Complaint/Hosp Course Assessment and plan 1. Epistaxis. Patient seen by ENT. Secondary to thrombocythemia. cont platelet replacement as needed . Little better today 2. Hemoptysis . Secondary to thrombocytopenia. Patient ruled out for TB. pulmonoloigst following . Status post EGD: With distal esophagitis and severe hemorrhagic gastritis. Also noted with duodenitis. Continue on PPI and Carafate. 3. Severe thrombocytopenia. Continue with filler leaf cutter long recommendations. Blood products as needed 4. hx CML and MDS. cont with hematology recs 5. Suspect underlying HCAP. cont on abx 6. BLESSING. Improving at present. Avoid nephrotoxic medications 7. hx CHF (systolic dysfunction). cont optimization with cardiovascular medications 8. CArdiomyopathy. EF noted at 45-50% . cont on cardiac medications 9. History of pulmonary hypertension. Patient noted with pulmonary arterial pressure 42 mmHg. Continue on oxygen as needed 10. Anemia. Likely secondary to thrombocytopenia. prbc to be transfused as needed. Disposition and plan: Patient status post EGD. Discussed with oncologist. Anemia ulcer secondary to hemorrhagic gastritis. Patient will still need inpatient monitoring due to frequent transfusions. We'll monitor for clinical improvement. Discussed plan of care with Dr. Roman Problems: Subjective 24 Hr Interval Summary Free Text/Dictation No apparent distress seen at this time. Exam/Review of Systems Vital Signs Vitals Vital Signs Date Time Temp Pulse Resp B/P Pulse Ox O2 Delivery O2 Flow Rate FiO2 02/11/17 12:28 72 02/11/17 11:51 98.5 18 106/58 99 02/11/17 07:38 Nasal Cannula 4.0 Intake and Output 02/10/17 02/10/17 02/11/17 15:00 23:00 07:00 Intake Total 194 ml 830 ml 200 ml Balance 194 ml 830 ml 200 ml Exam General: No acute signs or symptoms of distress, frail in appearance Eyes: Equal round. Is able to track Neck: Supple nontender, no JVD Cardiac: Remains in regular rate Pulmonary: No obvious wheezing or rhonchi GI: Abdomen soft nontender nondistended, bowel sounds active Extremities: No edema bilateral lower extremities today Skin: Clean dry and intact Neurologic: Alert to person place and time and situation Results Result Diagram: 02/11/17 1300 02/11/17 1300 Results 24 hrs Laboratory Tests Test 02/11/17 13:00 White Blood Count 12.0 H Red Blood Count 3.13 L Hemoglobin 9.1 L Hematocrit 27.2 L Mean Corpuscular Volume 86.9 Mean Corpuscular Hemoglobin 29.1 Mean Corpuscular Hemoglobin Concent 33.5 Red Cell Distribution Width 15.5 H Platelet Count 32 #L Mean Platelet Volume 9.9 Neutrophils % 29.5 L Lymphocytes % 15.8 Monocytes % 48.3 H Eosinophils % 0.0 Basophils % 0.1 Nucleated Red Blood Cells % 0.4 H Neutrophils # 3.5 Lymphocytes # 1.9 Monocytes # 5.8 H Eosinophils # 0.0 Basophils # 0.0 Nucleated Red Blood Cells # 0.1 H Sodium Level 136 Potassium Level 3.8 Chloride Level 99 Carbon Dioxide Level 28 Anion Gap 13 Blood Urea Nitrogen 37 H Creatinine 1.29 H Glucose Level 123 Calcium Level 8.0 L Medications Medications Current Medications Ondansetron HCl (Zofran Inj) 4 mg Q6H PRN IV NAUSEA AND/OR VOMITING Last administered on 02/01/17 10:50; Admin Dose 4 MG; Start 01/31/17 at 17:00 Acetaminophen (Tylenol Tab) 650 mg Q6H PRN PO PAIN LEVEL 1-3 OR FEVER; Start at 17:00 Acetaminophen (Tylenol Supp) 650 mg Q6H PRN [place] PAIN LEVEL 1-3 OR FEVER; Start 01/31/17 at 17:00 Acetaminophen/ Hydrocodone Bitart ([place] (5/325)) 1 tab Q6H PRN PO MODERATE PAIN LEVEL 4-6 Last administered on 02/02/17 10:17; Admin Dose 1 TAB; Start at 17:00 Acetaminophen/ Hydrocodone Bitart ([place] (5/325)) 2 tab Q6H PRN PO SEVERE PAIN LEVEL 7-10; Start 01/31/17 at 17:00 Morphine Sulfate (morphine) 2 mg Q4H PRN IV SEVERE PAIN LEVEL 7-10; Start 01/31 at 17:00 Docusate Sodium (Colace) 100 mg Q12H PRN PO CONSTIPATION Last administered on 05:58; Admin Dose 100 MG; Start 01/31/17 at 17:00 Magnesium Hydroxide (Milk Of Mag) 30 ml DAILY PRN PO CONSTIPATION; Start at 17:00 Bisacodyl (Dulcolax Supp) 10 mg DAILY PRN [place] CONSTIPATION; Start 01/31/17 at 17 :00 Furosemide (Lasix) 20 mg DAILY@06 PO Last administered on 02/11/17 05:48; Admin Dose 20 MG; Start 02/01/17 at 06:00 Metoprolol Tartrate (Lopressor) 25 mg BID PO Last administered on 02/11/17 09: 00; Admin Dose 25 MG; Start 01/31/17 at 21:00 Potassium Chloride (Micro-K) 8 meq DAILY PO Last administered on 02/11/17 09: 00; Admin Dose 8 MEQ; Start 02/01/17 at 09:00 Albuterol/ Ipratropium (Duoneb) 3 ml Q4 PRN HHN dyspnea Last administered on 13:04; Admin Dose 3 ML; Start 01/31/17 at 17:00 Levothyroxine Sodium (Synthroid) 50 mcg DAILY@06 PO Last administered on 05:48; Admin Dose 50 MCG; Start 02/02/17 at 06:00 Collagenase (Santyl) 1 applic DAILY TOP Last administered on 02/11/17 09:01; Admin Dose 1 APPLIC; Start 02/08/17 at 09:00 Pantoprazole (Protonix Iv) 40 mg BID@,18 IV Last administered on 02/11/17 05 :48; Admin Dose 40 MG; Start 02/08/17 at 18:00 Sucralfate (Carafate) 1 gm QID PO Last administered on 02/11/17 12:21; Admin Dose 1 GM; Start 02/10/17 at 21:00 CHARLY LAWRENCE Feb 11, 2017 14:15
--- NOTE | 2017-02-11 14:33 | CONS ---
DATE OF ADMISSION: 01/31/2017 DATE OF CONSULTATION: 02/11/2017 TYPE OF CONSULTATION: Palliative care HISTORY OF PRESENT ILLNESS: This is a 71-year-old gentleman well known to me from prior hospitaliza tion who presented at this time with epistaxis and hemoptysis. The patient has a history of chronic myelomonocytic leukemia, has been pancytopenic and thrombocytopenic prior to this hospitalization. He was recently discharged from [facility] after a month long stay for sepsis syn drome. Currently he is stable. He is on the medical/surgical floor being treated at this time for hospital-acquired pneumonia and is improving well. He denies nausea, vomiting, chest pain, shortnes s of breath, cough. There has been no diagnosis reoccurrence of epistaxis or hemoptysis. Reason fo r this consultation is establish a line of communication once again between family members and [facility] hcare team. MEDICATIONS: Please refer to reconciliation. ALLERGIES: NO KNOWN DRUG ALLERGIES. MAJOR MEDICAL PROBLEMS IN THE PAST: Once again including recent history of influenza pneumonia, adm itted to the intensive care unit, intubated at the time, successfully extubated, hypoxic respiratory failure with pneumonia and CHF complicated with an EF of 45%. History of dysphagia, history of non -ST myocardial infarction, history of myelomonocytic leukemia and chronic kidney disease. SOCIAL HISTORY: Nonsmoker, nondrinker. FAMILY HISTORY: Noncontributory to this hospitalization. REVIEW OF SYSTEMS: A 12-point review of system which I can obtain to some degree, patient speaks so me Sudanese, seems to be otherwise noncontributory, although is incomplete database for review of sys tems and language barrier. PHYSICAL EXAMINATION: GENERAL: Shows a somewhat emaciated-appearing gentleman who appears to be malnourished on examinati on and dehydrated. VITAL SIGNS: Blood pressure 106/58, pulse 65 and regular, respirations of 18, temperature 98.5 degr ees, 99% saturation on 4 liters. HEENT: Normocephalic and atraumatic. Anicteric, acyanotic on examination. CHEST: Shows bilateral clear breath sounds throughout both lung masters. COR: S1, S2, without S3, S4, murmur, gallop, rub. Normal rate, normal rhythm on examination. ABDOMEN: Grossly benign. LABORATORY DATA: White blood cell count 12.0, hemoglobin 9.1, hematocrit 27.2, MCV of 86.9, platele t count of 32,000. Platelet count on 02/10/2017 was 6000. Chemistries: Serum sodium 138, potassiu m 4.0, chloride 102, bicarbonate 28, BUN of 45, creatinine 1.27, blood sugar 100. ASSESSMENT AND PLAN: This gentleman has a history of chronic myelomonocytic leukemia. He has been seen and consulted upon by Dr. Pryor. Family members are not at the bedside at this time. My keena or experience with the family members were that they did not want to address his code status or ongo ing level of care last time I spoke to them and they did avoid me when the patient was in the intens angela care unit. I will make contact with them once again, but I will speak to Dr. Pryor insofar as treatment options. Dictated By: JUSTIN DANIELS MD, LP/RADHA Conf#: [id number] DID#: [id number]
[2017-02-12] VITALS (12 sets, daily range): BP systolic 110–122; BP diastolic 58–89; PULSE 71–83; RESP 17–20
[2017-02-12] MEDS: PANTOPRAZOLE 40 MG INJ IV SCH ×2 (05:51→17:44)
[2017-02-12] MEDS: LEVOTHYROXINE 50 MCG TAB PO SCH (05:52)
[2017-02-12] MEDS: FUROSEMIDE 20 MG TAB PO SCH (05:52)
[2017-02-12 07:21] LABS: ADD SCAN DIFF NO
[2017-02-12 07:29] LABS: ABNORMAL IP MESSAGE 1; BASOPHILS % 0.1 % (0.0-2.0); EOSINOPHILS # 0.1 10^3/ul (0.0-0.5); EOSINOPHILS % 0.7 % (0.0-7.0); HEMATOCRIT 26.8 % (42.0-52.0); HEMOGLOBIN 8.6 g/dl (14.0-18.0); LYMPHOCYTES # 1.7 10^3/ul (0.8-2.9); LYMPHOCYTES % 17.5 % (15.0-51.0); MEAN CORPUSCULAR HEMOGLOBIN 28.2 pg (29.0-33.0); MEAN CORPUSCULAR HGB CONC 32.1 g/dl (32.0-37.0); MEAN CORPUSCULAR VOLUME 87.9 fl (82.0-101.0); MEAN PLATELET VOLUME 9.3 fl (7.4-10.4); MONOCYTE # 4.4 10^3/ul (0.3-0.9); MONOCYTES % 44.9 % (0.0-11.0); NEUTROPHIL # 2.8 10^3/ul (1.6-7.5); NEUTROPHILS % 28.7 % (39.0-77.0); NUCLEATED RED BLOOD CELLS% 0.3 /100WBC (0.0-0.0); RED BLOOD COUNT 3.05 10^6/ul (4.70-6.10); RED CELL DISTRIBUTION WIDTH 15.4 % (11.5-14.5); WHITE BLOOD COUNT 9.9 10^3/ul (4.8-10.8)
[2017-02-12 07:35] LABS: PLATELET COUNT 21 10^3/UL (140-415)
[2017-02-12 07:42] LABS: POTASSIUM 3.9 mmol/L (3.5-5.1)
[2017-02-12 07:44] LABS: CREATININE 1.29 mg/dl (0.61-1.24)
[2017-02-12 07:45] LABS: CALCIUM 8.1 mg/dl (8.4-10.2)
[2017-02-12] MEDS: POTASSIUM CHLORIDE (SR) 8 MEQ CAP PO SCH (09:20)
[2017-02-12] MEDS: SUCRALFATE 1 GM TAB PO SCH ×4 (09:20→20:33)
[2017-02-12] MEDS: METOPROLOL 25 MG TAB PO SCH ×2 (09:21→20:33)
[2017-02-12] MEDS: COLLAGENASE 30 GM TUBE TOP SCH (09:22)
--- NOTE | 2017-02-12 09:49 | PN ---
Date/Time of Note Date/Time of Note DATE: 02/12/17 TIME: 09:46 Assessment/Plan VTE Prophylaxis VTE Prophylaxis Intervention: contraindicated VTE Contraindication Reason: thrombocytopenia Lines/Catheters IV [facility]ter Type [facility]from [facility] [place] Urinary Cath still in place: No Assessment/Plan Assessment/Plan Assessment * Anemia Hemoglobin 8.6 * S/P EGD distal esophagitis,severe hemorrhagic gastritis,duodenitis * Thrombocytopenia Myelodysplastic syndrome Plan : continue medical management correct hgb per protocol correction of platelets per hematology Subjective 24 Hr Interval Summary Free Text/Dictation * course reviewed with nursing staff * patient seen and examined * 02/10/2017 S/P EGD : Distal esophagitis, Severe hemorrhagic gastritis Duodenitis. * latest hemoglobin 8.6,platelet count 21 * tolerating diet,no melena nor hematochezia Exam/Review of Systems Vital Signs Vitals Vital Signs Date Time Temp Pulse Resp B/P Pulse Ox O2 Delivery O2 Flow Rate FiO2 02/12/17 08:14 71 02/12/17 08:03 98.3 20 122/68 96 02/12/17 04:33 3.0 02/11/17 20:58 Nasal Cannula Intake and Output 02/11/17 02/11/17 02/12/17 15:00 23:00 07:00 Intake Total 720 ml 250 ml Balance 720 ml 250 ml Exam Constitutional: alert, well developed Respiratory: clear to auscultation, normal air movement, No crackles/rales Cardiovascular: nl pulses, regular rate and rhythm Gastrointestinal: bowel sounds, nl liver, spleen, non-tender, soft Musculoskeletal: nl gait and stance Extremities: normal pulses Results Result Diagram: 02/12/17 0645 02/12/17 0645 Results 24 hrs Laboratory Tests Test 02/11/17 13:00 02/12/17 06:45 White Blood Count 12.0 H 9.9 Red Blood Count 3.13 L 3.05 L Hemoglobin 9.1 L 8.6 L Hematocrit 27.2 L 26.8 L Mean Corpuscular Volume 86.9 87.9 Mean Corpuscular Hemoglobin 29.1 28.2 L Mean Corpuscular Hemoglobin Concent 33.5 32.1 Red Cell Distribution Width 15.5 H 15.4 H Platelet Count 32 #L 21 #*L Mean Platelet Volume 9.9 9.3 Neutrophils % 29.5 L 28.7 L Lymphocytes % 15.8 17.5 Monocytes % 48.3 H 44.9 H Eosinophils % 0.0 0.7 Basophils % 0.1 0.1 Nucleated Red Blood Cells % 0.4 H 0.3 H Neutrophils # 3.5 2.8 Lymphocytes # 1.9 1.7 Monocytes # 5.8 H 4.4 H Eosinophils # 0.0 0.1 Basophils # 0.0 0.0 Nucleated Red Blood Cells # 0.1 H 0.0 Sodium Level 136 141 Potassium Level 3.8 3.9 Chloride Level 99 102 Carbon Dioxide Level 28 30 Anion Gap 13 13 Blood Urea Nitrogen 37 H 34 H Creatinine 1.29 H 1.29 H Glucose Level 123 111 Calcium Level 8.0 L 8.1 L Medications Medications Current Medications Ondansetron HCl (Zofran Inj) 4 mg Q6H PRN IV NAUSEA AND/OR VOMITING Last administered on 02/01/17 10:50; Admin Dose 4 MG; Start 01/31/17 at 17:00 Acetaminophen (Tylenol Tab) 650 mg Q6H PRN PO PAIN LEVEL 1-3 OR FEVER; Start at 17:00 Acetaminophen (Tylenol Supp) 650 mg Q6H PRN [place] PAIN LEVEL 1-3 OR FEVER; Start 01/31/17 at 17:00 Acetaminophen/ Hydrocodone Bitart ([place] (5/325)) 1 tab Q6H PRN PO MODERATE PAIN LEVEL 4-6 Last administered on 02/02/17 10:17; Admin Dose 1 TAB; Start at 17:00 Acetaminophen/ Hydrocodone Bitart ([place] (5/325)) 2 tab Q6H PRN PO SEVERE PAIN LEVEL 7-10; Start 01/31/17 at 17:00 Morphine Sulfate (morphine) 2 mg Q4H PRN IV SEVERE PAIN LEVEL 7-10; Start 01/31 at 17:00 Docusate Sodium (Colace) 100 mg Q12H PRN PO CONSTIPATION Last administered on 05:58; Admin Dose 100 MG; Start 01/31/17 at 17:00 Magnesium Hydroxide (Milk Of Mag) 30 ml DAILY PRN PO CONSTIPATION; Start at 17:00 Bisacodyl (Dulcolax Supp) 10 mg DAILY PRN [place] CONSTIPATION; Start 01/31/17 at 17 :00 Furosemide (Lasix) 20 mg DAILY@06 PO Last administered on 02/12/17 05:52; Admin Dose 20 MG; Start 02/01/17 at 06:00 Metoprolol Tartrate (Lopressor) 25 mg BID PO Last administered on 02/12/17 09: 21; Admin Dose 25 MG; Start 01/31/17 at 21:00 Potassium Chloride (Micro-K) 8 meq DAILY PO Last administered on 02/12/17 09: 20; Admin Dose 8 MEQ; Start 02/01/17 at 09:00 Albuterol/ Ipratropium (Duoneb) 3 ml Q4 PRN HHN dyspnea Last administered on 13:04; Admin Dose 3 ML; Start 01/31/17 at 17:00 Levothyroxine Sodium (Synthroid) 50 mcg DAILY@06 PO Last administered on 05:52; Admin Dose 50 MCG; Start 02/02/17 at 06:00 Collagenase (Santyl) 1 applic DAILY TOP Last administered on 02/12/17 09:22; Admin Dose 1 APPLIC; Start 02/08/17 at 09:00 Pantoprazole (Protonix Iv) 40 mg BID@,18 IV Last administered on 02/12/17 05 :51; Admin Dose 40 MG; Start 02/08/17 at 18:00 Sucralfate (Carafate) 1 gm QID PO Last administered on 02/12/17 09:20; Admin Dose 1 GM; Start 02/10/17 at 21:00 DARRON CAMP MD Feb 12, 2017 09:49
--- NOTE | 2017-02-12 10:02 | PN ---
DATE: 02/12/2017 SUBJECTIVE: The patient is not complaining of any abdominal pain, nausea, vomiting. Has had some c ough with nga sputum. OBJECTIVE: VITAL SIGNS: Temperature 98.3, pulse 77, respirations 20, blood pressure is 122/68, ox ygen saturatio pulse oximetry 96% on 3 liters. SKIN: Pale with scattered ecchymoses and purpura. HEENT: No mucosal lesions. No scleral icterus. NECK: Supple, no jugular venous distention or thyroid enlargement. CHEST: Clear to auscultation and percussion. No rhonchi, wheezes, rales or rubs. NODES: No palpable lymphadenopathy. HEART: Regular sinus rhythm, no S3, S4 or murmurs. ABDOMEN: Soft, no masses or ascites but liver is palpable 4 cm below left costal margin in the ante rior axillary line. EXTREMITIES: No clubbing, edema or cyanosis. No palpable cords or Homans sign. NEUROLOGIC: Normal. LABORATORY DATA: White count 9900 with 44% monocytes, an absolute monocyte count of 4400, hemoglobi n 8.6, hematocrit 28.6 and platelet count 21,000. The patient, on 02/10/2017, patient did a haptoglobin of less than 15, plasma free hemoglobin is sti ll pending. LDH was mildly elevated at 652. ASSESSMENT: 1. Gastrointestinal bleeding secondary to severe gastritis, complicated by thrombocytopenia. 2. 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 PLAN: The patient does have some evidence of hemolysis with low haptoglobin. We will repeat direct antiglobulin test as well as FLAER test for paroxysmal nocturnal hemoglobinuria. The latter has be en negative in the past but this could explain also a hemolytic process in this setting. Dictated By: OPAL MOSES MD SR/NTS Conf#: [id number] DID#: [id number]
--- NOTE | 2017-02-12 13:02 | CONS ---
Date/Time of Note Date/Time of Note DATE: 02/12/17 TIME: 13:01 Assessment/Plan Assessment/Plan Additional Assessment/Plan 1. Acute kidney injury, likely secondary to prerenal azotemia causing ischemic acute tubular necrosis. 2. h/o CKD Stage III due to medical morbidiites 3. History of chronic myeloid leukemia, on chemotherapy. 4. Thrombocytopenia severe 5. History of gastroesophageal reflux disease, history of chronic obstructive pulmonary disease. 6. History of recent last admission and had a very long complicated course including sepsis, acute hypoxemic respiratory failure, non-ST elevation myocardial infarctions and acute encephalopathy. Plan: Cr improved to 1.29 , Hb stable will continue to follow up Consultation Date/Type/Reason Admit Date/Time Jan 31, 2017 at 14:31 Initial Consult Date 01/31/2017 Type of Consultation: NEPHROLOGY Referring Provider: DUNIA BECKWITH Exam/Review of Systems Vital Signs Vitals Vital Signs Date Time Temp Pulse Resp B/P Pulse Ox O2 Delivery O2 Flow Rate FiO2 02/12/17 12:13 74 02/12/17 11:43 98.1 20 110/60 98 02/12/17 04:33 3.0 02/11/17 20:58 Nasal Cannula Intake and Output 02/11/17 02/11/17 02/12/17 15:00 23:00 07:00 Intake Total 720 ml 250 ml Balance 720 ml 250 ml Exam GENERAL: Awake HEENT: No jaundice. pallor + NECK: Supple, no lymphadenopathy. LUNGS: Decreased breath sounds at both lung bases with bibasilar rales. HEART: S1, S2, tachycardia, no murmur. ABDOMEN: Soft, nontender, nondistended. Bowel sounds are present. Results Result Diagram: 02/12/17 0645 02/12/17 0645 Results 24 hrs Laboratory Tests Test 02/12/17 06:45 White Blood Count 9.9 Red Blood Count 3.05 L Hemoglobin 8.6 L Hematocrit 26.8 L Mean Corpuscular Volume 87.9 Mean Corpuscular Hemoglobin 28.2 L Mean Corpuscular Hemoglobin Concent 32.1 Red Cell Distribution Width 15.4 H Platelet Count 21 #*L Mean Platelet Volume 9.3 Neutrophils % 28.7 L Lymphocytes % 17.5 Monocytes % 44.9 H Eosinophils % 0.7 Basophils % 0.1 Nucleated Red Blood Cells % 0.3 H Neutrophils # 2.8 Lymphocytes # 1.7 Monocytes # 4.4 H Eosinophils # 0.1 Basophils # 0.0 Nucleated Red Blood Cells # 0.0 Sodium Level 141 Potassium Level 3.9 Chloride Level 102 Carbon Dioxide Level 30 Anion Gap 13 Blood Urea Nitrogen 34 H Creatinine 1.29 H Glucose Level 111 Calcium Level 8.1 L Medications Medications Current Medications Ondansetron HCl (Zofran Inj) 4 mg Q6H PRN IV NAUSEA AND/OR VOMITING Last administered on 02/01/17 10:50; Admin Dose 4 MG; Start 01/31/17 at 17:00 Acetaminophen (Tylenol Tab) 650 mg Q6H PRN PO PAIN LEVEL 1-3 OR FEVER; Start at 17:00 Acetaminophen (Tylenol Supp) 650 mg Q6H PRN [place] PAIN LEVEL 1-3 OR FEVER; Start 01/31/17 at 17:00 Acetaminophen/ Hydrocodone Bitart ([place] (5/325)) 1 tab Q6H PRN PO MODERATE PAIN LEVEL 4-6 Last administered on 02/02/17 10:17; Admin Dose 1 TAB; Start at 17:00 Acetaminophen/ Hydrocodone Bitart ([place] (5/325)) 2 tab Q6H PRN PO SEVERE PAIN LEVEL 7-10; Start 01/31/17 at 17:00 Morphine Sulfate (morphine) 2 mg Q4H PRN IV SEVERE PAIN LEVEL 7-10; Start 01/31 at 17:00 Docusate Sodium (Colace) 100 mg Q12H PRN PO CONSTIPATION Last administered on 05:58; Admin Dose 100 MG; Start 01/31/17 at 17:00 Magnesium Hydroxide (Milk Of Mag) 30 ml DAILY PRN PO CONSTIPATION; Start at 17:00 Bisacodyl (Dulcolax Supp) 10 mg DAILY PRN [place] CONSTIPATION; Start 01/31/17 at 17 :00 Furosemide (Lasix) 20 mg DAILY@06 PO Last administered on 02/12/17 05:52; Admin Dose 20 MG; Start 02/01/17 at 06:00 Metoprolol Tartrate (Lopressor) 25 mg BID PO Last administered on 02/12/17 09: 21; Admin Dose 25 MG; Start 01/31/17 at 21:00 Potassium Chloride (Micro-K) 8 meq DAILY PO Last administered on 02/12/17 09: 20; Admin Dose 8 MEQ; Start 02/01/17 at 09:00 Albuterol/ Ipratropium (Duoneb) 3 ml Q4 PRN HHN dyspnea Last administered on 13:04; Admin Dose 3 ML; Start 01/31/17 at 17:00 Levothyroxine Sodium (Synthroid) 50 mcg DAILY@06 PO Last administered on 05:52; Admin Dose 50 MCG; Start 02/02/17 at 06:00 Collagenase (Santyl) 1 applic DAILY TOP Last administered on 02/12/17 09:22; Admin Dose 1 APPLIC; Start 02/08/17 at 09:00 Pantoprazole (Protonix Iv) 40 mg BID@06,18 IV Last administered on 02/12/17 05 :51; Admin Dose 40 MG; Start 02/08/17 at 18:00 Sucralfate (Carafate) 1 gm QID PO Last administered on 02/12/17 09:20; Admin Dose 1 GM; Start 02/10/17 at 21:00 GILL PEREIRA MD Feb 12, 2017 13:02
--- NOTE | 2017-02-12 14:03 | CONS ---
Date/Time of Note Date/Time of Note DATE: 02/12/17 TIME: 14:01 Consult Date/Type/Reason Admit Date/Time Jan 31, 2017 at 14:31 Type of Consultation: pulmonary Ordering Provider: DUNIA BECKWITH Subjective Patient remains unchanged no significant shortness of breath this morning Objective Vital Signs Date Time Temp Pulse Resp B/P Pulse Ox O2 Delivery O2 Flow Rate FiO2 02/12/17 12:13 74 02/12/17 11:43 98.1 20 110/60 98 02/12/17 04:33 3.0 02/11/17 20:58 Nasal Cannula Intake and Output 02/11/17 02/11/17 02/12/17 15:00 23:00 07:00 Intake Total 720 ml 250 ml Balance 720 ml 250 ml Exam PHYSICAL EXAMINATION GENERAL: Elderly gentleman comfortable at rest VITAL SIGNS: see below. HEENT: Pupils equal, round, and reactive to light. CARDIAC: S1, S2, tachycardia. CHEST: Diminished air entry bilaterally. ABDOMEN: Mildly distended. No bowel sounds. EXTREMITIES: No cyanosis, clubbing or edema. NEUROLOGIC: No focal deficits. Results/Medications Result Diagram: 02/12/17 0645 02/12/17 0645 Results 24 hrs Laboratory Tests Test 02/12/17 06:45 White Blood Count 9.9 Red Blood Count 3.05 L Hemoglobin 8.6 L Hematocrit 26.8 L Mean Corpuscular Volume 87.9 Mean Corpuscular Hemoglobin 28.2 L Mean Corpuscular Hemoglobin Concent 32.1 Red Cell Distribution Width 15.4 H Platelet Count 21 #*L Mean Platelet Volume 9.3 Neutrophils % 28.7 L Lymphocytes % 17.5 Monocytes % 44.9 H Eosinophils % 0.7 Basophils % 0.1 Nucleated Red Blood Cells % 0.3 H Neutrophils # 2.8 Lymphocytes # 1.7 Monocytes # 4.4 H Eosinophils # 0.1 Basophils # 0.0 Nucleated Red Blood Cells # 0.0 Sodium Level 141 Potassium Level 3.9 Chloride Level 102 Carbon Dioxide Level 30 Anion Gap 13 Blood Urea Nitrogen 34 H Creatinine 1.29 H Glucose Level 111 Calcium Level 8.1 L Medications Current Medications Ondansetron HCl (Zofran Inj) 4 mg Q6H PRN IV NAUSEA AND/OR VOMITING Last administered on 02/01/17t 10:50; Admin Dose 4 MG; Start 01/31/17 at 17:00 Acetaminophen (Tylenol Tab) 650 mg Q6H PRN PO PAIN LEVEL 1-3 OR FEVER; Start at 17:00 Acetaminophen (Tylenol Supp) 650 mg Q6H PRN [place] PAIN LEVEL 1-3 OR FEVER; Start 01/31/17 at 17:00 Acetaminophen/ Hydrocodone Bitart ([place] (5/325)) 1 tab Q6H PRN PO MODERATE PAIN LEVEL 4-6 Last administered on 02/02/17 10:17; Admin Dose 1 TAB; Start at 17:00 Acetaminophen/ Hydrocodone Bitart ([place] (5/325)) 2 tab Q6H PRN PO SEVERE PAIN LEVEL 7-10; Start 01/31/17 at 17:00 Morphine Sulfate (morphine) 2 mg Q4H PRN IV SEVERE PAIN LEVEL 7-10; Start 01/31 at 17:00 Docusate Sodium (Colace) 100 mg Q12H PRN PO CONSTIPATION Last administered on 05:58; Admin Dose 100 MG; Start 01/31/17 at 17:00 Magnesium Hydroxide (Milk Of Mag) 30 ml DAILY PRN PO CONSTIPATION; Start at 17:00 Bisacodyl (Dulcolax Supp) 10 mg DAILY PRN [place] CONSTIPATION; Start 01/31/17 at 17 :00 Furosemide (Lasix) 20 mg DAILY@06 PO Last administered on 02/12/17 05:52; Admin Dose 20 MG; Start 02/01/17 at 06:00 Metoprolol Tartrate (Lopressor) 25 mg BID PO Last administered on 02/12/17 09: 21; Admin Dose 25 MG; Start 01/31/17 at 21:00 Potassium Chloride (Micro-K) 8 meq DAILY PO Last administered on 02/12/17 09: 20; Admin Dose 8 MEQ; Start 02/01/17 at 09:00 Albuterol/ Ipratropium (Duoneb) 3 ml Q4 PRN HHN dyspnea Last administered on 13:04; Admin Dose 3 ML; Start 01/31/17 at 17:00 Levothyroxine Sodium (Synthroid) 50 mcg DAILY@06 PO Last administered on 05:52; Admin Dose 50 MCG; Start 02/02/17 at 06:00 Collagenase (Santyl) 1 applic DAILY TOP Last administered on 02/12/17 09:22; Admin Dose 1 APPLIC; Start 02/08/17 at 09:00 Pantoprazole (Protonix Iv) 40 mg BID@06,18 IV Last administered on 02/12/17 05 :51; Admin Dose 40 MG; Start 02/08/17 at 18:00 Sucralfate (Carafate) 1 gm QID PO Last administered on 02/12/17 13:22; Admin Dose 1 GM; Start 02/10/17 at 21:00 Assessment/Plan Chief Complaint/Hosp Course Assessment 1. CML 2. Thrombocytopenia and anemia postchemotherapy 3. Recent epistaxis possible alveolar hemorrhage 4. Ruled out TB via AFBs 5. Status post endoscopy findings noted Recommendations 1. Continue hematology oncology recommendations 2. Continue to monitor for hemoptysis although clinically improved 3. GI recommendations Disposition Consider transfer to [facility] surge Problems: SAM[facility] STRAUSS MD, [facility] Feb 12, 2017 14:03
--- NOTE | 2017-02-12 15:26 | PN ---
DATE: 02/12/2017 PALLIATIVE CARE PROGRESS NOTE I have had a conversation with Dr. Yousif Pryor who suggests only palliative care in the future. I will contact family members and schedule an appointment. My last interaction with them was that they wanted to do everything that was possible and did not want to address anything related to his c ode status when patient was critically ill in the intensive care unit. There are many extended fami ly members. The children are the ones who make the decisions on his behalf. Unfortunately, the las t hospitalization I did find out that they did not tell the patient his underlying diagnosis. Dictated By: JUSTIN DANILES MD LP/NTS Conf#: [id number] DID#: [id number]
--- NOTE | 2017-02-12 21:54 | PN ---
Date/Time of Note Date/Time of Note DATE: 02/12/17 TIME: 21:50 Assessment/Plan VTE Prophylaxis VTE Prophylaxis Intervention: SCD's Lines/Catheters IV [facility]ter [facility] (from [facility] Peripheral IV Urinary Cath still in place: No Assessment/Plan Chief Complaint/Hosp Course Assessment and plan 1. Epistaxis. Patient seen by ENT. Secondary to thrombocythemia. cont platelet replacement as needed 2. Hemoptysis . Secondary to thrombocytopenia. Patient ruled out for TB. Heel Seat Sander following . s/p EGD with: distal esophagitis,severe hemorrhagic gastritis,duodenitis. cont with GI recs 3. Severe thrombocytopenia. Continue with machine puller recommendations. Blood products as needed 4. hx CML. cont with hematology recs 5. Suspect underlying HCAP. cont on abx 6. BLESSING. Improving at present. Avoid nephrotoxic medications 7. hx CHF (systolic dysfunction). cont optimization with cardiovascular medications 8. CArdiomyopathy. EF noted at 45-50% . cont on cardiac medications 9. History of pulmonary hypertension. Patient noted with pulmonary arterial pressure 42 mmHg. Continue on oxygen as needed 10. Anemia. Likely secondary to thrombocytopenia. prbc to be transfused as needed. Disposition and plan: prognosis guarded. tentative plan for family meeting to discuss goals of care. Will follow up palliative care physician recs Discussed plan of care with Dr. Roman Problems: Subjective 24 Hr Interval Summary Free Text/Dictation comfortable at present.no s/s of distress. no reports of hemoptysis or epistaxis Exam/Review of Systems Vital Signs Vitals Vital Signs Date Time Temp Pulse Resp B/P Pulse Ox O2 Delivery O2 Flow Rate FiO2 02/12/17 20:21 98.5 82 17 120/58 97 02/12/17 08:49 Nasal Cannula 4.0 Intake and Output 02/11/17 02/11/17 02/12/17 15:00 23:00 07:00 Intake Total 720 ml 250 ml Balance 720 ml 250 ml Exam General: comfortable at present. no s/s of distress Eyes: Equal round. anicteric sclerae Neck: Supple nontender, no JVD Cardiac: Remains in regular rate still Pulmonary: No adventitious lung sounds GI: Abdomen soft nontender nondistended, bowel sounds active Extremities: No edema bilateral lower extremities todaystill Skin: Clean dry and intact Neurologic: Alert to person place and time and situation Results Result Diagram: 02/12/1745 02/12/17 0645 Results 24 hrs Laboratory Tests Test 02/12/17 06:45 White Blood Count 9.9 Red Blood Count 3.05 L Hemoglobin 8.6 L Hematocrit 26.8 L Mean Corpuscular Volume 87.9 Mean Corpuscular Hemoglobin 28.2 L Mean Corpuscular Hemoglobin Concent 32.1 Red Cell Distribution Width 15.4 H Platelet Count 21 #*L Mean Platelet Volume 9.3 Neutrophils % 28.7 L Lymphocytes % 17.5 Monocytes % 44.9 H Eosinophils % 0.7 Basophils % 0.1 Nucleated Red Blood Cells % 0.3 H Neutrophils # 2.8 Lymphocytes # 1.7 Monocytes # 4.4 H Eosinophils # 0.1 Basophils # 0.0 Nucleated Red Blood Cells # 0.0 Sodium Level 141 Potassium Level 3.9 Chloride Level 102 Carbon Dioxide Level 30 Anion Gap 13 Blood Urea Nitrogen 34 H Creatinine 1.29 H Glucose Level 111 Calcium Level 8.1 L Medications Medications Current Medications Ondansetron HCl (Zofran Inj) 4 mg Q6H PRN IV NAUSEA AND/OR VOMITING Last administered on 02/01/17 10:50; Admin Dose 4 MG; Start 01/31/17 at 17:00 Acetaminophen (Tylenol Tab) 650 mg Q6H PRN PO PAIN LEVEL 1-3 OR FEVER; Start at 17:00 Acetaminophen (Tylenol Supp) 650 mg Q6H PRN RI PAIN LEVEL 1-3 OR FEVER; Start 01/31/17 at 17:00 Acetaminophen/ Hydrocodone Bitart ([place] (5/325)) 1 tab Q6H PRN PO MODERATE PAIN LEVEL 4-6 Last administered on 02/02/17 10:17; Admin Dose 1 TAB; Start at 17:00 Acetaminophen/ Hydrocodone Bitart ([place] (5/325)) 2 tab Q6H PRN PO SEVERE PAIN LEVEL 7-10; Start 01/31/17 at 17:00 Morphine Sulfate (morphine) 2 mg Q4H PRN IV SEVERE PAIN LEVEL 7-10; Start 01/31 at 17:00 Docusate Sodium (Colace) 100 mg Q12H PRN PO CONSTIPATION Last administered on 05:58; Admin Dose 100 MG; Start 01/31/17 at 17:00 Magnesium Hydroxide (Milk Of Mag) 30 ml DAILY PRN PO CONSTIPATION; Start at 17:00 Bisacodyl (Dulcolax Supp) 10 mg DAILY PRN RI CONSTIPATION; Start 01/31/17 at 17 :00 Furosemide (Lasix) 20 mg DAILY@06 PO Last administered on 02/12/17 05:52; Admin Dose 20 MG; Start 02/01/17 at 06:00 Metoprolol Tartrate (Lopressor) 25 mg BID PO Last administered on 02/12/17 20: 33; Admin Dose 25 MG; Start 01/31/17 at 21:00 Potassium Chloride (Micro-K) 8 meq DAILY PO Last administered on 02/12/17 09: 20; Admin Dose 8 MEQ; Start 02/01/17 at 09:00 Albuterol/ Ipratropium (Duoneb) 3 ml Q4 PRN HHN dyspnea Last administered on 13:04; Admin Dose 3 ML; Start 01/31/17 at 17:00 Levothyroxine Sodium (Synthroid) 50 mcg DAILY@06 PO Last administered on 05:52; Admin Dose 50 MCG; Start 02/02/17 at 06:00 Collagenase (Santyl) 1 applic DAILY TOP Last administered on 02/12/17 09:22; Admin Dose 1 APPLIC; Start 02/08/17 at 09:00 Pantoprazole (Protonix Iv) 40 mg BID@06,18 IV Last administered on 02/12/17 17 :44; Admin Dose 40 MG; Start 02/08/17 at 18:00 Sucralfate (Carafate) 1 gm QID PO Last administered on 02/12/17 20:33; Admin Dose 1 GM; Start 02/10/17 at 21:00 CHARLY LAWRENCE Feb 12, 2017 21:54
[2017-02-13] VITALS (7 sets, daily range): BP systolic 109–121; BP diastolic 57–59; PULSE 73–86; RESP 16–18
[2017-02-13] MEDS: LEVOTHYROXINE 50 MCG TAB PO SCH (05:22)
[2017-02-13] MEDS: PANTOPRAZOLE 40 MG INJ IV SCH ×2 (05:22→17:21)
[2017-02-13] MEDS: FUROSEMIDE 20 MG TAB PO SCH (05:22)
[2017-02-13 08:01] LABS: ADD SCAN DIFF NO
[2017-02-13 08:10] LABS: ABNORMAL IP MESSAGE 1; EOSINOPHILS # 0.1 10^3/ul (0.0-0.5); EOSINOPHILS % 0.5 % (0.0-7.0); HEMATOCRIT 26.1 % (42.0-52.0); HEMOGLOBIN 8.4 g/dl (14.0-18.0); LYMPHOCYTES # 1.6 10^3/ul (0.8-2.9); LYMPHOCYTES % 17.1 % (15.0-51.0); MEAN CORPUSCULAR HEMOGLOBIN 28.1 pg (29.0-33.0); MEAN CORPUSCULAR HGB CONC 32.2 g/dl (32.0-37.0); MEAN CORPUSCULAR VOLUME 87.3 fl (82.0-101.0); MEAN PLATELET VOLUME 9.9 fl (7.4-10.4); MONOCYTE # 4.2 10^3/ul (0.3-0.9); MONOCYTES % 45.3 % (0.0-11.0); NEUTROPHIL # 2.8 10^3/ul (1.6-7.5); NEUTROPHILS % 30.2 % (39.0-77.0); NUCLEATED RED BLOOD CELLS% 0.2 /100WBC (0.0-0.0); RED BLOOD COUNT 2.99 10^6/ul (4.70-6.10); RED CELL DISTRIBUTION WIDTH 15.2 % (11.5-14.5); WHITE BLOOD COUNT 9.4 10^3/ul (4.8-10.8)
[2017-02-13 08:24] LABS: PLATELET COUNT 15 10^3/UL (140-415)
[2017-02-13 08:31] LABS: POTASSIUM 3.6 mmol/L (3.5-5.1)
[2017-02-13 08:34] LABS: CREATININE 1.32 mg/dl (0.61-1.24)
[2017-02-13 08:35] LABS: CALCIUM 8.1 mg/dl (8.4-10.2)
[2017-02-13] MEDS: SUCRALFATE 1 GM TAB PO SCH ×4 (09:27→20:36)
[2017-02-13] MEDS: POTASSIUM CHLORIDE (SR) 8 MEQ CAP PO SCH (09:27)
[2017-02-13] MEDS: METOPROLOL 25 MG TAB PO SCH ×2 (09:27→20:36)
[2017-02-13] MEDS: COLLAGENASE 30 GM TUBE TOP SCH (09:27)
--- NOTE | 2017-02-13 09:51 | PN ---
Date/Time of Note Date/Time of Note DATE: 02/13/17 TIME: 09:46 Assessment/Plan VTE Prophylaxis VTE Prophylaxis Intervention: contraindicated VTE Contraindication Reason: bleeding Lines/Catheters IV [facility] (from [facility]): Saline Lock Urinary Cath still in place: No Assessment/Plan Assessment/Plan Assessment * Anemia Hemoglobin 8.4 * S/P EGD distal esophagitis,severe hemorrhagic gastritis,duodenitis * Thrombocytopenia Myelodysplastic syndrome Plan : continue medical management correct hgb per protocol correction of platelets per hematology Subjective 24 Hr Interval Summary Free Text/Dictation * course reviewed with nurse * patient seen and examined * no hematemesis nor hematochezia * latest hemoglobin 8.4.platelet 15 * 02/10/2017 S/P EGD : Distal esophagitis, Severe hemorrhagic gastritis Duodenitis. Exam/Review of Systems Vital Signs Vitals Vital Signs Date Time Temp Pulse Resp B/P Pulse Ox O2 Delivery O2 Flow Rate FiO2 02/13/17 08:58 76 02/13/17 03:45 98.2 18 121/58 97 02/12/17 20:35 Nasal Cannula 2.0 Intake and Output 02/12/17 02/12/17 02/13/17 15:00 23:00 07:00 Intake Total 1080 ml Balance 1080 ml Exam Constitutional: alert Psych: no complaints Respiratory: clear to auscultation, normal air movement Cardiovascular: nl pulses, regular rate and rhythm Gastrointestinal: nl liver, spleen, non-tender, soft Musculoskeletal: nl extremities to inspection, nl gait and stance Results Result Diagram: 02/13/17 0629 02/13/17 0625 Results 24 hrs Laboratory Tests Test 02/13/17 06:25 02/13/17 06:29 Sodium Level 139 Potassium Level 3.6 Chloride Level 102 Carbon Dioxide Level 29 Anion Gap 12 Blood Urea Nitrogen 32 H Creatinine 1.32 H Glucose Level 113 Calcium Level 8.1 L White Blood Count 9.4 Red Blood Count 2.99 L Hemoglobin 8.4 L Hematocrit 26.1 L Mean Corpuscular Volume 87.3 Mean Corpuscular Hemoglobin 28.1 L Mean Corpuscular Hemoglobin Concent 32.2 Red Cell Distribution Width 15.2 H Platelet Count 15 #*L Mean Platelet Volume 9.9 Neutrophils % 30.2 L Lymphocytes % 17.1 Monocytes % 45.3 H Eosinophils % 0.5 Basophils % 0.0 Nucleated Red Blood Cells % 0.2 H Neutrophils # 2.8 Lymphocytes # 1.6 Monocytes # 4.2 H Eosinophils # 0.1 Basophils # 0.0 Nucleated Red Blood Cells # 0.0 Medications Medications Current Medications Ondansetron HCl (Zofran Inj) 4 mg Q6H PRN IV NAUSEA AND/OR VOMITING Last administered on 02/01/17 10:50; Admin Dose 4 MG; Start 01/31/17 at 17:00 Acetaminophen (Tylenol Tab) 650 mg Q6H PRN PO PAIN LEVEL 1-3 OR FEVER; Start at 17:00 Acetaminophen (Tylenol Supp) 650 mg Q6H PRN [place] PAIN LEVEL 1-3 OR FEVER; Start 01/31/17 at 17:00 Acetaminophen/ Hydrocodone Bitart ([place] (5/325)) 1 tab Q6H PRN PO MODERATE PAIN LEVEL 4-6 Last administered on 02/02/17 10:17; Admin Dose 1 TAB; Start at 17:00 Acetaminophen/ Hydrocodone Bitart ([place] (5/325)) 2 tab Q6H PRN PO SEVERE PAIN LEVEL 7-10; Start 01/31/17 at 17:00 Morphine Sulfate (morphine) 2 mg Q4H PRN IV SEVERE PAIN LEVEL 7-10; Start 01/31 at 17:00 Docusate Sodium (Colace) 100 mg Q12H PRN PO CONSTIPATION Last administered on 05:58; Admin Dose 100 MG; Start 01/31/17 at 17:00 Magnesium Hydroxide (Milk Of Mag) 30 ml DAILY PRN PO CONSTIPATION; Start at 17:00 Bisacodyl (Dulcolax Supp) 10 mg DAILY PRN [place] CONSTIPATION; Start 01/31/17 at 17 :00 Furosemide (Lasix) 20 mg DAILY@06 PO Last administered on 02/13/17 05:22; Admin Dose 20 MG; Start 02/01/17 at 06:00 Metoprolol Tartrate (Lopressor) 25 mg BID PO Last administered on 02/13/17 09: 27; Admin Dose 25 MG; Start 01/31/17 at 21:00 Potassium Chloride (Micro-K) 8 meq DAILY PO Last administered on 02/13/17 09: 27; Admin Dose 8 MEQ; Start 02/01/17 at 09:00 Albuterol/ Ipratropium (Duoneb) 3 ml Q4 PRN HHN dyspnea Last administered on 13:04; Admin Dose 3 ML; Start 01/31/17 at 17:00 Levothyroxine Sodium (Synthroid) 50 mcg DAILY@06 PO Last administered on 05:22; Admin Dose 50 MCG; Start 02/02/17 at 06:00 Collagenase (Santyl) 1 applic DAILY TOP Last administered on 02/13/17 09:27; Admin Dose 1 APPLIC; Start 02/08/17 at 09:00 Pantoprazole (Protonix Iv) 40 mg BID@06,18 IV Last administered on 02/13/17 05 :22; Admin Dose 40 MG; Start 02/08/17 at 18:00 Sucralfate (Carafate) 1 gm QID PO Last administered on 02/13/17 09:27; Admin Dose 1 GM; Start 02/10/17 at 21:00 DARRON CAMP MD Feb 13, 2017 09:51
--- NOTE | 2017-02-13 12:20 | CONS ---
Date/Time of Note Date/Time of Note DATE: 02/13/17 TIME: 12:18 Assessment/Plan Assessment/Plan Additional Assessment/Plan 1. Acute kidney injury, likely secondary to prerenal azotemia causing ischemic acute tubular necrosis. 2. h/o CKD Stage III due to medical morbidiites 3. History of chronic myeloid leukemia, on chemotherapy. 4. Thrombocytopenia severe 5. History of gastroesophageal reflux disease, history of chronic obstructive pulmonary disease. 6. History of recent last admission and had a very long complicated course including sepsis, acute hypoxemic respiratory failure, non-ST elevation myocardial infarctions and acute encephalopathy. Plan: Cr improved to 1.32 ,good urine output will continue to follow up Consultation Date/Type/Reason Admit Date/Time Jan 31, 2017 at 14:31 Initial Consult Date 01/31/2017 Type of Consultation: NEPHROLOGY Referring Provider: DUNIA BECKWITH 24 HR Interval Summary Free Text/Dictation Cr 1.3, stable, Hb 8.4 Exam/Review of Systems Vital Signs Vitals Vital Signs Date Time Temp Pulse Resp B/P Pulse Ox O2 Delivery O2 Flow Rate FiO2 02/13/17 08:58 76 02/13/17 03:45 98.2 18 121/58 97 02/12/17 20:35 Nasal Cannula 2.0 Intake and Output 02/12/17 02/12/17 02/13/17 15:00 23:00 07:00 Intake Total 1080 ml Balance 1080 ml Exam GENERAL: Awake HEENT: No jaundice. pallor + NECK: Supple, no lymphadenopathy. LUNGS: Decreased breath sounds at both lung bases with bibasilar rales. HEART: S1, S2, tachycardia, no murmur. ABDOMEN: Soft, nontender, nondistended. Bowel sounds are present. Results Result Diagram: 02/13/17 0629 02/13/17 0625 Results 24 hrs Laboratory Tests Test 02/13/17 06:25 02/13/17 06:29 Sodium Level 139 Potassium Level 3.6 Chloride Level 102 Carbon Dioxide Level 29 Anion Gap 12 Blood Urea Nitrogen 32 H Creatinine 1.32 H Glucose Level 113 Calcium Level 8.1 L White Blood Count 9.4 Red Blood Count 2.99 L Hemoglobin 8.4 L Hematocrit 26.1 L Mean Corpuscular Volume 87.3 Mean Corpuscular Hemoglobin 28.1 L Mean Corpuscular Hemoglobin Concent 32.2 Red Cell Distribution Width 15.2 H Platelet Count 15 #*L Mean Platelet Volume 9.9 Neutrophils % 30.2 L Lymphocytes % 17.1 Monocytes % 45.3 H Eosinophils % 0.5 Basophils % 0.0 Nucleated Red Blood Cells % 0.2 H Neutrophils # 2.8 Lymphocytes # 1.6 Monocytes # 4.2 H Eosinophils # 0.1 Basophils # 0.0 Nucleated Red Blood Cells # 0.0 Medications Medications Current Medications Ondansetron HCl (Zofran Inj) 4 mg Q6H PRN IV NAUSEA AND/OR VOMITING Last administered on 02/01/17 10:50; Admin Dose 4 MG; Start 01/31/17 at 17:00 Acetaminophen (Tylenol Tab) 650 mg Q6H PRN PO PAIN LEVEL 1-3 OR FEVER; Start at 17:00 Acetaminophen (Tylenol Supp) 650 mg Q6H PRN [place] PAIN LEVEL 1-3 OR FEVER; Start 01/31/17 at 17:00 Acetaminophen/ Hydrocodone Bitart ([place] (5/325)) 1 tab Q6H PRN PO MODERATE PAIN LEVEL 4-6 Last administered on 02/02/17 10:17; Admin Dose 1 TAB; Start at 17:00 Acetaminophen/ Hydrocodone Bitart ([place] (5/325)) 2 tab Q6H PRN PO SEVERE PAIN LEVEL 7-10; Start 01/31/17 at 17:00 Morphine Sulfate (morphine) 2 mg Q4H PRN IV SEVERE PAIN LEVEL 7-10; Start 01/31 at 17:00 Docusate Sodium (Colace) 100 mg Q12H PRN PO CONSTIPATION Last administered on 05:58; Admin Dose 100 MG; Start 01/31/17 at 17:00 Magnesium Hydroxide (Milk Of Mag) 30 ml DAILY PRN PO CONSTIPATION; Start at 17:00 Bisacodyl (Dulcolax Supp) 10 mg DAILY PRN [place] CONSTIPATION; Start 01/31/17 at 17 :00 Furosemide (Lasix) 20 mg DAILY@06 PO Last administered on 02/13/17 05:22; Admin Dose 20 MG; Start 02/01/17 at 06:00 Metoprolol Tartrate (Lopressor) 25 mg BID PO Last administered on 02/13/17 09: 27; Admin Dose 25 MG; Start 01/31/17 at 21:00 Potassium Chloride (Micro-K) 8 meq DAILY PO Last administered on 02/13/17 09: 27; Admin Dose 8 MEQ; Start 02/01/17 at 09:00 Albuterol/ Ipratropium (Duoneb) 3 ml Q4 PRN HHN dyspnea Last administered on 13:04; Admin Dose 3 ML; Start 01/31/17 at 17:00 Levothyroxine Sodium (Synthroid) 50 mcg DAILY@06 PO Last administered on 05:22; Admin Dose 50 MCG; Start 02/02/17 at 06:00 Collagenase (Santyl) 1 applic DAILY TOP Last administered on 02/13/17 09:27; Admin Dose 1 APPLIC; Start 02/08/17 at 09:00 Pantoprazole (Protonix Iv) 40 mg BID@06,18 IV Last administered on 02/13/17 05 :22; Admin Dose 40 MG; Start 02/08/17 at 18:00 Sucralfate (Carafate) 1 gm QID PO Last administered on 02/13/17 09:27; Admin Dose 1 GM; Start 02/10/17 at 21:00 GILL PEREIRA MD Feb 13, 2017 12:20
--- NOTE | 2017-02-13 12:38 | PN ---
Date/Time of Note Date/Time of Note DATE: 02/13/17 TIME: 12:35 Assessment/Plan VTE Prophylaxis VTE Prophylaxis Intervention: other (thrombocytopenia) Lines/Catheters [facility] Saline Lock Urinary Cath still in place: No Assessment/Plan Assessment/Plan Pt is stable with present pancytopenia. FLAER study for [facility] is pending. No transfusion suggested today. Continue to monitor. 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 Ate breakfat without problem. No bleeding noted. Exam/Review of Systems Vital Signs Vitals Vital Signs Date Time Temp Pulse Resp B/P Pulse Ox O2 Delivery O2 Flow Rate FiO2 02/13/17 12:26 86 02/13/17 03:45 98.2 18 121/58 97 02/12/17 20:35 Nasal Cannula 2.0 Intake and Output 02/12/17 02/12/17 02/13/17 15:00 23:00 07:00 Intake Total 1080 ml Balance 1080 ml Exam Constitutional: alert, oriented Psych: no complaints Head: normocephalic Eyes: nl conjunctiva, other (pallor) ENMT: nl external ears & nose Neck: supple Respiratory: clear to auscultation Cardiovascular: regular rate and rhythm Gastrointestinal: soft Lymph: nl lymph nodes Results Result Diagram: 02/13/17 0629 02/13/17 0625 Results 24 hrs Laboratory Tests Test 02/13/17 06:25 02/13/17 06:29 Sodium Level 139 Potassium Level 3.6 Chloride Level 102 Carbon Dioxide Level 29 Anion Gap 12 Blood Urea Nitrogen 32 H Creatinine 1.32 H Glucose Level 113 Calcium Level 8.1 L White Blood Count 9.4 Red Blood Count 2.99 L Hemoglobin 8.4 L Hematocrit 26.1 L Mean Corpuscular Volume 87.3 Mean Corpuscular Hemoglobin 28.1 L Mean Corpuscular Hemoglobin Concent 32.2 Red Cell Distribution Width 15.2 H Platelet Count 15 #*L Mean Platelet Volume 9.9 Neutrophils % 30.2 L Lymphocytes % 17.1 Monocytes % 45.3 H Eosinophils % 0.5 Basophils % 0.0 Nucleated Red Blood Cells % 0.2 H Neutrophils # 2.8 Lymphocytes # 1.6 Monocytes # 4.2 H Eosinophils # 0.1 Basophils # 0.0 Nucleated Red Blood Cells # 0.0 Medications Medications Current Medications Ondansetron HCl (Zofran Inj) 4 mg Q6H PRN IV NAUSEA AND/OR VOMITING Last administered on 02/01/17 10:50; Admin Dose 4 MG; Start 01/31/17 at 17:00 Acetaminophen (Tylenol Tab) 650 mg Q6H PRN PO PAIN LEVEL 1-3 OR FEVER; Start at 17:00 Acetaminophen (Tylenol Supp) 650 mg Q6H PRN [place] PAIN LEVEL 1-3 OR FEVER; Start 01/31/17 at 17:00 Acetaminophen/ Hydrocodone Bitart ([place] (5/325)) 1 tab Q6H PRN PO MODERATE PAIN LEVEL 4-6 Last administered on 02/02/17 10:17; Admin Dose 1 TAB; Start at 17:00 Acetaminophen/ Hydrocodone Bitart ([place] (5/325)) 2 tab Q6H PRN PO SEVERE PAIN LEVEL 7-10; Start 01/31/17 at 17:00 Morphine Sulfate (morphine) 2 mg Q4H PRN IV SEVERE PAIN LEVEL 7-10; Start 01/31 at 17:00 Docusate Sodium (Colace) 100 mg Q12H PRN PO CONSTIPATION Last administered on 05:58; Admin Dose 100 MG; Start 01/31/17 at 17:00 Magnesium Hydroxide (Milk Of Mag) 30 ml DAILY PRN PO CONSTIPATION; Start at 17:00 Bisacodyl (Dulcolax Supp) 10 mg DAILY PRN OR CONSTIPATION; Start 01/31/17 at 17 :00 Furosemide (Lasix) 20 mg DAILY@06 PO Last administered on 02/13/17 05:22; Admin Dose 20 MG; Start 02/01/17 at 06:00 Metoprolol Tartrate (Lopressor) 25 mg BID PO Last administered on 02/13/17 09: 27; Admin Dose 25 MG; Start 01/31/17 at 21:00 Potassium Chloride (Micro-K) 8 meq DAILY PO Last administered on 02/13/17 09: 27; Admin Dose 8 MEQ; Start 02/01/17 at 09:00 Albuterol/ Ipratropium (Duoneb) 3 ml Q4 PRN HHN dyspnea Last administered on 13:04; Admin Dose 3 ML; Start 01/31/17 at 17:00 Levothyroxine Sodium (Synthroid) 50 mcg DAILY@06 PO Last administered on 05:22; Admin Dose 50 MCG; Start 02/02/17 at 06:00 Collagenase (Santyl) 1 applic DAILY TOP Last administered on 02/13/17 09:27; Admin Dose 1 APPLIC; Start 02/08/17 at 09:00 Pantoprazole (Protonix Iv) 40 mg BID@,18 IV Last administered on 02/13/17 05 :22; Admin Dose 40 MG; Start 02/08/17 at 18:00 Sucralfate (Carafate) 1 gm QID PO Last administered on 02/13/17 09:27; Admin Dose 1 GM; Start 02/10/17 at 21:00 GONZALO MCDONALD MD Feb 13, 2017 12:38
--- NOTE | 2017-02-13 15:02 | PN ---
Date/Time of Note Date/Time of Note DATE: 02/13/17 TIME: 14:51 Assessment/Plan VTE Prophylaxis VTE Prophylaxis Intervention: SCD's Lines/Catheters [facility] Saline Lock Urinary Cath still in place: No Assessment/Plan Chief Complaint/Hosp Course Assessment and plan 1. Epistaxis. Patient seen by ENT. Secondary to thrombocythemia. cont platelet replacement as needed . improved at this time 2. Hemoptysis . Secondary to thrombocytopenia. Patient ruled out for TB. 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 s/p EGD with: distal esophagitis,severe hemorrhagic gastritis,duodenitis. cont with GI recs. no further reported hemoptysis today 3. Severe thrombocytopenia. 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 no plan for transfusion today 4. hx CML. cont with hematology/oncology recs 5. Suspect underlying HCAP. improved off abx 6. BLESSING. Improving at present. cont with nephrology recs Avoid nephrotoxic medications 7. hx CHF (systolic dysfunction). cont optimization with cardiovascular medications 8. CArdiomyopathy. EF noted at 45-50% . cont on cardiac medications 9. History of pulmonary hypertension. Patient noted with pulmonary arterial pressure 42 mmHg. titrate off o2 10. Anemia. Likely secondary to thrombocytopenia and hemorrhagic gastritis. prbc to be transfused as needed. Disposition and plan: prognosis guarded. patient requiring frequent blood product transfusion. Will follow up with family. May be suitable for hospice. Will follow up Discussed plan of care with Dr. Roman Problems: Subjective 24 Hr Interval Summary Free Text/Dictation No apparent distress seen. Exam/Review of Systems Vital Signs Vitals Vital Signs Date Time Temp Pulse Resp B/P Pulse Ox O2 Delivery O2 Flow Rate FiO2 02/13/17 12:26 86 02/13/17 08:15 Nasal Cannula 2.0 02/13/17 03:45 98.2 18 121/58 97 Intake and Output 02/12/17 02/12/17 02/13/17 15:00 23:00 07:00 Intake Total 1080 ml Balance 1080 ml Exam General: comfortable at present. no reports of epistaxis/hemoptysis. Eyes: equal, round, able to track Neck: no jvd Cardiac: s1,s2 Pulmonary: no wheezing today GI: Abdomen soft nontender nondistended, bowel sounds active Extremities: no edema ble Skin: Clean dry and intact Neurologic: Alert to person place and time and situation Results Result Diagram: 02/13/17 0629 02/13/17 0625 Results 24 hrs Laboratory Tests Test 02/13/17 06:25 02/13/17 06:29 Sodium Level 139 Potassium Level 3.6 Chloride Level 102 Carbon Dioxide Level 29 Anion Gap 12 Blood Urea Nitrogen 32 H Creatinine 1.32 H Glucose Level 113 Calcium Level 8.1 L White Blood Count 9.4 Red Blood Count 2.99 L Hemoglobin 8.4 L Hematocrit 26.1 L Mean Corpuscular Volume 87.3 Mean Corpuscular Hemoglobin 28.1 L Mean Corpuscular Hemoglobin Concent 32.2 Red Cell Distribution Width 15.2 H Platelet Count 15 #*L Mean Platelet Volume 9.9 Neutrophils % 30.2 L Lymphocytes % 17.1 Monocytes % 45.3 H Eosinophils % 0.5 Basophils % 0.0 Nucleated Red Blood Cells % 0.2 H Neutrophils # 2.8 Lymphocytes # 1.6 Monocytes # 4.2 H Eosinophils # 0.1 Basophils # 0.0 Nucleated Red Blood Cells # 0.0 Medications Medications Current Medications Ondansetron HCl (Zofran Inj) 4 mg Q6H PRN IV NAUSEA AND/OR VOMITING Last administered on 02/01/17 10:50; Admin Dose 4 MG; Start 01/31/17 at 17:00 Acetaminophen (Tylenol Tab) 650 mg Q6H PRN PO PAIN LEVEL 1-3 OR FEVER; Start at 17:00 Acetaminophen (Tylenol Supp) 650 mg Q6H PRN [place] PAIN LEVEL 1-3 OR FEVER; Start 01/31/17 at 17:00 Acetaminophen/ Hydrocodone Bitart ([place] (5/325)) 1 tab Q6H PRN PO MODERATE PAIN LEVEL 4-6 Last administered on 02/02/17 10:17; Admin Dose 1 TAB; Start at 17:00 Acetaminophen/ Hydrocodone Bitart ([place] (5/325)) 2 tab Q6H PRN PO SEVERE PAIN LEVEL 7-10; Start 01/31/17 at 17:00 Morphine Sulfate (morphine) 2 mg Q4H PRN IV SEVERE PAIN LEVEL 7-10; Start 01/31 at 17:00 Docusate Sodium (Colace) 100 mg Q12H PRN PO CONSTIPATION Last administered on 05:58; Admin Dose 100 MG; Start 01/31/17 at 17:00 Magnesium Hydroxide (Milk Of Mag) 30 ml DAILY PRN PO CONSTIPATION; Start at 17:00 Bisacodyl (Dulcolax Supp) 10 mg DAILY PRN [place] CONSTIPATION; Start 01/31/17 at 17 :00 Furosemide (Lasix) 20 mg DAILY@06 PO Last administered on 02/13/17 05:22; Admin Dose 20 MG; Start 02/01/17 at 06:00 Metoprolol Tartrate (Lopressor) 25 mg BID PO Last administered on 02/13/17 09: 27; Admin Dose 25 MG; Start 01/31/17 at 21:00 Potassium Chloride (Micro-K) 8 meq DAILY PO Last administered on 02/13/17 09: 27; Admin Dose 8 MEQ; Start 02/01/17 at 09:00 Albuterol/ Ipratropium (Duoneb) 3 ml Q4 PRN HHN dyspnea Last administered on 13:04; Admin Dose 3 ML; Start 01/31/17 at 17:00 Levothyroxine Sodium (Synthroid) 50 mcg DAILY@06 PO Last administered on 05:22; Admin Dose 50 MCG; Start 02/02/17 at 06:00 Collagenase (Santyl) 1 applic DAILY TOP Last administered on 02/13/17 09:27; Admin Dose 1 APPLIC; Start 02/08/17 at 09:00 Pantoprazole (Protonix Iv) 40 mg BID@06,18 IV Last administered on 02/13/17 05 :22; Admin Dose 40 MG; Start 02/08/17 at 18:00 Sucralfate (Carafate) 1 gm QID PO Last administered on 02/13/17 13:24; Admin Dose 1 GM; Start 02/10/17 at 21:00 CHARLY LAWRENCE Feb 13, 2017 15:02
[2017-02-14 05:44] LABS: ADD SCAN DIFF NO
[2017-02-14 05:52] LABS: POTASSIUM 3.9 mmol/L (3.5-5.1)
[2017-02-14 05:54] LABS: CREATININE 1.47 mg/dl (0.61-1.24)
[2017-02-14 05:55] LABS: CALCIUM 8.2 mg/dl (8.4-10.2)
[2017-02-14 06:01] LABS: ABNORMAL IP MESSAGE 1; BASOPHILS % 0.1 % (0.0-2.0); HEMOGLOBIN 8.2 g/dl (14.0-18.0); LYMPHOCYTES # 1.8 10^3/ul (0.8-2.9); LYMPHOCYTES % 21.1 % (15.0-51.0); MEAN CORPUSCULAR HEMOGLOBIN 28.7 pg (29.0-33.0); MEAN CORPUSCULAR HGB CONC 32.8 g/dl (32.0-37.0); MEAN CORPUSCULAR VOLUME 87.4 fl (82.0-101.0); MEAN PLATELET VOLUME 11.1 fl (7.4-10.4); MONOCYTES % 48.6 % (0.0-11.0); NEUTROPHIL # 2.1 10^3/ul (1.6-7.5); NEUTROPHILS % 25.1 % (39.0-77.0); NUCLEATED RED BLOOD CELLS% 0.4 /100WBC (0.0-0.0); RED BLOOD COUNT 2.86 10^6/ul (4.70-6.10); RED CELL DISTRIBUTION WIDTH 14.9 % (11.5-14.5); WHITE BLOOD COUNT 8.3 10^3/ul (4.8-10.8)
[2017-02-14 06:18] LABS: PLATELET COUNT 13 10^3/UL (140-415)
[2017-02-14] MEDS: LEVOTHYROXINE 50 MCG TAB PO SCH (06:20)
[2017-02-14] MEDS: PANTOPRAZOLE 40 MG INJ IV SCH ×2 (06:20→18:34)
[2017-02-14] MEDS: FUROSEMIDE 20 MG TAB PO SCH (06:20)
--- NOTE | 2017-02-14 08:56 | CONS ---
DATE OF ADMISSION: 01/31/2017 DATE OF CONSULTATION: 02/14/2017 TYPE OF CONSULTATION: Hematology/Oncology progress note. HISTORY OF PRESENT ILLNESS: Mr. Townsend is feeling well. He has no complaints at this time. He h as no complaints of abdominal pain, no nausea or vomiting, no hematemesis. The patient does not hav e chest pain or shortness of breath. OBJECTIVE: VITAL SIGNS: Temperature 98.8, pulse 80 per minute, respirations 16, blood pressure 109/57 and puls e oximetry is 96% on 3 liters by nasal cannula. SKIN: Pale with scattered ecchymoses and purpura. HEENT: No scleral icterus. No mucosal lesions. Pupils are equal, round and reactive to light and accommodation. NECK: Supple, no jugular venous distention or thyroid enlargement. CHEST: Clear to auscultation and percussion. No rhonchi, wheezes, rales or rubs. ABDOMEN: Soft, no masses or ascites but the spleen is still palpable 4 to 6 cm below the left edgar l margin in the anterior axillary line. EXTREMITIES: No clubbing, edema or cyanosis. No palpable cords or Homans sign. NEUROLOGIC: Normal. LABORATORY DATA: White count today is 8300, hemoglobin is 8.2, hematocrit 25 and platelet count is 13,000. ASSESSMENT: 1. Gastrointestinal bleeding due to gastritis and esophagitis. 2. 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 PLAN: The patient is stable. He is not having any bleeding. He has not received any transfusion n ow for over 3 days. There is no other active therapy for this patient at the present time. We will transfuse on a p.r.n . basis. Dictated By: OPAL MOSES MD SR/NTS Conf#: [id number] DID#: [id number]
[2017-02-14] MEDS: COLLAGENASE 30 GM TUBE TOP SCH (09:00)
[2017-02-14] MEDS: METOPROLOL 25 MG TAB PO SCH ×2 (09:37→20:50)
[2017-02-14] MEDS: SUCRALFATE 1 GM TAB PO SCH ×4 (09:37→20:49)
[2017-02-14] MEDS: POTASSIUM CHLORIDE (SR) 8 MEQ CAP PO SCH (09:37)
--- NOTE | 2017-02-14 10:40 | PN ---
DATE: 02/14/2017 PALLIATIVE CARE PROGRESS NOTE Case management is in the process right now of contacting patient's family members to schedule a con ference. This could be done over the weekend also. I will address ongoing level of care, hospice c are or family wishes to pursue aggressive care. I would like to discuss their wishes in doing so an d once again I have spoken to Dr. Pryor, who does not believe that there is much more to offer thi s gentleman at this time. Dictated By: JUSTIN DANIELS MD LP/NTS Conf#: [id number] DID#: [id number]
--- NOTE | 2017-02-14 10:51 | CONS ---
Date/Time of Note Date/Time of Note DATE: 02/14/17 TIME: 10:48 Assessment/Plan Assessment/Plan Chief Complaint/Hosp Course Mr. Hernandes is a 71-year-old Cambodian speaking male that is currently hospitalized for treatment for acute anemia. Per notes from Dr. Pryor:"The patient has an underlying high grade myelodysplastic syndrome. 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 Again, I emphasize this is not chronic myelogenous leukemia but chronic myelomonocytic leukemia which is a much more aggressive hematologic malignancy." Patient continues to have episodes of hemoptysis, epistaxis, and hematemesis during hospitalization in addition to several transfusions of red blood cells and platelets. At present, endoscopic evaluation not recommended; however may be required in the future. Patient and advised of risks/benefits/alternatives to procedure with [place]ian inventory planner and they both provide informed consent to proceed with endoscopic evaluation if clinically indicated. Problems: Additional Assessment/Plan Severe thrombocytopenia Platelet transfusion per HemeOnc recommendation Continue RBC transfusions as needed Acute anemia Secondary to above Bedside report of epistaxis, hemoptysis, hematemesis Monitor H&H every 8 hours, transfuse 2 units for hemoglobin less than 7.5 Monitor labs Continue PPI therapy EGD: distal esophagitis,severe hemorrhagic gastritis,duodenitis History of chronic myelogenous leukemia Myelodysplastic syndrome, causing thrombocytopenia and anemia HemeOnc following Platelet transfusion recommendations per HemeOnc Congestive heart failure Pulmonary hypertension Further recommendations depend on clinical course Patient seen in collaboration with Dr. Kovacs Consultation Date/Type/Reason Admit Date/Time Jan 31, 2017 at 14:31 Type of Consultation: Gastroenterology Referring Provider: DUNIA BECKWITH 24 HR Interval Summary Free Text/Dictation Hemoglobin stable Thrombocytopenia worsening Tolerating diet Exam/Review of Systems Vital Signs Vitals Vital Signs Date Time Temp Pulse Resp B/P Pulse Ox O2 Delivery O2 Flow Rate FiO2 02/13/17 20:39 3.0 02/13/17 20:00 98.8 80 16 109/57 96 02/13/17 19:37 Nasal Cannula Intake and Output 02/13/17 02/13/17 02/14/17 15:00 23:00 07:00 Intake Total 1080 ml 200 ml Balance 1080 ml 200 ml Exam Constitutional: alert, oriented, cachectic Psych: nl mood/affect Head: normocephalic Eyes: EOMI, nl conjunctiva, nl lids ENMT: nl external ears & nose, nl lips & teeth, nl nasal mucosa & septum Respiratory: clear to auscultation, normal air movement Cardiovascular: regular rate and rhythm Gastrointestinal: soft, non-tender Musculoskeletal: nl extremities to inspection Neurological: BRAND AMBASSADOR II-XII intact Results Result Diagram: 02/14/1715 02/14/17 0515 Results 24 hrs Laboratory Tests Test 02/14/17 05:15 White Blood Count 8.3 Red Blood Count 2.86 L Hemoglobin 8.2 L Hematocrit 25.0 L Mean Corpuscular Volume 87.4 Mean Corpuscular Hemoglobin 28.7 L Mean Corpuscular Hemoglobin Concent 32.8 Red Cell Distribution Width 14.9 H Platelet Count 13 *L Mean Platelet Volume 11.1 H Neutrophils % 25.1 L Lymphocytes % 21.1 Monocytes % 48.6 H Eosinophils % 0.0 Basophils % 0.1 Nucleated Red Blood Cells % 0.4 H Neutrophils # 2.1 Lymphocytes # 1.8 Monocytes # 4.0 H Eosinophils # 0.0 Basophils # 0.0 Nucleated Red Blood Cells # 0.0 Sodium Level 138 Potassium Level 3.9 Chloride Level 101 Carbon Dioxide Level 30 Anion Gap 11 Blood Urea Nitrogen 35 H Creatinine 1.47 H Glucose Level 117 Calcium Level 8.2 L Medications Medications Current Medications Ondansetron HCl (Zofran Inj) 4 mg Q6H PRN IV NAUSEA AND/OR VOMITING Last administered on 02/01/17 10:50; Admin Dose 4 MG; Start 01/31/17 at 17:00 Acetaminophen (Tylenol Tab) 650 mg Q6H PRN PO PAIN LEVEL 1-3 OR FEVER; Start at 17:00 Acetaminophen (Tylenol Supp) 650 mg Q6H PRN [place] PAIN LEVEL 1-3 OR FEVER; Start 01/31/17 at 17:00 Acetaminophen/ Hydrocodone Bitart ([place] (5/325)) 1 tab Q6H PRN PO MODERATE PAIN LEVEL 4-6 Last administered on 02/02/17 10:17; Admin Dose 1 TAB; Start at 17:00 Acetaminophen/ Hydrocodone Bitart ([place] (5/325)) 2 tab Q6H PRN PO SEVERE PAIN LEVEL 7-10; Start 01/31/17 at 17:00 Morphine Sulfate (morphine) 2 mg Q4H PRN IV SEVERE PAIN LEVEL 7-10; Start 01/31 at 17:00 Docusate Sodium (Colace) 100 mg Q12H PRN PO CONSTIPATION Last administered on 05:58; Admin Dose 100 MG; Start 01/31/17 at 17:00 Magnesium Hydroxide (Milk Of Mag) 30 ml DAILY PRN PO CONSTIPATION; Start at 17:00 Bisacodyl (Dulcolax Supp) 10 mg DAILY PRN [place] CONSTIPATION; Start 01/31/17 at 17 :00 Furosemide (Lasix) 20 mg DAILY@06 PO Last administered on 02/14/17 06:20; Admin Dose 20 MG; Start 02/01/17 at 06:00 Metoprolol Tartrate (Lopressor) 25 mg BID PO Last administered on 02/14/17 09: 37; Admin Dose 25 MG; Start 01/31/17 at 21:00 Potassium Chloride (Micro-K) 8 meq DAILY PO Last administered on 02/14/17 09: 37; Admin Dose 8 MEQ; Start 02/01/17 at 09:00 Albuterol/ Ipratropium (Duoneb) 3 ml Q4 PRN HHN dyspnea Last administered on 13:04; Admin Dose 3 ML; Start 01/31/17 at 17:00 Levothyroxine Sodium (Synthroid) 50 mcg DAILY@06 PO Last administered on 06:20; Admin Dose 50 MCG; Start 02/02/17 at 06:00 Collagenase (Santyl) 1 applic DAILY TOP Last administered on 02/13/17 09:27; Admin Dose 1 APPLIC; Start 02/08/17 at 09:00 Pantoprazole (Protonix Iv) 40 mg BID@06,18 IV Last administered on 02/14/17 06 :20; Admin Dose 40 MG; Start 02/08/17 at 18:00 Sucralfate (Carafate) 1 gm QID PO Last administered on 02/14/17 09:37; Admin Dose 1 GM; Start 02/10/17 at 21:00 WENDIE FERNANDEZ Feb 14, 2017 10:51
--- NOTE | 2017-02-14 11:36 | CONS ---
Date/Time of Note Date/Time of Note DATE: 02/14/17 TIME: 11:28 Assessment/Plan Assessment/Plan Additional Assessment/Plan 1. Acute kidney injury, likely secondary to prerenal azotemia causing ischemic acute tubular necrosis. 2. h/o CKD Stage III due to medical morbidiites 3. History of chronic myeloid leukemia, on chemotherapy. 4. Thrombocytopenia severe 5. History of gastroesophageal reflux disease, history of chronic obstructive pulmonary disease. 6. History of recent last admission and had a very long complicated course including sepsis, acute hypoxemic respiratory failure, non-ST elevation myocardial infarctions and acute encephalopathy. Plan: Cr 1.47, Hb 8.2 requested on the case will continue to follow up Consultation Date/Type/Reason Admit Date/Time Jan 31, 2017 at 14:31 Initial Consult Date 01/31/2017 Type of Consultation: NEPHROLOGY Referring Provider: DUNIA BECKWITH 24 HR Interval Summary Free Text/Dictation Cr 1.47, Hb 8.2 Exam/Review of Systems Vital Signs Vitals Vital Signs Date Time Temp Pulse Resp B/P Pulse Ox O2 Delivery O2 Flow Rate FiO2 02/13/17 20:39 3.0 02/13/17 20:00 98.8 80 16 109/57 96 02/13/17 19:37 Nasal Cannula Intake and Output 02/13/17 02/13/17 02/14/17 15:00 23:00 07:00 Intake Total 1080 ml 200 ml Balance 1080 ml 200 ml Exam GENERAL: Awake HEENT: No jaundice. pallor + NECK: Supple, no lymphadenopathy. LUNGS: Decreased breath sounds at both lung bases with bibasilar rales. HEART: S1, S2, tachycardia, no murmur. ABDOMEN: Soft, nontender, nondistended. Bowel sounds are present. Results Result Diagram: 02/14/17 0515 02/14/17 0515 Results 24 hrs Laboratory Tests Test 02/14/17 05:15 White Blood Count 8.3 Red Blood Count 2.86 L Hemoglobin 8.2 L Hematocrit 25.0 L Mean Corpuscular Volume 87.4 Mean Corpuscular Hemoglobin 28.7 L Mean Corpuscular Hemoglobin Concent 32.8 Red Cell Distribution Width 14.9 H Platelet Count 13 *L Mean Platelet Volume 11.1 H Neutrophils % 25.1 L Lymphocytes % 21.1 Monocytes % 48.6 H Eosinophils % 0.0 Basophils % 0.1 Nucleated Red Blood Cells % 0.4 H Neutrophils # 2.1 Lymphocytes # 1.8 Monocytes # 4.0 H Eosinophils # 0.0 Basophils # 0.0 Nucleated Red Blood Cells # 0.0 Sodium Level 138 Potassium Level 3.9 Chloride Level 101 Carbon Dioxide Level 30 Anion Gap 11 Blood Urea Nitrogen 35 H Creatinine 1.47 H Glucose Level 117 Calcium Level 8.2 L Medications Medications Current Medications Ondansetron HCl (Zofran Inj) 4 mg Q6H PRN IV NAUSEA AND/OR VOMITING Last administered on 02/01/17 10:50; Admin Dose 4 MG; Start 01/31/17 at 17:00 Acetaminophen (Tylenol Tab) 650 mg Q6H PRN PO PAIN LEVEL 1-3 OR FEVER; Start at 17:00 Acetaminophen (Tylenol Supp) 650 mg Q6H PRN [place] PAIN LEVEL 1-3 OR FEVER; Start 01/31/17 at 17:00 Acetaminophen/ Hydrocodone Bitart ([place] (5/325)) 1 tab Q6H PRN PO MODERATE PAIN LEVEL 4-6 Last administered on 02/02/17 10:17; Admin Dose 1 TAB; Start at 17:00 Acetaminophen/ Hydrocodone Bitart ([place] (5/325)) 2 tab Q6H PRN PO SEVERE PAIN LEVEL 7-10; Start 01/31/17 at 17:00 Morphine Sulfate (morphine) 2 mg Q4H PRN IV SEVERE PAIN LEVEL 7-10; Start 01/31 at 17:00 Docusate Sodium (Colace) 100 mg Q12H PRN PO CONSTIPATION Last administered on 05:58; Admin Dose 100 MG; Start 01/31/17 at 17:00 Magnesium Hydroxide (Milk Of Mag) 30 ml DAILY PRN PO CONSTIPATION; Start at 17:00 Bisacodyl (Dulcolax Supp) 10 mg DAILY PRN [place] CONSTIPATION; Start 01/31/17 at 17 :00 Furosemide (Lasix) 20 mg DAILY@06 PO Last administered on 02/14/17 06:20; Admin Dose 20 MG; Start 02/01/17 at 06:00 Metoprolol Tartrate (Lopressor) 25 mg BID PO Last administered on 02/14/17 09: 37; Admin Dose 25 MG; Start 01/31/17 at 21:00 Potassium Chloride (Micro-K) 8 meq DAILY PO Last administered on 02/14/17 09: 37; Admin Dose 8 MEQ; Start 02/01/17 at 09:00 Albuterol/ Ipratropium (Duoneb) 3 ml Q4 PRN HHN dyspnea Last administered on 13:04; Admin Dose 3 ML; Start 01/31/17 at 17:00 Levothyroxine Sodium (Synthroid) 50 mcg DAILY@06 PO Last administered on 06:20; Admin Dose 50 MCG; Start 02/02/17 at 06:00 Collagenase (Santyl) 1 applic DAILY TOP Last administered on 02/13/17 09:27; Admin Dose 1 APPLIC; Start 02/08/17 at 09:00 Pantoprazole (Protonix Iv) 40 mg BID@06,18 IV Last administered on 02/14/17 06 :20; Admin Dose 40 MG; Start 02/08/17 at 18:00 Sucralfate (Carafate) 1 gm QID PO Last administered on 02/14/17 09:37; Admin Dose 1 GM; Start 02/10/17 at 21:00 GILL PEREIRA MD Feb 14, 2017 11:36
--- NOTE | 2017-02-14 15:03 | PN ---
Date/Time of Note Date/Time of Note DATE: 02/14/17 TIME: 15:00 Assessment/Plan Lines/Catheters IV [facility] Saline Lock Urinary Cath still in place: No Assessment/Plan Chief Complaint/Hosp Course Assessment and plan 1. Epistaxis. Patient seen by ENT. Secondary to thrombocythemia. cont platelet replacement as needed . improved at this time 2. Hemoptysis . Secondary to thrombocytopenia. Patient ruled out for TB. Account Development Representative following . s/p EGD with: distal esophagitis,severe hemorrhagic gastritis,duodenitis. cont with GI recs. no further reported hemoptysis 3. Severe thrombocytopenia. Continue with spiral winder recommendations. no plan for transfusion today 4. hx CML. cont with hematology/oncology recs 5. Suspect underlying HCAP. improved off abx 6. BLESSING. Improving at present. cont with nephrology recs Avoid nephrotoxic medications 7. hx CHF (systolic dysfunction). cont optimization with cardiovascular medications. stable 8. CArdiomyopathy. EF noted at 45-50% . cont on cardiac medications. stable 9. History of pulmonary hypertension. Patient noted with pulmonary arterial pressure 42 mmHg. titrate off o2 10. Anemia. Likely secondary to thrombocytopenia and hemorrhagic gastritis. prbc to be transfused as needed. Disposition and plan: patient will need frequent blood product transfusions. will get authorization for patient follow up with oncologist. will follow up with results Discussed plan of care with Dr. Roman Problems: Subjective 24 Hr Interval Summary Free Text/Dictation comfortable. no s/s of distress Exam/Review of Systems Vital Signs Vitals Vital Signs Date Time Temp Pulse Resp B/P Pulse Ox O2 Delivery O2 Flow Rate FiO2 02/13/17 20:39 3.0 02/13/17 20:00 98.8 80 16 109/57 96 02/13/17 19:37 Nasal Cannula Intake and Output 02/13/17 02/13/17 02/14/17 15:00 23:00 07:00 Intake Total 1080 ml 200 ml Balance 1080 ml 200 ml Exam General: comfortable at present. Eyes:anicteric sclerae Neck: no jvd Cardiac: regular rate Pulmonary: no adventitious lung sounds GI: Abdomen soft nontender nondistended, bowel sounds active Extremities: no edema ble Skin: Clean dry and intact Neurologic: Alert to person place and time and situation Results Result Diagram: 02/14/17 0515 02/14/17 0515 Results 24 hrs Laboratory Tests Test 02/14/17 05:15 White Blood Count 8.3 Red Blood Count 2.86 L Hemoglobin 8.2 L Hematocrit 25.0 L Mean Corpuscular Volume 87.4 Mean Corpuscular Hemoglobin 28.7 L Mean Corpuscular Hemoglobin Concent 32.8 Red Cell Distribution Width 14.9 H Platelet Count 13 *L Mean Platelet Volume 11.1 H Neutrophils % 25.1 L Lymphocytes % 21.1 Monocytes % 48.6 H Eosinophils % 0.0 Basophils % 0.1 Nucleated Red Blood Cells % 0.4 H Neutrophils # 2.1 Lymphocytes # 1.8 Monocytes # 4.0 H Eosinophils # 0.0 Basophils # 0.0 Nucleated Red Blood Cells # 0.0 Sodium Level 138 Potassium Level 3.9 Chloride Level 101 Carbon Dioxide Level 30 Anion Gap 11 Blood Urea Nitrogen 35 H Creatinine 1.47 H Glucose Level 117 Calcium Level 8.2 L Medications Medications Current Medications Ondansetron HCl (Zofran Inj) 4 mg Q6H PRN IV NAUSEA AND/OR VOMITING Last administered on 02/01/17 10:50; Admin Dose 4 MG; Start 01/31/17 at 17:00 Acetaminophen (Tylenol Tab) 650 mg Q6H PRN PO PAIN LEVEL 1-3 OR FEVER; Start at 17:00 Acetaminophen (Tylenol Supp) 650 mg Q6H PRN [place] PAIN LEVEL 1-3 OR FEVER; Start 01/31/17 at 17:00 Acetaminophen/ Hydrocodone Bitart ([place] (5/325)) 1 tab Q6H PRN PO MODERATE PAIN LEVEL 4-6 Last administered on 02/02/17 10:17; Admin Dose 1 TAB; Start at 17:00 Acetaminophen/ Hydrocodone Bitart ([place] (5/325)) 2 tab Q6H PRN PO SEVERE PAIN LEVEL 7-10; Start 01/31/17 at 17:00 Morphine Sulfate (morphine) 2 mg Q4H PRN IV SEVERE PAIN LEVEL 7-10; Start 01/31 at 17:00 Docusate Sodium (Colace) 100 mg Q12H PRN PO CONSTIPATION Last administered on 05:58; Admin Dose 100 MG; Start 01/31/17 at 17:00 Magnesium Hydroxide (Milk Of Mag) 30 ml DAILY PRN PO CONSTIPATION; Start at 17:00 Bisacodyl (Dulcolax Supp) 10 mg DAILY PRN [place] CONSTIPATION; Start 01/31/17 at 17 :00 Furosemide (Lasix) 20 mg DAILY@06 PO Last administered on 02/14/17 06:20; Admin Dose 20 MG; Start 02/01/17 at 06:00 Metoprolol Tartrate (Lopressor) 25 mg BID PO Last administered on 02/14/17 09: 37; Admin Dose 25 MG; Start 01/31/17 at 21:00 Potassium Chloride (Micro-K) 8 meq DAILY PO Last administered on 02/14/17 09: 37; Admin Dose 8 MEQ; Start 02/01/17 at 09:00 Albuterol/ Ipratropium (Duoneb) 3 ml Q4 PRN HHN dyspnea Last administered on 13:04; Admin Dose 3 ML; Start 01/31/17 at 17:00 Levothyroxine Sodium (Synthroid) 50 mcg DAILY@06 PO Last administered on 06:20; Admin Dose 50 MCG; Start 02/02/17 at 06:00 Collagenase (Santyl) 1 applic DAILY TOP Last administered on 02/14/17 09:00; Admin Dose 1 APPLIC; Start 02/08/17 at 09:00 Pantoprazole (Protonix Iv) 40 mg BID@06,18 IV Last administered on 02/14/17 06 :20; Admin Dose 40 MG; Start 02/08/17 at 18:00 Sucralfate (Carafate) 1 gm QID PO Last administered on 02/14/17 14:43; Admin Dose 1 GM; Start 02/10/17 at 21:00 CHARLY LAWRENCE Feb 14, 2017 15:03
[2017-02-14 20:17] VITALS: BP 100/59; RESP 16
[2017-02-15] MEDS: LEVOTHYROXINE 50 MCG TAB PO SCH (05:50)
[2017-02-15] MEDS: PANTOPRAZOLE 40 MG INJ IV SCH ×2 (05:50→17:50)
[2017-02-15] MEDS: FUROSEMIDE 20 MG TAB PO SCH (05:51)
[2017-02-15 06:38] LABS: ADD SCAN DIFF NO
[2017-02-15 06:49] LABS: ABNORMAL IP MESSAGE 1; HEMATOCRIT 24.1 % (42.0-52.0); HEMOGLOBIN 7.8 g/dl (14.0-18.0); MEAN CORPUSCULAR HEMOGLOBIN 28.4 pg (29.0-33.0); MEAN CORPUSCULAR HGB CONC 32.4 g/dl (32.0-37.0); MEAN CORPUSCULAR VOLUME 87.6 fl (82.0-101.0); MEAN PLATELET VOLUME 11.5 fl (7.4-10.4); RED BLOOD COUNT 2.75 10^6/ul (4.70-6.10); RED CELL DISTRIBUTION WIDTH 15.2 % (11.5-14.5); WHITE BLOOD COUNT 7.4 10^3/ul (4.8-10.8)
[2017-02-15 07:04] LABS: PLATELET COUNT 10 10^3/UL (140-415)
[2017-02-15 07:23] LABS: POTASSIUM 3.8 mmol/L (3.5-5.1)
[2017-02-15 07:25] LABS: CREATININE 1.38 mg/dl (0.61-1.24)
[2017-02-15 07:26] LABS: CALCIUM 7.9 mg/dl (8.4-10.2)
[2017-02-15 07:55] VITALS: BP 120/60; RESP 16
[2017-02-15] MEDS: METOPROLOL 25 MG TAB PO SCH (09:56)
[2017-02-15] MEDS: COLLAGENASE 30 GM TUBE TOP SCH (09:57)
[2017-02-15] MEDS: POTASSIUM CHLORIDE (SR) 8 MEQ CAP PO SCH (09:57)
[2017-02-15] MEDS: SUCRALFATE 1 GM TAB PO SCH ×3 (09:57→17:48)
[2017-02-15 12:12] LABS: EOSINOPHILS # 0.1 10^3/ul (0.0-0.5); LYMPHOCYTES # 1.6 10^3/ul (0.8-2.9); MONOCYTE # 3.7 10^3/ul (0.3-0.9); MYELOCYTES # 0.1; NEUTROPHIL # 1.7 10^3/ul (1.6-7.5); PLATELET ESTIMATE PLT APPEAR DECREASED
[2017-02-15] MEDS ORDERED: METO-448 PO (12:58)
[2017-02-15] MEDS ORDERED: SUCR1TAB27 PO (12:58)
[2017-02-15] MEDS ORDERED: FURO-110 PO (12:58)
[2017-02-15] MEDS ORDERED: PANT40TA3 PO (12:58)
[2017-02-15] MEDS ORDERED: POTA8TAB2 PO (12:58)
[2017-02-15] MEDS ORDERED: LEVO50TA83 PO (12:58)
--- NOTE | 2017-02-15 13:12 | PDOCDIS ---
Discharge Instructions DIAGNOSIS Discharge Diagnosis: 1. history of CML and MDS 2. acute kidney injury 3. thrombycytopenia severe CONDITION Patient Condition: Stable HOME CARE INSTRUCTIONS: Special Diet: 2 GM NA FOLLOW UP/APPOINTMENTS Appointments 1. Follow up with Dr. Yousif Pryor in one week CHARLY LAWRENCE Feb 15, 2017 13:12
--- NOTE | 2017-02-15 15:52 | CONS ---
Date/Time of Note Date/Time of Note DATE: 02/15/17 TIME: 15:52 Assessment/Plan Assessment/Plan Chief Complaint/Hosp Course Impression: 1. Severe thrombocytopenia 2. Acute anemia: s/p EGD: distal esophagitis,severe hemorrhagic gastritis, duodenitis 3. History of chronic myelogenous leukemia 4. Congestive heart failure 5. Pulmonary hypertension Recommendations: Platelet transfusion per HemeOnc recommendation Continue RBC transfusions as needed Continue PPI therapy As h/h stable and no e/o overt GIB, ok from GI perspective to dc as long as ok from primary and other consultants Problems: Consultation Date/Type/Reason Admit Date/Time Jan 31, 2017 at 14:31 Initial Consult Date Type of Consultation: GI Referring Provider: DUNIA BECKWITH 24 HR Interval Summary Free Text/Dictation no n/v, no e/o overt GIB at this time Constitutional: improved Exam/Review of Systems Vital Signs Vitals Vital Signs Date Time Temp Pulse Resp B/P Pulse Ox O2 Delivery O2 Flow Rate FiO2 02/15/17 07:55 98.0 75 16 120/60 96 02/15/17 05:30 3.0 02/14/17 20:00 Nasal Cannula Intake and Output 02/14/17 02/14/17 02/15/17 15:00 23:00 07:00 Intake Total 200 ml Balance 200 ml Exam Constitutional: alert, oriented, well developed Psych: nl mood/affect, no complaints Head: atraumatic, normocephalic Eyes: EOMI, nl conjunctiva, nl lids, nl sclera ENMT: mucosa pink and moist, nl external ears & nose, nl lips & teeth, nl nasal mucosa & septum Neck: non-tender, supple Respiratory: clear to auscultation, normal air movement Cardiovascular: nl pulses, regular rate and rhythm Gastrointestinal: bowel sounds, non-tender, soft Results Result Diagram: 02/15/17 0455 02/15/17 0455 Results 24 hrs Laboratory Tests Test 02/15/17 04:55 White Blood Count 7.4 Red Blood Count 2.75 L Hemoglobin 7.8 L Hematocrit 24.1 L Mean Corpuscular Volume 87.6 Mean Corpuscular Hemoglobin 28.4 L Mean Corpuscular Hemoglobin Concent 32.4 Red Cell Distribution Width 15.2 H Platelet Count 10 #*L Mean Platelet Volume 11.5 H Neutrophils % 23.0 L Band Neutrophils % 2.0 Lymphocytes % 21.0 Monocytes % 50.0 H Eosinophils % 1.0 Basophils % Myelocytes % 1.0 H Promyelocytes % 2.0 H Nucleated Red Blood Cells % Neutrophils # 1.7 Lymphocytes # 1.6 Monocytes # 3.7 H Eosinophils # 0.1 Basophils # Myelocytes # 0.1 Promyelocytes # 0.1 Nucleated Red Blood Cells # Differential Comment MANUAL DIFF Platelet Estimate PLT APPEAR DECREASED Sodium Level 137 Potassium Level 3.8 Chloride Level 103 Carbon Dioxide Level 27 Anion Gap 11 Blood Urea Nitrogen 36 H Creatinine 1.38 H Glucose Level 109 Calcium Level 7.9 L Medications Medications Current Medications Ondansetron HCl (Zofran Inj) 4 mg Q6H PRN IV NAUSEA AND/OR VOMITING Last administered on 02/01/17 10:50; Admin Dose 4 MG; Start 01/31/17 at 17:00 Acetaminophen (Tylenol Tab) 650 mg Q6H PRN PO PAIN LEVEL 1-3 OR FEVER; Start at 17:00 Acetaminophen (Tylenol Supp) 650 mg Q6H PRN [place] PAIN LEVEL 1-3 OR FEVER; Start 01/31/17 at 17:00 Acetaminophen/ Hydrocodone Bitart ([place] (5/325)) 1 tab Q6H PRN PO MODERATE PAIN LEVEL 4-6 Last administered on 02/02/17 10:17; Admin Dose 1 TAB; Start at 17:00 Acetaminophen/ Hydrocodone Bitart ([place] (5/325)) 2 tab Q6H PRN PO SEVERE PAIN LEVEL 7-10; Start 01/31/17 at 17:00 Morphine Sulfate (morphine) 2 mg Q4H PRN IV SEVERE PAIN LEVEL 7-10; Start 01/31 at 17:00 Docusate Sodium (Colace) 100 mg Q12H PRN PO CONSTIPATION Last administered on 05:58; Admin Dose 100 MG; Start 01/31/17 at 17:00 Magnesium Hydroxide (Milk Of Mag) 30 ml DAILY PRN PO CONSTIPATION; Start at 17:00 Bisacodyl (Dulcolax Supp) 10 mg DAILY PRN [place] CONSTIPATION; Start 01/31/17 at 17 :00 Furosemide (Lasix) 20 mg DAILY@06 PO Last administered on 02/15/17 05:51; Admin Dose 20 MG; Start 02/01/17 at 06:00 Metoprolol Tartrate (Lopressor) 25 mg BID PO Last administered on 02/15/17 09: 56; Admin Dose 25 MG; Start 01/31/17 at 21:00 Potassium Chloride (Micro-K) 8 meq DAILY PO Last administered on 02/15/17 09:57 ; Admin Dose 8 MEQ; Start 02/01/17 at 09:00 Albuterol/ Ipratropium (Duoneb) 3 ml Q4 PRN HHN dyspnea Last administered on 13:04; Admin Dose 3 ML; Start 01/31/17 at 17:00 Levothyroxine Sodium (Synthroid) 50 mcg DAILY@06 PO Last administered on 05:50; Admin Dose 50 MCG; Start 02/02/17 at 06:00 Collagenase (Santyl) 1 applic DAILY TOP Last administered on 02/15/17 09:57; Admin Dose 1 APPLIC; Start 02/08/17 at 09:00 Pantoprazole (Protonix Iv) 40 mg BID@,18 IV Last administered on 02/15/17 05: 50; Admin Dose 40 MG; Start 02/08/17 at 18:00 Sucralfate (Carafate) 1 gm QID PO Last administered on 02/15/17 13:46; Admin Dose 1 GM; Start 02/10/17 at 21:00 PAUL BOWIE MD Feb 15, 2017 15:52
--- NOTE | 2017-02-15 20:01 | PN ---
Date/Time of Note Date/Time of Note DATE: 02/15/17 TIME: 19:58 Assessment/Plan VTE Prophylaxis VTE Prophylaxis Intervention: contraindicated VTE Contraindication Reason: thrombocytopenia Lines/Catheters IV [facility]from [facility] Urinary Cath still in place: No Assessment/Plan Chief Complaint/Hosp Course HISTORY OF PRESENT ILLNESS: Mr. Townsend is feeling well. He has no complaints at this time. He has no complaints of abdominal pain, no nausea or vomiting, no hematemesis. The patient does not have chest pain or shortness of breath. There is no bleeding. He had one unit platelets today and he wants to go home. OBJECTIVE: VITAL SIGNS: Vitals are stable. SKIN: Pale with scattered ecchymoses and purpura. HEENT: No scleral icterus. No mucosal lesions. Pupils are equal, round and reactive to light and accommodation. NECK: Supple, no jugular venous distention or thyroid enlargement. CHEST: Clear to auscultation and percussion. No rhonchi, wheezes, rales or rubs. ABDOMEN: Soft, no masses or ascites but the spleen is still palpable 4 to 6 cm below the left costal margin in the anterior axillary line. EXTREMITIES: No clubbing, edema or cyanosis. No palpable cords or Homans sign. NEUROLOGIC: Normal. LABORATORY DATA: Hgb is 7.8 and platelets were 10K, but he received a unit of platelets today. ASSESSMENT: 1. Gastrointestinal bleeding due to gastritis and esophagitis. 2. 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 PLAN: The patient is stable. He is not having any bleeding. Transfused today. Ok for home and f/u with Dr. Pryor on Friday. Problems: Exam/Review of Systems Vital Signs Vitals Vital Signs Date Time Temp Pulse Resp B/P Pulse Ox O2 Delivery O2 Flow Rate FiO2 02/15/17 18:19 3.0 02/15/17 07:55 98.0 75 16 120/60 96 02/14/17 20:00 Nasal Cannula Intake and Output 02/14/17 02/14/17 02/15/17 15:00 23:00 07:00 Intake Total 200 ml Balance 200 ml Results Result Diagram: 02/15/17 0455 02/15/17 0455 Results 24 hrs Laboratory Tests Test 02/15/17 04:55 White Blood Count 7.4 Red Blood Count 2.75 L Hemoglobin 7.8 L Hematocrit 24.1 L Mean Corpuscular Volume 87.6 Mean Corpuscular Hemoglobin 28.4 L Mean Corpuscular Hemoglobin Concent 32.4 Red Cell Distribution Width 15.2 H Platelet Count 10 #*L Mean Platelet Volume 11.5 H Neutrophils % 23.0 L Band Neutrophils % 2.0 Lymphocytes % 21.0 Monocytes % 50.0 H Eosinophils % 1.0 Basophils % Myelocytes % 1.0 H Promyelocytes % 2.0 H Nucleated Red Blood Cells % Neutrophils # 1.7 Lymphocytes # 1.6 Monocytes # 3.7 H Eosinophils # 0.1 Basophils # Myelocytes # 0.1 Promyelocytes # 0.1 Nucleated Red Blood Cells # Differential Comment MANUAL DIFF Platelet Estimate PLT APPEAR DECREASED Sodium Level 137 Potassium Level 3.8 Chloride Level 103 Carbon Dioxide Level 27 Anion Gap 11 Blood Urea Nitrogen 36 H Creatinine 1.38 H Glucose Level 109 Calcium Level 7.9 L Medications Medications Current Medications Ondansetron HCl (Zofran Inj) 4 mg Q6H PRN IV NAUSEA AND/OR VOMITING Last administered on 02/01/17 10:50; Admin Dose 4 MG; Start 01/31/17 at 17:00 Acetaminophen (Tylenol Tab) 650 mg Q6H PRN PO PAIN LEVEL 1-3 OR FEVER; Start at 17:00 Acetaminophen (Tylenol Supp) 650 mg Q6H PRN MT PAIN LEVEL 1-3 OR FEVER; Start 01/31/17 at 17:00 Acetaminophen/ Hydrocodone Bitart ([place] (5/325)) 1 tab Q6H PRN PO MODERATE PAIN LEVEL 4-6 Last administered on 02/02/17 10:17; Admin Dose 1 TAB; Start at 17:00 Acetaminophen/ Hydrocodone Bitart ([place] (5/325)) 2 tab Q6H PRN PO SEVERE PAIN LEVEL 7-10; Start 01/31/17 at 17:00 Morphine Sulfate (morphine) 2 mg Q4H PRN IV SEVERE PAIN LEVEL 7-10; Start 01/31 at 17:00 Docusate Sodium (Colace) 100 mg Q12H PRN PO CONSTIPATION Last administered on 05:58; Admin Dose 100 MG; Start 01/31/17 at 17:00 Magnesium Hydroxide (Milk Of Mag) 30 ml DAILY PRN PO CONSTIPATION; Start at 17:00 Bisacodyl (Dulcolax Supp) 10 mg DAILY PRN MT CONSTIPATION; Start 01/31/17 at 17 :00 Furosemide (Lasix) 20 mg DAILY@06 PO Last administered on 02/15/17 05:51; Admin Dose 20 MG; Start 02/01/17 at 06:00 Metoprolol Tartrate (Lopressor) 25 mg BID PO Last administered on 02/15/17 09: 56; Admin Dose 25 MG; Start 01/31/17 at 21:00 Potassium Chloride (Micro-K) 8 meq DAILY PO Last administered on 02/15/17 09:57 ; Admin Dose 8 MEQ; Start 02/01/17 at 09:00 Albuterol/ Ipratropium (Duoneb) 3 ml Q4 PRN HHN dyspnea Last administered on 13:04; Admin Dose 3 ML; Start 01/31/17 at 17:00 Levothyroxine Sodium (Synthroid) 50 mcg DAILY@06 PO Last administered on 05:50; Admin Dose 50 MCG; Start 02/02/17 at 06:00 Collagenase (Santyl) 1 applic DAILY TOP Last administered on 02/15/17 09:57; Admin Dose 1 APPLIC; Start 02/08/17 at 09:00 Pantoprazole (Protonix Iv) 40 mg BID@18 IV Last administered on 02/15/17 17: 50; Admin Dose 40 MG; Start 02/08/17 at 18:00 Sucralfate (Carafate) 1 gm QID PO Last administered on 02/15/17 17:48; Admin Dose 1 GM; Start 02/10/17 at 21:00 JOEY ROBLEDO MD Feb 15, 2017 20:01
--- NOTE | 2017-02-15 21:15 | CONS ---
Date/Time of Note Date/Time of Note DATE: 02/15/17 TIME: 21:14 Assessment/Plan Assessment/Plan Additional Assessment/Plan 1. Acute kidney injury, likely secondary to prerenal azotemia causing ischemic acute tubular necrosis. 2. h/o CKD Stage III due to medical morbidiites 3. History of chronic myeloid leukemia, on chemotherapy. 4. Thrombocytopenia severe 5. History of gastroesophageal reflux disease, history of chronic obstructive pulmonary disease. 6. History of recent last admission and had a very long complicated course including sepsis, acute hypoxemic respiratory failure, non-ST elevation myocardial infarctions and acute encephalopathy. Plan: Cr 1.38, Hb slightly low requested on the case will continue to follow up Consultation Date/Type/Reason Admit Date/Time Jan 31, 2017 at 14:31 Initial Consult Date 01/31/2017 Type of Consultation: NEPHROLOGY Referring Provider: DUNIA BECKWITH 24 HR Interval Summary Free Text/Dictation 1 U PRBC given, BP stable, afebrile, plan for d/c home with home health Exam/Review of Systems Vital Signs Vitals Vital Signs Date Time Temp Pulse Resp B/P Pulse Ox O2 Delivery O2 Flow Rate FiO2 02/15/17 18:19 3.0 02/15/17 08:00 Nasal Cannula 02/15/17 07:55 98.0 75 16 120/60 96 Intake and Output 02/14/17 02/14/17 02/15/17 15:00 23:00 07:00 Intake Total 200 ml Balance 200 ml Exam GENERAL: Awake HEENT: No jaundice. pallor + NECK: Supple, no lymphadenopathy. LUNGS: Decreased breath sounds at both lung bases with bibasilar rales. HEART: S1, S2, tachycardia, no murmur. ABDOMEN: Soft, nontender, nondistended. Bowel sounds are present. Results Result Diagram: 02/15/17 0455 02/15/17 0455 Results 24 hrs Laboratory Tests Test 02/15/17 04:55 White Blood Count 7.4 Red Blood Count 2.75 L Hemoglobin 7.8 L Hematocrit 24.1 L Mean Corpuscular Volume 87.6 Mean Corpuscular Hemoglobin 28.4 L Mean Corpuscular Hemoglobin Concent 32.4 Red Cell Distribution Width 15.2 H Platelet Count 10 #*L Mean Platelet Volume 11.5 H Neutrophils % 23.0 L Band Neutrophils % 2.0 Lymphocytes % 21.0 Monocytes % 50.0 H Eosinophils % 1.0 Basophils % Myelocytes % 1.0 H Promyelocytes % 2.0 H Nucleated Red Blood Cells % Neutrophils # 1.7 Lymphocytes # 1.6 Monocytes # 3.7 H Eosinophils # 0.1 Basophils # Myelocytes # 0.1 Promyelocytes # 0.1 Nucleated Red Blood Cells # Differential Comment MANUAL DIFF Platelet Estimate PLT APPEAR DECREASED Sodium Level 137 Potassium Level 3.8 Chloride Level 103 Carbon Dioxide Level 27 Anion Gap 11 Blood Urea Nitrogen 36 H Creatinine 1.38 H Glucose Level 109 Calcium Level 7.9 L GILL PEREIRA MD Feb 15, 2017 21:15
== END 2017-02-15 20:40 | disposition home health service (06) | DRG 840 ==
LOC: E/R 11:30 → MS4 14:31 → MS2 02-13 23:56
PROVIDERS: ADMIT Internal Medicine; ATTEND Internal Medicine
PROC: 0DJ08ZZ Inspection of Upper Intestinal Tract, Via Natural or Artificial Opening Endoscopic (ICD-10-PCS; principal; 2017-02-10 19:30)
DX: C93.10 Chronic myelomonocytic leukemia not having achieved remission (principal); J18.9 Pneumonia, unspecified organism; N17.0 Acute kidney failure with tubular necrosis; J96.90 Respiratory failure, unspecified, unspecified whether with hypoxia or hypercapnia; I13.0 Hypertensive heart and chronic kidney disease with heart failure and stage 1 through stage 4 chronic kidney disease, or unspecified chronic kidney disease; K29.71 Gastritis, unspecified, with bleeding; R64 Cachexia; I42.9 Cardiomyopathy, unspecified; I50.22 Chronic systolic (congestive) heart failure; R04.2 Hemoptysis; Z68.1 Body mass index [BMI] 19.9 or less, adult; I27.2 Other secondary pulmonary hypertension; N18.3 Chronic kidney disease, stage 3 (moderate); J44.9 Chronic obstructive pulmonary disease, unspecified; R04.0 Epistaxis; I25.2 Old myocardial infarction; F17.200 Nicotine dependence, unspecified, uncomplicated; E83.42 Hypomagnesemia; K29.80 Duodenitis without bleeding; D63.0 Anemia in neoplastic disease; D69.59 Other secondary thrombocytopenia; K21.0 Gastro-esophageal reflux disease with esophagitis
CPT/HCPCS: 36415; 36430; 71010; 71250; 80048; 80053; 80061; 82247; 82248; 83010; 83036; 83051; 83605; 83615; 83735; 84100; 84436; 84443; 84479; 84484; 85025; 85378; 85384; 85610; 85730; 86644; 86850; 86900; 86901; 86920; 86945; 87040; 87116; 93005; 94664; J1940; C9113; J0456; J2405; J3010; J3475; J7030; J7040; P9016; P9035; P9059

== ENCOUNTER 2017-02-19 13:53 | Inpatient (IN) | payer BC ==
[~2017-02-19] VITALS: Ht 193 cm; Wt 68.0 kg
[~2017-02-19 13:53] MED LIST changes: +LEVO50TA83 PO; +PANT40TA3 PO; -PANT40TA4 PO; -POTA8CAP PO; +POTA8TAB2 PO; -QUET25TA26 PO; +SUCR1TAB27 PO
[2017-02-19] MEDS ORDERED: FAMOTIDINE 20 MG INJ IV STA (15:41)
[2017-02-19] MEDS ORDERED: ONDANSETRON 4 MG INJ IV STA (15:41)
[2017-02-19] MEDS ORDERED: SOD CHLORIDE 0.9% 1,000 ML IV STA (15:47)
[2017-02-19 16:14] LABS: ADD SCAN DIFF NO
[2017-02-19 16:15] LABS: ABNORMAL IP MESSAGE 1; HEMATOCRIT 26.2 % (42.0-52.0); HEMOGLOBIN 8.3 g/dl (14.0-18.0); MEAN CORPUSCULAR HEMOGLOBIN 28.2 pg (29.0-33.0); MEAN CORPUSCULAR HGB CONC 31.7 g/dl (32.0-37.0); MEAN CORPUSCULAR VOLUME 89.1 fl (82.0-101.0); RED BLOOD COUNT 2.94 10^6/ul (4.70-6.10); RED CELL DISTRIBUTION WIDTH 15.1 % (11.5-14.5); WHITE BLOOD COUNT 15.2 10^3/ul (4.8-10.8)
[2017-02-19 16:19] LABS: PLATELET COUNT 10 10^3/UL (140-415)
[2017-02-19 16:28] LABS: ALBUMIN 3.8 g/dl (3.3-4.9); CHLORIDE 104 mmol/L (97-110); INR 1.16; PROTIME 14.8 Sec (12.2-14.2); PT RATIO 1.2
[2017-02-19 16:29] LABS: PARTIAL THROMBOPLASTIN TIME 33.6 Sec (25.0-35.0); POTASSIUM 3.7 mmol/L (3.5-5.1); SODIUM 145 mmol/L (135-144)
[2017-02-19 16:31] LABS: ALANINE AMINOTRANSFERASE 23 IU/L (13-69); ALBUMIN/GLOBULIN RATIO 0.63; ALKALINE PHOSPHATASE 79 IU/L (42-121); ANION GAP 20 (8-16); ASPARTATE AMINO TRANSFERASE 27 IU/L (15-46); BILIRUBIN,INDIRECT 0.4 mg/dl (0-1.1); BILIRUBIN,TOTAL 0.4 mg/dl (0.2-1.3); BLOOD UREA NITROGEN 36 mg/dl (7-20); CARBON DIOXIDE 25 mmol/L (21-31); CREATININE 1.41 mg/dl (0.61-1.24); TOTAL PROTEIN 9.8 g/dl (6.1-8.1)
[2017-02-19 16:32] LABS: CALCIUM 8.5 mg/dl (8.4-10.2); GLUCOSE 122 mg/dl (70-220)
[2017-02-19] MEDS ORDERED: SOD CHLORIDE 0.9% 250 ML IV ONE (16:36)
--- NOTE | 2017-02-19 16:48 | RADRPT ---
PROCEDURE: CHEST 1VW CLINICAL INDICATION: Shortness of breath TECHNIQUE: Single frontal view of the chest was obtained COMPARISON: 02/03/2017 FINDINGS: The cardiac size is normal. Aortic vascular calcifications are demonstrated. There is no pulmonary vascular congestion. Stable background of severe centrilobular emphysema and smoking related airways disease. Stable gra nuloma seen in the right upper lobe. The ground-glass / consolidation seen at the left lung base zuniga s increased potentially representing pneumonia or aspiration. Mild degenerative changes of the visualized osseous structures are visualized. IMPRESSION: Stable background of severe centrilobular emphysema and smoking related airways disease. Stable granuloma seen in the right upper lobe. The ground-glass / consolidation seen at the left lung base has increased potentially representing p neumonia or aspiration. RPTAT:PP .Britton Mcclure MD, Date Time Electronically viewed and signed by .Britton Mcclure MD, MD on 02/19/2017 16:48 .V/
[2017-02-19 16:59] LABS: TROPONIN-I < 0.012 ng/ml (0.00-0.12)
[2017-02-19] MEDS ORDERED: IODIXANOL LOCM 100 ML BTL ONE (17:17)
[2017-02-19] MEDS ORDERED: SOD CHLORIDE 0.9% 100 ML ONE (17:17)
[2017-02-19 17:25] LABS: LYMPHOCYTES # 4.6 10^3/ul (0.8-2.9); MYELOCYTES # 0.6; NEUTROPHIL # 5.9 10^3/ul (1.6-7.5)
[2017-02-19 17:26] LABS: ANISOCYTOSIS 1+; HYPOCHROMASIA 1+; PLATELET ESTIMATE PLT APPEAR DECREASED
[2017-02-19] MEDS ORDERED: ALBUTEROL 0.5% (NEB) 2.5 MG/0.5 ML AMP INH STA (17:52)
[2017-02-19] MEDS ORDERED: IPRATROPIUM (NEB) 0.5 MG/2.5 ML AMP INH STA (17:52)
--- NOTE | 2017-02-19 18:04 | RADRPT ---
PROCEDURE: CT Pulmonary Angiogram. CLINICAL INDICATION: Chest pain and shortness of breath. TECHNIQUE: CT pulmonary angiogram and a CT scan of the chest with contrast was performed. The pat ient was scanned following the uncomplicated intravenous administration of 85 cc of Visipaque 320 in travenous contrast. 2-D coronal reformatted images were obtained from the axial source images. In addition, 3-D post processing was performed. Total exam DLP is 344.73 mGy-cm. CTDIvol is 8.80 mGy. One or more of the following dose reduction techniques were used: Automated exposure control, adju stment of the mA and/or kV according to patient size, use of iterative reconstruction technique. COMPARISON: CT scan of the chest dated 02/03/2017. FINDINGS: The pulmonary arteries are normal with no filling defect or lack of enhancement to suggest pulmonary artery embolism. Extensive emphysematous changes are present bilaterally. Bilateral multifocal pneumonia most severe in the left lower lobe inferiorly and with patchy regions in the right upper lobe and lingula is unc hanged. A mass in the right mainstem bronchus and mucus plugging of multiple right lower lobe and r ight middle lobe bronchi is unchanged. Extensive mucus is also present in the lingular and left low er lobe bronchi. Scarring and possible masses in the right upper lobe measuring up to 1.7 cm are un changed. There is no other pulmonary nodule or mass lesion. There is no pneumothorax. Multiple small middle mediastinal lymph nodes are noted as seen previously. There is no other media stinal or hilar lymphadenopathy or mass. There is no pleural effusion. There is no pericardial effusion. The thoracic aorta is normal with no aneurysm or dissection. Images through the upper abdomen demonstrate splenomegaly. The osseous structures are normal with no fracture or lytic lesion. IMPRESSION: 1. Normal CT pulmonary angiogram with no evidence of pulmonary artery embolism. 2. Extensive emphysematous changes bilaterally. 3. Bilateral multifocal pneumonia, unchanged. 4. Extensive mucus within the bronchi. 5. Possible mass in the right mainstem bronchus. Correlation with bronchoscopy advised. 6. Possible masses in the right upper lobe measuring up to 1.7 cm. 7. Multiple small middle mediastinal lymph nodes, likely reactive. 8. Splenomegaly. RPTAT: QQ .Sunil Souza MD, Date Time Electronically viewed and signed by .Sunil Souza MD, on 02/19/2017 18:04 .R/
[2017-02-19] MEDS ORDERED: CEFEPIME 2GM/50 ML (PMX) 50 ML IVPB STA (18:44)
[2017-02-19] MEDS ORDERED: VANCOMYCIN 1 GM (PMX) 250 ML IVPB STA (18:44)
--- NOTE | 2017-02-19 19:33 | ERA ---
ER Documentation Chief Complaint Date/Time DATE: 02/19/17 TIME: 19:28 Chief Complaint vomiting red blood started this morning HPI This 71-year-old male presents to the emergency room for evaluation of vomiting up red blood. He states that this started this morning. This patient does have a history of mild dysplastic syndrome, esophagitis, previous anemia and GI bleed. When I evaluated this patient he denied any pain, but this that he was short of breath and states that when he coughs he is coughing up blood. The patient denies any fevers or chills associated with this. ROS All systems reviewed and are negative except as per history of present illness. Medications Home Meds Active Scripts Pantoprazole* (Protonix*) 40 Mg Tablet.dr, 40 MG PO BID for 30 Days, TAB Prov:CHARLY LAWRENCE 02/15/17 Sucralfate (Carafate) 1 Gm Tablet, 1 GM PO QID for 30 Days, TAB Prov:REGIDOCHARLY Corona 02/15/17 Potassium Chloride* (Klor-Con*) 8 Meq Tablet.sa, 8 MEQ PO DAILY for 30 Days Prov:REGCHARLY DYKES 02/15/17 Levothyroxine Sodium* (Synthroid*) 50 Mcg Tablet, 50 MCG PO DAILY@06 for 30 Days , TAB Prov:REGCHARLY DYKES 02/15/17 Furosemide* (Lasix*) 20 Mg Tablet, 20 MG PO DAILY for 30 Days, TAB Prov:REGCHARLY DYKES 02/15/17 Metoprolol Tartrate* (Lopressor*) 25 Mg Tab, 25 MG PO BID for 30 Days, TAB 2 Refills Prov:CHARLY LAWRENCE 02/15/17 Discontinued Reported Medications Famotidine* (Famotidine*) 20 Mg Tablet, 20 MG PO DAILY, #30 TAB 01/31/17 Discontinued Scripts Potassium Chloride* (Potassium Chloride*) 8 Meq Capsule.er, 8 MEQ PO DAILY for 30 Days, CAP Prov:EZE LYLES 01/21/17 Allergies Allergies: Coded Allergies: No Known Allergy (Unverified , 02/19/17) PMhx/Soc History of Surgery: Yes Anesthesia Reaction: No Hx Neurological Disorder: No Hx Respiratory Disorders: Yes (COPD) Hx Cardiac Disorders: No Hx Psychiatric Problems: No Hx Miscellaneous Medical Probl: Yes Hx Alcohol Use: No Hx Substance Use: No Hx Tobacco Use: No Smoking Status: Former smoker Physical Exam Vitals Vital Signs Date Time Temp Pulse Resp B/P Pulse Ox O2 Delivery O2 Flow Rate FiO2 02/19/17 18:11 15.0 02/19/17 18:11 89 20 98 Non Rebreather Mask 15.0 02/19/17 15:46 Nasal Cannula 2 02/19/17 14:08 97.8 109 20 119/63 89 Physical Exam INITIAL VITAL SIGNS: Reviewed by me GENERAL: The patient is cachectic appearing elderly gentleman in mild respiratory distress HEENT: Dry mucous membranes pupils equal, round, and reactive to light. EOMI. There is no scleral icterus. NECK: C-spine is soft and supple, there is no meningismus. There is no cervical lymphadenopathy. LUNGS: Coarse breath sounds bilaterally with diffuse rales auscultated in the upper and lower lobe HEART: Tachycardic, no murmurs, clicks, rubs or gallops. ABDOMEN: Soft, non-tender, non-distended. There are bowel sounds in all four quadrants. No rebound or guarding. EXTREMITIES: There is no peripheral cyanosis or edema. No focal swelling or erythema. NEUROLOGICAL: The patient moves all four extremities with 5/5 strength. Cranial nerves II - XII are intact. Normal gait. Alert and oriented SKIN: There is no apparent rash or petechiae. HEME/LYMPHATIC: There is no evidence of excessive bruising or lymphedema. PSYCHIATRIC: The patient does not appear anxious or depressed. Result Diagram: 02/19/17 1546 02/19/17 1546 Results 24 hrs Laboratory Tests Test 02/19/17 15:38 02/19/17 15:46 Lactic Acid Level 1.4mmol/L White Blood Count 15.210^3/ul Red Blood Count 2.9410^6/ul Hemoglobin 8.3g/dl Hematocrit 26.2% Mean Corpuscular Volume 89.1fl Mean Corpuscular Hemoglobin 28.2pg Mean Corpuscular Hemoglobin Concent 31.7g/dl Red Cell Distribution Width 15.1% Platelet Count 1010^3/UL Mean Platelet Volume 10.0fl Neutrophils % 39.0% Band Neutrophils % 1.0% Lymphocytes % 30.0% Monocytes % 26.0% Myelocytes % 4.0% Neutrophils # 5.910^3/ul Lymphocytes # 4.610^3/ul Monocytes # 4.010^3/ul Myelocytes # 0.6 Platelet Estimate PLT APPEAR DECREASED Hypochromasia 1+ Anisocytosis 1+ Macrocytosis 1+ Prothrombin Time 14.8Sec Prothrombin Time Ratio 1.2 INR International Normalized Ratio 1.16 Activated Partial Thromboplast Time 33.6Sec Sodium Level 145mmol/L Potassium Level 3.7mmol/L Chloride Level 104mmol/L Carbon Dioxide Level 25mmol/L Anion Gap 20 Blood Urea Nitrogen 36mg/dl Creatinine 1.41mg/dl Glucose Level 122mg/dl Calcium Level 8.5mg/dl Total Bilirubin 0.4mg/dl Direct Bilirubin 0.00mg/dl Indirect Bilirubin 0.4mg/dl Aspartate Amino Transf (AST/SGOT) 27IU/L Alanine Aminotransferase (ALT/SGPT) 23IU/L Alkaline Phosphatase 79IU/L Troponin I < 0.012ng/ml Total Protein 9.8g/dl Albumin 3.8g/dl Globulin 6.00g/dl Albumin/Globulin Ratio 0.63 Current Medications Medications (Trade) Dose Ordered Sig/Sandra Route PRN Reason Start Time Stop Time Status Last Admin Dose Admin Ondansetron HCl (Zofran Inj) 4 mg ONCE STAT IV 02/19/17 15:41 02/19/17 15:42 DC 02/19/17 15:59 Famotidine 20 mg 20 mg ONCE STAT IV 02/19/17 15:41 02/19/17 15:42 DC 02/19/17 15:59 Sodium Chloride 1,000 ml @ 1,000 mls/hr Q1H STAT IV 02/19/17 15:47 02/19/17 16:46 DC 02/19/17 15:59 Sodium Chloride (NS) 250 ml @ 0 mls/hr Q0M ONCE IV 02/19/17 16:36 02/19/17 16:51 DC IV Flush 10 ml 10 ml STK-MED ONCE .ROUTE 02/19/17 17:17 02/19/17 17:18 DC 02/19/17 17:46 Sodium Chloride (NS) 100 ml @ ud STK-MED ONCE .ROUTE 02/19/17 17:17 02/19/17 17:18 DC 02/19/17 17:46 Iodixanol (Visipaque Locm) 100 ml STK-MED ONCE .ROUTE 02/19/17 17:17 02/19/17 17:18 DC 02/19/17 17:46 Albuterol (Proventil 0.5% (Neb)) 15 mg ONCE STAT INH 02/19/17 17:52 02/19/17 17:54 DC 02/19/17 18:08 Ipratropium Sarah Ann 1 mg 1 mg ONCE STAT INH 02/19/17 17:52 02/19/17 17:54 DC 02/19/17 18:08 Vancomycin HCl 250 ml @ 125 mls/hr ONCE STAT IVPB 02/19/17 18:44 02/19/17 20:43 Cefepime HCl (Maxipime 2gm/50 ml (Pmx)) 50 ml @ 100 mls/hr ONCE STAT IVPB 02/19/17 18:44 02/19/17 19:13 DC 02/19/17 19:07 Procedures/MDM EKG: Rate/Rhythm: Sinus tachycardia QRS, ST, T-waves: [No changes consistent w/ acute ischemia] Impression: [No evidence of ischemia or arrhythmia] Chest X-ray 1V Interpreted by me: Soft Tissue: Stable background of severe centrilobular emphysema and smoking related airways disease. Stable granuloma seen in the right upper lobe. The ground-glass / consolidation seen at the left lung base has increased potentially representing pneumonia or aspiration. Bones: No acute abnormalities Mediastinum/Cardiac Silhouette/Lungs: [No acute abnormalities] CT angios chest: 1. Normal CT pulmonary angiogram with no evidence of pulmonary artery embolism. 2. Extensive emphysematous changes bilaterally. 3. Bilateral multifocal pneumonia, unchanged. 4. Extensive mucus within the bronchi. 5. Possible mass in the right mainstem bronchus. Correlation with bronchoscopy advised. 6. Possible masses in the right upper lobe measuring up to 1.7 cm. 7. Multiple small middle mediastinal lymph nodes, likely reactive. 8. Splenomegaly. This 71-year-old male presents to the emergency room for evaluation of hemoptysis, possible hematemesis. This patient does have a history of CML, myelodysplastic syndrome and previous anemia. The patient also has a history of esophagitis. When I evaluated this patient he was tachypneic and tachycardic. He did have coarse breath sounds bilaterally. He did vomit bright red blood after coughing. I did obtain blood work on this patient, started him on IV fluids and did give him a breathing treatment. The patient was placed on a nonrebreather and states she is feeling better. Given the history of cancer I did obtain a CT angiography of the chest to rule out a pulmonary embolism. CTA does not show pulmonary embolism however this patient does have extensive multifocal pneumonia. Blood and urine cultures were obtained. The patient was started on vancomycin and cefepime. His lab work does show he has thrombocytopenia and platelets of 10,000. The patient also has a hemoglobin less than 9. Given this patient's active vomiting of blood and thrombocytopenia the patient was transfused 2 units of packed red blood cells, I did order 2 units of platelets as well. His blood pressure is 92 systolic. Given his mild hypotension, and active vomiting of blood this patient will be placed in the intensive care unit at this time for serial hemoglobins. The patient will be admitted under the care of Dr. Potter \ Cardiac Critical Care: Excluding all billable procedures Time: 33 minutes Treatments/Evaluations: Close monitoring for dangerous arrhythmia and cardiovascular collapse, while treating with advance cardiac medications and techniques. Departure Diagnosis: Primary Impression: Hemoptysis Additional Impressions: Thrombocytopenia Multifocal pneumonia Normocytic anemia Renal insufficiency Respiratory distress Condition: Critical VALDEMAR JACKSON DO Feb 19, 2017 19:33
--- NOTE | 2017-02-19 19:40 | HP ---
Date/Time of Note Date/Time of Note DATE: 02/19/17 TIME: 19:37 Assessment/Plan VTE Prophylaxis VTE Prophylaxis Intervention: contraindicated VTE Contraindication Reason: bleeding Assessment/Plan Assessment/Plan 1) Hemoptysis with possible mass in the right mainstem bronchus - Admit to ICU - NPO - CONSULT: Pulmonology - Dr. Jeffrey - AM Labs: CBC and BMP 2) Thrombocytopenia, critical, PLT = 10 - 1 unit of PLT transfused in the ER - Consider Heme-Onc Consult 3) Anemia, microcytic and hypochromic, Hgb = 8.3 - 2 uPRBCs transfused in the ER 4) Emphysema with respiratory distress requiring O2 via Non-Rebreather, patient tolerating well 5) Multifocal pneumonia, bilateral, unchanged from 02/03/17 - ABX 6) History of CML HPI/ROS Admit Date/Time Admit Date/Time 02/19/17 Hx of Present Illness History is per ER Physician due to language barrier and patient's critical condition: This 71-year-old male presents to the emergency room for evaluation of vomiting up red blood that started tis morning. He states that this started this morning. This patient does have a history of mild dysplastic syndrome, esophagitis, previous anemia and GI bleed. When I evaluated this patient he denied any pain, but this that he was short of breath and states that when he coughs he is coughing up blood. The patient denies any fevers or chills associated with this. (Review of the records shows that he was admitted on 01/31/17 for epistaxis and thrombocytopenia with PLT = 4) ER COURSE per ER Physician: This 71-year-old male presents to the emergency room for evaluation of hemoptysis, possible hematemesis. This patient does have a history of CML, myelodysplastic syndrome and previous anemia. The patient also has a history of esophagitis. When I evaluated this patient he was tachypneic and tachycardic. He did have coarse breath sounds bilaterally. He did vomit bright red blood after coughing. I did obtain blood work on this patient, started him on IV fluids and did give him a breathing treatment. The patient was placed on a nonrebreather and states she is feeling better. Given the history of cancer I did obtain a CT angiography of the chest to rule out a pulmonary embolism. CTA does not show pulmonary embolism however this patient does have extensive multifocal pneumonia. Blood and urine cultures were obtained. The patient was started on vancomycin and cefepime. His lab work does show he has thrombocytopenia and platelets of 10,000. The patient also has a hemoglobin less than 9. Given this patient's active vomiting of blood and thrombocytopenia the patient was transfused 2 units of packed red blood cells, I did order 2 units of platelets as well. His blood pressure is 92 systolic. Given his mild hypotension, and active vomiting of blood this patient will be placed in the intensive care unit at this time for serial hemoglobins. ROS All systems reviewed and are negative except as per history of present illness. PMH/Family/Social Past Medical History COPD; CML; Esophagitis; Epistaxis with Thrombocytopenia - Admitted 01/31/17 Social History Smoking Status: Former smoker Exam/Review of Systems Vital Signs Vitals Vital Signs Date Time Temp Pulse Resp B/P Pulse Ox O2 Delivery O2 Flow Rate FiO2 02/19/17 18:11 15.0 02/19/17 18:11 89 20 98 Non Rebreather Mask 02/19/17 14:08 97.8 119/63 Exam Exam General: The patient is cachectic appearing elderly gentleman, sleeping with O2 via Non-Rebreather Mask. Rouses easily, HOB elevated between 45 and 60 degrees. Eyes: Sclera White HENT: Normocephalic/Atraumatic, External Ears/Nose Normal, Moist Mucus Membranes Neck: Supple, Trachea Midline Cardiovascular: Tachycardic, Regular Rhythm, Normal S1 and S2, No Murmur, No Extra Sounds. Radial and DP pulses +2/4, no pedal edema Pulmonary: Coarse breath sounds bilaterally with decreased airflow throughout Gastrointestinal: Normoactive Bowel Sounds, Soft, Non-Tender/Non-Distended, exam done with patient seated/reclined on the [facility] Urogenital: Deferred Neurological: CN II - XII Grossly Intact, Non-Focal Integumentary: Normal Moisture and Temperature, Fair Turgor, No Jaundice, No Rash Lymphatic: No Cervical Lymphadenopathy Psychiatric: Appropriate Mood and Affect, Good Eye Contact Labs Result Diagram: 02/19/17 1546 02/19/17 1546 Medications Medications Home Meds Active Scripts Pantoprazole* (Protonix*) 40 Mg Tablet., 40 MG PO BID for 30 Days, TAB Prov:CHARLY LAWRENCE 02/15/17 Sucralfate (Carafate) 1 Gm Tablet, 1 GM PO QID for 30 Days, TAB Prov:REGIDOCHARLY Corona 02/15/17 Potassium Chloride* (Klor-Con*) 8 Meq Tablet.sa, 8 MEQ PO DAILY for 30 Days Prov:CHARLY LAWRENCE 02/15/17 Levothyroxine Sodium* (Synthroid*) 50 Mcg Tablet, 50 MCG PO DAILY@06 for 30 Days , TAB Prov:REGIDOCHARLY Corona 02/15/17 Furosemide* (Lasix*) 20 Mg Tablet, 20 MG PO DAILY for 30 Days, TAB Prov:CHEIDOCHARLY Corona 02/15/17 Metoprolol Tartrate* (Lopressor*) 25 Mg Tab, 25 MG PO BID for 30 Days, TAB 2 Refills Prov:CHARLY LAWRENCE 02/15/17 Discontinued Reported Medications Famotidine* (Famotidine*) 20 Mg Tablet, 20 MG PO DAILY, #30 TAB 01/31/17 Discontinued Scripts Potassium Chloride* (Potassium Chloride*) 8 Meq Capsule.er, 8 MEQ PO DAILY for 30 Days, CAP Prov:VALERY LYLESEDWARD Keating. 01/21/17 Current Medications Medications (Trade) Dose Ordered Sig/Sandra Route PRN Reason Start Time Stop Time Status Last Admin Dose Admin Ondansetron HCl (Zofran Inj) 4 mg ONCE STAT IV 02/19/17 15:41 02/19/17 15:42 DC 02/19/17 15:59 Famotidine 20 mg 20 mg ONCE STAT IV 02/19/17 15:41 02/19/17 15:42 DC 02/19/17 15:59 Sodium Chloride 1,000 ml @ 1,000 mls/hr Q1H STAT IV 02/19/17 15:47 02/19/17 16:46 DC 02/19/17 15:59 Sodium Chloride (NS) 250 ml @ 0 mls/hr Q0M ONCE IV 02/19/17 16:36 02/19/17 16:51 DC IV Flush 10 ml 10 ml STK-MED ONCE .ROUTE 02/19/17 17:17 02/19/17 17:18 DC 02/19/17 17:46 Sodium Chloride (NS) 100 ml @ ud STK-MED ONCE .ROUTE 02/19/17 17:17 02/19/17 17:18 DC 02/19/17 17:46 Iodixanol (Visipaque Locm) 100 ml STK-MED ONCE .ROUTE 02/19/17 17:17 02/19/17 17:18 DC 02/19/17 17:46 Albuterol (Proventil 0.5% (Neb)) 15 mg ONCE STAT INH 02/19/17 17:52 02/19/17 17:54 DC 02/19/17 18:08 Ipratropium [place] 1 mg 1 mg ONCE STAT INH 02/19/17 17:52 02/19/17 17:54 DC 02/19/17 18:08 Vancomycin HCl 250 ml @ 125 mls/hr ONCE STAT IVPB 02/19/17 18:44 02/19/17 20:43 Cefepime HCl (Maxipime 2gm/50 ml (Pmx)) 50 ml @ 100 mls/hr ONCE STAT IVPB 02/19/17 18:44 02/19/17 19:13 DC 02/19/17 19:07 Procedures Procedures Laboratory Tests Test 02/19/17 15:38 02/19/17 15:46 Lactic Acid Level 1.4mmol/L White Blood Count 15.210^3/ul Red Blood Count 2.9410^6/ul Hemoglobin 8.3g/dl Hematocrit 26.2% Mean Corpuscular Volume 89.1fl Mean Corpuscular Hemoglobin 28.2pg Mean Corpuscular Hemoglobin Concent 31.7g/dl Red Cell Distribution Width 15.1% Platelet Count 1010^3/UL Mean Platelet Volume 10.0fl Neutrophils % 39.0% Band Neutrophils % 1.0% Lymphocytes % 30.0% Monocytes % 26.0% Myelocytes % 4.0% Neutrophils # 5.910^3/ul Lymphocytes # 4.610^3/ul Monocytes # 4.010^3/ul Myelocytes # 0.6 Platelet Estimate PLT APPEAR DECREASED Hypochromasia 1+ Anisocytosis 1+ Macrocytosis 1+ Prothrombin Time 14.8Sec Prothrombin Time Ratio 1.2 INR International Normalized Ratio 1.16 Activated Partial Thromboplast Time 33.6Sec Sodium Level 145mmol/L Potassium Level 3.7mmol/L Chloride Level 104mmol/L Carbon Dioxide Level 25mmol/L Anion Gap 20 Blood Urea Nitrogen 36mg/dl Creatinine 1.41mg/dl Glucose Level 122mg/dl Calcium Level 8.5mg/dl Total Bilirubin 0.4mg/dl Direct Bilirubin 0.00mg/dl Indirect Bilirubin 0.4mg/dl Aspartate Amino Transf (AST/SGOT) 27IU/L Alanine Aminotransferase (ALT/SGPT) 23IU/L Alkaline Phosphatase 79IU/L Troponin I < 0.012ng/ml Total Protein 9.8g/dl Albumin 3.8g/dl Globulin 6.00g/dl Albumin/Globulin Ratio 0.63 EKG: Rate/Rhythm: Sinus tachycardia QRS, ST, T-waves: [No changes consistent w/ acute ischemia] Impression: [No evidence of ischemia or arrhythmia] RADIOLOGY: PROCEDURE: CT Pulmonary Angiogram. CLINICAL INDICATION: Chest pain and shortness of breath. COMPARISON: CT scan of the chest dated 02/03/2017. IMPRESSION: 1. Normal CT pulmonary angiogram with no evidence of pulmonary artery embolism. 2. Extensive emphysematous changes bilaterally. 3. Bilateral multifocal pneumonia, unchanged. 4. Extensive mucus within the bronchi. 5. Possible mass in the right mainstem bronchus. Correlation with bronchoscopy advised. 6. Possible masses in the right upper lobe measuring up to 1.7 cm. 7. Multiple small middle mediastinal lymph nodes, likely reactive. 8. Splenomegaly. PROCEDURE: CHEST 1VW CLINICAL INDICATION: Shortness of breath TECHNIQUE: Single frontal view of the chest was obtained COMPARISON: 02/03/2017 IMPRESSION: Stable background of severe centrilobular emphysema and smoking related airways disease. Stable granuloma seen in the right upper lobe. The ground-glass / consolidation seen at the left lung base has increased potentially representing pneumonia or aspiration. VICTORIA NEFF DO Feb 19, 2017 19:40 VICTORIA NEFF DO Feb 19, 2017 19:40
[2017-02-19] MEDS ORDERED: ACETAMINOPHEN 325 MG TAB PO PRN (20:00)
[2017-02-19] MEDS ORDERED: morphine 2 MG INJ IV PRN (20:00)
[2017-02-19] MEDS ORDERED: METOCLOPRAMIDE 10 MG INJ IV PRN (20:00)
[2017-02-19] MEDS ORDERED: ACETAMINOPHEN 650 MG SUPP PR PRN (20:00)
[2017-02-19] MEDS: PANTOPRAZOLE 40 MG INJ IV SCH (20:49)
[2017-02-19 20:53] LABS: MAGNESIUM 1.3 mg/dl (1.7-2.5)
[2017-02-19 21:24] LABS: THYROID STIMULATING HORMONE 6.62 MIU/L (0.465-4.680)
[2017-02-20] VITALS (12 sets, daily range): BP systolic 95–133; BP diastolic 57–69; PULSE 86–102; RESP 15–23; TEMP 97.8; Ht 193 cm; Wt 68.0 kg
[2017-02-20] MEDS ORDERED: VANCOMYCIN IV PER PHARMACY XX SCH (03:30)
[2017-02-20] MEDS: CEFEPIME 2GM/50 ML (PMX) 50 ML IVPB SCH ×2 (09:38→20:32)
[2017-02-20] MEDS: PANTOPRAZOLE 40 MG INJ IV SCH ×2 (09:38→20:10)
[2017-02-20] MEDS: LEVOTHYROXINE 100 MCG VIAL IV SCH (09:39)
--- NOTE | 2017-02-20 10:46 | CONS ---
Date/Time of Note Date/Time of Note DATE: 02/20/17 TIME: 10:41 Assessment/Plan Assessment/Plan Additional Assessment/Plan Chest x-ray was reviewed from yesterday which is showing patchy scattered infiltrates. CT scan of the chest also was reviewed from yesterday which is showing infiltrative change of the left lower lobe with patchy areas of very minimal consolidation scattered bilaterally. Mediastinal lymphadenopathy is seen. Assessment recommendations; 1. Patient admitted for hemoptysis related to severe thrombocytopenia causing it without hemorrhage. 2. Recent history of respiratory failure due to severe bilateral pneumonia. 3. CML. 4. Renal insufficiency. 5. Difficult to rule out superimposed pneumonia. Continue current treatment. Patient hemoptysis has subsided since he has received platelet outpatient. Continue current supportive care. Consultation Date/Type/Reason Admit Date/Time 02/19/17 Date of Consultation: Feb 20, 2017 Type of Consultation: Pulmonary Reason for Consultation Pulmonary consultation is requested for evaluation of hemoptysis. History of anemia; patient is a pleasant 71-year-old white male who was brought into the emergency room by the family with complaints of having coughing of blood for the last 1 day. The patient had a very long-standing hospital recently with the patient was admitted for respiratory failure was on ventilator for a while was successfully extubated transferred to medical floor and then subsequently discharged a few days ago. The patient also has a history of CML with severe thrombocytopenia and anemia and has received multiple packed RBCs as well as platelet transfusions during his recent stay. He is getting somewhat better now denies any chest pain, fever or chills. Denies any sputum production. According to hemoptysis is improving. Past medical history; next 1. Patient with history of CML. 2. Refractory tubal cytopenia. 3. History of recent alveolar hemorrhage. 4. Recent severe bilateral pneumonia. 5. Renal insufficiency. 6. COPD. Next Medications; reviewed. Allergies; none. Social history; she has recently quit smoking but was not a heavy smoker. Family history; patient is he has 2 children. No history of any malignancy in the family. 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 Review of systems; denies any headache, seizures. Any sinus symptoms. Any chest pain, angina. As of shortness of breath. Still complains of mild hemoptysis. Denies any fever, chills. Any abdominal pain, nausea vomiting. Any melena hematochezia. Any other overt bleeding. Denies any further weight loss. Has fair appetite. Complains of skin bruising. General exam; elderly male, currently in no distress awake and alert. Social History Smoking Status: Former smoker Exam/Review of Systems Vital Signs Vitals Vital Signs Date Time Temp Pulse Resp B/P Pulse Ox O2 Delivery O2 Flow Rate FiO2 02/20/17 10:02 97.8 104 16 124/64 100 Mask 15.0 Exam HEENT exam; supple neck, no JVD. No lymphadenopathy. Midline trachea. With her milia. Pharynx is clear. Patient is edentulous. Pupils are midsize and reactive to light. Chest exam; diminished but clear breath sounds bilaterally. S1-S2 audible, no murmurs. Regular rhythm. Abdomen examination; soft, nondistended, nontender. Bowel sounds audible. Extremity exam; no peripheral edema. No clubbing. +1+ bilaterally. LENS EDGE GRINDER MACHINE examination; cranial nerves are grossly intact there is no deficit. Results Result Diagram: 02/19/17 1546 02/19/17 1546 Results 24 hrs Laboratory Tests Test 02/19/17 15:38 02/19/17 15:46 02/19/17 18:50 02/19/17 19:45 Lactic Acid Level 1.4 2.1 White Blood Count 15.2 #H Red Blood Count 2.94 L Hemoglobin 8.3 L Hematocrit 26.2 L Mean Corpuscular Volume 89.1 Mean Corpuscular Hemoglobin 28.2 L Mean Corpuscular Hemoglobin Concent 31.7 L Red Cell Distribution Width 15.1 H Platelet Count 10 *L Mean Platelet Volume 10.0 Neutrophils % 39.0 Band Neutrophils % 1.0 Lymphocytes % 30.0 Monocytes % 26.0 H Myelocytes % 4.0 H Neutrophils # 5.9 Lymphocytes # 4.6 H Monocytes # 4.0 H Myelocytes # 0.6 Platelet Estimate PLT APPEAR DECREASED Hypochromasia 1+ Anisocytosis 1+ Macrocytosis 1+ Prothrombin Time 14.8 H Prothrombin Time Ratio 1.2 INR International Normalized Ratio 1.16 Activated Partial Thromboplast Time 33.6 Sodium Level 145 H Potassium Level 3.7 Chloride Level 104 Carbon Dioxide Level 25 Anion Gap 20 H Blood Urea Nitrogen 36 H Creatinine 1.41 H Glucose Level 122 Calcium Level 8.5 Total Bilirubin 0.4 Direct Bilirubin 0.00 Indirect Bilirubin 0.4 Aspartate Amino Transf (AST/SGOT) 27 Alanine Aminotransferase (ALT/SGPT) 23 Alkaline Phosphatase 79 Troponin I < 0.012 Total Protein 9.8 H Albumin 3.8 Globulin 6.00 H Albumin/Globulin Ratio 0.63 Magnesium Level 1.3 L Thyroid Stimulating Hormone (TSH) 6.620 H Test 02/19/17 20:20 02/19/17 22:00 Lactic Acid Level 2.5 H 2.9 H Medications Medications Current Medications Metoclopramide HCl (Reglan) 10 mg Q6H PRN IV NAUSEA AND/OR VOMITING; Start 02/19 at 20:00 Acetaminophen (Tylenol Tab) 650 mg Q6H PRN PO PAIN LEVEL 1-3 OR FEVER; Start at 20:00 Morphine Sulfate (morphine) 2 mg Q4H PRN IV PAIN LEVEL 7-10; Start 02/19/17 at 20:00 Levothyroxine Sodium (Synthroid Iv) 50 mcg DAILY IV Last administered on 09:39; Admin Dose 50 MCG; Start 02/20/17 at 09:00 Pantoprazole (Protonix Iv) 40 mg DAILY IV Last administered on 02/20/17 09:38; Admin Dose 40 MG; Start 02/19/17 at 20:00 Acetaminophen 650 mg 650 mg Q6H PRN [place] PAIN AND OR ELEVATED TEMP; Start at 20:00 Cefepime HCl 50 ml @ 100 mls/hr Q12 IVPB Last administered on 02/20/17 09:38; Admin Dose 100 MLS/HR; Start 02/20/17 at 09:00 Vancomycin HCl (Vancocin) 250 ml @ 125 mls/hr Q24H IVPB ; Start 02/20/17 at 15: 00 MYESHA OLIVER Feb 20, 2017 10:46
--- NOTE | 2017-02-20 13:56 | PN ---
Date/Time of Note Date/Time of Note DATE: 02/20/17 TIME: 13:55 Assessment/Plan VTE Prophylaxis VTE Prophylaxis Intervention: SCD's Assessment/Plan Assessment/Plan 1) Hemoptysis with possible mass in the right mainstem bronchus 2) Thrombocytopenia, critical, PLT = 10 - 1 unit of PLT transfused in the ER 3) CML with Anemia, microcytic and hypochromic, Hgb = 8. - 2 uPRBCs transfused in the ER 4) Emphysema with respiratory distress requiring O2 via Non-Rebreather, patient tolerating well 5) Multifocal pneumonia, bilateral, unchanged from 02/03/17 - ABX PLAN: Continue resp support Patient has been weaned down to facemask Commence clear diet / continue supportive care / continue to wean O2 Await GI and hematology recs Appreciate pulm input Prophylaxis: SCDs / protonix Evaluation tome >35mins Subjective 24 Hr Interval Summary Free Text/Dictation Patient seen and examined. feels well, no further bleeding so far Exam/Review of Systems Vital Signs Vitals Vital Signs Date Time Temp Pulse Resp B/P Pulse Ox O2 Delivery O2 Flow Rate FiO2 02/20/17 13:00 102 02/20/17 12:00 97.8 16 117/62 100 Mask 15.0 Exam HEENT exam; supple neck, no JVD. No lymphadenopathy. Midline trachea. . Pharynx is clear. Patient is edentulous. Pupils are midsize and reactive to light. Chest exam; diminished but clear breath sounds bilaterally. S1-S2 audible, no murmurs. Regular rhythm. Abdomen examination; soft, nondistended, nontender. Bowel sounds audible. Extremity exam; no peripheral edema. No clubbing. +1+ bilaterally. PORT PATROL OFFICER examination; cranial nerves are grossly intact there is no deficit. Skin: ecchymosis Results Result Diagram: 02/19/17 1546 02/19/17 1546 Results 24 hrs Laboratory Tests Test 02/19/17 15:38 02/19/17 15:46 02/19/17 18:50 02/19/17 19:45 Lactic Acid Level 1.4 2.1 White Blood Count 15.2 #H Red Blood Count 2.94 L Hemoglobin 8.3 L Hematocrit 26.2 L Mean Corpuscular Volume 89.1 Mean Corpuscular Hemoglobin 28.2 L Mean Corpuscular Hemoglobin Concent 31.7 L Red Cell Distribution Width 15.1 H Platelet Count 10 *L Mean Platelet Volume 10.0 Neutrophils % 39.0 Band Neutrophils % 1.0 Lymphocytes % 30.0 Monocytes % 26.0 H Myelocytes % 4.0 H Neutrophils # 5.9 Lymphocytes # 4.6 H Monocytes # 4.0 H Myelocytes # 0.6 Platelet Estimate PLT APPEAR DECREASED Hypochromasia 1+ Anisocytosis 1+ Macrocytosis 1+ Prothrombin Time 14.8 H Prothrombin Time Ratio 1.2 INR International Normalized Ratio 1.16 Activated Partial Thromboplast Time 33.6 Sodium Level 145 H Potassium Level 3.7 Chloride Level 104 Carbon Dioxide Level 25 Anion Gap 20 H Blood Urea Nitrogen 36 H Creatinine 1.41 H Glucose Level 122 Calcium Level 8.5 Total Bilirubin 0.4 Direct Bilirubin 0.00 Indirect Bilirubin 0.4 Aspartate Amino Transf (AST/SGOT) 27 Alanine Aminotransferase (ALT/SGPT) 23 Alkaline Phosphatase 79 Troponin I < 0.012 Total Protein 9.8 H Albumin 3.8 Globulin 6.00 H Albumin/Globulin Ratio 0.63 Magnesium Level 1.3 L Thyroid Stimulating Hormone (TSH) 6.620 H Test 02/19/17 20:20 02/19/17 22:00 Lactic Acid Level 2.5 H 2.9 H Medications Medications Current Medications Metoclopramide HCl (Reglan) 10 mg Q6H PRN IV NAUSEA AND/OR VOMITING; Start 02/19 at 20:00 Acetaminophen (Tylenol Tab) 650 mg Q6H PRN PO PAIN LEVEL 1-3 OR FEVER; Start at 20:00 Morphine Sulfate (morphine) 2 mg Q4H PRN IV PAIN LEVEL 7-10; Start 02/19/17 at 20:00 Levothyroxine Sodium (Synthroid Iv) 50 mcg DAILY IV Last administered on 09:39; Admin Dose 50 MCG; Start 02/20/17 at 09:00 Pantoprazole (Protonix Iv) 40 mg DAILY IV Last administered on 02/20/17 09:38; Admin Dose 40 MG; Start 02/19/17 at 20:00 Acetaminophen 650 mg 650 mg Q6H PRN IN PAIN AND OR ELEVATED TEMP; Start at 20:00 Cefepime HCl 50 ml @ 100 mls/hr Q12 IVPB Last administered on 4/6/17at 09:38; Admin Dose 100 MLS/HR; Start 02/20/17 at 09:00 Vancomycin HCl (Vancocin) 250 ml @ 125 mls/hr Q24H IVPB ; Start 02/20/17 at 15: 00 EZE LYLES Feb 20, 2017 13:56
[2017-02-20] MEDS: VANCOMYCIN 1 GM in NS 250 ML IVPB SCH (15:46)
[2017-02-20] MEDS ORDERED: MAGNESIUM SULFATE 2 GM/50 ML 50 ML IVPB ONE (17:00)
[2017-02-21] VITALS (24 sets, daily range): BP systolic 81–128; BP diastolic 36–72; PULSE 76–101; RESP 16–23
[2017-02-21 05:29] LABS: ADD SCAN DIFF NO
[2017-02-21 05:31] LABS: ABNORMAL IP MESSAGE 1; HEMATOCRIT 17.8 % (42.0-52.0); MEAN CORPUSCULAR HEMOGLOBIN 28.8 pg (29.0-33.0); MEAN CORPUSCULAR VOLUME 89.9 fl (82.0-101.0); MEAN PLATELET VOLUME 13.1 fl (7.4-10.4); RED BLOOD COUNT 1.98 10^6/ul (4.70-6.10); RED CELL DISTRIBUTION WIDTH 14.9 % (11.5-14.5); WHITE BLOOD COUNT 5.9 10^3/ul (4.8-10.8)
[2017-02-21 05:52] LABS: ALBUMIN 2.8 g/dl (3.3-4.9); BILIRUBIN,INDIRECT 0.5 mg/dl (0-1.1); BILIRUBIN,TOTAL 0.5 mg/dl (0.2-1.3); CALCIUM 7.9 mg/dl (8.4-10.2); CREATININE 1.21 mg/dl (0.61-1.24); POTASSIUM 3.6 mmol/L (3.5-5.1); TOTAL PROTEIN 7.1 g/dl (6.1-8.1)
[2017-02-21 05:55] LABS: PLATELET COUNT 6 10^3/UL (140-415)
[2017-02-21 05:58] LABS: HEMOGLOBIN 5.7 g/dl (14.0-18.0)
[2017-02-21] MEDS ORDERED: SOD CHLORIDE 0.9% 250 ML IV* ONE (06:24)
--- NOTE | 2017-02-21 08:38 | PN ---
Date/Time of Note Date/Time of Note DATE: 02/21/17 TIME: 08:37 Assessment/Plan VTE Prophylaxis VTE Prophylaxis Intervention: SCD's VTE Contraindication Reason: bleeding, thrombocytopenia Lines/Catheters [facility] Urinary Cath still in place: No (NA ) Assessment/Plan Assessment/Plan 1) Hemoptysis with possible mass in the right mainstem bronchus 2) Thrombocytopenia, critical, Patient is known to be refractory to platelet transfusions 3) Myelodysplastic syndrome with Anemia, microcytic and hypochromic, 4) Emphysema with respiratory distress requiring O2 via Non-Rebreather, patient tolerating well 5) Multifocal pneumonia, bilateral, unchanged from 02/03/17 PLAN: Patient is planned for transfusion of 2 units of packed red cells and platelets today from [facility] 2/2 antibodies Patient likely needs bronchoscopy to evaluate possible lung mass but d/t thrombocytopenia, pulm cannot proceed at this time / probably when slightly more stable Continue abx , will advance diet/ continue supportive care / continue to wean O2 Stool occult blood testing Await GI and hematology recs Appreciate pulm input Prophylaxis: SCDs / protonix Evaluation tome >35mins Subjective 24 Hr Interval Summary Free Text/Dictation spoke with pulm and hemeonc at bedside no further hemoptysis Exam/Review of Systems Vital Signs Vitals Vital Signs Date Time Temp Pulse Resp B/P Pulse Ox O2 Delivery O2 Flow Rate FiO2 02/21/17 06:00 82 20 92/53 97 Nasal Cannula 4.0 02/21/17 04:00 97.2 Intake and Output 02/20/17 02/20/17 02/21/17 14:59 22:59 06:59 Intake Total 400 ml 500 ml Output Total 700 ml Balance -300 ml 500 ml Exam HEENT exam; supple neck, no JVD. No lymphadenopathy. Midline trachea. . Pharynx is clear. Patient is edentulous. Pupils are midsize and reactive to light. Chest exam; diminished but clear breath sounds bilaterally. S1-S2 audible, no murmurs. Regular rhythm. Abdomen examination; soft, nondistended, nontender. Bowel sounds audible. Extremity exam; no peripheral edema. No clubbing. +1+ bilaterally. GEOGRAPHIC INFORMATION SYSTEMS MANAGER examination; cranial nerves are grossly intact there is no deficit. Skin: ecchymosis Results Result Diagram: 02/21/1744402/21/17444 Results 24 hrs Laboratory Tests Test 02/21/17 04:45 White Blood Count 5.9 # Red Blood Count 1.98 #L Hemoglobin 5.7 #*L Hematocrit 17.8 #L Mean Corpuscular Volume 89.9 Mean Corpuscular Hemoglobin 28.8 L Mean Corpuscular Hemoglobin Concent 32.0 Red Cell Distribution Width 14.9 H Platelet Count 6 #*L Mean Platelet Volume 13.1 #H Sodium Level 140 Potassium Level 3.6 Chloride Level 110 Carbon Dioxide Level 26 Anion Gap 8 # Blood Urea Nitrogen 33 H Creatinine 1.21 Glucose Level 100 Calcium Level 7.9 L Magnesium Level 2.0 Total Bilirubin 0.5 Direct Bilirubin 0.00 Indirect Bilirubin 0.5 Aspartate Amino Transf (AST/SGOT) 19 Alanine Aminotransferase (ALT/SGPT) 26 Alkaline Phosphatase 65 Total Protein 7.1 # Albumin 2.8 #L Medications Medications Current Medications Metoclopramide HCl (Reglan) 10 mg Q6H PRN IV NAUSEA AND/OR VOMITING; Start 02/19 at 20:00 Acetaminophen (Tylenol Tab) 650 mg Q6H PRN PO PAIN LEVEL 1-3 OR FEVER; Start at 20:00 Morphine Sulfate (morphine) 2 mg Q4H PRN IV PAIN LEVEL 7-10; Start 02/19/17 at 20:00 Levothyroxine Sodium (Synthroid Iv) 50 mcg DAILY IV Last administered on 09:39; Admin Dose 50 MCG; Start 02/20/17 at 09:00 Acetaminophen 650 mg 650 mg Q6H PRN [place] PAIN AND OR ELEVATED TEMP; Start at 20:00 Cefepime HCl 50 ml @ 100 mls/hr Q12 IVPB Last administered on 02/20/17 20:32; Admin Dose 100 MLS/HR; Start 02/20/17 at 09:00 Vancomycin HCl (Vancocin) 250 ml @ 125 mls/hr Q24H IVPB Last administered on 15:46; Admin Dose 125 MLS/HR; Start 02/20/17 at 15:00 Pantoprazole (Protonix Iv) 40 mg BID IV Last administered on 02/20/17 20:10; Admin Dose 40 MG; Start 02/20/17 at 21:00 EZE LYLES Feb 21, 2017 08:38
[2017-02-21] MEDS: CEFEPIME 2GM/50 ML (PMX) 50 ML IVPB SCH ×2 (10:18→21:04)
[2017-02-21] MEDS: LEVOTHYROXINE 100 MCG VIAL IV SCH (10:18)
[2017-02-21] MEDS: PANTOPRAZOLE 40 MG INJ IV SCH ×2 (10:18→20:11)
--- NOTE | 2017-02-21 10:31 | CONS ---
Date/Time of Note Date/Time of Note DATE: 02/21/17 TIME: 10:28 Consult Date/Type/Reason Admit Date/Time Feb 20, 2017 at 12:38 Initial Consult Date 02/20/17 Type of Consultation: Pulmonary Subjective Patient awake alert oriented this morning comfortable on nasal cannula No further hemoptysis. Denies shortness of breath Objective Vital Signs Date Time Temp Pulse Resp B/P Pulse Ox O2 Delivery O2 Flow Rate FiO2 02/21/17 09:00 80 20 108/56 97 Nasal Cannula 4.0 02/21/17 08:00 98.0 Intake and Output 02/20/17 02/20/17 02/21/17 14:59 22:59 06:59 Intake Total 400 ml 500 ml Output Total 700 ml Balance -300 ml 500 ml Exam GENERAL: Thin elderly Albanian gentleman awake alert oriented comfortable at rest VITAL SIGNS: per chart NECK: Supple. No JVD or lymphadenopathy. CARDIAC EXAM: S1, S2. No added sounds or murmurs. CHEST: Diminished air entry bilaterally with few rales ABDOMEN: Soft, nontender. No guarding or rebound. EXTREMITIES: No cyanosis, clubbing or edema. NEUROLOGIC: Generalized weakness. No focal deficits. Results/Medications Result Diagram: 02/21/175 02/21/[address] chest Possible right endobronchial lesion in right mainstem bronchus Several spiculated lesions in the right lung concerning for possible primary lung cancer Evidence of emphysema Laboratory Tests Test 02/21/17 04:45 White Blood Count 5.9 # Red Blood Count 1.98 #L Hemoglobin 5.7 #*L Hematocrit 17.8 #L Mean Corpuscular Volume 89.9 Mean Corpuscular Hemoglobin 28.8 L Mean Corpuscular Hemoglobin Concent 32.0 Red Cell Distribution Width 14.9 H Platelet Count 6 #*L Mean Platelet Volume 13.1 #H Sodium Level 140 Potassium Level 3.6 Chloride Level 110 Carbon Dioxide Level 26 Anion Gap 8 # Blood Urea Nitrogen 33 H Creatinine 1.21 Glucose Level 100 Calcium Level 7.9 L Magnesium Level 2.0 Total Bilirubin 0.5 Direct Bilirubin 0.00 Indirect Bilirubin 0.5 Aspartate Amino Transf (AST/SGOT) 19 Alanine Aminotransferase (ALT/SGPT) 26 Alkaline Phosphatase 65 Total Protein 7.1 # Albumin 2.8 #L Medications Current Medications Metoclopramide HCl (Reglan) 10 mg Q6H PRN IV NAUSEA AND/OR VOMITING; Start 02/19 at 20:00 Acetaminophen (Tylenol Tab) 650 mg Q6H PRN PO PAIN LEVEL 1-3 OR FEVER; Start at 20:00 Morphine Sulfate (morphine) 2 mg Q4H PRN IV PAIN LEVEL 7-10; Start 02/19/17 at 20:00 Levothyroxine Sodium (Synthroid Iv) 50 mcg DAILY IV Last administered on 10:18; Admin Dose 50 MCG; Start 02/20/17 at 09:00 Acetaminophen 650 mg 650 mg Q6H PRN [place] PAIN AND OR ELEVATED TEMP; Start at 20:00 Cefepime HCl 50 ml @ 100 mls/hr Q12 IVPB Last administered on 02/21/17 10:18; Admin Dose 100 MLS/HR; Start 02/20/17 at 09:00 Vancomycin HCl (Vancocin) 250 ml @ 125 mls/hr Q24H IVPB Last administered on 15:46; Admin Dose 125 MLS/HR; Start 02/20/17 at 15:00 Pantoprazole (Protonix Iv) 40 mg BID IV Last administered on 02/21/17 10:18; Admin Dose 40 MG; Start 02/20/17 at 21:00 Assessment/Plan Chief Complaint/Hosp Course Assessment 1. 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 Intermittent hemoptysis secondary to low platelet count 3. Recently ruled out for TB 4. Questionable endobronchial lesion right mainstem bronchus and spiculated lesions in the right lung concerning for primary lung cancer 5. Significant pancytopenia secondary to CML 6. Underlying significant COPD on chest CT Plan 1. Platelet and hemoglobin transfusion per hematology oncology 2. Patient not stable for bronchoscopy and/or CT-guided biopsies at present given low platelet count 3. Continue supplemental O2 as needed 4. Bronchodilator therapy 5. DVT and GI prophylaxis Disposition 1. Patient stable to transfer to telemetry floor Problems: SAMARA STRAUSS MD, [facility] Feb 21, 2017 10:31
--- NOTE | 2017-02-21 10:38 | CONS ---
DATE OF ADMISSION: 02/20/2017 DATE OF CONSULTATION: 02/21/2017 REASON FOR DICTATION: Pancytopenia, chronic myelomonocytic leukemia (myelodysplastic syndrome). PHYSICIAN REQUESTING CONSULTATION: Dr. Hong. Dear Dr. Hong: Thank you very much for asking me to see this very interesting and pleasant gentleman in hematologic consultation. As you know, Mr. Townsend is a 71-year-old male who has been hospital ized multiple times in the past several months. The patient was hospitalized here 2 months ago with respiratory failure felt to possibly be related to influenza induced pneumonia and pneumonitis. Th e patient then was hospitalized here 2 weeks ago with pancytopenia and both upper GI bleeding and he moptysis. The patient has had pancytopenia and required transfusions with red blood cells and platelets. Unfo rtunately, the patient has developed alloantibodies and is increasingly refractory to transfusions. The patient is admitted at this time to [facility] with either hemoptysis or hemat emesis or both. It is somewhat difficult to tell. On admission, the patient had a white count of 15,200 with an absolute neutrophil count of 5900, abs olute lymphocyte count of 4600 and absolute monocytes of 4000, hemoglobin was 8.3, hematocrit 26.2 a nd platelet count was 10,000. The patient has received transfusions with 2 units of packed red bloo d cells and 2 units of platelet pheresis. The platelets were administered on 02/19/2017 and red blo od cells on 02/20/2017. This morning, white count is 5900, hemoglobin 5.7, hematocrit 17.8 and plat elets 6000. Other laboratory includes a comprehensive metabolic panel which is normal except for an albumin of 2.8. Calcium is 7.9, BUN 33. Protime is 14.8 seconds, INR of 1.16 and PTT is 33.6 seco nds. Imaging studies have included a CT angiogram of the chest and this shows no evidence of pulmonary em bolism. There were extensive emphysematous changes seen bilaterally. Also, bilateral multifocal pn eumonia as well as extensive mucus within the bronchi. A possible mass was seen in the right main s tem bronchus and also a possible mass in the right upper lobe. There were multiple small mediastina l nodes seen and splenomegaly. PAST MEDICAL HISTORY: This patient's past history as noted includes the history of myelomonocytic leukemia/high grade myelodysplastic syndrome. The patient has in the past been treated with azaciti dine as well as with lenalidomide. Neither was of any benefit. The patient also did not respond to erythropoietin. Other history includes a history of non-STEMI type 2. 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 The patient also had some type of surgery done in [facility] approximately 20 years ago. He at this ti me had some GI bleeding. It is unclear if this was a vagotomy and pyloroplasty. SOCIAL HISTORY: The patient is a smoker. He has smoked 1 pack of cigarettes every 3 or 4 days. He has done this for the past 30 years. He has no known exposures to industrial toxins or ionizing ra diation. As noted, he had received two courses of azacitidine in attempt to treat the patient's mye lomonocytic leukemia. PHYSICAL EXAMINATION: GENERAL: At this time reveals a well-developed, thin, but chronically ill-appearing male who is in no acute distress. VITAL SIGNS: Temperature 97.2, pulse 80 per minute and regular, respirations 22 per minute, blood p ressure 92/53, pulse oximetry is 97% on 4 liters of oxygen by nasal cannula. SKIN: Pale with scattered ecchymoses and purpura. HEENT: Normocephalic. No evidence of trauma. Pupils equal, round, react to light and accommodatio n. The conjunctiva and mucosa are pale. There is dried blood in the patient's mouth. Nasal oxygen in place. NECK: Supple, no jugular venous distention or thyroid enlargement. CHEST: Decreased breath sounds diffusely. There are some scattered rhonchi. No wheezing. HEART: Regular sinus rhythm, no S3, S4 or murmurs. ABDOMEN: Flat and soft. The spleen is palpable approximately 6 cm below the left costal margin in the anterior axillary line. There is no ascites. Bowel sounds are active. EXTREMITIES: No clubbing, no edema or cyanosis. No palpable cords or Homans sign. NEUROLOGIC: Normal except for weakness. DISCUSSION: This patient has a high grade myelodysplastic syndrome, i.e., chronic myelomonocytic le ukemia. He does not have chronic myelogenous leukemia as has been repeatedly mentioned in the chart . Unfortunately, the patient has not responded to various therapies for his myelodysplastic syndrome. This has included azacitidine as well as lenalidomide. He also is refractory to erythropoietin. The patient has had increasing requirements for red blood cell and platelet transfusions. The patie nt has developed alloantibodies, two platelets and therefore gets very little increment from platele ts which are transfused and transfusion should be minimized to be given when the patient is only act ively bleeding. On last admission, the patient did have upper GI endoscopy that demonstrated significant gastritis a nd esophagitis which may be a cause for some bleeding. The patient's CT scan on this admission and past admission also suggest the possibility of a right m ain stem bronchus lesion. Certainly, this patient could have a primary lung cancer. As noted, he h as been a smoker. It would be very difficult to perform bronchoscopy on this patient. It would req uire multiple and repeated platelet transfusions with no guarantee that the platelet count would be adequate to perform the procedure even without a biopsy. At this time best therapy we offer will be continued transfusions with red blood cells and platelets as required. Dictated By: OPAL MOSES MD, SR/RADHA Conf#: [id number] DID#: [id number]
--- NOTE | 2017-02-21 11:56 | CONS ---
Date/Time of Note Date/Time of Note DATE: 02/21/17 TIME: 11:51 Assessment/Plan Assessment/Plan Additional Assessment/Plan Severe thrombocytopenia Platelet transfusion per HemeOnc recommendation Continue RBC transfusions as needed Acute anemia Secondary to above Monitor H&H every 8 hours, transfuse 2 units for hemoglobin less than 7.5 Monitor labs Continue PPI therapy EGD 02/10/17: distal esophagitis,severe hemorrhagic gastritis,duodenitis Repeat EGD not planned History of chronic myelogenous leukemia Myelodysplastic syndrome, causing thrombocytopenia and anemia HemeOnc following Platelet transfusion recommendations per HemeOnc Congestive heart failure Pulmonary hypertension Further recommendations depend on clinical course Patient seen in collaboration with Dr. Kovacs Consultation Date/Type/Reason Admit Date/Time Feb 20, 2017 at 12:38 Type of Consultation: Gastroenterology Hx of Present Illness Mr.Zhirayr Townsend is a 71-year-old male who presented to ED secondary to hemoptysis and hematemesis for a few days. Patient was previously hospitalized and treated with EGD that was performed 02/10/[address] Kovacs. EGD on noted: distal esophagitis,severe hemorrhagic gastritis,duodenitis. Patient was discharged home and symptoms started percent after 1 day . At bedside patient is comfortable and denies abdominal pain. Patient is status post 2 units PRBC in ED and currently has another 2 units planned. Patient is also status post 1 unit of platelets and has another 2 bags planned. Currently, no endoscopic procedures are planned and will continue to transfuse per HemeOnc recommendations. Social History Smoking Status: Former smoker Exam/Review of Systems Vital Signs Vitals Vital Signs Date Time Temp Pulse Resp B/P Pulse Ox O2 Delivery O2 Flow Rate FiO2 02/21/17 09:00 80 20 108/56 97 Nasal Cannula 4.0 02/21/17 08:00 98.0 Intake and Output 02/20/17 02/20/17 02/21/17 15:00 23:00 07:00 Intake Total 400 ml 500 ml Output Total 700 ml Balance -700 ml 400 ml 500 ml Exam Constitutional: alert, oriented, well developed, thin Psych: nl mood/affect Head: normocephalic Eyes: EOMI, nl conjunctiva, nl lids ENMT: nl external ears & nose, nl lips & teeth, nl nasal mucosa & septum Respiratory: clear to auscultation, normal air movement Cardiovascular: regular rate and rhythm Gastrointestinal: soft, non tender Musculoskeletal: nl extremities to inspection Neurological: 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 intact Results Result Diagram: 02/21/1744402/21/17444 Results 24 hrs Laboratory Tests Test 02/21/17 04:45 02/21/17 09:20 White Blood Count 5.9 # Red Blood Count 1.98 #L Hemoglobin 5.7 #*L Hematocrit 17.8 #L Mean Corpuscular Volume 89.9 Mean Corpuscular Hemoglobin 28.8 L Mean Corpuscular Hemoglobin Concent 32.0 Red Cell Distribution Width 14.9 H Platelet Count 6 #*L Mean Platelet Volume 13.1 #H Sodium Level 140 Potassium Level 3.6 Chloride Level 110 Carbon Dioxide Level 26 Anion Gap 8 # Blood Urea Nitrogen 33 H Creatinine 1.21 Glucose Level 100 Calcium Level 7.9 L Magnesium Level 2.0 Total Bilirubin 0.5 Direct Bilirubin 0.00 Indirect Bilirubin 0.5 Aspartate Amino Transf (AST/SGOT) 19 Alanine Aminotransferase (ALT/SGPT) 26 Alkaline Phosphatase 65 Total Protein 7.1 # Albumin 2.8 #L Lactic Acid Level 0.9 Medications Medications Current Medications Metoclopramide HCl (Reglan) 10 mg Q6H PRN IV NAUSEA AND/OR VOMITING; Start 02/19 at 20:00 Acetaminophen (Tylenol Tab) 650 mg Q6H PRN PO PAIN LEVEL 1-3 OR FEVER; Start at 20:00 Morphine Sulfate (morphine) 2 mg Q4H PRN IV PAIN LEVEL 7-10; Start 02/19/17 at 20:00 Levothyroxine Sodium (Synthroid Iv) 50 mcg DAILY IV Last administered on 10:18; Admin Dose 50 MCG; Start 02/20/17 at 09:00 Acetaminophen 650 mg 650 mg Q6H PRN [place] PAIN AND OR ELEVATED TEMP; Start at 20:00 Cefepime HCl 50 ml @ 100 mls/hr Q12 IVPB Last administered on 02/21/17 10:18; Admin Dose 100 MLS/HR; Start 02/20/17 at 09:00 Vancomycin HCl (Vancocin) 250 ml @ 125 mls/hr Q24H IVPB Last administered on 15:46; Admin Dose 125 MLS/HR; Start 02/20/17 at 15:00 Pantoprazole (Protonix Iv) 40 mg BID IV Last administered on 02/21/17t 10:18; Admin Dose 40 MG; Start 02/20/17 at 21:00 WENDIE FERNANDEZ Feb 21, 2017 11:56
[2017-02-21 12:18] LABS: EOSINOPHILS # 0.2 10^3/ul (0.0-0.5); LYMPHOCYTES # 2.9 10^3/ul (0.8-2.9); MONOCYTE # 0.7 10^3/ul (0.3-0.9); MYELOCYTES # 0.4; NEUTROPHIL # 1.4 10^3/ul (1.6-7.5); PLATELET ESTIMATE PLT APPEAR DECREASED
[2017-02-21] MEDS: VANCOMYCIN 1 GM in NS 250 ML IVPB SCH (15:20)
[2017-02-21 19:35] LABS: ADD UMIC YES; URINE BILIRUBIN (Dip) NEGATIVE (NEGATIVE); URINE BLOOD (Dip) TRACE (NEGATIVE); URINE COLOR LT. YELLOW (YELLOW); URINE GLUCOSE (Dip) NEGATIVE (NEGATIVE); URINE KETONES (Dip) NEGATIVE (NEGATIVE); URINE LEUKOCYTE ESTERASE (Dip) NEGATIVE (NEGATIVE); URINE NITRITE (Dip) NEGATIVE (NEGATIVE); URINE TOTAL PROTEIN (Dip) TRACE (NEGATIVE); URINE UROBILINOGEN (Dip) 0.2 E.U./dL (0.1-1.0)
[2017-02-21 20:18] LABS: BACTERIA,URINE FEW; URIC ACID CRYSTALS,URINE FEW; URINE RBCS 0-2 /HPF (0)
[2017-02-22] VITALS (22 sets, daily range): BP systolic 111–127; BP diastolic 53–75; PULSE 65–82; RESP 14–28
[2017-02-22 00:32] LABS: HEMATOCRIT 20.6 % (42.0-52.0); HEMOGLOBIN 7.1 g/dl (14.0-18.0)
[2017-02-22 05:14] LABS: ADD SCAN DIFF NO
[2017-02-22 05:37] LABS: POTASSIUM 3.2 mmol/L (3.5-5.1)
[2017-02-22 05:40] LABS: CREATININE 1.22 mg/dl (0.61-1.24)
[2017-02-22 05:41] LABS: CALCIUM 7.7 mg/dl (8.4-10.2)
[2017-02-22 05:55] LABS: ABNORMAL IP MESSAGE 1; HEMATOCRIT 23.2 % (42.0-52.0); HEMOGLOBIN 7.9 g/dl (14.0-18.0); MEAN CORPUSCULAR HEMOGLOBIN 29.2 pg (29.0-33.0); MEAN CORPUSCULAR HGB CONC 34.1 g/dl (32.0-37.0); MEAN CORPUSCULAR VOLUME 85.6 fl (82.0-101.0); MEAN PLATELET VOLUME 11.2 fl (7.4-10.4); RED BLOOD COUNT 2.71 10^6/ul (4.70-6.10); RED CELL DISTRIBUTION WIDTH 15.3 % (11.5-14.5); WHITE BLOOD COUNT 7.2 10^3/ul (4.8-10.8)
[2017-02-22 06:20] LABS: PLATELET COUNT 25 10^3/UL (140-415)
[2017-02-22] MEDS ORDERED: POTASSIUM CHLORIDE (SR) 20 MEQ TAB PO ONE (06:30)
--- NOTE | 2017-02-22 08:34 | CONS ---
Date/Time of Note Date/Time of Note DATE: 02/22/17 TIME: 08:29 Assessment/Plan Assessment/Plan Chief Complaint/Hosp Course Mr.Zhirayr Townsend is a 71-year-old male who presented to ED secondary to hemoptysis and hematemesis for a few days. Patient was previously hospitalized and treated with EGD that was performed 02/10/[address] Kovacs. EGD on noted: distal esophagitis,severe hemorrhagic gastritis,duodenitis. Patient was discharged home and symptoms started percent after 1 day . At bedside patient is comfortable and denies abdominal pain. Patient is status post 2 units PRBC in ED and currently has another 2 units planned. Patient is also status post 1 unit of platelets and has another 2 bags planned. Currently, no endoscopic procedures are planned and will continue to transfuse per HemeOnc recommendations. Problems: Additional Assessment/Plan Severe thrombocytopenia Platelet transfusion per HemeOnc recommendation Continue RBC transfusions as needed Acute anemia Secondary to above Monitor H&H every 8 hours, transfuse 2 units for hemoglobin less than 7.5 Monitor labs Continue PPI therapy EGD 02/10/17: distal esophagitis,severe hemorrhagic gastritis,duodenitis Repeat EGD not planned History of chronic myelogenous leukemia Myelodysplastic syndrome, causing thrombocytopenia and anemia HemeOnc following Platelet transfusion recommendations per HemeOnc Congestive heart failure Pulmonary hypertension Further recommendations depend on clinical course Patient seen in collaboration with Dr. Kovacs Consultation Date/Type/Reason Admit Date/Time Feb 20, 2017 at 12:38 Initial Consult Date 02/20/17 Type of Consultation: Gastroenterology 24 HR Interval Summary Free Text/Dictation Status post 4 units PRBC Hgb stable at 430 [place] diet Exam/Review of Systems Vital Signs Vitals Vital Signs Date Time Temp Pulse Resp B/P Pulse Ox O2 Delivery O2 Flow Rate FiO2 02/22/17 07:00 78 19 123/69 94 Nasal Cannula 4.0 02/22/17 04:00 98.5 02/22/17 02:56 27 Intake and Output 02/21/17 02/21/17 02/22/17 15:00 23:00 07:00 Intake Total 1550 ml 1500 ml 700 ml Output Total 700 ml 560 ml Balance 1550 ml 800 ml 140 ml Exam Constitutional: alert, oriented, well developed, thin Psych: nl mood/affect Head: normocephalic Eyes: EOMI, nl conjunctiva, nl lids ENMT: nl external ears & nose, nl lips & teeth, nl nasal mucosa & septum Respiratory: clear to auscultation, normal air movement Cardiovascular: regular rate and rhythm Gastrointestinal: soft, non tender Musculoskeletal: nl extremities to inspection Neurological: 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 YELLOW Urine Clarity CLEAR Urine pH 5.5 Urine Specific [place] 1.020 Urine Ketones NEGATIVE Urine Nitrite NEGATIVE Urine Bilirubin NEGATIVE Urine Urobilinogen 0.2 E.U./dL Urine Leukocyte Esterase NEGATIVE Urine Microscopic RBC 0-2 Urine Microscopic WBC NONE SEEN Urine Epithelial Cells RARE Urine Uric Acid Crystals FEW Urine Bacteria FEW Urine Hyaline Casts FEW Urine Hemoglobin TRACE Urine Glucose NEGATIVE Urine Total Protein TRACE Hemoglobin 7.1 #L Hematocrit 20.6 L Test 02/22/17 04:30 White Blood Count 7.2 # Red Blood Count 2.71 #L Hemoglobin 7.9 L Hematocrit 23.2 L Mean Corpuscular Volume 85.6 Mean Corpuscular Hemoglobin 29.2 Mean Corpuscular Hemoglobin Concent 34.1 Red Cell Distribution Width 15.3 H Platelet Count 25 #*L Mean Platelet Volume 11.2 H Sodium Level 141 Potassium Level 3.2 L Chloride Level 105 Carbon Dioxide Level 25 Anion Gap 14 Blood Urea Nitrogen 30 H Creatinine 1.22 Glucose Level 113 Calcium Level 7.7 L Medications Medications Current Medications Metoclopramide HCl (Reglan) 10 mg Q6H PRN IV NAUSEA AND/OR VOMITING; Start 02/19 at 20:00 Acetaminophen (Tylenol Tab) 650 mg Q6H PRN PO PAIN LEVEL 1-3 OR FEVER; Start at 20:00 Morphine Sulfate (morphine) 2 mg Q4H PRN IV PAIN LEVEL 7-10; Start 02/19/17 at 20:00 Levothyroxine Sodium (Synthroid Iv) 50 mcg DAILY IV Last administered on t 10:18; Admin Dose 50 MCG; Start 02/20/17 at 09:00 Acetaminophen 650 mg 650 mg Q6H PRN [place] PAIN AND OR ELEVATED TEMP; Start at 20:00 Cefepime HCl 50 ml @ 100 mls/hr Q12 IVPB Last administered on 02/21/17 21:04; Admin Dose 100 MLS/HR; Start 02/20/17 at 09:00 Vancomycin HCl (Vancocin) 250 ml @ 125 mls/hr Q24H IVPB Last administered on 15:20; Admin Dose 125 MLS/HR; Start 02/20/17 at 15:00 Pantoprazole (Protonix Iv) 40 mg BID IV Last administered on 02/21/17 20:11; Admin Dose 40 MG; Start 02/20/17 at 21:00 WENDIE FERNANDEZ Feb 22, 2017 08:34
[2017-02-22] MEDS: PANTOPRAZOLE (EC) 40 MG TAB PO SCH ×2 (09:03→18:34)
[2017-02-22] MEDS: LEVOTHYROXINE 100 MCG VIAL IV SCH (09:03)
[2017-02-22] MEDS: CEFEPIME 2GM/50 ML (PMX) 50 ML IVPB SCH ×2 (09:03→21:29)
[2017-02-22 09:48] LABS: HEMATOCRIT 27.3 % (42.0-52.0); HEMOGLOBIN 9.4 g/dl (14.0-18.0)
[2017-02-22 10:16] LABS: BASOPHIL # 0.1 10^3/ul (0.0-0.1); EOSINOPHILS # 0.4 10^3/ul (0.0-0.5); LYMPHOCYTES # 1.9 10^3/ul (0.8-2.9); MONOCYTE # 2.7 10^3/ul (0.3-0.9); MYELOCYTES # 0.2; NEUTROPHIL # 1.7 10^3/ul (1.6-7.5)
[2017-02-22 10:17] LABS: ANISOCYTOSIS 1+; POLYCHROMASIA 1+
[2017-02-22 10:18] LABS: PLATELET ESTIMATE PLT APPEAR DECREASED
--- NOTE | 2017-02-22 10:28 | PN ---
Date/Time of Note Date/Time of Note DATE: 02/22/17 TIME: 10:25 Assessment/Plan VTE Prophylaxis VTE Prophylaxis Intervention: other (thrombocytopenia) Lines/Catheters IV Catheter Type (from [facility], [place]): [place] Lock Urinary Cath still in place: No (NA ) Assessment/Plan Assessment/Plan Pt with known end stage MDS. Refractory to treatment. Would transfuse as needed but note that platelet alloantibodies are a problem. Platelet transfusions should be reserved for active bleeding or for procedures since the half life of the platelets will be very short. Subjective 24 Hr Interval Summary Free Text/Dictation Pt is comfortably lying in bed. He denies any bleeding or discomfort. Exam/Review of Systems Vital Signs Vitals Vital Signs Date Time Temp Pulse Resp B/P Pulse Ox O2 Delivery O2 Flow Rate FiO2 02/22/17 08:00 74 02/22/17 07:00 19 123/69 94 Nasal Cannula 4.0 02/22/17 04:00 98.5 02/22/17 02:56 27 Intake and Output 02/21/17 02/21/17 02/22/17 15:00 23:00 07:00 Intake Total 1550 ml 1500 ml 700 ml Output Total 700 ml 560 ml Balance 1550 ml 800 ml 140 ml Exam Constitutional: alert, oriented Head: normocephalic Eyes: nl conjunctiva ENMT: nl external ears & nose Neck: supple Respiratory: clear to auscultation Cardiovascular: regular rate and rhythm Gastrointestinal: non-tender, soft Lymph: nl lymph nodes Results Result Diagram: 02/22/17 0929 02/22/17 0430 Results 24 hrs Laboratory Tests Test 02/21/17 11:35 02/21/17 17:40 02/22/17 00:22 02/22/17 04:30 Stool Occult Blood POSITIVE Urine Color LT. YELLOW Urine Clarity CLEAR Urine pH 5.5 Urine Specific [place] 1.020 Urine Ketones NEGATIVE Urine Nitrite NEGATIVE Urine Bilirubin NEGATIVE Urine Urobilinogen 0.2 E.U./dL Urine Leukocyte Esterase NEGATIVE Urine Microscopic RBC 0-2 Urine Microscopic WBC NONE SEEN Urine Epithelial Cells RARE Urine Uric Acid Crystals FEW Urine Bacteria FEW Urine Hyaline Casts FEW Urine Hemoglobin TRACE Urine Glucose NEGATIVE Urine Total Protein TRACE Hemoglobin 7.1 #L 7.9 L Hematocrit 20.6 L 23.2 L White Blood Count 7.2 # Red Blood Count 2.71 #L Mean Corpuscular Volume 85.6 Mean Corpuscular Hemoglobin 29.2 Mean Corpuscular Hemoglobin Concent 34.1 Red Cell Distribution Width 15.3 H Platelet Count 25 #*L Mean Platelet Volume 11.2 H Neutrophils % 23.0 L Lymphocytes % 27.0 Monocytes % 37.0 H Eosinophils % 6.0 Basophils % 1.0 Metamyelocytes % 3.0 H Myelocytes % 3.0 H Neutrophils # 1.7 Lymphocytes # 1.9 Monocytes # 2.7 H Eosinophils # 0.4 Basophils # 0.1 Metamyelocytes # 0.2 Myelocytes # 0.2 Platelet Estimate PLT APPEAR DECREASED Polychromasia 1+ Anisocytosis 1+ Sodium Level 141 Potassium Level 3.2 L Chloride Level 105 Carbon Dioxide Level 25 Anion Gap 14 Blood Urea Nitrogen 30 H Creatinine 1.22 Glucose Level 113 Calcium Level 7.7 L Test 02/22/17 09:29 Hemoglobin 9.4 L Hematocrit 27.3 L Medications Medications Current Medications Metoclopramide HCl (Reglan) 10 mg Q6H PRN IV NAUSEA AND/OR VOMITING; Start 02/19 at 20:00 Acetaminophen (Tylenol Tab) 650 mg Q6H PRN PO PAIN LEVEL 1-3 OR FEVER; Start at 20:00 Morphine Sulfate (morphine) 2 mg Q4H PRN IV PAIN LEVEL 7-10; Start 02/19/17 at 20:00 Levothyroxine Sodium (Synthroid Iv) 50 mcg DAILY IV Last administered on 09:03; Admin Dose 50 MCG; Start 02/20/17 at 09:00 Acetaminophen 650 mg 650 mg Q6H PRN [place] PAIN AND OR ELEVATED TEMP; Start at 20:00 Cefepime HCl 50 ml @ 100 mls/hr Q12 IVPB Last administered on 02/22/17 09:03; Admin Dose 100 MLS/HR; Start 02/20/17 at 09:00 Vancomycin HCl (Vancocin) 250 ml @ 125 mls/hr Q24H IVPB Last administered on 15:20; Admin Dose 125 MLS/HR; Start 02/20/17 at 15:00 Pantoprazole (Protonix Tab) 40 mg BID@06,18 PO Last administered on 02/22/17 09 :03; Admin Dose 40 MG; Start 02/22/17 at 09:00 GONZALO MCDONALD MD Feb 22, 2017 10:28
--- NOTE | 2017-02-22 11:40 | RADRPT ---
PROCEDURE: XR Chest. CLINICAL INDICATION: Shortness of breath. TECHNIQUE: Single frontal view. COMPARISON: 02/19/2017. FINDINGS: There is patchy air space disease bilaterally, unchanged. The right upper lobe nodular density kacie uring approximately 2 cm is unchanged. The heart is enlarged. There is calcification in the aorta consistent with atherosclerosis. There is no pleural effusion. There is no pneumothorax. IMPRESSION: 1. No change from 02/19/2017. RPTAT: QQ .Sunil Souza MD, MD Date Time Electronically viewed and signed by .Sunil Souza MD, MD on 02/22/2017 11:39 .R/
[2017-02-22] MEDS: VANCOMYCIN 1 GM in NS 250 ML IVPB SCH (15:00)
--- NOTE | 2017-02-22 15:30 | CONS ---
Date/Time of Note Date/Time of Note DATE: 02/22/17 TIME: 15:27 Consult Date/Type/Reason Admit Date/Time Feb 20, 2017 at 12:38 Initial Consult Date 02/20/17 Type of Consultation: Pulm Subjective CT chest reviewed in detail. No events overnight. Objective Vital Signs Date Time Temp Pulse Resp B/P Pulse Ox O2 Delivery O2 Flow Rate FiO2 02/22/17 12:00 77 02/22/17 11:00 14 117/68 97 Nasal Cannula 4.0 02/22/17 08:00 98.5 02/22/17 02:56 27 Intake and Output 02/21/17 02/21/17 02/22/17 15:00 23:00 07:00 Intake Total 1550 ml 1500 ml 700 ml Output Total 700 ml 560 ml Balance 1550 ml 800 ml 140 ml Exam NECK: Supple. No JVD or lymphadenopathy. CARDIAC EXAM: S1, S2. No added sounds or murmurs. CHEST: + rhonchi and diminished BS ABDOMEN: Soft, nontender. No guarding or rebound. EXTREMITIES: No cyanosis, clubbing or edema. Results/Medications Result Diagram: 02/22/17 0929 02/22/17 0430 Results 24 hrs Laboratory Tests Test 02/21/17 17:40 02/22/17 00:22 02/22/17 04:30 02/22/17 09:29 Urine Color LT. YELLOW Urine Clarity CLEAR Urine pH 5.5 Urine Specific [place] 1.020 Urine Ketones NEGATIVE Urine Nitrite NEGATIVE Urine Bilirubin NEGATIVE Urine Urobilinogen 0.2 E.U./dL Urine Leukocyte Esterase NEGATIVE Urine Microscopic RBC 0-2 Urine Microscopic WBC NONE SEEN Urine Epithelial Cells RARE Urine Uric Acid Crystals FEW Urine Bacteria FEW Urine Hyaline Casts FEW Urine Hemoglobin TRACE Urine Glucose NEGATIVE Urine Total Protein TRACE Hemoglobin 7.1 #L 7.9 L 9.4 L Hematocrit 20.6 L 23.2 L 27.3 L White Blood Count 7.2 # Red Blood Count 2.71 #L Mean Corpuscular Volume 85.6 Mean Corpuscular Hemoglobin 29.2 Mean Corpuscular Hemoglobin Concent 34.1 Red Cell Distribution Width 15.3 H Platelet Count 25 #*L Mean Platelet Volume 11.2 H Neutrophils % 23.0 L Lymphocytes % 27.0 Monocytes % 37.0 H Eosinophils % 6.0 Basophils % 1.0 Metamyelocytes % 3.0 H Myelocytes % 3.0 H Neutrophils # 1.7 Lymphocytes # 1.9 Monocytes # 2.7 H Eosinophils # 0.4 Basophils # 0.1 Metamyelocytes # 0.2 Myelocytes # 0.2 Platelet Estimate PLT APPEAR DECREASED Polychromasia 1+ Anisocytosis 1+ Sodium Level 141 Potassium Level 3.2 L Chloride Level 105 Carbon Dioxide Level 25 Anion Gap 14 Blood Urea Nitrogen 30 H Creatinine 1.22 Glucose Level 113 Calcium Level 7.7 L Medications Current Medications Metoclopramide HCl (Reglan) 10 mg Q6H PRN IV NAUSEA AND/OR VOMITING; Start 02/19 at 20:00 Acetaminophen (Tylenol Tab) 650 mg Q6H PRN PO PAIN LEVEL 1-3 OR FEVER; Start at 20:00 Morphine Sulfate (morphine) 2 mg Q4H PRN IV PAIN LEVEL 7-10; Start 02/19/17 at 20:00 Levothyroxine Sodium (Synthroid Iv) 50 mcg DAILY IV Last administered on 09:03; Admin Dose 50 MCG; Start 02/20/17 at 09:00 Acetaminophen 650 mg 650 mg Q6H PRN [place] PAIN AND OR ELEVATED TEMP; Start at 20:00 Cefepime HCl 50 ml @ 100 mls/hr Q12 IVPB Last administered on 02/22/17 09:03; Admin Dose 100 MLS/HR; Start 02/20/17 at 09:00 Vancomycin HCl (Vancocin) 250 ml @ 125 mls/hr Q24H IVPB Last administered on 15:20; Admin Dose 125 MLS/HR; Start 02/20/17 at 15:00 Pantoprazole (Protonix Tab) 40 mg BID@06,18 PO Last administered on 02/22/17 09 :03; Admin Dose 40 MG; Start 02/22/17 at 09:00 Miscellaneous Information (*Rx Drug Level Order Reminder*) VANCOMYCIN TROUGH 02/23 AT 1400 ONCE ONCE XX ; Start 02/23/17 at 14:00; Stop 02/23/17 at 14:01 Assessment/Plan Additional Assessment/Plan IMP: 1. 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 Intermittent hemoptysis secondary to low platelet count 3. 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 R Bronchus intermedius endoluminal obstruction--likely mucus; r/o tumor RECS: 1. Would consider bronch to evaluate bronchus intermedius and perform suctioning as needed. He would be high risk for endobronchial bx if this is a tumor in the airway 2. The RUL changes are c/w old TB NILO NASSAR MD Feb 22, 2017 15:30
[2017-02-22 17:30] LABS: HEMATOCRIT 27.2 % (42.0-52.0); HEMOGLOBIN 9.5 g/dl (14.0-18.0)
[2017-02-22] MEDS ORDERED: PANTOPRAZOLE (EC) 40 MG TAB PO SCH (18:00)
--- NOTE | 2017-02-22 19:38 | PN ---
DATE: 02/22/2017 PALLIATIVE CONSULTATION This is a 71-year-old gentleman, who is well known to me from prior hospitalizations, who presented to the emergency room at [facility] with hemoptysis. 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 He has had multiple hospitalizations in the recent past for seps is syndrome and epistaxis secondary to primary diagnosis. The patient has had multiple transfusions in the past and is refractory to blood transfusions, but during this and prior hospitalization, he has been successfully treated and has stopped underlying bleeding from thrombocytopenia in the past. This hospitalization, he is in the intensive care unit. Apparently according to medical records, in the emergency room he was found to be acutely short of breath also. He was ruled out for pulmona ry embolus. Consultations were done by Dr. Jeffrey and Dr. Rao, and the patient is presently stable in the intensive care unit. I have had prior discussions with family members. The son is th e decision maker on behalf of his family. In prior discussions with him, he has told me that he has not told his father about his underlying diagnosis, and further, when I attempted to set up a meeti ng with family members to discuss telling Mr. Townsend his diagnosis, family members did not return my phone call to schedule conferences. Other diagnoses include emphysema, recent history of sepsis syndrome, thrombocytopenia, chronic myelomonocytic leukemia. MEDICATIONS: Please refer to reconciliation sheets. ALLERGIES: NO KNOWN DRUG ALLERGIES. MAJOR MEDICAL PROBLEMS IN THE PAST: As per history of present illness. SOCIAL HISTORY: Past smoker, nondrinker. FAMILY HISTORY: Noncontributory towards this hospitalization. REVIEW OF SYSTEMS: From what I can obtain from patient is entirely as per history of present illnes s. PHYSICAL EXAMINATION: GENERAL: Shows a somewhat ashen-appearing elderly gentleman. VITAL SIGNS: Blood pressure 117/68, pulse of 79 and regular, respirations of 14, 97% saturation on 4 liters FIO2. HEENT: He is normocephalic, atraumatic. Anicteric, acyanotic. CHEST: Distant breath sounds throughout both lung masters. COR: S1, S2, without S3, S4, murmur, gallop, rub. Normal rate and rhythm. ABDOMEN: Grossly benign. NEUROLOGICAL: He is oriented x3. Cranial nerves II-XII are grossly intact. Motor and sensory find ings are grossly within normal limits. ASSESSMENT AND PLAN: I will schedule a followup appointment with the patient's family. He remains a FULL CODE, and I did address this with family members during prior hospitalization, and they did n ot reschedule an appointment. At that time, it was the patient's participants including patient's s on and the patient's cousin. Therefore, I believe that the patient has not been told his diagnosis, unless his oncologist has done so as an outpatient. Therefore, it is unknown what his hopes are; a cceptable quality of life, strength, fears. However, the caregiver's concerns will be addressed whe n I am able to essentially pin down family members for a family conference. His palliative performa nce scale is less than 10%. Pain at this time, he seems to be comfortable; he is not moaning, groan ing, grimacing. There are no legal issues at this time. The patient's son is the surrogate. The pa tient's , my impressions are that she has not been kept up to date with his underlying critical medical illness. There is no post available, there is no advanced directive. Dictated By: JUSTIN DANIELS MD, LP/RADHA Conf#: [id number] DID#: [id number]
[2017-02-23] VITALS (24 sets, daily range): BP systolic 107–146; BP diastolic 47–83; PULSE 65–95; RESP 14–27
[2017-02-23 01:53] LABS: HEMATOCRIT 25.4 % (42.0-52.0); HEMOGLOBIN 8.7 g/dl (14.0-18.0)
[2017-02-23 05:23] LABS: ADD SCAN DIFF NO
[2017-02-23 05:53] LABS: ABNORMAL IP MESSAGE 1; HEMOGLOBIN 8.8 g/dl (14.0-18.0); MEAN CORPUSCULAR HGB CONC 33.8 g/dl (32.0-37.0); MEAN CORPUSCULAR VOLUME 85.8 fl (82.0-101.0); MEAN PLATELET VOLUME 11.8 fl (7.4-10.4); RED BLOOD COUNT 3.03 10^6/ul (4.70-6.10); RED CELL DISTRIBUTION WIDTH 15.1 % (11.5-14.5)
[2017-02-23 05:55] LABS: POTASSIUM 3.6 mmol/L (3.5-5.1)
[2017-02-23] MEDS: PANTOPRAZOLE (EC) 40 MG TAB PO SCH ×2 (05:57→17:27)
[2017-02-23 05:58] LABS: CALCIUM 7.7 mg/dl (8.4-10.2); CREATININE 1.23 mg/dl (0.61-1.24)
[2017-02-23 07:05] LABS: PLATELET COUNT 16 10^3/UL (140-415)
--- NOTE | 2017-02-23 08:51 | CONS ---
Date/Time of Note Date/Time of Note DATE: 02/23/17 TIME: 08:44 Assessment/Plan Assessment/Plan Chief Complaint/Hosp Course Mr.Zhirayr Townsend is a 71-year-old male who presented to ED secondary to hemoptysis and hematemesis for a few days. Patient was previously hospitalized and treated with EGD that was performed 02/10/[address] Kovacs. EGD on noted: distal esophagitis,severe hemorrhagic gastritis,duodenitis. Patient was discharged home and symptoms started percent after 1 day . At bedside patient is comfortable and denies abdominal pain. Patient is status post 2 units PRBC in ED and currently has another 2 units planned. Patient is also status post 1 unit of platelets and has another 2 bags planned. Currently, no endoscopic procedures are planned and will continue to transfuse per HemeOnc recommendations. Problems: Additional Assessment/Plan Severe thrombocytopenia Platelet transfusion per HemeOnc recommendation Continue RBC transfusions as needed Acute anemia Secondary to above Monitor H&H every 8 hours, transfuse 2 units for hemoglobin less than 7.5 Monitor labs Continue PPI therapy EGD 02/10/17: distal esophagitis,severe hemorrhagic gastritis,duodenitis Repeat EGD not planned History of chronic myelogenous leukemia Myelodysplastic syndrome, causing thrombocytopenia and anemia HemeOnc following Platelet transfusion recommendations per HemeOnc Congestive heart failure Pulmonary hypertension Further recommendations depend on clinical course Patient seen in collaboration with Dr. Kovacs Consultation Date/Type/Reason Admit Date/Time Feb 20, 2017 at 12:38 Initial Consult Date 02/20/17 Type of Consultation: Gastroenterology 24 HR Interval Summary Free Text/Dictation Hemoglobin stable Platelet count trending downward Exam/Review of Systems Vital Signs Vitals Vital Signs Date Time Temp Pulse Resp B/P Pulse Ox O2 Delivery O2 Flow Rate FiO2 02/23/17 07:00 68 19 107/47 94 Nasal Cannula 4.0 02/23/17 06:00 98.4 02/22/17 02:56 27 Intake and Output 02/22/17 02/22/17 02/23/17 15:00 23:00 07:00 Intake Total 1150 ml 750 ml 400 ml Output Total 450 ml 1250 ml Balance 1150 ml 300 ml -850 ml Exam Constitutional: alert, oriented, well developed, thin Psych: nl mood/affect Head: normocephalic Eyes: EOMI, nl conjunctiva, nl lids ENMT: nl external ears & nose, nl lips & teeth, nl nasal mucosa & septum Respiratory: clear to auscultation, normal air movement Cardiovascular: regular rate and rhythm Gastrointestinal: soft, non tender Musculoskeletal: nl extremities to inspection Neurological: BILL OF MATERIALS CLERK II-XII intact Results Result Diagram: 02/23/17 0446 02/23/17 0446 Results 24 hrs Laboratory Tests Test 02/22/17 09:29 02/22/17 17:15 02/23/17 01:20 02/23/17 04:46 Hemoglobin 9.4 L 9.5 L 8.7 L 8.8 L Hematocrit 27.3 L 27.2 L 25.4 L 26.0 L White Blood Count 8.0 Red Blood Count 3.03 L Mean Corpuscular Volume 85.8 Mean Corpuscular Hemoglobin 29.0 Mean Corpuscular Hemoglobin Concent 33.8 Red Cell Distribution Width 15.1 H Platelet Count 16 #*L Mean Platelet Volume 11.8 H Sodium Level 140 Potassium Level 3.6 Chloride Level 105 Carbon Dioxide Level 25 Anion Gap 14 Blood Urea Nitrogen 27 H Creatinine 1.23 Glucose Level 100 Calcium Level 7.7 L Medications Medications Current Medications Metoclopramide HCl (Reglan) 10 mg Q6H PRN IV NAUSEA AND/OR VOMITING; Start 02/19 at 20:00 Acetaminophen (Tylenol Tab) 650 mg Q6H PRN PO PAIN LEVEL 1-3 OR FEVER; Start at 20:00 Morphine Sulfate (morphine) 2 mg Q4H PRN IV PAIN LEVEL 7-10; Start 02/19/17 at 20:00 Levothyroxine Sodium (Synthroid Iv) 50 mcg DAILY IV Last administered on 09:03; Admin Dose 50 MCG; Start 02/20/17 at 09:00 Acetaminophen 650 mg 650 mg Q6H PRN [place] PAIN AND OR ELEVATED TEMP; Start at 20:00 Cefepime HCl 50 ml @ 100 mls/hr Q12 IVPB Last administered on 02/22/17 21:29; Admin Dose 100 MLS/HR; Start 02/20/17 at 09:00 Vancomycin HCl (Vancocin) 250 ml @ 125 mls/hr Q24H IVPB Last administered on 4 /8/17at 15:00; Admin Dose 125 MLS/HR; Start 02/20/17 at 15:00 Pantoprazole (Protonix Tab) 40 mg BID@06,18 PO Last administered on 02/23/17t 05 :57; Admin Dose 40 MG; Start 02/22/17 at 09:00 Miscellaneous Information (*Rx Drug Level Order Reminder*) VANCOMYCIN TROUGH 02/23 AT 1400 ONCE ONCE XX ; Start 02/23/17 at 14:00; Stop 02/23/17 at 14:01 WENDIE FERNANDEZ Feb 23, 2017 08:51
[2017-02-23] MEDS: LEVOTHYROXINE 100 MCG VIAL IV SCH (09:20)
[2017-02-23] MEDS: CEFEPIME 2GM/50 ML (PMX) 50 ML IVPB SCH ×2 (09:20→20:51)
--- NOTE | 2017-02-23 09:32 | PN ---
Date/Time of Note Date/Time of Note DATE: 02/23/17 TIME: 09:27 Assessment/Plan VTE Prophylaxis VTE Prophylaxis Intervention: SCD's VTE Contraindication Reason: thrombocytopenia Lines/Catheters IV Catheter Type (from Nrs): Peripheral IV Urinary Cath still in place: No (NA ) Assessment/Plan Assessment/Plan 1. Bronchial narrowing : 2/2 mucus versus possible mass Needs bronchoscopy to assess properly, but risks may outweigh benefits / await pulm final recs or plan 2. Hemoptysis likely 2/2 chronic cough with severe thrombocytopenia 3. Severe chronic Thrombocytopenia 2/2 #4 Patient is known to be refractory to platelet transfusions 4. Myelodysplastic syndrome with Anemia, microcytic and hypochromic, 5. Acute resp distress likely 2/2 COPD exacerbation with chronic emphysema : improved 6. Multifocal pneumonia, bilateral, unchanged from 02/03/17 PLAN: Transfer to [facility] surg Continue abx , will advance diet/ continue supportive care / continue to wean O2 Await pulmonary plan, Prophylaxis: SCDs / protonix Evaluation tome >35mins, reviewed CT images with pulm extensively Subjective 24 Hr Interval Summary Constitutional: no complaints Respiratory: no complaints Gastrointestinal: no complaints Exam/Review of Systems Vital Signs Vitals Vital Signs Date Time Temp Pulse Resp B/P Pulse Ox O2 Delivery O2 Flow Rate FiO2 02/23/17 08:00 65 02/23/17 07:00 19 107/47 94 Nasal Cannula 4.0 02/23/17 06:00 98.4 02/22/17 02:56 27 Intake and Output 02/22/17 02/22/17 02/23/17 15:00 23:00 07:00 Intake Total 1150 ml 750 ml 400 ml Output Total 450 ml 1250 ml Balance 1150 ml 300 ml -850 ml Exam HEENT exam; supple neck, no JVD. No lymphadenopathy. Midline trachea. . Pharynx is clear. Patient is edentulous. Pupils are midsize and reactive to light. Chest exam; diminished but clear breath sounds bilaterally. S1-S2 audible, no murmurs. Regular rhythm. Abdomen examination; soft, nondistended, nontender. Bowel sounds audible. Extremity exam; no peripheral edema. No clubbing. +1+ bilaterally. STUMPER FELLER examination; cranial nerves are grossly intact there is no deficit. Skin: ecchymosis Results Result Diagram: 02/23/17 0446 02/23/17 0446 Results 24 hrs Laboratory Tests Test 02/22/17 09:29 02/22/17 17:15 02/23/17 01:20 02/23/17 04:46 Hemoglobin 9.4 L 9.5 L 8.7 L 8.8 L Hematocrit 27.3 L 27.2 L 25.4 L 26.0 L White Blood Count 8.0 Red Blood Count 3.03 L Mean Corpuscular Volume 85.8 Mean Corpuscular Hemoglobin 29.0 Mean Corpuscular Hemoglobin Concent 33.8 Red Cell Distribution Width 15.1 H Platelet Count 16 #*L Mean Platelet Volume 11.8 H Sodium Level 140 Potassium Level 3.6 Chloride Level 105 Carbon Dioxide Level 25 Anion Gap 14 Blood Urea Nitrogen 27 H Creatinine 1.23 Glucose Level 100 Calcium Level 7.7 L Medications Medications Current Medications Metoclopramide HCl (Reglan) 10 mg Q6H PRN IV NAUSEA AND/OR VOMITING; Start 02/19 at 20:00 Acetaminophen (Tylenol Tab) 650 mg Q6H PRN PO PAIN LEVEL 1-3 OR FEVER; Start at 20:00 Morphine Sulfate (morphine) 2 mg Q4H PRN IV PAIN LEVEL 7-10; Start 02/19/17 at 20:00 Levothyroxine Sodium (Synthroid Iv) 50 mcg DAILY IV Last administered on 09:20; Admin Dose 50 MCG; Start 02/20/17 at 09:00 Acetaminophen 650 mg 650 mg Q6H PRN [place] PAIN AND OR ELEVATED TEMP; Start at 20:00 Cefepime HCl 50 ml @ 100 mls/hr Q12 IVPB Last administered on 02/23/17 09:20; Admin Dose 100 MLS/HR; Start 02/20/17 at 09:00 Vancomycin HCl (Vancocin) 250 ml @ 125 mls/hr Q24H IVPB Last administered on 15:00; Admin Dose 125 MLS/HR; Start 02/20/17 at 15:00 Pantoprazole (Protonix Tab) 40 mg BID@06,18 PO Last administered on 02/23/17 05 :57; Admin Dose 40 MG; Start 02/22/17 at 09:00 Miscellaneous Information (*Rx Drug Level Order Reminder*) VANCOMYCIN TROUGH 02/23 AT 1400 ONCE ONCE XX ; Start 02/23/17 at 14:00; Stop 02/23/17 at 14:01 EZE LYLES Feb 23, 2017 09:32
[2017-02-23 10:08] LABS: EOSINOPHILS # 0.1 10^3/ul (0.0-0.5); LYMPHOCYTES # 1.4 10^3/ul (0.8-2.9); MYELOCYTES # 0.2; NEUTROPHIL # 2.4 10^3/ul (1.6-7.5)
[2017-02-23 10:09] LABS: PLATELET ESTIMATE PLT APPEAR DECREASED
--- NOTE | 2017-02-23 10:58 | PN ---
Date/Time of Note Date/Time of Note DATE: 02/23/17 TIME: 10:56 Assessment/Plan VTE Prophylaxis VTE Prophylaxis Intervention: other (thrombocytopenia) Lines/Catheters IV [facility] Type (from [facility] Peripheral IV Urinary Cath still in place: No (NA ) Assessment/Plan Assessment/Plan Pt is stable. No new suggestions. Unfortunately his marrow function is not going to get better. Subjective 24 Hr Interval Summary Free Text/Dictation Pt feels well and has no bleeding noted Exam/Review of Systems Vital Signs Vitals Vital Signs Date Time Temp Pulse Resp B/P Pulse Ox O2 Delivery O2 Flow Rate FiO2 02/23/17 10:00 81 18 124/65 90 Nasal Cannula 4.0 02/23/17 08:00 98.4 02/22/17 02:56 27 Intake and Output 02/22/17 02/22/17 02/23/17 15:00 23:00 07:00 Intake Total 1150 ml 750 ml 400 ml Output Total 450 ml 1250 ml Balance 1150 ml 300 ml -850 ml Exam Constitutional: alert, oriented Head: normocephalic Eyes: nl conjunctiva ENMT: nl external ears & nose Neck: supple Respiratory: clear to auscultation Cardiovascular: regular rate and rhythm Gastrointestinal: non-tender, soft Results Result Diagram: 02/23/17 0446 02/23/17 0446 Results 24 hrs Laboratory Tests Test 02/22/17 17:15 02/23/17 01:20 02/23/17 04:46 Hemoglobin 9.5 L 8.7 L 8.8 L Hematocrit 27.2 L 25.4 L 26.0 L White Blood Count 8.0 Red Blood Count 3.03 L Mean Corpuscular Volume 85.8 Mean Corpuscular Hemoglobin 29.0 Mean Corpuscular Hemoglobin Concent 33.8 Red Cell Distribution Width 15.1 H Platelet Count 16 #*L Mean Platelet Volume 11.8 H Neutrophils % 30.0 L Band Neutrophils % 7.0 H Lymphocytes % 18.0 Monocytes % 38.0 H Eosinophils % 1.0 Metamyelocytes % 2.0 H Myelocytes % 2.0 H Neutrophils # 2.4 Lymphocytes # 1.4 Monocytes # 3.0 H Eosinophils # 0.1 Metamyelocytes # 0.2 Myelocytes # 0.2 Differential Comment MANUAL DIFF Platelet Estimate PLT APPEAR DECREASED Rouleau OCCASIONAL Sodium Level 140 Potassium Level 3.6 Chloride Level 105 Carbon Dioxide Level 25 Anion Gap 14 Blood Urea Nitrogen 27 H Creatinine 1.23 Glucose Level 100 Calcium Level 7.7 L Medications Medications Current Medications Metoclopramide HCl (Reglan) 10 mg Q6H PRN IV NAUSEA AND/OR VOMITING; Start 02/19 at 20:00 Acetaminophen (Tylenol Tab) 650 mg Q6H PRN PO PAIN LEVEL 1-3 OR FEVER; Start at 20:00 Morphine Sulfate (morphine) 2 mg Q4H PRN IV PAIN LEVEL 7-10; Start 02/19/17 at 20:00 Levothyroxine Sodium (Synthroid Iv) 50 mcg DAILY IV Last administered on 09:20; Admin Dose 50 MCG; Start 02/20/17 at 09:00 Acetaminophen 650 mg 650 mg Q6H PRN IA PAIN AND OR ELEVATED TEMP; Start at 20:00 Cefepime HCl 50 ml @ 100 mls/hr Q12 IVPB Last administered on 02/23/17 09:20; Admin Dose 100 MLS/HR; Start 02/20/17 at 09:00 Vancomycin HCl (Vancocin) 250 ml @ 125 mls/hr Q24H IVPB Last administered on 15:00; Admin Dose 125 MLS/HR; Start 02/20/17 at 15:00 Pantoprazole (Protonix Tab) 40 mg BID@06,18 PO Last administered on 02/23/17 05 :57; Admin Dose 40 MG; Start 02/22/17 at 09:00 Miscellaneous Information (*Rx Drug Level Order Reminder*) VANCOMYCIN TROUGH 02/23 AT 1400 ONCE ONCE XX ; Start 02/23/17 at 14:00; Stop 02/23/17 at 14:01 GONZALO MCDONALD MD Feb 23, 2017 10:58
--- NOTE | 2017-02-23 13:07 | CONS ---
Date/Time of Note Date/Time of Note DATE: 02/23/17 TIME: 13:05 Consult Date/Type/Reason Admit Date/Time Feb 20, 2017 at 12:38 Initial Consult Date 02/20/17 Type of Consultation: Pulm Subjective No events overnight Objective Vital Signs Date Time Temp Pulse Resp B/P Pulse Ox O2 Delivery O2 Flow Rate FiO2 02/23/17 12:00 72 02/23/17 10:00 18 124/65 90 Nasal Cannula 4.0 02/23/17 08:00 98.4 02/22/17 02:56 27 Intake and Output 02/22/17 02/22/17 02/23/17 15:00 23:00 07:00 Intake Total 1150 ml 750 ml 400 ml Output Total 450 ml 1250 ml Balance 1150 ml 300 ml -850 ml Exam NECK: Supple. No JVD or lymphadenopathy. CARDIAC EXAM: S1, S2. No added sounds or murmurs. CHEST: + rhonchi and diminished BS ABDOMEN: Soft, nontender. No guarding or rebound. EXTREMITIES: No cyanosis, clubbing or edema. Results/Medications Result Diagram: 02/23/17 0446 02/23/17 0446 Results 24 hrs Laboratory Tests Test 02/22/17 17:15 02/23/17 01:20 02/23/17 04:46 Hemoglobin 9.5 L 8.7 L 8.8 L Hematocrit 27.2 L 25.4 L 26.0 L White Blood Count 8.0 Red Blood Count 3.03 L Mean Corpuscular Volume 85.8 Mean Corpuscular Hemoglobin 29.0 Mean Corpuscular Hemoglobin Concent 33.8 Red Cell Distribution Width 15.1 H Platelet Count 16 #*L Mean Platelet Volume 11.8 H Neutrophils % 30.0 L Band Neutrophils % 7.0 H Lymphocytes % 18.0 Monocytes % 38.0 H Eosinophils % 1.0 Metamyelocytes % 2.0 H Myelocytes % 2.0 H Neutrophils # 2.4 Lymphocytes # 1.4 Monocytes # 3.0 H Eosinophils # 0.1 Metamyelocytes # 0.2 Myelocytes # 0.2 Differential Comment MANUAL DIFF Platelet Estimate PLT APPEAR DECREASED Rouleau OCCASIONAL Sodium Level 140 Potassium Level 3.6 Chloride Level 105 Carbon Dioxide Level 25 Anion Gap 14 Blood Urea Nitrogen 27 H Creatinine 1.23 Glucose Level 100 Calcium Level 7.7 L Medications Current Medications Metoclopramide HCl (Reglan) 10 mg Q6H PRN IV NAUSEA AND/OR VOMITING; Start 02/19 at 20:00 Acetaminophen (Tylenol Tab) 650 mg Q6H PRN PO PAIN LEVEL 1-3 OR FEVER; Start at 20:00 Morphine Sulfate (morphine) 2 mg Q4H PRN IV PAIN LEVEL 7-10; Start 02/19/17 at 20:00 Levothyroxine Sodium (Synthroid Iv) 50 mcg DAILY IV Last administered on 09:20; Admin Dose 50 MCG; Start 02/20/17 at 09:00 Acetaminophen 650 mg 650 mg Q6H PRN [place] PAIN AND OR ELEVATED TEMP; Start at 20:00 Cefepime HCl 50 ml @ 100 mls/hr Q12 IVPB Last administered on 02/23/17 09:20; Admin Dose 100 MLS/HR; Start 02/20/17 at 09:00 Vancomycin HCl (Vancocin) 250 ml @ 125 mls/hr Q24H IVPB Last administered on 15:00; Admin Dose 125 MLS/HR; Start 02/20/17 at 15:00 Pantoprazole (Protonix Tab) 40 mg BID@06,18 PO Last administered on 02/23/17 05 :57; Admin Dose 40 MG; Start 02/22/17 at 09:00 Miscellaneous Information (*Rx Drug Level Order Reminder*) VANCOMYCIN TROUGH 02/23 AT 1400 ONCE ONCE XX ; Start 02/23/17 at 14:00; Stop 02/23/17 at 14:01 Assessment/Plan Additional Assessment/Plan IMP: 1. 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 Intermittent hemoptysis secondary to low platelet count 3. 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 R Bronchus intermedius endoluminal obstruction--likely mucus; r/o tumor RECS: 1. Would consider bronch to evaluate bronchus intermedius and perform suctioning as needed. He would be high risk for endobronchial bx if this is a tumor in the airway. The larger issue is discussing ultimate goals of care in view of his underlying cancer. 2. The RUL changes are c/w old TB NILO NASSAR MD Feb 23, 2017 13:07
[2017-02-23 14:33] LABS: ADD SCAN DIFF NO
[2017-02-23 14:35] LABS: ABNORMAL IP MESSAGE 1; BASOPHILS % 0.1 % (0.0-2.0); EOSINOPHILS % 0.1 % (0.0-7.0); HEMATOCRIT 29.4 % (42.0-52.0); LYMPHOCYTES # 1.2 10^3/ul (0.8-2.9); MEAN CORPUSCULAR HEMOGLOBIN 29.2 pg (29.0-33.0); MONOCYTE # 3.5 10^3/ul (0.3-0.9); NEUTROPHIL # 3.7 10^3/ul (1.6-7.5); NEUTROPHILS % 42.7 % (39.0-77.0); RED BLOOD COUNT 3.42 10^6/ul (4.70-6.10); RED CELL DISTRIBUTION WIDTH 15.1 % (11.5-14.5); WHITE BLOOD COUNT 8.7 10^3/ul (4.8-10.8)
[2017-02-23 14:38] LABS: MONOCYTES % 40.9 % (0.0-11.0)
[2017-02-23 14:40] LABS: PLATELET COUNT 16 10^3/UL (140-415)
[2017-02-23] MEDS: VANCOMYCIN 1 GM in NS 250 ML IVPB SCH (15:59)
[2017-02-23 22:11] LABS: ADD SCAN DIFF NO
[2017-02-23 22:13] LABS: ABNORMAL IP MESSAGE 1; HEMATOCRIT 28.5 % (42.0-52.0); HEMOGLOBIN 9.6 g/dl (14.0-18.0); MEAN CORPUSCULAR HEMOGLOBIN 28.7 pg (29.0-33.0); MEAN CORPUSCULAR HGB CONC 33.7 g/dl (32.0-37.0); MEAN CORPUSCULAR VOLUME 85.3 fl (82.0-101.0); MEAN PLATELET VOLUME 7.9 fl (7.4-10.4); RED BLOOD COUNT 3.34 10^6/ul (4.70-6.10); RED CELL DISTRIBUTION WIDTH 14.9 % (11.5-14.5); WHITE BLOOD COUNT 8.6 10^3/ul (4.8-10.8)
[2017-02-23 22:35] LABS: PLATELET COUNT 8 10^3/UL (140-415)
[2017-02-23 23:20] LABS: EOSINOPHILS # 0.1 10^3/ul (0.0-0.5); LYMPHOCYTES # 1.8 10^3/ul (0.8-2.9); MONOCYTE # 3.2 10^3/ul (0.3-0.9); NEUTROPHIL # 3.2 10^3/ul (1.6-7.5)
[2017-02-24] VITALS (24 sets, daily range): BP systolic 102–141; BP diastolic 58–90; PULSE 69–112; RESP 15–26
[2017-02-24] MEDS: PANTOPRAZOLE (EC) 40 MG TAB PO SCH ×2 (05:37→18:07)
--- NOTE | 2017-02-24 08:46 | CONS ---
DATE OF ADMISSION: 02/20/2017 DATE OF CONSULTATION: 02/23/2017 HISTORY OF PRESENT ILLNESS: The patient states that he is feeling well. Denies any hemoptysis. No nausea, vomiting, hematemesis, melena or hematochezia. OBJECTIVE: VITAL SIGNS: Temperature 98.5, pulse 78 per minute and regular, respirations 20 per minute, blood p ressure is 132/73, pulse oximetry 92% on 3 liters of oxygen. SKIN: Scattered ecchymoses and pale. HEENT: No mucosal lesions. No scleral icterus. No mucosal telangiectasias. NECK: Supple, no jugular venous distention or thyroid enlargement. CHEST: Clear to auscultation and percussion. No rhonchi, wheezes, rales or rubs. NODES: No palpable lymphadenopathy. ABDOMEN: Soft. No masses or ascites. Spleen is palpable 4 to 6 cm below the left costal margin in the anterior axillary line. EXTREMITIES: No clubbing, edema or cyanosis. No palpable cords or Homans sign. NEUROLOGIC: Normal. LABORATORY DATA: White count 8600, hemoglobin 9.6, hematocrit 28.5, and platelet count of 8000. Th is was on 02/23/2017. ASSESSMENT: 1. Hemoptysis and/or hematemesis due to thrombocytopenia. 2. Pancytopenia secondary to myelodysplastic syndrome. 3. Possible right upper lobe pulmonary mass versus atelectasis due to mucous plug. Only option at this time is to transfuse the patient as needed. Bronchoscopy will be problematic, especially if biopsy is necessary. Even if the patient is straigh t Even if the patient given a prebronchodilator be transfusion, he does not obtain much increment f rom any transfusions. The patient is refractory to all other therapies available for his myelodysplastic syndrome and he i s not a candidate for bone marrow transplant. Dictated By: OPAL MOSES MD SR/RADHA Conf#: [id number] DID#: [id number]
[2017-02-24] MEDS: CEFEPIME 2GM/50 ML (PMX) 50 ML IVPB SCH (08:51)
[2017-02-24] MEDS: LEVOTHYROXINE 100 MCG VIAL IV SCH (08:51)
[2017-02-24 09:52] LABS: ADD SCAN DIFF NO
[2017-02-24 10:01] LABS: ABNORMAL IP MESSAGE 1; HEMATOCRIT 30.2 % (42.0-52.0); HEMOGLOBIN 9.9 g/dl (14.0-18.0); MEAN CORPUSCULAR HEMOGLOBIN 28.7 pg (29.0-33.0); MEAN CORPUSCULAR HGB CONC 32.8 g/dl (32.0-37.0); MEAN CORPUSCULAR VOLUME 87.5 fl (82.0-101.0); MEAN PLATELET VOLUME 11.6 fl (7.4-10.4); RED BLOOD COUNT 3.45 10^6/ul (4.70-6.10); RED CELL DISTRIBUTION WIDTH 15.2 % (11.5-14.5); WHITE BLOOD COUNT 7.5 10^3/ul (4.8-10.8)
[2017-02-24 10:14] LABS: PLATELET COUNT 12 10^3/UL (140-415)
--- NOTE | 2017-02-24 11:36 | CONS ---
Date/Time of Note Date/Time of Note DATE: 02/24/17 TIME: 11:34 Assessment/Plan Assessment/Plan Additional Assessment/Plan Assessment recommendations; next 1. Patient admitted for recurrent hemoptysis due to alveolar hemorrhage from severe refractory tubal cytopenia. 2. Recent history of respiratory failure due to extensive bilateral pneumonia with marked overall improvement. 3. CML. 4. Difficult to rule out superimposed pneumonia. 5. Pulmonary scarring etiology is unclear. 6. Possibly endobronchial lesion on the right mainstem possibly from mucous plug. Patient at extremely high risk of undergoing bronchoscopy. Continue current treatment. Patient can be transfer to the medical floor. At this time I would recommend stopping antibiotics. Consultation Date/Type/Reason Admit Date/Time Feb 20, 2017 at 12:38 Initial Consult Date 02/20/17 Type of Consultation: Pulm 24 HR Interval Summary Free Text/Dictation Patient condition stable. Remains completely awake alert. No further hemoptysis. Denies any shortness of breath, chest pain. General exam; elderly male, awake alert currently in no distress. Exam/Review of Systems Vital Signs Vitals Vital Signs Date Time Temp Pulse Resp B/P Pulse Ox O2 Delivery O2 Flow Rate FiO2 02/24/17 09:00 76 19 128/73 94 Nasal Cannula 4.0 02/24/17 08:00 98.6 02/22/17 02:56 27 Intake and Output 02/23/17 02/23/17 02/24/17 15:00 23:00 07:00 Intake Total 1440 ml 530 ml 80 ml Output Total 600 ml 1550 ml Balance 840 ml 530 ml -1470 ml Exam HEENT examination; supple neck, no JVD. No lymphadenopathy. Midline trachea. No thyromegaly. Patient is edentulous and wears dentures. Pupils are midsize and reactive to light bilaterally. No neck masses. Chest examined; clear to auscultation bilaterally. S1-S2 audible, no murmurs. Regular rhythm. Abdomen examination; soft, nontender. No organomegaly. Bowel sounds audible. Extremity examination; no peripheral edema. Pulses 1+ bilaterally. No clubbing. CAR DRIVER examination; no focal deficit. Results Result Diagram: 02/24/17 0930 02/23/17 0446 Results 24 hrs Laboratory Tests Test 02/23/17 14:20 02/23/17 22:05 02/24/17 09:30 White Blood Count 8.7 8.6 7.5 Red Blood Count 3.42 L 3.34 L 3.45 L Hemoglobin 10.0 L 9.6 L 9.9 L Hematocrit 29.4 L 28.5 L 30.2 L Mean Corpuscular Volume 86.0 85.3 87.5 Mean Corpuscular Hemoglobin 29.2 28.7 L 28.7 L Mean Corpuscular Hemoglobin Concent 34.0 33.7 32.8 Red Cell Distribution Width 15.1 H 14.9 H 15.2 H Platelet Count 16 *L 8 #*L 12 #*L Mean Platelet Volume 12.0 H 7.9 # 11.6 #H Neutrophils % 42.7 37.0 L Lymphocytes % 14.0 L 21.0 Monocytes % 40.9 H 37.0 H Eosinophils % 0.1 1.0 Basophils % 0.1 Nucleated Red Blood Cells % 0.0 Neutrophils # 3.7 3.2 Lymphocytes # 1.2 1.8 Monocytes # 3.5 H 3.2 H Eosinophils # 0.0 0.1 Basophils # 0.0 Nucleated Red Blood Cells # 0.0 Vancomycin Level Trough 9.6 L Reactive Lymphocytes % 4.0 Differential Comment MANUAL DIFF Medications Medications Current Medications Metoclopramide HCl (Reglan) 10 mg Q6H PRN IV NAUSEA AND/OR VOMITING; Start 02/19 at 20:00 Acetaminophen (Tylenol Tab) 650 mg Q6H PRN PO PAIN LEVEL 1-3 OR FEVER; Start at 20:00 Morphine Sulfate (morphine) 2 mg Q4H PRN IV PAIN LEVEL 7-10; Start 02/19/17 at 20:00 Levothyroxine Sodium (Synthroid Iv) 50 mcg DAILY IV Last administered on 08:51; Admin Dose 50 MCG; Start 02/20/17 at 09:00 Acetaminophen 650 mg 650 mg Q6H PRN [place] PAIN AND OR ELEVATED TEMP; Start at 20:00 Cefepime HCl (Maxipime 2gm/50 ml (Pmx)) 50 ml @ 100 mls/hr Q12 IVPB Last administered on 02/24/17 08:51; Admin Dose 100 MLS/HR; Start 02/20/17 at 09:00 Pantoprazole 40 mg 40 mg BID@06,18 PO Last administered on 02/24/17t 05:37; Admin Dose 40 MG; Start 02/22/17 at 09:00 Vancomycin HCl/ Sodium Chloride (Vancocin/NS) 250 ml @ 83.333 mls/ hr Q24H IVPB ; Start 02/24/17 at 15:00 MYESHA OLIVER Feb 24, 2017 11:36
[2017-02-24 13:15] LABS: BASOPHIL # 0.1 10^3/ul (0.0-0.1); EOSINOPHILS # 0.1 10^3/ul (0.0-0.5); LYMPHOCYTES # 1.2 10^3/ul (0.8-2.9); MONOCYTE # 2.4 10^3/ul (0.3-0.9); NEUTROPHIL # 3.5 10^3/ul (1.6-7.5); PLATELET ESTIMATE PLT APPEAR DECREASED
--- NOTE | 2017-02-24 13:40 | PN ---
Date/Time of Note Date/Time of Note DATE: 02/24/17 TIME: 13:40 Assessment/Plan VTE Prophylaxis VTE Prophylaxis Intervention: SCD's VTE Contraindication Reason: thrombocytopenia Lines/Catheters [facility] Peripheral IV Urinary Cath still in place: No (NA ) Assessment/Plan Chief Complaint/Hosp Course Assessment/Plan: 71 M with: 1. Bronchial narrowing : 2/2 mucus versus possible mass Needs bronchoscopy to assess properly, but risks may outweigh benefits / await pulm final recs or plan 2. Hemoptysis likely 2/2 chronic cough with severe thrombocytopenia - occurred again today - will check CBC today, consider another plt transfusion as well 3. Severe chronic Thrombocytopenia 2/2 #4 - Patient is known to be refractory to platelet transfusions - monitor CBC 4. Myelodysplastic syndrome with Anemia, microcytic and hypochromic - f/u Heme/Onc rec's 5. Acute resp distress likely 2/2 COPD exacerbation with chronic emphysema : improved 6. Multifocal pneumonia, bilateral, unchanged from 02/03/17 - off abx, wean O2 as tolerated. Prophylaxis: SCDs / protonix Critical care evaluation time = 45 mins Problems: Subjective 24 Hr Interval Summary Free Text/Dictation Pt had hemoptysis today, seen by Heme Onc and pulm teams today earlier. Exam/Review of Systems Vital Signs Vitals Vital Signs Date Time Temp Pulse Resp B/P Pulse Ox O2 Delivery O2 Flow Rate FiO2 02/24/17 12:00 98.6 82 22 132/87 97 Nasal Cannula 3.0 02/22/17 02:56 27 Intake and Output 02/23/17 02/23/17 02/24/17 15:00 23:00 07:00 Intake Total 1440 ml 530 ml 80 ml Output Total 600 ml 1550 ml Balance 840 ml 530 ml -1470 ml Exam GEN: AAO x 3, in mild distress HEENT exam; supple neck, no JVD. No lymphadenopathy. Midline trachea. Pharynx is clear. Patient is edentulous. Pupils are midsize and reactive to light. Chest exam; diminished but clear breath sounds bilaterally. S1-S2 audible, no murmurs. Regular rhythm. Abdomen examination; soft, nondistended, nontender. Bowel sounds audible. Extremity exam; no peripheral edema. No clubbing. +1+ bilaterally. SUPERVISOR SANDBLASTER examination; cranial nerves are grossly intact there is no deficit. Skin: ecchymosis Results Result Diagram: 02/24/17 0930 02/23/17 0446 Results 24 hrs Laboratory Tests Test 02/23/17 14:20 02/23/17 22:05 02/24/17 09:30 White Blood Count 8.7 8.6 7.5 Red Blood Count 3.42 L 3.34 L 3.45 L Hemoglobin 10.0 L 9.6 L 9.9 L Hematocrit 29.4 L 28.5 L 30.2 L Mean Corpuscular Volume 86.0 85.3 87.5 Mean Corpuscular Hemoglobin 29.2 28.7 L 28.7 L Mean Corpuscular Hemoglobin Concent 34.0 33.7 32.8 Red Cell Distribution Width 15.1 H 14.9 H 15.2 H Platelet Count 16 *L 8 #*L 12 #*L Mean Platelet Volume 12.0 H 7.9 # 11.6 #H Neutrophils % 42.7 37.0 L 46.0 Lymphocytes % 14.0 L 21.0 16.0 Monocytes % 40.9 H 37.0 H 32.0 H Eosinophils % 0.1 1.0 1.0 Basophils % 0.1 1.0 Nucleated Red Blood Cells % 0.0 Neutrophils # 3.7 3.2 3.5 Lymphocytes # 1.2 1.8 1.2 Monocytes # 3.5 H 3.2 H 2.4 H Eosinophils # 0.0 0.1 0.1 Basophils # 0.0 0.1 Nucleated Red Blood Cells # 0.0 Vancomycin Level Trough 9.6 L Reactive Lymphocytes % 4.0 1.0 Differential Comment MANUAL DIFF Band Neutrophils % 2.0 Platelet Estimate PLT APPEAR DECREASED Medications Medications Current Medications Metoclopramide HCl (Reglan) 10 mg Q6H PRN IV NAUSEA AND/OR VOMITING; Start 02/19 at 20:00 Acetaminophen (Tylenol Tab) 650 mg Q6H PRN PO PAIN LEVEL 1-3 OR FEVER; Start at 20:00 Morphine Sulfate (morphine) 2 mg Q4H PRN IV PAIN LEVEL 7-10; Start 02/19/17 at 20:00 Levothyroxine Sodium (Synthroid Iv) 50 mcg DAILY IV Last administered on t 08:51; Admin Dose 50 MCG; Start 02/20/17 at 09:00 Acetaminophen (Tylenol Supp) 650 mg Q6H PRN [place] PAIN AND OR ELEVATED TEMP; Start 02/19/17 at 20:00 Pantoprazole (Protonix Tab) 40 mg BID@06,18 PO Last administered on 02/24/17t 05:37; Admin Dose 40 MG; Start 02/22/17 at 09:00 ANA RATLIFF Feb 24, 2017 13:40
[2017-02-24 14:43] LABS: ADD SCAN DIFF NO
[2017-02-24 14:45] LABS: ABNORMAL IP MESSAGE 1; HEMATOCRIT 28.1 % (42.0-52.0); HEMOGLOBIN 9.6 g/dl (14.0-18.0); MEAN CORPUSCULAR HEMOGLOBIN 29.4 pg (29.0-33.0); MEAN CORPUSCULAR HGB CONC 34.2 g/dl (32.0-37.0); MEAN CORPUSCULAR VOLUME 86.2 fl (82.0-101.0); RED BLOOD COUNT 3.26 10^6/ul (4.70-6.10); RED CELL DISTRIBUTION WIDTH 14.8 % (11.5-14.5); WHITE BLOOD COUNT 8.3 10^3/ul (4.8-10.8)
[2017-02-24 14:59] LABS: PLATELET COUNT 11 10^3/UL (140-415)
[2017-02-24] MEDS ORDERED: VANCOMYCIN 1.25 GM in SOD CHLORIDE 0.9% 250 ML IVPB SCH (15:00)
[2017-02-24 15:55] LABS: EOSINOPHILS # 0.2 10^3/ul (0.0-0.5); LYMPHOCYTES # 1.4 10^3/ul (0.8-2.9); NEUTROPHIL # 3.5 10^3/ul (1.6-7.5); PLATELET ESTIMATE PLT APPEAR DECREASED
[2017-02-24 22:53] LABS: ADD SCAN DIFF NO
[2017-02-24 22:56] LABS: ABNORMAL IP MESSAGE 1; BASOPHILS % 0.1 % (0.0-2.0); EOSINOPHILS # 0.1 10^3/ul (0.0-0.5); EOSINOPHILS % 1.3 % (0.0-7.0); HEMATOCRIT 27.1 % (42.0-52.0); HEMOGLOBIN 9.1 g/dl (14.0-18.0); LYMPHOCYTES # 1.9 10^3/ul (0.8-2.9); LYMPHOCYTES % 17.1 % (15.0-51.0); MEAN CORPUSCULAR HEMOGLOBIN 29.4 pg (29.0-33.0); MEAN CORPUSCULAR HGB CONC 33.6 g/dl (32.0-37.0); MEAN CORPUSCULAR VOLUME 87.4 fl (82.0-101.0); MEAN PLATELET VOLUME 8.7 fl (7.4-10.4); MONOCYTE # 4.6 10^3/ul (0.3-0.9); MONOCYTES % 41.5 % (0.0-11.0); NEUTROPHIL # 4.2 10^3/ul (1.6-7.5); NEUTROPHILS % 37.3 % (39.0-77.0); RED CELL DISTRIBUTION WIDTH 14.9 % (11.5-14.5); WHITE BLOOD COUNT 11.2 10^3/ul (4.8-10.8)
[2017-02-24 22:59] LABS: PLATELET COUNT 8 10^3/UL (140-415)
[2017-02-25] VITALS (29 sets, daily range): BP systolic 82–152; BP diastolic 36–73; PULSE 75–109; RESP 16–28
[2017-02-25] MEDS ORDERED: IPRATROPIUM (NEB) 0.5 MG/2.5 ML AMP HHN PRN (03:00)
[2017-02-25] MEDS ORDERED: LEVALBUTEROL (NEB) 1.25 MG/0.5 ML AMP HHN PRN (03:00)
[2017-02-25] MEDS: GUAIFENESIN/CODEINE 5ML CUP PO PRN ×3 (03:39→20:02)
[2017-02-25] MEDS: PANTOPRAZOLE (EC) 40 MG TAB PO SCH ×2 (06:20→17:32)
[2017-02-25] MEDS: LEVOTHYROXINE 100 MCG VIAL IV SCH (08:51)
--- NOTE | 2017-02-25 09:17 | CONS ---
Date/Time of Note Date/Time of Note DATE: 02/25/17 TIME: 09:11 Assessment/Plan Assessment/Plan Additional Assessment/Plan Assessment recommendations; next 1. Patient admitted for hemoptysis due to recurrent severe thrombocytopenia due to CML. 2. Hypothyroidism. 3. Recent admission for severe pneumonia with respiratory failure with marked improvement. Continue current supportive care. Transfuse platelets as needed. Prognosis remains poor. Patient can be transferred to the medical floor. Consultation Date/Type/Reason Admit Date/Time Feb 20, 2017 at 12:38 Initial Consult Date 02/20/17 Type of Consultation: Pulm 24 HR Interval Summary Free Text/Dictation Patient condition is stable. Complains of very occasional hemoptysis. Denies any shortness of breath, chest pain. General exam; elderly male, awake alert currently in no distress. Exam/Review of Systems Vital Signs Vitals Vital Signs Date Time Temp Pulse Resp B/P Pulse Ox O2 Delivery O2 Flow Rate FiO2 02/25/17 07:00 97 20 120/63 90 02/25/17 06:00 Nasal Cannula 02/25/17 05:54 12.0 40 02/25/17 04:00 98.5 Intake and Output 02/24/17 02/24/17 02/25/17 14:59 22:59 06:59 Intake Total 950 ml 600 ml 728 ml Output Total 825 ml 800 ml 200 ml Balance 125 ml -200 ml 528 ml Exam HEENT exam is; supple neck, no JVD. No lymphadenopathy. Midline trachea. No thyromegaly. Pharynx is clear. Chest examination; diminished but clear breath sounds. S1-S2 audible, no murmurs. Regular rhythm. Abdomen examination; soft, nondistended. Nontender. No organomegaly. Bowel is audible. Extremity exam; no peripheral edema. TUNNEL FORM PLACING SUPERVISOR examination; no focal deficit. Results Result Diagram: 02/24/17 2211 02/23/17 0446 Results 24 hrs Laboratory Tests Test 02/24/17 09:30 02/24/17 14:15 02/24/17 22:11 White Blood Count 7.5 8.3 11.2 #H Red Blood Count 3.45 L 3.26 L 3.10 L Hemoglobin 9.9 L 9.6 L 9.1 L Hematocrit 30.2 L 28.1 L 27.1 L Mean Corpuscular Volume 87.5 86.2 87.4 Mean Corpuscular Hemoglobin 28.7 L 29.4 29.4 Mean Corpuscular Hemoglobin Concent 32.8 34.2 33.6 Red Cell Distribution Width 15.2 H 14.8 H 14.9 H Platelet Count 12 #*L 11 *L 8 #*L Mean Platelet Volume 11.6 #H 8.7 # Neutrophils % 46.0 42.0 37.3 L Band Neutrophils % 2.0 Lymphocytes % 16.0 17.0 17.1 Reactive Lymphocytes % 1.0 3.0 Monocytes % 32.0 H 36.0 H 41.5 H Eosinophils % 1.0 2.0 1.3 Basophils % 1.0 0.1 Neutrophils # 3.5 3.5 4.2 Lymphocytes # 1.2 1.4 1.9 Monocytes # 2.4 H 3.0 H 4.6 H Eosinophils # 0.1 0.2 0.1 Basophils # 0.1 0.0 Platelet Estimate PLT APPEAR DECREASED PLT APPEAR DECREASED Nucleated Red Blood Cells % 0.0 Nucleated Red Blood Cells # 0.0 Medications Medications Current Medications Metoclopramide HCl (Reglan) 10 mg Q6H PRN IV NAUSEA AND/OR VOMITING; Start 02/19 at 20:00 Acetaminophen (Tylenol Tab) 650 mg Q6H PRN PO PAIN LEVEL 1-3 OR FEVER; Start at 20:00 Morphine Sulfate (morphine) 2 mg Q4H PRN IV PAIN LEVEL 7-10; Start 02/19/17 at 20:00 Levothyroxine Sodium (Synthroid Iv) 50 mcg DAILY IV Last administered on 08:51; Admin Dose 50 MCG; Start 02/20/17 at 09:00 Acetaminophen (Tylenol Supp) 650 mg Q6H PRN [place] PAIN AND OR ELEVATED TEMP; Start 02/19/17 at 20:00 Pantoprazole (Protonix Tab) 40 mg BID@06,18 PO Last administered on 02/25/17 06:20; Admin Dose 40 MG; Start 02/22/17 at 09:00 Guaifenesin/ Codeine Phosphate (Robitussin Ac Liquid Cup) 10 ml Q4H PRN PO for coughn Last administered on 02/25/17 03:39; Admin Dose 10 ML; Start 4/11/17 at 03:00 MYESHA OLIVER Feb 25, 2017 09:17
[2017-02-25 10:13] LABS: ADD SCAN DIFF NO
--- NOTE | 2017-02-25 10:19 | PN ---
Date/Time of Note Date/Time of Note DATE: 02/25/17 TIME: 10:06 Assessment/Plan VTE Prophylaxis VTE Prophylaxis Intervention: SCD's Lines/Catheters IV C[facility]ter Type (from [facility] Peripheral IV Urinary Cath still in place: No (NA ) Assessment/Plan Assessment/Plan ASSESSMENT * Hemoptysis * Thrombocytopenia/Pancytopenia * Myelodysplastic syndrome * Endoluminal obstruction right main stem bronchus by CT chest 02/20/2017 * History of EGD 02/10/2017/NO EVIDENCE OF ACTIVE GI BLEEDING distal esophagitis severe hemorrhagic gastritis duodenitis Plan * continue ppi * continue present management * Will sign off and follow upon request Subjective 24 Hr Interval Summary Free Text/Dictation * course reviewed with RN * on and off hemoptysis minimal in amount * patient seen and examined * no hematemesis nor melena * latest hemoglobin 9.1 platelet 8 Exam/Review of Systems Vital Signs Vitals Vital Signs Date Time Temp Pulse Resp B/P Pulse Ox O2 Delivery O2 Flow Rate FiO2 02/25/17 07:00 97 20 120/63 90 02/25/17 06:00 Nasal Cannula 02/25/17 05:54 12.0 40 02/25/17 04:00 98.5 Intake and Output 02/24/17 02/24/17 02/25/17 15:00 23:00 07:00 Intake Total 1190 ml 360 ml 728 ml Output Total 825 ml 800 ml 200 ml Balance 365 ml -440 ml 528 ml Exam Constitutional: alert Neck: supple Respiratory: diminished breath sounds, other (face mask ) Cardiovascular: nl pulses, regular rate and rhythm Gastrointestinal: non-tender, soft, No rebound or guarding Musculoskeletal: nl extremities to inspection Results Result Diagram: 02/24/17 2211 02/23/17 0446 Results 24 hrs Laboratory Tests Test 02/24/17 14:15 02/24/17 22:11 White Blood Count 8.3 11.2 #H Red Blood Count 3.26 L 3.10 L Hemoglobin 9.6 L 9.1 L Hematocrit 28.1 L 27.1 L Mean Corpuscular Volume 86.2 87.4 Mean Corpuscular Hemoglobin 29.4 29.4 Mean Corpuscular Hemoglobin Concent 34.2 33.6 Red Cell Distribution Width 14.8 H 14.9 H Platelet Count 11 *L 8 #*L Mean Platelet Volume 8.7 # Neutrophils % 42.0 37.3 L Lymphocytes % 17.0 17.1 Reactive Lymphocytes % 3.0 Monocytes % 36.0 H 41.5 H Eosinophils % 2.0 1.3 Neutrophils # 3.5 4.2 Lymphocytes # 1.4 1.9 Monocytes # 3.0 H 4.6 H Eosinophils # 0.2 0.1 Platelet Estimate PLT APPEAR DECREASED Basophils % 0.1 Nucleated Red Blood Cells % 0.0 Basophils # 0.0 Nucleated Red Blood Cells # 0.0 Medications Medications Current Medications Metoclopramide HCl (Reglan) 10 mg Q6H PRN IV NAUSEA AND/OR VOMITING; Start 02/19 at 20:00 Acetaminophen (Tylenol Tab) 650 mg Q6H PRN PO PAIN LEVEL 1-3 OR FEVER; Start at 20:00 Morphine Sulfate (morphine) 2 mg Q4H PRN IV PAIN LEVEL 7-10; Start 02/19/17 at 20:00 Levothyroxine Sodium (Synthroid Iv) 50 mcg DAILY IV Last administered on 08:51; Admin Dose 50 MCG; Start 02/20/17 at 09:00 Acetaminophen (Tylenol Supp) 650 mg Q6H PRN [place] PAIN AND OR ELEVATED TEMP; Start 02/19/17 at 20:00 Pantoprazole (Protonix Tab) 40 mg BID@18 PO Last administered on 02/25/17 06:20; Admin Dose 40 MG; Start 02/22/17 at 09:00 Guaifenesin/ Codeine Phosphate (Robitussin Ac Liquid Cup) 10 ml Q4H PRN PO for coughn Last administered on 02/25/17 03:39; Admin Dose 10 ML; Start 02/25/17 at 03:00 DARRON CAMP MD Feb 25, 2017 10:18
[2017-02-25 10:21] LABS: ABNORMAL IP MESSAGE 1; HEMATOCRIT 19.6 % (42.0-52.0); MEAN CORPUSCULAR HEMOGLOBIN 28.4 pg (29.0-33.0); MEAN CORPUSCULAR HGB CONC 32.7 g/dl (32.0-37.0); MEAN CORPUSCULAR VOLUME 87.1 fl (82.0-101.0); MEAN PLATELET VOLUME 9.6 fl (7.4-10.4); RED BLOOD COUNT 2.25 10^6/ul (4.70-6.10); RED CELL DISTRIBUTION WIDTH 15.1 % (11.5-14.5); WHITE BLOOD COUNT 9.1 10^3/ul (4.8-10.8)
[2017-02-25 10:27] LABS: HEMOGLOBIN 6.4 g/dl (14.0-18.0); PLATELET COUNT 9 10^3/UL (140-415)
[2017-02-25 10:39] LABS: CALCIUM 8.1 mg/dl (8.4-10.2); CREATININE 1.38 mg/dl (0.61-1.24); POTASSIUM 3.4 mmol/L (3.5-5.1)
[2017-02-25 11:36] LABS: HEMATOCRIT 17.7 % (42.0-52.0)
[2017-02-25 11:48] LABS: HEMOGLOBIN 5.9 g/dl (14.0-18.0)
[2017-02-25] MEDS ORDERED: SOD CHLORIDE 0.9% 250 ML IV* ONE (11:49)
--- NOTE | 2017-02-25 12:01 | PN ---
Date/Time of Note Date/Time of Note DATE: 02/25/17 TIME: 11:57 Assessment/Plan VTE Prophylaxis VTE Prophylaxis Intervention: contraindicated, SCD's VTE Contraindication Reason: bleeding, thrombocytopenia Lines/Catheters IV [facility]ter Type (from [facility]): Peripheral IV Urinary Cath still in place: No (NA ) Assessment/Plan Chief Complaint/Hosp Course Assessment/Plan: 71 M with: 1. Bronchial narrowing : 2/2 mucus versus possible mass Needs bronchoscopy to assess properly, but risks may outweigh benefits / await pulm final recs or plan 2. Hemoptysis likely 2/2 chronic cough with severe thrombocytopenia due to CML - still occurring - will give 2 units prbc transfusion today (received one unit plt last night) 3. Severe chronic Thrombocytopenia 2/2 #4 - Patient is known to be refractory to platelet transfusions - monitor CBC, plt levels 4. Myelodysplastic syndrome with Anemia, microcytic and hypochromic - f/u Heme/Onc rec's 5. Acute resp distress likely 2/2 COPD exacerbation with chronic emphysema : improved 6. Multifocal pneumonia, bilateral, unchanged from 02/03/17 - off abx, wean O2 as tolerated. Prophylaxis: SCDs / protonix Plan for bioethic in next 24 hrs as well. Critical care evaluation time = 40 mins Problems: Subjective 24 Hr Interval Summary Free Text/Dictation Pt still with occasional hemoptysis. Had plt transfusion 1 unit last night. Family mtg held with palliative team earlier today as well. Exam/Review of Systems Vital Signs Vitals Vital Signs Date Time Temp Pulse Resp B/P Pulse Ox O2 Delivery O2 Flow Rate FiO2 02/25/17 11:00 90 21 104/49 94 Venturi Mask 02/25/17 08:00 98.2 02/25/17 05:54 12.0 40 Intake and Output 02/24/17 02/24/17 02/25/17 15:00 23:00 07:00 Intake Total 1190 ml 360 ml 728 ml Output Total 825 ml 800 ml 200 ml Balance 365 ml -440 ml 528 ml Exam GEN:lying in bed, sleeping HEENT exam; supple neck, no JVD. No lymphadenopathy. Midline trachea. Pharynx is clear. Patient is edentulous. Pupils are midsize and reactive to light. Chest exam; diminished but clear breath sounds bilaterally. S1-S2 audible, no murmurs. Regular rhythm. Abdomen examination; soft, nondistended, nontender. Bowel sounds audible. Extremity exam; no peripheral edema. No clubbing. +1+ bilaterally. 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 Skin: ecchymosis Results Result Diagram: 02/25/17 1121 02/25/17 1000 Results 24 hrs Laboratory Tests Test 02/24/17 14:15 02/24/17 22:11 02/25/17 10:00 02/25/17 11:21 White Blood Count 8.3 11.2 #H 9.1 Red Blood Count 3.26 L 3.10 L 2.25 #L Hemoglobin 9.6 L 9.1 L 6.4 #*L 5.9 *L Hematocrit 28.1 L 27.1 L 19.6 #L 17.7 L Mean Corpuscular Volume 86.2 87.4 87.1 Mean Corpuscular Hemoglobin 29.4 29.4 28.4 L Mean Corpuscular Hemoglobin Concent 34.2 33.6 32.7 Red Cell Distribution Width 14.8 H 14.9 H 15.1 H Platelet Count 11 *L 8 #*L 9 *L Mean Platelet Volume 8.7 # 9.6 Neutrophils % 42.0 37.3 L Lymphocytes % 17.0 17.1 Reactive Lymphocytes % 3.0 Monocytes % 36.0 H 41.5 H Eosinophils % 2.0 1.3 Neutrophils # 3.5 4.2 Lymphocytes # 1.4 1.9 Monocytes # 3.0 H 4.6 H Eosinophils # 0.2 0.1 Platelet Estimate PLT APPEAR DECREASED Basophils % 0.1 Nucleated Red Blood Cells % 0.0 Basophils # 0.0 Nucleated Red Blood Cells # 0.0 Sodium Level 137 Potassium Level 3.4 L Chloride Level 104 Carbon Dioxide Level 23 Anion Gap 13 Blood Urea Nitrogen 63 H Creatinine 1.38 H Glucose Level 168 Calcium Level 8.1 L Medications Medications Current Medications Metoclopramide HCl (Reglan) 10 mg Q6H PRN IV NAUSEA AND/OR VOMITING; Start 02/19 at 20:00 Acetaminophen (Tylenol Tab) 650 mg Q6H PRN PO PAIN LEVEL 1-3 OR FEVER; Start at 20:00 Morphine Sulfate (morphine) 2 mg Q4H PRN IV PAIN LEVEL 7-10; Start 02/19/17 at 20:00 Levothyroxine Sodium (Synthroid Iv) 50 mcg DAILY IV Last administered on 08:51; Admin Dose 50 MCG; Start 02/20/17 at 09:00 Acetaminophen (Tylenol Supp) 650 mg Q6H PRN IN PAIN AND OR ELEVATED TEMP; Start 02/19/17 at 20:00 Pantoprazole (Protonix Tab) 40 mg BID@06,18 PO Last administered on 02/25/17 06:20; Admin Dose 40 MG; Start 02/22/17 at 09:00 Guaifenesin/ Codeine Phosphate 10 ml 10 ml Q4H PRN PO for coughn Last administered on 02/25/17 10:26; Admin Dose 10 ML; Start 02/25/17 at 03:00 Sodium Chloride (NS) 250 ml @ 0 mls/hr Q0M ONCE IV* ; Start 02/25/17 at 11:49; Stop 02/25/17 at 11:50; Status ANA HUI Feb 25, 2017 12:01
--- NOTE | 2017-02-25 13:36 | PN ---
DATE: 02/25/2017 Family conference was done with patient's cousin and . The patient's son, who is the major deci mike maker has decided not to participate in the family conference, according to family members who are present. We reviewed his current medical diagnosis and complications he has had requiring multi ple hospitalizations in the recent past and the fact that these will continue to occur. Family memb ers stated that they did not want tell him his diagnosis, only that he was bleeding, that he would c ontinue to have bleeding but they refused to tell him his diagnosis in the past and during the cours e of speaking with him, they initially said that they did not want to tell him; however, after we es sentially pressed the point that he needs to be told since he may have some activities he wants to c omplete or something he wants to say to someone. Additionally, whether or not they thought he would want to make his own decisions on the level of care in the future, they agreed that he would. Joseph er, their impressions were that if he was told his diagnosis that he would give up on life, but they changed their mind with further questioning. However, because there is a complex family history he re, I have suggested for a bioethics consultation. They have agreed to it and this will be schedule d. Dictated By: JUSTIN DANIELS MD, LP/RADHA Conf#: [id number] DID#: [id number]
[2017-02-25 13:37] LABS: LYMPHOCYTES # 1.3 10^3/ul (0.8-2.9); MONOCYTE # 3.9 10^3/ul (0.3-0.9); MYELOCYTES # 0.5; NEUTROPHIL # 2.6 10^3/ul (1.6-7.5); PLATELET ESTIMATE PLT APPEAR DECREASED
--- NOTE | 2017-02-25 13:40 | PN ---
Date/Time of Note Date/Time of Note DATE: 02/25/17 TIME: 13:38 Assessment/Plan VTE Prophylaxis VTE Prophylaxis Intervention: other (thrombocytopenia) Lines/Catheters IV [facility]ter Type (from [facility]): Peripheral IV Urinary Cath still in place: No (NA ) Assessment/Plan Assessment/Plan RBC transfusions are being continued. Unfortunately there is nothing left to do for the MDS. Supportive care only is being given. Subjective 24 Hr Interval Summary Free Text/Dictation Pt is comfortable but had more hemoptysis. Exam/Review of Systems Vital Signs Vitals Vital Signs Date Time Temp Pulse Resp B/P Pulse Ox O2 Delivery O2 Flow Rate FiO2 02/25/17 12:00 81 02/25/17 11:00 21 104/49 94 Venturi Mask 02/25/17 08:00 98.2 02/25/17 05:54 12.0 40 Intake and Output 02/24/17 02/24/17 02/25/17 15:00 23:00 07:00 Intake Total 1190 ml 360 ml 728 ml Output Total 825 ml 800 ml 200 ml Balance 365 ml -440 ml 528 ml Exam Constitutional: alert Psych: no complaints Head: normocephalic Neck: supple Respiratory: clear to auscultation Cardiovascular: regular rate and rhythm Gastrointestinal: soft Results Result Diagram: 02/25/17 1121 02/25/17 1000 Results 24 hrs Laboratory Tests Test 02/24/17 14:15 02/24/17 22:11 02/25/17 10:00 02/25/17 11:21 White Blood Count 8.3 11.2 #H 9.1 Red Blood Count 3.26 L 3.10 L 2.25 #L Hemoglobin 9.6 L 9.1 L 6.4 #*L 5.9 *L Hematocrit 28.1 L 27.1 L 19.6 #L 17.7 L Mean Corpuscular Volume 86.2 87.4 87.1 Mean Corpuscular Hemoglobin 29.4 29.4 28.4 L Mean Corpuscular Hemoglobin Concent 34.2 33.6 32.7 Red Cell Distribution Width 14.8 H 14.9 H 15.1 H Platelet Count 11 *L 8 #*L 9 *L Mean Platelet Volume 8.7 # 9.6 Neutrophils % 42.0 37.3 L 29.0 L Lymphocytes % 17.0 17.1 14.0 L Reactive Lymphocytes % 3.0 Monocytes % 36.0 H 41.5 H 43.0 H Eosinophils % 2.0 1.3 Neutrophils # 3.5 4.2 2.6 Lymphocytes # 1.4 1.9 1.3 Monocytes # 3.0 H 4.6 H 3.9 H Eosinophils # 0.2 0.1 Platelet Estimate PLT APPEAR DECREASED PLT APPEAR DECREASED Basophils % 0.1 Nucleated Red Blood Cells % 0.0 Basophils # 0.0 Nucleated Red Blood Cells # 0.0 Band Neutrophils % 7.0 H Metamyelocytes % 2.0 H Myelocytes % 5.0 H Metamyelocytes # 0.2 Myelocytes # 0.5 Sodium Level 137 Potassium Level 3.4 L Chloride Level 104 Carbon Dioxide Level 23 Anion Gap 13 Blood Urea Nitrogen 63 H Creatinine 1.38 H Glucose Level 168 Calcium Level 8.1 L Medications Medications Current Medications Metoclopramide HCl (Reglan) 10 mg Q6H PRN IV NAUSEA AND/OR VOMITING; Start 02/19 at 20:00 Acetaminophen (Tylenol Tab) 650 mg Q6H PRN PO PAIN LEVEL 1-3 OR FEVER; Start at 20:00 Morphine Sulfate (morphine) 2 mg Q4H PRN IV PAIN LEVEL 7-10; Start 02/19/17 at 20:00 Levothyroxine Sodium (Synthroid Iv) 50 mcg DAILY IV Last administered on 08:51; Admin Dose 50 MCG; Start 02/20/17 at 09:00 Acetaminophen (Tylenol Supp) 650 mg Q6H PRN [place] PAIN AND OR ELEVATED TEMP; Start 02/19/17 at 20:00 Pantoprazole (Protonix Tab) 40 mg BID@06,18 PO Last administered on 02/25/17 06:20; Admin Dose 40 MG; Start 02/22/17 at 09:00 Guaifenesin/ Codeine Phosphate (Robitussin Ac Liquid Cup) 10 ml Q4H PRN PO for coughn Last administered on 02/25/17 10:26; Admin Dose 10 ML; Start 02/25/17 at 03:00 GONZALO MCDONALD MD Feb 25, 2017 13:40
[2017-02-25 21:05] LABS: ADD SCAN DIFF NO
[2017-02-25 21:06] LABS: ABNORMAL IP MESSAGE 1; HEMATOCRIT 21.3 % (42.0-52.0); HEMOGLOBIN 7.3 g/dl (14.0-18.0); MEAN CORPUSCULAR HEMOGLOBIN 29.7 pg (29.0-33.0); MEAN CORPUSCULAR HGB CONC 34.3 g/dl (32.0-37.0); MEAN CORPUSCULAR VOLUME 86.6 fl (82.0-101.0); MEAN PLATELET VOLUME 10.1 fl (7.4-10.4); RED BLOOD COUNT 2.46 10^6/ul (4.70-6.10); RED CELL DISTRIBUTION WIDTH 14.5 % (11.5-14.5); WHITE BLOOD COUNT 7.1 10^3/ul (4.8-10.8)
[2017-02-25 21:20] LABS: PLATELET COUNT 7 10^3/UL (140-415)
[2017-02-25 22:21] LABS: EOSINOPHILS # 0.1 10^3/ul (0.0-0.5); LYMPHOCYTES # 1.9 10^3/ul (0.8-2.9); MONOCYTE # 2.1 10^3/ul (0.3-0.9); MYELOCYTES # 0.2; NEUTROPHIL # 2.6 10^3/ul (1.6-7.5)
[2017-02-25 22:22] LABS: PLATELET ESTIMATE PLT APPEAR DECREASED
[2017-02-26] VITALS (45 sets, daily range): BP systolic 91–184; BP diastolic 40–85; PULSE 70–95; RESP 11–31
[2017-02-26 05:57] LABS: ADD SCAN DIFF NO
[2017-02-26 06:08] LABS: ABNORMAL IP MESSAGE 1; HEMATOCRIT 20.4 % (42.0-52.0); MEAN CORPUSCULAR HEMOGLOBIN 29.1 pg (29.0-33.0); MEAN CORPUSCULAR HGB CONC 33.8 g/dl (32.0-37.0); MEAN CORPUSCULAR VOLUME 86.1 fl (82.0-101.0); MEAN PLATELET VOLUME 11.5 fl (7.4-10.4); RED BLOOD COUNT 2.37 10^6/ul (4.70-6.10); WHITE BLOOD COUNT 5.6 10^3/ul (4.8-10.8)
[2017-02-26 06:20] LABS: POTASSIUM 3.2 mmol/L (3.5-5.1)
[2017-02-26 06:23] LABS: CREATININE 1.39 mg/dl (0.61-1.24)
[2017-02-26 06:24] LABS: CALCIUM 8.1 mg/dl (8.4-10.2); HEMOGLOBIN 6.9 g/dl (14.0-18.0); PLATELET COUNT 8 10^3/UL (140-415)
[2017-02-26] MEDS ORDERED: FUROSEMIDE 20 MG INJ IV ONE (06:30)
[2017-02-26] MEDS: PANTOPRAZOLE (EC) 40 MG TAB PO SCH ×2 (06:33→20:50)
[2017-02-26] MEDS: GUAIFENESIN/CODEINE 5ML CUP PO PRN (06:35)
[2017-02-26] MEDS: LEVOTHYROXINE 100 MCG VIAL IV SCH (09:21)
--- NOTE | 2017-02-26 09:25 | PN ---
Date/Time of Note Date/Time of Note DATE: 02/26/17 TIME: 09:20 Assessment/Plan VTE Prophylaxis VTE Prophylaxis Intervention: contraindicated VTE Contraindication Reason: bleeding, thrombocytopenia Lines/Catheters IV [facility]from [facility] Saline Lock Urinary Cath still in place: No Assessment/Plan Chief Complaint/Hosp Course Assessment/Plan: 71 M with: 1. Bronchial narrowing : 2/2 mucus versus possible mass Needs bronchoscopy to assess properly, but risks may outweigh benefits / await pulm final recs or plan 2. Hemoptysis - likely 2/2 chronic cough with severe thrombocytopenia due to CML- still occurring and has not responded to prior chemo tx previously. S/p 2 units prbc transfusion yesterday and one unit plt. - monitor for now 3. Severe chronic Thrombocytopenia 2/2 #4 - Patient is known to be refractory to platelet transfusions (+ alloantibodies) - monitor CBC, plt levels, f/u Heme/Onc rec's - per their rec's unfortunately there is nothing left to do for the MDS 4. CML/Myelodysplastic syndrome with anemia, microcytic and hypochromic - f/u Heme/Onc rec's 5. Acute resp distress likely 2/2 COPD exacerbation with chronic emphysema : improved 6. Multifocal pneumonia, bilateral, unchanged from 02/03/17 - off abx, wean O2 as tolerated. Prophylaxis: SCDs / protonix Plan for bioethics possibly today as well. Critical care evaluation time = 40 mins Problems: Subjective 24 Hr Interval Summary Free Text/Dictation Pt with some mild hemoptysis, more alert today. Awaiting possible bioethics later today. Received plt and pRBC transfusions yesterday. Exam/Review of Systems Vital Signs Vitals Vital Signs Date Time Temp Pulse Resp B/P Pulse Ox O2 Delivery O2 Flow Rate FiO2 02/26/17 08:00 83 02/26/17 06:00 18 107/44 96 Venturi Mask 02/26/17 04:17 12.0 40 02/26/17 00:00 98.2 Intake and Output 02/25/17 02/25/17 02/26/17 15:00 23:00 07:00 Intake Total 830 ml 740 ml 300 ml Output Total 500 ml 340 ml Balance 330 ml 740 ml -40 ml Exam GEN:lying in bed, sleeping HEENT exam; supple neck, no JVD. No lymphadenopathy. Midline trachea. Pharynx is clear. Patient is edentulous. Pupils are midsize and reactive to light. Chest exam; diminished but clear breath sounds bilaterally. S1-S2 audible, no murmurs. Regular rhythm. Abdomen examination; soft, nondistended, nontender. Bowel sounds audible. Extremity exam; no peripheral edema. No clubbing. +1+ bilaterally. TRAIN OPERATIONS MANAGER examination; cranial nerves are grossly intact there is no deficit. Skin: ecchymosis Results Result Diagram: 02/26/17 0540 02/26/17 0540 Results 24 hrs Laboratory Tests Test 02/25/17 10:00 02/25/17 11:21 02/25/17 21:00 02/26/17 05:40 White Blood Count 9.1 7.1 # 5.6 # Red Blood Count 2.25 #L 2.46 L 2.37 L Hemoglobin 6.4 #*L 5.9 *L 7.3 #L 6.9 *L Hematocrit 19.6 #L 17.7 L 21.3 #L 20.4 L Mean Corpuscular Volume 87.1 86.6 86.1 Mean Corpuscular Hemoglobin 28.4 L 29.7 29.1 Mean Corpuscular Hemoglobin Concent 32.7 34.3 33.8 Red Cell Distribution Width 15.1 H 14.5 15.0 H Platelet Count 9 *L 7 #*L 8 *L Mean Platelet Volume 9.6 10.1 11.5 H Neutrophils % 29.0 L 36.0 L Band Neutrophils % 7.0 H 2.0 Lymphocytes % 14.0 L 27.0 Monocytes % 43.0 H 29.0 H Metamyelocytes % 2.0 H 2.0 H Myelocytes % 5.0 H 3.0 H Neutrophils # 2.6 2.6 Lymphocytes # 1.3 1.9 Monocytes # 3.9 H 2.1 H Metamyelocytes # 0.2 0.1 Myelocytes # 0.5 0.2 Platelet Estimate PLT APPEAR DECREASED PLT APPEAR DECREASED Sodium Level 137 140 Potassium Level 3.4 L 3.2 L Chloride Level 104 104 Carbon Dioxide Level 23 25 Anion Gap 13 14 Blood Urea Nitrogen 63 H 57 H Creatinine 1.38 H 1.39 H Glucose Level 168 145 Calcium Level 8.1 L 8.1 L Eosinophils % 1.0 Eosinophils # 0.1 Medications Medications Current Medications Metoclopramide HCl (Reglan) 10 mg Q6H PRN IV NAUSEA AND/OR VOMITING; Start 02/19 at 20:00 Acetaminophen (Tylenol Tab) 650 mg Q6H PRN PO PAIN LEVEL 1-3 OR FEVER; Start at 20:00 Morphine Sulfate (morphine) 2 mg Q4H PRN IV PAIN LEVEL 7-10; Start 02/19/17 at 20:00 Levothyroxine Sodium (Synthroid Iv) 50 mcg DAILY IV Last administered on 08:51; Admin Dose 50 MCG; Start 02/20/17 at 09:00 Acetaminophen (Tylenol Supp) 650 mg Q6H PRN [place] PAIN AND OR ELEVATED TEMP; Start 02/19/17 at 20:00 Pantoprazole (Protonix Tab) 40 mg BID@06,18 PO Last administered on 02/26/17 06:33; Admin Dose 40 MG; Start 02/22/17 at 09:00 Guaifenesin/ Codeine Phosphate (Robitussin Ac Liquid Cup) 10 ml Q4H PRN PO for coughn Last administered on 02/26/17 06:35; Admin Dose 10 ML; Start 02/25/17 at 03:00 ANA RATLIFF Feb 26, 2017 09:25
[2017-02-26 09:33] LABS: BASOPHIL # 0.2 10^3/ul (0.0-0.1); EOSINOPHILS # 0.1 10^3/ul (0.0-0.5); LYMPHOCYTES # 2.2 10^3/ul (0.8-2.9); MONOCYTE # 1.1 10^3/ul (0.3-0.9); MYELOCYTES # 0.2; NEUTROPHIL # 1.7 10^3/ul (1.6-7.5)
[2017-02-26] MEDS ORDERED: NORepinephrine 8MG/250 ML (PMX 250 ML IV SCH (10:00)
--- NOTE | 2017-02-26 10:33 | PN ---
DATE: 02/26/2017 Today, the patient is scheduled for bioethics meeting. Issues are the patient has not been told his diagnosis by family members. Prognosis is extremely poor. Bioethics meeting at 1300 hours. I phuong guerrero to , he will attend. Dictated By: JUSTIN DANIELS MD, LP/RADHA Conf#: [id number] DID#: [id number]
--- NOTE | 2017-02-26 11:09 | CONS ---
Date/Time of Note Date/Time of Note DATE: 02/26/17 TIME: 11:07 Assessment/Plan Assessment/Plan Additional Assessment/Plan Assessment recommendations; next 1. Patient admitted for recurrent hemoptysis due to severe thrombocytopenia causing ill without hemorrhage. 2. Recent admission to [facility] for respiratory failure with severe bilateral pneumonia, patient is doing very well since then 3. CML. Transfuse packed RBCs and platelets. Overall prognosis remains extremely poor. Consultation Date/Type/Reason Admit Date/Time Feb 20, 2017 at 12:38 Initial Consult Date 02/20/17 Type of Consultation: Pulm 24 HR Interval Summary Free Text/Dictation Patient condition is stable. Complains of very scant hemoptysis. Denies any shortness of breath. General exam; elderly male, awake alert currently in no distress. Exam/Review of Systems Vital Signs Vitals Vital Signs Date Time Temp Pulse Resp B/P Pulse Ox O2 Delivery O2 Flow Rate FiO2 02/26/17 08:00 83 02/26/17 06:00 18 107/44 96 Venturi Mask 02/26/17 04:17 12.0 40 02/26/17 00:00 98.2 Intake and Output 02/25/17 02/25/17 02/26/17 15:00 23:00 07:00 Intake Total 830 ml 740 ml 300 ml Output Total 500 ml 340 ml Balance 330 ml 740 ml -40 ml Exam HEENT exam is; supple neck, no JVD. No lymphadenopathy. Midline trachea. No neck masses. Pharynx is clear. Chest exam is; clear to auscultation. S1-S2 audible, no murmurs. Regular rhythm. Abdomen examination; soft, nondistended. No organomegaly. Extremity exam is; no peripheral edema. PRESSURISED CONTAINER FILLER exam is; no focal deficit. Results Result Diagram: 02/26/17 0540 02/26/17 0540 Results 24 hrs Laboratory Tests Test 02/25/17 11:21 02/25/17 21:00 02/26/17 05:40 Hemoglobin 5.9 *L 7.3 #L 6.9 *L Hematocrit 17.7 L 21.3 #L 20.4 L White Blood Count 7.1 # 5.6 # Red Blood Count 2.46 L 2.37 L Mean Corpuscular Volume 86.6 86.1 Mean Corpuscular Hemoglobin 29.7 29.1 Mean Corpuscular Hemoglobin Concent 34.3 33.8 Red Cell Distribution Width 14.5 15.0 H Platelet Count 7 #*L 8 *L Mean Platelet Volume 10.1 11.5 H Neutrophils % 36.0 L 31.0 L Band Neutrophils % 2.0 Lymphocytes % 27.0 39.0 Monocytes % 29.0 H 20.0 H Eosinophils % 1.0 1.0 Metamyelocytes % 2.0 H 1.0 H Myelocytes % 3.0 H 4.0 H Neutrophils # 2.6 1.7 Lymphocytes # 1.9 2.2 Monocytes # 2.1 H 1.1 H Eosinophils # 0.1 0.1 Metamyelocytes # 0.1 0.1 Myelocytes # 0.2 0.2 Platelet Estimate PLT APPEAR DECREASED Basophils % 3.0 H Nucleated Red Blood Cells % 1.0 H Basophils # 0.2 H Sodium Level 140 Potassium Level 3.2 L Chloride Level 104 Carbon Dioxide Level 25 Anion Gap 14 Blood Urea Nitrogen 57 H Creatinine 1.39 H Glucose Level 145 Calcium Level 8.1 L Medications Medications Current Medications Metoclopramide HCl (Reglan) 10 mg Q6H PRN IV NAUSEA AND/OR VOMITING; Start 02/19 at 20:00 Acetaminophen (Tylenol Tab) 650 mg Q6H PRN PO PAIN LEVEL 1-3 OR FEVER; Start at 20:00 Morphine Sulfate (morphine) 2 mg Q4H PRN IV PAIN LEVEL 7-10; Start 02/19/17 at 20:00 Levothyroxine Sodium (Synthroid Iv) 50 mcg DAILY IV Last administered on 09:21; Admin Dose 50 MCG; Start 02/20/17 at 09:00 Acetaminophen (Tylenol Supp) 650 mg Q6H PRN [place] PAIN AND OR ELEVATED TEMP; Start 02/19/17 at 20:00 Pantoprazole (Protonix Tab) 40 mg BID@06,18 PO Last administered on 02/26/17 06:33; Admin Dose 40 MG; Start 02/22/17 at 09:00 Guaifenesin/ Codeine Phosphate (Robitussin Ac Liquid Cup) 10 ml Q4H PRN PO for coughn Last administered on 02/26/17 06:35; Admin Dose 10 ML; Start 4/11/17 at 03:00 MYESHA OLIVER Feb 26, 2017 11:09
--- NOTE | 2017-02-26 18:50 | CONS ---
DATE OF ADMISSION: 02/20/2017 DATE OF CONSULTATION: 02/26/2017 SUBJECTIVE: The patient is not having any specific complaints. He continues to have hemoptysis. N o other bleeding has been noted. The patient does not complain of chest pain or shortness of breath. OBJECTIVE: VITAL SIGNS: Temperature 97.5, pulse 76 per minute and regular, respirations 18, blood pressure 145 /73 and pulse oximetry is 93%. SKIN: Pale with scattered ecchymoses and purpura. HEENT: No mucosal lesions. No scleral icterus. NECK: Supple, no jugular venous distention or thyroid enlargement. CHEST: Decreased breath sounds in the right lung. No rubs heard. HEART: Regular sinus rhythm, no S3, S4 or murmurs. ABDOMEN: Soft, no masses or ascites, but spleen is palpable 4 to 6 cm below the left costal margin in the anterior axillary line. EXTREMITIES: No clubbing, edema or cyanosis. No palpable cords or Homans sign. White count 5600 with 20% monocytes and 31% neutrophils, hemoglobin 6.9, hematocrit 20.4 and platele t count is only 8,000. ASSESSMENT: 1. Myelodysplastic syndrome with anemia and thrombocytopenia. 2. Hemoptysis, possible right upper bronchial lesion. PLAN: An Ethics Committee meeting was held earlier with the patient's family. Dr. Eva plascencia and I have just had a conversation with the patient via the online driver's education instructor. I have e xplained again about the patient's disease process and that all possible treatments have been admini stered and they have not been of benefit. It appears that the patient and family are interested in pursuing further therapy. I have informed them that there is a study available at [facility], but it is not clear that this patient would qualify. It would certainly be necessary to determine the causes of the patient's hemoptysis and whether or n ot there was an actual malignant lesion in the right upper lobe bronchus which would be the etiology for hemoptysis. Dictated By: OPAL MOSES MD SR/NTS Conf#: [id number] DID#: [id number]
[2017-02-26] MEDS: COLLAGENASE 30 GM TUBE TOP SCH (20:50)
[2017-02-26] MEDS ORDERED: NA BICARBONATE 8.4% 50 ML SYG IV STA (21:12)
[2017-02-26 21:25] LABS: HEMATOCRIT 25.3 % (42.0-52.0); HEMOGLOBIN 8.8 g/dl (14.0-18.0)
[2017-02-27] VITALS (20 sets, daily range): BP systolic 128–174; BP diastolic 50–77; PULSE 70–90; RESP 14–26
[2017-02-27] MEDS: PANTOPRAZOLE (EC) 40 MG TAB PO SCH ×2 (05:23→17:56)
[2017-02-27 06:14] LABS: ADD SCAN DIFF NO
[2017-02-27 06:19] LABS: ABNORMAL IP MESSAGE 1; HEMATOCRIT 25.2 % (42.0-52.0); HEMOGLOBIN 8.8 g/dl (14.0-18.0); MEAN CORPUSCULAR HEMOGLOBIN 29.6 pg (29.0-33.0); MEAN CORPUSCULAR HGB CONC 34.9 g/dl (32.0-37.0); MEAN CORPUSCULAR VOLUME 84.8 fl (82.0-101.0); RED BLOOD COUNT 2.97 10^6/ul (4.70-6.10); RED CELL DISTRIBUTION WIDTH 14.5 % (11.5-14.5); WHITE BLOOD COUNT 8.3 10^3/ul (4.8-10.8)
[2017-02-27 06:25] LABS: PLATELET COUNT 7 10^3/UL (140-415)
[2017-02-27 06:32] LABS: CALCIUM 7.9 mg/dl (8.4-10.2); CREATININE 1.23 mg/dl (0.61-1.24); POTASSIUM 3.3 mmol/L (3.5-5.1)
[2017-02-27] MEDS: LEVOTHYROXINE 100 MCG VIAL IV SCH (08:01)
[2017-02-27] MEDS: COLLAGENASE 30 GM TUBE TOP SCH (08:02)
[2017-02-27] MEDS ORDERED: POTASSIUM CHLORIDE (SR) 20 MEQ TAB PO STA (08:56)
[2017-02-27] MEDS ORDERED: hydrALAzine 20 MG INJ IV PRN (09:00)
--- NOTE | 2017-02-27 09:07 | CONS ---
Date/Time of Note Date/Time of Note DATE: 02/27/17 TIME: 09:05 Assessment/Plan Assessment/Plan Additional Assessment/Plan Assessment recommendations; 1. Patient admitted for hemoptysis due to severe thrombocytopenia with ill without hemorrhage. 2. History of recent severe bilateral pneumonia with respiratory failure patient doing very well from that standpoint. 3. CML. 4. Refractory anemia and thrombocytopenia. Transfuse platelets. Patient prognosis appears extremely poor and he is at extremely high risk of spontaneous intracranial bleed. Consultation Date/Type/Reason Admit Date/Time Feb 20, 2017 at 12:38 Initial Consult Date 02/20/17 Type of Consultation: Pulm 24 HR Interval Summary Free Text/Dictation Patient condition is stable. Denies any hemoptysis. Denies any shortness of breath. General exam; elderly male, awake alert currently in no distress. Exam/Review of Systems Vital Signs Vitals Vital Signs Date Time Temp Pulse Resp B/P Pulse Ox O2 Delivery O2 Flow Rate FiO2 02/27/17 08:00 88 02/27/17 07:31 Nasal Cannula 5.0 02/27/17 07:00 17 155/60 97 02/27/17 05:00 98.2 02/27/17 04:17 40 Intake and Output 02/26/17 02/26/17 02/27/17 15:00 23:00 07:00 Intake Total 1142 ml 550 ml 100 ml Output Total 400 ml 1400 ml 600 ml Balance 742 ml -850 ml -500 ml Exam HEENT exam is; supple neck, no JVD. No lymphadenopathy. Midline trachea. No thyromegaly. Chest examination; diminished breath sound bilaterally without any added sounds. S1-S2 audible, no murmurs. Regular rhythm. Abdomen examination; soft, nondistended. No organomegaly. Bowel sounds audible. Extremity exam is; no peripheral edema. LOGISTICS CENTER MANAGER examination; no focal deficit. Results Result Diagram: 02/27/17 0537 02/27/1737 Results 24 hrs Laboratory Tests Test 02/26/17 21:20 02/27/17 05:37 Hemoglobin 8.8 #L 8.8 L Hematocrit 25.3 #L 25.2 L White Blood Count 8.3 # Red Blood Count 2.97 #L Mean Corpuscular Volume 84.8 Mean Corpuscular Hemoglobin 29.6 Mean Corpuscular Hemoglobin Concent 34.9 Red Cell Distribution Width 14.5 Platelet Count 7 *L Mean Platelet Volume Sodium Level 139 Potassium Level 3.3 L Chloride Level 104 Carbon Dioxide Level 28 Anion Gap 10 Blood Urea Nitrogen 43 #H Creatinine 1.23 Glucose Level 105 # Calcium Level 7.9 L Medications Medications Current Medications Metoclopramide HCl (Reglan) 10 mg Q6H PRN IV NAUSEA AND/OR VOMITING; Start 02/19 at 20:00 Acetaminophen (Tylenol Tab) 650 mg Q6H PRN PO PAIN LEVEL 1-3 OR FEVER; Start at 20:00 Morphine Sulfate (morphine) 2 mg Q4H PRN IV PAIN LEVEL 7-10; Start 02/19/17 at 20:00 Levothyroxine Sodium (Synthroid Iv) 50 mcg DAILY IV Last administered on 08:01; Admin Dose 50 MCG; Start 02/20/17 at 09:00 Acetaminophen (Tylenol Supp) 650 mg Q6H PRN [place] PAIN AND OR ELEVATED TEMP; Start 02/19/17 at 20:00 Pantoprazole (Protonix Tab) 40 mg BID@06,18 PO Last administered on 02/27/17 05:23; Admin Dose 40 MG; Start 02/22/17 at 09:00 Guaifenesin/ Codeine Phosphate (Robitussin Ac Liquid Cup) 10 ml Q4H PRN PO for coughn Last administered on 02/26/17 06:35; Admin Dose 10 ML; Start 02/25/17 at 03:00 Collagenase (Santyl) 1 applic DAILY TOP Last administered on 02/26/17 20:50; Admin Dose 1 APPLIC; Start 02/26/17 at 21:00 Hydralazine HCl (Apresoline) 10 mg Q6H PRN IV ELEVATED BLOOD PRESSURE; Start at 09:00 MYESHA OLIVER Feb 27, 2017 09:07
--- NOTE | 2017-02-27 11:52 | PN ---
Date/Time of Note Date/Time of Note DATE: 02/27/17 TIME: 11:41 Assessment/Plan VTE Prophylaxis VTE Prophylaxis Intervention: contraindicated VTE Contraindication Reason: bleeding, thrombocytopenia Lines/Catheters [facility] Saline Lock Urinary Cath still in place: No Assessment/Plan Chief Complaint/Hosp Course Assessment/Plan: 71 M with: 1. Bronchial narrowing : 2/2 mucus versus possible mass Needs bronchoscopy to assess properly, but risks may outweigh benefits / await pulm final recs or plan 2. Hemoptysis - likely 2/2 chronic cough with severe thrombocytopenia due to CML- still occurring and has not responded to prior chemo tx previously. S/p 2 units prbc transfusion yesterday and one unit plt. - monitor for now 3. Severe chronic Thrombocytopenia 2/2 #4 - Patient is known to be refractory to platelet transfusions (+ alloantibodies) - monitor CBC, plt levels, f/u Heme/Onc rec's - per their rec's unfortunately there is nothing left to do for the MDS 4. CML/Myelodysplastic syndrome with anemia, microcytic and hypochromic. After Bioethics meeting held yesterday, later in the afternoon it was explained by myself and Heme Onc team to pthe pt directly about his disease process and that all possible treatments have been administered and they have not been of benefit. - f/u Heme/Onc rec's - looking in to possible transfer to [facility] as there is a study available at [facility], but it is not clear that this patient would qualify. 5. Acute resp distress likely 2/2 COPD exacerbation with chronic emphysema : improved 6. Multifocal pneumonia, bilateral, unchanged from 02/03/17 - off abx, wean O2 as tolerated. Prophylaxis: SCDs / protonix Critical care evaluation time = 40 mins Problems: Subjective 24 Hr Interval Summary Free Text/Dictation No present bleeding issues, received transfusions yesterday. Bioethics held yesterday, and later yesterday pt informed of his dx. Exam/Review of Systems Vital Signs Vitals Vital Signs Date Time Temp Pulse Resp B/P Pulse Ox O2 Delivery O2 Flow Rate FiO2 02/27/17 11:00 86 21 128/51 100 Nasal Cannula 5.0 02/27/17 08:00 98.8 02/27/17 04:17 40 Intake and Output 02/26/17 02/26/1717 15:00 23:00 07:00 Intake Total 1142 ml 550 ml 100 ml Output Total 400 ml 1400 ml 600 ml Balance 742 ml -850 ml -500 ml Exam GEN:lying in bed, talking on phone HEENT exam; supple neck, no JVD. No lymphadenopathy. Midline trachea. Pupils are midsize and reactive to light. Chest exam; slightly diminished but clear breath sounds bilaterally. S1-S2 audible, no murmurs. Regular rhythm. Abdomen examination; soft, nondistended, nontender. Bowel sounds audible. Extremity exam; no peripheral edema. No clubbing. SITE SUPERVISOR examination; cranial nerves are grossly intact there is no deficit. Skin: ecchymosis Results Result Diagram: 02/27/17 0537 02/27/17 0537 Results 24 hrs Laboratory Tests Test 02/26/17 21:20 02/27/17 05:37 Hemoglobin 8.8 #L 8.8 L Hematocrit 25.3 #L 25.2 L White Blood Count 8.3 # Red Blood Count 2.97 #L Mean Corpuscular Volume 84.8 Mean Corpuscular Hemoglobin 29.6 Mean Corpuscular Hemoglobin Concent 34.9 Red Cell Distribution Width 14.5 Platelet Count 7 *L Mean Platelet Volume Sodium Level 139 Potassium Level 3.3 L Chloride Level 104 Carbon Dioxide Level 28 Anion Gap 10 Blood Urea Nitrogen 43 #H Creatinine 1.23 Glucose Level 105 # Calcium Level 7.9 L Medications Medications Current Medications Metoclopramide HCl (Reglan) 10 mg Q6H PRN IV NAUSEA AND/OR VOMITING; Start 02/19 at 20:00 Acetaminophen (Tylenol Tab) 650 mg Q6H PRN PO PAIN LEVEL 1-3 OR FEVER; Start at 20:00 Morphine Sulfate (morphine) 2 mg Q4H PRN IV PAIN LEVEL 7-10; Start 02/19/17 at 20:00 Levothyroxine Sodium (Synthroid Iv) 50 mcg DAILY IV Last administered on 08:01; Admin Dose 50 MCG; Start 02/20/17 at 09:00 Acetaminophen (Tylenol Supp) 650 mg Q6H PRN [place] PAIN AND OR ELEVATED TEMP; Start 02/19/17 at 20:00 Pantoprazole (Protonix Tab) 40 mg BID@18 PO Last administered on 02/27/17 05:23; Admin Dose 40 MG; Start 02/22/17 at 09:00 Guaifenesin/ Codeine Phosphate (Robitussin Ac Liquid Cup) 10 ml Q4H PRN PO for coughn Last administered on 02/26/17 06:35; Admin Dose 10 ML; Start 02/25/17 at 03:00 Collagenase (Santyl) 1 applic DAILY TOP Last administered on 02/26/17 20:50; Admin Dose 1 APPLIC; Start 02/26/17 at 21:00 Hydralazine HCl (Apresoline) 10 mg Q6H PRN IV ELEVATED BLOOD PRESSURE Last administered on 02/27/17 09:05; Admin Dose 10 MG; Start 02/27/17 at 09:00 ANA RATLIFF Feb 27, 2017 11:52
[2017-02-27 13:44] LABS: LYMPHOCYTES # 2.6 10^3/ul (0.8-2.9); MONOCYTE # 4.2 10^3/ul (0.3-0.9); MYELOCYTES # 0.2; PLATELET ESTIMATE PLT APPEAR DECREASED
--- NOTE | 2017-02-27 20:29 | PN ---
DATE: 02/27/2017 HEMATOLOGY/ONCOLOGY PROGRESS NOTE SUBJECTIVE: The patient states he is feeling well. He states he has had some minor blood-tinged sp utum. No bright red blood or active hemoptysis. He denies shortness of breath or chest pain. OBJECTIVE: VITAL SIGNS: Temperature 97.8, pulse 81, respirations 18, blood pressure 130/60, pulse oximetry 93% via nasal cannula. GENERAL: Patient is a well-developed thin male, in no acute distress. SKIN: Pale, scattered ecchymosis. HEENT: No mucosal lesions. No scleral icterus. NECK: Supple, no jugular venous distention or thyroid enlargement. CHEST: Clear to auscultation and percussion. No rhonchi, wheezes, rales, or rubs. NODES: No palpable lymphadenopathy. ABDOMEN: Soft, no masses, no ascites. The spleen is palpable approximately 4 cm below the left cos sahil margin in the anterior axillary line. EXTREMITIES: No clubbing, edema, or cyanosis. No palpable cords or Homans sign. NEUROLOGIC: Normal. LABORATORY DATA: White count 8300, hemoglobin 8.8, hematocrit 25.2, platelet count 7000. We will likely transfuse the patient tomorrow with platelets and red blood cells. If stable, I feel that he can be discharged, and plans will be made for outpatient followup. Dictated By: OPAL MOSES MD, SR/NTS Conf#: [id number] DID#: [id number]
[2017-02-28 00:06] VITALS: BP 100/57; RESP 20
[2017-02-28] MEDS: PANTOPRAZOLE (EC) 40 MG TAB PO SCH ×2 (06:00→18:20)
[2017-02-28 07:44] LABS: ADD SCAN DIFF NO
[2017-02-28 07:52] LABS: ABNORMAL IP MESSAGE 1; HEMATOCRIT 25.7 % (42.0-52.0); HEMOGLOBIN 8.7 g/dl (14.0-18.0); MEAN CORPUSCULAR HEMOGLOBIN 29.3 pg (29.0-33.0); MEAN CORPUSCULAR HGB CONC 33.9 g/dl (32.0-37.0); MEAN CORPUSCULAR VOLUME 86.5 fl (82.0-101.0); MEAN PLATELET VOLUME 9.2 fl (7.4-10.4); RED BLOOD COUNT 2.97 10^6/ul (4.70-6.10); RED CELL DISTRIBUTION WIDTH 14.6 % (11.5-14.5); WHITE BLOOD COUNT 7.7 10^3/ul (4.8-10.8)
[2017-02-28 07:53] LABS: POTASSIUM 3.3 mmol/L (3.5-5.1)
[2017-02-28 07:55] VITALS: BP 107/58; RESP 16
[2017-02-28 07:55] LABS: CREATININE 1.33 mg/dl (0.61-1.24)
[2017-02-28 07:56] LABS: CALCIUM 8.3 mg/dl (8.4-10.2)
[2017-02-28 08:36] LABS: PLATELET COUNT 7 10^3/UL (140-415)
[2017-02-28] MEDS: LEVOTHYROXINE 100 MCG VIAL IV SCH (09:00)
--- NOTE | 2017-02-28 10:18 | PN ---
DATE: 02/28/2017 HEMATOLOGY ONCOLOGY PROGRESS NOTE SUBJECTIVE: The patient states he is feeling well. He is not short of breath, has no cough. Denie s any hemoptysis. No chest pain. OBJECTIVE: VITAL SIGNS: Temperature 98.4, pulse 82 per minute and regular, respirations 16, blood pressure 107 /58, and pulse oximetry 100%. SKIN: Pale with scattered ecchymoses and purpura. HEENT: No mucosal lesions. No scleral icterus. Tongue is well papillated. No gingival hyperplasi a. NECK: Supple, no jugular venous distention or thyroid enlargement. CHEST: Clear to auscultation and percussion. No rhonchi, wheezes, rales, or rubs. NODES: No palpable lymphadenopathy in any lymph node bearing area. HEART: Regular sinus rhythm, no S3, S4, or murmurs. No rubs. ABDOMEN: Soft, no masses or ascites. The spleen is palpable 4 to 6 cm below the left costal margin in the anterior axillary line. EXTREMITIES: No clubbing, edema, or cyanosis. No palpable cords or Homans sign. NEUROLOGIC: Normal. LABORATORY DATA: White count today is 7700, hemoglobin 8.7, hematocrit 25.7, platelet count 7000. ASSESSMENT: 1. Myelodysplastic syndrome. 2. Hemoptysis, probably due to thrombocytopenia but also possible right upper lobe endobronchial le mike. PLAN: The patient has been hematologically stable now for 2 days. We will transfuse with 2 units o f packed red blood cells and 2 units of platelets. I feel the patient could then be discharged and followed up as an outpatient next week in my office. Dictated By: OPAL MOSES MD, SR/NTS Conf#: [id number] DID#: [id number]
[2017-02-28 10:30] LABS: LYMPHOCYTES # 1.9 10^3/ul (0.8-2.9); NEUTROPHIL # 2.2 10^3/ul (1.6-7.5)
[2017-02-28 10:31] LABS: EOSINOPHILS # 0.1 10^3/ul (0.0-0.5); MONOCYTE # 3.2 10^3/ul (0.3-0.9); PLATELET ESTIMATE PLT APPEAR DECREASED
--- NOTE | 2017-02-28 10:45 | PDOCDIS ---
Discharge Instructions CONDITION Patient Condition: Stable HOME CARE INSTRUCTIONS: Special Diet: low fat low cholesterol diet ACTIVITY: Activity Restrictions: Slowly Increase Activity FOLLOW UP/APPOINTMENTS Appointments Please monitor for any further bleeding episodes. Please see the pr internship in the clinic in 3-5 days. Please take your medications as prescribed. ANA RATLIFF Feb 28, 2017 10:45
--- NOTE | 2017-02-28 11:44 | DS ---
DATE OF ADMISSION: 02/20/2017 DATE OF DISCHARGE: 02/28/2017 HOSPITAL COURSE: This is a 71-year-old male originally admitted on 02/19/2015 and being discharged home on 02/28/2017. The patient came back with vomiting blood. He had hemoptysis. He has been roberta ated as an outpatient for myelodysplastic syndrome, CML, although he has been refractory to treatmen t. He also came in with thrombocytopenia, which the patient has had in the past. In any event, he was admitted. 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 In any event, he was admitted and given blood products. His hemoptysis wa s monitored very carefully. He was seen during this hospital stay by palliative care team and BRYNN hanna am, as well as hematology/oncology team and pulmonary team. The patient did require ICU admission g iven his low blood levels as mentioned above and as well because of his hemoptysis. Eventually, the last 48 hours of the patient's admission, his hemoptysis symptoms improved and stabilized. He also received IV iron supplementation as well. Regarding his CML, myelodysplastic syndrome, there was a social issue regarding the need for bioethi cs consult and this was because the patient was unaware of his MDS diagnosis for the last few months . It was felt after discussions with palliative care team and with family, that the patient had a r ight to know his diagnosis. Before that, the family was coordinating information to the patient as far as why the patient was having hemoptysis and why he was having low blood levels. In any event, after a bioethics meeting was held, myself, the hospitalist and hematology/oncology team went in wit h a apartment locator and explained to the patient his diagnosis, as the patient did consent to wanting to know now. We also provided him with the medical treatment plan at this point as well as unfortunate ly the refractoriness of his treatment at this point. It was mentioned to the patient a possible tr ansfer to [facility] either as an inpatient or outpatient for further possible treatment if the patient nurys lifies for a new study looking into treatments for CML at this point. Although this is clinical tri al at this point. The patient and family appeared to be interested in that option. In any event, i t was felt that since the patient's hemoptysis symptoms improved and he was getting blood transfusio ns, his levels did remain low as far as his platelets in the 10 to 7 range, but again he had no blee ding for the last 48 hours. The hemoglobin did remain stable, however. Of note, the patient also was evaluated by the GI team and patient had had an EGD on a prior admissi on on 02/10/2015. At that time, he was diagnosed with distal esophagitis, severe hemorrhagic gastri tis and duodenitis, but they recommended continuing the present management as well as PPI treatment as mentioned above. The patient was also found with a possible right upper lobe endobronchial lesio n that because of the patient's thrombocytopenia, could not be evaluated by bronchoscopy at this christianne e given the high-risk of bleeding, so no biopsy was obtained from this. This will have to be closel y monitored as an outpatient as well. This could be contributing to the patient's hemoptysis, altho ugh again his platelet levels are so low that this could be the primary source as well or it could b e a combination of the two. In any event, the patient will need follow up for that. He was able to ambulate and tolerate a p.o. diet. He had some low electrolytes that were repleted a s well, some mild renal insufficiency that was resolving. After gets his final blood transfusion to day and if he does not have any further hemoptysis episodes, the [facility] He will need close followup with the hematology team in the clinic in the next 3 to 5 days, and they will explore the option of possibly having the patient sent over to [facility] for this possible [facility] trial for further treatment of MDS, since he has been refractory to current treatment. If the patient qualifies, that may be an option as well. He will be discharged today in improved condition . DISCHARGE MEDICATIONS: He will be sent with the following medications: 1. Lasix 20 mg daily. 2. Levothyroxine 50 mcg daily. 3. Metoprolol 25 mg b.i.d. 4. Protonix 40 mg b.i.d. 5. Klor-Con 8 mEq daily. 6. Carafate 1 gram q.i.d. FOLLOWUP: Again, close followup with primary care doctor and hematology/oncology doctor in the next 3 to 5 days in the clinic. FINAL DIAGNOSES: 1. Hemoptysis secondary to thrombocytopenia from CML, myelodysplastic syndrome. Possibly also seco ndary to endobronchial mass in the right upper lobe. 2. 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 3. Bronchial narrowing secondary to mucus versus probable mass as mentioned above. May need bronch oscopy as an outpatient when his blood levels stabilize if they do. 4. Respiratory distress secondary to chronic obstructive pulmonary disease exacerbation and chronic emphysema, improved. 5. Multifocal pneumonia, improved with antibiotic treatment. 6. History of distal esophagitis, severe hemorrhagic gastritis and duodenitis diagnosed on a prior admission in 01/2017, now on proton pump inhibitor treatment. 7. 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 8. Acute kidney injury, resolving. 9. Prior history of epistaxis. 10. History of pulmonary hypertension. 11. Cardiomyopathy with ejection fraction noted at 45% to 50%. The patient was given strict return precautions in the event he develops any further hemoptysis. Ag ain, the patient is a FULL CODE at this time. Family wants everything done, so he will have close f ollowup as an outpatient. Time spent discharging the patient 55 minutes. Dictated By: ANA LUDWIG Conf#: [id number] DID#: [id number]
[2017-02-28 12:00] VITALS: BP 114/65; PULSE 74; RESP 18
[2017-02-28] MEDS: COLLAGENASE 30 GM TUBE TOP SCH (12:13)
--- NOTE | 2017-02-28 12:31 | PN ---
DATE: 02/28/2017 PALLIATIVE CARE PROGRESS NOTE This is a followup note on Mr. Townsend who is still in the intensive care unit at [facility]. Bioethics consult was done yesterday. I could not attend that, but according to medic al records, recommendations were to tell the patient which was done so the patient was informed of h is diagnosis. The family was aware of the fact that we were going to go to bioethics consultation a nd that the recommendations would be given by bioethics. I was reasonably certain that would recomm endations. There have been participants, there just has been patient's mother who is in agreement w ith the patient making his own decisions. Background information and social history have been addre ssed also. He understands his diagnosis and severity of his medical problem which will be discussed by his primary oncologist, Dr. Pryor, and will be addressed with the patient's acceptable quality of life which will be discussed by his oncologist, also fears, strengths, cultural preferences. Cu ltural preferences have been addressed with family members who felt that he should not be told his d iagnosis. This is a psychosocial issue that was addressed with them also, but they did change their mind to follow through and to tell him his medical problems so he can make his own decisions on lev el of care. Please refer to my prior note as far as past experience, caregiver concerns. Impressio ns are as noted in my prior note and as been referred to by Dr. Pryor. The patient is to follow u p. The primary care physician goals of care will be discussed with oncology. Estimated prognosis, oncology's recommendation ____ less than 30%. Code status at this point is the patient is a full co de, and I will address that with him prior to discharge. The patient does not have a pain syndrome. Once again psychosocial issues have been addressed. Ethical issues have been addressed also as th e patient is now a decision maker on his own level of care in the future. Post form will be discuss ed with the patient prior to discharge also. Dictated By: JUSTIN DANIELS MD LP/NTS Conf#: [id number] DID#: [id number]
[2017-02-28 14:00] VITALS: BP 122/63; PULSE 81; RESP 17
[2017-02-28 19:34] VITALS: BP 130/61; RESP 20
[2017-03-01] MEDS: PANTOPRAZOLE (EC) 40 MG TAB PO SCH (05:37)
[2017-03-01 07:36] VITALS: BP 131/63; RESP 20
[2017-03-01 07:38] LABS: ADD SCAN DIFF NO
[2017-03-01 07:44] LABS: ABNORMAL IP MESSAGE 1; EOSINOPHILS % 0.2 % (0.0-7.0); HEMATOCRIT 27.2 % (42.0-52.0); HEMOGLOBIN 9.5 g/dl (14.0-18.0); LYMPHOCYTES % 22.9 % (15.0-51.0); MEAN CORPUSCULAR HGB CONC 34.9 g/dl (32.0-37.0); MEAN CORPUSCULAR VOLUME 85.8 fl (82.0-101.0); MEAN PLATELET VOLUME 10.6 fl (7.4-10.4); MONOCYTE # 3.6 10^3/ul (0.3-0.9); MONOCYTES % 41.8 % (0.0-11.0); NEUTROPHIL # 2.8 10^3/ul (1.6-7.5); RED BLOOD COUNT 3.17 10^6/ul (4.70-6.10); RED CELL DISTRIBUTION WIDTH 14.5 % (11.5-14.5); WHITE BLOOD COUNT 8.6 10^3/ul (4.8-10.8)
[2017-03-01 07:48] LABS: PLATELET COUNT 12 10^3/UL (140-415)
[2017-03-01] MEDS: LEVOTHYROXINE 100 MCG VIAL IV SCH (08:07)
[2017-03-01 08:28] LABS: CREATININE 1.36 mg/dl (0.61-1.24)
[2017-03-01 08:29] LABS: CALCIUM 8.2 mg/dl (8.4-10.2)
[2017-03-01 08:36] LABS: POTASSIUM 2.9 mmol/L (3.5-5.1)
[2017-03-01] MEDS ORDERED: POTASSIUM CHLORIDE (SR) 20 MEQ TAB PO STA ×2 (08:52→08:54)
[2017-03-01] MEDS: COLLAGENASE 30 GM TUBE TOP SCH (09:23)
[2017-03-01] MEDS: GUAIFENESIN/CODEINE 5ML CUP PO PRN (09:23)
--- NOTE | 2017-03-01 11:57 | DS ---
Date/Time of Note Date/Time of Note DATE: 03/01/17 TIME: 11:56 Discharge Summary Admission/Discharge Info Admit Date/Time Feb 20, 2017 at 12:38 Discharge Date/Time Final Diagnosis 1. Hemoptysis secondary to thrombocytopenia from CML, myelodysplastic syndrome. Possibly also secondary to endobronchial mass in the right upper lobe. 2. 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 3. Bronchial narrowing secondary to mucus versus probable mass as mentioned above. May need bronchoscopy as an outpatient when his blood levels stabilize if they do. 4. Respiratory distress secondary to chronic obstructive pulmonary disease exacerbation and chronic emphysema, improved. 5. Multifocal pneumonia, improved with antibiotic treatment. 6. History of distal esophagitis, severe hemorrhagic gastritis and duodenitis diagnosed on a prior admission in 01/2017, now on proton pump inhibitor treatment. 7. Anemia, microcytic, hyperchromic secondary to patient's CML, MDS, status post multiple blood transfusions with stable hemoglobin presently. 8. Acute kidney injury, resolving. 9. Prior history of epistaxis. 10. History of pulmonary hypertension. 11. Cardiomyopathy with ejection fraction noted at 45% to 50%. The patient was given strict return precautions in the event he develops any further hemoptysis. Again, the patient is a FULL CODE at this time. Family wants everything done, so he will have close followup as an outpatient. Time spent discharging the patient 55 minutes. Hx of Present Illness History is per ER Physician due to language barrier and patient's critical condition: This 71-year-old male presents to the emergency room for evaluation of vomiting up red blood that started tis morning. He states that this started this morning. This patient does have a history of mild dysplastic syndrome, esophagitis, previous anemia and GI bleed. When I evaluated this patient he denied any pain, but this that he was short of breath and states that when he coughs he is coughing up blood. The patient denies any fevers or chills associated with this. (Review of the records shows that he was admitted on 01/31/17 for epistaxis and thrombocytopenia with PLT = 4) ER COURSE per ER Physician: This 71-year-old male presents to the emergency room for evaluation of hemoptysis, possible hematemesis. This patient does have a history of CML, myelodysplastic syndrome and previous anemia. The patient also has a history of esophagitis. When I evaluated this patient he was tachypneic and tachycardic. He did have coarse breath sounds bilaterally. He did vomit bright red blood after coughing. I did obtain blood work on this patient, started him on IV fluids and did give him a breathing treatment. The patient was placed on a nonrebreather and states she is feeling better. Given the history of cancer I did obtain a CT angiography of the chest to rule out a pulmonary embolism. CTA does not show pulmonary embolism however this patient does have extensive multifocal pneumonia. Blood and urine cultures were obtained. The patient was started on vancomycin and cefepime. His lab work does show he has thrombocytopenia and platelets of 10,000. The patient also has a hemoglobin less than 9. Given this patient's active vomiting of blood and thrombocytopenia the patient was transfused 2 units of packed red blood cells, I did order 2 units of platelets as well. His blood pressure is 92 systolic. Given his mild hypotension, and active vomiting of blood this patient will be placed in the intensive care unit at this time for serial hemoglobins. Hospital Course DATE OF ADMISSION: 02/20/2017 DATE OF DISCHARGE: 03/01/2017 HOSPITAL COURSE: This is a 71-year-old male originally admitted on 02/19/2015 and being discharged home on 02/28/2017. The patient came back with vomiting blood. He had hemoptysis. He has been treated as an outpatient for myelodysplastic syndrome, CML, although he has been refractory to treatment. He also came in with thrombocytopenia, which the patient has had in the past. In any event, he was admitted. He was given multiple blood transfusions including PRBCs and platelets during this hospital stay, although the patient does appear to have alloantibodies specifically to the platelets given his CML diagnosis. In any event, he was admitted and given blood products. His hemoptysis was monitored very carefully. He was seen during this hospital stay by palliative care team and GI team, as well as hematology/oncology team and pulmonary team. The patient did require ICU admission given his low blood levels as mentioned above and as well because of his hemoptysis. Eventually, the last 48 hours of the patient's admission, his hemoptysis symptoms improved and stabilized. He also received IV iron supplementation as well. Regarding his CML, myelodysplastic syndrome, there was a social issue regarding the need for bioethics consult and this was because the patient was unaware of his MDS diagnosis for the last few months. It was felt after discussions with palliative care team and with family, that the patient had a right to know his diagnosis. Before that, the family was coordinating information to the patient as far as why the patient was having hemoptysis and why he was having low blood levels. In any event, after a bioethics meeting was held, myself, the hospitalist and hematology/oncology team went in with a measurement technician and explained to the patient his diagnosis, as the patient did consent to wanting to know now. We also provided him with the medical treatment plan at this point as well as unfortunately the refractoriness of his treatment at this point. It was mentioned to the patient a possible transfer to [facility] either as an inpatient or outpatient for further possible treatment if the patient qualifies for a new study looking into treatments for CML at this point. Although this is clinical trial at this point. The patient and family appeared to be interested in that option. In any event, it was felt that since the patient's hemoptysis symptoms improved and he was getting blood transfusions, his levels did remain low as far as his platelets in the 10 to 7 range, but again he had no bleeding for the last 48 hours. The hemoglobin did remain stable, however. Of note, the patient also was evaluated by the GI team and patient had had an EGD on a prior admission on 02/10/2015. At that time, he was diagnosed with distal esophagitis, severe hemorrhagic gastritis and duodenitis, but they recommended continuing the present management as well as PPI treatment as mentioned above. The patient was also found with a possible right upper lobe endobronchial lesion that because of the patient's thrombocytopenia, could not be evaluated by bronchoscopy at this time given the high-risk of bleeding, so no biopsy was obtained from this. This will have to be closely monitored as an outpatient as well. This could be contributing to the patient's hemoptysis, although again his platelet levels are so low that this could be the primary source as well or it could be a combination of the two. In any event, the patient will need follow up for that. He was able to ambulate and tolerate a p.o. diet. He had some low electrolytes that were repleted as well, some mild renal insufficiency that was resolving. After gets his final blood transfusion today and if he does not have any further hemoptysis episodes, the patient will be discharged home today. He will need close followup with the hematology team in the clinic in the next 3 to 5 days, and they will explore the option of possibly having the patient sent over to [facility] for this possible clinical trial for further treatment of MDS, since he has been refractory to current treatment. If the patient qualifies, that may be an option as well. He will be discharged today in improved condition after staying the night of 02/28/2017 to complete his blood transfusions. DISCHARGE MEDICATIONS: He will be sent with the following medications: 1. Lasix 20 mg daily. 2. Levothyroxine 50 mcg daily. 3. Metoprolol 25 mg b.i.d. 4. Protonix 40 mg b.i.d. 5. Klor-Con 8 mEq daily. 6. Carafate 1 gram q.i.d. FOLLOWUP: Again, close followup with primary care doctor and hematology/ oncology doctor in the next 3 to 5 days in the clinic. Home Meds Active Scripts Pantoprazole* (Protonix*) 40 Mg Tablet.dr, 40 MG PO BID for 30 Days, TAB Prov:CHARLY LAWRENCE 02/15/17 Sucralfate (Carafate) 1 Gm Tablet, 1 GM PO QID for 30 Days, TAB Prov:REGCHARLY DYKES 02/15/17 Potassium Chloride* (Klor-Con*) 8 Meq Tablet.sa, 8 MEQ PO DAILY for 30 Days Prov:CHARLY LAWRENCE 02/15/17 Levothyroxine Sodium* (Synthroid*) 50 Mcg Tablet, 50 MCG PO DAILY@06 for 30 Days , TAB Prov:REGCHARLY DYKES 02/15/17 Furosemide* (Lasix*) 20 Mg Tablet, 20 MG PO DAILY for 30 Days, TAB Prov:REGCHARLY DYKES 02/15/17 Metoprolol Tartrate* (Lopressor*) 25 Mg Tab, 25 MG PO BID for 30 Days, TAB 2 Refills Prov:CHARLY LAWRENCE 02/15/17 Pending Labs Laboratory Tests Test 03/01/17 07:31 White Blood Count 8.610^3/ul (4.8-10.8) Red Blood Count 3.1710^6/ul (4.70-6.10) Hemoglobin 9.5g/dl (14.0-18.0) Hematocrit 27.2% (42.0-52.0) Mean Corpuscular Volume 85.8fl (82.0-101.0) Mean Corpuscular Hemoglobin 30.0pg (29.0-33.0) Mean Corpuscular Hemoglobin Concent 34.9g/dl (32.0-37.0) Red Cell Distribution Width 14.5% (11.5-14.5) Platelet Count 1210^3/UL (140-415) Mean Platelet Volume 10.6fl (7.4-10.4) Neutrophils % 33.0% (39.0-77.0) Lymphocytes % 22.9% (15.0-51.0) Monocytes % 41.8% (0.0-11.0) Eosinophils % 0.2% (0.0-7.0) Basophils % 0.0% (0.0-2.0) Nucleated Red Blood Cells % 0.0/100WBC (0.0-0.0) Neutrophils # 2.810^3/ul (1.6-7.5) Lymphocytes # 2.010^3/ul (0.8-2.9) Monocytes # 3.610^3/ul (0.3-0.9) Eosinophils # 0.010^3/ul (0.0-0.5) Basophils # 0.010^3/ul (0.0-0.1) Nucleated Red Blood Cells # 0.010^3/ul (0.0-0.0) Sodium Level 142mmol/L (135-144) Potassium Level 2.9mmol/L (3.5-5.1) Chloride Level 103mmol/L (97-110) Carbon Dioxide Level 28mmol/L (21-31) Anion Gap 14 (8-16) Blood Urea Nitrogen 37mg/dl (7-20) Creatinine 1.36mg/dl (0.61-1.24) Glucose Level 86mg/dl (70-220) Calcium Level 8.2mg/dl (8.4-10.2) ANA RATLIFF Mar 01, 2017 11:57
== END 2017-03-01 12:35 | disposition home or self-care (01) | DRG 840 ==
LOC: E/R 13:53 → ICU 02-20 12:38 → MS1 02-27 16:15
PROVIDERS: ADMIT Family Medicine; ATTEND Family Medicine
PROC: 30233N1 Transfusion of Nonautologous Red Blood Cells into Peripheral Vein, Percutaneous Approach (ICD-10-PCS; principal; 2017-02-19)
PROC: 30233R1 Transfusion of Nonautologous Platelets into Peripheral Vein, Percutaneous Approach (ICD-10-PCS; 2017-02-19)
DX: C93.10 Chronic myelomonocytic leukemia not having achieved remission (principal); J18.9 Pneumonia, unspecified organism; N17.9 Acute kidney failure, unspecified; T17.590A Other foreign object in bronchus causing asphyxiation, initial encounter; R64 Cachexia; I42.9 Cardiomyopathy, unspecified; J44.0 Chronic obstructive pulmonary disease with (acute) lower respiratory infection; D69.59 Other secondary thrombocytopenia; R04.2 Hemoptysis; Z68.1 Body mass index [BMI] 19.9 or less, adult; J44.1 Chronic obstructive pulmonary disease with (acute) exacerbation; X58.XXXA Exposure to other specified factors, initial encounter; Y92.89 Other specified places as the place of occurrence of the external cause; K29.70 Gastritis, unspecified, without bleeding; K29.80 Duodenitis without bleeding; K20.9 Esophagitis, unspecified; D63.0 Anemia in neoplastic disease; R91.1 Solitary pulmonary nodule; E03.9 Hypothyroidism, unspecified
CPT/HCPCS: 36415; 36430; 71010; 71275; 80048; 80053; 80076; 80202; 81001; 81003; 82270; 83605; 83735; 84443; 84484; 85014; 85018; 85025; 85610; 85730; 86644; 86850; 86900; 86901; 86920; 86945; 87040; 87081; 93005; 94644; 94664; 96365; 96366; 96375; 96376; J1940; C9113; J0360; J0692; J2405; J3370; J3475; J7030; J7040; J7050; P9016; P9035; Q9967

== ENCOUNTER 2017-04-10 11:48 | Inpatient (IN) | payer BC ==
[~2017-04-10] VITALS: Ht 182.9 cm; Wt 66.4 kg
[2017-04-10] MEDS ORDERED: SOD CHLORIDE 0.9% 250 ML IV ONE (12:01)
[2017-04-10] MEDS ORDERED: FURO40TA4 PO (12:16)
[2017-04-10] MEDS ORDERED: HYDR-902 PO (12:19)
[2017-04-10] MEDS ORDERED: DOCU250C58 PO (12:19)
[2017-04-10] MEDS ORDERED: PROP10TA6 PO (12:20)
[2017-04-10] MEDS ORDERED: FAMO20TA18 PO (12:20)
[2017-04-10] MEDS ORDERED: METF500T4 PO (12:21)
[2017-04-10] MEDS ORDERED: ATOR10TA65 PO (12:21)
[2017-04-10] MEDS ORDERED: ESOM20CA32 PO (12:22)
[2017-04-10 12:26] LABS: ADD SCAN DIFF NO
[2017-04-10 12:29] LABS: ABNORMAL IP MESSAGE 1; HEMATOCRIT 19.1 % (42.0-52.0); MEAN CORPUSCULAR HGB CONC 32.5 g/dl (32.0-37.0); MEAN CORPUSCULAR VOLUME 89.3 fl (82.0-101.0); RED BLOOD COUNT 2.14 10^6/ul (4.70-6.10); RED CELL DISTRIBUTION WIDTH 16.3 % (11.5-14.5)
[2017-04-10 12:46] LABS: POTASSIUM 3.5 mmol/L (3.5-5.1)
[2017-04-10 12:49] LABS: CREATININE 1.59 mg/dl (0.61-1.24)
[2017-04-10 12:50] LABS: CALCIUM 8.4 mg/dl (8.4-10.2)
[2017-04-10 12:52] LABS: INR 1.22; PROTIME 15.5 Sec (12.2-14.2); PT RATIO 1.2
[2017-04-10 12:53] LABS: PARTIAL THROMBOPLASTIN TIME 42.9 Sec (25.0-35.0)
[2017-04-10 13:03] LABS: HEMOGLOBIN 6.2 g/dl (14.0-18.0)
--- NOTE | 2017-04-10 13:53 | ERA ---
ER Documentation Chief Complaint Date/Time DATE: 04/10/17 TIME: 13:50 Chief Complaint low hemoglobin lab drawn yesterday at Dr. Pryor HPI 71-year-old male history of CML, myelodysplastic disorder who presents the emergency room with low hemoglobin. The patient had routine blood draw by Dr. Pryor yesterday. The patient was told to come to the emergency room for transfusion. He denies any lightheadedness he does describe mild weakness. No chest pain or shortness of breath no falls or injury or spontaneous bleeding. ROS All systems reviewed and are negative except as per history of present illness. Medications Home Meds Active Scripts Sucralfate (Carafate) 1 Gm Tablet, 1 GM PO QID for 30 Days, TAB Prov:CHARLY LAWRENCE 02/15/17 Potassium Chloride* (Klor-Con*) 8 Meq Tablet.sa, 8 MEQ PO DAILY for 30 Days Prov:CHARLY LAWRENCE 02/15/17 Levothyroxine Sodium* (Synthroid*) 50 Mcg Tablet, 50 MCG PO DAILY@06 for 30 Days , TAB Prov:CHARLY LAWRENCE 02/15/17 Metoprolol Tartrate* (Lopressor*) 25 Mg Tab, 25 MG PO BID for 30 Days, TAB 2 Refills Prov:CHARLY LAWRENCE 02/15/17 Reported Medications Esomeprazole Magnesium (Nexium 24Hr) 22.3 Mg Capsule., 22.3 MG PO BID, #30 CAP 04/10/17 Atorvastatin Calcium (Atorvastatin Calcium) 10 Mg Tablet, 10 MG PO QHS, #30 TAB 04/10/17 Metformin Hcl* (Metformin Hcl*) 500 Mg Tablet, 500 MG PO WITH BREAKFAST DINNE, # 30 TAB 04/10/17 Famotidine* (Famotidine*) 20 Mg Tablet, 20 MG PO DAILY, #30 TAB 04/10/17 Propranolol Hcl* (Propranolol Hcl*) 10 Mg Tablet, 10 MG PO BID, TAB 04/10/17 Docusate Sodium* (Colace*) 250 Mg Capsule, 250 MG PO BID, #60 CAP 04/10/17 Hydrocodone/Acetaminophen ([place] 10-325 Tablet) 1 Each Tablet, 1 EACH PO Q6 Y for PAIN, TAB 04/10/17 Furosemide* (Furosemide*) 40 Mg Tablet, 40 MG PO DAILY, TAB 04/10/17 Discontinued Scripts Pantoprazole* (Protonix*) 40 Mg Tablet.dr, 40 MG PO BID for 30 Days, TAB Prov:REGIDORCHARLY 02/15/17 Furosemide* (Lasix*) 20 Mg Tablet, 20 MG PO DAILY for 30 Days, TAB Prov:REGIDORCHARLY 02/15/17 Allergies Allergies: Coded Allergies: No Known Allergy (Unverified , 04/10/17) PMhx/Soc Medical and Surgical Hx: pt denies Medical Hx, pt denies Surgical Hx History of Surgery: Yes (STOMACH SX,) Anesthesia Reaction: No Hx Neurological Disorder: No Hx Respiratory Disorders: Yes (PNA) Hx Cardiac Disorders: No Hx Psychiatric Problems: No Hx Miscellaneous Medical Probl: Yes (anemia) Hx Alcohol Use: No Hx Substance Use: No Hx Tobacco Use: No Smoking Status: Never smoker FmHx Family History: No diabetes Physical Exam Vitals Vital Signs Date Time Temp Pulse Resp B/P Pulse Ox O2 Delivery O2 Flow Rate FiO2 04/10/17 12:18 93 18 126/62 99 Room Air 04/10/17 11:52 98.1 104 20 128/59 98 Physical Exam General: Well developed, well nourished, no acute distress Head: Normocephalic, atraumatic. Eyes: Pupils equally reactive, EOM intact, conjunctival pallor ENT: Moist mucous membranes Neck: Supple, no lymphadenopathy Respiratory: Lungs clear bilaterally, no distress Cardiovascular: RRR, no murmurs, rubs, or gallops Abdominal: Soft, non-tender, non-distended, no peritoneal signs : Deferred MSK: No edema, no unilateral swelling, 5/5 strength Neurologic: Alert and oriented, moving all extremities, normal speech, no focal weakness, no cerebellar signs Skin: No rash, no purpura or ecchymoses Psych: Normal mood Result Diagram: 04/10/17 1215 04/10/17 1215 Results 24 hrs Laboratory Tests Test 04/10/17 12:15 White Blood Count 8.310^3/ul Red Blood Count 2.1410^6/ul Hemoglobin 6.2g/dl Hematocrit 19.1% Mean Corpuscular Volume 89.3fl Mean Corpuscular Hemoglobin 29.0pg Mean Corpuscular Hemoglobin Concent 32.5g/dl Red Cell Distribution Width 16.3% Platelet Count 610^3/UL Mean Platelet Volume fl Neutrophils % % Lymphocytes % % Monocytes % % Neutrophils # 10^3/ul Lymphocytes # 10^3/ul Monocytes # 10^3/ul Prothrombin Time 15.5Sec Prothrombin Time Ratio 1.2 INR International Normalized Ratio 1.22 Activated Partial Thromboplast Time 42.9Sec Sodium Level 141mmol/L Potassium Level 3.5mmol/L Chloride Level 103mmol/L Carbon Dioxide Level 28mmol/L Anion Gap 14 Blood Urea Nitrogen 25mg/dl Creatinine 1.59mg/dl Glucose Level 159mg/dl Calcium Level 8.4mg/dl Current Medications Medications (Trade) Dose Ordered Sig/Sandra Route PRN Reason Start Time Stop Time Status Last Admin Dose Admin Sodium Chloride (NS) 250 ml @ 0 mls/hr Q0M ONCE IV 04/10/17 12:01 04/10/17 12:04 DC Ondansetron HCl (Zofran Inj) 4 mg BRIDGE ORDER PRN IV NAUSEA AND/OR VOMITING 04/10/17 14:00 04/11/17 13:59 Acetaminophen (Tylenol Tab) 650 mg ER BRIDGE PRN PO MILD PAIN/FEVER 04/10/17 14:00 04/11/17 13:59 Procedures/MDM LAB INTERPRETATION: Anemia and thrombocytopenia MEDICAL DECISION MAKING: The patient has CML and myelodysplastic syndrome he presents for routine blood draw showing evidence of anemia. The patient only has mild symptoms at this time without significant evidence of endorgan dysfunction. ER COURSE: The patient's laboratory values show significant anemia and thrombocytopenia. Given that the platelets are less than 10 I believe transfusion would be appropriate. The patient will benefit from packed red blood cells as well as platelets. The patient was verbally consented for transfusion and states understanding of the risks, benefits, alternatives. A document was signed and placed in the chart. The patient will be admitted for transfusion. I kept the patient and/or family informed of laboratory and diagnostic imaging results throughout the emergency room course. DISPOSITION PLAN: Medical surgical admission for management of anemia and thrombocytopenia CONSULTATION: Accepting care team and consultations: I discussed the current laboratory data, diagnostic imaging and emergency care provided. Admitting team: Dr. Roman Admitting team indication: Insurance directed Departure Diagnosis: Primary Impression: CML (chronic myelocytic leukemia) Additional Impressions: Myelodysplastic syndrome Anemia Qualified Code: D64.9 - Anemia, unspecified type Thrombocytopenia Condition: HEATHER Bentley MD April 10, 2017 13:53
[2017-04-10] MEDS ORDERED: ACETAMINOPHEN 325 MG TAB PO PRN ×2 (14:00→16:30)
[2017-04-10] MEDS ORDERED: ONDANSETRON 4 MG INJ IV PRN ×2 (14:00→16:30)
[2017-04-10 14:26] LABS: LYMPHOCYTES # 2.4 10^3/ul (0.8-2.9); MONOCYTE # 3.3 10^3/ul (0.3-0.9); MYELOCYTES # 0.1; NEUTROPHIL # 1.9 10^3/ul (1.6-7.5)
[2017-04-10 14:27] LABS: PLATELET ESTIMATE PLT APPEAR DECREASED
--- NOTE | 2017-04-10 16:16 | HP ---
Date/Time of Note Date/Time of Note DATE: 04/10/17 TIME: 16:01 Assessment/Plan VTE Prophylaxis VTE Prophylaxis Intervention: SCD's Assessment/Plan Chief Complaint/Hosp Course Impression and plan 1. Pancytopenia secondary to CML/myelodysplastic syndrome. Will transfuse blood products. Will get radioisotope technologist/oncologist follow. Monitor CBC 2. 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 Patient with reported chest pain. Will get glass driller to follow. To need O2 as needed. 3.Cardiopathy. Will resume patient on his cardiovascular medications. 4. History of hypothyroidism. Continue on Synthroid medication 5. History of diabetes. Continue insulin regimen 6. Essential hypertension. Continue antihypertensives and adjust as needed 7. Hyperlipidemia. Continue on statin medication 8. Reported chest pain. Follow-up on serial troponins Discussed plan of care with Dr. Velasquez Problems: HPI/ROS Admit Date/Time Admit Date/Time Hx of Present Illness This is a 71-year-old male who was recently hospitalized on January 31, 2017 and discharged on February 15, 2017 who came back again due to pancytopenia. Patient does have a history of CML as well as myelodysplastic syndrome. He reported having chest pain for 2 days duration more midsternal. He also had some shortness of breath. He did go to his oncologist 1 day prior to admission and was told to go to the hospital due to his pancytopenia. He also did report that his chest pain had been worsening more midsternal nonradiating with associated shortness of breath with no specific cause of chest pain and subsequently went to [facility] for further evaluation. Upon examination he was found to be pancytopenic with hemoglobin of 6.2 and hematocrit of 19.1. Additionally had platelets of 6. He of note does follow- up with Dr. Pryor as his oncologist. Patient did previously have a CTA of his chest done in February 2017 that did show a possible mass in the right mainstem bronchus and also a possible masses in the right upper lung lobe measuring up to 1.7 cm. Patient was also noted to have some renal dysfunction with creatinine of 1.59. Patient is remained alert and oriented. No acute distress and at this time. He does report little improvement of his chest pain although he does report it is 7 out of 10 in intensity achy-like in nature. No other specific complaints at this time. We will evaluate him for the aformentiond issues ROS 12 point review of systems obtained and entirely negative except that mentioned in history of present illness PMH/Family/Social Past Medical History Medical/surgical history 1. CML 2. Myelodysplastic syndrome 3. NSTEMI type II 4. Pancytopenia 5. Acute kidney injury 6. Cardiomyopathy 7. Pulmonary hypertension 8. History of possible mass in the right mainstem bronchus as well as right upper lung lobe Family History Significant Family History: no pertinent family hx Social History Alcohol Use: none Smoking Status: Never smoker Drug Use: none Exam/Review of Systems Vital Signs Vitals Vital Signs Date Time Temp Pulse Resp B/P Pulse Ox O2 Delivery O2 Flow Rate FiO2 04/10/17 12:18 93 18 126/62 99 Room Air 04/10/17 11:52 98.1 Exam Constitutional: alert Psych: nl mood/affect Head: normocephalic Neck: No jvd Respiratory: clear to auscultation, normal air movement Cardiovascular: systolic murmur Gastrointestinal: non-tender, soft Musculoskeletal: nl extremities to inspection Neurological: 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
[2017-04-10] MEDS ORDERED: NACL 0.9% 3 ML SYG IV SCH (16:30)
[2017-04-10] MEDS ORDERED: BISACODYL 10 MG SUPP PR PRN (16:30)
[2017-04-10] MEDS ORDERED: HYDROCODONE/APAP (5/325) TAB PO PRN ×2 (16:30)
[2017-04-10] MEDS ORDERED: DOCUSATE SODIUM 100 MG CAP PO PRN (16:30)
[2017-04-10] MEDS ORDERED: ACETAMINOPHEN 650 MG SUPP PR PRN (16:30)
[2017-04-10] MEDS ORDERED: HYDROCODONE/APAP (10/325) TAB PO PRN (16:30)
[2017-04-10] MEDS ORDERED: MAGNESIUM HYDROXIDE 30ML CUP PO PRN (16:30)
[2017-04-10] MEDS ORDERED: morphine 2 MG INJ IV PRN (16:30)
[2017-04-10] MEDS ORDERED: GLUCOSE GEL 15 GRAM TUBE PO PRN ×2 (17:00)
[2017-04-10] MEDS ORDERED: GLUCOSE GEL 15 GRAM TUBE BUCCAL PRN (17:00)
[2017-04-10] MEDS: SUCRALFATE 1 GM TAB PO SCH ×2 (17:00→21:12)
[2017-04-10] MEDS ORDERED: GLUCAGON 1 MG INJ IM PRN (17:00)
[2017-04-10] MEDS ORDERED: DEXTROSE 50% 50 ML SYRINGE IV PRN ×2 (17:00)
--- NOTE | 2017-04-10 17:07 | CONS ---
DATE OF ADMISSION: 04/10/2017 DATE OF CONSULTATION: 04/10/2017 NEPHROLOGY CONSULTATION REFERRING PHYSICIANS: Melina Roman MD/Robert Ricci MD. REASON FOR CONSULTATION: Acute kidney injury. HISTORY OF PRESENT ILLNESS: This is a 71-year-old male who has a past medical history of a right ma instem bronchus mass in the right lung, hypothyroidism, diabetes mellitus, hyperlipidemia, a history of myelodysplastic syndrome and chronic myeloid leukemia. The patient has been seen recently in [facility] last few times for pancytopenia, GI bleeding, and also secondary to acute renal failure. This [facility] he presented with pancytopenia secondary to his CML, and getting blood transfusions, and noted to have acute kidney injury, an elevated BUN and creatinine, so renal has been consulted for acute kidn ey injury. The patient reported the pain is a 7/10 in the emergency room and getting admitted to [facility] telemetry floor. REVIEW OF SYSTEMS: As per HPI. PAST MEDICAL HISTORY: History of myelodysplastic syndrome/CML, right mainstem bronchus mass in the r ight lung, diabetes, hypertension, hyperlipidemia. PAST SURGICAL HISTORY: History of previous stomach surgery, history of recent admission for pancytop enia bleeding, and now acute renal failure. SOCIAL HISTORY: The patient lives with his family. No smoking, alcohol, or recreational drug use. FAMILY HISTORY: Not available. PHYSICAL EXAMINATION: VITAL SIGNS: Temperature 98.1, heart rate 93, respirations 18, blood pressure 126/62, saturations 9 9% on room air. GENERAL: Awake, alert, in no acute distress. HEENT: Normal. Oropharynx is clear. NECK: Supple. No JVD, no lymphadenopathy. LUNGS: Clear to auscultation. No crackles, no wheezes. HEART: S1, S2, with a regular rhythm. No murmur. ABDOMEN: Soft, nontender, nondistended. Bowel sounds are present. EXTREMITIES: No clubbing, cyanosis, or edema. NEUROLOGICAL: Nonfocal, intact. PSYCHIATRIC: Appropriate affect and mood. LABORATORY DATA/DIAGNOSTIC IMAGING: WBC 8.3, hemoglobin 6.2, platelet count 6. Sodium 141, potassium 3.5, chloride 103, bicarbonate 28, BUN 25, creatinine 1.5, glucose 159, calcium 8.4. PT 15.5, PTT 42. INR 1.2. IMPRESSION: This is a 71-year-old male who is getting admitted for pancytopenia and possible blood transfusion. Renal has been consulted for: 1. Acute kidney injury secondary to acute tubular necrosis and severe prerenal azotemia. 2. History of CML/myelodysplastic syndrome, who presented with pancytopenia. Plan for PRBC transfu mike. 3. Hypertension. 4. Diabetes mellitus. 5. Hyperlipidemia. 6. Hypothyroidism. PLAN: Thank you, Dr. Melina Roman/Dr. Robert Ricci, for this consultation. The patient is curre ntly seen in the emergency room. He is getting admitted to the telemetry floor. IV fluids to chetan nue at 60 mL per hour. Plan is to do blood transfusions. Other medications as per orders. The Las ix has been ordered at 40 mg p.o. daily, so I will continue the Lasix. The patient is currently see n in the emergency room. I am expecting the patient's creatinine to improve with IV fluid hydration and blood transfusion. Depending on the patient's response to the IV fluid hydration, we will deci js for further plan and management. Thank doctors for this consultation. I will continue to follow this patient along with you. Total time spent for this patient's evaluation, the patient currently seen in the emergency room, co mmunicating with the patient's family at the bedside and communicating and the nursing staff, took m ore than 60 minutes. Dictated By: GILL PEREIRA MD, KP/RADHA Conf#: [id number] DID#: [id number]
[2017-04-10 17:44] LABS: PLATELET COUNT 6 10^3/UL (140-415); WHITE BLOOD COUNT 8.3 10^3/ul (4.8-10.8)
[2017-04-10] MEDS: INSULIN ASPART [NOVOLOG] 3 ML PEN SC SCH ×2 (18:00→20:31)
[2017-04-10] MEDS: metFORMIN 500 MG TAB PO SCH (18:00)
[2017-04-10 19:15] VITALS: BP 138/65; RESP 18
[2017-04-10] MEDS: ATORVASTATIN 10 MG TAB PO SCH (21:07)
[2017-04-10] MEDS: DOCUSATE SODIUM 250 MG CAP PO SCH (21:07)
[2017-04-10] MEDS: METOPROLOL 25 MG TAB PO SCH (21:08)
[2017-04-10] MEDS: SOD CHLORIDE 0.9% 1,000 ML IV SCH (21:16)
[2017-04-10] MEDS: PROPRANOLOL 10 MG TAB PO SCH (23:24)
[2017-04-10 23:43] VITALS: BP 124/63; PULSE 79; RESP 18
[2017-04-11] MEDS: LEVOTHYROXINE 50 MCG TAB PO SCH (05:11)
[2017-04-11 05:17] LABS: ALBUMIN 2.8 g/dl (3.3-4.9); ALBUMIN/GLOBULIN RATIO 0.57; BILIRUBIN,INDIRECT 0.5 mg/dl (0-1.1); BILIRUBIN,TOTAL 0.5 mg/dl (0.2-1.3); CALCIUM 7.8 mg/dl (8.4-10.2); CHOL/HDL RATIO 5.4 RATIO; CREATININE 1.43 mg/dl (0.61-1.24); MAGNESIUM 1.8 mg/dl (1.7-2.5); PHOSPHORUS 4.2 mg/dl (2.5-4.9); POTASSIUM 3.4 mmol/L (3.5-5.1); TOTAL PROTEIN 7.7 g/dl (6.1-8.1)
[2017-04-11 05:33] LABS: T3 UPTAKE 36.3 % (23.5-40.5)
[2017-04-11 05:46] LABS: THYROID STIMULATING HORMONE 5.15 MIU/L (0.465-4.680)
[2017-04-11] MEDS ORDERED: PANTOPRAZOLE 40 MG INJ IV SCH (06:00)
[2017-04-11] MEDS: INSULIN ASPART [NOVOLOG] 3 ML PEN SC SCH ×4 (07:50→20:55)
[2017-04-11 08:11] VITALS: BP 132/62; RESP 18
[2017-04-11] MEDS: metFORMIN 500 MG TAB PO SCH ×2 (08:40→18:40)
[2017-04-11] MEDS: DOCUSATE SODIUM 250 MG CAP PO SCH ×2 (08:41→20:49)
[2017-04-11] MEDS: POTASSIUM CHLORIDE (SR) 8 MEQ CAP PO SCH (08:41)
[2017-04-11] MEDS: SUCRALFATE 1 GM TAB PO SCH ×4 (08:41→20:50)
[2017-04-11] MEDS: FUROSEMIDE 40 MG TAB PO SCH (08:42)
[2017-04-11] MEDS: METOPROLOL 25 MG TAB PO SCH ×2 (08:42→20:50)
[2017-04-11] MEDS: FAMOTIDINE 20 MG TAB PO SCH (08:42)
[2017-04-11] MEDS: PROPRANOLOL 10 MG TAB PO SCH ×2 (08:43→20:50)
[2017-04-11] MEDS: SOD CHLORIDE 0.9% 1,000 ML IV SCH (08:48)
--- NOTE | 2017-04-11 10:03 | CONS ---
Date/Time of Note Date/Time of Note DATE: 04/11/17 TIME: 09:58 Assessment/Plan Assessment/Plan Additional Assessment/Plan Assessment recommendations; next 1. Patient admitted with chest pain with severe anemia possibly angina equivalent with interval resolution after packed RBC transfusion. 2. History of CML with severe bone marrow depression. Patient has required multiple units of blood products over the last few months. 3. Questionable lung mass. 4. Renal insufficiency. Obtain a CBC post blood transfusion. If the numbers are adequate patient would like to be discharged home. On account of multiple other comorbidities especially in light of severe anemia severe thrombocytopenia patient is not a candidate for any invasive procedures and a bronchoscopy is contraindicated at this point. Consultation Date/Type/Reason Admit Date/Time Date of Consultation: April 11, 2017 Type of Consultation: Pulmonary Reason for Consultation Pulmonary consultations requested for evaluation of chest pain with the possibility of performing a bronchoscopy to rule out any endobronchial lesion on the left side. History of present illness; patient is a 71-year-old [place] male who came into the emergency room with complaints of left sided chest pain with some shortness of breath. Upon evaluation a CBC was done which showed severe anemia as well as severe thrombocytopenia. Patient had been transfused blood products overnight and according to him he is feeling markedly better now. Denies any further chest pain any shortness of breath. Also denies any coughing sputum production or hemoptysis. Denies any fever chills. Denies any bleeding episodes. Past medical history; 1. History of CML. 2. History of severe recurrent anemia as well as severe thrombocytopenia status post multiple blood product transfusions. 3. Renal insufficiency. 4. Mild CHF. 6. History of respiratory failure couple months ago due to severe bilateral pneumonia patient had a prolonged hospital stay here. Medications; reviewed. Allergies; none. Social history; patient smokes off and on. Family history; patient is has a very supportive family. No history of any malignancy in the family. 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 Review of systems; denies any headache, seizures. Any visual changes. Chest pain has resolved. Shortness of breath is markedly improved as well. Denies any cough, sputum production hemoptysis. Denies any abdominal pain, nausea vomiting. Denies any hematemesis melena. Denies any edema. Has stable weight. Has fair appetite. Complains of easy skin bruising. General exam; elderly male, awake alert currently in no distress. Psychological: nl mood/affect Social History Alcohol Use: none Smoking Status: Former smoker Drug Use: none Exam/Review of Systems Vital Signs Vitals Vital Signs Date Time Temp Pulse Resp B/P Pulse Ox O2 Delivery O2 Flow Rate FiO2 04/11/17 08:11 97.8 78 18 132/62 90 04/11/17 03:08 3.0 04/10/17 23:43 Room Air Intake and Output 04/10/17 04/10/17 04/11/17 15:00 23:00 07:00 Intake Total 298 ml 1060 ml Balance 298 ml 1060 ml Exam HEENT exam; supple neck, no JVD. No lymphadenopathy. Midline trachea. No thyromegaly. Pharynx is clear. There are very minimal palate petechiae. Patient is edentulous. Pupils are midsize and reactive to light bilaterally and equally. Chest examination; clear to auscultation. S1-S2 audible, no murmurs. Regular rhythm. Abdomen examination; soft, nontender. No organomegaly. Bowel sounds audible. Extremity examination; no peripheral edema. Pulses 1+ bilaterally. 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 Results Result Diagram: 04/10/17 1215 04/11/17 0435 Results 24 hrs Laboratory Tests Test 04/10/17 12:15 04/10/17 20:25 04/10/17 23:40 04/11/17 04:35 White Blood Count 8.3 Red Blood Count 2.14 #L Hemoglobin 6.2 #*L Hematocrit 19.1 #L Mean Corpuscular Volume 89.3 Mean Corpuscular Hemoglobin 29.0 Mean Corpuscular Hemoglobin Concent 32.5 Red Cell Distribution Width 16.3 H Platelet Count 6 #*L Mean Platelet Volume Neutrophils % 23.0 L Band Neutrophils % 2.0 Lymphocytes % 29.0 Monocytes % 40.0 H Metamyelocytes % 1.0 H Myelocytes % 1.0 H Promyelocytes % 1.0 H Blast Cells % 3.0 H Nucleated Red Blood Cells % 3.0 H Neutrophils # 1.9 Lymphocytes # 2.4 Monocytes # 3.3 H Metamyelocytes # 0.1 Myelocytes # 0.1 Promyelocytes # 0.1 Blastocytes # 0.2 Platelet Estimate PLT APPEAR DECREASED Clumped Platelets Prothrombin Time 15.5 H Prothrombin Time Ratio 1.2 INR International Normalized Ratio 1.22 Activated Partial Thromboplast Time 42.9 H Sodium Level 141 138 Potassium Level 3.5 3.4 L Chloride Level 103 106 Carbon Dioxide Level 28 27 Anion Gap 14 8 Blood Urea Nitrogen 25 H 24 H Creatinine 1.59 H 1.43 H Glucose Level 159 99 # Calcium Level 8.4 7.8 L Bedside Glucose 115 Troponin I < 0.012 Hemoglobin A1c 6.6 H Phosphorus Level 4.2 Magnesium Level 1.8 Total Bilirubin 0.5 Direct Bilirubin 0.00 Indirect Bilirubin 0.5 Aspartate Amino Transf (AST/SGOT) 20 Alanine Aminotransferase (ALT/SGPT) 13 Alkaline Phosphatase 62 Total Protein 7.7 Albumin 2.8 L Globulin 4.90 H Albumin/Globulin Ratio 0.57 Triglycerides Level 125 Cholesterol Level 98 L LDL Cholesterol, Calculated 55 HDL Cholesterol 18 L Cholesterol/HDL Ratio 5.4 Thyroid Stimulating Hormone (TSH) 5.150 H Free Thyroxine Index 2.40 Thyroxine (T4) 6.6 Triiodothyronine (T3) Uptake 36.3 Test 04/11/17 08:17 Bedside Glucose 104 Medications Medications Current Medications Atorvastatin Calcium (Lipitor) 10 mg QHS PO Last administered on 04/10/17 21: 07; Admin Dose 10 MG; Start 04/10/17 at 21:00 Docusate Sodium (Colace) 250 mg BID PO Last administered on 04/11/17 08:41; Admin Dose 250 MG; Start 04/10/17 at 21:00 Famotidine (Pepcid) 20 mg DAILY PO Last administered on 04/11/17 08:42; Admin Dose 20 MG; Start 04/11/17 at 09:00 Furosemide (Lasix) 40 mg DAILY PO Last administered on 04/11/17 08:42; Admin Dose 40 MG; Start 04/11/17 at 09:00 Acetaminophen/ Hydrocodone Bitart ([place] (10/325)) 1 tab Q6 PRN PO PAIN; Start 04/10/17 at 16:30 Levothyroxine Sodium (Synthroid) 50 mcg DAILY@06 PO Last administered on 05:11; Admin Dose 50 MCG; Start 04/11/17 at 06:00 Metoprolol Tartrate (Lopressor) 25 mg BID PO Last administered on 04/11/17 08: 42; Admin Dose 25 MG; Start 04/10/17 at 21:00 Potassium Chloride (Micro-K) 8 meq DAILY PO Last administered on 04/11/17 08: 41; Admin Dose 8 MEQ; Start 04/11/17 at 09:00 Propranolol HCl (Inderal) 10 mg BID PO Last administered on 04/11/17 08:43; Admin Dose 10 MG; Start 04/10/17 at 21:00 Sucralfate 1 gm 1 gm QID PO Last administered on 04/11/17 08:41; Admin Dose 1 GM; Start 04/10/17 at 17:00 Sodium Chloride (NS) 1,000 ml @ 60 mls/hr [id number] IV Last administered on 04/10 21:16; Admin Dose 60 MLS/HR; Start 04/10/17 at 16:08 Ondansetron HCl (Zofran Inj) 4 mg Q6H PRN IV NAUSEA AND/OR VOMITING; Start at 16:30 Acetaminophen (Tylenol Tab) 650 mg Q6H PRN PO PAIN LEVEL 1-3 OR FEVER; Start at 16:30 Acetaminophen (Tylenol Supp) 650 mg Q6H PRN [place] PAIN LEVEL 1-3 OR FEVER; Start 04/10/17 at 16:30 Acetaminophen/ Hydrocodone Bitart ([place] (5/325)) 1 tab Q6H PRN PO MODERATE PAIN LEVEL 4-6; Start 04/10/17 at 16:30 Acetaminophen/ Hydrocodone Bitart ([place] (5/325)) 2 tab Q6H PRN PO SEVERE PAIN LEVEL 7-10; Start 04/10/17 at 16:30 Morphine Sulfate (morphine) 2 mg Q4H PRN IV SEVERE PAIN LEVEL 7-10; Start 04/10 at 16:30 Docusate Sodium (Colace) 100 mg Q12H PRN PO CONSTIPATION; Start 04/10/17 at 16: 30 Magnesium Hydroxide (Milk Of Mag) 30 ml DAILY PRN PO CONSTIPATION; Start at 16:30 Bisacodyl (Dulcolax Supp) 10 mg DAILY PRN [place] CONSTIPATION; Start 04/10/17 at 16 :30 Pantoprazole (Protonix Iv) 40 mg DAILY@06 IV Last administered on 04/11/17 05: 10; Admin Dose 40 MG; Start 04/11/17 at 06:00 Miscellaneous Information 1 ea NOTE XX ; Start 04/10/17 at 17:00 Glucose (Glutose) 15 gm Q15M PRN PO DECREASED GLUCOSE; Start 04/10/17 at 17:00 Glucose (Glutose) 22.5 gm Q15M PRN PO DECREASED GLUCOSE; Start 04/10/17 at 17: 00 Dextrose (D50w Syringe) 25 ml Q15M PRN IV DECREASED GLUCOSE; Start 04/10/17 at 17:00 Dextrose (D50w Syringe) 50 ml Q15M PRN IV DECREASED GLUCOSE; Start 04/10/17 at 17:00 Glucagon (Glucagen) 1 mg Q15M PRN IM DECREASED GLUCOSE; Start 04/10/17 at 17:00 Glucose (Glutose) 15 gm Q15M PRN BUCCAL DECREASED GLUCOSE; Start 04/10/17 at 17 :00 MYESHA OLIVER April 11, 2017 10:03
[2017-04-11 10:42] LABS: ADD SCAN DIFF NO
[2017-04-11 10:47] LABS: ABNORMAL IP MESSAGE 1; HEMATOCRIT 23.7 % (42.0-52.0); HEMOGLOBIN 7.8 g/dl (14.0-18.0); MEAN CORPUSCULAR HEMOGLOBIN 28.3 pg (29.0-33.0); MEAN CORPUSCULAR HGB CONC 32.9 g/dl (32.0-37.0); MEAN CORPUSCULAR VOLUME 85.9 fl (82.0-101.0); RED BLOOD COUNT 2.76 10^6/ul (4.70-6.10); RED CELL DISTRIBUTION WIDTH 15.7 % (11.5-14.5); WHITE BLOOD COUNT 12.9 10^3/ul (4.8-10.8)
[2017-04-11 10:51] LABS: PLATELET COUNT 6 10^3/UL (140-415)
--- NOTE | 2017-04-11 11:26 | RADRPT ---
Vent Rate: 83 bpm RR Interval: 0 msec [place] Interval: 194 msec QRS Duration: 156 msec QT Interval: 432 msec QTC Interval: 507 msec P-R-T [place]: 60 - -17 - 89 degrees Sinus rhythm with fusion complexes Left bundle branch block Abnormal ECG Electronically Signed By: Paul Dixon [id number]
[2017-04-11] MEDS ORDERED: SOD CHLORIDE 0.9% 250 ML IV* ONE (11:33)
--- NOTE | 2017-04-11 12:01 | CONS ---
Date/Time of Note Date/Time of Note DATE: 04/11/17 TIME: 12:00 Assessment/Plan Assessment/Plan Additional Assessment/Plan 1. Acute kidney injury secondary to acute tubular necrosis and severe prerenal azotemia. 2. History of CML/myelodysplastic syndrome, who presented with pancytopenia. Plan for PRBC transfusion. 3. Hypertension. 4. Diabetes mellitus. 5. Hyperlipidemia. 6. Hypothyroidism. PLAN: Cr improved to 1.43 with IVF hydration will follow up continue current IVF BP stable Consultation Date/Type/Reason Admit Date/Time April 10, 2017 at 13:38 Initial Consult Date 04/11/17 Type of Consultation: NEPHROLOGY Reason for Consultation acute kidney injury Referring Provider: DUNIA BECKWITH 24 HR Interval Summary Free Text/Dictation Cr improved to 1.43 Exam/Review of Systems Vital Signs Vitals Vital Signs Date Time Temp Pulse Resp B/P Pulse Ox O2 Delivery O2 Flow Rate FiO2 04/11/17 08:11 97.8 78 18 132/62 90 04/11/17 03:08 3.0 04/10/17 23:43 Room Air Intake and Output 04/10/17 04/10/17 04/11/17 15:00 23:00 07:00 Intake Total 298 ml 1060 ml Balance 298 ml 1060 ml Exam GENERAL: Awake, alert, in no acute distress. HEENT: Normal. Oropharynx is clear. NECK: Supple. No JVD, no lymphadenopathy. LUNGS: Clear to auscultation. No crackles, no wheezes. HEART: S1, S2, with a regular rhythm. No murmur. ABDOMEN: Soft, nontender, nondistended. Bowel sounds are present. EXTREMITIES: No clubbing, cyanosis, or edema. NEUROLOGICAL: Nonfocal, intact. PSYCHIATRIC: Appropriate affect and mood. Results Result Diagram: 04/11/17 1034 04/11/17 0435 Results 24 hrs Laboratory Tests Test 04/10/17 12:15 04/10/17 20:25 04/10/17 23:40 04/11/17 04:35 White Blood Count 8.3 Red Blood Count 2.14 #L Hemoglobin 6.2 #*L Hematocrit 19.1 #L Mean Corpuscular Volume 89.3 Mean Corpuscular Hemoglobin 29.0 Mean Corpuscular Hemoglobin Concent 32.5 Red Cell Distribution Width 16.3 H Platelet Count 6 #*L Mean Platelet Volume Neutrophils % 23.0 L Band Neutrophils % 2.0 Lymphocytes % 29.0 Monocytes % 40.0 H Metamyelocytes % 1.0 H Myelocytes % 1.0 H Promyelocytes % 1.0 H Blast Cells % 3.0 H Nucleated Red Blood Cells % 3.0 H Neutrophils # 1.9 Lymphocytes # 2.4 Monocytes # 3.3 H Metamyelocytes # 0.1 Myelocytes # 0.1 Promyelocytes # 0.1 Blastocytes # 0.2 Platelet Estimate PLT APPEAR DECREASED Clumped Platelets Prothrombin Time 15.5 H Prothrombin Time Ratio 1.2 INR International Normalized Ratio 1.22 Activated Partial Thromboplast Time 42.9 H Sodium Level 141 138 Potassium Level 3.5 3.4 L Chloride Level 103 106 Carbon Dioxide Level 28 27 Anion Gap 14 8 Blood Urea Nitrogen 25 H 24 H Creatinine 1.59 H 1.43 H Glucose Level 159 99 # Calcium Level 8.4 7.8 L Bedside Glucose 115 Troponin I < 0.012 Hemoglobin A1c 6.6 H Phosphorus Level 4.2 Magnesium Level 1.8 Total Bilirubin 0.5 Direct Bilirubin 0.00 Indirect Bilirubin 0.5 Aspartate Amino Transf (AST/SGOT) 20 Alanine Aminotransferase (ALT/SGPT) 13 Alkaline Phosphatase 62 Total Protein 7.7 Albumin 2.8 L Globulin 4.90 H Albumin/Globulin Ratio 0.57 Triglycerides Level 125 Cholesterol Level 98 L LDL Cholesterol, Calculated 55 HDL Cholesterol 18 L Cholesterol/HDL Ratio 5.4 Thyroid Stimulating Hormone (TSH) 5.150 H Free Thyroxine Index 2.40 Thyroxine (T4) 6.6 Triiodothyronine (T3) Uptake 36.3 Test 04/11/17 08:17 04/11/17 10:34 Bedside Glucose 104 White Blood Count 12.9 #H Red Blood Count 2.76 #L Hemoglobin 7.8 #L Hematocrit 23.7 #L Mean Corpuscular Volume 85.9 Mean Corpuscular Hemoglobin 28.3 L Mean Corpuscular Hemoglobin Concent 32.9 Red Cell Distribution Width 15.7 H Platelet Count 6 *L Mean Platelet Volume Medications Medications Current Medications Atorvastatin Calcium (Lipitor) 10 mg QHS PO Last administered on 04/10/17t 21: 07; Admin Dose 10 MG; Start 04/10/17 at 21:00 Docusate Sodium (Colace) 250 mg BID PO Last administered on 04/11/17 08:41; Admin Dose 250 MG; Start 04/10/17 at 21:00 Famotidine (Pepcid) 20 mg DAILY PO Last administered on 04/11/17 08:42; Admin Dose 20 MG; Start 04/11/17 at 09:00 Furosemide (Lasix) 40 mg DAILY PO Last administered on 04/11/17 08:42; Admin Dose 40 MG; Start 04/11/17 at 09:00 Acetaminophen/ Hydrocodone Bitart ([place] (10/325)) 1 tab Q6 PRN PO PAIN; Start 04/10/17 at 16:30 Levothyroxine Sodium (Synthroid) 50 mcg DAILY@06 PO Last administered on 05:11; Admin Dose 50 MCG; Start 04/11/17 at 06:00 Metoprolol Tartrate (Lopressor) 25 mg BID PO Last administered on 04/11/17 08: 42; Admin Dose 25 MG; Start 04/10/17 at 21:00 Potassium Chloride (Micro-K) 8 meq DAILY PO Last administered on 04/11/17 08: 41; Admin Dose 8 MEQ; Start 04/11/17 at 09:00 Propranolol HCl (Inderal) 10 mg BID PO Last administered on 04/11/17 08:43; Admin Dose 10 MG; Start 04/10/17 at 21:00 Sucralfate 1 gm 1 gm QID PO Last administered on 04/11/17 08:41; Admin Dose 1 GM; Start 04/10/17 at 17:00 Sodium Chloride (NS) 1,000 ml @ 60 mls/hr [id number] IV Last administered on 04/10 21:16; Admin Dose 60 MLS/HR; Start 04/10/17 at 16:08 Ondansetron HCl (Zofran Inj) 4 mg Q6H PRN IV NAUSEA AND/OR VOMITING; Start at 16:30 Acetaminophen (Tylenol Tab) 650 mg Q6H PRN PO PAIN LEVEL 1-3 OR FEVER; Start at 16:30 Acetaminophen (Tylenol Supp) 650 mg Q6H PRN [place] PAIN LEVEL 1-3 OR FEVER; Start 04/10/17 at 16:30 Acetaminophen/ Hydrocodone Bitart ([place] (5/325)) 1 tab Q6H PRN PO MODERATE PAIN LEVEL 4-6; Start 04/10/17 at 16:30 Acetaminophen/ Hydrocodone Bitart ([place] (5/325)) 2 tab Q6H PRN PO SEVERE PAIN LEVEL 7-10; Start 04/10/17 at 16:30 Morphine Sulfate (morphine) 2 mg Q4H PRN IV SEVERE PAIN LEVEL 7-10; Start 04/10 at 16:30 Docusate Sodium (Colace) 100 mg Q12H PRN PO CONSTIPATION; Start 04/10/17 at 16: 30 Magnesium Hydroxide (Milk Of Mag) 30 ml DAILY PRN PO CONSTIPATION; Start at 16:30 Bisacodyl (Dulcolax Supp) 10 mg DAILY PRN [place] CONSTIPATION; Start 04/10/17 at 16 :30 Pantoprazole (Protonix Iv) 40 mg DAILY@06 IV Last administered on 04/11/17t 05: 10; Admin Dose 40 MG; Start 04/11/17 at 06:00 Miscellaneous Information 1 ea NOTE XX ; Start 04/10/17 at 17:00 Glucose (Glutose) 15 gm Q15M PRN PO DECREASED GLUCOSE; Start 04/10/17 at 17:00 Glucose (Glutose) 22.5 gm Q15M PRN PO DECREASED GLUCOSE; Start 04/10/17 at 17: 00 Dextrose (D50w Syringe) 25 ml Q15M PRN IV DECREASED GLUCOSE; Start 04/10/17 at 17:00 Dextrose (D50w Syringe) 50 ml Q15M PRN IV DECREASED GLUCOSE; Start 04/10/17 at 17:00 Glucagon (Glucagen) 1 mg Q15M PRN IM DECREASED GLUCOSE; Start 04/10/17 at 17:00 Glucose (Glutose) 15 gm Q15M PRN BUCCAL DECREASED GLUCOSE; Start 04/10/17 at 17 :00 GILL PEREIRA MD April 11, 2017 12:01
[2017-04-11 13:44] LABS: LYMPHOCYTES # 4.3 10^3/ul (0.8-2.9); MONOCYTE # 4.3 10^3/ul (0.3-0.9); NEUTROPHIL # 4.1 10^3/ul (1.6-7.5)
[2017-04-11 13:45] LABS: PLATELET ESTIMATE PLT APPEAR DECREASED
[2017-04-11 14:00] VITALS: BP 118/56; PULSE 74; RESP 17
--- NOTE | 2017-04-11 14:16 | PN ---
Date/Time of Note Date/Time of Note DATE: 04/11/17 TIME: 14:12 Assessment/Plan VTE Prophylaxis VTE Prophylaxis Intervention: SCD's Lines/Catheters IV C[facility]ter Type (from [facility]): Peripheral IV Assessment/Plan Chief Complaint/Hosp Course Impression and plan 1. Pancytopenia secondary to CML/myelodysplastic syndrome. Will transfuse blood products. Patient oncologist aware of patient inpatient status. Monitor CBC 2. 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 Patient with reported chest pain. Continue on O2 as needed. No plan for bronchoscopy due to thrombus cytopenia 3.Cardiopathy. Continue cardiovascular medications. 4. History of hypothyroidism. Continue on Synthroid medication 5. History of diabetes. Continue insulin regimen 6. Essential hypertension. Continue antihypertensives and adjust as needed 7. Hyperlipidemia. Continue on statin medication 8. Reported chest pain. Likely angina. Will monitor for now. resolved. 9. Acute kidney injury. Improving at present. Will monitor Disposition and plan: Still noted to be anemic. Plan for transfusion of PRBC and platelets. Discharge when medically stable Discussed plan of care with Dr. Velasquez Problems: Subjective 24 Hr Interval Summary Free Text/Dictation Still anemic. Reports feeling better Exam/Review of Systems Vital Signs Vitals Vital Signs Date Time Temp Pulse Resp B/P Pulse Ox O2 Delivery O2 Flow Rate FiO2 04/11/17 08:11 97.8 78 18 132/62 90 04/11/17 03:08 3.0 04/10/17 23:43 Room Air Intake and Output 04/10/17 04/10/17 04/11/17 15:00 23:00 07:00 Intake Total 298 ml 1060 ml Balance 298 ml 1060 ml Exam Constitutional: alert, oriented Psych: nl mood/affect Eyes: nl conjunctiva Neck: supple Respiratory: clear to auscultation, normal air movement Cardiovascular: other (regular rate, heart murmur) Gastrointestinal: non-tender, soft Musculoskeletal: nl extremities to inspection Extremities: normal pulses 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, nl mental status, nl speech Results Result Diagram: 04/11/17 1034 04/11/17 0435 Results 24 hrs Laboratory Tests Test 04/10/17 20:25 04/10/17 23:40 04/11/17 04:35 04/11/17 08:17 Bedside Glucose 115 104 Troponin I < 0.012 Sodium Level 138 Potassium Level 3.4 L Chloride Level 106 Carbon Dioxide Level 27 Anion Gap 8 Blood Urea Nitrogen 24 H Creatinine 1.43 H Glucose Level 99 # Hemoglobin A1c 6.6 H Calcium Level 7.8 L Phosphorus Level 4.2 Magnesium Level 1.8 Total Bilirubin 0.5 Direct Bilirubin 0.00 Indirect Bilirubin 0.5 Aspartate Amino Transf (AST/SGOT) 20 Alanine Aminotransferase (ALT/SGPT) 13 Alkaline Phosphatase 62 Total Protein 7.7 Albumin 2.8 L Globulin 4.90 H Albumin/Globulin Ratio 0.57 Triglycerides Level 125 Cholesterol Level 98 L LDL Cholesterol, Calculated 55 HDL Cholesterol 18 L Cholesterol/HDL Ratio 5.4 Thyroid Stimulating Hormone (TSH) 5.150 H Free Thyroxine Index 2.40 Thyroxine (T4) 6.6 Triiodothyronine (T3) Uptake 36.3 Test 04/11/17 10:34 04/11/17 12:42 White Blood Count 12.9 #H Red Blood Count 2.76 #L Hemoglobin 7.8 #L Hematocrit 23.7 #L Mean Corpuscular Volume 85.9 Mean Corpuscular Hemoglobin 28.3 L Mean Corpuscular Hemoglobin Concent 32.9 Red Cell Distribution Width 15.7 H Platelet Count 6 *L Mean Platelet Volume Neutrophils % 32.0 L Lymphocytes % 33.0 Monocytes % 33.0 H Blast Cells % 2.0 H Nucleated Red Blood Cells % 8.0 H Neutrophils # 4.1 Lymphocytes # 4.3 H Monocytes # 4.3 H Blastocytes # 0.3 Platelet Estimate PLT APPEAR DECREASED Bedside Glucose 105 Medications Medications Current Medications Atorvastatin Calcium (Lipitor) 10 mg QHS PO Last administered on 04/10/17 21: 07; Admin Dose 10 MG; Start 04/10/17 at 21:00 Docusate Sodium (Colace) 250 mg BID PO Last administered on 04/11/17 08:41; Admin Dose 250 MG; Start 04/10/17 at 21:00 Famotidine (Pepcid) 20 mg DAILY PO Last administered on 04/11/17 08:42; Admin Dose 20 MG; Start 04/11/17 at 09:00 Furosemide (Lasix) 40 mg DAILY PO Last administered on 04/11/17 08:42; Admin Dose 40 MG; Start 04/11/17 at 09:00 Acetaminophen/ Hydrocodone Bitart ([place] (10/325)) 1 tab Q6 PRN PO PAIN; Start 04/10/17 at 16:30 Levothyroxine Sodium (Synthroid) 50 mcg DAILY@06 PO Last administered on 05:11; Admin Dose 50 MCG; Start 04/11/17 at 06:00 Metoprolol Tartrate (Lopressor) 25 mg BID PO Last administered on 04/11/17 08: 42; Admin Dose 25 MG; Start 04/10/17 at 21:00 Potassium Chloride (Micro-K) 8 meq DAILY PO Last administered on 04/11/17 08: 41; Admin Dose 8 MEQ; Start 04/11/17 at 09:00 Propranolol HCl (Inderal) 10 mg BID PO Last administered on 04/11/17 08:43; Admin Dose 10 MG; Start 04/10/17 at 21:00 Sucralfate 1 gm 1 gm QID PO Last administered on 04/11/17 13:07; Admin Dose 1 GM; Start 04/10/17 at 17:00 Sodium Chloride (NS) 1,000 ml @ 60 mls/hr [id number] IV Last administered on 04/10 21:16; Admin Dose 60 MLS/HR; Start 04/10/17 at 16:08 Ondansetron HCl (Zofran Inj) 4 mg Q6H PRN IV NAUSEA AND/OR VOMITING; Start at 16:30 Acetaminophen (Tylenol Tab) 650 mg Q6H PRN PO PAIN LEVEL 1-3 OR FEVER; Start at 16:30 Acetaminophen (Tylenol Supp) 650 mg Q6H PRN [place] PAIN LEVEL 1-3 OR FEVER; Start 04/10/17 at 16:30 Acetaminophen/ Hydrocodone Bitart ([place] (5/325)) 1 tab Q6H PRN PO MODERATE PAIN LEVEL 4-6; Start 04/10/17 at 16:30 Acetaminophen/ Hydrocodone Bitart ([place] (5/325)) 2 tab Q6H PRN PO SEVERE PAIN LEVEL 7-10; Start 04/10/17 at 16:30 Morphine Sulfate (morphine) 2 mg Q4H PRN IV SEVERE PAIN LEVEL 7-10; Start 04/10 at 16:30 Docusate Sodium (Colace) 100 mg Q12H PRN PO CONSTIPATION; Start 04/10/17 at 16: 30 Magnesium Hydroxide (Milk Of Mag) 30 ml DAILY PRN PO CONSTIPATION; Start at 16:30 Bisacodyl (Dulcolax Supp) 10 mg DAILY PRN [place] CONSTIPATION; Start 04/10/17 at 16 :30 Miscellaneous Information 1 ea NOTE XX ; Start 04/10/17 at 17:00 Glucose (Glutose) 15 gm Q15M PRN PO DECREASED GLUCOSE; Start 04/10/17 at 17:00 Glucose (Glutose) 22.5 gm Q15M PRN PO DECREASED GLUCOSE; Start 04/10/17 at 17: 00 Dextrose (D50w Syringe) 25 ml Q15M PRN IV DECREASED GLUCOSE; Start 04/10/17 at 17:00 Dextrose (D50w Syringe) 50 ml Q15M PRN IV DECREASED GLUCOSE; Start 04/10/17 at 17:00 Glucagon (Glucagen) 1 mg Q15M PRN IM DECREASED GLUCOSE; Start 04/10/17 at 17:00 Glucose (Glutose) 15 gm Q15M PRN BUCCAL DECREASED GLUCOSE; Start 04/10/17 at 17 :00 Pantoprazole (Protonix Tab) 40 mg DAILY@06 PO ; Start 04/12/17 at 06:00 CHARLY LAWRENCE April 11, 2017 14:16
[2017-04-11 19:20] VITALS: BP 129/66; RESP 18
[2017-04-11] MEDS: ATORVASTATIN 10 MG TAB PO SCH (20:50)
[2017-04-12] MEDS: SOD CHLORIDE 0.9% 1,000 ML IV SCH ×3 (01:28→18:08)
[2017-04-12] MEDS: LEVOTHYROXINE 50 MCG TAB PO SCH (05:41)
[2017-04-12] MEDS: PANTOPRAZOLE (EC) 40 MG TAB PO SCH (05:41)
[2017-04-12] MEDS: INSULIN ASPART [NOVOLOG] 3 ML PEN SC SCH ×4 (07:50→20:32)
[2017-04-12 08:34] VITALS: BP 134/71; RESP 18
[2017-04-12] MEDS: FUROSEMIDE 40 MG TAB PO SCH (08:54)
[2017-04-12] MEDS: FAMOTIDINE 20 MG TAB PO SCH (08:54)
[2017-04-12] MEDS: metFORMIN 500 MG TAB PO SCH ×2 (08:54→17:51)
[2017-04-12] MEDS: METOPROLOL 25 MG TAB PO SCH ×2 (08:55→20:29)
[2017-04-12] MEDS: POTASSIUM CHLORIDE (SR) 8 MEQ CAP PO SCH (08:55)
[2017-04-12] MEDS: PROPRANOLOL 10 MG TAB PO SCH ×2 (08:55→20:29)
[2017-04-12] MEDS: DOCUSATE SODIUM 250 MG CAP PO SCH ×2 (08:55→20:26)
[2017-04-12] MEDS: SUCRALFATE 1 GM TAB PO SCH ×4 (09:17→20:26)
--- NOTE | 2017-04-12 12:00 | PDOCDIS ---
Discharge Instructions DIAGNOSIS Discharge Diagnosis: 1. acute anemia secondary to MDS/CML 2.possible right bronchus mass HOME CARE INSTRUCTIONS: Special Diet: regular FOLLOW UP/APPOINTMENTS Appointments 1. Follow up with Dr. Pryor 04/14/17 2. Follow up with your primary care provider in 1-2 weeks CHARLY LAWRENCE April 12, 2017 12:00
[2017-04-12 15:13] LABS: ADD SCAN DIFF NO
--- NOTE | 2017-04-12 15:14 | PN ---
Date/Time of Note Date/Time of Note DATE: 04/12/17 TIME: 15:10 Assessment/Plan VTE Prophylaxis VTE Prophylaxis Intervention: SCD's Lines/Catheters [facility] IV Assessment/Plan Chief Complaint/Hosp Course Impression and plan 1. Pancytopenia secondary to CML/myelodysplastic syndrome. Will transfuse blood products. Patient oncologist aware of patient inpatient status. Monitor CBC 2. 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 Patient with reported chest pain. Continue on O2 as needed. No plan for bronchoscopy due to thrombocytopenia 3.Cardiomyopathy. Continue cardiovascular medications. 4. History of hypothyroidism. Continue on Synthroid medication 5. History of diabetes. Continue insulin regimen 6. Essential hypertension. Continue antihypertensives and adjust as needed 7. Hyperlipidemia. Continue on statin medication 8. Reported chest pain. Likely angina. Will monitor for now. resolved. 9. Acute kidney injury. Improving at present. Will monitor Disposition and plan: Patient did not receive his second unit of platelets yesterday. Plan for transfusion today. Awaiting CBC follow-up. Discharge when medically Discussed plan of care with Dr. Velasquez Problems: Subjective 24 Hr Interval Summary Free Text/Dictation comfortable. no s/s of distress Exam/Review of Systems Vital Signs Vitals Vital Signs Date Time Temp Pulse Resp B/P Pulse Ox O2 Delivery O2 Flow Rate FiO2 04/12/17 08:34 98.0 73 18 134/71 90 04/12/17 00:06 3.0 04/11/17 14:00 Room Air Intake and Output 04/11/17 04/11/17 04/12/17 15:00 23:00 07:00 Intake Total 2247 ml 1200 ml Balance 2247 ml 1200 ml Exam Constitutional: alert, oriented Psych: nl mood/affect Eyes: nl conjunctiva Neck: supple Respiratory: clear to auscultation, normal air movement Cardiovascular: other (regular rate, heart murmur) Gastrointestinal: non-tender, soft Musculoskeletal: nl extremities to inspection Extremities: normal pulses 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, nl mental status, nl speech Results Result Diagram: 04/11/17 1034 04/11/17 0435 Results 24 hrs Laboratory Tests Test 04/11/17 17:41 04/11/17 20:54 04/12/17 08:12 04/12/17 12:48 Bedside Glucose 128 125 101 101 Medications Medications Current Medications Atorvastatin Calcium (Lipitor) 10 mg QHS PO Last administered on 04/11/17 20: 50; Admin Dose 10 MG; Start 04/10/17 at 21:00 Docusate Sodium (Colace) 250 mg BID PO Last administered on 04/12/17 08:55; Admin Dose 250 MG; Start 04/10/17 at 21:00 Famotidine (Pepcid) 20 mg DAILY PO Last administered on 04/12/17 08:54; Admin Dose 20 MG; Start 04/11/17 at 09:00 Furosemide (Lasix) 40 mg DAILY PO Last administered on 04/12/17 08:54; Admin Dose 40 MG; Start 04/11/17 at 09:00 Acetaminophen/ Hydrocodone Bitart ([place] (10/325)) 1 tab Q6 PRN PO PAIN; Start 04/10/17 at 16:30 Levothyroxine Sodium (Synthroid) 50 mcg DAILY@06 PO Last administered on 05:41; Admin Dose 50 MCG; Start 04/11/17 at 06:00 Metoprolol Tartrate (Lopressor) 25 mg BID PO Last administered on 04/12/17 08: 55; Admin Dose 25 MG; Start 04/10/17 at 21:00 Potassium Chloride (Micro-K) 8 meq DAILY PO Last administered on 04/12/17 08: 55; Admin Dose 8 MEQ; Start 04/11/17 at 09:00 Propranolol HCl (Inderal) 10 mg BID PO Last administered on 04/12/17 08:55; Admin Dose 10 MG; Start 04/10/17 at 21:00 Sucralfate 1 gm 1 gm QID PO Last administered on 04/12/17 12:53; Admin Dose 1 GM; Start 04/10/17 at 17:00 Sodium Chloride (NS) 1,000 ml @ 60 mls/hr [id number] IV Last administered on 04/12 05:41; Admin Dose 60 MLS/HR; Start 04/10/17 at 16:08 Ondansetron HCl (Zofran Inj) 4 mg Q6H PRN IV NAUSEA AND/OR VOMITING; Start at 16:30 Acetaminophen (Tylenol Tab) 650 mg Q6H PRN PO PAIN LEVEL 1-3 OR FEVER; Start at 16:30 Acetaminophen (Tylenol Supp) 650 mg Q6H PRN [place] PAIN LEVEL 1-3 OR FEVER; Start 04/10/17 at 16:30 Acetaminophen/ Hydrocodone Bitart ([place] (5/325)) 1 tab Q6H PRN PO MODERATE PAIN LEVEL 4-6; Start 04/10/17 at 16:30 Acetaminophen/ Hydrocodone Bitart ([place] (5/325)) 2 tab Q6H PRN PO SEVERE PAIN LEVEL 7-10; Start 04/10/17 at 16:30 Morphine Sulfate (morphine) 2 mg Q4H PRN IV SEVERE PAIN LEVEL 7-10; Start 04/10 at 16:30 Docusate Sodium (Colace) 100 mg Q12H PRN PO CONSTIPATION; Start 04/10/17 at 16: 30 Magnesium Hydroxide (Milk Of Mag) 30 ml DAILY PRN PO CONSTIPATION; Start at 16:30 Bisacodyl (Dulcolax Supp) 10 mg DAILY PRN [place] CONSTIPATION; Start 04/10/17 at 16 :30 Miscellaneous Information 1 ea NOTE XX ; Start 04/10/17 at 17:00 Glucose (Glutose) 15 gm Q15M PRN PO DECREASED GLUCOSE; Start 04/10/17 at 17:00 Glucose (Glutose) 22.5 gm Q15M PRN PO DECREASED GLUCOSE; Start 04/10/17 at 17: 00 Dextrose (D50w Syringe) 25 ml Q15M PRN IV DECREASED GLUCOSE; Start 04/10/17 at 17:00 Dextrose (D50w Syringe) 50 ml Q15M PRN IV DECREASED GLUCOSE; Start 04/10/17 at 17:00 Glucagon (Glucagen) 1 mg Q15M PRN IM DECREASED GLUCOSE; Start 04/10/17 at 17:00 Glucose (Glutose) 15 gm Q15M PRN BUCCAL DECREASED GLUCOSE; Start 04/10/17 at 17 :00 Pantoprazole (Protonix Tab) 40 mg DAILY@06 PO Last administered on 04/12/17t 05 :41; Admin Dose 40 MG; Start 04/12/17 at 06:00 CHARLY LAWRENCE April 12, 2017 15:14
[2017-04-12 15:16] LABS: ABNORMAL IP MESSAGE 1; HEMATOCRIT 23.5 % (42.0-52.0); HEMOGLOBIN 7.7 g/dl (14.0-18.0); MEAN CORPUSCULAR HEMOGLOBIN 27.9 pg (29.0-33.0); MEAN CORPUSCULAR HGB CONC 32.8 g/dl (32.0-37.0); MEAN CORPUSCULAR VOLUME 85.1 fl (82.0-101.0); MEAN PLATELET VOLUME 10.5 fl (7.4-10.4); RED BLOOD COUNT 2.76 10^6/ul (4.70-6.10); RED CELL DISTRIBUTION WIDTH 15.4 % (11.5-14.5); WHITE BLOOD COUNT 9.5 10^3/ul (4.8-10.8)
[2017-04-12 15:22] LABS: PLATELET COUNT 27 10^3/UL (140-415)
[2017-04-12 15:31] LABS: POTASSIUM 3.8 mmol/L (3.5-5.1)
[2017-04-12 15:33] LABS: CREATININE 1.45 mg/dl (0.61-1.24)
[2017-04-12 15:34] LABS: CALCIUM 8.3 mg/dl (8.4-10.2)
--- NOTE | 2017-04-12 16:13 | CONS ---
Date/Time of Note Date/Time of Note DATE: 04/12/17 TIME: 16:11 Consult Date/Type/Reason Admit Date/Time April 10, 2017 at 13:38 Initial Consult Date 04/11/17 Type of Consultation: pulm Ordering Provider: DUNIA BECKWITH Subjective no events. s/p bm bx Objective Vital Signs Date Time Temp Pulse Resp B/P Pulse Ox O2 Delivery O2 Flow Rate FiO2 04/12/17 08:34 98.0 73 18 134/71 90 04/12/17 00:06 3.0 04/11/17 14:00 Room Air Intake and Output 04/11/17 04/11/17 04/12/17 15:00 23:00 07:00 Intake Total 2247 ml 1200 ml Balance 2247 ml 1200 ml Exam HEENT: Neck supple; no JVD; no LAD CVS: RRR, S1 and S2 CHEST: Clear ABD: Soft, NT, + BS EXT: No c/c/e Results/Medications Result Diagram: 04/12/17 1455 04/12/17 1455 Results 24 hrs Laboratory Tests Test 04/11/17 17:41 04/11/17 20:54 04/12/17 08:12 04/12/17 12:48 Bedside Glucose 128 125 101 101 Test 04/12/17 14:55 White Blood Count 9.5 # Red Blood Count 2.76 L Hemoglobin 7.7 L Hematocrit 23.5 L Mean Corpuscular Volume 85.1 Mean Corpuscular Hemoglobin 27.9 L Mean Corpuscular Hemoglobin Concent 32.8 Red Cell Distribution Width 15.4 H Platelet Count 27 #*L Mean Platelet Volume 10.5 H Neutrophils % Lymphocytes % Monocytes % Neutrophils # Lymphocytes # Monocytes # Sodium Level 138 Potassium Level 3.8 Chloride Level 107 Carbon Dioxide Level 26 Anion Gap 9 Blood Urea Nitrogen 27 H Creatinine 1.45 H Glucose Level 98 Calcium Level 8.3 L Medications Current Medications Atorvastatin Calcium (Lipitor) 10 mg QHS PO Last administered on 04/11/17 20: 50; Admin Dose 10 MG; Start 04/10/17 at 21:00 Docusate Sodium (Colace) 250 mg BID PO Last administered on 04/12/17 08:55; Admin Dose 250 MG; Start 04/10/17 at 21:00 Furosemide (Lasix) 40 mg DAILY PO Last administered on 04/12/17 08:54; Admin Dose 40 MG; Start 04/11/17 at 09:00 Acetaminophen/ Hydrocodone Bitart ([place] (10/325)) 1 tab Q6 PRN PO PAIN; Start 04/10/17 at 16:30 Levothyroxine Sodium (Synthroid) 50 mcg DAILY@06 PO Last administered on 05:41; Admin Dose 50 MCG; Start 04/11/17 at 06:00 Metoprolol Tartrate (Lopressor) 25 mg BID PO Last administered on 04/12/17 08: 55; Admin Dose 25 MG; Start 04/10/17 at 21:00 Potassium Chloride (Micro-K) 8 meq DAILY PO Last administered on 04/12/17 08: 55; Admin Dose 8 MEQ; Start 04/11/17 at 09:00 Propranolol HCl (Inderal) 10 mg BID PO Last administered on 04/12/17 08:55; Admin Dose 10 MG; Start 04/10/17 at 21:00 Sucralfate 1 gm 1 gm QID PO Last administered on 04/12/17 12:53; Admin Dose 1 GM; Start 04/10/17 at 17:00 Sodium Chloride (NS) 1,000 ml @ 60 mls/hr [id number] IV Last administered on 04/12 05:41; Admin Dose 60 MLS/HR; Start 04/10/17 at 16:08 Ondansetron HCl (Zofran Inj) 4 mg Q6H PRN IV NAUSEA AND/OR VOMITING; Start at 16:30 Acetaminophen (Tylenol Tab) 650 mg Q6H PRN PO PAIN LEVEL 1-3 OR FEVER; Start at 16:30 Acetaminophen (Tylenol Supp) 650 mg Q6H PRN [place] PAIN LEVEL 1-3 OR FEVER; Start 04/10/17 at 16:30 Acetaminophen/ Hydrocodone Bitart ([place] (5/325)) 1 tab Q6H PRN PO MODERATE PAIN LEVEL 4-6; Start 04/10/17 at 16:30 Acetaminophen/ Hydrocodone Bitart ([place] (5/325)) 2 tab Q6H PRN PO SEVERE PAIN LEVEL 7-10; Start 04/10/17 at 16:30 Morphine Sulfate (morphine) 2 mg Q4H PRN IV SEVERE PAIN LEVEL 7-10; Start 04/10 at 16:30 Docusate Sodium (Colace) 100 mg Q12H PRN PO CONSTIPATION; Start 04/10/17 at 16: 30 Magnesium Hydroxide (Milk Of Mag) 30 ml DAILY PRN PO CONSTIPATION; Start at 16:30 Bisacodyl (Dulcolax Supp) 10 mg DAILY PRN [place] CONSTIPATION; Start 04/10/17 at 16 :30 Miscellaneous Information 1 ea NOTE XX ; Start 04/10/17 at 17:00 Glucose (Glutose) 15 gm Q15M PRN PO DECREASED GLUCOSE; Start 04/10/17 at 17:00 Glucose (Glutose) 22.5 gm Q15M PRN PO DECREASED GLUCOSE; Start 04/10/17 at 17: 00 Dextrose (D50w Syringe) 25 ml Q15M PRN IV DECREASED GLUCOSE; Start 04/10/17 at 17:00 Dextrose (D50w Syringe) 50 ml Q15M PRN IV DECREASED GLUCOSE; Start 04/10/17 at 17:00 Glucagon (Glucagen) 1 mg Q15M PRN IM DECREASED GLUCOSE; Start 04/10/17 at 17:00 Glucose (Glutose) 15 gm Q15M PRN BUCCAL DECREASED GLUCOSE; Start 04/10/17 at 17 :00 Pantoprazole (Protonix Tab) 40 mg DAILY@06 PO Last administered on 04/12/17t 05 :41; Admin Dose 40 MG; Start 04/12/17 at 06:00 Assessment/Plan Additional Assessment/Plan IMP: 1. Pancytopenia 2. CML/MDS 3. Azotemia 4. Anemia 5 Mild hypoxemia RECS: 1. Ambulate; follow SpO2 2. Home oxygen NILO Rasheed MD April 12, 2017 16:13
[2017-04-12 16:56] LABS: LYMPHOCYTES # 1.8 10^3/ul (0.8-2.9); MONOCYTE # 3.9 10^3/ul (0.3-0.9); MYELOCYTES # 0.4; NEUTROPHIL # 3.1 10^3/ul (1.6-7.5)
[2017-04-12 16:57] LABS: PLATELET ESTIMATE PLT APPEAR DECREASED; POLYCHROMASIA OCCASIONAL
--- NOTE | 2017-04-12 20:12 | CONS ---
Date/Time of Note Date/Time of Note DATE: 04/12/17 TIME: 20:10 Assessment/Plan Assessment/Plan Additional Assessment/Plan 1. Acute kidney injury secondary to acute tubular necrosis and severe prerenal azotemia. 2. History of CML/myelodysplastic syndrome, who presented with pancytopenia. Plan for PRBC transfusion. 3. Hypertension. 4. Diabetes mellitus. 5. Hyperlipidemia. 6. Hypothyroidism. PLAN: Cr improved to 1.45 with IVF hydration s/p Transfusion , now Hb 7.7 will follow up BP stable Consultation Date/Type/Reason Admit Date/Time April 10, 2017 at 13:38 Initial Consult Date 04/11/17 Type of Consultation: NEPHROLOGY Referring Provider: DUNIA BECKWITH 24 HR Interval Summary Free Text/Dictation tolerated PO diet well, BP stable,a febrile Exam/Review of Systems Vital Signs Vitals Vital Signs Date Time Temp Pulse Resp B/P Pulse Ox O2 Delivery O2 Flow Rate FiO2 04/12/17 20:07 96 21 04/12/17 16:46 3.0 04/12/17 08:34 98.0 73 18 134/71 04/11/17 14:00 Room Air Intake and Output 04/11/17 04/11/17 04/12/17 15:00 23:00 07:00 Intake Total 2247 ml 1200 ml Balance 2247 ml 1200 ml Exam HEENT: Neck supple; no JVD; no LAD CVS: RRR, S1 and S2 CHEST: Clear ABD: Soft, NT, + BS EXT: No c/c/e Results Result Diagram: 04/12/17 1455 04/12/17 1455 Results 24 hrs Laboratory Tests Test 04/11/17 20:54 04/12/17 08:12 04/12/17 12:48 04/12/17 14:55 Bedside Glucose 125 101 101 White Blood Count 9.5 # Red Blood Count 2.76 L Hemoglobin 7.7 L Hematocrit 23.5 L Mean Corpuscular Volume 85.1 Mean Corpuscular Hemoglobin 27.9 L Mean Corpuscular Hemoglobin Concent 32.8 Red Cell Distribution Width 15.4 H Platelet Count 27 #*L Mean Platelet Volume 10.5 H Neutrophils % 33.0 L Lymphocytes % 19.0 Monocytes % 41.0 H Myelocytes % 4.0 H Blast Cells % 3.0 H Nucleated Red Blood Cells % 3.0 H Neutrophils # 3.1 Lymphocytes # 1.8 Monocytes # 3.9 H Myelocytes # 0.4 Blastocytes # 0.3 Platelet Estimate PLT APPEAR DECREASED Polychromasia OCCASIONAL Macrocytosis 1+ Sodium Level 138 Potassium Level 3.8 Chloride Level 107 Carbon Dioxide Level 26 Anion Gap 9 Blood Urea Nitrogen 27 H Creatinine 1.45 H Glucose Level 98 Calcium Level 8.3 L Test 04/12/17 17:47 Bedside Glucose 97 Medications Medications Current Medications Atorvastatin Calcium (Lipitor) 10 mg QHS PO Last administered on 04/11/17 20: 50; Admin Dose 10 MG; Start 04/10/17 at 21:00 Docusate Sodium (Colace) 250 mg BID PO Last administered on 04/12/17 08:55; Admin Dose 250 MG; Start 04/10/17 at 21:00 Furosemide (Lasix) 40 mg DAILY PO Last administered on 04/12/17 08:54; Admin Dose 40 MG; Start 04/11/17 at 09:00 Acetaminophen/ Hydrocodone Bitart ([place] (10/325)) 1 tab Q6 PRN PO PAIN; Start 04/10/17 at 16:30 Levothyroxine Sodium (Synthroid) 50 mcg DAILY@06 PO Last administered on 05:41; Admin Dose 50 MCG; Start 04/11/17 at 06:00 Metoprolol Tartrate (Lopressor) 25 mg BID PO Last administered on 04/12/17 08: 55; Admin Dose 25 MG; Start 04/10/17 at 21:00 Potassium Chloride (Micro-K) 8 meq DAILY PO Last administered on 04/12/17 08: 55; Admin Dose 8 MEQ; Start 04/11/17 at 09:00 Propranolol HCl (Inderal) 10 mg BID PO Last administered on 04/12/17 08:55; Admin Dose 10 MG; Start 04/10/17 at 21:00 Sucralfate 1 gm 1 gm QID PO Last administered on 04/12/17 17:51; Admin Dose 1 GM; Start 04/10/17 at 17:00 Sodium Chloride (NS) 1,000 ml @ 60 mls/hr [id number] IV Last administered on 04/12 05:41; Admin Dose 60 MLS/HR; Start 5/25/17 at 16:08 Ondansetron HCl (Zofran Inj) 4 mg Q6H PRN IV NAUSEA AND/OR VOMITING; Start at 16:30 Acetaminophen (Tylenol Tab) 650 mg Q6H PRN PO PAIN LEVEL 1-3 OR FEVER; Start at 16:30 Acetaminophen (Tylenol Supp) 650 mg Q6H PRN [place] PAIN LEVEL 1-3 OR FEVER; Start 04/10/17 at 16:30 Acetaminophen/ Hydrocodone Bitart ([place] (5/325)) 1 tab Q6H PRN PO MODERATE PAIN LEVEL 4-6; Start 04/10/17 at 16:30 Acetaminophen/ Hydrocodone Bitart ([place] (5/325)) 2 tab Q6H PRN PO SEVERE PAIN LEVEL 7-10; Start 04/10/17 at 16:30 Morphine Sulfate (morphine) 2 mg Q4H PRN IV SEVERE PAIN LEVEL 7-10; Start 04/10 at 16:30 Docusate Sodium (Colace) 100 mg Q12H PRN PO CONSTIPATION; Start 04/10/17 at 16: 30 Magnesium Hydroxide (Milk Of Mag) 30 ml DAILY PRN PO CONSTIPATION; Start at 16:30 Bisacodyl (Dulcolax Supp) 10 mg DAILY PRN [place] CONSTIPATION; Start 04/10/17 at 16 :30 Miscellaneous Information 1 ea NOTE XX ; Start 04/10/17 at 17:00 Glucose (Glutose) 15 gm Q15M PRN PO DECREASED GLUCOSE; Start 04/10/17 at 17:00 Glucose (Glutose) 22.5 gm Q15M PRN PO DECREASED GLUCOSE; Start 04/10/17 at 17: 00 Dextrose (D50w Syringe) 25 ml Q15M PRN IV DECREASED GLUCOSE; Start 04/10/17 at 17:00 Dextrose (D50w Syringe) 50 ml Q15M PRN IV DECREASED GLUCOSE; Start 04/10/17 at 17:00 Glucagon (Glucagen) 1 mg Q15M PRN IM DECREASED GLUCOSE; Start 04/10/17 at 17:00 Glucose (Glutose) 15 gm Q15M PRN BUCCAL DECREASED GLUCOSE; Start 04/10/17 at 17 :00 Pantoprazole (Protonix Tab) 40 mg DAILY@06 PO Last administered on 04/12/17t 05 :41; Admin Dose 40 MG; Start 04/12/17 at 06:00 GILL PEREIRA MD April 12, 2017 20:12
[2017-04-12 20:17] VITALS: BP 148/72; RESP 18
[2017-04-12] MEDS: ATORVASTATIN 10 MG TAB PO SCH (20:26)
[2017-04-13] MEDS: SOD CHLORIDE 0.9% 1,000 ML IV SCH ×2 (02:28→17:57)
[2017-04-13 05:39] LABS: ADD SCAN DIFF NO
[2017-04-13 05:52] LABS: ABNORMAL IP MESSAGE 1; HEMATOCRIT 21.3 % (42.0-52.0); HEMOGLOBIN 7.2 g/dl (14.0-18.0); MEAN CORPUSCULAR HEMOGLOBIN 28.6 pg (29.0-33.0); MEAN CORPUSCULAR HGB CONC 33.8 g/dl (32.0-37.0); MEAN CORPUSCULAR VOLUME 84.5 fl (82.0-101.0); MEAN PLATELET VOLUME 12.7 fl (7.4-10.4); RED BLOOD COUNT 2.52 10^6/ul (4.70-6.10); WHITE BLOOD COUNT 6.7 10^3/ul (4.8-10.8)
[2017-04-13] MEDS: LEVOTHYROXINE 50 MCG TAB PO SCH (05:58)
[2017-04-13] MEDS: PANTOPRAZOLE (EC) 40 MG TAB PO SCH (05:58)
[2017-04-13 06:03] LABS: PLATELET COUNT 20 10^3/UL (140-415)
[2017-04-13 06:11] LABS: POTASSIUM 3.5 mmol/L (3.5-5.1)
[2017-04-13 06:13] LABS: CREATININE 1.42 mg/dl (0.61-1.24)
[2017-04-13 06:14] LABS: CALCIUM 8.2 mg/dl (8.4-10.2)
[2017-04-13 07:44] VITALS: BP 144/73; RESP 18
[2017-04-13] MEDS: INSULIN ASPART [NOVOLOG] 3 ML PEN SC SCH ×4 (08:30→20:33)
[2017-04-13] MEDS: DOCUSATE SODIUM 250 MG CAP PO SCH ×2 (08:57→20:29)
[2017-04-13] MEDS: SUCRALFATE 1 GM TAB PO SCH ×4 (08:57→20:29)
[2017-04-13] MEDS: POTASSIUM CHLORIDE (SR) 8 MEQ CAP PO SCH (08:58)
[2017-04-13] MEDS: FUROSEMIDE 40 MG TAB PO SCH (08:58)
[2017-04-13] MEDS: PROPRANOLOL 10 MG TAB PO SCH ×2 (08:58→20:30)
[2017-04-13] MEDS: METOPROLOL 25 MG TAB PO SCH ×2 (08:59→20:29)
[2017-04-13] MEDS: metFORMIN 500 MG TAB PO SCH ×2 (09:02→17:57)
[2017-04-13 11:18] LABS: BASOPHIL # 0.3 10^3/ul (0.0-0.1); EOSINOPHILS # 0.1 10^3/ul (0.0-0.5); LYMPHOCYTES # 3.1 10^3/ul (0.8-2.9); MONOCYTE # 0.7 10^3/ul (0.3-0.9); MYELOCYTES # 0.4; NEUTROPHIL # 1.7 10^3/ul (1.6-7.5)
--- NOTE | 2017-04-13 11:56 | CONS ---
Date/Time of Note Date/Time of Note DATE: 04/13/17 TIME: 11:53 Consult Date/Type/Reason Admit Date/Time April 10, 2017 at 13:38 Initial Consult Date 04/11/17 Type of Consultation: NEPHROLOGY Ordering Provider: DUNIA BECKWITH Subjective Alert, resting in bed, seems comfortable, denies any chest pain, shortness of breath,H/H is low today- pe primary/outpatient Election Assistant dw staff Objective Vital Signs Date Time Temp Pulse Resp B/P Pulse Ox O2 Delivery O2 Flow Rate FiO2 04/13/17 07:44 98.5 79 18 144/73 99 04/13/17 01:59 21 04/12/17 16:46 3.0 04/11/17 14:00 Room Air Intake and Output 04/12/17 04/12/17 04/13/17 15:00 23:00 07:00 Intake Total 1750 ml 600 ml Balance 1750 ml 600 ml Exam GENERAL: nad, alert/awake, oriented x3. HEENT: Neck supple; no JVD; no LAD CVS: RRR, S1 and S2 CHEST: CTAB, normal tristan movements bilaterally ABD: Soft, NT, + BS EXT: No c/c/e bilaterally NEURO: A/A/O X 3 Results/Medications Result Diagram: 04/13/17 0420 04/13/17 0420 Results 24 hrs Laboratory Tests Test 04/12/17 12:48 04/12/17 14:55 04/12/17 17:47 04/12/17 20:27 Bedside Glucose 101 97 181 White Blood Count 9.5 # Red Blood Count 2.76 L Hemoglobin 7.7 L Hematocrit 23.5 L Mean Corpuscular Volume 85.1 Mean Corpuscular Hemoglobin 27.9 L Mean Corpuscular Hemoglobin Concent 32.8 Red Cell Distribution Width 15.4 H Platelet Count 27 #*L Mean Platelet Volume 10.5 H Neutrophils % 33.0 L Lymphocytes % 19.0 Monocytes % 41.0 H Myelocytes % 4.0 H Blast Cells % 3.0 H Nucleated Red Blood Cells % 3.0 H Neutrophils # 3.1 Lymphocytes # 1.8 Monocytes # 3.9 H Myelocytes # 0.4 Blastocytes # 0.3 Platelet Estimate PLT APPEAR DECREASED Polychromasia OCCASIONAL Macrocytosis 1+ Sodium Level 138 Potassium Level 3.8 Chloride Level 107 Carbon Dioxide Level 26 Anion Gap 9 Blood Urea Nitrogen 27 H Creatinine 1.45 H Glucose Level 98 Calcium Level 8.3 L Test 04/13/17 04:20 04/13/17 08:53 White Blood Count 6.7 # Red Blood Count 2.52 L Hemoglobin 7.2 L Hematocrit 21.3 L Mean Corpuscular Volume 84.5 Mean Corpuscular Hemoglobin 28.6 L Mean Corpuscular Hemoglobin Concent 33.8 Red Cell Distribution Width 15.0 H Platelet Count 20 #*L Mean Platelet Volume 12.7 #H Neutrophils % 26.0 L Lymphocytes % 46.0 Monocytes % 10.0 Eosinophils % 1.0 Basophils % 5.0 H Myelocytes % 6.0 H Promyelocytes % 1.0 H Blast Cells % 5.0 H Neutrophils # 1.7 Lymphocytes # 3.1 H Monocytes # 0.7 Eosinophils # 0.1 Basophils # 0.3 H Myelocytes # 0.4 Promyelocytes # 0.1 Blastocytes # 0.3 Sodium Level 140 Potassium Level 3.5 Chloride Level 109 Carbon Dioxide Level 26 Anion Gap 9 Blood Urea Nitrogen 28 H Creatinine 1.42 H Glucose Level 99 Calcium Level 8.2 L Bedside Glucose 108 Medications Current Medications Atorvastatin Calcium (Lipitor) 10 mg QHS PO Last administered on 04/12/17 20: 26; Admin Dose 10 MG; Start 04/10/17 at 21:00 Docusate Sodium (Colace) 250 mg BID PO Last administered on 04/13/17 08:57; Admin Dose 250 MG; Start 04/10/17 at 21:00 Furosemide (Lasix) 40 mg DAILY PO Last administered on 04/13/17 08:58; Admin Dose 40 MG; Start 04/11/17 at 09:00 Acetaminophen/ Hydrocodone Bitart ([place] (10/325)) 1 tab Q6 PRN PO PAIN; Start 04/10/17 at 16:30 Levothyroxine Sodium (Synthroid) 50 mcg DAILY@06 PO Last administered on 05:58; Admin Dose 50 MCG; Start 04/11/17 at 06:00 Metoprolol Tartrate (Lopressor) 25 mg BID PO Last administered on 04/13/17 08: 59; Admin Dose 25 MG; Start 04/10/17 at 21:00 Potassium Chloride (Micro-K) 8 meq DAILY PO Last administered on 04/13/17 08: 58; Admin Dose 8 MEQ; Start 04/11/17 at 09:00 Propranolol HCl (Inderal) 10 mg BID PO Last administered on 04/13/17 08:58; Admin Dose 10 MG; Start 04/10/17 at 21:00 Sucralfate 1 gm 1 gm QID PO Last administered on 04/13/17 08:57; Admin Dose 1 GM; Start 04/10/17 at 17:00 Sodium Chloride (NS) 1,000 ml @ 60 mls/hr [id number] IV Last administered on 04/13 02:28; Admin Dose 60 MLS/HR; Start 04/10/17 at 16:08 Ondansetron HCl (Zofran Inj) 4 mg Q6H PRN IV NAUSEA AND/OR VOMITING; Start at 16:30 Acetaminophen (Tylenol Tab) 650 mg Q6H PRN PO PAIN LEVEL 1-3 OR FEVER; Start at 16:30 Acetaminophen (Tylenol Supp) 650 mg Q6H PRN [place] PAIN LEVEL 1-3 OR FEVER; Start 04/10/17 at 16:30 Acetaminophen/ Hydrocodone Bitart ([place] (5/325)) 1 tab Q6H PRN PO MODERATE PAIN LEVEL 4-6; Start 04/10/17 at 16:30 Acetaminophen/ Hydrocodone Bitart ([place] (5/325)) 2 tab Q6H PRN PO SEVERE PAIN LEVEL 7-10; Start 04/10/17 at 16:30 Morphine Sulfate (morphine) 2 mg Q4H PRN IV SEVERE PAIN LEVEL 7-10; Start 04/10 at 16:30 Docusate Sodium (Colace) 100 mg Q12H PRN PO CONSTIPATION; Start 04/10/17 at 16: 30 Magnesium Hydroxide (Milk Of Mag) 30 ml DAILY PRN PO CONSTIPATION; Start at 16:30 Bisacodyl (Dulcolax Supp) 10 mg DAILY PRN [place] CONSTIPATION; Start 04/10/17 at 16 :30 Miscellaneous Information 1 ea NOTE XX ; Start 04/10/17 at 17:00 Glucose (Glutose) 15 gm Q15M PRN PO DECREASED GLUCOSE; Start 04/10/17 at 17:00 Glucose (Glutose) 22.5 gm Q15M PRN PO DECREASED GLUCOSE; Start 04/10/17 at 17: 00 Dextrose (D50w Syringe) 25 ml Q15M PRN IV DECREASED GLUCOSE; Start 04/10/17 at 17:00 Dextrose (D50w Syringe) 50 ml Q15M PRN IV DECREASED GLUCOSE; Start 04/10/17 at 17:00 Glucagon (Glucagen) 1 mg Q15M PRN IM DECREASED GLUCOSE; Start 04/10/17 at 17:00 Glucose (Glutose) 15 gm Q15M PRN BUCCAL DECREASED GLUCOSE; Start 04/10/17 at 17 :00 Pantoprazole (Protonix Tab) 40 mg DAILY@06 PO Last administered on 04/13/17t 05 :58; Admin Dose 40 MG; Start 04/12/17 at 06:00 Assessment/Plan Additional Assessment/Plan 1. Acute kidney injury secondary to acute tubular necrosis and severe prerenal azotemia. 2. History of CML/myelodysplastic syndrome, who presented with pancytopenia. Plan for PRBC transfusion. 3. Hypertension. 4. Diabetes mellitus. 5. Hyperlipidemia. 6. Hypothyroidism. 7. Anemia- H/H- 7.2/21.3- upto Primary /Election Assistant for blood transfusion 8. Thrombocytopenia- per Hematology PLAN: Cr improved to 1.42 with IVF hydration will follow up BP stable Further recommendations depend upon patient's clinical course. Plan of care discussed with Dr Destiny Aguilar/staff RADHA CARDENAS April 13, 2017 11:56
[2017-04-13] MEDS ORDERED: SOD CHLORIDE 0.9% 250 ML IV* ONE (13:53)
--- NOTE | 2017-04-13 13:55 | CONS ---
Date/Time of Note Date/Time of Note DATE: 04/13/17 TIME: 13:52 Consult Date/Type/Reason Admit Date/Time April 10, 2017 at 13:38 Initial Consult Date 04/11/17 Type of Consultation: NEPHROLOGY Ordering Provider: DUNIA BECKWITH Subjective No events. Doing well on room air. Objective Vital Signs Date Time Temp Pulse Resp B/P Pulse Ox O2 Delivery O2 Flow Rate FiO2 04/13/17 07:44 98.5 79 18 144/73 99 04/13/17 01:59 21 04/12/17 16:46 3.0 04/11/17 14:00 Room Air Intake and Output 04/12/17 04/12/17 04/13/17 15:00 23:00 07:00 Intake Total 1750 ml 600 ml Balance 1750 ml 600 ml Exam HEENT: Neck supple; no JVD; no LAD CVS: RRR, S1 and S2 CHEST: Clear ABD: Soft, NT, + BS EXT: No c/c/e Results/Medications Result Diagram: 04/13/17 0420 04/13/17 0420 Results 24 hrs Laboratory Tests Test 04/12/17 14:55 04/12/17 17:47 04/12/17 20:27 04/13/17 04:20 White Blood Count 9.5 # 6.7 # Red Blood Count 2.76 L 2.52 L Hemoglobin 7.7 L 7.2 L Hematocrit 23.5 L 21.3 L Mean Corpuscular Volume 85.1 84.5 Mean Corpuscular Hemoglobin 27.9 L 28.6 L Mean Corpuscular Hemoglobin Concent 32.8 33.8 Red Cell Distribution Width 15.4 H 15.0 H Platelet Count 27 #*L 20 #*L Mean Platelet Volume 10.5 H 12.7 #H Neutrophils % 33.0 L 26.0 L Lymphocytes % 19.0 46.0 Monocytes % 41.0 H 10.0 Myelocytes % 4.0 H 6.0 H Blast Cells % 3.0 H 5.0 H Nucleated Red Blood Cells % 3.0 H Neutrophils # 3.1 1.7 Lymphocytes # 1.8 3.1 H Monocytes # 3.9 H 0.7 Myelocytes # 0.4 0.4 Blastocytes # 0.3 0.3 Platelet Estimate PLT APPEAR DECREASED Polychromasia OCCASIONAL Macrocytosis 1+ Sodium Level 138 140 Potassium Level 3.8 3.5 Chloride Level 107 109 Carbon Dioxide Level 26 26 Anion Gap 9 9 Blood Urea Nitrogen 27 H 28 H Creatinine 1.45 H 1.42 H Glucose Level 98 99 Calcium Level 8.3 L 8.2 L Bedside Glucose 97 181 Eosinophils % 1.0 Basophils % 5.0 H Promyelocytes % 1.0 H Eosinophils # 0.1 Basophils # 0.3 H Promyelocytes # 0.1 Test 04/13/17 08:53 04/13/17 12:39 Bedside Glucose 108 94 Medications Current Medications Atorvastatin Calcium (Lipitor) 10 mg QHS PO Last administered on 04/12/17 20: 26; Admin Dose 10 MG; Start 04/10/17 at 21:00 Docusate Sodium (Colace) 250 mg BID PO Last administered on 04/13/17 08:57; Admin Dose 250 MG; Start 04/10/17 at 21:00 Furosemide (Lasix) 40 mg DAILY PO Last administered on 04/13/17 08:58; Admin Dose 40 MG; Start 04/11/17 at 09:00 Acetaminophen/ Hydrocodone Bitart ([place] (10/325)) 1 tab Q6 PRN PO PAIN; Start 04/10/17 at 16:30 Levothyroxine Sodium (Synthroid) 50 mcg DAILY@06 PO Last administered on 05:58; Admin Dose 50 MCG; Start 04/11/17 at 06:00 Metoprolol Tartrate (Lopressor) 25 mg BID PO Last administered on 04/13/17 08: 59; Admin Dose 25 MG; Start 04/10/17 at 21:00 Potassium Chloride (Micro-K) 8 meq DAILY PO Last administered on 04/13/17 08: 58; Admin Dose 8 MEQ; Start 04/11/17 at 09:00 Propranolol HCl (Inderal) 10 mg BID PO Last administered on 04/13/17 08:58; Admin Dose 10 MG; Start 04/10/17 at 21:00 Sucralfate 1 gm 1 gm QID PO Last administered on 04/13/17 12:38; Admin Dose 1 GM; Start 04/10/17 at 17:00 Sodium Chloride (NS) 1,000 ml @ 60 mls/hr [id number] IV Last administered on 5/28 /17at 02:28; Admin Dose 60 MLS/HR; Start 04/10/17 at 16:08 Ondansetron HCl (Zofran Inj) 4 mg Q6H PRN IV NAUSEA AND/OR VOMITING; Start at 16:30 Acetaminophen (Tylenol Tab) 650 mg Q6H PRN PO PAIN LEVEL 1-3 OR FEVER; Start at 16:30 Acetaminophen (Tylenol Supp) 650 mg Q6H PRN [place] PAIN LEVEL 1-3 OR FEVER; Start 04/10/17 at 16:30 Acetaminophen/ Hydrocodone Bitart ([place] (5/325)) 1 tab Q6H PRN PO MODERATE PAIN LEVEL 4-6; Start 04/10/17 at 16:30 Acetaminophen/ Hydrocodone Bitart ([place] (5/325)) 2 tab Q6H PRN PO SEVERE PAIN LEVEL 7-10; Start 04/10/17 at 16:30 Morphine Sulfate (morphine) 2 mg Q4H PRN IV SEVERE PAIN LEVEL 7-10; Start 04/10 at 16:30 Docusate Sodium (Colace) 100 mg Q12H PRN PO CONSTIPATION; Start 04/10/17 at 16: 30 Magnesium Hydroxide (Milk Of Mag) 30 ml DAILY PRN PO CONSTIPATION; Start at 16:30 Bisacodyl (Dulcolax Supp) 10 mg DAILY PRN [place] CONSTIPATION; Start 04/10/17 at 16 :30 Miscellaneous Information 1 ea NOTE XX ; Start 04/10/17 at 17:00 Glucose (Glutose) 15 gm Q15M PRN PO DECREASED GLUCOSE; Start 04/10/17 at 17:00 Glucose (Glutose) 22.5 gm Q15M PRN PO DECREASED GLUCOSE; Start 04/10/17 at 17: 00 Dextrose (D50w Syringe) 25 ml Q15M PRN IV DECREASED GLUCOSE; Start 04/10/17 at 17:00 Dextrose (D50w Syringe) 50 ml Q15M PRN IV DECREASED GLUCOSE; Start 04/10/17 at 17:00 Glucagon (Glucagen) 1 mg Q15M PRN IM DECREASED GLUCOSE; Start 04/10/17 at 17:00 Glucose (Glutose) 15 gm Q15M PRN BUCCAL DECREASED GLUCOSE; Start 04/10/17 at 17 :00 Pantoprazole (Protonix Tab) 40 mg DAILY@06 PO Last administered on 04/13/17t 05 :58; Admin Dose 40 MG; Start 04/12/17 at 06:00 Assessment/Plan Additional Assessment/Plan IMP: 1. Pancytopenia 2. CML/MDS 3. Azotemia 4. Anemia 5 Mild hypoxemia RECS: 1. Ambulate; follow SpO2 2. Home oxygen NILO Rasheed MD April 13, 2017 13:55
--- NOTE | 2017-04-13 15:25 | DS ---
Date/Time of Note Date/Time of Note DATE: 04/13/17 TIME: 15:19 Discharge Summary Admission/Discharge Info Admit Date/Time April 10, 2017 at 13:38 Discharge Date/Time Final Diagnosis HOME CARE INSTRUCTIONS: Special Diet: regular FOLLOW UP/APPOINTMENTS Appointments 1. Follow up with Dr. Pryor 04/14/17 2. Follow up with your primary care provider in 1-2 weeks Patient Condition: Stable Consults 1. Dr. Rickie Aguilar 2. Dr. Wm Ricketts Hx of Present Illness This is a 71-year-old male who was recently hospitalized on January 31, 2017 and discharged on February 15, 2017 who came back again due to pancytopenia. Patient does have a history of CML as well as myelodysplastic syndrome. He reported having chest pain for 2 days duration more midsternal. He also had some shortness of breath. He did go to his oncologist 1 day prior to admission and was told to go to the hospital due to his pancytopenia. He also did report that his chest pain had been worsening more midsternal nonradiating with associated shortness of breath with no specific cause of chest pain and subsequently went to [facility] for further evaluation. Upon examination he was found to be pancytopenic with hemoglobin of 6.2 and hematocrit of 19.1. Additionally had platelets of 6. He of note does follow- up with Dr. Pryor as his oncologist. Patient did previously have a CTA of his chest done in February 2017 that did show a possible mass in the right mainstem bronchus and also a possible masses in the right upper lung lobe measuring up to 1.7 cm. Patient was also noted to have some renal dysfunction with creatinine of 1.59. Patient is remained alert and oriented. No acute distress and at this time. He does report little improvement of his chest pain although he does report it is 7 out of 10 in intensity achy-like in nature. No other specific complaints at this time. We will evaluate him for the aformentiond issues Hospital Course Is a 71-year-old male who was recently hospitalized January 31, 2017 and discharged on February 15, 2017 came back again due to pancytopenia. Patient does have a history of CML as well as mild dysplastic syndrome. He also reported having some chest pain for 2 days duration more midsternal but after he received his blood products for his anemia he did report resolved minutes of his chest pain. Patient is seen by oncologist Dr. Pryor for his pancytopenia and is reported to have regular blood transfusions. Of note patient also did have a CT of his chest on February 2017 that did show possible mass in the right mainstem bronchus and possible mass in the right upper lung lobe measuring 1.7 cm. He was seen by pressure welder again at this time but due to his chronic thrombocytopenia he was deemed not a candidate for possible bronchoscopy due to the risk of bleeding. There are his course of stay he did improve. No respiratory distress or further chest pain was noted. Serial troponins were negative. He was transfused blood products and he was instructed to follow-up with oncologist as outpatient. He was otherwise optimized medically with Synthroid for his hypothyroidism and his cardiovascular medications for his cardiomyopathy and insulin for diabetes. The plan of care was discussed with the patient and patient did verbalize understanding. On the day of discharge patient was in stable condition Discussed plan of care with Dr. Velasquez Discharge process time 40 minutes Home Meds Active Scripts Sucralfate (Carafate) 1 Gm Tablet, 1 GM PO QID for 30 Days, TAB Prov:CHARLY LAWRENCE 02/15/17 Potassium Chloride* (Klor-Con*) 8 Meq Tablet.sa, 8 MEQ PO DAILY for 30 Days Prov:CHARLY LAWRENCE 02/15/17 Levothyroxine Sodium* (Synthroid*) 50 Mcg Tablet, 50 MCG PO DAILY@06 for 30 Days , TAB Prov:CHARLY LAWRENCE 02/15/17 Metoprolol Tartrate* (Lopressor*) 25 Mg Tab, 25 MG PO BID for 30 Days, TAB 2 Refills Prov:CHARLY LAWRENCE 02/15/17 Reported Medications Esomeprazole Magnesium (Nexium 24Hr) 22.3 Mg Capsule., 22.3 MG PO BID, #30 CAP 04/10/17 Atorvastatin Calcium (Atorvastatin Calcium) 10 Mg Tablet, 10 MG PO QHS, #30 TAB 04/10/17 Metformin Hcl* (Metformin Hcl*) 500 Mg Tablet, 500 MG PO WITH BREAKFAST DINNE, # 30 TAB 04/10/17 Famotidine* (Famotidine*) 20 Mg Tablet, 20 MG PO DAILY, #30 TAB 04/10/17 Propranolol Hcl* (Propranolol Hcl*) 10 Mg Tablet, 10 MG PO BID, TAB 04/10/17 Docusate Sodium* (Colace*) 250 Mg Capsule, 250 MG PO BID, #60 CAP 04/10/17 Hydrocodone/Acetaminophen ([place] 10-325 Tablet) 1 Each Tablet, 1 EACH PO Q6 Y for PAIN, TAB 04/10/17 Furosemide* (Furosemide*) 40 Mg Tablet, 40 MG PO DAILY, TAB 04/10/17 Discontinued Scripts Pantoprazole* (Protonix*) 40 Mg Tablet.dr 40 MG PO BID for 30 Days, TAB Prov:CHARLY LAWRENCE 02/15/17 Furosemide* (Lasix*) 20 Mg Tablet, 20 MG PO DAILY for 30 Days, TAB Prov:CHARYL LAWRENCE 02/15/17 Follow-up Plan HOME CARE INSTRUCTIONS: Special Diet: regular FOLLOW UP/APPOINTMENTS Appointments 1. Follow up with Dr. Pryor 04/14/17 2. Follow up with your primary care provider in 1-2 weeks Primary Care Provider David Ruelas Pending Labs Laboratory Tests Test 04/12/17 17:47 04/12/17 20:27 04/13/17 04:20 04/13/17 08:53 Bedside Glucose 97mg/dL (70-220) 181mg/dL (70-220) 108mg/dL (70-220) White Blood Count 6.710^3/ul (4.8-10.8) Red Blood Count 2.5210^6/ul (4.70-6.10) Hemoglobin 7.2g/dl (14.0-18.0) Hematocrit 21.3% (42.0-52.0) Mean Corpuscular Volume 84.5fl (82.0-101.0) Mean Corpuscular Hemoglobin 28.6pg (29.0-33.0) Mean Corpuscular Hemoglobin Concent 33.8g/dl (32.0-37.0) Red Cell Distribution Width 15.0% (11.5-14.5) Platelet Count 2010^3/UL (140-415) Mean Platelet Volume 12.7fl (7.4-10.4) Neutrophils % 26.0% (39.0-77.0) Lymphocytes % 46.0% (15.0-51.0) Monocytes % 10.0% (0.0-11.0) Eosinophils % 1.0% (0.0-7.0) Basophils % 5.0% (0.0-2.0) Myelocytes % 6.0% (0.0-0.0) Promyelocytes % 1.0% (0.0-0.0) Blast Cells % 5.0% (0.0-0.0) Neutrophils # 1.710^3/ul (1.6-7.5) Lymphocytes # 3.110^3/ul (0.8-2.9) Monocytes # 0.710^3/ul (0.3-0.9) Eosinophils # 0.110^3/ul (0.0-0.5) Basophils # 0.310^3/ul (0.0-0.1) Myelocytes # 0.4 Promyelocytes # 0.1 Blastocytes # 0.3 Sodium Level 140mmol/L (135-144) Potassium Level 3.5mmol/L (3.5-5.1) Chloride Level 109mmol/L (97-110) Carbon Dioxide Level 26mmol/L (21-31) Anion Gap 9 (8-16) Blood Urea Nitrogen 28mg/dl (7-20) Creatinine 1.42mg/dl (0.61-1.24) Glucose Level 99mg/dl (70-220) Calcium Level 8.2mg/dl (8.4-10.2) Test 04/13/17 12:39 Bedside Glucose 94mg/dL (70-220) CHARLY LAWRENCE April 13, 2017 15:25
[2017-04-13 19:42] VITALS: BP 134/70; RESP 18
[2017-04-13] MEDS: ATORVASTATIN 10 MG TAB PO SCH (20:29)
[2017-04-14] MEDS: SOD CHLORIDE 0.9% 1,000 ML IV SCH (03:28)
[2017-04-14 05:23] LABS: ADD SCAN DIFF NO
[2017-04-14 05:29] LABS: ABNORMAL IP MESSAGE 1; HEMATOCRIT 23.2 % (42.0-52.0); HEMOGLOBIN 7.7 g/dl (14.0-18.0); MEAN CORPUSCULAR HEMOGLOBIN 27.9 pg (29.0-33.0); MEAN CORPUSCULAR HGB CONC 33.2 g/dl (32.0-37.0); MEAN CORPUSCULAR VOLUME 84.1 fl (82.0-101.0); MEAN PLATELET VOLUME 10.2 fl (7.4-10.4); RED BLOOD COUNT 2.76 10^6/ul (4.70-6.10); RED CELL DISTRIBUTION WIDTH 15.8 % (11.5-14.5); WHITE BLOOD COUNT 6.3 10^3/ul (4.8-10.8)
[2017-04-14 05:49] LABS: PLATELET COUNT 25 10^3/UL (140-415)
[2017-04-14 05:54] LABS: POTASSIUM 3.3 mmol/L (3.5-5.1)
[2017-04-14 05:57] LABS: CREATININE 1.4 mg/dl (0.61-1.24)
[2017-04-14 05:58] LABS: CALCIUM 8.3 mg/dl (8.4-10.2)
[2017-04-14] MEDS: PANTOPRAZOLE (EC) 40 MG TAB PO SCH (06:01)
[2017-04-14] MEDS: LEVOTHYROXINE 50 MCG TAB PO SCH (06:02)
[2017-04-14 07:31] VITALS: BP 145/40; RESP 16
[2017-04-14] MEDS: INSULIN ASPART [NOVOLOG] 3 ML PEN SC SCH ×2 (07:50→11:40)
[2017-04-14] MEDS: DOCUSATE SODIUM 250 MG CAP PO SCH (08:48)
[2017-04-14] MEDS: SUCRALFATE 1 GM TAB PO SCH ×2 (08:48→12:50)
[2017-04-14] MEDS: POTASSIUM CHLORIDE (SR) 8 MEQ CAP PO SCH (08:48)
[2017-04-14] MEDS: FUROSEMIDE 40 MG TAB PO SCH (08:49)
[2017-04-14] MEDS: PROPRANOLOL 10 MG TAB PO SCH (08:49)
[2017-04-14] MEDS: METOPROLOL 25 MG TAB PO SCH (08:49)
[2017-04-14] MEDS: metFORMIN 500 MG TAB PO SCH (08:52)
[2017-04-14 10:20] LABS: EOSINOPHILS # 0.1 10^3/ul (0.0-0.5); LYMPHOCYTES # 1.3 10^3/ul (0.8-2.9); MONOCYTE # 2.7 10^3/ul (0.3-0.9); NEUTROPHIL # 1.8 10^3/ul (1.6-7.5); OVALOCYTES 1+; PLATELET ESTIMATE PLT APPEAR DECREASED
--- NOTE | 2017-04-14 11:30 | CONS ---
Date/Time of Note Date/Time of Note DATE: 04/14/17 TIME: 11:25 Consult Date/Type/Reason Admit Date/Time April 10, 2017 at 13:38 Initial Consult Date 04/11/17 Type of Consultation: NEPHROLOGY Ordering Provider: DUNIA BECKWITH Subjective Alert, resting in bed, seems comfortable, denies any chest pain, shortness of breath,H/H is low today- pe primary/outpatient Commissioning Specialist Possible discharge today-dw staff Objective Vital Signs Date Time Temp Pulse Resp B/P Pulse Ox O2 Delivery O2 Flow Rate FiO2 04/14/17 07:31 98.0 76 16 145/40 93 04/13/17 01:59 21 04/12/17 16:46 3.0 04/11/17 14:00 Room Air Intake and Output 04/13/17 04/13/17 04/14/17 15:00 23:00 07:00 Intake Total 560 ml 2780 ml 560 ml Output Total 800 ml Balance 560 ml 1980 ml 560 ml Exam GENERAL: nad, alert/awake, oriented x3. HEENT: Neck supple; no JVD; no LAD CVS: RRR, S1 and S2 CHEST: CTAB, normal tristan movements bilaterally ABD: Soft, NT, + BS EXT: No c/c/e bilaterally NEURO: A/A/O X 3. Able to move all 4 extremities Results/Medications Result Diagram: 04/14/17 0438 04/14/17 0438 Results 24 hrs Laboratory Tests Test 04/13/17 12:39 04/13/17 17:53 04/13/17 20:32 04/14/17 04:38 Bedside Glucose 94 103 127 White Blood Count 6.3 Red Blood Count 2.76 L Hemoglobin 7.7 L Hematocrit 23.2 L Mean Corpuscular Volume 84.1 Mean Corpuscular Hemoglobin 27.9 L Mean Corpuscular Hemoglobin Concent 33.2 Red Cell Distribution Width 15.8 H Platelet Count 25 #*L Mean Platelet Volume 10.2 Neutrophils % 28.0 L Band Neutrophils % 1.0 Lymphocytes % 20.0 Reactive Lymphocytes % 1.0 Monocytes % 43.0 H Eosinophils % 2.0 Metamyelocytes % 1.0 H Blast Cells % 4.0 H Nucleated Red Blood Cells % 2.0 H Neutrophils # 1.8 Lymphocytes # 1.3 Monocytes # 2.7 H Eosinophils # 0.1 Metamyelocytes # 0.1 Blastocytes # 0.3 Platelet Estimate PLT APPEAR DECREASED Ovalocytes 1+ Sodium Level 141 Potassium Level 3.3 L Chloride Level 109 Carbon Dioxide Level 28 Anion Gap 7 L Blood Urea Nitrogen 29 H Creatinine 1.40 H Glucose Level 92 Calcium Level 8.3 L Test 04/14/17 08:46 Bedside Glucose 101 Medications Current Medications Atorvastatin Calcium (Lipitor) 10 mg QHS PO Last administered on 04/13/17 20: 29; Admin Dose 10 MG; Start 04/10/17 at 21:00 Docusate Sodium (Colace) 250 mg BID PO Last administered on 04/14/17 08:48; Admin Dose 250 MG; Start 04/10/17 at 21:00 Furosemide (Lasix) 40 mg DAILY PO Last administered on 04/14/17 08:49; Admin Dose 40 MG; Start 04/11/17 at 09:00 Acetaminophen/ Hydrocodone Bitart ([place] (10/325)) 1 tab Q6 PRN PO PAIN; Start 04/10/17 at 16:30 Levothyroxine Sodium (Synthroid) 50 mcg DAILY@06 PO Last administered on 06:02; Admin Dose 50 MCG; Start 04/11/17 at 06:00 Metoprolol Tartrate (Lopressor) 25 mg BID PO Last administered on 04/14/17 08: 49; Admin Dose 25 MG; Start 04/10/17 at 21:00 Potassium Chloride (Micro-K) 8 meq DAILY PO Last administered on 04/14/17 08: 48; Admin Dose 8 MEQ; Start 04/11/17 at 09:00 Propranolol HCl (Inderal) 10 mg BID PO Last administered on 04/14/17 08:49; Admin Dose 10 MG; Start 04/10/17 at 21:00 Sucralfate 1 gm 1 gm QID PO Last administered on 04/14/17 08:48; Admin Dose 1 GM; Start 04/10/17 at 17:00 Sodium Chloride (NS) 1,000 ml @ 60 mls/hr [id number] IV Last administered on 04/13 17:57; Admin Dose 60 MLS/HR; Start 04/10/17 at 16:08 Ondansetron HCl (Zofran Inj) 4 mg Q6H PRN IV NAUSEA AND/OR VOMITING; Start at 16:30 Acetaminophen (Tylenol Tab) 650 mg Q6H PRN PO PAIN LEVEL 1-3 OR FEVER; Start at 16:30 Acetaminophen (Tylenol Supp) 650 mg Q6H PRN CA PAIN LEVEL 1-3 OR FEVER; Start 04/10/17 at 16:30 Acetaminophen/ Hydrocodone Bitart ([place] (5/325)) 1 tab Q6H PRN PO MODERATE PAIN LEVEL 4-6; Start 04/10/17 at 16:30 Acetaminophen/ Hydrocodone Bitart ([place] (5/325)) 2 tab Q6H PRN PO SEVERE PAIN LEVEL 7-10; Start 04/10/17 at 16:30 Morphine Sulfate (morphine) 2 mg Q4H PRN IV SEVERE PAIN LEVEL 7-10; Start 04/10 at 16:30 Docusate Sodium (Colace) 100 mg Q12H PRN PO CONSTIPATION; Start 04/10/17 at 16: 30 Magnesium Hydroxide (Milk Of Mag) 30 ml DAILY PRN PO CONSTIPATION; Start at 16:30 Bisacodyl (Dulcolax Supp) 10 mg DAILY PRN [place] CONSTIPATION; Start 04/10/17 at 16 :30 Miscellaneous Information 1 ea NOTE XX ; Start 04/10/17 at 17:00 Glucose (Glutose) 15 gm Q15M PRN PO DECREASED GLUCOSE; Start 04/10/17 at 17:00 Glucose (Glutose) 22.5 gm Q15M PRN PO DECREASED GLUCOSE; Start 04/10/17 at 17: 00 Dextrose (D50w Syringe) 25 ml Q15M PRN IV DECREASED GLUCOSE; Start 04/10/17 at 17:00 Dextrose (D50w Syringe) 50 ml Q15M PRN IV DECREASED GLUCOSE; Start 04/10/17 at 17:00 Glucagon (Glucagen) 1 mg Q15M PRN IM DECREASED GLUCOSE; Start 04/10/17 at 17:00 Glucose (Glutose) 15 gm Q15M PRN BUCCAL DECREASED GLUCOSE; Start 04/10/17 at 17 :00 Pantoprazole (Protonix Tab) 40 mg DAILY@06 PO Last administered on 04/14/17t 06 :01; Admin Dose 40 MG; Start 04/12/17 at 06:00 Assessment/Plan Additional Assessment/Plan 1. Acute kidney injury secondary to acute tubular necrosis and severe prerenal azotemia. 2. History of CML/myelodysplastic syndrome, who presented with pancytopenia. Plan for PRBC transfusion. 3. Hypertension. 4. Diabetes mellitus. 5. Hyperlipidemia. 6. Hypothyroidism. 7. Anemia- H/H- 7.7/23.2- upto Primary /Commissioning Specialist for blood transfusion 8. Thrombocytopenia- per Hematology 9. Hypokalemia- replet K. PLAN: Cr improved to 1.40 with IVF hydration will follow up BP stable Further recommendations depend upon patient's clinical course. Plan of care discussed with Dr Destiny Aguilar/staff RADHA CARDENAS April 14, 2017 11:30
[2017-04-14] MEDS ORDERED: POTASSIUM CHLORIDE (SR) 8 MEQ CAP PO ONE (12:30)
--- NOTE | 2017-04-14 12:49 | PN ---
Date/Time of Note Date/Time of Note DATE: 04/14/17 TIME: 12:45 Assessment/Plan VTE Prophylaxis VTE Prophylaxis Intervention: SCD's Lines/Catheters IV Catheter Type (from Nrs): Peripheral IV Assessment/Plan Assessment/Plan 73 yo M with h/o CML and MDS admitted for anemia and thrombocytopenia. Hgb responded to RBC transfusion, platelets without significant increase following last night's infusion though infusion did not begin until after midnight so unclear when in time course of transfusion CBC was obtained plan is for discharge today, summary and prescriptions completed yesterday pt is aware of heme/onc f/u scheduled for this week re cytopenias and lung mass no changes made from admission meds. Subjective 24 Hr Interval Summary Free Text/Dictation PROGRESS/DATE OF DISCHARGE NOTE Plan was for pt to be discharged yesterday following transfusions, however blood products were not available until late in the evening thus pt remained in the hospital overnight. Pt feels ok this morning at is amenable to discharge. Exam/Review of Systems Vital Signs Vitals Vital Signs Date Time Temp Pulse Resp B/P Pulse Ox O2 Delivery O2 Flow Rate FiO2 04/14/17 07:31 98.0 76 16 145/40 93 04/13/17 01:59 21 04/12/17 16:46 3.0 04/11/17 14:00 Room Air Intake and Output 04/13/17 04/13/17 04/14/17 15:00 23:00 07:00 Intake Total 560 ml 2780 ml 560 ml Output Total 800 ml Balance 560 ml 1980 ml 560 ml Exam laying in bed, NAD resp nonlabored no abd distension no rashes no le edema responds to questions appropriately Results Result Diagram: 04/14/17 0438 04/14/17 0438 Results 24 hrs Laboratory Tests Test 04/13/17 17:53 04/13/17 20:32 04/14/17 04:38 04/14/17 08:46 Bedside Glucose 103 127 101 White Blood Count 6.3 Red Blood Count 2.76 L Hemoglobin 7.7 L Hematocrit 23.2 L Mean Corpuscular Volume 84.1 Mean Corpuscular Hemoglobin 27.9 L Mean Corpuscular Hemoglobin Concent 33.2 Red Cell Distribution Width 15.8 H Platelet Count 25 #*L Mean Platelet Volume 10.2 Neutrophils % 28.0 L Band Neutrophils % 1.0 Lymphocytes % 20.0 Reactive Lymphocytes % 1.0 Monocytes % 43.0 H Eosinophils % 2.0 Metamyelocytes % 1.0 H Blast Cells % 4.0 H Nucleated Red Blood Cells % 2.0 H Neutrophils # 1.8 Lymphocytes # 1.3 Monocytes # 2.7 H Eosinophils # 0.1 Metamyelocytes # 0.1 Blastocytes # 0.3 Platelet Estimate PLT APPEAR DECREASED Ovalocytes 1+ Sodium Level 141 Potassium Level 3.3 L Chloride Level 109 Carbon Dioxide Level 28 Anion Gap 7 L Blood Urea Nitrogen 29 H Creatinine 1.40 H Glucose Level 92 Calcium Level 8.3 L Medications Medications Current Medications Atorvastatin Calcium (Lipitor) 10 mg QHS PO Last administered on 04/13/17 20: 29; Admin Dose 10 MG; Start 04/10/17 at 21:00 Docusate Sodium (Colace) 250 mg BID PO Last administered on 04/14/17 08:48; Admin Dose 250 MG; Start 04/10/17 at 21:00 Furosemide (Lasix) 40 mg DAILY PO Last administered on 04/14/17 08:49; Admin Dose 40 MG; Start 04/11/17 at 09:00 Acetaminophen/ Hydrocodone Bitart ([place] (10/325)) 1 tab Q6 PRN PO PAIN; Start 04/10/17 at 16:30 Levothyroxine Sodium (Synthroid) 50 mcg DAILY@06 PO Last administered on 06:02; Admin Dose 50 MCG; Start 04/11/17 at 06:00 Metoprolol Tartrate (Lopressor) 25 mg BID PO Last administered on 04/14/17 08: 49; Admin Dose 25 MG; Start 04/10/17 at 21:00 Potassium Chloride (Micro-K) 8 meq DAILY PO Last administered on 04/14/17 08: 48; Admin Dose 8 MEQ; Start 04/11/17 at 09:00 Propranolol HCl (Inderal) 10 mg BID PO Last administered on 04/14/17 08:49; Admin Dose 10 MG; Start 04/10/17 at 21:00 Sucralfate 1 gm 1 gm QID PO Last administered on 04/14/17 08:48; Admin Dose 1 GM; Start 04/10/17 at 17:00 Sodium Chloride (NS) 1,000 ml @ 60 mls/hr [id number] IV Last administered on 04/13t 17:57; Admin Dose 60 MLS/HR; Start 04/10/17 at 16:08 Ondansetron HCl (Zofran Inj) 4 mg Q6H PRN IV NAUSEA AND/OR VOMITING; Start at 16:30 Acetaminophen (Tylenol Tab) 650 mg Q6H PRN PO PAIN LEVEL 1-3 OR FEVER; Start at 16:30 Acetaminophen (Tylenol Supp) 650 mg Q6H PRN [place] PAIN LEVEL 1-3 OR FEVER; Start 04/10/17 at 16:30 Acetaminophen/ Hydrocodone Bitart ([place] (5/325)) 1 tab Q6H PRN PO MODERATE PAIN LEVEL 4-6; Start 04/10/17 at 16:30 Acetaminophen/ Hydrocodone Bitart ([place] (5/325)) 2 tab Q6H PRN PO SEVERE PAIN LEVEL 7-10; Start 04/10/17 at 16:30 Morphine Sulfate (morphine) 2 mg Q4H PRN IV SEVERE PAIN LEVEL 7-10; Start 04/10 at 16:30 Docusate Sodium (Colace) 100 mg Q12H PRN PO CONSTIPATION; Start 04/10/17 at 16: 30 Magnesium Hydroxide (Milk Of Mag) 30 ml DAILY PRN PO CONSTIPATION; Start at 16:30 Bisacodyl (Dulcolax Supp) 10 mg DAILY PRN [place] CONSTIPATION; Start 04/10/17 at 16 :30 Miscellaneous Information 1 ea NOTE XX ; Start 04/10/17 at 17:00 Glucose (Glutose) 15 gm Q15M PRN PO DECREASED GLUCOSE; Start 04/10/17 at 17:00 Glucose (Glutose) 22.5 gm Q15M PRN PO DECREASED GLUCOSE; Start 04/10/17 at 17: 00 Dextrose (D50w Syringe) 25 ml Q15M PRN IV DECREASED GLUCOSE; Start 04/10/17 at 17:00 Dextrose (D50w Syringe) 50 ml Q15M PRN IV DECREASED GLUCOSE; Start 04/10/17 at 17:00 Glucagon (Glucagen) 1 mg Q15M PRN IM DECREASED GLUCOSE; Start 04/10/17 at 17:00 Glucose (Glutose) 15 gm Q15M PRN BUCCAL DECREASED GLUCOSE; Start 04/10/17 at 17 :00 Pantoprazole (Protonix Tab) 40 mg DAILY@06 PO Last administered on 04/14/17 06 :01; Admin Dose 40 MG; Start 04/12/17 at 06:00 FABIOLA JAIMES MD April 14, 2017 12:49 Miscellaneous Information 1 ea NOTE XX ; Start 04/10/17 at 17:00 Glucose (Glutose) 15 gm Q15M PRN PO DECREASED GLUCOSE; Start 04/10/17 at 17:00 Glucose (Glutose) 22.5 gm Q15M PRN PO DECREASED GLUCOSE; Start 04/10/17 at 17: 00 Dextrose (D50w Syringe) 25 ml Q15M PRN IV DECREASED GLUCOSE; Start 04/10/17 at 17:00 Dextrose (D50w Syringe) 50 ml Q15M PRN IV DECREASED GLUCOSE; Start 04/10/17 at 17:00 Glucagon (Glucagen) 1 mg Q15M PRN IM DECREASED GLUCOSE; Start 04/10/17 at 17:00 Glucose (Glutose) 15 gm Q15M PRN BUCCAL DECREASED GLUCOSE; Start 04/10/17 at 17 :00 Pantoprazole (Protonix Tab) 40 mg DAILY@06 PO Last administered on 04/14/17 06 :01; Admin Dose 40 MG; Start 04/12/17 at 06:00 FABIOLA JAIMES MD April 14, 2017 12:49
--- NOTE | 2017-04-14 14:55 | CONS ---
Date/Time of Note Date/Time of Note DATE: 04/14/17 TIME: 14:53 Consult Date/Type/Reason Admit Date/Time April 10, 2017 at 13:38 Initial Consult Date 04/11/17 Type of Consultation: Pulm Ordering Provider: DUNIA BECKWITH Subjective Patient being d/c'ed on my arrival. No SOB Objective Vital Signs Date Time Temp Pulse Resp B/P Pulse Ox O2 Delivery O2 Flow Rate FiO2 04/14/17 07:31 98.0 76 16 145/40 93 04/13/17 01:59 21 04/12/17 16:46 3.0 04/11/17 14:00 Room Air Intake and Output 04/13/17 04/13/17 04/14/17 15:00 23:00 07:00 Intake Total 560 ml 2780 ml 560 ml Output Total 800 ml Balance 560 ml 1980 ml 560 ml Exam HEENT: Neck supple; no JVD; no LAD CVS: RRR, S1 and S2 CHEST: Clear ABD: Soft, NT, + BS EXT: No c/c/e Results/Medications Result Diagram: 04/14/17 0438 04/14/17 0438 Results 24 hrs Laboratory Tests Test 04/13/17 17:53 04/13/17 20:32 04/14/17 04:38 04/14/17 08:46 Bedside Glucose 103 127 101 White Blood Count 6.3 Red Blood Count 2.76 L Hemoglobin 7.7 L Hematocrit 23.2 L Mean Corpuscular Volume 84.1 Mean Corpuscular Hemoglobin 27.9 L Mean Corpuscular Hemoglobin Concent 33.2 Red Cell Distribution Width 15.8 H Platelet Count 25 #*L Mean Platelet Volume 10.2 Neutrophils % 28.0 L Band Neutrophils % 1.0 Lymphocytes % 20.0 Reactive Lymphocytes % 1.0 Monocytes % 43.0 H Eosinophils % 2.0 Metamyelocytes % 1.0 H Blast Cells % 4.0 H Nucleated Red Blood Cells % 2.0 H Neutrophils # 1.8 Lymphocytes # 1.3 Monocytes # 2.7 H Eosinophils # 0.1 Metamyelocytes # 0.1 Blastocytes # 0.3 Platelet Estimate PLT APPEAR DECREASED Ovalocytes 1+ Sodium Level 141 Potassium Level 3.3 L Chloride Level 109 Carbon Dioxide Level 28 Anion Gap 7 L Blood Urea Nitrogen 29 H Creatinine 1.40 H Glucose Level 92 Calcium Level 8.3 L Assessment/Plan Additional Assessment/Plan IMP: 1. Pancytopenia 2. CML/MDS 3. Azotemia 4. Anemia 5 Mild hypoxemia RECS: 1. d/C planning 2. f/u per PMD NILO NASSAR MD April 14, 2017 14:55
== END 2017-04-14 14:31 | disposition home or self-care (01) | DRG 840 ==
LOC: E/R 11:48 → MS1 13:38
PROVIDERS: ADMIT Internal Medicine; ATTEND Internal Medicine
PROC: 30233N1 Transfusion of Nonautologous Red Blood Cells into Peripheral Vein, Percutaneous Approach (ICD-10-PCS; principal; 2017-04-10)
PROC: 30233R1 Transfusion of Nonautologous Platelets into Peripheral Vein, Percutaneous Approach (ICD-10-PCS; 2017-04-10)
DX: C92.10 Chronic myeloid leukemia, BCR/ABL-positive, not having achieved remission (principal); N17.0 Acute kidney failure with tubular necrosis; D61.818 Other pancytopenia; E11.9 Type 2 diabetes mellitus without complications; I10 Essential (primary) hypertension; E78.5 Hyperlipidemia, unspecified; R07.9 Chest pain, unspecified; E03.9 Hypothyroidism, unspecified; R09.02 Hypoxemia
CPT/HCPCS: 36430; 80048; 80053; 80061; 82962; 83036; 83735; 84100; 84436; 84443; 84479; 84484; 85025; 85610; 85730; 86644; 86850; 86900; 86901; 86920; 86945; 93005; C9113; J1815; J7030; J7040; P9016; P9035

== ENCOUNTER 2017-06-10 21:45 | Inpatient (IN) | payer BC ==
[~2017-06-10] VITALS: Ht 177.8 cm; Wt 66.5 kg
[~2017-06-10 21:45] MED LIST changes: +ATOR10TA65 PO; +DOCU250C58 PO; +ESOM20CA32 PO; +FAMO20TA18 PO; -FURO-110 PO; +FURO40TA4 PO; +HYDR-902 PO; +METF500T4 PO; -PANT40TA3 PO; +PROP10TA6 PO
--- NOTE | 2017-06-10 23:14 | RADRPT ---
PROCEDURE: XR Chest. CLINICAL INDICATION: Chest pain. TECHNIQUE: Single frontal view of the chest. COMPARISON: CTA chest dated 02/22/2017 and 04/08/2016 with multiple intervening chest radiographs. Plain film chest dated 04/10/2017 FINDINGS: Cardiomegaly. Spiculated nodule in the right upper lung measures about 11 mm. Additional lung nodul es are seen in the right upper lobe. These findings are similar in appearance to prior examination dated 02/22/2017 and 04/10/2017. These findings are without significant plain film changes since exa mination dated 04/08/2016. A follow-up CT examination of the chest would be of further use, with com parison to CTA chest dated 02/22/2017. Changes of centrolobular emphysema. Previously seen left lung base atelectasis and air space diseas e is substantially resolved with mild residual discoid atelectasis. No signs of pleural fluid or pne umothorax are seen. The osseous structures and soft tissues are unremarkable. IMPRESSION: 1. Multiple right upper lobe nodule is again seen, without plain film changes since 04/08/2016. 2. A follow-up CT examination would be of further use, with comparison to CT chest dated . 3. Previously seen left lung base atelectasis versus airspace disease is substantially resolved ove r interval with mild persistent discoid atelectasis. RPTAT: [facility] Physician Elham Date Time Electronically viewed and signed by Physician Elham on 06/10/2017 23:14 RS/
[2017-06-10 23:22] LABS: ABNORMAL IP MESSAGE 1; HEMATOCRIT 19.2 % (42.0-52.0); MEAN CORPUSCULAR HEMOGLOBIN 27.1 pg (29.0-33.0); MEAN CORPUSCULAR HGB CONC 32.3 g/dl (32.0-37.0); MEAN CORPUSCULAR VOLUME 83.8 fl (82.0-101.0); NUCLEATED RED BLOOD CELLS% 3.4 /100WBC (0.0-0.0); POSITIVE DIFF @See below; RED BLOOD COUNT 2.29 10^6/ul (4.70-6.10); RED CELL DISTRIBUTION WIDTH 16.8 % (11.5-14.5); WHITE BLOOD COUNT 12.2 10^3/ul (4.8-10.8)
[2017-06-10 23:31] LABS: HEMOGLOBIN 6.2 g/dl (14.0-18.0); PLATELET COUNT 8 10^3/UL (140-415)
[2017-06-10 23:50] LABS: INR 1.07; PROTIME 13.9 Sec (12.2-14.2); PT RATIO 1.1
[2017-06-10 23:51] LABS: PARTIAL THROMBOPLASTIN TIME 41.9 Sec (25.0-35.0)
[2017-06-10 23:56] LABS: ANION GAP 18 (8-16); BLOOD UREA NITROGEN 33 mg/dl (7-20); CALCIUM 8.6 mg/dl (8.4-10.2); CARBON DIOXIDE 27 mmol/L (21-31); CHLORIDE 102 mmol/L (97-110); CREATININE 1.95 mg/dl (0.61-1.24); GLUCOSE 101 mg/dl (70-220); POTASSIUM 3.4 mmol/L (3.5-5.1); SODIUM 144 mmol/L (135-144)
[2017-06-11] VITALS (12 sets, daily range): BP systolic 106–143; BP diastolic 55–67; PULSE 73–90; RESP 18–19; TEMP 98.6; Ht 177.8 cm; Wt 66.5 kg
[2017-06-11 00:12] LABS: TROPONIN-I < 0.012 ng/ml (0.00-0.12)
[2017-06-11 00:22] LABS: METAMYELOCYTES %M 1 % (0-0)
[2017-06-11 00:32] LABS: LYMPHOCYTES # 7.1 10^3/ul (0.8-2.9); MONOCYTE # 0.9 10^3/ul (0.3-0.9); NEUTROPHIL # 3.9 10^3/ul (1.6-7.5)
--- NOTE | 2017-06-11 00:35 | ERA ---
ER Documentation Chief Complaint Date/Time DATE: 06/11/17 TIME: 00:33 Chief Complaint chest pain x 2 days HPI 72-year-old male comes in with chest pain for the past 2 days progressively worse. Mild to moderate intensity no exacerbating relieving factors. No fevers no chills. Patient has history of severe anemia secondary to myeloproliferative disease. Patient was told he needs a blood transfusion by his primary care physician. ROS All systems reviewed and are negative except as per history of present illness. Medications Home Meds Active Scripts Sucralfate (Carafate) 1 Gm Tablet, 1 GM PO QID for 30 Days, TAB Prov:CHARLY LAWRENCE 02/15/17 Potassium Chloride* (Klor-Con*) 8 Meq Tablet.sa, 8 MEQ PO DAILY for 30 Days Prov:CHARLY LAWRENCE 02/15/17 Levothyroxine Sodium* (Synthroid*) 50 Mcg Tablet, 50 MCG PO DAILY@06 for 30 Days , TAB Prov:CHARLY LAWRENCE 02/15/17 Metoprolol Tartrate* (Lopressor*) 25 Mg Tab, 25 MG PO BID for 30 Days, TAB 2 Refills Prov:CHARLY LAWRENCE 02/15/17 Reported Medications Esomeprazole Magnesium (Nexium 24Hr) 22.3 Mg Capsule.dr, 22.3 MG PO BID, #30 CAP 04/10/17 Atorvastatin Calcium (Atorvastatin Calcium) 10 Mg Tablet, 10 MG PO QHS, #30 TAB 04/10/17 Metformin Hcl* (Metformin Hcl*) 500 Mg Tablet, 500 MG PO WITH BREAKFAST DINNE, # 30 TAB 04/10/17 Famotidine* (Famotidine*) 20 Mg Tablet, 20 MG PO DAILY, #30 TAB 04/10/17 Propranolol Hcl* (Propranolol Hcl*) 10 Mg Tablet, 10 MG PO BID, TAB 04/10/17 Docusate Sodium* (Colace*) 250 Mg Capsule, 250 MG PO BID, #60 CAP 04/10/17 Hydrocodone/Acetaminophen ([place] 10-325 Tablet) 1 Each Tablet, 1 EACH PO Q6 Y for PAIN, TAB 04/10/17 Furosemide* (Furosemide*) 40 Mg Tablet, 40 MG PO DAILY, TAB 04/10/17 Allergies Allergies: Coded Allergies: No Known Allergy (Unverified , 06/03/17) PMhx/Soc History of Surgery: No Anesthesia Reaction: No Hx Neurological Disorder: No Hx Respiratory Disorders: No Hx Cardiac Disorders: Yes (HTN) Hx Psychiatric Problems: No Hx Miscellaneous Medical Probl: Yes (LOW HGB GETS BLOOD TRANSFUSION EVERY 2 WEEKS) Hx Alcohol Use: No Hx Substance Use: No Hx Tobacco Use: No Smoking Status: Never smoker Physical Exam Vitals Vital Signs Date Time Temp Pulse Resp B/P Pulse Ox O2 Delivery O2 Flow Rate FiO2 06/10/17 23:31 98.7 84 17 118/68 98 Room Air 06/10/17 22:49 Nasal Cannula 06/10/17 21:52 98.6 95 20 118/61 100 Physical Exam Const: [] Head: Atraumatic Eyes: Normal Conjunctiva ENT: Normal External Ears, Nose and Mouth. Neck: Full range of motion..~ No meningismus. Resp: Clear to auscultation bilaterally Cardio: Regular rate and rhythm, no murmurs Abd: Soft, non tender, non distended. Normal bowel sounds Skin: No petechiae or rashes Back: No midline or flank tenderness Ext: No cyanosis, or edema Neur: Awake and alert Psych: Normal Mood and Affect Result Diagram: 06/10/17230606/10/172306 Results 24 hrs Laboratory Tests Test 06/10/17 23:07 White Blood Count 12.210^3/ul Red Blood Count 2.2910^6/ul Hemoglobin 6.2g/dl Hematocrit 19.2% Mean Corpuscular Volume 83.8fl Mean Corpuscular Hemoglobin 27.1pg Mean Corpuscular Hemoglobin Concent 32.3g/dl Red Cell Distribution Width 16.8% Platelet Count 810^3/UL Mean Platelet Volume fl Neutrophils % 32.0% Lymphocytes % 58.0% Monocytes % 7.0% Eosinophils % % Basophils % % Metamyelocytes % (manual) 1% Myelocytes % (Manual) 2.010^3/ul Nucleated Red Blood Cells % % Neutrophils # 3.910^3/ul Lymphocytes # 7.110^3/ul Monocytes # 0.910^3/ul Eosinophils # 10^3/ul Basophils # 10^3/ul Metamyelocytes # 0.110^3/ul Myelocytes # 0.210^3/ul Prothrombin Time 13.9Sec Prothrombin Time Ratio 1.1 INR International Normalized Ratio 1.07 Activated Partial Thromboplast Time 41.9Sec Sodium Level 144mmol/L Potassium Level 3.4mmol/L Chloride Level 102mmol/L Carbon Dioxide Level 27mmol/L Anion Gap 18 Blood Urea Nitrogen 33mg/dl Creatinine 1.95mg/dl Glucose Level 101mg/dl Calcium Level 8.6mg/dl Troponin I < 0.012ng/ml Procedures/MDM EKG: Rate/Rhythm: Normal Sinus Rhythm QRS, ST, T-waves: No changes consistent w/ acute ischemia Impression: No evidence of ischemia or arrhythmia Chest X-ray 1V Interpreted by me: Soft Tissue: No acute abnormalities Bones: No acute abnormalities Mediastinum/Cardiac Silhouette/Lungs: No acute abnormalities Patient's symptoms are concerning for cardiac cause will require inpatient workup and continuous monitoring. Further w/u for ischemia, arrhythmia, PE or dissection will be deferred to the inpatient team. Patient will be typed and crossed and transfused 2 units here Accepting Care Team: Current data and ongoing care discussed. Time: 12 AM Primary Provider: Hospitalist Consulting: MARLENE Outstanding Data: none Critical Care: Time: 45 minutes Treatments/Evaluations: Close monitoring and treatment of unstable vital signs, cardiorespiratory, and neurologic status, while maintaining tight balance of fluid, respiratory, and cardiac interventions. This time is independent of any separate billable procedural time Departure Diagnosis: Primary Impression: Chest pain Qualified Code: R07.9 - Chest pain, unspecified type Additional Impressions: Anemia Qualified Code: D64.9 - Anemia, unspecified type Renal failure Condition: Serious FABIANA DURHAM Jun 11, 2017 00:35
[2017-06-11] MEDS ORDERED: DONE5TAB32 PO (01:19)
[2017-06-11] MEDS ORDERED: GABA100C14 PO (01:19)
[2017-06-11] MEDS ORDERED: NACL 0.9% 3 ML SYG IV SCH (01:30)
[2017-06-11] MEDS ORDERED: BISACODYL (EC) 5 MG TAB PO PRN (01:30)
[2017-06-11] MEDS ORDERED: ONDANSETRON 4 MG INJ IV PRN (01:30)
[2017-06-11] MEDS ORDERED: morphine 2 MG INJ IV PRN (01:30)
[2017-06-11] MEDS ORDERED: DOCUSATE SODIUM 100 MG CAP PO PRN (01:30)
[2017-06-11] MEDS ORDERED: ACETAMINOPHEN 325 MG TAB PO PRN (01:30)
--- NOTE | 2017-06-11 02:07 | HP ---
Date/Time of Note Date/Time of Note DATE: 06/11/17 TIME: 02:05 Assessment/Plan VTE Prophylaxis VTE Prophylaxis Intervention: SCD's Lines/Catheters IV Catheter Type [facility]from [facility]): [place] [facility] Assessment/Plan Chief Complaint/Hosp Course This is a 72-year-old male being admitted to the telemetry floor for: #1 chest pain: Rule out ACS versus symptomatic anemia. 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 At the current time will trend troponins will check echocardiogram. And will obtain a cardiology consult. #2 Symptomatic anemia: Secondary to CML/myelodysplastic syndrome. History of pancytopenia. No overt signs of bleeding at this time. Hemoglobin 6.2 with platelets of 8. Will transfuse 2 units of PRBCs and 1 units of platelets. Will get mens locker room attendant/oncologist follow. Monitor CBC #3. Multiple right upper lobe nodules: These have been evident on previous imaging examinations. He was recommended to have a repeat CT scan for follow- up. CT scan of the chest will be ordered. #4 Leukocytosis: Patient at the current time is afebrile and there are no signs of infection at this time. This likely could be reactive in nature. Will continue to monitor white blood cell count and monitor patient for any hemodynamic instability or fevers. #5 Cardiomyopathy. Will resume patient on his cardiovascular medications, we will also obtain a cardiology consult secondary to patient's chest pain. #6 history of hypothyroidism. Continue on Synthroid medication, check TSH level. #7 history of diabetes. Hold oral medication at this time, put patient on insulin sliding scale. #8 essential hypertension. Continue antihypertensives and adjust as needed #9 hyperlipidemia. Continue on statin medication #10 DVT and GI prophylaxis: SCDs, Protonix Further treatment strategy will be implemented as per the clinical course Problems: HPI/ROS Admit Date/Time Admit Date/Time Hx of Present Illness Chief complaint: This is a 72-year-old male comes in with chest pain for the past 2 days progressively worse. mild to moderate intensity no exacerbating relieving factors. No fevers no chills. Patient has history of severe anemia secondary to myelodysplastic syndrome. Patient was told he needs a blood transfusion by his primary care physician. Patient does have a history of CML as well as myelodysplastic syndrome. Upon examination today he was found to be pancytopenic with hemoglobin of 6.2 and platelet count of 8. He of note does follow-up with Dr. Pryor as his oncologist. Patient currently right now does not have any chest pain. Allergies: NKDA Medications: See JAN ANGELIQUE Const: As per HPI Eyes : No pain discharge or redness or change in visual acuity ENT: No pain, sore throat, congestion, congestion, dysphagia or discharge Respiratory: No shortness of breath, cough, sputum, wheezing, or pleuritic pain Cardiovascular: As per HPI GI : no change in appetite, abdominal pain, nausea, vomiting, diarrhea, constipation, or change in the color his stool Genitourinary: No dysuria, hematuria, flank pain , discharge or CVA tenderness Musculoskeletal: As per HPI Skin: No rash, bruising or hives Neuro: No headache, dizziness, syncope, seizure, focal weakness Endocrine: No polyuria, polydipsia, temperature intolerance Psych: No hallucination, depression, anxiety or suicidal ideation PMH/Family/Social Past Medical History CML Myelodysplastic syndrome NSTEMI type II Pancytopenia Acute kidney injury Cardiomyopathy Pulmonary hypertension History of possible mass in the right mainstem bronchus as well as right upper lung lobe Hypothyroidism Diabetes mellitus Past Surgical History History of previous stomach surgery Family History Significant Family History: no pertinent family hx Social History Alcohol Use: none Smoking Status: Never smoker Drug Use: none Exam/Review of Systems Vital Signs Vitals Vital Signs Date Time Temp Pulse Resp B/P Pulse Ox O2 Delivery O2 Flow Rate FiO2 06/11/17 01:27 98.6 82 18 122/62 98 Room Air Exam Exam General: Patient is lying in bed in no acute distress. HEENT: Atraumatic, normocephalic. The pupils are equal, round and reactive. Extraocular motor are intact Neck: Supple with full range of motion. No rigidity or meningismus Chest: Nontender Lungs: Clear to auscultation bilaterally no crackles rales or wheezing Heart: Normal S1-S2, Regular rhythm and rate. No overt murmurs appreciated Abdomen: Soft , nontender, nondistended , bowel sounds are present. No guarding no rebound tenderness , No masses or organomegaly. No costovertebral temporal angle mass Extremities: Normal to inspection, no edema no cyanosis Neurologic: Normal mental status, speech normal, cranial nerves II through XII are intact, motor and sensory are intact, no focal weakness Additional Comments PROCEDURE: XR Chest. CLINICAL INDICATION: Chest pain. TECHNIQUE: Single frontal view of the chest. COMPARISON: CTA chest dated 02/22/2017 and 04/08/2016 with multiple intervening chest radiographs. Plain film chest dated 04/10/2017 FINDINGS: Cardiomegaly. Spiculated nodule in the right upper lung measures about 11 mm. Additional lung nodules are seen in the right upper lobe. These findings are similar in appearance to prior examination dated 02/22/2017 and 04/10/2017. These findings are without significant plain film changes since examination dated 04/08/2016. A follow-up CT examination of the chest would be of further use, with comparison to CTA chest dated 02/22/2017. Changes of centrolobular emphysema. Previously seen left lung base atelectasis and air space disease is substantially resolved with mild residual discoid atelectasis. No signs of pleural fluid or pneumothorax are seen. The osseous structures and soft tissues are unremarkable. IMPRESSION: 1. Multiple right upper lobe nodule is again seen, without plain film changes since 04/08/2016. 2. A follow-up CT examination would be of further use, with comparison to CT chest dated [id number]. 3. Previously seen left lung base atelectasis versus airspace disease is substantially resolved over interval with mild persistent discoid atelectasis. RPTAT: [facility] Physician Elham Date Time Electronically viewed and signed by Physician Elham on 06/10/2017 23:14 EKG: Rate/Rhythm: Normal Sinus Rhythm QRS, ST, T-waves: No changes consistent w/ acute ischemia Impression: No evidence of ischemia or arrhythmia Labs Result Diagram: 06/10/17230606/10/172306 Medications Medications Current Medications Ondansetron HCl (Zofran Inj) 4 mg Q6H PRN IV NAUSEA AND/OR VOMITING; Start at 01:30 Acetaminophen (Tylenol Tab) 650 mg Q6H PRN PO PAIN LEVEL 1-3 OR FEVER; Start at 01:30 Morphine Sulfate (morphine) 2 mg Q4H PRN IV PAIN LEVEL 7-10; Start 06/11/17 at 01:30 Docusate Sodium (Colace) 100 mg Q12H PRN PO CONSTIPATION; Start 06/11/17 at 01: 30 Bisacodyl (Dulcolax) 5 mg DAILY PRN PO CONSTIPATION; Start 06/11/17 at 01:30 Pantoprazole (Protonix Iv) 40 mg DAILY@06 IV ; Start 06/11/17 at 06:00 Atorvastatin Calcium (Lipitor) 10 mg QHS PO ; Start 06/11/17 at 21:00; Status UNV Levothyroxine Sodium (Synthroid) 50 mcg DAILY@06 PO ; Start 06/11/17 at 06:00 Metoprolol Tartrate (Lopressor) 25 mg BID PO ; Start 06/11/17 at 09:00; Status UNV Potassium Chloride (Micro-K) 8 meq DAILY PO ; Start 06/11/17 at 09:00; Status UNV Propranolol HCl (Inderal) 10 mg BID PO ; Start 06/11/17 at 09:00; Status UNV Sucralfate 1 gm 1 gm QID PO ; Start 06/11/17 at 09:00; Status UNV Sodium Chloride (NS) 1,000 ml @ 70 mls/hr [id number] IV ; Start 06/11/17 at 02:00 JEAN PADILLA Jun 11, 2017 02:07
[2017-06-11] MEDS ORDERED: DEXTROSE 50% 50 ML SYRINGE IV PRN ×2 (02:30)
[2017-06-11] MEDS ORDERED: GLUCOSE GEL 15 GRAM TUBE PO PRN ×2 (02:30)
[2017-06-11] MEDS ORDERED: GLUCOSE GEL 15 GRAM TUBE BUCCAL PRN (02:30)
[2017-06-11] MEDS ORDERED: GLUCAGON 1 MG INJ IM PRN (02:30)
[2017-06-11] MEDS: SOD CHLORIDE 0.9% 1,000 ML IV SCH ×2 (02:49→16:18)
[2017-06-11] MEDS ORDERED: SALINE 0.65% 45 ML NAS SPRAY NASAL PRN (04:00)
[2017-06-11] MEDS: PANTOPRAZOLE 40 MG INJ IV SCH (05:26)
[2017-06-11] MEDS: LEVOTHYROXINE 50 MCG TAB PO SCH (06:10)
[2017-06-11 06:40] LABS: ANISOCYTOSIS 2+ (0-0); BLAST% (M) 13 % (0-0); EOSINOPHILS % (M) 1 % (0-7); ERYTHROBLAST% (NRBC) (M) 6 % (0-0); HYPOCHROMASIA 1+ (0-0); MICROCYTOSIS 2+ (0-0); MONOCYTES % (M) 29 % (0-11); PLATELET ESTIMATE DECREASED; POIKILOCYTOSIS 2+ (0-0); POLYCHROMASIA 3+ (0-0)
[2017-06-11] MEDS: INSULIN ASPART [NOVOLOG] 3 ML PEN SC SCH ×4 (08:00→21:00)
[2017-06-11] MEDS: SUCRALFATE 1 GM TAB PO SCH ×4 (08:52→21:04)
[2017-06-11] MEDS: POTASSIUM CHLORIDE (SR) 8 MEQ CAP PO SCH (08:53)
[2017-06-11] MEDS: DONEPEZIL 5 MG TAB PO SCH (08:53)
[2017-06-11] MEDS: GABAPENTIN 100 MG CAP PO SCH (08:53)
[2017-06-11] MEDS ORDERED: PROPRANOLOL 10 MG TAB PO SCH (09:00)
[2017-06-11 10:35] LABS: CREATINE KINASE 44 IU/L (23-200)
--- NOTE | 2017-06-11 10:42 | RADRPT ---
PROCEDURE: CT Chest without contrast. CLINICAL INDICATION: Pulmonary nodules identified on chest x-ray. TECHNIQUE: CT scan of the chest without contrast was performed on a multidetector high-resolution CT scanner. Coronal and sagittal reformatted images were obtained from the axial source images. The total exam C TDI equals 8.45 mGy and the total exam DLP equals 357.64 mGy-cm. One or more of the following dose reduction techniques were used: - Automated exposure control. - Adjustment of the mA and/or kV according to patient size. - Use of iterative reconstruction technique. COMPARISON: Chest x-ray dated 06/10/2017. CT angiography of the chest dated 02/19/2017. Chest CT dated 7. FINDINGS: Lungs, pleura, airways, and thoracic inlet: There is moderate to severe centrilobular emphysema. There are calcified nodules with associated sc arring and architectural distortion in the surrounding lung parenchyma in the right upper lobe, cons istent with prior granulomatous disease. there are additional calcified nodules in the left upper lo be there is interlobular septal thickening at both lung bases. There is dependent change and subsegm ental atelectasis at both lung bases. There is bilateral peribronchial thickening. There are trace bilateral pleural effusions. There is no pneumothorax. There is minimal debris within the distal t rachea. The remaining tracheobronchial tree is widely patent. Cardiovascular system, mediastinum, and lymphatics: The heart is enlarged and there is a small pericardial effusion measuring 1.6 cm in maximal thicknes s, mildly increased in size when compared with the prior. There are multivessel coronary artery calc ifications. There are atherosclerotic changes of the aorta, which is nonaneurysmal. There are promin ent bilateral axillary lymph nodes. There is a AP window, paratracheal, and subcarinal adenopathy. Visualized upper abdomen: The visualized spleen is markedly enlarged. There is a 11 mm hemorrhagic or proteinaceous cyst at t he visualized upper pole of the left kidney. There is a small hiatal hernia. Musculoskeletal system: There are no concerning osseous lesions. IMPRESSION: 1. Cardiomegaly with mild pulmonary edema, trace bilateral effusions, and a small pericardial effus ion, which is enlarged when compared with the prior. Correlate clinically for CHF. 2. Calcified nodules with associated surrounding scarring and architectural distortion in the right upper lobe with additional calcified nodules in both lungs, consistent with prior granulomatous dis ease. This occurs in the background of moderate to severe centrilobular emphysema. 3. Nonspecific mediastinal adenopathy. 4. Minimal debris within the distal trachea, significantly improved when compared with the prior ex amination. 5. Multivessel coronary artery calcifications and atherosclerotic changes of the aorta. 6. Splenomegaly, partially visualized. 7. Hemorrhagic or proteinaceous cyst measuring 11 mm at the upper pole of the visualized left saran [place] RPTAT: GG .Neil Esteves MD, MD Date Time Electronically viewed and signed by .Neil Esteves MD, MD on 06/11/2017 10:41 .P/
[2017-06-11 10:51] LABS: TROPONIN-I < 0.012 ng/ml (0.00-0.12)
[2017-06-11 11:11] LABS: CK-MB 0.36 ng/ml (0.0-2.4)
--- NOTE | 2017-06-11 13:57 | CONS ---
Date/Time of Note Date/Time of Note DATE: 06/11/17 TIME: 13:53 Assessment/Plan Assessment/Plan Additional Assessment/Plan Acute blood loss anemia Severe symptomatic anemia Chest pain and shortness of breath, improved Leukemia Hypertension -Patient with improvement in symptoms with blood transfusion. Chest pain and shortness of breath likely secondary to severe anemia. Patient with nuclear cardiac perfusion study March 2016 with normal perfusion and ejection fraction 65% . Given his severe anemia and thrombocytopenia, aspirin will be contraindicated. Of importance is blood transfusion to improve anemia. Patient also on propanolol as well as Lopressor for unknown etiology. Would DC propanolol at the current time. Consultation Date/Type/Reason Admit Date/Time Type of Consultation: cv Reason for Consultation Chest pain and shortness of breath Hx of Present Illness This is a 72-year-old male with past medical history of leukemia receiving multiple blood transfusions, hypertension who presents with worsening fatigue, shortness of breath and chest discomfort. Patient denies any dizziness or lightheadedness or palpitations. Patient with similar symptoms whenever his anemia would worsen. Patient found to be severely anemic with hemoglobin in the sixes. He is undergoing blood transfusion. He currently denies any chest discomfort or shortness of breath and tells me he is feeling much better. Denies any dizziness or lightheadedness. Unable to be performed at the current time Past Medical History Leukemia Hypertension Family History Significant Family History: no pertinent family hx Social History Alcohol Use: none Smoking Status: Never smoker Drug Use: none Exam/Review of Systems Vital Signs Vitals Vital Signs Date Time Temp Pulse Resp B/P Pulse Ox O2 Delivery O2 Flow Rate FiO2 06/11/17 13:27 79 06/11/17 11:50 98.4 18 118/55 98 06/11/17 01:27 Room Air Intake and Output 06/10/17 06/10/17 06/11/17 15:00 23:00 07:00 Intake Total 320 ml Balance 320 ml Exam No apparent distress, follows commands Constitutional: alert, oriented Head: normocephalic Neck: supple Respiratory: other (Coarse breath sounds bilaterally, no wheezing) Cardiovascular: other (S1-S2 heard), regular rate and rhythm, systolic murmur Gastrointestinal: bowel sounds, non-tender, other (No guarding), soft Extremities: other (No edema) Results Result Diagram: 7/25/17 2307 7/25/17 2307 Results 24 hrs Laboratory Tests Test 06/10/17 23:07 06/11/17 07:49 06/11/17 09:46 06/11/17 11:56 White Blood Count 12.2 #H Red Blood Count 2.29 L Hemoglobin 6.2 *L Hematocrit 19.2 L Mean Corpuscular Volume 83.8 Mean Corpuscular Hemoglobin 27.1 L Mean Corpuscular Hemoglobin Concent 32.3 Red Cell Distribution Width 16.8 H Platelet Count 8 #*L Mean Platelet Volume Neutrophils % 32.0 L Segmented Neutrophils % (Manual) 29 L Lymphocytes % 58.0 H Lymphocytes % (Manual) 24 Monocytes % 7.0 Monocytes % (Manual) 29 H Eosinophils % Eosinophils % (Manual) 1 Basophils % Metamyelocytes % (manual) 1 H Myelocytes % (Manual) 2.0 H Blast Cells % (Manual) 13 H Nucleated Red Blood Cells % 6 H Neutrophils # 3.9 Absolute Lymphocytes (Manual) 2.9 Lymphocytes # 7.1 H Monocytes # 0.9 Absolute Monocytes (Manual) 3.5 H Eosinophils # Basophils # Metamyelocytes # 0.1 H Myelocytes # 0.2 H Smudge Cells % 5 H Platelet Estimate DECREASED Polychromasia 3+ Hypochromasia 1+ Poikilocytosis 2+ Anisocytosis 2+ Microcytosis 2+ Macrocytosis 1+ Prothrombin Time 13.9 Prothrombin Time Ratio 1.1 INR International Normalized Ratio 1.07 Activated Partial Thromboplast Time 41.9 H Sodium Level 144 Potassium Level 3.4 L Chloride Level 102 Carbon Dioxide Level 27 Anion Gap 18 H Blood Urea Nitrogen 33 H Creatinine 1.95 H Glucose Level 101 Calcium Level 8.6 Troponin I < 0.012 < 0.012 Bedside Glucose 104 95 Creatine Kinase 44 Creatine Kinase Index 0.8 Creatinine Kinase MB (Mass) 0.36 Thyroid Stimulating Hormone (TSH) 12.800 H Medications Medications Current Medications Ondansetron HCl (Zofran Inj) 4 mg Q6H PRN IV NAUSEA AND/OR VOMITING; Start at 01:30 Acetaminophen (Tylenol Tab) 650 mg Q6H PRN PO PAIN LEVEL 1-3 OR FEVER; Start at 01:30 Morphine Sulfate (morphine) 2 mg Q4H PRN IV PAIN LEVEL 7-10; Start 06/11/17 at 01:30 Docusate Sodium (Colace) 100 mg Q12H PRN PO CONSTIPATION; Start 06/11/17 at 01: 30 Bisacodyl (Dulcolax) 5 mg DAILY PRN PO CONSTIPATION; Start 06/11/17 at 01:30 Pantoprazole (Protonix Iv) 40 mg DAILY@06 IV Last administered on 06/11/17 05: 26; Admin Dose 40 MG; Start 06/11/17 at 06:00 Atorvastatin Calcium (Lipitor) 10 mg QHS PO ; Start 06/11/17 at 21:00 Levothyroxine Sodium (Synthroid) 50 mcg DAILY@06 PO Last administered on 06:10; Admin Dose 50 MCG; Start 06/11/17 at 06:00 Metoprolol Tartrate (Lopressor) 25 mg BID PO ; Start 06/11/17 at 09:00; Status UNV Potassium Chloride (Micro-K) 8 meq DAILY PO Last administered on 06/11/17 08: 53; Admin Dose 8 MEQ; Start 06/11/17 at 09:00 Propranolol HCl (Inderal) 10 mg BID PO ; Start 06/11/17 at 09:00; Status UNV Sucralfate 1 gm 1 gm QID PO Last administered on 06/11/17 12:22; Admin Dose 1 GM; Start 06/11/17 at 09:00 Sodium Chloride (NS) 1,000 ml @ 70 mls/hr [id number] IV Last administered on 06/11 02:49; Admin Dose 70 MLS/HR; Start 06/11/17 at 02:00 Diagnostic Test (Pha) (Accu-Chek) 1 ea 02 XX ; Start 06/12/17 at 02:00 Miscellaneous Information 1 ea NOTE XX ; Start 06/11/17 at 02:30 Glucose (Glutose) 15 gm Q15M PRN PO DECREASED GLUCOSE; Start 06/11/17 at 02:30 Glucose (Glutose) 22.5 gm Q15M PRN PO DECREASED GLUCOSE; Start 06/11/17 at 02: 30 Dextrose (D50w Syringe) 25 ml Q15M PRN IV DECREASED GLUCOSE; Start 06/11/17 at 02:30 Dextrose (D50w Syringe) 50 ml Q15M PRN IV DECREASED GLUCOSE; Start 06/11/17 at 02:30 Glucagon (Glucagen) 1 mg Q15M PRN IM DECREASED GLUCOSE; Start 06/11/17 at 02:30 Glucose (Glutose) 15 gm Q15M PRN BUCCAL DECREASED GLUCOSE; Start 06/11/17 at 02 :30 Donepezil HCl (Aricept) 5 mg DAILY PO Last administered on 06/11/17 08:53; Admin Dose 5 MG; Start 06/11/17 at 09:00 Gabapentin (Neurontin) 100 mg DAILY PO Last administered on 06/11/17 08:53; Admin Dose 100 MG; Start 06/11/17 at 09:00 Sodium Chloride (Deep Sea) 1 spray BID PRN NASAL DRY NOSE; Start 06/11/17 at 04 :00 Miscellaneous Information (*Order Clarification Bulletin) MEDICATION REQUIRES CLARIFICATI... Q8H XX ; Start 06/11/17 at 04:30 Procedures Procedures ECG demonstrates sinus rhythm at 85 bpm, left bundle branch block, nonspecific STT wave abnormalities Paul Dixon DO Jun 11, 2017 13:57
[2017-06-11] MEDS: METOPROLOL 25 MG TAB PO SCH ×2 (15:00→21:04)
--- NOTE | 2017-06-11 15:27 | RADRPT ---
Echocardiogram Report Patient Name: FRANKI LAWRENCE Gender: Male Date: 1945 Study Date: 11-Jun-2017 [employer] Custodian: Delbert Liz [facility] Location: 5557 Ref. Physician: JEAN PADILLA Quality: Good Procedures: Transthoracic echocardiogram with complete 2D, M-Mode, and doppler examination. Indications: Chest Pain. 2D/M Mode Doppler Measurement Value Normal Ranges Measurement Value Normal Ranges LVIDd 2D 5.1 3.5 - 5.6 cm IDALIA Vmax 1.5 cm2 LVIDs 2D 3.2 2.1 - 4.1 cm IDALIA VTI 1.5 cm2 LVPWd 2D 0.9 0.6 - 1.1 cm AV Mean Travis 1.5 m/sec IVSd 2D 0.9 0.6 - 1.1 cm AV Mean PG 10.8 mmHg AoR Diam 2D 2.9 2.0 - 3.7 cm AV Peak Travis 2.4 m/sec EDV 2D 125.3 cm3 AV Peak PG 22.2 mmHg ESV 2D 31.8 cm3 AV VTI 49.8 cm LA Dimen 2D 4.3 2.3 - 4.0 cm LVOT Mean Travis 0.7 m/sec LVOT Diam 2.1 cm LVOT Mean PG 2.5 mmHg LVOT Peak Travis 1.0 m/sec LVOT Peak PG 4.0 mmHg LVOT VTI 22.8 cm MV E Peak Travis 1.1 m/sec MV A Peak Travis 1.2 m/sec MV E/A 0.9 MV Decel Time 143 msec MV Decel [place] 8 MV E/A 0.9 TR Peak Travis 2.8 m/sec TR Peak PG 30.7 mmHg RVSP 34.0 mmHg Findings Left Ventricle: Lower limits of normal systolic function. Normal left ventricular cavity size. Normal left ventricular wall thickness. Ejection fraction is visually estimated at 50 %. Tissue Doppler/Mitral Doppler indices are consistent with impaired relaxation (Stage I diastolic dysfunction). Right Ventricle: Normal right ventricular size. Normal right ventricular systolic function. Left Atrium: There is mild enlargement of left atrium. Right Atrium: The right atrium is normal in size. Mitral Valve: Mitral valve leaflets appear mildly thickened. Mild mitral annular calcification. Mild mitral valve regurgitation. Aortic Valve: Aortic sclerosis without stenosis. Trace aortic valve regurgitation. Tricuspid Valve: Normal appearance of the tricuspid valve. Estimated peak PA systolic pressure 34 mmHg. There is mild tricuspid regurgitation. Pulmonic Valve: Normal pulmonic valve appearance. Pericardium: Trivial pericardial effusion. Aorta: Normal aortic root. IVC: Normal size and normal respiratory collapse consistent with normal right atrial pressure. Conclusions 1.Lower limits of normal systolic function. Normal left ventricular cavity size. Normal left ventricular wall thickness. Ejection fraction is visually estimated at 50 %. Tissue Doppler/Mitral Doppler indices are consistent with impaired relaxation (Stage I diastolic dysfunction). 2.Normal right ventricular size. Normal right ventricular systolic function. 3.There is mild enlargement of left atrium. 4.The right atrium is normal in size. 5.Mild mitral valve regurgitation. 6.Aortic sclerosis without stenosis. Trace aortic valve regurgitation. 7.Estimated peak PA systolic pressure 34 mmHg. There is mild tricuspid regurgitation. 8.Trivial pericardial effusion. Electronically Signed By: Paul Dixon 11-Jun-2017 15:25:51 -0700 Patient Name: FRANKI LAWRENCE Study Date: 11-Jun-2017 [id number]
[2017-06-11 15:48] LABS: CREATINE KINASE 42 IU/L (23-200)
[2017-06-11 16:09] LABS: CK-MB 0.32 ng/ml (0.0-2.4); TROPONIN-I < 0.012 ng/ml (0.00-0.12)
[2017-06-11] MEDS: ATORVASTATIN 10 MG TAB PO SCH (21:04)
[2017-06-12] VITALS (13 sets, daily range): BP systolic 121–141; BP diastolic 60–74; PULSE 70–76; RESP 18–19
[2017-06-12] MEDS: ACCU-CHEK XX SCH (02:00)
[2017-06-12] MEDS: LEVOTHYROXINE 50 MCG TAB PO SCH (06:16)
[2017-06-12] MEDS: PANTOPRAZOLE 40 MG INJ IV SCH (06:16)
[2017-06-12] MEDS: SOD CHLORIDE 0.9% 1,000 ML IV SCH (06:17)
[2017-06-12 07:31] LABS: ABNORMAL IP MESSAGE 1; HEMATOCRIT 20.8 % (42.0-52.0); MEAN CORPUSCULAR HEMOGLOBIN 27.8 pg (29.0-33.0); MEAN CORPUSCULAR HGB CONC 33.2 g/dl (32.0-37.0); MEAN CORPUSCULAR VOLUME 83.9 fl (82.0-101.0); POSITIVE DIFF @See below; RED BLOOD COUNT 2.48 10^6/ul (4.70-6.10); RED CELL DISTRIBUTION WIDTH 15.9 % (11.5-14.5); WHITE BLOOD COUNT 9.2 10^3/ul (4.8-10.8)
[2017-06-12 07:43] LABS: HEMOGLOBIN 6.9 g/dl (14.0-18.0); PLATELET COUNT 10 10^3/UL (140-415)
[2017-06-12] MEDS: INSULIN ASPART [NOVOLOG] 3 ML PEN SC SCH ×4 (08:00→22:26)
[2017-06-12 08:40] LABS: ALBUMIN 3.2 g/dl (3.3-4.9); ALBUMIN/GLOBULIN RATIO 0.6; BILIRUBIN,INDIRECT 0.3 mg/dl (0-1.1); BILIRUBIN,TOTAL 0.3 mg/dl (0.2-1.3); CREATININE 1.67 mg/dl (0.61-1.24); MAGNESIUM 1.6 mg/dl (1.7-2.5); POTASSIUM 3.7 mmol/L (3.5-5.1); TOTAL PROTEIN 8.5 g/dl (6.1-8.1)
[2017-06-12] MEDS: SUCRALFATE 1 GM TAB PO SCH ×4 (09:48→22:17)
[2017-06-12] MEDS: GABAPENTIN 100 MG CAP PO SCH (09:48)
[2017-06-12] MEDS: DONEPEZIL 5 MG TAB PO SCH (09:48)
[2017-06-12] MEDS: POTASSIUM CHLORIDE (SR) 8 MEQ CAP PO SCH (09:50)
[2017-06-12] MEDS: METOPROLOL 25 MG TAB PO SCH ×2 (09:51→22:18)
[2017-06-12] MEDS ORDERED: SOD CHLORIDE 0.9% 250 ML IV* ONE (10:05)
[2017-06-12 10:06] LABS: ANISOCYTOSIS 1+ (0-0); BLAST% (M) 5 % (0-0); EOSINOPHILS % (M) 1 % (0-7); ERYTHROBLAST% (NRBC) (M) 1 % (0-0); GIANT THROMBO% (M) 2 % (0-0); MICROCYTOSIS 1+ (0-0); MONOCYTES % (M) 30 % (0-11); PLATELET ESTIMATE SIG DECREASED; POLYCHROMASIA 3+ (0-0); PROMYELOCYTES #M 0 # (0-0); PROMYELOCYTES % (M) 1 % (0-0); SPHEROCYTES 1+ (0-0)
--- NOTE | 2017-06-12 11:32 | PN ---
Date/Time of Note Date/Time of Note DATE: 06/12/17 TIME: 11:27 Assessment/Plan VTE Prophylaxis VTE Prophylaxis Intervention: SCD's Lines/Catheters IV C[facility]ter Type (from [facility]): Peripheral IV Urinary Cath still in place: No Assessment/Plan Chief Complaint/Hosp Course Assessment and plan: 72-year-old male being admitted to the telemetry floor for: #1 chest pain: Rule out ACS versus symptomatic anemia. 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 Seen by cardiology team. - At the current time will trend troponins, follow-up echocardiogram results. #2 Symptomatic anemia: Secondary to CML/myelodysplastic syndrome. History of pancytopenia. No overt signs of bleeding at this time. Hemoglobin 6.2 with platelets of 8 on admission. -Awaiting transfusion of 2 units of PRBCs and 1 units of platelets. -Follow-up certified surgical tech/first assistant/oncologist recommendation, and posttransfusion CBC #3. Multiple right upper lobe nodules: These have been evident on previous imaging examinations. He was recommended to have a repeat CT scan for follow- up (was performed, see results below) -Monitor for now #4 Leukocytosis: Improved, patient at the current time is afebrile and there are no signs of infection at this time. This likely could be reactive in nature. - Will continue to monitor white blood cell count and monitor patient for any hemodynamic instability or fevers. #5 Cardiomyopathy. Will resume patient on his cardiovascular medications, follow-up cardiology consult recommendation secondary to patient's chest pain. #6 history of hypothyroidism. Continue on Synthroid medication, follow-up TSH level. #7 history of diabetes. Hold oral medication at this time, put patient on insulin sliding scale. #8 essential hypertension. Continue antihypertensives and adjust as needed #9 hyperlipidemia. Continue on statin medication #10 DVT and GI prophylaxis: SCDs, Protonix Further treatment strategy will be implemented as per the clinical course Problems: Subjective 24 Hr Interval Summary Free Text/Dictation Patient had no acute events overnight. Awaiting to get blood transfusion today. Exam/Review of Systems Vital Signs Vitals Vital Signs Date Time Temp Pulse Resp B/P Pulse Ox O2 Delivery O2 Flow Rate FiO2 06/12/17 11:22 98.0 73 18 130/61 97 06/11/17 01:27 Room Air Intake and Output 06/11/17 06/11/17 06/12/17 15:00 23:00 07:00 Intake Total 1365 ml 550 ml Output Total 1900 ml 1000 ml Balance -535 ml -450 ml Exam General: Patient is lying in bed in no acute distress. HEENT: Atraumatic, normocephalic. The pupils are equal, round and reactive. Extraocular motor are intact Neck: Supple with full range of motion. No rigidity or meningismus Chest: Nontender Lungs: Clear to auscultation bilaterally no crackles rales or wheezing Heart: Normal S1-S2, Regular rhythm and rate. No overt murmurs appreciated Abdomen: Soft , nontender, nondistended , bowel sounds are present. No guarding no rebound tenderness , No masses or organomegaly. No costovertebral temporal angle mass Extremities: Normal to inspection, no edema no cyanosis Neurologic: Normal mental status, speech normal, cranial nerves II through XII are intact, motor and sensory are intact, no focal weakness Results Result Diagram: 06/12/17 07 06/12/17 0707 Results 24 hrs Laboratory Tests Test 06/11/17 11:56 06/11/17 15:05 06/11/17 17:20 06/11/17 20:53 Bedside Glucose 95 96 125 Creatine Kinase 42 Creatine Kinase Index 0.8 Creatinine Kinase MB (Mass) 0.32 Troponin I < 0.012 Test 06/12/17 05:18 06/12/17 07:07 06/12/17 08:48 Lab Scanned Report BLOOD TRANSFUSION White Blood Count 9.2 # Red Blood Count 2.48 L Hemoglobin 6.9 *L Hematocrit 20.8 L Mean Corpuscular Volume 83.9 Mean Corpuscular Hemoglobin 27.8 L Mean Corpuscular Hemoglobin Concent 33.2 Red Cell Distribution Width 15.9 H Platelet Count 10 #*L Mean Platelet Volume Neutrophils % Segmented Neutrophils % (Manual) 40 Band Neutrophils % (Manual) 3 Lymphocytes % Lymphocytes % (Manual) 20 Monocytes % Monocytes % (Manual) 30 H Eosinophils % Eosinophils % (Manual) 1 Basophils % Promyelocytes % (Manual) 1 H Blast Cells % (Manual) 5 H Nucleated Red Blood Cells % 1 H Neutrophils # Neutrophils # (Manual) 3.7 Band Neutrophils # 0.2 Absolute Lymphocytes (Manual) 1.8 Lymphocytes # Monocytes # Absolute Monocytes (Manual) 2.7 H Eosinophils # Basophils # Promyelocytes # 0 Nucleated Red Blood Cells # Thrombocytosis 2 H Platelet Estimate SIG DECREASED Polychromasia 3+ Anisocytosis 1+ Microcytosis 1+ Spherocytes 1+ Sodium Level 140 Potassium Level 3.7 Chloride Level 106 Carbon Dioxide Level 23 Anion Gap 15 Blood Urea Nitrogen 27 H Creatinine 1.67 H Glucose Level 101 Calcium Level 8.0 L Phosphorus Level 4.4 Magnesium Level 1.6 L Total Bilirubin 0.3 Direct Bilirubin 0.00 Indirect Bilirubin 0.3 Aspartate Amino Transf (AST/SGOT) 19 Alanine Aminotransferase (ALT/SGPT) 20 Alkaline Phosphatase 65 Total Protein 8.5 H Albumin 3.2 L Globulin 5.30 H Albumin/Globulin Ratio 0.60 Bedside Glucose 127 Medications Medications Current Medications Ondansetron HCl (Zofran Inj) 4 mg Q6H PRN IV NAUSEA AND/OR VOMITING; Start at 01:30 Acetaminophen (Tylenol Tab) 650 mg Q6H PRN PO PAIN LEVEL 1-3 OR FEVER; Start at 01:30 Morphine Sulfate (morphine) 2 mg Q4H PRN IV PAIN LEVEL 7-10; Start 06/11/17 at 01:30 Docusate Sodium (Colace) 100 mg Q12H PRN PO CONSTIPATION; Start 06/11/17 at 01: 30 Bisacodyl (Dulcolax) 5 mg DAILY PRN PO CONSTIPATION; Start 06/11/17 at 01:30 Pantoprazole (Protonix Iv) 40 mg DAILY@06 IV Last administered on 06/12/17 06: 16; Admin Dose 40 MG; Start 06/11/17 at 06:00 Atorvastatin Calcium (Lipitor) 10 mg QHS PO Last administered on 06/11/17 21: 04; Admin Dose 10 MG; Start 06/11/17 at 21:00 Levothyroxine Sodium (Synthroid) 50 mcg DAILY@06 PO Last administered on 06:16; Admin Dose 50 MCG; Start 06/11/17 at 06:00 Metoprolol Tartrate (Lopressor) 25 mg BID PO Last administered on 06/12/17 09: 51; Admin Dose 25 MG; Start 06/11/17 at 14:00 Potassium Chloride (Micro-K) 8 meq DAILY PO Last administered on 06/12/17 09: 50; Admin Dose 8 MEQ; Start 06/11/17 at 09:00 Sucralfate 1 gm 1 gm QID PO Last administered on 06/12/17 09:48; Admin Dose 1 GM; Start 06/11/17 at 09:00 Sodium Chloride (NS) 1,000 ml @ 70 mls/hr [id number] IV Last administered on 06/12 06:17; Admin Dose 70 MLS/HR; Start 06/11/17 at 02:00 Diagnostic Test (Pha) (Accu-Chek) 1 ea 02 XX ; Start 06/12/17 at 02:00 Miscellaneous Information 1 ea NOTE XX ; Start 06/11/17 at 02:30 Glucose (Glutose) 15 gm Q15M PRN PO DECREASED GLUCOSE; Start 06/11/17 at 02:30 Glucose (Glutose) 22.5 gm Q15M PRN PO DECREASED GLUCOSE; Start 06/11/17 at 02: 30 Dextrose (D50w Syringe) 25 ml Q15M PRN IV DECREASED GLUCOSE; Start 06/11/17 at 02:30 Dextrose (D50w Syringe) 50 ml Q15M PRN IV DECREASED GLUCOSE; Start 06/11/17 at 02:30 Glucagon (Glucagen) 1 mg Q15M PRN IM DECREASED GLUCOSE; Start 06/11/17 at 02:30 Glucose (Glutose) 15 gm Q15M PRN BUCCAL DECREASED GLUCOSE; Start 06/11/17 at 02 :30 Donepezil HCl (Aricept) 5 mg DAILY PO Last administered on 06/12/17 09:48; Admin Dose 5 MG; Start 06/11/17 at 09:00 Gabapentin (Neurontin) 100 mg DAILY PO Last administered on 06/12/17 09:48; Admin Dose 100 MG; Start 06/11/17 at 09:00 Sodium Chloride 1 spray 1 spray BID PRN NASAL DRY NOSE; Start 06/11/17 at 04:00 Magnesium Sulfate/ Dextrose (Magnesium Sulfate 1 Gm/D5W) 100 ml @ 100 mls/hr ONCE IVPB ; Start 06/12/17 at 12:30; Stop 06/12/17 at 13:[address] chest (06/11/17): IMPRESSION: 1. Cardiomegaly with mild pulmonary edema, trace bilateral effusions, and a small pericardial effusion, which is enlarged when compared with the prior. Correlate clinically for CHF. 2. Calcified nodules with associated surrounding scarring and architectural distortion in the right upper lobe with additional calcified nodules in both lungs, consistent with prior granulomatous disease. This occurs in the background of moderate to severe centrilobular emphysema. 3. Nonspecific mediastinal adenopathy. 4. Minimal debris within the distal trachea, significantly improved when compared with the prior examination. 5. Multivessel coronary artery calcifications and atherosclerotic changes of the aorta. 6. Splenomegaly, partially visualized. 7. Hemorrhagic or proteinaceous cyst measuring 11 mm at the upper pole of the visualized left kidney. ANA RATLIFF. Jun 12, 2017 11:32
[2017-06-12] MEDS ORDERED: MAGNESIUM SULFATE 1 GM/D5W 100 ML IVPB SCH (12:30)
--- NOTE | 2017-06-12 18:48 | CONS ---
Date/Time of Note Date/Time of Note DATE: 06/12/17 TIME: 18:47 Assessment/Plan Assessment/Plan Additional Assessment/Plan Acute blood loss anemia Severe symptomatic anemia Chest pain and shortness of breath, improved Leukemia Hypertension Low normal ejection fraction -Patient continues to deny chest pain or shortness of breath, symptoms likely secondary to severe anemia and so undergoing blood transfusion. As mentioned no aspirin at the current time, continue beta-vandana as heart rate and blood pressure permits and statin therapy if no contraindication. Consultation Date/Type/Reason Admit Date/Time Jun 11, 2017 at 00:14 Initial Consult Date Type of Consultation: cv 24 HR Interval Summary Free Text/Dictation Feeling better, no chest pain or shortness of breath Exam/Review of Systems Vital Signs Vitals Vital Signs Date Time Temp Pulse Resp B/P Pulse Ox O2 Delivery O2 Flow Rate FiO2 06/12/17 16:53 74 06/12/17 16:25 98.7 18 121/60 96 Room Air Intake and Output 06/11/17 06/11/17 06/12/17 15:00 23:00 07:00 Intake Total 1365 ml 550 ml Output Total 1900 ml 1000 ml Balance -535 ml -450 ml Exam No apparent distress Constitutional: alert, frail, oriented Head: normocephalic Respiratory: other (Coarse breath sounds bilaterally, no wheezing) Cardiovascular: other (S1-S2 heard), regular rate and rhythm Gastrointestinal: bowel sounds, non-tender, soft Extremities: other (No edema) Results Result Diagram: 06/12/17 0707 06/12/17 0707 Results 24 hrs Laboratory Tests Test 06/11/17 20:53 06/12/17 05:18 06/12/17 07:07 06/12/17 08:48 Bedside Glucose 125 127 Lab Scanned Report BLOOD TRANSFUSION White Blood Count 9.2 # Red Blood Count 2.48 L Hemoglobin 6.9 *L Hematocrit 20.8 L Mean Corpuscular Volume 83.9 Mean Corpuscular Hemoglobin 27.8 L Mean Corpuscular Hemoglobin Concent 33.2 Red Cell Distribution Width 15.9 H Platelet Count 10 #*L Mean Platelet Volume Neutrophils % Segmented Neutrophils % (Manual) 40 Band Neutrophils % (Manual) 3 Lymphocytes % Lymphocytes % (Manual) 20 Monocytes % Monocytes % (Manual) 30 H Eosinophils % Eosinophils % (Manual) 1 Basophils % Promyelocytes % (Manual) 1 H Blast Cells % (Manual) 5 H Nucleated Red Blood Cells % 1 H Neutrophils # Neutrophils # (Manual) 3.7 Band Neutrophils # 0.2 Absolute Lymphocytes (Manual) 1.8 Lymphocytes # Monocytes # Absolute Monocytes (Manual) 2.7 H Eosinophils # Basophils # Promyelocytes # 0 Nucleated Red Blood Cells # Thrombocytosis 2 H Platelet Estimate SIG DECREASED Polychromasia 3+ Anisocytosis 1+ Microcytosis 1+ Spherocytes 1+ Sodium Level 140 Potassium Level 3.7 Chloride Level 106 Carbon Dioxide Level 23 Anion Gap 15 Blood Urea Nitrogen 27 H Creatinine 1.67 H Glucose Level 101 Calcium Level 8.0 L Phosphorus Level 4.4 Magnesium Level 1.6 L Total Bilirubin 0.3 Direct Bilirubin 0.00 Indirect Bilirubin 0.3 Aspartate Amino Transf (AST/SGOT) 19 Alanine Aminotransferase (ALT/SGPT) 20 Alkaline Phosphatase 65 Total Protein 8.5 H Albumin 3.2 L Globulin 5.30 H Albumin/Globulin Ratio 0.60 Test 06/12/17 12:00 06/12/17 18:30 Bedside Glucose 108 135 Medications Medications Current Medications Ondansetron HCl (Zofran Inj) 4 mg Q6H PRN IV NAUSEA AND/OR VOMITING; Start at 01:30 Acetaminophen (Tylenol Tab) 650 mg Q6H PRN PO PAIN LEVEL 1-3 OR FEVER; Start at 01:30 Morphine Sulfate (morphine) 2 mg Q4H PRN IV PAIN LEVEL 7-10; Start 06/11/17 at 01:30 Docusate Sodium (Colace) 100 mg Q12H PRN PO CONSTIPATION; Start 06/11/17 at 01: 30 Bisacodyl (Dulcolax) 5 mg DAILY PRN PO CONSTIPATION; Start 06/11/17 at 01:30 Pantoprazole (Protonix Iv) 40 mg DAILY@06 IV Last administered on 06/12/17 06: 16; Admin Dose 40 MG; Start 06/11/17 at 06:00 Atorvastatin Calcium (Lipitor) 10 mg QHS PO Last administered on 06/11/17 21: 04; Admin Dose 10 MG; Start 06/11/17 at 21:00 Levothyroxine Sodium (Synthroid) 50 mcg DAILY@06 PO Last administered on 06:16; Admin Dose 50 MCG; Start 06/11/17 at 06:00 Metoprolol Tartrate (Lopressor) 25 mg BID PO Last administered on 06/12/17 09: 51; Admin Dose 25 MG; Start 06/11/17 at 14:00 Potassium Chloride (Micro-K) 8 meq DAILY PO Last administered on 06/12/17 09: 50; Admin Dose 8 MEQ; Start 06/11/17 at 09:00 Sucralfate 1 gm 1 gm QID PO Last administered on 06/12/17 17:00; Admin Dose 1 GM; Start 06/11/17 at 09:00 Sodium Chloride (NS) 1,000 ml @ 70 mls/hr [id number] IV Last administered on 06/12 06:17; Admin Dose 70 MLS/HR; Start 06/11/17 at 02:00 Diagnostic Test (Pha) (Accu-Chek) 1 ea 02 XX ; Start 06/12/17 at 02:00 Miscellaneous Information 1 ea NOTE XX ; Start 06/11/17 at 02:30 Glucose (Glutose) 15 gm Q15M PRN PO DECREASED GLUCOSE; Start 06/11/17 at 02:30 Glucose (Glutose) 22.5 gm Q15M PRN PO DECREASED GLUCOSE; Start 06/11/17 at 02: 30 Dextrose (D50w Syringe) 25 ml Q15M PRN IV DECREASED GLUCOSE; Start 06/11/17 at 02:30 Dextrose (D50w Syringe) 50 ml Q15M PRN IV DECREASED GLUCOSE; Start 06/11/17 at 02:30 Glucagon (Glucagen) 1 mg Q15M PRN IM DECREASED GLUCOSE; Start 06/11/17 at 02:30 Glucose (Glutose) 15 gm Q15M PRN BUCCAL DECREASED GLUCOSE; Start 06/11/17 at 02 :30 Donepezil HCl (Aricept) 5 mg DAILY PO Last administered on 06/12/17 09:48; Admin Dose 5 MG; Start 06/11/17 at 09:00 Gabapentin (Neurontin) 100 mg DAILY PO Last administered on 06/12/17 09:48; Admin Dose 100 MG; Start 06/11/17 at 09:00 Sodium Chloride (Deep Sea) 1 spray BID PRN NASAL DRY NOSE; Start 06/11/17 at 04 :00 Paul Dixon DO Jun 12, 2017 18:48
[2017-06-12] MEDS: ATORVASTATIN 10 MG TAB PO SCH (22:17)
[2017-06-13] VITALS (12 sets, daily range): BP systolic 114–145; BP diastolic 58–71; PULSE 67–80; RESP 16–19
[2017-06-13] MEDS: ACCU-CHEK XX SCH (02:35)
[2017-06-13] MEDS: LEVOTHYROXINE 50 MCG TAB PO SCH (05:33)
[2017-06-13] MEDS: PANTOPRAZOLE 40 MG INJ IV SCH (05:33)
[2017-06-13 07:40] LABS: ABNORMAL IP MESSAGE 1; HEMATOCRIT 25.6 % (42.0-52.0); HEMOGLOBIN 8.5 g/dl (14.0-18.0); MEAN CORPUSCULAR HEMOGLOBIN 27.6 pg (29.0-33.0); MEAN CORPUSCULAR HGB CONC 33.2 g/dl (32.0-37.0); MEAN CORPUSCULAR VOLUME 83.1 fl (82.0-101.0); NUCLEATED RED BLOOD CELLS% 1.3 /100WBC (0.0-0.0); POSITIVE DIFF @See below; RED BLOOD COUNT 3.08 10^6/ul (4.70-6.10)
[2017-06-13 07:46] LABS: PLATELET COUNT 9 10^3/UL (140-415)
[2017-06-13] MEDS: INSULIN ASPART [NOVOLOG] 3 ML PEN SC SCH ×4 (08:00→21:00)
[2017-06-13] MEDS: SUCRALFATE 1 GM TAB PO SCH ×4 (08:37→21:31)
[2017-06-13] MEDS: GABAPENTIN 100 MG CAP PO SCH (08:37)
[2017-06-13] MEDS: POTASSIUM CHLORIDE (SR) 8 MEQ CAP PO SCH (08:37)
[2017-06-13] MEDS: DONEPEZIL 5 MG TAB PO SCH (08:37)
[2017-06-13] MEDS: METOPROLOL 25 MG TAB PO SCH ×2 (08:38→21:31)
[2017-06-13 09:15] LABS: MAGNESIUM 1.8 mg/dl (1.7-2.5); PHOSPHORUS 4.1 mg/dl (2.5-4.9)
[2017-06-13 09:17] LABS: CALCIUM 7.9 mg/dl (8.4-10.2); CREATININE 1.55 mg/dl (0.61-1.24); POTASSIUM 3.8 mmol/L (3.5-5.1)
[2017-06-13 09:34] LABS: ANISOCYTOSIS 2+ (0-0); BLAST% (M) 4 % (0-0); ERYTHROBLAST% (NRBC) (M) 3 % (0-0); METAMYELOCYTES %M 1 % (0-0); MICROCYTOSIS 2+ (0-0); MONOCYTES % (M) 35 % (0-11); PLATELET ESTIMATE SIG DECREASED; POIKILOCYTOSIS 1+ (0-0); POLYCHROMASIA 3+ (0-0)
--- NOTE | 2017-06-13 10:26 | CONS ---
Date/Time of Note Date/Time of Note DATE: 06/13/17 TIME: 10:25 Assessment/Plan Assessment/Plan Additional Assessment/Plan Acute blood loss anemia Severe symptomatic anemia Chest pain and shortness of breath, improved Leukemia Hypertension Low normal ejection fraction -Patient continues to deny chest pain or shortness of breath, symptoms likely secondary to severe anemia and so undergoing blood transfusion. As mentioned no aspirin at the current time, continue beta-vandana as heart rate and blood pressure permits and statin therapy if no contraindication. Consultation Date/Type/Reason Admit Date/Time Jun 11, 2017 at 00:14 Type of Consultation: cv 24 HR Interval Summary Free Text/Dictation Feels better today, denies shortness of breath or chest pain Exam/Review of Systems Vital Signs Vitals Vital Signs Date Time Temp Pulse Resp B/P Pulse Ox O2 Delivery O2 Flow Rate FiO2 06/13/17 08:09 98.5 73 18 136/65 96 06/12/17 16:25 Room Air Intake and Output 06/12/17 06/12/17 06/13/17 15:00 23:00 07:00 Intake Total 1106 ml 750 ml Output Total 650 ml Balance 1106 ml 100 ml Exam No apparent distress Constitutional: alert, oriented Head: normocephalic Respiratory: other (Coarse breath sounds bilaterally, no wheezing) Cardiovascular: other (S1-S2 heard), regular rate and rhythm Gastrointestinal: bowel sounds, non-tender, soft Extremities: other (No edema) Results Result Diagram: 06/13/17 0709 06/13/17 0709 Results 24 hrs Laboratory Tests Test 06/12/17 12:00 06/12/17 18:30 06/12/17 22:21 06/13/17 02:30 Bedside Glucose 108 135 186 99 Test 06/13/17 07:09 06/13/17 08:27 White Blood Count 9.0 Red Blood Count 3.08 #L Hemoglobin 8.5 #L Hematocrit 25.6 #L Mean Corpuscular Volume 83.1 Mean Corpuscular Hemoglobin 27.6 L Mean Corpuscular Hemoglobin Concent 33.2 Red Cell Distribution Width 17.0 H Platelet Count 9 *L Mean Platelet Volume Neutrophils % Segmented Neutrophils % (Manual) 35 L Band Neutrophils % (Manual) 1 Lymphocytes % Lymphocytes % (Manual) 22 Monocytes % Monocytes % (Manual) 35 H Eosinophils % Basophils % Metamyelocytes % (manual) 1 H Blast Cells % (Manual) 4 H Nucleated Red Blood Cells % 3 H Neutrophils # Neutrophils # (Manual) 3.2 Band Neutrophils # 0.0 Absolute Lymphocytes (Manual) 1.9 Lymphocytes # Monocytes # Absolute Monocytes (Manual) 3.1 H Eosinophils # Basophils # Metamyelocytes # 0.0 Nucleated Red Blood Cells # Smudge Cells % 4 H Platelet Estimate SIG DECREASED Polychromasia 3+ Poikilocytosis 1+ Anisocytosis 2+ Microcytosis 2+ Sodium Level 142 Potassium Level 3.8 Chloride Level 105 Carbon Dioxide Level 24 Anion Gap 17 H Blood Urea Nitrogen 26 H Creatinine 1.55 H Glucose Level 102 Calcium Level 7.9 L Phosphorus Level 4.1 Magnesium Level 1.8 Bedside Glucose 95 Medications Medications Current Medications Ondansetron HCl (Zofran Inj) 4 mg Q6H PRN IV NAUSEA AND/OR VOMITING; Start at 01:30 Acetaminophen (Tylenol Tab) 650 mg Q6H PRN PO PAIN LEVEL 1-3 OR FEVER; Start at 01:30 Morphine Sulfate (morphine) 2 mg Q4H PRN IV PAIN LEVEL 7-10; Start 06/11/17 at 01:30 Docusate Sodium (Colace) 100 mg Q12H PRN PO CONSTIPATION; Start 06/11/17 at 01: 30 Bisacodyl (Dulcolax) 5 mg DAILY PRN PO CONSTIPATION; Start 06/11/17 at 01:30 Pantoprazole (Protonix Iv) 40 mg DAILY@06 IV Last administered on 06/13/17 05: 33; Admin Dose 40 MG; Start 06/11/17 at 06:00 Atorvastatin Calcium (Lipitor) 10 mg QHS PO Last administered on 06/12/17 22: 17; Admin Dose 10 MG; Start 06/11/17 at 21:00 Levothyroxine Sodium (Synthroid) 50 mcg DAILY@06 PO Last administered on 05:33; Admin Dose 50 MCG; Start 06/11/17 at 06:00 Metoprolol Tartrate (Lopressor) 25 mg BID PO Last administered on 06/13/17 08: 38; Admin Dose 25 MG; Start 06/11/17 at 14:00 Potassium Chloride (Micro-K) 8 meq DAILY PO Last administered on 06/13/17 08: 37; Admin Dose 8 MEQ; Start 06/11/17 at 09:00 Sucralfate (Carafate) 1 gm QID PO Last administered on 06/13/17 08:37; Admin Dose 1 GM; Start 06/11/17 at 09:00 Diagnostic Test (Pha) (Accu-Chek) 1 ea 02 XX Last administered on 06/13/17 02: 35; Admin Dose 1 EA; Start 06/12/17 at 02:00 Miscellaneous Information 1 ea NOTE XX ; Start 06/11/17 at 02:30 Glucose (Glutose) 15 gm Q15M PRN PO DECREASED GLUCOSE; Start 06/11/17 at 02:30 Glucose (Glutose) 22.5 gm Q15M PRN PO DECREASED GLUCOSE; Start 06/11/17 at 02: 30 Dextrose (D50w Syringe) 25 ml Q15M PRN IV DECREASED GLUCOSE; Start 06/11/17 at 02:30 Dextrose (D50w Syringe) 50 ml Q15M PRN IV DECREASED GLUCOSE; Start 06/11/17 at 02:30 Glucagon (Glucagen) 1 mg Q15M PRN IM DECREASED GLUCOSE; Start 06/11/17 at 02:30 Glucose (Glutose) 15 gm Q15M PRN BUCCAL DECREASED GLUCOSE; Start 06/11/17 at 02 :30 Donepezil HCl (Aricept) 5 mg DAILY PO Last administered on 06/13/17 08:37; Admin Dose 5 MG; Start 06/11/17 at 09:00 Gabapentin (Neurontin) 100 mg DAILY PO Last administered on 06/13/17 08:37; Admin Dose 100 MG; Start 06/11/17 at 09:00 Sodium Chloride (Deep Sea) 1 spray BID PRN NASAL DRY NOSE; Start 06/11/17 at 04 :00 Paul Dixon DO Jun 13, 2017 10:26
[2017-06-13] MEDS: ATORVASTATIN 10 MG TAB PO SCH (21:31)
--- NOTE | 2017-06-13 22:45 | PN ---
Date/Time of Note Date/Time of Note DATE: 06/13/17 TIME: 22:43 Assessment/Plan VTE Prophylaxis VTE Prophylaxis Intervention: SCD's Lines/Catheters IV C[facility]ter Type (from [facility] Saline Lock Urinary Cath still in place: No Assessment/Plan Assessment/Plan #1 chest pain: Rule out ACS versus symptomatic anemia. 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 Seen by cardiology team. - At the current time will trend troponins, follow-up echocardiogram results. #2 Symptomatic anemia: Secondary to CML/myelodysplastic syndrome. History of pancytopenia. No overt signs of bleeding at this time. Hemoglobin 6.2 with platelets of 8 on admission. -Awaiting transfusion of 2 units of PRBCs and 1 units of platelets. -Follow-up vibratory pile driver/oncologist recommendation, and posttransfusion CBC #3. Multiple right upper lobe nodules: These have been evident on previous imaging examinations. He was recommended to have a repeat CT scan for follow- up (was performed, see results below) -Monitor for now #4 Leukocytosis: Improved, patient at the current time is afebrile and there are no signs of infection at this time. This likely could be reactive in nature. - Will continue to monitor white blood cell count and monitor patient for any hemodynamic instability or fevers. #5 Cardiomyopathy. Will resume patient on his cardiovascular medications, follow-up cardiology consult recommendation secondary to patient's chest pain. #6 history of hypothyroidism. Continue on Synthroid medication, follow-up TSH level. #7 history of diabetes. Hold oral medication at this time, put patient on insulin sliding scale. #8 essential hypertension. Continue antihypertensives and adjust as needed #9 hyperlipidemia. Continue on statin medication #10 Severe Thrombocytopenia: will transfuse 2 units today DVT and GI prophylaxis: SCDs, Protonix Subjective 24 Hr Interval Summary Free Text/Dictation no acute events overnight Exam/Review of Systems Vital Signs Vitals Vital Signs Date Time Temp Pulse Resp B/P Pulse Ox O2 Delivery O2 Flow Rate FiO2 06/13/17 20:27 98.5 80 16 137/63 95 06/12/17 16:25 Room Air Intake and Output 06/12/17 06/12/17 06/13/17 15:00 23:00 07:00 Intake Total 1106 ml 750 ml Output Total 650 ml Balance 1106 ml 100 ml Exam Constitutional: alert, oriented Head: atraumatic, normocephalic Eyes: EOMI Respiratory: clear to auscultation, normal air movement Cardiovascular: nl pulses, regular rate and rhythm Gastrointestinal: soft Results Result Diagram: 06/13/17 0709 06/13/17 0709 Results 24 hrs Laboratory Tests Test 06/13/17 02:30 06/13/17 07:09 06/13/17 08:27 06/13/17 12:07 Bedside Glucose 99 95 89 White Blood Count 9.0 Red Blood Count 3.08 #L Hemoglobin 8.5 #L Hematocrit 25.6 #L Mean Corpuscular Volume 83.1 Mean Corpuscular Hemoglobin 27.6 L Mean Corpuscular Hemoglobin Concent 33.2 Red Cell Distribution Width 17.0 H Platelet Count 9 *L Mean Platelet Volume Neutrophils % Segmented Neutrophils % (Manual) 35 L Band Neutrophils % (Manual) 1 Lymphocytes % Lymphocytes % (Manual) 22 Monocytes % Monocytes % (Manual) 35 H Eosinophils % Basophils % Metamyelocytes % (manual) 1 H Blast Cells % (Manual) 4 H Nucleated Red Blood Cells % 3 H Neutrophils # Neutrophils # (Manual) 3.2 Band Neutrophils # 0.0 Absolute Lymphocytes (Manual) 1.9 Lymphocytes # Monocytes # Absolute Monocytes (Manual) 3.1 H Eosinophils # Basophils # Metamyelocytes # 0.0 Nucleated Red Blood Cells # Smudge Cells % 4 H Platelet Estimate SIG DECREASED Polychromasia 3+ Poikilocytosis 1+ Anisocytosis 2+ Microcytosis 2+ Sodium Level 142 Potassium Level 3.8 Chloride Level 105 Carbon Dioxide Level 24 Anion Gap 17 H Blood Urea Nitrogen 26 H Creatinine 1.55 H Glucose Level 102 Calcium Level 7.9 L Phosphorus Level 4.1 Magnesium Level 1.8 Test 06/13/17 17:18 06/13/17 21:29 Bedside Glucose 124 115 Medications Medications Current Medications Ondansetron HCl (Zofran Inj) 4 mg Q6H PRN IV NAUSEA AND/OR VOMITING; Start at 01:30 Acetaminophen (Tylenol Tab) 650 mg Q6H PRN PO PAIN LEVEL 1-3 OR FEVER; Start at 01:30 Morphine Sulfate (morphine) 2 mg Q4H PRN IV PAIN LEVEL 7-10; Start 06/11/17 at 01:30 Docusate Sodium (Colace) 100 mg Q12H PRN PO CONSTIPATION; Start 06/11/17 at 01: 30 Bisacodyl (Dulcolax) 5 mg DAILY PRN PO CONSTIPATION; Start 06/11/17 at 01:30 Pantoprazole (Protonix Iv) 40 mg DAILY@06 IV Last administered on 06/13/17 05: 33; Admin Dose 40 MG; Start 06/11/17 at 06:00 Atorvastatin Calcium (Lipitor) 10 mg QHS PO Last administered on 06/13/17 21: 31; Admin Dose 10 MG; Start 06/11/17 at 21:00 Levothyroxine Sodium (Synthroid) 50 mcg DAILY@06 PO Last administered on 05:33; Admin Dose 50 MCG; Start 06/11/17 at 06:00 Metoprolol Tartrate (Lopressor) 25 mg BID PO Last administered on 06/13/17 21: 31; Admin Dose 25 MG; Start 06/11/17 at 14:00 Potassium Chloride (Micro-K) 8 meq DAILY PO Last administered on 06/13/17 08: 37; Admin Dose 8 MEQ; Start 06/11/17 at 09:00 Sucralfate (Carafate) 1 gm QID PO Last administered on 06/13/17 21:31; Admin Dose 1 GM; Start 06/11/17 at 09:00 Diagnostic Test (Pha) (Accu-Chek) 1 ea 02 XX Last administered on 06/13/17 02: 35; Admin Dose 1 EA; Start 06/12/17 at 02:00 Miscellaneous Information 1 ea NOTE XX ; Start 06/11/17 at 02:30 Glucose (Glutose) 15 gm Q15M PRN PO DECREASED GLUCOSE; Start 06/11/17 at 02:30 Glucose (Glutose) 22.5 gm Q15M PRN PO DECREASED GLUCOSE; Start 06/11/17 at 02: 30 Dextrose (D50w Syringe) 25 ml Q15M PRN IV DECREASED GLUCOSE; Start 06/11/17 at 02:30 Dextrose (D50w Syringe) 50 ml Q15M PRN IV DECREASED GLUCOSE; Start 06/11/17 at 02:30 Glucagon (Glucagen) 1 mg Q15M PRN IM DECREASED GLUCOSE; Start 06/11/17 at 02:30 Glucose (Glutose) 15 gm Q15M PRN BUCCAL DECREASED GLUCOSE; Start 06/11/17 at 02 :30 Donepezil HCl (Aricept) 5 mg DAILY PO Last administered on 06/13/17 08:37; Admin Dose 5 MG; Start 06/11/17 at 09:00 Gabapentin (Neurontin) 100 mg DAILY PO Last administered on 06/13/17 08:37; Admin Dose 100 MG; Start 06/11/17 at 09:00 Sodium Chloride (Deep Sea) 1 spray BID PRN NASAL DRY NOSE; Start 06/11/17 at 04 :00 FABIANA CLEVELAND MD Jun 13, 2017 22:45
[2017-06-14] VITALS (12 sets, daily range): BP systolic 111–137; BP diastolic 56–69; PULSE 74–83; RESP 16–20
[2017-06-14] MEDS: ACCU-CHEK XX SCH (00:46)
[2017-06-14] MEDS: PANTOPRAZOLE 40 MG INJ IV SCH (05:41)
[2017-06-14] MEDS: LEVOTHYROXINE 50 MCG TAB PO SCH (05:41)
[2017-06-14 07:21] LABS: ABNORMAL IP MESSAGE 1; HEMATOCRIT 24.6 % (42.0-52.0); HEMOGLOBIN 8.3 g/dl (14.0-18.0); MEAN CORPUSCULAR HEMOGLOBIN 27.9 pg (29.0-33.0); MEAN CORPUSCULAR HGB CONC 33.7 g/dl (32.0-37.0); MEAN CORPUSCULAR VOLUME 82.8 fl (82.0-101.0); NUCLEATED RED BLOOD CELLS% 0.9 /100WBC (0.0-0.0); POSITIVE DIFF @See below; RED BLOOD COUNT 2.97 10^6/ul (4.70-6.10); RED CELL DISTRIBUTION WIDTH 17.3 % (11.5-14.5); WHITE BLOOD COUNT 7.6 10^3/ul (4.8-10.8)
[2017-06-14 07:41] LABS: PLATELET COUNT 6 10^3/UL (140-415)
[2017-06-14 07:52] LABS: CREATININE 1.66 mg/dl (0.61-1.24)
[2017-06-14] MEDS: INSULIN ASPART [NOVOLOG] 3 ML PEN SC SCH ×4 (08:00→21:00)
[2017-06-14] MEDS: POTASSIUM CHLORIDE (SR) 8 MEQ CAP PO SCH (08:49)
[2017-06-14] MEDS: DONEPEZIL 5 MG TAB PO SCH (08:49)
[2017-06-14] MEDS: SUCRALFATE 1 GM TAB PO SCH ×4 (08:49→21:10)
[2017-06-14] MEDS: METOPROLOL 25 MG TAB PO SCH ×2 (08:50→21:10)
[2017-06-14] MEDS: GABAPENTIN 100 MG CAP PO SCH (08:50)
[2017-06-14 10:09] LABS: ANISOCYTOSIS 2+ (0-0); BLAST% (M) 4 % (0-0); METAMYELOCYTES %M 3 % (0-0); MONOCYTES % (M) 45 % (0-11); OVALOCYTES 1+ (0-0); PLATELET ESTIMATE SIG DECREASED; POIKILOCYTOSIS 1+ (0-0); POLYCHROMASIA 2+ (0-0); SCHISTOCYTES 1+ (0-0); TEAR DROP CELLS 1+ (0-0)
--- NOTE | 2017-06-14 10:46 | CONS ---
Date/Time of Note Date/Time of Note DATE: 06/14/17 TIME: 10:45 Consultation Date/Type/Reason Admit Date/Time Jun 11, 2017 at 00:14 Date of Consultation: Jun 14, 2017 Type of Consultation: Pulmonary Hx of Present Illness Patient currently not in room. Apparently has been ambulating in the hospital. Will reevaluate the patient once he is available for examination and interview. Social History Alcohol Use: none Smoking Status: Never smoker Drug Use: none Exam/Review of Systems Vital Signs Vitals Vital Signs Date Time Temp Pulse Resp B/P Pulse Ox O2 Delivery O2 Flow Rate FiO2 06/14/17 08:08 79 06/14/17 07:39 98.2 19 124/58 96 06/12/17 16:25 Room Air Intake and Output 06/13/17 06/13/17 06/14/17 15:00 23:00 07:00 Intake Total 1000 ml 995 ml Balance 1000 ml 995 ml Results Result Diagram: 06/14/17 0656 06/14/17 0656 Results 24 hrs Laboratory Tests Test 06/13/17 12:07 06/13/17 17:18 06/13/17 21:29 06/14/17 06:04 Bedside Glucose 89 124 115 Lab Scanned Report BLOOD TRANSFUSION Test 06/14/17 06:56 06/14/17 07:55 White Blood Count 7.6 Red Blood Count 2.97 L Hemoglobin 8.3 L Hematocrit 24.6 L Mean Corpuscular Volume 82.8 Mean Corpuscular Hemoglobin 27.9 L Mean Corpuscular Hemoglobin Concent 33.7 Red Cell Distribution Width 17.3 H Platelet Count 6 #*L Mean Platelet Volume Neutrophils % Segmented Neutrophils % (Manual) 18 L Lymphocytes % Lymphocytes % (Manual) 28 Monocytes % Monocytes % (Manual) 45 H Eosinophils % Basophils % Metamyelocytes % (manual) 3 H Blast Cells % (Manual) 4 H Nucleated Red Blood Cells % 0.9 H Neutrophils # Absolute Lymphocytes (Manual) 2.1 Lymphocytes # Monocytes # Absolute Monocytes (Manual) 3.4 H Eosinophils # Basophils # Metamyelocytes # 0.2 H Nucleated Red Blood Cells # Smudge Cells % 28 H Platelet Estimate SIG DECREASED Polychromasia 2+ Poikilocytosis 1+ Anisocytosis 2+ Tear Drop Cells 1+ Ovalocytes 1+ Schistocytes 1+ Sodium Level 143 Potassium Level 4.0 Chloride Level 107 Carbon Dioxide Level 24 Anion Gap 16 Blood Urea Nitrogen 27 H Creatinine 1.66 H Glucose Level 116 Calcium Level 8.0 L Bedside Glucose 105 Medications Medications Current Medications Ondansetron HCl (Zofran Inj) 4 mg Q6H PRN IV NAUSEA AND/OR VOMITING; Start at 01:30 Acetaminophen (Tylenol Tab) 650 mg Q6H PRN PO PAIN LEVEL 1-3 OR FEVER; Start at 01:30 Morphine Sulfate (morphine) 2 mg Q4H PRN IV PAIN LEVEL 7-10; Start 06/11/17 at 01:30 Docusate Sodium (Colace) 100 mg Q12H PRN PO CONSTIPATION; Start 06/11/17 at 01: 30 Bisacodyl (Dulcolax) 5 mg DAILY PRN PO CONSTIPATION; Start 06/11/17 at 01:30 Pantoprazole (Protonix Iv) 40 mg DAILY@06 IV Last administered on 06/14/17 05: 41; Admin Dose 40 MG; Start 06/11/17 at 06:00 Atorvastatin Calcium (Lipitor) 10 mg QHS PO Last administered on 06/13/17 21: 31; Admin Dose 10 MG; Start 06/11/17 at 21:00 Levothyroxine Sodium (Synthroid) 50 mcg DAILY@06 PO Last administered on 05:41; Admin Dose 50 MCG; Start 06/11/17 at 06:00 Metoprolol Tartrate (Lopressor) 25 mg BID PO Last administered on 06/14/17 08: 50; Admin Dose 25 MG; Start 06/11/17 at 14:00 Potassium Chloride (Micro-K) 8 meq DAILY PO Last administered on 06/14/17 08: 49; Admin Dose 8 MEQ; Start 06/11/17 at 09:00 Sucralfate (Carafate) 1 gm QID PO Last administered on 06/14/17 08:49; Admin Dose 1 GM; Start 06/11/17 at 09:00 Diagnostic Test (Pha) (Accu-Chek) 1 ea 02 XX Last administered on 06/13/17 02: 35; Admin Dose 1 EA; Start 06/12/17 at 02:00 Miscellaneous Information 1 ea NOTE XX ; Start 06/11/17 at 02:30 Glucose (Glutose) 15 gm Q15M PRN PO DECREASED GLUCOSE; Start 06/11/17 at 02:30 Glucose (Glutose) 22.5 gm Q15M PRN PO DECREASED GLUCOSE; Start 06/11/17 at 02: 30 Dextrose (D50w Syringe) 25 ml Q15M PRN IV DECREASED GLUCOSE; Start 06/11/17 at 02:30 Dextrose (D50w Syringe) 50 ml Q15M PRN IV DECREASED GLUCOSE; Start 06/11/17 at 02:30 Glucagon (Glucagen) 1 mg Q15M PRN IM DECREASED GLUCOSE; Start 06/11/17 at 02:30 Glucose (Glutose) 15 gm Q15M PRN BUCCAL DECREASED GLUCOSE; Start 06/11/17 at 02 :30 Donepezil HCl (Aricept) 5 mg DAILY PO Last administered on 06/14/17 08:49; Admin Dose 5 MG; Start 06/11/17 at 09:00 Gabapentin (Neurontin) 100 mg DAILY PO Last administered on 06/14/17 08:50; Admin Dose 100 MG; Start 06/11/17 at 09:00 Sodium Chloride (Deep Sea) 1 spray BID PRN NASAL DRY NOSE; Start 06/11/17 at 04 :00 MYESHA OLIVER Jun 14, 2017 10:46
--- NOTE | 2017-06-14 11:03 | PN ---
Date/Time of Note Date/Time of Note DATE: 06/14/17 TIME: 11:03 Assessment/Plan VTE Prophylaxis VTE Prophylaxis Intervention: SCD's Lines/Catheters [facility] Saline Lock Urinary Cath still in place: No Assessment/Plan Assessment/Plan Acute blood loss anemia Severe symptomatic anemia Chest pain and shortness of breath, improved Leukemia Hypertension Low normal ejection fraction -Patient continues to deny chest pain or shortness of breath, symptoms likely secondary to severe anemia and so undergoing blood transfusion. As mentioned no aspirin at the current time, continue beta-vandana as heart rate and blood pressure permits and statin therapy if no contraindication. Subjective 24 Hr Interval Summary Free Text/Dictation The patien with no change Exam/Review of Systems Vital Signs Vitals Vital Signs Date Time Temp Pulse Resp B/P Pulse Ox O2 Delivery O2 Flow Rate FiO2 06/14/17 08:08 79 06/14/17 07:39 98.2 19 124/58 96 06/12/17 16:25 Room Air Intake and Output 06/13/17 06/13/17 06/14/17 15:00 23:00 07:00 Intake Total 1000 ml 995 ml Balance 1000 ml 995 ml Results Result Diagram: 06/14/17 0656 06/14/17 0656 Results 24 hrs Laboratory Tests Test 06/13/17 12:07 06/13/17 17:18 06/13/17 21:29 06/14/17 06:04 Bedside Glucose 89 124 115 Lab Scanned Report BLOOD TRANSFUSION Test 06/14/17 06:56 06/14/17 07:55 White Blood Count 7.6 Red Blood Count 2.97 L Hemoglobin 8.3 L Hematocrit 24.6 L Mean Corpuscular Volume 82.8 Mean Corpuscular Hemoglobin 27.9 L Mean Corpuscular Hemoglobin Concent 33.7 Red Cell Distribution Width 17.3 H Platelet Count 6 #*L Mean Platelet Volume Neutrophils % Segmented Neutrophils % (Manual) 18 L Lymphocytes % Lymphocytes % (Manual) 28 Monocytes % Monocytes % (Manual) 45 H Eosinophils % Basophils % Metamyelocytes % (manual) 3 H Blast Cells % (Manual) 4 H Nucleated Red Blood Cells % 0.9 H Neutrophils # Absolute Lymphocytes (Manual) 2.1 Lymphocytes # Monocytes # Absolute Monocytes (Manual) 3.4 H Eosinophils # Basophils # Metamyelocytes # 0.2 H Nucleated Red Blood Cells # Smudge Cells % 28 H Platelet Estimate SIG DECREASED Polychromasia 2+ Poikilocytosis 1+ Anisocytosis 2+ Tear Drop Cells 1+ Ovalocytes 1+ Schistocytes 1+ Sodium Level 143 Potassium Level 4.0 Chloride Level 107 Carbon Dioxide Level 24 Anion Gap 16 Blood Urea Nitrogen 27 H Creatinine 1.66 H Glucose Level 116 Calcium Level 8.0 L Bedside Glucose 105 Medications Medications Current Medications Ondansetron HCl (Zofran Inj) 4 mg Q6H PRN IV NAUSEA AND/OR VOMITING; Start at 01:30 Acetaminophen (Tylenol Tab) 650 mg Q6H PRN PO PAIN LEVEL 1-3 OR FEVER; Start at 01:30 Morphine Sulfate (morphine) 2 mg Q4H PRN IV PAIN LEVEL 7-10; Start 06/11/17 at 01:30 Docusate Sodium (Colace) 100 mg Q12H PRN PO CONSTIPATION; Start 06/11/17 at 01: 30 Bisacodyl (Dulcolax) 5 mg DAILY PRN PO CONSTIPATION; Start 06/11/17 at 01:30 Pantoprazole (Protonix Iv) 40 mg DAILY@06 IV Last administered on 06/14/17 05: 41; Admin Dose 40 MG; Start 06/11/17 at 06:00 Atorvastatin Calcium (Lipitor) 10 mg QHS PO Last administered on 06/13/17 21: 31; Admin Dose 10 MG; Start 06/11/17 at 21:00 Levothyroxine Sodium (Synthroid) 50 mcg DAILY@06 PO Last administered on 05:41; Admin Dose 50 MCG; Start 06/11/17 at 06:00 Metoprolol Tartrate (Lopressor) 25 mg BID PO Last administered on 06/14/17 08: 50; Admin Dose 25 MG; Start 06/11/17 at 14:00 Potassium Chloride (Micro-K) 8 meq DAILY PO Last administered on 06/14/17 08: 49; Admin Dose 8 MEQ; Start 06/11/17 at 09:00 Sucralfate (Carafate) 1 gm QID PO Last administered on 06/14/17 08:49; Admin Dose 1 GM; Start 06/11/17 at 09:00 Diagnostic Test (Pha) (Accu-Chek) 1 ea 02 XX Last administered on 06/13/17 02: 35; Admin Dose 1 EA; Start 06/12/17 at 02:00 Miscellaneous Information 1 ea NOTE XX ; Start 06/11/17 at 02:30 Glucose (Glutose) 15 gm Q15M PRN PO DECREASED GLUCOSE; Start 06/11/17 at 02:30 Glucose (Glutose) 22.5 gm Q15M PRN PO DECREASED GLUCOSE; Start 06/11/17 at 02: 30 Dextrose (D50w Syringe) 25 ml Q15M PRN IV DECREASED GLUCOSE; Start 06/11/17 at 02:30 Dextrose (D50w Syringe) 50 ml Q15M PRN IV DECREASED GLUCOSE; Start 06/11/17 at 02:30 Glucagon (Glucagen) 1 mg Q15M PRN IM DECREASED GLUCOSE; Start 06/11/17 at 02:30 Glucose (Glutose) 15 gm Q15M PRN BUCCAL DECREASED GLUCOSE; Start 06/11/17 at 02 :30 Donepezil HCl (Aricept) 5 mg DAILY PO Last administered on 06/14/17 08:49; Admin Dose 5 MG; Start 06/11/17 at 09:00 Gabapentin (Neurontin) 100 mg DAILY PO Last administered on 06/14/17 08:50; Admin Dose 100 MG; Start 06/11/17 at 09:00 Sodium Chloride (Deep Sea) 1 spray BID PRN NASAL DRY NOSE; Start 06/11/17 at 04 :00 EZEQUIEL ABREU MD Jun 14, 2017 11:03
[2017-06-14] MEDS: ATORVASTATIN 10 MG TAB PO SCH (21:10)
--- NOTE | 2017-06-14 23:34 | PN ---
Date/Time of Note Date/Time of Note DATE: 06/14/17 TIME: 23:32 Assessment/Plan VTE Prophylaxis VTE Prophylaxis Intervention: SCD's Lines/Catheters [facility] Saline Lock Urinary Cath still in place: No Assessment/Plan Assessment/Plan #1 chest pain: Rule out ACS versus symptomatic anemia. 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 Seen by cardiology team. - At the current time will trend troponins, follow-up echocardiogram results. #2 Symptomatic anemia: Secondary to CML/myelodysplastic syndrome. History of pancytopenia. No overt signs of bleeding at this time. Hemoglobin 6.2 with platelets of 8 on admission. -Awaiting transfusion of 2 units of PRBCs and 1 units of platelets. -Follow-up web solutions architect/oncologist recommendation, and posttransfusion CBC #3. Multiple right upper lobe nodules: These have been evident on previous imaging examinations. He was recommended to have a repeat CT scan for follow- up (was performed, see results below) -Monitor for now #4 Leukocytosis: Improved, patient at the current time is afebrile and there are no signs of infection at this time. This likely could be reactive in nature. - Will continue to monitor white blood cell count and monitor patient for any hemodynamic instability or fevers. #5 Cardiomyopathy. Will resume patient on his cardiovascular medications, follow-up cardiology consult recommendation secondary to patient's chest pain. #6 history of hypothyroidism. Continue on Synthroid medication, follow-up TSH level. #7 history of diabetes. Hold oral medication at this time, put patient on insulin sliding scale. #8 essential hypertension. Continue antihypertensives and adjust as needed #9 hyperlipidemia. Continue on statin medication #10 Severe Thrombocytopenia: will transfuse 2 units today Subjective 24 Hr Interval Summary Free Text/Dictation no acute events overnight Exam/Review of Systems Vital Signs Vitals Vital Signs Date Time Temp Pulse Resp B/P Pulse Ox O2 Delivery O2 Flow Rate FiO2 06/14/17 20:14 75 06/14/17 19:48 97.7 20 137/68 96 06/12/17 16:25 Room Air Intake and Output 06/13/17 06/13/17 06/14/17 15:00 23:00 07:00 Intake Total 1000 ml 995 ml Balance 1000 ml 995 ml Exam Constitutional: alert, oriented, well developed Head: atraumatic, normocephalic Eyes: EOMI, PERRL Respiratory: clear to auscultation, normal air movement Cardiovascular: nl pulses, regular rate and rhythm Gastrointestinal: non-tender, soft Extremities: normal pulses Results Result Diagram: 06/14/17 0656 06/14/17 0656 Results 24 hrs Laboratory Tests Test 06/14/17 06:04 06/14/17 06:56 06/14/17 07:55 06/14/17 11:37 Lab Scanned Report BLOOD TRANSFUSION White Blood Count 7.6 Red Blood Count 2.97 L Hemoglobin 8.3 L Hematocrit 24.6 L Mean Corpuscular Volume 82.8 Mean Corpuscular Hemoglobin 27.9 L Mean Corpuscular Hemoglobin Concent 33.7 Red Cell Distribution Width 17.3 H Platelet Count 6 #*L Mean Platelet Volume Neutrophils % Segmented Neutrophils % (Manual) 18 L Lymphocytes % Lymphocytes % (Manual) 28 Monocytes % Monocytes % (Manual) 45 H Eosinophils % Basophils % Metamyelocytes % (manual) 3 H Blast Cells % (Manual) 4 H Nucleated Red Blood Cells % 0.9 H Neutrophils # Absolute Lymphocytes (Manual) 2.1 Lymphocytes # Monocytes # Absolute Monocytes (Manual) 3.4 H Eosinophils # Basophils # Metamyelocytes # 0.2 H Nucleated Red Blood Cells # Smudge Cells % 28 H Platelet Estimate SIG DECREASED Polychromasia 2+ Poikilocytosis 1+ Anisocytosis 2+ Tear Drop Cells 1+ Ovalocytes 1+ Schistocytes 1+ Sodium Level 143 Potassium Level 4.0 Chloride Level 107 Carbon Dioxide Level 24 Anion Gap 16 Blood Urea Nitrogen 27 H Creatinine 1.66 H Glucose Level 116 Calcium Level 8.0 L Bedside Glucose 105 82 Test 06/14/17 17:12 06/14/17 21:08 Bedside Glucose 110 127 Medications Medications Current Medications Ondansetron HCl (Zofran Inj) 4 mg Q6H PRN IV NAUSEA AND/OR VOMITING; Start at 01:30 Acetaminophen (Tylenol Tab) 650 mg Q6H PRN PO PAIN LEVEL 1-3 OR FEVER; Start at 01:30 Morphine Sulfate (morphine) 2 mg Q4H PRN IV PAIN LEVEL 7-10; Start 06/11/17 at 01:30 Docusate Sodium (Colace) 100 mg Q12H PRN PO CONSTIPATION; Start 06/11/17 at 01: 30 Bisacodyl (Dulcolax) 5 mg DAILY PRN PO CONSTIPATION; Start 06/11/17 at 01:30 Pantoprazole (Protonix Iv) 40 mg DAILY@06 IV Last administered on 06/14/17 05: 41; Admin Dose 40 MG; Start 06/11/17 at 06:00 Atorvastatin Calcium (Lipitor) 10 mg QHS PO Last administered on 06/14/17 21: 10; Admin Dose 10 MG; Start 06/11/17 at 21:00 Levothyroxine Sodium (Synthroid) 50 mcg DAILY@06 PO Last administered on 05:41; Admin Dose 50 MCG; Start 06/11/17 at 06:00 Metoprolol Tartrate (Lopressor) 25 mg BID PO Last administered on 06/14/17 21: 10; Admin Dose 25 MG; Start 06/11/17 at 14:00 Potassium Chloride (Micro-K) 8 meq DAILY PO Last administered on 06/14/17 08: 49; Admin Dose 8 MEQ; Start 06/11/17 at 09:00 Sucralfate (Carafate) 1 gm QID PO Last administered on 06/14/17 21:10; Admin Dose 1 GM; Start 06/11/17 at 09:00 Diagnostic Test (Pha) (Accu-Chek) 1 ea 02 XX Last administered on 06/13/17 02: 35; Admin Dose 1 EA; Start 06/12/17 at 02:00 Miscellaneous Information 1 ea NOTE XX ; Start 06/11/17 at 02:30 Glucose (Glutose) 15 gm Q15M PRN PO DECREASED GLUCOSE; Start 06/11/17 at 02:30 Glucose (Glutose) 22.5 gm Q15M PRN PO DECREASED GLUCOSE; Start 06/11/17 at 02: 30 Dextrose (D50w Syringe) 25 ml Q15M PRN IV DECREASED GLUCOSE; Start 06/11/17 at 02:30 Dextrose (D50w Syringe) 50 ml Q15M PRN IV DECREASED GLUCOSE; Start 06/11/17 at 02:30 Glucagon (Glucagen) 1 mg Q15M PRN IM DECREASED GLUCOSE; Start 06/11/17 at 02:30 Glucose (Glutose) 15 gm Q15M PRN BUCCAL DECREASED GLUCOSE; Start 06/11/17 at 02 :30 Donepezil HCl (Aricept) 5 mg DAILY PO Last administered on 06/14/17 08:49; Admin Dose 5 MG; Start 06/11/17 at 09:00 Gabapentin (Neurontin) 100 mg DAILY PO Last administered on 06/14/17 08:50; Admin Dose 100 MG; Start 06/11/17 at 09:00 Sodium Chloride (Deep Sea) 1 spray BID PRN NASAL DRY NOSE; Start 06/11/17 at 04 :00 FABIANA CLEVELAND MD Jun 14, 2017 23:34
[2017-06-15] VITALS (10 sets, daily range): BP systolic 110–141; BP diastolic 56–74; PULSE 68–87; RESP 16–19
[2017-06-15] MEDS: ACCU-CHEK XX SCH (01:58)
[2017-06-15] MEDS: PANTOPRAZOLE 40 MG INJ IV SCH (06:12)
[2017-06-15] MEDS: LEVOTHYROXINE 50 MCG TAB PO SCH (06:12)
[2017-06-15] MEDS: INSULIN ASPART [NOVOLOG] 3 ML PEN SC SCH ×2 (08:00→12:00)
[2017-06-15 08:18] LABS: ABNORMAL IP MESSAGE 1; HEMATOCRIT 25.3 % (42.0-52.0); HEMOGLOBIN 8.4 g/dl (14.0-18.0); MEAN CORPUSCULAR HEMOGLOBIN 27.5 pg (29.0-33.0); MEAN CORPUSCULAR HGB CONC 33.2 g/dl (32.0-37.0); NUCLEATED RED BLOOD CELLS% 0.5 /100WBC (0.0-0.0); POSITIVE DIFF @See below; RED BLOOD COUNT 3.05 10^6/ul (4.70-6.10); RED CELL DISTRIBUTION WIDTH 17.2 % (11.5-14.5); WHITE BLOOD COUNT 8.3 10^3/ul (4.8-10.8)
[2017-06-15 08:29] LABS: PLATELET COUNT 23 10^3/UL (140-415)
[2017-06-15 08:44] LABS: CALCIUM 8.4 mg/dl (8.4-10.2); CREATININE 1.62 mg/dl (0.61-1.24); POTASSIUM 4.2 mmol/L (3.5-5.1)
[2017-06-15] MEDS: SUCRALFATE 1 GM TAB PO SCH ×2 (08:54→12:19)
[2017-06-15] MEDS: GABAPENTIN 100 MG CAP PO SCH (08:54)
[2017-06-15] MEDS: DONEPEZIL 5 MG TAB PO SCH (08:54)
[2017-06-15] MEDS: METOPROLOL 25 MG TAB PO SCH (08:54)
[2017-06-15] MEDS: POTASSIUM CHLORIDE (SR) 8 MEQ CAP PO SCH (08:54)
--- NOTE | 2017-06-15 10:22 | PDOCDIS ---
Discharge Instructions CONDITION Patient Condition: Stable HOME CARE INSTRUCTIONS: Diet Instructions: 2gm Na ACTIVITY: Activity Restrictions: Slowly Increase Activity FOLLOW UP/APPOINTMENTS Follow-up Plan Follow-up with your primary care doctor and oncologist OTHER ORDERS: Other Orders: Call 911 and go to the nearest emergency department for any signs of bleeding, shortness of breath, chest pain, fever or chills, lightheadedness FABIANA CLEVELAND MD Jun 15, 2017 10:22
--- NOTE | 2017-06-15 10:39 | CONS ---
Date/Time of Note Date/Time of Note DATE: 06/15/17 TIME: 10:38 Assessment/Plan Assessment/Plan Chief Complaint/Hosp Course Patient currently not in room. Apparently has been ambulating in the hospital. Will reevaluate the patient once he is available for examination and interview. Problems: Consultation Date/Type/Reason Admit Date/Time Jun 11, 2017 at 00:14 Date of Consultation: Jun 15, 2017 Type of Consultation: pulmonary Reason for Consultation dictated Hx of Present Illness Patient currently not in room. Apparently has been ambulating in the hospital. Will reevaluate the patient once he is available for examination and interview. Social History Alcohol Use: none Smoking Status: Never smoker Drug Use: none Exam/Review of Systems Vital Signs Vitals Vital Signs Date Time Temp Pulse Resp B/P Pulse Ox O2 Delivery O2 Flow Rate FiO2 06/15/17 08:39 98.4 67 16 129/74 96 06/12/17 16:25 Room Air Intake and Output 06/14/17 06/14/17 06/15/17 15:00 23:00 07:00 Intake Total 1100 ml 350 ml Balance 1100 ml 350 ml Results Result Diagram: 06/15/17 0728 06/15/17 0700 Results 24 hrs Laboratory Tests Test 06/14/17 11:37 06/14/17 17:12 06/14/17 21:08 06/15/17 07:00 Bedside Glucose 82 110 127 Sodium Level 143 Potassium Level 4.2 Chloride Level 106 Carbon Dioxide Level 24 Anion Gap 17 H Blood Urea Nitrogen 28 H Creatinine 1.62 H Glucose Level 106 Calcium Level 8.4 Test 06/15/17 07:12 06/15/17 07:28 06/15/17 07:50 Lab Scanned Report BLOOD TRANSFUSION White Blood Count 8.3 Red Blood Count 3.05 L Hemoglobin 8.4 L Hematocrit 25.3 L Mean Corpuscular Volume 83.0 Mean Corpuscular Hemoglobin 27.5 L Mean Corpuscular Hemoglobin Concent 33.2 Red Cell Distribution Width 17.2 H Platelet Count 23 #*L Mean Platelet Volume Neutrophils % Lymphocytes % Monocytes % Eosinophils % Basophils % Nucleated Red Blood Cells % 0.5 H Neutrophils # Lymphocytes # Monocytes # Eosinophils # Basophils # Nucleated Red Blood Cells # Bedside Glucose 108 Medications Medications Current Medications Ondansetron HCl (Zofran Inj) 4 mg Q6H PRN IV NAUSEA AND/OR VOMITING; Start at 01:30 Acetaminophen (Tylenol Tab) 650 mg Q6H PRN PO PAIN LEVEL 1-3 OR FEVER; Start at 01:30 Morphine Sulfate (morphine) 2 mg Q4H PRN IV PAIN LEVEL 7-10; Start 06/11/17 at 01:30 Docusate Sodium (Colace) 100 mg Q12H PRN PO CONSTIPATION; Start 06/11/17 at 01: 30 Bisacodyl (Dulcolax) 5 mg DAILY PRN PO CONSTIPATION; Start 06/11/17 at 01:30 Pantoprazole (Protonix Iv) 40 mg DAILY@06 IV Last administered on 06/15/17 06: 12; Admin Dose 40 MG; Start 06/11/17 at 06:00 Atorvastatin Calcium (Lipitor) 10 mg QHS PO Last administered on 06/14/17 21: 10; Admin Dose 10 MG; Start 06/11/17 at 21:00 Levothyroxine Sodium (Synthroid) 50 mcg DAILY@06 PO Last administered on 06:12; Admin Dose 50 MCG; Start 06/11/17 at 06:00 Metoprolol Tartrate (Lopressor) 25 mg BID PO Last administered on 06/15/17 08: 54; Admin Dose 25 MG; Start 06/11/17 at 14:00 Potassium Chloride (Micro-K) 8 meq DAILY PO Last administered on 06/15/17 08: 54; Admin Dose 8 MEQ; Start 06/11/17 at 09:00 Sucralfate (Carafate) 1 gm QID PO Last administered on 06/15/17 08:54; Admin Dose 1 GM; Start 06/11/17 at 09:00 Diagnostic Test (Pha) (Accu-Chek) 1 ea 02 XX Last administered on 06/13/17 02: 35; Admin Dose 1 EA; Start 06/12/17 at 02:00 Miscellaneous Information 1 ea NOTE XX ; Start 06/11/17 at 02:30 Glucose (Glutose) 15 gm Q15M PRN PO DECREASED GLUCOSE; Start 06/11/17 at 02:30 Glucose (Glutose) 22.5 gm Q15M PRN PO DECREASED GLUCOSE; Start 06/11/17 at 02: 30 Dextrose (D50w Syringe) 25 ml Q15M PRN IV DECREASED GLUCOSE; Start 06/11/17 at 02:30 Dextrose (D50w Syringe) 50 ml Q15M PRN IV DECREASED GLUCOSE; Start 06/11/17 at 02:30 Glucagon (Glucagen) 1 mg Q15M PRN IM DECREASED GLUCOSE; Start 06/11/17 at 02:30 Glucose (Glutose) 15 gm Q15M PRN BUCCAL DECREASED GLUCOSE; Start 06/11/17 at 02 :30 Donepezil HCl (Aricept) 5 mg DAILY PO Last administered on 06/15/17 08:54; Admin Dose 5 MG; Start 06/11/17 at 09:00 Gabapentin (Neurontin) 100 mg DAILY PO Last administered on 06/15/17 08:54; Admin Dose 100 MG; Start 06/11/17 at 09:00 Sodium Chloride (Deep Sea) 1 spray BID PRN NASAL DRY NOSE; Start 06/11/17 at 04 :00 MYESHA OLIVER Jun 15, 2017 10:39
[2017-06-15 11:47] LABS: ANISOCYTOSIS 1+ (0-0); BLAST% (M) 3 % (0-0); ERYTHROBLAST% (NRBC) (M) 1 % (0-0); MONOCYTES % (M) 27 % (0-11); PLATELET ESTIMATE DECREASED; POIKILOCYTOSIS 3+ (0-0); POLYCHROMASIA 3+ (0-0); PROMYELOCYTES #M 0 # (0-0); PROMYELOCYTES % (M) 1 % (0-0)
--- NOTE | 2017-06-16 09:44 | CONS ---
DATE OF ADMISSION: 06/11/2017 DATE OF CONSULTATION: 06/15/2017 REASON FOR CONSULTATION: Evaluation of chest pain. HISTORY OF PRESENT ILLNESS: The patient is a pleasant 72-year- old white male who was admitted with complaints of chest pain involving the right chest. Upon further evaluation, the patient was found to be anemic as well as severely thrombocytopenic. The patient did not report any shortness of breath, any coughing or wheezing. The patient has since been transfused platelets. The patient denies any bleeding tendencies. By the time I saw the patient, the patient was completely awake, alert and without any symptoms. PAST MEDICAL HISTORY: 1. History of multiple admissions to the hospital because of severe recurrent thrombocytopenia. 2. History of respiratory failure a few months ago requiring prolonged mechanical ventilation with severe bilateral pneumonia. 3. History of anemia, status post multiple blood transfusions in the recent past. 4. Hypertension. 5. Hyperlipidemia. 6. Hypothyroidism. 7. Cardiomyopathy. 8. 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 MEDICATION: The patient currently is on: 1. Acetaminophen on a p.r.n. basis. 2. Lipitor 10 mg a day. 3. Aricept 5 mg a day. 4. Neurontin 100 mg daily. 5. Synthroid 0.05 mg a day. 6. Metoprolol 25 mg b.i.d. 7. Morphine on a p.r.n. basis. 8. Protonix 40 mg daily. ALLERGIES: NONE. SOCIAL HISTORY: The patient never smoked. No history of alcohol or drug abuse. FAMILY HISTORY: Patient has a supportive family. OCCUPATIONAL HISTORY: Patient is on disability. REVIEW OF SYSTEMS: Denies any headache, seizure, visual changes, sinus symptoms. Chest pain has resolved. Denies any shortness of breath, cough, wheezing, sputum production, hemoptysis. Any abdominal pain, nausea, vomiting, melena, hematochezia, edema, weight loss. He has a good appetite. PHYSICAL EXAMINATION: GENERAL: An elderly male, awake, alert, currently in no distress. VITAL SIGNS: Temperature 98 degrees Fahrenheit, respiratory rate 16 per minute, heart rate 68 per minute, blood pressure 129/74, O2 sat is 96% on room air. HEENT: Supple neck. No JVD. No lymphadenopathy. Midline trachea. No thyromegaly. Pharynx is clear. No neck bruits. Patient is edentulous. CHEST: Clear to auscultation. S1, S2 audible. No murmurs. Regular rhythm. ABDOMEN: Soft, nontender, nondistended. Bowel sounds audible. EXTREMITIES: No peripheral edema. No clubbing. Pulses 1 plus bilaterally. 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 LABORATORY: Chest x-ray was reviewed from admission, which is again showing minimal bilateral lung nodes, which have been fairly stable for the last several months. Labs from today: White count 8.3, hemoglobin 8.4, platelet count now is 23,000. It was 8000 on 06/10/2017. Sodium 143, potassium 4.2, chloride 106, bicarb 24, glucose 106, BUN 28, creatinine 1.6. IMPRESSION: 1. Patient admitted for atypical chest pain with interval resolution. 2. History of chronic myeloid leukemia with severe pancytopenia, status post multiple packed red blood cells and platelet infusion without any overt bleeding. 3. Recent history of severe respiratory failure from severe pneumonia with marked overall improvement. 4. Renal insufficiency. 5. Hypertension. 6. Stable pulmonary nodules. RECOMMENDATIONS: Continue current treatment. No further workup is warranted as far as lung nodules are concerned. Dictated By: Wm Ricketts MD /lavern/saroj /Document#: [id number]
== END 2017-06-15 16:23 | disposition home or self-care (01) | DRG 813 ==
LOC: E/R 21:45 → MS4 06-11 00:14
PROVIDERS: ADMIT Family Medicine; ATTEND Family Medicine
PROC: 30233N1 Transfusion of Nonautologous Red Blood Cells into Peripheral Vein, Percutaneous Approach (ICD-10-PCS; principal; 2017-06-11)
PROC: 30233R1 Transfusion of Nonautologous Platelets into Peripheral Vein, Percutaneous Approach (ICD-10-PCS; 2017-06-11)
DX: D69.6 Thrombocytopenia, unspecified (principal); I42.9 Cardiomyopathy, unspecified; C95.90 Leukemia, unspecified not having achieved remission; D72.829 Elevated white blood cell count, unspecified; E11.9 Type 2 diabetes mellitus without complications; I10 Essential (primary) hypertension; D62 Acute posthemorrhagic anemia; R07.9 Chest pain, unspecified; I25.2 Old myocardial infarction; R91.1 Solitary pulmonary nodule; E03.9 Hypothyroidism, unspecified; E78.5 Hyperlipidemia, unspecified; D46.9 Myelodysplastic syndrome, unspecified
CPT/HCPCS: 36415; 36430; 71010; 71250; 80048; 80053; 82550; 82553; 82962; 83735; 84100; 84443; 84484; 85025; 85610; 85730; 86644; 86850; 86900; 86901; 86920; 86945; 93005; 93306; C9113; J1815; J3475; J7030; J7040; P9016; P9035

== ENCOUNTER 2017-06-23 14:36 | Outpatient (RCR) | payer BC ==
[2017-06-03 10:35] VITALS: BMI 21.2
[2017-06-03 16:07] VITALS: BP 121/67; PULSE 89; RESP 17
[~2017-06-23 14:36] MED LIST changes: +ATOR20TA65 PO; +DONE5TAB32 PO; +FLUC200T52 PO; +FURO-110 PO; +GABA100C14 PO; +LENA20CA PO; +PANT40TA3 PO; +PANT40TA4 PO; +POTA8CAP PO; +QUET25TA26 PO; +QUET25TA33 PO; +REVLIMID 10MG PO
[2017-06-24] MEDS ORDERED: ACETAMINOPHEN 325 MG TAB PO SCH (10:30)
[2017-06-24] MEDS ORDERED: DIPHENHYDRAMINE 25 MG CAP PO SCH (10:30)
== END 2017-06-24 18:00 | disposition home or self-care (01) ==
LOC: LAB 14:36 → SDS 06-24 09:03 → LAB 06-24 16:30
PROVIDERS: ATTEND Family Medicine
DX: D64.9 Anemia, unspecified (principal)
CPT/HCPCS: 36430; 86644; 86850; 86900; 86901; 86920; 86945; P9016; Z7610

== ENCOUNTER 2017-07-07 16:24 | Outpatient (RCR) | payer BC ==
[~2017-07-07] VITALS: Ht 177.8 cm; Wt 65.0 kg
[2017-07-08 10:17] VITALS: BP 121/63; PULSE 91; RESP 18
[2017-07-08 10:21] VITALS: Ht 177.8 cm; Wt 65.0 kg
[2017-07-08] MEDS ORDERED: DIPHENHYDRAMINE 25 MG CAP ONE (10:31)
[2017-07-08] MEDS ORDERED: ACETAMINOPHEN 325 MG TAB ONE (10:31)
[2017-07-08 11:20] VITALS: BP 115/55; PULSE 82; RESP 17
[2017-07-08] MEDS ORDERED: SOD CHLORIDE 0.9% 250 ML IV* ONE (12:30)
[2017-07-08] MEDS ORDERED: ACETAMINOPHEN 650 MG PO ONE (12:30)
[2017-07-08] MEDS ORDERED: DIPHENHYDRAMINE 25 MG CAP PO SCH (12:30)
[2017-07-08 16:00] VITALS: BP 125/67; PULSE 76; RESP 16
== END 2017-07-08 16:18 | disposition home or self-care (01) ==
LOC: LAB 16:24 → SDS 07-08 09:00 → LAB 07-08 16:18
PROVIDERS: ATTEND Family Medicine
DX: D64.9 Anemia, unspecified (principal)
CPT/HCPCS: 36430; 86644; 86850; 86900; 86901; 86920; 86945; J7050; P9016; Z7610

== ENCOUNTER 2017-10-16 11:09 | Inpatient (IN) | payer MEDICARE, BC ==
[~2017-10-16] VITALS: Ht 177.8 cm; Wt 67.1 kg
[~2017-10-16 11:09] MED LIST changes: -ATOR20TA65 PO; -FLUC200T52 PO; -FURO-110 PO; -LENA20CA PO; -PANT40TA3 PO; -PANT40TA4 PO; -POTA8CAP PO; -QUET25TA26 PO; -QUET25TA33 PO; -REVLIMID 10MG PO
[2017-10-16] MEDS ORDERED: LIDOCAINE 1% (MPF) 5 ML VIAL SC ONE (13:30)
[2017-10-16] MEDS ORDERED: SOD CHLORIDE 0.9% 250 ML IV* ONE (14:12)
--- NOTE | 2017-10-16 14:26 | RADRPT ---
PROCEDURE: XR Chest. CLINICAL INDICATION: PICC line placement TECHNIQUE: Single frontal view of the chest was obtained COMPARISON: CR CHEST 02/19/2017 FINDINGS: There is a new left-sided PICC line in place with its tip overlying the cavoatrial junction. The heart, mediastinum, and lungs are unchanged. There is right upper lobe scarring. There is mild cardiomegaly. There is a right upper lobe partiall y calcified lung nodule. There is a mild patchy left lower lobe infiltrate. RPTAT: AA IMPRESSION: New PICC line in appropriate position. Mild patchy left lower lobe infiltrate. Mild cardiomegaly. Right upper lobe scarring and right upper lobe partially calcified nodule. .Jose Dunn MD, MD Date Time Electronically viewed and signed by .Jose Dunn MD, on 10/16/2017 14:26 .S/
--- NOTE | 2017-10-16 14:57 | RADRPT ---
PROCEDURE: Ultrasound guidance for placement of needle in left upper extremity vein. CLINICAL INDICATION: Venous access. TECHNIQUE: Limited sonography of the left upper extremity was performed. Ultrasound images were recorded and s tored in the patient's medical record. COMPARISON: None. FINDINGS: The ultrasound images demonstrate a patent left upper extremity vein. The PICC line was inserted by the PICC line nurse. IMPRESSION: 1. Ultrasound guidance for a needle placement in a left upper extremity vein. 2. The left upper extremity vein is patent. RPTAT: QQ .Sunil Souza MD, MD Date Time Electronically viewed and signed by .Sunil Souza MD, MD on 10/16/2017 14:56 .R/
[2017-10-16 15:12] VITALS: Ht 177.8 cm; Wt 67.1 kg
[2017-10-16 16:20] VITALS: PULSE 88
[2017-10-16 16:23] VITALS: BP 131/60; RESP 18
[2017-10-16] MEDS ORDERED: HYDROCODONE/APAP (10/325) TAB PO PRN (17:00)
[2017-10-16] MEDS ORDERED: DEXTROSE 50% 50 ML SYRINGE IV PRN ×2 (18:00)
[2017-10-16] MEDS ORDERED: GLUCOSE GEL 15 GRAM TUBE BUCCAL PRN (18:00)
[2017-10-16] MEDS ORDERED: GLUCAGON 1 MG INJ IM PRN (18:00)
[2017-10-16] MEDS ORDERED: GLUCOSE GEL 15 GRAM TUBE PO PRN ×2 (18:00)
[2017-10-16] MEDS: SUCRALFATE 1 GM TAB PO SCH ×2 (18:17→20:58)
[2017-10-16] MEDS: metFORMIN 500 MG TAB PO SCH (18:17)
[2017-10-16] MEDS ORDERED: SOD CHLORIDE 0.9% 100 ML ONE (19:35)
[2017-10-16 20:02] VITALS: BP 143/67; RESP 20
[2017-10-16 20:41] VITALS: PULSE 90
[2017-10-16] MEDS: PROPRANOLOL 10 MG TAB PO SCH (20:58)
[2017-10-16] MEDS: ATORVASTATIN 10 MG TAB PO SCH (20:58)
[2017-10-16] MEDS: DOCUSATE SODIUM 250 MG CAP PO SCH (20:58)
[2017-10-16] MEDS: PANTOPRAZOLE SODIUM 20 MG TABEC PO SCH (20:58)
[2017-10-16] MEDS: METOPROLOL 25 MG TAB PO SCH (20:59)
[2017-10-16] MEDS ORDERED: ESOMEPRAZOLE MAGNESIUM 22.3 MG PO SCH (21:00)
[2017-10-16 21:03] LABS: ABNORMAL IP MESSAGE 1; HEMATOCRIT 17.1 % (42.0-52.0); MEAN CORPUSCULAR HGB CONC 32.7 g/dl (32.0-37.0); MEAN CORPUSCULAR VOLUME 85.5 fl (82.0-101.0); NUCLEATED RED BLOOD CELLS% 0.8 /100WBC (0.0-0.0); RED CELL DISTRIBUTION WIDTH 16.4 % (11.5-14.5); WHITE BLOOD COUNT 12.4 10^3/ul (4.8-10.8)
[2017-10-16] MEDS: ALLOPURINOL 300 MG TAB PO SCH (21:09)
[2017-10-16 21:13] LABS: HEMOGLOBIN 5.6 g/dl (14.0-18.0); PLATELET COUNT 8 10^3/UL (140-415)
[2017-10-16] MEDS: ACCU-CHEK XX SCH (21:13)
--- NOTE | 2017-10-16 21:16 | HP ---
DATE OF ADMISSION: 10/16/2017 CHIEF COMPLAINT: Acute myelogenous leukemia. HISTORY OF PRESENT ILLNESS: Mr. Townsend is a 72-year-old male who has a history of a pancytopenia which was diagnosed originally approximately 1 year ago. The patient, at that time, did undergo bon e marrow aspiration and biopsy, was found to have a myelodysplastic syndrome. The patient was felt to have a refractory anemia with excessive blasts. The patient, as mentioned, has had pancytopenia and has required frequent transfusions with red bloo d cells and platelets. Previous treatment has included treatment with hypomethylating agent. The patient did receive azacy tidine without benefit. The patient also has been treated with lenalidomide, also without benefit. In the past, erythropoietin also was ineffective. More recently, the patient's transfusion requirement has increased. The patient has had evidence of increasing circulating blasts. A bone marrow was performed on 09/15/2017, and it was felt that the patient did have evidence of an acute myelogenous leukemia. This was not a promyelocytic leukemia and there were no particular mutations found. The patient is being admitted at this time to undergo chemotherapy with Mylotarg. PAST MEDICAL HISTORY: Does include the above-mentioned myelodysplastic syndrome which has evolved i nto acute leukemia. Other histories include a non-STEMI type 2. There does seem to be an associate d cardiomyopathy. The patient has also had some type of surgery performed in [facility], approximately 20 years ago. At that time, he apparently had GI bleeding. It is unclear if this was a vagotomy and pyloroplasty. SOCIAL HISTORY: Patient is a smoker. He has smoked approximately 1 pack of cigarettes every 3 or 4 days. He has done this for the past 30 years. He has no known exposures to industrial toxins or i onizing radiation, but he has been treated with azacytidine in the past without benefit. The patien t's social history is otherwise unremarkable. MEDICATIONS: At the time of admission, include: 1. Aricept 5 mg daily. 2. Famotidine 20 mg daily. 3. Furosemide 40 mg daily. 4. Gabapentin 100 mg daily. 5. Potassium chloride 8 mEq daily. 6. Levothyroxine 50 mcg daily. 7. Atorvastatin 10 mg daily. 8. Metoprolol 25 mg daily. 9. Propranolol 10 mg daily. 10. Metformin 500 mg b.i.d. 11. The patient also takes acetaminophen with hydrocodone 10/325 one every 4 to 6 hours p.r.n. pain . ALLERGIES: PATIENT HAS NO KNOWN ALLERGIES. REVIEW OF SYSTEMS: GENERAL: The patient has experienced generalized weakness and fatigue. HEENT: The patient denies headaches, dizziness or diplopia, has had occasional epistaxis. CARDIORESPIRATORY: No complaints of orthopnea or PND. No chest pain. Does have dyspnea on exertio n when he becomes anemic. GASTROINTESTINAL: No complaints of nausea or vomiting. No diarrhea, no constipation, melena or hem atochezia. GENITOURINARY: No dysuria, hematuria or nocturia. MUSCULOSKELETAL: No unusual joint pain, swelling or tenderness. NEUROLOGIC: Patient has had no seizures or other focal neurologic abnormalities. PHYSICAL EXAMINATION: GENERAL: Reveals a well-developed, thin male who is in no acute distress. VITAL SIGNS: Temperature 97.8, pulse 100 per minute and regular, respirations 20, blood pressure 14 3/67 and pulse oximetry is 97% on room air. SKIN: Pale. There are scattered ecchymoses and petechiae and purpura. HEENT: Normocephalic. No evidence of trauma. The pupils are equal, round, react to light and acco mmodation. Sclerae nonicteric. The oral mucosa is moist without lesions, but pale. Conjunctivae a re pale. NECK: Supple. No jugular venous distention or thyroid enlargement. No carotid bruits. CHEST: Clear to auscultation and percussion. No rhonchi, wheezes, rales or rubs. There is no pain on percussion of the spine, sternum, clavicles or ribs. HEART: Sinus tachycardia. No S3, S4 or murmurs. No rubs. BREASTS: No gynecomastia. ABDOMEN: Flat and soft. The spleen is palpable approximately 6 cm below the left costal margin in the anterior axillary line. There is no ascites. Bowel sounds are active. There is a surgical inc ision from previous abdominal surgery. This is well healed. There are no hernia defects. EXTREMITIES: Good range of motion. No clubbing, no edema or cyanosis. No palpable cords or Homans sign. There is a double lumen PICC line in the left upper extremity. NEUROLOGIC: Normal except for generalized weakness. There are no focal neurologic abnormalities. IMPRESSION: 1. 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 2. Arteriosclerotic cardiovascular disease with cardiomyopathy. The patient will be admitted to [facility]. As mentioned, the plan is for the pat ient to receive Mylotarg. This will be given on day 1 and day 8. The patient will receive 6 mg per meter squared on day 1, and 3 mg per meter squared on day 8. CBC is not yet available, but it is likely that patient will require transfusion as he has in the [facility]. As noted above, a PICC line has been placed for this patient to receive chemotherapy. Blood product s can be administered as well through the PICC line, and laboratory studies may be drawn via this PI CC line. Unfortunately, blood chemistries are not yet available. Will, however, start the patient at this ti in on allopurinol. If the patient does have a response to the Mylotarg, there may be some degree of tumor lysis. As noted, the patient will receive Mylotarg. I do not feel he is a candidate for the usual inductio n chemotherapy. The usual induction chemotherapy employs an anthracycline antitumor agent and this patient already has a significantly decreased left ventricular ejection fraction. Dictated By: OPAL MOSES MD SR/NTS Conf#: [id number] DID#: [id number]
[2017-10-16 21:21] LABS: INR 1.25; PARTIAL THROMBOPLASTIN TIME 42.8 Sec (25.0-35.0); PROTIME 15.9 Sec (11.9-14.9); PT RATIO 1.2
[2017-10-16 21:22] LABS: ALBUMIN 3.1 g/dl (3.3-4.9); ALBUMIN/GLOBULIN RATIO 0.59; BILIRUBIN,INDIRECT 0.1 mg/dl (0-1.1); BILIRUBIN,TOTAL 0.1 mg/dl (0.2-1.3); CREATININE 2.55 mg/dl (0.61-1.24); POTASSIUM 3.3 mmol/L (3.5-5.1); TOTAL PROTEIN 8.3 g/dl (6.1-8.1); URIC ACID 11.6 mg/dl (3.1-7.9)
[2017-10-16 21:45] LABS: ERYTHROBLAST% (NRBC) (M) 3 % (0-0); MONOCYTES % (M) 1 % (0-11); PLATELET ESTIMATE SIG DECREASED
[2017-10-17] VITALS (13 sets, daily range): BP systolic 106–136; BP diastolic 53–72; PULSE 73–81; RESP 16–18
[2017-10-17] MEDS: LEVOTHYROXINE 50 MCG TAB PO SCH (06:14)
[2017-10-17 07:39] LABS: ABNORMAL IP MESSAGE 1; HEMATOCRIT 21.6 % (42.0-52.0); HEMOGLOBIN 7.1 g/dl (14.0-18.0); MEAN CORPUSCULAR HEMOGLOBIN 27.7 pg (29.0-33.0); MEAN CORPUSCULAR HGB CONC 32.9 g/dl (32.0-37.0); MEAN CORPUSCULAR VOLUME 84.4 fl (82.0-101.0); NUCLEATED RED BLOOD CELLS% 1.3 /100WBC (0.0-0.0); POSITIVE DIFF @See below; RED BLOOD COUNT 2.56 10^6/ul (4.70-6.10); RED CELL DISTRIBUTION WIDTH 15.9 % (11.5-14.5); WHITE BLOOD COUNT 14.8 10^3/ul (4.8-10.8)
[2017-10-17 07:43] LABS: ALBUMIN/GLOBULIN RATIO 0.56; BILIRUBIN,INDIRECT 0.4 mg/dl (0-1.1); BILIRUBIN,TOTAL 0.4 mg/dl (0.2-1.3); CALCIUM 8.1 mg/dl (8.4-10.2); CREATININE 2.3 mg/dl (0.61-1.24); POTASSIUM 3.4 mmol/L (3.5-5.1); TOTAL PROTEIN 8.3 g/dl (6.1-8.1); URIC ACID 10.3 mg/dl (3.1-7.9)
[2017-10-17 07:53] LABS: PLATELET COUNT 4 10^3/UL (140-415)
[2017-10-17 08:06] LABS: INR 1.27; PROTIME 16.1 Sec (11.9-14.9); PT RATIO 1.3
[2017-10-17 08:07] LABS: PARTIAL THROMBOPLASTIN TIME 45.1 Sec (25.0-35.0)
[2017-10-17] MEDS: metFORMIN 500 MG TAB PO SCH (08:17)
[2017-10-17] MEDS: GABAPENTIN 100 MG CAP PO SCH (08:25)
[2017-10-17] MEDS: FUROSEMIDE 40 MG TAB PO SCH (08:25)
[2017-10-17] MEDS: PROPRANOLOL 10 MG TAB PO SCH ×2 (08:25→20:03)
[2017-10-17] MEDS: ALLOPURINOL 300 MG TAB PO SCH (08:25)
[2017-10-17] MEDS: DOCUSATE SODIUM 250 MG CAP PO SCH ×2 (08:25→20:01)
[2017-10-17] MEDS: FAMOTIDINE 20 MG TAB PO SCH (08:25)
[2017-10-17] MEDS: SUCRALFATE 1 GM TAB PO SCH ×4 (08:25→20:03)
[2017-10-17] MEDS: DONEPEZIL 5 MG TAB PO SCH (08:25)
[2017-10-17] MEDS: METOPROLOL 25 MG TAB PO SCH ×2 (08:26→20:03)
[2017-10-17] MEDS: PANTOPRAZOLE SODIUM 20 MG TABEC PO SCH ×2 (08:27→20:03)
[2017-10-17] MEDS: ACCU-CHEK XX SCH ×2 (08:40→20:04)
[2017-10-17] MEDS ORDERED: POTASSIUM CHLORIDE (SR) 8 MEQ CAP PO SCH (09:00)
[2017-10-17 09:17] LABS: ANISOCYTOSIS 1+ (0-0); ERYTHROBLAST% (NRBC) (M) 1 % (0-0); MICROCYTOSIS 1+ (0-0); MONOCYTES % (M) 36 % (0-11); MYELOCYTES % (M) 4 % (0-0); PLATELET ESTIMATE SIG DECREASED; POIKILOCYTOSIS 1+ (0-0); POLYCHROMASIA 1+ (0-0); TEAR DROP CELLS 1+ (0-0)
[2017-10-17] MEDS ORDERED: SOD CHLORIDE 0.9% IVPB SCH (10:00)
[2017-10-17] MEDS ORDERED: RASBURICASE IVPB SCH (10:00)
--- NOTE | 2017-10-17 14:43 | PN ---
DATE: 10/17/2017 SUBJECTIVE: The patient states he is feeling well. He denies any shortness of breath or cough. He has had no chest pain. The patient has not noted any hemoptysis. He has had no epistaxis no gingival bleeding, no hemateme sis, melena or hematochezia. OBJECTIVE: GENERAL: The patient is a thin but well-developed male who is in no acute distress. VITAL SIGNS: Temperature 98.7 orally, pulse 72 per minute and regular, respirations 16, blood press ure 113/72, pulse oximetry is 98% on room air. SKIN: Pale. There are scattered ecchymoses and purpura. HEENT: Normocephalic. No evidence of trauma. Pupils equal, round, react to light and accommodatio n. Sclerae are nonicteric. The conjunctiva and oral mucosa are pale but no lesions. Tongue is wel l papillated. No gingival hyperplasia. NECK: Supple, no jugular venous distention or thyroid enlargement. CHEST: Clear to auscultation and percussion. No rhonchi, wheezes, rales or rubs. HEART: Regular sinus rhythm, no S3, S4 or murmurs. No rubs. ABDOMEN: Flat and soft. The spleen, however, is palpable approximately 6 cm below the left costal margin in the anterior axillary line. It is firm but nontender, nonpulsatile. There is no ascites. There is a midline surgical incision which is well healed. No hernia defects. EXTREMITIES: Good range of motion. No clubbing, no edema or cyanosis. No palpable cords or Homans sign. There is a double lumen PICC line in the patient's left antecubital fossa. NEUROLOGIC: No focal neurologic abnormalities. LABORATORY: White count is 14,800, this includes 26% blasts. There are 4% myelocytes. Hemoglobin is 7.1, hematocrit 21.6 and platelet count 4000. The protime is 16.1 seconds with an INR of 1.25, P TT is 45 seconds, fibrinogen is 314. Sodium 141, potassium 3.4, BUN 36, creatinine 2.3. Uric acid 10.3, calcium 8.1, LDH 750, total prot ein 8.3 with an albumin of 3.0. ASSESSMENT: 1. Acute myelogenous leukemia, having evolved from a myelodysplastic syndrome. 2. Pancytopenia secondary to #1. 3. Arteriosclerotic cardiovascular disease with mild cardiomyopathy. PLAN: The patient has already received 2 units of packed red blood cells. The hemoglobin noted abo ve is after transfusion. The patient will receive 2 more units. He will also receive a unit of philippe telet pheresis. The patient has been started on allopurinol, but uric acid is elevated at 10.3 and he will be given a single dose of rasburicase 3 mg. This will be administered prior to chemotherapy. The patient is ultimately being transferred to [address] [place] [address] where he will be started on Mylotarg . The patient will require premedication with dexamethasone and Benadryl as well as corticosteroids . The patient will require monitoring for several hours to monitor for any potential allergic reaction s. Anaphylaxis is a possibility. 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 If the patient is stable after the infusion of Mylotarg, he can maybe discharge and is to receive 3 mg per meter squared of Mylotarg on day 8. As noted, the patient's potassium was only 3.4. The [facility] has been taking potassium supplementation, but has been only receiving 8 mEq per day. We will increase this to 16 mEq per day. The patient's electrolytes, renal function, uric acid, LDH and phosphorus will be monitored closely for any evidence of tumor lysis syndrome. Dictated By: OPAL MOSES MD, SR/RADHA Conf#: [id number] DID#: [id number]
[2017-10-17 19:14] LABS: ABNORMAL IP MESSAGE 1; HEMATOCRIT 23.7 % (42.0-52.0); MEAN CORPUSCULAR HEMOGLOBIN 28.5 pg (29.0-33.0); MEAN CORPUSCULAR HGB CONC 33.8 g/dl (32.0-37.0); MEAN CORPUSCULAR VOLUME 84.3 fl (82.0-101.0); MEAN PLATELET VOLUME 9.1 fl (7.4-10.4); NUCLEATED RED BLOOD CELLS% 0.9 /100WBC (0.0-0.0); POSITIVE DIFF @See below; RED BLOOD COUNT 2.81 10^6/ul (4.70-6.10); RED CELL DISTRIBUTION WIDTH 15.3 % (11.5-14.5); WHITE BLOOD COUNT 10.9 10^3/ul (4.8-10.8)
[2017-10-17 19:23] LABS: PLATELET COUNT 22 10^3/UL (140-415)
[2017-10-17 19:55] LABS: ANISOCYTOSIS 1+ (0-0); BLAST% (M) 21.2 % (0-0); ERYTHROBLAST% (NRBC) (M) 3 % (0-0); METAMYELOCYTES %M 1 % (0-0); MICROCYTOSIS 1+ (0-0); MONOCYTES % (M) 7 % (0-11); MYELOCYTES % (M) 12 % (0-0); PLATELET ESTIMATE SIG DECREASED; POLYCHROMASIA 1+ (0-0)
[2017-10-17] MEDS: POTASSIUM CHLORIDE (SR) 8 MEQ CAP PO SCH (20:02)
[2017-10-17] MEDS: ATORVASTATIN 10 MG TAB PO SCH (20:03)
[2017-10-18] VITALS (19 sets, daily range): BP systolic 90–137; BP diastolic 53–70; PULSE 64–154; RESP 18–20
[2017-10-18] MEDS: LEVOTHYROXINE 50 MCG TAB PO SCH (05:15)
[2017-10-18 06:55] LABS: ABNORMAL IP MESSAGE 1; HEMATOCRIT 31.4 % (42.0-52.0); HEMOGLOBIN 10.8 g/dl (14.0-18.0); MEAN CORPUSCULAR HEMOGLOBIN 28.6 pg (29.0-33.0); MEAN CORPUSCULAR HGB CONC 34.4 g/dl (32.0-37.0); MEAN CORPUSCULAR VOLUME 83.3 fl (82.0-101.0); NUCLEATED RED BLOOD CELLS% 1.7 /100WBC (0.0-0.0); POSITIVE DIFF @See below; RED BLOOD COUNT 3.77 10^6/ul (4.70-6.10); RED CELL DISTRIBUTION WIDTH 15.3 % (11.5-14.5); WHITE BLOOD COUNT 11.8 10^3/ul (4.8-10.8)
[2017-10-18 07:07] LABS: PLATELET COUNT 12 10^3/UL (140-415)
[2017-10-18 07:17] LABS: ALBUMIN/GLOBULIN RATIO 0.55; BILIRUBIN,INDIRECT 0.5 mg/dl (0-1.1); BILIRUBIN,TOTAL 0.5 mg/dl (0.2-1.3); CALCIUM 8.2 mg/dl (8.4-10.2); CREATININE 2.3 mg/dl (0.61-1.24); POTASSIUM 3.9 mmol/L (3.5-5.1); TOTAL PROTEIN 8.4 g/dl (6.1-8.1); URIC ACID 6.6 mg/dl (3.1-7.9)
[2017-10-18 07:18] LABS: MAGNESIUM 1.3 mg/dl (1.7-2.5)
[2017-10-18 07:21] LABS: INR 1.27; PROTIME 16.1 Sec (11.9-14.9); PT RATIO 1.3
[2017-10-18 07:22] LABS: PARTIAL THROMBOPLASTIN TIME 44.5 Sec (25.0-35.0)
[2017-10-18 07:23] LABS: PARTIAL THROMBOPLASTIN TIME 44.5 Sec (25.0-35.0)
[2017-10-18 07:51] LABS: ANISOCYTOSIS 1+ (0-0); BURR CELLS 1+ (0-0); ERYTHROBLAST% (NRBC) (M) 4 % (0-0); MICROCYTOSIS 1+ (0-0); MONOCYTES % (M) 20 % (0-11); MYELOCYTES % (M) 4 % (0-0); PLATELET ESTIMATE SIG DECREASED; POIKILOCYTOSIS 1+ (0-0); PROMYELOCYTES #M 0.1 10^3/ul (0-0); PROMYELOCYTES % (M) 1 % (0-0); REACTIVE LYMPHOCYTES% (M) 1 % (0-0)
[2017-10-18] MEDS: PROPRANOLOL 10 MG TAB PO SCH ×2 (09:19→20:53)
[2017-10-18] MEDS: DONEPEZIL 5 MG TAB PO SCH (09:19)
[2017-10-18] MEDS: DOCUSATE SODIUM 250 MG CAP PO SCH ×2 (09:19→20:53)
[2017-10-18] MEDS: GABAPENTIN 100 MG CAP PO SCH (09:20)
[2017-10-18] MEDS: PANTOPRAZOLE SODIUM 20 MG TABEC PO SCH ×2 (09:20→20:59)
[2017-10-18] MEDS: ALLOPURINOL 300 MG TAB PO SCH (09:20)
[2017-10-18] MEDS: SUCRALFATE 1 GM TAB PO SCH ×4 (09:20→20:53)
[2017-10-18] MEDS: METOPROLOL 25 MG TAB PO SCH ×2 (09:20→20:54)
[2017-10-18] MEDS: FUROSEMIDE 40 MG TAB PO SCH (09:20)
[2017-10-18] MEDS: FAMOTIDINE 20 MG TAB PO SCH (09:20)
[2017-10-18] MEDS: ACCU-CHEK XX SCH ×2 (09:21→21:03)
[2017-10-18] MEDS: POTASSIUM CHLORIDE (SR) 8 MEQ CAP PO SCH ×2 (09:21→20:54)
[2017-10-18] MEDS ORDERED: ACETAMINOPHEN 325 MG TAB PO SCH (11:00)
[2017-10-18] MEDS ORDERED: METHYLPREDNISOLONE 125 MG INJ IV SCH (11:00)
[2017-10-18] MEDS ORDERED: DIPHENHYDRAMINE 50 MG CAP PO SCH (11:00)
--- NOTE | 2017-10-18 11:39 | PN ---
Date/Time of Note Date/Time of Note DATE: 10/18/17 TIME: 11:34 Assessment/Plan VTE Prophylaxis VTE Prophylaxis Intervention: other (thrombocytopenia) Lines/Catheters IV Catheter Type (from Nrsg): PICC Line Central line still needed: Yes Urinary Cath still in place: No Assessment/Plan Assessment/Plan Uric acid is down to 6.6 and should decline further. Myelotarg to be given in about an hour. Discussed with nurse on this floor and with the nurse from Oncology floor. Pt is a bit anxious but stable and has no complaints after the transfusions. Subjective 24 Hr Interval Summary Free Text/Dictation Pt is walking in room with . No complaints. Exam/Review of Systems Vital Signs Vitals Vital Signs Date Time Temp Pulse Resp B/P Pulse Ox O2 Delivery O2 Flow Rate FiO2 10/18/17 10:15 98.7 80 18 122/56 100 Room Air Intake and Output 10/17/17 10/17/17 10/18/17 14:59 22:59 06:59 Intake Total 1175 ml 240 ml Balance 1175 ml 240 ml Exam Constitutional: alert Head: normocephalic Eyes: other (pallor) Neck: supple Respiratory: clear to auscultation Cardiovascular: regular rate and rhythm Gastrointestinal: nl liver, spleen, non-tender, soft Extremities: normal pulses Skin: nl turgor Results Result Diagram: 10/18/17 0613 10/18/17 0613 Results 24 hrs Laboratory Tests Test 10/17/17 19:06 10/17/17 20:01 10/18/17 06:13 10/18/17 07:12 White Blood Count 10.9 #H 11.8 H Red Blood Count 2.81 L 3.77 #L Hemoglobin 8.0 L 10.8 #L Hematocrit 23.7 L 31.4 #L Mean Corpuscular Volume 84.3 83.3 Mean Corpuscular Hemoglobin 28.5 L 28.6 L Mean Corpuscular Hemoglobin Concent 33.8 34.4 Red Cell Distribution Width 15.3 H 15.3 H Platelet Count 22 #*L 12 #*L Mean Platelet Volume 9.1 Neutrophils % Segmented Neutrophils % (Manual) 27 L 21 L Band Neutrophils % (Manual) 1 3 Lymphocytes % Lymphocytes % (Manual) 30 18 Monocytes % Monocytes % (Manual) 7 20 H Metamyelocytes % (manual) 1 H Myelocytes % (Manual) 12 H 4 H Blast Cells % (Manual) 21.2 H 32.0 H Nucleated Red Blood Cells % 3 H 4 H Neutrophils # Neutrophils # (Manual) 3.0 2.5 Band Neutrophils # 0.1 0.3 Absolute Lymphocytes (Manual) 3.2 H 2.1 Lymphocytes # Monocytes # Absolute Monocytes (Manual) 0.7 2.3 H Metamyelocytes # 0.1 H Myelocytes # 1.3 H 0.4 H Platelet Estimate SIG DECREASED SIG DECREASED Polychromasia 1+ Anisocytosis 1+ 1+ Microcytosis 1+ 1+ Bedside Glucose 139 Reactive Lymphocytes % (Manual) 1 H Eosinophils % Basophils % Promyelocytes % (Manual) 1 H Reactive Lymphocytes # 0.1 H Eosinophils # Basophils # Promyelocytes # 0.1 H Nucleated Red Blood Cells # Poikilocytosis 1+ Prothrombin Time 16.1 H Prothrombin Time Ratio 1.3 INR International Normalized Ratio 1.27 Activated Partial Thromboplast Time 44.5 H Mix PTT Normal Plasma Immediate Pending Fibrinogen 341.0 # Sodium Level 142 Potassium Level 3.9 Chloride Level 105 Carbon Dioxide Level 27 Anion Gap 14 Blood Urea Nitrogen 34 H Creatinine 2.30 H Glucose Level 98 Uric Acid 6.6 # Calcium Level 8.2 L Phosphorus Level 4.0 Magnesium Level 1.3 L Total Bilirubin 0.5 Direct Bilirubin 0.00 Indirect Bilirubin 0.5 Aspartate Amino Transf (AST/SGOT) 20 Alanine Aminotransferase (ALT/SGPT) 17 Alkaline Phosphatase 63 Lactate Dehydrogenase 816 H Total Protein 8.4 H Albumin 3.0 L Globulin 5.40 H Albumin/Globulin Ratio 0.55 Lab Scanned Report BLOOD TRANSFUSION Medications Medications Current Medications IV Flush (NS 10 ml) 10 ml PRN PRN IV IV PROTOCOL; Start 10/16/17 at 15:00 Atorvastatin Calcium (Lipitor) 10 mg QHS PO Last administered on 10/17/17 20: 03; Admin Dose 10 MG; Start 10/16/17 at 21:00 Docusate Sodium (Colace) 250 mg BID PO Last administered on 10/18/17 09:19; Admin Dose 250 MG; Start 10/16/17 at 21:00 Donepezil HCl (Aricept) 5 mg DAILY PO Last administered on 10/18/17 09:19; Admin Dose 5 MG; Start 10/17/17 at 09:00 Famotidine (Pepcid) 20 mg DAILY PO Last administered on 10/18/17 09:20; Admin Dose 20 MG; Start 10/17/17 at 09:00 Furosemide (Lasix) 40 mg DAILY PO Last administered on 10/18/17 09:20; Admin Dose 40 MG; Start 10/17/17 at 09:00 Gabapentin (Neurontin) 100 mg DAILY PO Last administered on 10/18/17 09:20; Admin Dose 100 MG; Start 10/17/17 at 09:00 Acetaminophen/ Hydrocodone Bitart ([place] (10/325)) 1 tab Q6 PRN PO PAIN; Start 10/16/17 at 17:00 Levothyroxine Sodium (Synthroid) 50 mcg DAILY@06 PO Last administered on 05:15; Admin Dose 50 MCG; Start 10/17/17 at 06:00 Metoprolol Tartrate (Lopressor) 25 mg BID PO Last administered on 10/18/17 09: 20; Admin Dose 25 MG; Start 10/16/17 at 21:00 Propranolol HCl (Inderal) 10 mg BID PO Last administered on 10/18/17 09:19; Admin Dose 10 MG; Start 10/16/17 at 21:00 Sucralfate (Carafate) 1 gm QID PO Last administered on 10/18/17 09:20; Admin Dose 1 GM; Start 10/16/17 at 17:00 Diagnostic Test (Pha) (Accu-Chek) 1 ea BID XX Last administered on 10/18/17 09 :21; Admin Dose 1 EA; Start 10/16/17 at 21:00 Miscellaneous Information 1 ea NOTE XX ; Start 10/16/17 at 18:00 Glucose (Glutose) 15 gm Q15M PRN PO DECREASED GLUCOSE; Start 10/16/17 at 18:00 Glucose (Glutose) 22.5 gm Q15M PRN PO DECREASED GLUCOSE; Start 10/16/17 at 18: 00 Dextrose (D50w Syringe) 25 ml Q15M PRN IV DECREASED GLUCOSE; Start 10/16/17 at 18:00 Dextrose (D50w Syringe) 50 ml Q15M PRN IV DECREASED GLUCOSE; Start 10/16/17 at 18:00 Glucagon (Glucagen) 1 mg Q15M PRN IM DECREASED GLUCOSE; Start 10/16/17 at 18: 00 Glucose (Glutose) 15 gm Q15M PRN BUCCAL DECREASED GLUCOSE; Start 10/16/17 at 18:00 Pantoprazole Sodium (Protonix) 20 mg BID PO Last administered on 10/18/17 09: 20; Admin Dose 20 MG; Start 10/16/17 at 21:00 Allopurinol (Zyloprim) 300 mg DAILY PO Last administered on 10/18/17 09:20; Admin Dose 300 MG; Start 10/16/17 at 21:00 Potassium Chloride (Micro-K) 8 meq BID PO Last administered on 10/18/17 09:21 ; Admin Dose 8 MEQ; Start 10/17/17 at 21:00; Stop 10/22/17 at 09:00 Diphenhydramine HCl (Benadryl) 50 mg Q4H PRN IV ALLERGIC REACTION; Start at 13:00 Methylprednisolone Sodium Succinate (Solu-Medrol) 60 mg PRN PRN IV ALLERGIC RXN ; Start 10/18/17 at 13:00 Acetaminophen (Tylenol Tab) 650 mg Q4H PRN PO TEMP > 100.6; Start 10/18/17 at 13:00 Acetaminophen (Tylenol Tab) 650 mg Sa@11 PO Last administered on 10/18/17 11: 12; Admin Dose 650 MG; Start 10/18/17 at 11:00; Stop 10/25/17 at 11:01 Diphenhydramine HCl (Benadryl) 50 mg Sa@11 PO Last administered on 10/18/17 11 :12; Admin Dose 50 MG; Start 10/18/17 at 11:00; Stop 10/25/17 at 11:01 Methylprednisolone Sodium Succinate 60 mg 60 mg Sa@11 IV Last administered on 10/18/17 11:12; Admin Dose 60 MG; Start 10/18/17 at 11:00; Stop 10/25/17 at 11: 01 Non-Formulary Medication 1 dose/ Sodium Chloride 100 ml @ 50 mls/hr Sa@12 IVPB ; Start 10/18/17 at 12:00; Stop 10/18/17 at 13:59 Non-Formulary Medication/Sodium Chloride (NS) 100 ml @ 50 mls/hr Sa@12 IVPB ; Start 10/25/17 at 12:00; Stop 10/25/17 at 13:59 GONZALO MCDONALD MD Oct 18, 2017 11:39
[2017-10-18] MEDS ORDERED: CHEMO IVPB SCH (12:00)
[2017-10-18] MEDS ORDERED: SOD CHLORIDE IVPB SCH (12:00)
[2017-10-18 12:11] LABS: 50/50 PTT IMMED 37.4 Sec
[2017-10-18 12:12] LABS: 50/50 PTT 1 HOUR 42.1 Sec
[2017-10-18] MEDS ORDERED: METHYLPREDNISOLONE 125 MG INJ IV PRN (13:00)
[2017-10-18] MEDS ORDERED: DIPHENHYDRAMINE 50 MG INJ IV PRN (13:00)
[2017-10-18] MEDS ORDERED: ACETAMINOPHEN 325 MG TAB PO PRN (13:00)
[2017-10-18] MEDS: ATORVASTATIN 10 MG TAB PO SCH (20:54)
[2017-10-19] VITALS (7 sets, daily range): BP systolic 98–107; BP diastolic 54–59; PULSE 73–87; RESP 17–20
[2017-10-19] MEDS: LEVOTHYROXINE 50 MCG TAB PO SCH (05:34)
[2017-10-19 06:06] LABS: ABNORMAL IP MESSAGE 1; HEMATOCRIT 24.5 % (42.0-52.0); HEMOGLOBIN 8.3 g/dl (14.0-18.0); MEAN CORPUSCULAR HEMOGLOBIN 28.4 pg (29.0-33.0); MEAN CORPUSCULAR HGB CONC 33.9 g/dl (32.0-37.0); MEAN CORPUSCULAR VOLUME 83.9 fl (82.0-101.0); NUCLEATED RED BLOOD CELLS% 0.7 /100WBC (0.0-0.0); POSITIVE DIFF @See below; RED BLOOD COUNT 2.92 10^6/ul (4.70-6.10); RED CELL DISTRIBUTION WIDTH 15.6 % (11.5-14.5); WHITE BLOOD COUNT 19.3 10^3/ul (4.8-10.8)
[2017-10-19 06:29] LABS: INR 1.44; PROTIME 17.8 Sec (11.9-14.9); PT RATIO 1.4
[2017-10-19 06:30] LABS: PARTIAL THROMBOPLASTIN TIME 47.1 Sec (25.0-35.0)
[2017-10-19 06:46] LABS: ALBUMIN 2.9 g/dl (3.3-4.9); ALBUMIN/GLOBULIN RATIO 0.55; BILIRUBIN,INDIRECT 0.3 mg/dl (0-1.1); BILIRUBIN,TOTAL 0.3 mg/dl (0.2-1.3); CALCIUM 8.1 mg/dl (8.4-10.2); CREATININE 3.41 mg/dl (0.61-1.24); POTASSIUM 3.8 mmol/L (3.5-5.1); TOTAL PROTEIN 8.1 g/dl (6.1-8.1); URIC ACID 6.5 mg/dl (3.1-7.9)
[2017-10-19 07:04] LABS: PLATELET COUNT 12 10^3/UL (140-415)
[2017-10-19] MEDS: ALLOPURINOL 300 MG TAB PO SCH (08:18)
[2017-10-19] MEDS: POTASSIUM CHLORIDE (SR) 8 MEQ CAP PO SCH (08:18)
[2017-10-19] MEDS: DOCUSATE SODIUM 250 MG CAP PO SCH (08:18)
[2017-10-19] MEDS: GABAPENTIN 100 MG CAP PO SCH (08:18)
[2017-10-19] MEDS: METOPROLOL 25 MG TAB PO SCH (08:18)
[2017-10-19] MEDS: SUCRALFATE 1 GM TAB PO SCH (08:18)
[2017-10-19] MEDS: FUROSEMIDE 40 MG TAB PO SCH (08:19)
[2017-10-19] MEDS: PROPRANOLOL 10 MG TAB PO SCH (08:19)
[2017-10-19] MEDS: FAMOTIDINE 20 MG TAB PO SCH (08:19)
[2017-10-19] MEDS: DONEPEZIL 5 MG TAB PO SCH (08:19)
[2017-10-19] MEDS: PANTOPRAZOLE SODIUM 20 MG TABEC PO SCH (08:20)
[2017-10-19] MEDS: ACCU-CHEK XX SCH (08:20)
[2017-10-19 08:49] LABS: ANISOCYTOSIS 1+ (0-0); BASOPHILS % (M) 1 % (0-2); BURR CELLS 1+ (0-0); MICROCYTOSIS 1+ (0-0); MONOCYTES % (M) 23 % (0-11); MYELOCYTES % (M) 3 % (0-0); OVALOCYTES 1+ (0-0); PLATELET ESTIMATE SIG DECREASED; POIKILOCYTOSIS 1+ (0-0); POLYCHROMASIA 2+ (0-0); TEAR DROP CELLS 1+ (0-0)
--- NOTE | 2017-10-19 10:35 | PN ---
Date/Time of Note Date/Time of Note DATE: 10/19/17 TIME: 10:26 Assessment/Plan VTE Prophylaxis VTE Prophylaxis Intervention: ambulation Lines/Catheters IV Catheter Type (from Nrs): PICC Line Central line still needed: Yes Urinary Cath still in place: No Assessment/Plan Assessment/Plan Pt had fever from Mylotarg last evening but is fine today. 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 Pt to be discharged and seen in the office tomorrow. Subjective 24 Hr Interval Summary Constitutional: no complaints Exam/Review of Systems Vital Signs Vitals Vital Signs Date Time Temp Pulse Resp B/P Pulse Ox O2 Delivery O2 Flow Rate FiO2 10/19/17 08:50 80 10/19/17 08:04 98.3 18 98/54 95 10/18/17 16:45 Room Air Intake and Output 10/18/17 10/18/17 10/19/17 15:00 23:00 07:00 Intake Total 100 ml 700 ml 600 ml Balance 100 ml 700 ml 600 ml Exam Constitutional: alert, oriented Psych: no complaints Head: normocephalic Eyes: nl conjunctiva Neck: supple Respiratory: clear to auscultation Cardiovascular: regular rate and rhythm Gastrointestinal: non-tender, soft Results Result Diagram: 10/19/17 0538 10/19/17 0538 Results 24 hrs Laboratory Tests Test 10/18/17 21:01 10/19/17 05:38 Bedside Glucose 113 White Blood Count 19.3 #H Red Blood Count 2.92 #L Hemoglobin 8.3 #L Hematocrit 24.5 #L Mean Corpuscular Volume 83.9 Mean Corpuscular Hemoglobin 28.4 L Mean Corpuscular Hemoglobin Concent 33.9 Red Cell Distribution Width 15.6 H Platelet Count 12 *L Mean Platelet Volume Neutrophils % Segmented Neutrophils % (Manual) 31 L Lymphocytes % Lymphocytes % (Manual) 14 L Monocytes % Monocytes % (Manual) 23 H Eosinophils % Basophils % Basophils % (Manual) 1 Myelocytes % (Manual) 3 H Blast Cells % (Manual) 28.0 H Nucleated Red Blood Cells % 0.7 H Neutrophils # Absolute Lymphocytes (Manual) 2.7 Lymphocytes # Monocytes # Absolute Monocytes (Manual) 4.4 H Eosinophils # Basophils # Basophils # (Manual) 0.1 H Myelocytes # 0.5 H Nucleated Red Blood Cells # Platelet Estimate SIG DECREASED Polychromasia 2+ Poikilocytosis 1+ Anisocytosis 1+ Microcytosis 1+ Tear Drop Cells 1+ Ovalocytes 1+ Prothrombin Time 17.8 H Prothrombin Time Ratio 1.4 INR International Normalized Ratio 1.44 Activated Partial Thromboplast Time 47.1 H Sodium Level 139 Potassium Level 3.8 Chloride Level 103 Carbon Dioxide Level 24 Anion Gap 16 Blood Urea Nitrogen 53 H Creatinine 3.41 #H Glucose Level 112 Uric Acid 6.5 Calcium Level 8.1 L Total Bilirubin 0.3 Direct Bilirubin 0.00 Indirect Bilirubin 0.3 Aspartate Amino Transf (AST/SGOT) 22 Alanine Aminotransferase (ALT/SGPT) 22 Alkaline Phosphatase 61 Lactate Dehydrogenase 930 H Total Protein 8.1 Albumin 2.9 L Globulin 5.20 H Albumin/Globulin Ratio 0.55 Medications Medications Current Medications IV Flush (NS 10 ml) 10 ml PRN PRN IV IV PROTOCOL; Start 10/16/17 at 15:00 Atorvastatin Calcium (Lipitor) 10 mg QHS PO Last administered on 10/18/17 20: 54; Admin Dose 10 MG; Start 10/16/17 at 21:00 Docusate Sodium (Colace) 250 mg BID PO Last administered on 10/19/17 08:18; Admin Dose 250 MG; Start 10/16/17 at 21:00 Donepezil HCl (Aricept) 5 mg DAILY PO Last administered on 10/19/17 08:19; Admin Dose 5 MG; Start 10/17/17 at 09:00 Famotidine (Pepcid) 20 mg DAILY PO Last administered on 10/19/17 08:19; Admin Dose 20 MG; Start 10/17/17 at 09:00 Furosemide (Lasix) 40 mg DAILY PO Last administered on 10/19/17 08:19; Admin Dose 40 MG; Start 10/17/17 at 09:00 Gabapentin (Neurontin) 100 mg DAILY PO Last administered on 10/19/17 08:18; Admin Dose 100 MG; Start 10/17/17 at 09:00 Acetaminophen/ Hydrocodone Bitart ([place] (10/325)) 1 tab Q6 PRN PO PAIN; Start 10/16/17 at 17:00 Levothyroxine Sodium (Synthroid) 50 mcg DAILY@06 PO Last administered on 05:34; Admin Dose 50 MCG; Start 10/17/17 at 06:00 Metoprolol Tartrate (Lopressor) 25 mg BID PO Last administered on 10/18/17 09: 20; Admin Dose 25 MG; Start 10/16/17 at 21:00 Propranolol HCl (Inderal) 10 mg BID PO Last administered on 10/18/17 09:19; Admin Dose 10 MG; Start 10/16/17 at 21:00 Sucralfate (Carafate) 1 gm QID PO Last administered on 10/19/17 08:18; Admin Dose 1 GM; Start 10/16/17 at 17:00 Diagnostic Test (Pha) (Accu-Chek) 1 ea BID XX Last administered on 10/19/17 08 :20; Admin Dose 1 EA; Start 10/16/17 at 21:00 Miscellaneous Information 1 ea NOTE XX ; Start 10/16/17 at 18:00 Glucose (Glutose) 15 gm Q15M PRN PO DECREASED GLUCOSE; Start 10/16/17 at 18:00 Glucose (Glutose) 22.5 gm Q15M PRN PO DECREASED GLUCOSE; Start 10/16/17 at 18: 00 Dextrose (D50w Syringe) 25 ml Q15M PRN IV DECREASED GLUCOSE; Start 10/16/17 at 18:00 Dextrose (D50w Syringe) 50 ml Q15M PRN IV DECREASED GLUCOSE; Start 10/16/17 at 18:00 Glucagon (Glucagen) 1 mg Q15M PRN IM DECREASED GLUCOSE; Start 10/16/17 at 18: 00 Glucose (Glutose) 15 gm Q15M PRN BUCCAL DECREASED GLUCOSE; Start 10/16/17 at 18:00 Pantoprazole Sodium (Protonix) 20 mg BID PO Last administered on 10/19/17 08: 20; Admin Dose 20 MG; Start 10/16/17 at 21:00 Allopurinol (Zyloprim) 300 mg DAILY PO Last administered on 10/19/17 08:18; Admin Dose 300 MG; Start 10/16/17 at 21:00 Potassium Chloride (Micro-K) 8 meq BID PO Last administered on 10/19/17 08:18 ; Admin Dose 8 MEQ; Start 10/17/17 at 21:00; Stop 10/22/17 at 09:00 Diphenhydramine HCl (Benadryl) 50 mg Q4H PRN IV ALLERGIC REACTION; Start at 13:00 Methylprednisolone Sodium Succinate (Solu-Medrol) 60 mg PRN PRN IV ALLERGIC RXN ; Start 10/18/17 at 13:00 Acetaminophen (Tylenol Tab) 650 mg Q4H PRN PO TEMP > 100.6 Last administered on 10/18/17 20:52; Admin Dose 650 MG; Start 10/18/17 at 13:00 Acetaminophen (Tylenol Tab) 650 mg Sa@11 PO Last administered on 10/18/17 11: 12; Admin Dose 650 MG; Start 10/18/17 at 11:00; Stop 10/25/17 at 11:01 Diphenhydramine HCl (Benadryl) 50 mg Sa@11 PO Last administered on 10/18/17 11 :12; Admin Dose 50 MG; Start 10/18/17 at 11:00; Stop 10/25/17 at 11:01 Methylprednisolone Sodium Succinate 60 mg 60 mg Sa@11 IV Last administered on 10/18/17 11:12; Admin Dose 60 MG; Start 10/18/17 at 11:00; Stop 10/25/17 at 11: 01 Non-Formulary Medication/Sodium Chloride (NS) 100 ml @ 50 mls/hr Sa@12 IVPB ; Start 10/25/17 at 12:00; Stop 10/25/17 at 13:59 GONZALO MCDONALD MD Oct 19, 2017 10:35
[2017-10-20 09:29] LABS: METAMYELOCYTES %M 17 % (0-0)
[2017-10-20 09:30] LABS: MYELOCYTES % (M) 10 % (0-0); PROMYELOCYTES #M 0.7 10^3/ul (0-0); PROMYELOCYTES % (M) 6 % (0-0)
[2017-10-20 09:32] LABS: PATH REVIEW Y
[2017-10-20 09:35] LABS: POSITIVE DIFF @See below
[2017-10-25] MEDS ORDERED: CHEMO IVPB SCH (12:00)
[2017-10-25] MEDS ORDERED: SOD CHLORIDE IVPB SCH (12:00)
== END 2017-10-19 13:20 | disposition home or self-care (01) | DRG 838 ==
LOC: REC 12:52 → MS4 14:39 → TEL 10-17 22:21
PROVIDERS: ADMIT Internal Medicine Hematology & Oncology; ATTEND Internal Medicine Hematology & Oncology
PROC: 30233N1 Transfusion of Nonautologous Red Blood Cells into Peripheral Vein, Percutaneous Approach (ICD-10-PCS; 2017-10-16)
PROC: 3E04305 Introduction of Other Antineoplastic into Central Vein, Percutaneous Approach (ICD-10-PCS; principal; 2017-10-17)
PROC: 30233N1 Transfusion of Nonautologous Red Blood Cells into Peripheral Vein, Percutaneous Approach (ICD-10-PCS; 2017-10-17)
PROC: 6A550Z2 Pheresis of Platelets, Single (ICD-10-PCS; 2017-10-17)
DX: Z51.11 Encounter for antineoplastic chemotherapy (principal); C92.00 Acute myeloblastic leukemia, not having achieved remission; I42.9 Cardiomyopathy, unspecified; D61.818 Other pancytopenia; I25.10 Atherosclerotic heart disease of native coronary artery without angina pectoris; F17.210 Nicotine dependence, cigarettes, uncomplicated
CPT/HCPCS: 36430; 36569; 71010; 76937; 80053; 82962; 83615; 83735; 84100; 84560; 85025; 85335; 85384; 85610; 85730; 86644; 86850; 86900; 86901; 86920; 86945; J2783; J2930; J7040; P9016; P9035

== ENCOUNTER 2017-10-23 09:09 | Inpatient (IN) | payer MEDICARE, BC ==
[~2017-10-23] VITALS: Ht 177.8 cm; Wt 65.2 kg
[2017-10-23 11:07] VITALS: PULSE 89
[2017-10-23 11:19] VITALS: Ht 177.8 cm; Wt 65.2 kg
[2017-10-23 11:29] VITALS: BP 131/61; RESP 19
[2017-10-23 12:26] VITALS: PULSE 84
--- NOTE | 2017-10-23 14:22 | HP ---
Date/Time of Note Date/Time of Note DATE: 10/23/17 TIME: 14:11 Assessment/Plan VTE Prophylaxis VTE Prophylaxis Intervention: other (thrombocytopenia) Lines/Catheters Central line still needed: Yes Assessment/Plan Assessment/Plan Pt is here to get platelet transfusion and for the second of the two Mylotarg doses. Today the platelets will be transfused and tomorrow he will be given Mylotarg 5 mg. Note that he tolerated the prior dose well except for fever after the infusion that required Tylenol for treatment. After this induction, he will be planned for Mylotarg 2 mg/M2 q4wk. He also had elevated uric acid and got rasburicase last week. I will recheck uric acid here but expect that uric acid will not be elevated. 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 The first dose of Mylotarg was given Dec 2 without problem except fever the first evening. He feels well presently but the plt were <10 yesterday in my office. See admission note from last wee for more complete details. He has history of RI, hypertension, diabetes, hypothyroidism. PMH/Family/Social Social History Smoking Status: Former smoker Exam/Review of Systems Vital Signs Vitals Vital Signs Date Time Temp Pulse Resp B/P Pulse Ox O2 Delivery O2 Flow Rate FiO2 10/23/17 12:26 84 10/23/17 11:29 98.6 19 131/61 96 Exam Constitutional: alert, oriented Psych: no complaints Head: atraumatic, normocephalic Eyes: nl conjunctiva, other (pallor) ENMT: nl external ears & nose Neck: supple Respiratory: clear to auscultation Cardiovascular: regular rate and rhythm Gastrointestinal: nl liver, spleen, soft Extremities: normal pulses Skin: nl turgor Medications Medications see med list GONZALO MCDONALD MD Oct 23, 2017 14:22
[2017-10-23 15:48] LABS: ABNORMAL IP MESSAGE 1; HEMATOCRIT 22.6 % (42.0-52.0); HEMOGLOBIN 7.6 g/dl (14.0-18.0); MEAN CORPUSCULAR HEMOGLOBIN 28.5 pg (29.0-33.0); MEAN CORPUSCULAR HGB CONC 33.6 g/dl (32.0-37.0); MEAN CORPUSCULAR VOLUME 84.6 fl (82.0-101.0); POSITIVE DIFF @See below; RED BLOOD COUNT 2.67 10^6/ul (4.70-6.10); RED CELL DISTRIBUTION WIDTH 15.8 % (11.5-14.5); WHITE BLOOD COUNT 4.7 10^3/ul (4.8-10.8)
[2017-10-23 15:52] VITALS: BP 113/59; RESP 19
[2017-10-23 16:04] LABS: ALBUMIN/GLOBULIN RATIO 0.55; BILIRUBIN,INDIRECT 0.2 mg/dl (0-1.1); BILIRUBIN,TOTAL 0.2 mg/dl (0.2-1.3); CALCIUM 8.3 mg/dl (8.4-10.2); CREATININE 2.47 mg/dl (0.61-1.24); MAGNESIUM 1.3 mg/dl (1.7-2.5); POTASSIUM 4.2 mmol/L (3.5-5.1); TOTAL PROTEIN 8.4 g/dl (6.1-8.1)
[2017-10-23 16:09] LABS: PLATELET COUNT 3 10^3/UL (140-415)
[2017-10-23 16:15] VITALS: PULSE 85
[2017-10-23] MEDS: ALLOPURINOL 300 MG TAB PO SCH (17:52)
[2017-10-23 18:47] LABS: ANISOCYTOSIS 1+ (0-0); BASOPHILS % (M) 1 % (0-2); BLAST% (M) 23.7 % (0-0); MICROCYTOSIS 1+ (0-0); MONOCYTES % (M) 18 % (0-11); PLATELET ESTIMATE SIG DECREASED; PROMYELOCYTES % (M) 1 % (0-0)
[2017-10-23 20:00] VITALS: BP 125/59; PULSE 86; RESP 19
[2017-10-23] MEDS ORDERED: DIPHENHYDRAMINE 25 MG CAP PO ONE (20:00)
[2017-10-23] MEDS ORDERED: ACETAMINOPHEN 325 MG TAB PO ONE (20:00)
[2017-10-23] MEDS ORDERED: HYDROCODONE/APAP (10/325) TAB PO PRN (20:00)
[2017-10-23] MEDS: PROPRANOLOL 10 MG TAB PO SCH (21:00)
[2017-10-23] MEDS: ATORVASTATIN 10 MG TAB PO SCH (21:46)
[2017-10-23] MEDS: DOCUSATE SODIUM 250 MG CAP PO SCH (21:47)
[2017-10-24] VITALS (15 sets, daily range): BP systolic 103–128; BP diastolic 51–70; PULSE 68–90; RESP 18–20
[2017-10-24] MEDS: PANTOPRAZOLE (EC) 40 MG TAB PO SCH (06:28)
[2017-10-24] MEDS: ALLOPURINOL 300 MG TAB PO SCH (08:57)
[2017-10-24] MEDS: FUROSEMIDE 40 MG TAB PO SCH (08:57)
[2017-10-24] MEDS: DONEPEZIL 5 MG TAB PO SCH (08:57)
[2017-10-24] MEDS: DOCUSATE SODIUM 250 MG CAP PO SCH ×2 (09:00→20:26)
[2017-10-24] MEDS ORDERED: GABAPENTIN 100 MG CAP PO ONE (09:00)
[2017-10-24 10:20] LABS: ABNORMAL IP MESSAGE 1; HEMATOCRIT 23.7 % (42.0-52.0); HEMOGLOBIN 7.9 g/dl (14.0-18.0); MEAN CORPUSCULAR HEMOGLOBIN 28.1 pg (29.0-33.0); MEAN CORPUSCULAR HGB CONC 33.3 g/dl (32.0-37.0); MEAN CORPUSCULAR VOLUME 84.3 fl (82.0-101.0); NUCLEATED RED BLOOD CELLS% 0.4 /100WBC (0.0-0.0); POSITIVE DIFF @See below; RED BLOOD COUNT 2.81 10^6/ul (4.70-6.10); RED CELL DISTRIBUTION WIDTH 15.5 % (11.5-14.5); WHITE BLOOD COUNT 4.5 10^3/ul (4.8-10.8)
[2017-10-24 10:39] LABS: PLATELET COUNT 8 10^3/UL (140-415)
[2017-10-24 11:34] LABS: BASOPHILS % (M) 1 % (0-2); GIANT THROMBO% (M) 2 % (0-0); MONOCYTES % (M) 18 % (0-11); MYELOCYTES % (M) 2 % (0-0); PLATELET ESTIMATE SIG DECREASED; POIKILOCYTOSIS 1+ (0-0); POLYCHROMASIA 3+ (0-0); REACTIVE LYMPHOCYTES% (M) 1 % (0-0)
[2017-10-24] MEDS: PROPRANOLOL 10 MG TAB PO SCH ×2 (12:49→20:27)
--- NOTE | 2017-10-24 12:55 | PN ---
Date/Time of Note Date/Time of Note DATE: 10/24/17 TIME: 12:48 Assessment/Plan VTE Prophylaxis VTE Prophylaxis Intervention: ambulation, other ([id number]) Lines/Catheters IV [facility] PICC Line Central line still needed: Yes Assessment/Plan Assessment/Plan PICC line dressing changed and now clean. Platelets given yesterday but very little response. It is likely that he has alloantibodies. Mylotarg is scheduled to be given later today. Note that with the first dose of Mylotarg last week, he had a fever after the drug was given. Will recheck labs in AM. If he is stable, then he can be discharged and follow in the office Friday. Subjective 24 Hr Interval Summary Constitutional: no complaints Exam/Review of Systems Vital Signs Vitals Vital Signs Date Time Temp Pulse Resp B/P Pulse Ox O2 Delivery O2 Flow Rate FiO2 10/24/17 12:03 98.4 100 19 103/56 99 Intake and Output 10/23/17 10/23/17 10/24/17 15:00 23:00 07:00 Intake Total 400 ml 450 ml Output Total 3 ml 2 ml Balance 397 ml 448 ml Exam Constitutional: alert, oriented Psych: no complaints Head: normocephalic Eyes: other (pallor) ENMT: nl external ears & nose Respiratory: clear to auscultation Cardiovascular: regular rate and rhythm Gastrointestinal: non-tender, soft Extremities: normal pulses Neurological: nl mental status, nl speech Results Result Diagram: 10/24/17 0907 10/23/17 1538 Results 24 hrs Laboratory Tests Test 10/23/17 15:38 10/24/17 09:07 White Blood Count 4.7 #L 4.5 L Red Blood Count 2.67 L 2.81 L Hemoglobin 7.6 L 7.9 L Hematocrit 22.6 L 23.7 L Mean Corpuscular Volume 84.6 84.3 Mean Corpuscular Hemoglobin 28.5 L 28.1 L Mean Corpuscular Hemoglobin Concent 33.6 33.3 Red Cell Distribution Width 15.8 H 15.5 H Platelet Count 3 #*L 8 #*L Mean Platelet Volume Neutrophils % Segmented Neutrophils % (Manual) 20 L 11 L Band Neutrophils % (Manual) 3 3 Lymphocytes % Lymphocytes % (Manual) 34 25 Monocytes % Monocytes % (Manual) 18 H 18 H Eosinophils % Basophils % Basophils % (Manual) 1 1 Promyelocytes % (Manual) 1 H Blast Cells % (Manual) 23.7 H 39.0 H Nucleated Red Blood Cells % 0.0 0.4 H Neutrophils # Neutrophils # (Manual) 0.9 L 0.5 L Band Neutrophils # 0.1 0.1 Absolute Lymphocytes (Manual) 1.5 1.1 Lymphocytes # Monocytes # Absolute Monocytes (Manual) 0.8 0.8 Eosinophils # Basophils # Basophils # (Manual) 0.0 0.0 Promyelocytes # 0.0 Nucleated Red Blood Cells # Platelet Estimate SIG DECREASED SIG DECREASED Anisocytosis 1+ Microcytosis 1+ Sodium Level 140 Potassium Level 4.2 Chloride Level 105 Carbon Dioxide Level 25 Anion Gap 14 Blood Urea Nitrogen 45 H Creatinine 2.47 H Glucose Level 142 Uric Acid 8.0 H Calcium Level 8.3 L Magnesium Level 1.3 L Total Bilirubin 0.2 Direct Bilirubin 0.00 Indirect Bilirubin 0.2 Aspartate Amino Transf (AST/SGOT) 18 Alanine Aminotransferase (ALT/SGPT) 16 Alkaline Phosphatase 62 Total Protein 8.4 H Albumin 3.0 L Globulin 5.40 H Albumin/Globulin Ratio 0.55 Reactive Lymphocytes % (Manual) 1 H Myelocytes % (Manual) 2 H Reactive Lymphocytes # 0.0 Myelocytes # 0.0 Giant Platelets 2 H Polychromasia 3+ Poikilocytosis 1+ Medications Medications Current Medications Allopurinol (Zyloprim) 300 mg DAILY PO Last administered on 10/24/17 08:57; Admin Dose 300 MG; Start 10/23/17 at 17:00 Donepezil HCl (Aricept) 5 mg DAILY PO Last administered on 10/24/17 08:57; Admin Dose 5 MG; Start 10/24/17 at 09:00 Docusate Sodium (Colace) 250 mg BID PO Last administered on 10/23/17 21:47; Admin Dose 250 MG; Start 10/23/17 at 21:00 Propranolol HCl (Inderal) 10 mg BID PO ; Start 10/23/17 at 21:00 Pantoprazole (Protonix Tab) 40 mg DAILY@06 PO Last administered on 10/24/17 06 :28; Admin Dose 40 MG; Start 10/24/17 at 06:00 Acetaminophen/ Hydrocodone Bitart ([place] (10/325)) 1 tab Q6 PRN PO PAIN; Start 10/23/17 at 20:00 Atorvastatin Calcium (Lipitor) 10 mg HS PO Last administered on 10/23/17 21:46 ; Admin Dose 10 MG; Start 10/23/17 at 21:00 Furosemide (Lasix) 40 mg DAILY PO Last administered on 10/24/17 08:57; Admin Dose 40 MG; Start 10/24/17 at 09:00 GONZALO MCDONALD MD Oct 24, 2017 12:54
[2017-10-24] MEDS ORDERED: ACETAMINOPHEN 325 MG TAB PO PRN (17:30)
[2017-10-24] MEDS ORDERED: METHYLPREDNISOLONE 125 MG INJ IV PRN (17:30)
[2017-10-24] MEDS ORDERED: DIPHENHYDRAMINE 50 MG INJ IV PRN (17:30)
[2017-10-24] MEDS ORDERED: ACETAMINOPHEN 325 MG TAB PO ONE (20:00)
[2017-10-24] MEDS ORDERED: DIPHENHYDRAMINE 50 MG CAP PO ONE (20:00)
[2017-10-24] MEDS: ATORVASTATIN 10 MG TAB PO SCH (20:27)
[2017-10-24] MEDS ORDERED: METHYLPREDNISOLONE 125 MG INJ IV ONE (20:30)
[2017-10-24] MEDS ORDERED: SODIUM CHLORIDE 0.9% IV ONE (21:00)
[2017-10-24] MEDS ORDERED: [UNRECOGNIZED DRUG - OTHER] IV ONE (21:00)
[2017-10-25] VITALS (8 sets, daily range): BP systolic 92–115; BP diastolic 53–59; PULSE 70–111; RESP 19–21
[2017-10-25 05:50] LABS: ABNORMAL IP MESSAGE 1; HEMATOCRIT 22.9 % (42.0-52.0); HEMOGLOBIN 7.6 g/dl (14.0-18.0); MEAN CORPUSCULAR HGB CONC 33.2 g/dl (32.0-37.0); MEAN CORPUSCULAR VOLUME 84.5 fl (82.0-101.0); NUCLEATED RED BLOOD CELLS% 0.6 /100WBC (0.0-0.0); POSITIVE DIFF @See below; RED BLOOD COUNT 2.71 10^6/ul (4.70-6.10); RED CELL DISTRIBUTION WIDTH 15.7 % (11.5-14.5); WHITE BLOOD COUNT 3.3 10^3/ul (4.8-10.8)
[2017-10-25 05:59] LABS: ALBUMIN 3.1 g/dl (3.3-4.9); ALBUMIN/GLOBULIN RATIO 0.6; BILIRUBIN,INDIRECT 0.3 mg/dl (0-1.1); BILIRUBIN,TOTAL 0.3 mg/dl (0.2-1.3); CALCIUM 8.3 mg/dl (8.4-10.2); CREATININE 2.41 mg/dl (0.61-1.24); POTASSIUM 4.4 mmol/L (3.5-5.1); TOTAL PROTEIN 8.2 g/dl (6.1-8.1); URIC ACID 7.2 mg/dl (3.1-7.9)
[2017-10-25 06:14] LABS: PLATELET COUNT 4 10^3/UL (140-415)
[2017-10-25] MEDS: PANTOPRAZOLE (EC) 40 MG TAB PO SCH (06:34)
[2017-10-25] MEDS: DONEPEZIL 5 MG TAB PO SCH (09:10)
[2017-10-25] MEDS: FUROSEMIDE 40 MG TAB PO SCH (09:10)
[2017-10-25] MEDS: ALLOPURINOL 300 MG TAB PO SCH (09:11)
[2017-10-25] MEDS: PROPRANOLOL 10 MG TAB PO SCH (09:11)
[2017-10-25] MEDS: DOCUSATE SODIUM 250 MG CAP PO SCH (09:11)
[2017-10-25 11:22] LABS: LYMPHOCYTES # 0.7 10^3/ul (0.8-2.9); METAMYELOCYTES %M 2 % (0-0); MONOCYTE # 0.4 10^3/ul (0.3-0.9); MONOCYTES % (M) 11 % (0-11); MYELOCYTES % (M) 6 % (0-0); PROMYELOCYTES % (M) 1 % (0-0); REACTIVE LYMPHOCYTES% (M) 4 % (0-0)
--- NOTE | 2017-10-25 18:21 | PDOCDIS ---
Discharge Instructions CONDITION Patient Condition: Guarded HOME CARE INSTRUCTIONS: Diet Instructions: Regular ACTIVITY: Activity Restrictions: Rest between Activity Avoid heavy lifting Do not Drive Do not operate Machinery No Weight Bearing Bathing Restrictions: Shower FOLLOW UP/APPOINTMENTS Follow-up Plan See Dr. Rao Friday10/27/17 at 9 am. JOEY ROBLEDO MD Oct 25, 2017 18:21
--- NOTE | 2017-10-25 18:27 | PN ---
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 s/p Myelotarg dose two given here and he tolerated well. Thrombocytopenia - is severe. He did not respond to platelet transfusion on admission. Today, he did have a response. I'm concerned about the low platelets and the risk of bleeding. I wanted patient to stay here for monitoring and transfusion as needed. Their plan has been to go home and they want to leave despite the risk, they will bring him back ZEV if there is any bleeding. They will follow up with Dr. Rao Friday am at 9am (10/27/17) Discussed with patient and with son who translated. Discussed with nurse. Problems: Subjective 24 Hr Interval Summary Free Text/Dictation I was called several times about this patient and his low platelets. Last night Myelotarg was given and he did well with it. This am, platelets were low and we tried another transfusion to which he did have a response with platelet 17K after. He has no c/o. Denies bleeding or fatigue. Exam/Review of Systems Vital Signs Vitals Vital Signs Date Time Temp Pulse Resp B/P Pulse Ox O2 Delivery O2 Flow Rate FiO2 10/25/17 16:00 84 10/25/17 15:42 98.2 19 115/59 95 10/24/17 23:49 Room Air Intake and Output 10/24/17 10/24/17 10/25/17 15:00 23:00 07:00 Intake Total 500 ml 100 ml Balance 500 ml 100 ml Exam NAD Tip of nose is red Clear bilaterally Soft non tender No edema No petechiae. Results Result Diagram: 10/25/17 1636 10/25/17 0437 Results 24 hrs Laboratory Tests Test 10/25/17 04:37 10/25/17 16:36 White Blood Count 3.3 #L Red Blood Count 2.71 L Hemoglobin 7.6 L Hematocrit 22.9 L Mean Corpuscular Volume 84.5 Mean Corpuscular Hemoglobin 28.0 L Mean Corpuscular Hemoglobin Concent 33.2 Red Cell Distribution Width 15.7 H Platelet Count 4 #*L 17 #*L Mean Platelet Volume Neutrophils % Segmented Neutrophils % (Manual) 28 L Band Neutrophils % (Manual) 4 Lymphocytes % Lymphocytes % (Manual) 21 Reactive Lymphocytes % (Manual) 4 H Monocytes % Monocytes % (Manual) 11 Eosinophils % Basophils % Metamyelocytes % (manual) 2 H Myelocytes % (Manual) 6 H Promyelocytes % (Manual) 1 H Blast Cells % (Manual) 23.0 H Nucleated Red Blood Cells % 0.6 H Neutrophils # Neutrophils # (Manual) 0.9 L Band Neutrophils # 0.1 Absolute Lymphocytes (Manual) 0.6 L Lymphocytes # 0.7 L Reactive Lymphocytes # 0.1 H Monocytes # 0.4 Absolute Monocytes (Manual) 0.3 Eosinophils # Basophils # Metamyelocytes # 0.0 Myelocytes # 0.1 H Promyelocytes # 0.0 Blastocytes # 0.0 Nucleated Red Blood Cells # Sodium Level 138 Potassium Level 4.4 Chloride Level 103 Carbon Dioxide Level 25 Anion Gap 14 Blood Urea Nitrogen 49 H Creatinine 2.41 H Glucose Level 136 Uric Acid 7.2 Calcium Level 8.3 L Total Bilirubin 0.3 Direct Bilirubin 0.00 Indirect Bilirubin 0.3 Aspartate Amino Transf (AST/SGOT) 19 Alanine Aminotransferase (ALT/SGPT) 22 Alkaline Phosphatase 61 Total Protein 8.2 H Albumin 3.1 L Globulin 5.10 H Albumin/Globulin Ratio 0.60 Medications Medications Current Medications Allopurinol (Zyloprim) 300 mg DAILY PO Last administered on 10/25/17 09:11; Admin Dose 300 MG; Start 10/23/17 at 17:00 Donepezil HCl (Aricept) 5 mg DAILY PO Last administered on 10/25/17 09:10; Admin Dose 5 MG; Start 10/24/17 at 09:00 Docusate Sodium (Colace) 250 mg BID PO Last administered on 10/25/17 09:11; Admin Dose 250 MG; Start 10/23/17 at 21:00 Propranolol HCl (Inderal) 10 mg BID PO Last administered on 10/25/17 09:11; Admin Dose 10 MG; Start 10/23/17 at 21:00 Pantoprazole (Protonix Tab) 40 mg DAILY@06 PO Last administered on 10/25/17 06 :34; Admin Dose 40 MG; Start 10/24/17 at 06:00 Acetaminophen/ Hydrocodone Bitart ([place] (10)) 1 tab Q6 PRN PO PAIN; Start 10/23/17 at 20:00 Atorvastatin Calcium (Lipitor) 10 mg HS PO Last administered on 10/24/17 20:27 ; Admin Dose 10 MG; Start 10/23/17 at 21:00 Furosemide (Lasix) 40 mg DAILY PO Last administered on 10/25/17 09:10; Admin Dose 40 MG; Start 10/24/17 at 09:00 Acetaminophen (Tylenol Tab) 650 mg Q4H PRN PO FEVER >/= 100 F; Start 10/24/17 at 17:30 Diphenhydramine HCl (Benadryl) 50 mg Q6H PRN IV ALLERGIC REACTION; Start at 17:30 JOEY ROBLEDO MD Oct 25, 2017 18:27
== END 2017-10-25 19:28 | disposition home or self-care (01) | DRG 839 ==
LOC: TEL 10:07 → MS4 10:16
PROVIDERS: ADMIT Internal Medicine Hematology & Oncology; ATTEND Internal Medicine Hematology & Oncology
PROC: 6A551Z2 Pheresis of Platelets, Multiple (ICD-10-PCS; 2017-10-23)
PROC: 3E03305 Introduction of Other Antineoplastic into Peripheral Vein, Percutaneous Approach (ICD-10-PCS; principal; 2017-10-24)
DX: Z51.11 Encounter for antineoplastic chemotherapy (principal); C95.00 Acute leukemia of unspecified cell type not having achieved remission; D69.6 Thrombocytopenia, unspecified; E11.9 Type 2 diabetes mellitus without complications; I25.2 Old myocardial infarction; I10 Essential (primary) hypertension; E03.9 Hypothyroidism, unspecified; D46.9 Myelodysplastic syndrome, unspecified
CPT/HCPCS: 36430; 80053; 83735; 84560; 85025; 85049; 86644; 86850; 86900; 86901; 86945; J2930; P9035

== ENCOUNTER 2018-01-12 21:47 | Emergency (ER) | END 2018-01-12 23:55 | disposition left against medical advice (07) ==

== ENCOUNTER 2018-01-14 05:17 | Inpatient (IN) | END 2018-01-17 16:40 | disposition home or self-care (01) | DRG 835 ==

== ENCOUNTER 2018-02-03 17:24 | Inpatient (IN) | END 2018-02-04 17:40 | disposition home or self-care (01) | DRG 835 ==

== ENCOUNTER 2018-02-11 09:37 | Observation (INO) | END 2018-02-12 13:06 | disposition home or self-care (01) ==

== ENCOUNTER 2018-02-18 12:14 | Observation (INO) | END 2018-02-19 16:10 | disposition hospice, home (50) ==

== ENCOUNTER 2018-02-21 18:20 | Inpatient (IN) | END 2018-02-24 01:20 | disposition EXP | DRG 150 ==